=== PATIENT | female | born 1945 | race Caucasian/White ===

== ENCOUNTER 2017-02-16 13:35 | Emergency (ER) | payer OTHER, MEDICARE ==
[2017-02-16 13:44] VITALS: BP 121/67; PULSE 98; TEMP 98.1; BMI 47.0
--- NOTE | 2017-02-16 14:16 | PDOC ---
History of Present Illness <Debra CarcamoNikko - Last Filed: 02/16/17 14:48> <Gilmer Bose - Last Filed: 02/17/17 09:17> - General Chief Complaint: Injury Stated Complaint: LT HAND INJURY Time Seen by Provider: 02/16/17 14:08 Past History - Past Medical History Anemia: No Asthma: No Cancer: No Cardiac Disorders: Yes (ATRIAL FIBRILLATION) CVA: No COPD: Yes CHF: No Dementia: No Diabetes: No GI Disorders: No Disorders: No HTN: Yes Hypercholesterolemia: Yes Liver Disease: No Seizures: No Thyroid Disease: Yes (LEFT THYROID LUMP) - Surgical History Abdominal Surgery: No Appendectomy: No Cardiac Surgery: No Cholecystectomy: No Lung Surgery: No Neurologic Surgery: No Orthopedic Surgery: Yes (BILATERAL KNEE REPLACEMENT) - Immunization History Immunization Up to Date: No - Psycho/Social/Smoking Cessation Hx Anxiety: No Suicidal Ideation: No Smoking History: Former smoker Have you smoked in the past 12 months: No Number of Cigarettes Smoked Daily: 0 If you are a former smoker, when did you quit?: 11 YRS Cigars Per Day: 0 Information on smoking cessation initiated: No Hx Alcohol Use: No Drug/Substance Use Hx: No Substance Use Type: None Hx Substance Use Treatment: No <Debra CarcamoNikko - Last Filed: 02/16/17 14:48> <Gilmer Bose - Last Filed: 02/17/17 09:17> - Past Medical History Allergies/Adverse Reactions: Allergies Allergy/AdvReac Type Severity Reaction Status Date / Time Penicillins Allergy Severe Swelling Verified 02/16/17 13:44 Home Medications: Ambulatory Orders Ascorbate Calcium [Vitamin C] 1,000 mg PO DAILY 08/30/15 Cholecalciferol (Vitamin D3) [Vitamin D3] 1,000 unit PO BID 08/30/15 Cyanocobalamin [Vitamin B12 -] 1,000 mcg PO DAILY 08/30/15 Diltiazem [Cardizem -] 30 mg PO TID 08/30/15 Losartan Potassium 100 mg PO DAILY 08/30/15 Oxycodone/APAP [Percocet - Must Order Individual Components] 1 each NR QID PRN 08/30/15 Simvastatin 10 mg PO HS 08/30/15 Warfarin Na [Coumadin -] 10 mg PO ASDIR #0 08/30/15 *Physical Exam - Vital Signs Last Vital Signs Temp Pulse Resp BP Pulse Ox 98.1 F 98 H 20 121/67 97 02/16/17 13:41 02/16/17 13:41 02/16/17 13:41 02/16/17 13:41 02/16/17 13:41 <Ángel Carcamo - Last Filed: 02/16/17 14:48> - Vital Signs Last Vital Signs Temp Pulse Resp BP Pulse Ox 98.1 F 98 H 20 121/67 97 02/16/17 13:41 02/16/17 13:41 02/16/17 13:41 02/16/17 13:41 02/16/17 13:41 <Gilmer Bose - Last Filed: 02/17/17 09:17> Procedures - Laceration/Wound Repair Left Hand Wound Length: 2.6 to 5.0 cm Wound Explored: clean Wound's Depth, Shape: superficial Irrigated w/ Saline: Yes Anesthesia: 1% Lidocaine Amount of Anesthetic (ccs): 7 Wound Repaired With: Sutures Suture Size/Type: 5:0, nylon Number of Sutures: 13 Sterile Dressing Applied: Yes (bacitracin, xeroform, 4x4 and soft form) <Ángel Carcamo - Last Filed: 02/16/17 14:48> Medical Decision Making - Medical Decision Making 02/16/17 14:11 71 yo F, multiple comorbidities including afib on coumadin, recent INR was 3 as per pt, here w/ lac to dorsum of L hand after attempting to prevent spouse from falling this afternoon. Pt stable and in NAD w/ >3cm superficial lac to dorsum of L hand. No active bleeding at present -lac repair -tetanus UTD -wound check in 2 days 02/16/17 14:49 S/p lac repair. Pt discharged in stable conditions 02/16/17 14:51 <Ángel Carcamo - Last Filed: 02/16/17 14:48> - Medical Decision Making The patient was seen and evaluated in conjunction with JAMES Carcamo under my direct supervision, ancillary studies were reviewed. I agree with the plan as outlined by JAMES Carcamo . <Gilmer Bose - Last Filed: 02/17/17 09:17> *DC/Admit/Observation/Transfer <Ángel Carcamo - Last Filed: 02/16/17 14:48> <Gilmer Bose - Last Filed: 02/17/17 09:17> Diagnosis at time of Disposition: Hand laceration Qualifiers: Encounter type: initial encounter Foreign body presence: unspecified Laterality : left Qualified Code(s): S61.412A - Laceration without foreign body of left hand, initial encounter - Discharge Dispostion Disposition: HOME Condition at time of disposition: Good - Patient Instructions Printed Discharge Instructions: DI for Laceration Repair Additional Instructions: Keep wound covered and dry for 24 hrs. After that, you can let water run over wound daily to prevent excessive scabbing over suture knots. Apply bacitracin or neosporin to wound once a day until sutures are removed Return to ED in 48 hrs for redness, discharge or fever Sutures are removed in 7 days
== END 2017-02-16 14:59 | disposition home or self-care (01) ==
LOC: JER 13:35
PROC: 0HQGXZZ Repair Left Hand Skin, External Approach (ICD-10-PCS; principal; 2017-02-16)
DX: S61.412A Laceration without foreign body of left hand, initial encounter (principal); W51.XXXA Accidental striking against or bumped into by another person, initial encounter; Y93.F9 Activity, other caregiving; Y92.012 Bathroom of single-family (private) house as the place of occurrence of the external cause; Y99.8 Other external cause status; I48.91 Unspecified atrial fibrillation; Z79.01 Long term (current) use of anticoagulants; I10 Essential (primary) hypertension; J44.9 Chronic obstructive pulmonary disease, unspecified; E78.00 Pure hypercholesterolemia, unspecified
CPT/HCPCS: 12002-25; 99282-25

== ENCOUNTER 2017-02-23 12:24 | Emergency (ER) | payer OTHER, MEDICARE ==
[2017-02-23 12:48] VITALS: BP 107/55; PULSE 100; TEMP 97.6; BMI 40.7
--- NOTE | 2017-02-23 13:19 | PDOC ---
Suture Removal/Wound Check HPI - History of Present Illness Chief Complaint: Suture/Staple Removal(Here) Stated Complaint: STAPLE REMOVAL Time Seen by Provider: 02/23/17 12:47 History Source: Yes: Patient Exam Limitations: Yes: No Limitations Treated at: [facility] [place] [facility] Date of Last ED visit: 02/16/17 Past History - Past Medical History Allergies/Adverse Reactions: Allergies Penicillins Allergy (Severe, Verified 02/23/17 12:43) Swelling Home Medications: Ambulatory Orders Ascorbate Calcium [Vitamin C] 1,000 mg PO DAILY 08/30/15 Cholecalciferol (Vitamin D3) [Vitamin D3] 1,000 unit PO BID 08/30/15 Cyanocobalamin [Vitamin B12 -] 1,000 mcg PO DAILY 08/30/15 Diltiazem [Cardizem -] 30 mg PO TID 08/30/15 Losartan Potassium 100 mg PO DAILY 08/30/15 Oxycodone/APAP [Percocet - Must Order Individual Components] 1 each NR QID PRN 08/30/15 Simvastatin 10 mg PO HS 08/30/15 Warfarin Na [Coumadin -] 10 mg PO ASDIR #0 08/30/15 - Immunization History Immunizations Up to Date: No - Social History Smoking Status: Never smoked Number of Ciarettes Per Day: 0 Cigars Per Day: 0 Suture Removal/Wound Check PE - Physical Exam Laceration/Wound Check Symptoms: reports: Pain (mild) Comments: 02/23/17 22:45 left hand dorsal side with sutures intact healing well mild erythema around the edges of the wound will remove the sutures *Review of Systems - Review of Systems Able to Perform ROS?: Yes Constitutional: No: Symptoms Reported HEENTM: No: Symptoms Reported Respiratory: No: Symptoms reported Cardiac (ROS): No: Symptoms Reported ABD/GI: No: Symptoms Reported : No: Symptoms Reported Musculoskeletal: No: Symptoms Reported Integumentary: Yes: Symptoms Reported Procedures - Additional Procedures Progress: 02/23/17 22:44 left hand dorsal side with half sharpe shaped laceration healing well 10 sutures removed without diffuculty steri strips placed and bandage placed Medical Decision Making - Medical Decision Making 02/23/17 22:46 cc: suture removal left hand nv intact pain 3/10 sutures removed steri strips placed and bandage placed *DC/Admit/Observation/Transfer Diagnosis at time of Disposition: Visit for suture removal - Discharge Dispostion Disposition: HOME Condition at time of disposition: Improved - Referrals Referrals: Mike Boykin MD [Primary Care Provider] - - Patient Instructions Additional Instructions: keep dry the tape will peel off in about 3 days if it falls off before that is ok just put a bandaid over the wound apply a thin layer of bacitracin once a day follow with your primary care doctor next week as needed
== END 2017-02-23 13:19 | disposition home or self-care (01) ==
LOC: JERFT 12:24
DX: Z48.02 Encounter for removal of sutures (principal)
CPT/HCPCS: 99281-25

== ENCOUNTER 2017-06-20 13:35 | Inpatient (IN) | payer OTHER, MEDICARE ==
[2017-06-20 13:52] VITALS: BMI 46.3
--- NOTE | 2017-06-20 14:28 | PDOC ---
History of Present Illness - General Chief Complaint: Blood Pressure Problem Stated Complaint: RT LEG PAIN Time Seen by Provider: 06/20/17 14:27 - History of Present Illness Initial Comments: 06/20/17 15:59 72 year old female with PMH of Afib (on coumadin), OA, RA, Sjogren's , HTN, COPD , and venous insufficiency presenting with two and a half weeks of right lower extremity weeping, swelling, and erythema. She states that her right leg started becoming itchy and she was scratching it very frequently but then began becoming erythematous, swollen, and started weeping. She has been soaking through towels and sheets at home with non-bloody, non-malodorous, clear fluid. She does admit that she has not been eating as well as she usually does because she has been busy taking her to appointments but has been staying hydrated. She denies fevers, chills, nausea, vomiting, diarrhea, or sick symptoms. She has had an infection in the same leg before that she states was a staph infection that was not MRSA and needed what seems to be debridement. Her PCP is Dr. Workman. 06/20/17 16:30 06/20/17 16:49 Past History - Past Medical History Allergies/Adverse Reactions: Allergies Allergy/AdvReac Type Severity Reaction Status Date / Time Penicillins Allergy Severe Swelling Verified 06/20/17 13:52 Home Medications: Ambulatory Orders Ascorbate Calcium [Vitamin C] 1,000 mg PO DAILY 08/30/15 Cholecalciferol (Vitamin D3) [Vitamin D3] 1,000 unit PO BID 08/30/15 Cyanocobalamin [Vitamin B12 -] 1,000 mcg PO DAILY 08/30/15 Diltiazem [Cardizem -] 30 mg PO TID 08/30/15 Losartan Potassium 100 mg PO DAILY 08/30/15 Oxycodone/APAP [Percocet - Must Order Individual Components] 1 each NR QID PRN 08/30/15 Simvastatin 10 mg PO HS 08/30/15 Furosemide [Lasix -] 40 mg PO DAILY 06/20/17 Guaifenesin [Mucinex] 600 mg PO DAILY 06/20/17 Multivit-Min/FA/Lycopen/Lutein [Centrum Silver Tablet] 1 each PO DAILY 06/20/17 Potassium Chloride [Klor-Con 10] 10 meq PO DAILY 06/20/17 Warfarin Na [Coumadin -] 7 mg PO ASDIR 06/20/17 Anemia: No Asthma: No Cancer: No Cardiac Disorders: Yes (ATRIAL FIBRILLATION) CVA: No COPD: Yes CHF: No Dementia: No Diabetes: No GI Disorders: No Disorders: No HTN: Yes Hypercholesterolemia: Yes Liver Disease: No Seizures: No Thyroid Disease: Yes (LEFT THYROID LUMP) Other medical history: rheumatoid, osteoarthritis, osteopenia - Surgical History Abdominal Surgery: No Appendectomy: No Cardiac Surgery: No Cholecystectomy: No Lung Surgery: No Neurologic Surgery: No Orthopedic Surgery: Yes (BILATERAL KNEE REPLACEMENT) - Immunization History Immunization Up to Date: No - Psycho/Social/Smoking Cessation Hx Anxiety: No Suicidal Ideation: No Smoking History: Former smoker Have you smoked in the past 12 months: No Number of Cigarettes Smoked Daily: 0 If you are a former smoker, when did you quit?: 1985 Cigars Per Day: 0 Information on smoking cessation initiated: No Hx Alcohol Use: No Drug/Substance Use Hx: No Substance Use Type: None Hx Substance Use Treatment: No Review of Systems - Review of Systems Constitutional: Yes: Loss of Appetite. No: Chills, Diaphoresis, Fever HEENTM: No: Blurred Vision, Recent change in vision, Double Vision Respiratory: Yes: SOB with Exertion. No: Cough, Orthopnea, Shortness of Breath Cardiac (ROS): Yes: Edema, Irregular Heart Rate. No: Chest Pain ABD/GI: Yes: Poor Appetite. No: Abdominal Distended, Constipated, Diarrhea, Nausea, Vomiting, Indigestion : Yes: Frequency, Other (urge incontinence at baseline). No: Dysuria, Discharge Integumentary: Yes: Change in Color, Lesions Neurological: No: Headache, Numbness, Paresthesia, Tingling Endocrine: No: Excessive Sweating, Flushing *Physical Exam - Vital Signs Last Vital Signs Temp Pulse Resp BP Pulse Ox 97.8 F 110 H 20 80/54 94 L 06/20/17 13:37 06/20/17 13:37 06/20/17 13:37 06/20/17 13:37 06/20/17 13:37 - Physical Exam General Appearance: Yes: Nourished, Appropriately Dressed. No: Apparent Distress HEENT: positive: EOMI, JOSIE, Normal ENT Inspection, Normal Voice Neck: positive: Trachea midline, Normal Thyroid, Supple. negative: Tender, Rigid Respiratory/Chest: positive: Lungs Clear. negative: Chest Tender, Normal Breath Sounds (Delayed expiratory phase but no ) Cardiovascular: positive: Regular Rhythm, Regular Rate, Edema, JVD (JVD to the mid neck). negative: S1, S2, Murmur Gastrointestinal/Abdominal: positive: Normal Bowel Sounds, Flat, Soft. negative : Tender, Organomegaly, Pulsatile Mass Musculoskeletal: positive: Other (Leg changes per skin exam section). negative : Normal Inspection, CVA Tenderness Integumentary: positive: Erythema, Rash, Swelling, Other (BL LE exhibiting signifcant swelling with 1-2+ pitting edema. RLE with 2 + pitting edema, erythema, and significant dependent weeping in the calf) Neurologic: positive: Fully Oriented, Alert. negative: Motor Strength 5/5 ( Lower extremity limited range secondary to pain. ) ED Treatment Course - LABORATORY CBC & Chemistry Diagram: 06/20/17 14:54 06/20/17 14:54 Medical Decision Making - Medical Decision Making 72 year old female with complicated medical including venous insufficiency history presenting with weeping RLE wound concerning for cellulitis in the setting of tachycardia and hypotension. Although this is most concernign for cellulitis, this could quite possibly be advancement of her venous insuficiency on top of some overall vascular congestion/ CHF given her elevated JVP/ JVD and bilateral leg swelling. She has also admitted to decreased PO intake lately in the setting of recent life stressors. Given her history of RLE infection requiring debridement, she should be admitted for IV antibiotic treatment after blood cultures are obtained. 06/20/17 16:10 06/20/17 21:31 CBC WNL, repeat vitals pending, Lactic Acid WNL, started on Clindamycin and admitted to Dr. De La Fuente. 06/20/17 21:50 *DC/Admit/Observation/Transfer Diagnosis at time of Disposition: Cellulitis - Discharge Dispostion Condition at time of disposition: Stable Admit: Yes - Attestations Physician Attestion: 06/20/17 21:51 I, Dr. Elinor Bernardo, attest that this document has been prepared under my direction and personally reviewed by me in its entirety. I further attest, that it accurately reflects all work, treatment, procedures and medical decision -making performed by me.
[2017-06-20 15:07] LABS: BASOPHIL 0.6 % (0-2.0); EOSINOPHIL 3.5 % (0-4.5); MCH 28.4 pg (25.7-33.7); MCHC 32.2 g/dl (32.0-36.0); MEAN CELL VOLUME 88.2 fl (80-96); MEAN PLT VOLUME 7.9 fl (7.5-11.1); NEUTROPHILS 72.1 % (42.8-82.8); PLATELET COUNT 247 K/MM3 (134-434); WHITE BLOOD COUNT 7.7 K/mm3 (4.0-10.0)
[2017-06-20 15:33] LABS: ALBUMIN 3.1 g/dl (3.4-5.0); ANION GAP 6 (8-16); BILIRUBIN,TOTAL 0.4 mg/dL (0.2-1.0); CALCIUM 8.2 mg/dL (8.5-10.1); CO2 30 mmol/L (21-32); CREATININE 0.8 mg/dL (0.55-1.02); GLUCOSE,RANDOM 92 mg/dL (74-106); SGOT/AST 24 U/L (15-37); SGPT/ALT 24 U/L (12-78); TOT PROT 6.1 g/dl (6.4-8.2)
[2017-06-20 15:35] LABS: ALK PHOS 119 U/L (45-117)
[2017-06-20] MEDS ORDERED: SODIUM CHLORIDE 0.9% 1000 ML INFUS.BAG IV ONE (15:55)
--- NOTE | 2017-06-20 16:34 | PDOC ---
Attending Attestation - Resident Resident Name: Elinor Bernardo - ED Attending Attestation I have performed the following: I have examined & evaluated the patient, The case was reviewed & discussed with the resident, I agree w/resident's findings & plan, Exceptions are as noted - HPI HPI: 06/20/17 16:31 Agree with the resident's HPI as documented in the electronic medical record. - Physicial Exam PE: 06/20/17 16:32 Agree with the resident's physical examination as documented in the electronic medical record. - Medical Decision Making 06/20/17 16:32 72-year-old female with history of Sjogren's disease, rheumatoid arthritis, atrial fibrillation and hyperlipidemia who presents to the emergency Department with complaints of 2 week history of pain and erythema as well as weeping from the right lower extremity. She is hypotensive in the emergency department with a heart rate of 110 in A. fib. Differential diagnosis includes but is not limited to: Cellulitis, DVT, sepsis, dehydration, toxic/metabolic derangement. Plan: 1. Labs 2. Plain film to rule out air in the soft tissue 3. Culture 4. IV fluid hydration 5. Pain management 6. Admit 7. Observe and reevaluate
[2017-06-20] MEDS ORDERED: OXYCODONE/APAP 5/325MG COMBO TABLET PO STA (16:57)
[2017-06-20] MEDS ORDERED: OXYCODONE/APAP 5/325MG COMBO TABLET ONE (17:08)
[2017-06-20] MEDS ORDERED: CLINDAMYCIN 600MG PREMIX IVPB 50 ML IVPB SCH (18:00)
[2017-06-20] MEDS ORDERED: CLINDAMYCIN 600MG PREMIX IVPB 50 ML IVPB ONE (18:06)
[2017-06-20] MEDS ORDERED: WARFARIN NA 5 MG TABLET (UD) PO SCH (21:15)
[2017-06-20] MEDS ORDERED: WARFARIN NA 5 MG TABLET (UD) ONE (21:25)
[2017-06-20] MEDS ORDERED: WARFARIN NA 1 MG TABLET (FP) ONE (21:25)
--- NOTE | 2017-06-20 21:51 | PN ---
Teaching Attending Note Name of Resident: Danna Mireles ATTENDING PHYSICIAN STATEMENT I saw and evaluated the patient. I reviewed the resident's note and discussed the case with the resident. I agree with the resident's findings and plan as documented. SUBJECTIVE: Presented to ED c/o RLE swelling and serous drainage overnight. OBJECTIVE: Morbidly obese, irritated. CVS: RRR, S1, S2 Lungs: CTA Abd: Obese, BS+ Ext: RLE- venous stasis dermatitis with serous drainage and tender to palpation. LLE chronic venous stasis dermatitis. CBCD WBC 7.7 K/mm3 (4.0-10.0) D 06/20/17 14:54 RBC 4.96 M/mm3 (3.60-5.2) 06/20/17 14:54 Hgb 14.1 GM/dL (10.7-15.3) 06/20/17 14:54 Hct 43.8 % (32.4-45.2) 06/20/17 14:54 MCV 88.2 fl (80-96) 06/20/17 14:54 MCHC 32.2 g/dl (32.0-36.0) 06/20/17 14:54 RDW 14.0 % (11.6-15.6) 06/20/17 14:54 Plt Count 247 K/MM3 (134-434) D 06/20/17 14:54 MPV 7.9 fl (7.5-11.1) D 06/20/17 14:54 CMP Sodium 140 mmol/L (136-145) 06/20/17 14:54 Potassium 4.5 mmol/L (3.5-5.1) 06/20/17 14:54 Chloride 104 mmol/L (98-107) 06/20/17 14:54 Carbon Dioxide 30 mmol/L (21-32) 06/20/17 14:54 Anion Gap 6 (8-16) L 06/20/17 14:54 BUN 25 mg/dL (7-18) H D 06/20/17 14:54 Creatinine 0.8 mg/dL (0.55-1.02) 06/20/17 14:54 Creat Clearance w eGFR > 60 (>60) 06/20/17 14:54 Random Glucose 92 mg/dL (74-106) 06/20/17 14:54 Calcium 8.2 mg/dL (8.5-10.1) L 06/20/17 14:54 Total Bilirubin 0.4 mg/dL (0.2-1.0) D 06/20/17 14:54 AST 24 U/L (15-37) 06/20/17 14:54 ALT 24 U/L (12-78) 06/20/17 14:54 Alkaline Phosphatase 119 U/L (45-117) H D 06/20/17 14:54 Total Protein 6.1 g/dl (6.4-8.2) L 06/20/17 14:54 Albumin 3.1 g/dl (3.4-5.0) L 06/20/17 14:54 ASSESSMENT AND PLAN: Chronic venous insufficiency without ulcers but with chronic cellulitis and serous drainaged Compression dressing, change q6-8h elevate legs no indication for antibiotics Patient has appointment with wound care on Saturday Social work consult for home help and possible VNS for dressing change as patient is limited by her body habitus. Hypotension with h/o HTN hold BP medications Lasix 40mg daily if SBP>120
[2017-06-20] MEDS ORDERED: dilTIAZem HCL 30 MG TABLET (FP) PO SCH (22:00)
[2017-06-20] MEDS ORDERED: WARFARIN NA 5 MG, WARFARIN NA 2 MG PO SCH (22:00)
--- NOTE | 2017-06-20 22:07 | HP ---
CHIEF COMPLAINT: Right leg swelling and drainage PCP: Dr. Workman HISTORY OF PRESENT ILLNESS: 72yo woman with PMH of Afib (on Coumadin), OA, RA, Sjogren's syndrome, HTN, COPD , and chronic venous insufficiency without ulcerations who presents with worsening cellutitis of R LE. The patient states that her R leg has gradually become erythematous and swollen. She has noticed increasing clear, "pee-colored " drainage over the past few days, but denies any malodor or purulency. She has had difficulty with sufficiently cleaning and maintaining the wound. She has an appointment with Wound Care on Saturday, but decided to come to the ED this evening due to increase serous drainage. She reports have a She denies any LE ulceration, but does report having cellulitis of RLE in the past that was Staph positive. Patient denies fever, chills, nausea, vomitting. No SOB, chest pain, pressure. No dysuria. ER course was notable for: (1) received 1x dose Clindamycin Recent Travel: no PAST MEDICAL HISTORY: -Afib -RA - postive RF -OA, hip b/l -Fibromyalgia -Sjogren's syndrome -HTN -COPD -sleep apnea - on CPAP PAST SURGICAL HISTORY: b/l knee replacement - 2006 Social History: Smoking: quit in 1984 Alcohol: no Drugs: no Family History: non-contributory Allergies: Penicillins Allergy (Severe, Verified 06/20/17 13:52) --> swelling HOME MEDICATIONS: Home Medications Medication Instructions Recorded Ascorbate Calcium [Vitamin C] 1,000 mg PO DAILY 08/30/15 Cholecalciferol (Vitamin D3) 1,000 unit PO BID 08/30/15 [Vitamin D3] Cyanocobalamin [Vitamin B12 -] 1,000 mcg PO DAILY 08/30/15 Diltiazem [Cardizem -] 30 mg PO TID 08/30/15 Losartan Potassium 100 mg PO DAILY 08/30/15 Oxycodone/APAP [Percocet - Must 1 each NR QID PRN 08/30/15 Order Individual Components] Simvastatin 10 mg PO HS 08/30/15 Furosemide [Lasix -] 40 mg PO DAILY 06/20/17 Guaifenesin [Mucinex] 600 mg PO DAILY 06/20/17 Multivit-Min/FA/Lycopen/Lutein 1 each PO DAILY 06/20/17 [Centrum Silver Tablet] Potassium Chloride [Klor-Con 10] 10 meq PO DAILY 06/20/17 Warfarin Na [Coumadin -] 7 mg PO ASDIR 06/20/17 REVIEW OF SYSTEMS CONSTITUTIONAL: Absent: fever, chills, diaphoresis, generalized weakness, malaise, loss of appetite, weight change HEENT: Absent: rhinorrhea, nasal congestion, throat pain, throat swelling, difficulty swallowing, mouth swelling, ear pain, eye pain, visual changes CARDIOVASCULAR: +lightheadedness, peripheral edema Absent: chest pain, syncope, palpitations, irregular heart rate, lightheadedness , peripheral edema RESPIRATORY: Absent: cough, shortness of breath, dyspnea with exertion, orthopnea, wheezing, stridor, hemoptysis GASTROINTESTINAL: Absent: abdominal pain, abdominal distension, nausea, vomiting, diarrhea, constipation, melena, hematochezia GENITOURINARY: Absent: dysuria, frequency, urgency, hesitancy, hematuria, flank pain, genital pain MUSCULOSKELETAL: Absent: myalgia, arthralgia, joint swelling, back pain, neck pain SKIN: +R LE wound Absent: rash, itching, pallor HEMATOLOGIC/IMMUNOLOGIC: Absent: easy bleeding, easy bruising, lymphadenopathy, frequent infections ENDOCRINE: Absent: unexplained weight gain, unexplained weight loss, heat intolerance, cold intolerance NEUROLOGIC: Absent: headache, focal weakness or paresthesias, dizziness, unsteady gait, seizure, mental status changes, bladder or bowel incontinence PSYCHIATRIC: Absent: anxiety, depression, suicidal or homicidal ideation, hallucinations. PHYSICAL EXAMINATION Vital Signs - 24 hr 06/20/17 06/20/17 06/20/17 13:37 14:45 15:39 Temperature 97.8 F Pulse Rate 110 H Pulse Rate [ Right Radial] Respiratory 20 Rate Blood Pressure 80/54 Blood Pressure 96/74 [Left Arm] O2 Sat by Pulse 94 L 97 Oximetry (%) 06/20/17 06/20/17 22:19 23:00 Temperature 97.4 F L 97.8 F Pulse Rate 100 H Pulse Rate [ 93 H Right Radial] Respiratory 20 20 Rate Blood Pressure 106/54 Blood Pressure 99/57 [Left Arm] O2 Sat by Pulse 97 94 L Oximetry (%) GENERAL: Awake, alert, and fully oriented, in no acute distress. HEAD: Normal with no signs of trauma. EYES: PERRLA, EOMI, sclera anicteric, conjunctiva clear EARS, NOSE, THROAT: Oropharynx clear without exudates. Moist mucous membranes. NECK: supple, no cervical LAD LUNGS: CTAB, no wheezes, and no crackles HEART: distant heart sounds, RRR, normal S1 and S2 without murmur, rub or gallop. ABDOMEN: Obese, soft, NTND LOWER EXTREMITIES: bilateral venous stasis dermatitis and 2+ pitting edema, RLE with serous drainage and ttp NEUROLOGICAL: Grossly intact, but not formally tested. Normal speech PSYCHIATRIC: Cooperative. Good eye contact. Appropriate mood and affect. SKIN: Warm, dry, normal turgor Laboratory Results - last 24 hr 06/20/17 06/20/17 06/20/17 14:54 14:54 15:59 WBC 7.7 D RBC 4.96 Hgb 14.1 Hct 43.8 MCV 88.2 MCH 28.4 MCHC 32.2 RDW 14.0 Plt Count 247 D MPV 7.9 D Neutrophils % 72.1 D Lymphocytes % 13.7 D Monocytes % 10.1 Eosinophils % 3.5 Basophils % 0.6 Sodium 140 Potassium 4.5 Chloride 104 Carbon Dioxide 30 Anion Gap 6 L BUN 25 H D Creatinine 0.8 Creat Clearance w eGFR > 60 Random Glucose 92 Lactic Acid 1.2 Calcium 8.2 L Total Bilirubin 0.4 D AST 24 ALT 24 Alkaline Phosphatase 119 H D B-Natriuretic Peptide 1202.38 H Total Protein 6.1 L Albumin 3.1 L CXR 06/21/17: Preliminary assessment - cardiomegaly, possible congestive changes. Awaiting final report. EKG : ASSESSMENT/PLAN: 72yo morbidly obese woman (BMI 46) with PMH of Afib (on Coumadin), COPD, HTN, and chronic venous insufficiency with h/o cellulitis who presents with RLE serous drainage, found to be hypotensive, and admitted for observation for further monitoring and management. #Chronic venous insufficiency with serous drainage -Compression dressing, change q6-8h -Maintain leg elevation -No further abx required -Pt to go to Wound care appt on 06/24 -Consult Social work for VNS services for wound dressing change (patient limited by body habitus) -Blood Cx pending -Placed on Contact precaution until MRSA r/o #hypotension with h/o HTN -NS 250cc bolus -BP checks q4h -Fall risk precautions -Hold home BP meds (diltiazem, losartan) -Resume Lasix if SBP>120 -ECHO ordered #Morbid Obesity -Hgb A1c pending #Afib -Continue home Coumadin 7mg PO daily #F/E/N -Consider additional IVF bolus if remains hypotensive -Electrolytes wnl -Na restricted diet #Dispo -Admit for observation -Social work assessment for VNS qualification d/w Dr. Chang and medical team SOFI SMART MD PGY-1 Visit type - Emergency Visit Emergency Visit: Yes ED Registration Date: 06/20/17 Care time: The patient presented to the Emergency Department on the above date and was hospitalized for further evaluation of their emergent condition. - New Patient This patient is new to me today: Yes Date on this admission: 06/20/17 - Critical Care Critical Care patient: No
[2017-06-20] MEDS: ATORVASTATIN CA 10 MG TABLET (FP) PO SCH (22:08)
[2017-06-20] MEDS ORDERED: SODIUM CHLORIDE 250 ML IV STA (22:14)
[2017-06-21] MEDS ORDERED: ACETAMINOPHEN 325 MG TABLET (FP) PO ONE ×2 (00:56→08:15)
[2017-06-21] MEDS ORDERED: oxyCODONE HCL 5 MG TABLET PO ONE (08:15)
[2017-06-21 08:35] LABS: PROTHROMBIN TIME (PATIENT) 59.2 SEC (9.98-11.88)
[2017-06-21 08:38] LABS: ACTIVATED PTT 64.4 SECONDS (26.9-34.4)
[2017-06-21 08:49] LABS: INR 5.2 (0.82-1.09)
--- NOTE | 2017-06-21 09:22 | EKG ---
Test Reason : Blood Pressure : / mmHG Vent. Rate : 100 BPM Atrial Rate : 081 BPM P-R Int : 000 ms QRS Dur : 088 ms QT Int : 356 ms P-R-T Axes : 000 042 023 degrees QTc Int : 459 ms ATRIAL FIBRILLATION ABNORMAL ECG WHEN COMPARED WITH ECG OF 17-NOV-2015 17:06, ST NO LONGER DEPRESSED IN LATERAL LEADS NONSPECIFIC T WAVE ABNORMALITY NO LONGER EVIDENT IN LATERAL LEADS Confirmed by ABRAHAM REYES, EFRAIN ([id number] on 06/21/2017 9:22:23 AM Referred By: Confirmed By:EFRAIN ROSARIO MD
[2017-06-21] MEDS ORDERED: FUROSEMIDE 40 MG TABLET (FP) PO SCH (10:00)
[2017-06-21] MEDS ORDERED: LOSARTAN POTASSIUM 50 MG TABLET (FP) PO SCH (10:00)
--- NOTE | 2017-06-21 10:45 | CON.CARD ---
Cardiology Consult (text) - Consultation Consultation Note: - History of Present Illness Chief Complaint: came to ER for social work eval for help at home History of Present Illness: 72 yo female who came to ER for social work eval for help at home she says she has chronic le edema, erythema, weeping and says this is stable she has no new sxs and denies sob, cp, palps, dizzy, loc, pnd, orthopnea she is refusing any further inpt testing/meds and says now that her home services are set up she is leaving in [address] adams for cardio PMH: morbid obesity severe DJD/OA HTN HPL GERD - Alcohol/Substance Use Hx Alcohol Use: No - Smoking History Smoking history: Never smoked Have you smoked in the past 12 months: No Aproximately how many cigarettes per day: 0 Home Medications - Allergies Allergies/Adverse Reactions: Allergies Allergy/AdvReac Type Severity Reaction Status Date / Time Penicillins Allergy Severe Swelling Verified 06/20/17 13:52 - Home Medications Home Medications: Ambulatory Orders Home Medications Medication Instructions Recorded Ascorbate Calcium [Vitamin C] 1,000 mg PO DAILY 08/30/15 Cholecalciferol (Vitamin D3) 1,000 unit PO BID 08/30/15 [Vitamin D3] Cyanocobalamin [Vitamin B12 -] 1,000 mcg PO DAILY 08/30/15 Diltiazem [Cardizem -] 30 mg PO TID 08/30/15 Losartan Potassium 100 mg PO DAILY 08/30/15 Oxycodone/APAP [Percocet - Must 1 each NR QID PRN 08/30/15 Order Individual Components] Simvastatin 10 mg PO HS 08/30/15 Furosemide [Lasix -] 40 mg PO DAILY 06/20/17 Guaifenesin [Mucinex] 600 mg PO DAILY 06/20/17 Multivit-Min/FA/Lycopen/Lutein 1 each PO DAILY 06/20/17 [Centrum Silver Tablet] Potassium Chloride [Klor-Con 10] 10 meq PO DAILY 06/20/17 Warfarin Na [Coumadin -] 7 mg PO ASDIR 06/20/17 Vital Signs: Vital Signs Period Temp Pulse Resp BP Sys/William Pulse Ox Last 24 Hr 97.4 F-98.7 F 93-130 20-20 80-121/54-74 94-97 - Other Data Labs, Other Data: Laboratory Last Values WBC 7.7 K/mm3 (4.0-10.0) D 06/20/17 14:54 RBC 4.96 M/mm3 (3.60-5.2) 06/20/17 14:54 Hgb 14.1 GM/dL (10.7-15.3) 06/20/17 14:54 Hct 43.8 % (32.4-45.2) 06/20/17 14:54 MCV 88.2 fl (80-96) 06/20/17 14:54 MCH 28.4 pg (25.7-33.7) 06/20/17 14:54 MCHC 32.2 g/dl (32.0-36.0) 06/20/17 14:54 RDW 14.0 % (11.6-15.6) 06/20/17 14:54 Plt Count 247 K/MM3 (134-434) D 06/20/17 14:54 MPV 7.9 fl (7.5-11.1) D 06/20/17 14:54 Neutrophils % 72.1 % (42.8-82.8) D 06/20/17 14:54 Lymphocytes % 13.7 % (8-40) D 06/20/17 14:54 Monocytes % 10.1 % (3.8-10.2) 06/20/17 14:54 Eosinophils % 3.5 % (0-4.5) 06/20/17 14:54 Basophils % 0.6 % (0-2.0) 06/20/17 14:54 INR 5.20 (0.82-1.09) H* D 06/21/17 07:45 PTT (Actin FS) 64.4 SECONDS (26.9-34.4) H 06/21/17 07:45 Sodium 140 mmol/L (136-145) 06/20/17 14:54 Potassium 4.5 mmol/L (3.5-5.1) 06/20/17 14:54 Chloride 104 mmol/L (98-107) 06/20/17 14:54 Carbon Dioxide 30 mmol/L (21-32) 06/20/17 14:54 Anion Gap 6 (8-16) L 06/20/17 14:54 BUN 25 mg/dL (7-18) H D 06/20/17 14:54 Creatinine 0.8 mg/dL (0.55-1.02) 06/20/17 14:54 Creat Clearance w eGFR > 60 (>60) 06/20/17 14:54 Random Glucose 92 mg/dL (74-106) 06/20/17 14:54 Hemoglobin A1c % 6.0 % (4.8-6.0) 06/21/17 07:45 Lactic Acid 1.2 mmol/L (0.4-2.0) 06/20/17 15:59 Calcium 8.2 mg/dL (8.5-10.1) L 06/20/17 14:54 Total Bilirubin 0.4 mg/dL (0.2-1.0) D 06/20/17 14:54 AST 24 U/L (15-37) 06/20/17 14:54 ALT 24 U/L (12-78) 06/20/17 14:54 Alkaline Phosphatase 119 U/L (45-117) H D 06/20/17 14:54 B-Natriuretic Peptide 1202.38 pg/ml (5-125) H 06/20/17 14:54 Total Protein 6.1 g/dl (6.4-8.2) L 06/20/17 14:54 Albumin 3.1 g/dl (3.4-5.0) L 06/20/17 14:54 ecg 06/20/17: afib, vr 100, nl qtc, no ischemic changes cxr: ?chf Assessment/Plan HTN: -bp occasionally on low side -pt reports that she has been on her current med regimen as outpt for years w/o issues -cont home meds chronic Afib: -rate controlled on current meds (of note pt is refusing to take her home meds now, says she will take when gets home soon) -cont coumadin per INR HPL: -cont statin venous insuff/le edema: -chronic condition, stable per pt -she is currently refusing any inpt treatment or testing -cont home po lasix -?ID consult if pt allows pt says she is leaving this AM, outpt f/u with dr adams for cardio
[2017-06-21] MEDS: MULTIVITAMINS THER W-MINERALS COMBO TABLET (FP) PO SCH (10:51)
[2017-06-21] MEDS: guaiFENesin 600 MG TABLET.ER (FP) PO SCH (10:51)
[2017-06-21] MEDS: POTASSIUM CHLORIDE TABS 10 MEQ TABLET.ER (FP) PO SCH (10:53)
[2017-06-21] MEDS ORDERED: CLINDAMYCIN 600MG PREMIX IVPB 50 ML IVPB SCH (11:30)
--- NOTE | 2017-06-21 11:34 | PN ---
Progress Note (short form) - Note Progress Note: ID consult dictated imp/reccd 72 year old female admitted from home with 2 weeks of progressive erythema and serous drainage from her RLE no fevers +venous stasis history of RA and Sjogren but on no meds at this time severe pen allergy - Blows up cellulitis of RLE with venous stasis clindamycin/probiotics cultures Dr santos to see hopefully home in am patient agreeable to this plan d/w Dr Griffith Problem List - Problems (1) Cellulitis Code(s): L03.90 - CELLULITIS, UNSPECIFIED (2) Penicillin allergy Code(s): Z88.0 - ALLERGY STATUS TO PENICILLIN
[2017-06-21] MEDS: LACTOBACILLUS ACIDOPHILUS 1 EACH TAB (FP) PO SCH ×2 (12:13→21:29)
--- NOTE | 2017-06-21 13:45 | PN ---
Progress Note, Physician Chief Complaint: Mrs Torres complains of headache and constipation. Also says she has a developing rash but refuses to show me (patient prefers to be examined by a female physician) - Current Medication List Current Medications: Active Medications Atorvastatin Calcium (Lipitor -) 10 mg PO HS [facility] Last Admin: 06/20/17 22:08 Dose: 10 mg Guaifenesin (Mucinex -) 600 mg PO DAILY [facility] Last Admin: 06/21/17 10:51 Dose: 600 mg Clindamycin Phosphate (Cleocin 600 Mg Premix Ivpb -) 50 mls @ 100 mls/hr IVPB Q8H-IV BELL Lactobacillus Acidophilus (Bacid -) 1 tab PO BID [facility] Last Admin: 06/21/17 12:13 Dose: 1 tab Multivitamins/Minerals (Theragran-M) 1 each PO DAILY [facility] Last Admin: 06/21/17 10:51 Dose: 1 each Potassium Chloride (K-Dur -) 10 meq PO DAILY [facility] Last Admin: 06/21/17 10:53 Dose: Not Given - Objective Vital Signs: Vital Signs Temperature 98.7 F 06/21/17 09:00 Pulse Rate 130 H 06/21/17 09:00 Respiratory Rate 20 06/21/17 09:00 Blood Pressure 121/65 06/21/17 09:00 O2 Sat by Pulse Oximetry (%) 94 L 06/20/17 23:00 Constitutional: Yes: No Distress, Calm, Obese Cardiovascular: Yes: Pulse Irregular. No: Tachycardia, Gallop, Murmur, Rub Respiratory: Yes: Regular, CTA Bilaterally. No: Rales, Rhonchi, Wheezes Gastrointestinal: Yes: Normal Bowel Sounds, Soft. No: Distention, Tenderness Extremities: Yes: WNL Edema: No Labs: INR, PTT INR 5.20 (0.82-1.09) H* D 06/21/17 07:45 Problem List - Problems (1) Cellulitis Assessment/Plan: -patient presents with cellulitis -seen by ID, on clindamycin -worsening rash, patient requesting Dr Fraga to return to evaluate Code(s): L03.90 - CELLULITIS, UNSPECIFIED (2) HTN (hypertension) Assessment/Plan: -low normal -monitor Code(s): I10 - ESSENTIAL (PRIMARY) HYPERTENSION (3) Atrial fibrillation Assessment/Plan: -supratherapeutic INR -cardiology following and managing Code(s): I48.91 - UNSPECIFIED ATRIAL FIBRILLATION Qualifiers: Atrial fibrillation type: chronic Qualified Code(s): I48.2 - Chronic atrial fibrillation (4) Supratherapeutic INR Assessment/Plan: -hold coumadin Code(s): R79.1 - ABNORMAL COAGULATION PROFILE (5) Drug rash Assessment/Plan: -suspect drug rash -ID to come evaluate per patient request Code(s): L27.0 - GEN SKIN ERUPTION DUE TO DRUGS AND MEDS TAKEN INTERNALLY (6) Obesity hypoventilation syndrome Assessment/Plan: -continue CPAP Code(s): E66.2 - MORBID (SEVERE) OBESITY WITH ALVEOLAR HYPOVENTILATION
[2017-06-21] MEDS: ACETAMINOPHEN 325 MG TABLET (FP) PO PRN ×2 (14:12→21:29)
[2017-06-21] MEDS: POLYETHYLENE GLYCOL 3350 119 GM BTL PO SCH ×2 (14:16→21:30)
[2017-06-21] MEDS ORDERED: diphenhydrAMINE HCL 25 MG CAPSULE (FP) PO PRN (14:57)
[2017-06-21] MEDS: VANCOMYCIN 1,250 MG in DEXTROSE 5%-WATER - 250 ML IVPB SCH (17:00)
--- NOTE | 2017-06-21 17:05 | CONSULT ---
Consult - Alcohol/Substance Use Hx Alcohol Use: No - Smoking History Smoking history: Former smoker Have you smoked in the past 12 months: No Aproximately how many cigarettes per day: 0 If you are a former smoker, when did you quit?: 1984 Home Medications - Allergies Allergies/Adverse Reactions: Allergies Allergy/AdvReac Type Severity Reaction Status Date / Time Penicillins Allergy Severe Swelling Verified 06/20/17 13:52 clindamycin Allergy Mild Rash Verified 06/21/17 14:52 - Home Medications Home Medications: Ambulatory Orders Ascorbate Calcium [Vitamin C] 1,000 mg PO DAILY 08/30/15 Cholecalciferol (Vitamin D3) [Vitamin D3] 1,000 unit PO BID 08/30/15 Cyanocobalamin [Vitamin B12 -] 1,000 mcg PO DAILY 08/30/15 Diltiazem [Cardizem -] 30 mg PO TID 08/30/15 Losartan Potassium 100 mg PO DAILY 08/30/15 Oxycodone/APAP [Percocet - Must Order Individual Components] 1 each NR QID PRN 08/30/15 Simvastatin 10 mg PO HS 08/30/15 Furosemide [Lasix -] 40 mg PO DAILY 06/20/17 Guaifenesin [Mucinex] 600 mg PO DAILY 06/20/17 Multivit-Min/FA/Lycopen/Lutein [Centrum Silver Tablet] 1 each PO DAILY 06/20/17 Potassium Chloride [Klor-Con 10] 10 meq PO DAILY 06/20/17 Warfarin Na [Coumadin -] 7 mg PO ASDIR 06/20/17 Physical Exam Vital Signs: Vital Signs Temperature 98.2 F 06/21/17 15:28 Pulse Rate 128 H 06/21/17 15:28 Respiratory Rate 20 06/21/17 15:28 Blood Pressure 102/51 06/21/17 15:28 O2 Sat by Pulse Oximetry (%) 94 L 06/20/17 23:00 Assessment/Plan VAscular Surgery 72 year old female with PMH of Afib (on coumadin), OA, RA, Sjogren's , HTN, COPD , and venous insufficiency presenting with two and a half weeks of right lower extremity weeping, swelling, and erythema. She states that her right leg started becoming itchy and she was scratching it very frequently but then began becoming erythematous, swollen, and started weeping. She has been soaking through towels and sheets at home with non-bloody, non-malodorous, clear fluid. She does admit that she has not been eating as well as she usually does because she has been busy taking her to appointments but has been staying hydrated. She denies fevers, chills, nausea, vomiting, diarrhea, or sick symptoms. She has had an infection in the same leg before that she states was a staph infection that was not MRSA and needed what seems to be debridement. Her PCP is Dr. Workman. PE Head - NC/At Lung - CTA Heart - RRR abd - soft,nt,nd ext - warm, pink. Venous stasis changes to funes. Weeping from right ankle. A/P Bilateral lower ext venous stasis. Weeping from RLE 1. Compression with PITER bandages from foot to knee. 2. pt needs to come to vascular/wound care clinic on saturday . Can then do reflux studies, laser therapy to veins to cure pt. Please make appt prior to DC -- [phone] Jose santos dO
--- NOTE | 2017-06-21 17:43 | HOSP ---
Physical Examination Vital Signs: Vital Signs Temperature 98.2 F 06/21/17 15:28 Pulse Rate 128 H 06/21/17 15:28 Respiratory Rate 20 06/21/17 15:28 Blood Pressure 102/51 06/21/17 15:28 O2 Sat by Pulse Oximetry (%) 94 L 06/20/17 23:00 Hospitalist Encounter Assessment: Called by RN for difficult IV access. 22g IV catheter placed left hand. Please re-call if needed.
[2017-06-21] MEDS: DOCUSATE SODIUM 100 MG CAPSULE (FP) PO SCH (21:29)
[2017-06-21] MEDS: ATORVASTATIN CA 10 MG TABLET (FP) PO SCH (21:44)
--- NOTE | 2017-06-21 21:53 | HOSP ---
Subjective - Review of Symptoms Events since last encounter: Called by the nurse that patient has a hx Afib. on Cardizem po 30mg tid at home will continue, will give 1st dose now. will recheck vitals post cardizem( 1 hour post) Vital Signs Temperature 98.1 F 06/21/17 19:00 Pulse Rate 127 H 06/21/17 19:00 Respiratory Rate 20 06/21/17 19:00 Blood Pressure 102/70 06/21/17 19:00 O2 Sat by Pulse Oximetry (%) 92 L 06/21/17 13:00 CBCD WBC 7.7 K/mm3 (4.0-10.0) D 06/20/17 14:54 RBC 4.96 M/mm3 (3.60-5.2) 06/20/17 14:54 Hgb 14.1 GM/dL (10.7-15.3) 06/20/17 14:54 Hct 43.8 % (32.4-45.2) 06/20/17 14:54 MCV 88.2 fl (80-96) 06/20/17 14:54 MCHC 32.2 g/dl (32.0-36.0) 06/20/17 14:54 RDW 14.0 % (11.6-15.6) 06/20/17 14:54 Plt Count 247 K/MM3 (134-434) D 06/20/17 14:54 MPV 7.9 fl (7.5-11.1) D 06/20/17 14:54 CMP Sodium 140 mmol/L (136-145) 06/20/17 14:54 Potassium 4.5 mmol/L (3.5-5.1) 06/20/17 14:54 Chloride 104 mmol/L (98-107) 06/20/17 14:54 Carbon Dioxide 30 mmol/L (21-32) 06/20/17 14:54 Anion Gap 6 (8-16) L 06/20/17 14:54 BUN 25 mg/dL (7-18) H D 06/20/17 14:54 Creatinine 0.8 mg/dL (0.55-1.02) 06/20/17 14:54 Creat Clearance w eGFR > 60 (>60) 06/20/17 14:54 Random Glucose 92 mg/dL (74-106) 06/20/17 14:54 Calcium 8.2 mg/dL (8.5-10.1) L 06/20/17 14:54 Total Bilirubin 0.4 mg/dL (0.2-1.0) D 06/20/17 14:54 AST 24 U/L (15-37) 06/20/17 14:54 ALT 24 U/L (12-78) 06/20/17 14:54 Alkaline Phosphatase 119 U/L (45-117) H D 06/20/17 14:54 Total Protein 6.1 g/dl (6.4-8.2) L 06/20/17 14:54 Albumin 3.1 g/dl (3.4-5.0) L 06/20/17 14:54 Current Medications Generic Name Dose Route Start Last Admin Trade Name Freq PRN Reason Stop Dose Admin Acetaminophen 650 mg 06/21/17 13:44 06/21/17 21:29 Tylenol - PO 650 mg Q4H PRN Administration FEVER OR PAIN Atorvastatin Calcium 10 mg 06/20/17 22:00 06/21/17 21:44 Lipitor - PO 10 mg HS BELL Administration Diphenhydramine HCl 25 mg 06/21/17 14:57 06/21/17 15:12 Benadryl - PO 25 mg Q6H PRN Administration FOR ITCHING Docusate Sodium 100 mg 06/21/17 22:00 06/21/17 21:29 Colace - PO 100 mg BID BELL Administration Guaifenesin 600 mg 06/21/17 10:00 06/21/17 10:51 Mucinex - PO 600 mg DAILY BELL Administration Vancomycin HCl 1,250 mg/ 250 mls @ 166.667 mls/hr 06/21/17 15:15 06/21/17 17:00 Dextrose IVPB 166.667 mls/hr DAILY BELL Administration Protocol Lactobacillus Acidophilus 1 tab 06/21/17 11:30 06/21/17 21:29 Bacid - PO 1 tab BID BELL Administration Multivitamins/Minerals 1 each 06/21/17 10:00 06/21/17 10:51 Theragran-M PO 1 each DAILY BELL Administration Polyethylene Glycol 17 gm 06/21/17 13:45 06/21/17 21:30 Miralax (For Daily Use) - PO 17 gm BID BELL Administration Potassium Chloride 10 meq 06/21/17 10:00 06/21/17 10:53 K-Dur - PO Not Given DAILY [facility]END[facility] TO [facility] Home Medications Medication Instructions Recorded Ascorbate Calcium [Vitamin C] 1,000 mg PO DAILY 08/30/15 Cholecalciferol (Vitamin D3) 1,000 unit PO BID 08/30/15 [Vitamin D3] Cyanocobalamin [Vitamin B12 -] 1,000 mcg PO DAILY 08/30/15 Diltiazem [Cardizem -] 30 mg PO TID 08/30/15 Losartan Potassium 100 mg PO DAILY 08/30/15 Oxycodone/APAP [Percocet - Must 1 each NR QID PRN 08/30/15 Order Individual Components] Simvastatin 10 mg PO HS 08/30/15 Furosemide [Lasix -] 40 mg PO DAILY 06/20/17 Guaifenesin [Mucinex] 600 mg PO DAILY 06/20/17 Multivit-Min/FA/Lycopen/Lutein 1 each PO DAILY 06/20/17 [Centrum Silver Tablet] Potassium Chloride [Klor-Con 10] 10 meq PO DAILY 06/20/17 Warfarin Na [Coumadin -] 7 mg PO ASDIR 06/20/17 Physical Examination Vital Signs: Vital Signs Temperature 98.1 F 06/21/17 19:00 Pulse Rate 127 H 06/21/17 19:00 Respiratory Rate 20 06/21/17 19:00 Blood Pressure 102/70 06/21/17 19:00 O2 Sat by Pulse Oximetry (%) 92 L 06/21/17 13:00
[2017-06-21] MEDS: dilTIAZem HCL 30 MG TABLET (FP) PO SCH (22:48)
[2017-06-22] MEDS: dilTIAZem HCL 30 MG TABLET (FP) PO SCH ×3 (06:21→21:39)
[2017-06-22] MEDS: ACETAMINOPHEN 325 MG TABLET (FP) PO PRN ×2 (06:36→14:28)
[2017-06-22 07:53] LABS: BASOPHIL 0.2 % (0-2.0); EOSINOPHIL 2.8 % (0-4.5); MCH 28.5 pg (25.7-33.7); MCHC 32.3 g/dl (32.0-36.0); MEAN CELL VOLUME 88.3 fl (80-96); MEAN PLT VOLUME 8.3 fl (7.5-11.1); NEUTROPHILS 86.6 % (42.8-82.8); PLATELET COUNT 227 K/MM3 (134-434); RDW 14.1 % (11.6-15.6); WHITE BLOOD COUNT 15.1 K/mm3 (4.0-10.0)
[2017-06-22 08:10] LABS: ANION GAP 10 (8-16); CALCIUM 8.5 mg/dL (8.5-10.1); CO2 28 mmol/L (21-32); GLUCOSE,RANDOM 105 mg/dL (74-106); MAGNESIUM 1.9 mg/dL (1.8-2.4)
[2017-06-22 08:12] LABS: CREATININE 0.8 mg/dL (0.55-1.02)
[2017-06-22 08:31] LABS: INR 3.83 (0.82-1.09); PROTHROMBIN TIME (PATIENT) 43.3 SEC (9.98-11.88)
--- NOTE | 2017-06-22 09:34 | CONS ---
DATE OF CONSULTATION: DATE OF DICTATION: 06/21/2017 REQUESTED BY: En Griffith MD HISTORY OF PRESENT ILLNESS: This is a 72-year-old woman with a history of atrial fibrillation, osteoarthritis, rheumatoid arthritis, Sjogren. She is currently not on any medications for her Sjogren or rheumatoid arthritis. She has a history of venostasis of both her legs and prior right lower extremity cellulitis many years ago with MRSA about 10 years back who comes to the emergency room with complaints of worsening erythema and swelling of her right lower extremity for the last 2-1/2 weeks. She is having a lot of clear drainage. She is having worsening erythema. She has no fevers or chills. She denies any trauma to the leg. She has not had any scratches from any pets. She has had no insect bites. She has not had any water exposure. PAST MEDICAL HISTORY: Notable for atrial fibrillation, rheumatoid arthritis. She has been on in the past but has not tolerated. Osteoarthritis, fibromyalgia, Sjogren syndrome, hypertension, COPD, sleep apnea. She is status post bilateral knee replacement. She has a history of MRSA infection to the leg about 10 years ago to the right lower extremity. FAMILY HISTORY: Noncontributory. SOCIAL HISTORY: She stopped smoking many years ago. She lives at home with her , but he is currently at the custodial. ALLERGIES: She is allergic to PENICILLIN which resulted in swelling of her entire body. MEDICATIONS AT HOME: Include: 1. Vitamin C. 2. Vitamin D. 3. B12. 4. Cardizem. 5. Losartan. 6. Percocet. 7. Simvastatin. 8. Lasix. 9. Mucinex. 10. Centrum vitamins. 11. K-Radha. 12. Warfarin. 13. She about 2 months back did a 5-day course of azithromycin for sinusitis. REVIEW OF SYSTEMS: She currently notes edema and swelling of her leg. She reports the erythema has improved overnight. She denies any fevers, chills, nausea, vomiting, diarrhea, or dysuria. PHYSICAL EXAMINATION: General: She is a pleasant woman. Vital Signs: She weighs 300 pounds, her temperature is 98.7, pulse is 130, blood pressure is 121/65, respiratory rate is 20. HEENT: She is normocephalic. Her eyes are anicteric. Neck: Supple. Heart: Regular rate and rhythm. Abdomen: Soft, nontender. Extremities: Notable for venostasis of both legs. The right leg is erythematous with some erythema of the right lower inner thigh just above her knee. She has well-healed bilateral total knee replacement scars. She has some weeping and serous drainage of the leg which is diffusely erythematous. LABORATORIES: Notable for a white count of 7.7, hemoglobin 14.1, platelets are 247. INR is 5.2. BUN is 25 and creatinine is 0.8. ASSESSMENT: In summary, this is a 72-year-old woman admitted with cellulitis of her right lower extremity. She is also on Coumadin for atrial fibrillation, history of rheumatoid arthritis, and Sjogren. Severe PENICILLIN allergy. I would suggest we continue the clindamycin as ordered overnight. I would ask Dr. Kaplan to see her here in the hospital for local wound care instructions. Hopefully, her leg will improve overnight and she will be able to be discharged home in the morning. Further recommendations to follow based on her clinical course. I spoke with Dr. Griffith and Dr. Kaplan as well regarding her care. JERED TCUKER M.D. [id number]
[2017-06-22] MEDS ORDERED: PT OWN MED DRAWER 7, Y5N ONE ×2 (10:02→14:16)
[2017-06-22] MEDS: MULTIVITAMINS THER W-MINERALS COMBO TABLET (FP) PO SCH (10:04)
[2017-06-22] MEDS: LACTOBACILLUS ACIDOPHILUS 1 EACH TAB (FP) PO SCH ×2 (10:04→21:38)
[2017-06-22] MEDS: DOCUSATE SODIUM 100 MG CAPSULE (FP) PO SCH ×2 (10:04→21:38)
[2017-06-22] MEDS: guaiFENesin 600 MG TABLET.ER (FP) PO SCH (10:04)
[2017-06-22] MEDS: POLYETHYLENE GLYCOL 3350 119 GM BTL PO SCH ×2 (10:13→21:39)
[2017-06-22] MEDS: POTASSIUM CHLORIDE TABS 10 MEQ TABLET.ER (FP) PO SCH (10:14)
[2017-06-22] MEDS: VANCOMYCIN 1,250 MG in DEXTROSE 5%-WATER - 250 ML IVPB SCH ×2 (10:41→16:27)
--- NOTE | 2017-06-22 13:59 | PN ---
Progress Note (short form) - Note Progress Note: I continues with itching of her back no fevers Vital Signs Period Temp Pulse Resp BP Sys/William Pulse Ox Last 24 Hr 98.1 F-98.8 F 105-144 18-20 88-133/51-76 97-97 no oral or facial lesions has diffuse erythema of the chest, abd, and back bilateral venous stasis with erythema of the RLE cor-rrr lungs clear abd soft,nt CBC, BMP 06/22/17 06:10 06/22/17 06:10 Microbiology 06/20/17 15:59 Blood - Peripheral Venous Blood Culture - Preliminary NO GROWTH OBTAINED AFTER 24 HOURS, INCUBATION TO CONTINUE FOR 4 DAYS. 06/20/17 15:59 Blood - Peripheral Venous Blood Culture - Preliminary NO GROWTH OBTAINED AFTER 24 HOURS, INCUBATION TO CONTINUE FOR 4 DAYS. a/p cellulitis of RLE with venous stasis drug rash- I suspect clindamycin which was given in ED patient had diffuse erythema and itching prior to receiving vancomycin continue benadryl Problem List - Problems (1) Cellulitis Code(s): L03.90 - CELLULITIS, UNSPECIFIED (2) Penicillin allergy Code(s): Z88.0 - ALLERGY STATUS TO PENICILLIN
[2017-06-22] MEDS: diphenhydrAMINE HCL 25 MG CAPSULE (FP) PO PRN ×2 (14:30→20:50)
[2017-06-22] MEDS: oxyCODONE HCL 5 MG TABLET PO PRN ×2 (15:13→20:50)
[2017-06-22] MEDS ORDERED: dilTIAZem HCL 30 MG TABLET (FP) PO ONE (15:15)
--- NOTE | 2017-06-22 16:42 | PN ---
Progress Note (short form) - Note Progress Note: Pain is still present No fever but had chills Has an erythematous rash all over the abd and body O/E Vital Signs Period Temp Pulse Resp BP Sys/William Pulse Ox Last 24 Hr 98.1 F-98.8 F 105-144 18-20 88-133/52-76 97-97 Heart irregular Lungs clear Abd soft 'Ext b/l venous stasis dermatitis and erythema of mainly hte left leg+ Abd has a macular eruption compatible with a drug rash+ Current Medications Acetaminophen (Tylenol -) 650 mg PO Q4H PRN PRN Reason: FEVER OR PAIN Last Admin: 06/22/17 14:28 Dose: 650 mg Atorvastatin Calcium (Lipitor -) 10 mg PO HS [facility] Last Admin: 06/21/17 21:44 Dose: 10 mg Diltiazem HCl (Cardizem -) 30 mg PO TID [facility] Last Admin: 06/22/17 14:19 Dose: 30 mg Diphenhydramine HCl (Benadryl -) 25 mg PO Q6H PRN PRN Reason: FOR ITCHING Last Admin: 06/22/17 14:30 Dose: 25 mg Docusate Sodium (Colace -) 100 mg PO BID [facility] Last Admin: 06/22/17 10:04 Dose: 100 mg Guaifenesin (Mucinex -) 600 mg PO DAILY [facility] Last Admin: 06/22/17 10:04 Dose: 600 mg Vancomycin HCl 1,250 mg/ (Dextrose) 250 mls @ 166.667 mls/hr IVPB DAILY@1700 BELL PRN Reason: Protocol Last Admin: 06/22/17 16:27 Dose: 166.667 mls/hr Lactobacillus Acidophilus (Bacid -) 1 tab PO BID [facility] Last Admin: 06/22/17 10:04 Dose: 1 tab Multivitamins/Minerals (Theragran-M) 1 each PO DAILY [facility] Last Admin: 06/22/17 10:04 Dose: 1 each Oxycodone HCl (Roxicodone -) 5 mg PO Q4H PRN Last Admin: 06/22/17 15:13 Dose: 5 mg Polyethylene Glycol (Miralax (For Daily Use) -) 17 gm PO BID [facility] Last Admin: 06/22/17 10:13 Dose: 17 gm Potassium Chloride (K-Dur -) 10 meq PO DAILY [facility] Last Admin: 06/22/17 10:14 Dose: Not Given Vital Signs Period Temp Pulse Resp BP Sys/William Pulse Ox Last 24 Hr 98.1 F-98.8 F 105-144 18-20 88-133/52-76 97-97 Laboratory Results - last 24 hr 06/22/17 06/22/17 06/22/17 06:10 06:10 06:10 WBC 15.1 H D RBC 5.42 H Hgb 15.5 H Hct 47.9 H MCV 88.3 MCH 28.5 MCHC 32.3 RDW 14.1 Plt Count 227 MPV 8.3 Neutrophils % 86.6 H D Lymphocytes % 4.9 L D Monocytes % 5.5 Eosinophils % 2.8 Basophils % 0.2 INR 3.83 H Sodium 135 L Potassium 5.1 Chloride 97 L Carbon Dioxide 28 Anion Gap 10 BUN 21 H Creatinine 0.8 Random Glucose 105 Calcium 8.5 Phosphorus 3.0 D Magnesium 1.9 (1) Cellulitis Assessment/Plan: Cont present ABX Code(s): L03.90 - CELLULITIS, UNSPECIFIED (2) HTN (hypertension) Assessment/Plan: cont present care Code(s): I10 - ESSENTIAL (PRIMARY) HYPERTENSION (3) Atrial fibrillation Assessment/Plan: INR improving Code(s): I48.91 - UNSPECIFIED ATRIAL FIBRILLATION Qualifiers: Atrial fibrillation type: chronic Qualified Code(s): I48.2 - Chronic atrial fibrillation ((5) Drug rash Assessment/Plan: -suspect drug rash patient claims she had the rash even before the ABX was started and will f/u on present ABX Code(s): L27.0 - GEN SKIN ERUPTION DUE TO DRUGS AND MEDS TAKEN INTERNALLY (6) Obesity hypoventilation syndrome Assessment/Plan: -continue CPAP Code(s): E66.2 - MORBID (SEVERE) OBESITY WITH ALVEOLAR HYPOVENTILATION
[2017-06-22] MEDS: ATORVASTATIN CA 10 MG TABLET (FP) PO SCH (21:38)
[2017-06-23] MEDS: ACETAMINOPHEN 325 MG TABLET (FP) PO PRN (06:45)
[2017-06-23] MEDS: dilTIAZem HCL 30 MG TABLET (FP) PO SCH ×3 (06:45→21:26)
[2017-06-23] MEDS: diphenhydrAMINE HCL 25 MG CAPSULE (FP) PO PRN (07:21)
[2017-06-23 09:27] LABS: BASOPHIL 0.5 % (0-2.0); EOSINOPHIL 3.8 % (0-4.5); MCH 28.7 pg (25.7-33.7); MCHC 32.8 g/dl (32.0-36.0); MEAN CELL VOLUME 87.7 fl (80-96); MEAN PLT VOLUME 8.2 fl (7.5-11.1); NEUTROPHILS 84.9 % (42.8-82.8); PLATELET COUNT 237 K/MM3 (134-434); RDW 14.2 % (11.6-15.6); WHITE BLOOD COUNT 15.2 K/mm3 (4.0-10.0)
[2017-06-23 09:59] LABS: ANION GAP 4 (8-16); CALCIUM 8.6 mg/dL (8.5-10.1); CO2 31 mmol/L (21-32); CREATININE 0.9 mg/dL (0.55-1.02); GLUCOSE,RANDOM 141 mg/dL (74-106)
[2017-06-23 10:29] LABS: INR 2.7 (0.82-1.09); PROTHROMBIN TIME (PATIENT) 30.3 SEC (9.98-11.88)
[2017-06-23] MEDS: POLYETHYLENE GLYCOL 3350 119 GM BTL PO SCH ×2 (10:53→21:27)
[2017-06-23] MEDS: DOCUSATE SODIUM 100 MG CAPSULE (FP) PO SCH ×2 (10:54→21:27)
[2017-06-23] MEDS: guaiFENesin 600 MG TABLET.ER (FP) PO SCH (10:58)
[2017-06-23] MEDS: MULTIVITAMINS THER W-MINERALS COMBO TABLET (FP) PO SCH (10:58)
[2017-06-23] MEDS: oxyCODONE HCL 5 MG TABLET PO PRN ×2 (11:27→21:25)
--- NOTE | 2017-06-23 13:02 | PN ---
Progress Note (short form) - Note Progress Note: I continues with itching of her back rash extends across back and abdomen and legs, upper arms no fevers looks well, nontoxic Vital Signs Period Temp Pulse Resp BP Sys/William Pulse Ox Last 24 Hr 97.6 F-98.7 F 86-134 18-20 93-132/52-79 98-98 no oral lesions cor-rrr lungs clear abd soft bilateral venous stasis CBC, BMP 06/23/17 08:45 06/23/17 08:45 Microbiology 06/20/17 15:59 Blood - Peripheral Venous Blood Culture - Preliminary NO GROWTH OBTAINED AFTER 48 HOURS, INCUBATION TO CONTINUE FOR 3 DAYS. 06/20/17 15:59 Blood - Peripheral Venous Blood Culture - Preliminary NO GROWTH OBTAINED AFTER 48 HOURS, INCUBATION TO CONTINUE FOR 3 DAYS. a/p cellulitis of RLE with venous stasis-continue vancomycin drug rash- I suspect clindamycin which was given in ED patient had diffuse erythema and itching prior to receiving vancomycin continue benadryl consider derm consult add po prednisone- d/w Dr Haney Problem List - Problems (1) Cellulitis Code(s): L03.90 - CELLULITIS, UNSPECIFIED (2) Penicillin allergy Code(s): Z88.0 - ALLERGY STATUS TO PENICILLIN
[2017-06-23] MEDS: predniSONE 20 MG TABLET (UD) PO SCH (14:57)
[2017-06-23] MEDS: VANCOMYCIN 1,250 MG in DEXTROSE 5%-WATER - 250 ML IVPB SCH (16:22)
--- NOTE | 2017-06-23 18:03 | PN ---
Progress Note (short form) - Note Progress Note: The redness in the trunk persists. No fever O/E Vital Signs Period Temp Pulse Resp BP Sys/William Pulse Ox Last 24 Hr 97.6 F-98.7 F 86-134 18-20 93-139/66-79 98-98 Heart regular Lungs clear Abd a macular eruption probably due to an drug rash+ Ext Venous stasis dermatitis and weeping legs that are red Current Medications Acetaminophen (Tylenol -) 650 mg PO Q4H PRN PRN Reason: FEVER OR PAIN Last Admin: 06/23/17 06:45 Dose: 650 mg Atorvastatin Calcium (Lipitor -) 10 mg PO HS [facility] Last Admin: 06/22/17 21:38 Dose: 10 mg Diltiazem HCl (Cardizem -) 30 mg PO TID [facility] Last Admin: 06/23/17 14:57 Dose: 30 mg Diphenhydramine HCl (Benadryl -) 25 mg PO Q6H PRN PRN Reason: FOR ITCHING Last Admin: 06/23/17 07:21 Dose: 25 mg Docusate Sodium (Colace -) 100 mg PO BID [facility] Last Admin: 06/23/17 10:54 Dose: Not Given Guaifenesin (Mucinex -) 600 mg PO DAILY [facility] Last Admin: 06/23/17 10:58 Dose: 600 mg Vancomycin HCl 1,250 mg/ (Dextrose) 250 mls @ 166.667 mls/hr IVPB DAILY@1700 [facility] PRN Reason: Protocol Last Admin: 06/23/17 16:22 Dose: 166.667 mls/hr Multivitamins/Minerals (Theragran-M) 1 each PO DAILY [facility] Last Admin: 06/23/17 10:58 Dose: 1 each Oxycodone HCl (Roxicodone -) 5 mg PO Q4H PRN Last Admin: 06/23/17 11:27 Dose: 5 mg Polyethylene Glycol (Miralax (For Daily Use) -) 17 gm PO BID [facility] Last Admin: 06/23/17 10:53 Dose: Not Given Prednisone (Deltasone -) 40 mg PO DAILY [facility] Last Admin: 06/23/17 14:57 Dose: 40 mg Laboratory Last Values WBC 15.2 K/mm3 (4.0-10.0) H 06/23/17 08:45 RBC 5.32 M/mm3 (3.60-5.2) H 06/23/17 08:45 Hgb 15.3 GM/dL (10.7-15.3) 06/23/17 08:45 Hct 46.6 % (32.4-45.2) H 06/23/17 08:45 MCV 87.7 fl (80-96) 06/23/17 08:45 MCH 28.7 pg (25.7-33.7) 06/23/17 08:45 MCHC 32.8 g/dl (32.0-36.0) 06/23/17 08:45 RDW 14.2 % (11.6-15.6) 06/23/17 08:45 Plt Count 237 K/MM3 (134-434) 06/23/17 08:45 MPV 8.2 fl (7.5-11.1) 06/23/17 08:45 Neutrophils % 84.9 % (42.8-82.8) H 06/23/17 08:45 Lymphocytes % 6.0 % (8-40) L D 06/23/17 08:45 Monocytes % 4.8 % (3.8-10.2) 06/23/17 08:45 Eosinophils % 3.8 % (0-4.5) 06/23/17 08:45 Basophils % 0.5 % (0-2.0) 06/23/17 08:45 INR 2.70 (0.82-1.09) H 06/23/17 08:45 PTT (Actin FS) 64.4 SECONDS (26.9-34.4) H 06/21/17 07:45 Sodium 134 mmol/L (136-145) L 06/23/17 08:45 Potassium 5.5 mmol/L (3.5-5.1) H 06/23/17 08:45 Chloride 99 mmol/L (98-107) 06/23/17 08:45 Carbon Dioxide 31 mmol/L (21-32) 06/23/17 08:45 Anion Gap 4 (8-16) L 06/23/17 08:45 BUN 17 mg/dL (7-18) 06/23/17 08:45 Creatinine 0.9 mg/dL (0.55-1.02) 06/23/17 08:45 Creat Clearance w eGFR > 60 (>60) 06/20/17 14:54 Random Glucose 141 mg/dL (74-106) H D 06/23/17 08:45 Hemoglobin A1c % 6.0 % (4.8-6.0) 06/21/17 07:45 Lactic Acid 1.2 mmol/L (0.4-2.0) 06/20/17 15:59 Calcium 8.6 mg/dL (8.5-10.1) 06/23/17 08:45 Phosphorus 3.0 mg/dL (2.5-4.9) D 06/22/17 06:10 Magnesium 1.9 mg/dL (1.8-2.4) 06/22/17 06:10 Total Bilirubin 0.4 mg/dL (0.2-1.0) D 06/20/17 14:54 AST 24 U/L (15-37) 06/20/17 14:54 ALT 24 U/L (12-78) 06/20/17 14:54 Alkaline Phosphatase 119 U/L (45-117) H D 06/20/17 14:54 B-Natriuretic Peptide 1202.38 pg/ml (5-125) H 06/20/17 14:54 Total Protein 6.1 g/dl (6.4-8.2) L 06/20/17 14:54 Albumin 3.1 g/dl (3.4-5.0) L 06/20/17 14:54 1) Cellulitis Assessment/Plan: Cont present ABX Code(s): L03.90 - CELLULITIS, UNSPECIFIED (2) HTN (hypertension) Assessment/Plan: cont present care Code(s): I10 - ESSENTIAL (PRIMARY) HYPERTENSION (3) Atrial fibrillation Assessment/Plan: INR improving Code(s): I48.91 - UNSPECIFIED ATRIAL FIBRILLATION Qualifiers: Atrial fibrillation type: chronic Qualified Code(s): I48.2 - Chronic atrial fibrillation ((5) Drug rash Assessment/Plan: -suspect drug rash patient claims she had the rash even before the ABX was started and will f/u on present ABX Will p lace on Prednisone Code(s): L27.0 - GEN SKIN ERUPTION DUE TO DRUGS AND MEDS TAKEN INTERNALLY (6) Obesity hypoventilation syndrome Assessment/Plan: -continue CPAP Code(s): E66.2 - MORBID (SEVERE) OBESITY WITH ALVEOLAR HYPOVENTILATION
[2017-06-23] MEDS: WARFARIN NA 5 MG TABLET (UD) PO SCH (20:52)
[2017-06-23] MEDS: ATORVASTATIN CA 10 MG TABLET (FP) PO SCH (21:26)
[2017-06-24] MEDS: oxyCODONE HCL 5 MG TABLET PO PRN ×3 (06:34→21:47)
[2017-06-24] MEDS: dilTIAZem HCL 30 MG TABLET (FP) PO SCH ×3 (06:35→21:46)
[2017-06-24 07:12] LABS: BASOPHIL 0.2 % (0-2.0); EOSINOPHIL 1.1 % (0-4.5); MCH 28.9 pg (25.7-33.7); MCHC 33.1 g/dl (32.0-36.0); MEAN CELL VOLUME 87.3 fl (80-96); MEAN PLT VOLUME 7.7 fl (7.5-11.1); NEUTROPHILS 85.2 % (42.8-82.8); PLATELET COUNT 241 K/MM3 (134-434); RDW 13.7 % (11.6-15.6); WHITE BLOOD COUNT 10.4 K/mm3 (4.0-10.0)
[2017-06-24 07:20] LABS: INR 2.03 (0.82-1.09); PROTHROMBIN TIME (PATIENT) 22.6 SEC (9.98-11.88)
[2017-06-24 07:39] LABS: ALBUMIN 2.8 g/dl (3.4-5.0); ALK PHOS 165 U/L (45-117); ANION GAP 6 (8-16); BILIRUBIN,TOTAL 0.9 mg/dL (0.2-1.0); CALCIUM 8.7 mg/dL (8.5-10.1); CO2 31 mmol/L (21-32); CREATININE 0.7 mg/dL (0.55-1.02); GLUCOSE,RANDOM 113 mg/dL (74-106); SGOT/AST 28 U/L (15-37); SGPT/ALT 51 U/L (12-78); TOT PROT 5.8 g/dl (6.4-8.2)
[2017-06-24] MEDS: diphenhydrAMINE HCL 25 MG CAPSULE (FP) PO PRN (09:37)
--- NOTE | 2017-06-24 10:53 | PN ---
Progress Note, Physician - Current Medication List Current Medications: Active Medications Acetaminophen (Tylenol -) 650 mg PO Q4H PRN PRN Reason: FEVER OR PAIN Last Admin: 06/23/17 06:45 Dose: 650 mg Atorvastatin Calcium (Lipitor -) 10 mg PO HS [facility] Last Admin: 06/23/17 21:26 Dose: 10 mg Diltiazem HCl (Cardizem -) 30 mg PO TID [facility] Last Admin: 06/24/17 06:35 Dose: 30 mg Diphenhydramine HCl (Benadryl -) 25 mg PO Q6H PRN PRN Reason: FOR ITCHING Last Admin: 06/24/17 09:37 Dose: 25 mg Docusate Sodium (Colace -) 100 mg PO BID [facility] Last Admin: 06/23/17 21:27 Dose: Not Given Guaifenesin (Mucinex -) 600 mg PO DAILY [facility] Last Admin: 06/23/17 10:58 Dose: 600 mg Vancomycin HCl 1,250 mg/ (Dextrose) 250 mls @ 166.667 mls/hr IVPB DAILY@1700 [facility] PRN Reason: Protocol Last Admin: 06/23/17 16:22 Dose: 166.667 mls/hr Multivitamins/Minerals (Theragran-M) 1 each PO DAILY [facility] Last Admin: 06/23/17 10:58 Dose: 1 each Oxycodone HCl (Roxicodone -) 5 mg PO Q4H PRN Last Admin: 06/24/17 06:34 Dose: 5 mg Polyethylene Glycol (Miralax (For Daily Use) -) 17 gm PO BID [facility] Last Admin: 06/23/17 21:27 Dose: Not Given Prednisone (Deltasone -) 40 mg PO DAILY [facility] Last Admin: 06/23/17 14:57 Dose: 40 mg Warfarin Sodium (Coumadin -) 5 mg PO DAILY@1800 [facility] Last Admin: 06/23/17 20:52 Dose: 5 mg - Objective Vital Signs: Vital Signs Temperature 98.0 F 06/24/17 09:17 Pulse Rate 126 H 06/24/17 09:17 Respiratory Rate 20 06/24/17 09:17 Blood Pressure 128/59 06/24/17 09:17 O2 Sat by Pulse Oximetry (%) 94 L 06/23/17 21:00 Labs: CBC, BMP 06/24/17 06:00 06/24/17 06:00 INR, PTT INR 2.03 (0.82-1.09) H 06/24/17 06:00 Assessment/Plan ecg 06/20/17: afib, vr 100, nl qtc, no ischemic changes cxr: ?chf cellulitis of RLE with venous stasis: -continue vancomycin per ID drug rash with diffuse pruritus/erythema -began prior to vanco, suspected clindamycin drug rash per ID consultants -benadryl, etc per pmd HTN: -bp occasionally on low side -pt reports that she has been on her current med regimen as outpt for years w/o issues -cont home meds chronic Afib: -rate controlled on current meds (of note pt is refusing to take her home meds now, says she will take when gets home soon) -cont coumadin per INR HPL: -cont statin venous insuff/le edema: -chronic condition, stable per pt -she is currently refusing any inpt treatment or testing -cont home po lasix -?ID consult if pt allows
[2017-06-24] MEDS: ACETAMINOPHEN 325 MG TABLET (FP) PO PRN (10:55)
[2017-06-24] MEDS ORDERED: PT OWN MED DRAWER 7, Y5N ONE (11:07)
[2017-06-24] MEDS: predniSONE 20 MG TABLET (UD) PO SCH ×2 (11:09→21:46)
[2017-06-24] MEDS: MULTIVITAMINS THER W-MINERALS COMBO TABLET (FP) PO SCH (11:09)
[2017-06-24] MEDS: guaiFENesin 600 MG TABLET.ER (FP) PO SCH (11:09)
[2017-06-24] MEDS: DOCUSATE SODIUM 100 MG CAPSULE (FP) PO SCH ×2 (11:09→21:46)
[2017-06-24] MEDS: POLYETHYLENE GLYCOL 3350 119 GM BTL PO SCH ×2 (11:10→21:47)
[2017-06-24] MEDS ORDERED: LOSARTAN POTASSIUM 50 MG TABLET (FP) PO SCH (12:00)
--- NOTE | 2017-06-24 12:18 | PN ---
Progress Note, Physician Chief Complaint: Mrs Torres says she is still having a rash. Denies cp, sob, n/v. Very tearful on exam today, saying she wants to go home. - Current Medication List Current Medications: Active Medications Acetaminophen (Tylenol -) 650 mg PO Q4H PRN PRN Reason: FEVER OR PAIN Last Admin: 06/24/17 10:55 Dose: 650 mg Atorvastatin Calcium (Lipitor -) 10 mg PO HS [facility] Last Admin: 06/23/17 21:26 Dose: 10 mg Diltiazem HCl (Cardizem -) 30 mg PO TID [facility] Last Admin: 06/24/17 06:35 Dose: 30 mg Diphenhydramine HCl (Benadryl -) 25 mg PO Q6H PRN PRN Reason: FOR ITCHING Last Admin: 06/24/17 09:37 Dose: 25 mg Docusate Sodium (Colace -) 100 mg PO BID [facility] Last Admin: 06/24/17 11:09 Dose: 100 mg Guaifenesin (Mucinex -) 600 mg PO DAILY [facility] Last Admin: 06/24/17 11:09 Dose: 600 mg Vancomycin HCl 1,250 mg/ (Dextrose) 250 mls @ 166.667 mls/hr IVPB DAILY@1700 [facility] PRN Reason: Protocol Last Admin: 06/23/17 16:22 Dose: 166.667 mls/hr Losartan Potassium (Cozaar -) 100 mg PO DAILY [facility] Metoprolol Succinate (Toprol Xl -) 50 mg PO BID [facility] Multivitamins/Minerals (Theragran-M) 1 each PO DAILY [facility] Last Admin: 06/24/17 11:09 Dose: 1 each Oxycodone HCl (Roxicodone -) 5 mg PO Q4H PRN Last Admin: 06/24/17 10:54 Dose: 5 mg Polyethylene Glycol (Miralax (For Daily Use) -) 17 gm PO BID [facility] Last Admin: 06/24/17 11:10 Dose: Not Given Prednisone (Deltasone -) 40 mg PO DAILY [facility] Last Admin: 06/24/17 11:09 Dose: 40 mg Warfarin Sodium (Coumadin -) 5 mg PO DAILY@1800 [facility] Last Admin: 06/23/17 20:52 Dose: 5 mg - Objective Vital Signs: Vital Signs Temperature 98.0 F 06/24/17 09:17 Pulse Rate 126 H 06/24/17 09:17 Respiratory Rate 20 06/24/17 09:17 Blood Pressure 128/59 06/24/17 09:17 O2 Sat by Pulse Oximetry (%) 94 L 06/23/17 21:00 Constitutional: Yes: No Distress, Calm, Obese Cardiovascular: Yes: Tachycardia, Pulse Irregular. No: Gallop, Murmur, Rub Respiratory: Yes: Regular, CTA Bilaterally. No: Rales, Rhonchi, Wheezes Gastrointestinal: Yes: Normal Bowel Sounds, Soft. No: Distention, Tenderness Extremities: Yes: WNL Edema: No Integumentary: Yes: Erythema Labs: CBC, BMP 06/24/17 06:00 06/24/17 06:00 INR, PTT INR 2.03 (0.82-1.09) H 06/24/17 06:00 Problem List - Problems (1) Cellulitis Code(s): L03.90 - CELLULITIS, UNSPECIFIED (2) HTN (hypertension) Code(s): I10 - ESSENTIAL (PRIMARY) HYPERTENSION (3) Atrial fibrillation Code(s): I48.91 - UNSPECIFIED ATRIAL FIBRILLATION Qualifiers: Atrial fibrillation type: chronic Qualified Code(s): I48.2 - Chronic atrial fibrillation (4) Supratherapeutic INR Code(s): R79.1 - ABNORMAL COAGULATION PROFILE (5) Drug rash Code(s): L27.0 - GEN SKIN ERUPTION DUE TO DRUGS AND MEDS TAKEN INTERNALLY (6) Obesity hypoventilation syndrome Code(s): E66.2 - MORBID (SEVERE) OBESITY WITH ALVEOLAR HYPOVENTILATION Assessment/Plan (1) Cellulitis Assessment/Plan: -case d/w ID -continue vancomycin currently Code(s): L03.90 - CELLULITIS, UNSPECIFIED (2) HTN (hypertension) Assessment/Plan: -monitor -controlled -will add back losartan with hold parameters per patient request Code(s): I10 - ESSENTIAL (PRIMARY) HYPERTENSION (3) Atrial fibrillation Assessment/Plan: -with tachycardia -cardiology seeing and managing -continue diltiazem and coumadin Code(s): I48.91 - UNSPECIFIED ATRIAL FIBRILLATION Qualifiers: Atrial fibrillation type: chronic Qualified Code(s): I48.2 - Chronic atrial fibrillation (4) Supratherapeutic INR Assessment/Plan: -resolved -INR now therapeutic -continue coumadin Code(s): R79.1 - ABNORMAL COAGULATION PROFILE (5) Drug rash Assessment/Plan: -not improved -case d/w ID -patient does not tolerate benadryl, causes somnolence -will make prednisone bid Code(s): L27.0 - GEN SKIN ERUPTION DUE TO DRUGS AND MEDS TAKEN INTERNALLY (6) Obesity hypoventilation syndrome Assessment/Plan: -continue CPAP Code(s): E66.2 - MORBID (SEVERE) OBESITY WITH ALVEOLAR HYPOVENTILATION
--- NOTE | 2017-06-24 12:34 | PN ---
Progress Note (short form) - Note Progress Note: wants to go home recent conjunctival hemorrhage right eye last week- saw optho- now resolving rash unchanged still itchy no fevers good appetite Vital Signs Period Temp Pulse Resp BP Sys/William Pulse Ox Last 24 Hr 97.9 F-99.0 F 120-138 18-20 104-139/52-73 94-98 cor-rrr lungs clear abd soft,nt ext legs bandaged skin diffuse erythematous itch rash on back, abdomen, legs,arms- appears unchanged and perhaps less red then yesterday CBC, BMP 06/24/17 06:00 06/24/17 06:00 Microbiology 06/20/17 15:59 Blood - Peripheral Venous Blood Culture - Preliminary NO GROWTH OBTAINED AFTER 72 HOURS, INCUBATION TO CONTINUE FOR 2 DAYS. 06/20/17 15:59 Blood - Peripheral Venous Blood Culture - Preliminary NO GROWTH OBTAINED AFTER 72 HOURS, INCUBATION TO CONTINUE FOR 2 DAYS. a/p drug rash- suspect clindamycin- continue prednisone and benadryl prn venous stasis with cellulitis of right leg- on vancomycin, WBC improve, blood cultures negative afib- f/u with cardiology Problem List - Problems (1) Cellulitis Code(s): L03.90 - CELLULITIS, UNSPECIFIED (2) Penicillin allergy Code(s): Z88.0 - ALLERGY STATUS TO PENICILLIN
[2017-06-24] MEDS: METOPROLOL SUCCINATE 50 MG TAB.SR.24H (FP) PO SCH ×2 (13:16→21:47)
--- NOTE | 2017-06-24 15:21 | PN ---
Progress Note (short form) - Note Progress Note: CC: afib S: HR's elevated today. Patient asx. outpatient metoprolol started this afternoon. no cp, sob, palps, dizzines. + diffuse pain, chronic. Patient states she recently had cough which has now returned. sees dr adams for cardio Current Medications Acetaminophen (Tylenol -) 650 mg PO Q4H PRN PRN Reason: FEVER OR PAIN Last Admin: 06/24/17 10:55 Dose: 650 mg Atorvastatin Calcium (Lipitor -) 10 mg PO HS [facility] Last Admin: 06/23/17 21:26 Dose: 10 mg Diltiazem HCl (Cardizem -) 30 mg PO TID [facility] Last Admin: 06/24/17 06:35 Dose: 30 mg Diphenhydramine HCl (Benadryl -) 25 mg PO Q6H PRN PRN Reason: FOR ITCHING Last Admin: 06/24/17 09:37 Dose: 25 mg Docusate Sodium (Colace -) 100 mg PO BID [facility] Last Admin: 06/24/17 11:09 Dose: 100 mg Guaifenesin (Mucinex -) 600 mg PO DAILY [facility] Last Admin: 06/24/17 11:09 Dose: 600 mg Vancomycin HCl 1,250 mg/ (Dextrose) 250 mls @ 166.667 mls/hr IVPB DAILY@1700 [facility] PRN Reason: Protocol Last Admin: 06/23/17 16:22 Dose: 166.667 mls/hr Losartan Potassium (Cozaar -) 100 mg PO DAILY [facility] Last Admin: 06/24/17 13:16 Dose: 100 mg Metoprolol Succinate (Toprol Xl -) 50 mg PO BID [facility] Last Admin: 06/24/17 13:16 Dose: 50 mg Multivitamins/Minerals (Theragran-M) 1 each PO DAILY [facility] Last Admin: 06/24/17 11:09 Dose: 1 each Oxycodone HCl (Roxicodone -) 5 mg PO Q4H PRN Last Admin: 06/24/17 10:54 Dose: 5 mg Polyethylene Glycol (Miralax (For Daily Use) -) 17 gm PO BID [facility] Last Admin: 06/24/17 11:10 Dose: Not Given Prednisone (Deltasone -) 40 mg PO BID [facility] Warfarin Sodium (Coumadin -) 5 mg PO DAILY@1800 [facility] Last Admin: 06/23/17 20:52 Dose: 5 mg Vital Signs - 24 hr 06/23/17 06/23/17 06/23/17 16:00 18:00 20:53 Temperature 97.9 F 99.0 F 98.1 F Pulse Rate 126 H 120 H 127 H Respiratory 18 18 20 Rate Blood Pressure 139/73 104/55 111/69 O2 Sat by Pulse Oximetry (%) 06/23/17 06/24/17 06/24/17 21:00 02:52 06:00 Temperature Pulse Rate 123 H Respiratory Rate Blood Pressure 111/71 O2 Sat by Pulse 94 L Oximetry (%) 06/24/17 06/24/17 06/24/17 07:21 09:17 14:17 Temperature 98.0 F 98.0 F 98.4 F Pulse Rate 138 H 126 H 134 H Respiratory 20 20 19 Rate Blood Pressure 109/52 128/59 134/80 O2 Sat by Pulse Oximetry (%) 06/24/17 15:13 Temperature Pulse Rate 118 H Respiratory 19 Rate Blood Pressure 117/61 O2 Sat by Pulse Oximetry (%) Intake & Output 06/22/17 06/23/17 06/24/17 06/25/17 07:59 07:59 07:59 07:59 Intake Total 2030 1410 1640 Balance 2030 1410 1640 nad, calm jvd flat, neck supple bibasilar dullness, vs atelectasis irregular rate and rhythm. nl s1, s2 no mrg + bs soft nt nd, obese ext wrapped in dressings. trace dependent edema no jaundice, diaphoresis aaox3 no carotid bruits + dp/pt Laboratory Tests 06/24/17 06/24/17 06:00 06:00 INR 2.03 H Total Bilirubin 0.9 D AST 28 ALT 51 D Alkaline Phosphatase 165 H D Albumin 2.8 L ecg 06/20/17: afib, vr 100, nl qtc, no ischemic changes cxr: ?chf Dobut stress echo 09/08: no STs; no isch; incr EF Echo 06/08: TDS, afib; nl LV/EF; nl RV size and prob nl fxn; L/AROLDO; valves WNL ( no RVSP) Holter 02/07: afib, HRs not controlled; "flutter" sx = AF 118. Assessment/Plan 72 yo with h/o afib on coumadin, morbid obesity, HTN, HL, gerd, severe djd/oa, venous insufficiency who p/w cellulitis, hospital course complicated by rapid heart rates. chronic Afib: - recently with rapid heart rates (asx), but had been off of her home metoprolol. Resumed today 06/24. HR slowly improving. can consider increasing dilt to qid if patient remains fast tomorrow. - patient now with new cough and initial cxr with possible congestive changes. Will repeat CXR to assess for pulmonary edema. -cont coumadin per INR HTN: -bp occasionally on low side. recent cellulitis may be contributing as well as pain medications. - outpatient metoprolol and losartan resumed today. Will decrease losartan dose for tomorrow 06/25 to make bp room for metoprolol. HPL: -cont statin venous insuff/le edema: -chronic condition, stable per pt -cont home po lasix -?ID consult if pt allows cellulitis - complicated by drug rash, now on prednisone. - mgm't per ID, pmd. obesity hypoventilation - con't cpap
[2017-06-24] MEDS: VANCOMYCIN 1,250 MG in DEXTROSE 5%-WATER - 250 ML IVPB SCH (16:46)
[2017-06-24] MEDS: WARFARIN NA 5 MG TABLET (UD) PO SCH (17:39)
[2017-06-24] MEDS: ATORVASTATIN CA 10 MG TABLET (FP) PO SCH (21:47)
[2017-06-25] MEDS: diphenhydrAMINE HCL 25 MG CAPSULE (FP) PO PRN ×2 (01:01→10:23)
[2017-06-25] MEDS: dilTIAZem HCL 30 MG TABLET (FP) PO SCH (06:36)
[2017-06-25 07:10] LABS: BASOPHIL 0.4 % (0-2.0); EOSINOPHIL 0.1 % (0-4.5); MCHC 32.8 g/dl (32.0-36.0); MEAN CELL VOLUME 88.4 fl (80-96); MEAN PLT VOLUME 7.9 fl (7.5-11.1); NEUTROPHILS 87.2 % (42.8-82.8); PLATELET COUNT 285 K/MM3 (134-434); WHITE BLOOD COUNT 10.6 K/mm3 (4.0-10.0)
[2017-06-25 07:22] LABS: INR 1.88 (0.82-1.09)
[2017-06-25 07:38] LABS: ANION GAP 5 (8-16); CO2 32 mmol/L (21-32); GLUCOSE,RANDOM 115 mg/dL (74-106); MAGNESIUM 2.2 mg/dL (1.8-2.4)
[2017-06-25 07:39] LABS: CREATININE 0.7 mg/dL (0.55-1.02); PHOSPHOROUS 4.1 mg/dL (2.5-4.9)
--- NOTE | 2017-06-25 09:36 | PN ---
Progress Note (short form) - Note Progress Note: wants to go home recent conjunctival hemorrhage right eye last week- saw optho- now resolving rash fading still itchy Vital Signs Period Temp Pulse Resp BP Sys/William Pulse Ox Last 24 Hr 97.9 F-98.4 F 83-134 18-19 100-134/51-80 93-95 cor-rrr lungs clear abd soft,nt ext venous stasis- much improved, minimal erythema, shallow ulcer RLE almost healed! rash- much less erythema, improving CBC, BMP 06/25/17 06:25 06/25/17 06:25 Microbiology 06/20/17 15:59 Blood - Peripheral Venous Blood Culture - Preliminary NO GROWTH OBTAINED AFTER 96 HOURS, INCUBATION TO CONTINUE FOR 1 DAYS. 06/20/17 15:59 Blood - Peripheral Venous Blood Culture - Preliminary NO GROWTH OBTAINED AFTER 96 HOURS, INCUBATION TO CONTINUE FOR 1 DAYS. a/p drug rash- suspect clindamycin- continue prednisone and benadryl prn- prednisone taper venous stasis with cellulitis of right leg- d/c vancomycin, cellulitis resolved , can d/c home off antibiotics afib- f/u with cardiology please call back if needed Problem List - Problems (1) Cellulitis Code(s): L03.90 - CELLULITIS, UNSPECIFIED (2) Penicillin allergy Code(s): Z88.0 - ALLERGY STATUS TO PENICILLIN
[2017-06-25] MEDS ORDERED: LOSARTAN POTASSIUM 50 MG TABLET (FP) PO SCH (10:00)
[2017-06-25] MEDS: MULTIVITAMINS THER W-MINERALS COMBO TABLET (FP) PO SCH (10:23)
[2017-06-25] MEDS: guaiFENesin 600 MG TABLET.ER (FP) PO SCH (10:23)
[2017-06-25] MEDS: METOPROLOL SUCCINATE 50 MG TAB.SR.24H (FP) PO SCH (10:23)
[2017-06-25] MEDS: predniSONE 20 MG TABLET (UD) PO SCH (10:24)
[2017-06-25] MEDS: DOCUSATE SODIUM 100 MG CAPSULE (FP) PO SCH (10:25)
[2017-06-25] MEDS: POLYETHYLENE GLYCOL 3350 119 GM BTL PO SCH (10:25)
[2017-06-25 10:53] VITALS: BP 101/57; PULSE 107; TEMP 98.2
--- NOTE | 2017-06-25 11:44 | PN ---
Progress Note (short form) - Note Progress Note: CC: afib S: Outpatient metoprolol started yesterday, losartan dose decreased to make bp room. no cp, sob, palps, dizziness. + diffuse pain, chronic. Patient states she recently had cough which has now returned. CXR similar to priors. sees dr adams for cardio Current Medications Acetaminophen (Tylenol -) 650 mg PO Q4H PRN PRN Reason: FEVER OR PAIN Last Admin: 06/24/17 10:55 Dose: 650 mg Atorvastatin Calcium (Lipitor -) 10 mg PO HS [facility] Last Admin: 06/24/17 21:47 Dose: 10 mg Diltiazem HCl (Cardizem -) 30 mg PO TID [facility] Last Admin: 06/25/17 06:36 Dose: 30 mg Diphenhydramine HCl (Benadryl -) 25 mg PO Q6H PRN PRN Reason: FOR ITCHING Last Admin: 06/25/17 01:01 Dose: 25 mg Docusate Sodium (Colace -) 100 mg PO BID [facility] Last Admin: 06/25/17 10:25 Dose: Not Given Guaifenesin (Mucinex -) 600 mg PO DAILY [facility] Last Admin: 06/25/17 10:23 Dose: 600 mg Vancomycin HCl 1,250 mg/ (Dextrose) 250 mls @ 166.667 mls/hr IVPB DAILY@1700 [facility] PRN Reason: Protocol Last Admin: 06/24/17 16:46 Dose: 166.667 mls/hr Losartan Potassium (Cozaar -) 50 mg PO DAILY [facility] Last Admin: 06/25/17 10:25 Dose: 50 mg Metoprolol Succinate (Toprol Xl -) 50 mg PO BID [facility] Last Admin: 06/25/17 10:23 Dose: 50 mg Multivitamins/Minerals (Theragran-M) 1 each PO DAILY [facility] Last Admin: 06/25/17 10:23 Dose: 1 each Oxycodone HCl (Roxicodone -) 5 mg PO Q4H PRN Last Admin: 06/24/17 21:47 Dose: 5 mg Polyethylene Glycol (Miralax (For Daily Use) -) 17 gm PO BID [facility] Last Admin: 06/25/17 10:25 Dose: Not Given Prednisone (Deltasone -) 40 mg PO BID [facility] Last Admin: 06/25/17 10:24 Dose: 40 mg Warfarin Sodium (Coumadin -) 5 mg PO DAILY@1800 [facility] Last Admin: 06/24/17 17:39 Dose: 5 mg Vital Signs - 24 hr 06/24/17 06/24/17 06/24/17 14:17 15:13 18:59 Temperature 98.4 F 98.2 F Pulse Rate 134 H 118 H 106 H Respiratory 19 19 18 Rate Blood Pressure 134/80 117/61 100/52 O2 Sat by Pulse Oximetry (%) 06/24/17 06/24/17 06/24/17 20:50 21:00 22:00 Temperature 97.9 F Pulse Rate 110 H 110 H Respiratory 18 Rate Blood Pressure 134/51 O2 Sat by Pulse 94 L 93 L Oximetry (%) 06/24/17 06/25/17 06/25/17 23:47 02:01 04:00 Temperature 98.0 F Pulse Rate 106 H 83 109 H Respiratory 18 Rate Blood Pressure 120/60 O2 Sat by Pulse 95 95 Oximetry (%) 06/25/17 06/25/17 06/25/17 06:00 09:00 10:00 Temperature 98.0 F 98.2 F Pulse Rate 93 H 107 H Respiratory 18 18 Rate Blood Pressure 105/58 101/57 O2 Sat by Pulse 95 Oximetry (%) Intake & Output 06/23/17 06/24/17 06/25/17 06/26/17 07:59 07:59 07:59 07:59 Intake Total 1410 1640 1190 Balance 1410 1640 1190 nad, calm jvd flat, neck supple bibasilar dullness, vs atelectasis irregular rate and rhythm. nl s1, s2 no mrg + bs soft nt nd, obese ext wrapped in dressings. trace dependent edema no jaundice, diaphoresis aaox3 no carotid bruits + dp/pt CBC, BMP 06/25/17 06:25 06/25/17 06:25 Laboratory Tests 06/25/17 06/25/17 06:25 06:25 INR 1.88 H Magnesium 2.2 ecg 06/20/17: afib, vr 100, nl qtc, no ischemic changes cxr: ?chf repeat CXR 06/24: possible congestion. by my review, similar to priors Dobut stress echo 09/08: no STs; no isch; incr EF Echo 06/08: TDS, afib; nl LV/EF; nl RV size and prob nl fxn; L/AROLDO; valves WNL ( no RVSP) Holter 02/07: afib, HRs not controlled; "flutter" sx = AF 118. Assessment/Plan 72 yo with h/o afib on coumadin, morbid obesity, HTN, HL, gerd, severe djd/oa, venous insufficiency who p/w cellulitis, hospital course complicated by rapid heart rates. chronic Afib: - recently with rapid heart rates (asx), but had been off of her home metoprolol. Resumed 06/24. HR improving. Con't same mgm't. - initial cxr with possible congestive changes. Repeat CXR by my review, appears similar. -cont coumadin per INR HTN: -bp occasionally on low side. recent cellulitis may be contributing as well as pain medications. - outpatient metoprolol and losartan resumed 06/24. decreased losartan dose today 06/25 to make bp room for additional metoprolol started 06/24. HPL: -cont statin venous insuff/le edema: -chronic condition, stable per pt -cont home po lasix -?ID consult if pt allows cellulitis - complicated by drug rash, now on prednisone. - mgm't per ID, pmd. obesity hypoventilation - con't cpap stable for d/c from CV perspective. Would recommend patient monitor bp/hr at home. F/u with outpatient pathology collector to see if losartan dose can be returned to prior outpatient dosing and to monitor for continued improvement in HR.
--- NOTE | 2017-06-25 12:06 | DS ---
Physical Examination Vital Signs: Vital Signs Temperature 98.2 F 06/25/17 09:00 Pulse Rate 107 H 06/25/17 09:00 Respiratory Rate 18 06/25/17 09:00 Blood Pressure 101/57 06/25/17 09:00 O2 Sat by Pulse Oximetry (%) 95 06/25/17 10:00 Labs: CBC, BMP 06/25/17 06:25 06/25/17 06:25 Discharge Summary Reason For Visit: CELLULITIS Current Active Problems Atrial fibrillation (Acute) Cellulitis (Acute) Drug rash (Acute) Obesity hypoventilation syndrome (Acute) Penicillin allergy (Acute) Supratherapeutic INR (Acute) Condition: Stable - Instructions Diet, Activity, Other Instructions: resume previous diet and activity Referrals: Mike Boykin MD [Staff Physician] - Aleksey Stevens MD [Staff Physician] - Disposition: HOME - Home Medications Comprehensive Discharge Medication List: Ambulatory Orders Ascorbate Calcium [Vitamin C] 1,000 mg PO DAILY 08/30/15 Cholecalciferol (Vitamin D3) [Vitamin D3] 1,000 unit PO BID 08/30/15 Cyanocobalamin [Vitamin B12 -] 1,000 mcg PO DAILY 08/30/15 Diltiazem [Cardizem -] 30 mg PO TID 08/30/15 Oxycodone/APAP [Percocet - Must Order Individual Components] 1 each NR QID PRN 08/30/15 Simvastatin 10 mg PO HS 08/30/15 Furosemide [Lasix -] 40 mg PO DAILY 06/20/17 Guaifenesin [Mucinex] 600 mg PO DAILY 06/20/17 Multivit-Min/FA/Lycopen/Lutein [Centrum Silver Tablet] 1 each PO DAILY 06/20/17 Potassium Chloride [Klor-Con 10] 10 meq PO DAILY 06/20/17 Warfarin Na [Coumadin -] 7 mg PO ASDIR 06/20/17 Diphenhydramine HCl [Benadryl Capsule -] 25 mg PO Q6H PRN #30 cap 06/25/17 Losartan Potassium [Cozaar -] 50 mg PO DAILY #30 tablet 06/25/17 Metoprolol Succinate [Toprol XL -] 50 mg PO BID #60 tab.sr 06/25/17 Prednisone [Deltasone -] 5 mg PO ASDIR #78 tab 06/25/17
== END 2017-06-25 13:27 | disposition home or self-care (01) | DRG 603 ==
LOC: JER 13:35 → UNDOADMOB 21:05 → JERBED 21:05 → J5S 23:10 → OBSVTOIN 06-23 16:00
PROVIDERS: ADMIT Internal Medicine; ATTEND Internal Medicine
DX: L03.115 Cellulitis of right lower limb (principal); Z68.42 Body mass index [BMI] 45.0-49.9, adult; E66.01 Morbid (severe) obesity due to excess calories; R79.1 Abnormal coagulation profile; Z88.0 Allergy status to penicillin; L27.0 Generalized skin eruption due to drugs and medicaments taken internally; E78.5 Hyperlipidemia, unspecified; I87.2 Venous insufficiency (chronic) (peripheral); I48.2 Chronic atrial fibrillation; K21.9 Gastro-esophageal reflux disease without esophagitis; J44.9 Chronic obstructive pulmonary disease, unspecified; G47.30 Sleep apnea, unspecified; I95.9 Hypotension, unspecified; I10 Essential (primary) hypertension
CPT/HCPCS: 36415; 71010-TC; 73590-TC-RT; 73630-TC-RT; 80048; 80053; 83036; 83605; 83735; 83880; 84100; 85025; 85610; 85730; 87040; 93005; 93010; 99285-25; G0378

== ENCOUNTER 2017-07-30 13:35 | Inpatient (IN) | payer OTHER, MEDICARE ==
[2017-07-30 13:41] VITALS: BMI 50.1
--- NOTE | 2017-07-30 18:15 | PDOC ---
History of Present Illness - General Chief Complaint: Wound Infection Stated Complaint: FOOT INFECTION (WOUND CARE SENT) Time Seen by Provider: 07/30/17 17:43 History Source: Patient - History of Present Illness Timing/Duration: reports: yesterday Location: reports: extremities Past History - Past Medical History Allergies/Adverse Reactions: Allergies Allergy/AdvReac Type Severity Reaction Status Date / Time Penicillins Allergy Severe Swelling Verified 07/30/17 13:41 clindamycin Allergy Mild Rash Verified 07/30/17 13:41 adhesive tape AdvReac Verified 07/30/17 13:41 Home Medications: Ambulatory Orders Ascorbate Calcium [Vitamin C] 1,000 mg PO DAILY 08/30/15 Cholecalciferol (Vitamin D3) [Vitamin D3] 1,000 unit PO BID 08/30/15 Cyanocobalamin [Vitamin B12 -] 1,000 mcg PO DAILY 08/30/15 Diltiazem [Cardizem -] 30 mg PO TID 08/30/15 Oxycodone/APAP [Percocet - Must Order Individual Components] 1 each NR QID PRN 08/30/15 Simvastatin 10 mg PO HS 08/30/15 Furosemide [Lasix -] 40 mg PO DAILY 06/20/17 Guaifenesin [Mucinex] 600 mg PO DAILY 06/20/17 Multivit-Min/FA/Lycopen/Lutein [Centrum Silver Tablet] 1 each PO DAILY 06/20/17 Potassium Chloride [Klor-Con 10] 10 meq PO DAILY 06/20/17 Warfarin Na [Coumadin -] 6 mg PO ASDIR 06/20/17 Losartan Potassium [Cozaar -] 50 mg PO DAILY #30 tablet 06/25/17 Metoprolol Succinate [Toprol XL -] 50 mg PO BID #60 tab.sr 06/25/17 Docusate Sodium [Colace -] 1 cap PO DAILY PRN 07/12/17 Fish Oil/Borage/Flax/Om3,6,9#1 [[place] 3-6-9 1,200 mg Softgel] 1 cap PO DAILY Anemia: No Asthma: No Cancer: No Cardiac Disorders: Yes (ATRIAL FIBRILLATION) CVA: No COPD: Yes CHF: No Dementia: No Diabetes: No GI Disorders: No Disorders: No HTN: Yes Hypercholesterolemia: Yes Liver Disease: No Seizures: No Thyroid Disease: Yes (LEFT THYROID LUMP) Other medical history: mrsa wound leg,venous insufficiency - Surgical History Abdominal Surgery: No Appendectomy: No Cardiac Surgery: No Cholecystectomy: No Lung Surgery: No Neurologic Surgery: No Orthopedic Surgery: Yes (BILATERAL KNEE REPLACEMENT) - Immunization History Immunization Up to Date: No - Psycho/Social/Smoking Cessation Hx Anxiety: No Suicidal Ideation: No Smoking History: Never smoked Have you smoked in the past 12 months: No Number of Cigarettes Smoked Daily: 0 If you are a former smoker, when did you quit?: 1985 Cigars Per Day: 0 Information on smoking cessation initiated: No Hx Alcohol Use: No Drug/Substance Use Hx: No Substance Use Type: None Hx Substance Use Treatment: No Review of Systems - Review of Systems Constitutional: No: Chills, Fever Respiratory: No: Shortness of Breath Cardiac (ROS): No: Chest Pain, Palpitations ABD/GI: No: Nausea, Vomiting *Physical Exam - Vital Signs Last Vital Signs Temp Pulse Resp BP Pulse Ox 98.1 F 118 H 19 110/83 98 07/30/17 13:39 07/30/17 13:39 07/30/17 13:39 07/30/17 13:39 07/30/17 13:39 - Physical Exam General Appearance: Yes: Appropriately Dressed. No: Apparent Distress HEENT: positive: Normal Voice Neck: positive: Supple Respiratory/Chest: positive: Lungs Clear, Normal Breath Sounds. negative: Respiratory Distress Cardiovascular: positive: Regular Rate, S1, S2 Integumentary: positive: Dry, Warm, Other (RLE diffuselyt edematous venous stasis changes to RLE w/ venous stasis changes and diffuse weeping and tenderness, large ulcer located to posterior calf, no pus, unable to palpate pedal pulses b/l 2/2 swelling) Neurologic: positive: Fully Oriented, Alert, Normal Mood/Affect ED Treatment Course - RADIOLOGY Radiology Studies Ordered: Category Date Time Status CHEST X-RAY PORTABLE* [RAD] Stat Radiology 07/30/17 18:03 Ordered LEG TIB/FIB-RIGHT [RAD] Stat Radiology 07/30/17 18:03 Ordered Medical Decision Making - Medical Decision Making 07/30/17 18:10 72 yo F, h/o afib on coumadin, OA, RA, sjogrens, HTN, COPD, venous stasis w/ b/ l LE ulcers, R>>>L, cellulitis, here w/ worsening pain to RLE since yesterday. Currently has visiting nurse to care for wound and states nurse told here, that there was a foul odor today. Pt denies f/c. No recent trauma See exam ? Recurrrent RLE cellulitis H/o venous stasis dermatitis to RLE w/ worsening pain and ? foul odor Tachy at triage but afebrile w/ venous stasis changes to RLE without overt evidence of acute infection -labs -XR -wound c/s (Pt f/u with Dr Jose Kaplan) -anticipate admission (PMD Dr Workman) 07/30/17 18:18 07/30/17 18:27 07/30/17 18:28 07/30/17 18:33 Case d/w Dr Cedillo (covering for Dr Workman), wants pt admitted to Dr Griffith 07/30/17 18:34 07/30/17 18:35 07/30/17 18:43 Case d/w Dr Kaplan who will continue to follow pt inhouse, agrees w/ vanco at this time *DC/Admit/Observation/Transfer Diagnosis at time of Disposition: Cellulitis Qualifiers: Site of cellulitis: extremity Site of cellulitis of extremity: lower extremity Laterality: right Qualified Code(s): L03.115 - Cellulitis of right lower limb Venous stasis dermatitis Qualifiers: Laterality: right Qualified Code(s): I87.2 - Venous insufficiency (chronic) ( peripheral) - Discharge Dispostion Condition at time of disposition: Fair Admit: Yes - Referrals Referrals: Mike Boykin MD [Primary Care Provider] -
[2017-07-30] MEDS ORDERED: VANCOMYCIN 1 GRAM (PRE-DOCKED) 1,000 MG/250 ML BAG IVPB ONE ×2 (18:32→20:00)
[2017-07-30 18:55] LABS: BASOPHIL 0.6 % (0-2.0); EOSINOPHIL 1.3 % (0-4.5); MCH 28.4 pg (25.7-33.7); MCHC 32.5 g/dl (32.0-36.0); MEAN CELL VOLUME 87.4 fl (80-96); MEAN PLT VOLUME 7.3 fl (7.5-11.1); NEUTROPHILS 70.7 % (42.8-82.8); PLATELET COUNT 316 K/MM3 (134-434); WHITE BLOOD COUNT 7.2 K/mm3 (4.0-10.0)
[2017-07-30] MEDS ORDERED: DOCUSATE SODIUM 100 MG CAPSULE (FP) PO PRN (19:25)
[2017-07-30] MEDS ORDERED: WARFARIN NA 7.5 MG TABLET (FP) PO ONE (19:28)
[2017-07-30 19:30] LABS: ALK PHOS 130 U/L (45-117); ANION GAP 6 (8-16); BILIRUBIN,TOTAL 0.7 mg/dL (0.2-1.0); CALCIUM 8.5 mg/dL (8.5-10.1); CO2 34 mmol/L (21-32); CREATININE 0.6 mg/dL (0.55-1.02); GLUCOSE,RANDOM 80 mg/dL (74-106); SGOT/AST 11 U/L (15-37); SGPT/ALT 19 U/L (12-78); TOT PROT 6.5 g/dl (6.4-8.2)
--- NOTE | 2017-07-30 19:35 | HP ---
Admitting History and Physical - Admission Chief Complaint: rigth leg increased pain, odor History of Present Illness: 72 yo female, h/o chronic venous insufficiency with LE edema, following with wound care clinic for right leg ulcer, presents to hospital with increased pain , increased fluid coming from right leg wound and a foul odor when visited by nurse this morning at home. Patient was hospitalized a few weeks ago for cellulitis, not currently on antibiotics any longer. No fevers, no nausea or vomiting. History Source: Patient, Family Member - Past Medical History Cardiovascular: Yes: AFIB, HTN, Other (h/o DVT) Pulmonary: Yes: COPD, Sleep Apnea Hepatobiliary: Yes: Other (fatty liver disease) Heme/Onc: Yes: Anemia Musculoskeletal: Yes: Chronic low back pain (/spinal stenosis) Rheumatology: Yes: Rheumatoid Arthritis Endocrine: Yes: Osteopenia, Other (obesity, thyroid nodule) - Past Surgical History Past Surgical History: Yes: Joint Replacement (right knee) - Smoking History Smoking history: Former smoker Have you smoked in the past 12 months: No Aproximately how many cigarettes per day: 0 If you are a former smoker, when did you quit?: 1984 - Alcohol/Substance Use Hx Alcohol Use: No - Social History Usual Living Arrangement: Yes: With Spouse Home Medications - Allergies Allergies/Adverse Reactions: Allergies Allergy/AdvReac Type Severity Reaction Status Date / Time Penicillins Allergy Severe Swelling Verified 07/30/17 13:41 clindamycin Allergy Mild Rash Verified 07/30/17 13:41 adhesive tape AdvReac Verified 07/30/17 13:41 - Home Medications Home Medications: Ambulatory Orders Ascorbate Calcium [Vitamin C] 1,000 mg PO DAILY 08/30/15 Cholecalciferol (Vitamin D3) [Vitamin D3] 1,000 unit PO BID 08/30/15 Cyanocobalamin [Vitamin B12 -] 1,000 mcg PO DAILY 08/30/15 Diltiazem [Cardizem -] 30 mg PO TID 08/30/15 Oxycodone/APAP [Percocet - Must Order Individual Components] 1 each NR QID PRN 08/30/15 Simvastatin 10 mg PO HS 08/30/15 Furosemide [Lasix -] 40 mg PO DAILY 06/20/17 Guaifenesin [Mucinex] 600 mg PO DAILY 06/20/17 Multivit-Min/FA/Lycopen/Lutein [Centrum Silver Tablet] 1 each PO DAILY 06/20/17 Potassium Chloride [Klor-Con 10] 10 meq PO DAILY 06/20/17 Warfarin Na [Coumadin -] 6 mg PO ASDIR 06/20/17 Losartan Potassium [Cozaar -] 50 mg PO DAILY #30 tablet 06/25/17 Metoprolol Succinate [Toprol XL -] 50 mg PO BID #60 tab.sr 06/25/17 Docusate Sodium [Colace -] 1 cap PO DAILY PRN 07/12/17 Fish Oil/Borage/Flax/Om3,6,9#1 [[place] 3-6-9 1,200 mg Softgel] 1 cap PO DAILY Family Disease History - Family Disease History Family Disease History: Other: Father (alcohol abuse), Mother (rheumatoid arthritis) Review of Systems - Review of Systems Constitutional: denies: Chills, Fever, Loss of Appetite Eyes: reports: No Symptoms HENT: denies: Difficult Swallowing, Epistaxis Neck: denies: Pain on Movement, Stiffness, Tenderness Cardiovascular: denies: Chest Pain, Palpitations Respiratory: denies: Cough, SOB Gastrointestinal: denies: Abdominal Pain, Diarrhea, Nausea, Vomiting Genitourinary: denies: Burning, Discharge, Dysuria Neurological: denies: Change in LOC Physical Examination Vital Signs: Vital Signs Temperature 98.1 F 07/30/17 13:39 Pulse Rate 118 H 07/30/17 13:39 Respiratory Rate 19 07/30/17 13:39 Blood Pressure 110/83 07/30/17 13:39 O2 Sat by Pulse Oximetry (%) 98 07/30/17 13:39 Constitutional: Yes: Well Nourished, No Distress, Calm Eyes: Yes: Conjunctiva Clear, EOM Intact, PERRL HENT: Yes: Atraumatic, Normocephalic Neck: Yes: Supple, Trachea Midline Cardiovascular: Yes: Regular Rate and Rhythm, S1, S2. No: Murmur Respiratory: Yes: Regular, CTA Bilaterally. No: Rales, Rhonchi, Wheezes Gastrointestinal: Yes: Normal Bowel Sounds, Soft, Abdomen, Obese. No: Distention, Tenderness Musculoskeletal: Yes: Other (OA changes b/l knees) Extremities: Yes: Erythema (right leg), Other (chronic venous stasis changes) Edema: LLE: 3+, RLE: 3+ Neurological: Yes: Alert, Oriented Labs: CBC, BMP 07/30/17 18:41 Problem List - Problems (1) Cellulitis Assessment/Plan: -start IV vanco -Wound care consult -ID consult for abx Code(s): L03.90 - CELLULITIS, UNSPECIFIED Qualifiers: Site of cellulitis: extremity Site of cellulitis of extremity: lower extremity Laterality: right Qualified Code(s): L03.115 - Cellulitis of right lower limb (2) Venous stasis dermatitis Assessment/Plan: -start IV lasix, local wound care Code(s): I87.2 - VENOUS INSUFFICIENCY (CHRONIC) (PERIPHERAL) Qualifiers: Laterality: right Qualified Code(s): I87.2 - Venous insufficiency ( chronic) (peripheral) (3) Atrial fibrillation Assessment/Plan: -rate controlled -on coumadin for AC (give 7.5 tonight,as INR low) Code(s): I48.91 - UNSPECIFIED ATRIAL FIBRILLATION Qualifiers: Atrial fibrillation type: chronic Qualified Code(s): I48.2 - Chronic atrial fibrillation (4) HTN (hypertension) Assessment/Plan: -cont anti-hypertensives Code(s): I10 - ESSENTIAL (PRIMARY) HYPERTENSION
[2017-07-30] MEDS ORDERED: WARFARIN NA 5 MG TABLET (UD) ONE (19:53)
[2017-07-30] MEDS ORDERED: WARFARIN NA 1 MG TABLET (FP) ONE (19:53)
[2017-07-30] MEDS ORDERED: VANCOMYCIN 1 GRAM (PRE-DOCKED) 250 ML IVPB ONE (19:53)
[2017-07-30] MEDS: FUROSEMIDE 40 MG/4 ML INJECTABLE VIAL IVPUSH SCH (19:59)
[2017-07-30] MEDS ORDERED: METOPROLOL SUCCINATE 50 MG TAB.SR.24H (FP) ONE (21:05)
[2017-07-30] MEDS ORDERED: oxyCODONE HCL 5 MG TABLET ONE (21:05)
[2017-07-30] MEDS ORDERED: dilTIAZem HCL 30 MG TABLET (FP) ONE (21:06)
[2017-07-30] MEDS: METOPROLOL SUCCINATE 50 MG TAB.SR.24H (FP) PO SCH (21:18)
[2017-07-30] MEDS: oxyCODONE HCL 5 MG TABLET PO PRN (21:18)
[2017-07-30] MEDS: dilTIAZem HCL 30 MG TABLET (FP) PO SCH (21:18)
[2017-07-30] MEDS ORDERED: diphenhydrAMINE HCL 25 MG CAPSULE (FP) PO ONE (21:24)
[2017-07-30] MEDS ORDERED: diphenhydrAMINE HCL 50 MG CAPSULE PO ONE (21:34)
[2017-07-30] MEDS ORDERED: MAG HYDROX/AL HYDROX/SIMETH 30 ML UNIT-DOSE CUP ONE (21:43)
[2017-07-30] MEDS ORDERED: MAG HYDROX/AL HYDROX/SIMETH 30 ML UNIT-DOSE CUP PO ONE (21:44)
[2017-07-30] MEDS ORDERED: VANCOMYCIN 1,000 MG in DEXTROSE 5%-WATER - 250 ML IVPB SCH (22:00)
[2017-07-30] MEDS ORDERED: SIMETHICONE 80 MG TAB.CHEW (FP) PO PRN (23:43)
[2017-07-30] MEDS ORDERED: morphine CARPU-JECT 2 MG/1 ML DISP.SYRIN IVPUSH PRN (23:44)
[2017-07-31] MEDS: ATORVASTATIN CA 10 MG TABLET (FP) PO SCH ×2 (00:51→22:07)
[2017-07-31] MEDS: CHOLECALCIFEROL (VITAMIN D3) 1,000 UNIT TABLET (FP) PO SCH ×3 (00:51→22:07)
[2017-07-31] MEDS: dilTIAZem HCL 30 MG TABLET (FP) PO SCH ×3 (06:23→22:07)
[2017-07-31 07:57] LABS: BASOPHIL 0.4 % (0-2.0); EOSINOPHIL 1.5 % (0-4.5); MCH 27.9 pg (25.7-33.7); MEAN CELL VOLUME 87.4 fl (80-96); MEAN PLT VOLUME 7.5 fl (7.5-11.1); NEUTROPHILS 75.8 % (42.8-82.8); PLATELET COUNT 316 K/MM3 (134-434); RDW 14.9 % (11.6-15.6); WHITE BLOOD COUNT 8.2 K/mm3 (4.0-10.0)
[2017-07-31 08:13] LABS: INR 2.65 (0.82-1.09); PROTHROMBIN TIME (PATIENT) 29.7 SEC (9.98-11.88)
[2017-07-31 09:23] LABS: ALBUMIN 2.9 g/dl (3.4-5.0); ALK PHOS 123 U/L (45-117); ANION GAP 8 (8-16); BILIRUBIN,TOTAL 0.7 mg/dL (0.2-1.0); CALCIUM 8.6 mg/dL (8.5-10.1); CO2 32 mmol/L (21-32); CREATININE 0.6 mg/dL (0.55-1.02); GLUCOSE,RANDOM 94 mg/dL (74-106); SGOT/AST 15 U/L (15-37); SGPT/ALT 18 U/L (12-78)
--- NOTE | 2017-07-31 09:39 | CONSULT ---
- Consultation REQUESTING PROVIDER: Jose Kaplan (Vascular Surgery / Wound Care CONSULT REQUEST: We have been asked to evaluate her RLE wound/cellulitis PCP: En Griffith MD HPI: Called to evaluate 72yo female well known to [facility]. PMHx as noted below. Admitted to [facility] with c/o increased right leg pain and new onset of odor. She is followed by visiting nurse who sent her to hospital for further evaluation. Denies n/v/f/c, CP, SOB. PMHx: Chronic venous insufficiency with LE edema, AFIB, HTN, DVT, COPD, Sleep Apnea, fatty liver disease, Anemia, Chronic low back pain (spinal stenosis), Rheumatoid Arthritis, Osteopenia, Morbid obesity, thyroid nodule PSHx: Right total knee replacement Smoking history: Former smoker Have you smoked in the past 12 months: No Aproximately how many cigarettes per day: 0 If you are a former smoker, when did you quit?: 1984 Home Meds Ascorbate Calcium [Vitamin C] 1,000 mg PO DAILY 08/30/15 Cholecalciferol (Vitamin D3) [Vitamin D3] 1,000 unit PO BID 08/30/15 Cyanocobalamin [Vitamin B12 -] 1,000 mcg PO DAILY 08/30/15 Diltiazem [Cardizem -] 30 mg PO TID 08/30/15 Oxycodone/APAP [Percocet - Must Order Individual Components] 1 each NR QID PRN 08/30/15 Simvastatin 10 mg PO HS 08/30/15 Furosemide [Lasix -] 40 mg PO DAILY 06/20/17 Guaifenesin [Mucinex] 600 mg PO DAILY 06/20/17 Multivit-Min/FA/Lycopen/Lutein [Centrum Silver Tablet] 1 each PO DAILY 06/20/17 Potassium Chloride [Klor-Con 10] 10 meq PO DAILY 06/20/17 Warfarin Na [Coumadin -] 6 mg PO ASDIR 06/20/17 Losartan Potassium [Cozaar -] 50 mg PO DAILY #30 tablet 06/25/17 Metoprolol Succinate [Toprol XL -] 50 mg PO BID #60 tab.sr 06/25/17 Docusate Sodium [Colace -] 1 cap PO DAILY PRN 07/12/17 Fish Oil/Borage/Flax/Om3,6,9#1 [[place] 3-6-9 1,200 mg Softgel] 1 cap PO DAILY Allergies PCN --> swelling Clindamycin --> mild rash Adhesive Tape --> localized rash ROS: CONSTITUTIONAL: Absent: fever, chills, diaphoresis, generalized weakness, malaise, loss of appetite, weight change COR: Absent: chest pain, syncope, palpitations, irregular heart rate, lightheadedness, peripheral edema RESPIRATORY: Absent: cough, shortness of breath, dyspnea with exertion, wheezing , stridor, hemoptysis GASTROINTESTINAL:Absent: abdominal pain, abdominal distension, nausea, vomiting , diarrhea, constipation, melena, hematochezia GENITOURINARY: Absent: dysuria, frequency, urgency, hesitancy, hematuria, flank pain, genital pain MUSCULOSKELETAL: Absent: myalgia, arthralgia, joint swelling, back pain, neck pain SKIN: See HPI. HEMATOLOGIC/IMMUNOLOGIC: Absent: easy bleeding, easy bruising, lymphadenopathy NEUROLOGIC: Absent: headache, focal weakness, paresthesias, dizziness, unsteady gait, mental status changes, bladder or bowel incontinence PSYCHIATRIC: Absent: anxiety, depression, suicidal or homicidal ideation, hallucinations. PE: General: Well Nourished, No Distress, Calm Head: NC. AT. Eyes: PERRL, sclera anicteric, conjunctiva clear. NECK: Normal ROM, supple without lymphadenopathy, JVD, or masses. COR: afib (rate controlled) PULM: CTA Bilaterally anteriorly. MUSCULOSKEL: OA changes b/l knees LE: Chronic venous stasis changes bilat. RLE erythema. ~ 3 x 3 cm stasis ulcer to posterior aspect of calf. +3 weeping edema Last Vital Signs Temp Pulse Resp BP Pulse Ox 98 F 120 H 20 107/62 95 07/31/17 06:00 07/31/17 06:00 07/31/17 06:00 07/31/17 06:00 07/31/17 01:47 CBC, BMP 07/31/17 06:00 INR, PTT INR 2.65 (0.82-1.09) H D 07/31/17 06:00 Problem List - Problems (1) Cellulitis Assessment/Plan: Dressing changed during consultation Keep RLE extremity elevated while in bed or seated in chair. Daily dressing changes with xeroform --> 4x4 --> abd pads --> kerlix --> light evette compression --> elevation ID following for abx Above discussed with Dr. Kaplan and agrees Code(s): L03.90 - CELLULITIS, UNSPECIFIED Qualifiers: Site of cellulitis: extremity Site of cellulitis of extremity: lower extremity Laterality: right Qualified Code(s): L03.115 - Cellulitis of right lower limb (2) Venous stasis dermatitis Code(s): I87.2 - VENOUS INSUFFICIENCY (CHRONIC) (PERIPHERAL) Qualifiers: Laterality: right Qualified Code(s): I87.2 - Venous insufficiency ( chronic) (peripheral) Visit type - Case Type Case Type: ED Admission - Emergency Emergency Visit: Yes ED Registration Date: 07/30/17 Care time: The patient presented to the Emergency Department on the above date and was hospitalized for further evaluation of their emergent condition. - New patient This patient is new to me today: Yes Date on this admission: 07/31/17
[2017-07-31] MEDS ORDERED: [UNRECOGNIZED DRUG - OTHER] PO SCH (10:00)
[2017-07-31] MEDS ORDERED: FISH OIL PO SCH (10:00)
[2017-07-31] MEDS ORDERED: FLAX PO SCH (10:00)
[2017-07-31] MEDS ORDERED: BORAGE PO SCH (10:00)
--- NOTE | 2017-07-31 10:17 | PN ---
Progress Note (short form) - Note Progress Note: ID consult dictated imp/reccd 72 year old female with venous stasis, obesity, RA (no meds) recently in hospital in 06/21 to 06/25 for cellulitis and venous stasis complicated by drug rash (clindamycin?) needed prednisone has continued to hve wound care at home with VNS leg became more red and foulsmelling over the weekend constantly drains serous fluid no fevers or chills given vancomycin in ED- developed erythema and rash at infusion site and it was stopped cellulitiis venous stasis multiple antibiotic allergies obesu=ity switch to zyvox wound care per surgery Problem List - Problems (1) Cellulitis Code(s): L03.90 - CELLULITIS, UNSPECIFIED Qualifiers: Site of cellulitis: extremity Site of cellulitis of extremity: lower extremity Laterality: right Qualified Code(s): L03.115 - Cellulitis of right lower limb (2) Venous stasis dermatitis Code(s): I87.2 - VENOUS INSUFFICIENCY (CHRONIC) (PERIPHERAL) Qualifiers: Laterality: right Qualified Code(s): I87.2 - Venous insufficiency ( chronic) (peripheral) (3) Allergy to multiple antibiotics Code(s): Z88.1 - ALLERGY STATUS TO OTHER ANTIBIOTIC AGENTS STATUS (4) Obesity Code(s): E66.9 - OBESITY, UNSPECIFIED
[2017-07-31] MEDS ORDERED: LINEZOLID 600 MG PREMIX BAG 300 ML IVPB SCH (11:00)
[2017-07-31] MEDS: POTASSIUM CHLORIDE TABS 10 MEQ TABLET.ER (FP) PO SCH (11:44)
[2017-07-31] MEDS: guaiFENesin 600 MG TABLET.ER (FP) PO SCH (11:44)
[2017-07-31] MEDS: ASCORBIC ACID 500 MG TABLET (FP) PO SCH (11:44)
[2017-07-31] MEDS: MULTIVITAMINS THER W-MINERALS COMBO TABLET (FP) PO SCH (11:44)
[2017-07-31] MEDS: CYANOCOBALAMIN 1,000 MCG TABLET (FP) PO SCH (11:44)
[2017-07-31] MEDS: LOSARTAN POTASSIUM 50 MG TABLET (FP) PO SCH (11:47)
[2017-07-31] MEDS: METOPROLOL SUCCINATE 50 MG TAB.SR.24H (FP) PO SCH ×2 (11:47→22:07)
--- NOTE | 2017-07-31 12:28 | PN ---
Progress Note, Physician Chief Complaint: Ms Torres says she is not feeling well, she says her legs are swollen and weeping. She also says she is short of breath when she lies flat. She is currently refusing lasix and she says it makes her urinate too much. No cp or n/ v. - Current Medication List Current Medications: Active Medications Ascorbic Acid (Vitamin C -) 1,000 mg PO DAILY [facility] Last Admin: 07/31/17 11:44 Dose: 1,000 mg Atorvastatin Calcium (Lipitor -) 10 mg PO HS [facility] Last Admin: 07/31/17 00:51 Dose: 10 mg Cholecalciferol (Vitamin D3 -) 1,000 unit PO BID [facility] Last Admin: 07/31/17 11:45 Dose: 1,000 unit Cyanocobalamin (Vitamin B12 -) 1,000 mcg PO DAILY [facility] Last Admin: 07/31/17 11:44 Dose: 1,000 mcg Diltiazem HCl (Cardizem -) 30 mg PO TID [facility] Last Admin: 07/31/17 06:23 Dose: 30 mg Docusate Sodium (Colace -) 100 mg PO DAILY PRN PRN Reason: CONSTIPATION Furosemide (Lasix Injection -) 40 mg IVPUSH DAILY [facility] Last Admin: 07/30/17 19:59 Dose: Not Given Guaifenesin (Mucinex -) 600 mg PO DAILY [facility] Last Admin: 07/31/17 11:44 Dose: 600 mg Linezolid (Zyvox 600 Mg Premix Bag (Restricted To Id) -) 300 mls @ 300 mls/hr IVPB BID [facility] PRN Reason: Protocol Losartan Potassium (Cozaar -) 50 mg PO DAILY [facility] Last Admin: 07/31/17 11:47 Dose: 50 mg Metoprolol Succinate (Toprol Xl -) 50 mg PO BID [facility] Last Admin: 07/31/17 11:47 Dose: 50 mg Morphine Sulfate (Morphine Injection -) 1 mg IVPUSH Q4H PRN PRN Reason: PAIN LEVEL 6-10 Last Admin: 07/31/17 00:52 Dose: 1 mg Multivitamins/Minerals (Theragran-M) 1 each PO DAILY [facility] Last Admin: 07/31/17 11:44 Dose: 1 each Non-Formulary Medication (Fish Oil/Borage/Flax/Om3,6,9#1 [[place] 3-6-9 1,200 Mg Softgel]) 1 cap PO DAILY [facility] Oxycodone HCl (Roxicodone -) 10 mg PO Q4H PRN PRN Reason: PAIN Last Admin: 07/30/17 21:18 Dose: 10 mg Potassium Chloride (K-Dur -) 10 meq PO DAILY [facility] Last Admin: 07/31/17 11:44 Dose: 10 meq Simethicone (Mylicon -) 80 mg PO Q4H PRN PRN Reason: GAS Last Admin: 07/31/17 00:51 Dose: 80 mg Warfarin Sodium 5 mg/ Warfarin (Sodium 1 mg) 6 mg PO DAILY@1800 [facility] - Objective Vital Signs: Vital Signs Temperature 36.6 C 07/31/17 06:00 Pulse Rate 120 H 07/31/17 06:00 Respiratory Rate 20 07/31/17 06:00 Blood Pressure 107/62 07/31/17 06:00 O2 Sat by Pulse Oximetry (%) 95 07/31/17 01:47 Constitutional: Yes: No Distress, Calm, Obese Cardiovascular: Yes: Tachycardia, Pulse Irregular. No: Gallop, Murmur, Rub Respiratory: Yes: Regular, Rhonchi (slight, diffuse). No: CTA Bilaterally, Rales, Tachypnea, Wheezes Gastrointestinal: Yes: Normal Bowel Sounds, Soft. No: Distention, Tenderness Extremities: Yes: Erythema Edema: LLE: 3+, RLE: 3+ Labs: CBC, BMP 07/31/17 06:00 07/31/17 06:00 INR, PTT INR 2.65 (0.82-1.09) H D 07/31/17 06:00 Problem List - Problems (1) Cellulitis Assessment/Plan: -patient returns with cellulitis -also with swelling and weeping -admitted to the hospital -ID following and appreciate assistance -multiple antibiotic allergies -wound care following -on zyvox Code(s): L03.90 - CELLULITIS, UNSPECIFIED Qualifiers: Site of cellulitis: extremity Site of cellulitis of extremity: lower extremity Laterality: right Qualified Code(s): L03.115 - Cellulitis of right lower limb (2) CHF (congestive heart failure) Assessment/Plan: -patient with signs of CHF (leg edema, orthopnea, congestion on chest x-ray) -unsure if had ECHO as an outpatient -consult cardiology -order ECHO -patient refusing lasix currently Code(s): I50.9 - HEART FAILURE, UNSPECIFIED Qualifiers: Congestive heart failure type: unspecified congestive heart failure type Congestive heart failure chronicity: unspecified congestive heart failure chronicity Qualified Code(s): I50.9 - Heart failure, unspecified (3) Atrial fibrillation with RVR Assessment/Plan: -suspect elevated secondary to cellulitis and fluid overload -continue metoprolol and diltiazem -continue coumadin -cardiology consult Code(s): I48.91 - UNSPECIFIED ATRIAL FIBRILLATION (4) HTN (hypertension) Assessment/Plan: -currently controlled -continue current management Code(s): I10 - ESSENTIAL (PRIMARY) HYPERTENSION
--- NOTE | 2017-07-31 12:39 | CONS ---
DATE OF CONSULTATION: DATE OF DICTATION: 07/31/2017 REQUESTING PHYSICIAN: Pa Cedillo MD HISTORY OF PRESENT ILLNESS: This is a 72-year-old woman who lives at home. She was recently in the hospital in May from the to June 25 for cellulitis, venous stasis, and drug rash requiring steroids. She was originally given clindamycin in the emergency room and subsequently developed a diffuse and progressive rash. In the hospital, she received several doses of vancomycin, ultimately required prednisone. She has been having VNS services for wound care at home for her venous stasis. Over the long weekend, she noticed increased drainage and erythema of the right lower extremity as well as accompanying foul odor, and she was advised to come to the hospital. There is no associated fevers or chills. PAST MEDICAL HISTORY: Notable for atrial fibrillation, rheumatoid arthritis. She is currently off medications. She has been on multiple medications in the past. She has a history of fibromyalgia, Sjogrens syndrome, hypertension, COPD, sleep apnea, atrial fibrillation. SURGICAL HISTORY: Notable for bilateral knee replacement. She has a history of MRSA infection in the leg about 10 years ago. FAMILY HISTORY: Noncontributory. SOCIAL HISTORY: A former smoker, she stopped many years ago. 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 They have no children. ALLERGIES: She is allergic to PENICILLIN which gave her swelling of her body. She is allergic we think to CLINDAMYCIN which gave her a diffuse rash. MEDICATIONS: Her medications at home include potassium, Lasix, fish oil, Cardizem, B12, vitamin D3, vitamin C, multivitamins, Toprol XL, Cozaar, Mucinex, Coumadin, and simvastatin. REVIEW OF SYSTEMS: She has no fevers or chills, nausea or vomiting, diarrhea, or dysuria. Of note, in the emergency room, she received vancomycin. During the infusion, she developed erythema and rash on her arm, and she was given Benadryl at that time. PHYSICAL EXAMINATION General: She is awake and alert. She is an obese woman. She weighs 320 pounds. Vital signs: Her temperature is 98, her pulse is 120, blood pressure is 107/62, respiratory rate 20. She is saturating 95% on room air. She has had no fevers since admission. HEENT: She is normocephalic. Her eyes are anicteric. Neck: Supple. Lungs: Clear to auscultation. Heart: Regular rate and rhythm. Abdomen: Soft, nontender. Skin: She has no evidence of any cellulitis or any rash on her body. Her right leg is weeping. It is diffusely red. There are venous stasis changes with some superficial skin openings. Her leg is warm. DIAGNOSTIC DATA: Her labs are notable for a white count of 8.2, hemoglobin 13.7, platelets of 316. INR 2.6. BUN 14, creatinine 0.6, alkaline phosphatase 123. SUMMARY: This is a 72-year-old woman with morbid obesity and rheumatoid arthritis admitted with venous stasis, cellulitis of her legs, multiple antibiotic allergies including PENICILLIN and CLINDAMYCIN and possible localized reaction to VANCOMYCIN. Would suggest at this time that we switch her to Zyvox with wound care per surgery. Further recommendations to follow. JERED TUCKER M.D. [id number]
--- NOTE | 2017-07-31 15:02 | EKG ---
Test Reason : Blood Pressure : / mmHG Vent. Rate : 116 BPM Atrial Rate : 090 BPM P-R Int : 000 ms QRS Dur : 082 ms QT Int : 338 ms P-R-T Axes : 000 053 019 degrees QTc Int : 469 ms POOR DATA QUALITY, INTERPRETATION MAY BE ADVERSELY AFFECTED ATRIAL FIBRILLATION WITH RAPID VENTRICULAR RESPONSE SEPTAL INFARCT , AGE UNDETERMINED ABNORMAL ECG WHEN COMPARED WITH ECG OF 20-JUN-2017 15:20, SEPTAL INFARCT IS NOW PRESENT Confirmed by KEO HOWARD MD ([id number]) on 07/31/2017 3:02:26 PM Referred By: Confirmed By:KEO HOWARD MD
--- NOTE | 2017-07-31 15:16 | CON.CARD ---
Cardiology Consult (text) - Consultation Consultation Note: CC: afib, chf? 72 yo with h/o afib on coumadin, htn, hl, morbid obesity, copd, obesity hypoventilation syndrome, severe djd/oa/spinal stenosis, sjogren's, RA, gerd who p/w worsening of her chronic LE cellulitis. Recent admit end of may for LE cellulitis chronic le edema, erythema, weeping followed by wound clinic here. now with worsening of le edema, erythema and discomfort. no f/c/s. over the past month since last admit she states she has had progressive abdominal distension, orthopnea and turner. declines to weigh herself. Also declines to take lasix b/c of urinary incontinence. denies cp, palps, dizziness. sees dr adams for cardio PMH/pshx: per hpi, additionally: Cardiovascular: Yes: AFIB, HTN, Other (h/o DVT) Pulmonary: Yes: COPD, Sleep Apnea Hepatobiliary: Yes: Other (fatty liver disease) Heme/Onc: Yes: Anemia Musculoskeletal: Yes: Chronic low back pain (/spinal stenosis) Rheumatology: Yes: Rheumatoid Arthritis Endocrine: Yes: Osteopenia, Other (obesity, thyroid nodule) Past Surgical History: Yes: Joint Replacement (right knee) Social hx Hx Alcohol Use: No Smoking history: former smoked fam hx: no premature cad ros: per hpi, no n/v/d, h/a, cough , congestion, visual disturbances, bleeding. Ambulatory Orders Ascorbate Calcium [Vitamin C] 1,000 mg PO DAILY 08/30/15 Cholecalciferol (Vitamin D3) [Vitamin D3] 1,000 unit PO BID 08/30/15 Cyanocobalamin [Vitamin B12 -] 1,000 mcg PO DAILY 08/30/15 Diltiazem [Cardizem -] 30 mg PO TID 08/30/15 Oxycodone/APAP [Percocet - Must Order Individual Components] 1 each NR QID PRN 08/30/15 Simvastatin 10 mg PO HS 08/30/15 Furosemide [Lasix -] 40 mg PO DAILY 06/20/17 Guaifenesin [Mucinex] 600 mg PO DAILY 06/20/17 Multivit-Min/FA/Lycopen/Lutein [Centrum Silver Tablet] 1 each PO DAILY 06/20/17 Potassium Chloride [Klor-Con 10] 10 meq PO DAILY 06/20/17 Warfarin Na [Coumadin -] 6 mg PO ASDIR 06/20/17 Losartan Potassium [Cozaar -] 50 mg PO DAILY #30 tablet 06/25/17 Metoprolol Succinate [Toprol XL -] 50 mg PO BID #60 tab.sr 06/25/17 Docusate Sodium [Colace -] 1 cap PO DAILY PRN 07/12/17 Fish Oil/Borage/Flax/Om3,6,9#1 [[place] 3-6-9 1,200 mg Softgel] 1 cap PO DAILY Current Medications Ascorbic Acid (Vitamin C -) 1,000 mg PO DAILY [facility] Last Admin: 07/31/17 11:44 Dose: 1,000 mg Atorvastatin Calcium (Lipitor -) 10 mg PO HS [facility] Last Admin: 07/31/17 00:51 Dose: 10 mg Cholecalciferol (Vitamin D3 -) 1,000 unit PO BID [facility] Last Admin: 07/31/17 11:45 Dose: 1,000 unit Cyanocobalamin (Vitamin B12 -) 1,000 mcg PO DAILY [facility] Last Admin: 07/31/17 11:44 Dose: 1,000 mcg Diltiazem HCl (Cardizem -) 30 mg PO TID [facility] Last Admin: 07/31/17 13:53 Dose: 30 mg Docusate Sodium (Colace -) 100 mg PO DAILY PRN PRN Reason: CONSTIPATION Furosemide (Lasix Injection -) 40 mg IVPUSH DAILY [facility] Last Admin: 07/30/17 19:59 Dose: Not Given Guaifenesin (Mucinex -) 600 mg PO DAILY [facility] Last Admin: 07/31/17 11:44 Dose: 600 mg Linezolid (Zyvox 600 Mg Premix Bag (Restricted To Id) -) 300 mls @ 300 mls/hr IVPB BID [facility] PRN Reason: Protocol Losartan Potassium (Cozaar -) 50 mg PO DAILY [facility] Last Admin: 07/31/17 11:47 Dose: 50 mg Metoprolol Succinate (Toprol Xl -) 50 mg PO BID [facility] Last Admin: 07/31/17 11:47 Dose: 50 mg Morphine Sulfate (Morphine Injection -) 1 mg IVPUSH Q4H PRN PRN Reason: PAIN LEVEL 6-10 Last Admin: 07/31/17 00:52 Dose: 1 mg Multivitamins/Minerals (Theragran-M) 1 each PO DAILY [facility] Last Admin: 07/31/17 11:44 Dose: 1 each Non-Formulary Medication (Fish Oil/Borage/Flax/Om3,6,9#1 [[place] 3-6-9 1,200 Mg Softgel]) 1 cap PO DAILY [facility] Oxycodone HCl (Roxicodone -) 10 mg PO Q4H PRN PRN Reason: PAIN Last Admin: 07/30/17 21:18 Dose: 10 mg Potassium Chloride (K-Dur -) 10 meq PO DAILY [facility] Last Admin: 07/31/17 11:44 Dose: 10 meq Simethicone (Mylicon -) 80 mg PO Q4H PRN PRN Reason: GAS Last Admin: 07/31/17 00:51 Dose: 80 mg Warfarin Sodium 5 mg/ Warfarin (Sodium 1 mg) 6 mg PO DAILY@1800 [facility] Vital Signs - 24 hr 07/30/17 07/30/17 07/31/17 21:45 21:46 01:43 Temperature 98.7 F 98 F Pulse Rate 107 H Pulse Rate [ 106 H Right] Respiratory 20 20 Rate Blood Pressure 113/52 Blood Pressure 110/87 [Left Arm] O2 Sat by Pulse 94 L 94 L Oximetry (%) 07/31/17 07/31/17 07/31/17 01:47 06:00 14:02 Temperature 98 F 98.0 F Pulse Rate 120 H 109 H Pulse Rate [ Right] Respiratory 20 20 Rate Blood Pressure 107/62 95/42 Blood Pressure [Left Arm] O2 Sat by Pulse 95 Oximetry (%) Intake & Output 07/29/17 07/30/17 07/31/17 08/01/17 07:59 07:59 07:59 07:59 Intake Total 250 Balance 250 Weight 320 lb nad, calm jvd flat, neck supple ctab, nl effort irregular rate and rhythm. nl s1, s2 no mrg + bs soft nt nd, obese ext wrapped in dressings. 1+ dependent edema to abdomen, with + edema of pannus no jaundice, diaphoresis aaox3 no carotid bruits + dp/pt CBC, BMP 07/31/17 06:00 07/31/17 06:00 Laboratory Tests 07/31/17 07/31/17 06:00 06:00 INR 2.65 H D Total Bilirubin 0.7 AST 15 D ALT 18 Alkaline Phosphatase 123 H Albumin 2.9 L ecg afib 116 bpm. possible anterior q's. non-specific t wave ab. overall, similar to priors. cxr: increased interstitial lung markings, chronic vs. mild perivascular congestion. by my review, similar to priors. Assessment/Plan HTN: -bp has been running on low end. Would decrease losartan to 25 mg/day to make room for uptitration of rate control meds if needed. chronic Afib: -cont coumadin per INR - if hr remains elevated tomorrow, would uptitrate diltiazem. HPL: -cont statin venous insuff/le edema: -chronic condition, stable per pt - ? of possibility of diastolic chf. was ordered lasix 40 mg IV daily here on admit, but patient refusing. Per dr. adams's last office note, low suspicion for diastolic chf. counseled pt on the importance of using weights to guide assessment of volume status, but patient declines. unable to assess i/o as patient is incontinent. albumin 2.9 so unclear if edema is 2/2 third spacing or volume overload. currently pt considering trial of iv lasix tonight. If so , can assess symptomatic response. However, ultimately will be challenging to assess/manage volume status - low suspicion for dvt since INR has been therapeutic. - repeat echo pending. cellulitis - mgm't per ID, vascular pmd. obesity hypoventilation - cpap
[2017-07-31] MEDS: LINEZOLID 600 MG PREMIX BAG 300 ML IVPB SCH (16:21)
[2017-07-31] MEDS: FUROSEMIDE 40 MG/4 ML INJECTABLE VIAL IVPUSH SCH (16:22)
[2017-07-31] MEDS ORDERED: WARFARIN NA 5 MG TABLET (UD) ONE (18:00)
[2017-07-31] MEDS ORDERED: WARFARIN NA 5 MG TABLET (UD) PO SCH (18:00)
[2017-07-31] MEDS ORDERED: WARFARIN NA 1 MG TABLET (FP) ONE (18:01)
[2017-07-31] MEDS: WARFARIN NA 5 MG, WARFARIN NA 1 MG PO SCH (18:08)
[2017-08-01] MEDS: dilTIAZem HCL 30 MG TABLET (FP) PO SCH ×2 (06:33→15:43)
[2017-08-01] MEDS: LINEZOLID 600 MG PREMIX BAG 300 ML IVPB SCH ×2 (06:35→18:19)
[2017-08-01 07:28] LABS: BASOPHIL 0.3 % (0-2.0); EOSINOPHIL 1.7 % (0-4.5); MCH 27.8 pg (25.7-33.7); MEAN PLT VOLUME 7.2 fl (7.5-11.1); NEUTROPHILS 70.3 % (42.8-82.8); PLATELET COUNT 282 K/MM3 (134-434); RDW 14.7 % (11.6-15.6); WHITE BLOOD COUNT 6.5 K/mm3 (4.0-10.0)
[2017-08-01 07:50] LABS: ANION GAP 7 (8-16); CALCIUM 8.9 mg/dL (8.5-10.1); CO2 33 mmol/L (21-32); CREATININE 0.6 mg/dL (0.55-1.02); GLUCOSE,RANDOM 106 mg/dL (74-106); MAGNESIUM 2.2 mg/dL (1.8-2.4); PHOSPHOROUS 3.5 mg/dL (2.5-4.9)
[2017-08-01 11:21] LABS: INR 2.3 (0.82-1.09); PROTHROMBIN TIME (PATIENT) 25.7 SEC (9.98-11.88)
[2017-08-01] MEDS: ASCORBIC ACID 500 MG TABLET (FP) PO SCH (11:46)
[2017-08-01] MEDS: MULTIVITAMINS THER W-MINERALS COMBO TABLET (FP) PO SCH (11:47)
[2017-08-01] MEDS: METOPROLOL SUCCINATE 50 MG TAB.SR.24H (FP) PO SCH ×2 (11:47→21:28)
[2017-08-01] MEDS: CYANOCOBALAMIN 1,000 MCG TABLET (FP) PO SCH (11:47)
[2017-08-01] MEDS: guaiFENesin 600 MG TABLET.ER (FP) PO SCH (11:47)
[2017-08-01] MEDS: POTASSIUM CHLORIDE TABS 10 MEQ TABLET.ER (FP) PO SCH (11:48)
[2017-08-01] MEDS: FUROSEMIDE 40 MG/4 ML INJECTABLE VIAL IVPUSH SCH (11:48)
[2017-08-01] MEDS: CHOLECALCIFEROL (VITAMIN D3) 1,000 UNIT TABLET (FP) PO SCH ×2 (11:48→21:28)
[2017-08-01] MEDS: LOSARTAN POTASSIUM 50 MG TABLET (FP) PO SCH ×2 (11:48→11:58)
--- NOTE | 2017-08-01 14:30 | PN ---
Progress Note, Physician History of Present Illness: Seated in bed No c/o leg pain Afebrile WBC WNL Tolerated zyvox without adverse reaction - Current Medication List Current Medications: Active Medications Ascorbic Acid (Vitamin C -) 1,000 mg PO DAILY [facility] Last Admin: 08/01/17 11:46 Dose: 1,000 mg Atorvastatin Calcium (Lipitor -) 10 mg PO HS [facility] Last Admin: 07/31/17 22:07 Dose: 10 mg Cholecalciferol (Vitamin D3 -) 1,000 unit PO BID [facility] Last Admin: 08/01/17 11:48 Dose: 1,000 unit Cyanocobalamin (Vitamin B12 -) 1,000 mcg PO DAILY [facility] Last Admin: 08/01/17 11:47 Dose: 1,000 mcg Diltiazem HCl (Cardizem -) 30 mg PO TID [facility] Last Admin: 08/01/17 06:33 Dose: 30 mg Docusate Sodium (Colace -) 100 mg PO DAILY PRN PRN Reason: CONSTIPATION Furosemide (Lasix Injection -) 40 mg IVPUSH DAILY [facility] Last Admin: 08/01/17 11:48 Dose: 40 mg Guaifenesin (Mucinex -) 600 mg PO DAILY [facility] Last Admin: 08/01/17 11:47 Dose: 600 mg Linezolid (Zyvox 600 Mg Premix Bag (Restricted To Id) -) 300 mls @ 300 mls/hr IVPB Q12H [facility] PRN Reason: Protocol Last Admin: 08/01/17 06:35 Dose: 300 mls/hr Losartan Potassium (Cozaar -) 25 mg PO DAILY [facility] Metoprolol Succinate (Toprol Xl -) 50 mg PO BID [facility] Last Admin: 08/01/17 11:47 Dose: 50 mg Morphine Sulfate (Morphine Injection -) 1 mg IVPUSH Q4H PRN PRN Reason: PAIN LEVEL 6-10 Last Admin: 07/31/17 00:52 Dose: 1 mg Multivitamins/Minerals (Theragran-M) 1 each PO DAILY [facility] Last Admin: 08/01/17 11:47 Dose: 1 each Non-Formulary Medication (Fish Oil/Borage/Flax/Om3,6,9#1 [[place] 3-6-9 1,200 Mg Softgel]) 1 cap PO DAILY [facility] Oxycodone HCl (Roxicodone -) 10 mg PO Q4H PRN PRN Reason: PAIN Last Admin: 07/30/17 21:18 Dose: 10 mg Potassium Chloride (K-Dur -) 10 meq PO DAILY [facility] Last Admin: 08/01/17 11:48 Dose: 10 meq Simethicone (Mylicon -) 80 mg PO Q4H PRN PRN Reason: GAS Last Admin: 07/31/17 00:51 Dose: 80 mg Warfarin Sodium 5 mg/ Warfarin (Sodium 1 mg) 6 mg PO DAILY@1800 [facility] Last Admin: 07/31/17 18:08 Dose: 6 mg - Objective Vital Signs: Vital Signs Temperature 98 F 08/01/17 11:58 Pulse Rate 102 H 08/01/17 11:58 Respiratory Rate 20 08/01/17 06:00 Blood Pressure 107/76 08/01/17 11:58 O2 Sat by Pulse Oximetry (%) 95 08/01/17 10:23 Constitutional: Yes: No Distress, Obese Cardiovascular: Yes: Regular Rate and Rhythm, S1, S2 Respiratory: Yes: CTA Bilaterally Gastrointestinal: Yes: Normal Bowel Sounds, Soft. No: Tenderness Extremities: Yes: Other (+ bilateral LE stasis dermatitis + LE erythema R>L) Labs: CBC, BMP 08/01/17 06:00 08/01/17 06:00 INR, PTT INR 2.30 (0.82-1.09) H 08/01/17 06:00 Assessment/Plan Cellulitis Chronic venous stasis dermatitis Antibiotic allergies Morbid obesity Continue zyvox, local wound care
[2017-08-01] MEDS ORDERED: dilTIAZem HCL 30 MG TABLET (FP) PO ONE (15:10)
--- NOTE | 2017-08-01 15:10 | PN ---
Progress Note, Physician Chief Complaint: Ms Torres complains that her left leg is become more red and swollen. No cp or sob. - Current Medication List Current Medications: Active Medications Ascorbic Acid (Vitamin C -) 1,000 mg PO DAILY [facility] Last Admin: 08/01/17 11:46 Dose: 1,000 mg Atorvastatin Calcium (Lipitor -) 10 mg PO HS [facility] Last Admin: 07/31/17 22:07 Dose: 10 mg Cholecalciferol (Vitamin D3 -) 1,000 unit PO BID [facility] Last Admin: 08/01/17 11:48 Dose: 1,000 unit Cyanocobalamin (Vitamin B12 -) 1,000 mcg PO DAILY [facility] Last Admin: 08/01/17 11:47 Dose: 1,000 mcg Diltiazem HCl (Cardizem -) 30 mg PO TID [facility] Last Admin: 08/01/17 06:33 Dose: 30 mg Docusate Sodium (Colace -) 100 mg PO DAILY PRN PRN Reason: CONSTIPATION Furosemide (Lasix Injection -) 40 mg IVPUSH DAILY [facility] Last Admin: 08/01/17 11:48 Dose: 40 mg Guaifenesin (Mucinex -) 600 mg PO DAILY [facility] Last Admin: 08/01/17 11:47 Dose: 600 mg Linezolid (Zyvox 600 Mg Premix Bag (Restricted To Id) -) 300 mls @ 300 mls/hr IVPB Q12H [facility] PRN Reason: Protocol Last Admin: 08/01/17 06:35 Dose: 300 mls/hr Losartan Potassium (Cozaar -) 25 mg PO DAILY [facility] Metoprolol Succinate (Toprol Xl -) 50 mg PO BID [facility] Last Admin: 08/01/17 11:47 Dose: 50 mg Morphine Sulfate (Morphine Injection -) 1 mg IVPUSH Q4H PRN PRN Reason: PAIN LEVEL 6-10 Last Admin: 07/31/17 00:52 Dose: 1 mg Multivitamins/Minerals (Theragran-M) 1 each PO DAILY [facility] Last Admin: 08/01/17 11:47 Dose: 1 each Oxycodone HCl (Roxicodone -) 10 mg PO Q4H PRN PRN Reason: PAIN Last Admin: 07/30/17 21:18 Dose: 10 mg Potassium Chloride (K-Dur -) 10 meq PO DAILY [facility] Last Admin: 08/01/17 11:48 Dose: 10 meq Simethicone (Mylicon -) 80 mg PO Q4H PRN PRN Reason: GAS Last Admin: 07/31/17 00:51 Dose: 80 mg Warfarin Sodium 5 mg/ Warfarin (Sodium 1 mg) 6 mg PO DAILY@1800 [facility] Last Admin: 07/31/17 18:08 Dose: 6 mg - Objective Vital Signs: Vital Signs Temperature 36.7 C 08/01/17 14:26 Pulse Rate 112 H 08/01/17 14:26 Respiratory Rate 20 08/01/17 14:26 Blood Pressure 118/57 08/01/17 14:26 O2 Sat by Pulse Oximetry (%) 95 08/01/17 10:23 Constitutional: Yes: No Distress, Calm, Obese Cardiovascular: Yes: Pulse Irregular. No: Tachycardia, Gallop, Murmur, Rub Respiratory: Yes: Regular, CTA Bilaterally. No: Rales, Rhonchi, Wheezes Gastrointestinal: Yes: Normal Bowel Sounds, Soft. No: Distention, Tenderness Extremities: Yes: Erythema Edema: Yes Edema: LLE: 2+, RLE: 2+ Labs: CBC, BMP 08/01/17 06:00 08/01/17 06:00 INR, PTT INR 2.30 (0.82-1.09) H 08/01/17 06:00 Problem List - Problems (1) Cellulitis Code(s): L03.90 - CELLULITIS, UNSPECIFIED Qualifiers: Site of cellulitis: extremity Site of cellulitis of extremity: lower extremity Laterality: right Qualified Code(s): L03.115 - Cellulitis of right lower limb (2) Atrial fibrillation with RVR Code(s): I48.91 - UNSPECIFIED ATRIAL FIBRILLATION (3) HTN (hypertension) Code(s): I10 - ESSENTIAL (PRIMARY) HYPERTENSION (4) Lymphedema of both lower extremities Code(s): I89.0 - LYMPHEDEMA, NOT ELSEWHERE CLASSIFIED Assessment/Plan (1) Cellulitis Assessment/Plan: -appreciate ID assistance -continue zyvox -continue wound care Code(s): L03.90 - CELLULITIS, UNSPECIFIED Qualifiers: Site of cellulitis: extremity Site of cellulitis of extremity: lower extremity Laterality: right Qualified Code(s): L03.115 - Cellulitis of right lower limb (2) Lymphedema Assessment/Plan: -no CHF on ECHO -patient with lymphedema -continue lasix Code(s): I50.9 - HEART FAILURE, UNSPECIFIED Qualifiers: Congestive heart failure type: unspecified congestive heart failure type Congestive heart failure chronicity: unspecified congestive heart failure chronicity Qualified Code(s): I50.9 - Heart failure, unspecified (3) Atrial fibrillation with RVR Assessment/Plan: -appreciate cardiology assistance -cardizem increased -continue metoprolol and coumadin Code(s): I48.91 - UNSPECIFIED ATRIAL FIBRILLATION (4) HTN (hypertension) Assessment/Plan: -losartan decreased Code(s): I10 - ESSENTIAL (PRIMARY) HYPERTENSION
--- NOTE | 2017-08-01 15:10 | PN ---
Progress Note (short form) - Note Progress Note: CC: afib, chf? S: has been agreeing to take IV lasix, took dose last night and this morning. Unsure yet if she has noticed a difference in her turner or orthopnea. no cp, palps, dizziness. + pain discomfort at LE persists. New weeping of LLE. Current Medications Ascorbic Acid (Vitamin C -) 1,000 mg PO DAILY [facility] Last Admin: 08/01/17 11:46 Dose: 1,000 mg Atorvastatin Calcium (Lipitor -) 10 mg PO HS [facility] Last Admin: 07/31/17 22:07 Dose: 10 mg Cholecalciferol (Vitamin D3 -) 1,000 unit PO BID [facility] Last Admin: 08/01/17 11:48 Dose: 1,000 unit Cyanocobalamin (Vitamin B12 -) 1,000 mcg PO DAILY [facility] Last Admin: 08/01/17 11:47 Dose: 1,000 mcg Diltiazem HCl (Cardizem -) 30 mg PO TID [facility] Last Admin: 08/01/17 06:33 Dose: 30 mg Docusate Sodium (Colace -) 100 mg PO DAILY PRN PRN Reason: CONSTIPATION Furosemide (Lasix Injection -) 40 mg IVPUSH DAILY [facility] Last Admin: 08/01/17 11:48 Dose: 40 mg Guaifenesin (Mucinex -) 600 mg PO DAILY [facility] Last Admin: 08/01/17 11:47 Dose: 600 mg Linezolid (Zyvox 600 Mg Premix Bag (Restricted To Id) -) 300 mls @ 300 mls/hr IVPB Q12H [facility] PRN Reason: Protocol Last Admin: 08/01/17 06:35 Dose: 300 mls/hr Losartan Potassium (Cozaar -) 25 mg PO DAILY [facility] Metoprolol Succinate (Toprol Xl -) 50 mg PO BID [facility] Last Admin: 08/01/17 11:47 Dose: 50 mg Morphine Sulfate (Morphine Injection -) 1 mg IVPUSH Q4H PRN PRN Reason: PAIN LEVEL 6-10 Last Admin: 07/31/17 00:52 Dose: 1 mg Multivitamins/Minerals (Theragran-M) 1 each PO DAILY [facility] Last Admin: 08/01/17 11:47 Dose: 1 each Oxycodone HCl (Roxicodone -) 10 mg PO Q4H PRN PRN Reason: PAIN Last Admin: 07/30/17 21:18 Dose: 10 mg Potassium Chloride (K-Dur -) 10 meq PO DAILY [facility] Last Admin: 08/01/17 11:48 Dose: 10 meq Simethicone (Mylicon -) 80 mg PO Q4H PRN PRN Reason: GAS Last Admin: 07/31/17 00:51 Dose: 80 mg Warfarin Sodium 5 mg/ Warfarin (Sodium 1 mg) 6 mg PO DAILY@1800 [facility] Last Admin: 07/31/17 18:08 Dose: 6 mg Vital Signs - 24 hr 07/31/17 07/31/17 08/01/17 20:28 21:00 06:00 Temperature 98.2 F Pulse Rate 106 H 114 H Respiratory 18 18 20 Rate Blood Pressure 108/57 106/76 O2 Sat by Pulse 93 L Oximetry (%) 08/01/17 08/01/17 08/01/17 10:23 11:58 14:26 Temperature 98 F 98.0 F Pulse Rate 102 H 112 H Respiratory 20 Rate Blood Pressure 107/76 118/57 O2 Sat by Pulse 95 Oximetry (%) Intake & Output 07/30/17 07/31/17 08/01/17 08/02/17 07:59 07:59 07:59 07:59 Intake Total 250 550 300 Balance 250 550 300 Weight 320 lb nad, calm jvd flat, neck supple ctab, nl effort irregular rate and rhythm. nl s1, s2 no mrg + bs soft nt nd, obese ext wrapped in dressings. 1+ dependent edema to abdomen, with + edema of pannus no jaundice, diaphoresis aaox3 no carotid bruits + dp/pt CBC, BMP 08/01/17 06:00 08/01/17 06:00 ecg afib 116 bpm. possible anterior q's. non-specific t wave ab. overall, similar to priors. cxr: increased interstitial lung markings, chronic vs. mild perivascular congestion. by my review, similar to priors. echo 07/2017: tds. nl lv/rv size/fn. tds for rwma. no comment on diastolic function but e/a ratio 4:1. 1+ david. 1+ mr, rvsp nl Assessment/Plan 72 yo with h/o afib on coumadin, htn, hl, morbid obesity, copd, obesity hypoventilation syndrome, severe djd/oa/spinal stenosis, sjogren's, RA, gerd who p/w worsening of her chronic LE cellulitis. HTN: - con't losartan 25 mg/day. uptitration of rate control meds. chronic Afib: -cont coumadin per INR -more bp room today 08/01 on lower losartan dose --> HR's remain slightly elevated, will uptitrate diltiazem to 60 mg tid. HPL: -cont statin venous insuff/le edema: -chronic condition, stable per pt - ? of possibility of diastolic chf. was ordered lasix 40 mg IV daily here on admit, but patient initially refused. Per dr. adams's last office note, low suspicion for diastolic chf. counseled pt on the importance of using weights to guide assessment of volume status, but patient declines. unable to assess i/ o as patient is incontinent. albumin 2.9 so unclear if edema is 2/2 third spacing or volume overload. - 08/01 s/p 2 doses of IV lasix, pt unsure whether sx's have improved. would like to try another dose of iv lasix tomorrow and then will reassess again whether orthopnea/turner are better. - low suspicion for dvt since INR has been therapeutic. - repeat echo tds, but with nl systolic function. no specific comments regarding diastolic function but e/a 4:1, which could suggest diastolic dysfunction (? accuracy of measurements). cellulitis - mgm't per ID, vascular pmd. obesity hypoventilation - cpap
[2017-08-01] MEDS: oxyCODONE HCL 5 MG TABLET PO PRN ×2 (17:02→21:28)
[2017-08-01] MEDS ORDERED: WARFARIN NA 1 MG TABLET (FP) ONE (18:06)
[2017-08-01] MEDS ORDERED: WARFARIN NA 5 MG TABLET (UD) ONE (18:06)
[2017-08-01] MEDS ORDERED: PT OWN MED DRAWER 7, Y5N ONE (18:07)
[2017-08-01] MEDS: WARFARIN NA 5 MG, WARFARIN NA 1 MG PO SCH (18:19)
[2017-08-01] MEDS: ATORVASTATIN CA 10 MG TABLET (FP) PO SCH (21:28)
[2017-08-01] MEDS: dilTIAZem HCL 60 MG TABLET (FP) PO SCH (21:28)
[2017-08-01 23:21] LABS: URINE APPEARANCE SLCLOUDY; URINE BILIRUBIN NEGATIVE (NEGATIVE); URINE BLOOD NEGATIVE (NEGATIVE); URINE COLOR YELLOW; URINE GLUCOSE (UA) NEGATIVE (NEGATIVE); URINE KETONE NEGATIVE (NEGATIVE); URINE LEUK ESTERASE NEGATIVE (NEGATIVE); URINE NITRITE NEGATIVE (NEGATIVE); URINE PROTEIN NEGATIVE (NEGATIVE); URINE UROBILINOGEN NEGATIVE mg/dL (0.2-1.0)
[2017-08-02] MEDS: LINEZOLID 600 MG PREMIX BAG 300 ML IVPB SCH ×2 (06:17→18:43)
[2017-08-02] MEDS: dilTIAZem HCL 60 MG TABLET (FP) PO SCH ×3 (06:18→22:22)
[2017-08-02 08:20] LABS: INR 2.8 (0.82-1.09); PROTHROMBIN TIME (PATIENT) 31.4 SEC (9.98-11.88)
[2017-08-02 08:42] LABS: BASOPHIL 0.5 % (0-2.0); EOSINOPHIL 2.8 % (0-4.5); MCH 27.9 pg (25.7-33.7); MCHC 29.1 g/dl (32.0-36.0); MEAN CELL VOLUME 95.8 fl (80-96); NEUTROPHILS 68.7 % (42.8-82.8); PLATELET COUNT 254 K/MM3 (134-434); RDW 15.8 % (11.6-15.6); WHITE BLOOD COUNT 5.1 K/mm3 (4.0-10.0)
[2017-08-02] MEDS: LOSARTAN POTASSIUM 25 MG TABLET PO SCH (09:04)
[2017-08-02] MEDS: METOPROLOL SUCCINATE 50 MG TAB.SR.24H (FP) PO SCH ×2 (09:04→22:21)
[2017-08-02] MEDS: ASCORBIC ACID 500 MG TABLET (FP) PO SCH (09:11)
[2017-08-02] MEDS: MULTIVITAMINS THER W-MINERALS COMBO TABLET (FP) PO SCH (09:11)
[2017-08-02] MEDS: oxyCODONE HCL 5 MG TABLET PO PRN ×3 (09:11→22:24)
[2017-08-02] MEDS: guaiFENesin 600 MG TABLET.ER (FP) PO SCH (09:11)
[2017-08-02] MEDS: CYANOCOBALAMIN 1,000 MCG TABLET (FP) PO SCH (09:11)
[2017-08-02] MEDS: POTASSIUM CHLORIDE TABS 10 MEQ TABLET.ER (FP) PO SCH (09:11)
[2017-08-02] MEDS: CHOLECALCIFEROL (VITAMIN D3) 1,000 UNIT TABLET (FP) PO SCH ×2 (09:11→22:22)
[2017-08-02] MEDS: FUROSEMIDE 40 MG/4 ML INJECTABLE VIAL IVPUSH SCH (09:13)
[2017-08-02 10:33] LABS: BASOPHIL 0.7 % (0-2.0); EOSINOPHIL 1.9 % (0-4.5); MCH 28.1 pg (25.7-33.7); MCHC 32.4 g/dl (32.0-36.0); NEUTROPHILS 73.2 % (42.8-82.8); PLATELET COUNT 310 K/MM3 (134-434); RDW 14.8 % (11.6-15.6); WHITE BLOOD COUNT 7.8 K/mm3 (4.0-10.0)
[2017-08-02 10:56] LABS: HYPOCHROMIA FEW
[2017-08-02 11:19] LABS: ANION GAP 8 (8-16); CALCIUM 8.5 mg/dL (8.5-10.1); CO2 30 mmol/L (21-32); CREATININE 0.7 mg/dL (0.55-1.02); GLUCOSE,RANDOM 105 mg/dL (74-106); PHOSPHOROUS 3.5 mg/dL (2.5-4.9)
--- NOTE | 2017-08-02 11:25 | PN ---
Progress Note (short form) - Note Progress Note: s: no cp sob palps dizzy; le edema a little better today Current Medications Generic Name Dose Route Start Last Admin Trade Name Rupert PRN Reason Stop Dose Admin Ascorbic Acid 1,000 mg 07/31/17 10:00 08/02/17 09:11 Vitamin C - PO 1,000 mg DAILY [facility] Administration Atorvastatin Calcium 10 mg 07/30/17 22:00 08/01/17 21:28 Lipitor - PO 10 mg HS [facility] Administration Cholecalciferol 1,000 unit 07/30/17 22:00 08/02/17 09:11 Vitamin D3 - PO 1,000 unit BID [facility] Administration Cyanocobalamin 1,000 mcg 07/31/17 10:00 08/02/17 09:11 Vitamin B12 - PO 1,000 mcg DAILY [facility] Administration Diltiazem HCl 60 mg 08/01/17 22:00 08/02/17 06:18 Cardizem - PO 60 mg TID [facility] Administration Docusate Sodium 100 mg 07/30/17 19:25 Colace - PO DAILY PRN CONSTIPATION Furosemide 40 mg 07/30/17 19:30 08/02/17 09:13 Lasix Injection - IVPUSH Not Given DAILY [facility] Guaifenesin 600 mg 07/31/17 10:00 08/02/17 09:11 Mucinex - PO 600 mg DAILY [facility] Administration Linezolid 300 mls @ 300 mls/hr 07/31/17 17:00 08/02/17 06:17 Zyvox 600 Mg Premix Bag (Restricted To Id) - IVPB 300 mls/hr Q12H [facility] Administration Protocol Losartan Potassium 25 mg 08/02/17 10:00 08/02/17 09:04 Cozaar - PO Not Given DAILY [facility] Metoprolol Succinate 50 mg 07/30/17 22:00 08/02/17 09:04 Toprol Xl - PO Not Given BID [facility] Morphine Sulfate 1 mg 07/30/17 23:44 07/31/17 00:52 Morphine Injection - IVPUSH 1 mg Q4H PRN Administration PAIN LEVEL 6-10 Multivitamins/Minerals 1 each 07/31/17 10:00 08/02/17 09:11 Theragran-M PO 1 each DAILY [facility] Administration Oxycodone HCl 10 mg 07/30/17 20:08 08/02/17 09:11 Roxicodone - PO 10 mg Q4H PRN Administration PAIN Potassium Chloride 10 meq 07/31/17 10:00 08/02/17 09:11 K-Dur - PO 10 meq DAILY [facility] Administration Simethicone 80 mg 07/30/17 23:43 07/31/17 00:51 Mylicon - PO 80 mg Q4H PRN Administration GAS Warfarin Sodium 5 mg/ Warfarin 6 mg 07/31/17 18:00 08/01/17 18:19 Sodium 1 mg PO 6 mg DAILY@1800 [facility] Administration Vital Signs Period Temp Pulse Resp BP Sys/William Pulse Ox Last 24 Hr 98 F-98.8 F 102-117 18-20 101-124/55-76 92-95 nad, calm jvd flat, neck supple ctab, nl effort irregular rate and rhythm. nl s1, s2 no mrg + bs soft nt nd, obese ext wrapped in dressings. 1+ dependent edema to abdomen, with + edema of pannus no jaundice, diaphoresis aaox3 Laboratory Last Values WBC 7.8 K/mm3 (4.0-10.0) D 08/02/17 09:45 RBC 4.99 M/mm3 (3.60-5.2) 08/02/17 09:45 Hgb 14.1 GM/dL (10.7-15.3) D 08/02/17 09:45 Hct 43.4 % (32.4-45.2) 08/02/17 09:45 MCV 87.0 fl (80-96) 08/02/17 09:45 MCH 28.1 pg (25.7-33.7) 08/02/17 09:45 MCHC 32.4 g/dl (32.0-36.0) 08/02/17 09:45 RDW 14.8 % (11.6-15.6) 08/02/17 09:45 Plt Count 310 K/MM3 (134-434) D 08/02/17 09:45 MPV 7.0 fl (7.5-11.1) L D 08/02/17 09:45 Neutrophils % 73.2 % (42.8-82.8) 08/02/17 09:45 Lymphocytes % 14.8 % (8-40) 08/02/17 09:45 Monocytes % 9.4 % (3.8-10.2) 08/02/17 09:45 Eosinophils % 1.9 % (0-4.5) 08/02/17 09:45 Basophils % 0.7 % (0-2.0) 08/02/17 09:45 Hypochromia Few 08/02/17 07:24 INR 2.80 (0.82-1.09) H 08/02/17 07:24 Sodium 142 mmol/L (136-145) 08/01/17 06:00 Potassium 4.4 mmol/L (3.5-5.1) 08/01/17 06:00 Chloride 102 mmol/L (98-107) 08/01/17 06:00 Carbon Dioxide 33 mmol/L (21-32) H 08/01/17 06:00 Anion Gap 7 (8-16) L 08/01/17 06:00 BUN 16 mg/dL (7-18) 08/01/17 06:00 Creatinine 0.6 mg/dL (0.55-1.02) 08/01/17 06:00 Creat Clearance w eGFR > 60 (>60) 07/31/17 06:00 POC Glucometer 146 UNITS (()) 08/02/17 09:35 Random Glucose 106 mg/dL (74-106) 08/01/17 06:00 Calcium 8.9 mg/dL (8.5-10.1) 08/01/17 06:00 Phosphorus 3.5 mg/dL (2.5-4.9) 08/01/17 06:00 Magnesium 2.2 mg/dL (1.8-2.4) 08/01/17 06:00 Total Bilirubin 0.7 mg/dL (0.2-1.0) 07/31/17 06:00 AST 15 U/L (15-37) D 07/31/17 06:00 ALT 18 U/L (12-78) 07/31/17 06:00 Alkaline Phosphatase 123 U/L (45-117) H 07/31/17 06:00 Total Protein 6.0 g/dl (6.4-8.2) L 07/31/17 06:00 Albumin 2.9 g/dl (3.4-5.0) L 07/31/17 06:00 Urine Color Yellow 08/01/17 22:36 Urine Appearance Slcloudy 08/01/17 22:36 Urine pH 5.0 (5.0-8.0) 08/01/17 22:36 Ur Specific [place] 1.025 (1.005-1.025) 08/01/17 22:36 Urine Protein Negative (NEGATIVE) 08/01/17 22:36 Urine Glucose (UA) Negative (NEGATIVE) 08/01/17 22:36 Urine Ketones Negative (NEGATIVE) 08/01/17 22:36 Urine Blood Negative (NEGATIVE) 08/01/17 22:36 Urine Nitrite Negative (NEGATIVE) 08/01/17 22:36 Urine Bilirubin Negative (NEGATIVE) 08/01/17 22:36 Urine Urobilinogen Negative mg/dL (0.2-1.0) 08/01/17 22:36 Ur Leukocyte Esterase Negative (NEGATIVE) 08/01/17 22:36 ecg afib 116 bpm. possible anterior q's. non-specific t wave ab. overall, similar to priors. cxr: increased interstitial lung markings, chronic vs. mild perivascular congestion. by my review, similar to priors. echo 07/2017: tds. nl lv/rv size/fn. tds for rwma. no comment on diastolic function but e/a ratio 4:1. 1+ david. 1+ mr, rvsp nl Assessment/Plan 72 yo with h/o afib on coumadin, htn, hl, morbid obesity, copd, obesity hypoventilation syndrome, severe djd/oa/spinal stenosis, sjogren's, RA, gerd who p/w worsening of her chronic LE cellulitis. HTN: - controlled on current meds chronic Afib: -cont coumadin per INR -cont dilt HPL: -cont statin venous insuff/le edema: -chronic condition, stable per pt - ? of possibility of diastolic chf. was ordered lasix 40 mg IV daily here on admit, but patient initially refused. Per dr. adams's last office note, low suspicion for diastolic chf. counseled pt on the importance of using weights to guide assessment of volume status, but patient declines. unable to assess i/ o as patient is incontinent. albumin 2.9 so unclear if edema is 2/2 third spacing or volume overload. - with iv lasix here pt reports some improvement in le edema, cont same - low suspicion for dvt since INR has been therapeutic. - repeat echo tds, but with nl systolic function. cellulitis - mgm't per ID, vascular, pmd. obesity hypoventilation - cpap
--- NOTE | 2017-08-02 12:38 | PN ---
Progress Note, Physician Chief Complaint: Ms Torres says her left leg is slightly better today but still weeping. No cp , sob, n/v - Current Medication List Current Medications: Active Medications Ascorbic Acid (Vitamin C -) 1,000 mg PO DAILY [facility] Last Admin: 08/02/17 09:11 Dose: 1,000 mg Atorvastatin Calcium (Lipitor -) 10 mg PO HS [facility] Last Admin: 08/01/17 21:28 Dose: 10 mg Cholecalciferol (Vitamin D3 -) 1,000 unit PO BID [facility] Last Admin: 08/02/17 09:11 Dose: 1,000 unit Cyanocobalamin (Vitamin B12 -) 1,000 mcg PO DAILY [facility] Last Admin: 08/02/17 09:11 Dose: 1,000 mcg Diltiazem HCl (Cardizem -) 60 mg PO TID [facility] Last Admin: 08/02/17 06:18 Dose: 60 mg Docusate Sodium (Colace -) 100 mg PO DAILY PRN PRN Reason: CONSTIPATION Furosemide (Lasix Injection -) 40 mg IVPUSH DAILY [facility] Last Admin: 08/02/17 09:13 Dose: Not Given Guaifenesin (Mucinex -) 600 mg PO DAILY [facility] Last Admin: 08/02/17 09:11 Dose: 600 mg Linezolid (Zyvox 600 Mg Premix Bag (Restricted To Id) -) 300 mls @ 300 mls/hr IVPB Q12H [facility] PRN Reason: Protocol Last Admin: 08/02/17 06:17 Dose: 300 mls/hr Losartan Potassium (Cozaar -) 25 mg PO DAILY [facility] Last Admin: 08/02/17 09:04 Dose: Not Given Metoprolol Succinate (Toprol Xl -) 50 mg PO BID [facility] Last Admin: 08/02/17 09:04 Dose: Not Given Morphine Sulfate (Morphine Injection -) 1 mg IVPUSH Q4H PRN PRN Reason: PAIN LEVEL 6-10 Last Admin: 07/31/17 00:52 Dose: 1 mg Multivitamins/Minerals (Theragran-M) 1 each PO DAILY [facility] Last Admin: 08/02/17 09:11 Dose: 1 each Oxycodone HCl (Roxicodone -) 10 mg PO Q4H PRN PRN Reason: PAIN Last Admin: 08/02/17 09:11 Dose: 10 mg Potassium Chloride (K-Dur -) 10 meq PO DAILY [facility] Last Admin: 08/02/17 09:11 Dose: 10 meq Simethicone (Mylicon -) 80 mg PO Q4H PRN PRN Reason: GAS Last Admin: 07/31/17 00:51 Dose: 80 mg Warfarin Sodium 5 mg/ Warfarin (Sodium 1 mg) 6 mg PO DAILY@1800 [facility] Last Admin: 08/01/17 18:19 Dose: 6 mg - Objective Vital Signs: Vital Signs Temperature 36.7 C 08/02/17 04:00 Pulse Rate 113 H 08/02/17 04:00 Respiratory Rate 20 08/02/17 04:00 Blood Pressure 118/73 08/02/17 04:00 O2 Sat by Pulse Oximetry (%) 92 L 08/02/17 10:29 Constitutional: Yes: No Distress, Calm, Obese Cardiovascular: Yes: Regular Rate and Rhythm. No: Gallop, Murmur, Rub Respiratory: Yes: Regular, CTA Bilaterally. No: Rales, Rhonchi, Wheezes Gastrointestinal: Yes: Normal Bowel Sounds, Soft. No: Distention, Tenderness Extremities: Yes: Erythema, Other (R foot wrapped) Edema: Yes Edema: LLE: 2+, RLE: 2+ Labs: CBC, BMP 08/02/17 09:45 08/02/17 10:15 INR, PTT INR 2.80 (0.82-1.09) H 08/02/17 07:24 Problem List - Problems (1) Cellulitis Code(s): L03.90 - CELLULITIS, UNSPECIFIED Qualifiers: Site of cellulitis: extremity Site of cellulitis of extremity: lower extremity Laterality: right Qualified Code(s): L03.115 - Cellulitis of right lower limb (2) Atrial fibrillation with RVR Code(s): I48.91 - UNSPECIFIED ATRIAL FIBRILLATION (3) HTN (hypertension) Code(s): I10 - ESSENTIAL (PRIMARY) HYPERTENSION (4) Lymphedema of both lower extremities Code(s): I89.0 - LYMPHEDEMA, NOT ELSEWHERE CLASSIFIED Assessment/Plan (1) Cellulitis Assessment/Plan: -appreciate ID assistance -continue zyvox -continue wound care Code(s): L03.90 - CELLULITIS, UNSPECIFIED Qualifiers: Site of cellulitis: extremity Site of cellulitis of extremity: lower extremity Laterality: right Qualified Code(s): L03.115 - Cellulitis of right lower limb (2) Lymphedema Assessment/Plan: -no CHF on ECHO -patient with lymphedema -continue lasix Code(s): I50.9 - HEART FAILURE, UNSPECIFIED Qualifiers: Congestive heart failure type: unspecified congestive heart failure type Congestive heart failure chronicity: unspecified congestive heart failure chronicity Qualified Code(s): I50.9 - Heart failure, unspecified (3) Atrial fibrillation with RVR Assessment/Plan: -appreciate cardiology assistance -cardizem increased -continue metoprolol and coumadin Code(s): I48.91 - UNSPECIFIED ATRIAL FIBRILLATION (4) HTN (hypertension) Assessment/Plan: -losartan decreased -well controlled Code(s): I10 - ESSENTIAL (PRIMARY) HYPERTENSION
--- NOTE | 2017-08-02 13:48 | PN ---
Progress Note, Physician History of Present Illness: C/O serous weepage from R LE No fever/ chills Tolerating linezolid without adverse reaction - Current Medication List Current Medications: Active Medications Ascorbic Acid (Vitamin C -) 1,000 mg PO DAILY [facility] Last Admin: 08/02/17 09:11 Dose: 1,000 mg Atorvastatin Calcium (Lipitor -) 10 mg PO HS [facility] Last Admin: 08/01/17 21:28 Dose: 10 mg Cholecalciferol (Vitamin D3 -) 1,000 unit PO BID [facility] Last Admin: 08/02/17 09:11 Dose: 1,000 unit Cyanocobalamin (Vitamin B12 -) 1,000 mcg PO DAILY [facility] Last Admin: 08/02/17 09:11 Dose: 1,000 mcg Diltiazem HCl (Cardizem -) 60 mg PO TID [facility] Last Admin: 08/02/17 06:18 Dose: 60 mg Docusate Sodium (Colace -) 100 mg PO DAILY PRN PRN Reason: CONSTIPATION Furosemide (Lasix Injection -) 40 mg IVPUSH DAILY [facility] Last Admin: 08/02/17 09:13 Dose: Not Given Guaifenesin (Mucinex -) 600 mg PO DAILY [facility] Last Admin: 08/02/17 09:11 Dose: 600 mg Linezolid (Zyvox 600 Mg Premix Bag (Restricted To Id) -) 300 mls @ 300 mls/hr IVPB Q12H [facility] PRN Reason: Protocol Last Admin: 08/02/17 06:17 Dose: 300 mls/hr Losartan Potassium (Cozaar -) 25 mg PO DAILY [facility] Last Admin: 08/02/17 09:04 Dose: Not Given Metoprolol Succinate (Toprol Xl -) 50 mg PO BID [facility] Last Admin: 08/02/17 09:04 Dose: Not Given Morphine Sulfate (Morphine Injection -) 1 mg IVPUSH Q4H PRN PRN Reason: PAIN LEVEL 6-10 Last Admin: 07/31/17 00:52 Dose: 1 mg Multivitamins/Minerals (Theragran-M) 1 each PO DAILY [facility] Last Admin: 08/02/17 09:11 Dose: 1 each Oxycodone HCl (Roxicodone -) 10 mg PO Q4H PRN PRN Reason: PAIN Last Admin: 08/02/17 09:11 Dose: 10 mg Potassium Chloride (K-Dur -) 10 meq PO DAILY [facility] Last Admin: 08/02/17 09:11 Dose: 10 meq Simethicone (Mylicon -) 80 mg PO Q4H PRN PRN Reason: GAS Last Admin: 07/31/17 00:51 Dose: 80 mg Warfarin Sodium 5 mg/ Warfarin (Sodium 1 mg) 6 mg PO DAILY@1800 [facility] Last Admin: 08/01/17 18:19 Dose: 6 mg - Objective Vital Signs: Vital Signs Temperature 98.1 F 08/02/17 04:00 Pulse Rate 113 H 08/02/17 04:00 Respiratory Rate 20 08/02/17 04:00 Blood Pressure 118/73 08/02/17 04:00 O2 Sat by Pulse Oximetry (%) 92 L 08/02/17 10:29 Constitutional: Yes: No Distress, Obese Eyes: Yes: Conjunctiva Clear Cardiovascular: Yes: Regular Rate and Rhythm, S1, S2 Respiratory: Yes: CTA Bilaterally Gastrointestinal: Yes: Normal Bowel Sounds, Soft. No: Tenderness Extremities: Yes: Other (+ Chronic venous stasis dermatitis LE bilaterally + erythema R LE with superficial calf ulcer + serous weepage R LE) Labs: CBC, BMP 08/02/17 09:45 08/02/17 10:15 INR, PTT INR 2.80 (0.82-1.09) H 08/02/17 07:24 Assessment/Plan Cellulitis R LE improved Chronic venous stasis dermatitis Antibiotic allergies Morbid obesity Continue zyvox, local wound care
[2017-08-02] MEDS ORDERED: WARFARIN NA 5 MG TABLET (UD) ONE (18:35)
[2017-08-02] MEDS ORDERED: PT OWN MED DRAWER 7, Y5N ONE (18:36)
[2017-08-02] MEDS ORDERED: WARFARIN NA 1 MG TABLET (FP) ONE (18:36)
[2017-08-02] MEDS: WARFARIN NA 5 MG, WARFARIN NA 1 MG PO SCH (18:44)
[2017-08-02] MEDS: ATORVASTATIN CA 10 MG TABLET (FP) PO SCH (22:21)
[2017-08-03] MEDS: LINEZOLID 600 MG PREMIX BAG 300 ML IVPB SCH ×2 (05:35→17:49)
[2017-08-03] MEDS: dilTIAZem HCL 60 MG TABLET (FP) PO SCH ×3 (05:55→22:15)
[2017-08-03 07:55] LABS: INR 2.39 (0.82-1.09); PROTHROMBIN TIME (PATIENT) 26.8 SEC (9.98-11.88)
[2017-08-03 08:04] LABS: ANION GAP 9 (8-16); BASOPHIL 0.4 % (0-2.0); CALCIUM 7.7 mg/dL (8.5-10.1); CO2 31 mmol/L (21-32); EOSINOPHIL 2.1 % (0-4.5); GLUCOSE,RANDOM 97 mg/dL (74-106); MCH 28.1 pg (25.7-33.7); MCHC 32.6 g/dl (32.0-36.0); MEAN CELL VOLUME 86.3 fl (80-96); MEAN PLT VOLUME 7.4 fl (7.5-11.1); NEUTROPHILS 75.9 % (42.8-82.8); PLATELET COUNT 267 K/MM3 (134-434); RDW 14.7 % (11.6-15.6); WHITE BLOOD COUNT 7.9 K/mm3 (4.0-10.0)
[2017-08-03 08:05] LABS: CREATININE 0.6 mg/dL (0.55-1.02); PHOSPHOROUS 3.7 mg/dL (2.5-4.9)
--- NOTE | 2017-08-03 09:56 | PN ---
Progress Note (short form) - Note Progress Note: Patient seen and examined chart reviewed at length. Currently OOB to BR with rollator walker. Labs, medications radiologic procedures and progress notes reviewed. Alert, responsive, and appropriate. Denies new chest discomfort or increased dyspnea. Selected Entries 08/02/17 08/03/17 21:00 06:00 Temperature 98.7 F Pulse Rate 99 H Respiratory 20 Rate Blood Pressure 130/58 O2 Sat by Pulse 92 L Oximetry (%) Oxygen Delivery Room Air Method Laboratory Tests 07/31/17 08/03/17 08/03/17 06:00 06:00 06:00 WBC 7.9 Hgb 12.9 Hct 39.5 Plt Count 267 INR 2.39 H Sodium Potassium Chloride Carbon Dioxide BUN Creatinine Random Glucose Calcium Phosphorus Magnesium Albumin 2.9 L 08/03/17 06:00 WBC Hgb Hct Plt Count INR Sodium 141 Potassium 4.4 Chloride 101 Carbon Dioxide 31 BUN 15 Creatinine 0.6 Random Glucose 97 Calcium 7.7 L Phosphorus 3.7 Magnesium 2.0 Albumin Chest Clear Cor Irregular Abd Obese Ext Lymphedema Venous stasis changes Bandaged right foot Neuro No new focal deficit Assessment and Plan Cellulitis Right foot, complicated by venous stasis and lymphedema Continue current Rx Morbid Obesity COPD/LEON with hypoventilation Former smoker C-PAP as directed AFib with h/o RVR On Rx HPL Stable Hypoalbuminemia Likely related to acute/chronic inflammatory condition moreso than nutritional factors Corrected Ca++ is 8.58 HTN Stable H/O RA H/O Low back pain syndrome H/O osteopenia Continue current Rx as outlined
[2017-08-03] MEDS: MULTIVITAMINS THER W-MINERALS COMBO TABLET (FP) PO SCH (10:31)
[2017-08-03] MEDS: LOSARTAN POTASSIUM 25 MG TABLET PO SCH (10:31)
[2017-08-03] MEDS: POTASSIUM CHLORIDE TABS 10 MEQ TABLET.ER (FP) PO SCH (10:31)
[2017-08-03] MEDS: guaiFENesin 600 MG TABLET.ER (FP) PO SCH (10:31)
[2017-08-03] MEDS: METOPROLOL SUCCINATE 50 MG TAB.SR.24H (FP) PO SCH ×2 (10:31→22:16)
[2017-08-03] MEDS: CYANOCOBALAMIN 1,000 MCG TABLET (FP) PO SCH (10:31)
[2017-08-03] MEDS: CHOLECALCIFEROL (VITAMIN D3) 1,000 UNIT TABLET (FP) PO SCH ×2 (10:32→22:13)
[2017-08-03] MEDS: ASCORBIC ACID 500 MG TABLET (FP) PO SCH (10:32)
[2017-08-03] MEDS: oxyCODONE HCL 5 MG TABLET PO PRN ×3 (10:34→22:13)
--- NOTE | 2017-08-03 13:01 | PN ---
Progress Note, Physician History of Present Illness: No c/o leg pain No fever/ chills Tolerating linezolid - Current Medication List Current Medications: Active Medications Ascorbic Acid (Vitamin C -) 1,000 mg PO DAILY [facility] Last Admin: 08/03/17 10:32 Dose: 1,000 mg Atorvastatin Calcium (Lipitor -) 10 mg PO HS [facility] Last Admin: 08/02/17 22:21 Dose: 10 mg Cholecalciferol (Vitamin D3 -) 1,000 unit PO BID [facility] Last Admin: 08/03/17 10:32 Dose: 1,000 unit Cyanocobalamin (Vitamin B12 -) 1,000 mcg PO DAILY [facility] Last Admin: 08/03/17 10:31 Dose: 1,000 mcg Diltiazem HCl (Cardizem -) 60 mg PO TID [facility] Last Admin: 08/03/17 05:55 Dose: 60 mg Docusate Sodium (Colace -) 100 mg PO DAILY PRN PRN Reason: CONSTIPATION Furosemide (Lasix Injection -) 40 mg IVPUSH DAILY [facility] Last Admin: 08/02/17 09:13 Dose: Not Given Guaifenesin (Mucinex -) 600 mg PO DAILY [facility] Last Admin: 08/03/17 10:31 Dose: 600 mg Linezolid (Zyvox 600 Mg Premix Bag (Restricted To Id) -) 300 mls @ 300 mls/hr IVPB Q12H [facility] PRN Reason: Protocol Last Admin: 08/03/17 05:35 Dose: 300 mls/hr Losartan Potassium (Cozaar -) 25 mg PO DAILY [facility] Last Admin: 08/03/17 10:31 Dose: 25 mg Metoprolol Succinate (Toprol Xl -) 50 mg PO BID [facility] Last Admin: 08/03/17 10:31 Dose: 50 mg Morphine Sulfate (Morphine Injection -) 1 mg IVPUSH Q4H PRN PRN Reason: PAIN LEVEL 6-10 Last Admin: 07/31/17 00:52 Dose: 1 mg Multivitamins/Minerals (Theragran-M) 1 each PO DAILY [facility] Last Admin: 08/03/17 10:31 Dose: 1 each Oxycodone HCl (Roxicodone -) 10 mg PO Q4H PRN PRN Reason: PAIN Last Admin: 08/03/17 10:34 Dose: 10 mg Potassium Chloride (K-Dur -) 10 meq PO DAILY [facility] Last Admin: 08/03/17 10:31 Dose: 10 meq Simethicone (Mylicon -) 80 mg PO Q4H PRN PRN Reason: GAS Last Admin: 07/31/17 00:51 Dose: 80 mg Warfarin Sodium 5 mg/ Warfarin (Sodium 1 mg) 6 mg PO DAILY@1800 [facility] Last Admin: 08/02/17 18:44 Dose: 6 mg - Objective Vital Signs: Vital Signs Temperature 98.7 F 08/03/17 06:00 Pulse Rate 99 H 08/03/17 06:00 Respiratory Rate 20 08/03/17 06:00 Blood Pressure 130/58 08/03/17 06:00 O2 Sat by Pulse Oximetry (%) 92 L 08/02/17 21:00 Constitutional: Yes: No Distress, Obese Eyes: Yes: Conjunctiva Clear Cardiovascular: Yes: Regular Rate and Rhythm, S1, S2 Respiratory: Yes: CTA Bilaterally Gastrointestinal: Yes: Normal Bowel Sounds, Soft, Abdomen, Obese. No: Tenderness Edema: Yes Edema: LLE: 3+, RLE: 3+ Integumentary: Yes: Other (decreased erythema R LE. no drainage noted.) Labs: CBC, BMP 08/03/17 06:00 08/03/17 06:00 INR, PTT INR 2.39 (0.82-1.09) H 08/03/17 06:00 Assessment/Plan Cellulitis R LE improved Chronic venous stasis dermatitis Antibiotic allergies Morbid obesity Continue zyvox, local wound care
[2017-08-03] MEDS: FUROSEMIDE 40 MG/4 ML INJECTABLE VIAL IVPUSH SCH (14:46)
[2017-08-03] MEDS ORDERED: WARFARIN NA 1 MG TABLET (FP) ONE (17:52)
[2017-08-03] MEDS ORDERED: WARFARIN NA 5 MG TABLET (UD) ONE (17:52)
[2017-08-03] MEDS: WARFARIN NA 5 MG, WARFARIN NA 1 MG PO SCH (17:54)
[2017-08-03] MEDS: ATORVASTATIN CA 10 MG TABLET (FP) PO SCH (22:13)
[2017-08-04] MEDS: dilTIAZem HCL 60 MG TABLET (FP) PO SCH ×3 (05:24→21:40)
[2017-08-04] MEDS: LINEZOLID 600 MG PREMIX BAG 300 ML IVPB SCH ×2 (05:49→17:50)
--- NOTE | 2017-08-04 09:40 | PN ---
Progress Note (short form) - Note Progress Note: Patient seen and examined Chart reviewed. Currently sitting up on the side of the bed, feeling chilled. Low grade temperature noted along with throat soreness. Patient remains on Zyvox. Labs, medications radiologic procedures and progress notes reviewed. Alert, responsive, and appropriate. Denies new chest discomfort or increased dyspnea. Will ask for ID re-assessment. Consider empiric Rx for thrush Selected Entries 08/03/17 08/04/17 21:00 06:03 Temperature 98.1 F Pulse Rate 107 H Respiratory 20 Rate Blood Pressure 91/49 O2 Sat by Pulse 92 L Oximetry (%) Oxygen Delivery Room Air Method Laboratory Tests 08/03/17 08/03/17 08/03/17 06:00 06:00 06:00 WBC 7.9 Hgb 12.9 Hct 39.5 Plt Count 267 INR 2.39 H Sodium 141 Potassium 4.4 Chloride 101 Carbon Dioxide 31 BUN 15 Creatinine 0.6 Random Glucose 97 Calcium 7.7 L Phosphorus 3.7 Magnesium 2.0 Rachid-pharynx No evidence of erythema or exudate No obvious evidence of fungal reaction Chest Clear Cor Irregular Abd Obese Ext Lymphedema Venous stasis changes Bandaged right foot Neuro No new focal deficit Assessment and Plan Cellulitis Right foot, complicated by venous stasis and lymphedema Continue current Rx Morbid Obesity COPD/LEON with hypoventilation Former smoker C-PAP as directed AFib with h/o RVR On Rx HPL Stable Hypoalbuminemia Likely related to acute/chronic inflammatory condition moreso than nutritional factors Corrected Ca++ was 8.58 HTN Stable Sore throat/ Low grade fever Await ID assessment Consider empiric anti-fungal (?anti-viral) therapy H/O RA H/O Low back pain syndrome H/O osteopenia Continue current Rx as outlined
[2017-08-04 10:29] LABS: BASOPHIL 0.5 % (0-2.0); EOSINOPHIL 1.1 % (0-4.5); MCH 27.8 pg (25.7-33.7); MCHC 31.8 g/dl (32.0-36.0); MEAN CELL VOLUME 87.4 fl (80-96); MEAN PLT VOLUME 7.2 fl (7.5-11.1); PLATELET COUNT 323 K/MM3 (134-434); RDW 14.7 % (11.6-15.6); WHITE BLOOD COUNT 16.8 K/mm3 (4.0-10.0)
[2017-08-04] MEDS: oxyCODONE HCL 5 MG TABLET PO PRN (11:04)
[2017-08-04] MEDS: METOPROLOL SUCCINATE 50 MG TAB.SR.24H (FP) PO SCH ×2 (11:04→21:40)
[2017-08-04] MEDS: MULTIVITAMINS THER W-MINERALS COMBO TABLET (FP) PO SCH (11:04)
[2017-08-04] MEDS: LOSARTAN POTASSIUM 25 MG TABLET PO SCH (11:04)
[2017-08-04] MEDS: CYANOCOBALAMIN 1,000 MCG TABLET (FP) PO SCH (11:04)
[2017-08-04] MEDS: guaiFENesin 600 MG TABLET.ER (FP) PO SCH (11:04)
[2017-08-04] MEDS: ASCORBIC ACID 500 MG TABLET (FP) PO SCH (11:04)
[2017-08-04] MEDS: CHOLECALCIFEROL (VITAMIN D3) 1,000 UNIT TABLET (FP) PO SCH ×2 (11:04→21:40)
[2017-08-04] MEDS: NYSTATIN 500,000 UNITS/5 ML SUSPENSION PO SCH ×3 (11:06→23:27)
[2017-08-04] MEDS: FUROSEMIDE 40 MG/4 ML INJECTABLE VIAL IVPUSH SCH (11:06)
[2017-08-04] MEDS: POTASSIUM CHLORIDE TABS 10 MEQ TABLET.ER (FP) PO SCH (11:06)
--- NOTE | 2017-08-04 14:37 | PN ---
Progress Note, Physician History of Present Illness: Reported sore throat this am Prescribed nystatin but reports symptoms resolved before she received it No c/o leg pain No fever/ chills Tolerating linezolid - Current Medication List Current Medications: Active Medications Ascorbic Acid (Vitamin C -) 1,000 mg PO DAILY [facility] Last Admin: 08/04/17 11:04 Dose: 1,000 mg Atorvastatin Calcium (Lipitor -) 10 mg PO HS [facility] Last Admin: 08/03/17 22:13 Dose: 10 mg Cholecalciferol (Vitamin D3 -) 1,000 unit PO BID [facility] Last Admin: 08/04/17 11:04 Dose: 1,000 unit Cyanocobalamin (Vitamin B12 -) 1,000 mcg PO DAILY [facility] Last Admin: 08/04/17 11:04 Dose: 1,000 mcg Diltiazem HCl (Cardizem -) 60 mg PO TID [facility] Last Admin: 08/04/17 14:07 Dose: 60 mg Docusate Sodium (Colace -) 100 mg PO DAILY PRN PRN Reason: CONSTIPATION Furosemide (Lasix Injection -) 40 mg IVPUSH DAILY [facility] Last Admin: 08/04/17 11:06 Dose: Not Given Guaifenesin (Mucinex -) 600 mg PO DAILY [facility] Last Admin: 08/04/17 11:04 Dose: 600 mg Linezolid (Zyvox 600 Mg Premix Bag (Restricted To Id) -) 300 mls @ 300 mls/hr IVPB Q12H [facility] PRN Reason: Protocol Last Admin: 08/04/17 05:49 Dose: 300 mls/hr Losartan Potassium (Cozaar -) 25 mg PO DAILY [facility] Last Admin: 08/04/17 11:04 Dose: 25 mg Metoprolol Succinate (Toprol Xl -) 50 mg PO BID [facility] Last Admin: 08/04/17 11:04 Dose: 50 mg Morphine Sulfate (Morphine Injection -) 1 mg IVPUSH Q4H PRN PRN Reason: PAIN LEVEL 6-10 Last Admin: 07/31/17 00:52 Dose: 1 mg Multivitamins/Minerals (Theragran-M) 1 each PO DAILY [facility] Last Admin: 08/04/17 11:04 Dose: 1 each Nystatin (Nystatin Oral Suspension -) 500,000 units PO Q6HPO [facility] Last Admin: 08/04/17 11:06 Dose: 500,000 units Oxycodone HCl (Roxicodone -) 10 mg PO Q4H PRN PRN Reason: PAIN Last Admin: 08/04/17 11:04 Dose: 10 mg Potassium Chloride (K-Dur -) 10 meq PO DAILY [facility] Last Admin: 08/04/17 11:06 Dose: 10 meq Simethicone (Mylicon -) 80 mg PO Q4H PRN PRN Reason: GAS Last Admin: 07/31/17 00:51 Dose: 80 mg Warfarin Sodium 5 mg/ Warfarin (Sodium 1 mg) 6 mg PO DAILY@1800 [facility] Last Admin: 08/03/17 17:54 Dose: 6 mg - Objective Vital Signs: Vital Signs Temperature 98.8 F 08/04/17 14:21 Pulse Rate 122 H 08/04/17 14:21 Respiratory Rate 20 08/04/17 14:21 Blood Pressure 105/50 08/04/17 14:21 O2 Sat by Pulse Oximetry (%) 92 L 08/03/17 21:00 Constitutional: Yes: No Distress, Obese HENT: Yes: Thrush, Other (tongue with white coating) Cardiovascular: Yes: Regular Rate and Rhythm, S1, S2 Respiratory: Yes: CTA Bilaterally Gastrointestinal: Yes: Normal Bowel Sounds, Soft. No: Tenderness Extremities: Yes: Other (R LE wrapped) Labs: CBC, BMP 08/04/17 10:20 08/03/17 06:00 INR, PTT INR 2.39 (0.82-1.09) H 08/03/17 06:00 Assessment/Plan Cellulitis R LE improved Chronic venous stasis dermatitis ? oral candidiasis Antibiotic allergies Morbid obesity Continue zyvox, local wound care Nystatin swish and swallow
[2017-08-04] MEDS ORDERED: WARFARIN NA 5 MG TABLET (UD) ONE (16:16)
[2017-08-04] MEDS ORDERED: WARFARIN NA 1 MG TABLET (FP) ONE (16:16)
[2017-08-04] MEDS: WARFARIN NA 5 MG, WARFARIN NA 1 MG PO SCH (17:50)
[2017-08-04] MEDS: ACETAMINOPHEN 325 MG TABLET (FP) PO PRN ×2 (17:51→23:25)
[2017-08-04] MEDS: ATORVASTATIN CA 10 MG TABLET (FP) PO SCH (21:40)
[2017-08-05] MEDS: NYSTATIN 500,000 UNITS/5 ML SUSPENSION PO SCH ×3 (07:06→17:40)
[2017-08-05] MEDS: dilTIAZem HCL 60 MG TABLET (FP) PO SCH ×3 (07:07→21:15)
[2017-08-05] MEDS: LINEZOLID 600 MG PREMIX BAG 300 ML IVPB SCH ×2 (07:08→17:40)
[2017-08-05 07:47] LABS: BASOPHIL 0.5 % (0-2.0); EOSINOPHIL 0.8 % (0-4.5); MCH 28.4 pg (25.7-33.7); MEAN CELL VOLUME 86.2 fl (80-96); MEAN PLT VOLUME 7.3 fl (7.5-11.1); NEUTROPHILS 79.4 % (42.8-82.8); PLATELET COUNT 244 K/MM3 (134-434); RDW 14.8 % (11.6-15.6); WHITE BLOOD COUNT 7.7 K/mm3 (4.0-10.0)
[2017-08-05] MEDS: oxyCODONE HCL 5 MG TABLET PO PRN ×3 (08:41→21:15)
[2017-08-05] MEDS: LOSARTAN POTASSIUM 25 MG TABLET PO SCH (09:49)
[2017-08-05] MEDS: FUROSEMIDE 40 MG/4 ML INJECTABLE VIAL IVPUSH SCH (10:00)
[2017-08-05] MEDS: POTASSIUM CHLORIDE TABS 10 MEQ TABLET.ER (FP) PO SCH (10:00)
[2017-08-05] MEDS: MULTIVITAMINS THER W-MINERALS COMBO TABLET (FP) PO SCH (10:01)
[2017-08-05] MEDS: guaiFENesin 600 MG TABLET.ER (FP) PO SCH (10:01)
[2017-08-05] MEDS: CYANOCOBALAMIN 1,000 MCG TABLET (FP) PO SCH (10:02)
[2017-08-05] MEDS: METOPROLOL SUCCINATE 50 MG TAB.SR.24H (FP) PO SCH ×2 (10:02→21:15)
[2017-08-05] MEDS: ASCORBIC ACID 500 MG TABLET (FP) PO SCH (10:03)
[2017-08-05] MEDS: CHOLECALCIFEROL (VITAMIN D3) 1,000 UNIT TABLET (FP) PO SCH ×2 (10:03→21:15)
[2017-08-05] MEDS: ACETAMINOPHEN 325 MG TABLET (FP) PO PRN (10:17)
--- NOTE | 2017-08-05 12:05 | PN ---
Progress Note (short form) - Note Progress Note: low grade temp yesterday sore throat now resolved Vital Signs Period Temp Pulse Resp BP Sys/William Pulse Ox Last 24 Hr 98.5 F-100.1 F 85-122 20-20 101-117/50-69 95 +thrush cor-rrr lungs clear abd soft,nt ext venous stasis/erythema improved, leg is tray drier CBC, BMP 08/05/17 06:30 08/03/17 06:00 a/p cellulitis/venous stasis improving day #5 zyvox thrush improved-on nystatin low grade temp resolved send cultures if she has fever again multiple antibiotics allergies anticipate discharge home in am on po zyvox for another 5 days Problem List - Problems (1) Cellulitis Code(s): L03.90 - CELLULITIS, UNSPECIFIED Qualifiers: Site of cellulitis: extremity Site of cellulitis of extremity: lower extremity Laterality: right Qualified Code(s): L03.115 - Cellulitis of right lower limb (2) Venous stasis dermatitis Code(s): I87.2 - VENOUS INSUFFICIENCY (CHRONIC) (PERIPHERAL) Qualifiers: Laterality: right Qualified Code(s): I87.2 - Venous insufficiency ( chronic) (peripheral) (3) Allergy to multiple antibiotics Code(s): Z88.1 - ALLERGY STATUS TO OTHER ANTIBIOTIC AGENTS STATUS (4) Obesity Code(s): E66.9 - OBESITY, UNSPECIFIED
--- NOTE | 2017-08-05 15:00 | PN ---
Progress Note, Physician Chief Complaint: Ms Torres is without new complaints. Still with RLE cellulitis but feels is better. No cp, sob, n/v. - Current Medication List Current Medications: Active Medications Acetaminophen (Tylenol -) 650 mg PO Q6H PRN PRN Reason: FEVER OR PAIN Last Admin: 08/05/17 10:17 Dose: 650 mg Ascorbic Acid (Vitamin C -) 1,000 mg PO DAILY [facility] Last Admin: 08/05/17 10:03 Dose: 1,000 mg Atorvastatin Calcium (Lipitor -) 10 mg PO HS [facility] Last Admin: 08/04/17 21:40 Dose: 10 mg Cholecalciferol (Vitamin D3 -) 1,000 unit PO BID [facility] Last Admin: 08/05/17 10:03 Dose: 1,000 unit Cyanocobalamin (Vitamin B12 -) 1,000 mcg PO DAILY [facility] Last Admin: 08/05/17 10:02 Dose: 1,000 mcg Diltiazem HCl (Cardizem -) 60 mg PO TID [facility] Last Admin: 08/05/17 14:48 Dose: Not Given Docusate Sodium (Colace -) 100 mg PO DAILY PRN PRN Reason: CONSTIPATION Furosemide (Lasix Injection -) 40 mg IVPUSH DAILY [facility] Last Admin: 08/05/17 10:00 Dose: 40 mg Guaifenesin (Mucinex -) 600 mg PO DAILY [facility] Last Admin: 08/05/17 10:01 Dose: 600 mg Linezolid (Zyvox 600 Mg Premix Bag (Restricted To Id) -) 300 mls @ 300 mls/hr IVPB Q12H BELL PRN Reason: Protocol Last Admin: 08/05/17 07:08 Dose: 300 mls/hr Losartan Potassium (Cozaar -) 25 mg PO DAILY [facility] Last Admin: 08/05/17 09:49 Dose: Not Given Metoprolol Succinate (Toprol Xl -) 50 mg PO BID [facility] Last Admin: 08/05/17 10:02 Dose: 50 mg Multivitamins/Minerals (Theragran-M) 1 each PO DAILY [facility] Last Admin: 08/05/17 10:01 Dose: 1 each Nystatin (Nystatin Oral Suspension -) 500,000 units PO Q6HPO [facility] Last Admin: 08/05/17 12:11 Dose: 500,000 units Oxycodone HCl (Roxicodone -) 10 mg PO Q4H PRN PRN Reason: PAIN Potassium Chloride (K-Dur -) 10 meq PO DAILY [facility] Last Admin: 08/05/17 10:00 Dose: 10 meq Simethicone (Mylicon -) 80 mg PO Q4H PRN PRN Reason: GAS Last Admin: 07/31/17 00:51 Dose: 80 mg Warfarin Sodium 5 mg/ Warfarin (Sodium 1 mg) 6 mg PO DAILY@1800 [facility] Last Admin: 08/04/17 17:50 Dose: 6 mg - Objective Vital Signs: Vital Signs Temperature 36.9 C 08/05/17 13:55 Pulse Rate 71 08/05/17 13:55 Respiratory Rate 20 08/05/17 13:55 Blood Pressure 95/55 08/05/17 13:55 O2 Sat by Pulse Oximetry (%) 95 08/05/17 09:00 Constitutional: Yes: No Distress, Calm, Obese Cardiovascular: Yes: Regular Rate and Rhythm. No: Gallop, Murmur, Rub Respiratory: Yes: Regular, CTA Bilaterally. No: Rales, Rhonchi, Wheezes Gastrointestinal: Yes: Normal Bowel Sounds, Soft. No: Distention, Tenderness Extremities: Yes: Erythema Edema: Yes Edema: LLE: 2+, RLE: 2+ Labs: CBC, BMP 08/05/17 06:30 08/03/17 06:00 INR, PTT INR 2.39 (0.82-1.09) H 08/03/17 06:00 Problem List - Problems (1) Cellulitis Code(s): L03.90 - CELLULITIS, UNSPECIFIED Qualifiers: Site of cellulitis: extremity Site of cellulitis of extremity: lower extremity Laterality: right Qualified Code(s): L03.115 - Cellulitis of right lower limb (2) Atrial fibrillation with RVR Code(s): I48.91 - UNSPECIFIED ATRIAL FIBRILLATION (3) HTN (hypertension) Code(s): I10 - ESSENTIAL (PRIMARY) HYPERTENSION (4) Lymphedema of both lower extremities Code(s): I89.0 - LYMPHEDEMA, NOT ELSEWHERE CLASSIFIED Assessment/Plan (1) Cellulitis Assessment/Plan: -appreciate ID assistance -continue zyvox -continue wound care -plan for discharge tomorrow with oral zyvox, preauthorization obtained Code(s): L03.90 - CELLULITIS, UNSPECIFIED Qualifiers: Site of cellulitis: extremity Site of cellulitis of extremity: lower extremity Laterality: right Qualified Code(s): L03.115 - Cellulitis of right lower limb (2) Lymphedema Assessment/Plan: -no CHF on ECHO -patient with lymphedema -continue lasix Code(s): I50.9 - HEART FAILURE, UNSPECIFIED Qualifiers: Congestive heart failure type: unspecified congestive heart failure type Congestive heart failure chronicity: unspecified congestive heart failure chronicity Qualified Code(s): I50.9 - Heart failure, unspecified (3) Atrial fibrillation with RVR Assessment/Plan: -appreciate cardiology assistance -continue cardizem, metoprolol, and coumadin Code(s): I48.91 - UNSPECIFIED ATRIAL FIBRILLATION (4) HTN (hypertension) Assessment/Plan: -losartan decreased -well controlled Code(s): I10 - ESSENTIAL (PRIMARY) HYPERTENSION
[2017-08-05] MEDS ORDERED: PT OWN MED DRAWER 7, Y5N ONE (17:30)
[2017-08-05] MEDS ORDERED: WARFARIN NA 5 MG TABLET (UD) ONE (17:36)
[2017-08-05] MEDS ORDERED: WARFARIN NA 1 MG TABLET (FP) ONE (17:36)
[2017-08-05] MEDS: WARFARIN NA 5 MG, WARFARIN NA 1 MG PO SCH (17:39)
[2017-08-05 19:49] LABS: INR 2.34 (0.82-1.09); PROTHROMBIN TIME (PATIENT) 26.2 SEC (9.98-11.88)
--- NOTE | 2017-08-05 21:02 | PN ---
Progress Note (short form) - Note Progress Note: CC: dyspnea s: no cp palps dizzy; le edema and sob/orthopnea improving. declined iv lasix over the weekend, but took today. no fevers today. Current Medications: Active Medications Acetaminophen (Tylenol -) 650 mg PO Q6H PRN PRN Reason: FEVER OR PAIN Last Admin: 08/05/17 10:17 Dose: 650 mg Ascorbic Acid (Vitamin C -) 1,000 mg PO DAILY [facility] Last Admin: 08/05/17 10:03 Dose: 1,000 mg Atorvastatin Calcium (Lipitor -) 10 mg PO HS [facility] Last Admin: 08/04/17 21:40 Dose: 10 mg Cholecalciferol (Vitamin D3 -) 1,000 unit PO BID [facility] Last Admin: 08/05/17 10:03 Dose: 1,000 unit Cyanocobalamin (Vitamin B12 -) 1,000 mcg PO DAILY [facility] Last Admin: 08/05/17 10:02 Dose: 1,000 mcg Diltiazem HCl (Cardizem -) 60 mg PO TID [facility] Last Admin: 08/05/17 14:48 Dose: Not Given Docusate Sodium (Colace -) 100 mg PO DAILY PRN PRN Reason: CONSTIPATION Furosemide (Lasix Injection -) 40 mg IVPUSH DAILY [facility] Last Admin: 08/05/17 10:00 Dose: 40 mg Guaifenesin (Mucinex -) 600 mg PO DAILY [facility] Last Admin: 08/05/17 10:01 Dose: 600 mg Linezolid (Zyvox 600 Mg Premix Bag (Restricted To Id) -) 300 mls @ 300 mls/hr IVPB Q12H BELL PRN Reason: Protocol Last Admin: 08/05/17 07:08 Dose: 300 mls/hr Losartan Potassium (Cozaar -) 25 mg PO DAILY [facility] Last Admin: 08/05/17 09:49 Dose: Not Given Metoprolol Succinate (Toprol Xl -) 50 mg PO BID [facility] Last Admin: 08/05/17 10:02 Dose: 50 mg Multivitamins/Minerals (Theragran-M) 1 each PO DAILY [facility] Last Admin: 08/05/17 10:01 Dose: 1 each Nystatin (Nystatin Oral Suspension -) 500,000 units PO Q6HPO [facility] Last Admin: 08/05/17 12:11 Dose: 500,000 units Oxycodone HCl (Roxicodone -) 10 mg PO Q4H PRN PRN Reason: PAIN Potassium Chloride (K-Dur -) 10 meq PO DAILY [facility] Last Admin: 08/05/17 10:00 Dose: 10 meq Simethicone (Mylicon -) 80 mg PO Q4H PRN PRN Reason: GAS Last Admin: 07/31/17 00:51 Dose: 80 mg Warfarin Sodium 5 mg/ Warfarin (Sodium 1 mg) 6 mg PO DAILY@1800 [facility] Last Admin: 08/04/17 17:50 Dose: 6 mg Vital Signs - 24 hr 08/04/17 08/05/17 08/05/17 22:00 09:00 10:00 Temperature 99.8 F H 98.5 F Pulse Rate 110 H 85 Respiratory 20 20 Rate Blood Pressure 117/69 106/62 O2 Sat by Pulse 95 Oximetry (%) 08/05/17 08/05/17 13:55 18:00 Temperature 98.5 F 98.0 F Pulse Rate 71 91 H Respiratory 20 18 Rate Blood Pressure 95/55 110/60 O2 Sat by Pulse Oximetry (%) Intake & Output 08/03/17 08/04/17 08/05/17 08/06/17 07:59 07:59 07:59 07:59 Intake Total 1010 023 350 7786 Balance 1010 969 287 5425 nad, calm jvd flat, neck supple ctab, nl effort irregular rate and rhythm. nl s1, s2 no mrg + bs soft nt nd, obese ext wrapped in dressings. 1+ dependent edema to abdomen, with trace edema of pannus (improved) no jaundice, diaphoresis aaox3 no labs ecg afib 116 bpm. possible anterior q's. non-specific t wave ab. overall, similar to priors. cxr: increased interstitial lung markings, chronic vs. mild perivascular congestion. by my review, similar to priors. echo 07/2017: tds. nl lv/rv size/fn. tds for rwma. no comment on diastolic function but e/a ratio 4:1. 1+ david. 1+ mr, rvsp nl Assessment/Plan 72 yo with h/o afib on coumadin, htn, hl, morbid obesity, copd, obesity hypoventilation syndrome, severe djd/oa/spinal stenosis, sjogren's, RA, gerd who p/w worsening of her chronic LE cellulitis. HTN: - controlled/running low on current meds chronic Afib: -cont coumadin per INR -rate control improving on dilt (uptitrated here) and metoprolol HPL: -cont statin venous insuff/le edema: -chronic condition, stable per pt - ? of possibility of diastolic chf. was ordered lasix 40 mg IV daily here on admit, but patient initially refused. Per dr. adams's last office note, low suspicion for diastolic chf. counseled pt on the importance of using weights to guide assessment of volume status, but patient declines. unable to assess i/ o as patient is incontinent. albumin 2.9 so unclear if edema is 2/2 third spacing or volume overload. - with iv lasix here pt reports some improvement in le edema, cont same - low suspicion for dvt since INR has been therapeutic. - repeat echo tds, but with nl systolic function. acute on chronic diastolic hf - 08/05 now s/p intermittent iv lasix with improvement in turner and orthopnea. No formal diagnosis of diastolic heart failure, but may have had component of acute on chronic diastolic heart failure here given improvement in sx's with diuresis. ? Rapid rates as trigger?. Repeat bmp. Plan to transition to po lasix in preparation for d/c. follow up with Dr. adams. cellulitis - mgm't per ID, vascular, pmd. obesity hypoventilation - cpap
[2017-08-05] MEDS: ATORVASTATIN CA 10 MG TABLET (FP) PO SCH (21:15)
[2017-08-06] MEDS: NYSTATIN 500,000 UNITS/5 ML SUSPENSION PO SCH ×3 (00:22→13:30)
[2017-08-06] MEDS: dilTIAZem HCL 60 MG TABLET (FP) PO SCH ×2 (06:28→13:40)
[2017-08-06] MEDS: LINEZOLID 600 MG PREMIX BAG 300 ML IVPB SCH (06:29)
[2017-08-06 07:11] LABS: BASOPHIL 0.4 % (0-2.0); EOSINOPHIL 2.3 % (0-4.5); MCH 27.8 pg (25.7-33.7); MCHC 32.5 g/dl (32.0-36.0); MEAN CELL VOLUME 85.7 fl (80-96); MEAN PLT VOLUME 7.3 fl (7.5-11.1); NEUTROPHILS 70.5 % (42.8-82.8); PLATELET COUNT 224 K/MM3 (134-434); RDW 14.5 % (11.6-15.6); WHITE BLOOD COUNT 5.9 K/mm3 (4.0-10.0)
[2017-08-06 07:34] LABS: ANION GAP 4 (8-16); CALCIUM 8.2 mg/dL (8.5-10.1); CO2 34 mmol/L (21-32); CREATININE 0.6 mg/dL (0.55-1.02); GLUCOSE,RANDOM 102 mg/dL (74-106); MAGNESIUM 1.9 mg/dL (1.8-2.4)
[2017-08-06] MEDS: ASCORBIC ACID 500 MG TABLET (FP) PO SCH (09:43)
[2017-08-06] MEDS: LOSARTAN POTASSIUM 25 MG TABLET PO SCH (09:43)
[2017-08-06] MEDS: oxyCODONE HCL 5 MG TABLET PO PRN (09:43)
[2017-08-06] MEDS: CHOLECALCIFEROL (VITAMIN D3) 1,000 UNIT TABLET (FP) PO SCH (09:44)
[2017-08-06] MEDS: POTASSIUM CHLORIDE TABS 10 MEQ TABLET.ER (FP) PO SCH (09:44)
[2017-08-06] MEDS: CYANOCOBALAMIN 1,000 MCG TABLET (FP) PO SCH (09:44)
[2017-08-06] MEDS: METOPROLOL SUCCINATE 50 MG TAB.SR.24H (FP) PO SCH (09:44)
[2017-08-06] MEDS: MULTIVITAMINS THER W-MINERALS COMBO TABLET (FP) PO SCH (09:44)
[2017-08-06] MEDS: guaiFENesin 600 MG TABLET.ER (FP) PO SCH (09:44)
[2017-08-06] MEDS: FUROSEMIDE 40 MG TABLET (FP) PO SCH ×2 (09:45→09:46)
[2017-08-06 10:18] LABS: INR 2.25 (0.82-1.09); PROTHROMBIN TIME (PATIENT) 25.2 SEC (9.98-11.88)
--- NOTE | 2017-08-06 10:30 | PN ---
Progress Note (short form) - Note Progress Note: c/o big toe pain leg unwrapped and examined Vital Signs Period Temp Pulse Resp BP Sys/William Pulse Ox Last 24 Hr 97.9 F-98.6 F 71-109 18-20 95-132/55-77 95-96 cor-rrr lungs clear abd soft,nt ext venous stasis much less erythema of the leg, scaling skin still some serous drainage big toe is tender to touch CBC, BMP 08/06/17 06:00 08/06/17 06:00 a/p cellulitis/venous stasis improving day #7 zyvox thrush improved-on nystatin low grade temp resolved toe pain- ?gout, send uric acid multiple antibiotics allergies anticipate discharge home on po zyvox for another 5 days d/w Dr Griffith Problem List - Problems (1) Cellulitis Code(s): L03.90 - CELLULITIS, UNSPECIFIED Qualifiers: Site of cellulitis: extremity Site of cellulitis of extremity: lower extremity Laterality: right Qualified Code(s): L03.115 - Cellulitis of right lower limb (2) Venous stasis dermatitis Code(s): I87.2 - VENOUS INSUFFICIENCY (CHRONIC) (PERIPHERAL) Qualifiers: Laterality: right Qualified Code(s): I87.2 - Venous insufficiency ( chronic) (peripheral) (3) Allergy to multiple antibiotics Code(s): Z88.1 - ALLERGY STATUS TO OTHER ANTIBIOTIC AGENTS STATUS (4) Obesity Code(s): E66.9 - OBESITY, UNSPECIFIED
--- NOTE | 2017-08-06 10:53 | DS ---
Physical Examination Vital Signs: Vital Signs Temperature 37.0 C 08/06/17 08:44 Pulse Rate 106 H 08/06/17 08:44 Respiratory Rate 20 08/06/17 08:44 Blood Pressure 129/77 08/06/17 08:44 O2 Sat by Pulse Oximetry (%) 96 08/06/17 08:44 Labs: CBC, BMP 08/06/17 06:00 08/06/17 06:00 Discharge Summary Reason For Visit: CELLULITIS Current Active Problems Allergy to multiple antibiotics (Acute) Atrial fibrillation (Acute) Cellulitis (Acute) Drug rash (Acute) Lymphedema of both lower extremities (Acute) Obesity (Acute) Obesity hypoventilation syndrome (Acute) Penicillin allergy (Acute) Supratherapeutic INR (Acute) Venous stasis dermatitis (Acute) Condition: Stable - Instructions Diet, Activity, Other Instructions: resume previous diet and activity Referrals: Mike Boykin MD [Primary Care Provider] - Shirley Fraga MD [Staff Physician] - Disposition: HOME - Home Medications Comprehensive Discharge Medication List: Ambulatory Orders Ascorbate Calcium [Vitamin C] 1,000 mg PO DAILY 08/30/15 Cholecalciferol (Vitamin D3) [Vitamin D3] 1,000 unit PO BID 08/30/15 Cyanocobalamin [Vitamin B12 -] 1,000 mcg PO DAILY 08/30/15 Oxycodone/APAP [Percocet - Must Order Individual Components] 1 each NR QID PRN 08/30/15 Simvastatin 10 mg PO HS 08/30/15 Guaifenesin [Mucinex] 600 mg PO DAILY 06/20/17 Multivit-Min/FA/Lycopen/Lutein [Centrum Silver Tablet] 1 each PO DAILY 06/20/17 Warfarin Na [Coumadin -] 6 mg PO ASDIR 06/20/17 Metoprolol Succinate [Toprol XL -] 50 mg PO BID #60 tab.sr 06/25/17 Docusate Sodium [Colace -] 1 cap PO DAILY PRN 07/12/17 Fish Oil/Borage/Flax/Om3,6,9#1 [[place] 3-6-9 1,200 mg Softgel] 1 cap PO DAILY Diltiazem [Cardizem -] 60 mg PO TID #90 tablet 08/06/17 Furosemide [Lasix -] 40 mg PO DAILY #30 tab 08/06/17 Linezolid [Zyvox] 600 mg PO BID #10 tablet 08/06/17 Losartan Potassium [Cozaar -] 25 mg PO DAILY #30 tablet 08/06/17 Potassium Chloride [Klor-Con 10] 10 meq PO DAILY #30 tab.sr 08/06/17
[2017-08-06 13:47] VITALS: BP 123/67; PULSE 111; TEMP 97.5
== END 2017-08-06 14:43 | disposition home or self-care (01) | DRG 602 ==
LOC: JER 13:35 → JERBED 18:32 → J7W 23:00
PROVIDERS: ADMIT Internal Medicine; ATTEND Internal Medicine
DX: L03.115 Cellulitis of right lower limb (principal); I50.33 Acute on chronic diastolic (congestive) heart failure; Z68.43 Body mass index [BMI] 50.0-59.9, adult; I87.2 Venous insufficiency (chronic) (peripheral); I48.2 Chronic atrial fibrillation; R79.1 Abnormal coagulation profile; Z88.0 Allergy status to penicillin; B37.9 Candidiasis, unspecified; E66.01 Morbid (severe) obesity due to excess calories; I11.0 Hypertensive heart disease with heart failure; I89.0 Lymphedema, not elsewhere classified; E88.09 Other disorders of plasma-protein metabolism, not elsewhere classified; Z87.891 Personal history of nicotine dependence
CPT/HCPCS: 36415; 71010-TC; 73070-TC-LT; 73590-TC-RT; 80048; 80053; 81003; 83735; 84100; 84550; 85025; 85610; 87081; 93005; 93010; 93306-TC; 94660; 97116-GP; 97161-GP; 99284-25

== ENCOUNTER 2017-08-29 16:46 | Inpatient (IN) | payer OTHER, MEDICARE ==
--- NOTE | 2017-08-29 17:42 | PDOC ---
History of Present Illness - General Chief Complaint: Wound Infection Stated Complaint: PCP SENT/leg wounds Time Seen by Provider: 08/29/17 17:41 - History of Present Illness Initial Comments: 08/29/17 17:42 Jillian Torres is a 72 yo female with a significant past medical history of afib on coumadin, OA, RA, sjogrens, HTN, COPD, venous stasis w/ b/l LE ulcers, R>>>L , cellulitis who presents to the emergency department on advice from vascular doctor Lisa for admission for IV antibiotics. The patient denies chest pain, shortness of breath, headache and dizziness. Denies fever, chills, nausea, vomit, diarrhea and constipation. Denies dysuria, frequency, urgency and hematuria. PMD -Abiliopa 08/29/17 20:53 Past History - Past Medical History Allergies/Adverse Reactions: Allergies Allergy/AdvReac Type Severity Reaction Status Date / Time Penicillins Allergy Severe Swelling Verified 08/29/17 17:05 clindamycin Allergy Mild Rash Verified 08/29/17 17:05 vancomycin AdvReac Mild Itching Verified 08/29/17 17:05 adhesive tape AdvReac Verified 08/29/17 17:05 Home Medications: Ambulatory Orders Ascorbate Calcium [Vitamin C] 1,000 mg PO DAILY 08/30/15 Cholecalciferol (Vitamin D3) [Vitamin D3] 1,000 unit PO BID 08/30/15 Cyanocobalamin [Vitamin B12 -] 1,000 mcg PO DAILY 08/30/15 Oxycodone/APAP [Percocet - Must Order Individual Components] 1 each NR QID PRN 08/30/15 Simvastatin 10 mg PO HS 08/30/15 Guaifenesin [Mucinex] 600 mg PO DAILY 06/20/17 Multivit-Min/FA/Lycopen/Lutein [Centrum Silver Tablet] 1 each PO DAILY 06/20/17 Warfarin Na [Coumadin -] 6 mg PO DAILY 06/20/17 Metoprolol Succinate [Toprol XL -] 50 mg PO BID #60 tab.sr 06/25/17 Docusate Sodium [Colace -] 1 cap PO DAILY PRN 07/12/17 Fish Oil/Borage/Flax/Om3,6,9#1 [[place] 3-6-9 1,200 mg Softgel] 1 cap PO DAILY Linezolid [Zyvox] 600 mg PO BID #10 tablet 08/06/17 Losartan Potassium [Cozaar -] 25 mg PO DAILY #30 tablet 08/06/17 Diltiazem [Cardizem -] 30 mg PO TID 08/29/17 Furosemide [Lasix] 40 mg PO ASDIR PRN 08/29/17 Potassium Chloride [Klor-Con 10] 10 meq PO DAILY PRN 08/29/17 Anemia: No Asthma: No Cancer: No Cardiac Disorders: Yes (ATRIAL FIBRILLATION) CVA: No COPD: Yes CHF: No Dementia: No Diabetes: No GI Disorders: No Disorders: No HTN: Yes Hypercholesterolemia: Yes Liver Disease: No Seizures: No Thyroid Disease: Yes (LEFT THYROID LUMP) - Surgical History Abdominal Surgery: No Appendectomy: No Cardiac Surgery: No Cholecystectomy: No Lung Surgery: No Neurologic Surgery: No Orthopedic Surgery: Yes (BILATERAL KNEE REPLACEMENT) - Immunization History Immunization Up to Date: No - Suicide/Smoking/Psychosocial Hx Smoking History: Never smoked Have you smoked in the past 12 months: No Number of Cigarettes Smoked Daily: 0 If you are a former smoker, when did you quit?: 1985 Cigars Per Day: 0 Information on smoking cessation initiated: Yes Hx Alcohol Use: No Drug/Substance Use Hx: No Substance Use Type: None Hx Substance Use Treatment: No Review of Systems - Review of Systems Comments:: 08/29/17 17:42 GENERAL/CONSTITUTIONAL: No fever or chills. No weakness. HEAD, EYES, EARS, NOSE AND THROAT: No change in vision. No ear pain or discharge. No sore throat. CARDIOVASCULAR: No chest pain or shortness of breath RESPIRATORY: No cough, wheezing, or hemoptysis. GASTROINTESTINAL: No nausea, vomiting, diarrhea or constipation. GENITOURINARY: No dysuria, frequency, or change in urination. MUSCULOSKELETAL: +Bilateral lower extremity swelling. Weeping sores reported on both legs. Back pain consistent with OA as well. SKIN: No rash NEUROLOGIC: No headache, vertigo, loss of consciousness, or change in strength/ sensation. ENDOCRINE: No increased thirst. No abnormal weight change HEMATOLOGIC/LYMPHATIC: No anemia, easy bleeding, or history of blood clots. ALLERGIC/IMMUNOLOGIC: No hives or skin allergy. *Physical Exam - Vital Signs Last Vital Signs Temp Pulse Resp BP Pulse Ox 98.5 F 99 H 19 101/62 95 08/29/17 17:03 08/29/17 17:03 08/29/17 17:03 08/29/17 17:03 08/29/17 17:03 - Physical Exam Comments: 08/29/17 17:42 GENERAL: Awake, alert, and fully oriented, in no acute distress. Patient morbidly obese. HEAD: No signs of trauma, normocephalic, atraumatic EYES: PERRLA, EOMI, sclera anicteric, conjunctiva clear ENT: Auricles normal inspection, hearing grossly normal, nares patent, oropharynx clear without exudates. Moist mucosa NECK: Normal ROM, supple, no lymphadenopathy, JVD, or masses LUNGS: No distress, speaks full sentences, clear to auscultation bilaterally HEART: Regular rate and rhythm, normal S1 and S2, no murmurs, rubs or gallops, peripheral pulses normal and equal bilaterally. ABDOMEN: Soft, nontender, normoactive bowel sounds. No guarding, no rebound. No masses EXTREMITIES: +Extreme bilateral lower extremity swelling with weeping sores noted. R more than left, significant erythematous weeping sores below knee extending to bottom of foot. Warm and oozing clear fluid. No clubbing or cyanosis. NEUROLOGICAL: Cranial nerves II through XII grossly intact. Normal speech, normal gait, no focal sensorimotor deficits ED Treatment Course - LABORATORY CBC & Chemistry Diagram: 08/29/17 18:00 08/29/17 18:00 Medical Decision Making - Medical Decision Making 08/29/17 20:43 Patient presents following visit with Lisa for care of her grossly cellulitic legs. Swab of R leg taken as well as blood cultures. Previously on Zyvox both IV and PO due to allergies to penicillins, clindamycin , and vancomycin. Consulting [facility] for guidance on further ABX. Will admit for IV ABX treatment. 08/29/17 22:06 Jesus consulted for ID. Jesus will put in orders for Zyvox on patient. *DC/Admit/Observation/Transfer Diagnosis at time of Disposition: Cellulitis Qualifiers: Site of cellulitis: extremity Site of cellulitis of extremity: lower extremity Laterality: unspecified laterality Qualified Code(s): L03.119 - Cellulitis of unspecified part of limb - Discharge Dispostion Admit: Yes
[2017-08-29 18:35] LABS: BASOPHIL 0.5 % (0-2.0); EOSINOPHIL 1.3 % (0-4.5); MCH 27.7 pg (25.7-33.7); MCHC 32.2 g/dl (32.0-36.0); MEAN CELL VOLUME 86.2 fl (80-96); MEAN PLT VOLUME 7.7 fl (7.5-11.1); NEUTROPHILS 76.5 % (42.8-82.8); PLATELET COUNT 339 K/MM3 (134-434); RDW 16.1 % (11.6-15.6); WHITE BLOOD COUNT 8.6 K/mm3 (4.0-10.0)
[2017-08-29 18:35] LABS: VENOUS PH 7.4 (7.32-7.42)
[2017-08-29 18:39] LABS: VENOUS BLOOD GAS HCO3 27.1 meq/L (19-25)
[2017-08-29 18:51] LABS: INR 2.81 (0.82-1.09); PROTHROMBIN TIME (PATIENT) 31.6 SEC (9.98-11.88)
[2017-08-29 18:53] LABS: ACTIVATED PTT 42.4 SECONDS (26.9-34.4)
[2017-08-29 19:14] LABS: ALBUMIN 2.7 g/dl (3.4-5.0); ANION GAP 9 (8-16); BILIRUBIN,TOTAL 0.6 mg/dL (0.2-1.0); CALCIUM 8.5 mg/dL (8.5-10.1); CO2 26 mmol/L (21-32); CREATININE 0.7 mg/dL (0.55-1.02); GLUCOSE,RANDOM 147 mg/dL (74-106); SGPT/ALT 18 U/L (12-78); TOT PROT 6.3 g/dl (6.4-8.2)
[2017-08-29 19:17] LABS: ALK PHOS 156 U/L (45-117); CPK 69 IU/L (26-192); TROPONIN I < 0.02 ng/ml (0.00-0.05)
[2017-08-29 19:25] LABS: SGOT/AST 22 U/L (15-37)
[2017-08-29] MEDS ORDERED: oxyCODONE HCL 5 MG TABLET PO ONE (19:42)
[2017-08-29] MEDS ORDERED: SODIUM CHLORIDE 1,000 ML IV STA (20:02)
[2017-08-29] MEDS ORDERED: oxyCODONE HCL 5 MG TABLET ONE (20:10)
[2017-08-29] MEDS ORDERED: WARFARIN NA 5 MG TABLET (UD) PO SCH (22:01)
[2017-08-29] MEDS ORDERED: DOCUSATE SODIUM 100 MG CAPSULE (FP) PO PRN (22:15)
--- NOTE | 2017-08-29 22:29 | HP ---
CHIEF COMPLAINT:Send by for cellultitis for IV Abx PCP:Kaycee HISTORY OF PRESENT ILLNESS: 72F with extesnsive PMH and PSH listed below presents to the ED send in from Vascular surgeron Dr. Gonzalez's office for bilateral lower extremity cellulitis that has worsened. Patient was recently discharged form the hospital in july after being treated for cellultitis with IV zyvox as she has multiple Abx allergies and she was discharged on PO Zyvoxx for 5 more days. She states he legs never improved and she did complete the Abx. She states she went to go see her vascular surgeron today and he told her she needed to come to the ED for IV Abx. Patient seen by Dr. Fraga from infectious disease in the past. Patient denies nausea vomiting fevers chills chest pain urinary symptoms or diarrhea. She has occasional constipation and she also endorses her lower extremities weep large amounts of fluid. She states her exercise tolerance fluctuates depending on many factors such as how fast she is walking and whether she is stressed out. She believes it may be worsening at times. She states she is able to walk from the parking lot to the hospital main entrance which is about 1-2 blocks. She complains of being cold. Of note the patient was very frustrated during the interview complainging she has been in the Ed a long time and she wants to eat and drink iced water. ER course was notable for: (1)IVF (2)Labs (3)Abx Recent Travel: PAST MEDICAL HISTORY: A. fib on coumadin, RA, OA, osteopenia, spinal stenosis L4 -L5, lumbar Radiculopathy, fibromyalgia, sjogrens syndrome, HTN, COPD, venous insufficiency, recurrent cellulitis of lower extremities bilaterally, non healing lower extremity ulcers/wounds, secondary polycythemia, carpal tunnel both wrists, LEON sleeps with CPAP, Morbid obesity. PAST SURGICAL HISTORY:total knee replacement bilaterally, lipoma removal right neck, possible left thyroid surgery, partial left corneal transplant, complete left corneal transplant Social History: Smoking:Denies Alcohol:Denies Drugs: Denies Family History: Allergies Penicillins Allergy (Severe, Verified 08/29/17 17:05) Swelling clindamycin Allergy (Mild, Verified 08/29/17 17:05) Rash vancomycin Adverse Reaction (Mild, Verified 10/05/17 17:05) Itching adhesive tape Adverse Reaction (Verified 08/29/17 17:05) HOME MEDICATIONS: Home Medications Medication Instructions Recorded Ascorbate Calcium [Vitamin C] 1,000 mg PO DAILY 08/30/15 Cholecalciferol (Vitamin D3) 1,000 unit PO BID 08/30/15 [Vitamin D3] Cyanocobalamin [Vitamin B12 -] 1,000 mcg PO DAILY 08/30/15 Oxycodone/APAP [Percocet - Must 1 each NR QID PRN 08/30/15 Order Individual Components] Simvastatin 10 mg PO HS 08/30/15 Guaifenesin [Mucinex] 600 mg PO DAILY 06/20/17 Multivit-Min/FA/Lycopen/Lutein 1 each PO DAILY 06/20/17 [Centrum Silver Tablet] Warfarin Na [Coumadin -] 6 mg PO DAILY 06/20/17 Metoprolol Succinate [Toprol XL -] 50 mg PO BID #60 tab.sr 06/25/17 Docusate Sodium [Colace -] 1 cap PO DAILY PRN 07/12/17 Fish Oil/Borage/Flax/Om3,6,9#1 1 cap PO DAILY 07/12/17 [[place] 3-6-9 1,200 mg Softgel] Linezolid [Zyvox] 600 mg PO BID #10 tablet 08/06/17 Losartan Potassium [Cozaar -] 25 mg PO DAILY #30 tablet 08/06/17 Diltiazem [Cardizem -] 30 mg PO TID 08/29/17 Furosemide [Lasix] 40 mg PO ASDIR PRN 08/29/17 Potassium Chloride [Klor-Con 10] 10 meq PO DAILY PRN 08/29/17 REVIEW OF SYSTEMS CONSTITUTIONAL: Absent: fever, chills, diaphoresis, generalized weakness, malaise, loss of appetite, weight change HEENT: Absent: rhinorrhea, nasal congestion, throat pain, throat swelling, difficulty swallowing, mouth swelling, ear pain, eye pain, visual changes CARDIOVASCULAR: Absent: chest pain, syncope, palpitations, irregular heart rate, lightheadedness present: peripheral edema-worsening lower extremity edema RESPIRATORY: Absent: cough, shortness of breath, orthopnea, wheezing, stridor, hemoptysis Present: dyspnea with exertion GASTROINTESTINAL: Absent: abdominal pain, abdominal distension, nausea, vomiting, diarrhea, constipation, melena, hematochezia GENITOURINARY: Absent: dysuria, frequency, urgency, hesitancy, hematuria, flank pain, genital pain MUSCULOSKELETAL: Absent: neck pain Present: myalgia, arthralgia, joint swelling, back pain-all chronic complaints SKIN: Absent: rash, itching, pallor Present: Worsening lower extremity ulceration and erythema HEMATOLOGIC/IMMUNOLOGIC: Absent: easy bleeding, easy bruising, lymphadenopathy, frequent infections ENDOCRINE: Absent: unexplained weight gain, unexplained weight loss, heat intolerance, cold intolerance NEUROLOGIC: Absent: headache, focal weakness or paresthesias, dizziness, unsteady gait, seizure, mental status changes, bladder or bowel incontinence PSYCHIATRIC: Absent: anxiety, depression, suicidal or homicidal ideation, hallucinations. PHYSICAL EXAMINATION GENERAL: Awake, alert, and fully oriented. Agitated HEAD: Normal with no signs of trauma. EYES: EOMI EARS, NOSE, THROAT:Moist mucous membranes. NECK: supple without JVD LUNGS: Breath sounds equal, clear to auscultation bilaterally. HEART: Regular rate and rhythm, normal S1 and S2 without murmur ABDOMEN: Soft, Obese, nontender, not distended MUSCULOSKELETAL: No CVA tenderness. LOWER EXTREMITIES: Large amount of weeping clear fluid from RLE. Malodorous RLE , Erythema from foot all the way up to knee which is tender and hot to touch. LLE has flaking skin with evidence of chronic venous stasis. warm to touch medially and just distal to knee. Medial malleolus ulcer. NEUROLOGICAL: Cranial nerves II-XII grossly intact. Normal speech. PSYCHIATRIC: agitated/frustrated ASSESSMENT/PLAN: 72F with multiple medical problems including chronic venous stasis presents to the ED with worsening cellultitis of bilateral lower extremities. Cellultitis of bilateral lower extremities/venous insufficiency: Admit to inpatient med/surg ID consult Vascular consult Dr. Lee consulted by ED started on zyvox 600mg Q12h dressing changes per vascular Sx f/u wound cx f/u BCx Patient takes lasix 40mg po PRN for edema patient currently being hydrated do will hold but may need to restart tomorrow. Takes it PRn with 10meq of KCl PRn Lactic acidosis: lactic acid 2.1 repeat after IVF A. Fib: Rate control Restart metoprolol restart cardizem restart coumadin currently therapeutic HTN: Restart cardizem metoprolol and losartan BP Well controlled at this time Hyperglycemia: Given risk factors will check HbA1c LEON: Patient brought in CPAP machine from home. Can restart CPAP QHS HLD: Restart statin will restart lipitor as Zocor is not formulary Fibromyalgia/Radiculopathy/spinal stenosis/OA/RA: Pain control with percocet as she is on this as outpatient COPD: O2 and bronchodilators if needed currently asymptomatic and not wheezing Morbid obesity: counselled on weight loss-patient not interested Sjogrens: Outpatient follow up Osteopenia: Outpatient follow up FEN: No IVF no electrolyte issues Sodium controlled diet PPx: Coumadin no GI PPx indicated PT consult to avoid deconditioning Case disucces with attending Dr. Sosa Visit type - Emergency Visit Emergency Visit: Yes ED Registration Date: 08/29/17 Care time: The patient presented to the Emergency Department on the above date and was hospitalized for further evaluation of their emergent condition. - New Patient This patient is new to me today: Yes Date on this admission: 08/29/17 - Critical Care Critical Care patient: No
[2017-08-29] MEDS ORDERED: WARFARIN NA 1 MG TABLET (FP) ONE (22:55)
[2017-08-29] MEDS ORDERED: dilTIAZem HCL 30 MG TABLET (FP) ONE (22:55)
[2017-08-29] MEDS ORDERED: WARFARIN NA 5 MG TABLET (UD) ONE (22:55)
[2017-08-29] MEDS: WARFARIN NA 5 MG, WARFARIN NA 1 MG PO SCH (23:06)
[2017-08-29] MEDS: dilTIAZem HCL 60 MG TABLET (FP) PO SCH (23:07)
--- NOTE | 2017-08-29 23:14 | PN ---
Teaching Attending Note Name of Resident: Manuel Woodard ATTENDING PHYSICIAN STATEMENT I saw and evaluated the patient. I reviewed the resident's note and discussed the case with the resident. I agree with the resident's findings and plan as documented. SUBJECTIVE: 72 year old female with history of recurrent LE cellulitis secondary to chronic venous stasis , presents today due to worsening edema and weeping of b/l lower extremity. She was seen by vascular surgery today and due to progression of her symptomas and need for IV antibiotics she was sent to ED . Denies fevers. Currently receiving wound care at home daily Completed course of PO Zyvox mid July PMH AFib HTN Obesity Obesity Hypoventilation DJD OA Spinal Stenosis RA Sjogrens LE cellulitis Venous insufficiency OBJECTIVE: Vital Signs Temperature 98.5 F 08/29/17 17:03 Pulse Rate 103 H 08/29/17 19:53 Respiratory Rate 19 08/29/17 17:03 Blood Pressure 103/57 08/29/17 19:53 O2 Sat by Pulse Oximetry (%) 98 08/29/17 19:53 GEN : obese, in NAD EXT - b/l LE edema and erythema, chronic venous stasis skin changes , RLE epithelial desquamation below the level of mid funes weeping skin ulcers b/l , none of them are draining. CBC, BMP 08/29/17 18:00 08/29/17 18:00 INR, PTT INR 2.81 (0.82-1.09) H 08/29/17 18:00 LActate 2.1 ASSESSMENT AND PLAN: 1. LE cellulitis, bilateral - with failure of recent oral antibiotic therapy and history of MDRO, history of chronic venous stasis and possible diastolic dysfuntion - cultues are sent - IV Zyvox per ID - local wound care - Lasix IV while inpatien but will likely need daily upon discharge - vascular eval 2. AFIB - rate controlled . Appropriately anticoagulated. Will continue coumadin.
--- NOTE | 2017-08-29 23:38 | PDOC ---
Attending Attestation - Resident Resident Name: Faraz Malone - ED Attending Attestation I have performed the following: I have examined & evaluated the patient, The case was reviewed & discussed with the resident, I agree w/resident's findings & plan, Exceptions are as noted - HPI HPI: 08/29/17 23:34 72 yo F with h/o chronic venous stasis and leg wounds here with weeping leg wounds, malodorous discharge. no f/c no cp or sob. has had worsenign weeping recently. was seen by dr pascal, sent due to concerns for superimposed infection. on exam awake alert lungs clear heart rrr no mrg. abd soft nt obese. ext wwp. right leg with diffuse erythema well demarcated, oozing. plan : admit for iv antiobtiocs. infectious disease. labs. 08/29/17 23:37 08/29/17 23:38 - Physicial Exam PE: 08/29/17 23:37 on exam awake alert lungs clear heart rrr no mrg. abd soft nt obese. ext wwp. right leg with diffuse erythema well demarcated, oozing. - Medical Decision Making 08/29/17 23:37 08/29/17 23:38 plan : admit for iv antiobtiocs. infectious disease. labs.
[2017-08-30] MEDS: LINEZOLID 600 MG PREMIX BAG 300 ML IVPB SCH ×2 (00:05→09:54)
[2017-08-30 02:42] VITALS: BMI 47.3
[2017-08-30] MEDS: dilTIAZem HCL 60 MG TABLET (FP) PO SCH ×3 (06:40→22:13)
[2017-08-30] MEDS: METOPROLOL SUCCINATE 50 MG TAB.SR.24H (FP) PO SCH ×3 (07:16→22:13)
[2017-08-30] MEDS: ATORVASTATIN CA 10 MG TABLET (FP) PO SCH ×2 (07:16→22:12)
[2017-08-30 08:01] LABS: BASOPHIL 0.5 % (0-2.0); EOSINOPHIL 0.7 % (0-4.5); INR 2.71 (0.82-1.09); MCH 27.6 pg (25.7-33.7); MCHC 32.3 g/dl (32.0-36.0); MEAN CELL VOLUME 85.5 fl (80-96); MEAN PLT VOLUME 7.7 fl (7.5-11.1); NEUTROPHILS 70.2 % (42.8-82.8); PLATELET COUNT 306 K/MM3 (134-434); PROTHROMBIN TIME (PATIENT) 30.4 SEC (9.98-11.88); RDW 15.8 % (11.6-15.6); WHITE BLOOD COUNT 7.8 K/mm3 (4.0-10.0)
[2017-08-30 08:03] LABS: ACTIVATED PTT 39.1 SECONDS (26.9-34.4)
[2017-08-30 08:23] LABS: ALBUMIN 2.6 g/dl (3.4-5.0); ALK PHOS 166 U/L (45-117); ANION GAP 7 (8-16); BILIRUBIN,TOTAL 0.8 mg/dL (0.2-1.0); CALCIUM 8.2 mg/dL (8.5-10.1); CO2 30 mmol/L (21-32); CREATININE 0.6 mg/dL (0.55-1.02); GLUCOSE,RANDOM 95 mg/dL (74-106); MAGNESIUM 1.9 mg/dL (1.8-2.4); PHOSPHOROUS 3.1 mg/dL (2.5-4.9); SGOT/AST 24 U/L (15-37); SGPT/ALT 21 U/L (12-78); TOT PROT 5.9 g/dl (6.4-8.2)
[2017-08-30] MEDS: oxyCODONE HCL 5 MG TABLET PO PRN ×3 (08:57→18:49)
[2017-08-30] MEDS: ACETAMINOPHEN 325 MG TABLET (FP) PO PRN ×3 (08:57→18:49)
--- NOTE | 2017-08-30 09:53 | CON.ID ---
Consult Consult Specialty:: Infectious Disease Reason for Consultation:: Cellulitis - History of Present Illness History of Present Illness: 72yo F with multiple comorbidities including venous stasis LE ulcers, prior history of MRSA cellulitis, and morbid obesity who initially presented to the ER from Dr. Gonzalez's office due to concern for b/l LE cellulitis. Pt states she was recently hospitalized in July 2017 due to cellulitis receiving IV Linezolid and being discharged on PO Linezolid for 5 days. Pt states she completed the course as directed, however her LE cellulitis didn't seem to get better. She has been seeing Dr. Gonzalez for a total of 2 visits now after multiple attempts to see other wound care specialists. Currently pt has felt warm and is experiencing pain in her b/l lower extremities. She was given Linezolid IV in the ER x1 dose, however she endorses multiple episodes of bilious vomiting after her first dose and refused the second. Reports L leg Pt denies chills, diarrhea/constipation, nausea, cough, SOB, abdominal pain, dysuria. Pt endorses being urinary incontinent and is accustomed to using adult diapers. SoHx: No smoking No alcohol Lives at home with who is disabled; retired, but able to perform ADLs with walker and cane usage Allergies: Pencillin - Anaphylaxis Clindamycin - Rash Vancomycin - Pruritic arm erythema PMD - Schirrpa Wound Care - Dr. Gonzalez - History Source History Provided By: Patient Limitations to Obtaining History: No Limitations - Past Medical History Cardio/Vascular: Yes: AFIB, HTN, Other (h/o DVT) Pulmonary: Yes: COPD, Sleep Apnea Hepatobiliary: Yes: Other (fatty liver disease) Musculoskeletal: Yes: Chronic low back pain (/spinal stenosis) Rheumatology: Yes: Rheumatoid Arthritis Endocrine: Yes: Osteopenia, Other (obesity, thyroid nodule) - Past Surgical History Past Surgical History: Yes: Joint Replacement (right knee over 10 years ago) Additional Surgical History: Lipoma removal. Corneal Transplants (L eye) - Alcohol/Substance Use Hx Alcohol Use: No History of Substance Use: reports: None - Smoking History Smoking history: Never smoked Have you smoked in the past 12 months: No Aproximately how many cigarettes per day: 0 If you are a former smoker, when did you quit?: 1984 - Social History Usual Living Arrangement: With Spouse ( disabled) ADL: Independent History of Recent Travel: No Home Medications - Allergies Allergies/Adverse Reactions: Allergies Allergy/AdvReac Type Severity Reaction Status Date / Time Penicillins Allergy Severe Swelling Verified 08/29/17 17:05 clindamycin Allergy Mild Rash Verified 08/29/17 17:05 vancomycin AdvReac Mild Itching Verified 08/29/17 17:05 adhesive tape AdvReac Verified 08/29/17 17:05 - Home Medications Home Medications: Ambulatory Orders Ascorbate Calcium [Vitamin C] 1,000 mg PO DAILY 08/30/15 Cholecalciferol (Vitamin D3) [Vitamin D3] 1,000 unit PO BID 08/30/15 Cyanocobalamin [Vitamin B12 -] 1,000 mcg PO DAILY 08/30/15 Oxycodone/APAP [Percocet - Must Order Individual Components] 1 each NR QID PRN 08/30/15 Simvastatin 10 mg PO HS 08/30/15 Guaifenesin [Mucinex] 600 mg PO DAILY 06/20/17 Multivit-Min/FA/Lycopen/Lutein [Centrum Silver Tablet] 1 each PO DAILY 06/20/17 Warfarin Na [Coumadin -] 6 mg PO DAILY 06/20/17 Metoprolol Succinate [Toprol XL -] 50 mg PO BID #60 tab.sr 06/25/17 Docusate Sodium [Colace -] 1 cap PO DAILY PRN 07/12/17 Fish Oil/Borage/Flax/Om3,6,9#1 [[place] 3-6-9 1,200 mg Softgel] 1 cap PO DAILY Linezolid [Zyvox] 600 mg PO BID #10 tablet 08/06/17 Losartan Potassium [Cozaar -] 25 mg PO DAILY #30 tablet 08/06/17 Diltiazem [Cardizem -] 30 mg PO TID 08/29/17 Furosemide [Lasix] 40 mg PO ASDIR PRN 08/29/17 Potassium Chloride [Klor-Con 10] 10 meq PO DAILY PRN 08/29/17 Family Disease History - Family Disease History Family Disease History: Other: Father (alcohol abuse), Mother (rheumatoid arthritis) Physical Exam Vital Signs: Vital Signs Temperature 98.2 F 08/30/17 07:05 Pulse Rate 147 H 08/30/17 07:05 Respiratory Rate 20 08/30/17 07:05 Blood Pressure 117/62 08/30/17 07:05 O2 Sat by Pulse Oximetry (%) 98 08/29/17 23:08 Constitutional: Yes: No Distress, Calm, Obese Eyes: Yes: EOM Intact, PERRL Cardiovascular: Yes: Tachycardia (regular rhythm). No: Murmur Respiratory: Yes: Regular, CTA Bilaterally. No: Accessory Muscle Use, Rales, Rhonchi, SOB, Wheezes Gastrointestinal: Yes: Normal Bowel Sounds, Soft, Abdomen, Obese. No: Tenderness Extremities: Yes: Other (B/L lower extremity erythema with macerated looking skin. R LE shows erythema extending to 2cm above knee vs. L LE erythema extending to 1cm below knee. B/L legs are painful and warm to touch. R foot erythema again with warmth and pain upon palpation. Distal pulses intact, but weakly palpable. No overt lacerations or ulcers seen. + weeping clear fluid in b /l LE.) Edema: Yes Integumentary: Yes: Other (See Extremity section). No: Rash Neurological: Yes: Alert, Oriented Psychiatric: Yes: Alert, Oriented Labs: CBC, BMP 08/30/17 07:00 08/30/17 07:00 Imaging - Results Chest X-ray: Report Reviewed, Image Reviewed Assessment/Plan Assessment: B/L LE cellulitis vs. dermatitis vs possible allergy to alginate (?) Chronic venous stasis Morbid Obesity Plan: Will recommend to primary team about Dermatology consult --Will order ESR and CRP Start Tigacycline 100mg IV once followed by 50mg IVPB BID --Pt has history of MRSA with reactions and failures to other classes of antibiotics that would cover --Linezolid not tolerated with this admission Wound care using alginate on wound --? possibility of allergic reaction to alginate; will discuss with wound care Case discussed with Dr. Flakito Schaeffer, DO - Internal Medicine PGY-1
[2017-08-30] MEDS: CYANOCOBALAMIN 1,000 MCG TABLET (FP) PO SCH (09:55)
[2017-08-30] MEDS: ASCORBIC ACID 500 MG TABLET (FP) PO SCH (09:55)
[2017-08-30] MEDS: LOSARTAN POTASSIUM 25 MG TABLET PO SCH (09:55)
[2017-08-30] MEDS: CHOLECALCIFEROL (VITAMIN D3) 1,000 UNIT TABLET (FP) PO SCH ×3 (09:55→22:13)
[2017-08-30] MEDS ORDERED: WARFARIN NA 5 MG TABLET (UD) PO SCH (10:00)
--- NOTE | 2017-08-30 10:50 | PN ---
Teaching Attending Note Name of Resident: Rocky Schaeffer ATTENDING PHYSICIAN STATEMENT I saw and evaluated the patient. I reviewed the resident's note and discussed the case with the resident. I agree with the resident's findings and plan as documented. SUBJECTIVE: leg continue to weepespecially the right leg and have become more red she got zyvox in the ed had bilious vomiting one hour later that she attributes to the zyvox has been using alginate on her legs as well OBJECTIVE: Vital Signs Period Temp Pulse Resp BP Sys/William Pulse Ox Last 24 Hr 98.2 F-99.4 F 98-147 18-20 101-141/53-71 95-98 right leg with more erythema then the left dry scales notes, serous drainage noted CBC, BMP 08/30/17 07:00 08/30/17 07:00 cultures pending ASSESSMENT AND PLAN: venous stasis recurrent cellulitis history of RA allergies to multiple antibiotics penicillin, clindamycin, vancomycin now vomiting to zyvox will try tygacil d/w Dr Griffith would consider dermatology consult esr/crp
[2017-08-30] MEDS ORDERED: TIGECYCLINE 100 MG in DEXTROSE 5%-WATER - 100 ML IVPB ONE (11:45)
--- NOTE | 2017-08-30 12:41 | PN ---
Progress Note, Physician Chief Complaint: Patient says she is having burning secondary to salve placed on legs. No cp, sob , n/v. - Current Medication List Current Medications: Active Medications Acetaminophen (Tylenol -) 325 mg PO Q4H PRN PRN Reason: PAIN Last Admin: 08/30/17 08:57 Dose: 325 mg Ascorbic Acid (Vitamin C -) 1,000 mg PO DAILY [facility] Last Admin: 08/30/17 09:55 Dose: 1,000 mg Atorvastatin Calcium (Lipitor -) 5 mg PO HS [facility] Last Admin: 08/30/17 07:16 Dose: Not Given Cholecalciferol (Vitamin D3 -) 1,000 unit PO BID [facility] Last Admin: 08/30/17 09:55 Dose: 1,000 unit Cyanocobalamin (Vitamin B12 -) 1,000 mcg PO DAILY [facility] Last Admin: 08/30/17 09:55 Dose: 1,000 mcg Diltiazem HCl (Cardizem -) 30 mg PO TID [facility] Last Admin: 08/30/17 06:40 Dose: 30 mg Docusate Sodium (Colace -) 100 mg PO BID PRN PRN Reason: CONSTIPATION Tigecycline 100 mg/ Dextrose 100 mls @ 100 mls/hr IVPB ONCE ONE PRN Reason: Protocol Stop: 08/30/17 12:44 Tigecycline 50 mg/ Dextrose 100 mls @ 100 mls/hr IVPB BID [facility] PRN Reason: Protocol Losartan Potassium (Cozaar -) 25 mg PO DAILY [facility] Last Admin: 08/30/17 09:55 Dose: 25 mg Metoprolol Succinate (Toprol Xl -) 50 mg PO BID [facility] Last Admin: 08/30/17 09:55 Dose: 50 mg Oxycodone HCl (Roxicodone -) 7.5 mg PO Q4H PRN PRN Reason: Pain Last Admin: 08/30/17 08:57 Dose: 7.5 mg Warfarin Sodium 5 mg/ Warfarin (Sodium 1 mg) 6 mg PO DAILY@1800 [facility] Last Admin: 08/29/17 23:06 Dose: 6 mg Zinc Sulfate (Orazinc -) 220 mg PO HS [facility] Last Admin: 08/30/17 00:00 Dose: 220 mg - Objective Vital Signs: Vital Signs Temperature 37.4 C 08/30/17 10:00 Pulse Rate 127 H 08/30/17 10:00 Respiratory Rate 18 10/06/17 10:00 Blood Pressure 102/53 08/30/17 10:00 O2 Sat by Pulse Oximetry (%) 98 08/29/17 23:08 Constitutional: Yes: No Distress, Calm, Obese Cardiovascular: Yes: Pulse Irregular. No: Tachycardia, Gallop, Murmur, Rub Respiratory: Yes: Regular, CTA Bilaterally. No: Rales, Rhonchi, Wheezes Gastrointestinal: Yes: Normal Bowel Sounds, Soft. No: Distention, Tenderness Extremities: Yes: Erythema Edema: Yes Edema: LLE: 3+, RLE: 3+ Labs: CBC, BMP 08/30/17 07:00 08/30/17 07:00 INR, PTT INR 2.71 (0.82-1.09) H 08/30/17 07:00 Problem List - Problems (1) Cellulitis Assessment/Plan: -patient presents with erythema of bilateral lower extremities -possibly sepsis, ? if underlying dermatologic or vasculitis -Dr Salvador consulted for wound care -Dr Hernandez consulted for dermatology evaluation -case d/w Dr Fraga, will trial tigecycline Code(s): L03.90 - CELLULITIS, UNSPECIFIED Qualifiers: Site of cellulitis: extremity Site of cellulitis of extremity: lower extremity Laterality: unspecified laterality Qualified Code(s): L03.119 - Cellulitis of unspecified part of limb; L03.119 - Cellulitis of unspecified part of limb (2) Atrial fibrillation Assessment/Plan: -rate controlled -INR therapeutic, continue coumadin Code(s): I48.91 - UNSPECIFIED ATRIAL FIBRILLATION Qualifiers: Atrial fibrillation type: chronic Qualified Code(s): I48.2 - Chronic atrial fibrillation; I48.2 - Chronic atrial fibrillation; I48.2 - Chronic atrial fibrillation; I48.2 - Chronic atrial fibrillation (3) Lymphedema of both lower extremities Assessment/Plan: -chronic Code(s): I89.0 - LYMPHEDEMA, NOT ELSEWHERE CLASSIFIED (4) Obesity Assessment/Plan: -outpatient weight loss program per Dr Boykin Code(s): E66.9 - OBESITY, UNSPECIFIED (5) HTN (hypertension) Assessment/Plan: -well controlled -continue current regimen Code(s): I10 - ESSENTIAL (PRIMARY) HYPERTENSION (6) HLD (hyperlipidemia) Assessment/Plan: -continue statin Code(s): E78.5 - HYPERLIPIDEMIA, UNSPECIFIED
--- NOTE | 2017-08-30 16:07 | PN ---
Progress Note (short form) - Note Progress Note: Pt was seen by Dr. Gonzalez yesterday and sent in for admission. Her lower extremities remain to weep serous fluid right greater than left. She had recevied IV abx and now was on oral zyvox. Vital Signs Period Temp Pulse Resp BP Sys/William Pulse Ox Last 24 Hr 98.2 F-99.4 F 98-147 18-20 101-141/53-71 95-98 Right leg: with serous weeping extensively along the lower leg up to lateral knee. Toes tender to touch. No large opened ulcerated areas. Mild erythema. Left leg: serous weeping at medial ankle, otherwise dry/crusted skin to lower ext. No erythema. Tender over medial ankle area. CBC, BMP 08/30/17 07:00 08/30/17 07:00 Microbiology wound culture and blood cultures pending A/P: 72 yo female with cellulitis with chronic lymphedema to lower extremities D/w Dr. Gonzalez and wound care orders written with strict leg elevation ID for cellulitis
[2017-08-30] MEDS ORDERED: WARFARIN NA 5 MG TABLET (UD) ONE (17:05)
[2017-08-30] MEDS ORDERED: WARFARIN NA 1 MG TABLET (FP) ONE (17:06)
[2017-08-30] MEDS: WARFARIN NA 5 MG, WARFARIN NA 1 MG PO SCH (17:08)
[2017-08-30] MEDS ORDERED: WARFARIN NA 5 MG, WARFARIN NA 1 MG PO SCH (18:00)
--- NOTE | 2017-08-30 18:15 | CONSULT ---
Consult Consult Specialty:: Dermatology - History Source History Provided By: Patient Limitations to Obtaining History: No Limitations - Past Medical History Cardio/Vascular: Yes: AFIB, HTN, Other (h/o DVT) Pulmonary: Yes: COPD, Sleep Apnea Hepatobiliary: Yes: Other (fatty liver disease) Musculoskeletal: Yes: Chronic low back pain (/spinal stenosis) Rheumatology: Yes: Rheumatoid Arthritis Endocrine: Yes: Osteopenia, Other (obesity, thyroid nodule) - Past Surgical History Past Surgical History: Yes: Joint Replacement (right knee over 10 years ago) Additional Surgical History: Lipoma removal. Corneal Transplants (L eye) - Alcohol/Substance Use Hx Alcohol Use: No History of Substance Use: reports: None - Smoking History Smoking history: Never smoked Have you smoked in the past 12 months: No Aproximately how many cigarettes per day: 0 If you are a former smoker, when did you quit?: 1984 - Social History Usual Living Arrangement: With Spouse ( disabled) ADL: Independent History of Recent Travel: No Home Medications - Allergies Allergies/Adverse Reactions: Allergies Allergy/AdvReac Type Severity Reaction Status Date / Time Penicillins Allergy Severe Swelling Verified 08/29/17 17:05 clindamycin Allergy Mild Rash Verified 08/29/17 17:05 vancomycin AdvReac Mild Itching Verified 08/29/17 17:05 adhesive tape AdvReac Verified 08/29/17 17:05 - Home Medications Home Medications: Ambulatory Orders Ascorbate Calcium [Vitamin C] 1,000 mg PO DAILY 08/30/15 Cholecalciferol (Vitamin D3) [Vitamin D3] 1,000 unit PO BID 08/30/15 Cyanocobalamin [Vitamin B12 -] 1,000 mcg PO DAILY 08/30/15 Oxycodone/APAP [Percocet - Must Order Individual Components] 1 each NR QID PRN 08/30/15 Simvastatin 10 mg PO HS 08/30/15 Guaifenesin [Mucinex] 600 mg PO DAILY 06/20/17 Multivit-Min/FA/Lycopen/Lutein [Centrum Silver Tablet] 1 each PO DAILY 06/20/17 Warfarin Na [Coumadin -] 6 mg PO DAILY 06/20/17 Metoprolol Succinate [Toprol XL -] 50 mg PO BID #60 tab.sr 06/25/17 Docusate Sodium [Colace -] 1 cap PO DAILY PRN 07/12/17 Fish Oil/Borage/Flax/Om3,6,9#1 [[place] 3-6-9 1,200 mg Softgel] 1 cap PO DAILY Linezolid [Zyvox] 600 mg PO BID #10 tablet 08/06/17 Losartan Potassium [Cozaar -] 25 mg PO DAILY #30 tablet 08/06/17 Diltiazem [Cardizem -] 30 mg PO TID 08/29/17 Furosemide [Lasix] 40 mg PO ASDIR PRN 08/29/17 Potassium Chloride [Klor-Con 10] 10 meq PO DAILY PRN 08/29/17 Family Disease History - Family Disease History Family Disease History: Other: Father (alcohol abuse), Mother (rheumatoid arthritis) Physical Exam Vital Signs: Vital Signs Temperature 98.9 F 08/30/17 15:46 Pulse Rate 100 H 08/30/17 15:46 Respiratory Rate 18 08/30/17 15:46 Blood Pressure 115/58 08/30/17 15:46 O2 Sat by Pulse Oximetry (%) 98 08/30/17 09:00 Labs: CBC, BMP 08/30/17 07:00 08/30/17 07:00 Assessment/Plan Dx Lipodermatosclerosis? lymphedema /chronic stasis dermatitis /recurrent edema admitted for cellulitis. Patient being followed by Vascular and infectious disease. Consider adding steroid ointment mixed with bactroban to areas that are erythematous . Biopsy not indicated. No evidence of Vasculitis. Discussed etiology and treatment with patient .Discuss foot care and skin care with patient to decrease recurrent infections. Will follow as needed.
[2017-08-30] MEDS ORDERED: PT OWN MED DRAWER 7, Y5N ONE (22:06)
[2017-08-30] MEDS: TIGECYCLINE 50 MG in DEXTROSE 5%-WATER - 100 ML IVPB SCH (22:13)
[2017-08-30] MEDS: ZINC SULFATE 220 MG CAPSULE (FP) PO SCH ×2 (22:13)
[2017-08-31] MEDS: dilTIAZem HCL 60 MG TABLET (FP) PO SCH ×3 (06:17→22:17)
[2017-08-31 08:21] LABS: BASOPHIL 0.5 % (0-2.0); EOSINOPHIL 2.2 % (0-4.5); MCH 27.3 pg (25.7-33.7); MCHC 31.6 g/dl (32.0-36.0); MEAN CELL VOLUME 86.5 fl (80-96); MEAN PLT VOLUME 7.9 fl (7.5-11.1); NEUTROPHILS 68.2 % (42.8-82.8); PLATELET COUNT 289 K/MM3 (134-434); RDW 16.5 % (11.6-15.6); WHITE BLOOD COUNT 6.5 K/mm3 (4.0-10.0)
[2017-08-31 08:43] LABS: INR 2.87 (0.82-1.09); PROTHROMBIN TIME (PATIENT) 32.2 SEC (9.98-11.88)
[2017-08-31 08:51] LABS: ANION GAP 8 (8-16); C-REACTIVE PROTEIN 2.4 MG/DL (0.00-0.3); CALCIUM 8.2 mg/dL (8.5-10.1); CO2 28 mmol/L (21-32); CREATININE 0.5 mg/dL (0.55-1.02); GLUCOSE,RANDOM 73 mg/dL (74-106); MAGNESIUM 2.1 mg/dL (1.8-2.4); PHOSPHOROUS 3.4 mg/dL (2.5-4.9)
[2017-08-31] MEDS ORDERED: PT OWN MED DRAWER 7, Y5N ONE ×2 (10:23→22:22)
[2017-08-31] MEDS: CYANOCOBALAMIN 1,000 MCG TABLET (FP) PO SCH (10:29)
[2017-08-31] MEDS: LOSARTAN POTASSIUM 25 MG TABLET PO SCH (10:29)
[2017-08-31] MEDS: METOPROLOL SUCCINATE 50 MG TAB.SR.24H (FP) PO SCH ×2 (10:29→22:15)
[2017-08-31] MEDS: TIGECYCLINE 50 MG in DEXTROSE 5%-WATER - 100 ML IVPB SCH ×2 (10:29→22:22)
[2017-08-31] MEDS: CHOLECALCIFEROL (VITAMIN D3) 1,000 UNIT TABLET (FP) PO SCH ×2 (10:29→22:19)
[2017-08-31] MEDS: ASCORBIC ACID 500 MG TABLET (FP) PO SCH (10:29)
[2017-08-31] MEDS: oxyCODONE HCL 5 MG TABLET PO PRN ×2 (12:26→17:10)
--- NOTE | 2017-08-31 12:26 | PN ---
Progress Note (short form) - Note Progress Note: Complains of pain in right toes. No fever Right calf wounds improved - less edema and erythema. Will need to continue daily dressings and elevation. Would consider SNF for chronic care.
--- NOTE | 2017-08-31 12:35 | PN ---
Progress Note, Physician Chief Complaint: patient complaining of rash under right breast. History of Present Illness: patient admitted with worsening rash R>L lower extremity in spite of recent admission with IV Antibiotics. She has seen wound care MD and has local care and wrapping of her legs but it almost appears that the skin is almost peeled fom her right lower extremity from the ankle down. She is having a preliminary + C/S of leg rash and is on Antibiotic but has multiple allergies. Rash under right breast has an odor and appears to be tinea corporis; will start Rx. - Current Medication List Current Medications: Active Medications Acetaminophen (Tylenol -) 325 mg PO Q4H PRN PRN Reason: PAIN Last Admin: 08/30/17 18:49 Dose: 325 mg Ascorbic Acid (Vitamin C -) 1,000 mg PO DAILY [facility] Last Admin: 08/31/17 10:29 Dose: 1,000 mg Atorvastatin Calcium (Lipitor -) 5 mg PO HS [facility] Last Admin: 08/30/17 22:12 Dose: 5 mg Cholecalciferol (Vitamin D3 -) 1,000 unit PO BID [facility] Last Admin: 08/31/17 10:29 Dose: 1,000 unit Cyanocobalamin (Vitamin B12 -) 1,000 mcg PO DAILY [facility] Last Admin: 08/31/17 10:29 Dose: 1,000 mcg Diltiazem HCl (Cardizem -) 30 mg PO TID [facility] Last Admin: 08/31/17 06:17 Dose: 30 mg Docusate Sodium (Colace -) 100 mg PO BID PRN PRN Reason: CONSTIPATION Tigecycline 50 mg/ Dextrose 100 mls @ 100 mls/hr IVPB BID [facility] PRN Reason: Protocol Last Admin: 08/31/17 10:29 Dose: 100 mls/hr Losartan Potassium (Cozaar -) 25 mg PO DAILY [facility] Last Admin: 08/31/17 10:29 Dose: 25 mg Metoprolol Succinate (Toprol Xl -) 50 mg PO BID [facility] Last Admin: 08/31/17 10:29 Dose: 50 mg Nystatin (Mycostatin Cream -) 1 applic TP BID [facility] Oxycodone HCl (Roxicodone -) 7.5 mg PO Q4H PRN PRN Reason: Pain Last Admin: 08/31/17 12:26 Dose: 7.5 mg Warfarin Sodium 5 mg/ Warfarin (Sodium 1 mg) 6 mg PO DAILY@1800 [facility] Last Admin: 08/30/17 17:08 Dose: 6 mg Zinc Sulfate (Orazinc -) 220 mg PO HS [facility] Last Admin: 08/30/17 22:13 Dose: 220 mg - Objective Vital Signs: Vital Signs Temperature 98.2 F 08/31/17 10:20 Pulse Rate 100 H 08/31/17 10:20 Respiratory Rate 20 08/31/17 10:20 Blood Pressure 130/80 08/31/17 10:20 O2 Sat by Pulse Oximetry (%) 98 08/30/17 21:00 Constitutional: Yes: Calm Cardiovascular: Yes: Pulse Irregular Respiratory: Yes: Regular Edema: LLE: 2+, RLE: 2+ Wound/Incision: Yes: Reddened, Excoriated (but currently wrapped with Gomez bandages over gauze; Patient showed me Pics on her phone.) Labs: CBC, BMP 08/31/17 06:00 08/31/17 08:30 INR, PTT INR 2.87 (0.82-1.09) H 08/31/17 06:00 - ....Imaging Chest X-ray: Report Reviewed (May need repeat CXR.) Problem List - Problems (1) Atrial fibrillation Assessment/Plan: On Coumadin dauly INR's renewed Code(s): I48.91 - UNSPECIFIED ATRIAL FIBRILLATION Qualifiers: Atrial fibrillation type: chronic Qualified Code(s): I48.2 - Chronic atrial fibrillation; I48.2 - Chronic atrial fibrillation; I48.2 - Chronic atrial fibrillation; I48.2 - Chronic atrial fibrillation (2) Cellulitis Assessment/Plan: On IV antibiotics Pending C/S Code(s): L03.90 - CELLULITIS, UNSPECIFIED Qualifiers: Site of cellulitis: extremity Site of cellulitis of extremity: lower extremity Laterality: unspecified laterality Qualified Code(s): L03.119 - Cellulitis of unspecified part of limb; L03.119 - Cellulitis of unspecified part of limb (3) Lymphedema of both lower extremities Assessment/Plan: Gomez bandages wraps in place Code(s): I89.0 - LYMPHEDEMA, NOT ELSEWHERE CLASSIFIED (4) Venous stasis dermatitis Assessment/Plan: Probably contributing to recurrent skin wheezes Code(s): I87.2 - VENOUS INSUFFICIENCY (CHRONIC) (PERIPHERAL) Qualifiers: Laterality: right Qualified Code(s): I87.2 - Venous insufficiency ( chronic) (peripheral); I87.2 - Venous insufficiency (chronic) (peripheral)
[2017-08-31] MEDS: NYSTATIN 100,000 UNIT/GM TOPICAL CREAM 15 GM TUBE TP SCH ×2 (14:16→22:16)
[2017-08-31] MEDS: ACETAMINOPHEN 325 MG TABLET (FP) PO PRN (14:17)
--- NOTE | 2017-08-31 15:28 | PN ---
Progress Note (short form) - Note Progress Note: reports everyone says leg is less red new dressing intact tolerating tygacil Vital Signs Period Temp Pulse Resp BP Sys/William Pulse Ox Last 24 Hr 97.4 F-98.9 F 100-118 18-20 107-130/53-80 98 cor-rrr lungs clear CBC, BMP 08/31/17 06:00 08/31/17 08:30 a/p cellulitis venous stasis continue tygacil derm consult noted - will d/w vascular whether she will benefit from steroid/ bactroban multiple antibiotic allergies
[2017-08-31] MEDS ORDERED: WARFARIN NA 5 MG TABLET (UD) ONE (17:06)
[2017-08-31] MEDS ORDERED: WARFARIN NA 1 MG TABLET (FP) ONE (17:07)
[2017-08-31] MEDS: WARFARIN NA 5 MG, WARFARIN NA 1 MG PO SCH (17:09)
--- NOTE | 2017-08-31 19:29 | EKG ---
Test Reason : Blood Pressure : / mmHG Vent. Rate : 141 BPM Atrial Rate : 468 BPM P-R Int : 000 ms QRS Dur : 076 ms QT Int : 296 ms P-R-T Axes : 000 067 061 degrees QTc Int : 453 ms ATRIAL FIBRILLATION WITH RAPID VENTRICULAR RESPONSE BASELINE ARTIFACT NONSPECIFIC ST AND T WAVE ABNORMALITY ABNORMAL ECG WHEN COMPARED WITH ECG OF 30-JUL-2017 20:08, CRITERIA FOR SEPTAL INFARCT ARE NO LONGER PRESENT REPEAT EKG IF CLINICALLY INDICATED Confirmed by IZZY GUNTER MD ([id number]) on 08/31/2017 7:29:35 PM Referred By: Confirmed By:IZZY GUNTER MD
[2017-08-31] MEDS: ATORVASTATIN CA 10 MG TABLET (FP) PO SCH (22:16)
[2017-08-31] MEDS: ZINC SULFATE 220 MG CAPSULE (FP) PO SCH (22:16)
[2017-08-31] MEDS: dilTIAZem HCL 30 MG TABLET (FP) PO SCH (22:24)
[2017-09-01] MEDS: dilTIAZem HCL 30 MG TABLET (FP) PO SCH ×3 (06:39→21:51)
[2017-09-01 08:57] LABS: INR 2.87 (0.82-1.09); PROTHROMBIN TIME (PATIENT) 32.2 SEC (9.98-11.88)
[2017-09-01] MEDS ORDERED: PT OWN MED DRAWER 7, Y5N ONE ×2 (09:16→20:53)
[2017-09-01] MEDS: LOSARTAN POTASSIUM 25 MG TABLET PO SCH (09:29)
[2017-09-01] MEDS: TIGECYCLINE 50 MG in DEXTROSE 5%-WATER - 100 ML IVPB SCH ×2 (09:30→21:50)
[2017-09-01] MEDS: METOPROLOL SUCCINATE 50 MG TAB.SR.24H (FP) PO SCH ×2 (09:30→21:52)
[2017-09-01] MEDS: NYSTATIN 100,000 UNIT/GM TOPICAL CREAM 15 GM TUBE TP SCH ×2 (09:30→21:51)
[2017-09-01] MEDS: ASCORBIC ACID 500 MG TABLET (FP) PO SCH (09:31)
[2017-09-01] MEDS: oxyCODONE HCL 5 MG TABLET PO PRN ×3 (09:31→22:09)
[2017-09-01] MEDS: CHOLECALCIFEROL (VITAMIN D3) 1,000 UNIT TABLET (FP) PO SCH ×2 (09:31→21:51)
[2017-09-01] MEDS: CYANOCOBALAMIN 1,000 MCG TABLET (FP) PO SCH (09:31)
[2017-09-01] MEDS: MINERAL OIL/PETROLAT/WATER TOPICAL CREAM 454 GM JAR TP SCH (11:11)
--- NOTE | 2017-09-01 11:17 | PN ---
Progress Note, Physician Chief Complaint: Patient having diarrhea. Frustrated with IV access issues. History of Present Illness: Patient on IV antibiotics for persistent rash/cellulitis of lower extremities. Repeat wound C/S + but sensitivities pending. Diarrhea today may be due to IV antibiotics.; C. Diff studies ordered. Dry lips and Hx: Sjogrens Eucerin cream to be applied today to lower extremities. To D/C BGM with values in the 70's and no history DM. - Current Medication List Current Medications: Active Medications Acetaminophen (Tylenol -) 325 mg PO Q4H PRN PRN Reason: PAIN Last Admin: 08/31/17 14:17 Dose: 325 mg Ascorbic Acid (Vitamin C -) 1,000 mg PO DAILY [facility] Last Admin: 09/01/17 09:31 Dose: 1,000 mg Atorvastatin Calcium (Lipitor -) 5 mg PO HS [facility] Last Admin: 08/31/17 22:16 Dose: 5 mg Cholecalciferol (Vitamin D3 -) 1,000 unit PO BID [facility] Last Admin: 09/01/17 09:31 Dose: 1,000 unit Cyanocobalamin (Vitamin B12 -) 1,000 mcg PO DAILY [facility] Last Admin: 09/01/17 09:31 Dose: 1,000 mcg Diltiazem HCl (Cardizem -) 30 mg PO TID [facility] Last Admin: 09/01/17 06:39 Dose: 30 mg Docusate Sodium (Colace -) 100 mg PO BID PRN PRN Reason: CONSTIPATION Tigecycline 50 mg/ Dextrose 100 mls @ 100 mls/hr IVPB BID [facility] PRN Reason: Protocol Last Admin: 09/01/17 09:30 Dose: 100 mls/hr Losartan Potassium (Cozaar -) 25 mg PO DAILY [facility] Last Admin: 09/01/17 09:29 Dose: 25 mg Metoprolol Succinate (Toprol Xl -) 50 mg PO BID [facility] Last Admin: 09/01/17 09:30 Dose: 50 mg Multi-Ingredient Lotion (Eucerin (Large Jar) -) 1 applic TP DAILY [facility] Nystatin (Mycostatin Cream -) 1 applic TP BID [facility] Last Admin: 09/01/17 09:30 Dose: 1 appful Oxycodone HCl (Roxicodone -) 7.5 mg PO Q4H PRN PRN Reason: Pain Last Admin: 09/01/17 09:31 Dose: 7.5 mg Warfarin Sodium 5 mg/ Warfarin (Sodium 1 mg) 6 mg PO DAILY@1800 [facility] Last Admin: 08/31/17 17:09 Dose: 6 mg Zinc Sulfate (Orazinc -) 220 mg PO HS [facility] Last Admin: 08/31/17 22:16 Dose: 220 mg - Objective Vital Signs: Vital Signs Temperature 98.2 F 09/01/17 08:41 Pulse Rate 118 H 09/01/17 08:41 Respiratory Rate 20 09/01/17 08:41 Blood Pressure 107/71 09/01/17 08:41 O2 Sat by Pulse Oximetry (%) 98 08/30/17 21:00 Constitutional: Yes: Anxious HENT: Yes: Other (No thrush; no edema of lips noted on my exam but ry.) Cardiovascular: Yes: Pulse Irregular Respiratory: Yes: Diminished. No: Rales Gastrointestinal: Yes: Abdomen, Obese Genitourinary: No: Rosales Present Extremities: Yes: Other (Legs wrapped with gauze and evette bandages.) Integumentary: Yes: Other (Tinea corporis under right breat less erythematous and no odor today.) Neurological: Yes: Alert, Oriented Labs: CBC, BMP 08/31/17 06:00 08/31/17 08:30 INR, PTT INR 2.87 (0.82-1.09) H 09/01/17 06:45 Problem List - Problems (1) Cellulitis Assessment/Plan: On IV antibiotics and new C/s noted. Code(s): L03.90 - CELLULITIS, UNSPECIFIED Qualifiers: Site of cellulitis: extremity Site of cellulitis of extremity: lower extremity Laterality: unspecified laterality Qualified Code(s): L03.119 - Cellulitis of unspecified part of limb; L03.119 - Cellulitis of unspecified part of limb (2) Diarrhea Assessment/Plan: ? due to antibiotics; C. Diff study ordered. Code(s): R19.7 - DIARRHEA, UNSPECIFIED (3) Atrial fibrillation Assessment/Plan: On Coumadin; INR therapeutic. Code(s): I48.91 - UNSPECIFIED ATRIAL FIBRILLATION Qualifiers: Atrial fibrillation type: chronic Qualified Code(s): I48.2 - Chronic atrial fibrillation; I48.2 - Chronic atrial fibrillation; I48.2 - Chronic atrial fibrillation; I48.2 - Chronic atrial fibrillation (4) Lymphedema of both lower extremities Assessment/Plan: Legs elevated and wrapped. Code(s): I89.0 - LYMPHEDEMA, NOT ELSEWHERE CLASSIFIED (5) Venous stasis dermatitis Assessment/Plan: Eucerin cream to be applied today. Code(s): I87.2 - VENOUS INSUFFICIENCY (CHRONIC) (PERIPHERAL) Qualifiers: Laterality: right Qualified Code(s): I87.2 - Venous insufficiency ( chronic) (peripheral); I87.2 - Venous insufficiency (chronic) (peripheral)
[2017-09-01] MEDS ORDERED: WARFARIN NA 5 MG TABLET (UD) ONE (17:40)
[2017-09-01] MEDS ORDERED: WARFARIN NA 1 MG TABLET (FP) ONE (17:40)
[2017-09-01] MEDS: WARFARIN NA 5 MG, WARFARIN NA 1 MG PO SCH (17:41)
[2017-09-01] MEDS: ZINC SULFATE 220 MG CAPSULE (FP) PO SCH (21:51)
[2017-09-01] MEDS: ATORVASTATIN CA 10 MG TABLET (FP) PO SCH (21:51)
[2017-09-02] MEDS: dilTIAZem HCL 30 MG TABLET (FP) PO SCH ×3 (06:25→21:31)
[2017-09-02] MEDS: ACETAMINOPHEN 325 MG TABLET (FP) PO PRN ×3 (06:28→21:43)
[2017-09-02 07:58] LABS: INR 2.95 (0.82-1.09); PROTHROMBIN TIME (PATIENT) 33.2 SEC (9.98-11.88)
[2017-09-02] MEDS ORDERED: PT OWN MED DRAWER 7, Y5N ONE ×4 (09:15→23:14)
[2017-09-02] MEDS: CYANOCOBALAMIN 1,000 MCG TABLET (FP) PO SCH (10:06)
[2017-09-02] MEDS: LOSARTAN POTASSIUM 25 MG TABLET PO SCH (10:06)
[2017-09-02] MEDS: TIGECYCLINE 50 MG in DEXTROSE 5%-WATER - 100 ML IVPB SCH ×2 (10:06→21:28)
[2017-09-02] MEDS: ASCORBIC ACID 500 MG TABLET (FP) PO SCH (10:06)
[2017-09-02] MEDS: CHOLECALCIFEROL (VITAMIN D3) 1,000 UNIT TABLET (FP) PO SCH ×2 (10:06→21:30)
[2017-09-02] MEDS: METOPROLOL SUCCINATE 50 MG TAB.SR.24H (FP) PO SCH ×2 (10:06→21:29)
[2017-09-02] MEDS: MINERAL OIL/PETROLAT/WATER TOPICAL CREAM 454 GM JAR TP SCH (10:07)
[2017-09-02] MEDS: NYSTATIN 100,000 UNIT/GM TOPICAL CREAM 15 GM TUBE TP SCH ×2 (10:07→21:31)
--- NOTE | 2017-09-02 14:19 | PN ---
Physical Exam: SUBJECTIVE: Patient seen and examined at bedside. C/o excessive watery diarrhea. OBJECTIVE: Vital Signs Period Temp Pulse Resp BP Sys/William Pulse Ox Last 24 Hr 98.1 F-98.8 F 110-123 20-20 99-113/51-69 94 GENERAL: The patient is awake, alert, and fully oriented, in no acute distress. LUNGS: Breath sounds equal, clear to auscultation bilaterally, no wheezes, no crackles, no accessory muscle use. HEART: Regular rate and rhythm, S1, S2 without murmur, rub or gallop. ABDOMEN: Soft, nontender, nondistended, normoactive bowel sounds, no guarding, no rebound, no hepatosplenomegaly, no masses. EXTREMITIES: 1+ pulses, warm, well-perfused, +3 edema. Left leg excoriated and swollen. Right leg swollen. BLE weeping. NEUROLOGICAL: Cranial nerves II through XII grossly intact. Normal speech, gait steady with walker. SKIN: Warm, dry, normal turgor, no rashes or lesions noted Laboratory Results - last 24 hr 09/02/17 06:45 PT with INR 33.20 H INR 2.95 H Active Medications Generic Name Dose Route Start Last Admin Trade Name Freq PRN Reason Stop Dose Admin Acetaminophen 325 mg 08/29/17 22:15 09/02/17 06:28 Tylenol - PO 325 mg Q4H PRN Administration PAIN Ascorbic Acid 1,000 mg 08/30/17 10:00 09/02/17 10:06 Vitamin C - PO 1,000 mg DAILY [facility] Administration Atorvastatin Calcium 5 mg 08/29/17 23:01 09/01/17 21:51 Lipitor - PO 5 mg HS [facility] Administration Cholecalciferol 1,000 unit 08/29/17 22:00 09/02/17 10:06 Vitamin D3 - PO 1,000 unit BID [facility] Administration Cyanocobalamin 1,000 mcg 08/30/17 10:00 09/02/17 10:06 Vitamin B12 - PO 1,000 mcg DAILY [facility] Administration Diltiazem HCl 30 mg 08/31/17 22:15 09/02/17 06:25 Cardizem - PO 30 mg TID [facility] Administration Docusate Sodium 100 mg 08/29/17 22:15 Colace - PO BID PRN CONSTIPATION Tigecycline 50 mg/ Dextrose 100 mls @ 100 mls/hr 08/30/17 22:00 09/02/17 10:06 IVPB 100 mls/hr BID [facility] Administration Protocol Losartan Potassium 25 mg 08/30/17 10:00 09/02/17 10:06 Cozaar - PO 25 mg DAILY [facility] Administration Metoprolol Succinate 50 mg 08/29/17 22:00 09/02/17 10:06 Toprol Xl - PO 50 mg BID [facility] Administration Multi-Ingredient Lotion 1 applic 09/01/17 10:00 09/02/17 10:07 Eucerin (Large Jar) - TP 1 applic DAILY [facility] Administration Nystatin 1 applic 08/31/17 12:30 09/02/17 10:07 Mycostatin Cream - TP 1 applic BID [facility] Administration Oxycodone HCl 7.5 mg 08/29/17 22:14 09/01/17 22:09 Roxicodone - PO 7.5 mg Q4H PRN Administration Pain Warfarin Sodium 5 mg/ Warfarin 6 mg 08/29/17 22:15 09/01/17 17:41 Sodium 1 mg PO 6 mg DAILY@1800 [facility] Administration Zinc Sulfate 220 mg 08/29/17 22:15 09/01/17 21:51 Orazinc - PO 220 mg HS [facility] Administration ASSESSMENT/PLAN: A: 72yo woman with cellulitis vs dermatitis of lower extremities c/b multiple abx allergies P: #venous stasis dermatitis - Eucerin cream #cellulitis - tigecycline - wound care consult appreciated - wound cx- sensitivities pending - appreciate ID consult #[email or web address] - Therapeutic on warfarin - diltiazem - metoprolol #morbid obesity #HLD - Lipitor #HTN - diltiazem - metoprolol #Diarrhea - c-diff cx negative - Immodium 4mg now then 2mg q6h - trend electrolytes #F/E/N - NS 1 liter bolus followed by 100cc/hr - replete prn - low Na diet #PPX - therapeutic on Coumadin Dispo- Requires continued IV abx and wound care Visit type - Emergency Visit Emergency Visit: Yes ED Registration Date: 08/29/17 Care time: The patient presented to the Emergency Department on the above date and was hospitalized for further evaluation of their emergent condition. - New Patient This patient is new to me today: Yes Date on this admission: 09/02/17 - Critical Care Critical Care patient: No
[2017-09-02] MEDS ORDERED: LOPERAMIDE HCL 2 MG CAPSULE PO ONE (14:22)
[2017-09-02] MEDS: oxyCODONE HCL 5 MG TABLET PO PRN ×2 (14:32→21:44)
[2017-09-02] MEDS ORDERED: SODIUM CHLORIDE 0.9% 1000 ML INFUS.BAG IV ONE (15:09)
--- NOTE | 2017-09-02 17:22 | PN ---
Progress Note (short form) - Note Progress Note: Afebrile Right leg edema improved, wounds with serous drainage. Erythema extending up to knee area. C+S with VRE, Pseudomonas Continue wound care, elevation, PITER IV Tigacyl
[2017-09-02] MEDS ORDERED: WARFARIN NA 5 MG TABLET (UD) ONE (17:44)
[2017-09-02] MEDS ORDERED: WARFARIN NA 1 MG TABLET (FP) ONE (17:45)
[2017-09-02] MEDS: WARFARIN NA 5 MG, WARFARIN NA 1 MG PO SCH (17:46)
[2017-09-02] MEDS: SODIUM CHLORIDE 1,000 ML IV SCH (17:46)
[2017-09-02] MEDS: ATORVASTATIN CA 10 MG TABLET (FP) PO SCH (21:29)
[2017-09-02] MEDS: ZINC SULFATE 220 MG CAPSULE (FP) PO SCH (21:30)
[2017-09-03] MEDS: dilTIAZem HCL 30 MG TABLET (FP) PO SCH ×3 (06:18→22:56)
[2017-09-03] MEDS ORDERED: PT OWN MED DRAWER 7, Y5N ONE ×2 (08:53→20:49)
[2017-09-03] MEDS: TIGECYCLINE 50 MG in DEXTROSE 5%-WATER - 100 ML IVPB SCH ×2 (09:52→22:56)
[2017-09-03] MEDS: LOSARTAN POTASSIUM 25 MG TABLET PO SCH (11:05)
[2017-09-03] MEDS: METOPROLOL SUCCINATE 50 MG TAB.SR.24H (FP) PO SCH ×2 (11:06→22:54)
[2017-09-03] MEDS: CYANOCOBALAMIN 1,000 MCG TABLET (FP) PO SCH (11:06)
[2017-09-03] MEDS: ASCORBIC ACID 500 MG TABLET (FP) PO SCH (11:06)
[2017-09-03] MEDS: CHOLECALCIFEROL (VITAMIN D3) 1,000 UNIT TABLET (FP) PO SCH ×2 (11:06→22:55)
[2017-09-03] MEDS: MINERAL OIL/PETROLAT/WATER TOPICAL CREAM 454 GM JAR TP SCH (11:06)
[2017-09-03] MEDS: NYSTATIN 100,000 UNIT/GM TOPICAL CREAM 15 GM TUBE TP SCH ×2 (11:07→22:56)
[2017-09-03] MEDS: oxyCODONE HCL 5 MG TABLET PO PRN ×2 (12:03→18:54)
[2017-09-03] MEDS: ACETAMINOPHEN 325 MG TABLET (FP) PO PRN (12:04)
--- NOTE | 2017-09-03 15:37 | PN ---
Progress Note, Physician History of Present Illness: Awake, alert C/O LE discomfort No fever/ chills Tolerating antibiotic - Current Medication List Current Medications: Active Medications Acetaminophen (Tylenol -) 325 mg PO Q4H PRN PRN Reason: PAIN Last Admin: 09/03/17 12:04 Dose: 325 mg Ascorbic Acid (Vitamin C -) 1,000 mg PO DAILY [facility] Last Admin: 09/03/17 11:06 Dose: 1,000 mg Atorvastatin Calcium (Lipitor -) 5 mg PO HS [facility] Last Admin: 09/02/17 21:29 Dose: 5 mg Cholecalciferol (Vitamin D3 -) 1,000 unit PO BID [facility] Last Admin: 09/03/17 11:06 Dose: 1,000 unit Cyanocobalamin (Vitamin B12 -) 1,000 mcg PO DAILY [facility] Last Admin: 09/03/17 11:06 Dose: 1,000 mcg Diltiazem HCl (Cardizem -) 30 mg PO TID [facility] Last Admin: 09/03/17 15:07 Dose: 30 mg Docusate Sodium (Colace -) 100 mg PO BID PRN PRN Reason: CONSTIPATION Tigecycline 50 mg/ Dextrose 100 mls @ 100 mls/hr IVPB BID [facility] PRN Reason: Protocol Last Admin: 09/03/17 09:52 Dose: 100 mls/hr Sodium Chloride (Normal Saline -) 1,000 mls @ 100 mls/hr IV ASDIR [facility] Last Admin: 09/02/17 17:46 Dose: 100 mls/hr Loperamide HCl (Imodium -) 2 mg PO Q8H PRN PRN Reason: DIARRHEA Losartan Potassium (Cozaar -) 25 mg PO DAILY [facility] Last Admin: 09/03/17 11:05 Dose: 25 mg Metoprolol Succinate (Toprol Xl -) 50 mg PO BID [facility] Last Admin: 09/03/17 11:06 Dose: 50 mg Multi-Ingredient Lotion (Eucerin (Large Jar) -) 1 applic TP DAILY [facility] Last Admin: 09/03/17 11:06 Dose: 1 applic Nystatin (Mycostatin Cream -) 1 applic TP BID [facility] Last Admin: 09/03/17 11:07 Dose: 1 applic Oxycodone HCl (Roxicodone -) 7.5 mg PO Q4H PRN PRN Reason: Pain Last Admin: 09/03/17 12:03 Dose: 7.5 mg Warfarin Sodium 5 mg/ Warfarin (Sodium 1 mg) 6 mg PO DAILY@1800 [facility] Last Admin: 09/02/17 17:46 Dose: 6 mg Zinc Sulfate (Orazinc -) 220 mg PO HS [facility] Last Admin: 09/02/17 21:30 Dose: 220 mg - Objective Vital Signs: Vital Signs Temperature 97.9 F 09/03/17 14:24 Pulse Rate 90 09/03/17 14:24 Respiratory Rate 16 09/03/17 14:24 Blood Pressure 118/78 09/03/17 14:24 O2 Sat by Pulse Oximetry (%) 95 09/02/17 21:00 Constitutional: Yes: No Distress Eyes: Yes: Conjunctiva Clear Cardiovascular: Yes: Regular Rate and Rhythm, S1, S2 Respiratory: Yes: CTA Bilaterally, Diminished Gastrointestinal: Yes: Normal Bowel Sounds, Soft, Abdomen, Obese. No: Tenderness Extremities: Yes: Other (+ LE edema Erythema LE bilaterally R > L + serous drainage R LE) Edema: Yes Labs: CBC, BMP 08/31/17 06:00 08/31/17 08:30 INR, PTT INR 2.95 (0.82-1.09) H 09/02/17 06:45 Assessment/Plan Recurrent bilateral LE cellulitis Multiple antibiotic allergies Continue Tygacil Local wound care
--- NOTE | 2017-09-03 16:05 | PN ---
Progress Note, Physician Chief Complaint: Mrs Torres says her legs are not improved. Still with pain. No cp, sob, n/v. - Current Medication List Current Medications: Active Medications Acetaminophen (Tylenol -) 325 mg PO Q4H PRN PRN Reason: PAIN Last Admin: 09/03/17 12:04 Dose: 325 mg Ascorbic Acid (Vitamin C -) 1,000 mg PO DAILY [facility] Last Admin: 09/03/17 11:06 Dose: 1,000 mg Atorvastatin Calcium (Lipitor -) 5 mg PO HS [facility] Last Admin: 09/02/17 21:29 Dose: 5 mg Cholecalciferol (Vitamin D3 -) 1,000 unit PO BID [facility] Last Admin: 09/03/17 11:06 Dose: 1,000 unit Cyanocobalamin (Vitamin B12 -) 1,000 mcg PO DAILY [facility] Last Admin: 09/03/17 11:06 Dose: 1,000 mcg Diltiazem HCl (Cardizem -) 30 mg PO TID [facility] Last Admin: 09/03/17 15:07 Dose: 30 mg Docusate Sodium (Colace -) 100 mg PO BID PRN PRN Reason: CONSTIPATION Tigecycline 50 mg/ Dextrose 100 mls @ 100 mls/hr IVPB BID [facility] PRN Reason: Protocol Last Admin: 09/03/17 09:52 Dose: 100 mls/hr Sodium Chloride (Normal Saline -) 1,000 mls @ 100 mls/hr IV ASDIR [facility] Last Admin: 09/02/17 17:46 Dose: 100 mls/hr Loperamide HCl (Imodium -) 2 mg PO Q8H PRN PRN Reason: DIARRHEA Losartan Potassium (Cozaar -) 25 mg PO DAILY [facility] Last Admin: 09/03/17 11:05 Dose: 25 mg Metoprolol Succinate (Toprol Xl -) 50 mg PO BID [facility] Last Admin: 09/03/17 11:06 Dose: 50 mg Multi-Ingredient Lotion (Eucerin (Large Jar) -) 1 applic TP DAILY [facility] Last Admin: 09/03/17 11:06 Dose: 1 applic Nystatin (Mycostatin Cream -) 1 applic TP BID [facility] Last Admin: 09/03/17 11:07 Dose: 1 applic Oxycodone HCl (Roxicodone -) 7.5 mg PO Q4H PRN PRN Reason: Pain Last Admin: 09/03/17 12:03 Dose: 7.5 mg Warfarin Sodium 5 mg/ Warfarin (Sodium 1 mg) 6 mg PO DAILY@1800 [facility] Last Admin: 09/02/17 17:46 Dose: 6 mg Zinc Sulfate (Orazinc -) 220 mg PO HS [facility] Last Admin: 09/02/17 21:30 Dose: 220 mg - Objective Vital Signs: Vital Signs Temperature 36.6 C 09/03/17 14:24 Pulse Rate 90 09/03/17 14:24 Respiratory Rate 16 09/03/17 14:24 Blood Pressure 118/78 09/03/17 14:24 O2 Sat by Pulse Oximetry (%) 95 09/02/17 21:00 Constitutional: Yes: No Distress, Calm, Obese Cardiovascular: Yes: Regular Rate and Rhythm. No: Gallop, Murmur, Rub Respiratory: Yes: Regular, CTA Bilaterally. No: Rales, Rhonchi, Wheezes Gastrointestinal: Yes: Normal Bowel Sounds, Soft. No: Distention, Tenderness Extremities: Yes: Erythema Edema: Yes Edema: LLE: 3+, RLE: 3+ Labs: CBC, BMP 08/31/17 06:00 08/31/17 08:30 INR, PTT INR 2.95 (0.82-1.09) H 09/02/17 06:45 Problem List - Problems (1) Cellulitis Code(s): L03.90 - CELLULITIS, UNSPECIFIED Qualifiers: Site of cellulitis: extremity Site of cellulitis of extremity: lower extremity Laterality: unspecified laterality Qualified Code(s): L03.119 - Cellulitis of unspecified part of limb; L03.119 - Cellulitis of unspecified part of limb (2) Atrial fibrillation Code(s): I48.91 - UNSPECIFIED ATRIAL FIBRILLATION Qualifiers: Atrial fibrillation type: chronic Qualified Code(s): I48.2 - Chronic atrial fibrillation; I48.2 - Chronic atrial fibrillation; I48.2 - Chronic atrial fibrillation; I48.2 - Chronic atrial fibrillation (3) Lymphedema of both lower extremities Code(s): I89.0 - LYMPHEDEMA, NOT ELSEWHERE CLASSIFIED (4) Obesity Code(s): E66.9 - OBESITY, UNSPECIFIED (5) HTN (hypertension) Code(s): I10 - ESSENTIAL (PRIMARY) HYPERTENSION (6) HLD (hyperlipidemia) Code(s): E78.5 - HYPERLIPIDEMIA, UNSPECIFIED Assessment/Plan (1) Cellulitis Assessment/Plan: -appreciate ID, vascular surgery, and dermatology assistance -wound cultures reviewed -continue tigecycline -continue wound care per Dr Gonzalez -discussing duration of antibiotics with ID Code(s): L03.90 - CELLULITIS, UNSPECIFIED Qualifiers: Site of cellulitis: extremity Site of cellulitis of extremity: lower extremity Laterality: unspecified laterality Qualified Code(s): L03.119 - Cellulitis of unspecified part of limb; L03.119 - Cellulitis of unspecified part of limb (2) Atrial fibrillation Assessment/Plan: -rate controlled -INR therapeutic, continue coumadin Code(s): I48.91 - UNSPECIFIED ATRIAL FIBRILLATION Qualifiers: Atrial fibrillation type: chronic Qualified Code(s): I48.2 - Chronic atrial fibrillation; I48.2 - Chronic atrial fibrillation; I48.2 - Chronic atrial fibrillation; I48.2 - Chronic atrial fibrillation (3) Lymphedema of both lower extremities Assessment/Plan: -chronic Code(s): I89.0 - LYMPHEDEMA, NOT ELSEWHERE CLASSIFIED (4) Obesity Assessment/Plan: -outpatient weight loss program per Dr Boykin Code(s): E66.9 - OBESITY, UNSPECIFIED (5) HTN (hypertension) Assessment/Plan: -well controlled -continue current regimen Code(s): I10 - ESSENTIAL (PRIMARY) HYPERTENSION (6) HLD (hyperlipidemia) Assessment/Plan: -continue statin Code(s): E78.5 - HYPERLIPIDEMIA, UNSPECIFIED
[2017-09-03 17:24] LABS: INR 3.17 (0.82-1.09); PROTHROMBIN TIME (PATIENT) 34.9 SEC (9.98-11.88)
[2017-09-03] MEDS: SODIUM CHLORIDE 1,000 ML IV SCH (18:38)
[2017-09-03] MEDS: WARFARIN NA 5 MG, WARFARIN NA 1 MG PO SCH (19:01)
[2017-09-03] MEDS: ATORVASTATIN CA 10 MG TABLET (FP) PO SCH (22:54)
[2017-09-03] MEDS: ZINC SULFATE 220 MG CAPSULE (FP) PO SCH (22:54)
[2017-09-04] MEDS: dilTIAZem HCL 30 MG TABLET (FP) PO SCH ×3 (07:02→21:35)
[2017-09-04 07:21] LABS: BASOPHIL 0.4 % (0-2.0); MCHC 31.4 g/dl (32.0-36.0); MEAN CELL VOLUME 85.8 fl (80-96); MEAN PLT VOLUME 7.4 fl (7.5-11.1); NEUTROPHILS 65.9 % (42.8-82.8); PLATELET COUNT 292 K/MM3 (134-434); WHITE BLOOD COUNT 6.3 K/mm3 (4.0-10.0)
[2017-09-04 07:30] LABS: INR 2.84 (0.82-1.09); PROTHROMBIN TIME (PATIENT) 31.2 SEC (9.98-11.88)
[2017-09-04 08:21] LABS: ANION GAP 9 (8-16); CALCIUM 7.7 mg/dL (8.5-10.1); CO2 27 mmol/L (21-32); CREATININE 0.4 mg/dL (0.55-1.02); GLUCOSE,RANDOM 72 mg/dL (74-106); MAGNESIUM 1.8 mg/dL (1.8-2.4); PHOSPHOROUS 3.4 mg/dL (2.5-4.9)
[2017-09-04] MEDS: oxyCODONE HCL 5 MG TABLET PO PRN ×2 (08:30→18:55)
[2017-09-04] MEDS: ACETAMINOPHEN 325 MG TABLET (FP) PO PRN ×2 (08:31→18:56)
[2017-09-04] MEDS ORDERED: PT OWN MED DRAWER 7, Y5N ONE ×2 (10:32→20:37)
[2017-09-04] MEDS: TIGECYCLINE 50 MG in DEXTROSE 5%-WATER - 100 ML IVPB SCH ×2 (10:59→21:23)
[2017-09-04] MEDS: CYANOCOBALAMIN 1,000 MCG TABLET (FP) PO SCH (11:00)
[2017-09-04] MEDS: METOPROLOL SUCCINATE 50 MG TAB.SR.24H (FP) PO SCH ×2 (11:00→21:35)
[2017-09-04] MEDS: LOSARTAN POTASSIUM 25 MG TABLET PO SCH (11:00)
[2017-09-04] MEDS: ASCORBIC ACID 500 MG TABLET (FP) PO SCH (11:00)
[2017-09-04] MEDS: NYSTATIN 100,000 UNIT/GM TOPICAL CREAM 15 GM TUBE TP SCH (11:00)
[2017-09-04] MEDS: CHOLECALCIFEROL (VITAMIN D3) 1,000 UNIT TABLET (FP) PO SCH ×2 (11:00→21:23)
[2017-09-04] MEDS: MINERAL OIL/PETROLAT/WATER TOPICAL CREAM 454 GM JAR TP SCH (11:01)
--- NOTE | 2017-09-04 12:14 | PN ---
Progress Note, Physician Chief Complaint: Mrs Torres complains of leg pain. No cp, sob, n/v. - Current Medication List Current Medications: Active Medications Acetaminophen (Tylenol -) 325 mg PO Q4H PRN PRN Reason: PAIN Last Admin: 09/04/17 08:31 Dose: 325 mg Ascorbic Acid (Vitamin C -) 1,000 mg PO DAILY [facility] Last Admin: 09/04/17 11:00 Dose: 1,000 mg Atorvastatin Calcium (Lipitor -) 5 mg PO HS [facility] Last Admin: 09/03/17 22:54 Dose: 5 mg Cholecalciferol (Vitamin D3 -) 1,000 unit PO BID [facility] Last Admin: 09/04/17 11:00 Dose: 1,000 unit Cyanocobalamin (Vitamin B12 -) 1,000 mcg PO DAILY [facility] Last Admin: 09/04/17 11:00 Dose: 1,000 mcg Diltiazem HCl (Cardizem -) 30 mg PO TID [facility] Last Admin: 09/04/17 07:02 Dose: 30 mg Docusate Sodium (Colace -) 100 mg PO BID PRN PRN Reason: CONSTIPATION Tigecycline 50 mg/ Dextrose 100 mls @ 100 mls/hr IVPB BID [facility] PRN Reason: Protocol Last Admin: 09/04/17 10:59 Dose: 100 mls/hr Loperamide HCl (Imodium -) 2 mg PO Q8H PRN PRN Reason: DIARRHEA Losartan Potassium (Cozaar -) 25 mg PO DAILY [facility] Last Admin: 09/04/17 11:00 Dose: 25 mg Metoprolol Succinate (Toprol Xl -) 50 mg PO BID [facility] Last Admin: 09/04/17 11:00 Dose: 50 mg Multi-Ingredient Lotion (Eucerin (Large Jar) -) 1 applic TP DAILY [facility] Last Admin: 09/04/17 11:01 Dose: 1 applic Mupirocin (Bactroban 2% Ointment -) 1 applic TP BID [facility] Oxycodone HCl (Roxicodone -) 7.5 mg PO Q4H PRN PRN Reason: Pain Last Admin: 09/04/17 08:30 Dose: 7.5 mg Warfarin Sodium 5 mg/ Warfarin (Sodium 1 mg) 6 mg PO DAILY@1800 [facility] Last Admin: 09/03/17 19:01 Dose: Not Given Zinc Sulfate (Orazinc -) 220 mg PO HS [facility] Last Admin: 09/03/17 22:54 Dose: 220 mg - Objective Vital Signs: Vital Signs Temperature 37.1 C 09/04/17 10:00 Pulse Rate 92 H 09/04/17 10:00 Respiratory Rate 20 09/04/17 10:00 Blood Pressure 110/49 09/04/17 10:00 O2 Sat by Pulse Oximetry (%) 96 09/04/17 09:00 Constitutional: Yes: No Distress, Calm, Obese Cardiovascular: Yes: Pulse Irregular. No: Tachycardia, Gallop, Murmur, Rub Respiratory: Yes: Regular, CTA Bilaterally. No: Rales, Rhonchi, Wheezes Gastrointestinal: Yes: Normal Bowel Sounds, Soft. No: Distention, Tenderness Extremities: Yes: Erythema Edema: Yes Edema: LLE: 2+, RLE: 2+ Labs: CBC, BMP 09/04/17 05:35 09/04/17 05:35 INR, PTT INR 2.84 (0.82-1.09) H 09/04/17 05:35 Problem List - Problems (1) Cellulitis Code(s): L03.90 - CELLULITIS, UNSPECIFIED Qualifiers: Site of cellulitis: extremity Site of cellulitis of extremity: lower extremity Laterality: unspecified laterality Qualified Code(s): L03.119 - Cellulitis of unspecified part of limb; L03.119 - Cellulitis of unspecified part of limb (2) Atrial fibrillation Code(s): I48.91 - UNSPECIFIED ATRIAL FIBRILLATION Qualifiers: Atrial fibrillation type: chronic Qualified Code(s): I48.2 - Chronic atrial fibrillation; I48.2 - Chronic atrial fibrillation; I48.2 - Chronic atrial fibrillation; I48.2 - Chronic atrial fibrillation (3) Lymphedema of both lower extremities Code(s): I89.0 - LYMPHEDEMA, NOT ELSEWHERE CLASSIFIED (4) Obesity Code(s): E66.9 - OBESITY, UNSPECIFIED (5) HTN (hypertension) Code(s): I10 - ESSENTIAL (PRIMARY) HYPERTENSION (6) HLD (hyperlipidemia) Code(s): E78.5 - HYPERLIPIDEMIA, UNSPECIFIED Assessment/Plan (1) Cellulitis Assessment/Plan: -appreciate ID, vascular surgery, and dermatology assistance -wound cultures reviewed -continue tigecycline -continue wound care per Dr Gonzalez -discharge planning when tigecycline finishes Code(s): L03.90 - CELLULITIS, UNSPECIFIED Qualifiers: Site of cellulitis: extremity Site of cellulitis of extremity: lower extremity Laterality: unspecified laterality Qualified Code(s): L03.119 - Cellulitis of unspecified part of limb; L03.119 - Cellulitis of unspecified part of limb (2) Atrial fibrillation Assessment/Plan: -rate controlled -INR therapeutic, continue coumadin Code(s): I48.91 - UNSPECIFIED ATRIAL FIBRILLATION Qualifiers: Atrial fibrillation type: chronic Qualified Code(s): I48.2 - Chronic atrial fibrillation; I48.2 - Chronic atrial fibrillation; I48.2 - Chronic atrial fibrillation; I48.2 - Chronic atrial fibrillation (3) Lymphedema of both lower extremities Assessment/Plan: -chronic Code(s): I89.0 - LYMPHEDEMA, NOT ELSEWHERE CLASSIFIED (4) Obesity Assessment/Plan: -outpatient weight loss program per Dr Boykin -consider SNF for short term rehab Code(s): E66.9 - OBESITY, UNSPECIFIED (5) HTN (hypertension) Assessment/Plan: -well controlled -continue current regimen Code(s): I10 - ESSENTIAL (PRIMARY) HYPERTENSION (6) HLD (hyperlipidemia) Assessment/Plan: -continue statin Code(s): E78.5 - HYPERLIPIDEMIA, UNSPECIFIED Dispo -had long discussion with patient about disposition -would benefit from short term rehab as has significant difficulty walking -ultimately will need aggressive weight loss with combination of diet and exercise program -discussing with CM/SW about possibilities
[2017-09-04] MEDS: MUPIROCIN 2% TOPICAL OINTMENT 22 GM TUBE TP SCH ×2 (12:49→21:35)
[2017-09-04] MEDS ORDERED: WARFARIN NA 5 MG TABLET (UD) ONE (17:30)
[2017-09-04] MEDS ORDERED: WARFARIN NA 1 MG TABLET (FP) ONE (17:30)
[2017-09-04] MEDS: WARFARIN NA 5 MG, WARFARIN NA 1 MG PO SCH (17:54)
[2017-09-04] MEDS: ATORVASTATIN CA 10 MG TABLET (FP) PO SCH (21:22)
[2017-09-04] MEDS: ZINC SULFATE 220 MG CAPSULE (FP) PO SCH (21:23)
[2017-09-04] MEDS: LOPERAMIDE HCL 2 MG CAPSULE PO PRN (21:35)
[2017-09-05] MEDS: dilTIAZem HCL 30 MG TABLET (FP) PO SCH ×3 (06:17→21:22)
[2017-09-05 08:42] LABS: BASOPHIL 0.7 % (0-2.0); EOSINOPHIL 2.2 % (0-4.5); MCH 27.2 pg (25.7-33.7); MCHC 31.8 g/dl (32.0-36.0); MEAN CELL VOLUME 85.5 fl (80-96); MEAN PLT VOLUME 7.2 fl (7.5-11.1); NEUTROPHILS 71.6 % (42.8-82.8); PLATELET COUNT 303 K/MM3 (134-434); RDW 15.8 % (11.6-15.6); WHITE BLOOD COUNT 6.2 K/mm3 (4.0-10.0)
[2017-09-05] MEDS ORDERED: PT OWN MED DRAWER 7, Y5N ONE ×3 (09:08→20:38)
[2017-09-05 09:13] LABS: INR 2.51 (0.82-1.09); PROTHROMBIN TIME (PATIENT) 28.4 SEC (9.98-11.88)
[2017-09-05 10:06] LABS: ANION GAP 7 (8-16); CO2 31 mmol/L (21-32); CREATININE 0.5 mg/dL (0.55-1.02); GLUCOSE,RANDOM 80 mg/dL (74-106); MAGNESIUM 1.9 mg/dL (1.8-2.4); PHOSPHOROUS 3.7 mg/dL (2.5-4.9)
[2017-09-05] MEDS: CHOLECALCIFEROL (VITAMIN D3) 1,000 UNIT TABLET (FP) PO SCH ×2 (11:00→21:22)
[2017-09-05] MEDS: ASCORBIC ACID 500 MG TABLET (FP) PO SCH (11:00)
[2017-09-05] MEDS: TIGECYCLINE 50 MG in DEXTROSE 5%-WATER - 100 ML IVPB SCH ×2 (11:00→21:22)
[2017-09-05] MEDS: LOSARTAN POTASSIUM 25 MG TABLET PO SCH (11:01)
[2017-09-05] MEDS: METOPROLOL SUCCINATE 50 MG TAB.SR.24H (FP) PO SCH ×2 (11:01→21:22)
[2017-09-05] MEDS: CYANOCOBALAMIN 1,000 MCG TABLET (FP) PO SCH (11:01)
[2017-09-05] MEDS: oxyCODONE HCL 5 MG TABLET PO PRN ×3 (11:11→21:31)
[2017-09-05] MEDS: ACETAMINOPHEN 325 MG TABLET (FP) PO PRN ×3 (11:13→21:33)
[2017-09-05] MEDS: LOPERAMIDE HCL 2 MG CAPSULE PO PRN (12:29)
[2017-09-05] MEDS: MINERAL OIL/PETROLAT/WATER TOPICAL CREAM 454 GM JAR TP SCH (12:29)
--- NOTE | 2017-09-05 13:04 | PN ---
Progress Note, Physician Chief Complaint: Mrs Torres complains of vaginal irritation and dryness. 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 No cp, sob, n/v - Current Medication List Current Medications: Active Medications Acetaminophen (Tylenol -) 325 mg PO Q4H PRN PRN Reason: PAIN Last Admin: 09/05/17 11:13 Dose: 325 mg Ascorbic Acid (Vitamin C -) 1,000 mg PO DAILY [facility] Last Admin: 09/05/17 11:00 Dose: 1,000 mg Atorvastatin Calcium (Lipitor -) 5 mg PO HS [facility] Last Admin: 09/04/17 21:22 Dose: 5 mg Cholecalciferol (Vitamin D3 -) 1,000 unit PO BID [facility] Last Admin: 09/05/17 11:00 Dose: 1,000 unit Cyanocobalamin (Vitamin B12 -) 1,000 mcg PO DAILY [facility] Last Admin: 09/05/17 11:01 Dose: 1,000 mcg Diltiazem HCl (Cardizem -) 30 mg PO TID [facility] Last Admin: 09/05/17 06:17 Dose: 30 mg Docusate Sodium (Colace -) 100 mg PO BID PRN PRN Reason: CONSTIPATION Tigecycline 50 mg/ Dextrose 100 mls @ 100 mls/hr IVPB BID [facility] PRN Reason: Protocol Last Admin: 09/05/17 11:00 Dose: 100 mls/hr Loperamide HCl (Imodium -) 2 mg PO Q8H PRN PRN Reason: DIARRHEA Last Admin: 09/05/17 12:29 Dose: 2 mg Losartan Potassium (Cozaar -) 25 mg PO DAILY [facility] Last Admin: 09/05/17 11:01 Dose: 25 mg Metoprolol Succinate (Toprol Xl -) 50 mg PO BID [facility] Last Admin: 09/05/17 11:01 Dose: 50 mg Multi-Ingredient Lotion (Eucerin (Large Jar) -) 1 applic TP DAILY [facility] Last Admin: 09/05/17 12:29 Dose: 1 applic Mupirocin (Bactroban 2% Ointment -) 1 applic TP BID [facility] Last Admin: 09/04/17 21:35 Dose: 1 applic Oxycodone HCl (Roxicodone -) 7.5 mg PO Q4H PRN PRN Reason: Pain Last Admin: 09/05/17 11:11 Dose: 7.5 mg Warfarin Sodium 5 mg/ Warfarin (Sodium 1 mg) 6 mg PO DAILY@1800 [facility] Last Admin: 09/04/17 17:54 Dose: 6 mg Zinc Sulfate (Orazinc -) 220 mg PO HS [facility] Last Admin: 09/04/17 21:23 Dose: 220 mg - Objective Vital Signs: Vital Signs Temperature 36.6 C 09/05/17 06:01 Pulse Rate 106 H 09/05/17 06:01 Respiratory Rate 20 09/05/17 06:01 Blood Pressure 114/65 09/05/17 06:01 O2 Sat by Pulse Oximetry (%) 95 09/04/17 21:00 Constitutional: Yes: No Distress, Calm, Obese Cardiovascular: Yes: Regular Rate and Rhythm. No: Gallop, Murmur, Rub Respiratory: Yes: Regular, CTA Bilaterally. No: Rales, Rhonchi, Wheezes Gastrointestinal: Yes: Normal Bowel Sounds, Soft. No: Distention, Tenderness Extremities: Yes: Erythema Edema: Yes Edema: LLE: 2+, RLE: 2+ Labs: CBC, BMP 09/05/17 07:50 09/05/17 07:50 INR, PTT INR 2.51 (0.82-1.09) H 09/05/17 07:50 Problem List - Problems (1) Cellulitis Code(s): L03.90 - CELLULITIS, UNSPECIFIED Qualifiers: Site of cellulitis: extremity Site of cellulitis of extremity: lower extremity Laterality: unspecified laterality Qualified Code(s): L03.119 - Cellulitis of unspecified part of limb; L03.119 - Cellulitis of unspecified part of limb (2) Atrial fibrillation Code(s): I48.91 - UNSPECIFIED ATRIAL FIBRILLATION Qualifiers: Atrial fibrillation type: chronic Qualified Code(s): I48.2 - Chronic atrial fibrillation; I48.2 - Chronic atrial fibrillation; I48.2 - Chronic atrial fibrillation; I48.2 - Chronic atrial fibrillation (3) Lymphedema of both lower extremities Code(s): I89.0 - LYMPHEDEMA, NOT ELSEWHERE CLASSIFIED (4) Obesity Code(s): E66.9 - OBESITY, UNSPECIFIED (5) HTN (hypertension) Code(s): I10 - ESSENTIAL (PRIMARY) HYPERTENSION (6) HLD (hyperlipidemia) Code(s): E78.5 - HYPERLIPIDEMIA, UNSPECIFIED (7) Vaginal irritation Code(s): N89.8 - OTHER SPECIFIED NONINFLAMMATORY DISORDERS OF VAGINA Assessment/Plan (1) Cellulitis Assessment/Plan: -appreciate ID, vascular surgery, and dermatology assistance -wound cultures reviewed -continue tigecycline -continue wound care per Dr Gonzalez -discharge planning when tigecycline finishes Code(s): L03.90 - CELLULITIS, UNSPECIFIED Qualifiers: Site of cellulitis: extremity Site of cellulitis of extremity: lower extremity Laterality: unspecified laterality Qualified Code(s): L03.119 - Cellulitis of unspecified part of limb; L03.119 - Cellulitis of unspecified part of limb (2) Atrial fibrillation Assessment/Plan: -rate controlled -INR therapeutic, continue coumadin Code(s): I48.91 - UNSPECIFIED ATRIAL FIBRILLATION Qualifiers: Atrial fibrillation type: chronic Qualified Code(s): I48.2 - Chronic atrial fibrillation; I48.2 - Chronic atrial fibrillation; I48.2 - Chronic atrial fibrillation; I48.2 - Chronic atrial fibrillation (3) Lymphedema of both lower extremities Assessment/Plan: -chronic Code(s): I89.0 - LYMPHEDEMA, NOT ELSEWHERE CLASSIFIED (4) Obesity Assessment/Plan: -outpatient weight loss program per Dr Boykin -consider SNF for short term rehab Code(s): E66.9 - OBESITY, UNSPECIFIED (5) HTN (hypertension) Assessment/Plan: -well controlled -continue current regimen Code(s): I10 - ESSENTIAL (PRIMARY) HYPERTENSION (6) HLD (hyperlipidemia) Assessment/Plan: -continue statin Code(s): E78.5 - HYPERLIPIDEMIA, UNSPECIFIED (7) Vaginal irritation -patient requesting gynecology consult -will place Dispo CM/SW to see for options about dispo planning
[2017-09-05] MEDS ORDERED: WARFARIN NA 5 MG TABLET (UD) ONE (17:02)
[2017-09-05] MEDS ORDERED: WARFARIN NA 1 MG TABLET (FP) ONE (17:02)
[2017-09-05] MEDS: WARFARIN NA 5 MG, WARFARIN NA 1 MG PO SCH (17:09)
[2017-09-05] MEDS: MUPIROCIN 2% TOPICAL OINTMENT 22 GM TUBE TP SCH ×2 (17:59→21:22)
[2017-09-05] MEDS: ATORVASTATIN CA 10 MG TABLET (FP) PO SCH (21:21)
[2017-09-05] MEDS: ZINC SULFATE 220 MG CAPSULE (FP) PO SCH (21:22)
[2017-09-06] MEDS: dilTIAZem HCL 30 MG TABLET (FP) PO SCH ×3 (06:22→21:50)
[2017-09-06] MEDS: oxyCODONE HCL 5 MG TABLET PO PRN ×3 (07:54→21:47)
[2017-09-06] MEDS: ACETAMINOPHEN 325 MG TABLET (FP) PO PRN ×3 (07:55→21:48)
[2017-09-06 08:39] LABS: INR 2.45 (0.82-1.09); PROTHROMBIN TIME (PATIENT) 27.7 SEC (9.98-11.88)
--- NOTE | 2017-09-06 08:56 | PN ---
Progress Note (short form) - Note Progress Note: Both legs with generalized dermatitis from foot to knees. Wounds closing, less drainage Start Ute's solution soaks prior to redressing legs.
[2017-09-06] MEDS ORDERED: PT OWN MED DRAWER 7, Y5N ONE ×2 (09:49→20:36)
[2017-09-06] MEDS: ASCORBIC ACID 500 MG TABLET (FP) PO SCH (10:29)
[2017-09-06] MEDS: TIGECYCLINE 50 MG in DEXTROSE 5%-WATER - 100 ML IVPB SCH ×2 (10:29→21:50)
[2017-09-06] MEDS: CHOLECALCIFEROL (VITAMIN D3) 1,000 UNIT TABLET (FP) PO SCH ×2 (10:29→21:50)
[2017-09-06] MEDS: METOPROLOL SUCCINATE 50 MG TAB.SR.24H (FP) PO SCH ×2 (10:30→21:49)
[2017-09-06] MEDS: LOSARTAN POTASSIUM 25 MG TABLET PO SCH (10:30)
[2017-09-06] MEDS: CYANOCOBALAMIN 1,000 MCG TABLET (FP) PO SCH (10:30)
[2017-09-06] MEDS: ALUMINUM ACETATE TP SCH (10:30)
[2017-09-06] MEDS: MUPIROCIN 2% TOPICAL OINTMENT 22 GM TUBE TP SCH ×2 (10:48→21:51)
[2017-09-06] MEDS: MINERAL OIL/PETROLAT/WATER TOPICAL CREAM 454 GM JAR TP SCH (10:49)
--- NOTE | 2017-09-06 12:04 | PN ---
Progress Note, Physician Chief Complaint: Mrs Torres is without new complaints. 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 Still with pain in her legs. No cp, sob, n/v. - Current Medication List Current Medications: Active Medications Acetaminophen (Tylenol -) 325 mg PO Q4H PRN PRN Reason: PAIN Last Admin: 09/06/17 07:55 Dose: 325 mg Aluminum Acetate (Burow's Solution -) 1 applic TP [facility]TDICT [facility] Last Admin: 09/06/17 10:30 Dose: 1 applic Ascorbic Acid (Vitamin C -) 1,000 mg PO DAILY [facility] Last Admin: 09/06/17 10:29 Dose: 1,000 mg Atorvastatin Calcium (Lipitor -) 5 mg PO HS [facility] Last Admin: 09/05/17 21:21 Dose: 5 mg Cholecalciferol (Vitamin D3 -) 1,000 unit PO BID [facility] Last Admin: 09/06/17 10:29 Dose: 1,000 unit Cyanocobalamin (Vitamin B12 -) 1,000 mcg PO DAILY [facility] Last Admin: 09/06/17 10:30 Dose: 1,000 mcg Diltiazem HCl (Cardizem -) 30 mg PO TID [facility] Last Admin: 09/06/17 06:22 Dose: 30 mg Docusate Sodium (Colace -) 100 mg PO BID PRN PRN Reason: CONSTIPATION Tigecycline 50 mg/ Dextrose 100 mls @ 100 mls/hr IVPB BID [facility] PRN Reason: Protocol Last Admin: 09/06/17 10:29 Dose: 100 mls/hr Loperamide HCl (Imodium -) 2 mg PO Q8H PRN PRN Reason: DIARRHEA Last Admin: 09/05/17 12:29 Dose: 2 mg Losartan Potassium (Cozaar -) 25 mg PO DAILY [facility] Last Admin: 09/06/17 10:30 Dose: 25 mg Metoprolol Succinate (Toprol Xl -) 50 mg PO BID [facility] Last Admin: 09/06/17 10:30 Dose: 50 mg Multi-Ingredient Lotion (Eucerin (Large Jar) -) 1 applic TP DAILY [facility] Last Admin: 09/06/17 10:49 Dose: 1 applic Mupirocin (Bactroban 2% Ointment -) 1 applic TP BID [facility] Last Admin: 09/06/17 10:48 Dose: 1 applic Oxycodone HCl (Roxicodone -) 7.5 mg PO Q4H PRN PRN Reason: Pain Last Admin: 09/06/17 07:54 Dose: 7.5 mg Warfarin Sodium 5 mg/ Warfarin (Sodium 1 mg) 6 mg PO DAILY@1800 [facility] Last Admin: 09/05/17 17:09 Dose: 6 mg Zinc Sulfate (Orazinc -) 220 mg PO HS [facility] Last Admin: 09/05/17 21:22 Dose: 220 mg - Objective Vital Signs: Vital Signs Temperature 36.7 C 09/06/17 06:00 Pulse Rate 118 H 09/06/17 06:00 Respiratory Rate 19 09/06/17 06:00 Blood Pressure 114/59 09/06/17 06:00 O2 Sat by Pulse Oximetry (%) 96 09/05/17 21:00 Constitutional: Yes: No Distress, Calm, Obese Cardiovascular: Yes: Regular Rate and Rhythm. No: Gallop, Murmur, Rub Respiratory: Yes: Regular, CTA Bilaterally. No: Rales, Rhonchi, Wheezes Gastrointestinal: Yes: Normal Bowel Sounds, Soft. No: Distention, Tenderness Extremities: Yes: Erythema Edema: Yes Edema: LLE: 3+, RLE: 3+ Labs: CBC, BMP 09/05/17 07:50 09/05/17 07:50 INR, PTT INR 2.45 (0.82-1.09) H 09/06/17 06:30 Problem List - Problems (1) Cellulitis Code(s): L03.90 - CELLULITIS, UNSPECIFIED Qualifiers: Site of cellulitis: extremity Site of cellulitis of extremity: lower extremity Laterality: unspecified laterality Qualified Code(s): L03.119 - Cellulitis of unspecified part of limb; L03.119 - Cellulitis of unspecified part of limb (2) Atrial fibrillation Code(s): I48.91 - UNSPECIFIED ATRIAL FIBRILLATION Qualifiers: Atrial fibrillation type: chronic Qualified Code(s): I48.2 - Chronic atrial fibrillation; I48.2 - Chronic atrial fibrillation; I48.2 - Chronic atrial fibrillation; I48.2 - Chronic atrial fibrillation (3) Lymphedema of both lower extremities Code(s): I89.0 - LYMPHEDEMA, NOT ELSEWHERE CLASSIFIED (4) Obesity Code(s): E66.9 - OBESITY, UNSPECIFIED (5) HTN (hypertension) Code(s): I10 - ESSENTIAL (PRIMARY) HYPERTENSION (6) HLD (hyperlipidemia) Code(s): E78.5 - HYPERLIPIDEMIA, UNSPECIFIED (7) Vaginal irritation Code(s): N89.8 - OTHER SPECIFIED NONINFLAMMATORY DISORDERS OF VAGINA Assessment/Plan (1) Cellulitis Assessment/Plan: -appreciate ID, vascular surgery, and dermatology assistance -wound cultures reviewed -continue tigecycline -continue wound care per Dr Gonzalez -discharge planning when tigecycline finishes Code(s): L03.90 - CELLULITIS, UNSPECIFIED Qualifiers: Site of cellulitis: extremity Site of cellulitis of extremity: lower extremity Laterality: unspecified laterality Qualified Code(s): L03.119 - Cellulitis of unspecified part of limb; L03.119 - Cellulitis of unspecified part of limb (2) Atrial fibrillation Assessment/Plan: -rate controlled -INR therapeutic, continue coumadin Code(s): I48.91 - UNSPECIFIED ATRIAL FIBRILLATION Qualifiers: Atrial fibrillation type: chronic Qualified Code(s): I48.2 - Chronic atrial fibrillation; I48.2 - Chronic atrial fibrillation; I48.2 - Chronic atrial fibrillation; I48.2 - Chronic atrial fibrillation (3) Lymphedema of both lower extremities Assessment/Plan: -chronic Code(s): I89.0 - LYMPHEDEMA, NOT ELSEWHERE CLASSIFIED (4) Obesity Assessment/Plan: -outpatient weight loss program per Dr Boykin -consider SNF for short term rehab Code(s): E66.9 - OBESITY, UNSPECIFIED (5) HTN (hypertension) Assessment/Plan: -well controlled -continue current regimen Code(s): I10 - ESSENTIAL (PRIMARY) HYPERTENSION (6) HLD (hyperlipidemia) Assessment/Plan: -continue statin Code(s): E78.5 - HYPERLIPIDEMIA, UNSPECIFIED (7) Vaginal irritation -gynecology consulted -will obtain vaginal ultrasound as well for spotting
[2017-09-06] MEDS: guaiFENesin 600 MG TABLET.ER (FP) PO SCH ×2 (14:17→21:50)
[2017-09-06] MEDS ORDERED: WARFARIN NA 5 MG TABLET (UD) ONE (18:57)
[2017-09-06] MEDS ORDERED: WARFARIN NA 1 MG TABLET (FP) ONE (18:57)
[2017-09-06] MEDS: WARFARIN NA 5 MG, WARFARIN NA 1 MG PO SCH (18:59)
[2017-09-06] MEDS: ATORVASTATIN CA 10 MG TABLET (FP) PO SCH (21:49)
[2017-09-06] MEDS: ZINC SULFATE 220 MG CAPSULE (FP) PO SCH (21:49)
[2017-09-06] MEDS ORDERED: diphenhydrAMINE HCL 25 MG CAPSULE (FP) PO ONE (22:58)
--- NOTE | 2017-09-06 23:04 | HOSP ---
Subjective - Review of Symptoms Events since last encounter: Hospitalist Encounter Notified by RN that the patient reports increased erythema and non-raised macular rash to above R- knee since 2199. Arrived to bedside, patient is AAOx3, +erythema, non-raised rash noted. Ordered Benadryl po x1 Will continue to monitor. Other Systems: Integumentary: Rash and Erythema to above the R- knee Physical Examination Vital Signs: Vital Signs Temperature 98.2 F 09/06/17 21:00 Pulse Rate 109 H 09/06/17 21:00 Respiratory Rate 20 09/06/17 21:00 Blood Pressure 117/70 09/06/17 21:00 O2 Sat by Pulse Oximetry (%) 96 09/06/17 21:00 Constitutional: Yes: Well Nourished, Obese Eyes: Yes: WNL, Conjunctiva Clear, PERRL HENT: Yes: WNL, Atraumatic, Normocephalic Neck: Yes: WNL, Supple, Trachea Midline Cardiovascular: Yes: WNL, Regular Rate and Rhythm, S1, S2 Respiratory: Yes: WNL, Regular, CTA Bilaterally Integumentary: Yes: Erythema (anterior/lateral aspect above right knee), Rash ( anterior/lateral aspect above right knee) Labs: CBC, BMP 09/05/17 07:50 09/05/17 07:50
[2017-09-07] MEDS: dilTIAZem HCL 30 MG TABLET (FP) PO SCH ×3 (06:26→22:18)
[2017-09-07 07:54] LABS: BASOPHIL 0.7 % (0-2.0); EOSINOPHIL 3.3 % (0-4.5); MCH 26.8 pg (25.7-33.7); MCHC 31.4 g/dl (32.0-36.0); MEAN CELL VOLUME 85.6 fl (80-96); MEAN PLT VOLUME 7.7 fl (7.5-11.1); NEUTROPHILS 62.9 % (42.8-82.8); PLATELET COUNT 271 K/MM3 (134-434); RDW 16.3 % (11.6-15.6); WHITE BLOOD COUNT 5.8 K/mm3 (4.0-10.0)
[2017-09-07 08:15] LABS: INR 2.94 (0.82-1.09); PROTHROMBIN TIME (PATIENT) 33.2 SEC (9.98-11.88)
[2017-09-07 08:35] LABS: ANION GAP 7 (8-16); CALCIUM 7.9 mg/dL (8.5-10.1); CO2 29 mmol/L (21-32); GLUCOSE,RANDOM 63 mg/dL (74-106); MAGNESIUM 1.8 mg/dL (1.8-2.4)
[2017-09-07 08:38] LABS: CREATININE 0.4 mg/dL (0.55-1.02); PHOSPHOROUS 3.4 mg/dL (2.5-4.9)
[2017-09-07] MEDS ORDERED: PT OWN MED DRAWER 7, Y5N ONE (09:53)
[2017-09-07] MEDS: guaiFENesin 600 MG TABLET.ER (FP) PO SCH ×2 (09:58→22:18)
[2017-09-07] MEDS: METOPROLOL SUCCINATE 50 MG TAB.SR.24H (FP) PO SCH ×2 (09:58→22:18)
[2017-09-07] MEDS: LOSARTAN POTASSIUM 25 MG TABLET PO SCH (09:58)
[2017-09-07] MEDS: CYANOCOBALAMIN 1,000 MCG TABLET (FP) PO SCH (09:59)
[2017-09-07] MEDS: TIGECYCLINE 50 MG in DEXTROSE 5%-WATER - 100 ML IVPB SCH ×2 (09:59→22:19)
[2017-09-07] MEDS: CHOLECALCIFEROL (VITAMIN D3) 1,000 UNIT TABLET (FP) PO SCH ×2 (09:59→22:18)
[2017-09-07] MEDS: ASCORBIC ACID 500 MG TABLET (FP) PO SCH (09:59)
[2017-09-07] MEDS: oxyCODONE HCL 5 MG TABLET PO PRN ×2 (15:43→22:15)
--- NOTE | 2017-09-07 15:52 | CON.OBG ---
Consult Consult Specialty:: MYCOLOGIST Referred by:: Dr. Griffith Reason for Consultation:: Vaginal irritation X 3 days - History of Present Illness History of Present Illness: 72 y/o post menopausal female admitted with B/L LE cellulitis complains of a 2- 3 day history of labial/vaginal irritation. Pt states she was scratching and did irritate her skin with her arm bracelets and had a small amount of bleeding 2 days ago, but it was from the superficial skin. She denies any vaginal bleeding since admission or since menopause. She declines a pelvic ultrasound. Pt has been on IV antibiotics since admission. No other [employer] complaints today. - Past Medical History Cardio/Vascular: Yes: AFIB, HTN, Other (h/o DVT) Pulmonary: Yes: COPD, Sleep Apnea Hepatobiliary: Yes: Other (fatty liver disease) Musculoskeletal: Yes: Chronic low back pain (/spinal stenosis) Rheumatology: Yes: Rheumatoid Arthritis Endocrine: Yes: Osteopenia, Other (obesity, thyroid nodule) - Past Surgical History Past Surgical History: Yes: Joint Replacement (right knee over 10 years ago) Additional Surgical History: Lipoma removal. Corneal Transplants (L eye) - Alcohol/Substance Use Hx Alcohol Use: No History of Substance Use: reports: None - Smoking History Smoking history: Never smoked Have you smoked in the past 12 months: No Aproximately how many cigarettes per day: 0 If you are a former smoker, when did you quit?: 1984 - Social History Usual Living Arrangement: With Spouse ( disabled) ADL: Independent History of Recent Travel: No Home Medications - Allergies Allergies/Adverse Reactions: Allergies Allergy/AdvReac Type Severity Reaction Status Date / Time Penicillins Allergy Severe Swelling Verified 08/29/17 17:05 clindamycin Allergy Mild Rash Verified 08/29/17 17:05 vancomycin AdvReac Mild Itching Verified 08/29/17 17:05 adhesive tape AdvReac Verified 08/29/17 17:05 - Home Medications Home Medications: Ambulatory Orders Ascorbate Calcium [Vitamin C] 1,000 mg PO DAILY 08/30/15 Cholecalciferol (Vitamin D3) [Vitamin D3] 1,000 unit PO BID 08/30/15 Cyanocobalamin [Vitamin B12 -] 1,000 mcg PO DAILY 08/30/15 Oxycodone/APAP [Percocet - Must Order Individual Components] 1 each NR QID PRN 08/30/15 Simvastatin 10 mg PO HS 10/06/15 Guaifenesin [Mucinex] 600 mg PO DAILY 06/20/17 Multivit-Min/FA/Lycopen/Lutein [Centrum Silver Tablet] 1 each PO DAILY 06/20/17 Warfarin Na [Coumadin -] 6 mg PO DAILY 06/20/17 Metoprolol Succinate [Toprol XL -] 50 mg PO BID #60 tab.sr 06/25/17 Docusate Sodium [Colace -] 1 cap PO DAILY PRN 07/12/17 Fish Oil/Borage/Flax/Om3,6,9#1 [[place] 3-6-9 1,200 mg Softgel] 1 cap PO DAILY Linezolid [Zyvox] 600 mg PO BID #10 tablet 08/06/17 Losartan Potassium [Cozaar -] 25 mg PO DAILY #30 tablet 08/06/17 Diltiazem [Cardizem -] 30 mg PO TID 08/29/17 Furosemide [Lasix] 40 mg PO ASDIR PRN 08/29/17 Potassium Chloride [Klor-Con 10] 10 meq PO DAILY PRN 08/29/17 Family Disease History - Family Disease History Family Disease History: Other: Father (alcohol abuse), Mother (rheumatoid arthritis) Review of Systems - Review of Systems HENT: reports: No Symptoms Neck: reports: No Symptoms Cardiovascular: reports: No Symptoms Genitourinary: reports: Incontinence Breasts: reports: No Symptoms Reported Musculoskeletal: reports: Extremity Pain Integumentary: reports: Other (b/l LE cellulitis, currently wrapped) Physical Exam-[employer] Vital Signs: Vital Signs Temperature 98.1 F 09/07/17 15:21 Pulse Rate 98 H 09/07/17 08:50 Respiratory Rate 18 09/07/17 08:50 Blood Pressure 92/59 09/07/17 08:50 O2 Sat by Pulse Oximetry (%) 96 09/07/17 09:00 Constitutional: Yes: Well Nourished, Calm Eyes: Yes: Conjunctiva Clear HENT: Yes: Atraumatic, Normocephalic Neck: Yes: Trachea Midline Cardiovascular: Yes: Regular Rate and Rhythm Respiratory: Yes: Regular Gastrointestinal: No: Distention, Tenderness, Vomiting ...Rectal Exam: Yes: Deferred Renal/: Yes: Other (vaginal/vulvar irritation and itching). No: Vaginal Bleeding Vaginal Exam: Yes: Discharge, Other (erythema on bilateral labia minora and majora, small amt of white thick discharge noted). No: Bleeding Uterus: Yes: Other (pt declined internal pelvic exam) Extremities: Yes: Other (cellulitis, currently wrapped) Neurological: Yes: Alert, Oriented Psychiatric: Yes: Alert, Oriented Labs: CBC, BMP 09/07/17 07:00 09/07/17 07:00 Problem List - Problems (1) Cellulitis Code(s): L03.90 - CELLULITIS, UNSPECIFIED Qualifiers: Site of cellulitis: extremity Site of cellulitis of extremity: lower extremity Laterality: unspecified laterality Qualified Code(s): L03.119 - Cellulitis of unspecified part of limb; L03.119 - Cellulitis of unspecified part of limb (2) Vulvovaginitis Code(s): N76.0 - ACUTE VAGINITIS Assessment/Plan recommend topical anti yeast/anti fungal and anti-inflammatory cream - ordered lotrisone BID at this time to apply to labia 1-2 times per day ok to f/u as outpatient
[2017-09-07] MEDS: MINERAL OIL/PETROLAT/WATER TOPICAL CREAM 454 GM JAR TP SCH (16:00)
[2017-09-07] MEDS: MUPIROCIN 2% TOPICAL OINTMENT 22 GM TUBE TP SCH ×2 (16:00→22:16)
--- NOTE | 2017-09-07 17:18 | PN ---
Physical Exam: SUBJECTIVE: Patient seen and examined at bedside. Complains of bilateral leg pain. OBJECTIVE: Vital Signs Period Temp Pulse Resp BP Sys/William Pulse Ox Last 24 Hr 97.5 F-98.2 F 97-109 18-20 92-117/59-72 96-96 GENERAL: The patient is awake, alert, and fully oriented, in no acute distress. LUNGS: Breath sounds equal, clear to auscultation bilaterally, no wheezes, no crackles, no accessory muscle use. HEART: Regular rate and rhythm, S1, S2 ABDOMEN: Soft, obese, nontender, nondistended, normoactive bowel sounds, no guarding, no rebound EXTREMITIES: 4+ bilateral edema, erythema NEUROLOGICAL: Cranial nerves II through XII grossly intact. Normal speech, gait not observed. Laboratory Results - last 24 hr 09/07/17 09/07/17 09/07/17 07:00 07:00 07:00 WBC 5.8 RBC 5.23 H Hgb 14.0 Hct 44.8 MCV 85.6 MCH 26.8 MCHC 31.4 L RDW 16.3 H Plt Count 271 MPV 7.7 Neutrophils % 62.9 Lymphocytes % 22.9 D Monocytes % 10.2 Eosinophils % 3.3 Basophils % 0.7 PT with INR 33.20 H INR 2.94 H Sodium 140 Potassium 4.5 Chloride 104 Carbon Dioxide 29 Anion Gap 7 L BUN 16 Creatinine 0.4 L Random Glucose 63 L D Calcium 7.9 L Phosphorus 3.4 Magnesium 1.8 Active Medications Generic Name Dose Route Start Last Admin Trade Name Freq PRN Reason Stop Dose Admin Acetaminophen 325 mg 08/29/17 22:15 09/06/17 21:48 Tylenol - PO 325 mg Q4H PRN Administration PAIN Aluminum Acetate 1 applic 09/06/17 10:00 09/06/17 10:30 Burow's Solution - TP 1 applic UTDICT BELL Administration Ascorbic Acid 1,000 mg 08/30/17 10:00 09/07/17 09:59 Vitamin C - PO 1,000 mg DAILY BELL Administration Atorvastatin Calcium 5 mg 08/29/17 23:01 09/06/17 21:49 Lipitor - PO 5 mg HS BELL Administration Cholecalciferol 1,000 unit 08/29/17 22:00 09/07/17 09:59 Vitamin D3 - PO 1,000 unit BID BELL Administration Clotrimazole 1 applic 09/07/17 22:00 Lotrisone Cream (Small Tube) TP BID BELL Cyanocobalamin 1,000 mcg 08/30/17 10:00 09/07/17 09:59 Vitamin B12 - PO 1,000 mcg DAILY BELL Administration Diltiazem HCl 30 mg 08/31/17 22:15 09/07/17 14:02 Cardizem - PO 30 mg TID BELL Administration Docusate Sodium 100 mg 08/29/17 22:15 Colace - PO BID PRN CONSTIPATION Guaifenesin 600 mg 09/06/17 12:15 09/07/17 09:58 Mucinex - PO 600 mg BID BELL Administration Tigecycline 50 mg/ Dextrose 100 mls @ 100 mls/hr 08/30/17 22:00 09/07/17 09:59 IVPB 100 mls/hr BID BELL Administration Protocol Loperamide HCl 2 mg 09/02/17 14:22 09/05/17 12:29 Imodium - PO 2 mg Q8H PRN Administration DIARRHEA Losartan Potassium 25 mg 08/30/17 10:00 09/07/17 09:58 Cozaar - PO Not Given DAILY BELL Metoprolol Succinate 50 mg 08/29/17 22:00 09/07/17 09:58 Toprol Xl - PO Not Given BID BELL Multi-Ingredient Lotion 1 applic 09/01/17 10:00 09/06/17 10:49 Eucerin (Large Jar) - TP 1 applic DAILY BELL Administration Mupirocin 1 applic 09/04/17 11:45 09/06/17 21:51 Bactroban 2% Ointment - TP 1 applic BID BELL Administration Oxycodone HCl 7.5 mg 08/29/17 22:14 09/07/17 15:43 Roxicodone - PO 7.5 mg Q4H PRN Administration Pain Simethicone 80 mg 09/06/17 12:05 Mylicon - PO QID PRN GAS Zinc Sulfate 220 mg 08/29/17 22:15 09/06/17 21:49 Orazinc - PO 220 mg HS BELL Administration ASSESSMENT/PLAN: Assessment/Plan (1) Cellulitis Assessment/Plan: -appreciate ID, vascular surgery, and dermatology assistance -wound cultures reviewed -continue tigecycline -continue wound care per Dr Gonzalez -discharge planning when tigecycline finishes Code(s): L03.90 - CELLULITIS, UNSPECIFIED Qualifiers: Site of cellulitis: extremity Site of cellulitis of extremity: lower extremity Laterality: unspecified laterality Qualified Code(s): L03.119 - Cellulitis of unspecified part of limb; L03.119 - Cellulitis of unspecified part of limb (2) Atrial fibrillation Assessment/Plan: -rate controlled, continue Toprol XL, diltiazem -INR therapeutic @ 2.94, continue coumadin Code(s): I48.91 - UNSPECIFIED ATRIAL FIBRILLATION Qualifiers: Atrial fibrillation type: chronic Qualified Code(s): I48.2 - Chronic atrial fibrillation; I48.2 - Chronic atrial fibrillation; I48.2 - Chronic atrial fibrillation; I48.2 - Chronic atrial fibrillation (3) Lymphedema of both lower extremities Assessment/Plan: -chronic Code(s): I89.0 - LYMPHEDEMA, NOT ELSEWHERE CLASSIFIED (4) Obesity Assessment/Plan: -outpatient weight loss program per Dr Boykin -consider SNF for short term rehab Code(s): E66.9 - OBESITY, UNSPECIFIED (5) HTN (hypertension) Assessment/Plan: -well controlled -continue current regimen Code(s): I10 - ESSENTIAL (PRIMARY) HYPERTENSION (6) HLD (hyperlipidemia) Assessment/Plan: -continue statin Code(s): E78.5 - HYPERLIPIDEMIA, UNSPECIFIED (7) Vulvovaginitis -gynecology consulted, lotrisone BID to labia BID -will obtain vaginal ultrasound as well for spotting Visit type - Emergency Visit Emergency Visit: Yes ED Registration Date: 08/29/17 Care time: The patient presented to the Emergency Department on the above date and was hospitalized for further evaluation of their emergent condition. - New Patient This patient is new to me today: Yes Date on this admission: 09/07/17 - Critical Care Critical Care patient: No
[2017-09-07] MEDS ORDERED: WARFARIN NA 5 MG TABLET (UD) PO ONE ×3 (19:34→22:00)
[2017-09-07] MEDS ORDERED: WARFARIN NA 3 MG TABLET PO ONE (20:00)
[2017-09-07] MEDS: ACETAMINOPHEN 325 MG TABLET (FP) PO PRN (22:16)
[2017-09-07] MEDS: ATORVASTATIN CA 10 MG TABLET (FP) PO SCH (22:17)
[2017-09-07] MEDS: CLOTRIMAZOLE/BETAMET DIPROP 15 GM TUBE TP SCH (22:18)
[2017-09-07] MEDS: ZINC SULFATE 220 MG CAPSULE (FP) PO SCH (22:18)
[2017-09-08] MEDS: dilTIAZem HCL 30 MG TABLET (FP) PO SCH ×3 (05:56→22:10)
[2017-09-08 08:03] LABS: BASOPHIL 0.9 % (0-2.0); EOSINOPHIL 3.3 % (0-4.5); MCH 27.2 pg (25.7-33.7); MCHC 31.9 g/dl (32.0-36.0); MEAN CELL VOLUME 85.4 fl (80-96); NEUTROPHILS 62.4 % (42.8-82.8); PLATELET COUNT 265 K/MM3 (134-434); RDW 16.2 % (11.6-15.6); WHITE BLOOD COUNT 5.7 K/mm3 (4.0-10.0)
[2017-09-08 08:18] LABS: INR 2.92 (0.82-1.09)
[2017-09-08 08:29] LABS: ANION GAP 7 (8-16); CALCIUM 7.8 mg/dL (8.5-10.1); CO2 31 mmol/L (21-32); CREATININE 0.5 mg/dL (0.55-1.02); GLUCOSE,RANDOM 64 mg/dL (74-106); MAGNESIUM 1.9 mg/dL (1.8-2.4); SGOT/AST 14 U/L (15-37); SGPT/ALT 18 U/L (12-78)
[2017-09-08 08:31] LABS: ALK PHOS 152 U/L (45-117); BILIRUBIN,TOTAL 0.6 mg/dL (0.2-1.0); TOT PROT 4.9 g/dl (6.4-8.2)
[2017-09-08] MEDS: CLOTRIMAZOLE/BETAMET DIPROP 15 GM TUBE TP SCH ×2 (10:00→22:20)
[2017-09-08] MEDS ORDERED: PT OWN MED DRAWER 7, Y5N ONE (10:52)
[2017-09-08] MEDS: oxyCODONE HCL 5 MG TABLET PO PRN ×3 (10:55→22:28)
[2017-09-08] MEDS: guaiFENesin 600 MG TABLET.ER (FP) PO SCH ×2 (10:55→22:11)
[2017-09-08] MEDS: LOSARTAN POTASSIUM 25 MG TABLET PO SCH (10:55)
[2017-09-08] MEDS: ASCORBIC ACID 500 MG TABLET (FP) PO SCH (10:56)
[2017-09-08] MEDS: METOPROLOL SUCCINATE 50 MG TAB.SR.24H (FP) PO SCH ×2 (10:56→22:10)
[2017-09-08] MEDS: CYANOCOBALAMIN 1,000 MCG TABLET (FP) PO SCH (10:56)
[2017-09-08] MEDS: CHOLECALCIFEROL (VITAMIN D3) 1,000 UNIT TABLET (FP) PO SCH ×2 (10:57→22:10)
[2017-09-08] MEDS: ACETAMINOPHEN 325 MG TABLET (FP) PO PRN ×3 (10:57→22:29)
[2017-09-08] MEDS: TIGECYCLINE 50 MG in DEXTROSE 5%-WATER - 100 ML IVPB SCH ×2 (10:57→22:11)
--- NOTE | 2017-09-08 12:22 | PN ---
Physical Exam: SUBJECTIVE: Patient seen and examined at the bedside. She denies any pain or discomfort. OBJECTIVE: +weeping edema of RLE INR 2.92 Vital Signs Period Temp Pulse Resp BP Sys/William Pulse Ox Last 24 Hr 97.8 F-98.1 F 96-110 20-20 108-124/44-58 96 GENERAL: The patient is awake, alert, and fully oriented, in no acute distress. HEAD: Normal with no signs of trauma. EYES: PERRL, extraocular movements intact, sclera anicteric, conjunctiva clear. No ptosis. ENT: Ears normal, nares patent, oropharynx clear without exudates, moist mucous membranes. NECK: Trachea midline, full range of motion, supple. LUNGS: Breath sounds equal, clear to auscultation bilaterally HEART: irregular heart rate ABDOMEN: Soft, nontender, nondistended, normoactive bowel sounds, no guarding, no rebound, no hepatosplenomegaly, no masses. EXTREMITIES: 2+ pulses, warm, well-perfused, no edema. NEUROLOGICAL: Normal speech, gait not observed. PSYCH: Normal mood, normal affect. SKIN: 4+ bilateral lower ext edema, erythema, +weeping of RLE, both wounds dressed, dressing is c/d/i Laboratory Results - last 24 hr 09/08/17 09/08/17 09/08/17 07:00 07:00 07:00 WBC 5.7 RBC 5.53 H Hgb 15.1 Hct 47.2 H MCV 85.4 MCH 27.2 MCHC 31.9 L RDW 16.2 H Plt Count 265 MPV 8.0 Neutrophils % 62.4 Lymphocytes % 22.9 Monocytes % 10.5 H Eosinophils % 3.3 Basophils % 0.9 PT with INR 33.00 H INR 2.92 H Sodium 140 Potassium 4.9 Chloride 102 Carbon Dioxide 31 Anion Gap 7 L BUN 17 Creatinine 0.5 L D Creat Clearance w eGFR > 60 Random Glucose 64 L Calcium 7.8 L Magnesium 1.9 Total Bilirubin 0.6 D AST 14 L D ALT 18 Alkaline Phosphatase 152 H Total Protein 4.9 L Albumin 2.0 L D Active Medications Generic Name Dose Route Start Last Admin Trade Name Freq PRN Reason Stop Dose Admin Acetaminophen 325 mg 08/29/17 22:15 09/08/17 10:57 Tylenol - PO 325 mg Q4H PRN Administration PAIN Aluminum Acetate 1 applic 09/06/17 10:00 09/06/17 10:30 Burow's Solution - TP 1 applic UTDICT BELL Administration Ascorbic Acid 1,000 mg 08/30/17 10:00 09/08/17 10:56 Vitamin C - PO 1,000 mg DAILY BELL Administration Atorvastatin Calcium 5 mg 08/29/17 23:01 09/07/17 22:17 Lipitor - PO 5 mg HS BELL Administration Cholecalciferol 1,000 unit 08/29/17 22:00 09/08/17 10:57 Vitamin D3 - PO 1,000 unit BID BELL Administration Clotrimazole 1 applic 09/07/17 22:00 09/07/17 22:18 Lotrisone Cream (Small Tube) TP 1 applic BID BELL Administration Cyanocobalamin 1,000 mcg 08/30/17 10:00 09/08/17 10:56 Vitamin B12 - PO 1,000 mcg DAILY BELL Administration Diltiazem HCl 30 mg 08/31/17 22:15 09/08/17 05:56 Cardizem - PO 30 mg TID BELL Administration Docusate Sodium 100 mg 08/29/17 22:15 Colace - PO BID PRN CONSTIPATION Guaifenesin 600 mg 09/06/17 12:15 09/08/17 10:55 Mucinex - PO 600 mg BID BELL Administration Tigecycline 50 mg/ Dextrose 100 mls @ 100 mls/hr 08/30/17 22:00 09/08/17 10:57 IVPB 100 mls/hr BID BELL Administration Protocol Loperamide HCl 2 mg 09/02/17 14:22 09/05/17 12:29 Imodium - PO 2 mg Q8H PRN Administration DIARRHEA Losartan Potassium 25 mg 08/30/17 10:00 09/08/17 10:55 Cozaar - PO Not Given DAILY BELL Metoprolol Succinate 50 mg 08/29/17 22:00 09/08/17 10:56 Toprol Xl - PO Not Given BID BELL Multi-Ingredient Lotion 1 applic 09/01/17 10:00 09/07/17 16:00 Eucerin (Large Jar) - TP 1 applic DAILY BELL Administration Mupirocin 1 applic 09/04/17 11:45 09/07/17 22:16 Bactroban 2% Ointment - TP 1 applic BID BELL Administration Oxycodone HCl 7.5 mg 08/29/17 22:14 09/08/17 10:55 Roxicodone - PO 7.5 mg Q4H PRN Administration Pain Simethicone 80 mg 09/06/17 12:05 Mylicon - PO QID PRN GAS Warfarin Sodium 5 mg 09/08/17 18:00 Coumadin - PO DAILY@1800 BELL Zinc Sulfate 220 mg 08/29/17 22:15 09/07/17 22:18 Orazinc - PO 220 mg HS BELL Administration ASSESSMENT/PLAN: Patient is a 72 year old female admitted for cellulitis vs dermatitis of bilateral lower extremities. She has a significant history of multiple allerties to antibiotics. ID: Cellulitis of Bilateral lower Ext. A/P: On Tigecycline BID Wound culture noted ID following Monitor labs, vitals Venous stasis dermatitis A/P: Eucerin cream Cardiology: Atrial fibrillation/Hypertension A/P: On Warfarin 5mg daily Monitor INR Metoprlol 50mg BID for rate control and BP F.E.N. Fluids: Tolerating PO Electrolytes: monitor BMP Nutrition: low sodium Prophylaxis: DVT: On Coumadin/inr. 2.94 Disposition. full code. Visit type - Emergency Visit Emergency Visit: Yes ED Registration Date: 08/29/17 Care time: The patient presented to the Emergency Department on the above date and was hospitalized for further evaluation of their emergent condition. - New Patient This patient is new to me today: Yes Date on this admission: 09/08/17 - Critical Care Critical Care patient: No - Discharge Referral Referred to [facility] Med P.C.: No
[2017-09-08] MEDS: diphenhydrAMINE HCL 25 MG CAPSULE (FP) PO PRN ×2 (13:42→22:42)
[2017-09-08] MEDS: SIMETHICONE 80 MG TAB.CHEW (FP) PO PRN (13:42)
[2017-09-08] MEDS: MUPIROCIN 2% TOPICAL OINTMENT 22 GM TUBE TP SCH ×2 (14:30→22:20)
[2017-09-08] MEDS: MINERAL OIL/PETROLAT/WATER TOPICAL CREAM 454 GM JAR TP SCH (14:30)
[2017-09-08] MEDS ORDERED: WARFARIN NA 5 MG TABLET (UD) PO SCH (18:00)
[2017-09-08] MEDS ORDERED: WARFARIN NA 3 MG TABLET PO SCH (18:00)
[2017-09-08] MEDS: ATORVASTATIN CA 10 MG TABLET (FP) PO SCH (22:09)
[2017-09-08] MEDS: ZINC SULFATE 220 MG CAPSULE (FP) PO SCH (22:10)
[2017-09-09] MEDS: dilTIAZem HCL 30 MG TABLET (FP) PO SCH ×3 (05:39→21:28)
[2017-09-09 08:24] LABS: BASOPHIL 1.8 % (0-2.0); EOSINOPHIL 3.4 % (0-4.5); MCH 26.8 pg (25.7-33.7); MCHC 31.7 g/dl (32.0-36.0); MEAN CELL VOLUME 84.8 fl (80-96); MEAN PLT VOLUME 7.7 fl (7.5-11.1); NEUTROPHILS 60.2 % (42.8-82.8); PLATELET COUNT 303 K/MM3 (134-434); RDW 16.3 % (11.6-15.6); WHITE BLOOD COUNT 7.1 K/mm3 (4.0-10.0)
[2017-09-09 08:45] LABS: INR 3.13 (0.82-1.09); PROTHROMBIN TIME (PATIENT) 35.4 SEC (9.98-11.88)
[2017-09-09 08:59] LABS: ALBUMIN 2.3 g/dl (3.4-5.0); ANION GAP 8 (8-16); CALCIUM 7.9 mg/dL (8.5-10.1); CO2 30 mmol/L (21-32)
[2017-09-09 09:13] LABS: ALK PHOS 172 U/L (45-117); BILIRUBIN,TOTAL 0.6 mg/dL (0.2-1.0); CREATININE 0.5 mg/dL (0.55-1.02); GLUCOSE,RANDOM 62 mg/dL (74-106); SGOT/AST 23 U/L (15-37); SGPT/ALT 26 U/L (12-78); TOT PROT 5.5 g/dl (6.4-8.2)
[2017-09-09] MEDS ORDERED: PT OWN MED DRAWER 7, Y5N ONE ×2 (09:18→15:54)
[2017-09-09] MEDS: MUPIROCIN 2% TOPICAL OINTMENT 22 GM TUBE TP SCH ×2 (10:04→21:28)
[2017-09-09] MEDS: LOSARTAN POTASSIUM 25 MG TABLET PO SCH (10:05)
[2017-09-09] MEDS: CLOTRIMAZOLE/BETAMET DIPROP 15 GM TUBE TP SCH ×2 (10:06→21:28)
[2017-09-09] MEDS: guaiFENesin 600 MG TABLET.ER (FP) PO SCH ×2 (10:06→21:25)
[2017-09-09] MEDS: MINERAL OIL/PETROLAT/WATER TOPICAL CREAM 454 GM JAR TP SCH (10:06)
[2017-09-09] MEDS: METOPROLOL SUCCINATE 50 MG TAB.SR.24H (FP) PO SCH ×2 (10:06→21:28)
[2017-09-09] MEDS: TIGECYCLINE 50 MG in DEXTROSE 5%-WATER - 100 ML IVPB SCH (10:07)
[2017-09-09] MEDS: CYANOCOBALAMIN 1,000 MCG TABLET (FP) PO SCH (10:07)
[2017-09-09] MEDS: ASCORBIC ACID 500 MG TABLET (FP) PO SCH (10:07)
[2017-09-09] MEDS: CHOLECALCIFEROL (VITAMIN D3) 1,000 UNIT TABLET (FP) PO SCH ×2 (10:08→21:25)
[2017-09-09] MEDS: diphenhydrAMINE HCL 25 MG CAPSULE (FP) PO PRN ×2 (10:11→21:30)
--- NOTE | 2017-09-09 10:59 | PN ---
Progress Note, Physician History of Present Illness: Slow responsive to antibiotics Legs remain erythematous Has pain with movement No c/o fever/ chills WBC WNL - Current Medication List Current Medications: Active Medications Acetaminophen (Tylenol -) 325 mg PO Q4H PRN PRN Reason: PAIN Last Admin: 09/08/17 22:29 Dose: 325 mg Aluminum Acetate (Burow's Solution -) 1 applic TP UTDICT [facility] Last Admin: 09/06/17 10:30 Dose: 1 applic Ascorbic Acid (Vitamin C -) 1,000 mg PO DAILY [facility] Last Admin: 09/09/17 10:07 Dose: 1,000 mg Atorvastatin Calcium (Lipitor -) 5 mg PO HS [facility] Last Admin: 09/08/17 22:09 Dose: 5 mg Cholecalciferol (Vitamin D3 -) 1,000 unit PO BID [facility] Last Admin: 09/09/17 10:08 Dose: 1,000 unit Clotrimazole (Lotrisone Cream (Small Tube)) 1 applic TP BID [facility] Last Admin: 09/09/17 10:06 Dose: 1 applic Cyanocobalamin (Vitamin B12 -) 1,000 mcg PO DAILY [facility] Last Admin: 09/09/17 10:07 Dose: 1,000 mcg Diltiazem HCl (Cardizem -) 30 mg PO TID [facility] Last Admin: 09/09/17 05:39 Dose: 30 mg Diphenhydramine HCl (Benadryl -) 25 mg PO Q6H PRN PRN Reason: FOR ITCHING Last Admin: 09/09/17 10:11 Dose: 25 mg Docusate Sodium (Colace -) 100 mg PO BID PRN PRN Reason: CONSTIPATION Guaifenesin (Mucinex -) 600 mg PO BID [facility] Last Admin: 09/09/17 10:06 Dose: 600 mg Tigecycline 50 mg/ Dextrose 100 mls @ 100 mls/hr IVPB BID [facility] PRN Reason: Protocol Last Admin: 09/09/17 10:07 Dose: 100 mls/hr Loperamide HCl (Imodium -) 2 mg PO Q8H PRN PRN Reason: DIARRHEA Last Admin: 09/05/17 12:29 Dose: 2 mg Losartan Potassium (Cozaar -) 25 mg PO DAILY [facility] Last Admin: 09/09/17 10:05 Dose: 25 mg Metoprolol Succinate (Toprol Xl -) 50 mg PO BID [facility] Last Admin: 09/09/17 10:06 Dose: 50 mg Multi-Ingredient Lotion (Eucerin (Large Jar) -) 1 applic TP DAILY [facility] Last Admin: 09/09/17 10:06 Dose: 1 applic Mupirocin (Bactroban 2% Ointment -) 1 applic TP BID [facility] Last Admin: 09/09/17 10:04 Dose: 1 applic Oxycodone HCl (Roxicodone -) 7.5 mg PO Q4H PRN PRN Reason: Pain Last Admin: 09/08/17 22:28 Dose: 7.5 mg Simethicone (Mylicon -) 80 mg PO QID PRN PRN Reason: GAS Last Admin: 09/08/17 13:42 Dose: 80 mg Warfarin Sodium (Coumadin -) 5 mg PO DAILY@1800 [facility] Last Admin: 09/08/17 17:56 Dose: 5 mg Zinc Sulfate (Orazinc -) 220 mg PO HS [facility] Last Admin: 09/08/17 22:10 Dose: 220 mg - Objective Vital Signs: Vital Signs Temperature 98 F 09/09/17 10:00 Pulse Rate 97 H 09/09/17 10:00 Respiratory Rate 18 09/09/17 10:00 Blood Pressure 111/79 09/09/17 10:00 O2 Sat by Pulse Oximetry (%) 96 09/08/17 21:00 Constitutional: Yes: No Distress, Obese Eyes: Yes: Conjunctiva Clear Cardiovascular: Yes: Regular Rate and Rhythm, S1, S2 Respiratory: Yes: CTA Bilaterally Gastrointestinal: Yes: Normal Bowel Sounds, Soft, Abdomen, Obese. No: Tenderness Extremities: Yes: Other (+ erythema LE bilaterally R>L No weepage noted) Edema: Yes Edema: LLE: 2+, RLE: 2+ Labs: CBC, BMP 09/09/17 06:00 09/09/17 06:00 INR, PTT INR 3.13 (0.82-1.09) H 09/09/17 06:00 Assessment/Plan Recurrent bilateral LE cellulitis Multiple antibiotic allergies In light of slow clinical response will substitute levaquin 750mg daily Local wound care
--- NOTE | 2017-09-09 11:36 | PN ---
Progress Note, Physician Chief Complaint: Mrs Torres is without new complaints. Says her legs are still quite painful. No cp, sob, n/v. - Current Medication List Current Medications: Active Medications Acetaminophen (Tylenol -) 325 mg PO Q4H PRN PRN Reason: PAIN Last Admin: 09/08/17 22:29 Dose: 325 mg Aluminum Acetate (Burow's Solution -) 1 applic TP UTDICT [facility] [place] Last Admin: 09/06/17 10:30 Dose: 1 applic Ascorbic Acid (Vitamin C -) 1,000 mg PO DAILY [facility] Last Admin: 09/09/17 10:07 Dose: 1,000 mg Atorvastatin Calcium (Lipitor -) 5 mg PO HS [facility] Last Admin: 09/08/17 22:09 Dose: 5 mg Cholecalciferol (Vitamin D3 -) 1,000 unit PO BID [facility] Last Admin: 09/09/17 10:08 Dose: 1,000 unit Clotrimazole (Lotrisone Cream (Small Tube)) 1 applic TP BID [facility] Last Admin: 09/09/17 10:06 Dose: 1 applic Cyanocobalamin (Vitamin B12 -) 1,000 mcg PO DAILY [facility] [place] Last Admin: 09/09/17 10:07 Dose: 1,000 mcg Diltiazem HCl (Cardizem -) 30 mg PO TID [facility] Last Admin: 09/09/17 05:39 Dose: 30 mg Diphenhydramine HCl (Benadryl -) 25 mg PO Q6H PRN PRN Reason: FOR ITCHING Last Admin: 09/09/17 10:11 Dose: 25 mg Docusate Sodium (Colace -) 100 mg PO BID PRN PRN Reason: CONSTIPATION Guaifenesin (Mucinex -) 600 mg PO BID [facility] [place] Last Admin: 09/09/17 10:06 Dose: 600 mg Tigecycline 50 mg/ Dextrose 100 mls @ 100 mls/hr IVPB BID [facility] PRN Reason: Protocol Last Admin: 09/09/17 10:07 Dose: 100 mls/hr Loperamide HCl (Imodium -) 2 mg PO Q8H PRN PRN Reason: DIARRHEA Last Admin: 09/05/17 12:29 Dose: 2 mg Losartan Potassium (Cozaar -) 25 mg PO DAILY [facility] [place] Last Admin: 09/09/17 10:05 Dose: 25 mg Metoprolol Succinate (Toprol Xl -) 50 mg PO BID [facility] Last Admin: 09/09/17 10:06 Dose: 50 mg Multi-Ingredient Lotion (Eucerin (Large Jar) -) 1 applic TP DAILY [facility] [place] Last Admin: 09/09/17 10:06 Dose: 1 applic Mupirocin (Bactroban 2% Ointment -) 1 applic TP BID [facility] [place] Last Admin: 09/09/17 10:04 Dose: 1 applic Oxycodone HCl (Roxicodone -) 7.5 mg PO Q4H PRN PRN Reason: Pain Last Admin: 09/08/17 22:28 Dose: 7.5 mg Simethicone (Mylicon -) 80 mg PO QID PRN PRN Reason: GAS Last Admin: 09/08/17 13:42 Dose: 80 mg Warfarin Sodium (Coumadin -) 4 mg PO DAILY@1800 [facility] Zinc Sulfate (Orazinc -) 220 mg PO HS [facility] [place] Last Admin: 09/08/17 22:10 Dose: 220 mg - Objective Vital Signs: Vital Signs Temperature 36.6 C 09/09/17 10:00 Pulse Rate 97 H 09/09/17 10:00 Respiratory Rate 18 09/09/17 10:00 Blood Pressure 111/79 09/09/17 10:00 O2 Sat by Pulse Oximetry (%) 96 09/08/17 21:00 Constitutional: Yes: No Distress, Calm, Obese Cardiovascular: Yes: Pulse Irregular. No: Gallop, Murmur, Rub Respiratory: Yes: Regular, CTA Bilaterally. No: Rhonchi, Wheezes Gastrointestinal: Yes: Normal Bowel Sounds, Soft. No: Distention, Tenderness Extremities: Yes: Erythema Edema: Yes Edema: LLE: 3+, RLE: 3+ Labs: CBC, BMP 09/09/17 06:00 09/09/17 06:00 INR, PTT INR 3.13 (0.82-1.09) H 09/09/17 06:00 Problem List - Problems (1) Cellulitis Code(s): L03.90 - CELLULITIS, UNSPECIFIED Qualifiers: Site of cellulitis: extremity Site of cellulitis of extremity: lower extremity Laterality: unspecified laterality Qualified Code(s): L03.119 - Cellulitis of unspecified part of limb; L03.119 - Cellulitis of unspecified part of limb (2) Atrial fibrillation Code(s): I48.91 - UNSPECIFIED ATRIAL FIBRILLATION Qualifiers: Atrial fibrillation type: chronic Qualified Code(s): I48.2 - Chronic atrial fibrillation; I48.2 - Chronic atrial fibrillation; I48.2 - Chronic atrial fibrillation; I48.2 - Chronic atrial fibrillation (3) Lymphedema of both lower extremities Code(s): I89.0 - LYMPHEDEMA, NOT ELSEWHERE CLASSIFIED (4) Obesity Code(s): E66.9 - OBESITY, UNSPECIFIED (5) HTN (hypertension) Code(s): I10 - ESSENTIAL (PRIMARY) HYPERTENSION (6) HLD (hyperlipidemia) Code(s): E78.5 - HYPERLIPIDEMIA, UNSPECIFIED (7) Vaginal irritation Code(s): N89.8 - OTHER SPECIFIED NONINFLAMMATORY DISORDERS OF VAGINA Assessment/Plan (1) Cellulitis Assessment/Plan: -appreciate ID, vascular surgery, and dermatology assistance -wound cultures reviewed -continue tigecycline per ID, note reviewed -continue wound care per Dr Gonzalez Code(s): L03.90 - CELLULITIS, UNSPECIFIED Qualifiers: Site of cellulitis: extremity Site of cellulitis of extremity: lower extremity Laterality: unspecified laterality Qualified Code(s): L03.119 - Cellulitis of unspecified part of limb; L03.119 - Cellulitis of unspecified part of limb (2) Atrial fibrillation Assessment/Plan: -rate controlled -INR supratherapeutic -decrease coumadin to 4mg and recheck in am Code(s): I48.91 - UNSPECIFIED ATRIAL FIBRILLATION Qualifiers: Atrial fibrillation type: chronic Qualified Code(s): I48.2 - Chronic atrial fibrillation; I48.2 - Chronic atrial fibrillation; I48.2 - Chronic atrial fibrillation; I48.2 - Chronic atrial fibrillation (3) Lymphedema of both lower extremities Assessment/Plan: -chronic Code(s): I89.0 - LYMPHEDEMA, NOT ELSEWHERE CLASSIFIED (4) Obesity Assessment/Plan: -outpatient weight loss program per Dr Boykin -consider SNF for short term rehab Code(s): E66.9 - OBESITY, UNSPECIFIED (5) HTN (hypertension) Assessment/Plan: -well controlled -continue current regimen Code(s): I10 - ESSENTIAL (PRIMARY) HYPERTENSION (6) HLD (hyperlipidemia) Assessment/Plan: -continue statin Code(s): E78.5 - HYPERLIPIDEMIA, UNSPECIFIED (7) Vaginal irritation -gynecology consulted and appreciate assistance -continue clotrimazole
[2017-09-09] MEDS: oxyCODONE HCL 5 MG TABLET PO PRN ×2 (12:21→16:25)
[2017-09-09] MEDS: LEVOFLOXACIN 750 MG IVPB 150 ML IVPB SCH (16:00)
[2017-09-09] MEDS: WARFARIN NA 2 MG TABLET (UD) PO SCH (17:56)
[2017-09-09] MEDS: ACETAMINOPHEN 325 MG TABLET (FP) PO PRN (17:59)
[2017-09-09] MEDS: ATORVASTATIN CA 10 MG TABLET (FP) PO SCH (21:25)
[2017-09-09] MEDS: ZINC SULFATE 220 MG CAPSULE (FP) PO SCH (21:25)
[2017-09-09] MEDS: LOPERAMIDE HCL 2 MG CAPSULE PO PRN (21:30)
[2017-09-10] MEDS: dilTIAZem HCL 30 MG TABLET (FP) PO SCH ×3 (05:55→21:41)
[2017-09-10 08:38] LABS: BASOPHIL 0.7 % (0-2.0); MCH 27.1 pg (25.7-33.7); MCHC 31.9 g/dl (32.0-36.0); MEAN CELL VOLUME 84.7 fl (80-96); MEAN PLT VOLUME 7.6 fl (7.5-11.1); NEUTROPHILS 63.2 % (42.8-82.8); PLATELET COUNT 275 K/MM3 (134-434); RDW 16.2 % (11.6-15.6); WHITE BLOOD COUNT 5.6 K/mm3 (4.0-10.0)
[2017-09-10 08:43] LABS: INR 3.42 (0.82-1.09); PROTHROMBIN TIME (PATIENT) 38.7 SEC (9.98-11.88)
[2017-09-10 08:56] LABS: ANION GAP 5 (8-16); CALCIUM 7.8 mg/dL (8.5-10.1); CO2 33 mmol/L (21-32); CREATININE 0.5 mg/dL (0.55-1.02); GLUCOSE,RANDOM 75 mg/dL (74-106); MAGNESIUM 1.6 mg/dL (1.8-2.4); PHOSPHOROUS 3.6 mg/dL (2.5-4.9)
[2017-09-10] MEDS ORDERED: PT OWN MED DRAWER 7, Y5N ONE ×2 (09:56→10:09)
[2017-09-10] MEDS: CHOLECALCIFEROL (VITAMIN D3) 1,000 UNIT TABLET (FP) PO SCH ×2 (10:43→21:41)
[2017-09-10] MEDS: METOPROLOL SUCCINATE 50 MG TAB.SR.24H (FP) PO SCH ×2 (10:43→21:41)
[2017-09-10] MEDS: guaiFENesin 600 MG TABLET.ER (FP) PO SCH ×2 (10:43→21:41)
[2017-09-10] MEDS: CYANOCOBALAMIN 1,000 MCG TABLET (FP) PO SCH (10:43)
[2017-09-10] MEDS: LOSARTAN POTASSIUM 25 MG TABLET PO SCH (10:43)
[2017-09-10] MEDS: ASCORBIC ACID 500 MG TABLET (FP) PO SCH (10:44)
[2017-09-10] MEDS: ALUMINUM ACETATE TP SCH (10:44)
[2017-09-10] MEDS: MUPIROCIN 2% TOPICAL OINTMENT 22 GM TUBE TP SCH ×2 (10:46→21:42)
[2017-09-10] MEDS: MINERAL OIL/PETROLAT/WATER TOPICAL CREAM 454 GM JAR TP SCH (10:47)
[2017-09-10] MEDS: CLOTRIMAZOLE/BETAMET DIPROP 15 GM TUBE TP SCH ×2 (10:48→21:43)
[2017-09-10] MEDS: SIMETHICONE 80 MG TAB.CHEW (FP) PO PRN (10:49)
[2017-09-10] MEDS: oxyCODONE HCL 5 MG TABLET PO PRN ×3 (10:49→21:41)
--- NOTE | 2017-09-10 10:57 | PN ---
Progress Note, Physician Chief Complaint: Mrs Torres is without new complaints. No cp, sob, n/v. - Current Medication List Current Medications: Active Medications Acetaminophen (Tylenol -) 325 mg PO Q4H PRN PRN Reason: PAIN Last Admin: 09/09/17 17:59 Dose: 325 mg Aluminum Acetate (Burow's Solution -) 1 applic TP UTDICT [facility] Last Admin: 09/10/17 10:44 Dose: 1 applic Ascorbic Acid (Vitamin C -) 1,000 mg PO DAILY [facility] Last Admin: 09/10/17 10:44 Dose: 1,000 mg Atorvastatin Calcium (Lipitor -) 5 mg PO HS [facility] Last Admin: 09/09/17 21:25 Dose: 5 mg Cholecalciferol (Vitamin D3 -) 1,000 unit PO BID [facility] Last Admin: 09/10/17 10:43 Dose: 1,000 unit Clotrimazole (Lotrisone Cream (Small Tube)) 1 applic TP BID [facility] Last Admin: 09/10/17 10:48 Dose: 1 applic Cyanocobalamin (Vitamin B12 -) 1,000 mcg PO DAILY [facility] Last Admin: 09/10/17 10:43 Dose: 1,000 mcg Diltiazem HCl (Cardizem -) 30 mg PO TID [facility] Last Admin: 09/10/17 05:55 Dose: 30 mg Diphenhydramine HCl (Benadryl -) 25 mg PO Q6H PRN PRN Reason: FOR ITCHING Last Admin: 09/09/17 21:30 Dose: 25 mg Docusate Sodium (Colace -) 100 mg PO BID PRN PRN Reason: CONSTIPATION Guaifenesin (Mucinex -) 600 mg PO BID [facility] Last Admin: 09/10/17 10:43 Dose: 600 mg Levofloxacin (Levaquin 750 Mg Premixed Ivpb -) 150 mls @ 100 mls/hr IVPB DAILY [facility] Last Admin: 09/09/17 16:00 Dose: 100 mls/hr Loperamide HCl (Imodium -) 2 mg PO Q8H PRN PRN Reason: DIARRHEA Last Admin: 09/09/17 21:30 Dose: 2 mg Losartan Potassium (Cozaar -) 25 mg PO DAILY [facility] Last Admin: 09/10/17 10:43 Dose: 25 mg Magnesium Oxide (Mag-Ox -) 800 mg PO ONCE ONE Stop: 09/10/17 10:32 Metoprolol Succinate (Toprol Xl -) 50 mg PO BID [facility] Last Admin: 09/10/17 10:43 Dose: 50 mg Multi-Ingredient Lotion (Eucerin (Large Jar) -) 1 applic TP DAILY [facility] Last Admin: 09/10/17 10:47 Dose: 1 applic Mupirocin (Bactroban 2% Ointment -) 1 applic TP BID [facility] Last Admin: 09/10/17 10:46 Dose: 1 applic Oxycodone HCl (Roxicodone -) 7.5 mg PO Q4H PRN PRN Reason: Pain Last Admin: 09/10/17 10:49 Dose: 7.5 mg Simethicone (Mylicon -) 80 mg PO QID PRN PRN Reason: GAS Last Admin: 09/10/17 10:49 Dose: 80 mg Sodium Polystyrene Sulfonate (Kayexalate -) 15 gm PO ONCE ONE Stop: 09/10/17 10:35 Warfarin Sodium (Coumadin -) 4 mg PO DAILY@1800 [facility] Last Admin: 09/09/17 17:56 Dose: 4 mg Zinc Sulfate (Orazinc -) 220 mg PO HS [facility] Last Admin: 09/09/17 21:25 Dose: 220 mg - Objective Vital Signs: Vital Signs Temperature 36.4 C 09/10/17 05:27 Pulse Rate 110 H 09/10/17 05:27 Respiratory Rate 18 09/10/17 05:27 Blood Pressure 123/68 09/10/17 05:27 O2 Sat by Pulse Oximetry (%) 96 09/09/17 21:00 Constitutional: Yes: No Distress, Calm, Obese Cardiovascular: Yes: Pulse Irregular. No: Tachycardia, Gallop, Murmur, Rub Respiratory: Yes: Regular, CTA Bilaterally. No: Rales, Rhonchi, Wheezes Gastrointestinal: Yes: Normal Bowel Sounds, Soft. No: Distention, Tenderness Extremities: Yes: WNL Edema: No Labs: CBC, BMP 09/10/17 06:50 09/10/17 06:50 INR, PTT INR 3.42 (0.82-1.09) H 09/10/17 06:50 Problem List - Problems (1) Cellulitis Code(s): L03.90 - CELLULITIS, UNSPECIFIED Qualifiers: Site of cellulitis: extremity Site of cellulitis of extremity: lower extremity Laterality: unspecified laterality Qualified Code(s): L03.119 - Cellulitis of unspecified part of limb; L03.119 - Cellulitis of unspecified part of limb (2) Atrial fibrillation Code(s): I48.91 - UNSPECIFIED ATRIAL FIBRILLATION Qualifiers: Atrial fibrillation type: chronic Qualified Code(s): I48.2 - Chronic atrial fibrillation; I48.2 - Chronic atrial fibrillation; I48.2 - Chronic atrial fibrillation; I48.2 - Chronic atrial fibrillation (3) Lymphedema of both lower extremities Code(s): I89.0 - LYMPHEDEMA, NOT ELSEWHERE CLASSIFIED (4) Obesity Code(s): E66.9 - OBESITY, UNSPECIFIED (5) HTN (hypertension) Code(s): I10 - ESSENTIAL (PRIMARY) HYPERTENSION (6) HLD (hyperlipidemia) Code(s): E78.5 - HYPERLIPIDEMIA, UNSPECIFIED (7) Vaginal irritation Code(s): N89.8 - OTHER SPECIFIED NONINFLAMMATORY DISORDERS OF VAGINA Assessment/Plan (1) Cellulitis Assessment/Plan: -appreciate ID, vascular surgery, and dermatology assistance -wound cultures reviewed -ID changed tigecycline to levaquin -continue wound care per Dr Gonzalez Code(s): L03.90 - CELLULITIS, UNSPECIFIED Qualifiers: Site of cellulitis: extremity Site of cellulitis of extremity: lower extremity Laterality: unspecified laterality Qualified Code(s): L03.119 - Cellulitis of unspecified part of limb; L03.119 - Cellulitis of unspecified part of limb (2) Atrial fibrillation Assessment/Plan: -rate controlled -INR supratherapeutic -hold coumadin today -may need to hold for a few days since now on levaquin Code(s): I48.91 - UNSPECIFIED ATRIAL FIBRILLATION Qualifiers: Atrial fibrillation type: chronic Qualified Code(s): I48.2 - Chronic atrial fibrillation; I48.2 - Chronic atrial fibrillation; I48.2 - Chronic atrial fibrillation; I48.2 - Chronic atrial fibrillation (3) Lymphedema of both lower extremities Assessment/Plan: -chronic Code(s): I89.0 - LYMPHEDEMA, NOT ELSEWHERE CLASSIFIED (4) Obesity Assessment/Plan: -outpatient weight loss program per Dr Boykin -consider SNF for short term rehab Code(s): E66.9 - OBESITY, UNSPECIFIED (5) HTN (hypertension) Assessment/Plan: -well controlled -continue current regimen Code(s): I10 - ESSENTIAL (PRIMARY) HYPERTENSION (6) HLD (hyperlipidemia) Assessment/Plan: -continue statin Code(s): E78.5 - HYPERLIPIDEMIA, UNSPECIFIED (7) Vaginal irritation -gynecology consulted and appreciate assistance -continue clotrimazole (8) FEN -patient with hyperkalemia today and hypomagnesemia -replace magnesium -give small dose kayexalate -recheck in am
[2017-09-10] MEDS: LEVOFLOXACIN 750 MG IVPB 150 ML IVPB SCH (11:30)
[2017-09-10] MEDS ORDERED: MAGNESIUM OXIDE 400 MG TABLET (FP) PO ONE (11:35)
[2017-09-10] MEDS ORDERED: SODIUM POLYSTYRENE SULFONATE 15 GM/60 ML BOTTLE PO ONE (12:00)
[2017-09-10] MEDS: diphenhydrAMINE HCL 25 MG CAPSULE (FP) PO PRN ×2 (12:11→21:35)
[2017-09-10] MEDS: ACETAMINOPHEN 325 MG TABLET (FP) PO PRN (21:35)
[2017-09-10] MEDS: ATORVASTATIN CA 10 MG TABLET (FP) PO SCH (21:36)
[2017-09-10] MEDS: ZINC SULFATE 220 MG CAPSULE (FP) PO SCH (21:41)
[2017-09-11] MEDS: oxyCODONE HCL 5 MG TABLET PO PRN ×4 (05:38→21:34)
[2017-09-11] MEDS: diphenhydrAMINE HCL 25 MG CAPSULE (FP) PO PRN ×3 (05:38→21:33)
[2017-09-11] MEDS: dilTIAZem HCL 30 MG TABLET (FP) PO SCH ×3 (05:38→21:33)
[2017-09-11] MEDS: ACETAMINOPHEN 325 MG TABLET (FP) PO PRN ×2 (05:39→21:33)
[2017-09-11 07:57] LABS: BASOPHIL 0.5 % (0-2.0); MCH 27.3 pg (25.7-33.7); MCHC 32.2 g/dl (32.0-36.0); MEAN CELL VOLUME 84.7 fl (80-96); MEAN PLT VOLUME 7.9 fl (7.5-11.1); NEUTROPHILS 60.3 % (42.8-82.8); PLATELET COUNT 308 K/MM3 (134-434); RDW 16.5 % (11.6-15.6); WHITE BLOOD COUNT 7.8 K/mm3 (4.0-10.0)
[2017-09-11 08:02] LABS: INR 2.87 (0.82-1.09); PROTHROMBIN TIME (PATIENT) 32.4 SEC (9.98-11.88)
[2017-09-11 08:22] LABS: ANION GAP 8 (8-16); CO2 31 mmol/L (21-32); CREATININE 0.5 mg/dL (0.55-1.02); GLUCOSE,RANDOM 84 mg/dL (74-106); MAGNESIUM 1.8 mg/dL (1.8-2.4); PHOSPHOROUS 3.8 mg/dL (2.5-4.9)
[2017-09-11] MEDS ORDERED: PT OWN MED DRAWER 7, Y5N ONE ×2 (09:46→17:30)
[2017-09-11] MEDS: CHOLECALCIFEROL (VITAMIN D3) 1,000 UNIT TABLET (FP) PO SCH ×2 (10:41→21:34)
[2017-09-11] MEDS: LOSARTAN POTASSIUM 25 MG TABLET PO SCH (10:41)
[2017-09-11] MEDS: guaiFENesin 600 MG TABLET.ER (FP) PO SCH ×2 (10:41→21:33)
[2017-09-11] MEDS: CYANOCOBALAMIN 1,000 MCG TABLET (FP) PO SCH (10:41)
[2017-09-11] MEDS: METOPROLOL SUCCINATE 50 MG TAB.SR.24H (FP) PO SCH ×2 (10:41→21:33)
[2017-09-11] MEDS: ASCORBIC ACID 500 MG TABLET (FP) PO SCH (10:42)
[2017-09-11] MEDS: LEVOFLOXACIN 750 MG IVPB 150 ML IVPB SCH (10:44)
[2017-09-11] MEDS: CLOTRIMAZOLE/BETAMET DIPROP 15 GM TUBE TP SCH ×2 (10:50→21:34)
[2017-09-11] MEDS: MINERAL OIL/PETROLAT/WATER TOPICAL CREAM 454 GM JAR TP SCH (10:50)
[2017-09-11] MEDS: MUPIROCIN 2% TOPICAL OINTMENT 22 GM TUBE TP SCH ×2 (10:51→21:35)
--- NOTE | 2017-09-11 12:21 | PN ---
Progress Note, Physician Chief Complaint: Mrs Torres is without new complaints. No cp, sob, n/v. - Current Medication List Current Medications: Active Medications Acetaminophen (Tylenol -) 325 mg PO Q4H PRN PRN Reason: PAIN Last Admin: 09/11/17 05:39 Dose: 325 mg Ascorbic Acid (Vitamin C -) 1,000 mg PO DAILY [facility] Last Admin: 09/11/17 10:42 Dose: 1,000 mg Atorvastatin Calcium (Lipitor -) 5 mg PO HS [facility] Last Admin: 09/10/17 21:36 Dose: 5 mg Cholecalciferol (Vitamin D3 -) 1,000 unit PO BID [facility] Last Admin: 09/11/17 10:41 Dose: 1,000 unit Clotrimazole (Lotrisone Cream (Small Tube)) 1 applic TP BID [facility] Last Admin: 09/11/17 10:50 Dose: 1 applic Cyanocobalamin (Vitamin B12 -) 1,000 mcg PO DAILY [facility] Last Admin: 09/11/17 10:41 Dose: 1,000 mcg Diltiazem HCl (Cardizem -) 30 mg PO TID [facility] Last Admin: 09/11/17 05:38 Dose: 30 mg Diphenhydramine HCl (Benadryl -) 25 mg PO Q6H PRN PRN Reason: FOR ITCHING Last Admin: 09/11/17 10:41 Dose: 25 mg Docusate Sodium (Colace -) 100 mg PO BID PRN PRN Reason: CONSTIPATION Fluocinonide (Lidex 0.05% Cream -) 1 applic TP DAILY [facility] Guaifenesin (Mucinex -) 600 mg PO BID [facility] Last Admin: 09/11/17 10:41 Dose: 600 mg Levofloxacin (Levaquin 750 Mg Premixed Ivpb -) 150 mls @ 100 mls/hr IVPB DAILY [facility] Last Admin: 09/11/17 10:44 Dose: 100 mls/hr Loperamide HCl (Imodium -) 2 mg PO Q8H PRN PRN Reason: DIARRHEA Last Admin: 09/09/17 21:30 Dose: 2 mg Losartan Potassium (Cozaar -) 25 mg PO DAILY [facility] Last Admin: 09/11/17 10:41 Dose: 25 mg Metoprolol Succinate (Toprol Xl -) 50 mg PO BID [facility] Last Admin: 09/11/17 10:41 Dose: 50 mg Multi-Ingredient Lotion (Eucerin (Large Jar) -) 1 applic TP DAILY [facility] Last Admin: 09/11/17 10:50 Dose: 1 applic Mupirocin (Bactroban 2% Ointment -) 1 applic TP BID [facility] Last Admin: 09/11/17 10:51 Dose: 1 applic Oxycodone HCl (Roxicodone -) 7.5 mg PO Q4H PRN PRN Reason: Pain Last Admin: 09/11/17 10:43 Dose: 7.5 mg Prednisone (Deltasone -) 30 mg PO DAILY [facility] Simethicone (Mylicon -) 80 mg PO QID PRN PRN Reason: GAS Last Admin: 09/10/17 10:49 Dose: 80 mg Warfarin Sodium (Coumadin -) 4 mg PO DAILY@1800 [facility] Last Admin: 09/09/17 17:56 Dose: 4 mg Zinc Sulfate (Orazinc -) 220 mg PO HS [facility] Last Admin: 09/10/17 21:41 Dose: 220 mg - Objective Vital Signs: Vital Signs Temperature 36.8 C 09/11/17 05:40 Pulse Rate 111 H 09/11/17 05:40 Respiratory Rate 22 09/11/17 05:40 Blood Pressure 101/55 09/11/17 05:40 O2 Sat by Pulse Oximetry (%) 95 09/10/17 21:00 Constitutional: Yes: No Distress, Calm, Obese Cardiovascular: Yes: Pulse Irregular. No: Tachycardia, Gallop, Murmur, Rub Respiratory: Yes: Regular, CTA Bilaterally. No: Rales, Rhonchi, Wheezes Gastrointestinal: Yes: Normal Bowel Sounds, Soft. No: Distention, Tenderness Extremities: Yes: Erythema Edema: Yes Edema: LLE: 2+, RLE: 2+ Labs: CBC, BMP 09/11/17 06:00 09/11/17 06:00 INR, PTT INR 2.87 (0.82-1.09) H 09/11/17 06:00 Problem List - Problems (1) Cellulitis Code(s): L03.90 - CELLULITIS, UNSPECIFIED Qualifiers: Site of cellulitis: extremity Site of cellulitis of extremity: lower extremity Laterality: unspecified laterality Qualified Code(s): L03.119 - Cellulitis of unspecified part of limb; L03.119 - Cellulitis of unspecified part of limb (2) Atrial fibrillation Code(s): I48.91 - UNSPECIFIED ATRIAL FIBRILLATION Qualifiers: Atrial fibrillation type: chronic Qualified Code(s): I48.2 - Chronic atrial fibrillation; I48.2 - Chronic atrial fibrillation; I48.2 - Chronic atrial fibrillation; I48.2 - Chronic atrial fibrillation (3) Lymphedema of both lower extremities Code(s): I89.0 - LYMPHEDEMA, NOT ELSEWHERE CLASSIFIED (4) Obesity Code(s): E66.9 - OBESITY, UNSPECIFIED (5) HTN (hypertension) Code(s): I10 - ESSENTIAL (PRIMARY) HYPERTENSION (6) HLD (hyperlipidemia) Code(s): E78.5 - HYPERLIPIDEMIA, UNSPECIFIED (7) Vaginal irritation Code(s): N89.8 - OTHER SPECIFIED NONINFLAMMATORY DISORDERS OF VAGINA Assessment/Plan (1) Cellulitis Assessment/Plan: -appreciate ID, vascular surgery, and dermatology assistance -wound cultures reviewed -continue levaquin currently -trial of steroids -continue wound care per Dr Gonzalez Code(s): L03.90 - CELLULITIS, UNSPECIFIED Qualifiers: Site of cellulitis: extremity Site of cellulitis of extremity: lower extremity Laterality: unspecified laterality Qualified Code(s): L03.119 - Cellulitis of unspecified part of limb; L03.119 - Cellulitis of unspecified part of limb (2) Atrial fibrillation Assessment/Plan: -rate controlled -INR therapeutic -restart coumadin -monitor Code(s): I48.91 - UNSPECIFIED ATRIAL FIBRILLATION Qualifiers: Atrial fibrillation type: chronic Qualified Code(s): I48.2 - Chronic atrial fibrillation; I48.2 - Chronic atrial fibrillation; I48.2 - Chronic atrial fibrillation; I48.2 - Chronic atrial fibrillation (3) Lymphedema of both lower extremities Assessment/Plan: -chronic Code(s): I89.0 - LYMPHEDEMA, NOT ELSEWHERE CLASSIFIED (4) Obesity Assessment/Plan: -outpatient weight loss program per Dr Boykin -consider SNF for short term rehab Code(s): E66.9 - OBESITY, UNSPECIFIED (5) HTN (hypertension) Assessment/Plan: -well controlled -continue current regimen Code(s): I10 - ESSENTIAL (PRIMARY) HYPERTENSION (6) HLD (hyperlipidemia) Assessment/Plan: -continue statin Code(s): E78.5 - HYPERLIPIDEMIA, UNSPECIFIED (7) Vaginal irritation -gynecology consulted and appreciate assistance (8) FEN -hyperkalemia resolved
--- NOTE | 2017-09-11 12:22 | PN ---
Progress Note (short form) - Note Progress Note: Left leg improved although dermatitis now onto foot. Right leg less redness but continues to drain. Appearance now mainly dermatitis. Will ask ID to stop ABx PO Prednisone taper Topical steroid and moisturizers. Continue elevation and elastic wraps.
[2017-09-11] MEDS ORDERED: FLUOCINONIDE 0.05% CREAM (15 GM TUBE) TP SCH (12:30)
[2017-09-11] MEDS ORDERED: predniSONE 10 MG TABLET (UD) PO SCH (12:30)
--- NOTE | 2017-09-11 12:31 | PN ---
Progress Note, Physician History of Present Illness: No c/o leg pain at present No fever/ chills Afebrile WBC WNL - Current Medication List Current Medications: Active Medications Acetaminophen (Tylenol -) 325 mg PO Q4H PRN PRN Reason: PAIN Last Admin: 09/11/17 05:39 Dose: 325 mg Ascorbic Acid (Vitamin C -) 1,000 mg PO DAILY [facility] Last Admin: 09/11/17 10:42 Dose: 1,000 mg Atorvastatin Calcium (Lipitor -) 5 mg PO HS [facility] Last Admin: 09/10/17 21:36 Dose: 5 mg Cholecalciferol (Vitamin D3 -) 1,000 unit PO BID [facility] Last Admin: 09/11/17 10:41 Dose: 1,000 unit Clotrimazole (Lotrisone Cream (Small Tube)) 1 applic TP BID [facility] Last Admin: 09/11/17 10:50 Dose: 1 applic Cyanocobalamin (Vitamin B12 -) 1,000 mcg PO DAILY [facility] Last Admin: 09/11/17 10:41 Dose: 1,000 mcg Diltiazem HCl (Cardizem -) 30 mg PO TID [facility] Last Admin: 09/11/17 05:38 Dose: 30 mg Diphenhydramine HCl (Benadryl -) 25 mg PO Q6H PRN PRN Reason: FOR ITCHING Last Admin: 09/11/17 10:41 Dose: 25 mg Docusate Sodium (Colace -) 100 mg PO BID PRN PRN Reason: CONSTIPATION Fluocinonide (Lidex 0.05% Cream -) 1 applic TP DAILY [facility] Guaifenesin (Mucinex -) 600 mg PO BID [facility] Last Admin: 09/11/17 10:41 Dose: 600 mg Levofloxacin (Levaquin 750 Mg Premixed Ivpb -) 150 mls @ 100 mls/hr IVPB DAILY [facility] Last Admin: 09/11/17 10:44 Dose: 100 mls/hr Loperamide HCl (Imodium -) 2 mg PO Q8H PRN PRN Reason: DIARRHEA Last Admin: 09/09/17 21:30 Dose: 2 mg Losartan Potassium (Cozaar -) 25 mg PO DAILY [facility] Last Admin: 09/11/17 10:41 Dose: 25 mg Metoprolol Succinate (Toprol Xl -) 50 mg PO BID [facility] Last Admin: 09/11/17 10:41 Dose: 50 mg Multi-Ingredient Lotion (Eucerin (Large Jar) -) 1 applic TP DAILY [facility] Last Admin: 09/11/17 10:50 Dose: 1 applic Mupirocin (Bactroban 2% Ointment -) 1 applic TP BID [facility] Last Admin: 09/11/17 10:51 Dose: 1 applic Oxycodone HCl (Roxicodone -) 7.5 mg PO Q4H PRN PRN Reason: Pain Last Admin: 09/11/17 10:43 Dose: 7.5 mg Prednisone (Deltasone -) 30 mg PO DAILY [facility] Simethicone (Mylicon -) 80 mg PO QID PRN PRN Reason: GAS Last Admin: 09/10/17 10:49 Dose: 80 mg Warfarin Sodium (Coumadin -) 4 mg PO DAILY@1800 [facility] Last Admin: 09/09/17 17:56 Dose: 4 mg Zinc Sulfate (Orazinc -) 220 mg PO HS [facility] Last Admin: 09/10/17 21:41 Dose: 220 mg - Objective Vital Signs: Vital Signs Temperature 98.2 F 09/11/17 05:40 Pulse Rate 111 H 09/11/17 05:40 Respiratory Rate 22 09/11/17 05:40 Blood Pressure 101/55 09/11/17 05:40 O2 Sat by Pulse Oximetry (%) 95 09/10/17 21:00 Constitutional: Yes: Obese Eyes: Yes: Conjunctiva Clear Cardiovascular: Yes: Regular Rate and Rhythm, S1, S2 Respiratory: Yes: CTA Bilaterally Gastrointestinal: Yes: Normal Bowel Sounds, Soft, Abdomen, Obese, Tenderness Extremities: Yes: Other (LE remain erythematous No drainage noted) Labs: CBC, BMP 09/11/17 06:00 09/11/17 06:00 INR, PTT INR 2.87 (0.82-1.09) H 09/11/17 06:00 Assessment/Plan Recurrent bilateral LE cellulitis Multiple antibiotic allergies Now on levaquin No significant improvement ? Dermatology follow up. ? Trial of systemic steroids
[2017-09-11] MEDS: predniSONE 20 MG TABLET (UD) PO SCH (14:32)
[2017-09-11] MEDS: WARFARIN NA 2 MG TABLET (UD) PO SCH (18:52)
[2017-09-11] MEDS: ZINC SULFATE 220 MG CAPSULE (FP) PO SCH (21:33)
[2017-09-11] MEDS: ATORVASTATIN CA 10 MG TABLET (FP) PO SCH (21:33)
[2017-09-12] MEDS: dilTIAZem HCL 30 MG TABLET (FP) PO SCH ×3 (06:04→21:44)
[2017-09-12 08:47] LABS: BASOPHIL 0.4 % (0-2.0); EOSINOPHIL 0.1 % (0-4.5); MCH 26.8 pg (25.7-33.7); MCHC 31.4 g/dl (32.0-36.0); MEAN CELL VOLUME 85.5 fl (80-96); MEAN PLT VOLUME 7.7 fl (7.5-11.1); PLATELET COUNT 288 K/MM3 (134-434); RDW 16.3 % (11.6-15.6); WHITE BLOOD COUNT 7.5 K/mm3 (4.0-10.0)
[2017-09-12 08:56] LABS: INR 2.16 (0.82-1.09); PROTHROMBIN TIME (PATIENT) 24.4 SEC (9.98-11.88)
[2017-09-12 09:34] LABS: ANION GAP 8 (8-16); CALCIUM 8.3 mg/dL (8.5-10.1); CO2 31 mmol/L (21-32); CREATININE 0.5 mg/dL (0.55-1.02); GLUCOSE,RANDOM 91 mg/dL (74-106); PHOSPHOROUS 3.5 mg/dL (2.5-4.9)
[2017-09-12] MEDS: LOSARTAN POTASSIUM 25 MG TABLET PO SCH (10:41)
[2017-09-12] MEDS: diphenhydrAMINE HCL 25 MG CAPSULE (FP) PO PRN (10:42)
[2017-09-12] MEDS: guaiFENesin 600 MG TABLET.ER (FP) PO SCH ×2 (10:42→21:42)
[2017-09-12] MEDS: ASCORBIC ACID 500 MG TABLET (FP) PO SCH (10:42)
[2017-09-12] MEDS: CYANOCOBALAMIN 1,000 MCG TABLET (FP) PO SCH (10:42)
[2017-09-12] MEDS: METOPROLOL SUCCINATE 50 MG TAB.SR.24H (FP) PO SCH ×2 (10:42→21:44)
[2017-09-12] MEDS: CHOLECALCIFEROL (VITAMIN D3) 1,000 UNIT TABLET (FP) PO SCH ×2 (10:42→21:42)
[2017-09-12] MEDS: predniSONE 20 MG TABLET (UD) PO SCH (10:43)
[2017-09-12] MEDS: oxyCODONE HCL 5 MG TABLET PO PRN ×2 (10:45→15:56)
[2017-09-12] MEDS: MUPIROCIN 2% TOPICAL OINTMENT 22 GM TUBE TP SCH ×2 (10:50→21:45)
[2017-09-12] MEDS: MINERAL OIL/PETROLAT/WATER TOPICAL CREAM 454 GM JAR TP SCH (10:51)
[2017-09-12] MEDS: LEVOFLOXACIN 750 MG IVPB 150 ML IVPB SCH (10:53)
--- NOTE | 2017-09-12 12:37 | PN ---
Progress Note, Physician Chief Complaint: Mrs Torres is without new complaints. No cp, sob, n/v. Patient is concerned about being sent home too early, saying she does not want this problem to happen again - Current Medication List Current Medications: Active Medications Acetaminophen (Tylenol -) 325 mg PO Q4H PRN PRN Reason: PAIN Last Admin: 09/11/17 21:33 Dose: 325 mg Ascorbic Acid (Vitamin C -) 1,000 mg PO DAILY [facility] Last Admin: 09/12/17 10:42 Dose: 1,000 mg Atorvastatin Calcium (Lipitor -) 5 mg PO HS [facility] Last Admin: 09/11/17 21:33 Dose: 5 mg Cholecalciferol (Vitamin D3 -) 1,000 unit PO BID [facility] Last Admin: 09/12/17 10:42 Dose: 1,000 unit Clotrimazole (Lotrisone Cream (Small Tube)) 1 applic TP BID [facility] Last Admin: 09/11/17 21:34 Dose: Not Given Cyanocobalamin (Vitamin B12 -) 1,000 mcg PO DAILY [facility] Last Admin: 09/12/17 10:42 Dose: 1,000 mcg Diltiazem HCl (Cardizem -) 30 mg PO TID [facility] Last Admin: 09/12/17 06:04 Dose: 30 mg Diphenhydramine HCl (Benadryl -) 25 mg PO Q6H PRN PRN Reason: FOR ITCHING Last Admin: 09/12/17 10:42 Dose: 25 mg Docusate Sodium (Colace -) 100 mg PO BID PRN PRN Reason: CONSTIPATION Fluocinonide (Lidex 0.05% Cream -) 1 applic TP DAILY [facility] Guaifenesin (Mucinex -) 600 mg PO BID [facility] Last Admin: 09/12/17 10:42 Dose: 600 mg Levofloxacin (Levaquin 750 Mg Premixed Ivpb -) 150 mls @ 100 mls/hr IVPB DAILY [facility] Last Admin: 09/12/17 10:53 Dose: 100 mls/hr Loperamide HCl (Imodium -) 2 mg PO Q8H PRN PRN Reason: DIARRHEA Last Admin: 09/09/17 21:30 Dose: 2 mg Losartan Potassium (Cozaar -) 25 mg PO DAILY [facility] Last Admin: 09/12/17 10:41 Dose: 25 mg Metoprolol Succinate (Toprol Xl -) 50 mg PO BID [facility] Last Admin: 09/12/17 10:42 Dose: 50 mg Multi-Ingredient Lotion (Eucerin (Large Jar) -) 1 applic TP DAILY [facility] Last Admin: 09/12/17 10:51 Dose: 1 applic Mupirocin (Bactroban 2% Ointment -) 1 applic TP BID [facility] Last Admin: 09/12/17 10:50 Dose: 1 applic Oxycodone HCl (Roxicodone -) 7.5 mg PO Q4H PRN PRN Reason: Pain Last Admin: 09/12/17 10:45 Dose: 7.5 mg Prednisone (Deltasone -) 30 mg PO DAILY [facility] Stop: 09/13/17 10:01 Last Admin: 09/12/17 10:43 Dose: 30 mg Prednisone (Deltasone -) 20 mg PO DAILY [facility] Stop: 09/16/17 10:01 Prednisone (Deltasone -) 10 mg PO DAILY [facility] Stop: 09/19/17 10:01 Simethicone (Mylicon -) 80 mg PO QID PRN PRN Reason: GAS Last Admin: 09/10/17 10:49 Dose: 80 mg Warfarin Sodium (Coumadin -) 5 mg PO DAILY@1800 [facility] Zinc Sulfate (Orazinc -) 220 mg PO HS [facility] Last Admin: 09/11/17 21:33 Dose: 220 mg - Objective Vital Signs: Vital Signs Temperature 36.7 C 09/12/17 06:03 Pulse Rate 106 H 09/12/17 06:03 Respiratory Rate 18 09/12/17 06:03 Blood Pressure 120/64 09/12/17 06:03 O2 Sat by Pulse Oximetry (%) 90 L 09/11/17 21:00 Constitutional: Yes: No Distress, Calm, Obese Cardiovascular: Yes: Regular Rate and Rhythm. No: Gallop, Murmur, Rub Respiratory: Yes: Regular, CTA Bilaterally. No: Rales, Rhonchi, Wheezes Gastrointestinal: Yes: Normal Bowel Sounds, Soft. No: Distention, Tenderness Extremities: Yes: Erythema Edema: Yes Edema: LLE: 2+, RLE: 2+ Labs: CBC, BMP 09/12/17 06:00 09/12/17 06:00 INR, PTT INR 2.16 (0.82-1.09) H 09/12/17 06:00 Problem List - Problems (1) Cellulitis Code(s): L03.90 - CELLULITIS, UNSPECIFIED Qualifiers: Site of cellulitis: extremity Site of cellulitis of extremity: lower extremity Laterality: unspecified laterality Qualified Code(s): L03.119 - Cellulitis of unspecified part of limb; L03.119 - Cellulitis of unspecified part of limb (2) Atrial fibrillation Code(s): I48.91 - UNSPECIFIED ATRIAL FIBRILLATION Qualifiers: Atrial fibrillation type: chronic Qualified Code(s): I48.2 - Chronic atrial fibrillation; I48.2 - Chronic atrial fibrillation; I48.2 - Chronic atrial fibrillation; I48.2 - Chronic atrial fibrillation (3) Lymphedema of both lower extremities Code(s): I89.0 - LYMPHEDEMA, NOT ELSEWHERE CLASSIFIED (4) Obesity Code(s): E66.9 - OBESITY, UNSPECIFIED (5) HTN (hypertension) Code(s): I10 - ESSENTIAL (PRIMARY) HYPERTENSION (6) HLD (hyperlipidemia) Code(s): E78.5 - HYPERLIPIDEMIA, UNSPECIFIED (7) Vaginal irritation Code(s): N89.8 - OTHER SPECIFIED NONINFLAMMATORY DISORDERS OF VAGINA Assessment/Plan (1) Cellulitis Assessment/Plan: -appreciate ID, vascular surgery, and dermatology assistance -wound cultures reviewed -michael back d/w ID -continue prednisone Code(s): L03.90 - CELLULITIS, UNSPECIFIED Qualifiers: Site of cellulitis: extremity Site of cellulitis of extremity: lower extremity Laterality: unspecified laterality Qualified Code(s): L03.119 - Cellulitis of unspecified part of limb; L03.119 - Cellulitis of unspecified part of limb (2) Atrial fibrillation Assessment/Plan: -rate controlled -INR therapeutic -increase coumadin back to 5mg as low therapeutic -monitor Code(s): I48.91 - UNSPECIFIED ATRIAL FIBRILLATION Qualifiers: Atrial fibrillation type: chronic Qualified Code(s): I48.2 - Chronic atrial fibrillation; I48.2 - Chronic atrial fibrillation; I48.2 - Chronic atrial fibrillation; I48.2 - Chronic atrial fibrillation (3) Lymphedema of both lower extremities Assessment/Plan: -chronic Code(s): I89.0 - LYMPHEDEMA, NOT ELSEWHERE CLASSIFIED (4) Obesity Assessment/Plan: -outpatient weight loss program per Dr Boykin -consider SNF for short term rehab Code(s): E66.9 - OBESITY, UNSPECIFIED (5) HTN (hypertension) Assessment/Plan: -well controlled -continue current regimen Code(s): I10 - ESSENTIAL (PRIMARY) HYPERTENSION (6) HLD (hyperlipidemia) Assessment/Plan: -continue statin Code(s): E78.5 - HYPERLIPIDEMIA, UNSPECIFIED (7) Vaginal irritation -gynecology consulted and appreciate assistance (8) FEN -hyperkalemia resolved Dispo -patient very concerned about discharge, suspect some secondary gain staying in the hospital -stated that if stable or improves on steroids and stopping antibiotics, she will be ready for discharge in [address] Gonzalez recommendations -patient kept trying to re-direct and say "I won't be going home until at least next week right" -reiterated that she would benefit from short time at SNF, currently refusing -explained that this is a chronic problem that will need continued treatment as an outpatient and she may need readmission -even after lengthy discussion, patient very reluctant over discharge planning
[2017-09-12] MEDS: FLUOCINONIDE 0.05% CREAM (60 GM TUBE) TP SCH (15:25)
[2017-09-12] MEDS: CLOTRIMAZOLE/BETAMET DIPROP 15 GM TUBE TP SCH ×2 (15:26→21:45)
--- NOTE | 2017-09-12 15:54 | PN ---
Progress Note (short form) - Note Progress Note: no new complaints still alot of burning when legs are unwrapped Vital Signs Period Temp Pulse Resp BP Sys/William Pulse Ox Last 24 Hr 98.0 F-98.7 F 103-128 18-20 108-120/44-66 90-96 cor-rrr lungs clear abd soft, nt ext +stasis dermatitis of both legs right greater then left dry, scaly CBC, BMP 09/12/17 06:00 09/12/17 06:00 a/p stasis dermatitis would agree with d/c antibiotics and observe d/w Dr Griffith she may benefit from SNF-d/w patient- she is reluctant
[2017-09-12] MEDS ORDERED: WARFARIN NA 5 MG TABLET (UD) PO SCH (18:00)
[2017-09-12] MEDS: ATORVASTATIN CA 10 MG TABLET (FP) PO SCH (21:41)
[2017-09-12] MEDS: ZINC SULFATE 220 MG CAPSULE (FP) PO SCH (21:42)
[2017-09-13] MEDS: dilTIAZem HCL 30 MG TABLET (FP) PO SCH ×3 (06:13→21:31)
[2017-09-13] MEDS: LEVOFLOXACIN 750 MG IVPB 150 ML IVPB SCH (09:48)
[2017-09-13] MEDS: guaiFENesin 600 MG TABLET.ER (FP) PO SCH ×2 (09:57→21:27)
[2017-09-13] MEDS: predniSONE 20 MG TABLET (UD) PO SCH (09:57)
[2017-09-13] MEDS: LOSARTAN POTASSIUM 25 MG TABLET PO SCH (09:57)
[2017-09-13] MEDS: CHOLECALCIFEROL (VITAMIN D3) 1,000 UNIT TABLET (FP) PO SCH ×2 (09:57→21:27)
[2017-09-13] MEDS: METOPROLOL SUCCINATE 50 MG TAB.SR.24H (FP) PO SCH ×2 (09:58→21:31)
[2017-09-13] MEDS: CYANOCOBALAMIN 1,000 MCG TABLET (FP) PO SCH (09:58)
[2017-09-13] MEDS: ASCORBIC ACID 500 MG TABLET (FP) PO SCH (09:58)
[2017-09-13] MEDS: MINERAL OIL/PETROLAT/WATER TOPICAL CREAM 454 GM JAR TP SCH (10:01)
[2017-09-13] MEDS: FLUOCINONIDE 0.05% CREAM (60 GM TUBE) TP SCH (10:02)
[2017-09-13] MEDS: CLOTRIMAZOLE/BETAMET DIPROP 15 GM TUBE TP SCH ×2 (10:03→21:33)
[2017-09-13] MEDS: MUPIROCIN 2% TOPICAL OINTMENT 22 GM TUBE TP SCH ×2 (10:04→21:32)
[2017-09-13 10:23] LABS: BASOPHIL 0.5 % (0-2.0); EOSINOPHIL 0.7 % (0-4.5); MCH 26.6 pg (25.7-33.7); MCHC 31.2 g/dl (32.0-36.0); MEAN CELL VOLUME 85.3 fl (80-96); MEAN PLT VOLUME 7.3 fl (7.5-11.1); NEUTROPHILS 69.7 % (42.8-82.8); PLATELET COUNT 280 K/MM3 (134-434); RDW 16.5 % (11.6-15.6); WHITE BLOOD COUNT 6.8 K/mm3 (4.0-10.0)
[2017-09-13] MEDS ORDERED: PT OWN MED DRAWER 7, Y5N ONE (10:42)
[2017-09-13 10:50] LABS: ANION GAP 3 (8-16); CO2 37 mmol/L (21-32); CREATININE 0.6 mg/dL (0.55-1.02); GLUCOSE,RANDOM 95 mg/dL (74-106); MAGNESIUM 1.9 mg/dL (1.8-2.4); PHOSPHOROUS 2.9 mg/dL (2.5-4.9)
[2017-09-13 11:31] LABS: INR 1.68 (0.82-1.09)
--- NOTE | 2017-09-13 11:42 | PN ---
Progress Note, Physician Chief Complaint: Mrs Torres is without new complaints. No cp, sob, n/v. - Current Medication List Current Medications: Active Medications Acetaminophen (Tylenol -) 325 mg PO Q4H PRN PRN Reason: PAIN Last Admin: 09/11/17 21:33 Dose: 325 mg Ascorbic Acid (Vitamin C -) 1,000 mg PO DAILY [facility] Last Admin: 09/13/17 09:58 Dose: 1,000 mg Atorvastatin Calcium (Lipitor -) 5 mg PO HS [facility] Last Admin: 09/12/17 21:41 Dose: 5 mg Cholecalciferol (Vitamin D3 -) 1,000 unit PO BID [facility] Last Admin: 09/13/17 09:57 Dose: 1,000 unit Clotrimazole (Lotrisone Cream (Small Tube)) 1 applic TP BID [facility] Last Admin: 09/13/17 10:03 Dose: 1 applic Cyanocobalamin (Vitamin B12 -) 1,000 mcg PO DAILY [facility] Last Admin: 09/13/17 09:58 Dose: 1,000 mcg Diltiazem HCl (Cardizem -) 30 mg PO TID [facility] Last Admin: 09/13/17 06:13 Dose: 30 mg Diphenhydramine HCl (Benadryl -) 25 mg PO Q6H PRN PRN Reason: FOR ITCHING Last Admin: 09/12/17 10:42 Dose: 25 mg Docusate Sodium (Colace -) 100 mg PO BID PRN PRN Reason: CONSTIPATION Fluocinonide (Lidex 0.05% Cream -) 1 applic TP DAILY [facility] Last Admin: 09/13/17 10:02 Dose: 1 applic Guaifenesin (Mucinex -) 600 mg PO BID [facility] Last Admin: 09/13/17 09:57 Dose: 600 mg Levofloxacin (Levaquin 750 Mg Premixed Ivpb -) 150 mls @ 100 mls/hr IVPB DAILY [facility] Last Admin: 09/13/17 09:48 Dose: Not Given Loperamide HCl (Imodium -) 2 mg PO Q8H PRN PRN Reason: DIARRHEA Last Admin: 09/09/17 21:30 Dose: 2 mg Losartan Potassium (Cozaar -) 25 mg PO DAILY [facility] Last Admin: 09/13/17 09:57 Dose: 25 mg Metoprolol Succinate (Toprol Xl -) 50 mg PO BID [facility] Last Admin: 10/20/17 09:58 Dose: 50 mg Multi-Ingredient Lotion (Eucerin (Large Jar) -) 1 applic TP DAILY [facility] Last Admin: 09/13/17 10:01 Dose: 1 applic Mupirocin (Bactroban 2% Ointment -) 1 applic TP BID [facility] Last Admin: 09/13/17 10:04 Dose: 1 applic Oxycodone HCl (Roxicodone -) 7.5 mg PO Q4H PRN PRN Reason: Pain Last Admin: 09/12/17 15:56 Dose: 7.5 mg Prednisone (Deltasone -) 20 mg PO DAILY [facility] Stop: 09/16/17 10:01 Prednisone (Deltasone -) 10 mg PO DAILY [facility] Stop: 09/19/17 10:01 Simethicone (Mylicon -) 80 mg PO QID PRN PRN Reason: GAS Last Admin: 09/10/17 10:49 Dose: 80 mg Warfarin Sodium (Coumadin -) 5 mg PO DAILY@1800 [facility] Last Admin: 09/12/17 17:12 Dose: 5 mg Zinc Sulfate (Orazinc -) 220 mg PO HS [facility] Last Admin: 09/12/17 21:42 Dose: 220 mg - Objective Vital Signs: Vital Signs Temperature 36.6 C 09/13/17 10:00 Pulse Rate 92 H 09/13/17 10:00 Respiratory Rate 18 09/13/17 10:00 Blood Pressure 109/82 09/13/17 10:00 O2 Sat by Pulse Oximetry (%) 96 09/13/17 09:00 Constitutional: Yes: No Distress, Calm, Obese Cardiovascular: Yes: Regular Rate and Rhythm. No: Gallop, Murmur, Rub Respiratory: Yes: Regular, CTA Bilaterally. No: Rales, Rhonchi, Wheezes Gastrointestinal: Yes: Normal Bowel Sounds, Soft. No: Distention, Tenderness Extremities: Yes: Erythema Edema: Yes Edema: LLE: 3+, RLE: 3+ Labs: CBC, BMP 09/13/17 10:05 09/13/17 10:05 INR, PTT INR 1.68 (0.82-1.09) H 09/13/17 10:05 Problem List - Problems (1) Cellulitis Code(s): L03.90 - CELLULITIS, UNSPECIFIED Qualifiers: Site of cellulitis: extremity Site of cellulitis of extremity: lower extremity Laterality: unspecified laterality Qualified Code(s): L03.119 - Cellulitis of unspecified part of limb; L03.119 - Cellulitis of unspecified part of limb (2) Atrial fibrillation Code(s): I48.91 - UNSPECIFIED ATRIAL FIBRILLATION Qualifiers: Atrial fibrillation type: chronic Qualified Code(s): I48.2 - Chronic atrial fibrillation; I48.2 - Chronic atrial fibrillation; I48.2 - Chronic atrial fibrillation; I48.2 - Chronic atrial fibrillation (3) Lymphedema of both lower extremities Code(s): I89.0 - LYMPHEDEMA, NOT ELSEWHERE CLASSIFIED (4) Obesity Code(s): E66.9 - OBESITY, UNSPECIFIED (5) HTN (hypertension) Code(s): I10 - ESSENTIAL (PRIMARY) HYPERTENSION (6) HLD (hyperlipidemia) Code(s): E78.5 - HYPERLIPIDEMIA, UNSPECIFIED (7) Vaginal irritation Code(s): N89.8 - OTHER SPECIFIED NONINFLAMMATORY DISORDERS OF VAGINA Assessment/Plan (1) Cellulitis Assessment/Plan: -appreciate ID, vascular surgery, and dermatology assistance -wound cultures reviewed -off all antibiotics -continue prednisone Code(s): L03.90 - CELLULITIS, UNSPECIFIED Qualifiers: Site of cellulitis: extremity Site of cellulitis of extremity: lower extremity Laterality: unspecified laterality Qualified Code(s): L03.119 - Cellulitis of unspecified part of limb; L03.119 - Cellulitis of unspecified part of limb (2) Atrial fibrillation Assessment/Plan: -rate controlled -INR subtherapeutic -increase coumadin to 6mg, recheck in am Code(s): I48.91 - UNSPECIFIED ATRIAL FIBRILLATION Qualifiers: Atrial fibrillation type: chronic Qualified Code(s): I48.2 - Chronic atrial fibrillation; I48.2 - Chronic atrial fibrillation; I48.2 - Chronic atrial fibrillation; I48.2 - Chronic atrial fibrillation (3) Lymphedema of both lower extremities Assessment/Plan: -chronic Code(s): I89.0 - LYMPHEDEMA, NOT ELSEWHERE CLASSIFIED (4) Obesity Assessment/Plan: -outpatient weight loss program per Dr Boykin Code(s): E66.9 - OBESITY, UNSPECIFIED (5) HTN (hypertension) Assessment/Plan: -well controlled -continue current regimen Code(s): I10 - ESSENTIAL (PRIMARY) HYPERTENSION (6) HLD (hyperlipidemia) Assessment/Plan: -continue statin Code(s): E78.5 - HYPERLIPIDEMIA, UNSPECIFIED (7) Vaginal irritation -gynecology consulted and appreciate assistance (8) FEN -hyperkalemia resolved Dispo -discharge tomorrow
--- NOTE | 2017-09-13 16:40 | DS ---
Physical Examination Vital Signs: Vital Signs Temperature 36.7 C 09/13/17 14:16 Pulse Rate 66 09/13/17 14:16 Respiratory Rate 16 09/13/17 14:16 Blood Pressure 96/65 09/13/17 14:16 O2 Sat by Pulse Oximetry (%) 96 09/13/17 09:00 Constitutional: Yes: No Distress, Calm, Obese Cardiovascular: Yes: Pulse Irregular. No: Tachycardia, Gallop, Murmur, Rub Respiratory: Yes: Regular, CTA Bilaterally. No: Rales, Rhonchi, Wheezes Gastrointestinal: Yes: Normal Bowel Sounds, Soft. No: Distention, Tenderness Extremities: Yes: Erythema Edema: Yes Edema: LLE: 2+, RLE: 2+ Labs: CBC, BMP 09/13/17 10:05 09/13/17 10:05 Discharge Summary Reason For Visit: CELLULITIS Current Active Problems Atrial fibrillation (Acute) Cellulitis (Acute) Diarrhea (Acute) Drug rash (Acute) HLD (hyperlipidemia) (Acute) Obesity hypoventilation syndrome (Acute) Penicillin allergy (Acute) Supratherapeutic INR (Acute) Vaginal irritation (Acute) Vulvovaginitis (Acute) Hospital Course: (1) Cellulitis Code(s): L03.90 - CELLULITIS, UNSPECIFIED Qualifiers: Site of cellulitis: extremity Site of cellulitis of extremity: lower extremity Laterality: unspecified laterality Qualified Code(s): L03.119 - Cellulitis of unspecified part of limb; L03.119 - Cellulitis of unspecified part of limb (2) Atrial fibrillation Code(s): I48.91 - UNSPECIFIED ATRIAL FIBRILLATION Qualifiers: Atrial fibrillation type: chronic Qualified Code(s): I48.2 - Chronic atrial fibrillation; I48.2 - Chronic atrial fibrillation; I48.2 - Chronic atrial fibrillation; I48.2 - Chronic atrial fibrillation (3) Lymphedema of both lower extremities Code(s): I89.0 - LYMPHEDEMA, NOT ELSEWHERE CLASSIFIED (4) Obesity Code(s): E66.9 - OBESITY, UNSPECIFIED (5) HTN (hypertension) Code(s): I10 - ESSENTIAL (PRIMARY) HYPERTENSION (6) HLD (hyperlipidemia) Code(s): E78.5 - HYPERLIPIDEMIA, UNSPECIFIED (7) Vaginal irritation Code(s): N89.8 - OTHER SPECIFIED NONINFLAMMATORY DISORDERS OF VAGINA Mrs Torres is a 72 year old female who comes in with cellulitis secondary to lymphedema. She finished a full course of antibiotics while here, she was followed by ID for this. Dr Gonzalez was consulted and continued her wound care. She was seen by dermatology and recommended steroids. After finishing her antibiotics, she still had erythema. Erythema more secondary to dermatitis. She was placed on steroids and improved. She is currently safe for discharge home with home health for wound care, aid is needed as patient cannot spend long periods of time on her feet. Condition: Good - Instructions Diet, Activity, Other Instructions: resume previous diet and activity. Wound care per Dr Gonzalez Referrals: Shirley Fraga MD [Staff Physician] - Mike Boykin MD [Staff Physician] - Tejas Gonzalez MD [Staff Physician] - Disposition: [facility]/HOME HEALTH CARE - Home Medications Comprehensive Discharge Medication List: Ambulatory Orders Ascorbate Calcium [Vitamin C] 1,000 mg PO DAILY 08/30/15 Cholecalciferol (Vitamin D3) [Vitamin D3] 1,000 unit PO BID 08/30/15 Cyanocobalamin [Vitamin B12 -] 1,000 mcg PO DAILY 08/30/15 Oxycodone/APAP [Percocet - Must Order Individual Components] 1 each NR QID PRN 08/30/15 Simvastatin 10 mg PO HS 08/30/15 Guaifenesin [Mucinex] 600 mg PO DAILY 06/20/17 Multivit-Min/FA/Lycopen/Lutein [Centrum Silver Tablet] 1 each PO DAILY 06/20/17 Warfarin Na [Coumadin -] 6 mg PO DAILY 06/20/17 Metoprolol Succinate [Toprol XL -] 50 mg PO BID #60 tab.sr 06/25/17 Docusate Sodium [Colace -] 1 cap PO DAILY PRN 07/12/17 Fish Oil/Borage/Flax/Om3,6,9#1 [Madeline 3-6-9 1,200 mg Softgel] 1 cap PO DAILY Losartan Potassium [Cozaar -] 25 mg PO DAILY #30 tablet 08/06/17 Diltiazem [Cardizem -] 30 mg PO TID 08/29/17 Furosemide [Lasix] 40 mg PO ASDIR PRN 08/29/17 Potassium Chloride [Klor-Con 10] 10 meq PO DAILY PRN 08/29/17 Prednisone [Deltasone -] 10 mg PO ASDIR #18 tab 09/13/17
[2017-09-13] MEDS ORDERED: WARFARIN NA 3 MG TABLET PO SCH (18:00)
[2017-09-13] MEDS: ZINC SULFATE 220 MG CAPSULE (FP) PO SCH (21:27)
[2017-09-13] MEDS: ATORVASTATIN CA 10 MG TABLET (FP) PO SCH (21:27)
[2017-09-13] MEDS: diphenhydrAMINE HCL 25 MG CAPSULE (FP) PO PRN (21:37)
[2017-09-13] MEDS: oxyCODONE HCL 5 MG TABLET PO PRN (21:37)
[2017-09-14] MEDS: dilTIAZem HCL 30 MG TABLET (FP) PO SCH (05:50)
[2017-09-14 08:44] LABS: INR 1.44 (0.82-1.09); PROTHROMBIN TIME (PATIENT) 16.3 SEC (9.98-11.88)
[2017-09-14] MEDS: guaiFENesin 600 MG TABLET.ER (FP) PO SCH (09:02)
[2017-09-14] MEDS: CHOLECALCIFEROL (VITAMIN D3) 1,000 UNIT TABLET (FP) PO SCH (09:02)
[2017-09-14] MEDS: ASCORBIC ACID 500 MG TABLET (FP) PO SCH (09:02)
[2017-09-14] MEDS: LOSARTAN POTASSIUM 25 MG TABLET PO SCH (09:02)
[2017-09-14] MEDS: MUPIROCIN 2% TOPICAL OINTMENT 22 GM TUBE TP SCH (09:02)
[2017-09-14] MEDS: CYANOCOBALAMIN 1,000 MCG TABLET (FP) PO SCH (09:02)
[2017-09-14] MEDS: METOPROLOL SUCCINATE 50 MG TAB.SR.24H (FP) PO SCH (09:02)
[2017-09-14] MEDS: CLOTRIMAZOLE/BETAMET DIPROP 15 GM TUBE TP SCH (09:03)
[2017-09-14] MEDS: FLUOCINONIDE 0.05% CREAM (60 GM TUBE) TP SCH (09:03)
[2017-09-14] MEDS: MINERAL OIL/PETROLAT/WATER TOPICAL CREAM 454 GM JAR TP SCH (09:03)
[2017-09-14] MEDS ORDERED: predniSONE 20 MG TABLET (UD) PO SCH (10:00)
[2017-09-14 10:43] VITALS: BP 130/64; PULSE 96; TEMP 97.6
[2017-09-17] MEDS ORDERED: predniSONE 10 MG TABLET (UD) PO SCH (10:00)
== END 2017-09-14 09:56 | disposition home health service (06) | DRG 603 ==
LOC: JER 16:46 → JERBED 22:05 → J8W 08-30 01:30
PROVIDERS: ADMIT Internal Medicine; ATTEND Internal Medicine
DX: L03.115 Cellulitis of right lower limb (principal); Z68.42 Body mass index [BMI] 45.0-49.9, adult; E87.2 Acidosis; L03.116 Cellulitis of left lower limb; E66.01 Morbid (severe) obesity due to excess calories; E78.5 Hyperlipidemia, unspecified; Z88.0 Allergy status to penicillin; N76.0 Acute vaginitis; R79.1 Abnormal coagulation profile; I48.2 Chronic atrial fibrillation; I89.0 Lymphedema, not elsewhere classified; I10 Essential (primary) hypertension; N89.8 Other specified noninflammatory disorders of vagina; L53.9 Erythematous condition, unspecified; L30.9 Dermatitis, unspecified; E87.5 Hyperkalemia; R19.7 Diarrhea, unspecified; I87.2 Venous insufficiency (chronic) (peripheral); G47.33 Obstructive sleep apnea (adult) (pediatric); J44.9 Chronic obstructive pulmonary disease, unspecified; M79.7 Fibromyalgia; M85.80 Other specified disorders of bone density and structure, unspecified site
CPT/HCPCS: 36415; 71010-TC; 80048; 80053; 82803; 83036; 83605; 83735; 84100; 84484; 85025; 85610; 85651; 85730; 86140; 87040; 87070; 87086; 87186; 87205; 87324; 87449; 93005; 93010; 99284-25; J3243

== ENCOUNTER 2017-11-10 16:18 | Inpatient (IN) | payer OTHER, MEDICARE ==
[2017-11-10 16:25] VITALS: BMI 46.3
--- NOTE | 2017-11-10 17:30 | PDOC ---
History of Present Illness - General Chief Complaint: Wound Infection Stated Complaint: LEG PAIN Time Seen by Provider: 11/10/17 17:29 - History of Present Illness Initial Comments: 72 year old female with PMH of Afib (on coumadin and diltiazem ), OA, RA, Sjogren's , HTN, COPD, and venous insufficiency presenting with two right lower extremity pain, weeping, swelling, and erythema. It was getting better on steroids while she was in the hospital and then began to return after she started tapering her steroids. She has been soaking through dressings at home with occasionally bloody, non-malodorous, clear fluid. She denies fevers, chills , nausea, vomiting, diarrhea, or sick symptoms. She has had an infection in the same leg before that she states MRSA positive in the past . Her PCP is Dr. Workman. 11/10/17 18:44 Past History - Past Medical History Allergies/Adverse Reactions: Allergies Allergy/AdvReac Type Severity Reaction Status Date / Time Penicillins Allergy Severe Swelling Verified 11/10/17 16:21 clindamycin Allergy Mild Rash Verified 11/10/17 16:21 vancomycin AdvReac Mild Itching Verified 11/10/17 16:21 adhesive tape AdvReac "RIPS MY Verified 11/10/17 16:21 SKIN" Home Medications: Ambulatory Orders Ascorbate Calcium [Vitamin C] 1,000 mg PO DAILY 08/30/15 Cholecalciferol (Vitamin D3) [Vitamin D3] 1,000 unit PO BID 08/30/15 Cyanocobalamin [Vitamin B12 -] 1,000 mcg PO DAILY 08/30/15 Oxycodone/APAP [Percocet - Must Order Individual Components] 1 each NR QID PRN 08/30/15 Simvastatin 10 mg PO HS 08/30/15 Guaifenesin [Mucinex] 600 mg PO DAILY 06/20/17 Multivit-Min/FA/Lycopen/Lutein [Centrum Silver Tablet] 1 each PO DAILY 06/20/17 Warfarin Na [Coumadin -] 6 mg PO DAILY 06/20/17 Metoprolol Succinate [Toprol XL -] 50 mg PO BID #60 tab.sr 06/25/17 Docusate Sodium [Colace -] 1 cap PO DAILY PRN 07/12/17 Fish Oil/Borage/Flax/Om3,6,9#1 [[place] 3-6-9 1,200 mg Softgel] 1 cap PO DAILY Losartan Potassium [Cozaar -] 25 mg PO DAILY #30 tablet 08/06/17 Diltiazem [Cardizem -] 30 mg PO TID 08/29/17 Furosemide [Lasix] 40 mg PO ASDIR PRN 08/29/17 Potassium Chloride [Klor-Con 10] 10 meq PO DAILY PRN 08/29/17 Prednisone [Deltasone -] 10 mg PO ASDIR #18 tab 09/13/17 Anemia: No Cardiac Disorders: Yes (ATRIAL FIBRILLATION) COPD: Yes HTN: Yes Hypercholesterolemia: Yes Thyroid Disease: Yes (LEFT THYROID LUMP) - Surgical History Orthopedic Surgery: Yes (BILATERAL KNEE REPLACEMENT) - Immunization History Immunization Up to Date: No - Suicide/Smoking/Psychosocial Hx Smoking History: Never smoked Have you smoked in the past 12 months: No Number of Cigarettes Smoked Daily: 0 If you are a former smoker, when did you quit?: 1985 Cigars Per Day: 0 'Breaking Loose' booklet given: 08/30/17 Hx Alcohol Use: No Drug/Substance Use Hx: No Substance Use Type: None Hx Substance Use Treatment: No *Physical Exam - Vital Signs Last Vital Signs Temp Pulse Resp BP Pulse Ox 98.1 F 93 H 20 119/66 96 11/10/17 16:20 11/10/17 16:20 11/10/17 16:20 11/10/17 16:20 11/10/17 16:20 *DC/Admit/Observation/Transfer - Referrals Referrals: Mike Boykin MD [Primary Care Provider] - - Patient Instructions - Post Discharge Activity
--- NOTE | 2017-11-10 17:58 | PDOC ---
Attending Attestation - Resident Resident Name: Elinor Bernardo - ED Attending Attestation I have performed the following: I have examined & evaluated the patient, The case was reviewed & discussed with the resident, I agree w/resident's findings & plan, Exceptions are as noted - HPI HPI: 72 yo F history afib, OA, RA, Sjogren's, HTN, COPD, venous insufficiency, chronic cellulitis RLE presents with worsening RLE pain, weeping, swelling, and redness. She states she has been treated multiple times for the same, most recently treated with steroids with improvement. No recent fever. Drainage is clear. - Physicial Exam PE: GENERAL: Awake, alert, and fully oriented, in no acute distress. Morbidly obese. HEAD: No signs of trauma EYES: PERRLA, EOMI, sclera anicteric, conjunctiva clear ENT: Auricles normal inspection, hearing grossly normal, nares patent, oropharynx clear without exudates. Moist mucosa NECK: Normal ROM, supple, no lymphadenopathy, JVD, or masses LUNGS: Breath sounds equal, clear to auscultation bilaterally. No wheezes, and no crackles HEART: Regular rate and rhythm, normal S1 and S2, no murmurs, rubs or gallops ABDOMEN: Soft, nontender, normoactive bowel sounds. No guarding, no rebound. No masses EXTREMITIES: RLE with significant erythema, weeping of clear fluid, macerated appearance. +Mild yeast odor. 3+ edema. LLE edematous, nontender. Normal range of motion. No clubbing or cyanosis. No cords. NEUROLOGICAL: Cranial nerves II through XII grossly intact. Normal speech. Motor and sensation intact. SKIN: Warm, Dry, normal turgor, no rashes or lesions noted. - Medical Decision Making Pt with recurrent cellulitis. 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 Improved with steroids on prior admission. Unclear etiology at this point, may possibly be fungal. Will plan for admission. S/o to Dr. Rodriguez at 7pm shift change, IV currently being placed and labs sent.
[2017-11-10 19:15] LABS: BASO % 0.6 % (0-2.0); EOS % 1.6 % (0-4.5); MCH 26.3 pg (25.7-33.7); MCHC 31.8 g/dl (32.0-36.0); MEAN CELL VOLUME 82.8 fl (80-96); MEAN PLT VOLUME 7.2 fl (7.5-11.1); NEUT % 74.9 % (42.8-82.8); PLATELET COUNT 340 K/MM3 (134-434); WHITE BLOOD COUNT 7.7 K/mm3 (4.0-10.0)
[2017-11-10 19:16] LABS: URINE APPEARANCE CLOUDY; URINE BILIRUBIN NEGATIVE (NEGATIVE); URINE BLOOD NEGATIVE (NEGATIVE); URINE COLOR AMBER; URINE GLUCOSE (UA) NEGATIVE (NEGATIVE); URINE KETONE NEGATIVE (NEGATIVE); URINE LEUK ESTERASE TRACE (NEGATIVE); URINE NITRITE NEGATIVE (NEGATIVE)
--- NOTE | 2017-11-10 19:19 | PDOC ---
*Physical Exam - Vital Signs Last Vital Signs Temp Pulse Resp BP Pulse Ox 98.1 F 93 H 20 119/66 96 11/10/17 16:20 11/10/17 16:20 11/10/17 16:20 11/10/17 16:20 11/10/17 16:20 11/10/17 19:[address] Bernardo at the beginning of my shift. 72 YOF with h/o prior RLE infection, MRSA+, chronic lymphedema BLE, A-fib (on coumadin and diltiazem) , venous insufficiency, RA, OA, sjogren syndrome, and HTN who presents with apparent RLE cellulitis. Mild tachycardia on triage VS but otherwise no e/o sepsis. Patient will be admitted pending labs, PCP Dr. Bhakta. ED Treatment Course - LABORATORY CBC & Chemistry Diagram: 11/11/17 05:44 11/11/17 05:44 Medical Decision Making - Medical Decision Making 72 YOF with h/o RLE cellulitis p/w pain, erythema, warmth, increased swelling, and weeping of the RLE. The RLE is dressed with petroleum dressing, kerlix, PITER wrap in the ED. Pending lab results to call for admission and inpatient management. 11/10/17 21:[address] Bradley on for Dr. Griffith who admits for Dr. Bhakta. Dr. Bradley agreeable to admission. Also recommends adding on BNP and PT/INR which are ordered. 11/11/17 01:10 Patient has been refusing telemetry admission, states she does not want cardiac monitoring. Has been refusing director of cardiac cath lab here in the ED as well. Spoke with Dr. Bradley who agrees with plan to downgrade to med/surg inpatient. Patient is given her evening dose of medications warfarin. 11/11/17 06:59 Patient is moved to isolation room in room 8. Patient's care is signed out to oncoming resident at the end of my shift. *DC/Admit/Observation/Transfer Diagnosis at time of Disposition: Atrial fibrillation with RVR Cellulitis Qualifiers: Site of cellulitis: extremity Site of cellulitis of extremity: lower extremity Laterality: right Qualified Code(s): L03.115 - Cellulitis of right lower limb - Discharge Dispostion Condition at time of disposition: Guarded Admit: Yes - Referrals - Patient Instructions - Post Discharge Activity
[2017-11-10 19:21] LABS: URINE PROTEIN 1+ (NEGATIVE)
[2017-11-10] MEDS ORDERED: oxyCODONE HCL 5 MG TABLET PO ONE (19:24)
[2017-11-10 19:31] LABS: CALCIUM OXALATE CRYSTALS FEW /hpf (NONE SEEN); URINE BACTERIA FEW /hpf (NONE SEEN); URINE MUCUS MANY; URINE RBC 33 /hpf (0-3); URINE WBC 24 /hpf (3-5)
[2017-11-10 19:37] LABS: ALBUMIN 2.9 g/dl (3.4-5.0); ALK PHOS 142 U/L (45-117); ANION GAP 6 (8-16); BILIRUBIN,TOTAL 0.4 mg/dL (0.2-1.0); CALCIUM 8.5 mg/dL (8.5-10.1); CO2 31 mmol/L (21-32); CREATININE 0.7 mg/dL (0.55-1.02); GLUCOSE,RANDOM 95 mg/dL (74-106); SGOT/AST 10 U/L (15-37); SGPT/ALT 15 U/L (12-78); TOT PROT 6.4 g/dl (6.4-8.2)
[2017-11-10] MEDS ORDERED: DOCUSATE SODIUM 100 MG CAPSULE (FP) PO PRN (23:14)
[2017-11-10] MEDS ORDERED: FUROSEMIDE 40 MG TABLET (FP) PO PRN (23:14)
[2017-11-10] MEDS ORDERED: POTASSIUM CHLORIDE TABS 10 MEQ TABLET.ER (FP) PO PRN (23:14)
[2017-11-10] MEDS ORDERED: oxyCODONE/APAP 1 EACH - MUST ORDER COMBO PRODUCT NR PRN (23:14)
[2017-11-10] MEDS ORDERED: FUROSEMIDE 40 MG/4 ML INJECTABLE VIAL IVPUSH ONE (23:23)
[2017-11-10] MEDS ORDERED: FUROSEMIDE 40 MG/4 ML INJECTABLE VIAL ONE (23:43)
[2017-11-11] MEDS ORDERED: METOPROLOL SUCCINATE 50 MG TAB.SR.24H (FP) PO ONE (01:08)
[2017-11-11] MEDS ORDERED: dilTIAZem HCL 30 MG TABLET (FP) PO ONE (01:08)
[2017-11-11] MEDS ORDERED: WARFARIN NA 5 MG TABLET (UD) PO ONE (01:08)
[2017-11-11] MEDS ORDERED: WARFARIN NA 5 MG TABLET (UD) ONE ×2 (01:34→19:05)
[2017-11-11] MEDS ORDERED: WARFARIN NA 1 MG TABLET (FP) ONE ×2 (01:34→19:05)
[2017-11-11] MEDS ORDERED: dilTIAZem HCL 30 MG TABLET (FP) ONE ×2 (01:34→14:22)
[2017-11-11] MEDS ORDERED: METOPROLOL SUCCINATE 50 MG TAB.SR.24H (FP) ONE (01:34)
[2017-11-11] MEDS: dilTIAZem HCL 30 MG TABLET (FP) PO SCH ×3 (06:12→21:21)
[2017-11-11 06:24] LABS: BASO % 0.5 % (0-2.0); EOS % 2.1 % (0-4.5); MCH 26.9 pg (25.7-33.7); MCHC 32.8 g/dl (32.0-36.0); MEAN PLT VOLUME 7.3 fl (7.5-11.1); NEUT % 67.7 % (42.8-82.8); PLATELET COUNT 369 K/MM3 (134-434); RDW 16.7 % (11.6-15.6); WHITE BLOOD COUNT 7.1 K/mm3 (4.0-10.0)
[2017-11-11 06:47] LABS: INR 2.26 (0.82-1.09); PROTHROMBIN TIME (PATIENT) 25.5 SEC (9.98-11.88)
[2017-11-11] MEDS ORDERED: oxyCODONE HCL 5 MG TABLET ONE ×2 (06:50→13:50)
[2017-11-11] MEDS ORDERED: ACETAMINOPHEN 325 MG TABLET (FP) ONE ×2 (06:52→13:50)
[2017-11-11] MEDS: oxyCODONE HCL 5 MG TABLET PO PRN ×3 (07:01→21:20)
[2017-11-11] MEDS: ACETAMINOPHEN 325 MG TABLET (FP) PO PRN ×3 (07:02→21:20)
[2017-11-11 07:03] LABS: ANION GAP 9 (8-16); CALCIUM 8.7 mg/dL (8.5-10.1); CO2 27 mmol/L (21-32); CREATININE 0.6 mg/dL (0.55-1.02); GLUCOSE,RANDOM 93 mg/dL (74-106)
[2017-11-11] MEDS ORDERED: BORAGE PO SCH (10:00)
[2017-11-11] MEDS ORDERED: FISH OIL PO SCH (10:00)
[2017-11-11] MEDS ORDERED: [UNRECOGNIZED DRUG - OTHER] PO SCH (10:00)
[2017-11-11] MEDS ORDERED: FLAX PO SCH (10:00)
[2017-11-11] MEDS: CYANOCOBALAMIN 1,000 MCG TABLET (FP) PO SCH (10:10)
[2017-11-11] MEDS: METOPROLOL SUCCINATE 50 MG TAB.SR.24H (FP) PO SCH ×2 (10:10→23:53)
[2017-11-11] MEDS: LOSARTAN POTASSIUM 25 MG TABLET PO SCH (10:10)
[2017-11-11] MEDS: ASCORBIC ACID 500 MG TABLET (FP) PO SCH (10:11)
[2017-11-11] MEDS: guaiFENesin 600 MG TABLET.ER (FP) PO SCH (10:11)
[2017-11-11] MEDS: CHOLECALCIFEROL (VITAMIN D3) 1,000 UNIT TABLET (FP) PO SCH ×2 (10:11→23:54)
--- NOTE | 2017-11-11 10:28 | HP ---
Admitting History and Physical - Primary Care Physician PCP: Mike Boykin - Admission Chief Complaint: My legs are bad History of Present Illness: Mrs Torres is a 72 year old female who comes in with worsening erythema with weeping and swelling of her right leg. She has a history of chronic dermatitis with two previous admissions for this. Past admission she was placed on systemic steroids and the dermatitis improved. She was discharged home on a taper and was doing well. However she says when the taper finished her leg worsened. She noted that it was becoming red and swollen again. It began to weep yellowish fluid. She was being followed in the outpatient by wound care and was trying to avoid coming in secondary to the holiday season, however her home RN evaluated the leg and stated she needs to come to the hospital for further evaluation. Aside from the leg she has no other somatic complaints. She denies fevers, chills, lightheadedness, dizziness, passing out, chest pain, shortness of breath, nausea, vomiting, diarrhea, constipation, difficulty or pain on urination. Patient was recommended for telemetry but refused. History Source: Patient Limitations to Obtaining History: No Limitations - Past Medical History Cardiovascular: Yes: AFIB, HTN, Other (h/o DVT) Pulmonary: Yes: COPD, Sleep Apnea Hepatobiliary: Yes: Other (fatty liver disease) Heme/Onc: Yes: Anemia Musculoskeletal: Yes: Chronic low back pain (/spinal stenosis) Rheumatology: Yes: Rheumatoid Arthritis Endocrine: Yes: Osteopenia, Other (obesity, thyroid nodule) - Past Surgical History Past Surgical History: Yes: Joint Replacement (right knee over 10 years ago) - Smoking History Smoking history: Never smoked Have you smoked in the past 12 months: No Aproximately how many cigarettes per day: 0 If you are a former smoker, when did you quit?: 1984 - Alcohol/Substance Use Hx Alcohol Use: No History of Substance Use: reports: None - Social History Usual Living Arrangement: Yes: With Spouse ADL: Independent History of Recent Travel: No Home Medications - Allergies Allergies/Adverse Reactions: Allergies Allergy/AdvReac Type Severity Reaction Status Date / Time Penicillins Allergy Severe Swelling Verified 11/10/17 16:21 clindamycin Allergy Mild Rash Verified 11/10/17 16:21 vancomycin AdvReac Mild Itching Verified 11/10/17 16:21 adhesive tape AdvReac "RIPS MY Verified 11/10/17 16:21 SKIN" - Home Medications Home Medications: Ambulatory Orders Ascorbate Calcium [Vitamin C] 1,000 mg PO DAILY 08/30/15 Cholecalciferol (Vitamin D3) [Vitamin D3] 1,000 unit PO BID 08/30/15 Cyanocobalamin [Vitamin B12 -] 1,000 mcg PO DAILY 08/30/15 Oxycodone/APAP [Percocet - Must Order Individual Components] 1 each NR QID PRN 08/30/15 Simvastatin 10 mg PO HS 08/30/15 Guaifenesin [Mucinex] 600 mg PO DAILY 06/20/17 Warfarin Na [Coumadin -] 6 mg PO DAILY 06/20/17 Metoprolol Succinate [Toprol XL -] 50 mg PO BID #60 tab.sr 06/25/17 Docusate Sodium [Colace -] 1 cap PO DAILY PRN 07/12/17 Fish Oil/Borage/Flax/Om3,6,9#1 [[place] 3-6-9 1,200 mg Softgel] 1 cap PO DAILY Losartan Potassium [Cozaar -] 25 mg PO DAILY #30 tablet 08/06/17 Diltiazem [Cardizem -] 30 mg PO TID 08/29/17 Furosemide [Lasix] 40 mg PO ASDIR PRN 08/29/17 Potassium Chloride [Klor-Con 10] 10 meq PO DAILY PRN 08/29/17 Family Disease History - Family Disease History Family Disease History: Other: Father (alcohol abuse), Mother (rheumatoid arthritis) Review of Systems Findings/Remarks: Full review of systems obtained, as per HPI and otherwise negative Physical Examination Vital Signs: Vital Signs Temperature 36.5 C 11/11/17 06:47 Pulse Rate 110 H 11/11/17 06:47 Respiratory Rate 18 11/11/17 06:47 Blood Pressure 98/62 11/11/17 06:47 O2 Sat by Pulse Oximetry (%) 94 L 11/11/17 06:47 Constitutional: Yes: No Distress, Calm, Obese Eyes: Yes: Conjunctiva Clear, EOM Intact, PERRL HENT: Yes: Atraumatic, Normocephalic Cardiovascular: Yes: Regular Rate and Rhythm. No: Gallop, Murmur, Rub Respiratory: Yes: Regular, CTA Bilaterally. No: Rales, Rhonchi, Wheezes Gastrointestinal: Yes: Normal Bowel Sounds, Soft. No: Distention, Tenderness Extremities: Yes: Erythema (R, minimal L erythema), Other (malodorous) Edema: LLE: 3+, RLE: 3+ Labs: CBC, BMP 11/11/17 05:44 11/11/17 05:44 Problem List - Problems (1) Cellulitis Assessment/Plan: -patient with erythema, possible cellulitis vs steroid responsive dermatitis -malodorous, ? yeast -consult ID to evaluate, no signs of sepsis so will defer empiric antibiotics to ID -consult wound care -monitor for improvement Code(s): L03.90 - CELLULITIS, UNSPECIFIED Qualifiers: Site of cellulitis: extremity Site of cellulitis of extremity: lower extremity Laterality: right Qualified Code(s): L03.115 - Cellulitis of right lower limb (2) Dermatitis Assessment/Plan: -steroid responsive in past -await ID evaluation but consider restarting prednisone if safe from an infectious process Code(s): L30.9 - DERMATITIS, UNSPECIFIED (3) Atrial fibrillation Code(s): I48.91 - UNSPECIFIED ATRIAL FIBRILLATION Qualifiers: Atrial fibrillation type: chronic Qualified Code(s): I48.2 - Chronic atrial fibrillation (4) HLD (hyperlipidemia) Assessment/Plan: -continue toprol xl -continue diltiazem -continue coumadin -daily INR Code(s): E78.5 - HYPERLIPIDEMIA, UNSPECIFIED (5) HTN (hypertension) Assessment/Plan: -well controlled Code(s): I10 - ESSENTIAL (PRIMARY) HYPERTENSION (6) Lymphedema of both lower extremities Assessment/Plan: -continue lasix Code(s): I89.0 - LYMPHEDEMA, NOT ELSEWHERE CLASSIFIED (7) Obesity Assessment/Plan: -outpatient weight loss program Code(s): E66.9 - OBESITY, UNSPECIFIED
[2017-11-11 14:02] LABS: URINE LEUK ESTERASE Negative (NEGATIVE)
--- NOTE | 2017-11-11 14:19 | PN ---
Progress Note (short form) - Note Progress Note: ID Consult dictated Probable recurrence of her steroid-responsive dermatitis ? Secondary bacterial cellulitis/ sepsis Hx multiple antibiotic allergies Hx MRSA/VRE/ Pseudomonas Await c/s Empiric levaquin/ linezolid Resume topical/ systemic steroids Local wound care
[2017-11-11] MEDS: LEVOFLOXACIN 500 MG IVPB 500 MG/100 ML BAG IVPB SCH ×2 (14:38→14:50)
[2017-11-11] MEDS ORDERED: LEVOFLOXACIN 500 MG IVPB 500 MG/100 ML BAG IVPB ONE (14:39)
[2017-11-11] MEDS: LINEZOLID 600 MG PREMIX BAG 600 MG/300 ML BAG IVPB SCH ×2 (15:52→23:54)
[2017-11-11] MEDS: WARFARIN NA 3 MG TABLET PO SCH (19:25)
--- NOTE | 2017-11-11 19:26 | CONS ---
INFECTIOUS DISEASE CONSULTATION DATE OF CONSULTATION: DATE OF DICTATION: 11/11/2017 REASON FOR CONSULTATION: The patient is a 72-year-old female who is evaluated for recurrent inflammation of the right lower extremity. HISTORY OF PRESENT ILLNESS: The patient has had multiple hospital admissions for what was suspected to be bilateral lower extremity cellulitis. In the past, she had received courses of empiric antibiotic therapy without significant improvement. She was ultimately seen by Dermatology and Surgery. She was felt to have a steroid-responsive dermatologic condition. On her last admission, she was started on steroids and significantly improved. She has, in fact, been out of the hospital for the past 2 months. She reports recently finishing her course of steroids. After completion of the therapy, she developed recurrent right lower extremity swelling, erythema, and weepage. Cultures in the past have grown mixed organisms including MRSA and pseudomonas. She denies any fever. However, she has had chills. She has noted yellow serous drainage from the right lower extremity. PAST MEDICAL HISTORY: Positive for atrial fibrillation: history of chronic venous stasis dermatitis, ulcerations, and recurrent lower extremity inflammation; history of osteoarthritis; rheumatoid arthritis; Sjogren syndrome; hypertension; COPD. PAST SURGICAL HISTORY: Status post bilateral total knee replacements. ALLERGIES: PENICILLIN (anaphylaxis), CLINDAMYCIN (rash), and VANCOMYCIN (rash). MEDICATIONS: Include Tylenol, Cozaar, Coumadin, metoprolol, Cardizem, Colace, Lipitor, Lasix, oxycodone, vitamin C. SOCIAL HISTORY: She resides at home. She is a former smoker. No history of alcohol abuse. SYSTEMS REVIEW: Neurologic: No loss of consciousness, seizure activity, or focal weakness. Cardiac: Negative chest pain or palpitations. Respiratory: Negative cough or sputum production. Gastrointestinal: Negative vomiting or diarrhea. Genitourinary: Negative urinary tract infection. LABORATORY DATA: White count 7.1, hematocrit 42.5, platelet count 369. Creatinine 0.6. Cultures pending. PHYSICAL EXAMINATION: General: She is awake and alert. She is not acutely toxic appearing. Vital Signs: Temperature 97.6; blood pressure 111/66; pulse 108, regular; respirations 16 per minute. HEENT: Sclerae are anicteric. Heart: Sounds S1, S2. Lungs: Clear. Abdomen: Obese, soft, nontender. Lower Extremities: Bilateral lower extremity total knee replacement scars. Examination of the right lower extremity: there is intense erythema with skin maceration and serous weepage involving the entire leg from below the knee to the foot. No lymphangitic streaking noted. IMPRESSION: 1. Probable recurrence of her steroid-responsive dermatitis. 2. Possible secondary cellulitis/sepsis. 3. History of MULTIPLE ANTIBIOTIC ALLERGIES. 4. History of methicillin-resistant Staphylococcus aureus, vancomycin-resistant enterococci, and pseudomonas. Suspect recurrence of her steroid-responsive dermatitis now that she has been off steroids. Cannot rule out a secondary bacterial cellulitis and bacteremia because of complaints of chills. Await culture results. Pending blood cultures, would empirically treat with Levaquin and Zyvox in this patient with MULTIPLE ANTIBIOTIC ALLERGIES. Advise dermatology followup for resumption of topical and systemic steroids and local wound care. Thank you for the kind referral. EFRAIN MOREJON M.D. [id number]
[2017-11-11] MEDS: ATORVASTATIN CA 10 MG TABLET (FP) PO SCH (21:21)
--- NOTE | 2017-11-12 01:30 | EKG ---
Test Reason : Blood Pressure : / mmHG Vent. Rate : 124 BPM Atrial Rate : 141 BPM P-R Int : 000 ms QRS Dur : 074 ms QT Int : 318 ms P-R-T Axes : 000 065 043 degrees QTc Int : 456 ms ATRIAL FIBRILLATION WITH RAPID VENTRICULAR RESPONSE NONSPECIFIC ST AND T WAVE ABNORMALITY ABNORMAL ECG WHEN COMPARED WITH ECG OF 29-AUG-2017 18:33, NO SIGNIFICANT CHANGE WAS FOUND Confirmed by JOE NOBLE MD ([id number]) on 11/12/2017 1:30:25 AM Referred By: Confirmed By:JOE NOBLE MD
[2017-11-12] MEDS: dilTIAZem HCL 30 MG TABLET (FP) PO SCH ×3 (06:58→21:34)
[2017-11-12] MEDS ORDERED: PT OWN MED DRAWER 7, Y5N ONE ×2 (07:03→09:27)
[2017-11-12 08:22] LABS: BASO % 0.6 % (0-2.0); EOS % 2.9 % (0-4.5); MCH 26.3 pg (25.7-33.7); MCHC 32.2 g/dl (32.0-36.0); MEAN CELL VOLUME 81.8 fl (80-96); MEAN PLT VOLUME 7.1 fl (7.5-11.1); NEUT % 66.9 % (42.8-82.8); PLATELET COUNT 353 K/MM3 (134-434); WHITE BLOOD COUNT 6.7 K/mm3 (4.0-10.0)
[2017-11-12 08:42] LABS: INR 2.47 (0.82-1.09); PROTHROMBIN TIME (PATIENT) 27.9 SEC (9.98-11.88)
[2017-11-12 09:01] LABS: ANION GAP 9 (8-16); CALCIUM 8.6 mg/dL (8.5-10.1); CO2 27 mmol/L (21-32); CREATININE 0.6 mg/dL (0.55-1.02); GLUCOSE,RANDOM 93 mg/dL (74-106); MAGNESIUM 1.9 mg/dL (1.8-2.4); PHOSPHOROUS 3.8 mg/dL (2.5-4.9)
[2017-11-12] MEDS: oxyCODONE HCL 5 MG TABLET PO PRN ×3 (10:39→21:33)
[2017-11-12] MEDS: ACETAMINOPHEN 325 MG TABLET (FP) PO PRN ×3 (10:40→21:34)
[2017-11-12] MEDS: LEVOFLOXACIN 500 MG IVPB 500 MG/100 ML BAG IVPB SCH (10:41)
[2017-11-12] MEDS: LINEZOLID 600 MG PREMIX BAG 600 MG/300 ML BAG IVPB SCH ×2 (10:41→21:34)
[2017-11-12] MEDS: CHOLECALCIFEROL (VITAMIN D3) 1,000 UNIT TABLET (FP) PO SCH ×2 (10:46→21:34)
[2017-11-12] MEDS: ASCORBIC ACID 500 MG TABLET (FP) PO SCH (10:46)
[2017-11-12] MEDS: CYANOCOBALAMIN 1,000 MCG TABLET (FP) PO SCH (10:47)
[2017-11-12] MEDS: METOPROLOL SUCCINATE 50 MG TAB.SR.24H (FP) PO SCH ×2 (10:47→21:34)
[2017-11-12] MEDS: LOSARTAN POTASSIUM 25 MG TABLET PO SCH (10:47)
[2017-11-12] MEDS: guaiFENesin 600 MG TABLET.ER (FP) PO SCH (10:48)
--- NOTE | 2017-11-12 11:00 | PN ---
Progress Note, Physician Chief Complaint: Mrs Torres says her leg is feeling and looking better today but having some itching. No cp, sob, n/v. - Current Medication List Current Medications: Active Medications Acetaminophen (Tylenol -) 325 mg PO Q6H PRN PRN Reason: PAIN Last Admin: 11/12/17 10:40 Dose: 325 mg Ascorbic Acid (Vitamin C -) 1,000 mg PO DAILY [facility] Last Admin: 11/12/17 10:46 Dose: 1,000 mg Atorvastatin Calcium (Lipitor -) 10 mg PO HS [facility] Last Admin: 11/11/17 21:21 Dose: 10 mg Cholecalciferol (Vitamin D3 -) 1,000 unit PO BID [facility] Last Admin: 11/12/17 10:46 Dose: 1,000 unit Cyanocobalamin (Vitamin B12 -) 1,000 mcg PO DAILY [facility] Last Admin: 11/12/17 10:47 Dose: 1,000 mcg Diltiazem HCl (Cardizem -) 30 mg PO TID [facility] Last Admin: 11/12/17 06:58 Dose: 30 mg Furosemide (Lasix -) 40 mg PO DAILY PRN PRN Reason: edema Guaifenesin (Mucinex -) 600 mg PO DAILY [facility] Last Admin: 11/12/17 10:48 Dose: 600 mg Levofloxacin (Levaquin 500 Mg Premixed Ivpb -) 500 mg in 100 mls @ 100 mls/hr IVPB DAILY [facility] Last Admin: 11/12/17 10:41 Dose: 100 mls/hr Linezolid (Zyvox 600 Mg Premix Bag (Restricted To Id) -) 600 mg in 300 mls @ 300 mls/hr IVPB BID [facility] PRN Reason: Protocol Last Admin: 11/12/17 10:41 Dose: 300 mls/hr Losartan Potassium (Cozaar -) 25 mg PO DAILY [facility] Last Admin: 11/12/17 10:47 Dose: 25 mg Metoprolol Succinate (Toprol Xl -) 50 mg PO BID [facility] Last Admin: 11/12/17 10:47 Dose: 50 mg Non-Formulary Medication (Fish Oil/Borage/Flax/Om3,6,9#1 [[place] 3-6-9 1,200 Mg Softgel]) 1 cap PO DAILY [facility] Oxycodone HCl (Roxicodone -) 5 mg PO Q6H PRN PRN Reason: PAIN Last Admin: 11/12/17 10:39 Dose: 5 mg Potassium Chloride (K-Dur -) 10 meq PO DAILY PRN PRN Reason: when taking lasix only Warfarin Sodium (Coumadin -) 6 mg PO DAILY@1800 [facility] Last Admin: 11/11/17 19:25 Dose: 6 mg - Objective Vital Signs: Vital Signs Temperature 36.7 C 11/12/17 06:00 Pulse Rate 115 H 11/12/17 06:00 Respiratory Rate 20 11/12/17 06:00 Blood Pressure 108/62 11/12/17 06:00 O2 Sat by Pulse Oximetry (%) 97 11/11/17 23:03 Constitutional: Yes: No Distress, Calm, Obese Cardiovascular: Yes: Tachycardia, Pulse Irregular. No: Gallop, Murmur, Rub Respiratory: Yes: Regular, CTA Bilaterally. No: Rales, Rhonchi, Wheezes Gastrointestinal: Yes: Normal Bowel Sounds, Soft. No: Distention, Tenderness Extremities: Yes: Erythema Edema: Yes Edema: LLE: 2+, RLE: 2+ Labs: CBC, BMP 11/12/17 08:00 11/12/17 08:00 INR, PTT INR 2.47 (0.82-1.09) H 11/12/17 08:00 Problem List - Problems (1) Cellulitis Code(s): L03.90 - CELLULITIS, UNSPECIFIED Qualifiers: Site of cellulitis: extremity Site of cellulitis of extremity: lower extremity Laterality: right Qualified Code(s): L03.115 - Cellulitis of right lower limb (2) Dermatitis Code(s): L30.9 - DERMATITIS, UNSPECIFIED (3) Atrial fibrillation Code(s): I48.91 - UNSPECIFIED ATRIAL FIBRILLATION Qualifiers: Atrial fibrillation type: chronic Qualified Code(s): I48.2 - Chronic atrial fibrillation (4) HLD (hyperlipidemia) Code(s): E78.5 - HYPERLIPIDEMIA, UNSPECIFIED (5) HTN (hypertension) Code(s): I10 - ESSENTIAL (PRIMARY) HYPERTENSION (6) Lymphedema of both lower extremities Code(s): I89.0 - LYMPHEDEMA, NOT ELSEWHERE CLASSIFIED (7) Obesity Code(s): E66.9 - OBESITY, UNSPECIFIED Assessment/Plan (1) Cellulitis Assessment/Plan: -appreciate ID assistance -continue linezolid and zyvox -possible steroids Code(s): L03.90 - CELLULITIS, UNSPECIFIED Qualifiers: Site of cellulitis: extremity Site of cellulitis of extremity: lower extremity Laterality: right Qualified Code(s): L03.115 - Cellulitis of right lower limb (2) Dermatitis Assessment/Plan: -steroid responsive in past -await ID evaluation but consider restarting prednisone if safe from an infectious process Code(s): L30.9 - DERMATITIS, UNSPECIFIED (3) Atrial fibrillation Code(s): I48.91 - UNSPECIFIED ATRIAL FIBRILLATION -slightly elevated -continue current management Qualifiers: Atrial fibrillation type: chronic Qualified Code(s): I48.2 - Chronic atrial fibrillation (4) HLD (hyperlipidemia) Assessment/Plan: -continue statin Code(s): E78.5 - HYPERLIPIDEMIA, UNSPECIFIED (5) HTN (hypertension) Assessment/Plan: -well controlled Code(s): I10 - ESSENTIAL (PRIMARY) HYPERTENSION (6) Lymphedema of both lower extremities Assessment/Plan: -continue lasix Code(s): I89.0 - LYMPHEDEMA, NOT ELSEWHERE CLASSIFIED (7) Obesity Assessment/Plan: -outpatient weight loss program Code(s): E66.9 - OBESITY, UNSPECIFIED
[2017-11-12] MEDS: diphenhydrAMINE HCL 25 MG CAPSULE (FP) PO PRN ×2 (13:27→21:36)
[2017-11-12] MEDS: DOCUSATE SODIUM 100 MG CAPSULE (FP) PO SCH ×2 (13:32→21:31)
[2017-11-12] MEDS: POLYETHYLENE GLYCOL 3350 119 GM BTL PO SCH ×2 (13:33→21:58)
--- NOTE | 2017-11-12 17:46 | CONSULT ---
Consult - History of Present Illness History of Present Illness: 72 year old woman well known to me with chronic stasis dermatitis of both legs. SHe has had severe redness, pain and swelling of the right leg with serous drainage from multiple sites in the calf. She was hospitalized and received several weeks of antibiotics with minimal improvement. A course of Prednisone significantly improved the legs but now that the steroids have tapered there has been recurrent symptoms of dermatitis. Currently admitted with swollen draining leg. No fever, no leukocytosis. - Past Medical History Cardio/Vascular: Yes: AFIB, HTN, Other (h/o DVT) Pulmonary: Yes: COPD, Sleep Apnea Hepatobiliary: Yes: Other (fatty liver disease) ...: No Musculoskeletal: Yes: Chronic low back pain (/spinal stenosis) Rheumatology: Yes: Rheumatoid Arthritis Endocrine: Yes: Osteopenia, Other (obesity, thyroid nodule) - Past Surgical History Past Surgical History: Yes: Joint Replacement (right knee over 10 years ago) - Alcohol/Substance Use Hx Alcohol Use: No History of Substance Use: reports: None - Smoking History Smoking history: Never smoked Have you smoked in the past 12 months: No Aproximately how many cigarettes per day: 0 If you are a former smoker, when did you quit?: 1984 - Social History Usual Living Arrangement: With Spouse ( disabled) ADL: Independent History of Recent Travel: No Home Medications - Allergies Allergies/Adverse Reactions: Allergies Allergy/AdvReac Type Severity Reaction Status Date / Time Penicillins Allergy Severe Swelling Verified 11/10/17 16:21 clindamycin Allergy Mild Rash Verified 11/10/17 16:21 vancomycin AdvReac Mild Itching Verified 11/10/17 16:21 adhesive tape AdvReac "RIPS MY Verified 11/10/17 16:21 SKIN" - Home Medications Home Medications: Ambulatory Orders Ascorbate Calcium [Vitamin C] 1,000 mg PO DAILY 08/30/15 Cholecalciferol (Vitamin D3) [Vitamin D3] 1,000 unit PO BID 08/30/15 Cyanocobalamin [Vitamin B12 -] 1,000 mcg PO DAILY 08/30/15 Oxycodone/APAP [Percocet - Must Order Individual Components] 1 each NR QID PRN 08/30/15 Simvastatin 10 mg PO HS 08/30/15 Guaifenesin [Mucinex] 600 mg PO DAILY 06/20/17 Warfarin Na [Coumadin -] 6 mg PO DAILY 06/20/17 Metoprolol Succinate [Toprol XL -] 50 mg PO BID #60 tab.sr 06/25/17 Docusate Sodium [Colace -] 1 cap PO DAILY PRN 07/12/17 Fish Oil/Borage/Flax/Om3,6,9 1 [[place] 3-6-9 1,200 mg Softgel] 1 cap PO DAILY Losartan Potassium [Cozaar -] 25 mg PO DAILY #30 tablet 08/06/17 Diltiazem [Cardizem -] 30 mg PO TID 08/29/17 Furosemide [Lasix] 40 mg PO ASDIR PRN 08/29/17 Potassium Chloride [Klor-Con 10] 10 meq PO DAILY PRN 08/29/17 Family Disease History - Family Disease History Family Disease History: Other: Father (alcohol abuse), Mother (rheumatoid arthritis) Physical Exam Vital Signs: Vital Signs Temperature 98.0 F 11/12/17 06:00 Pulse Rate 115 H 11/12/17 06:00 Respiratory Rate 18 11/12/17 09:00 Blood Pressure 108/62 11/12/17 06:00 O2 Sat by Pulse Oximetry (%) 93 L 11/12/17 09:00 Labs: CBC, BMP 11/12/17 08:00 11/12/17 08:00 Problem List - Problems (1) Dermatitis Assessment/Plan: Severe dermatitis worse on right. No evidence for infection. I had recommended Dermatology evaluation as outpatient but this has not occurred. Another course of steroids may be needed if no evidence for infection identified. Code(s): L30.9 - DERMATITIS, UNSPECIFIED
[2017-11-12] MEDS: WARFARIN NA 3 MG TABLET PO SCH (18:44)
[2017-11-12] MEDS: ATORVASTATIN CA 10 MG TABLET (FP) PO SCH (21:34)
[2017-11-13] MEDS: dilTIAZem HCL 30 MG TABLET (FP) PO SCH ×3 (06:14→21:17)
[2017-11-13] MEDS: ACETAMINOPHEN 325 MG TABLET (FP) PO PRN ×3 (06:17→17:29)
[2017-11-13] MEDS: oxyCODONE HCL 5 MG TABLET PO PRN ×3 (06:18→17:28)
[2017-11-13 08:06] LABS: BASO % 0.5 % (0-2.0); EOS % 2.9 % (0-4.5); MCHC 31.4 g/dl (32.0-36.0); MEAN CELL VOLUME 82.9 fl (80-96); MEAN PLT VOLUME 7.4 fl (7.5-11.1); NEUT % 63.2 % (42.8-82.8); PLATELET COUNT 259 K/MM3 (134-434); RDW 16.5 % (11.6-15.6); WHITE BLOOD COUNT 5.5 K/mm3 (4.0-10.0)
[2017-11-13 08:23] LABS: INR 2.74 (0.82-1.09)
[2017-11-13] MEDS: DOCUSATE SODIUM 100 MG CAPSULE (FP) PO SCH ×2 (09:10→21:16)
[2017-11-13] MEDS: ASCORBIC ACID 500 MG TABLET (FP) PO SCH (09:10)
[2017-11-13] MEDS: CYANOCOBALAMIN 1,000 MCG TABLET (FP) PO SCH (09:10)
[2017-11-13] MEDS: METOPROLOL SUCCINATE 50 MG TAB.SR.24H (FP) PO SCH ×2 (09:10→21:17)
[2017-11-13] MEDS: CHOLECALCIFEROL (VITAMIN D3) 1,000 UNIT TABLET (FP) PO SCH ×2 (09:10→21:17)
[2017-11-13] MEDS: guaiFENesin 600 MG TABLET.ER (FP) PO SCH (09:11)
[2017-11-13] MEDS: POLYETHYLENE GLYCOL 3350 119 GM BTL PO SCH ×3 (09:14→21:16)
[2017-11-13] MEDS: LINEZOLID 600 MG PREMIX BAG 600 MG/300 ML BAG IVPB SCH ×2 (09:14→21:17)
[2017-11-13] MEDS: LOSARTAN POTASSIUM 25 MG TABLET PO SCH (09:14)
[2017-11-13] MEDS: LEVOFLOXACIN 500 MG IVPB 500 MG/100 ML BAG IVPB SCH (09:14)
[2017-11-13 09:23] LABS: ANION GAP 9 (8-16); CO2 28 mmol/L (21-32); CREATININE 0.5 mg/dL (0.55-1.02); GLUCOSE,RANDOM 78 mg/dL (74-106); MAGNESIUM 1.8 mg/dL (1.8-2.4); PHOSPHOROUS 3.6 mg/dL (2.5-4.9)
--- NOTE | 2017-11-13 10:48 | PN ---
Progress Note, Physician Chief Complaint: Mrs Torres complains of pains in her R leg and foot. She says it is worsening. No cp, sob, n/v. - Current Medication List Current Medications: Active Medications Acetaminophen (Tylenol -) 325 mg PO Q4H PRN PRN Reason: PAIN Last Admin: 11/13/17 10:41 Dose: 325 mg Ascorbic Acid (Vitamin C -) 1,000 mg PO DAILY [facility] Last Admin: 11/13/17 09:10 Dose: 1,000 mg Atorvastatin Calcium (Lipitor -) 10 mg PO HS [facility] Last Admin: 11/12/17 21:34 Dose: 10 mg Cholecalciferol (Vitamin D3 -) 1,000 unit PO BID [facility] Last Admin: 11/13/17 09:10 Dose: 1,000 unit Cyanocobalamin (Vitamin B12 -) 1,000 mcg PO DAILY [facility] Last Admin: 11/13/17 09:10 Dose: 1,000 mcg Diltiazem HCl (Cardizem -) 30 mg PO TID [facility] Last Admin: 11/13/17 06:14 Dose: 30 mg Diphenhydramine HCl (Benadryl -) 25 mg PO Q6H PRN PRN Reason: FOR ITCHING Last Admin: 11/12/17 21:36 Dose: 25 mg Docusate Sodium (Colace -) 100 mg PO BID [facility] Last Admin: 11/13/17 09:10 Dose: 100 mg Furosemide (Lasix -) 40 mg PO DAILY PRN PRN Reason: edema Guaifenesin (Mucinex -) 600 mg PO DAILY [facility] Last Admin: 11/13/17 09:11 Dose: 600 mg Levofloxacin (Levaquin 500 Mg Premixed Ivpb -) 500 mg in 100 mls @ 100 mls/hr IVPB DAILY [facility] Last Admin: 11/13/17 09:14 Dose: 100 mls/hr Linezolid (Zyvox 600 Mg Premix Bag (Restricted To Id) -) 600 mg in 300 mls @ 300 mls/hr IVPB BID [facility] PRN Reason: Protocol Last Admin: 11/13/17 09:14 Dose: 300 mls/hr Losartan Potassium (Cozaar -) 25 mg PO DAILY [facility] Last Admin: 11/13/17 09:14 Dose: Not Given Metoprolol Succinate (Toprol Xl -) 50 mg PO BID [facility] Last Admin: 12/20/17 09:10 Dose: 50 mg Non-Formulary Medication (Fish Oil/Borage/Flax/Om3,6,9#1 [[place] 3-6-9 1,200 Mg Softgel]) 1 cap PO DAILY [facility] Oxycodone HCl (Roxicodone -) 5 mg PO Q4H PRN PRN Reason: PAIN Last Admin: 11/13/17 10:42 Dose: 5 mg Polyethylene Glycol (Miralax (For Daily Use) -) 17 gm PO BID [facility] Last Admin: 11/13/17 09:14 Dose: Not Given Potassium Chloride (K-Dur -) 10 meq PO DAILY PRN PRN Reason: when taking lasix only Prednisone (Deltasone -) 40 mg PO DAILY [facility] Warfarin Sodium (Coumadin -) 6 mg PO DAILY@1800 [facility] Last Admin: 11/12/17 18:44 Dose: 6 mg - Objective Vital Signs: Vital Signs Temperature 36.3 C L 11/13/17 05:56 Pulse Rate 114 H 11/13/17 05:56 Respiratory Rate 18 11/13/17 09:00 Blood Pressure 112/54 11/13/17 05:56 O2 Sat by Pulse Oximetry (%) 96 11/13/17 09:00 Constitutional: Yes: No Distress, Calm, Obese Cardiovascular: Yes: Regular Rate and Rhythm. No: Gallop, Murmur, Rub Respiratory: Yes: Regular, CTA Bilaterally. No: Rales, Rhonchi, Wheezes Gastrointestinal: Yes: Normal Bowel Sounds, Soft. No: Distention, Tenderness Extremities: Yes: Erythema Edema: Yes Edema: LLE: 2+, RLE: 2+ Labs: CBC, BMP 11/13/17 05:35 11/13/17 05:35 INR, PTT INR 2.74 (0.82-1.09) H 11/13/17 05:35 Problem List - Problems (1) Cellulitis Code(s): L03.90 - CELLULITIS, UNSPECIFIED Qualifiers: Site of cellulitis: extremity Site of cellulitis of extremity: lower extremity Laterality: right Qualified Code(s): L03.115 - Cellulitis of right lower limb (2) Dermatitis Code(s): L30.9 - DERMATITIS, UNSPECIFIED (3) Atrial fibrillation Code(s): I48.91 - UNSPECIFIED ATRIAL FIBRILLATION Qualifiers: Atrial fibrillation type: chronic Qualified Code(s): I48.2 - Chronic atrial fibrillation (4) HLD (hyperlipidemia) Code(s): E78.5 - HYPERLIPIDEMIA, UNSPECIFIED (5) HTN (hypertension) Code(s): I10 - ESSENTIAL (PRIMARY) HYPERTENSION (6) Lymphedema of both lower extremities Code(s): I89.0 - LYMPHEDEMA, NOT ELSEWHERE CLASSIFIED (7) Obesity Code(s): E66.9 - OBESITY, UNSPECIFIED Assessment/Plan (1) Cellulitis Assessment/Plan: -does not look improved with antibiotics -? if need to continue empiric linezolid and levaquin -ID to see and decide if can stop or should continue Code(s): L03.90 - CELLULITIS, UNSPECIFIED Qualifiers: Site of cellulitis: extremity Site of cellulitis of extremity: lower extremity Laterality: right Qualified Code(s): L03.115 - Cellulitis of right lower limb (2) Dermatitis Assessment/Plan: -steroid responsive in past -restart prednisone 40mg daily -monitor for improvement Code(s): L30.9 - DERMATITIS, UNSPECIFIED (3) Atrial fibrillation Code(s): I48.91 - UNSPECIFIED ATRIAL FIBRILLATION -slightly elevated -continue current management Qualifiers: Atrial fibrillation type: chronic Qualified Code(s): I48.2 - Chronic atrial fibrillation (4) HLD (hyperlipidemia) Assessment/Plan: -continue statin Code(s): E78.5 - HYPERLIPIDEMIA, UNSPECIFIED (5) HTN (hypertension) Assessment/Plan: -well controlled Code(s): I10 - ESSENTIAL (PRIMARY) HYPERTENSION (6) Lymphedema of both lower extremities Assessment/Plan: -continue lasix Code(s): I89.0 - LYMPHEDEMA, NOT ELSEWHERE CLASSIFIED (7) Obesity Assessment/Plan: -outpatient weight loss program Code(s): E66.9 - OBESITY, UNSPECIFIED
[2017-11-13] MEDS: predniSONE 20 MG TABLET (UD) PO SCH (13:14)
[2017-11-13] MEDS: WARFARIN NA 3 MG TABLET PO SCH (17:24)
--- NOTE | 2017-11-13 17:53 | PN ---
Progress Note (short form) - Note Progress Note: Feels better. Right leg swelling improved. Skin lesions flat drier, less drainage. Topical steroid added. Dermatology input would be appreciated. Problem List - Problems (1) Dermatitis Code(s): L30.9 - DERMATITIS, UNSPECIFIED
[2017-11-13] MEDS: ATORVASTATIN CA 10 MG TABLET (FP) PO SCH (21:17)
[2017-11-14] MEDS: oxyCODONE HCL 5 MG TABLET PO PRN ×4 (02:21→21:48)
[2017-11-14] MEDS: ACETAMINOPHEN 325 MG TABLET (FP) PO PRN ×4 (02:23→21:48)
[2017-11-14] MEDS: dilTIAZem HCL 30 MG TABLET (FP) PO SCH ×3 (06:54→21:49)
[2017-11-14 08:01] LABS: BASO % 0.4 % (0-2.0); EOS % 0.2 % (0-4.5); MCH 26.1 pg (25.7-33.7); MCHC 31.4 g/dl (32.0-36.0); MEAN PLT VOLUME 7.5 fl (7.5-11.1); NEUT % 78.7 % (42.8-82.8); PLATELET COUNT 333 K/MM3 (134-434); RDW 16.7 % (11.6-15.6); WHITE BLOOD COUNT 6.4 K/mm3 (4.0-10.0)
[2017-11-14 08:15] LABS: INR 2.32 (0.82-1.09); PROTHROMBIN TIME (PATIENT) 26.2 SEC (9.98-11.88)
[2017-11-14 08:30] LABS: ANION GAP 6 (8-16); CALCIUM 8.5 mg/dL (8.5-10.1); CO2 30 mmol/L (21-32); CREATININE 0.6 mg/dL (0.55-1.02); GLUCOSE,RANDOM 99 mg/dL (74-106); MAGNESIUM 2.1 mg/dL (1.8-2.4); PHOSPHOROUS 3.1 mg/dL (2.5-4.9)
[2017-11-14] MEDS ORDERED: PT OWN MED DRAWER 7, Y5N ONE (11:01)
[2017-11-14] MEDS: LEVOFLOXACIN 500 MG IVPB 500 MG/100 ML BAG IVPB SCH (11:05)
[2017-11-14] MEDS: ASCORBIC ACID 500 MG TABLET (FP) PO SCH (11:06)
[2017-11-14] MEDS: METOPROLOL SUCCINATE 50 MG TAB.SR.24H (FP) PO SCH ×2 (11:06→21:49)
[2017-11-14] MEDS: predniSONE 20 MG TABLET (UD) PO SCH (11:06)
[2017-11-14] MEDS: DOCUSATE SODIUM 100 MG CAPSULE (FP) PO SCH ×2 (11:06→21:49)
[2017-11-14] MEDS: CHOLECALCIFEROL (VITAMIN D3) 1,000 UNIT TABLET (FP) PO SCH ×2 (11:07→21:49)
[2017-11-14] MEDS: POLYETHYLENE GLYCOL 3350 119 GM BTL PO SCH ×2 (11:07→21:49)
[2017-11-14] MEDS: LOSARTAN POTASSIUM 25 MG TABLET PO SCH (11:07)
[2017-11-14] MEDS: guaiFENesin 600 MG TABLET.ER (FP) PO SCH (11:07)
[2017-11-14] MEDS: CYANOCOBALAMIN 1,000 MCG TABLET (FP) PO SCH (11:07)
[2017-11-14] MEDS: FLUOCINONIDE 0.05% CREAM (15 GM TUBE) TP SCH (11:08)
--- NOTE | 2017-11-14 12:10 | PN ---
Progress Note, Physician Chief Complaint: Mrs Torres says her leg feels better after prednisone given. No cp, sob, n/v. Asking when she can go home. - Current Medication List Current Medications: Active Medications Acetaminophen (Tylenol -) 325 mg PO Q4H PRN PRN Reason: PAIN Last Admin: 11/14/17 06:56 Dose: 325 mg Ascorbic Acid (Vitamin C -) 1,000 mg PO DAILY [facility] Last Admin: 11/14/17 11:06 Dose: 1,000 mg Atorvastatin Calcium (Lipitor -) 10 mg PO HS [facility] Last Admin: 11/13/17 21:17 Dose: 10 mg Cholecalciferol (Vitamin D3 -) 1,000 unit PO BID [facility] Last Admin: 11/14/17 11:07 Dose: 1,000 unit Cyanocobalamin (Vitamin B12 -) 1,000 mcg PO DAILY [facility] Last Admin: 11/14/17 11:07 Dose: 1,000 mcg Diltiazem HCl (Cardizem -) 30 mg PO TID [facility] Last Admin: 11/14/17 06:54 Dose: 30 mg Diphenhydramine HCl (Benadryl -) 25 mg PO Q6H PRN PRN Reason: FOR ITCHING Last Admin: 11/12/17 21:36 Dose: 25 mg Docusate Sodium (Colace -) 100 mg PO BID [facility] Last Admin: 11/14/17 11:06 Dose: 100 mg Fluocinonide (Lidex 0.05% Cream -) 1 applic TP DAILY [facility] Last Admin: 11/14/17 11:08 Dose: 1 applic Furosemide (Lasix -) 40 mg PO DAILY PRN PRN Reason: edema Guaifenesin (Mucinex -) 600 mg PO DAILY [facility] Last Admin: 11/14/17 11:07 Dose: 600 mg Levofloxacin (Levaquin 500 Mg Premixed Ivpb -) 500 mg in 100 mls @ 100 mls/hr IVPB DAILY [facility] Last Admin: 11/14/17 11:05 Dose: 100 mls/hr Linezolid (Zyvox 600 Mg Premix Bag (Restricted To Id) -) 600 mg in 300 mls @ 300 mls/hr IVPB BID [facility] PRN Reason: Protocol Last Admin: 11/13/17 21:17 Dose: 300 mls/hr Losartan Potassium (Cozaar -) 25 mg PO DAILY [facility] Last Admin: 11/14/17 11:07 Dose: 25 mg Metoprolol Succinate (Toprol Xl -) 50 mg PO BID [facility] Last Admin: 11/14/17 11:06 Dose: 50 mg Oxycodone HCl (Roxicodone -) 5 mg PO Q4H PRN PRN Reason: PAIN Last Admin: 11/14/17 06:56 Dose: 5 mg Polyethylene Glycol (Miralax (For Daily Use) -) 17 gm PO BID [facility] Last Admin: 11/14/17 11:07 Dose: Not Given Potassium Chloride (K-Dur -) 10 meq PO DAILY PRN PRN Reason: when taking lasix only Prednisone (Deltasone -) 40 mg PO DAILY [facility] Last Admin: 11/14/17 11:06 Dose: 40 mg Warfarin Sodium (Coumadin -) 6 mg PO DAILY@1800 [facility] Last Admin: 11/13/17 17:24 Dose: 6 mg - Objective Vital Signs: Vital Signs Temperature 36.4 C 11/14/17 10:51 Pulse Rate 98 H 11/14/17 10:51 Respiratory Rate 20 11/14/17 10:51 Blood Pressure 143/83 11/14/17 10:51 O2 Sat by Pulse Oximetry (%) 96 11/14/17 00:25 Constitutional: Yes: No Distress, Calm, Obese Cardiovascular: Yes: Regular Rate and Rhythm. No: Gallop, Murmur, Rub Respiratory: Yes: Regular, CTA Bilaterally. No: Rales, Rhonchi, Wheezes Gastrointestinal: Yes: Normal Bowel Sounds, Soft. No: Distention, Tenderness Extremities: Yes: Erythema (improved) Edema: Yes Edema: LLE: 3+, RLE: 3+ Labs: CBC, BMP 11/14/17 06:00 11/14/17 06:00 INR, PTT INR 2.32 (0.82-1.09) H 11/14/17 06:00 Problem List - Problems (1) Cellulitis Code(s): L03.90 - CELLULITIS, UNSPECIFIED Qualifiers: Site of cellulitis: extremity Site of cellulitis of extremity: lower extremity Laterality: right Qualified Code(s): L03.115 - Cellulitis of right lower limb (2) Dermatitis Code(s): L30.9 - DERMATITIS, UNSPECIFIED (3) Atrial fibrillation Code(s): I48.91 - UNSPECIFIED ATRIAL FIBRILLATION Qualifiers: Atrial fibrillation type: chronic Qualified Code(s): I48.2 - Chronic atrial fibrillation (4) HLD (hyperlipidemia) Code(s): E78.5 - HYPERLIPIDEMIA, UNSPECIFIED (5) HTN (hypertension) Code(s): I10 - ESSENTIAL (PRIMARY) HYPERTENSION (6) Lymphedema of both lower extremities Code(s): I89.0 - LYMPHEDEMA, NOT ELSEWHERE CLASSIFIED (7) Obesity Code(s): E66.9 - OBESITY, UNSPECIFIED Assessment/Plan (1) Cellulitis Assessment/Plan: -on cefepime and levaquin empirically -call placed to ID to re-evaluate need for antibiotics Code(s): L03.90 - CELLULITIS, UNSPECIFIED Qualifiers: Site of cellulitis: extremity Site of cellulitis of extremity: lower extremity Laterality: right Qualified Code(s): L03.115 - Cellulitis of right lower limb (2) Dermatitis Assessment/Plan: -improved with prednisone 40mg -continue Code(s): L30.9 - DERMATITIS, UNSPECIFIED (3) Atrial fibrillation Code(s): I48.91 - UNSPECIFIED ATRIAL FIBRILLATION -slightly elevated -continue current management Qualifiers: Atrial fibrillation type: chronic Qualified Code(s): I48.2 - Chronic atrial fibrillation (4) HLD (hyperlipidemia) Assessment/Plan: -continue statin Code(s): E78.5 - HYPERLIPIDEMIA, UNSPECIFIED (5) HTN (hypertension) Assessment/Plan: -well controlled Code(s): I10 - ESSENTIAL (PRIMARY) HYPERTENSION (6) Lymphedema of both lower extremities Assessment/Plan: -continue lasix Code(s): I89.0 - LYMPHEDEMA, NOT ELSEWHERE CLASSIFIED (7) Obesity Assessment/Plan: -outpatient weight loss program Code(s): E66.9 - OBESITY, UNSPECIFIED Dispo -possible discharge tomorrow
[2017-11-14] MEDS: LINEZOLID 600 MG PREMIX BAG 600 MG/300 ML BAG IVPB SCH (14:29)
--- NOTE | 2017-11-14 15:16 | PN ---
Progress Note, Physician History of Present Illness: Less R leg pain Significant improvement in erythema No c/o fever/ chills - Current Medication List Current Medications: Active Medications Acetaminophen (Tylenol -) 325 mg PO Q4H PRN PRN Reason: PAIN Last Admin: 11/14/17 14:05 Dose: 325 mg Ascorbic Acid (Vitamin C -) 1,000 mg PO DAILY [facility] Last Admin: 11/14/17 11:06 Dose: 1,000 mg Atorvastatin Calcium (Lipitor -) 10 mg PO HS [facility] Last Admin: 11/13/17 21:17 Dose: 10 mg Cholecalciferol (Vitamin D3 -) 1,000 unit PO BID [facility] Last Admin: 11/14/17 11:07 Dose: 1,000 unit Cyanocobalamin (Vitamin B12 -) 1,000 mcg PO DAILY [facility] Last Admin: 11/14/17 11:07 Dose: 1,000 mcg Diltiazem HCl (Cardizem -) 30 mg PO TID [facility] Last Admin: 11/14/17 14:03 Dose: 30 mg Diphenhydramine HCl (Benadryl -) 25 mg PO Q6H PRN PRN Reason: FOR ITCHING Last Admin: 11/12/17 21:36 Dose: 25 mg Docusate Sodium (Colace -) 100 mg PO BID [facility] Last Admin: 11/14/17 11:06 Dose: 100 mg Fluocinonide (Lidex 0.05% Cream -) 1 applic TP DAILY [facility] Last Admin: 11/14/17 11:08 Dose: 1 applic Furosemide (Lasix -) 40 mg PO DAILY PRN PRN Reason: edema Guaifenesin (Mucinex -) 600 mg PO DAILY [facility] Last Admin: 11/14/17 11:07 Dose: 600 mg Levofloxacin (Levaquin 500 Mg Premixed Ivpb -) 500 mg in 100 mls @ 100 mls/hr IVPB DAILY [facility] Last Admin: 11/14/17 11:05 Dose: 100 mls/hr Linezolid (Zyvox 600 Mg Premix Bag (Restricted To Id) -) 600 mg in 300 mls @ 300 mls/hr IVPB BID [facility] PRN Reason: Protocol Last Admin: 11/14/17 14:29 Dose: Not Given Losartan Potassium (Cozaar -) 25 mg PO DAILY [facility] Last Admin: 12/21/17 11:07 Dose: 25 mg Metoprolol Succinate (Toprol Xl -) 50 mg PO BID [facility] Last Admin: 11/14/17 11:06 Dose: 50 mg Oxycodone HCl (Roxicodone -) 5 mg PO Q4H PRN PRN Reason: PAIN Last Admin: 11/14/17 14:05 Dose: 5 mg Polyethylene Glycol (Miralax (For Daily Use) -) 17 gm PO BID [facility] Last Admin: 11/14/17 11:07 Dose: Not Given Potassium Chloride (K-Dur -) 10 meq PO DAILY PRN PRN Reason: when taking lasix only Prednisone (Deltasone -) 40 mg PO DAILY [facility] Last Admin: 11/14/17 11:06 Dose: 40 mg Warfarin Sodium (Coumadin -) 6 mg PO DAILY@1800 [facility] Last Admin: 11/13/17 17:24 Dose: 6 mg - Objective Vital Signs: Vital Signs Temperature 97.9 F 11/14/17 14:51 Pulse Rate 106 H 11/14/17 14:51 Respiratory Rate 20 11/14/17 14:51 Blood Pressure 130/71 11/14/17 14:51 O2 Sat by Pulse Oximetry (%) 96 11/14/17 00:25 Constitutional: Yes: No Distress Cardiovascular: Yes: Regular Rate and Rhythm, S1, S2 Respiratory: Yes: CTA Bilaterally Gastrointestinal: Yes: Normal Bowel Sounds, Soft, Abdomen, Obese Extremities: Yes: Other (marked decreased R LE swellimg/ erythema No drainage) Edema: Yes Edema: LLE: 2+, RLE: 2+ Labs: CBC, BMP 11/14/17 06:00 11/14/17 06:00 INR, PTT INR 2.32 (0.82-1.09) H 11/14/17 06:00 Assessment/Plan Recurrent steroid- responsive dermatitis improved Multiple antibiotic allergies D/C antibiotics, observe off Continue steroids Outpatient dermatology follow up
[2017-11-14] MEDS: WARFARIN NA 3 MG TABLET PO SCH (17:10)
[2017-11-14] MEDS: ATORVASTATIN CA 10 MG TABLET (FP) PO SCH (21:49)
[2017-11-15] MEDS: dilTIAZem HCL 30 MG TABLET (FP) PO SCH ×2 (06:23→14:00)
[2017-11-15 08:05] LABS: INR 2.27 (0.82-1.09); PROTHROMBIN TIME (PATIENT) 25.7 SEC (9.98-11.88)
[2017-11-15] MEDS ORDERED: PT OWN MED DRAWER 7, Y5N ONE (09:10)
[2017-11-15] MEDS: ACETAMINOPHEN 325 MG TABLET (FP) PO PRN (09:21)
[2017-11-15] MEDS: oxyCODONE HCL 5 MG TABLET PO PRN (09:22)
[2017-11-15] MEDS: DOCUSATE SODIUM 100 MG CAPSULE (FP) PO SCH (09:24)
[2017-11-15] MEDS: LOSARTAN POTASSIUM 25 MG TABLET PO SCH (09:24)
[2017-11-15] MEDS: METOPROLOL SUCCINATE 50 MG TAB.SR.24H (FP) PO SCH (09:25)
[2017-11-15] MEDS: predniSONE 20 MG TABLET (UD) PO SCH (09:25)
[2017-11-15] MEDS: guaiFENesin 600 MG TABLET.ER (FP) PO SCH (09:25)
[2017-11-15] MEDS: ASCORBIC ACID 500 MG TABLET (FP) PO SCH (09:26)
[2017-11-15] MEDS: CHOLECALCIFEROL (VITAMIN D3) 1,000 UNIT TABLET (FP) PO SCH (09:26)
[2017-11-15] MEDS: CYANOCOBALAMIN 1,000 MCG TABLET (FP) PO SCH (09:26)
[2017-11-15] MEDS: POLYETHYLENE GLYCOL 3350 119 GM BTL PO SCH (10:00)
[2017-11-15 10:07] VITALS: BP 106/59; PULSE 90; TEMP 97.6
--- NOTE | 2017-11-15 11:16 | DS ---
Physical Examination Vital Signs: Vital Signs Temperature 36.4 C 11/15/17 09:00 Pulse Rate 90 11/15/17 09:00 Respiratory Rate 18 11/15/17 09:00 Blood Pressure 106/59 11/15/17 09:00 O2 Sat by Pulse Oximetry (%) 96 11/15/17 09:00 Constitutional: Yes: No Distress, Calm, Obese Cardiovascular: Yes: Regular Rate and Rhythm. No: Gallop, Murmur, Rub Respiratory: Yes: Regular, CTA Bilaterally. No: Rales, Rhonchi, Wheezes Gastrointestinal: Yes: Normal Bowel Sounds, Soft. No: Distention, Tenderness Extremities: Yes: WNL Edema: No Labs: CBC, BMP 11/14/17 06:00 11/14/17 06:00 Discharge Summary Reason For Visit: CELLULITIS Current Active Problems Atrial fibrillation with RVR (Acute) Cellulitis (Acute) Dermatitis (Acute) Hospital Course: (1) Cellulitis Code(s): L03.90 - CELLULITIS, UNSPECIFIED Qualifiers: Site of cellulitis: extremity Site of cellulitis of extremity: lower extremity Laterality: right Qualified Code(s): L03.115 - Cellulitis of right lower limb (2) Dermatitis Code(s): L30.9 - DERMATITIS, UNSPECIFIED (3) Atrial fibrillation Code(s): I48.91 - UNSPECIFIED ATRIAL FIBRILLATION Qualifiers: Atrial fibrillation type: chronic Qualified Code(s): I48.2 - Chronic atrial fibrillation (4) HLD (hyperlipidemia) Code(s): E78.5 - HYPERLIPIDEMIA, UNSPECIFIED (5) HTN (hypertension) Code(s): I10 - ESSENTIAL (PRIMARY) HYPERTENSION (6) Lymphedema of both lower extremities Code(s): I89.0 - LYMPHEDEMA, NOT ELSEWHERE CLASSIFIED (7) Obesity Code(s): E66.9 - OBESITY, UNSPECIFIED Mrs Torres is a pleasant 72 year old female who comes in with worsening dermatitis but there was concern for cellulitis. She was admitted to the hospital and empirically started on empiric linezolid and levaquin. She had no signs of sepsis and did not improve on antibiotics, so antibiotics were stopped and she was started on prednisone. Her dermatitis improved significantly on prednisone 40mg daily. She is currently stable for discharge home. She is instructed to follow up with both her PCP and her wet suit gluer to evaluate if she can be tapered off the steroids and possibly starting another immunomodulator with less side effects. She understood and agreed to try. 31 minutes spent in preparation of this discharge Condition: Stable - Instructions Diet, Activity, Other Instructions: resume previous diet and activity Referrals: Mike Boykin MD [Primary Care Provider] - Tejas Gonzalez MD [Staff Physician] - Disposition: VNS/HOME HEALTH CARE - Home Medications Comprehensive Discharge Medication List: Ambulatory Orders Ascorbate Calcium [Vitamin C] 1,000 mg PO DAILY 08/30/15 Cholecalciferol (Vitamin D3) [Vitamin D3] 1,000 unit PO BID 08/30/15 Cyanocobalamin [Vitamin B12 -] 1,000 mcg PO DAILY 08/30/15 Oxycodone/APAP [Percocet - Must Order Individual Components] 1 each NR QID PRN 08/30/15 Simvastatin 10 mg PO HS 08/30/15 Guaifenesin [Mucinex] 600 mg PO DAILY 06/20/17 Warfarin Na [Coumadin -] 6 mg PO DAILY 06/20/17 Metoprolol Succinate [Toprol XL -] 50 mg PO BID #60 tab.sr 06/25/17 Docusate Sodium [Colace -] 1 cap PO DAILY PRN 07/12/17 Fish Oil/Borage/Flax/Om3,6,9 1 [[place] 3-6-9 1,200 mg Softgel] 1 cap PO DAILY Losartan Potassium [Cozaar -] 25 mg PO DAILY #30 tablet 08/06/17 Diltiazem [Cardizem -] 30 mg PO TID 08/29/17 Furosemide [Lasix] 40 mg PO ASDIR PRN 08/29/17 Potassium Chloride [Klor-Con 10] 10 meq PO DAILY PRN 08/29/17 Prednisone [Deltasone -] 40 mg PO DAILY #60 tablet 11/15/17
[2017-11-15] MEDS: FLUOCINONIDE 0.05% CREAM (15 GM TUBE) TP SCH (12:00)
== END 2017-11-15 14:06 | disposition home health service (06) | DRG 603 ==
LOC: SUPCPDRO 16:18 → JER 16:18 → JERBED 21:04 → J4S 11-12 01:42 → J7W 11-14 00:42
PROVIDERS: ADMIT Internal Medicine; ATTEND Internal Medicine
DX: L03.115 Cellulitis of right lower limb (principal); Z68.42 Body mass index [BMI] 45.0-49.9, adult; Z79.01 Long term (current) use of anticoagulants; J44.9 Chronic obstructive pulmonary disease, unspecified; M35.00 Sjogren syndrome, unspecified; M06.9 Rheumatoid arthritis, unspecified; I10 Essential (primary) hypertension; I87.2 Venous insufficiency (chronic) (peripheral); E66.01 Morbid (severe) obesity due to excess calories; Z88.0 Allergy status to penicillin; I48.2 Chronic atrial fibrillation; E78.5 Hyperlipidemia, unspecified; I89.0 Lymphedema, not elsewhere classified; L30.9 Dermatitis, unspecified
CPT/HCPCS: 36415; 73610-TC-RT; 73630-TC-RT; 80048; 80053; 81003; 81015; 83735; 83880; 84100; 85025; 85610; 87040; 87086; 87186; 93005; 93010; 99285-25

== ENCOUNTER 2019-04-22 16:21 | Inpatient (IN) | payer OTHER, MEDICARE ==
--- NOTE | 2019-04-22 17:08 | PDOC ---
History of Present Illness - General Chief Complaint: Wound Stated Complaint: SENT BY PCP Time Seen by Provider: 04/22/19 17:07 - History of Present Illness Initial Comments: 74yo F with PMH of Afib on eliquis, HTN, HLD, COPD on 4L home oxygen, osteoarthritis, rheumatoid arthritis, Sjogren's, fibromyalgia, DVT, venous insufficiency, venous stasis dermatitis sent by her vascular surgeon for evaluation of RLE cellulitis. She saw her doctor today as part of regular follow -up. The pain in her right leg has been getting worse. Patient is non- ambulatory and uses a wheelchair. Patient states she has chronic body pain and has no other acute complaints. She is not currently taking any steroids or antibiotics. No fevers, chills, chest pain, or shortness of breath. PCP: Dr. Boykin Vascular Surgeon: Dr. Gonzalez Past History - Past Medical History Allergies/Adverse Reactions: Allergies Allergy/AdvReac Type Severity Reaction Status Date / Time Penicillins Allergy Severe Swelling Verified 04/22/19 17:32 clindamycin Allergy Mild Rash Verified 04/22/19 17:32 doxycycline Allergy Swelling Verified 04/22/19 17:32 levofloxacin [From Levaquin] Allergy Rash Verified 04/22/19 20:58 vancomycin AdvReac Mild Itching Verified 04/22/19 17:32 adhesive tape AdvReac "RIPS MY Verified 04/22/19 17:32 SKIN" Home Medications: Ambulatory Orders Ascorbate Calcium [Vitamin C] 1,000 mg PO DAILY 08/30/15 Cholecalciferol (Vitamin D3) [Vitamin D3] 1,000 unit PO BID 08/30/15 Cyanocobalamin [Vitamin B12 -] 1,000 mcg PO DAILY 08/30/15 Oxycodone/APAP [Percocet - Must Order Individual Components] 1 each NR QID PRN 08/30/15 Simvastatin 10 mg PO HS 08/30/15 Guaifenesin [Mucinex] 600 mg PO DAILY 06/20/17 Metoprolol Succinate [Toprol XL -] 50 mg PO BID #60 tab.sr 06/25/17 Docusate Sodium [Colace -] 1 cap PO DAILY PRN 07/12/17 Fish Oil/Borage/Flax/Om3,6,9 1 [[place] 3-6-9 1,200 mg Softgel] 1 cap PO DAILY Losartan Potassium [Cozaar -] 25 mg PO DAILY #30 tablet 08/06/17 Diltiazem [Cardizem -] 30 mg PO TID 08/29/17 Furosemide [Lasix] 40 mg PO ASDIR PRN 08/29/17 Potassium Chloride [Klor-Con 10] 10 meq PO DAILY PRN 08/29/17 predniSONE [Deltasone -] 40 mg PO DAILY #60 tablet 11/15/17 Apixaban [Eliquis] 5 mg PO DAILY 04/22/19 Anemia: No Cardiac Disorders: Yes (ATRIAL FIBRILLATION) COPD: Yes HTN: Yes Hypercholesterolemia: Yes Thyroid Disease: Yes (LEFT THYROID LUMP) - Surgical History Orthopedic Surgery: Yes (BILATERAL KNEE REPLACEMENT) - Immunization History Immunization Up to Date: No - Suicide/Smoking/Psychosocial Hx Smoking History: Never smoked Have you smoked in the past 12 months: No Number of Cigarettes Smoked Daily: 0 If you are a former smoker, when did you quit?: 1985 Cigars Per Day: 0 Information on smoking cessation initiated: No 'Breaking Loose' booklet given: 08/30/17 Hx Alcohol Use: No Drug/Substance Use Hx: No Substance Use Type: None Hx Substance Use Treatment: No Review of Systems - Review of Systems Comments:: Constitutional: no fever, no chills HEENT: no throat pain, no dysphagia Cardiovascular: no chest pain, no palpitations Respiratory: no cough, no shortness of breath Gastrointestinal: no abdominal pain, no nausea Genitourinary: no dysuria, no frequency Musculoskeletal: no myalgia, no arthralgia Skin: +RLE wound, no itching Neurologic: no headache, no weakness *Physical Exam - Vital Signs Last Vital Signs Temp Pulse Resp BP Pulse Ox 98.3 F 68 16 115/62 97 04/22/19 16:36 04/22/19 16:36 04/22/19 16:36 04/22/19 16:36 04/22/19 16:36 - Physical Exam Comments: General: Awake, alert, and fully oriented, anxious Head: No signs of trauma Eyes: EOMI, sclera anicteric ENT: Moist mucus membranes Neck: Normal ROM, supple Lungs: Lungs clear, Normal breath sounds, on supplemental oxygen Cardio: Irregular rhythm, S1 and S2 present Abdomen: Soft, nontender. No guarding, no rebound, no masses Extremities: Significant erythema and inflammation present on RLE extending just below the knee, present anteriorly and posteriorly, draining serous fluid; LLE without significant abnormality SKIN: Warm, Dry, normal turgor Neurologic: Cranial nerves II through XII grossly intact. Normal speech ED Treatment Course - LABORATORY CBC & Chemistry Diagram: 04/22/19 19:43 04/22/19 19:43 Medical Decision Making - Medical Decision Making Patient not present in room 8 04/22/19 17:14 Patient was found in her wheelchair in the hallway because she was reluctant to go to room 8 secondary to claustrophobia. After explaining that hospital policy dictates a patient with her infectious history is placed in isolation, patient was begrudgingly amenable. 74yo F with PMH of Afib on eliquis, HTN, HLD, COPD on 4L home oxygen, osteoarthritis, rheumatoid arthritis, Sjogren's, fibromyalgia, DVT, venous insufficiency, venous stasis dermatitis sent by her vascular surgeon for evaluation of RLE cellulitis. DDX including but not limited to cellulitis, abscess, dermatitis, hypersensitivity reaction VS stable; no signs of sepsis Following previous microbiology, will cover empirically with levaquin and linezolid Ordered 4mg Decadron per Dr. Gonzalez's recommendation Consult for Dr. Gonzalez placed Labs Plan for admission 04/22/19 18:07 EKG: rate 85, QTc 433, afib 04/22/19 18:42 CXR looks similar to previous, no acute pathology, my impression 04/22/19 18:45 Met with extreme difficulty when placing line and drawing labs. 24 gauge IV placed in the left wrist. Labs sent. Patient has several complaints regarding the discomfort of being in her stretcher. Efforts made to help re-position her in bed. Patient given tray for dinner. 04/22/19 20:02 CMP Sodium 141 mmol/L (136-145) 04/22/19 19:43 Potassium 4.6 mmol/L (3.5-5.1) 04/22/19 19:43 Chloride 98 mmol/L (98-107) 04/22/19 19:43 Carbon Dioxide 35 mmol/L (21-32) H 04/22/19 19:43 Anion Gap 8 MMOL/L (8-16) 04/22/19 19:43 BUN 16 mg/dL (7-18) 04/22/19 19:43 Creatinine 0.5 mg/dL (0.55-1.3) L 04/22/19 19:43 Est GFR (CKD-EPI)AfAm 112.07 04/22/19 19:43 Est GFR (CKD-EPI)NonAf 96.69 04/22/19 19:43 Random Glucose 89 mg/dL (74-106) 04/22/19 19:43 Calcium 8.9 mg/dL (8.5-10.1) 04/22/19 19:43 Magnesium 1.9 mg/dL (1.8-2.4) 04/22/19 19:43 Total Bilirubin 0.4 mg/dL (0.2-1) 04/22/19 19:43 AST 13 U/L (15-37) L 04/22/19 19:43 ALT 14 U/L (13-61) 04/22/19 19:43 Alkaline Phosphatase 113 U/L (45-117) 04/22/19 19:43 Total Protein 6.9 g/dl (6.4-8.2) 04/22/19 19:43 Albumin 3.3 g/dl (3.4-5.0) L 04/22/19 19:43 CMP unremarkable Awaiting CBC CXR: "A single AP view the chest is submitted. Since 08/29/2017 the patient is rotated to the right. Again noted is the prominent mediastinum with clear lungs and sharp angles. The bones and soft tissues are intact. Correlation recommended. " 04/22/19 20:15 CBC WBC 6.3 K/mm3 (4.0-10.0) 04/22/19 19:43 RBC 5.15 M/mm3 (3.60-5.2) 04/22/19 19:43 Hgb 13.5 GM/dL (10.7-15.3) 04/22/19 19:43 Hct 43.5 % (32.4-45.2) 04/22/19 19:43 MCV 84.5 fl (80-96) 04/22/19 19:43 MCH 26.3 pg (25.7-33.7) 04/22/19 19:43 MCHC 31.1 g/dl (32.0-36.0) L 04/22/19 19:43 RDW 14.2 % (11.6-15.6) D 04/22/19 19:43 Plt Count 198 K/MM3 (134-434) D 04/22/19 19:43 MPV 7.8 fl (7.5-11.1) 04/22/19 19:43 Absolute Neuts (auto) 4.2 K/mm3 (1.5-8.0) 04/22/19 19:43 Neutrophils % 66.9 % (42.8-82.8) 04/22/19 19:43 Lymphocytes % 19.2 % (8-40) D 04/22/19 19:43 Monocytes % 9.2 % (3.8-10.2) 04/22/19 19:43 Eosinophils % 4.5 % (0-4.5) D 04/22/19 19:43 Basophils % 0.2 % (0-2.0) 04/22/19 19:43 Nucleated RBC % 0 % (0-0) 04/22/19 19:43 No anemia or leukocytosis Medicine team paged 04/22/19 20:28 Patient states her arm feels itchy shortly after receiving Levaquin. Benadryl 50mg given po. 04/22/19 20:42 Levaquin stopped. Aztreonam ordered. 04/22/19 20:[address] Selena Noriega who accepted patient for admission under Dr. Rabago. Per his request, order for wound culture added. 04/22/19 21:00 *DC/Admit/Observation/Transfer Diagnosis at time of Disposition: Cellulitis Qualifiers: Site of cellulitis: extremity Site of cellulitis of extremity: lower extremity Laterality: right Qualified Code(s): L03.115 - Cellulitis of right lower limb Venous stasis dermatitis Qualifiers: Laterality: right Qualified Code(s): I87.2 - Venous insufficiency (chronic) ( peripheral) - Discharge Dispostion Condition at time of disposition: Guarded Decision to Admit order: Yes - Referrals - Patient Instructions - Post Discharge Activity
[2019-04-22] MEDS ORDERED: DEXAMETHASONE SOD PHOSPHATE 4 MG/1 ML VIAL IVPUSH ONE (17:48)
[2019-04-22] MEDS ORDERED: DEXAMETHASONE SOD PHOSPHATE 4 MG/1 ML VIAL ONE (17:59)
--- NOTE | 2019-04-22 18:03 | PDOC ---
Documentation entered by Homa Ely SCRIBE, acting as scribe for Margarita Berman DO. Margarita Berman DO: This documentation has been prepared by the [employer] stringer Adrianna, SCRIBE, under my direction and personally reviewed by me in its entirety. I confirm that the documentation accurately reflects all work, treatment, procedures, and medical decision making performed by me. Attending Attestation - Resident Resident Name: ElianaArgenis - [facility] HPI: The patient is a 74 year old female, with a significant PMH of Afib (on Eliquis) , OA, RA. Sjogrens, HTN, COPD (chronic, on 4L home O2), venous insufficiency, prior DVT (years ago behind the right knee), who presents to the emergency department today as per request of Dr. Gonzalez for admission for contact dermatitis of the RLE. Patient notes she has been following up with wound care since last hospital admission 5 months ago, but her symptoms have progressively worsened this past week. Patient endorses pain and weeping from the RLE. She saw Dr. Gonzalez this morning for this issue, who referred her to come to the ED to receive Decadron, steroids, and IV antibiotics. She denies being on antibiotics recently The patient denies chest pain, shortness of breath, headache and dizziness. Denies fever, chills, nausea, vomit, diarrhea and constipation. Denies dysuria, frequency, urgency and hematuria. Allergies: Penicillin, clindamycin, doxycycline, vancomycin, and adhesive tape Past surgical history: Bilateral total knee replacement Social history: No reported PCP: Dr. Mike Boykin Wound care: Dr. Gonzalez 04/22/19 17:55 - Physicial Exam PE: GENERAL: +Morbidly obese. Awake, alert, and fully oriented, in no acute distress HEAD: No signs of trauma EYES: PERRLA, EOMI, sclera anicteric, conjunctiva clear ENT: Auricles normal inspection, hearing grossly normal, nares patent, oropharynx clear without exudates. Moist mucosa NECK: Normal ROM, supple, no lymphadenopathy, JVD, or masses LUNGS: Breath sounds equal, clear to auscultation bilaterally. No wheezes, and no crackles HEART: Regular rate and rhythm, normal S1 and S2, no murmurs, rubs or gallops ABDOMEN: +Morbidly obese. Soft, nontender, normoactive bowel sounds. No guarding, no rebound. No masses EXTREMITIES: +RLE has erythematous seeping wounds and skin sloughing circumferential around the knee, down the leg to the anterior foot and MTP. + Serous drainage from wounds. Nothing acutely wrong with the LLE. Normal range of motion, no edema. No clubbing or cyanosis. No cords, erythema, or tenderness NEUROLOGICAL: +Needs assistance with ambulation. Cranial nerves II through XII grossly intact. Normal speech. SKIN: +RLE has erythematous seeping wounds and skin sloughing circumferential around the knee, down the leg to the anterior foot and MTP. +Serous drainage from wounds. Nothing acutely wrong with the LLE 04/22/19 17:55 - Medical Decision Making 04/22/19 17:56 I, Dr. Margarita Berman, DO, attest that this document has been prepared under my direction and personally reviewed by me in its entirety. I further attest, that it accurately reflects all work, treatment, procedures and medical decision -making performed by me. 04/22/19 17:56 a/p: 74yo female with R leg wound -pt sent from Dr. Gonzalez for admission for iv abx and steroids -hx of contact dermatitis, hx of pseudo x 2 and vre - pt with worsening redness, serous drainage, sloughing of skin to RLE -redness up to knee, circumferential to LE and down across the foot -will send labs, cultures, will start abx -pt on eliquis for afib/hx of dvt -hx of contact dermatitis -will start decadron per Dr. gonzalez -Dr. Liu is PMD -pt will need admission 04/22/19 19:50 cxr clear labs pending 04/22/19 19:52 EXAM#: TYPE/EXAM: RESULT: [id number] RAD/CHEST X-RAY PORTABLE* Chest: Shortness of breath A single AP view the chest is submitted. Since 08/29/2017 the patient is rotated to the right. Again noted is the prominent mediastinum with clear lungs and sharp angles. The bones and soft tissues are intact. Correlation recommended. Reported By: Rocky Tovar MD 04/22/19 18:49 04/22/19 20:48 pt with itching from levaquin, levaquin stopped, benadryl ordered will change abx to azactam for pseudomonas coverage 04/22/19 21:27 resident discussed the case with bowen who accepts pt to service Heart Score/ECG Review - ECG Intrepretation Comment:: 04/22/19 18:10 afib at 85, nl axis, no acute st/t wave findings
[2019-04-22 19:56] LABS: BASO % 0.2 % (0-2.0); EOS % 4.5 % (0-4.5); HEMATOCRIT 43.5 % (32.4-45.2); HEMOGLOBIN 13.5 GM/dL (10.7-15.3); LYMPH % 19.2 % (8-40); MCH 26.3 pg (25.7-33.7); MCHC 31.1 g/dl (32.0-36.0); MEAN CELL VOLUME 84.5 fl (80-96); MEAN PLT VOLUME 7.8 fl (7.5-11.1); MONO % 9.2 % (3.8-10.2); NEUT % 66.9 % (42.8-82.8); PLATELET COUNT 198 K/MM3 (134-434); RBC 5.15 M/mm3 (3.60-5.2); RDW 14.2 % (11.6-15.6); WHITE BLOOD COUNT 6.3 K/mm3 (4.0-10.0)
[2019-04-22 20:09] LABS: INR 1.19 (0.83-1.09); PROTHROMBIN TIME (PATIENT) 14.1 SEC (9.7-13.0)
[2019-04-22 20:11] LABS: ALBUMIN 3.3 g/dl (3.4-5.0); BILIRUBIN,TOTAL 0.4 mg/dL (0.2-1); CALCIUM 8.9 mg/dL (8.5-10.1); CREATININE 0.5 mg/dL (0.55-1.3); MAGNESIUM 1.9 mg/dL (1.8-2.4); POTASSIUM 4.6 mmol/L (3.5-5.1); TOT PROT 6.9 g/dl (6.4-8.2)
[2019-04-22 20:12] LABS: ACTIVATED PTT 47.1 SECONDS (25.2-36.5)
[2019-04-22] MEDS ORDERED: diphenhydrAMINE HCL 25 MG CAPSULE (FP) PO ONE ×2 (20:42→20:46)
[2019-04-22] MEDS ORDERED: AZTREONAM 1 GM in DEXTROSE 5%-WATER - 50 ML IVPB ONE (20:46)
[2019-04-22] MEDS: LINEZOLID 600 MG PREMIX BAG 600 MG in PREMIX 300 IVPB SCH (20:50)
--- NOTE | 2019-04-22 21:19 | PN ---
Teaching Attending Note Name of Resident: Mildred Noriega ATTENDING PHYSICIAN STATEMENT I saw and evaluated the patient. I reviewed the resident's note and discussed the case with the resident. I agree with the resident's findings and plan as documented. SUBJECTIVE: This is a 74 year old woman with a history of atrial fib, HTN, hyperlipidemia, chronic hypoxic respiratory failure, COPD, chronic venous insufficiency, lymphedema, Sjogren's, osteoarthritis, RA, DVT, spinal stenosis, chronic pain, right knee replacement who comes to the ED because of increasing redness of and weeping from her right lower leg. She has noticed worsening over the past week. She saw Dr. Gonzalez today in wound clinic and he advised her to go to the ED for IV antibiotics. OBJECTIVE: Vital Signs Period Temp Pulse Resp BP Sys/William Pulse Ox Last 24 Hr 98.3 F 68 16 115/62 97 HEART: Irregular LUNGS: Clear ABDOMEN: Obese, soft, non-tender, non-distended, normal BS EXTREMITIES: Chronic venous stasis changes of LLE. RLE erythematous with serous yellow fluid draining and sloughing of skin Laboratory Tests 04/22/19 04/22/19 04/22/19 19:43 19:43 19:43 WBC 6.3 RBC 5.15 Hgb 13.5 Hct 43.5 MCV 84.5 MCH 26.3 MCHC 31.1 L RDW 14.2 D Plt Count 198 D MPV 7.8 Absolute Neuts (auto) 4.2 Neutrophils % 66.9 Lymphocytes % 19.2 D Monocytes % 9.2 Eosinophils % 4.5 D Basophils % 0.2 Nucleated RBC % 0 PT with INR 14.10 H INR 1.19 H PTT (Actin FS) 47.1 H Sodium 141 Potassium 4.6 Chloride 98 Carbon Dioxide 35 H Anion Gap 8 BUN 16 Creatinine 0.5 L Est GFR (CKD-EPI)AfAm 112.07 Est GFR (CKD-EPI)NonAf 96.69 Random Glucose 89 Calcium 8.9 Magnesium 1.9 Total Bilirubin 0.4 AST 13 L ALT 14 Alkaline Phosphatase 113 Total Protein 6.9 Albumin 3.3 L Home Medications Medication Instructions Recorded Ascorbate Calcium [Vitamin C] 1,000 mg PO DAILY 08/30/15 Cholecalciferol (Vitamin D3) 1,000 unit PO BID 08/30/15 [Vitamin D3] Cyanocobalamin [Vitamin B12 -] 1,000 mcg PO DAILY 08/30/15 Oxycodone/APAP [Percocet - Must 1 each NR QID PRN 08/30/15 Order Individual Components] Simvastatin 10 mg PO HS 08/30/15 Guaifenesin [Mucinex] 600 mg PO DAILY 06/20/17 Metoprolol Succinate [Toprol XL -] 50 mg PO BID #60 tab.sr 06/25/17 Docusate Sodium [Colace -] 1 cap PO DAILY PRN 07/12/17 Fish Oil/Borage/Flax/Om3,6,9 1 1 cap PO DAILY 07/12/17 [[place] 3-6-9 1,200 mg Softgel] Losartan Potassium [Cozaar -] 25 mg PO DAILY #30 tablet 08/06/17 Diltiazem [Cardizem -] 30 mg PO TID 08/29/17 Furosemide [Lasix] 40 mg PO ASDIR PRN 08/29/17 Potassium Chloride [Klor-Con 10] 10 meq PO DAILY PRN 08/29/17 predniSONE [Deltasone -] 40 mg PO DAILY #60 tablet 11/15/17 Apixaban [Eliquis] 5 mg PO DAILY 04/22/19 ASSESSMENT AND PLAN: This is a 74 year old woman with a history of atrial fib, HTN, hyperlipidemia, chronic hypoxic respiratory failure, COPD, chronic venous insufficiency, lymphedema, Sjogren's, osteoarthritis, RA, DVT, spinal stenosis, chronic pain, right knee replacement who presented to the ED from wound clinic at the advice of Dr. Gonzalez because of redness, pain, and swelling of her right leg. 1. Chronic stasis dermatitis and lymphedema of both legs with cellulitis of RLE - Levaquin given in ED and patient developed rash on her arms - Levaquin discontinued - Aztreonam, Zyvox given in ED - Start Prednisone as patient had good response to steroids during two admissions in 2017 2. Atrial fibrillation, permanent - Rate controlled - Continue Cardizem, Toprol XL, Eliquis 3. HTN - Continue Cozaar, Cardizem, Toprol XL 4. Hyperlipidemia - Continue Zocor 5. Chronic hypoxic respiratory failure - Oxygen to maintain saturation >90% 6. COPD - Stable 7. Obesity with BMI 39.2 8. Sjogren's disease 9. Rheumatoid arthritis 10. Osteoarthritis 11. Spinal stenosis 12. Chronic pain 13. History of DVT
[2019-04-22] MEDS ORDERED: FUROSEMIDE 40 MG TABLET (FP) PO PRN (21:42)
--- NOTE | 2019-04-22 21:57 | HP ---
CHIEF COMPLAINT: cellulitis PCP: Dr. Liu HISTORY OF PRESENT ILLNESS: Patient is a 74 yo F with a PMHx of A-fib (on eliquis), OA, RA, Sjorgens, HTN, COPD (4L O2), venous insufficiency, dvt, VRE, Pseudomonas, was sent from wound care today by Dr. Gonzalez for worsening venous stasis dermatitis and concern for Cellulitis of the RLE. Patient said she has home health aids that come to her house for wound care but has noticed it become much worse over the last weeks. She endorses weeping from the RLE. She's had this in the past and was admitted in 2017 which improved significantly with Prednisone and Abx. She has severe allergies to many of the antibiotics and was given Levaquin and Linezolid last time she was admitted. In the ED today patient was given Levaquin and Linezolid. She then developed a rash in her b/l LE with itching. The Levaquin was then switched to Aztreonam. Patient denies fevers, chills, chills, recent abx use, recent travel, nausea, vomiting, diarrhea, dizziness, chest pain, palpitations, urinary changes. Recent Travel: denies PAST MEDICAL HISTORY: per HPI PAST SURGICAL HISTORY: b/l total knee replacement Allergies Penicillins Allergy (Severe, Verified 04/22/19 17:32) Swelling clindamycin Allergy (Mild, Verified 04/22/19 17:32) Rash doxycycline Allergy (Verified 04/22/19 17:32) Swelling levofloxacin [From Levaquin] Allergy (Verified 04/22/19 20:58) Rash vancomycin Adverse Reaction (Mild, Verified 04/22/19 17:32) Itching adhesive tape Adverse Reaction (Verified 04/22/19 17:32) "RIPS MY SKIN" HOME MEDICATIONS: Home Medications Medication Instructions Recorded Ascorbate Calcium [Vitamin C] 1,000 mg PO DAILY 08/30/15 Cholecalciferol (Vitamin D3) 1,000 unit PO BID 08/30/15 [Vitamin D3] Cyanocobalamin [Vitamin B12 -] 1,000 mcg PO DAILY 08/30/15 Oxycodone/APAP [Percocet - Must 1 each NR QID PRN 08/30/15 Order Individual Components] Simvastatin 10 mg PO HS 08/30/15 Guaifenesin [Mucinex] 600 mg PO DAILY 06/20/17 Metoprolol Succinate [Toprol XL -] 50 mg PO BID #60 tab.sr 06/25/17 Docusate Sodium [Colace -] 1 cap PO DAILY PRN 07/12/17 Fish Oil/Borage/Flax/Om3,6,9 1 1 cap PO DAILY 07/12/17 [[place] 3-6-9 1,200 mg Softgel] Losartan Potassium [Cozaar -] 25 mg PO DAILY #30 tablet 08/06/17 Diltiazem [Cardizem -] 30 mg PO TID 08/29/17 Furosemide [Lasix] 40 mg PO ASDIR PRN 08/29/17 Potassium Chloride [Klor-Con 10] 10 meq PO DAILY PRN 08/29/17 Apixaban [Eliquis] 5 mg PO DAILY 04/22/19 REVIEW OF SYSTEMS CONSTITUTIONAL: Absent: fever, chills, diaphoresis, generalized weakness, malaise, loss of appetite, weight change HEENT: Absent: rhinorrhea, nasal congestion, throat pain, throat swelling, difficulty swallowing, mouth swelling, ear pain, eye pain, visual changes CARDIOVASCULAR: Absent: chest pain, syncope, palpitations, irregular heart rate, lightheadedness , peripheral edema RESPIRATORY: Absent: cough, shortness of breath, dyspnea with exertion, orthopnea, wheezing, stridor, hemoptysis GASTROINTESTINAL: Absent: abdominal pain, abdominal distension, nausea, vomiting, diarrhea, constipation, melena, hematochezia GENITOURINARY: Absent: dysuria, frequency, urgency, hesitancy, hematuria, flank pain, genital pain MUSCULOSKELETAL: Absent: myalgia, arthralgia, joint swelling, back pain, neck pain SKIN: rash, itching Absent: pallor HEMATOLOGIC/IMMUNOLOGIC: Absent: easy bleeding, easy bruising, lymphadenopathy, frequent infections ENDOCRINE: Absent: unexplained weight gain, unexplained weight loss, heat intolerance, cold intolerance NEUROLOGIC: Absent: headache, focal weakness or paresthesias, dizziness, unsteady gait, seizure, mental status changes, bladder or bowel incontinence PSYCHIATRIC: Absent: anxiety, depression, suicidal or homicidal ideation, hallucinations. PHYSICAL EXAMINATION Vital Signs - 24 hr 04/22/19 16:36 Temperature 98.3 F Pulse Rate 68 Respiratory 16 Rate Blood Pressure 115/62 O2 Sat by Pulse 97 Oximetry (%) GENERAL: Awake, alert, and fully oriented, in no acute distress. HEAD: Normal with no signs of trauma. EYES: Pupils equal, round and reactive to light, extraocular movements intact, sclera anicteric, conjunctiva clear EARS, NOSE, THROAT: oropharynx clear without exudates. Moist mucous membranes. NECK: supple without lymphadenopathy, JVD, or masses. LUNGS: Breath sounds equal, clear to auscultation bilaterally. No wheezes, and no crackles. HEART: irregular rhythm, s1, s2 ABDOMEN: Soft, nontender, not distended, normoactive bowel sounds, no guarding, no rebound, no masses. MUSCULOSKELETAL: Normal range of motion at all joints. UPPER EXTREMITIES: 2+ pulses, No peripheral edema. allergic rash on b/l UE LOWER EXTREMITIES: 2+ pulses, RLE erythema, seeping wounds with skin sloughing starts at the knees and goes down to the foot w/ serous drainage. NEUROLOGICAL: Cranial nerves II-XII intact. Normal speech. Normal gait. PSYCHIATRIC: Cooperative. Good eye contact. Appropriate mood and affect. Laboratory Results - last 24 hr 04/22/19 04/22/19 04/22/19 19:43 19:43 19:43 WBC 6.3 RBC 5.15 Hgb 13.5 Hct 43.5 MCV 84.5 MCH 26.3 MCHC 31.1 L RDW 14.2 D Plt Count 198 D MPV 7.8 Absolute Neuts (auto) 4.2 Neutrophils % 66.9 Lymphocytes % 19.2 D Monocytes % 9.2 Eosinophils % 4.5 D Basophils % 0.2 Nucleated RBC % 0 PT with INR 14.10 H INR 1.19 H PTT (Actin FS) 47.1 H Sodium 141 Potassium 4.6 Chloride 98 Carbon Dioxide 35 H Anion Gap 8 BUN 16 Creatinine 0.5 L Est GFR (CKD-EPI)AfAm 112.07 Est GFR (CKD-EPI)NonAf 96.69 Random Glucose 89 Calcium 8.9 Magnesium 1.9 Total Bilirubin 0.4 AST 13 L ALT 14 Alkaline Phosphatase 113 Total Protein 6.9 Albumin 3.3 L ASSESSMENT/PLAN: 74 yo F with a PMHx of A-fib (on eliquis), OA, RA, Sjorgens, HTN, COPD (4L O2), venous insufficiency, dvt, VRE, Pseudomonas, was sent from wound care today by Dr. Gonzalez for RLE cellulitis. #Chronic stasis dermatitis and lymphedema of both legs with cellulitis of RLE -wound cultures -allergic to many antibiotics -Levaquin given in ED and patient developed rash on her arms - Levaquin discontinued -Start IV Linezolid, Aztreonam -ID consulted: Dr. Fraga -Dr. Gonzalez consulted -Prednisone 40mg Daily. Patient had good response on last dc to steroids. -isolation. hx of VRE #A-fib -cont home rate control -Metoprolol succinate 50mg BID -cont eliquis for AC #CHF -Patient says she is supposed to be on Lasix daily, but has not taken it in a long time. -Please med rec. #HTN -cont home meds -Losartan 25mg #COPD -on home O2 -stable -supplemental O2 #FEN -no Iv fluids -monitor electrolytes -sodium diet #DVT -on eliquis Visit type - Emergency Visit Emergency Visit: Yes ED Registration Date: 04/22/19 Care time: The patient presented to the Emergency Department on the above date and was hospitalized for further evaluation of their emergent condition. - New Patient This patient is new to me today: Yes Date on this admission: 04/28/19 - Critical Care Critical Care patient: No
[2019-04-23] MEDS ORDERED: dilTIAZem HCL 30 MG TABLET (FP) ONE
[2019-04-23] MEDS ORDERED: predniSONE 20 MG TABLET (UD) ONE
[2019-04-23] MEDS ORDERED: ATORVASTATIN CA 10 MG TABLET (FP) ONE (00:01)
[2019-04-23] MEDS: predniSONE 20 MG TABLET (UD) PO SCH ×2 (00:04→11:06)
[2019-04-23] MEDS: ATORVASTATIN CA 10 MG TABLET (FP) PO SCH ×2 (00:05→21:31)
[2019-04-23] MEDS: dilTIAZem HCL 30 MG TABLET (FP) PO SCH ×4 (00:05→21:31)
[2019-04-23] MEDS: ACETAMINOPHEN 325 MG TABLET (FP) PO PRN ×3 (02:21→19:29)
[2019-04-23] MEDS: LINEZOLID 600 MG PREMIX BAG 600 MG in PREMIX 300 IVPB SCH (06:18)
[2019-04-23 07:59] LABS: BASO % 0.1 % (0-2.0); BILIRUBIN,TOTAL 0.4 mg/dL (0.2-1); CALCIUM 8.6 mg/dL (8.5-10.1); CREATININE 0.4 mg/dL (0.55-1.3); EOS % 0.1 % (0-4.5); HEMATOCRIT 39.4 % (32.4-45.2); HEMOGLOBIN 12.6 GM/dL (10.7-15.3); LYMPH % 13.1 % (8-40); MCH 26.4 pg (25.7-33.7); MEAN CELL VOLUME 82.3 fl (80-96); MONO % 1.8 % (3.8-10.2); NEUT % 84.9 % (42.8-82.8); PHOSPHOROUS 3.6 mg/dL (2.5-4.9); PLATELET COUNT 192 K/MM3 (134-434); POTASSIUM 4.5 mmol/L (3.5-5.1); RBC 4.79 M/mm3 (3.60-5.2); TOT PROT 6.1 g/dl (6.4-8.2); WHITE BLOOD COUNT 4.3 K/mm3 (4.0-10.0)
[2019-04-23] MEDS ORDERED: FUROSEMIDE 40 MG TABLET (FP) PO PRN (10:00)
[2019-04-23] MEDS ORDERED: APIXABAN 5 MG TABLET PO SCH (10:00)
[2019-04-23] MEDS ORDERED: AZTREONAM 1 GM in DEXTROSE 5%-WATER - 50 ML IVPB ONE (10:00)
[2019-04-23] MEDS ORDERED: PT OWN MED DRAWER 7, Y5N ONE ×4 (10:43→16:43)
[2019-04-23] MEDS ORDERED: AZTREONAM 1 GM VIAL (RESTRICTED TO ID) ONE ×2 (10:47→16:43)
[2019-04-23] MEDS ORDERED: DEXTROSE 5%-WATER - 50 ML IVPB ONE ×2 (10:47→16:43)
[2019-04-23] MEDS: CYANOCOBALAMIN 1,000 MCG TABLET (FP) PO SCH (11:06)
[2019-04-23] MEDS: LOSARTAN POTASSIUM 25 MG TABLET PO SCH (11:06)
[2019-04-23] MEDS: APIXABAN 5 MG TABLET PO SCH ×2 (11:07→21:31)
[2019-04-23] MEDS: CALCIUM ACETATE/AL SULFATE TOP 1.9 GM/PACKET PACKET TP SCH (11:07)
[2019-04-23] MEDS: SILVER SULFADIAZINE 1% TOP CREAM 50 GM JAR TP SCH (11:30)
--- NOTE | 2019-04-23 12:41 | PN ---
Progress Note (short form) - Note Progress Note: ID CONSULT DICTATED RECURRENT CELLULITIS R LE HX STEROID-RESPONSIVE LE DERMATITIS MULTIPLE ANTIBIOTIC ALLERGIES AWAIT C/S EMPIRIC AZTREONAM/ LINEZOLID DERM EVAL
--- NOTE | 2019-04-23 14:01 | CONS ---
DATE OF CONSULTATION: DATE OF DICTATION: 04/23/2019 INFECTIOUS DISEASE CONSULTATION HISTORY OF PRESENT ILLNESS: The patient is a 74-year-old female with a history of steroid-responsive dermatitis of the lower extremities bilaterally as well as recurrent lower extremity cellulitis, now evaluated for right lower extremity cellulitis. She was seen as an outpatient by her vascular surgeon and was noted to have erythema and weeping from her right lower extremity. She complained of increasing pain of the right leg. She presented to the emergency room where she was admitted with recurrent cellulitis. She denies any recent antibiotic therapy. The weeping was described as serous in nature, not malodorous. She had no associated fever or chills. Patient has a history of MULTIPLE ANTIBIOTIC ALLERGIES. PAST MEDICAL HISTORY: Positive for chronic venostasis dermatitis of the lower extremities bilaterally, recurrent bilateral lower extremity cellulitis, atrial fibrillation, hypertension, hyperlipidemia, COPD, osteoarthritis, rheumatoid arthritis, fibromyalgia, DVT. ALLERGIES: PENICILLIN, CLINDAMYCIN, DOXYCYCLINE, LEVAQUIN, VANCOMYCIN. Patient reports swelling with PENICILLIN and DOXYCYCLINE, rash with CLINDAMYCIN and LEVAQUIN and pruritus with VANCOMYCIN. SOCIAL HISTORY: Resides at home. She has a home health aide. She is wheelchair bound. She is a former smoker. SYSTEMS REVIEW:Neurologic: No loss of consciousness, seizure activity, focal weakness. Cardiac: Negative chest pain or palpitations. Respiratory: Negative cough or sputum production. Gastrointestinal: Negative vomiting or diarrhea. Genitourinary: Negative fever or urinary tract infection. LABORATORY DATA: White count 4.3, hematocrit 39.4, platelet count 192. Creatinine 0.4, total bilirubin 0.4, alkaline phosphatase 108, AST 8. Cultures are pending. Previous cultures have grown ESBL (urine) and Pseudomonas/VRE (wound). PHYSICAL EXAMINATION:General: She is awake and alert. She is in no acute distress. She is not acutely toxic appearing. Vital Signs: Temperature 97.8, blood pressure 124/79, pulse 105, regular, respirations 20 per minute. HEENT: Sclerae anicteric. Cardiac: Heart sounds S1, S2. Lungs: Clear. Abdomen: Soft, obese, nontender. Extremities: Bilateral lower extremity chronic venostasis dermatitis. The left lower extremity has chronic venostasis dermatitis without evidence of cellulitis. Right lower extremity confluent erythema and warmth extending from below the knee to the foot with areas of maceration and superficial ulceration. Serous drainage is noted. No lymphangitis. IMPRESSION: 1. Recurrent cellulitis, right lower extremity. 2. History of steroid-responsive dermatitis. 3. MULTIPLE ANTIBIOTIC ALLERGIES. 4. History of multidrug-resistant organisms. RECOMMENDATIONS: Await cultures. Empiric antibiotic coverage in this patient with MULTIPLE ANTIBIOTIC ALLERGIES with Azactam and linezolid. Vascular evaluation. I would obtain dermatology evaluation as this patient has had a history of poor response to antibiotic therapy but significant improvement in her skin on steroids. Local wound care. Thank you for the kind referral. EFRAIN MOREJON M.D. [facility]/[id number]
--- NOTE | 2019-04-23 15:00 | PN ---
Progress Note (short form) - Note Progress Note: Patient well known to Dr Gonzalez, followed in office for chronic stasis dermatitis. Seen in wound care yesterday by Dr Gonzalez, now admitted with RLE cellulitis. Wound care currently being done with silvadene, DSD, kerlix and evette wrap should be placed from 7Am-7PM. Change dressing daily Dressing instructions placed by Dr Gonzalez. Continue current regimen. Antibiotics per Infectious Disease Bedrest, pt may be out of bed for bathroom and meals. Elevate RLE above level of heart at all times while pt is at rest. Please contact Vascular with any questions or concerns. Above d/w attending Dr Barragan
--- NOTE | 2019-04-23 16:48 | EKG ---
Test Reason : Blood Pressure : / mmHG Vent. Rate : 085 BPM Atrial Rate : 156 BPM P-R Int : 000 ms QRS Dur : 086 ms QT Int : 364 ms P-R-T Axes : 000 081 055 degrees QTc Int : 433 ms ATRIAL FIBRILLATION ABNORMAL ECG WHEN COMPARED WITH ECG OF 10-NOV-2017 19:26, NO SIGNIFICANT CHANGE WAS FOUND Confirmed by TRENT ESPOSITO MD ([id number]) on 04/23/2019 4:48:28 PM Referred By: Confirmed By:TRENT ESPOSITO MD
--- NOTE | 2019-04-23 17:26 | PN ---
Teaching Attending Note Name of Resident: Israel Kaplan ATTENDING PHYSICIAN STATEMENT I saw and evaluated the patient. I reviewed the resident's note and discussed the case with the resident. I agree with the resident's findings and plan as documented. SUBJECTIVE: Ms Torres says her leg is infected but not painful. Denies cp, sob , n/v. OBJECTIVE: Last Vital Signs Temp Pulse Resp BP Pulse Ox 36.9 C 103 H 20 130/69 97 04/23/19 14:48 04/23/19 14:48 04/23/19 14:48 04/23/19 14:48 04/23/19 09:00 Gen: nad, morbidly obese Pulm: ctab w/o w/r/r CV: irreg irreg but rate controlled w/o m/r/g Abd: +bs, s/nt/nd Ext: BLE edema with erythema, RLE with yellowish eschar CBC, BMP 04/23/19 06:35 04/23/19 06:35 ASSESSMENT AND PLAN: Problem List - Problems (1) Cellulitis Assessment/Plan: -chronic but worsening -multiple drug allergies -failed outpatient therapy -ID following -on aztreonam and linezolid -Dr Gonzalez following for wound care -monitor for improvement Code(s): L03.90 - CELLULITIS, UNSPECIFIED Qualifiers: Site of cellulitis: extremity Site of cellulitis of extremity: lower extremity Laterality: right Qualified Code(s): L03.115 - Cellulitis of right lower limb (2) Venous stasis dermatitis Assessment/Plan: -wound care per Dr Gonzalez Code(s): I87.2 - VENOUS INSUFFICIENCY (CHRONIC) (PERIPHERAL) Qualifiers: Laterality: right Qualified Code(s): I87.2 - Venous insufficiency (chronic ) (peripheral) (3) Atrial fibrillation Assessment/Plan: -rate controlled -on eliquis Code(s): I48.91 - UNSPECIFIED ATRIAL FIBRILLATION Qualifiers: Atrial fibrillation type: chronic Qualified Code(s): I48.2 - Chronic atrial fibrillation (4) HLD (hyperlipidemia) Assessment/Plan: -continue statin Code(s): E78.5 - HYPERLIPIDEMIA, UNSPECIFIED (5) HTN (hypertension) Assessment/Plan: -well controlled Code(s): I10 - ESSENTIAL (PRIMARY) HYPERTENSION (6) Lymphedema of both lower extremities Assessment/Plan: -chronic Code(s): I89.0 - LYMPHEDEMA, NOT ELSEWHERE CLASSIFIED (7) Obesity Assessment/Plan: -chronic Code(s): E66.9 - OBESITY, UNSPECIFIED Qualifiers: Obesity type: with alveolar hypoventilation Obesity classification: adult class 3 (BMI >= 40) Serious obesity comorbidity presence: with serious comorbidity Body mass index: BMI 40.0-44.9 Qualified Code(s): E66.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
--- NOTE | 2019-04-23 17:54 | PN ---
Physical Exam: SUBJECTIVE: Patient seen and examined at bedside. Reports soreness on her RLE but has peripheral neuropathy so has decreased sensation. No fevers or chills. OBJECTIVE: Vital Signs Temperature 98.4 F 04/23/19 14:48 Pulse Rate 103 H 04/23/19 14:48 Respiratory Rate 20 04/23/19 14:48 Blood Pressure 130/69 04/23/19 14:48 O2 Sat by Pulse Oximetry (%) 97 04/23/19 09:00 GENERAL: The patient is awake, alert, and fully oriented, in no acute distress. EYES: extraocular movements intact, sclera anicteric, conjunctiva clear. LUNGS: Breath sounds equal, clear to auscultation bilaterally HEART: Regular rate and rhythm, S1, S2 ABDOMEN: Soft, nontender, nondistended, normoactive bowel sounds EXTREMITIES: RLE with warmth, redness, open lesions, some with yellow drainage from foot to knee. RLE tender to touch from foot to knee. NEUROLOGICAL: Cranial nerves II through XII grossly intact. Normal speech, gait not observed. PSYCH: Normal mood, normal affect. SKIN: Warm, dry, as noted in extremities. Laboratory Results - last 24 hr 04/22/19 04/22/19 04/22/19 19:43 19:43 19:43 WBC 6.3 RBC 5.15 Hgb 13.5 Hct 43.5 MCV 84.5 MCH 26.3 MCHC 31.1 L RDW 14.2 D Plt Count 198 D MPV 7.8 Absolute Neuts (auto) 4.2 Neutrophils % 66.9 Lymphocytes % 19.2 D Monocytes % 9.2 Eosinophils % 4.5 D Basophils % 0.2 Nucleated RBC % 0 PT with INR 14.10 H INR 1.19 H PTT (Actin FS) 47.1 H Sodium 141 Potassium 4.6 Chloride 98 Carbon Dioxide 35 H Anion Gap 8 BUN 16 Creatinine 0.5 L Est GFR (CKD-EPI)AfAm 112.07 Est GFR (CKD-EPI)NonAf 96.69 Random Glucose 89 Calcium 8.9 Phosphorus Magnesium 1.9 Total Bilirubin 0.4 AST 13 L ALT 14 Alkaline Phosphatase 113 Total Protein 6.9 Albumin 3.3 L 04/23/19 04/23/19 06:35 06:35 WBC 4.3 RBC 4.79 Hgb 12.6 Hct 39.4 MCV 82.3 MCH 26.4 MCHC 32.0 RDW 14.0 Plt Count 192 MPV 8.0 Absolute Neuts (auto) 3.6 Neutrophils % 84.9 H D Lymphocytes % 13.1 D Monocytes % 1.8 L D Eosinophils % 0.1 D Basophils % 0.1 Nucleated RBC % 0 PT with INR INR PTT (Actin FS) Sodium 140 Potassium 4.5 Chloride 102 Carbon Dioxide 35 H Anion Gap 3 L BUN 13 Creatinine 0.4 L Est GFR (CKD-EPI)AfAm 120.60 Est GFR (CKD-EPI)NonAf 104.06 Random Glucose 173 H Calcium 8.6 Phosphorus 3.6 Magnesium 2.0 Total Bilirubin 0.4 AST 8 L ALT 11 L Alkaline Phosphatase 103 Total Protein 6.1 L Albumin 3.0 L Active Medications Generic Name Dose Route Start Last Admin Trade Name Freq PRN Reason Stop Dose Admin Acetaminophen 650 mg 04/23/19 02:12 04/23/19 06:29 Tylenol - PO 650 mg Q4H PRN Administration PAIN LEVEL 6-10 Aluminum Sulfate/Calcium Acetate 1.9 gm 04/23/19 10:00 04/23/19 11:07 [place] - TP 1.9 gm DAILY BELL Administration Apixaban 5 mg 04/23/19 10:00 04/23/19 11:07 Eliquis - PO 5 mg BID BELL Administration Atorvastatin Calcium 10 mg 04/22/19 22:00 04/23/19 00:05 Lipitor - PO 10 mg HS BELL Administration Cyanocobalamin 1,000 mcg 04/23/19 10:00 04/23/19 11:06 Vitamin B12 - PO 1,000 mcg DAILY BE[facility] Administration Diltiazem HCl 30 mg 04/22/19 22:00 04/23/19 14:18 Cardizem - PO 30 mg TID BELL Administration Diphenhydramine HCl 25 mg 04/22/19 21:31 Benadryl - PO HS PRN ALLERGIES Aztreonam 1 gm/ Dextrose 50 mls @ 100 mls/hr 04/23/19 18:00 IVPB Q8H-IV BELL Protocol Linezolid 600 mg in 300 mls @ 300 mls/hr 04/23/19 18:00 Zyvox 600 Mg Premix Bag (Restricted To Id) - IVPB Q12H BELL Protocol Losartan Potassium 25 mg 04/23/19 10:00 04/23/19 11:06 Cozaar - PO 25 mg DAILY [facility] Administration Metoprolol Succinate 50 mg 04/22/19 22:00 04/23/19 11:06 Toprol Xl - PO 50 mg BID BELL Administration Prednisone 40 mg 04/22/19 21:45 04/23/19 11:06 Deltasone - PO 40 mg DAILY [facility] Administration Silver Sulfadiazine 1 applic 04/23/19 11:30 04/23/19 11:30 Silvadene - TP 1 applic DAILY BE[facility] Administration ASSESSMENT/PLAN: 74 y/o F w/PMH of afib (on eliquis), OA, RA, Sjogrens, HTN, COPD (on 4L O2 at home), venous insufficiency, DVT presents to the ER after being sent in by Dr. Gonzalez for RLE wound evaluation. Admitted for cellulitis of RLE. -RLE cellulitis -c/w aztreonam, linezolid -ID following -Prednisone 40 mg po qd as that has helped her with similar symptoms in the past -Wound care per Dr. Gonzalez recs -Afib -c/w cardizem, toprol xl -c/w eliquis -HTN -c/w losartan, cardizem, toprol xl -HLD -c/w lipitor -COPD -not in acute exacerbation -uses O2 at home (4 liters) -O2 supplementation to keep oxygen saturation >90% -RA, OA -pain control with tylenol -Hx of DVT -on eliquis currently -DVT ppx -on eliquis -FEN -no fluids -monitor electrolytes -sodium controlled diet -Dispo: Monitor on m/s Visit type - Emergency Visit Emergency Visit: Yes ED Registration Date: 04/22/19 Care time: The patient presented to the Emergency Department on the above date and was hospitalized for further evaluation of their emergent condition. - New Patient This patient is new to me today: No - Critical Care Critical Care patient: No
[2019-04-23] MEDS: LINEZOLID 600 MG PREMIX BAG 600 MG/300 ML BAG IVPB SCH (18:06)
[2019-04-23] MEDS: AZTREONAM 1 GM in DEXTROSE 5%-WATER - 50 ML IVPB SCH (18:06)
[2019-04-23] MEDS: diphenhydrAMINE HCL 25 MG CAPSULE (FP) PO PRN (21:31)
[2019-04-24] MEDS ORDERED: AZTREONAM 1 GM VIAL (RESTRICTED TO ID) ONE ×3 (00:31→16:37)
[2019-04-24] MEDS ORDERED: DEXTROSE 5%-WATER - 50 ML IVPB ONE ×3 (00:31→16:37)
[2019-04-24] MEDS: AZTREONAM 1 GM in DEXTROSE 5%-WATER - 50 ML IVPB SCH ×3 (02:31→16:59)
[2019-04-24] MEDS ORDERED: PT OWN MED DRAWER 7, Y5N ONE ×2 (05:13→17:13)
[2019-04-24] MEDS: ACETAMINOPHEN 325 MG TABLET (FP) PO PRN (05:18)
[2019-04-24] MEDS: LINEZOLID 600 MG PREMIX BAG 600 MG/300 ML BAG IVPB SCH ×2 (05:19→17:38)
[2019-04-24] MEDS: dilTIAZem HCL 30 MG TABLET (FP) PO SCH ×3 (05:19→21:56)
[2019-04-24 07:47] LABS: BASO % 0.2 % (0-2.0); EOS % 0.2 % (0-4.5); HEMOGLOBIN 12.8 GM/dL (10.7-15.3); MCH 26.6 pg (25.7-33.7); MCHC 32.1 g/dl (32.0-36.0); MEAN CELL VOLUME 82.9 fl (80-96); MEAN PLT VOLUME 7.9 fl (7.5-11.1); MONO % 7.6 % (3.8-10.2); PLATELET COUNT 215 K/MM3 (134-434); RBC 4.83 M/mm3 (3.60-5.2); RDW 14.2 % (11.6-15.6); WHITE BLOOD COUNT 6.6 K/mm3 (4.0-10.0)
[2019-04-24 08:59] LABS: ALBUMIN 2.9 g/dl (3.4-5.0); CREATININE 0.4 mg/dL (0.55-1.3); MAGNESIUM 2.2 mg/dL (1.8-2.4); PHOSPHOROUS 3.4 mg/dL (2.5-4.9); POTASSIUM 4.3 mmol/L (3.5-5.1)
[2019-04-24] MEDS: LOSARTAN POTASSIUM 25 MG TABLET PO SCH (09:28)
[2019-04-24] MEDS: CYANOCOBALAMIN 1,000 MCG TABLET (FP) PO SCH (09:28)
[2019-04-24] MEDS: predniSONE 20 MG TABLET (UD) PO SCH (09:28)
[2019-04-24] MEDS: APIXABAN 5 MG TABLET PO SCH ×2 (09:28→21:56)
[2019-04-24] MEDS: LACTOBACILLUS ACIDOPHILUS 1 TABLET PO SCH (10:31)
[2019-04-24 13:22] VITALS: BMI 43.5
[2019-04-24] MEDS: CALCIUM ACETATE/AL SULFATE TOP 1.9 GM/PACKET PACKET TP SCH (14:19)
[2019-04-24] MEDS: SILVER SULFADIAZINE 1% TOP CREAM 50 GM JAR TP SCH (15:12)
--- NOTE | 2019-04-24 15:45 | PN ---
Progress Note, Physician History of Present Illness: NO C/O LEG PAIN NO C/O F/C TOLERATING ANTIBIOTICS - Current Medication List Current Medications: Active Medications Acetaminophen (Tylenol -) 650 mg PO Q4H PRN PRN Reason: PAIN LEVEL 6-10 Last Admin: 04/24/19 05:18 Dose: 650 mg Aluminum Sulfate/Calcium Acetate ([place] -) 1.9 gm TP DAILY [facility] Last Admin: 04/24/19 14:19 Dose: 1.9 gm Apixaban (Eliquis -) 5 mg PO BID BELL Last Admin: 04/24/19 09:28 Dose: 5 mg Atorvastatin Calcium (Lipitor -) 10 mg PO HS BELL Last Admin: 04/23/19 21:31 Dose: 10 mg Cyanocobalamin (Vitamin B12 -) 1,000 mcg PO DAILY [facility] Last Admin: 04/24/19 09:28 Dose: 1,000 mcg Diltiazem HCl (Cardizem -) 30 mg PO TID [facility] Last Admin: 04/24/19 15:13 Dose: 30 mg Diphenhydramine HCl (Benadryl -) 25 mg PO HS PRN PRN Reason: ALLERGIES Last Admin: 04/23/19 21:31 Dose: 25 mg Aztreonam 1 gm/ Dextrose 50 mls @ 100 mls/hr IVPB Q8H-IV BELL; Protocol Last Admin: 04/24/19 09:27 Dose: 100 mls/hr Linezolid (Zyvox 600 Mg Premix Bag (Restricted To Id) -) 600 mg in 300 mls @ 300 mls/hr IVPB Q12H BELL; Protocol Last Admin: 04/24/19 05:19 Dose: 300 mls/hr Lactobacillus Acidophilus (Bacid -) 1 tab PO DAILY [facility] Last Admin: 04/24/19 10:31 Dose: 1 tab Losartan Potassium (Cozaar -) 25 mg PO DAILY [facility] Last Admin: 04/24/19 09:28 Dose: 25 mg Metoprolol Succinate (Toprol Xl -) 50 mg PO BID [facility] Last Admin: 04/24/19 09:28 Dose: 50 mg Prednisone (Deltasone -) 40 mg PO DAILY [facility] Last Admin: 04/24/19 09:28 Dose: 40 mg Silver Sulfadiazine (Silvadene -) 1 applic TP DAILY [facility] Last Admin: 04/24/19 15:12 Dose: 1 applic - Objective Vital Signs: Vital Signs Temperature 98.2 F 04/24/19 09:54 Pulse Rate 72 04/24/19 09:54 Respiratory Rate 20 04/24/19 09:54 Blood Pressure 130/67 04/24/19 09:54 O2 Sat by Pulse Oximetry (%) 97 04/23/19 21:00 Constitutional: Yes: No Distress, Obese Cardiovascular: Yes: Regular Rate and Rhythm, S1, S2 Respiratory: Yes: CTA Bilaterally Gastrointestinal: Yes: Normal Bowel Sounds, Soft. No: Tenderness Extremities: Yes: Other (DECREASED ERYTHEMA R LE; NO DRAINAGE) Labs: CBC, BMP 04/24/19 06:38 04/24/19 06:38 INR, PTT INR 1.19 (0.83-1.09) H 04/22/19 19:43 Assessment/Plan RECURRENT LE CELLULITIS IMPROVED ON ANTIBIOTICS/ STEROIDS MULTIPLE ANTIBIOTIC ALLERGIES CONTINUE LINEZOLID/ AZTREONAM
--- NOTE | 2019-04-24 16:15 | PN ---
Teaching Attending Note Name of Resident: Israel Kaplan ATTENDING PHYSICIAN STATEMENT I saw and evaluated the patient. I reviewed the resident's note and discussed the case with the resident. I agree with the resident's findings and plan as documented. SUBJECTIVE: Ms Torres is without complaint. Denies cp, sob, n/v. Feels her leg is improving slightly OBJECTIVE: Last Vital Signs Temp Pulse Resp BP Pulse Ox 36.7 C 91 H 22 H 130/61 97 04/24/19 14:54 04/24/19 14:54 04/24/19 14:54 04/24/19 14:54 04/23/19 21:00 Gen: nad Pulm: ctab w/o w/r/r CV: irreg irreg w/o m/r/g Abd: +bs, s/nt/nd Ext: RLE wrapped and elevated CBC, BMP 04/24/19 06:38 ASSESSMENT AND PLAN: (1) Cellulitis Assessment/Plan: -appreciate wound care and ID assistance -wound care instructions per Dr Gonzalez -continue aztreonam and linezolid -improving Code(s): L03.90 - CELLULITIS, UNSPECIFIED Qualifiers: Site of cellulitis: extremity Site of cellulitis of extremity: lower extremity Laterality: right Qualified Code(s): L03.115 - Cellulitis of right lower limb (2) Venous stasis dermatitis Assessment/Plan: -wound care per Dr Gonzalez -continue prednisone Code(s): I87.2 - VENOUS INSUFFICIENCY (CHRONIC) (PERIPHERAL) Qualifiers: Laterality: right Qualified Code(s): I87.2 - Venous insufficiency (chronic ) (peripheral) (3) Atrial fibrillation Assessment/Plan: -rate controlled -on eliquis Code(s): I48.91 - UNSPECIFIED ATRIAL FIBRILLATION Qualifiers: Atrial fibrillation type: chronic Qualified Code(s): I48.2 - Chronic atrial fibrillation (4) HLD (hyperlipidemia) Assessment/Plan: -continue statin Code(s): E78.5 - HYPERLIPIDEMIA, UNSPECIFIED (5) HTN (hypertension) Assessment/Plan: -well controlled Code(s): I10 - ESSENTIAL (PRIMARY) HYPERTENSION (6) Lymphedema of both lower extremities Assessment/Plan: -chronic Code(s): I89.0 - LYMPHEDEMA, NOT ELSEWHERE CLASSIFIED (7) Obesity Assessment/Plan: -chronic Code(s): E66.9 - OBESITY, UNSPECIFIED Qualifiers: Obesity type: with alveolar hypoventilation Obesity classification: adult class 3 (BMI >= 40) Serious obesity comorbidity presence: with serious comorbidity Body mass index: BMI 40.0-44.9 Qualified Code(s): E66.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 Problem List - Problems (1) Cellulitis Code(s): L03.90 - CELLULITIS, UNSPECIFIED Qualifiers: Site of cellulitis: extremity Site of cellulitis of extremity: lower extremity Laterality: right Qualified Code(s): L03.115 - Cellulitis of right lower limb (2) Venous stasis dermatitis Code(s): I87.2 - VENOUS INSUFFICIENCY (CHRONIC) (PERIPHERAL) Qualifiers: Laterality: right Qualified Code(s): I87.2 - Venous insufficiency (chronic ) (peripheral) (3) Atrial fibrillation Code(s): I48.91 - UNSPECIFIED ATRIAL FIBRILLATION Qualifiers: Atrial fibrillation type: chronic Qualified Code(s): I48.2 - Chronic atrial fibrillation (4) HLD (hyperlipidemia) Code(s): E78.5 - HYPERLIPIDEMIA, UNSPECIFIED (5) HTN (hypertension) Code(s): I10 - ESSENTIAL (PRIMARY) HYPERTENSION (6) Lymphedema of both lower extremities Code(s): I89.0 - LYMPHEDEMA, NOT ELSEWHERE CLASSIFIED (7) Obesity Code(s): E66.9 - OBESITY, UNSPECIFIED Qualifiers: Obesity type: with alveolar hypoventilation Obesity classification: adult class 3 (BMI >= 40) Serious obesity comorbidity presence: with serious comorbidity Body mass index: BMI 40.0-44.9 Qualified Code(s): E66.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
--- NOTE | 2019-04-24 16:28 | PN ---
Physical Exam: SUBJECTIVE: Patient seen and examined at bedside. Has stomach upset today. No other complaints. OBJECTIVE: Vital Signs Temperature 98.0 F 04/24/19 14:54 Pulse Rate 91 H 04/24/19 14:54 Respiratory Rate 22 H 04/24/19 14:54 Blood Pressure 130/61 04/24/19 14:54 O2 Sat by Pulse Oximetry (%) 97 04/23/19 21:00 GENERAL: The patient is awake, alert, and fully oriented, in no acute distress. EYES: extraocular movements intact, sclera anicteric, conjunctiva clear. LUNGS: Breath sounds equal, clear to auscultation bilaterally HEART: Regular rate and rhythm, S1, S2 ABDOMEN: Soft, nontender, nondistended, normoactive bowel sounds EXTREMITIES: RLE wrapped. NEUROLOGICAL: Cranial nerves II through XII grossly intact. Normal speech, gait not observed. PSYCH: Normal mood, normal affect. SKIN: Warm, dry, as noted in extremities. Laboratory Results - last 24 hr 04/24/19 04/24/19 04/24/19 06:01 06:38 06:38 WBC 6.6 RBC 4.83 Hgb 12.8 Hct 40.0 MCV 82.9 MCH 26.6 MCHC 32.1 RDW 14.2 Plt Count 215 MPV 7.9 Absolute Neuts (auto) 5.0 Neutrophils % 75.0 Lymphocytes % 17.0 D Monocytes % 7.6 D Eosinophils % 0.2 D Basophils % 0.2 Nucleated RBC % 0 Sodium 143 Cancelled Potassium 4.3 Cancelled Chloride 106 Cancelled Carbon Dioxide 33 H Cancelled Anion Gap 4 L Cancelled BUN 14 Cancelled Creatinine 0.4 L Cancelled Est GFR (CKD-EPI)AfAm 120.60 Cancelled Est GFR (CKD-EPI)NonAf 104.06 Cancelled Random Glucose 107 H Cancelled Calcium 9.0 Cancelled Phosphorus 3.4 Cancelled Magnesium 2.2 Cancelled Albumin 2.9 L Cancelled Active Medications Generic Name Dose Route Start Last Admin Trade Name Freq PRN Reason Stop Dose Admin Acetaminophen 650 mg 04/23/19 02:12 04/24/19 05:18 Tylenol - PO 650 mg Q4H PRN Administration PAIN LEVEL 6-10 Aluminum Sulfate/Calcium Acetate 1.9 gm 04/23/19 10:00 04/24/19 14:19 [place] - TP 1.9 gm DAILY BELL Administration Apixaban 5 mg 04/23/19 10:00 04/24/19 09:28 Eliquis - PO 5 mg BID BELL Administration Atorvastatin Calcium 10 mg 04/22/19 22:00 04/23/19 21:31 Lipitor - PO 10 mg HS BELL Administration Cyanocobalamin 1,000 mcg 04/23/19 10:00 04/24/19 09:28 Vitamin B12 - PO 1,000 mcg DAILY [facility] Administration Diltiazem HCl 30 mg 04/22/19 22:00 04/24/19 15:13 Cardizem - PO 30 mg TID BELL Administration Diphenhydramine HCl 25 mg 04/22/19 21:31 04/23/19 21:31 Benadryl - PO 25 mg HS PRN Administration ALLERGIES Aztreonam 1 gm/ Dextrose 50 mls @ 100 mls/hr 04/23/19 18:00 04/24/19 09:27 IVPB 100 mls/hr Q8H-IV BELL Administration Protocol Linezolid 600 mg in 300 mls @ 300 mls/hr 04/23/19 18:00 04/24/19 05:19 Zyvox 600 Mg Premix Bag (Restricted To Id) - IVPB 300 mls/hr Q12H BELL Administration Protocol Lactobacillus Acidophilus 1 tab 04/24/19 10:00 04/24/19 10:31 Bacid - PO 1 tab DAILY BELL Administration Losartan Potassium 25 mg 04/23/19 10:00 04/24/19 09:28 Cozaar - PO 25 mg DAILY [facility] Administration Metoprolol Succinate 50 mg 04/22/19 22:00 04/24/19 09:28 Toprol Xl - PO 50 mg BID BELL Administration Prednisone 40 mg 04/22/19 21:45 04/24/19 09:28 Deltasone - PO 40 mg DAILY [facility] Administration Silver Sulfadiazine 1 applic 04/23/19 11:30 04/24/19 15:12 Silvadene - TP 1 applic DAILY [facility] Administration ASSESSMENT/PLAN: 74 y/o F w/PMH of afib (on eliquis), OA, RA, Sjogrens, HTN, COPD (on 4L O2 at home), venous insufficiency, DVT presents to the ER after being sent in by Dr. Gonzalez for RLE wound evaluation. Admitted for cellulitis of RLE. -RLE cellulitis -c/w aztreonam, linezolid -ID following -Prednisone 40 mg po qd as that has helped her with similar symptoms in the past -Wound care per Dr. Gonzalez recs -Afib -c/w cardizem, toprol xl -c/w eliquis -Upset stomach -Bacid added -HTN -c/w losartan, cardizem, toprol xl -HLD -c/w lipitor -COPD -not in acute exacerbation -uses O2 at home (4 liters) -O2 supplementation to keep oxygen saturation >90% -RA, OA -pain control with tylenol -Hx of DVT -on eliquis currently -DVT ppx -on eliquis -FEN -no fluids -monitor electrolytes -sodium controlled diet -Dispo: Monitor on m/s Visit type - Emergency Visit Emergency Visit: Yes ED Registration Date: 04/22/19 Care time: The patient presented to the Emergency Department on the above date and was hospitalized for further evaluation of their emergent condition. - New Patient This patient is new to me today: No - Critical Care Critical Care patient: No
[2019-04-24] MEDS: ATORVASTATIN CA 10 MG TABLET (FP) PO SCH (21:56)
[2019-04-25] MEDS ORDERED: AZTREONAM 1 GM VIAL (RESTRICTED TO ID) ONE ×3 (01:32→16:39)
[2019-04-25] MEDS ORDERED: DEXTROSE 5%-WATER - 50 ML IVPB ONE ×3 (01:32→16:39)
[2019-04-25] MEDS: AZTREONAM 1 GM in DEXTROSE 5%-WATER - 50 ML IVPB SCH ×3 (02:04→17:03)
[2019-04-25] MEDS: dilTIAZem HCL 30 MG TABLET (FP) PO SCH ×3 (05:50→21:56)
[2019-04-25] MEDS: LINEZOLID 600 MG PREMIX BAG 600 MG/300 ML BAG IVPB SCH ×2 (05:50→17:53)
[2019-04-25] MEDS: ACETAMINOPHEN 325 MG TABLET (FP) PO PRN (05:58)
[2019-04-25 08:04] LABS: HEMATOCRIT 41.9 % (32.4-45.2); HEMOGLOBIN 13.4 GM/dL (10.7-15.3); MCH 26.5 pg (25.7-33.7); MEAN CELL VOLUME 82.7 fl (80-96); MEAN PLT VOLUME 7.6 fl (7.5-11.1); PLATELET COUNT 214 K/MM3 (134-434); RBC 5.06 M/mm3 (3.60-5.2); RDW 14.4 % (11.6-15.6)
[2019-04-25 08:52] LABS: ALBUMIN 2.9 g/dl (3.4-5.0); CALCIUM 8.8 mg/dL (8.5-10.1); CREATININE 0.4 mg/dL (0.55-1.3); POTASSIUM 4.1 mmol/L (3.5-5.1)
[2019-04-25] MEDS: predniSONE 20 MG TABLET (UD) PO SCH (09:59)
[2019-04-25] MEDS: APIXABAN 5 MG TABLET PO SCH ×2 (09:59→21:56)
[2019-04-25] MEDS: LOSARTAN POTASSIUM 25 MG TABLET PO SCH (09:59)
[2019-04-25] MEDS: CYANOCOBALAMIN 1,000 MCG TABLET (FP) PO SCH (09:59)
[2019-04-25] MEDS: LACTOBACILLUS ACIDOPHILUS 1 TABLET PO SCH (09:59)
--- NOTE | 2019-04-25 13:33 | PN ---
Progress Note, Physician Chief Complaint: Ms Torres complains of loose stool today. Denies cp, sob, n/v. Hoping to go home either Mon/Tu. - Current Medication List Current Medications: Active Medications Acetaminophen (Tylenol -) 650 mg PO Q4H PRN PRN Reason: PAIN LEVEL 6-10 Last Admin: 04/25/19 05:58 Dose: 650 mg Aluminum Sulfate/Calcium Acetate ([place] -) 1.9 gm TP DAILY [facility] Last Admin: 04/24/19 14:19 Dose: 1.9 gm Apixaban (Eliquis -) 5 mg PO BID [facility] Last Admin: 04/25/19 09:59 Dose: 5 mg Atorvastatin Calcium (Lipitor -) 10 mg PO HS [facility] Last Admin: 04/24/19 21:56 Dose: 10 mg Cyanocobalamin (Vitamin B12 -) 1,000 mcg PO DAILY [facility] Last Admin: 04/25/19 09:59 Dose: 1,000 mcg Diltiazem HCl (Cardizem -) 30 mg PO TID [facility] Last Admin: 04/25/19 05:50 Dose: 30 mg Diphenhydramine HCl (Benadryl -) 25 mg PO HS PRN PRN Reason: ALLERGIES Last Admin: 04/23/19 21:31 Dose: 25 mg Guaifenesin (Mucinex -) 600 mg PO BID [facility] Aztreonam 1 gm/ Dextrose 50 mls @ 100 mls/hr IVPB Q8H-IV [facility]; Protocol Last Admin: 04/25/19 09:58 Dose: 100 mls/hr Linezolid (Zyvox 600 Mg Premix Bag (Restricted To Id) -) 600 mg in 300 mls @ 300 mls/hr IVPB Q12H [facility]; Protocol Last Admin: 04/25/19 05:50 Dose: 300 mls/hr Lactobacillus Acidophilus (Bacid -) 1 tab PO DAILY [facility] Last Admin: 04/25/19 09:59 Dose: 1 tab Losartan Potassium (Cozaar -) 25 mg PO DAILY [facility] Last Admin: 04/25/19 09:59 Dose: 25 mg Metoprolol Succinate (Toprol Xl -) 50 mg PO BID [facility] Last Admin: 04/25/19 09:59 Dose: 50 mg Prednisone (Deltasone -) 40 mg PO DAILY [facility] Last Admin: 04/25/19 09:59 Dose: 40 mg Silver Sulfadiazine (Silvadene -) 1 applic TP DAILY [facility] Last Admin: 04/24/19 15:12 Dose: 1 applic - Objective Vital Signs: Vital Signs Temperature 36.8 C 04/25/19 10:00 Pulse Rate 78 04/25/19 10:00 Respiratory Rate 18 04/25/19 10:00 Blood Pressure 128/72 04/25/19 10:00 O2 Sat by Pulse Oximetry (%) 95 04/24/19 21:00 Constitutional: Yes: No Distress, Calm, Obese Cardiovascular: Yes: Regular Rate and Rhythm. No: Gallop, Murmur, Rub Respiratory: Yes: Regular, CTA Bilaterally. No: Rales, Rhonchi, Wheezes Gastrointestinal: Yes: Normal Bowel Sounds, Soft. No: Distention, Tenderness Extremities: Yes: Other (wrapped) Edema: Yes Edema: LLE: 2+, RLE: 2+ Labs: CBC, BMP 04/25/19 06:00 04/25/19 06:00 INR, PTT INR 1.19 (0.83-1.09) H 04/22/19 19:43 Problem List - Problems (1) Cellulitis Code(s): L03.90 - CELLULITIS, UNSPECIFIED Qualifiers: Site of cellulitis: extremity Site of cellulitis of extremity: lower extremity Laterality: right Qualified Code(s): L03.115 - Cellulitis of right lower limb (2) Venous stasis dermatitis Code(s): I87.2 - VENOUS INSUFFICIENCY (CHRONIC) (PERIPHERAL) Qualifiers: Laterality: right Qualified Code(s): I87.2 - Venous insufficiency (chronic ) (peripheral) (3) Atrial fibrillation Code(s): I48.91 - UNSPECIFIED ATRIAL FIBRILLATION Qualifiers: Atrial fibrillation type: chronic Qualified Code(s): I48.2 - Chronic atrial fibrillation (4) HLD (hyperlipidemia) Code(s): E78.5 - HYPERLIPIDEMIA, UNSPECIFIED (5) HTN (hypertension) Code(s): I10 - ESSENTIAL (PRIMARY) HYPERTENSION (6) Lymphedema of both lower extremities Code(s): I89.0 - LYMPHEDEMA, NOT ELSEWHERE CLASSIFIED (7) Obesity Code(s): E66.9 - OBESITY, UNSPECIFIED Qualifiers: Obesity type: with alveolar hypoventilation Obesity classification: adult class 3 (BMI >= 40) Serious obesity comorbidity presence: with serious comorbidity Body mass index: BMI 40.0-44.9 Qualified Code(s): E66.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 Assessment/Plan (1) Cellulitis Assessment/Plan: -appreciate wound care and ID assistance -wound care instructions per Dr Gonzalez -continue aztreonam and linezolid -improving Code(s): L03.90 - CELLULITIS, UNSPECIFIED Qualifiers: Site of cellulitis: extremity Site of cellulitis of extremity: lower extremity Laterality: right Qualified Code(s): L03.115 - Cellulitis of right lower limb (2) Venous stasis dermatitis Assessment/Plan: -wound care per Dr Gonzalez -continue prednisone Code(s): I87.2 - VENOUS INSUFFICIENCY (CHRONIC) (PERIPHERAL) Qualifiers: Laterality: right Qualified Code(s): I87.2 - Venous insufficiency (chronic ) (peripheral) (3) Atrial fibrillation Assessment/Plan: -rate controlled -on eliquis Code(s): I48.91 - UNSPECIFIED ATRIAL FIBRILLATION Qualifiers: Atrial fibrillation type: chronic Qualified Code(s): I48.2 - Chronic atrial fibrillation (4) HLD (hyperlipidemia) Assessment/Plan: -continue statin Code(s): E78.5 - HYPERLIPIDEMIA, UNSPECIFIED (5) HTN (hypertension) Assessment/Plan: -well controlled Code(s): I10 - ESSENTIAL (PRIMARY) HYPERTENSION (6) Lymphedema of both lower extremities Assessment/Plan: -chronic Code(s): I89.0 - LYMPHEDEMA, NOT ELSEWHERE CLASSIFIED (7) Obesity Assessment/Plan: -chronic Code(s): E66.9 - OBESITY, UNSPECIFIED Qualifiers: Obesity type: with alveolar hypoventilation Obesity classification: adult class 3 (BMI >= 40) Serious obesity comorbidity presence: with serious comorbidity Body mass index: BMI 40.0-44.9 Qualified Code(s): E66.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 Dispo -await ID recommendations when can stop IV antibiotics
[2019-04-25] MEDS: CALCIUM ACETATE/AL SULFATE TOP 1.9 GM/PACKET PACKET TP SCH (13:53)
[2019-04-25] MEDS: guaiFENesin 600 MG TABLET.ER (FP) PO SCH ×2 (13:54→21:56)
[2019-04-25] MEDS: SILVER SULFADIAZINE 1% TOP CREAM 50 GM JAR TP SCH (14:50)
[2019-04-25] MEDS ORDERED: PT OWN MED DRAWER 7, Y5N ONE (17:28)
[2019-04-25] MEDS: ATORVASTATIN CA 10 MG TABLET (FP) PO SCH (21:56)
[2019-04-26] MEDS: diphenhydrAMINE HCL 25 MG CAPSULE (FP) PO PRN (00:22)
[2019-04-26] MEDS ORDERED: AZTREONAM 1 GM VIAL (RESTRICTED TO ID) ONE ×3 (01:51→18:19)
[2019-04-26] MEDS ORDERED: DEXTROSE 5%-WATER - 50 ML IVPB ONE ×3 (01:52→18:20)
[2019-04-26] MEDS: AZTREONAM 1 GM in DEXTROSE 5%-WATER - 50 ML IVPB SCH ×3 (02:14→18:56)
[2019-04-26] MEDS ORDERED: PT OWN MED DRAWER 7, Y5N ONE ×2 (05:39→19:00)
[2019-04-26] MEDS: LINEZOLID 600 MG PREMIX BAG 600 MG/300 ML BAG IVPB SCH ×2 (05:46→19:03)
[2019-04-26] MEDS: dilTIAZem HCL 30 MG TABLET (FP) PO SCH ×2 (05:49→14:56)
[2019-04-26 07:22] LABS: BASO % 0.1 % (0-2.0); EOS % 1.3 % (0-4.5); HEMATOCRIT 43.6 % (32.4-45.2); HEMOGLOBIN 13.9 GM/dL (10.7-15.3); LYMPH % 33.9 % (8-40); MCH 26.3 pg (25.7-33.7); MCHC 31.9 g/dl (32.0-36.0); MEAN CELL VOLUME 82.5 fl (80-96); MEAN PLT VOLUME 7.5 fl (7.5-11.1); MONO % 8.8 % (3.8-10.2); NEUT % 55.9 % (42.8-82.8); PLATELET COUNT 204 K/MM3 (134-434); RBC 5.28 M/mm3 (3.60-5.2); RDW 14.2 % (11.6-15.6); WHITE BLOOD COUNT 5.6 K/mm3 (4.0-10.0)
[2019-04-26 07:45] LABS: CALCIUM 8.9 mg/dL (8.5-10.1); CREATININE 0.5 mg/dL (0.55-1.3); MAGNESIUM 2.2 mg/dL (1.8-2.4); POTASSIUM 4.1 mmol/L (3.5-5.1)
[2019-04-26] MEDS: APIXABAN 5 MG TABLET PO SCH (11:04)
[2019-04-26] MEDS: LACTOBACILLUS ACIDOPHILUS 1 TABLET PO SCH (11:04)
[2019-04-26] MEDS: LOSARTAN POTASSIUM 25 MG TABLET PO SCH (11:04)
[2019-04-26] MEDS: guaiFENesin 600 MG TABLET.ER (FP) PO SCH (11:04)
[2019-04-26] MEDS: CYANOCOBALAMIN 1,000 MCG TABLET (FP) PO SCH (11:04)
[2019-04-26] MEDS: predniSONE 20 MG TABLET (UD) PO SCH (11:05)
--- NOTE | 2019-04-26 12:25 | PN ---
Progress Note, Physician Chief Complaint: Ms Torres is without complaint today. Denies cp, sob, n/v. - Current Medication List Current Medications: Active Medications Acetaminophen (Tylenol -) 650 mg PO Q4H PRN PRN Reason: PAIN LEVEL 6-10 Last Admin: 04/25/19 05:58 Dose: 650 mg Aluminum Sulfate/Calcium Acetate ([place] -) 1.9 gm TP DAILY [facility] Last Admin: 04/25/19 13:53 Dose: 1.9 gm Apixaban (Eliquis -) 5 mg PO BID [facility] Last Admin: 04/26/19 11:04 Dose: 5 mg Atorvastatin Calcium (Lipitor -) 10 mg PO HS [facility] Last Admin: 04/25/19 21:56 Dose: 10 mg Cyanocobalamin (Vitamin B12 -) 1,000 mcg PO DAILY [facility] Last Admin: 04/26/19 11:04 Dose: 1,000 mcg Diltiazem HCl (Cardizem -) 30 mg PO TID [facility] Last Admin: 04/26/19 05:49 Dose: 30 mg Diphenhydramine HCl (Benadryl -) 25 mg PO HS PRN PRN Reason: ALLERGIES Last Admin: 04/26/19 00:22 Dose: 25 mg Guaifenesin (Mucinex -) 600 mg PO BID [facility] Last Admin: 04/26/19 11:04 Dose: 600 mg Aztreonam 1 gm/ Dextrose 50 mls @ 100 mls/hr IVPB Q8H-IV [facility]; Protocol Last Admin: 04/26/19 11:05 Dose: 100 mls/hr Linezolid (Zyvox 600 Mg Premix Bag (Restricted To Id) -) 600 mg in 300 mls @ 300 mls/hr IVPB Q12H [facility]; Protocol Last Admin: 04/26/19 05:46 Dose: 300 mls/hr Lactobacillus Acidophilus (Bacid -) 1 tab PO DAILY [facility] Last Admin: 04/26/19 11:04 Dose: 1 tab Losartan Potassium (Cozaar -) 25 mg PO DAILY [facility] Last Admin: 04/26/19 11:04 Dose: 25 mg Metoprolol Succinate (Toprol Xl -) 50 mg PO BID [facility] Last Admin: 04/26/19 11:04 Dose: 50 mg Prednisone (Deltasone -) 40 mg PO DAILY [facility] Last Admin: 04/26/19 11:05 Dose: 40 mg Silver Sulfadiazine (Silvadene -) 1 applic TP DAILY [facility] Last Admin: 04/25/19 14:50 Dose: 1 applic - Objective Vital Signs: Vital Signs Temperature 36.5 C 04/26/19 06:00 Pulse Rate 79 04/26/19 06:00 Respiratory Rate 18 04/26/19 06:00 Blood Pressure 129/65 04/26/19 06:00 O2 Sat by Pulse Oximetry (%) 95 04/25/19 09:00 Constitutional: Yes: No Distress, Calm, Obese Cardiovascular: Yes: Regular Rate and Rhythm. No: Gallop, Murmur, Rub Respiratory: Yes: Regular, CTA Bilaterally. No: Rales, Rhonchi, Wheezes Gastrointestinal: Yes: Normal Bowel Sounds, Soft. No: Distention, Tenderness Extremities: Yes: Other (wrapped) Edema: Yes Edema: LLE: 2+, RLE: 2+ Labs: CBC, BMP 04/26/19 06:50 04/26/19 06:50 INR, PTT INR 1.19 (0.83-1.09) H 04/22/19 19:43 Problem List - Problems (1) Cellulitis Code(s): L03.90 - CELLULITIS, UNSPECIFIED Qualifiers: Site of cellulitis: extremity Site of cellulitis of extremity: lower extremity Laterality: right Qualified Code(s): L03.115 - Cellulitis of right lower limb (2) Venous stasis dermatitis Code(s): I87.2 - VENOUS INSUFFICIENCY (CHRONIC) (PERIPHERAL) Qualifiers: Laterality: right Qualified Code(s): I87.2 - Venous insufficiency (chronic ) (peripheral) (3) Atrial fibrillation Code(s): I48.91 - UNSPECIFIED ATRIAL FIBRILLATION Qualifiers: Atrial fibrillation type: chronic Qualified Code(s): I48.2 - Chronic atrial fibrillation (4) HLD (hyperlipidemia) Code(s): E78.5 - HYPERLIPIDEMIA, UNSPECIFIED (5) HTN (hypertension) Code(s): I10 - ESSENTIAL (PRIMARY) HYPERTENSION (6) Lymphedema of both lower extremities Code(s): I89.0 - LYMPHEDEMA, NOT ELSEWHERE CLASSIFIED (7) Obesity Code(s): E66.9 - OBESITY, UNSPECIFIED Qualifiers: Obesity type: with alveolar hypoventilation Obesity classification: adult class 3 (BMI >= 40) Serious obesity comorbidity presence: with serious comorbidity Body mass index: BMI 40.0-44.9 Qualified Code(s): E66.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 Assessment/Plan (1) Cellulitis Assessment/Plan: -appreciate wound care and ID assistance -wound care instructions per Dr Gonzalez -continue aztreonam and linezolid -wound cultures showing pseudomonas and MRSA -ID to evaluate how long needs to be on IV antibiotics Code(s): L03.90 - CELLULITIS, UNSPECIFIED Qualifiers: Site of cellulitis: extremity Site of cellulitis of extremity: lower extremity Laterality: right Qualified Code(s): L03.115 - Cellulitis of right lower limb (2) Venous stasis dermatitis Assessment/Plan: -wound care per Dr Gonzalez -continue prednisone Code(s): I87.2 - VENOUS INSUFFICIENCY (CHRONIC) (PERIPHERAL) Qualifiers: Laterality: right Qualified Code(s): I87.2 - Venous insufficiency (chronic ) (peripheral) (3) Atrial fibrillation Assessment/Plan: -rate controlled -on eliquis Code(s): I48.91 - UNSPECIFIED ATRIAL FIBRILLATION Qualifiers: Atrial fibrillation type: chronic Qualified Code(s): I48.2 - Chronic atrial fibrillation (4) HLD (hyperlipidemia) Assessment/Plan: -continue statin Code(s): E78.5 - HYPERLIPIDEMIA, UNSPECIFIED (5) HTN (hypertension) Assessment/Plan: -well controlled Code(s): I10 - ESSENTIAL (PRIMARY) HYPERTENSION (6) Lymphedema of both lower extremities Assessment/Plan: -chronic Code(s): I89.0 - LYMPHEDEMA, NOT ELSEWHERE CLASSIFIED (7) Obesity Assessment/Plan: -chronic Code(s): E66.9 - OBESITY, UNSPECIFIED Qualifiers: Obesity type: with alveolar hypoventilation Obesity classification: adult class 3 (BMI >= 40) Serious obesity comorbidity presence: with serious comorbidity Body mass index: BMI 40.0-44.9 Qualified Code(s): E66.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 Dispo -ID to comment on treatment, wound culture growing pseudomonas and MRSA
[2019-04-26] MEDS: CALCIUM ACETATE/AL SULFATE TOP 1.9 GM/PACKET PACKET TP SCH (18:56)
[2019-04-26] MEDS: SILVER SULFADIAZINE 1% TOP CREAM 50 GM JAR TP SCH (18:57)
[2019-04-26] MEDS: ACETAMINOPHEN 325 MG TABLET (FP) PO PRN (19:33)
[2019-04-26] MEDS: ATORVASTATIN CA 10 MG TABLET (FP) PO SCH (23:59)
[2019-04-27] MEDS: guaiFENesin 600 MG TABLET.ER (FP) PO SCH ×3 (00:06→21:37)
[2019-04-27] MEDS ORDERED: DEXTROSE 5%-WATER - 50 ML IVPB ONE ×3 (02:28→17:31)
[2019-04-27] MEDS ORDERED: AZTREONAM 1 GM VIAL (RESTRICTED TO ID) ONE ×3 (02:28→17:31)
[2019-04-27] MEDS: AZTREONAM 1 GM in DEXTROSE 5%-WATER - 50 ML IVPB SCH ×3 (02:31→17:34)
[2019-04-27] MEDS: LINEZOLID 600 MG PREMIX BAG 600 MG/300 ML BAG IVPB SCH ×2 (06:07→18:45)
[2019-04-27] MEDS: dilTIAZem HCL 30 MG TABLET (FP) PO SCH ×4 (06:07→21:37)
[2019-04-27] MEDS: ACETAMINOPHEN 325 MG TABLET (FP) PO PRN ×3 (06:09→21:35)
[2019-04-27 07:27] LABS: BASO % 0.2 % (0-2.0); EOS % 2.3 % (0-4.5); HEMATOCRIT 47.4 % (32.4-45.2); LYMPH % 32.8 % (8-40); MCH 26.5 pg (25.7-33.7); MCHC 31.6 g/dl (32.0-36.0); MEAN PLT VOLUME 7.9 fl (7.5-11.1); MONO % 8.6 % (3.8-10.2); NEUT % 56.1 % (42.8-82.8); PLATELET COUNT 216 K/MM3 (134-434); RBC 5.65 M/mm3 (3.60-5.2); RDW 14.5 % (11.6-15.6); WHITE BLOOD COUNT 7.4 K/mm3 (4.0-10.0)
[2019-04-27 07:42] LABS: CALCIUM 8.7 mg/dL (8.5-10.1); CREATININE 0.5 mg/dL (0.55-1.3); MAGNESIUM 2.1 mg/dL (1.8-2.4); PHOSPHOROUS 3.7 mg/dL (2.5-4.9); POTASSIUM 4.2 mmol/L (3.5-5.1)
[2019-04-27] MEDS ORDERED: PT OWN MED DRAWER 7, Y5N ONE ×3 (09:52→20:21)
[2019-04-27] MEDS: LACTOBACILLUS ACIDOPHILUS 1 TABLET PO SCH (10:17)
[2019-04-27] MEDS: predniSONE 20 MG TABLET (UD) PO SCH (10:17)
[2019-04-27] MEDS: APIXABAN 5 MG TABLET PO SCH ×3 (10:17→21:37)
[2019-04-27] MEDS: CYANOCOBALAMIN 1,000 MCG TABLET (FP) PO SCH (10:17)
--- NOTE | 2019-04-27 11:18 | PN ---
Physical Exam: SUBJECTIVE: Patient seen and examined resting in bed nad, afebrile hemodynamically stable. no acute events. feels well denies sob, f/c, le pain. OBJECTIVE: Vital Signs Period Temp Pulse Resp BP Sys/William Pulse Ox Last 24 Hr 97.9 F-98.1 F 76-116 18-18 109-143/55-77 96 GENERAL: The patient is awake, alert, and fully oriented, in no acute distress. HEAD: Normal with no signs of trauma. EYES: PERRL, extraocular movements intact, sclera anicteric, conjunctiva clear. No ptosis. ENT: moist mucous membranes. NECK: supple. LUNGS: Breath sounds equal, clear to auscultation bilaterally HEART: irregularly irregular s1s2 ABDOMEN: Soft, nontender, nondistended, normoactive bowel sounds EXTREMITIES: RLE chronic stasis changes trace edema, no blanching erythema or purulent discharge NEUROLOGICAL: Cranial nerves II through XII grossly intact. Normal speech, gait not observed. PSYCH: Normal mood, normal affect. SKIN: Warm, dry Laboratory Results - last 24 hr 04/27/19 04/27/19 06:43 06:43 WBC 7.4 RBC 5.65 H Hgb 15.0 Hct 47.4 H MCV 84.0 MCH 26.5 MCHC 31.6 L RDW 14.5 Plt Count 216 MPV 7.9 Absolute Neuts (auto) 4.2 Neutrophils % 56.1 Lymphocytes % 32.8 Monocytes % 8.6 Eosinophils % 2.3 Basophils % 0.2 Nucleated RBC % 0 Sodium 141 Potassium 4.2 Chloride 104 Carbon Dioxide 32 Anion Gap 5 L BUN 15 Creatinine 0.5 L Est GFR (CKD-EPI)AfAm 112.07 Est GFR (CKD-EPI)NonAf 96.69 Random Glucose 81 Calcium 8.7 Phosphorus 3.7 Magnesium 2.1 Active Medications Generic Name Dose Route Start Last Admin Trade Name Freq PRN Reason Stop Dose Admin Acetaminophen 650 mg 04/23/19 02:12 04/27/19 10:34 Tylenol - PO 650 mg Q4H PRN Administration PAIN LEVEL 6-10 Aluminum Sulfate/Calcium Acetate 1.9 gm 04/23/19 10:00 04/26/19 18:56 [place] - TP 1.9 gm DAILY [facility] Administration Apixaban 5 mg 04/23/19 10:00 04/27/19 10:17 Eliquis - PO 5 mg BID [facility] Administration Atorvastatin Calcium 10 mg 04/22/19 22:00 04/26/19 23:59 Lipitor - PO 10 mg HS [facility] Administration Cyanocobalamin 1,000 mcg 04/23/19 10:00 04/27/19 10:17 Vitamin B12 - PO 1,000 mcg DAILY [facility] Administration Diltiazem HCl 30 mg 04/22/19 22:00 04/27/19 06:07 Cardizem - PO 30 mg TID [facility] Administration Diphenhydramine HCl 25 mg 04/22/19 21:31 04/26/19 00:22 Benadryl - PO 25 mg HS PRN Administration ALLERGIES Guaifenesin 600 mg 04/25/19 12:00 04/27/19 10:17 Mucinex - PO 600 mg BID [facility] Administration Aztreonam 1 gm/ Dextrose 50 mls @ 100 mls/hr 04/23/19 18:00 04/27/19 09:11 IVPB 100 mls/hr Q8H-IV [facility] Administration Protocol Linezolid 600 mg in 300 mls @ 300 mls/hr 04/23/19 18:00 04/27/19 06:07 Zyvox 600 Mg Premix Bag (Restricted To Id) - IVPB 300 mls/hr Q12H [facility] Administration Protocol Lactobacillus Acidophilus 1 tab 04/24/19 10:00 04/27/19 10:17 Bacid - PO 1 tab DAILY [facility] Administration Losartan Potassium 25 mg 04/23/19 10:00 04/26/19 11:04 Cozaar - PO 25 mg DAILY [facility] Administration Metoprolol Succinate 50 mg 04/22/19 22:00 04/27/19 00:00 Toprol Xl - PO 50 mg BID [facility] Administration Prednisone 40 mg 04/22/19 21:45 04/27/19 10:17 Deltasone - PO 40 mg DAILY [facility] Administration Silver Sulfadiazine 1 applic 04/23/19 11:30 04/26/19 18:57 Silvadene - TP 1 applic DAILY [facility] Administration ASSESSMENT/PLAN: Patient is a 74 yo F with a PMH of AF on eliquis, OA, RA, Sjorgens, HTN, COPD ( 4L O2), venous insufficiency, dvt, VRE, Pseudomonas, admitted from wound care for worsening venous stasis dermatitis and concern for Cellulitis of the RLE. Chronic stasis dermatitis and lymphedema of both legs with cellulitis of RLE AF HTN COPD on 4L O2 OA Sjogens -wound cultures growing pseudomonas and MRSA, covered by aztreonam and linezolid day 5 -daily wound care -rate controlled -continue eliquis, cardizem 30 tid -toprol xl 50 bid, losartan 25 d -lipitor 10. -continue prednisone 40 d -ID and wound care consults appreciated -plan to dc home tomorrow. patient had 24 hr aid and vns several days a week needs to be reordered Problem List - Problems (1) Cellulitis Code(s): L03.90 - CELLULITIS, UNSPECIFIED Qualifiers: Site of cellulitis: extremity Site of cellulitis of extremity: lower extremity Laterality: right Qualified Code(s): L03.115 - Cellulitis of right lower limb (2) Venous stasis dermatitis Code(s): I87.2 - VENOUS INSUFFICIENCY (CHRONIC) (PERIPHERAL) Qualifiers: Laterality: right Qualified Code(s): I87.2 - Venous insufficiency (chronic ) (peripheral) (3) Allergy to multiple antibiotics Code(s): Z88.1 - ALLERGY STATUS TO OTHER ANTIBIOTIC AGENTS STATUS (4) Atrial fibrillation Code(s): I48.91 - UNSPECIFIED ATRIAL FIBRILLATION Qualifiers: Atrial fibrillation type: chronic Qualified Code(s): I48.2 - Chronic atrial fibrillation (5) Dermatitis Code(s): L30.9 - DERMATITIS, UNSPECIFIED Visit type - Emergency Visit Emergency Visit: Yes ED Registration Date: 04/22/19 Care time: The patient presented to the Emergency Department on the above date and was hospitalized for further evaluation of their emergent condition. - New Patient This patient is new to me today: Yes Date on this admission: 04/27/19 - Critical Care Critical Care patient: No - Discharge Referral Referred to [facility] Med P.C.: No
[2019-04-27] MEDS: LOSARTAN POTASSIUM 25 MG TABLET PO SCH (11:38)
[2019-04-27] MEDS: CALCIUM ACETATE/AL SULFATE TOP 1.9 GM/PACKET PACKET TP SCH (16:07)
--- NOTE | 2019-04-27 16:08 | PN ---
Progress Note, Physician History of Present Illness: NO C/O LEG PAIN NO C/O F/C TOLERATING ANTIBIOTICS - Current Medication List Current Medications: Active Medications Acetaminophen (Tylenol -) 650 mg PO Q4H PRN PRN Reason: PAIN LEVEL 6-10 Last Admin: 04/27/19 10:34 Dose: 650 mg Aluminum Sulfate/Calcium Acetate ([place] -) 1.9 gm TP DAILY [facility] Last Admin: 04/26/19 18:56 Dose: 1.9 gm Apixaban (Eliquis -) 5 mg PO BID [facility] Last Admin: 04/27/19 10:17 Dose: 5 mg Atorvastatin Calcium (Lipitor -) 10 mg PO HS [facility] Last Admin: 04/26/19 23:59 Dose: 10 mg Cyanocobalamin (Vitamin B12 -) 1,000 mcg PO DAILY [facility] Last Admin: 04/27/19 10:17 Dose: 1,000 mcg Diltiazem HCl (Cardizem -) 30 mg PO TID [facility] Last Admin: 04/27/19 15:22 Dose: 30 mg Diphenhydramine HCl (Benadryl -) 25 mg PO HS PRN PRN Reason: ALLERGIES Last Admin: 04/26/19 00:22 Dose: 25 mg Guaifenesin (Mucinex -) 600 mg PO BID [facility] Last Admin: 04/27/19 10:17 Dose: 600 mg Aztreonam 1 gm/ Dextrose 50 mls @ 100 mls/hr IVPB Q8H-IV [facility]; Protocol Last Admin: 04/27/19 09:11 Dose: 100 mls/hr Linezolid (Zyvox 600 Mg Premix Bag (Restricted To Id) -) 600 mg in 300 mls @ 300 mls/hr IVPB Q12H [facility]; Protocol Last Admin: 04/27/19 06:07 Dose: 300 mls/hr Lactobacillus Acidophilus (Bacid -) 1 tab PO DAILY [facility] Last Admin: 04/27/19 10:17 Dose: 1 tab Losartan Potassium (Cozaar -) 25 mg PO DAILY [facility] Last Admin: 04/27/19 11:38 Dose: Not Given Metoprolol Succinate (Toprol Xl -) 50 mg PO BID [facility] Last Admin: 04/27/19 11:38 Dose: Not Given Prednisone (Deltasone -) 40 mg PO DAILY [facility] Last Admin: 04/27/19 10:17 Dose: 40 mg Silver Sulfadiazine (Silvadene -) 1 applic TP DAILY [facility] Last Admin: 04/26/19 18:57 Dose: 1 applic - Objective Vital Signs: Vital Signs Temperature 98.2 F 04/27/19 16:00 Pulse Rate 95 H 04/27/19 16:00 Respiratory Rate 18 04/27/19 16:00 Blood Pressure 125/71 04/27/19 16:00 O2 Sat by Pulse Oximetry (%) 96 04/27/19 09:00 Constitutional: Yes: No Distress Cardiovascular: Yes: Regular Rate and Rhythm, S1, S2 Respiratory: Yes: CTA Bilaterally Gastrointestinal: Yes: Normal Bowel Sounds, Soft. No: Tenderness Extremities: Yes: Other (EDEMA/ ERYTHEMA LE MUCH IMPROVED) Labs: CBC, BMP 04/27/19 06:43 04/27/19 06:43 INR, PTT INR 1.19 (0.83-1.09) H 04/22/19 19:43 Assessment/Plan RECURRENT LE CELLULITIS IMPROVED ON ANTIBIOTICS/ STEROIDS MULTIPLE ANTIBIOTIC ALLERGIES CONTINUE LINEZOLID/ AZTREONAM ADDITIONAL 24HR IF STABLE D/C HOME TOMORROW OFF ANTIBIOTICS
--- NOTE | 2019-04-27 17:02 | PN ---
Teaching Attending Note Name of Resident: Ada Gutierrez ATTENDING PHYSICIAN STATEMENT I saw and evaluated the patient. I reviewed the resident's note and discussed the case with the resident. I agree with the resident's findings and plan as documented. SUBJECTIVE: Ms Torres is without complaint. Denies cp, sob, n/v. OBJECTIVE: Last Vital Signs Temp Pulse Resp BP Pulse Ox 36.8 C 95 H 18 125/71 96 04/27/19 16:00 04/27/19 16:00 04/27/19 16:00 04/27/19 16:00 04/27/19 09:00 Gen: nad, obese Pulm: ctab w/o w/r/r CV: irreg irreg w/o m/r/g Abd: +bs, s/nt/nd Ext: edema, chronic venous stasis changes CBC, BMP 04/27/19 06:43 04/27/19 06:43 ASSESSMENT AND PLAN: (1) Cellulitis Assessment/Plan: -appreciate wound care and ID assistance -case d/w Dr Lee -finish course of IV antibiotics here -can discharge with no further antibiotics tomorrow after debridement Code(s): L03.90 - CELLULITIS, UNSPECIFIED Qualifiers: Site of cellulitis: extremity Site of cellulitis of extremity: lower extremity Laterality: right Qualified Code(s): L03.115 - Cellulitis of right lower limb (2) Venous stasis dermatitis Assessment/Plan: -wound care per Dr Gonzalez -plan for debridement tomorrow -continue prednisone Code(s): I87.2 - VENOUS INSUFFICIENCY (CHRONIC) (PERIPHERAL) Qualifiers: Laterality: right Qualified Code(s): I87.2 - Venous insufficiency (chronic ) (peripheral) (3) Atrial fibrillation Assessment/Plan: -rate controlled -on eliquis Code(s): I48.91 - UNSPECIFIED ATRIAL FIBRILLATION Qualifiers: Atrial fibrillation type: chronic Qualified Code(s): I48.2 - Chronic atrial fibrillation (4) HLD (hyperlipidemia) Assessment/Plan: -continue statin Code(s): E78.5 - HYPERLIPIDEMIA, UNSPECIFIED (5) HTN (hypertension) Assessment/Plan: -well controlled Code(s): I10 - ESSENTIAL (PRIMARY) HYPERTENSION (6) Lymphedema of both lower extremities Assessment/Plan: -chronic Code(s): I89.0 - LYMPHEDEMA, NOT ELSEWHERE CLASSIFIED (7) Obesity Assessment/Plan: -chronic Code(s): E66.9 - OBESITY, UNSPECIFIED Qualifiers: Obesity type: with alveolar hypoventilation Obesity classification: adult class 3 (BMI >= 40) Serious obesity comorbidity presence: with serious comorbidity Body mass index: BMI 40.0-44.9 Qualified Code(s): E66.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 Dispo -plan for discharge tomorrow after debridement Problem List - Problems (1) Cellulitis Code(s): L03.90 - CELLULITIS, UNSPECIFIED Qualifiers: Site of cellulitis: extremity Site of cellulitis of extremity: lower extremity Laterality: right Qualified Code(s): L03.115 - Cellulitis of right lower limb (2) Venous stasis dermatitis Code(s): I87.2 - VENOUS INSUFFICIENCY (CHRONIC) (PERIPHERAL) Qualifiers: Laterality: right Qualified Code(s): I87.2 - Venous insufficiency (chronic ) (peripheral) (3) Atrial fibrillation Code(s): I48.91 - UNSPECIFIED ATRIAL FIBRILLATION Qualifiers: Atrial fibrillation type: chronic Qualified Code(s): I48.2 - Chronic atrial fibrillation (4) HLD (hyperlipidemia) Code(s): E78.5 - HYPERLIPIDEMIA, UNSPECIFIED (5) HTN (hypertension) Code(s): I10 - ESSENTIAL (PRIMARY) HYPERTENSION (6) Lymphedema of both lower extremities Code(s): I89.0 - LYMPHEDEMA, NOT ELSEWHERE CLASSIFIED (7) Obesity Code(s): E66.9 - OBESITY, UNSPECIFIED Qualifiers: Obesity type: with alveolar hypoventilation Obesity classification: adult class 3 (BMI >= 40) Serious obesity comorbidity presence: with serious comorbidity Body mass index: BMI 40.0-44.9 Qualified Code(s): E66.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
[2019-04-27] MEDS: SILVER SULFADIAZINE 1% TOP CREAM 50 GM JAR TP SCH (17:19)
[2019-04-27] MEDS: ATORVASTATIN CA 10 MG TABLET (FP) PO SCH (21:37)
[2019-04-28] MEDS ORDERED: AZTREONAM 1 GM VIAL (RESTRICTED TO ID) ONE ×2 (02:34→09:37)
[2019-04-28] MEDS ORDERED: DEXTROSE 5%-WATER - 50 ML IVPB ONE ×2 (02:35→09:37)
[2019-04-28] MEDS: AZTREONAM 1 GM in DEXTROSE 5%-WATER - 50 ML IVPB SCH ×2 (02:57→09:41)
[2019-04-28] MEDS: dilTIAZem HCL 30 MG TABLET (FP) PO SCH ×2 (06:22→13:44)
[2019-04-28] MEDS: ACETAMINOPHEN 325 MG TABLET (FP) PO PRN (06:23)
[2019-04-28] MEDS: LINEZOLID 600 MG PREMIX BAG 600 MG/300 ML BAG IVPB SCH (06:24)
--- NOTE | 2019-04-28 07:55 | PN ---
Physical Exam: SUBJECTIVE: Patient seen and examined resting in bed nad, afebrile hemodynamically stable. no acute events. feels well denies sob, f/c, le pain. OBJECTIVE: Vital Signs Period Temp Pulse Resp BP Sys/William Pulse Ox Last 24 Hr 97.2 F-98.2 F 76-95 18-18 109-134/52-73 96-96 GGENERAL: The patient is awake, alert, and fully oriented, in no acute distress. HEAD: Normal with no signs of trauma. EYES: PERRL, extraocular movements intact, sclera anicteric, conjunctiva clear. No ptosis. ENT: moist mucous membranes. NECK: supple. LUNGS: Breath sounds equal, clear to auscultation bilaterally HEART: irregularly irregular s1s2 ABDOMEN: Soft, nontender, nondistended, normoactive bowel sounds EXTREMITIES: RLE chronic stasis changes trace edema, no blanching erythema or purulent discharge NEUROLOGICAL: Cranial nerves II through XII grossly intact. Normal speech, gait not observed. PSYCH: Normal mood, normal affect. SKIN: Warm, dry Laboratory Results - last 24 hr 04/27/19 06:43 WBC 7.4 RBC 5.65 H Hgb 15.0 Hct 47.4 H MCV 84.0 MCH 26.5 MCHC 31.6 L RDW 14.5 Plt Count 216 MPV 7.9 Absolute Neuts (auto) 4.2 Neutrophils % 56.1 Lymphocytes % 32.8 Monocytes % 8.6 Eosinophils % 2.3 Basophils % 0.2 Nucleated RBC % 0 Active Medications Generic Name Dose Route Start Last Admin Trade Name Freq PRN Reason Stop Dose Admin Acetaminophen 650 mg 04/23/19 02:12 04/28/19 06:23 Tylenol - PO 650 mg Q4H PRN Administration PAIN LEVEL 6-10 Aluminum Sulfate/Calcium Acetate 1.9 gm 04/23/19 10:00 04/27/19 16:07 [place] - TP 1.9 gm DAILY [facility] Administration Apixaban 5 mg 04/23/19 10:00 04/27/19 21:37 Eliquis - PO 5 mg BID [facility] Administration Atorvastatin Calcium 10 mg 04/22/19 22:00 04/27/19 21:37 Lipitor - PO 10 mg HS [facility] Administration Cyanocobalamin 1,000 mcg 04/23/19 10:00 04/27/19 10:17 Vitamin B12 - PO 1,000 mcg DAILY [facility] Administration Diltiazem HCl 30 mg 04/22/19 22:00 04/28/19 06:22 Cardizem - PO 30 mg TID [facility] Administration Diphenhydramine HCl 25 mg 04/22/19 21:31 04/26/19 00:22 Benadryl - PO 25 mg HS PRN Administration ALLERGIES Guaifenesin 600 mg 04/25/19 12:00 04/27/19 21:37 Mucinex - PO 600 mg BID [facility] Administration Aztreonam 1 gm/ Dextrose 50 mls @ 100 mls/hr 04/23/19 18:00 04/28/19 02:57 IVPB 100 mls/hr Q8H-IV [facility] Administration Protocol Linezolid 600 mg in 300 mls @ 300 mls/hr 04/23/19 18:00 04/28/19 06:24 Zyvox 600 Mg Premix Bag (Restricted To Id) - IVPB 300 mls/hr Q12H [facility] Administration Protocol Lactobacillus Acidophilus 1 tab 04/24/19 10:00 04/27/19 10:17 Bacid - PO 1 tab DAILY [facility] Administration Losartan Potassium 25 mg 04/23/19 10:00 04/27/19 11:38 Cozaar - PO Not Given DAILY [facility] Metoprolol Succinate 50 mg 04/22/19 22:00 04/27/19 21:37 Toprol Xl - PO 50 mg BID [facility] Administration Prednisone 40 mg 04/22/19 21:45 04/27/19 10:17 Deltasone - PO 40 mg DAILY [facility] Administration Silver Sulfadiazine 1 applic 04/23/19 11:30 04/27/19 17:19 Silvadene - TP 1 applic DAILY [facility] Administration ASSESSMENT/PLAN: Patient is a 74 yo F with a PMH of AF on eliquis, OA, RA, Sjorgens, HTN, COPD ( 4L O2), venous insufficiency, dvt, VRE, Pseudomonas, admitted from wound care for worsening venous stasis dermatitis and concern for Cellulitis of the RLE. Chronic stasis dermatitis and lymphedema of both legs with cellulitis of RLE AF HTN COPD on 4L O2 OA Sjogens -wound cultures growing pseudomonas and MRSA, covered by aztreonam and linezolid day 5 -daily wound care -rate controlled -continue eliquis, cardizem 30 tid -toprol xl 50 bid, losartan 25 d -lipitor 10. -continue prednisone 40 d -ID and wound care consults appreciated -plan to dc home tomorrow. patient had 24 hr aid and vns several days a week needs to be reordered Problem List - Problems (1) Cellulitis Code(s): L03.90 - CELLULITIS, UNSPECIFIED Qualifiers: Site of cellulitis: extremity Site of cellulitis of extremity: lower extremity Laterality: right Qualified Code(s): L03.115 - Cellulitis of right lower limb (2) Venous stasis dermatitis Code(s): I87.2 - VENOUS INSUFFICIENCY (CHRONIC) (PERIPHERAL) Qualifiers: Laterality: right Qualified Code(s): I87.2 - Venous insufficiency (chronic ) (peripheral) (3) Allergy to multiple antibiotics Code(s): Z88.1 - ALLERGY STATUS TO OTHER ANTIBIOTIC AGENTS STATUS (4) Atrial fibrillation Code(s): I48.91 - UNSPECIFIED ATRIAL FIBRILLATION Qualifiers: Atrial fibrillation type: chronic Qualified Code(s): I48.2 - Chronic atrial fibrillation (5) Dermatitis Code(s): L30.9 - DERMATITIS, UNSPECIFIED
[2019-04-28 08:17] LABS: HEMATOCRIT 45.8 % (32.4-45.2); HEMOGLOBIN 14.5 GM/dL (10.7-15.3); LYMPH % 30.3 % (8-40); MCH 26.3 pg (25.7-33.7); MCHC 31.6 g/dl (32.0-36.0); MEAN CELL VOLUME 83.4 fl (80-96); MEAN PLT VOLUME 7.7 fl (7.5-11.1); NEUT % 59.3 % (42.8-82.8); PLATELET COUNT 205 K/MM3 (134-434); RBC 5.49 M/mm3 (3.60-5.2); RDW 14.5 % (11.6-15.6); WHITE BLOOD COUNT 6.2 K/mm3 (4.0-10.0)
[2019-04-28 08:18] LABS: BASO % 0.2 % (0-2.0); EOS % 2.5 % (0-4.5); MONO % 7.7 % (3.8-10.2)
--- NOTE | 2019-04-28 08:52 | PN ---
Progress Note (short form) - Note Progress Note: Afebrile Right leg wounds healed, slight erythema at upper calf only. Dry eschar over lower leg. Imp: resolving cellulitis and improved dermatitis on PO Prednisone. Rec: Taper steroids D/C soaks and Silvadene. Daily moisturizer and compression with PITER or stocking. OK For discharge. ID to decide on home antibiotic regimen.
[2019-04-28] MEDS: LOSARTAN POTASSIUM 25 MG TABLET PO SCH (09:50)
--- NOTE | 2019-04-28 09:50 | DS ---
Physical Exam: SUBJECTIVE: Patient seen and examined resting in bed nad, afebrile hemodynamically stable. no acute events. feels well denies sob, f/c, le pain. OBJECTIVE: Vital Signs Period Temp Pulse Resp BP Sys/William Pulse Ox Last 24 Hr 97.2 F-98.2 F 76-95 18-18 109-134/52-73 96 PHYSICAL EXAM GENERAL: The patient is awake, alert, and fully oriented, in no acute distress. HEAD: Normal with no signs of trauma. EYES: PERRL, extraocular movements intact, sclera anicteric, conjunctiva clear. No ptosis. ENT: moist mucous membranes. NECK: supple. LUNGS: Breath sounds equal, clear to auscultation bilaterally HEART: irregularly irregular s1s2 ABDOMEN: Soft, nontender, nondistended, normoactive bowel sounds EXTREMITIES: RLE chronic stasis changes trace edema, no blanching erythema or purulent discharge NEUROLOGICAL: Cranial nerves II through XII grossly intact. Normal speech, gait not observed. PSYCH: Normal mood, normal affect. SKIN: Warm, dry LABS Laboratory Results - last 24 hr 04/28/19 07:10 WBC 6.2 RBC 5.49 H Hgb 14.5 Hct 45.8 H MCV 83.4 MCH 26.3 MCHC 31.6 L RDW 14.5 Plt Count 205 MPV 7.7 Absolute Neuts (auto) 3.7 Neutrophils % 59.3 Lymphocytes % 30.3 Monocytes % 7.7 Eosinophils % 2.5 Basophils % 0.2 Nucleated RBC % 0 HOSPITAL COURSE: Date of Admission:04/22/19 Patient is a 74 yo F with a PMH of AF on eliquis, OA, RA, Sjorgens, HTN, COPD ( 4L O2), venous insufficiency, dvt, VRE, Pseudomonas, admitted from wound care for worsening venous stasis dermatitis and concern for Cellulitis of the RLE. Patient completed a 5 day course of IV aztreonam and linezolid, was treated with prednisone and sent home on a prednisone taper. SHe also underwent debridement of her wound on the day of dc. She was instructed to f/u with Dr Gonzalez. Date of Discharge: 04/28/19 Minutes to complete discharge: 35 Discharge Summary Reason For Visit: CELLULITIS/VENOUS STASIS DERMATITIS Current Active Problems Cellulitis (Acute) Venous stasis dermatitis (Acute) Condition: Stable - Instructions Diet, Activity, Other Instructions: You were admitted for worsening venous stasis dermatitis and cellulitis of the right leg. you have completed a course of IV antibiotics. You do not need any oral antibiotics *Please continue taking Prednisone at home as instructed below: Starting tomorrow 30 mg (three 10 mg pills) daily for 2 days Then 20 mg (two 10 mg pills) daily for 3 days Then 10 mg daily for 3 days *Apply Silvadene ointment to wound with each dressing change *Continue all home medications as usual. Follow up with Dr Alas within 1week Follow up wit family doctor in 1 week Return to ED if severe symptoms recur Referrals: Tejas Gonzalez MD [Staff Physician] - Disposition: HOME - Home Medications Comprehensive Discharge Medication List: Ambulatory Orders Ascorbate Calcium [Vitamin C] 1,000 mg PO DAILY 08/30/15 Cholecalciferol (Vitamin D3) [Vitamin D3] 1,000 unit PO BID 08/30/15 Cyanocobalamin [Vitamin B12 -] 1,000 mcg PO DAILY 08/30/15 Oxycodone/APAP [Percocet - Must Order Individual Components] 1 each NR QID PRN 08/30/15 Simvastatin 10 mg PO HS 08/30/15 Guaifenesin [Mucinex] 600 mg PO DAILY 06/20/17 Metoprolol Succinate [Toprol XL -] 50 mg PO BID #60 tab.sr 06/25/17 Docusate Sodium [Colace -] 1 cap PO DAILY PRN 07/12/17 Fish Oil/Borage/Flax/Om3,6,9 1 [[place] 3-6-9 1,200 mg Softgel] 1 cap PO DAILY Losartan Potassium [Cozaar -] 25 mg PO DAILY #30 tablet 08/06/17 Diltiazem [Cardizem -] 30 mg PO TID 08/29/17 Furosemide [Lasix] 40 mg PO ASDIR PRN 08/29/17 Potassium Chloride [Klor-Con 10] 10 meq PO DAILY PRN 08/29/17 Apixaban [Eliquis] 5 mg PO BID 04/22/19 Prednisone 10 mg PO DAILY #15 tablet 04/28/19 Silver Sulfadiazine 1% Top Cr [Silvadene -] 1 applic TP DAILY #1 jar 04/28/19 Problem List - Problems (1) Cellulitis Code(s): L03.90 - CELLULITIS, UNSPECIFIED Qualifiers: Site of cellulitis: extremity Site of cellulitis of extremity: lower extremity Laterality: right Qualified Code(s): L03.115 - Cellulitis of right lower limb (2) Venous stasis dermatitis Code(s): I87.2 - VENOUS INSUFFICIENCY (CHRONIC) (PERIPHERAL) Qualifiers: Laterality: right Qualified Code(s): I87.2 - Venous insufficiency (chronic ) (peripheral) (3) Allergy to multiple antibiotics Code(s): Z88.1 - ALLERGY STATUS TO OTHER ANTIBIOTIC AGENTS STATUS (4) Atrial fibrillation Code(s): I48.91 - UNSPECIFIED ATRIAL FIBRILLATION Qualifiers: Atrial fibrillation type: chronic Qualified Code(s): I48.2 - Chronic atrial fibrillation (5) Dermatitis Code(s): L30.9 - DERMATITIS, UNSPECIFIED This patient is new to me today: Yes Date on this admission: 04/28/19 Emergency Visit: No Critical Care patient: No - Discharge Referral Referred to [facility] Med P.C.: No
[2019-04-28] MEDS: guaiFENesin 600 MG TABLET.ER (FP) PO SCH (09:51)
[2019-04-28] MEDS: LACTOBACILLUS ACIDOPHILUS 1 TABLET PO SCH (09:51)
[2019-04-28] MEDS: CYANOCOBALAMIN 1,000 MCG TABLET (FP) PO SCH (09:51)
[2019-04-28] MEDS: APIXABAN 5 MG TABLET PO SCH (09:52)
[2019-04-28] MEDS: CALCIUM ACETATE/AL SULFATE TOP 1.9 GM/PACKET PACKET TP SCH (09:59)
[2019-04-28] MEDS ORDERED: predniSONE 20 MG TABLET (UD) PO SCH (10:00)
[2019-04-28 10:02] VITALS: BP 110/61; TEMP 98
[2019-04-28 13:47] VITALS: PULSE 82
== END 2019-04-28 14:37 | disposition home health service (06) | DRG 603 ==
LOC: JER 16:21 → JERBED 20:33 → J5S 04-23 01:04
PROVIDERS: ADMIT Internal Medicine; ATTEND Internal Medicine
DX: L03.115 Cellulitis of right lower limb (principal); Z68.41 Body mass index [BMI] 40.0-44.9, adult; J96.11 Chronic respiratory failure with hypoxia; I87.2 Venous insufficiency (chronic) (peripheral); I48.2 Chronic atrial fibrillation; E66.9 Obesity, unspecified; I89.0 Lymphedema, not elsewhere classified; M35.00 Sjogren syndrome, unspecified; E78.5 Hyperlipidemia, unspecified; J44.9 Chronic obstructive pulmonary disease, unspecified; M19.90 Unspecified osteoarthritis, unspecified site; I11.0 Hypertensive heart disease with heart failure; I50.9 Heart failure, unspecified; M48.00 Spinal stenosis, site unspecified
CPT/HCPCS: 36415; 71045-TC-FY; 80048; 80053; 82040; 83735; 84100; 85025; 85027; 85610; 85730; 87040; 87070; 87186; 87205; 93005; 93010; 99283-25; G0463-25

== ENCOUNTER 2019-05-14 13:16 | Inpatient (IN) | payer OTHER, MEDICARE | END 2019-05-19 14:01 | disposition home health service (06) | LOC: JER 13:16 → JERBED 16:55 → J8W 20:23 ==

== ENCOUNTER 2019-06-08 13:34 | Inpatient (IN) | payer OTHER, MEDICARE ==
[2019-06-08 14:02] VITALS: BMI 40.4
--- NOTE | 2019-06-08 14:48 | PDOC ---
History of Present Illness - General Chief Complaint: Pain, Acute Stated Complaint: LEFT LEG PAIN Time Seen by Provider: 06/08/19 14:11 History Source: Patient Exam Limitations: No Limitations - History of Present Illness Initial Comments: 06/08/19 14:40 74YOF with h/o A-fib, HTN, DVT, morbid obesity, COPD, LEON, RA, MRSA, chronic recurrent distal RLE cellulitis who p/w abrupt extension of her RLE warmth, pain , and redness proximally up to her right hip/buttock/thigh. She was admitted here at [facility] for RLE cellulitis in mid-April, discharged 05/14/19. She notes being on a prednisone taper since that time, started high dose in the hospital, last dose was 10 mg this morning. She notes that her past cellulitis has always required prednisone. She additionally has had fever, chills, malaise, lightheadedness. Past History - Past Medical History Allergies/Adverse Reactions: Allergies Allergy/AdvReac Type Severity Reaction Status Date / Time Penicillins Allergy Severe Swelling Verified 06/08/19 14:02 clindamycin Allergy Mild Rash Verified 06/08/19 14:02 doxycycline Allergy Swelling Verified 06/08/19 14:02 levofloxacin [From Levaquin] Allergy Rash Verified 06/08/19 14:02 vancomycin AdvReac Mild Itching Verified 06/08/19 14:02 adhesive tape AdvReac "RIPS MY Verified 06/08/19 14:02 SKIN" Home Medications: Ambulatory Orders Ascorbate Calcium [Vitamin C] 1,000 mg PO DAILY 08/30/15 Cholecalciferol (Vitamin D3) [Vitamin D3] 1,000 unit PO BID 08/30/15 Cyanocobalamin [Vitamin B12 -] 1,000 mcg PO DAILY 08/30/15 Oxycodone/APAP [Percocet - Must Order Individual Components] 1 each NR QID PRN 08/30/15 Simvastatin 10 mg PO HS 08/30/15 Guaifenesin [Mucinex] 600 mg PO DAILY 06/20/17 Metoprolol Succinate [Toprol XL -] 50 mg PO BID #60 tab.sr 06/25/17 Fish Oil/Borage/Flax/Om3,6,9 1 [[place] 3-6-9 1,200 mg Softgel] 1 cap PO DAILY Diltiazem [Cardizem -] 360 mg PO DAILY 08/29/17 Furosemide [Lasix] 40 mg PO DAILY PRN 08/29/17 Apixaban [Eliquis] 5 mg PO BID 04/22/19 Enalapril Maleate [Vasotec -] 2.5 mg PO DAILY 05/14/19 Gabapentin [Neurontin] 400 mg PO TID 05/14/19 Hydroxychloroquine Sulfate 200 mg PO DAILY 05/14/19 Ranitidine HCl [Zantac] 150 mg PO BID 05/14/19 Linezolid [Zyvox] 600 mg PO BID #14 tablet 05/19/19 predniSONE [Deltasone -] 10 mg PO DAILY #75 tablet 05/19/19 Anemia: No Asthma: No Cancer: No Cardiac Disorders: Yes (ATRIAL FIBRILLATION) CVA: No COPD: Yes CHF: Yes Dementia: No Diabetes: No GI Disorders: No Disorders: No HTN: Yes Hypercholesterolemia: Yes Liver Disease: No Seizures: No Thyroid Disease: Yes (LEFT THYROID LUMP) - Surgical History Abdominal Surgery: No Appendectomy: No Cardiac Surgery: No Cholecystectomy: No Lung Surgery: No Neurologic Surgery: No Orthopedic Surgery: Yes (BILATERAL KNEE REPLACEMENT) - Immunization History Immunization Up to Date: No - Suicide/Smoking/Psychosocial Hx Smoking History: Unknown if ever smoked Have you smoked in the past 12 months: No Number of Cigarettes Smoked Daily: 0 If you are a former smoker, when did you quit?: 1985 Cigars Per Day: 0 Information on smoking cessation initiated: No 'Breaking Loose' booklet given: 08/30/17 Hx Alcohol Use: No Drug/Substance Use Hx: No Substance Use Type: None Hx Substance Use Treatment: No Review of Systems - Review of Systems Able to Perform ROS?: Yes Comments:: 06/08/19 14:48 GEN: fever, chills, malaise, generalized weakness, no weight change HEENT: no ear pain, sore throat, vision change, or eye pain CV: no chest pain, palpitations, lightheadedness, syncope, or edema RESP: no cough, wheezing, or SOB GI: no abdominal pain, nausea, vomiting, diarrhea, constipation, or white/black/ bloody stool : no dysuria, hematuria, incontinence, retention, bleeding, or discharge MSK: no neck/back pain, muscle weakness/pain, or joint swelling/pain NEURO: no headache, seizure, vertigo, numbness, tingling, or focal weakness PSYCH: no substance use, no behavior change SKIN: rash, cellulitis, no jaundice ROS otherwise negative except as noted in HPI *Physical Exam - Vital Signs Last Vital Signs Temp Pulse Resp BP Pulse Ox 101.0 F H 92 H 18 90/52 L 100 06/08/19 14:00 06/08/19 14:00 06/08/19 14:06/08/19 14:00 06/08/19 14:00 - Physical Exam Comments: 06/08/19 14:49 GENERAL: a bit uncomfortable appearing, A/Ox4, mild distress which worsens on repositioning, morbidly obese, answers questions appropriately HEENT: PERRLA, EOMI, moist mucous membranes NECK/BACK: no midline ttp, no spinal stepoff or deformity, no hematoma, full ROM , neck supple CARDIOVASCULAR: irregularly irregular, normal S1S2, no MGR, strong peripheral pulses, capillary refill <2 seconds, extremities wwp, no edema LUNGS/RESPIRATORY: no respiratory distress, CTAB GI/ABDOMEN: symmetric [id number], normoactive BS, soft, no ttp, no midline pulsatile masses : no CVA tenderness EXTREMITIES: no muscle atrophy, no acute deformity SKIN: RLE with thigh erythema/warmth/tenderness to light touch laterally> medially extending from the proximal calf up to the right hip, skin is otherwise pale but warm and dry, no jaundice, no bruising NEUROLOGICAL: GCS 15, CN II-XII grossly intact, 5/5 strength proximally and distally, no facial droop ED Treatment Course - LABORATORY CBC & Chemistry Diagram: 06/12/19 06:35 06/12/19 06:35 - RADIOLOGY Radiology Studies Ordered: Category Date Time Status CHEST X-RAY PORTABLE* [RAD] Stat Radiology 06/08/19 14:34 Ordered Medical Decision Making - Medical Decision Making 06/08/19 14:53 74YOF p/w RLE redness/warmth/pain extending up to hip in the setting of chronic recurrent RLE cellulitis distally. Initial Vital Signs Temp Pulse Resp BP Pulse Ox 101.0 F H 92 H 18 90/52 L 100 06/08/19 14:00 06/08/19 14:00 06/08/19 14:00 06/08/19 14:00 06/08/19 14:00 Exam: As noted in Physical Exam section. DDX IBNLT: cellulitis, osteomyelitis, necrotizing soft tissue infection, sepsis , DVT, superficial venous thrombosis, CHF exacerbation, PVD, pulmonary HTN, etc W/U ordered: Septic w/u as noted below TX ordered: Ofirmev, abx EKG: Reviewed; results as noted in ECG Review section. Laboratory Tests 06/08/19 06/08/19 06/08/19 15:32 15:32 15:32 WBC 22.9 H RBC 5.29 H Hgb 14.2 Hct 44.4 MCV 84.0 MCH 26.9 MCHC 32.0 RDW 17.6 H Plt Count 154 MPV 9.0 D Absolute Neuts (auto) 21.2 H Neutrophils % 92.8 H D Lymphocytes % 2.4 L D Monocytes % 4.4 Eosinophils % 0.1 D Basophils % 0.3 Nucleated RBC % 0 PT with INR INR PTT (Actin FS) VBG pH POC VBG pCO2 POC VBG pO2 VBG HCO3 VBG O2 Sat (Franny) VBG Base Excess Sodium 135 L Potassium 5.1 Chloride 98 Carbon Dioxide 34 H Anion Gap 4 L BUN 27.0 H Creatinine 0.6 Est GFR (CKD-EPI)AfAm 105.54 Est GFR (CKD-EPI)NonAf 91.06 Random Glucose 89 Lactic Acid Calcium 8.9 Total Bilirubin 1.0 AST 19 ALT 16 Alkaline Phosphatase 57 Creatine Kinase 40 CK-MB (CK-2) Troponin I < 0.02 Total Protein 6.0 L Albumin 3.4 Blood Type Antibody Screen 06/08/19 06/08/19 06/08/19 15:32 15:32 15:32 WBC RBC Hgb Hct MCV MCH MCHC RDW Plt Count MPV Absolute Neuts (auto) Neutrophils % Lymphocytes % Monocytes % Eosinophils % Basophils % Nucleated RBC % PT with INR 15.70 H INR 1.33 H PTT (Actin FS) 32.0 VBG pH 7.31 POC VBG pCO2 75.5 H* POC VBG pO2 22.1 L VBG HCO3 36.8 H VBG O2 Sat (Franny) 35.3 L VBG Base Excess 7.8 H Sodium Potassium Chloride Carbon Dioxide Anion Gap BUN Creatinine Est GFR (CKD-EPI)AfAm Est GFR (CKD-EPI)NonAf Random Glucose Lactic Acid 2.0 Calcium Total Bilirubin AST ALT Alkaline Phosphatase Creatine Kinase CK-MB (CK-2) Troponin I Total Protein Albumin Blood Type Antibody Screen 06/08/19 06/08/19 15:32 15:32 WBC RBC Hgb Hct MCV MCH MCHC RDW Plt Count MPV Absolute Neuts (auto) Neutrophils % Lymphocytes % Monocytes % Eosinophils % Basophils % Nucleated RBC % PT with INR INR PTT (Actin FS) VBG pH POC VBG pCO2 POC VBG pO2 VBG HCO3 VBG O2 Sat (Franny) VBG Base Excess Sodium Potassium Chloride Carbon Dioxide Anion Gap BUN Creatinine Est GFR (CKD-EPI)AfAm Est GFR (CKD-EPI)NonAf Random Glucose Lactic Acid Calcium Total Bilirubin AST ALT Alkaline Phosphatase Creatine Kinase CK-MB (CK-2) Cancelled Troponin I Total Protein Albumin Blood Type Cancelled Antibody Screen Cancelled RAD/CHEST X-RAY PORTABLE* Chest X-Ray: Indication: Evaluate sepsis Prior: May 14, 2019 Procedure: Single view of the chest is performed. Findings: Degenerative changes of the shoulders are noted. No other osseous abnormalities are identified. Cardiac silhouette is moderately enlarged as noted on prior exam. Mediastinum is within normal limits with no evidence of widening. Aortic knob and descending aorta are well defined. There is no focal infiltrate or pleural effusion. No pneumothorax or pulmonary contusion is identified. IMPRESSION: No focal infiltrate identified in patient with cardiomegaly. US/DUPLEX VASCUL US-1 LEG Right lower extremity venous ultrasound. Clinical information given: swelling, pain, evaluate for DVT The exam was performed utilizing compression, grayscale, color flow and doppler sonography. There is no sonographic evidence of deep vein thrombosis. If there is clinical concern for possible isolated calf DVT or if there is a clinical diagnosis of uncomplicated superficial thrombophlebitis, then correlation with close follow up sonography is suggested. No obvious popliteal cyst is identified. Impression : No DVT is identified involving the right leg. Please see above. RAD/FEMUR-RIGHT Right femur: Cellulitis. 5 views of the right femur reveal a knee replacement, right hip degenerative changes with left hip degenerative findings, rotated pelvis, patent SI joints and excessive soft tissues with prominent bowel loops. There are some soft tissue calcifications but no sign of soft tissue air. If one is concerned about osteomyelitis, three-phase bone scan or MR maybe of help. RAD/LEG TIB/FIB-RIGHT Right tibia and fibula: Possible soft tissue gas. Cellulitis 4 views of the right leg reveal an knee replacement which is intact with no sign of loosening. There is soft tissue prominence with soft tissue vascular calcifications. There are degenerative changes in the ankle area. There is calcaneal spurring. Blastic or lytic changes are not seen. There is no sign of soft tissue gas. If one is concerned about osteomyelitis, three-phase bone scan or MR may be of help. Vital Signs Temperature 101.0 F H 06/08/19 14:00 Pulse Rate 87 06/08/19 17:23 Respiratory Rate 16 06/08/19 17:23 Blood Pressure 105/59 L 06/08/19 17:23 O2 Sat by Pulse Oximetry (%) 98 06/08/19 17:23 06/08/19 18:17 The Pt is unsafe for discharge at this time. They require further hospital observation, workup, and treatment. Microblog sent to [facility] for admission. Blank Decision to Admit order is placed per ED protocol. 06/08/19 19:26 I spoke with Kelly Fischer; patient admitted, Decision to Admit order corrected. *DC/Admit/Observation/Transfer Diagnosis at time of Disposition: Sepsis, UTI (urinary tract infection) Cellulitis Qualifiers: Site of cellulitis of extremity: lower extremity - Discharge Dispostion Condition at time of disposition: Guarded Decision to Admit order: Yes - Referrals - Patient Instructions - Post Discharge Activity
[2019-06-08] MEDS ORDERED: SODIUM CHLORIDE 0.9% 500 ML INFUS.BAG IV ONE (14:54)
[2019-06-08] MEDS ORDERED: predniSONE 20 MG TABLET (UD) PO ONE (14:58)
[2019-06-08] MEDS ORDERED: AZTREONAM 1 GM in DEXTROSE 5%-WATER - 50 ML IVPB ONE (15:00)
[2019-06-08] MEDS ORDERED: LINEZOLID 600 MG PREMIX BAG 600 MG in PREMIX 300 IV ONE (15:01)
[2019-06-08] MEDS ORDERED: ACETAMINOPHEN 500 MG TABLET (FP) PO ONE ×2 (15:14→23:56)
[2019-06-08] MEDS ORDERED: ACETAMINOPHEN 325 MG TABLET (FP) ONE (15:18)
[2019-06-08] MEDS ORDERED: predniSONE 20 MG TABLET (UD) ONE (15:18)
[2019-06-08 15:51] LABS: VENOUS PH 7.31 (7.31-7.41)
[2019-06-08 15:52] LABS: EOS % 0.1 % (0-4.5)
[2019-06-08 15:53] LABS: VENOUS PO2 22.1 mmHg (30-40)
[2019-06-08 15:54] LABS: VENOUS PC02 75.5 mmHg (41-51)
--- NOTE | 2019-06-08 16:03 | PDOC ---
Documentation entered by Dilip Bond SCRIBE, acting as scribe for Argenis Noriega MD. Argenis Noriega MD: This documentation has been prepared by the Varun stringer Joel, SCRIBE, under my direction and personally reviewed by me in its entirety. I confirm that the documentation accurately reflects all work, treatment, procedures, and medical decision making performed by me. Attending Attestation - Resident Resident Name: McleanKalpana - ED Attending Attestation I have performed the following: I have examined & evaluated the patient, The case was reviewed & discussed with the resident, I agree w/resident's findings & plan, Exceptions are as noted - HPI HPI: 06/08/19 15:19 The patient is a 74 year old female with a significant PMH of recurrent RLE cellulitis (currently on Prednisone taper), MRSA, Sjogrens syndrome, Afib, COPD , CHF, HTN, and hyperlipidemia who presents to the emergency department with RLE pain since this morning. The patient describes her pain as localized in the right thigh with radiation circumferentially around the thigh and towards the right hip, with associated warmth and redness. She also notes fevers and chills since this morning. The patient denies chest pain, shortness of breath, headache and dizziness. Denies nausea, vomit, diarrhea and constipation. Denies dysuria, frequency, urgency and hematuria. Allergies: Penicillins, Clindamycin, Doxycycline, Levofloxacin, Vancomycin Past surgical history: None reported. Social history: No reported cigarette, alcohol, or drug use. PCP: Dr. Mike Boykin - Physicial Exam PE: GENERAL: Awake, alert, and fully oriented, in no acute distress. Obese HEAD: No signs of trauma EYES: PERRLA, EOMI, sclera anicteric, conjunctiva clear ENT: Auricles normal inspection, hearing grossly normal, nares patent, oropharynx clear without exudates. Moist mucosa NECK: Normal ROM, supple, no lymphadenopathy, JVD, or masses LUNGS: Breath sounds equal, clear to auscultation bilaterally. No wheezes, and no crackles HEART: Irregularly irregular, normal S1 and S2, no murmurs, rubs or gallops ABDOMEN: Soft, nontender, normoactive bowel sounds. No guarding, no rebound. No masses EXTREMITIES: Normal range of motion. BLE edematous with chronic venous stasis changes. RLE with significant erythema to the R posterior and lateral thigh, as well as the lower leg. +Tenderness to R popliteal fossa. No clubbing or cyanosis. NEUROLOGICAL: Cranial nerves II through XII grossly intact. Normal speech. Motor and sensation intact SKIN: Warm, dry, normal turgor, no rashes or lesions noted. - Medical Decision Making Pt with significant cellulitis to RLE, history of poor circulation and prior cellulitis. She has many drug allergies, so antibiotic therapy was guided by prior visits. Will admit, as the cellulitis is extensive.
[2019-06-08 16:13] LABS: INR 1.33 (0.83-1.09); PROTHROMBIN TIME (PATIENT) 15.7 SEC (9.7-13.0)
[2019-06-08 16:14] LABS: BASO % 0.3 % (0-2.0); HEMATOCRIT 44.4 % (32.4-45.2); HEMOGLOBIN 14.2 GM/dL (10.7-15.3); LYMPH % 2.4 % (8-40); MCH 26.9 pg (25.7-33.7); MONO % 4.4 % (3.8-10.2); NEUT % 92.8 % (42.8-82.8); PLATELET COUNT 154 K/MM3 (134-434); RBC 5.29 M/mm3 (3.60-5.2); RDW 17.6 % (11.6-15.6); WHITE BLOOD COUNT 22.9 K/mm3 (4.0-10.0)
[2019-06-08 16:28] LABS: ALBUMIN 3.4 g/dl (3.4-5.0); CALCIUM 8.9 mg/dL (8.5-10.1); CREATININE 0.6 mg/dL (0.55-1.3); POTASSIUM 5.1 mmol/L (3.5-5.1)
[2019-06-08 18:46] LABS: EPI CELLS 1.7 /HPF (0-5/HPF); HYALINE CASTS 137 /lpf (0-8); URINE APPEARANCE CLEAR; URINE BACTERIA 522.2 /hpf (NEGATIVE); URINE BILIRUBIN 1+ (NEGATIVE); URINE COLOR DK YELLOW; URINE GLUCOSE (UA) NEGATIVE (NEGATIVE); URINE KETONE TRACE (NEGATIVE); URINE LEUK ESTERASE 1+ (NEGATIVE); URINE NITRITE POSITIVE (NEGATIVE); URINE PROTEIN TRACE (NEGATIVE); URINE RBC 3 /hpf (0-4); URINE WBC 44 /hpf (0-5)
--- NOTE | 2019-06-08 19:31 | HP ---
CHIEF COMPLAINT: Cellulitis PCP: Evangelina HISTORY OF PRESENT ILLNESS: 74 F with PMH significant for recurrent RLE Cellulitis- MRSA, Pseudomona, Klebsiella infections, A-fib, HTN, HLD, DVT, COPD, LEON, RA, who presents today with a new cellulitis on her right upper thigh. She woke up today feeling febrile, and chills with shivering. Her shivering subsided on its own. She also endorses a new headache. She feels pain in her right upper leg and hip but it does not hinder her normal ambulation level. She feels her normal cellulitis is under control at the moment. She does not endorse cough, chest pain, shortness of breath, abdominal pain, nausea, vomiting, diarrhea or any dysuria or hematuria. ER course was notable for: (1) Patient was found to be 101 when she arrived in the ED. EKG was done which showed Afib, but no significant changes from prior EKG. Was given 2L NS, 1 gram of Aztreonam, 600 mg of Linezolid, 5/325 of Oxycodone and Tylenol, and 60 mg of Prednisone. (2)Chest x-ray showed no infiltrate. (3)Xray of the right femur, tibia and fibula showed no free gas, and some degenerative changes in the right and left hip, and soft tissue vascular calcifications. Recent Travel: None PAST MEDICAL HISTORY: A-fib, HTN, DVT, COPD, morbid obesity, LEON, RA, RLE cellulitis which has cultured MRSA infection, Pseudomona infection, Klebsiella infection. PAST SURGICAL HISTORY: Right knee replacement Social History: Smoking: Quit in 1984 Alcohol: Denies Drugs: Denies Family History: Allergies Penicillins Allergy (Severe, Verified 06/08/19 14:02) Swelling clindamycin Allergy (Mild, Verified 06/08/19 14:02) Rash doxycycline Allergy (Verified 06/08/19 14:02) Swelling levofloxacin [From Levaquin] Allergy (Verified 06/08/19 14:02) Rash vancomycin Adverse Reaction (Mild, Verified 06/08/19 14:02) Itching adhesive tape Adverse Reaction (Verified 06/08/19 14:02) "RIPS MY SKIN" HOME MEDICATIONS: Home Medications Medication Instructions Recorded Ascorbate Calcium [Vitamin C] 1,000 mg PO DAILY 08/30/15 Cholecalciferol (Vitamin D3) 1,000 unit PO BID 08/30/15 [Vitamin D3] Cyanocobalamin [Vitamin B12 -] 1,000 mcg PO DAILY 08/30/15 Oxycodone/APAP [Percocet - Must 1 each NR QID PRN 08/30/15 Order Individual Components] Simvastatin 10 mg PO HS 08/30/15 Guaifenesin [Mucinex] 600 mg PO DAILY 06/20/17 Metoprolol Succinate [Toprol XL -] 50 mg PO BID #60 tab.sr 06/25/17 Fish Oil/Borage/Flax/Om3,6,9 1 1 cap PO DAILY 07/12/17 [[place] 3-6-9 1,200 mg Softgel] Diltiazem [Cardizem -] 240 mg PO TID 08/29/17 Furosemide [Lasix] 40 mg PO DAILY PRN 08/29/17 Apixaban [Eliquis] 5 mg PO BID 04/22/19 Enalapril Maleate [Vasotec -] 2.5 mg PO DAILY 05/14/19 Gabapentin [Neurontin] 400 mg PO TID 05/14/19 Hydroxychloroquine Sulfate 200 mg PO DAILY 05/14/19 Ranitidine HCl [Zantac] 150 mg PO BID 05/14/19 Linezolid [Zyvox] 600 mg PO BID #14 tablet 05/19/19 predniSONE [Deltasone -] 10 mg PO DAILY #75 tablet 05/19/19 REVIEW OF SYSTEMS In addition to above CONSTITUTIONAL: fever, chills, diaphoresis, headache Absent:generalized weakness, malaise, loss of appetite, weight change HEENT: Absent: rhinorrhea, nasal congestion, throat pain, throat swelling, difficulty swallowing, mouth swelling, ear pain, eye pain, visual changes CARDIOVASCULAR: Absent: chest pain, syncope, palpitations, irregular heart rate, lightheadedness , peripheral edema RESPIRATORY: Absent: cough, shortness of breath, dyspnea with exertion, orthopnea, wheezing, stridor, hemoptysis GASTROINTESTINAL: Absent: abdominal pain, abdominal distension, nausea, vomiting, diarrhea, constipation, melena, hematochezia GENITOURINARY: Absent: dysuria, frequency, urgency, hesitancy, hematuria, flank pain, genital pain MUSCULOSKELETAL: Absent: myalgia, arthralgia, joint swelling, back pain, neck pain SKIN: new cellulitis on thigh PHYSICAL EXAMINATION Vital Signs - 24 hr 06/08/19 06/08/19 06/08/19 14:00 17:23 18:38 Temperature 101.0 F H Pulse Rate 92 H 98 H Pulse Rate [ 87 Left Apical] Respiratory 18 16 Rate Blood Pressure 90/52 L Blood Pressure 105/59 L [Left Arm] O2 Sat by Pulse 100 98 97 Oximetry (%) GENERAL: Awake, alert, and fully oriented, in no acute distress. Obese body habitus. HEAD: Normal with no signs of trauma. EYES: Extraocular movements intact, sclera anicteric, conjunctiva clear. EARS, NOSE, THROAT: Ears normal, nares patent, oropharynx clear without exudates. Moist mucous membranes. Hearing aids in place. Nasal cannula at 2LPM NECK: Normal range of motion, supple without lymphadenopathy, JVD, or masses. LUNGS: Breath sounds equal, clear to auscultation bilaterally. No wheezes, and no crackles. No accessory muscle use. HEART: Irregularly irregular without murmur, rub or gallop. ABDOMEN: Soft, nontender, not distended, normoactive bowel sounds, no guarding, no rebound, no masses. UPPER EXTREMITIES: 2+ pulses, warm, well-perfused. No cyanosis. No clubbing. No peripheral edema. LOWER EXTREMITIES: 2+ pulses, warm, well-perfused. No calf tenderness. No peripheral edema. Right lower leg is wrapped in bandaging covering recurrent cellulitis. Right thigh is erythematous from hip to approximately 12 cm down and wrapping in a band like pattern around thigh. Left lower leg shows signs of venous stasis. PSYCHIATRIC: Cooperative. Good eye contact. Appropriate mood and affect. Laboratory Results - last 24 hr 06/08/19 06/08/19 06/08/19 15:32 15:32 15:32 WBC 22.9 H RBC 5.29 H Hgb 14.2 Hct 44.4 MCV 84.0 MCH 26.9 MCHC 32.0 RDW 17.6 H Plt Count 154 MPV 9.0 D Absolute Neuts (auto) 21.2 H Neutrophils % 92.8 H D Lymphocytes % 2.4 L D Monocytes % 4.4 Eosinophils % 0.1 D Basophils % 0.3 Nucleated RBC % 0 PT with INR INR PTT (Actin FS) VBG pH POC VBG pCO2 POC VBG pO2 VBG HCO3 VBG O2 Sat (Franny) VBG Base Excess Sodium 135 L Potassium 5.1 Chloride 98 Carbon Dioxide 34 H Anion Gap 4 L BUN 27.0 H Creatinine 0.6 Est GFR (CKD-EPI)AfAm 105.54 Est GFR (CKD-EPI)NonAf 91.06 Random Glucose 89 Lactic Acid Calcium 8.9 Total Bilirubin 1.0 AST 19 ALT 16 Alkaline Phosphatase 57 Creatine Kinase 40 CK-MB (CK-2) Troponin I < 0.02 Total Protein 6.0 L Albumin 3.4 Urine Color Urine Appearance Urine pH Ur Specific [place] Urine Protein Urine Glucose (UA) Urine Ketones Urine Blood Urine Nitrite Urine Bilirubin Urine Urobilinogen Ur Leukocyte Esterase Urine WBC (Auto) Urine RBC (Auto) Urine Casts (Auto) U Pathogenic Cast Auto U Epithel Cells (Auto) Urine Bacteria (Auto) Blood Type Antibody Screen 06/08/19 06/08/19 06/08/19 15:32 15:32 15:32 WBC RBC Hgb Hct MCV MCH MCHC RDW Plt Count MPV Absolute Neuts (auto) Neutrophils % Lymphocytes % Monocytes % Eosinophils % Basophils % Nucleated RBC % PT with INR 15.70 H INR 1.33 H PTT (Actin FS) 32.0 VBG pH 7.31 POC VBG pCO2 75.5 H* POC VBG pO2 22.1 L VBG HCO3 36.8 H VBG O2 Sat (Franny) 35.3 L VBG Base Excess 7.8 H Sodium Potassium Chloride Carbon Dioxide Anion Gap BUN Creatinine Est GFR (CKD-EPI)AfAm Est GFR (CKD-EPI)NonAf Random Glucose Lactic Acid 2.0 Calcium Total Bilirubin AST ALT Alkaline Phosphatase Creatine Kinase CK-MB (CK-2) Troponin I Total Protein Albumin Urine Color Urine Appearance Urine pH Ur Specific [place] Urine Protein Urine Glucose (UA) Urine Ketones Urine Blood Urine Nitrite Urine Bilirubin Urine Urobilinogen Ur Leukocyte Esterase Urine WBC (Auto) Urine RBC (Auto) Urine Casts (Auto) U Pathogenic Cast Auto U Epithel Cells (Auto) Urine Bacteria (Auto) Blood Type Antibody Screen 06/08/19 06/08/19 06/08/19 15:32 15:32 17:14 WBC RBC Hgb Hct MCV MCH MCHC RDW Plt Count MPV Absolute Neuts (auto) Neutrophils % Lymphocytes % Monocytes % Eosinophils % Basophils % Nucleated RBC % PT with INR INR PTT (Actin FS) VBG pH POC VBG pCO2 POC VBG pO2 VBG HCO3 VBG O2 Sat (Franny) VBG Base Excess Sodium Potassium Chloride Carbon Dioxide Anion Gap BUN Creatinine Est GFR (CKD-EPI)AfAm Est GFR (CKD-EPI)NonAf Random Glucose Lactic Acid Calcium Total Bilirubin AST ALT Alkaline Phosphatase Creatine Kinase CK-MB (CK-2) Cancelled Troponin I Total Protein Albumin Urine Color Dk yellow Urine Appearance Clear Urine pH 5.0 Ur Specific [place] 1.034 Urine Protein Trace Urine Glucose (UA) Negative Urine Ketones Trace H Urine Blood Negative Urine Nitrite Positive H Urine Bilirubin 1+ H Urine Urobilinogen 1.0 Ur Leukocyte Esterase 1+ H Urine WBC (Auto) 44 Urine RBC (Auto) 3 Urine Casts (Auto) 137 U Pathogenic Cast Auto None U Epithel Cells (Auto) 1.7 Urine Bacteria (Auto) 522.2 Blood Type Cancelled Antibody Screen Cancelled ASSESSMENT/PLAN: 74 F with PMH significant for RLE Cellulitis- MRSA, Pseudomona, Klebsiella infections, A-fib, HTN, HLD, DVT, COPD who presents today with sepsis secondary to UTI vs new right upper leg cellulitis. U/A shows 522.2 bacteria with 44 WBC, and new right upper leg cellulitis is accompanied with WBC of 22.9 and neutrophilia. 1) Sepsis Aztreonam and Linezolid given. Meropenem 500 grams in AM. Prednisone 60 mg given. Continue 10 mg prednisone PO in AM. Consult ID Follow up Blood Culture Follow up Urine Culture LR @ 83 ml/hr Right foot X-Ray CBC BMP 2)Right leg cellulitis vs steroid responsive dermatitis Consulting Dr. Gonzalez for management. 3)A-fib Apixiban 5 mg PO BID Currently holding rate control meds, will start back on Metoprolol 25 mg PO BID if needed Hold Diltiazem 240 mg PO TID 4)COPD Continue on NC 3LPM 5) HTN Patient is currently hypotensive, holding metoprolol 25 mg PO BID. Enalapril 2.5 mg PO QDaily Hold Lasix 40 mg PO Daily PRN 6) HLD Simvastatin 10 mg PO HS 7)Chronic low back pain (Spinal Stenosis) Gabapentin 400 mg PO TID DVT Prophylaxis: Apixaban 5 mg PO BID F: LR@ 83 ml/hr E: Trend BMP N: Sodium diet Dispo: Admitted to medicine floors. Problem List - Problem (1) Cellulitis Code(s): L03.90 - CELLULITIS, UNSPECIFIED Qualifiers: Site of cellulitis of extremity: lower extremity (2) Sepsis Code(s): A41.9 - SEPSIS, UNSPECIFIED ORGANISM (3) UTI (urinary tract infection) Code(s): N39.0 - URINARY TRACT INFECTION, SITE NOT SPECIFIED (4) Allergy to multiple antibiotics Code(s): Z88.1 - ALLERGY STATUS TO OTHER ANTIBIOTIC AGENTS STATUS (5) Atrial fibrillation Code(s): I48.91 - UNSPECIFIED ATRIAL FIBRILLATION Qualifiers: Atrial fibrillation type: chronic Qualified Code(s): I48.2 - Chronic atrial fibrillation (6) HLD (hyperlipidemia) Code(s): E78.5 - HYPERLIPIDEMIA, UNSPECIFIED (7) HTN (hypertension) Code(s): I10 - ESSENTIAL (PRIMARY) HYPERTENSION Visit type - Emergency Visit Emergency Visit: Yes Care time: The patient presented to the Emergency Department on the above date and was hospitalized for further evaluation of their emergent condition. - New Patient This patient is new to me today: Yes Date on this admission: 06/08/19 - Critical Care Critical Care patient: No ATTENDING PHYSICIAN STATEMENT I saw and evaluated the patient. I reviewed the resident's note and discussed the case with the resident. I agree with the resident's findings and plan as documented. SUBJECTIVE: OBJECTIVE: ASSESSMENT AND PLAN:
[2019-06-08] MEDS ORDERED: ACETAMINOPHEN 325 MG TABLET (FP) PO PRN (19:58)
[2019-06-08] MEDS ORDERED: ATORVASTATIN CA 10 MG TABLET (FP) ONE (23:39)
[2019-06-08] MEDS ORDERED: APIXABAN 5 MG TABLET PO ONE (23:39)
--- NOTE | 2019-06-08 23:55 | PN ---
Teaching Attending Note Name of Resident: Kennedi Tracey ATTENDING PHYSICIAN STATEMENT I saw and evaluated the patient. I reviewed the resident's note and discussed the case with the resident. I agree with the resident's findings and plan as documented. PCP: Isaias CV: Dr. Stevens Vasc: Dr. Gonzalez Seen and examined; 74 y/o female presenting for leg pain with history of recent cellulitis/chronic LE wound (Dr. Lee ID) presents with worsening erythema with streaking up the leg to the thigh as well as urinary frequency; she is found to be septic 2/2 cellulitis +/- UTI. Prior to cellulitis had steroid responsive dermatitis of R-leg and has been seen by Dr. Gonzalez. Hemodynamics stabilized and appropriate for floor. Rest of hx per resident note. HX atrial fib on eliquis, HTN, hyperlipidemia, chronic hypoxic respiratory failure, COPD, chronic venous insufficiency, lymphedema, Sjogren's, osteoarthritis, RA, DVT, spinal stenosis, chronic pain, right knee replacement VS, labs, imaging reviewed NAD, AAO, resting in bed NC AT EOMI PERRLA RRR a1/2 no mgr Leg is wrapped (pending nursing/kerlex to help with rewrapping) with streaking extending up to mid-thigh CN2-12 wnl, no fnd Normal mood, appropriate affect XR leg pending to verify no free air EKG reviewed Prior micro reviewed; 05/14 cultures with MRSA Klebsiella and Pseud; prior ESBL+ in urine Negative DVT b/l Echo 07/2017 with normal LVEF and mild MR ASSESSMENT AND PLAN: Patient presents with sepsis 2/2 UTI +/- cellulitis; she is hemodynamically stable and mentating well and appropriate for the floor. # Sepsis 2/2 UTI +/- Cellulitis # Leukocytosis with bandemia # Chronic Respiratory failure 2/2 COPD and obesity hypoventillation (per 's 2017 consult), not in exacerbation, with chronic hypercarbia on BMP # Chronic venous insufficiency with chronic dermatitis with underlying lymphedema # Hx RA, Sjogren's Syndrome # Hx Atrial Fib on Eliquis # Hx HTN # Hx HLD # Hx DVT # Hx Spinal stenosis We will admit the patient to medicine and place on med surg. IVF overnight with LR and empiric coverage with abx (multiple allergies to multiple drug classes with some documented reactions not true allergies--will discuss with patient and pharmacy)-given ESBL+ in urine in past with current frequency need to cover for UTI alongside cellulitis. Past abx noted; need to cover for pseud, MRSA, anaerobes, and ESBL+ ecoli so Zyvox, merrem would be appropriate. Consult Dr. Gonzalez's team for wound care in AM; defer inpt vs. outpt VERO, arterial US to his service. Consulting Dr. Lee for abx recs. Continue home eliquis. Holding home dilt/metoprolol overnight but can resume in AM if clinically improved. Holding PITER; resume when appropriate. Need to confirm home doses of medications; from last admission there is no DC summary and it appears some medications were entered in error under DC medications. Teaching note from day of DC present and suspected to be accurate (lists she is on Dilt CR 360 and metoprolol succinate 50 BID) but appears that she was precribed 240mg PO TID by Dr. Gutierrez. Full Code DVT px: eliquis
[2019-06-09] MEDS ORDERED: LINEZOLID 600 MG PREMIX BAG 600 MG/300 ML BAG IV SCH (03:00)
[2019-06-09] MEDS ORDERED: AZTREONAM 1 GM VIAL (RESTRICTED TO ID) IVPB SCH (03:00)
[2019-06-09] MEDS ORDERED: AZTREONAM 1 GM VIAL (RESTRICTED TO ID) ONE (03:14)
[2019-06-09] MEDS ORDERED: MEROPENEM 500 MG in DEXTROSE 5%-WATER 100 ML IVPB SCH (05:45)
[2019-06-09 08:45] LABS: BLOOD UREA NITROGEN 16.7 mg/dL (7-18); CALCIUM 8.3 mg/dL (8.5-10.1); CREATININE 0.4 mg/dL (0.55-1.3); POTASSIUM 4.3 mmol/L (3.5-5.1)
[2019-06-09] MEDS ORDERED: predniSONE 10 MG TABLET (UD) ONE (09:55)
[2019-06-09] MEDS ORDERED: predniSONE 10 MG TABLET (UD) PO SCH (10:00)
[2019-06-09] MEDS ORDERED: ENOXAPARIN NA (PORCINE) 40 MG/0.4 ML DISP.SYRIN SQ SCH (10:00)
--- NOTE | 2019-06-09 10:02 | PN ---
Physical Exam: SUBJECTIVE: Patient seen and examined. C/o of pain with movement. No chest pain , no SOB. OBJECTIVE: Vital Signs Period Temp Pulse Resp BP Sys/William Pulse Ox Last 24 Hr 98 F-101.0 F 74-98 16-20 90-110/41-72 97-100 Vital Signs Temp 99.0 F 06/09/19 20:30 Pulse 68 06/09/19 20:30 Resp 16 06/09/19 20:30 BP 118/56 L 06/09/19 20:30 Pulse Ox 95 06/09/19 20:30 Intake & Output 06/08/19 06/09/19 06/09/19 23:59 11:59 23:59 Weight 117.027 kg Other: Voiding Method Incontinent Height 1.7 m Body Mass Index (BMI) 40.4 GENERAL: The patient is morbidly obese, awake, alert, and fully oriented, in mild painful distress. LUNGS: Breath sounds equal, clear to auscultation bilaterally HEART: S1, S2 ABDOMEN: Soft, nontender, obese, normoactive bowel sounds EXTREMITIES:RLE, wrapped in bandaged from knee to above ankle. R hip with erythema and scaling, warm on lateral aspect NEUROLOGICAL: Cranial nerves II through XII grossly intact.No facial droop. Normal speech, gait not observed. CBC, BMP 06/09/19 10:58 06/09/19 07:43 Laboratory Results - last 24 hr 06/08/19 06/08/19 06/08/19 15:32 15:32 15:32 WBC 22.9 H Corrected WBC (auto) RBC 5.29 H Hgb 14.2 Hct 44.4 MCV 84.0 MCH 26.9 MCHC 32.0 RDW 17.6 H Plt Count 154 MPV 9.0 D Absolute Neuts (auto) 21.2 H Neutrophils % 92.8 H D Neutrophils % (Manual) 89.0 H Band Neutrophils % 3.0 Lymphocytes % 2.4 L D Lymphocytes % (Manual) 7.0 L Monocytes % 4.4 Monocytes % (Manual) 1 L Eosinophils % 0.1 D Eosinophils % (Manual) 0.0 Basophils % 0.3 Basophils % (Manual) 0.0 Nucleated RBC % 0 Manual Slide Review Platelet Comment PT with INR INR PTT (Actin FS) VBG pH POC VBG pCO2 POC VBG pO2 VBG HCO3 VBG O2 Sat (Franny) VBG Base Excess Sodium 135 L Potassium 5.1 Chloride 98 Carbon Dioxide 34 H Anion Gap 4 L BUN 27.0 H Creatinine 0.6 Est GFR (CKD-EPI)AfAm 105.54 Est GFR (CKD-EPI)NonAf 91.06 Random Glucose 89 Lactic Acid Calcium 8.9 Magnesium Total Bilirubin 1.0 AST 19 ALT 16 Alkaline Phosphatase 57 Creatine Kinase 40 CK-MB (CK-2) Troponin I < 0.02 Total Protein 6.0 L Albumin 3.4 Urine Color Urine Appearance Urine pH Ur Specific [place] Urine Protein Urine Glucose (UA) Urine Ketones Urine Blood Urine Nitrite Urine Bilirubin Urine Urobilinogen Ur Leukocyte Esterase Urine WBC (Auto) Urine RBC (Auto) Urine Casts (Auto) U Pathogenic Cast Auto U Epithel Cells (Auto) Urine Bacteria (Auto) Blood Type Antibody Screen 06/08/19 06/08/19 06/08/19 15:32 15:32 15:32 WBC Corrected WBC (auto) RBC Hgb Hct MCV MCH MCHC RDW Plt Count MPV Absolute Neuts (auto) Neutrophils % Neutrophils % (Manual) Band Neutrophils % Lymphocytes % Lymphocytes % (Manual) Monocytes % Monocytes % (Manual) Eosinophils % Eosinophils % (Manual) Basophils % Basophils % (Manual) Nucleated RBC % Manual Slide Review Platelet Comment PT with INR 15.70 H INR 1.33 H PTT (Actin FS) 32.0 VBG pH 7.31 POC VBG pCO2 75.5 H* POC VBG pO2 22.1 L VBG HCO3 36.8 H VBG O2 Sat (Franny) 35.3 L VBG Base Excess 7.8 H Sodium Potassium Chloride Carbon Dioxide Anion Gap BUN Creatinine Est GFR (CKD-EPI)AfAm Est GFR (CKD-EPI)NonAf Random Glucose Lactic Acid 2.0 Calcium Magnesium Total Bilirubin AST ALT Alkaline Phosphatase Creatine Kinase CK-MB (CK-2) Troponin I Total Protein Albumin Urine Color Urine Appearance Urine pH Ur Specific [place] Urine Protein Urine Glucose (UA) Urine Ketones Urine Blood Urine Nitrite Urine Bilirubin Urine Urobilinogen Ur Leukocyte Esterase Urine WBC (Auto) Urine RBC (Auto) Urine Casts (Auto) U Pathogenic Cast Auto U Epithel Cells (Auto) Urine Bacteria (Auto) Blood Type Antibody Screen 06/08/19 06/08/19 06/08/19 15:32 15:32 17:14 WBC Corrected WBC (auto) RBC Hgb Hct MCV MCH MCHC RDW Plt Count MPV Absolute Neuts (auto) Neutrophils % Neutrophils % (Manual) Band Neutrophils % Lymphocytes % Lymphocytes % (Manual) Monocytes % Monocytes % (Manual) Eosinophils % Eosinophils % (Manual) Basophils % Basophils % (Manual) Nucleated RBC % Manual Slide Review Platelet Comment PT with INR INR PTT (Actin FS) VBG pH POC VBG pCO2 POC VBG pO2 VBG HCO3 VBG O2 Sat (Franny) VBG Base Excess Sodium Potassium Chloride Carbon Dioxide Anion Gap BUN Creatinine Est GFR (CKD-EPI)AfAm Est GFR (CKD-EPI)NonAf Random Glucose Lactic Acid Calcium Magnesium Total Bilirubin AST ALT Alkaline Phosphatase Creatine Kinase CK-MB (CK-2) Cancelled Troponin I Total Protein Albumin Urine Color Dk yellow Urine Appearance Clear Urine pH 5.0 Ur Specific [place] 1.034 Urine Protein Trace Urine Glucose (UA) Negative Urine Ketones Trace H Urine Blood Negative Urine Nitrite Positive H Urine Bilirubin 1+ H Urine Urobilinogen 1.0 Ur Leukocyte Esterase 1+ H Urine WBC (Auto) 44 Urine RBC (Auto) 3 Urine Casts (Auto) 137 U Pathogenic Cast Auto None U Epithel Cells (Auto) 1.7 Urine Bacteria (Auto) 522.2 Blood Type Cancelled Antibody Screen Cancelled 06/09/19 06/09/19 07:43 07:43 WBC Cancelled Corrected WBC (auto) Cancelled RBC Cancelled Hgb Cancelled Hct Cancelled MCV Cancelled MCH Cancelled MCHC Cancelled RDW Cancelled Plt Count Cancelled MPV Cancelled Absolute Neuts (auto) Neutrophils % Neutrophils % (Manual) Band Neutrophils % Lymphocytes % Lymphocytes % (Manual) Monocytes % Monocytes % (Manual) Eosinophils % Eosinophils % (Manual) Basophils % Basophils % (Manual) Nucleated RBC % Manual Slide Review Cancelled Platelet Comment Cancelled PT with INR INR PTT (Actin FS) VBG pH POC VBG pCO2 POC VBG pO2 VBG HCO3 VBG O2 Sat (Franny) VBG Base Excess Sodium 142 Potassium 4.3 Chloride 104 Carbon Dioxide 32 Anion Gap 5 L BUN 16.7 Creatinine 0.4 L Est GFR (CKD-EPI)AfAm 120.60 Est GFR (CKD-EPI)NonAf 104.06 Random Glucose 86 Lactic Acid Calcium 8.3 L Magnesium 2.0 Total Bilirubin AST ALT Alkaline Phosphatase Creatine Kinase CK-MB (CK-2) Troponin I Total Protein Albumin Urine Color Urine Appearance Urine pH Ur Specific [place] Urine Protein Urine Glucose (UA) Urine Ketones Urine Blood Urine Nitrite Urine Bilirubin Urine Urobilinogen Ur Leukocyte Esterase Urine WBC (Auto) Urine RBC (Auto) Urine Casts (Auto) U Pathogenic Cast Auto U Epithel Cells (Auto) Urine Bacteria (Auto) Blood Type Antibody Screen Active Medications Generic Name Dose Route Start Last Admin Trade Name Freq PRN Reason Stop Dose Admin Acetaminophen 650 mg 06/08/19 19:58 Tylenol - PO Q4H PRN PAIN Apixaban 5 mg 06/08/19 22:00 06/09/19 00:00 Eliquis - PO 5 mg BID BELL Administration Atorvastatin Calcium 10 mg 06/08/19 22:00 06/09/19 00:00 Lipitor - PO 10 mg HS [facility] Administration Aztreonam 1 gm 06/10/19 03:00 Azactam (Restricted To Id) - IVPB Q12H BELL Protocol Lactated Ringer's 1,000 mls @ 83 mls/hr 06/08/19 20:00 06/09/19 00:00 Lactated Ringers Solution IV 83 mls/hr ASDIR BELL Administration Linezolid 600 mg in 300 mls @ 300 mls/hr 06/10/19 03:00 Zyvox 600 Mg Premix Bag (Restricted To Id) - IV Q12H BELL Protocol Linezolid 600 mg in 300 mls @ 300 mls/hr 06/09/19 03:00 06/09/19 04:18 Zyvox 600 Mg Premix Bag (Restricted To Id) - IV 06/09/19 15:59 300 mls/hr Q12H BELL Administration Protocol Meropenem 500 mg/ Dextrose 100 mls @ 200 mls/hr 06/09/19 05:45 IVPB Q12H BELL Prednisone 10 mg 06/09/19 10:00 Deltasone - PO DAILY [facility] Ambulatory Orders Ascorbate Calcium [Vitamin C] 1,000 mg PO DAILY 08/30/15 Cholecalciferol (Vitamin D3) [Vitamin D3] 1,000 unit PO BID 08/30/15 Cyanocobalamin [Vitamin B12 -] 1,000 mcg PO DAILY 08/30/15 Oxycodone/APAP [Percocet - Must Order Individual Components] 1 each NR QID PRN 08/30/15 Simvastatin 10 mg PO HS 08/30/15 Guaifenesin [Mucinex] 600 mg PO DAILY 06/20/17 Metoprolol Succinate [Toprol XL -] 50 mg PO BID #60 tab.sr 06/25/17 Fish Oil/Borage/Flax/Om3,6,9 1 [[place] 3-6-9 1,200 mg Softgel] 1 cap PO DAILY Diltiazem [Cardizem -] 360 mg PO DAILY 08/29/17 Furosemide [Lasix] 40 mg PO DAILY PRN 08/29/17 Apixaban [Eliquis] 5 mg PO BID 04/22/19 Enalapril Maleate [Vasotec -] 2.5 mg PO DAILY 05/14/19 Gabapentin [Neurontin] 400 mg PO TID 05/14/19 Hydroxychloroquine Sulfate 200 mg PO DAILY 05/14/19 Ranitidine HCl [Zantac] 150 mg PO BID 05/14/19 Linezolid [Zyvox] 600 mg PO BID #14 tablet 05/19/19 predniSONE [Deltasone -] 10 mg PO DAILY #75 tablet 05/19/19 Current Medications Acetaminophen (Tylenol -) 650 mg PO Q4H PRN PRN Reason: PAIN LEVEL 6-10 Apixaban (Eliquis -) 5 mg PO BID [facility] Last Admin: 06/09/19 10:09 Dose: 5 mg Atorvastatin Calcium (Lipitor -) 10 mg PO HS [facility] Last Admin: 06/09/19 00:00 Dose: 10 mg Gabapentin (Neurontin -) 400 mg PO TID [facility] Last Admin: 06/09/19 13:25 Dose: 400 mg Lactated Ringer's (Lactated Ringers Solution) 1,000 mls @ 83 mls/hr IV ASDIR BELL Last Admin: 06/09/19 10:09 Dose: 83 mls/hr Aztreonam 2 gm/ Dextrose 100 mls @ 100 mls/hr IVPB Q8H-IV BELL; Protocol Last Admin: 06/09/19 18:33 Dose: 100 mls/hr Linezolid (Zyvox 600 Mg Premix Bag (Restricted To Id) -) 600 mg in 300 mls @ 300 mls/hr IVPB Q12H [facility]; Protocol Last Admin: 06/09/19 15:39 Dose: 300 mls/hr Ranitidine HCl (Zantac -) 150 mg PO BID BELL Last Admin: 06/09/19 13:25 Dose: 150 mg ASSESSMENT/PLAN: 74 F with PMH significant for recurrent RLE Cellulitis- MRSA, Pseudomona, Klebsiella infections, A-fib, HTN, HLD, DVT, COPD, LEON, RA, who presents today with a new cellulitis on her right upper thigh. Sepsis secondary to RLE cellulitis_leucocytosis improving, fever subsided, cont hydration at 83/hr right upper thigh- New location from prior RLE dermatitis/cellulits, pt with multiple allergies, and resistant bugs, ID on case, cont aztreonam,linezoloid, pain mx with tylenol RLE Cellulitis- MRSA, Pseudomona, Klebsiella infections-Pt documented with steroid responsive dermatitis on steroid taper, seen by derm, placed on AB A-fib-cont eliquis, rate controlled off meds, restart metoprolol HTN-hypotensive (pt apears to run low at baseline), holding enalapril, dilt on hold HLD-simvastatin on hold DVT- No DVT on imaging COPD-came in with resp acidosis, uses home oxygen, sating well on RA LEON-Unsure if pt is on CPAP at home, will consider bipap at night RA/Sjogren's -On hydoxychloroquine at home , unsure last use, will hold in sepsis and cellulitis DVT PPx- on eliquis Visit type - Emergency Visit Emergency Visit: Yes ED Registration Date: 06/08/19 Care time: The patient presented to the Emergency Department on the above date and was hospitalized for further evaluation of their emergent condition. - New Patient This patient is new to me today: Yes Date on this admission: 06/08/19 - Critical Care Critical Care patient: No - Discharge Referral Referred to [facility] No ATTENDING PHYSICIAN STATEMENT I saw and evaluated the patient. I reviewed the resident's note and discussed the case with the resident. I agree with the resident's findings and plan as documented. SUBJECTIVE: OBJECTIVE: ASSESSMENT AND PLAN:
[2019-06-09] MEDS: APIXABAN 5 MG TABLET PO SCH ×3 (10:09→22:30)
[2019-06-09] MEDS: LACTATED RINGERS SOLUTION 1,000 ML IV SCH ×2 (10:09)
[2019-06-09 11:20] LABS: HEMATOCRIT 37.7 % (32.4-45.2); HEMOGLOBIN 12.1 GM/dL (10.7-15.3); MCH 26.8 pg (25.7-33.7); MEAN CELL VOLUME 83.7 fl (80-96); MEAN PLT VOLUME 8.1 fl (7.5-11.1); RDW 17.7 % (11.6-15.6); WHITE BLOOD COUNT 11.5 K/mm3 (4.0-10.0)
[2019-06-09 11:38] LABS: PLATELET COUNT 111 K/MM3 (134-434)
--- NOTE | 2019-06-09 12:21 | PN ---
Progress Note (short form) - Note Progress Note: ID CONSULT DICTATED RECURRENT CELLULITIS LE- NOW INVOLVING THIGH- NEW FEVER/ LEUKOCYTOSIS R/O SEPSIS SECONDARY TO SKIN SOURCE HX MULTIPLE ANTIBIOTIC ALLERGIES HX MDRO AWAIT C/S EMPIRIC AZTREONAM/ LINEZOLID NO OBJECTION TO STEROIDS DERMATOLOGY OPINION CONTACT PRECAUTIONS
--- NOTE | 2019-06-09 12:58 | CONS ---
INFECTIOUS DISEASE CONSULTATION DATE OF CONSULTATION: DATE OF DICTATION: 06/09/2019 HISTORY: The patient is a 74-year-old female with a history of chronic venostasis dermatitis of the lower extremities and recurrent lower extremity cellulitis now re-admitted with cellulitis of the right thigh. The patient has had multiple hospital admissions for recurrent lower extremity cellulitis most recently from May 14 to May 19. At that time, she had erythema, warmth, and swelling of the distal right lower extremity below the knee with weepage. She completed a course of IV antibiotic therapy and was discharged home on oral linezolid. She now returns with a 1-day history of erythema, warmth, and swelling of the right thigh. This is new as her cellulitis in the past has primarily been limited to below the knee. She reports developing abrupt onset of erythema, warmth, and swelling of the right lateral thigh associated with fever and chills. She presented to the emergency room where she was noted to have fever to 101. She was empirically treated with linezolid and Azactam. A Doppler exam was performed and was negative for DVT. She denies any traumatic injury. No insect or animal bites or scratches. She has a history of multiple antibiotic allergies. Cultures in the past have been positive for mixed organisms including MRSA and pseudomonas. PAST MEDICAL HISTORY: Positive for chronic venostasis dermatitis of the lower extremities, recurrent bilateral lower extremity cellulitis, atrial fibrillation, hypertension, COPD, obstructive sleep apnea, morbid obesity, rheumatoid arthritis Sjgren's syndrome. PAST SURGICAL HISTORY: Status post right total knee replacement. ALLERGIES: PENICILLIN (swelling), CLINDAMYCIN (rash), DOXYCYCLINE (swelling), LEVAQUIN (rash), and VANCOMYCIN (pruritus). MEDICATIONS: At the present time include Tylenol, Eliquis, Lipitor, Neurontin, linezolid, Azactam, prednisone. SOCIAL HISTORY: She lives at home. She is essentially wheelchair bound. She is a former smoker. SYSTEMS REVIEW: Neurologic: No loss of consciousness, seizure activity, focal weakness. Cardiac: Negative chest pain or palpitations. Respiratory: Negative cough or sputum production. Gastrointestinal: Negative vomiting or diarrhea. Genitourinary: Negative for urinary tract infection. LABORATORY DATA: White count 22.9 with left shift, hematocrit 44.4, platelets 154, creatinine 0.4. Liver enzymes normal. Urinalysis 44 white cells. Cultures are pending. PHYSICAL EXAMINATION: General: She is awake and alert. She is supine on a stretcher in the emergency room. She is in no acute distress. Not acutely toxic appearing. Vital Signs: Maximum temperature 101, blood pressure 110/41, pulse 84 regular, respirations 20 per minute. HEENT: Sclerae anicteric. Heart: Sounds S1, S2. Lungs: Clear. Abdomen: Obese, soft, nontender. Extremities: Examination of the lower extremities, there is confluent erythema involving the right hip and thigh extending from the right lateral hip to the distal thigh. It extends medially and laterally to above the knee. There is warmth and tenderness. No drainage is noted. Bilateral lower extremity chronic venostasis dermatitis. The right lower extremity does not appear to be erythematous. There is no drainage noted. IMPRESSION: 1. Cellulitis of the right thigh. 2. Leukocytosis, rule out sepsis secondary to skin source. 3. History of multiple antibiotic allergies. 4. Morbid obesity. PLAN: Involvement of the right thigh is new as her previous recurrent episodes of cellulitis have involved the lower extremities below the knee. In addition, the patient is now febrile with a markedly elevated white blood cell count. Await cultures. Antibiotic options are limited in light of multiple antibiotic allergies. We will continue aztreonam and linezolid. No objection to steroids as the patient has had good response to steroids in the past. Would obtain Dermatology opinion. Contact precautions. EFRAIN MOREJON M.D. [id number]
--- NOTE | 2019-06-09 13:07 | CONSULT ---
<Marilu Davis - Last Filed: 06/09/19 15:33> - Consultation REQUESTING PROVIDER: CONSULT REQUEST: We have been asked to surgically evaluate this patient for le dermatitis. PCP:Moriah Bran MD HISTORY OF PRESENT ILLNESS: 74 y/o F w/ PMHx w/ recurrent RLE Cellulitis, A-fib, HTN, HLD, DVT, COPD, LEON, RA, now presents to ED with new cellulitis on her right upper thigh. Pt reports she began having pain and erythema in her right thigh a few days ago, reports subjective fevers this morning as well as chills/shivering. States she is able to ambulate despite the pain. Pt well known to Vascular (has seen Dr Gonzalez multiple times in the past) last seen the end of April when she was admitted from 05/14-05/19 for cellulitis. Pt was treated with aztreonam and zyvox and started on prednisone with improvement. Pt was discharged on an oral steroid taper and zyvox. Dermatology f/u was strongly recommended, pt has not seen Dermatology yet, states she has an appointment tomorrow with Dr Hernandez. Lance cp/sob, n/v/d, h/o prior dvt. PMHx: as above PSHx: R TKR Home Medications Medication Instructions Recorded Ascorbate Calcium [Vitamin C] 1,000 mg PO DAILY 08/30/15 Cholecalciferol (Vitamin D3) 1,000 unit PO BID 08/30/15 [Vitamin D3] Cyanocobalamin [Vitamin B12 -] 1,000 mcg PO DAILY 08/30/15 Oxycodone/APAP [Percocet - Must 1 each NR QID PRN 08/30/15 Order Individual Components] Simvastatin 10 mg PO HS 08/30/15 Guaifenesin [Mucinex] 600 mg PO DAILY 06/20/17 Metoprolol Succinate [Toprol XL -] 50 mg PO BID #60 tab.sr 06/25/17 Fish Oil/Borage/Flax/Om3,6,9 1 1 cap PO DAILY 07/12/17 [[place] 3-6-9 1,200 mg Softgel] Diltiazem [Cardizem -] 360 mg PO DAILY 08/29/17 Furosemide [Lasix] 40 mg PO DAILY PRN 08/29/17 Apixaban [Eliquis] 5 mg PO BID 04/22/19 Enalapril Maleate [Vasotec -] 2.5 mg PO DAILY 05/14/19 Gabapentin [Neurontin] 400 mg PO TID 05/14/19 Hydroxychloroquine Sulfate 200 mg PO DAILY 05/14/19 Ranitidine HCl [Zantac] 150 mg PO BID 05/14/19 Linezolid [Zyvox] 600 mg PO BID #14 tablet 05/19/19 predniSONE [Deltasone -] 10 mg PO DAILY #75 tablet 05/19/19 Allergies Allergy/AdvReac Type Severity Reaction Status Date / Time Penicillins Allergy Severe Swelling Verified 06/08/19 14:02 clindamycin Allergy Mild Rash Verified 06/08/19 14:02 doxycycline Allergy Swelling Verified 06/08/19 14:02 levofloxacin [From Levaquin] Allergy Rash Verified 06/08/19 14:02 vancomycin AdvReac Mild Itching Verified 06/08/19 14:02 adhesive tape AdvReac "RIPS MY Verified 06/08/19 14:02 SKIN" REVIEW OF SYSTEMS: CONSTITUTIONAL: + subjective fever, chills CARDIOVASCULAR: Absent: chest pain RESPIRATORY: Absent: cough GASTROINTESTINAL: Absent: abdominal pain PHYSICAL EXAM: GENERAL: Awake, alert, and fully oriented, in no acute distress. HEAD: Normal with no signs of trauma. LUNGS: Unlabored on RA. No accessory muscle use. LOWER EXTREMITIES: RLE with dressing in place, dressing removed no erythema or increased warmth noted. RLE with scaling skin noted, no drainage, no open wounds. RLE redressed with kerlix and evette wrap. R thigh with erythema noted laterally (approx [id number]), + induration (per pt this is chronic). No edema noted. Vasc: palpable dp b/l, no PT appreciated due to edema. Vital Signs Temperature 98.4 F 06/09/19 09:00 Pulse Rate 84 06/09/19 09:00 Respiratory Rate 20 06/09/19 09:00 Blood Pressure 110/41 L 06/09/19 09:00 O2 Sat by Pulse Oximetry (%) 99 06/09/19 09:00 Lab Results WBC 11.5 K/mm3 (4.0-10.0) H 06/09/19 10:58 RBC 4.50 M/mm3 (3.60-5.2) 06/09/19 10:58 Hgb 12.1 GM/dL (10.7-15.3) 06/09/19 10:58 Hct 37.7 % (32.4-45.2) D 06/09/19 10:58 MCV 83.7 fl (80-96) 06/09/19 10:58 MCHC 32.0 g/dl (32.0-36.0) 06/09/19 10:58 RDW 17.7 % (11.6-15.6) H 06/09/19 10:58 Plt Count 111 K/MM3 (134-434) L D 06/09/19 10:58 Sodium 142 mmol/L (136-145) 06/09/19 07:43 Potassium 4.3 mmol/L (3.5-5.1) 06/09/19 07:43 Chloride 104 mmol/L (98-107) 06/09/19 07:43 Carbon Dioxide 32 mmol/L (21-32) 06/09/19 07:43 Anion Gap 5 MMOL/L (8-16) L 06/09/19 07:43 BUN 16.7 mg/dL (7-18) 06/09/19 07:43 Creatinine 0.4 mg/dL (0.55-1.3) L 06/09/19 07:43 Random Glucose 86 mg/dL (74-106) 06/09/19 07:43 Calcium 8.3 mg/dL (8.5-10.1) L 06/09/19 07:43 Blood Type Cancelled 06/08/19 15:32 Antibody Screen Cancelled 06/08/19 15:32 INR 1.33 (0.83-1.09) H 06/08/19 15:32 A/P: 74 y/o F w/ PMHx w/ recurrent RLE Cellulitis, A-fib, HTN, HLD, DVT, COPD, LEON, RA, now presents to ED with new cellulitis on her right upper thigh. No DVT RLE (06/08) Bp with fever 101.5 in ER, hypotensive to systolic 90s, no tachycardia R thigh with cellulitis, R calf with chronic dermatitis/skin changes -Wash leg with NS, apply emollient to skin, cover with kerlix/evette wrap -Elevate le while at rest -Abx per primary team -Strongly recommend f/u with Dermatology upon discharge d/w attending Dr Gonzalez <Tejas Gonzalez - Last Filed: 06/11/19 08:29> - Consultation REQUESTING PROVIDER: CONSULT REQUEST: We have been asked to surgically evaluate this patient for ( specify). PCP:Moriah Bran MD HISTORY OF PRESENT ILLNESS: PMHx: PSHx: Home Medications Medication Instructions Recorded Ascorbate Calcium [Vitamin C] 1,000 mg PO DAILY 08/30/15 Cholecalciferol (Vitamin D3) 1,000 unit PO BID 08/30/15 [Vitamin D3] Cyanocobalamin [Vitamin B12 -] 1,000 mcg PO DAILY 08/30/15 Oxycodone/APAP [Percocet - Must 1 each NR QID PRN 08/30/15 Order Individual Components] Simvastatin 10 mg PO HS 08/30/15 Guaifenesin [Mucinex] 600 mg PO DAILY 06/20/17 Metoprolol Succinate [Toprol XL -] 50 mg PO BID #60 tab.sr 06/25/17 Fish Oil/Borage/Flax/Om3,6,9 1 1 cap PO DAILY 07/12/17 [[place] 3-6-9 1,200 mg Softgel] Diltiazem [Cardizem -] 360 mg PO DAILY 08/29/17 Furosemide [Lasix] 40 mg PO DAILY PRN 08/29/17 Apixaban [Eliquis] 5 mg PO BID 04/22/19 Enalapril Maleate [Vasotec -] 2.5 mg PO DAILY 05/14/19 Gabapentin [Neurontin] 400 mg PO TID 05/14/19 Hydroxychloroquine Sulfate 200 mg PO DAILY 05/14/19 Ranitidine HCl [Zantac] 150 mg PO BID 05/14/19 Linezolid [Zyvox] 600 mg PO BID #14 tablet 05/19/19 predniSONE [Deltasone -] 10 mg PO DAILY #75 tablet 05/19/19 Allergies Allergy/AdvReac Type Severity Reaction Status Date / Time Penicillins Allergy Severe Swelling Verified 06/08/19 14:02 clindamycin Allergy Mild Rash Verified 06/08/19 14:02 doxycycline Allergy Swelling Verified 06/08/19 14:02 levofloxacin [From Levaquin] Allergy Rash Verified 06/08/19 14:02 vancomycin AdvReac Mild Itching Verified 06/08/19 14:02 adhesive tape AdvReac "RIPS MY Verified 06/08/19 14:02 SKIN" REVIEW OF SYSTEMS: CONSTITUTIONAL: Absent: fever, chills, diaphoresis, generalized weakness, malaise, loss of appetite, weight change CARDIOVASCULAR: Absent: chest pain, syncope, palpitations, irregular heart rate, lightheadedness , peripheral edema RESPIRATORY: Absent: cough, shortness of breath, dyspnea with exertion, wheezing, stridor, hemoptysis GASTROINTESTINAL: Absent: abdominal pain, abdominal distension, nausea, vomiting, diarrhea, constipation, melena, hematochezia GENITOURINARY: Absent: dysuria, frequency, urgency, hesitancy, hematuria, flank pain, genital pain MUSCULOSKELETAL: Absent: myalgia, arthralgia, joint swelling, back pain, neck pain SKIN: Absent: rash, itching, pallor HEMATOLOGIC/IMMUNOLOGIC: Absent: easy bleeding, easy bruising, lymphadenopathy NEUROLOGIC: Absent: headache, focal weakness, paresthesias, dizziness, unsteady gait, seizure, mental status changes, bladder or bowel incontinence PSYCHIATRIC: Absent: anxiety, depression, suicidal or homicidal ideation, hallucinations. PHYSICAL EXAM: GENERAL: Awake, alert, and fully oriented, in no acute distress. HEAD: Normal with no signs of trauma. EYES: PERRL, sclera anicteric, conjunctiva clear. NECK: Normal ROM, supple without lymphadenopathy, JVD, or masses. LUNGS: Clear to auscultation bilat anteriorly. No wheezes, and no crackles. No accessory muscle use. HEART: Regular rate and rhythm. No murmurs ABDOMEN: Soft, nontender, not distended, normoactive bowel sounds, no guarding, no rebound, no masses. No organomegaly. MUSCULOSKELETAL: Normal ROM at all joints. No bony deformities or tenderness. No CVA tenderness. UPPER EXTREMITIES: 2+ pulses, warm, well-perfused. No cyanosis. Cap refill <2 seconds. No peripheral edema. LOWER EXTREMITIES: 2+ pulses, warm, well-perfused. No calf tenderness. No peripheral edema. NEUROLOGICAL: Normal speech, gait not observed. PSYCH: Cooperative. Good eye contact. Appropriate mood and affect. SKIN: Warm, dry, normal turgor, no rashes or lesions noted. Vital Signs Temperature 97.5 F L 06/11/19 06:00 Pulse Rate 90 06/11/19 06:00 Respiratory Rate 20 06/11/19 06:00 Blood Pressure 137/78 06/11/19 06:00 O2 Sat by Pulse Oximetry (%) 96 06/10/19 20:11 Lab Results WBC 5.3 K/mm3 (4.0-10.0) 06/11/19 06:20 RBC 4.66 M/mm3 (3.60-5.2) 06/11/19 06:20 Hgb 12.7 GM/dL (10.7-15.3) 06/11/19 06:20 Hct 39.7 % (32.4-45.2) D 06/11/19 06:20 MCV 85.0 fl (80-96) 06/11/19 06:20 MCHC 32.1 g/dl (32.0-36.0) 06/11/19 06:20 RDW 18.2 % (11.6-15.6) H 06/11/19 06:20 Plt Count 125 K/MM3 (134-434) L D 06/11/19 06:20 Sodium 143 mmol/L (136-145) 06/10/19 06:35 Potassium 4.2 mmol/L (3.5-5.1) 06/10/19 06:35 Chloride 105 mmol/L (98-107) 06/10/19 06:35 Carbon Dioxide 37 mmol/L (21-32) H 06/10/19 06:35 Anion Gap 1 MMOL/L (8-16) L 06/10/19 06:35 BUN 11.6 mg/dL (7-18) 06/10/19 06:35 Creatinine 0.4 mg/dL (0.55-1.3) L 06/10/19 06:35 Random Glucose 84 mg/dL (74-106) 06/10/19 06:35 Calcium 7.8 mg/dL (8.5-10.1) L 06/10/19 06:35 Blood Type Cancelled 06/08/19 15:32 Antibody Screen Cancelled 06/08/19 15:32 INR 1.33 (0.83-1.09) H 06/08/19 15:32 History reviewed and patient examined. The right calf has healed from recent episode of dermatitis but she has developed cellulitis in the thigh and hip area. Currently on broad spectrum antibiotics. No open wounds present. Continue IV antibiotics.
[2019-06-09] MEDS: GABAPENTIN 400 MG CAPSULE (FP) PO SCH ×2 (13:25→22:30)
[2019-06-09] MEDS: RANITIDINE HCL 150 MG TABLET (FP) PO SCH ×2 (13:25→22:30)
--- NOTE | 2019-06-09 14:43 | EKG ---
Test Reason : Blood Pressure : / mmHG Vent. Rate : 098 BPM Atrial Rate : 083 BPM P-R Int : 000 ms QRS Dur : 086 ms QT Int : 336 ms P-R-T Axes : 000 046 024 degrees QTc Int : 428 ms ATRIAL FIBRILLATION ABNORMAL ECG WHEN COMPARED WITH ECG OF 14-MAY-2019 17:15, NO SIGNIFICANT CHANGE WAS FOUND Confirmed by Jose Roberto Tellez MD ([id number]) on 06/09/2019 2:43:17 PM Referred By: Confirmed By:Jose Roberto Tellez MD
[2019-06-09] MEDS: LINEZOLID 600 MG PREMIX BAG 600 MG/300 ML BAG IVPB SCH (15:39)
--- NOTE | 2019-06-09 15:41 | PN ---
Teaching Attending Note Name of Resident: Heidi Adam ATTENDING PHYSICIAN STATEMENT I saw and evaluated the patient. I reviewed the resident's note and discussed the case with the resident. I agree with the resident's findings and plan as documented with exceptions below. SUBJECTIVE: Patient seen and examined. right thigh pain, right leg symptoms better, no fevers or chills. OBJECTIVE: Vital Signs Period Temp Pulse Resp BP Sys/William Pulse Ox Last 24 Hr 98 F-98.6 F 74-98 16-20 101-110/41-72 97-99 Intake & Output 06/06/19 06/07/19 06/08/19 06/09/19 23:59 23:59 23:59 23:59 Weight 258 lb General: sitting in bed in no acute distress Chest: Decreased air entry all over Abdomen:soft, obese, NT Extremities: right lateral thigh erythema with streaks, tenderness warmth along right lateral/posterior thigh, RLE with chronic dermatitis/skin changes Home Medications Medication Instructions Recorded Ascorbate Calcium [Vitamin C] 1,000 mg PO DAILY 08/30/15 Cholecalciferol (Vitamin D3) 1,000 unit PO BID 08/30/15 [Vitamin D3] Cyanocobalamin [Vitamin B12 -] 1,000 mcg PO DAILY 08/30/15 Oxycodone/APAP [Percocet - Must 1 each NR QID PRN 08/30/15 Order Individual Components] Simvastatin 10 mg PO HS 08/30/15 Guaifenesin [Mucinex] 600 mg PO DAILY 06/20/17 Metoprolol Succinate [Toprol XL -] 50 mg PO BID #60 tab.sr 06/25/17 Fish Oil/Borage/Flax/Om3,6,9 1 1 cap PO DAILY 07/12/17 [[place] 3-6-9 1,200 mg Softgel] Diltiazem [Cardizem -] 360 mg PO DAILY 08/29/17 Furosemide [Lasix] 40 mg PO DAILY PRN 08/29/17 Apixaban [Eliquis] 5 mg PO BID 04/22/19 Enalapril Maleate [Vasotec -] 2.5 mg PO DAILY 05/14/19 Gabapentin [Neurontin] 400 mg PO TID 05/14/19 Hydroxychloroquine Sulfate 200 mg PO DAILY 05/14/19 Ranitidine HCl [Zantac] 150 mg PO BID 05/14/19 Linezolid [Zyvox] 600 mg PO BID #14 tablet 05/19/19 predniSONE [Deltasone -] 10 mg PO DAILY #75 tablet 05/19/19 Active Medications Acetaminophen (Tylenol -) 650 mg PO Q4H PRN PRN Reason: PAIN LEVEL 6-10 Apixaban (Eliquis -) 5 mg PO BID REPLACED BY [facility] Last Admin: 06/09/19 10:09 Dose: 5 mg Atorvastatin Calcium (Lipitor -) 10 mg PO HS [facility] Last Admin: 06/09/19 00:00 Dose: 10 mg Gabapentin (Neurontin -) 400 mg PO TID [facility] Last Admin: 06/09/19 13:25 Dose: 400 mg Lactated Ringer's (Lactated Ringers Solution) 1,000 mls @ 83 mls/hr IV ASDIR [facility] Last Admin: 06/09/19 10:09 Dose: 83 mls/hr Aztreonam 2 gm/ Dextrose 100 mls @ 100 mls/hr IVPB Q8H-IV [facility]; Protocol Linezolid (Zyvox 600 Mg Premix Bag (Restricted To Id) -) 600 mg in 300 mls @ 300 mls/hr IVPB Q12H [facility]; Protocol Last Admin: 06/09/19 15:39 Dose: 300 mls/hr Ranitidine HCl (Zantac -) 150 mg PO BID REPLACED BY [facility] Last Admin: 06/09/19 13:25 Dose: 150 mg Laboratory Results - last 24 hr 06/08/19 06/08/19 06/08/19 15:32 15:32 15:32 WBC 22.9 H Corrected WBC (auto) RBC 5.29 H Hgb 14.2 Hct 44.4 MCV 84.0 MCH 26.9 MCHC 32.0 RDW 17.6 H Plt Count 154 MPV 9.0 D Absolute Neuts (auto) 21.2 H Neutrophils % 92.8 H D Neutrophils % (Manual) 89.0 H Band Neutrophils % 3.0 Lymphocytes % 2.4 L D Lymphocytes % (Manual) 7.0 L Monocytes % 4.4 Monocytes % (Manual) 1 L Eosinophils % 0.1 D Eosinophils % (Manual) 0.0 Basophils % 0.3 Basophils % (Manual) 0.0 Nucleated RBC % 0 Manual Slide Review Platelet Comment PTT (Actin FS) Sodium 135 L Potassium 5.1 Chloride 98 Carbon Dioxide 34 H Anion Gap 4 L BUN 27.0 H Creatinine 0.6 Est GFR (CKD-EPI)AfAm 105.54 Est GFR (CKD-EPI)NonAf 91.06 Random Glucose 89 Lactic Acid Calcium 8.9 Magnesium Total Bilirubin 1.0 AST 19 ALT 16 Alkaline Phosphatase 57 Creatine Kinase 40 CK-MB (CK-2) Troponin I < 0.02 Total Protein 6.0 L Albumin 3.4 Urine Color Urine Appearance Urine pH Ur Specific [place] Urine Protein Urine Glucose (UA) Urine Ketones Urine Blood Urine Nitrite Urine Bilirubin Urine Urobilinogen Ur Leukocyte Esterase Urine WBC (Auto) Urine RBC (Auto) Urine Casts (Auto) U Pathogenic Cast Auto U Epithel Cells (Auto) Urine Bacteria (Auto) 06/08/19 06/08/19 06/08/19 15:32 15:32 15:32 WBC Corrected WBC (auto) RBC Hgb Hct MCV MCH MCHC RDW Plt Count MPV Absolute Neuts (auto) Neutrophils % Neutrophils % (Manual) Band Neutrophils % Lymphocytes % Lymphocytes % (Manual) Monocytes % Monocytes % (Manual) Eosinophils % Eosinophils % (Manual) Basophils % Basophils % (Manual) Nucleated RBC % Manual Slide Review Platelet Comment PTT (Actin FS) 32.0 Sodium Potassium Chloride Carbon Dioxide Anion Gap BUN Creatinine Est GFR (CKD-EPI)AfAm Est GFR (CKD-EPI)NonAf Random Glucose Lactic Acid 2.0 Calcium Magnesium Total Bilirubin AST ALT Alkaline Phosphatase Creatine Kinase CK-MB (CK-2) Cancelled Troponin I Total Protein Albumin Urine Color Urine Appearance Urine pH Ur Specific [place] Urine Protein Urine Glucose (UA) Urine Ketones Urine Blood Urine Nitrite Urine Bilirubin Urine Urobilinogen Ur Leukocyte Esterase Urine WBC (Auto) Urine RBC (Auto) Urine Casts (Auto) U Pathogenic Cast Auto U Epithel Cells (Auto) Urine Bacteria (Auto) 06/08/19 06/09/19 06/09/19 17:14 07:43 07:43 WBC Cancelled Corrected WBC (auto) Cancelled RBC Cancelled Hgb Cancelled Hct Cancelled MCV Cancelled MCH Cancelled MCHC Cancelled RDW Cancelled Plt Count Cancelled MPV Cancelled Absolute Neuts (auto) Neutrophils % Neutrophils % (Manual) Band Neutrophils % Lymphocytes % Lymphocytes % (Manual) Monocytes % Monocytes % (Manual) Eosinophils % Eosinophils % (Manual) Basophils % Basophils % (Manual) Nucleated RBC % Manual Slide Review Cancelled Platelet Comment Cancelled PTT (Actin FS) Sodium 142 Potassium 4.3 Chloride 104 Carbon Dioxide 32 Anion Gap 5 L BUN 16.7 Creatinine 0.4 L Est GFR (CKD-EPI)AfAm 120.60 Est GFR (CKD-EPI)NonAf 104.06 Random Glucose 86 Lactic Acid Calcium 8.3 L Magnesium 2.0 Total Bilirubin AST ALT Alkaline Phosphatase Creatine Kinase CK-MB (CK-2) Troponin I Total Protein Albumin Urine Color Dk yellow Urine Appearance Clear Urine pH 5.0 Ur Specific [place] 1.034 Urine Protein Trace Urine Glucose (UA) Negative Urine Ketones Trace H Urine Blood Negative Urine Nitrite Positive H Urine Bilirubin 1+ H Urine Urobilinogen 1.0 Ur Leukocyte Esterase 1+ H Urine WBC (Auto) 44 Urine RBC (Auto) 3 Urine Casts (Auto) 137 U Pathogenic Cast Auto None U Epithel Cells (Auto) 1.7 Urine Bacteria (Auto) 522.2 06/09/19 10:58 WBC 11.5 H Corrected WBC (auto) RBC 4.50 Hgb 12.1 Hct 37.7 D MCV 83.7 MCH 26.8 MCHC 32.0 RDW 17.7 H Plt Count 111 L D MPV 8.1 Absolute Neuts (auto) Neutrophils % Neutrophils % (Manual) Band Neutrophils % Lymphocytes % Lymphocytes % (Manual) Monocytes % Monocytes % (Manual) Eosinophils % Eosinophils % (Manual) Basophils % Basophils % (Manual) Nucleated RBC % Manual Slide Review Platelet Comment PTT (Actin FS) Sodium Potassium Chloride Carbon Dioxide Anion Gap BUN Creatinine Est GFR (CKD-EPI)AfAm Est GFR (CKD-EPI)NonAf Random Glucose Lactic Acid Calcium Magnesium Total Bilirubin AST ALT Alkaline Phosphatase Creatine Kinase CK-MB (CK-2) Troponin I Total Protein Albumin Urine Color Urine Appearance Urine pH Ur Specific [place] Urine Protein Urine Glucose (UA) Urine Ketones Urine Blood Urine Nitrite Urine Bilirubin Urine Urobilinogen Ur Leukocyte Esterase Urine WBC (Auto) Urine RBC (Auto) Urine Casts (Auto) U Pathogenic Cast Auto U Epithel Cells (Auto) Urine Bacteria (Auto) ASSESSMENT AND PLAN: 74 yof with PMHx of Afib on eliquis, OA, RA, Sjogren's, COPDo n 4L home oxygen, venous stasis dermatitis, VRE, pseudomonas, recurrent RLE cellulitis, admitted with sepsis -Sepsis due to RLE cellulitis -Chronic right leg severe dermatitis -?lower uncomplicated UTi -RA/Sjogrens's -OA -COPD on 4L home oxygen -Afib on eliquis Plan: ID input noted. Aztreonam/linezolid. Follow up cultures. Vascular surgery input noted, wound care. Last day of prednisone today. Dermatology consult. Hold anti-hypertensives/lasix. Gentle hydration DVTPPX eliquus Dispo pending clinical improvement. Plan discussed with patient in detail, all questions answered.
--- NOTE | 2019-06-09 16:10 | PN ---
Teaching Attending Note Name of Resident: Heidi Adam ATTENDING PHYSICIAN STATEMENT I saw and evaluated the patient. I reviewed the resident's note and discussed the case with the resident. I agree with the resident's findings and plan as documented with exceptions below. SUBJECTIVE: Patient seen and examined, right leg pain, reports lower leg symptoms improved since last admission, now with progressive right thigh symptoms associated with pain. No dyspnea or new concerns otherwise. OBJECTIVE: Vital Signs Period Temp Pulse Resp BP Sys/William Pulse Ox Last 24 Hr 98 F-98.6 F 74-98 16-20 101-110/41-72 97-99 Intake & Output 06/06/19 06/07/19 06/08/19 06/09/19 23:59 23:59 23:59 23:59 Weight 258 lb General: sitting in bed in no acute distress Chest: decreased effort, no rales or wheezing ASSESSMENT AND PLAN:
[2019-06-09] MEDS: AZTREONAM 2 GM in DEXTROSE 5%-WATER 100 ML IVPB SCH (18:33)
[2019-06-09] MEDS ORDERED: ATORVASTATIN CA 10 MG TABLET (FP) ONE (22:18)
[2019-06-09] MEDS ORDERED: RANITIDINE HCL 150 MG TABLET (FP) ONE (22:18)
[2019-06-09] MEDS ORDERED: APIXABAN 5 MG TABLET PO ONE (22:18)
[2019-06-09] MEDS ORDERED: GABAPENTIN 100 MG CAPSULE (FP) ONE (22:19)
[2019-06-09] MEDS: ATORVASTATIN CA 10 MG TABLET (FP) PO SCH ×2 (22:30)
[2019-06-10] MEDS: LACTATED RINGERS SOLUTION 1,000 ML IV SCH ×2 (02:56→08:17)
[2019-06-10] MEDS: AZTREONAM 2 GM in DEXTROSE 5%-WATER 100 ML IVPB SCH ×4 (02:58→18:28)
[2019-06-10] MEDS ORDERED: AZTREONAM 1 GM VIAL (RESTRICTED TO ID) IVPB SCH (03:00)
[2019-06-10] MEDS ORDERED: LINEZOLID 600 MG PREMIX BAG 600 MG/300 ML BAG IV SCH (03:00)
[2019-06-10] MEDS: LINEZOLID 600 MG PREMIX BAG 600 MG/300 ML BAG IVPB SCH ×2 (03:44→17:16)
[2019-06-10] MEDS ORDERED: PT OWN MED DRAWER 7, Y5N ONE ×3 (03:49→18:10)
[2019-06-10] MEDS: GABAPENTIN 400 MG CAPSULE (FP) PO SCH ×3 (06:00→21:33)
[2019-06-10 07:22] LABS: EOS % 1.8 % (0-4.5); HEMATOCRIT 34.1 % (32.4-45.2); HEMOGLOBIN 11.1 GM/dL (10.7-15.3); LYMPH % 13.4 % (8-40); MCH 27.4 pg (25.7-33.7); MCHC 32.7 g/dl (32.0-36.0); MEAN CELL VOLUME 83.9 fl (80-96); NEUT % 78.8 % (42.8-82.8); PLATELET COUNT 101 K/MM3 (134-434); RBC 4.06 M/mm3 (3.60-5.2); RDW 17.9 % (11.6-15.6); WHITE BLOOD COUNT 6.9 K/mm3 (4.0-10.0)
[2019-06-10 07:46] LABS: ALBUMIN 2.2 g/dl (3.4-5.0); BILIRUBIN,TOTAL 0.5 mg/dL (0.2-1); BLOOD UREA NITROGEN 11.6 mg/dL (7-18); CALCIUM 7.8 mg/dL (8.5-10.1); CREATININE 0.4 mg/dL (0.55-1.3); MAGNESIUM 1.8 mg/dL (1.8-2.4); PHOSPHOROUS 2.9 mg/dL (2.5-4.9); POTASSIUM 4.2 mmol/L (3.5-5.1); TOT PROT 4.6 g/dl (6.4-8.2)
--- NOTE | 2019-06-10 07:53 | PN ---
Physical Exam: SUBJECTIVE: Patient seen and examined.No chest pain, on NC- no worsening SOB. No fevers or chills overnight. OBJECTIVE: Vital Signs Period Temp Pulse Resp BP Sys/William Pulse Ox Last 24 Hr 98.4 F-99.0 F 68-98 16-20 101-135/41-75 95-99 Vital Signs Temp 97.9 F 06/10/19 10:00 Pulse 104 H 06/10/19 10:00 Resp 18 06/10/19 10:00 BP 106/58 L 06/10/19 10:00 Pulse Ox 95 06/10/19 10:00 Intake & Output 06/09/19 06/10/19 06/10/19 23:59 11:59 23:59 Intake Total 1000 Balance 1000 Weight 117.027 kg Intake: IV 800 Lactated Ringers Solution 800 1,000 ml @ 83 mls/hr IV ASDIR BELL Rx#:[id number] Oral 200 Other: Voiding Method Toilet # Unmeasured Voids Void 2 Height 1.7 m Body Mass Index (BMI) 40.4 Weight Measurement Method Estimated by Patient GENERAL: The patient is Morbidly obese, awake, alert, and fully oriented, in no acute distress. LUNGS: Breath sounds equal, clear to auscultation bilaterally HEART: irreg, S1, S2 , systolic murmur 2/6 RSB ABDOMEN: Soft, nontender, Obese, normoactive bowel sounds EXTREMITIES: R hip cellulitis with improving redness, still warm and tender to palpation with some scaling. R funes with dry scaly excoriations. Chronic venous stasis. NEUROLOGICAL: Cranial nerves II through XII grossly intact. Normal speech, gait not observed. PSYCH: Normal mood, normal affect. SKIN: Warm, dry, normal turgor, no rashes or lesions noted Laboratory Results - last 24 hr 06/09/19 06/09/19 06/09/19 07:43 07:43 10:58 WBC Cancelled 11.5 H Corrected WBC (auto) Cancelled RBC Cancelled 4.50 Hgb Cancelled 12.1 Hct Cancelled 37.7 D MCV Cancelled 83.7 MCH Cancelled 26.8 MCHC Cancelled 32.0 RDW Cancelled 17.7 H Plt Count Cancelled 111 L D MPV Cancelled 8.1 Absolute Neuts (auto) Neutrophils % Lymphocytes % Monocytes % Eosinophils % Basophils % Nucleated RBC % Manual Slide Review Cancelled Platelet Comment Cancelled Sodium 142 Potassium 4.3 Chloride 104 Carbon Dioxide 32 Anion Gap 5 L BUN 16.7 Creatinine 0.4 L Est GFR (CKD-EPI)AfAm 120.60 Est GFR (CKD-EPI)NonAf 104.06 Random Glucose 86 Calcium 8.3 L Phosphorus Magnesium 2.0 Total Bilirubin AST ALT Alkaline Phosphatase Total Protein Albumin 06/10/19 06/10/19 06:35 06:35 WBC 6.9 Corrected WBC (auto) RBC 4.06 Hgb 11.1 Hct 34.1 MCV 83.9 MCH 27.4 MCHC 32.7 RDW 17.9 H Plt Count 101 L MPV 8.0 Absolute Neuts (auto) 5.4 Neutrophils % 78.8 Lymphocytes % 13.4 D Monocytes % 6.0 Eosinophils % 1.8 D Basophils % 0.0 Nucleated RBC % 0 Manual Slide Review Platelet Comment Sodium 143 Potassium 4.2 Chloride 105 Carbon Dioxide 37 H Anion Gap 1 L BUN 11.6 Creatinine 0.4 L Est GFR (CKD-EPI)AfAm 120.60 Est GFR (CKD-EPI)NonAf 104.06 Random Glucose 84 Calcium 7.8 L Phosphorus 2.9 Magnesium 1.8 Total Bilirubin 0.5 AST 6 L ALT 15 Alkaline Phosphatase 48 Total Protein 4.6 L Albumin 2.2 L Active Medications Generic Name Dose Route Start Last Admin Trade Name Freq PRN Reason Stop Dose Admin Acetaminophen 650 mg 06/09/19 11:00 Tylenol - PO Q4H PRN PAIN LEVEL 6-10 Apixaban 5 mg 06/08/19 22:00 06/09/19 22:30 Eliquis - PO 5 mg BID [facility] Administration Atorvastatin Calcium 10 mg 06/08/19 22:00 06/09/19 22:30 Lipitor - PO 10 mg HS BE[facility] Administration Gabapentin 400 mg 06/09/19 14:00 06/10/19 06:00 Neurontin - PO 400 mg TID [facility] Administration Lactated Ringer's 1,000 mls @ 83 mls/hr 06/08/19 20:00 06/10/19 02:56 Lactated Ringers Solution IV 83 mls/hr [facility] Administration Aztreonam 2 gm/ Dextrose 100 mls @ 100 mls/hr 06/09/19 18:00 06/10/19 02:58 IVPB 100 mls/hr Q8H-IV [facility] Administration Protocol Linezolid 600 mg in 300 mls @ 300 mls/hr 06/09/19 16:00 06/10/19 03:44 Zyvox 600 Mg Premix Bag (Restricted To Id) - IVPB 300 mls/hr Q12H [facility] Administration Protocol Metoprolol Succinate 50 mg 06/10/19 10:00 Toprol Xl - PO BID BELL Ranitidine HCl 150 mg 06/09/19 11:45 06/09/19 22:30 Zantac - PO 150 mg BID BE[facility] Administration Ambulatory Orders Ascorbate Calcium [Vitamin C] 1,000 mg PO DAILY 08/30/15 Cholecalciferol (Vitamin D3) [Vitamin D3] 1,000 unit PO BID 08/30/15 Cyanocobalamin [Vitamin B12 -] 1,000 mcg PO DAILY 08/30/15 Oxycodone/APAP [Percocet - Must Order Individual Components] 1 each NR QID PRN 08/30/15 Simvastatin 10 mg PO HS 08/30/15 Guaifenesin [Mucinex] 600 mg PO DAILY 06/20/17 Metoprolol Succinate [Toprol XL -] 50 mg PO BID #60 tab.sr 06/25/17 Fish Oil/Borage/Flax/Om3,6,9 1 [[place] 3-6-9 1,200 mg Softgel] 1 cap PO DAILY Diltiazem [Cardizem -] 360 mg PO DAILY 08/29/17 Furosemide [Lasix] 40 mg PO DAILY PRN 08/29/17 Apixaban [Eliquis] 5 mg PO BID 04/22/19 Enalapril Maleate [Vasotec -] 2.5 mg PO DAILY 05/14/19 Gabapentin [Neurontin] 400 mg PO TID 05/14/19 Hydroxychloroquine Sulfate 200 mg PO DAILY 05/14/19 Ranitidine HCl [Zantac] 150 mg PO BID 05/14/19 Linezolid [Zyvox] 600 mg PO BID #14 tablet 05/19/19 predniSONE [Deltasone -] 10 mg PO DAILY #75 tablet 05/19/19 Current Medications Acetaminophen (Tylenol -) 650 mg PO Q4H PRN PRN Reason: PAIN LEVEL 6-10 Last Admin: 06/10/19 08:37 Dose: 650 mg Apixaban (Eliquis -) 5 mg PO BID [facility] Last Admin: 06/10/19 09:35 Dose: 5 mg Atorvastatin Calcium (Lipitor -) 10 mg PO HS [facility] Last Admin: 06/09/19 22:30 Dose: 10 mg Gabapentin (Neurontin -) 400 mg PO TID [facility] Last Admin: 06/10/19 06:00 Dose: 400 mg Aztreonam 2 gm/ Dextrose 100 mls @ 100 mls/hr IVPB Q8H-IV [facility]; Protocol Last Admin: 06/10/19 09:35 Dose: Not Given Linezolid (Zyvox 600 Mg Premix Bag (Restricted To Id) -) 600 mg in 300 mls @ 300 mls/hr IVPB Q12H [facility]; Protocol Last Admin: 06/10/19 03:44 Dose: 300 mls/hr Metoprolol Succinate (Toprol Xl -) 50 mg PO BID [facility] Last Admin: 06/10/19 09:35 Dose: 50 mg Oxycodone HCl (Roxicodone -) 5 mg PO Q6H PRN PRN Reason: PAIN LEVEL 7 - 10 Ranitidine HCl (Zantac -) 150 mg PO BID [facility] Last Admin: 06/10/19 09:35 Dose: 150 mg ASSESSMENT/PLAN: 74 F with PMH significant for recurrent RLE Cellulitis- MRSA, Pseudomona, Klebsiella infections, A-fib, HTN, HLD, DVT, COPD, LEON, RA, who presents today with a new cellulitis on her right upper thigh. Sepsis secondary to RLE cellulitis_leucocytosis improving, fever subsided, cont hydration at 83/hr right upper thigh dermatitis - New location from prior RLE dermatitis/cellulits , pt with multiple allergies, and resistant bugs, ID on case, cont aztreonam, linezoloid, pain mx with tylenol. D/w Dr Hernandez, requesting for pt to follow up as an outpatient after dc for current cellulitis. Per derm, she wants to send pt to a different pathology lab than [facility]. RLE Cellulitis/dermatitis over funes- MRSA, Pseudomona, Klebsiella infections-Pt documented with steroid responsive dermatitis on steroid taper, seen by derm, placed on AB Lower back pain- cont tylenol, oxycodone added A-fib-cont eliquis, rate controlled off meds, restart metoprolol HTN-hypotensive (pt apears to run low at baseline), holding enalapril, dilt on hold HLD-simvastatin on hold DVT- No DVT on imaging COPD-came in with resp acidosis, uses home oxygen, sating well on RA LEON-Unsure if pt is on CPAP at home, will consider bipap at night RA/Sjogren's -On hydoxychloroquine at home , unsure last use, will hold in sepsis and cellulitis DVT PPx- on eliquis Can dc cardiac monitoring Visit type Visit type - Emergency Visit Emergency Visit: Yes ED Registration Date: 06/08/19 Care time: The patient presented to the Emergency Department on the above date and was hospitalized for further evaluation of their emergent condition. - New Patient This patient is new to me today: No - Critical Care Critical Care patient: No - Discharge Referral Referred to [facility] Med P.C.: No ATTENDING PHYSICIAN STATEMENT I saw and evaluated the patient. I reviewed the resident's note and discussed the case with the resident. I agree with the resident's findings and plan as documented. SUBJECTIVE: OBJECTIVE: ASSESSMENT AND PLAN:
[2019-06-10] MEDS: ACETAMINOPHEN 325 MG TABLET (FP) PO PRN (08:37)
[2019-06-10] MEDS: APIXABAN 5 MG TABLET PO SCH ×2 (09:35→21:34)
[2019-06-10] MEDS: RANITIDINE HCL 150 MG TABLET (FP) PO SCH ×2 (09:35→21:33)
--- NOTE | 2019-06-10 10:14 | PN ---
Teaching Attending Note Name of Resident: Heidi Adam ATTENDING PHYSICIAN STATEMENT I saw and evaluated the patient. I reviewed the resident's note and discussed the case with the resident. I agree with the resident's findings and plan as documented with exceptions below. SUBJECTIVE: Patient seen and examined. right thigh pain, symptoms with improvement, no new complaints otherwise. OBJECTIVE: Vital Signs Period Temp Pulse Resp BP Sys/William Pulse Ox Last 24 Hr 98.2 F-99.0 F 68-98 16-20 101-135/48-78 95-97 Intake & Output 06/07/19 06/08/19 06/09/19 06/10/19 23:59 23:59 23:59 23:59 Intake Total 1000 Balance 1000 Weight 258 lb 258 lb General: sitting in bed, no acute distress Chest: decreased air entry, no rales or wheezing Abdomen:soft, obese Extremities: right thigh improving erythema/swelling and tenderness, pos warmth , RLE with chronic dermatitis/skin changes/excoriation Home Medications Medication Instructions Recorded Ascorbate Calcium [Vitamin C] 1,000 mg PO DAILY 08/30/15 Cholecalciferol (Vitamin D3) 1,000 unit PO BID 08/30/15 [Vitamin D3] Cyanocobalamin [Vitamin B12 -] 1,000 mcg PO DAILY 08/30/15 Oxycodone/APAP [Percocet - Must 1 each NR QID PRN 08/30/15 Order Individual Components] Simvastatin 10 mg PO HS 08/30/15 Guaifenesin [Mucinex] 600 mg PO DAILY 06/20/17 Metoprolol Succinate [Toprol XL -] 50 mg PO BID #60 tab.sr 06/25/17 Fish Oil/Borage/Flax/Om3,6,9 1 1 cap PO DAILY 07/12/17 [[place] 3-6-9 1,200 mg Softgel] Diltiazem [Cardizem -] 360 mg PO DAILY 08/29/17 Furosemide [Lasix] 40 mg PO DAILY PRN 08/29/17 Apixaban [Eliquis] 5 mg PO BID 04/22/19 Enalapril Maleate [Vasotec -] 2.5 mg PO DAILY 05/14/19 Gabapentin [Neurontin] 400 mg PO TID 05/14/19 Hydroxychloroquine Sulfate 200 mg PO DAILY 06/20/19 Ranitidine HCl [Zantac] 150 mg PO BID 05/14/19 Linezolid [Zyvox] 600 mg PO BID #14 tablet 05/19/19 predniSONE [Deltasone -] 10 mg PO DAILY #75 tablet 05/19/19 Active Medications Acetaminophen (Tylenol -) 650 mg PO Q4H PRN PRN Reason: PAIN LEVEL 6-10 Last Admin: 06/10/19 08:37 Dose: 650 mg Apixaban (Eliquis -) 5 mg PO BID [facility] Last Admin: 06/10/19 09:35 Dose: 5 mg Atorvastatin Calcium (Lipitor -) 10 mg PO HS [facility] Last Admin: 06/09/19 22:30 Dose: 10 mg Gabapentin (Neurontin -) 400 mg PO TID [facility] Last Admin: 06/10/19 06:00 Dose: 400 mg Lactated Ringer's (Lactated Ringers Solution) 1,000 mls @ 83 mls/hr IV ASDIR BELL Last Admin: 06/10/19 08:17 Dose: Not Given Aztreonam 2 gm/ Dextrose 100 mls @ 100 mls/hr IVPB Q8H-IV [facility]; Protocol Last Admin: 06/10/19 09:35 Dose: Not Given Linezolid (Zyvox 600 Mg Premix Bag (Restricted To Id) -) 600 mg in 300 mls @ 300 mls/hr IVPB Q12H [facility]; Protocol Last Admin: 06/10/19 03:44 Dose: 300 mls/hr Metoprolol Succinate (Toprol Xl -) 50 mg PO BID [facility] Last Admin: 06/10/19 09:35 Dose: 50 mg Ranitidine HCl (Zantac -) 150 mg PO BID [facility] Last Admin: 06/10/19 09:35 Dose: 150 mg Laboratory Results - last 24 hr 06/09/19 06/10/19 06/10/19 10:58 06:35 06:35 WBC 11.5 H 6.9 RBC 4.50 4.06 Hgb 12.1 11.1 Hct 37.7 D 34.1 MCV 83.7 83.9 MCH 26.8 27.4 MCHC 32.0 32.7 RDW 17.7 H 17.9 H Plt Count 111 L D 101 L MPV 8.1 8.0 Absolute Neuts (auto) 5.4 Neutrophils % 78.8 Lymphocytes % 13.4 D Monocytes % 6.0 Eosinophils % 1.8 D Basophils % 0.0 Nucleated RBC % 0 Sodium 143 Potassium 4.2 Chloride 105 Carbon Dioxide 37 H Anion Gap 1 L BUN 11.6 Creatinine 0.4 L Est GFR (CKD-EPI)AfAm 120.60 Est GFR (CKD-EPI)NonAf 104.06 Random Glucose 84 Calcium 7.8 L Phosphorus 2.9 Magnesium 1.8 Total Bilirubin 0.5 AST 6 L ALT 15 Alkaline Phosphatase 48 Total Protein 4.6 L Albumin 2.2 L Microbiology 06/08/19 17:14 Urine - Urine Clean Catch Urine Culture - Preliminary Lactose Fermenting Neg Bacilli 06/08/19 15:32 Blood - Peripheral Venous Blood Culture - Preliminary NO GROWTH OBTAINED AFTER 24 HOURS, INCUBATION TO CONTINUE FOR 4 DAYS. 06/08/19 15:32 Blood - Peripheral Venous Blood Culture - Preliminary NO GROWTH OBTAINED AFTER 24 HOURS, INCUBATION TO CONTINUE FOR 4 DAYS. ASSESSMENT AND PLAN: 74 yof with PMHx of Afib on eliquis, OA, RA, Sjogren's, COPDo n 4L home oxygen, venous stasis dermatitis, VRE, pseudomonas, recurrent RLE cellulitis, admitted with sepsis -Sepsis due to RLE cellulitis -Chronic right leg severe dermatitis -Asymptomatic bacteruria -RA/Sjogrens's -OA -COPD on 4L home oxygen -Afib on eliquis Plan: Clinically improved, WBC normalized, afebrile ID input noted. Aztreonam/linezolid. Follow up cultures. Vascular surgery input noted, wound care. Last day of prednisone 06/09, monitor off steroids. Dermatology consult. Hold anti-hypertensives/lasix. Dc IVF DVTPPX eliquus Dispo pending clinical improvement. Plan discussed with patient in detail, all questions answered.
--- NOTE | 2019-06-10 12:10 | PN ---
Progress Note, Physician History of Present Illness: AWAKE, ALERT SEATED IN BED C/O LATERAL R FOOT PAIN NO C/O THIGH PAIN NO FEVER/ CHILLS NO URINARY TRACT SYMPTOMS TEMPS IMPROVED AFEBRILE WBC NOW WNL THROMBOCYTOPENIA NOTED - Current Medication List Current Medications: Active Medications Acetaminophen (Tylenol -) 650 mg PO Q4H PRN PRN Reason: PAIN LEVEL 6-10 Last Admin: 06/10/19 08:37 Dose: 650 mg Apixaban (Eliquis -) 5 mg PO BID [facility] Last Admin: 06/10/19 09:35 Dose: 5 mg Atorvastatin Calcium (Lipitor -) 10 mg PO HS [facility] Last Admin: 06/09/19 22:30 Dose: 10 mg Gabapentin (Neurontin -) 400 mg PO TID [facility] Last Admin: 06/10/19 06:00 Dose: 400 mg Aztreonam 2 gm/ Dextrose 100 mls @ 100 mls/hr IVPB Q8H-IV [facility]; Protocol Last Admin: 06/10/19 09:35 Dose: Not Given Linezolid (Zyvox 600 Mg Premix Bag (Restricted To Id) -) 600 mg in 300 mls @ 300 mls/hr IVPB Q12H [facility]; Protocol Last Admin: 06/10/19 03:44 Dose: 300 mls/hr Metoprolol Succinate (Toprol Xl -) 50 mg PO BID [facility] Last Admin: 06/10/19 09:35 Dose: 50 mg Ranitidine HCl (Zantac -) 150 mg PO BID [facility] Last Admin: 06/10/19 09:35 Dose: 150 mg - Objective Vital Signs: Vital Signs Temperature 97.9 F 06/10/19 10:00 Pulse Rate 104 H 06/10/19 10:00 Respiratory Rate 18 06/10/19 10:00 Blood Pressure 106/58 L 06/10/19 10:00 O2 Sat by Pulse Oximetry (%) 95 06/10/19 10:00 Constitutional: Yes: No Distress Eyes: Yes: Conjunctiva Clear Cardiovascular: Yes: Regular Rate and Rhythm, S1, S2 Respiratory: Yes: CTA Bilaterally Gastrointestinal: Yes: Normal Bowel Sounds, Soft, Abdomen, Obese. No: Tenderness Extremities: Yes: Other (R THIGH STILL RED, WARM EXTENDS TO R BUTTOCK, MEDIAL THIGH) Labs: CBC, BMP 06/10/19 06:35 06/10/19 06:35 INR, PTT INR 1.33 (0.83-1.09) H 06/08/19 15:32 Assessment/Plan RECURRENT LE CELLULITIS, NOW R THIGH (NEW) FEVER/ LEUKOCYTOSIS- IMPROVED THROMBOCYTOPENIA- MONITOR ON LINEZOLID ASYMPTOMATIC BACTERURIA MULTIPLE ANTIBIOTIC ALLERGIES HX MDRO CONTINUE AZTREONAM/ LINEZOLID
[2019-06-10] MEDS: ATORVASTATIN CA 10 MG TABLET (FP) PO SCH (21:33)
[2019-06-10] MEDS: oxyCODONE HCL 5 MG TABLET PO PRN (21:34)
[2019-06-11] MEDS ORDERED: PT OWN MED DRAWER 7, Y5N ONE ×4 (01:43→18:41)
[2019-06-11] MEDS: AZTREONAM 2 GM in DEXTROSE 5%-WATER 100 ML IVPB SCH ×3 (02:40→18:47)
[2019-06-11] MEDS: LINEZOLID 600 MG PREMIX BAG 600 MG/300 ML BAG IVPB SCH ×2 (03:04→18:47)
[2019-06-11] MEDS: GABAPENTIN 400 MG CAPSULE (FP) PO SCH ×3 (06:03→21:19)
[2019-06-11 06:57] LABS: BASO % 0.1 % (0-2.0); EOS % 5.6 % (0-4.5); HEMATOCRIT 39.7 % (32.4-45.2); HEMOGLOBIN 12.7 GM/dL (10.7-15.3); LYMPH % 23.6 % (8-40); MCH 27.3 pg (25.7-33.7); MCHC 32.1 g/dl (32.0-36.0); MEAN PLT VOLUME 8.5 fl (7.5-11.1); MONO % 7.6 % (3.8-10.2); NEUT % 63.1 % (42.8-82.8); RBC 4.66 M/mm3 (3.60-5.2); RDW 18.2 % (11.6-15.6); WHITE BLOOD COUNT 5.3 K/mm3 (4.0-10.0)
[2019-06-11 07:19] LABS: MAGNESIUM 1.9 mg/dL (1.8-2.4); PHOSPHOROUS 3.6 mg/dL (2.5-4.9)
[2019-06-11 08:10] LABS: PLATELET COUNT 125 K/MM3 (134-434)
[2019-06-11] MEDS: RANITIDINE HCL 150 MG TABLET (FP) PO SCH ×2 (11:23→21:19)
[2019-06-11] MEDS: APIXABAN 5 MG TABLET PO SCH ×2 (11:23→21:19)
--- NOTE | 2019-06-11 12:59 | PN ---
Physical Exam: SUBJECTIVE: Patient seen and examined. Pt back on home oxycodone for chronic back pain. D/w her about outpt follow up with Dr Hernandez. No fevers, no chills , no worsening SOB. Thigh pain controlled on meds. Pt reported coughin up greenish colored sputum yesterday, but feels much better. OBJECTIVE: Vital Signs Period Temp Pulse Resp BP Sys/William Pulse Ox Last 24 Hr 97.5 F-98.3 F 84-94 18-20 127-140/60-86 96-96 Vital Signs Temp 98 F 06/11/19 14:35 Pulse 105 H 06/11/19 14:35 Resp 20 06/11/19 14:35 BP 124/75 06/11/19 14:35 Pulse Ox 96 06/11/19 09:00 Intake & Output 06/10/19 06/11/19 06/11/19 23:59 11:59 23:59 Intake Total 1864 400 550 Balance 1864 400 550 Weight 117.027 kg Intake: IV 564 Lactated Ringers Solution 564 1,000 ml @ 83 mls/hr IV ASDIR BELL Rx#:[id number] IVPB 400 400 Oral 900 550 Other: Voiding Method Incontinent Incontinent # Unmeasured Voids Void 2 2 2 Bowel Movement Yes No # Bowel Movements 1 Height 1.7 m Body Mass Index (BMI) 40.4 GENERAL: The patient is obese, awake, alert, and fully oriented, in no acute distress, on NC. LUNGS: Breath sounds equal, clear to auscultation bilaterally HEART: irreg, S1, S2 ABDOMEN: Soft, nontender, obese, normoactive bowel sounds EXTREMITIES:B/l chronic venous stasis changes b/l LEs around shins. R funes with desqamated skin, dry, clean, no exudates. R hip and buttock erythematous, tender , slightly warm but improved from before. NEUROLOGICAL: Cranial nerves II through XII grossly intact. Normal speech, gait not observed. CBC, BMP 06/11/19 06:20 06/10/19 06:35 Laboratory Results - last 24 hr 06/11/19 06/11/19 06:20 06:20 WBC 5.3 RBC 4.66 Hgb 12.7 Hct 39.7 D MCV 85.0 MCH 27.3 MCHC 32.1 RDW 18.2 H Plt Count 125 L D MPV 8.5 Absolute Neuts (auto) 3.3 Neutrophils % 63.1 Lymphocytes % 23.6 D Monocytes % 7.6 Eosinophils % 5.6 H D Basophils % 0.1 D Nucleated RBC % 0 Phosphorus 3.6 Magnesium 1.9 Active Medications Generic Name Dose Route Start Last Admin Trade Name Freq PRN Reason Stop Dose Admin Acetaminophen 650 mg 06/09/19 11:00 06/10/19 08:37 Tylenol - PO 650 mg Q4H PRN Administration PAIN LEVEL 6-10 Apixaban 5 mg 06/08/19 22:00 06/11/19 11:23 Eliquis - PO 5 mg BID [facility] Administration Atorvastatin Calcium 10 mg 06/08/19 22:00 06/10/19 21:33 Lipitor - PO 10 mg HS [facility] Administration Gabapentin 400 mg 06/09/19 14:00 06/11/19 06:03 Neurontin - PO 400 mg TID [facility] Administration Aztreonam 2 gm/ Dextrose 100 mls @ 100 mls/hr 06/09/19 18:00 06/11/19 11:22 IVPB 100 mls/hr Q8H-IV [facility] Administration Protocol Linezolid 600 mg in 300 mls @ 300 mls/hr 06/09/19 16:00 06/11/19 03:04 Zyvox 600 Mg Premix Bag (Restricted To Id) - IVPB 300 mls/hr Q12H [facility] Administration Protocol Metoprolol Succinate 50 mg 06/10/19 10:00 06/11/19 11:23 Toprol Xl - PO 50 mg BID [facility] Administration Oxycodone HCl 5 mg 06/10/19 14:26 06/10/19 21:34 Roxicodone - PO 5 mg Q6H PRN Administration PAIN LEVEL 7 - 10 Ranitidine HCl 150 mg 06/09/19 11:45 06/11/19 11:23 Zantac - PO 150 mg BID [facility] Administration Ambulatory Orders Ascorbate Calcium [Vitamin C] 1,000 mg PO DAILY 08/30/15 Cholecalciferol (Vitamin D3) [Vitamin D3] 1,000 unit PO BID 08/30/15 Cyanocobalamin [Vitamin B12 -] 1,000 mcg PO DAILY 08/30/15 Oxycodone/APAP [Percocet - Must Order Individual Components] 1 each NR QID PRN 08/30/15 Simvastatin 10 mg PO HS 08/30/15 Guaifenesin [Mucinex] 600 mg PO DAILY 06/20/17 Metoprolol Succinate [Toprol XL -] 50 mg PO BID #60 tab.sr 06/25/17 Fish Oil/Borage/Flax/Om3,6,9 1 [[place] 3-6-9 1,200 mg Softgel] 1 cap PO DAILY Diltiazem [Cardizem -] 360 mg PO DAILY 08/29/17 Furosemide [Lasix] 40 mg PO DAILY PRN 08/29/17 Apixaban [Eliquis] 5 mg PO BID 04/22/19 Enalapril Maleate [Vasotec -] 2.5 mg PO DAILY 05/14/19 Gabapentin [Neurontin] 400 mg PO TID 05/14/19 Hydroxychloroquine Sulfate 200 mg PO DAILY 05/14/19 Ranitidine HCl [Zantac] 150 mg PO BID 05/14/19 Linezolid [Zyvox] 600 mg PO BID #14 tablet 05/19/19 predniSONE [Deltasone -] 10 mg PO DAILY #75 tablet 05/19/19 Current Medications Acetaminophen (Tylenol -) 650 mg PO Q4H PRN PRN Reason: PAIN LEVEL 6-10 Last Admin: 06/10/19 08:37 Dose: 650 mg Apixaban (Eliquis -) 5 mg PO BID [facility] Last Admin: 06/11/19 11:23 Dose: 5 mg Atorvastatin Calcium (Lipitor -) 10 mg PO HS [facility] Last Admin: 06/10/19 21:33 Dose: 10 mg Gabapentin (Neurontin -) 400 mg PO TID [facility] Last Admin: 06/11/19 13:22 Dose: 400 mg Aztreonam 2 gm/ Dextrose 100 mls @ 100 mls/hr IVPB Q8H-IV [facility]; Protocol Last Admin: 06/11/19 11:22 Dose: 100 mls/hr Linezolid (Zyvox 600 Mg Premix Bag (Restricted To Id) -) 600 mg in 300 mls @ 300 mls/hr IVPB Q12H [facility]; Protocol Last Admin: 06/11/19 03:04 Dose: 300 mls/hr Metoprolol Succinate (Toprol Xl -) 50 mg PO BID [facility] Last Admin: 06/11/19 11:23 Dose: 50 mg Oxycodone HCl (Roxicodone -) 5 mg PO Q6H PRN PRN Reason: PAIN LEVEL 7 - 10 Last Admin: 06/10/19 21:34 Dose: 5 mg Ranitidine HCl (Zantac -) 150 mg PO BID [facility] Last Admin: 06/11/19 11:23 Dose: 150 mg Microbiology 06/08/19 15:32 Blood - Peripheral Venous Blood Culture - Preliminary NO GROWTH OBTAINED AFTER 72 HOURS, INCUBATION TO CONTINUE FOR 2 DAYS. 06/08/19 15:32 Blood - Peripheral Venous Blood Culture - Preliminary NO GROWTH OBTAINED AFTER 72 HOURS, INCUBATION TO CONTINUE FOR 2 DAYS. 06/08/19 17:14 Urine - Urine Clean Catch Urine Culture - Final Klebsiella Pneumoniae ASSESSMENT/PLAN: 74 F with PMH significant for recurrent RLE Cellulitis- MRSA, Pseudomona, Klebsiella infections, A-fib, HTN, HLD, DVT, COPD, LEON, RA, who presented with a new cellulitis on her right upper thigh. #Sepsis secondary to RLE cellulitis leucocytosis resolved, fever subsided, Fluids dcd #right upper thigh dermatitis New location from prior RLE dermatitis/cellulits, pt with multiple allergies, and resistant bugs, ID on case, cont aztreonam,linezoloid, pain mx with tylenol/oxycodone. D/w Dr Hernandez, requesting for pt to follow up as an outpatient after dc for current cellulitis. Per derm, she wants to send pt to a different pathology lab than [facility]. #RLE Cellulitis/dermatitis over funes- MRSA, Pseudomona, Klebsiella infections- Pt documented with steroid responsive dermatitis on steroid taper, seen by derm, placed on AB #Lower back pain cont tylenol, cont oxycodone #A-fib- cont eliquis, Cont metoprolol Tachycardic- restart dilt #HTN holding enalapril, restart dilt #HLD Home simvastatin cont lipitor DVT No DVT on imaging Cont eliquis COPD Greenish sputum, cont AB came in with resp acidosis, uses home oxygen 4L, cont LEON- Unsure if pt is on CPAP at home, will consider bipap at night RA/Sjogren's - On hydoxychloroquine at home , will hold in sepsis and cellulitis Asymptomatic bacteriuria per ID No need to treat DVT PPx- on eliquis Medsurg Visit type - Emergency Visit Emergency Visit: Yes ED Registration Date: 06/08/19 Care time: The patient presented to the Emergency Department on the above date and was hospitalized for further evaluation of their emergent condition. - New Patient This patient is new to me today: No - Critical Care Critical Care patient: No - Discharge Referral Referred to [facility] Med P.C.: No ATTENDING PHYSICIAN STATEMENT I saw and evaluated the patient. I reviewed the resident's note and discussed the case with the resident. I agree with the resident's findings and plan as documented. SUBJECTIVE: OBJECTIVE: ASSESSMENT AND PLAN:
--- NOTE | 2019-06-11 13:49 | PN ---
Teaching Attending Note Name of Resident: Heidi Adam ATTENDING PHYSICIAN STATEMENT I saw and evaluated the patient. I reviewed the resident's note and discussed the case with the resident. I agree with the resident's findings and plan as documented with exceptions below. SUBJECTIVE: Patient seen and examined. right leg pain, redness but better, no new complaints. OBJECTIVE: Vital Signs Period Temp Pulse Resp BP Sys/William Pulse Ox Last 24 Hr 97.5 F-98.3 F 84-94 18-20 127-140/60-86 96-96 Intake & Output 06/08/19 06/09/19 06/10/19 06/11/19 23:59 23:59 23:59 23:59 Intake Total 2864 400 Balance 2864 400 Weight 258 lb 258 lb General: sitting in bed in no acute distress chest: distant breath sounds, no rales or wheezing Abdomen:soft, obese, NT Extremities: right thigh redness/swelling/warmth/tenderness improved, RLE dermatitis findings unchanged Active Medications Acetaminophen (Tylenol -) 650 mg PO Q4H PRN PRN Reason: PAIN LEVEL 6-10 Last Admin: 06/10/19 08:37 Dose: 650 mg Apixaban (Eliquis -) 5 mg PO BID [facility] Last Admin: 06/11/19 11:23 Dose: 5 mg Atorvastatin Calcium (Lipitor -) 10 mg PO HS [facility] Last Admin: 06/10/19 21:33 Dose: 10 mg Gabapentin (Neurontin -) 400 mg PO TID [facility] Last Admin: 06/11/19 13:22 Dose: 400 mg Aztreonam 2 gm/ Dextrose 100 mls @ 100 mls/hr IVPB Q8H-IV [facility]; Protocol Last Admin: 06/11/19 11:22 Dose: 100 mls/hr Linezolid (Zyvox 600 Mg Premix Bag (Restricted To Id) -) 600 mg in 300 mls @ 300 mls/hr IVPB Q12H [facility]; Protocol Last Admin: 06/11/19 03:04 Dose: 300 mls/hr Metoprolol Succinate (Toprol Xl -) 50 mg PO BID [facility] Last Admin: 06/11/19 11:23 Dose: 50 mg Oxycodone HCl (Roxicodone -) 5 mg PO Q6H PRN PRN Reason: PAIN LEVEL 7 - 10 Last Admin: 06/10/19 21:34 Dose: 5 mg Ranitidine HCl (Zantac -) 150 mg PO BID [facility] Last Admin: 06/11/19 11:23 Dose: 150 mg Laboratory Results - last 24 hr 06/11/19 06/11/19 06:20 06:20 WBC 5.3 RBC 4.66 Hgb 12.7 Hct 39.7 D MCV 85.0 MCH 27.3 MCHC 32.1 RDW 18.2 H Plt Count 125 L D MPV 8.5 Absolute Neuts (auto) 3.3 Neutrophils % 63.1 Lymphocytes % 23.6 D Monocytes % 7.6 Eosinophils % 5.6 H D Basophils % 0.1 D Nucleated RBC % 0 Phosphorus 3.6 Magnesium 1.9 Microbiology 06/08/19 17:14 Urine - Urine Clean Catch Urine Culture - Final Klebsiella Pneumoniae 06/08/19 15:32 Blood - Peripheral Venous Blood Culture - Preliminary NO GROWTH OBTAINED AFTER 48 HOURS, INCUBATION TO CONTINUE FOR 3 DAYS. 06/08/19 15:32 Blood - Peripheral Venous Blood Culture - Preliminary NO GROWTH OBTAINED AFTER 48 HOURS, INCUBATION TO CONTINUE FOR 3 DAYS. ASSESSMENT AND PLAN: 74 yof with PMHx of Afib on eliquis, OA, RA, Sjogren's, COPDo n 4L home oxygen, venous stasis dermatitis, VRE, pseudomonas, recurrent RLE cellulitis, admitted with sepsis -Sepsis due to RLE cellulitis -Chronic right leg severe dermatitis -Asymptomatic bacteruria -RA/Sjogrens's -OA -COPD on 4L home oxygen -Afib on eliquis Plan: Clinically improved, WBC normalized, afebrile ID input noted. Aztreonam/linezolid. Cultures neg so far. Vascular surgery input noted, wound care. Last day of prednisone 06/09, monitor off steroids. Dermatology consult. Hold anti-hypertensives/lasix. Off IVF. DVTPPX eliquis Dispo pending clinical improvement. Plan discussed with patient and nursing in detail, all questions answered.
[2019-06-11] MEDS ORDERED: dilTIAZem HCL 60 MG TABLET (FP) PO SCH (18:00)
[2019-06-11] MEDS: ATORVASTATIN CA 10 MG TABLET (FP) PO SCH (21:19)
[2019-06-11] MEDS: ACETAMINOPHEN 325 MG TABLET (FP) PO PRN (21:19)
[2019-06-12] MEDS ORDERED: PT OWN MED DRAWER 7, Y5N ONE ×3 (02:50→17:17)
[2019-06-12] MEDS: AZTREONAM 2 GM in DEXTROSE 5%-WATER 100 ML IVPB SCH ×3 (02:52→18:15)
[2019-06-12] MEDS: LINEZOLID 600 MG PREMIX BAG 600 MG/300 ML BAG IVPB SCH ×2 (04:00→15:05)
[2019-06-12] MEDS: GABAPENTIN 400 MG CAPSULE (FP) PO SCH ×3 (05:05→21:52)
--- NOTE | 2019-06-12 07:36 | PN ---
Physical Exam: SUBJECTIVE: Patient seen and examined. No chest pain, no SOB. Feels like pain is improving over thigh/buttock. Has chronic back pain managed on meds. OBJECTIVE: Vital Signs Period Temp Pulse Resp BP Sys/William Pulse Ox Last 24 Hr 97.7 F-98 F 76-105 18-20 99-126/55-75 96-98 Vital Signs Temp 98.4 F 06/12/19 14:53 Pulse 60 06/12/19 14:53 Resp 18 06/12/19 14:53 BP 122/84 06/12/19 14:53 Pulse Ox 98 06/12/19 09:00 Intake & Output 06/11/19 06/12/19 06/12/19 23:59 11:59 23:59 Intake Total 950 Balance 950 Weight 117.027 kg Intake: Oral 950 Other: Voiding Method Incontinent Incontinent # Unmeasured Voids Void 2 2 Bowel Movement No Height 1.7 m Body Mass Index (BMI) 40.4 GENERAL: The patient is obese, awake, alert, and fully oriented, in no acute distress, on 3L NC. ENT: moist mucous membranes. LUNGS: Breath sounds equal, clear to auscultation bilaterally, no wheezes, no crackles HEART: irreg, S1, S2 ABDOMEN: Soft, nontender, obese, normoactive bowel sounds EXTREMITIES: R foot recently wrapped. L foot with features of chronic venous stasis NEUROLOGICAL: Cranial nerves II through XII grossly intact. Normal speech, no lateralizing signs, gait not observed. CBC, BMP 06/12/19 06:35 06/12/19 06:35 Laboratory Results - last 24 hr 06/11/19 06:20 WBC 5.3 RBC 4.66 Hgb 12.7 Hct 39.7 D MCV 85.0 MCH 27.3 MCHC 32.1 RDW 18.2 H Plt Count 125 L D MPV 8.5 Absolute Neuts (auto) 3.3 Neutrophils % 63.1 Lymphocytes % 23.6 D Monocytes % 7.6 Eosinophils % 5.6 H D Basophils % 0.1 D Nucleated RBC % 0 Active Medications Generic Name Dose Route Start Last Admin Trade Name Freq PRN Reason Stop Dose Admin Acetaminophen 650 mg 06/09/19 11:00 06/11/19 21:19 Tylenol - PO 650 mg Q4H PRN Administration PAIN LEVEL 6-10 Apixaban 5 mg 06/08/19 22:00 06/11/19 21:19 Eliquis - PO 5 mg BID [facility] Administration Atorvastatin Calcium 10 mg 06/08/19 22:00 06/11/19 21:19 Lipitor - PO 10 mg HS COUNTS INCLUDE 234 BEDS AT THE [facility] Administration Diltiazem HCl 360 mg 06/11/19 18:00 06/11/19 18:52 Cardizem Cd - PO 360 mg DAILY [facility] Administration Gabapentin 400 mg 06/09/19 14:00 06/12/19 05:05 Neurontin - PO 400 mg TID BELL Administration Aztreonam 2 gm/ Dextrose 100 mls @ 100 mls/hr 06/09/19 18:00 06/12/19 02:52 IVPB 100 mls/hr Q8H-IV [facility] Administration Protocol Linezolid 600 mg in 300 mls @ 300 mls/hr 06/09/19 16:00 06/12/19 04:00 Zyvox 600 Mg Premix Bag (Restricted To Id) - IVPB 300 mls/hr Q12H [facility] Administration Protocol Metoprolol Succinate 50 mg 06/10/19 10:00 06/11/19 21:19 Toprol Xl - PO 50 mg BID [facility] Administration Oxycodone HCl 5 mg 06/10/19 14:26 06/10/19 21:34 Roxicodone - PO 5 mg Q6H PRN Administration PAIN LEVEL 7 - 10 Ranitidine HCl 150 mg 06/09/19 11:45 06/11/19 21:19 Zantac - PO 150 mg BID BE[facility] Administration Current Medications Acetaminophen (Tylenol -) 650 mg PO Q4H PRN PRN Reason: PAIN LEVEL 6-10 Last Admin: 06/12/19 10:01 Dose: 650 mg Apixaban (Eliquis -) 5 mg PO BID [facility]S [facility]CLUDE 234 BEDS AT [facility] Last Admin: 06/12/19 10:02 Dose: 5 mg Atorvastatin Calcium (Lipitor -) 10 mg PO HS COUNTS INCLUDE 234 BEDS AT THE [facility] Last Admin: 06/11/19 21:19 Dose: 10 mg Diltiazem HCl (Cardizem Cd -) 360 mg PO DAILY COUNTS INCLUDE 234 BEDS AT THE [facility] Last Admin: 06/12/19 10:00 Dose: 360 mg Gabapentin (Neurontin -) 400 mg PO TID COUNTS INCLUDE 234 BEDS AT THE [facility] Last Admin: 06/12/19 13:58 Dose: 400 mg Aztreonam 2 gm/ Dextrose 100 mls @ 100 mls/hr IVPB Q8H-IV [facility]; Protocol Last Admin: 06/12/19 18:15 Dose: 100 mls/hr Linezolid (Zyvox 600 Mg Premix Bag (Restricted To Id) -) 600 mg in 300 mls @ 300 mls/hr IVPB Q12H COUNTS INCLUDE 234 BEDS AT THE [facility]; Protocol Last Admin: 06/12/19 15:05 Dose: 300 mls/hr Metoprolol Succinate (Toprol Xl -) 50 mg PO BID COUNTS INCLUDE 234 BEDS AT THE [facility] Last Admin: 06/12/19 10:01 Dose: 50 mg Oxycodone HCl (Roxicodone -) 5 mg PO Q6H PRN PRN Reason: PAIN LEVEL 7 - 10 Last Admin: 06/12/19 10:37 Dose: 5 mg Ranitidine HCl (Zantac -) 150 mg PO BID COUNTS INCLUDE 234 BEDS AT THE [facility] Last Admin: 06/12/19 10:02 Dose: 150 mg Ambulatory Orders Ascorbate Calcium [Vitamin C] 1,000 mg PO DAILY 08/30/15 Cholecalciferol (Vitamin D3) [Vitamin D3] 1,000 unit PO BID 08/30/15 Cyanocobalamin [Vitamin B12 -] 1,000 mcg PO DAILY 08/30/15 Oxycodone/APAP [Percocet - Must Order Individual Components] 1 each NR QID PRN 08/30/15 Simvastatin 10 mg PO HS 08/30/15 Guaifenesin [Mucinex] 600 mg PO DAILY 06/20/17 Metoprolol Succinate [Toprol XL -] 50 mg PO BID #60 tab.sr 06/25/17 Fish Oil/Borage/Flax/Om3,6,9 1 [[place] 3-6-9 1,200 mg Softgel] 1 cap PO DAILY Diltiazem [Cardizem -] 360 mg PO DAILY 08/29/17 Furosemide [Lasix] 40 mg PO DAILY PRN 08/29/17 Apixaban [Eliquis] 5 mg PO BID 04/22/19 Enalapril Maleate [Vasotec -] 2.5 mg PO DAILY 05/14/19 Gabapentin [Neurontin] 400 mg PO TID 05/14/19 Hydroxychloroquine Sulfate 200 mg PO DAILY 05/14/19 Ranitidine HCl [Zantac] 150 mg PO BID 05/14/19 Linezolid [Zyvox] 600 mg PO BID #14 tablet 05/19/19 predniSONE [Deltasone -] 10 mg PO DAILY #75 tablet 05/19/19 Microbiology 06/08/19 15:32 Blood - Peripheral Venous Blood Culture - Preliminary NO GROWTH OBTAINED AFTER 96 HOURS, INCUBATION TO CONTINUE FOR 1 DAYS. 06/08/19 15:32 Blood - Peripheral Venous Blood Culture - Preliminary NO GROWTH OBTAINED AFTER 96 HOURS, INCUBATION TO CONTINUE FOR 1 DAYS. 06/08/19 17:14 Urine - Urine Clean Catch Urine Culture - Final Klebsiella Pneumoniae ASSESSMENT/PLAN: 74 F with PMH significant for recurrent RLE Cellulitis- MRSA, Pseudomona, Klebsiella infections, A-fib, HTN, HLD, DVT, COPD, LEON, RA, who presented with a new cellulitis on her right upper thigh. #Sepsis secondary to RLE cellulitis leucocytosis resolved, fever resolved #right upper thigh dermatitis New location from prior RLE dermatitis/cellulits, pt with multiple allergies, and resistant bugs, ID on case, cont aztreonam,linezoloid, pain mx with tylenol/oxycodone. D/w Dr Hernandez, requesting for pt to follow up as an outpatient after dc for current cellulitis. Per derm, she wants to send pt to a different pathology lab than [facility]. #RLE Cellulitis/dermatitis over funes- MRSA, Pseudomona, Klebsiella infections- Pt documented with steroid responsive dermatitis on steroid taper, seen by derm, placed on AB #Lower back pain cont tylenol, cont oxycodone #A-fib- cont eliquis, Cont metoprolol Tachycardic- restart dilt #HTN holding enalapril, restart dilt #HLD Home simvastatin cont lipitor DVT No DVT on imaging Cont eliquis COPD Greenish sputum, resolved, cont AB came in with resp acidosis, resolved uses home oxygen 4L, cont LEON- Unsure if pt is on CPAP at home, will consider bipap at night RA/Sjogren's - On hydoxychloroquine at home , will hold in sepsis and cellulitis Asymptomatic bacteriuria per ID No need to treat DVT PPx- on eliquis Medsurg Visit type - Emergency Visit Emergency Visit: Yes ED Registration Date: 06/08/19 Care time: The patient presented to the Emergency Department on the above date and was hospitalized for further evaluation of their emergent condition. - New Patient This patient is new to me today: No - Critical Care Critical Care patient: No - Discharge Referral Referred to [facility] Med P.C.: No ATTENDING PHYSICIAN STATEMENT I saw and evaluated the patient. I reviewed the resident's note and discussed the case with the resident. I agree with the resident's findings and plan as documented. SUBJECTIVE: OBJECTIVE: ASSESSMENT AND PLAN:
[2019-06-12 08:01] LABS: ALBUMIN 2.5 g/dl (3.4-5.0); BILIRUBIN,TOTAL 0.4 mg/dL (0.2-1); BLOOD UREA NITROGEN 17.7 mg/dL (7-18); CALCIUM 8.2 mg/dL (8.5-10.1); CREATININE 0.4 mg/dL (0.55-1.3); PHOSPHOROUS 3.6 mg/dL (2.5-4.9); POTASSIUM 4.5 mmol/L (3.5-5.1); TOT PROT 5.1 g/dl (6.4-8.2)
[2019-06-12 08:22] LABS: BASO % 0.4 % (0-2.0); EOS % 8.1 % (0-4.5); HEMATOCRIT 38.5 % (32.4-45.2); HEMOGLOBIN 12.3 GM/dL (10.7-15.3); LYMPH % 27.8 % (8-40); MCH 27.3 pg (25.7-33.7); MCHC 32.1 g/dl (32.0-36.0); MEAN CELL VOLUME 85.2 fl (80-96); MEAN PLT VOLUME 8.4 fl (7.5-11.1); MONO % 8.5 % (3.8-10.2); NEUT % 55.2 % (42.8-82.8); RBC 4.52 M/mm3 (3.60-5.2); RDW 17.7 % (11.6-15.6); WHITE BLOOD COUNT 4.4 K/mm3 (4.0-10.0)
[2019-06-12 08:30] LABS: PLATELET COUNT 139 K/MM3 (134-434)
[2019-06-12] MEDS: ACETAMINOPHEN 325 MG TABLET (FP) PO PRN ×2 (10:01→19:46)
[2019-06-12] MEDS: RANITIDINE HCL 150 MG TABLET (FP) PO SCH ×2 (10:02→21:52)
[2019-06-12] MEDS: APIXABAN 5 MG TABLET PO SCH ×2 (10:02→21:52)
[2019-06-12] MEDS: oxyCODONE HCL 5 MG TABLET PO PRN (10:37)
--- NOTE | 2019-06-12 13:57 | PN ---
Teaching Attending Note Name of Resident: Heidi Adam ATTENDING PHYSICIAN STATEMENT I saw and evaluated the patient. I reviewed the resident's note and discussed the case with the resident. I agree with the resident's findings and plan as documented with exceptions below. SUBJECTIVE: Patient seen and examined. Right thigh pain/redness/tenderness improved. No new fevers, chills or concerns. OBJECTIVE: Vital Signs Period Temp Pulse Resp BP Sys/William Pulse Ox Last 24 Hr 97.7 F-98 F 65-105 18-20 99-126/55-75 98-98 Intake & Output 06/09/19 06/10/19 06/11/19 06/12/19 23:59 23:59 23:59 23:59 Intake Total 2864 1350 Balance 2864 1350 Weight 258 lb 258 lb General: sitting in bed in no acute distress Chest: decreased air entry all over Abdomen:soft, obese, NT Extremities: right thigh erythema/warm/tenderness resolving, RLE dermatitis findings unchanged Home Medications Medication Instructions Recorded Ascorbate Calcium [Vitamin C] 1,000 mg PO DAILY 08/30/15 Cholecalciferol (Vitamin D3) 1,000 unit PO BID 08/30/15 [Vitamin D3] Cyanocobalamin [Vitamin B12 -] 1,000 mcg PO DAILY 08/30/15 Oxycodone/APAP [Percocet - Must 1 each NR QID PRN 08/30/15 Order Individual Components] Simvastatin 10 mg PO HS 08/30/15 Guaifenesin [Mucinex] 600 mg PO DAILY 06/20/17 Metoprolol Succinate [Toprol XL -] 50 mg PO BID #60 tab.sr 06/25/17 Fish Oil/Borage/Flax/Om3,6,9 1 1 cap PO DAILY 07/12/17 [[place] 3-6-9 1,200 mg Softgel] Diltiazem [Cardizem -] 360 mg PO DAILY 08/29/17 Furosemide [Lasix] 40 mg PO DAILY PRN 08/29/17 Apixaban [Eliquis] 5 mg PO BID 04/22/19 Enalapril Maleate [Vasotec -] 2.5 mg PO DAILY 05/14/19 Gabapentin [Neurontin] 400 mg PO TID 05/14/19 Hydroxychloroquine Sulfate 200 mg PO DAILY 05/14/19 Ranitidine HCl [Zantac] 150 mg PO BID 05/14/19 Linezolid [Zyvox] 600 mg PO BID #14 tablet 05/19/19 predniSONE [Deltasone -] 10 mg PO DAILY #75 tablet 05/19/19 Active Medications Acetaminophen (Tylenol -) 650 mg PO Q4H PRN PRN Reason: PAIN LEVEL 6-10 Last Admin: 06/12/19 10:01 Dose: 650 mg Apixaban (Eliquis -) 5 mg PO BID [facility] Last Admin: 06/12/19 10:02 Dose: 5 mg Atorvastatin Calcium (Lipitor -) 10 mg PO HS [facility] Last Admin: 06/11/19 21:19 Dose: 10 mg Diltiazem HCl (Cardizem Cd -) 360 mg PO DAILY [facility] Last Admin: 06/12/19 10:00 Dose: 360 mg Gabapentin (Neurontin -) 400 mg PO TID [facility] Last Admin: 06/12/19 05:05 Dose: 400 mg Aztreonam 2 gm/ Dextrose 100 mls @ 100 mls/hr IVPB Q8H-IV [facility]; Protocol Last Admin: 06/12/19 10:00 Dose: 100 mls/hr Linezolid (Zyvox 600 Mg Premix Bag (Restricted To Id) -) 600 mg in 300 mls @ 300 mls/hr IVPB Q12H [facility]; Protocol Last Admin: 06/12/19 04:00 Dose: 300 mls/hr Metoprolol Succinate (Toprol Xl -) 50 mg PO BID [facility] Last Admin: 06/12/19 10:01 Dose: 50 mg Oxycodone HCl (Roxicodone -) 5 mg PO Q6H PRN PRN Reason: PAIN LEVEL 7 - 10 Last Admin: 06/12/19 10:37 Dose: 5 mg Ranitidine HCl (Zantac -) 150 mg PO BID [facility] Last Admin: 06/12/19 10:02 Dose: 150 mg Laboratory Results - last 24 hr 06/12/19 06/12/19 06:35 06:35 WBC 4.4 RBC 4.52 Hgb 12.3 Hct 38.5 MCV 85.2 MCH 27.3 MCHC 32.1 RDW 17.7 H Plt Count 139 MPV 8.4 Absolute Neuts (auto) 2.5 Neutrophils % 55.2 Lymphocytes % 27.8 Monocytes % 8.5 Eosinophils % 8.1 H Basophils % 0.4 D Nucleated RBC % 0 Sodium 141 Potassium 4.5 Chloride 103 Carbon Dioxide 37 H Anion Gap 2 L BUN 17.7 Creatinine 0.4 L Est GFR (CKD-EPI)AfAm 120.60 Est GFR (CKD-EPI)NonAf 104.06 Random Glucose 82 Calcium 8.2 L Phosphorus 3.6 Magnesium 2.0 Total Bilirubin 0.4 AST 8 L ALT 15 Alkaline Phosphatase 56 Total Protein 5.1 L Albumin 2.5 L Microbiology 06/08/19 15:32 Blood - Peripheral Venous Blood Culture - Preliminary NO GROWTH OBTAINED AFTER 72 HOURS, INCUBATION TO CONTINUE FOR 2 DAYS. 06/08/19 15:32 Blood - Peripheral Venous Blood Culture - Preliminary NO GROWTH OBTAINED AFTER 72 HOURS, INCUBATION TO CONTINUE FOR 2 DAYS. 06/08/19 17:14 Urine - Urine Clean Catch Urine Culture - Final Klebsiella Pneumoniae ASSESSMENT AND PLAN: 74 yof with PMHx of Afib on eliquis, OA, RA, Sjogren's, COPDo n 4L home oxygen, venous stasis dermatitis, VRE, pseudomonas, recurrent RLE cellulitis, admitted with sepsis -Sepsis due to RLE cellulitis -Chronic right leg severe dermatitis -Asymptomatic bacteruria -RA/Sjogrens's -OA -COPD on 4L home oxygen -Afib on eliquis Plan: Clinically improved, WBC normalized, afebrile ID input noted. Aztreonam/linezolid, will continues over 48 hours and likely transition to linezolid if no concerns. Cultures neg so far. Vascular surgery input noted, wound care. Last day of prednisone 06/09, monitor off steroids. Dermatology follow up outpatient. Continue metoprolol/cardizem. ACEi on hold. Lasix prn. Off IVF. DVTPPX eliquis Dispo in 48 hours if continues to improve. Plan discussed with patient and nursing in detail, all questions answered.
[2019-06-12] MEDS: ATORVASTATIN CA 10 MG TABLET (FP) PO SCH (21:52)
[2019-06-13] MEDS ORDERED: PT OWN MED DRAWER 7, Y5N ONE ×2 (01:05→09:38)
[2019-06-13] MEDS: AZTREONAM 2 GM in DEXTROSE 5%-WATER 100 ML IVPB SCH ×3 (01:06→18:45)
[2019-06-13] MEDS: LINEZOLID 600 MG PREMIX BAG 600 MG/300 ML BAG IVPB SCH ×2 (04:17→16:38)
[2019-06-13] MEDS: GABAPENTIN 400 MG CAPSULE (FP) PO SCH ×3 (05:29→22:00)
[2019-06-13 06:36] LABS: BASO % 0.5 % (0-2.0); EOS % 8.3 % (0-4.5); HEMATOCRIT 38.3 % (32.4-45.2); HEMOGLOBIN 12.3 GM/dL (10.7-15.3); LYMPH % 29.3 % (8-40); MCH 27.2 pg (25.7-33.7); MCHC 32.1 g/dl (32.0-36.0); MEAN CELL VOLUME 84.7 fl (80-96); MONO % 9.3 % (3.8-10.2); NEUT % 52.6 % (42.8-82.8); PLATELET COUNT 141 K/MM3 (134-434); RBC 4.52 M/mm3 (3.60-5.2); RDW 17.1 % (11.6-15.6); WHITE BLOOD COUNT 4.2 K/mm3 (4.0-10.0)
[2019-06-13 06:58] LABS: ALBUMIN 2.5 g/dl (3.4-5.0); BILIRUBIN,TOTAL 0.5 mg/dL (0.2-1); BLOOD UREA NITROGEN 16.9 mg/dL (7-18); CALCIUM 8.1 mg/dL (8.5-10.1); CREATININE 0.5 mg/dL (0.55-1.3); PHOSPHOROUS 3.4 mg/dL (2.5-4.9); POTASSIUM 4.6 mmol/L (3.5-5.1); TOT PROT 5.2 g/dl (6.4-8.2)
--- NOTE | 2019-06-13 09:12 | PN ---
Physical Exam: SUBJECTIVE: Patient seen and examined, right outer thigh improved, seems new redness above right knee OBJECTIVE: Vital Signs Period Temp Pulse Resp BP Sys/William Pulse Ox Last 24 Hr 98.0 F-98.4 F 60-65 18-18 118-136/56-84 98 GENERAL: sitting in bed no acute distress, morbidly obese, BMI 40.4 Neck: soft, supple Chest: decreased air entry all over Abdomen:Soft, obese ,NT Extremities: right posterolateral thigh erythema resolving, new areas noted above knee, Right leg with chronic dermatitis findings overall unchanged psych: co-operative Laboratory Results - last 24 hr 06/13/19 06/13/19 05:35 05:35 WBC 4.2 RBC 4.52 Hgb 12.3 Hct 38.3 MCV 84.7 MCH 27.2 MCHC 32.1 RDW 17.1 H Plt Count 141 MPV 8.0 Absolute Neuts (auto) 2.2 Neutrophils % 52.6 Lymphocytes % 29.3 Monocytes % 9.3 Eosinophils % 8.3 H Basophils % 0.5 Nucleated RBC % 0 Sodium 140 Potassium 4.6 Chloride 101 Carbon Dioxide 37 H Anion Gap 3 L BUN 16.9 Creatinine 0.5 L Est GFR (CKD-EPI)AfAm 112.07 Est GFR (CKD-EPI)NonAf 96.69 Random Glucose 107 H Calcium 8.1 L Phosphorus 3.4 Magnesium 2.0 Total Bilirubin 0.5 AST 8 L ALT 14 Alkaline Phosphatase 67 Total Protein 5.2 L Albumin 2.5 L Active Medications Generic Name Dose Route Start Last Admin Trade Name Freq PRN Reason Stop Dose Admin Acetaminophen 650 mg 06/09/19 11:00 06/12/19 19:46 Tylenol - PO 650 mg Q4H PRN Administration PAIN LEVEL 6-10 Apixaban 5 mg 06/08/19 22:00 06/12/19 21:52 Eliquis - PO 5 mg BID BELL Administration Atorvastatin Calcium 10 mg 06/08/19 22:00 06/12/19 21:52 Lipitor - PO 10 mg HS BELL Administration Diltiazem HCl 360 mg 06/11/19 18:00 06/12/19 10:00 Cardizem Cd - PO 360 mg DAILY BE[facility] Administration Gabapentin 400 mg 06/09/19 14:00 06/13/19 05:29 Neurontin - PO 400 mg TID BELL Administration Aztreonam 2 gm/ Dextrose 100 mls @ 100 mls/hr 06/09/19 18:00 06/13/19 01:06 IVPB 100 mls/hr Q8H-IV BELL Administration Protocol Linezolid 600 mg in 300 mls @ 300 mls/hr 06/09/19 16:00 06/13/19 04:17 Zyvox 600 Mg Premix Bag (Restricted To Id) - IVPB 300 mls/hr Q12H BELL Administration Protocol Metoprolol Succinate 50 mg 06/10/19 10:00 06/12/19 21:52 Toprol Xl - PO 50 mg BID BELL Administration Oxycodone HCl 5 mg 06/10/19 14:26 06/12/19 10:37 Roxicodone - PO 5 mg Q6H PRN Administration PAIN LEVEL 7 - 10 Ranitidine HCl 150 mg 06/09/19 11:45 06/12/19 21:52 Zantac - PO 150 mg BID BELL Administration Microbiology 06/08/19 15:32 Blood - Peripheral Venous Blood Culture - Preliminary NO GROWTH OBTAINED AFTER 96 HOURS, INCUBATION TO CONTINUE FOR 1 DAYS. 06/08/19 15:32 Blood - Peripheral Venous Blood Culture - Preliminary NO GROWTH OBTAINED AFTER 96 HOURS, INCUBATION TO CONTINUE FOR 1 DAYS. 06/08/19 17:14 Urine - Urine Clean Catch Urine Culture - Final Klebsiella Pneumoniae ASSESSMENT/PLAN: 74 yof with PMHx of Afib on eliquis, OA, RA, Sjogren's, COPDo n 4L home oxygen, venous stasis dermatitis, VRE, pseudomonas, recurrent RLE cellulitis, admitted with sepsis -Sepsis due to RLE cellulitis -Chronic right leg severe dermatitis -Asymptomatic bacteruria -RA/Sjogrens's -OA -COPD on 4L home oxygen -Afib on eliquis Plan: Afebrile, normal WBC, new erythematous areas over right knee, right thigh findings improved. Aztreonam/linezolid. trial with prednisone 40 mg daily. Needs close dermatology follow up, stressed with patient. ID/vascular surgery input noted, wound care. Continue metoprolol/cardizem. ACEi on hold. Lasix prn. Off IVF. DVTPPX eliquis Dispo on saturday if improved. PT eval, OOB. Interval labs Patient decines SNF Plan discussed with patient and nursing in detail, all questions answered. Visit type - Emergency Visit Emergency Visit: Yes ED Registration Date: 06/08/19 Care time: The patient presented to the Emergency Department on the above date and was hospitalized for further evaluation of their emergent condition. - New Patient This patient is new to me today: No - Critical Care Critical Care patient: No - Discharge Referral Referred to [facility] Med P.C.: No
[2019-06-13] MEDS: APIXABAN 5 MG TABLET PO SCH ×2 (10:01→22:00)
[2019-06-13] MEDS: RANITIDINE HCL 150 MG TABLET (FP) PO SCH ×2 (10:02→21:59)
[2019-06-13] MEDS: predniSONE 20 MG TABLET (UD) PO SCH (10:02)
[2019-06-13] MEDS: ATORVASTATIN CA 10 MG TABLET (FP) PO SCH (21:59)
[2019-06-14] MEDS ORDERED: PT OWN MED DRAWER 7, Y5N ONE ×3 (00:58→16:34)
[2019-06-14] MEDS: AZTREONAM 2 GM in DEXTROSE 5%-WATER 100 ML IVPB SCH ×3 (01:12→17:21)
[2019-06-14] MEDS: LINEZOLID 600 MG PREMIX BAG 600 MG/300 ML BAG IVPB SCH ×2 (04:08→15:56)
[2019-06-14] MEDS: ACETAMINOPHEN 325 MG TABLET (FP) PO PRN (05:50)
[2019-06-14] MEDS: GABAPENTIN 400 MG CAPSULE (FP) PO SCH ×3 (05:52→21:06)
--- NOTE | 2019-06-14 09:27 | PN ---
Physical Exam: SUBJECTIVE: Patient seen and examined, right thigh symptoms imrpoved. No new concerns. OBJECTIVE: Vital Signs Period Temp Pulse Resp BP Sys/William Pulse Ox Last 24 Hr 97.7 F-98.8 F 65-73 18-20 121-147/56-69 97 Intake & Output 06/11/19 06/12/19 06/13/19 06/14/19 23:59 23:59 23:59 23:59 Intake Total 1350 520 680 520 Balance 1350 520 680 520 Weight 258 lb GENERAL: sitting in bed in no acute distress Chest: decreased air entry all over Abdomen:soft, obese, NT Extremities: right poseterolateral thigh erythema resolving, improved erythema above right know, RLE dermatitis changes unchanged CVS:S1S2 regular Psych: appropriate, co-operative Home Medications Medication Instructions Recorded Ascorbate Calcium [Vitamin C] 1,000 mg PO DAILY 08/30/15 Cholecalciferol (Vitamin D3) 1,000 unit PO BID 08/30/15 [Vitamin D3] Cyanocobalamin [Vitamin B12 -] 1,000 mcg PO DAILY 08/30/15 Oxycodone/APAP [Percocet - Must 1 each NR QID PRN 08/30/15 Order Individual Components] Simvastatin 10 mg PO HS 08/30/15 Guaifenesin [Mucinex] 600 mg PO DAILY 06/20/17 Metoprolol Succinate [Toprol XL -] 50 mg PO BID #60 tab.sr 06/25/17 Fish Oil/Borage/Flax/Om3,6,9 1 1 cap PO DAILY 07/12/17 [[place] 3-6-9 1,200 mg Softgel] Diltiazem [Cardizem -] 360 mg PO DAILY 08/29/17 Furosemide [Lasix] 40 mg PO DAILY PRN 08/29/17 Apixaban [Eliquis] 5 mg PO BID 04/22/19 Enalapril Maleate [Vasotec -] 2.5 mg PO DAILY 05/14/19 Gabapentin [Neurontin] 400 mg PO TID 05/14/19 Hydroxychloroquine Sulfate 200 mg PO DAILY 05/14/19 Ranitidine HCl [Zantac] 150 mg PO BID 05/14/19 Linezolid [Zyvox] 600 mg PO BID #14 tablet 05/19/19 predniSONE [Deltasone -] 10 mg PO DAILY #75 tablet 05/19/19 Active Medications Generic Name Dose Route Start Last Admin Trade Name Freq PRN Reason Stop Dose Admin Acetaminophen 650 mg 06/09/19 11:00 06/14/19 05:50 Tylenol - PO 650 mg Q4H PRN Administration PAIN LEVEL 6-10 Apixaban 5 mg 06/08/19 22:00 06/13/19 22:00 Eliquis - PO 5 mg BID BELL Administration Atorvastatin Calcium 10 mg 06/08/19 22:00 06/13/19 21:59 Lipitor - PO 10 mg HS BELL Administration Diltiazem HCl 360 mg 06/11/19 18:00 06/13/19 10:00 Cardizem Cd - PO 360 mg DAILY BELL Administration Gabapentin 400 mg 06/09/19 14:00 06/14/19 05:52 Neurontin - PO 400 mg TID BELL Administration Aztreonam 2 gm/ Dextrose 100 mls @ 100 mls/hr 06/09/19 18:00 06/14/19 01:12 IVPB 100 mls/hr Q8H-IV BELL Administration Protocol Linezolid 600 mg in 300 mls @ 300 mls/hr 06/09/19 16:00 06/14/19 04:08 Zyvox 600 Mg Premix Bag (Restricted To Id) - IVPB 300 mls/hr Q12H BELL Administration Protocol Metoprolol Succinate 50 mg 06/10/19 10:00 06/13/19 21:59 Toprol Xl - PO 50 mg BID BELL Administration Oxycodone HCl 5 mg 06/10/19 14:26 06/12/19 10:37 Roxicodone - PO 5 mg Q6H PRN Administration PAIN LEVEL 7 - 10 Prednisone 40 mg 06/13/19 10:00 06/13/19 10:02 Deltasone - PO 40 mg DAILY BELL Administration Ranitidine HCl 150 mg 06/09/19 11:45 06/13/19 21:59 Zantac - PO 150 mg BID BELL Administration ASSESSMENT/PLAN: 74 yof with PMHx of Afib on eliquis, OA, RA, Sjogren's, COPDo n 4L home oxygen, venous stasis dermatitis, VRE, pseudomonas, recurrent RLE cellulitis, admitted with sepsis -Sepsis due to RLE cellulitis -Chronic right leg severe dermatitis -Asymptomatic bacteruria -RA/Sjogrens's -OA -COPD on 4L home oxygen -Afib on eliquis Plan: Afebrile, normal WBC, Aztreonam/linezolid. Prednisone 40 mg daily started 06/13, rapid taper. Needs close dermatology follow up, stressed with patient. ID/vascular surgery input noted, wound care. Continue metoprolol/cardizem. Resume enalapril. Lasix prn. Off IVF. DVTPPX eliquis Dispo on saturday if improved. PT eval, OOB. Interval labs Patient decines SNF Plan discussed with patient and nursing in detail, all questions answered. Visit type - Emergency Visit Emergency Visit: Yes ED Registration Date: 06/08/19 Care time: The patient presented to the Emergency Department on the above date and was hospitalized for further evaluation of their emergent condition. - New Patient This patient is new to me today: No - Critical Care Critical Care patient: No - Discharge Referral Referred to [facility] No
[2019-06-14] MEDS: predniSONE 20 MG TABLET (UD) PO SCH (10:42)
[2019-06-14] MEDS: RANITIDINE HCL 150 MG TABLET (FP) PO SCH ×2 (10:42→21:06)
[2019-06-14] MEDS: APIXABAN 5 MG TABLET PO SCH ×2 (10:42→21:06)
[2019-06-14] MEDS: ENALAPRIL MALEATE 2.5 MG TABLET (FP) PO SCH (10:45)
[2019-06-14] MEDS: oxyCODONE HCL 5 MG TABLET PO PRN (16:56)
[2019-06-14] MEDS: ATORVASTATIN CA 10 MG TABLET (FP) PO SCH (21:06)
[2019-06-14] MEDS ORDERED: CLOTRIMAZOLE 1% VAGINAL CREAM WITH APPLICATOR 45 GM TUBE VG SCH (22:00)
[2019-06-15] MEDS ORDERED: PT OWN MED DRAWER 7, Y5N ONE ×2 (01:26→08:51)
[2019-06-15] MEDS: AZTREONAM 2 GM in DEXTROSE 5%-WATER 100 ML IVPB SCH ×2 (01:28→09:06)
[2019-06-15] MEDS: LINEZOLID 600 MG PREMIX BAG 600 MG/300 ML BAG IVPB SCH ×2 (03:24→15:09)
[2019-06-15] MEDS: GABAPENTIN 400 MG CAPSULE (FP) PO SCH ×3 (05:47→21:55)
[2019-06-15 06:43] LABS: BLOOD UREA NITROGEN 17.4 mg/dL (7-18); CALCIUM 8.3 mg/dL (8.5-10.1); CREATININE 0.4 mg/dL (0.55-1.3); POTASSIUM 4.7 mmol/L (3.5-5.1)
[2019-06-15 06:57] LABS: BASO % 0.3 % (0-2.0); EOS % 1.3 % (0-4.5); HEMATOCRIT 37.2 % (32.4-45.2); LYMPH % 22.3 % (8-40); MCH 27.5 pg (25.7-33.7); MCHC 32.2 g/dl (32.0-36.0); MEAN CELL VOLUME 85.5 fl (80-96); MEAN PLT VOLUME 7.9 fl (7.5-11.1); MONO % 6.3 % (3.8-10.2); NEUT % 69.8 % (42.8-82.8); PLATELET COUNT 155 K/MM3 (134-434); RBC 4.35 M/mm3 (3.60-5.2); RDW 17.3 % (11.6-15.6); WHITE BLOOD COUNT 5.1 K/mm3 (4.0-10.0)
[2019-06-15] MEDS ORDERED: diphenhydrAMINE HCL 25 MG CAPSULE (FP) PO PRN (07:59)
[2019-06-15] MEDS: predniSONE 20 MG TABLET (UD) PO SCH (09:05)
[2019-06-15] MEDS: RANITIDINE HCL 150 MG TABLET (FP) PO SCH ×2 (09:05→21:55)
[2019-06-15] MEDS: ENALAPRIL MALEATE 2.5 MG TABLET (FP) PO SCH (09:05)
[2019-06-15] MEDS: APIXABAN 5 MG TABLET PO SCH ×2 (09:08→21:55)
--- NOTE | 2019-06-15 15:04 | PN ---
Physical Exam: SUBJECTIVE: Patient seen and examined, right thigh symptoms improved, no complaints. OBJECTIVE: Vital Signs Period Temp Pulse Resp BP Sys/William Pulse Ox Last 24 Hr 97.3 F-98.2 F 62-76 18-20 111-130/44-75 97-97 GENERAL: sitting in bed in no acute distress Chest: decreased air entry all over Abdomen:soft, obese, NT Extremities: right poseterolateral thigh erythema resolving, improved erythema above right know, RLE dermatitis changes unchanged CVS:S1S2 regular Psych: appropriate, co-operative Laboratory Results - last 24 hr 06/15/19 06/15/19 05:15 05:15 WBC 5.1 RBC 4.35 Hgb 12.0 Hct 37.2 MCV 85.5 MCH 27.5 MCHC 32.2 RDW 17.3 H Plt Count 155 MPV 7.9 Absolute Neuts (auto) 3.5 Neutrophils % 69.8 D Lymphocytes % 22.3 D Monocytes % 6.3 Eosinophils % 1.3 D Basophils % 0.3 Nucleated RBC % 0 Sodium 140 Potassium 4.7 Chloride 100 Carbon Dioxide 38 H Anion Gap 2 L BUN 17.4 Creatinine 0.4 L Est GFR (CKD-EPI)AfAm 120.60 Est GFR (CKD-EPI)NonAf 104.06 Random Glucose 98 Calcium 8.3 L Active Medications Generic Name Dose Route Start Last Admin Trade Name Freq PRN Reason Stop Dose Admin Acetaminophen 650 mg 06/09/19 11:00 06/14/19 05:50 Tylenol - PO 650 mg Q4H PRN Administration PAIN LEVEL 6-10 Apixaban 5 mg 06/08/19 22:00 06/15/19 09:08 Eliquis - PO 5 mg BID BELL Administration Atorvastatin Calcium 10 mg 06/08/19 22:00 06/14/19 21:06 Lipitor - PO 10 mg HS BELL Administration Diltiazem HCl 360 mg 06/11/19 18:00 06/15/19 09:05 Cardizem Cd - PO 360 mg DAILY BELL Administration Diphenhydramine HCl 25 mg 06/15/19 07:59 06/15/19 09:05 Benadryl - PO 25 mg Q6H PRN Administration FOR ITCHING Enalapril Maleate 2.5 mg 06/14/19 10:00 06/15/19 09:05 Vasotec - PO 2.5 mg DAILY BELL Administration Gabapentin 400 mg 06/09/19 14:00 06/15/19 05:47 Neurontin - PO 400 mg TID BELL Administration Aztreonam 2 gm/ Dextrose 100 mls @ 100 mls/hr 06/09/19 18:00 06/15/19 09:06 IVPB 100 mls/hr Q8H-IV BELL Administration Protocol Linezolid 600 mg in 300 mls @ 300 mls/hr 06/09/19 16:00 06/15/19 03:24 Zyvox 600 Mg Premix Bag (Restricted To Id) - IVPB 300 mls/hr Q12H BELL Administration Protocol Metoprolol Succinate 50 mg 06/10/19 10:00 06/15/19 09:05 Toprol Xl - PO 50 mg BID BELL Administration Nystatin 1 applic 06/15/19 14:00 Nystop Powder - TP TID BELL Oxycodone HCl 5 mg 06/10/19 14:26 06/14/19 16:56 Roxicodone - PO 5 mg Q6H PRN Administration PAIN LEVEL 7 - 10 Prednisone 40 mg 06/13/19 10:00 06/15/19 09:05 Deltasone - PO 40 mg DAILY BELL Administration Ranitidine HCl 150 mg 06/09/19 11:45 06/15/19 09:05 Zantac - PO 150 mg BID BELL Administration ASSESSMENT/PLAN: 74 yof with PMHx of Afib on eliquis, OA, RA, Sjogren's, COPDo n 4L home oxygen, venous stasis dermatitis, VRE, pseudomonas, recurrent RLE cellulitis, admitted with sepsis -Sepsis due to RLE cellulitis -Chronic right leg severe dermatitis -Asymptomatic bacteruria -RA/Sjogrens's -OA -COPD on 4L home oxygen -Afib on eliquis -vaginal itching Plan: Afebrile, normal WBC, Aztreonam/linezolid. Prednisone 40 mg daily started 06/13, improved. Rapid taper. Needs close dermatology follow up, stressed with patient. Clotrimazole ointment. ID/vascular surgery input noted, wound care. Continue metoprolol/cardizem. Resume enalapril. Lasix prn. Off IVF. DVTPPX eliquis Dispo tomorrow on ?linezolid and Prednisone taper if improved. PT eval, OOB. Interval labs Patient decines SNF Plan discussed with patient and nursing in detail, all questions answered. Visit type - Emergency Visit Emergency Visit: Yes ED Registration Date: 06/08/19 Care time: The patient presented to the Emergency Department on the above date and was hospitalized for further evaluation of their emergent condition. - New Patient This patient is new to me today: No - Critical Care Critical Care patient: No - Discharge Referral Referred to [facility] No
[2019-06-15] MEDS: NYSTATIN POWDER 100,000 UNITS/GM - 15 GM TOPICAL POWDER TP SCH ×2 (15:09→22:52)
--- NOTE | 2019-06-15 16:20 | PN ---
Progress Note, Physician History of Present Illness: AWAKE, ALERT SEATED IN BED NO C/O THIGH PAIN NO FEVER/ CHILLS NO URINARY TRACT SYMPTOMS AFEBRILE - Current Medication List Current Medications: Active Medications Acetaminophen (Tylenol -) 650 mg PO Q4H PRN PRN Reason: PAIN LEVEL 6-10 Last Admin: 06/14/19 05:50 Dose: 650 mg Apixaban (Eliquis -) 5 mg PO BID [facility] Last Admin: 06/15/19 09:08 Dose: 5 mg Atorvastatin Calcium (Lipitor -) 10 mg PO HS [facility] Last Admin: 06/14/19 21:06 Dose: 10 mg Diltiazem HCl (Cardizem Cd -) 360 mg PO DAILY [facility] Last Admin: 06/15/19 09:05 Dose: 360 mg Diphenhydramine HCl (Benadryl -) 25 mg PO Q6H PRN PRN Reason: FOR ITCHING Last Admin: 06/15/19 09:05 Dose: 25 mg Enalapril Maleate (Vasotec -) 2.5 mg PO DAILY [facility] Last Admin: 06/15/19 09:05 Dose: 2.5 mg Gabapentin (Neurontin -) 400 mg PO TID [facility] Last Admin: 06/15/19 15:09 Dose: 400 mg Aztreonam 2 gm/ Dextrose 100 mls @ 100 mls/hr IVPB Q8H-IV BELL; Protocol Last Admin: 06/15/19 09:06 Dose: 100 mls/hr Linezolid (Zyvox 600 Mg Premix Bag (Restricted To Id) -) 600 mg in 300 mls @ 300 mls/hr IVPB Q12H BELL; Protocol Last Admin: 06/15/19 15:09 Dose: 300 mls/hr Metoprolol Succinate (Toprol Xl -) 50 mg PO BID [facility] Last Admin: 06/15/19 09:05 Dose: 50 mg Nystatin (Nystop Powder -) 1 applic TP TID [facility] Last Admin: 06/15/19 15:09 Dose: 1 applic Oxycodone HCl (Roxicodone -) 5 mg PO Q6H PRN PRN Reason: PAIN LEVEL 7 - 10 Last Admin: 06/14/19 16:56 Dose: 5 mg Prednisone (Deltasone -) 40 mg PO DAILY [facility] Last Admin: 06/15/19 09:05 Dose: 40 mg Ranitidine HCl (Zantac -) 150 mg PO BID BELL Last Admin: 06/15/19 09:05 Dose: 150 mg - Objective Vital Signs: Vital Signs Temperature 97.9 F 06/15/19 15:16 Pulse Rate 73 06/15/19 15:16 Respiratory Rate 20 06/15/19 15:16 Blood Pressure 122/80 06/15/19 15:16 O2 Sat by Pulse Oximetry (%) 97 06/15/19 09:00 Constitutional: Yes: No Distress Eyes: Yes: Conjunctiva Clear Cardiovascular: Yes: Regular Rate and Rhythm, S1, S2 Respiratory: Yes: CTA Bilaterally Gastrointestinal: Yes: Normal Bowel Sounds, Soft. No: Tenderness Integumentary: Yes: Venous Stasis Changes, Other (ERYTHEMA R THIGH/HIP NEARLY ALL RESOLVED) Labs: CBC, BMP 06/15/19 05:15 06/15/19 05:15 INR, PTT INR 1.33 (0.83-1.09) H 06/08/19 15:32 Assessment/Plan RECURRENT LE CELLULITIS, NOW R THIGH (NEW) ALMOST RESOLVED FEVER/ LEUKOCYTOSIS- IMPROVED THROMBOCYTOPENIA- RESOLVED ASYMPTOMATIC BACTERURIA MULTIPLE ANTIBIOTIC ALLERGIES HX MDRO SWITCH TO PO LINEZOLID 600MG BID X 3D IN AM
[2019-06-15] MEDS: ATORVASTATIN CA 10 MG TABLET (FP) PO SCH (21:55)
[2019-06-15] MEDS: ACETAMINOPHEN 325 MG TABLET (FP) PO PRN (21:55)
[2019-06-15] MEDS ORDERED: CLOTRIMAZOLE 1% VAGINAL CREAM WITH APPLICATOR 45 GM TUBE VG SCH (23:00)
[2019-06-16] MEDS: LINEZOLID 600 MG PREMIX BAG 600 MG/300 ML BAG IVPB SCH (04:09)
[2019-06-16] MEDS: GABAPENTIN 400 MG CAPSULE (FP) PO SCH (05:53)
[2019-06-16] MEDS: NYSTATIN POWDER 100,000 UNITS/GM - 15 GM TOPICAL POWDER TP SCH (05:53)
[2019-06-16 06:09] LABS: BASO % 0.3 % (0-2.0); EOS % 1.1 % (0-4.5); HEMATOCRIT 37.1 % (32.4-45.2); HEMOGLOBIN 11.8 GM/dL (10.7-15.3); LYMPH % 26.5 % (8-40); MCH 27.3 pg (25.7-33.7); MEAN CELL VOLUME 85.3 fl (80-96); MEAN PLT VOLUME 7.3 fl (7.5-11.1); MONO % 7.8 % (3.8-10.2); NEUT % 64.3 % (42.8-82.8); PLATELET COUNT 161 K/MM3 (134-434); RBC 4.35 M/mm3 (3.60-5.2); RDW 17.7 % (11.6-15.6); WHITE BLOOD COUNT 4.7 K/mm3 (4.0-10.0)
[2019-06-16] MEDS: APIXABAN 5 MG TABLET PO SCH (09:28)
[2019-06-16] MEDS: ENALAPRIL MALEATE 2.5 MG TABLET (FP) PO SCH (09:28)
[2019-06-16] MEDS: predniSONE 20 MG TABLET (UD) PO SCH (09:28)
[2019-06-16] MEDS: RANITIDINE HCL 150 MG TABLET (FP) PO SCH (09:28)
[2019-06-16 10:35] VITALS: BP 111/49; PULSE 69; TEMP 97.5
--- NOTE | 2019-06-16 12:20 | DS ---
Physical Exam: SUBJECTIVE: Patient seen and examined, right leg symptoms improved. No fevers, chills or concerns. OBJECTIVE: Vital Signs Period Temp Pulse Resp BP Sys/William Pulse Ox Last 24 Hr 97.3 F-97.9 F 53-76 18-20 111-134/49-80 96-98 PHYSICAL EXAM GENERAL: sitting in bed in no acute distress Chest: decreased air entry all over Abdomen:soft, obese, NT Extremities: right poseterolateral thigh erythema almost resolved,minimal erythema above right knee, improved, RLE dermatitis changes unchanged CVS:S1S2 regular Psych: appropriate, co-operative LABS Laboratory Results - last 24 hr 06/16/19 05:15 WBC 4.7 RBC 4.35 Hgb 11.8 Hct 37.1 MCV 85.3 MCH 27.3 MCHC 32.0 RDW 17.7 H Plt Count 161 MPV 7.3 L Absolute Neuts (auto) 3.0 Neutrophils % 64.3 Lymphocytes % 26.5 Monocytes % 7.8 Eosinophils % 1.1 Basophils % 0.3 Nucleated RBC % 0 Microbiology 06/08/19 15:32 Blood - Peripheral Venous Blood Culture - Final NO GROWTH AFTER 5 DAYS INCUBATION 06/08/19 15:32 Blood - Peripheral Venous Blood Culture - Final NO GROWTH AFTER 5 DAYS INCUBATION 06/08/19 17:14 Urine - Urine Clean Catch Urine Culture - Final Klebsiella Pneumoniae HOSPITAL COURSE: Date of Admission:06/08/19 Date of Discharge: 06/16/19 Minutes to complete discharge: 40 Discharge Summary Reason For Visit: URINARY TRACT INFECTION,CELLULITIS,SEPSIS Hospital Course: 74 yof with PMHx of Afib on eliquis, OA, RA, Sjogren's, COPDo n 4L home oxygen, venous stasis dermatitis, VRE, pseudomonas, recurrent RLE cellulitis, admitted with sepsis and right thigh cellulitis. She was seen by infectious disease and started on aztreonam and linezolid. Given slow improvement with new erythematous areas above right knee, she was placed on prednisone with marked improved. Her leucocytosis resolved and she was afebrile. Given recurrent admissions and improvement with antibiotics/steroids, she is strongly encouraged for dermatology follow up outpatient. She will be discharged in stable condition on 7 days of linezolid and prednisone taper. Condition: Stable - Instructions Diet, Activity, Other Instructions: You were admitted with leg infection and treated with antibiotics and steroids. You were seen by infectious disease. MEDICATIONS: Linezolid antibiotic for 7 days Nystatin powder to affected groin areas as needed Prednisone taper as follows: 40 mg daily for 3 days, then 30 mg daily for 3 days, then 20 mg daily for 3 days, then 10 mg daily for 3 days, then off INSTRUCTIONS: It is very important that you follow up with your pump attendant. FOLLOW UP: With Dr. Boykin in [address] Hernandez in 1-2 weeks If you notice fevers, chills, worsening redness or any new concerns, please call 911 or come to ED Referrals: Jillian Hernandez MD [Staff Physician] - Mike Boykin MD [Primary Care Provider] - Disposition: VNS/HOME HEALTH CARE - Home Medications Comprehensive Discharge Medication List: Ambulatory Orders Ascorbate Calcium [Vitamin C] 1,000 mg PO DAILY 08/30/15 Cholecalciferol (Vitamin D3) [Vitamin D3] 1,000 unit PO BID 08/30/15 Cyanocobalamin [Vitamin B12 -] 1,000 mcg PO DAILY 08/30/15 Oxycodone/APAP [Percocet - Must Order Individual Components] 1 each NR QID PRN 08/30/15 Simvastatin 10 mg PO HS 08/30/15 Guaifenesin [Mucinex] 600 mg PO DAILY 06/20/17 Metoprolol Succinate [Toprol XL -] 50 mg PO BID #60 tab.sr 06/25/17 Fish Oil/Borage/Flax/Om3,6,9 1 [[place] 3-6-9 1,200 mg Softgel] 1 cap PO DAILY Diltiazem [Cardizem -] 360 mg PO DAILY 08/29/17 Furosemide [Lasix] 40 mg PO DAILY PRN 08/29/17 Apixaban [Eliquis] 5 mg PO BID 04/22/19 Enalapril Maleate [Vasotec -] 2.5 mg PO DAILY 05/14/19 Gabapentin [Neurontin] 400 mg PO TID 05/14/19 Hydroxychloroquine Sulfate 200 mg PO DAILY 05/14/19 Ranitidine HCl [Zantac] 150 mg PO BID 05/14/19 Linezolid [Zyvox] 600 mg PO BID #14 tablet 06/16/19 Nystatin Powder [Nystop Powder -] 1 applic TP TID PRN #1 applic 06/16/19 predniSONE [Deltasone -] See Taper PO DAILY #30 tablet 06/16/19 This patient is new to me today: No Emergency Visit: Yes ED Registration Date: 06/08/19 Care time: The patient presented to the Emergency Department on the above date and was hospitalized for further evaluation of their emergent condition. Critical Care patient: No - Discharge Referral Referred to [facility] No
== END 2019-06-16 11:38 | disposition home health service (06) | DRG 872 ==
LOC: JER 13:34 → JERBED 19:21 → J4S 06-09 23:17
PROVIDERS: ADMIT Internal Medicine; ATTEND Hospitalist
DX: A41.50 Gram-negative sepsis, unspecified (principal); J96.11 Chronic respiratory failure with hypoxia; L03.115 Cellulitis of right lower limb; Z68.41 Body mass index [BMI] 40.0-44.9, adult; Q87.1 Congenital malformation syndromes predominantly associated with short stature; N39.0 Urinary tract infection, site not specified; D69.6 Thrombocytopenia, unspecified; E66.01 Morbid (severe) obesity due to excess calories; J44.9 Chronic obstructive pulmonary disease, unspecified; I10 Essential (primary) hypertension; M06.9 Rheumatoid arthritis, unspecified; G47.33 Obstructive sleep apnea (adult) (pediatric); E78.5 Hyperlipidemia, unspecified; L30.9 Dermatitis, unspecified; I95.9 Hypotension, unspecified; B95.62 Methicillin resistant Staphylococcus aureus infection as the cause of diseases classified elsewhere; I48.2 Chronic atrial fibrillation; D72.829 Elevated white blood cell count, unspecified
CPT/HCPCS: 36415; 71045-TC-FY; 73552-TC-RT-FY; 73590-TC-RT-FY; 73630-TC-RT-FY; 80048; 80053; 81003; 82550; 82803; 83605; 83735; 84100; 84484; 85025; 85027; 85610; 85730; 87040; 87077; 87086; 87186; 93005; 93010; 93971-TC; 97116-GP; 97162-GP; 99285-25

== ENCOUNTER 2019-06-22 14:17 | Inpatient (IN) | payer OTHER, MEDICARE ==
[2019-06-22 14:31] VITALS: BMI 40.7
[2019-06-22 15:53] LABS: BASO % 0.2 % (0-2.0); EOS % 0.3 % (0-4.5); HEMATOCRIT 39.4 % (32.4-45.2); HEMOGLOBIN 12.7 GM/dL (10.7-15.3); LYMPH % 3.9 % (8-40); MCH 27.7 pg (25.7-33.7); MCHC 32.3 g/dl (32.0-36.0); MEAN CELL VOLUME 85.8 fl (80-96); MONO % 4.4 % (3.8-10.2); NEUT % 91.2 % (42.8-82.8); PLATELET COUNT 160 K/MM3 (134-434); RBC 4.59 M/mm3 (3.60-5.2); RDW 18.6 % (11.6-15.6); WHITE BLOOD COUNT 8.9 K/mm3 (4.0-10.0)
[2019-06-22 16:03] LABS: INR 1.26 (0.83-1.09); PROTHROMBIN TIME (PATIENT) 14.9 SEC (9.7-13.0)
[2019-06-22 16:11] LABS: ACTIVATED PTT 35.6 SECONDS (25.2-36.5)
[2019-06-22 16:12] LABS: URINE APPEARANCE CLEAR; URINE BILIRUBIN NEGATIVE (NEGATIVE); URINE COLOR YELLOW; URINE GLUCOSE (UA) NEGATIVE (NEGATIVE); URINE KETONE NEGATIVE (NEGATIVE); URINE LEUK ESTERASE NEGATIVE (NEGATIVE); URINE NITRITE NEGATIVE (NEGATIVE); URINE PROTEIN NEGATIVE (NEGATIVE)
[2019-06-22 16:24] LABS: ALBUMIN 2.6 g/dl (3.4-5.0); BILIRUBIN,TOTAL 0.5 mg/dL (0.2-1); BLOOD UREA NITROGEN 20.9 mg/dL (7-18); CALCIUM 8.4 mg/dL (8.5-10.1); CREATININE 0.4 mg/dL (0.55-1.3); POTASSIUM 5.4 mmol/L (3.5-5.1); TOT PROT 5.8 g/dl (6.4-8.2)
[2019-06-22 16:30] LABS: VENOUS PC02 57.2 mmHg (41-51); VENOUS PH 7.41 (7.31-7.41); VENOUS PO2 81.7 mmHg (30-40)
[2019-06-22] MEDS ORDERED: DAPTOMYCIN 500 MG in SODIUM CHLORIDE 50 ML IVPB ONE (16:49)
[2019-06-22] MEDS ORDERED: AZTREONAM 2 GM in DEXTROSE 5%-WATER 100 ML IVPB ONE (16:50)
[2019-06-22 16:53] LABS: PLATELET ESTIMATE ADEQUATE
--- NOTE | 2019-06-22 17:02 | PDOC ---
History of Present Illness - General Chief Complaint: Redness To Affected Area Stated Complaint: EDEMA Time Seen by Provider: 06/22/19 15:27 History Source: Patient, Old Records Exam Limitations: No Limitations - History of Present Illness Initial Comments: HPI: 74 y/o female presenting to [facility] ER complaining of warmth and redness to lower right abdomen and thigh worsening for the past two days. Endorses subjective fever this morning, which improved with PO Tylenol. Pt was recently discharged on 16 June 2019 for right thigh cellulitis. Treated with Linezolid, Aztreonam, and Prednisone. Discharged on Linezolid and Prednisone. States her symptoms were improving after the admission before sharply worsening. Pt has a h/o of poorly hearing right leg wound and venous stasis dermatitis; followed by Dr. Gonzalez. Medical Hx: - Afib on Eliquis - OA - RA - Sjogren's Syndrome - COPD on 4L home oxygen - Venous stasis dermatitis - VRE, pseudomonas - Recurrent RLE cellulitis Review of Systems: In addition to that documented in the HPI above, the additional ROS was obtained : Constitutional: Endorses fevers. Denies chills Head: Denies vision changes ENMT: Denies sore throat CV: Denies chest pain Resp: Denies SOB GI: Denies vomiting or diarrhea : Denies painful urination MSK: Denies recent trauma Skin: Per HPI Neuro: Denies new numbness or tingling or weakness Endocrine: Denies polyuria Heme: Denies bleeding or bruising Physical Examination: Constitutional: Nontoxic elderly adult female in no acute distress or obvious discomfort. Morbidly obese body habitus. Found semi-fowlers on hospital bed. Alert and oriented x4. Answered all questions appropriately and completely. Speech was non-labored, non-pressured. Cardiovascular / Chest: Regular rate and regular rhythm. No murmur, rubs, clicks , or gallops. Peripheral pulses: radial pulses full. Respiratory: Breathing unlabored. Equal chest rise and fall. Clear to auscultation bilaterally. No stridor, no wheezing, no rhonchi. Gastrointestinal: abdomen exam limited by large pannus. Warmth, erythema, and induration noted to lower right quadrant/edge of pannus. No fluctuance, weeping or purulent discharge. soft, non-tender, non-distended. Neuro: Alert and oriented. Moving all four extremities spontaneously. Skin: Abdominal integumentary as described above. Warmth and redness to right with dry scaly skin above. No weeping, purulence, induration, or fluctuance. Psych: Affect: appropriate. Mood: normal. MDM: *Reviewed vital signs, nursing notes, and prior visit documentation (if available). 74 y/o female returning for worsening abdominal cellulitis. Borderline febrile but pt took Tylenol prior to arrival. Vitals unremarkable for hypotension or tachycardia. Physical exam as described above. Suspect possible cellulitis that failed outpatient PO therapy. CBC unremarkable for leukocytosis. Lactic acid not elevated. Low suspicion for sepsis. Telephone discussion with Dr. Fraga. Verbally appraised of the pts HPI, ED course, and current plan of management. Suggested Daptoymcin dosed with adjusted body weight and Aztreonam for empiric coverage. In person discussion with Dr. Griffith. Verbally appraised of the pts HPI, ED course, and current plan of management. Will admit pt to med/surg. No additional orders requested. Mike Otoole M.D., PGY2 Emergency Medicine Resident Past History - Past Medical History Allergies/Adverse Reactions: Allergies Allergy/AdvReac Type Severity Reaction Status Date / Time Penicillins Allergy Severe Swelling Verified 06/22/19 14:26 clindamycin Allergy Mild Rash Verified 06/22/19 14:26 doxycycline Allergy Swelling Verified 06/22/19 14:26 levofloxacin [From Levaquin] Allergy Rash Verified 06/22/19 14:26 vancomycin AdvReac Mild Itching Verified 06/22/19 14:26 adhesive tape AdvReac "RIPS MY Verified 06/22/19 14:26 SKIN" Home Medications: Ambulatory Orders Ascorbate Calcium [Vitamin C] 1,000 mg PO DAILY 08/30/15 Cholecalciferol (Vitamin D3) [Vitamin D3] 1,000 unit PO BID 08/30/15 Cyanocobalamin [Vitamin B12 -] 1,000 mcg PO DAILY 08/30/15 Oxycodone/APAP [Percocet - Must Order Individual Components] 1 each NR QID PRN 08/30/15 Simvastatin 10 mg PO HS 08/30/15 Guaifenesin [Mucinex] 600 mg PO DAILY 06/20/17 Metoprolol Succinate [Toprol XL -] 50 mg PO BID #60 tab.sr 06/25/17 Fish Oil/Borage/Flax/Om3,6,9 1 [[place] 3-6-9 1,200 mg Softgel] 1 cap PO DAILY Diltiazem [Cardizem -] 360 mg PO DAILY 08/29/17 Furosemide [Lasix] 40 mg PO DAILY PRN 08/29/17 Apixaban [Eliquis] 5 mg PO BID 04/22/19 Enalapril Maleate [Vasotec -] 2.5 mg PO DAILY 05/14/19 Gabapentin [Neurontin] 400 mg PO TID 05/14/19 Hydroxychloroquine Sulfate 200 mg PO DAILY 05/14/19 Ranitidine HCl [Zantac] 150 mg PO BID 05/14/19 Linezolid [Zyvox] 600 mg PO BID #14 tablet 06/16/19 Nystatin Powder [Nystop Powder -] 1 applic TP TID PRN #1 applic 06/16/19 predniSONE [Deltasone -] See Taper PO DAILY #30 tablet 06/16/19 Anemia: No Asthma: No Cancer: No Cardiac Disorders: Yes (ATRIAL FIBRILLATION) CVA: No COPD: Yes CHF: Yes Dementia: No Diabetes: No GI Disorders: No Disorders: No HTN: Yes Hypercholesterolemia: Yes Liver Disease: No Seizures: No Thyroid Disease: Yes (LEFT THYROID LUMP) - Surgical History Abdominal Surgery: No Appendectomy: No Cardiac Surgery: No Cholecystectomy: No Lung Surgery: No Neurologic Surgery: No Orthopedic Surgery: Yes (BILATERAL KNEE REPLACEMENT) - Immunization History Immunization Up to Date: No - Suicide/Smoking/Psychosocial Hx Smoking History: Unknown if ever smoked Have you smoked in the past 12 months: No Number of Cigarettes Smoked Daily: 0 If you are a former smoker, when did you quit?: 1985 Cigars Per Day: 0 'Breaking Loose' booklet given: 08/30/17 Hx Alcohol Use: No Drug/Substance Use Hx: No Substance Use Type: None Hx Substance Use Treatment: No *Physical Exam - Vital Signs Last Vital Signs Temp Pulse Resp BP Pulse Ox 100.2 F H 90 20 139/62 92 L 06/22/19 14:26 06/22/19 14:26 06/22/19 14:26 06/22/19 14:26 06/22/19 16:07 ED Treatment Course - LABORATORY CBC & Chemistry Diagram: 06/22/19 15:25 06/22/19 15:25 - ADDITIONAL ORDERS Additional order review: Laboratory Results 06/22/19 06/22/19 06/22/19 16:13 15:54 15:25 PT with INR INR PTT (Actin FS) VBG pH 7.41 POC VBG pCO2 57.2 H POC VBG pO2 81.7 H VBG HCO3 35.8 H VBG O2 Sat (Franny) 96.4 H VBG Base Excess 9.6 H Sodium Potassium Chloride Carbon Dioxide Anion Gap BUN Creatinine Est GFR (CKD-EPI)AfAm Est GFR (CKD-EPI)NonAf Random Glucose Lactic Acid 1.0 Calcium Total Bilirubin AST ALT Alkaline Phosphatase Troponin I Total Protein Albumin Urine Color Yellow Urine Appearance Clear Urine pH 7.0 D Ur Specific [place] 1.020 Urine Protein Negative Urine Glucose (UA) Negative Urine Ketones Negative Urine Blood Negative Urine Nitrite Negative Urine Bilirubin Negative Urine Urobilinogen 2.0 H Ur Leukocyte Esterase Negative 06/22/19 06/22/19 06/22/19 15:25 15:25 15:25 PT with INR 14.90 H INR 1.26 H PTT (Actin FS) 35.6 VBG pH POC VBG pCO2 POC VBG pO2 VBG HCO3 VBG O2 Sat (Franny) VBG Base Excess Sodium 140 Potassium 5.4 H Chloride 98 Carbon Dioxide 38 H Anion Gap 3 L BUN 20.9 H Creatinine 0.4 L Est GFR (CKD-EPI)AfAm 120.60 Est GFR (CKD-EPI)NonAf 104.06 Random Glucose 129 H Lactic Acid Calcium 8.4 L Total Bilirubin 0.5 AST 22 ALT 29 Alkaline Phosphatase 93 Troponin I < 0.02 Total Protein 5.8 L Albumin 2.6 L Urine Color Urine Appearance Urine pH Ur Specific [place] Urine Protein Urine Glucose (UA) Urine Ketones Urine Blood Urine Nitrite Urine Bilirubin Urine Urobilinogen Ur Leukocyte Esterase 06/22/19 15:25 RBC 4.59 MCV 85.8 MCHC 32.3 RDW 18.6 H MPV 8.0 Neutrophils % 91.2 H D Lymphocytes % 3.9 L D Monocytes % 4.4 Eosinophils % 0.3 Basophils % 0.2 *DC/Admit/Observation/Transfer Diagnosis at time of Disposition: Cellulitis Qualifiers: Site of cellulitis: trunk Site of cellulitis of trunk: abdominal wall Qualified Code(s): L03.311 - Cellulitis of abdominal wall - Discharge Dispostion Condition at time of disposition: Stable Decision to Admit order: Yes - Referrals - Patient Instructions - Post Discharge Activity
[2019-06-22] MEDS ORDERED: NYSTATIN POWDER 100,000 UNITS/GM - 15 GM TOPICAL POWDER TP PRN (17:33)
--- NOTE | 2019-06-22 17:59 | HP ---
Admitting History and Physical - Primary Care Physician PCP: Mike Boykin - Admission Chief Complaint: My skin is getting worse History of Present Illness: Mrs Torres is a pleasant 74 year old female who comes in with fevers and worsening erythema today. She was recently discharged on 06/16 after being treated for cellulitis extending from her R foot up to her abdomen. She was treated and discharged home on a 7 day course of linezolid and a 12 day prednisone taper. However it appears she may have misunderstood the taper and finished the course in 6 days instead of 12 days. This morning she noted that she was feeling feverish with chills and took tylenol. She noted that the redness had returned and is worsened and she also had a hardness in her right abdomen. She came in for further evaluation. Aside from the redness and the fevers she is without complaint. She denies lightheadedness, dizziness, chest pain, shortness of breath, coughing, nausea, vomiting, diarrhea, constipation, difficulty or pain on urination, or worsening swelling than normal. She feels that her legs, which are her normal complaint, are well controlled today. History Source: Patient Limitations to Obtaining History: No Limitations - Past Medical History Cardiovascular: Yes: AFIB, HTN, Other (h/o DVT) Pulmonary: Yes: COPD, Sleep Apnea Hepatobiliary: Yes: Other (fatty liver disease) Heme/Onc: Yes: Anemia Musculoskeletal: Yes: Chronic low back pain (/spinal stenosis) Rheumatology: Yes: Rheumatoid Arthritis Endocrine: Yes: Osteopenia, Other (obesity, thyroid nodule) - Past Surgical History Past Surgical History: Yes: Joint Replacement (right knee over 10 years ago) - Smoking History Smoking history: Unknown if ever smoked Have you smoked in the past 12 months: No Aproximately how many cigarettes per day: 0 If you are a former smoker, when did you quit?: 1984 - Alcohol/Substance Use Hx Alcohol Use: No History of Substance Use: reports: None - Social History Usual Living Arrangement: Yes: With Spouse ADL: Support Services History of Recent Travel: No Home Medications - Allergies Allergies/Adverse Reactions: Allergies Allergy/AdvReac Type Severity Reaction Status Date / Time Penicillins Allergy Severe Swelling Verified 06/22/19 14:26 clindamycin Allergy Mild Rash Verified 06/22/19 14:26 doxycycline Allergy Swelling Verified 06/22/19 14:26 levofloxacin [From Levaquin] Allergy Rash Verified 06/22/19 14:26 vancomycin AdvReac Mild Itching Verified 06/22/19 14:26 adhesive tape AdvReac "RIPS MY Verified 06/22/19 14:26 SKIN" - Home Medications Home Medications: Ambulatory Orders Ascorbate Calcium [Vitamin C] 1,000 mg PO DAILY 08/30/15 Cholecalciferol (Vitamin D3) [Vitamin D3] 1,000 unit PO BID 08/30/15 Cyanocobalamin [Vitamin B12 -] 1,000 mcg PO DAILY 08/30/15 Oxycodone/APAP [Percocet - Must Order Individual Components] 1 each NR QID PRN 08/30/15 Simvastatin 10 mg PO HS 08/30/15 Guaifenesin [Mucinex] 600 mg PO DAILY 06/20/17 Metoprolol Succinate [Toprol XL -] 50 mg PO BID #60 tab.sr 06/25/17 Fish Oil/Borage/Flax/Om3,6,9 1 [[place] 3-6-9 1,200 mg Softgel] 1 cap PO DAILY Diltiazem [Cardizem -] 360 mg PO DAILY 08/29/17 Furosemide [Lasix] 40 mg PO DAILY PRN 08/29/17 Apixaban [Eliquis] 5 mg PO BID 04/22/19 Enalapril Maleate [Vasotec -] 2.5 mg PO DAILY 05/14/19 Gabapentin [Neurontin] 400 mg PO TID 05/14/19 Hydroxychloroquine Sulfate 200 mg PO DAILY 05/14/19 Ranitidine HCl [Zantac] 150 mg PO BID 05/14/19 Linezolid [Zyvox] 600 mg PO BID #14 tablet 06/16/19 Nystatin Powder [Nystop Powder -] 1 applic TP TID PRN #1 applic 06/16/19 predniSONE [Deltasone -] See Taper PO DAILY #30 tablet 06/16/19 Family Disease History - Family Disease History Family Disease History: Other: Father (alcohol abuse), Mother (rheumatoid arthritis) Review of Systems Findings/Remarks: Full review of systems obtained, as per HPI and otherwise negative Physical Examination Vital Signs: Vital Signs Temperature 37.9 C H 06/22/19 14:26 Pulse Rate 90 06/22/19 14:26 Respiratory Rate 20 06/22/19 14:26 Blood Pressure 139/62 06/22/19 14:26 O2 Sat by Pulse Oximetry (%) 92 L 06/22/19 16:07 Constitutional: Yes: No Distress, Calm, Obese (morbid) Eyes: Yes: Conjunctiva Clear, EOM Intact, PERRL HENT: Yes: Atraumatic, Normocephalic Cardiovascular: Yes: Regular Rate and Rhythm. No: Gallop, Murmur, Rub Respiratory: Yes: Regular, CTA Bilaterally. No: Rales, Rhonchi, Wheezes Gastrointestinal: Yes: Normal Bowel Sounds, Soft, Other (erythema and induration on R side of abdomen). No: Distention, Tenderness Extremities: Yes: Other (chronic suspected vasculitic changes) Edema: LLE: 1+, RLE: 1+ Integumentary: Yes: Erythema (dorsal side of R leg extending up to the abdomen) Labs: CBC, BMP 06/22/19 15:25 06/22/19 15:25 Problem List - Problems (1) Cellulitis Assessment/Plan: -patient with significant cellulitis extending up to the R abdominal wall -also with induration on that side -patient states it is worsened this time than last admission -case d/w Dr Fraga -responds well to prednisone 60mg daily, will restart that -continue daptomycin and aztreonam -monitor for improvement -consult rheumatology -will benefit from outpatient dermatology Code(s): L03.90 - CELLULITIS, UNSPECIFIED Qualifiers: Site of cellulitis: trunk Site of cellulitis of trunk: abdominal wall Qualified Code(s): L03.311 - Cellulitis of abdominal wall (2) Atrial fibrillation Assessment/Plan: -continue diltiazem and metoprolol -continue eliquis -controlled, currently in sinus rhythm Code(s): I48.91 - UNSPECIFIED ATRIAL FIBRILLATION Qualifiers: Atrial fibrillation type: chronic Qualified Code(s): I48.2 - Chronic atrial fibrillation (3) Chronic venous stasis Assessment/Plan: -BLE look stable today Code(s): I87.8 - OTHER SPECIFIED DISORDERS OF VEINS (4) HLD (hyperlipidemia) Assessment/Plan: -continue fish oil Code(s): E78.5 - HYPERLIPIDEMIA, UNSPECIFIED (5) HTN (hypertension) Assessment/Plan: -continue diltiazem and toprol -hold enalapril for hyperkalemia Code(s): I10 - ESSENTIAL (PRIMARY) HYPERTENSION (6) Obesity Assessment/Plan: -noted Code(s): E66.9 - OBESITY, UNSPECIFIED Qualifiers: Obesity type: with alveolar hypoventilation Obesity classification: adult class 3 (BMI >= 40) Serious obesity comorbidity presence: with serious comorbidity Body mass index: BMI 40.0-44.9 Qualified Code(s): E66.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
[2019-06-22] MEDS: predniSONE 20 MG TABLET (UD) PO SCH (18:10)
--- NOTE | 2019-06-22 18:37 | CON.ID ---
Consult Consult Specialty:: infectious disease Referred by:: dr pompa Reason for Consultation:: cellulitis - History of Present Illness Chief Complaint: worsening erythema of the right pannus, chills History of Present Illness: 74 yo obese female with chronic venous stasis , recurrent cellulitis of the RLE , just discharged on 06/16 after one week of zyvox and azactam and prednisone she went home on po prednisone taper and oral zyvox she has now completed the zyvox yesterday and has almost finished the steroids she had a fever this am-temp in ed 100.2 notes her right side has became more inflamed over the course of the weekend no cough, no sob, no gi or gu symptoms no chest pain - History Source History Provided By: Patient, Medical Record Limitations to Obtaining History: Clinical Condition - Past Medical History Cardio/Vascular: Yes: AFIB, HTN, Other (h/o DVT, venous stasis ) Pulmonary: Yes: COPD, Sleep Apnea Hepatobiliary: Yes: Other (fatty liver disease) Infectious Disease: Yes: Other (recurrent cellulitis) Musculoskeletal: Yes: Chronic low back pain (/spinal stenosis) Rheumatology: Yes: Rheumatoid Arthritis Endocrine: Yes: Osteopenia, Other (obesity, thyroid nodule) - Past Surgical History Past Surgical History: Yes: Joint Replacement (right knee over 10 years ago) - Alcohol/Substance Use Hx Alcohol Use: No History of Substance Use: reports: None - Smoking History Smoking history: Former smoker Have you smoked in the past 12 months: No Aproximately how many cigarettes per day: 0 If you are a former smoker, when did you quit?: 1984 - Social History Usual Living Arrangement: With Spouse ( disabled) ADL: Support Services History of Recent Travel: No Home Medications - Allergies Allergies/Adverse Reactions: Allergies Allergy/AdvReac Type Severity Reaction Status Date / Time Penicillins Allergy Severe Swelling Verified 06/22/19 14:26 clindamycin Allergy Mild Rash Verified 06/22/19 14:26 doxycycline Allergy Swelling Verified 06/22/19 14:26 levofloxacin [From Levaquin] Allergy Rash Verified 06/22/19 14:26 vancomycin AdvReac Mild Itching Verified 06/22/19 14:26 adhesive tape AdvReac "RIPS MY Verified 06/22/19 14:26 SKIN" - Home Medications Home Medications: Ambulatory Orders Ascorbate Calcium [Vitamin C] 1,000 mg PO DAILY 08/30/15 Cholecalciferol (Vitamin D3) [Vitamin D3] 1,000 unit PO BID 08/30/15 Cyanocobalamin [Vitamin B12 -] 1,000 mcg PO DAILY 08/30/15 Oxycodone/APAP [Percocet - Must Order Individual Components] 1 each NR QID PRN 08/30/15 Simvastatin 10 mg PO HS 08/30/15 Guaifenesin [Mucinex] 600 mg PO DAILY 06/20/17 Metoprolol Succinate [Toprol XL -] 50 mg PO BID #60 tab.sr 06/25/17 Diltiazem [Cardizem -] 360 mg PO DAILY 08/29/17 Furosemide [Lasix] 40 mg PO DAILY PRN 08/29/17 Apixaban [Eliquis] 5 mg PO BID 04/22/19 Enalapril Maleate [Vasotec -] 2.5 mg PO DAILY 05/14/19 Gabapentin [Neurontin] 400 mg PO TID 05/14/19 Hydroxychloroquine Sulfate 200 mg PO DAILY 05/14/19 Ranitidine HCl [Zantac] 150 mg PO BID 05/14/19 Linezolid [Zyvox] 600 mg PO BID #14 tablet 06/16/19 Nystatin Powder [Nystop Powder -] 1 applic TP TID PRN #1 applic 06/16/19 Prednisone [Deltasone] 20 mg PO DAILY 06/22/19 Family Disease History - Family Disease History Family Disease History: Other: Father (alcohol abuse), Mother (rheumatoid arthritis) Review of Systems - Review of Systems Constitutional: reports: Chills, Fever Eyes: reports: No Symptoms HENT: reports: No Symptoms Neck: reports: No Symptoms Cardiovascular: reports: No Symptoms Respiratory: reports: No Symptoms Gastrointestinal: reports: No Symptoms Genitourinary: reports: No Symptoms Integumentary: reports: Erythema, Rash Physical Exam Vital Signs: Vital Signs Temperature 100.2 F H 06/22/19 14:26 Pulse Rate 84 06/22/19 15:55 Respiratory Rate 22 H 06/22/19 15:55 Blood Pressure 127/82 06/22/19 15:55 O2 Sat by Pulse Oximetry (%) 92 L 06/22/19 16:07 Constitutional: Yes: Calm, Obese HENT: Yes: Atraumatic, Normocephalic. No: Pharyngeal Erythema, Thrush Neck: Yes: Supple Cardiovascular: Yes: Regular Rate and Rhythm Respiratory: Yes: Regular, CTA Bilaterally, Diminished (at bases) Gastrointestinal: Yes: Normal Bowel Sounds, Soft ...Rectal Exam: Yes: Deferred Extremities: Yes: Other (venous stasis) Edema: Yes Integumentary: Yes: Other (erythema of the right side of pannus - hot and red to touch, also with dermatitis of the diaper distribution) Labs: CBC, BMP 06/22/19 15:25 06/22/19 15:25 blood cultures sent Imaging - Results Chest X-ray: Report Reviewed, Image Reviewed Problem List - Problems (1) Fever Code(s): R50.9 - FEVER, UNSPECIFIED (2) Cellulitis Code(s): L03.90 - CELLULITIS, UNSPECIFIED Qualifiers: Site of cellulitis: trunk Site of cellulitis of trunk: abdominal wall Qualified Code(s): L03.311 - Cellulitis of abdominal wall (3) Allergy to multiple antibiotics Code(s): Z88.1 - ALLERGY STATUS TO OTHER ANTIBIOTIC AGENTS STATUS Assessment/Plan daptomycin and azactam f/u cultures esr/crp derm? no objection to resuming steroids as this has helped in the past d/w dr pompa
[2019-06-22] MEDS ORDERED: PT OWN MED DRAWER 7, Y5N ONE (19:42)
[2019-06-22] MEDS: APIXABAN 5 MG TABLET PO SCH (21:36)
[2019-06-22] MEDS: CHOLECALCIFEROL (VIT D3) 1,000 UNIT (25 MCG) TABLET PO SCH (21:36)
[2019-06-22] MEDS: GABAPENTIN 400 MG CAPSULE (FP) PO SCH (21:37)
[2019-06-22] MEDS: ATORVASTATIN CA 10 MG TABLET (FP) PO SCH (21:37)
[2019-06-22] MEDS: DOCUSATE SODIUM 100 MG CAPSULE (FP) PO SCH ×2 (21:37→21:40)
[2019-06-22] MEDS: RANITIDINE HCL 150 MG TABLET (FP) PO SCH (21:37)
[2019-06-23] MEDS: GABAPENTIN 400 MG CAPSULE (FP) PO SCH ×3 (06:12→21:34)
--- NOTE | 2019-06-23 07:41 | PN ---
Physical Exam: SUBJECTIVE: Patient seen and examined at bed side , asking for regular diet, AC rape for lower ext and lotion she denies any fever or chills, denies any chest pain OBJECTIVE: Vital Signs Period Temp Pulse Resp BP Sys/William Pulse Ox Last 24 Hr 97.7 F-100.2 F 82-101 16-22 110-146/52-82 90-96 GENERAL: The patient is awake, alert, and fully oriented, in no acute distress. HEAD: Normal with no signs of trauma. EYES: sclera anicteric, conjunctiva clear. LUNGS: Breath sounds equal, clear to auscultation bilaterally, HEART: Regular rate and rhythm, S1, S2 without murmur, rub or gallop. ABDOMEN: Obese Soft, nontender, nondistended, normoactive bowel sounds, sever left side erythema LLQ inginal abdominal fold EXTREMITIES: 2+ pulses, extensive b/l erythema with sclaes right worse than left , no edema , +2 Pulse left leg .+1 right leg. NEUROLOGICAL: no focal deficit , move all ext PSYCH: Normal mood, normal affect. SKIN: Warm, dry, Laboratory Results - last 24 hr 06/22/19 06/22/19 06/22/19 15:25 15:25 15:25 WBC 8.9 RBC 4.59 Hgb 12.7 Hct 39.4 MCV 85.8 MCH 27.7 MCHC 32.3 RDW 18.6 H Plt Count 160 MPV 8.0 Absolute Neuts (auto) 8.1 H Neutrophils % 91.2 H D Neutrophils % (Manual) 82.0 Band Neutrophils % 5.0 Lymphocytes % 3.9 L D Lymphocytes % (Manual) 6.0 L Monocytes % 4.4 Monocytes % (Manual) 2 L D Eosinophils % 0.3 Eosinophils % (Manual) 0.0 Basophils % 0.2 Basophils % (Manual) 0.0 Nucleated RBC % 0 Platelet Estimate Adequate PT with INR 14.90 H INR 1.26 H PTT (Actin FS) 35.6 VBG pH POC VBG pCO2 POC VBG pO2 VBG HCO3 VBG O2 Sat (Franny) VBG Base Excess Sodium Potassium Chloride Carbon Dioxide Anion Gap BUN Creatinine Est GFR (CKD-EPI)AfAm Est GFR (CKD-EPI)NonAf Random Glucose Lactic Acid Calcium Total Bilirubin AST ALT Alkaline Phosphatase Troponin I < 0.02 Total Protein Albumin Urine Color Urine Appearance Urine pH Ur Specific [place] Urine Protein Urine Glucose (UA) Urine Ketones Urine Blood Urine Nitrite Urine Bilirubin Urine Urobilinogen Ur Leukocyte Esterase 06/22/19 06/22/19 06/22/19 15:25 15:25 15:54 WBC RBC Hgb Hct MCV MCH MCHC RDW Plt Count MPV Absolute Neuts (auto) Neutrophils % Neutrophils % (Manual) Band Neutrophils % Lymphocytes % Lymphocytes % (Manual) Monocytes % Monocytes % (Manual) Eosinophils % Eosinophils % (Manual) Basophils % Basophils % (Manual) Nucleated RBC % Platelet Estimate PT with INR INR PTT (Actin FS) VBG pH POC VBG pCO2 POC VBG pO2 VBG HCO3 VBG O2 Sat (Franny) VBG Base Excess Sodium 140 Potassium 5.4 H Chloride 98 Carbon Dioxide 38 H Anion Gap 3 L BUN 20.9 H Creatinine 0.4 L Est GFR (CKD-EPI)AfAm 120.60 Est GFR (CKD-EPI)NonAf 104.06 Random Glucose 129 H Lactic Acid 1.0 Calcium 8.4 L Total Bilirubin 0.5 AST 22 ALT 29 Alkaline Phosphatase 93 Troponin I Total Protein 5.8 L Albumin 2.6 L Urine Color Yellow Urine Appearance Clear Urine pH 7.0 D Ur Specific [place] 1.020 Urine Protein Negative Urine Glucose (UA) Negative Urine Ketones Negative Urine Blood Negative Urine Nitrite Negative Urine Bilirubin Negative Urine Urobilinogen 2.0 H Ur Leukocyte Esterase Negative 06/22/19 16:13 WBC RBC Hgb Hct MCV MCH MCHC RDW Plt Count MPV Absolute Neuts (auto) Neutrophils % Neutrophils % (Manual) Band Neutrophils % Lymphocytes % Lymphocytes % (Manual) Monocytes % Monocytes % (Manual) Eosinophils % Eosinophils % (Manual) Basophils % Basophils % (Manual) Nucleated RBC % Platelet Estimate PT with INR INR PTT (Actin FS) VBG pH 7.41 POC VBG pCO2 57.2 H POC VBG pO2 81.7 H VBG HCO3 35.8 H VBG O2 Sat (Franny) 96.4 H VBG Base Excess 9.6 H Sodium Potassium Chloride Carbon Dioxide Anion Gap BUN Creatinine Est GFR (CKD-EPI)AfAm Est GFR (CKD-EPI)NonAf Random Glucose Lactic Acid Calcium Total Bilirubin AST ALT Alkaline Phosphatase Troponin I Total Protein Albumin Urine Color Urine Appearance Urine pH Ur Specific [place] Urine Protein Urine Glucose (UA) Urine Ketones Urine Blood Urine Nitrite Urine Bilirubin Urine Urobilinogen Ur Leukocyte Esterase Active Medications Generic Name Dose Route Start Last Admin Trade Name Freq PRN Reason Stop Dose Admin Acetaminophen 650 mg 06/22/19 17:38 Tylenol - PO Q4H PRN FEVER Apixaban 5 mg 06/22/19 22:00 06/22/19 21:36 Eliquis - PO 5 mg BID [facility] Administration Ascorbic Acid 1,000 mg 06/23/19 10:00 Vitamin C - PO DAILY [facility] Atorvastatin Calcium 10 mg 06/22/19 22:00 06/22/19 21:37 Lipitor - PO 10 mg HS [facility] Administration Cholecalciferol 1,000 unit 06/22/19 22:00 06/22/19 21:36 Vitamin D3 - PO 1,000 unit BID [facility] Administration Cyanocobalamin 1,000 mcg 06/23/19 10:00 Vitamin B12 - PO DAILY [facility] Diltiazem HCl 360 mg 06/23/19 10:00 Cardizem Cd - PO DAILY [facility] Docusate Sodium 100 mg 06/22/19 22:00 06/22/19 21:40 Colace - PO Not Given BID [facility] Furosemide 40 mg 06/23/19 10:00 Lasix - PO DAILY [facility] Gabapentin 400 mg 06/22/19 22:00 06/23/19 06:12 Neurontin - PO 400 mg TID [facility] Administration Hydroxychloroquine Sulfate 200 mg 06/23/19 10:00 Plaquenil - PO DAILY [facility] Aztreonam 2 gm/ Dextrose 100 mls @ 100 mls/hr 06/23/19 08:00 IVPB Q8H-IV [facility] Protocol Daptomycin 500 mg/ Sodium 50 mls @ 50 mls/hr 06/23/19 20:00 Chloride IVPB DAILY@1999 [facility] Protocol Lactobacillus Acidophilus 1 tab 06/23/19 10:00 Bacid - PO DAILY [facility] Metoprolol Succinate 50 mg 06/22/19 22:00 06/22/19 21:36 Toprol Xl - PO 50 mg BID [facility] Administration Non-Formulary Medication 1 cap 06/23/19 10:00 Fish Oil/Borage/Flax/Om3,6,9 1 [[place] 3-6-9 1,200 Mg Softgel] PO DAILY [facility] Nystatin 1 applic 06/22/19 17:33 Nystop Powder - TP TID PRN FOR ITCHING Oxycodone HCl 5 mg 06/22/19 17:38 Roxicodone - PO Q4H PRN PAIN LEVEL 6-10 Prednisone 60 mg 06/22/19 17:45 06/22/19 18:10 Deltasone - PO 60 mg DAILY [facility] Administration Ranitidine HCl 150 mg 06/22/19 22:00 06/22/19 21:37 Zantac - PO 150 mg BID [facility] Administration CBC, BMP 06/23/19 06:30 06/23/19 06:30 ASSESSMENT/PLAN: 74 year old female who comes in with fevers and worsening erythema today. She was recently discharged on 06/16 after being treated for cellulitis extending from her R foot up to her abdomen. # Cellulitis VS Vasculitis : ID on Board cont with IV abx Daptomycina nd Azactam and prednisone 60 po daily and zantac , consult Reheumatology and dermatology as out pt # HTN on Deltiazim and lasix 40 daily , can resume enalapril in AM if K normalized # HLD on Lipitor 10 HS # AFIB on Eliquis 5 BID , Mteoprolol 50 BID # Sleep Apnea # copd # RA on Hydroxychloroquin #Osteopenia on Vit D , Vit C and b12 # constipation colace # Back pain on Marielena 400 TID # CHronic venous stasis stable on base line Visit type - Emergency Visit Emergency Visit: Yes ED Registration Date: 06/22/19 Care time: The patient presented to the Emergency Department on the above date and was hospitalized for further evaluation of their emergent condition. - New Patient This patient is new to me today: Yes Date on this admission: 06/23/19 - Critical Care Critical Care patient: No ATTENDING PHYSICIAN STATEMENT I saw and evaluated the patient. I reviewed the resident's note and discussed the case with the resident. I agree with the resident's findings and plan as documented. SUBJECTIVE: OBJECTIVE: ASSESSMENT AND PLAN:
[2019-06-23 08:04] LABS: EOS % 0.2 % (0-4.5); HEMOGLOBIN 12.1 GM/dL (10.7-15.3); LYMPH % 9.8 % (8-40); MCH 27.7 pg (25.7-33.7); MCHC 32.7 g/dl (32.0-36.0); MEAN CELL VOLUME 84.7 fl (80-96); MEAN PLT VOLUME 7.8 fl (7.5-11.1); MONO % 7.6 % (3.8-10.2); NEUT % 82.4 % (42.8-82.8); PLATELET COUNT 170 K/MM3 (134-434); RBC 4.36 M/mm3 (3.60-5.2); RDW 18.4 % (11.6-15.6); WHITE BLOOD COUNT 6.5 K/mm3 (4.0-10.0)
[2019-06-23 08:42] LABS: ALBUMIN 2.5 g/dl (3.4-5.0); BILIRUBIN,TOTAL 0.3 mg/dL (0.2-1); BLOOD UREA NITROGEN 17.1 mg/dL (7-18); CALCIUM 8.9 mg/dL (8.5-10.1); CREATININE 0.4 mg/dL (0.55-1.3); PHOSPHOROUS 3.7 mg/dL (2.5-4.9); POTASSIUM 4.8 mmol/L (3.5-5.1); TOT PROT 5.7 g/dl (6.4-8.2)
--- NOTE | 2019-06-23 09:30 | EKG ---
Test Reason : Blood Pressure : / mmHG Vent. Rate : 082 BPM Atrial Rate : 535 BPM P-R Int : 000 ms QRS Dur : 094 ms QT Int : 360 ms P-R-T Axes : 000 038 027 degrees QTc Int : 420 ms POOR DATA QUALITY, INTERPRETATION MAY BE ADVERSELY AFFECTED ATRIAL FIBRILLATION ABNORMAL ECG WHEN COMPARED WITH ECG OF 08-JUN-2019 15:21, NO SIGNIFICANT CHANGE WAS FOUND Confirmed by Jose Roberto Tellez MD ([id number]) on 06/23/2019 9:29:41 AM Referred By: Confirmed By:Jose Roberto Tellez MD
[2019-06-23] MEDS: AZTREONAM 2 GM in DEXTROSE 5%-WATER 100 ML IVPB SCH ×2 (09:32→17:21)
[2019-06-23] MEDS: HYDROXYCHLOROQUINE SO4 200 MG TABLET (FP) PO SCH (09:33)
[2019-06-23] MEDS: ASCORBIC ACID 500 MG TABLET (FP) PO SCH (09:34)
[2019-06-23] MEDS: DOCUSATE SODIUM 100 MG CAPSULE (FP) PO SCH ×2 (09:34→21:31)
[2019-06-23] MEDS: CYANOCOBALAMIN 1,000 MCG TABLET (FP) PO SCH (09:34)
[2019-06-23] MEDS: LACTOBACILLUS ACIDOPHILUS 1 TABLET PO SCH (09:34)
[2019-06-23] MEDS: predniSONE 20 MG TABLET (UD) PO SCH (09:35)
[2019-06-23] MEDS: APIXABAN 5 MG TABLET PO SCH ×2 (09:35→21:34)
[2019-06-23] MEDS: FUROSEMIDE 40 MG TABLET (FP) PO SCH (09:35)
[2019-06-23] MEDS: CHOLECALCIFEROL (VIT D3) 1,000 UNIT (25 MCG) TABLET PO SCH ×2 (09:35→21:33)
[2019-06-23] MEDS: RANITIDINE HCL 150 MG TABLET (FP) PO SCH ×2 (09:48→21:34)
[2019-06-23] MEDS ORDERED: PATIENT'S OWN MEDICATION (NON-FORMULARY) (Fish Oil/Borage/Flax/Om3,6,9 1 [Omega 3-6-9 1,20 PO SCH (10:00)
[2019-06-23] MEDS: oxyCODONE HCL 5 MG TABLET PO PRN ×3 (13:00→21:34)
[2019-06-23] MEDS: CLOTRIMAZOLE 1% CREAM 15 GM TUBE TP SCH ×2 (13:03→21:34)
[2019-06-23] MEDS: ACETAMINOPHEN 325 MG TABLET (FP) PO PRN (15:30)
--- NOTE | 2019-06-23 16:16 | PN ---
Progress Note (short form) - Note Progress Note: clinically much improved alert back pain (chronic) Vital Signs Period Temp Pulse Resp BP Sys/William Pulse Ox Last 24 Hr 97.7 F-99.4 F 80-101 16-20 108-146/49-73 96-97 cor-rrr lungs decreased bs at bases abd decreased erythema right pannus "rash " at diaper site resolving CBC, BMP 06/23/19 06:30 06/23/19 06:30 Microbiology 06/22/19 15:25 Blood - Peripheral Venous Blood Culture - Preliminary NO GROWTH OBTAINED AFTER 24 HOURS, INCUBATION TO CONTINUE FOR 4 DAYS. 06/22/19 15:20 Blood - Peripheral Venous Blood Culture - Preliminary NO GROWTH OBTAINED AFTER 24 HOURS, INCUBATION TO CONTINUE FOR 4 DAYS. Current Medications Acetaminophen (Tylenol -) 650 mg PO Q4H PRN PRN Reason: FEVER Last Admin: 06/23/19 15:30 Dose: 650 mg Apixaban (Eliquis -) 5 mg PO BID [facility] Last Admin: 06/23/19 09:35 Dose: 5 mg Ascorbic Acid (Vitamin C -) 1,000 mg PO DAILY [facility] Last Admin: 06/23/19 09:34 Dose: 1,000 mg Atorvastatin Calcium (Lipitor -) 10 mg PO HS [facility] Last Admin: 06/22/19 21:37 Dose: 10 mg Cholecalciferol (Vitamin D3 -) 1,000 unit PO BID [facility] Last Admin: 06/23/19 09:35 Dose: 1,000 unit Clotrimazole (Lotrimin 1% Cream -) 1 applic TP BID [facility] Last Admin: 06/23/19 13:03 Dose: 1 applic Cyanocobalamin (Vitamin B12 -) 1,000 mcg PO DAILY [facility] Last Admin: 06/23/19 09:34 Dose: 1,000 mcg Diltiazem HCl (Cardizem Cd -) 360 mg PO DAILY [facility] Last Admin: 06/23/19 09:34 Dose: 360 mg Docusate Sodium (Colace -) 100 mg PO BID [facility] Last Admin: 06/23/19 09:34 Dose: 100 mg Furosemide (Lasix -) 40 mg PO DAILY [facility] Last Admin: 06/23/19 09:35 Dose: 40 mg Gabapentin (Neurontin -) 400 mg PO TID [facility] Last Admin: 06/23/19 13:03 Dose: 400 mg Hydroxychloroquine Sulfate (Plaquenil -) 200 mg PO DAILY [facility] Last Admin: 06/23/19 09:33 Dose: 200 mg Aztreonam 2 gm/ Dextrose 100 mls @ 100 mls/hr IVPB Q8H-IV [facility]; Protocol Last Admin: 06/23/19 09:32 Dose: 100 mls/hr Daptomycin 500 mg/ Sodium (Chloride) 50 mls @ 50 mls/hr IVPB DAILY@2000 [facility]; Protocol Lactobacillus Acidophilus (Bacid -) 1 tab PO DAILY [facility] Last Admin: 06/23/19 09:34 Dose: 1 tab Metoprolol Succinate (Toprol Xl -) 50 mg PO BID [facility] Last Admin: 06/23/19 09:34 Dose: 50 mg Non-Formulary Medication (Fish Oil/Borage/Flax/Om3,6,9 1 [[place] 3-6-9 1,200 Mg Softgel]) 1 cap PO DAILY [facility] Nystatin (Nystop Powder -) 1 applic TP TID PRN PRN Reason: FOR ITCHING Oxycodone HCl (Roxicodone -) 5 mg PO Q4H PRN PRN Reason: PAIN LEVEL 6-10 Last Admin: 06/23/19 13:00 Dose: 5 mg Prednisone (Deltasone -) 60 mg PO DAILY [facility] Last Admin: 06/23/19 09:35 Dose: 60 mg Ranitidine HCl (Zantac -) 150 mg PO BID [facility] Last Admin: 06/23/19 09:48 Dose: 150 mg a/p recurrent cellulitis ?vasculitis multiple antibiotic allergies continue dapto/azactam continue steroids clinically improving Problem List - Problems (1) Fever Code(s): R50.9 - FEVER, UNSPECIFIED (2) Cellulitis Code(s): L03.90 - CELLULITIS, UNSPECIFIED Qualifiers: Site of cellulitis: trunk Site of cellulitis of trunk: abdominal wall Qualified Code(s): L03.311 - Cellulitis of abdominal wall (3) Allergy to multiple antibiotics Code(s): Z88.1 - ALLERGY STATUS TO OTHER ANTIBIOTIC AGENTS STATUS
--- NOTE | 2019-06-23 17:36 | PN ---
Teaching Attending Note Name of Resident: Sky Romero ATTENDING PHYSICIAN STATEMENT I saw and evaluated the patient. I reviewed the resident's note and discussed the case with the resident. I agree with the resident's findings and plan as documented. SUBJECTIVE: Mrs Torres says she is feeling better. Denies cp, sob, n/v. OBJECTIVE: Last Vital Signs Temp Pulse Resp BP Pulse Ox 37.4 C 80 20 108/49 L 97 06/23/19 15:33 06/23/19 15:33 06/23/19 09:00 06/23/19 15:33 06/23/19 09:00 Gen: nad, morbidly obese Pulm: ctab w/o w/r/r CV: rrr w/o m/r/g Abd: +bs, s/nt/nd, erythema much improved today Ext: chronic venous stasis changes with flaking skin, looks at baseline CBC, BMP 06/23/19 06:30 06/23/19 06:30 ASSESSMENT AND PLAN: (1) Cellulitis Assessment/Plan: -cellulitis vs vasculitis -continue prednisone 60mg daily -continue aztreonam and daptomycin -ID following Code(s): L03.90 - CELLULITIS, UNSPECIFIED Qualifiers: Site of cellulitis: trunk Site of cellulitis of trunk: abdominal wall Qualified Code(s): L03.311 - Cellulitis of abdominal wall (2) Atrial fibrillation Assessment/Plan: -continue diltiazem and metoprolol -continue eliquis -controlled, currently in sinus rhythm Code(s): I48.91 - UNSPECIFIED ATRIAL FIBRILLATION Qualifiers: Atrial fibrillation type: chronic Qualified Code(s): I48.2 - Chronic atrial fibrillation (3) Chronic venous stasis Assessment/Plan: -BLE is stable Code(s): I87.8 - OTHER SPECIFIED DISORDERS OF VEINS (4) HLD (hyperlipidemia) Assessment/Plan: -continue fish oil Code(s): E78.5 - HYPERLIPIDEMIA, UNSPECIFIED (5) HTN (hypertension) Assessment/Plan: -continue diltiazem and toprol -holding enalapril for hyperkalemia -may be able to restart tomorrow if needed Code(s): I10 - ESSENTIAL (PRIMARY) HYPERTENSION (6) Obesity Assessment/Plan: -noted Code(s): E66.9 - OBESITY, UNSPECIFIED Qualifiers: Obesity type: with alveolar hypoventilation Obesity classification: adult class 3 (BMI >= 40) Serious obesity comorbidity presence: with serious comorbidity Body mass index: BMI 40.0-44.9 Qualified Code(s): E66.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 Problem List - Problems (1) Cellulitis Code(s): L03.90 - CELLULITIS, UNSPECIFIED Qualifiers: Site of cellulitis: trunk Site of cellulitis of trunk: abdominal wall Qualified Code(s): L03.311 - Cellulitis of abdominal wall (2) Atrial fibrillation Code(s): I48.91 - UNSPECIFIED ATRIAL FIBRILLATION Qualifiers: Atrial fibrillation type: chronic Qualified Code(s): I48.2 - Chronic atrial fibrillation (3) Chronic venous stasis Code(s): I87.8 - OTHER SPECIFIED DISORDERS OF VEINS (4) HLD (hyperlipidemia) Code(s): E78.5 - HYPERLIPIDEMIA, UNSPECIFIED (5) HTN (hypertension) Code(s): I10 - ESSENTIAL (PRIMARY) HYPERTENSION (6) Obesity Code(s): E66.9 - OBESITY, UNSPECIFIED Qualifiers: Obesity type: with alveolar hypoventilation Obesity classification: adult class 3 (BMI >= 40) Serious obesity comorbidity presence: with serious comorbidity Body mass index: BMI 40.0-44.9 Qualified Code(s): E66.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
[2019-06-23] MEDS: ATORVASTATIN CA 10 MG TABLET (FP) PO SCH (21:34)
[2019-06-23] MEDS: DAPTOMYCIN 500 MG in SODIUM CHLORIDE 50 ML IVPB SCH (22:42)
[2019-06-24] MEDS ORDERED: MELATONIN 5 MG TABLETS PO ONE (00:32)
[2019-06-24] MEDS: AZTREONAM 2 GM in DEXTROSE 5%-WATER 100 ML IVPB SCH ×3 (01:08→17:27)
[2019-06-24] MEDS: GABAPENTIN 400 MG CAPSULE (FP) PO SCH ×3 (06:12→21:43)
[2019-06-24] MEDS: oxyCODONE HCL 5 MG TABLET PO PRN ×2 (06:12→21:47)
[2019-06-24 07:29] LABS: BASO % 0.2 % (0-2.0); EOS % 1.4 % (0-4.5); HEMATOCRIT 39.9 % (32.4-45.2); HEMOGLOBIN 12.9 GM/dL (10.7-15.3); LYMPH % 20.2 % (8-40); MCH 27.7 pg (25.7-33.7); MCHC 32.3 g/dl (32.0-36.0); MEAN CELL VOLUME 85.8 fl (80-96); MEAN PLT VOLUME 7.7 fl (7.5-11.1); MONO % 11.1 % (3.8-10.2); NEUT % 67.1 % (42.8-82.8); PLATELET COUNT 219 K/MM3 (134-434); RBC 4.66 M/mm3 (3.60-5.2); RDW 19.4 % (11.6-15.6); WHITE BLOOD COUNT 6.5 K/mm3 (4.0-10.0)
[2019-06-24 08:28] LABS: ALBUMIN 2.6 g/dl (3.4-5.0); BILIRUBIN,TOTAL 0.4 mg/dL (0.2-1); BLOOD UREA NITROGEN 17.2 mg/dL (7-18); CREATININE 0.4 mg/dL (0.55-1.3); MAGNESIUM 2.1 mg/dL (1.8-2.4); PHOSPHOROUS 3.9 mg/dL (2.5-4.9)
--- NOTE | 2019-06-24 09:10 | PN ---
Physical Exam: SUBJECTIVE: Patient seen and examined clinically improved no new compalins , she denies fever , chilsl, N/V/D/C. refuse to work with PT Rheumatology and Dermatology consulted for possible vasculitis work up OBJECTIVE: Vital Signs Period Temp Pulse Resp BP Sys/William Pulse Ox Last 24 Hr 98.9 F-99.4 F 80-85 20-20 108-127/49-71 97 GENERAL: The patient is awake, alert, and fully oriented, in no acute distress. HEAD: Normal with no signs of trauma. EYES: sclera anicteric, conjunctiva clear. LUNGS: Breath sounds equal, clear to auscultation bilaterally, HEART: Regular rate and rhythm, S1, S2 without murmur, rub or gallop. ABDOMEN: Obese Soft, nontender, nondistended, normoactive bowel sounds, sever left side erythema LLQ inginal abdominal fold EXTREMITIES: 2+ pulses, extensive b/l erythema with sclaes right worse than left , no edema , +2 Pulse left leg .+1 right leg. NEUROLOGICAL: no focal deficit , move all ext PSYCH: Normal mood, normal affect. SKIN: Warm, dry, Laboratory Results - last 24 hr 06/23/19 06/23/19 06/24/19 06:00 06:30 06:03 WBC 6.5 6.5 RBC 4.36 4.66 Hgb 12.1 12.9 Hct 37.0 39.9 MCV 84.7 85.8 MCH 27.7 27.7 MCHC 32.7 32.3 RDW 18.4 H 19.4 H Plt Count 170 219 D MPV 7.8 7.7 Absolute Neuts (auto) 5.3 4.3 Neutrophils % 82.4 67.1 Lymphocytes % 9.8 D 20.2 D Monocytes % 7.6 11.1 H Eosinophils % 0.2 1.4 D Basophils % 0.0 0.2 D Nucleated RBC % 0 0 ESR 28 Sodium Potassium Chloride Carbon Dioxide Anion Gap BUN Creatinine Est GFR (CKD-EPI)AfAm Est GFR (CKD-EPI)NonAf Random Glucose Calcium Phosphorus Magnesium Total Bilirubin AST ALT Alkaline Phosphatase Total Protein Albumin 06/24/19 06:03 WBC RBC Hgb Hct MCV MCH MCHC RDW Plt Count MPV Absolute Neuts (auto) Neutrophils % Lymphocytes % Monocytes % Eosinophils % Basophils % Nucleated RBC % ESR Sodium 142 Potassium 4.0 Chloride 96 L Carbon Dioxide 41 H Anion Gap 4 L BUN 17.2 Creatinine 0.4 L Est GFR (CKD-EPI)AfAm 120.60 Est GFR (CKD-EPI)NonAf 104.06 Random Glucose 63 L Calcium 9.0 Phosphorus 3.9 Magnesium 2.1 Total Bilirubin 0.4 AST 6 L ALT 22 Alkaline Phosphatase 89 Total Protein 6.0 L Albumin 2.6 L Active Medications Generic Name Dose Route Start Last Admin Trade Name Freamanda PRN Reason Stop Dose Admin Acetaminophen 650 mg 06/22/19 17:38 06/23/19 15:30 Tylenol - PO 650 mg Q4H PRN Administration FEVER Apixaban 5 mg 06/22/19 22:00 06/23/19 21:34 Eliquis - PO 5 mg BID BELL Administration Ascorbic Acid 1,000 mg 06/23/19 10:00 06/23/19 09:34 Vitamin C - PO 1,000 mg DAILY BELL Administration Atorvastatin Calcium 10 mg 06/22/19 22:00 06/23/19 21:34 Lipitor - PO 10 mg HS BELL Administration Cholecalciferol 1,000 unit 06/22/19 22:00 06/23/19 21:33 Vitamin D3 - PO 1,000 unit BID BELL Administration Clotrimazole 1 applic 06/23/19 10:00 06/23/19 21:34 Lotrimin 1% Cream - TP 1 applic BID BELL Administration Cyanocobalamin 1,000 mcg 06/23/19 10:00 06/23/19 09:34 Vitamin B12 - PO 1,000 mcg DAILY BELL Administration Diltiazem HCl 360 mg 06/23/19 10:00 06/23/19 09:34 Cardizem Cd - PO 360 mg DAILY BELL Administration Docusate Sodium 100 mg 06/22/19 22:00 06/23/19 21:31 Colace - PO 100 mg BID EBLL Administration Furosemide 40 mg 06/23/19 10:00 06/23/19 09:35 Lasix - PO 40 mg DAILY BELL Administration Gabapentin 400 mg 06/22/19 22:00 06/24/19 06:12 Neurontin - PO 400 mg TID BELL Administration Hydroxychloroquine Sulfate 200 mg 06/23/19 10:00 06/23/19 09:33 Plaquenil - PO 200 mg DAILY BELL Administration Aztreonam 2 gm/ Dextrose 100 mls @ 100 mls/hr 06/23/19 08:00 06/24/19 01:08 IVPB 100 mls/hr Q8H-IV BELL Administration Protocol Daptomycin 500 mg/ Sodium 50 mls @ 50 mls/hr 06/23/19 20:00 06/23/19 22:42 Chloride IVPB 50 mls/hr DAILY@2000 BELL Administration Protocol Lactobacillus Acidophilus 1 tab 06/23/19 10:00 06/23/19 09:34 Bacid - PO 1 tab DAILY BELL Administration Metoprolol Succinate 50 mg 06/22/19 22:00 06/23/19 21:34 Toprol Xl - PO 50 mg BID BELL Administration Non-Formulary Medication 1 cap 06/23/19 10:00 Fish Oil/Borage/Flax/Om3,6,9 1 [[place] 3-6-9 1,200 Mg Softgel] PO DAILY BELL Nystatin 1 applic 06/22/19 17:33 Nystop Powder - TP TID PRN FOR ITCHING Oxycodone HCl 5 mg 06/22/19 17:38 06/24/19 06:12 Roxicodone - PO 5 mg Q4H PRN Administration PAIN LEVEL 6-10 Prednisone 60 mg 06/22/19 17:45 06/23/19 09:35 Deltasone - PO 60 mg DAILY BELL Administration Ranitidine HCl 150 mg 06/22/19 22:00 06/23/19 21:34 Zantac - PO 150 mg BID BELL Administration CBC, BMP 06/24/19 06:03 06/24/19 06:03 ASSESSMENT/PLAN: 74 year old female who comes in with fevers and worsening erythema today. She was recently discharged on 06/16 after being treated for cellulitis extending from her R foot up to her abdomen. # Cellulitis VS Vasculitis : ID on Board cont with IV abx Daptomycina nd Azactam and prednisone 60 po daily and zantac , consult Reheumatology and dermatology for possible vasculitis as she is improving with steroids # HTN on Deltiazim and lasix 40 daily , can resume enalapril in AM if K normalized # HLD on Lipitor 10 HS # AFIB on Eliquis 5 BID , Mteoprolol 50 BID # Sleep Apnea , folow up out pt # copd , stable # RA on Hydroxychloroquin #Osteopenia on Vit D , Vit C and b12 # constipation:cont colace # Back pain on Marielena 400 TID # CHronic venous stasis stable on base line Visit type - Emergency Visit Emergency Visit: Yes ED Registration Date: 06/22/19 Care time: The patient presented to the Emergency Department on the above date and was hospitalized for further evaluation of their emergent condition. - New Patient This patient is new to me today: No - Critical Care Critical Care patient: No ATTENDING PHYSICIAN STATEMENT I saw and evaluated the patient. I reviewed the resident's note and discussed the case with the resident. I agree with the resident's findings and plan as documented. SUBJECTIVE: OBJECTIVE: ASSESSMENT AND PLAN:
[2019-06-24] MEDS ORDERED: PT OWN MED DRAWER 7, Y5N ONE (09:26)
[2019-06-24] MEDS: predniSONE 20 MG TABLET (UD) PO SCH (09:52)
[2019-06-24] MEDS: ASCORBIC ACID 500 MG TABLET (FP) PO SCH (09:52)
[2019-06-24] MEDS: FUROSEMIDE 40 MG TABLET (FP) PO SCH (09:53)
[2019-06-24] MEDS: APIXABAN 5 MG TABLET PO SCH ×2 (09:53→21:43)
[2019-06-24] MEDS: RANITIDINE HCL 150 MG TABLET (FP) PO SCH ×2 (09:53→21:44)
[2019-06-24] MEDS: LACTOBACILLUS ACIDOPHILUS 1 TABLET PO SCH (09:53)
[2019-06-24] MEDS: CYANOCOBALAMIN 1,000 MCG TABLET (FP) PO SCH (09:53)
[2019-06-24] MEDS: CHOLECALCIFEROL (VIT D3) 1,000 UNIT (25 MCG) TABLET PO SCH ×2 (09:53→21:43)
[2019-06-24] MEDS: DOCUSATE SODIUM 100 MG CAPSULE (FP) PO SCH ×2 (09:54→21:43)
[2019-06-24] MEDS: CLOTRIMAZOLE 1% CREAM 15 GM TUBE TP SCH ×2 (09:54→21:44)
[2019-06-24] MEDS: HYDROXYCHLOROQUINE SO4 200 MG TABLET (FP) PO SCH (09:54)
[2019-06-24] MEDS: ACETAMINOPHEN 325 MG TABLET (FP) PO PRN ×2 (16:13→21:56)
--- NOTE | 2019-06-24 16:16 | PN ---
Progress Note (short form) - Note Progress Note: clinically much improved alert Vital Signs Period Temp Pulse Resp BP Sys/William Pulse Ox Last 24 Hr 97.8 F-99.0 F 70-85 20-20 102-127/47-71 97-98 cor-rrr lungs decreased bs at bases abd soft,nt less erythema right pannus, less warmth CBC, BMP 06/24/19 06:03 06/24/19 06:03 Microbiology 06/22/19 15:25 Blood - Peripheral Venous Blood Culture - Preliminary NO GROWTH OBTAINED AFTER 48 HOURS, INCUBATION TO CONTINUE FOR 3 DAYS. 06/22/19 15:20 Blood - Peripheral Venous Blood Culture - Preliminary NO GROWTH OBTAINED AFTER 48 HOURS, INCUBATION TO CONTINUE FOR 3 DAYS. 06/22/19 15:33 Urine - Urine - Catheterized Urine Culture - Preliminary Lactose Fermenting Neg Bacilli Current Medications Acetaminophen (Tylenol -) 650 mg PO Q4H PRN PRN Reason: FEVER Last Admin: 06/24/19 16:13 Dose: 650 mg Apixaban (Eliquis -) 5 mg PO BID [facility] Last Admin: 06/24/19 09:53 Dose: 5 mg Ascorbic Acid (Vitamin C -) 1,000 mg PO DAILY [facility] Last Admin: 06/24/19 09:52 Dose: 1,000 mg Atorvastatin Calcium (Lipitor -) 10 mg PO HS [facility] Last Admin: 06/23/19 21:34 Dose: 10 mg Cholecalciferol (Vitamin D3 -) 1,000 unit PO BID [facility] Last Admin: 06/24/19 09:53 Dose: 1,000 unit Clotrimazole (Lotrimin 1% Cream -) 1 applic TP BID [facility] Last Admin: 06/24/19 09:54 Dose: 1 applic Cyanocobalamin (Vitamin B12 -) 1,000 mcg PO DAILY [facility] Last Admin: 06/24/19 09:53 Dose: 1,000 mcg Diltiazem HCl (Cardizem Cd -) 360 mg PO DAILY [facility] Last Admin: 06/24/19 09:53 Dose: 360 mg Docusate Sodium (Colace -) 100 mg PO BID [facility] Last Admin: 06/24/19 09:54 Dose: 100 mg Furosemide (Lasix -) 40 mg PO DAILY [facility] Last Admin: 06/24/19 09:53 Dose: 40 mg Gabapentin (Neurontin -) 400 mg PO TID [facility] Last Admin: 06/24/19 16:13 Dose: 400 mg Hydroxychloroquine Sulfate (Plaquenil -) 200 mg PO DAILY [facility] Last Admin: 06/24/19 09:54 Dose: 200 mg Aztreonam 2 gm/ Dextrose 100 mls @ 100 mls/hr IVPB Q8H-IV [facility]; Protocol Last Admin: 06/24/19 09:54 Dose: 100 mls/hr Daptomycin 500 mg/ Sodium (Chloride) 50 mls @ 50 mls/hr IVPB DAILY@1999 [facility]; Protocol Last Admin: 06/23/19 22:42 Dose: 50 mls/hr Lactobacillus Acidophilus (Bacid -) 1 tab PO DAILY [facility] Last Admin: 06/24/19 09:53 Dose: 1 tab Metoprolol Succinate (Toprol Xl -) 50 mg PO BID [facility] Last Admin: 06/24/19 09:53 Dose: 50 mg Nystatin (Nystop Powder -) 1 applic TP TID PRN PRN Reason: FOR ITCHING Oxycodone HCl (Roxicodone -) 5 mg PO Q4H PRN PRN Reason: PAIN LEVEL 6-10 Last Admin: 06/24/19 06:12 Dose: 5 mg Prednisone (Deltasone -) 60 mg PO DAILY [facility] Last Admin: 06/24/19 09:52 Dose: 60 mg Ranitidine HCl (Zantac -) 150 mg PO BID [facility] Last Admin: 06/24/19 09:53 Dose: 150 mg Senna/Docusate Sodium (Pericolace -) 1 tablet PO HS [facility] a/p recurrent cellulitis ?vasculitis asymptomatic bacteriuria- ua negative, she is asymptomatic multiple antibiotic allergies continue dapto/azactam continue steroids clinically improving Problem List - Problems (1) Fever Code(s): R50.9 - FEVER, UNSPECIFIED (2) Cellulitis Code(s): L03.90 - CELLULITIS, UNSPECIFIED Qualifiers: Site of cellulitis: trunk Site of cellulitis of trunk: abdominal wall Qualified Code(s): L03.311 - Cellulitis of abdominal wall (3) Allergy to multiple antibiotics Code(s): Z88.1 - ALLERGY STATUS TO OTHER ANTIBIOTIC AGENTS STATUS
--- NOTE | 2019-06-24 18:13 | CONSULT ---
Consult Consult Specialty:: Rheumatology - History of Present Illness History of Present Illness: 74 yo female with past medical history of HTN, COPD, Obesity, S/P bilateral knee replacement, osteoarthritis of the left hip with significant damage, Sjogren's syndrome, A. Fib, chronic venous insufficiency, lymphedema, chronic stasis dermatitis and history of recurrent cellulitis, admitted with persistent cellulitis in the right leg and fever. HPI. The patient has had in he past several admissions for celulitis (06/23/17 , 09/10, 11/10, 05/14/19, 06/08/19) On occasions the cellulits and fever did not respons to antibiotices and she was started on Predniosne 60 mg/d with good response (?). She was recently discharged (06/16/19) after one week of zyvox and azactam and prednisone, she went discharged on PO prednisone taper and oral zyvox. On the day opf admission she had progression of cellulitis and relapse of fever (100.2). On admission she was started on Prednisone 60 mg/d, aztreonam and Daptomycin. 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 She has SOB related to COPD and denies arthralgia in hands, or oral ulcers. - History Source History Provided By: Patient, Medical Record - Past Medical History Cardio/Vascular: Yes: AFIB, HTN, Other (h/o DVT, venous stasis ) Pulmonary: Yes: COPD, Sleep Apnea Hepatobiliary: Yes: Other (fatty liver disease) Infectious Disease: Yes: Other (recurrent cellulitis) Musculoskeletal: Yes: Chronic low back pain (/spinal stenosis) Rheumatology: Yes: Rheumatoid Arthritis Endocrine: Yes: Osteopenia, Other (obesity, thyroid nodule) - Past Surgical History Past Surgical History: Yes: Joint Replacement (right knee over 10 years ago) - Alcohol/Substance Use Hx Alcohol Use: No History of Substance Use: reports: None - Smoking History Smoking history: Former smoker Have you smoked in the past 12 months: No Aproximately how many cigarettes per day: 0 If you are a former smoker, when did you quit?: 1984 - Social History Usual Living Arrangement: With Spouse ( disabled) ADL: Support Services History of Recent Travel: No Home Medications - Allergies Allergies/Adverse Reactions: Allergies Allergy/AdvReac Type Severity Reaction Status Date / Time Penicillins Allergy Severe Swelling Verified 06/22/19 14:26 clindamycin Allergy Mild Rash Verified 06/22/19 14:26 doxycycline Allergy Swelling Verified 06/22/19 14:26 levofloxacin [From Levaquin] Allergy Rash Verified 06/22/19 14:26 vancomycin AdvReac Mild Itching Verified 06/22/19 14:26 adhesive tape AdvReac "RIPS MY Verified 06/22/19 14:26 SKIN" - Home Medications Home Medications: Ambulatory Orders Ascorbate Calcium [Vitamin C] 1,000 mg PO DAILY 08/30/15 Cholecalciferol (Vitamin D3) [Vitamin D3] 1,000 unit PO BID 08/30/15 Cyanocobalamin [Vitamin B12 -] 1,000 mcg PO DAILY 08/30/15 Oxycodone/APAP [Percocet - Must Order Individual Components] 1 each NR QID PRN 08/30/15 Simvastatin 10 mg PO HS 08/30/15 Guaifenesin [Mucinex] 600 mg PO DAILY 06/20/17 Metoprolol Succinate [Toprol XL -] 50 mg PO BID #60 tab.sr 06/25/17 Diltiazem [Cardizem -] 360 mg PO DAILY 08/29/17 Furosemide [Lasix] 40 mg PO DAILY PRN 08/29/17 Apixaban [Eliquis] 5 mg PO BID 04/22/19 Enalapril Maleate [Vasotec -] 2.5 mg PO DAILY 05/14/19 Gabapentin [Neurontin] 400 mg PO TID 05/14/19 Hydroxychloroquine Sulfate 200 mg PO DAILY 05/14/19 Ranitidine HCl [Zantac] 150 mg PO BID 05/14/19 Linezolid [Zyvox] 600 mg PO BID #14 tablet 06/16/19 Nystatin Powder [Nystop Powder -] 1 applic TP TID PRN #1 applic 06/16/19 Prednisone [Deltasone] 20 mg PO DAILY 06/22/19 Family Disease History - Family Disease History Family Disease History: Other: Father (alcohol abuse), Mother (rheumatoid arthritis) Review of Systems - Review of Systems Constitutional: reports: Fever, Malaise Eyes: reports: No Symptoms HENT: reports: No Symptoms Neck: reports: No Symptoms ( ssssssssssssssssssssssssssssssssssssssssssssssssssssssss) Cardiovascular: reports: No Symptoms Respiratory: reports: SOB Gastrointestinal: reports: No Symptoms Integumentary: reports: Other (See HPI) Physical Exam Vital Signs: Vital Signs Temperature 98.4 F 06/24/19 17:45 Pulse Rate 88 06/24/19 17:45 Respiratory Rate 20 06/24/19 17:45 Blood Pressure 118/63 06/24/19 17:45 O2 Sat by Pulse Oximetry (%) 98 06/24/19 09:00 Constitutional: Yes: Mild Distress Eyes: Yes: WNL HENT: Yes: WNL Cardiovascular: Yes: WNL Respiratory: Yes: Other (Few crackles in bases.) Musculoskeletal: Yes: Other (No active joints. The patient does not have rheumatoid arthritis or other inflammatory arthritis.) Integumentary: Yes: Other (Erythema in abdomen in RLQ and in the right leg.) Labs: CBC, BMP 06/24/19 06:03 06/24/19 06:03 Laboratory Tests 06/22/19 06/23/19 06/23/19 15:54 06:00 06:30 ESR 28 Calcium Phosphorus Magnesium Total Bilirubin AST ALT Alkaline Phosphatase Creatine Kinase 10 L Total Protein Albumin Urine Color Yellow Urine Appearance Clear Urine pH 7.0 D Ur Specific [place] 1.020 Urine Protein Negative Urine Glucose (UA) Negative Urine Ketones Negative Urine Blood Negative Urine Nitrite Negative Urine Bilirubin Negative Urine Urobilinogen 2.0 H Ur Leukocyte Esterase Negative Rheumatoid Factor 06/23/19 06/24/19 06:30 06:03 ESR Calcium 9.0 Phosphorus 3.9 Magnesium 2.1 Total Bilirubin 0.4 AST 6 L ALT 22 Alkaline Phosphatase 89 Creatine Kinase Total Protein 6.0 L Albumin 2.6 L Urine Color Urine Appearance Urine pH Ur Specific [place] Urine Protein Urine Glucose (UA) Urine Ketones Urine Blood Urine Nitrite Urine Bilirubin Urine Urobilinogen Ur Leukocyte Esterase Rheumatoid Factor 14.0 Imaging - Results Chest X-ray: Report Reviewed (Portable./ Enlarged hilium, no infiltrates.) Problem List - Problems (1) Cellulitis Assessment/Plan: Recurrent cellulitis in patient with stasis dermatitis. In the present admission and in the past she reuiored steroids for control of fever. Rule out CTD. Skin erythema is not suggestive of vasculitis. Plan: Start tapering steroids. Labs. CXR Code(s): L03.90 - CELLULITIS, UNSPECIFIED Qualifiers: Site of cellulitis: trunk Site of cellulitis of trunk: unspecified site Qualified Code(s): L03.319 - Cellulitis of trunk, unspecified (2) Fever Assessment/Plan: Fever controlled with steroids. R/O CTD. Code(s): R50.9 - FEVER, UNSPECIFIED
--- NOTE | 2019-06-24 18:21 | PN ---
Teaching Attending Note Name of Resident: Sky Romero ATTENDING PHYSICIAN STATEMENT I saw and evaluated the patient. I reviewed the resident's note and discussed the case with the resident. I agree with the resident's findings and plan as documented with exceptions below. SUBJECTIVE: patient seen and examined, right thigh leg symptoms improved, no further fevers. OBJECTIVE: Vital Signs Period Temp Pulse Resp BP Sys/William Pulse Ox Last 24 Hr 97.8 F-98.9 F 70-88 20-20 102-127/47-71 97-98 Intake & Output 06/21/19 06/22/19 06/23/19 06/24/19 23:59 23:59 23:59 23:59 Intake Total 200 1210 650 Balance 200 1210 650 Weight 260 lb General: sitting in chair in no acute distress Chest: decreased effort Abdomen:soft, obese Extremities: minimal erythema, right lower abdomen/right thigh, RLE chronic dermatitis with dressing Home Medications Medication Instructions Recorded Ascorbate Calcium [Vitamin C] 1,000 mg PO DAILY 08/30/15 Cholecalciferol (Vitamin D3) 1,000 unit PO BID 08/30/15 [Vitamin D3] Cyanocobalamin [Vitamin B12 -] 1,000 mcg PO DAILY 08/30/15 Oxycodone/APAP [Percocet - Must 1 each NR QID PRN 08/30/15 Order Individual Components] Simvastatin 10 mg PO HS 08/30/15 Guaifenesin [Mucinex] 600 mg PO DAILY 06/20/17 Metoprolol Succinate [Toprol XL -] 50 mg PO BID #60 tab.sr 06/25/17 Diltiazem [Cardizem -] 360 mg PO DAILY 08/29/17 Furosemide [Lasix] 40 mg PO DAILY PRN 08/29/17 Apixaban [Eliquis] 5 mg PO BID 04/22/19 Enalapril Maleate [Vasotec -] 2.5 mg PO DAILY 05/14/19 Gabapentin [Neurontin] 400 mg PO TID 05/14/19 Hydroxychloroquine Sulfate 200 mg PO DAILY 05/14/19 Ranitidine HCl [Zantac] 150 mg PO BID 05/14/19 Linezolid [Zyvox] 600 mg PO BID #14 tablet 06/16/19 Nystatin Powder [Nystop Powder -] 1 applic TP TID PRN #1 applic 06/16/19 Prednisone [Deltasone] 20 mg PO DAILY 06/22/19 Active Medications Acetaminophen (Tylenol -) 650 mg PO Q4H PRN PRN Reason: FEVER Last Admin: 06/24/19 16:13 Dose: 650 mg Apixaban (Eliquis -) 5 mg PO BID [facility] Last Admin: 06/24/19 09:53 Dose: 5 mg Ascorbic Acid (Vitamin C -) 1,000 mg PO DAILY [facility] Last Admin: 06/24/19 09:52 Dose: 1,000 mg Atorvastatin Calcium (Lipitor -) 10 mg PO HS [facility] Last Admin: 06/23/19 21:34 Dose: 10 mg Cholecalciferol (Vitamin D3 -) 1,000 unit PO BID [facility] Last Admin: 06/24/19 09:53 Dose: 1,000 unit Clotrimazole (Lotrimin 1% Cream -) 1 applic TP BID [facility] Last Admin: 06/24/19 09:54 Dose: 1 applic Cyanocobalamin (Vitamin B12 -) 1,000 mcg PO DAILY [facility] Last Admin: 06/24/19 09:53 Dose: 1,000 mcg Diltiazem HCl (Cardizem Cd -) 360 mg PO DAILY [facility] Last Admin: 06/24/19 09:53 Dose: 360 mg Docusate Sodium (Colace -) 100 mg PO BID [facility] Last Admin: 06/24/19 09:54 Dose: 100 mg Furosemide (Lasix -) 40 mg PO DAILY [facility] Last Admin: 06/24/19 09:53 Dose: 40 mg Gabapentin (Neurontin -) 400 mg PO TID [facility] Last Admin: 06/24/19 16:13 Dose: 400 mg Hydroxychloroquine Sulfate (Plaquenil -) 200 mg PO DAILY [facility] Last Admin: 06/24/19 09:54 Dose: 200 mg Aztreonam 2 gm/ Dextrose 100 mls @ 100 mls/hr IVPB Q8H-IV [facility]; Protocol Last Admin: 06/24/19 17:27 Dose: 100 mls/hr Daptomycin 500 mg/ Sodium (Chloride) 50 mls @ 50 mls/hr IVPB DAILY@2000 [facility]; Protocol Last Admin: 06/23/19 22:42 Dose: 50 mls/hr Lactobacillus Acidophilus (Bacid -) 1 tab PO DAILY [facility] Last Admin: 06/24/19 09:53 Dose: 1 tab Metoprolol Succinate (Toprol Xl -) 50 mg PO BID [facility] Last Admin: 06/24/19 09:53 Dose: 50 mg Nystatin (Nystop Powder -) 1 applic TP TID PRN PRN Reason: FOR ITCHING Oxycodone HCl (Roxicodone -) 5 mg PO Q4H PRN PRN Reason: PAIN LEVEL 6-10 Last Admin: 06/24/19 06:12 Dose: 5 mg Prednisone (Deltasone -) 60 mg PO DAILY [facility] Last Admin: 06/24/19 09:52 Dose: 60 mg Ranitidine HCl (Zantac -) 150 mg PO BID [facility] Last Admin: 06/24/19 09:53 Dose: 150 mg Senna/Docusate Sodium (Pericolace -) 1 tablet PO [facility] Laboratory Results - last 24 hr 06/24/19 06/24/19 06:03 06:03 WBC 6.5 RBC 4.66 Hgb 12.9 Hct 39.9 MCV 85.8 MCH 27.7 MCHC 32.3 RDW 19.4 H Plt Count 219 D MPV 7.7 Absolute Neuts (auto) 4.3 Neutrophils % 67.1 Lymphocytes % 20.2 D Monocytes % 11.1 H Eosinophils % 1.4 D Basophils % 0.2 D Nucleated RBC % 0 Sodium 142 Potassium 4.0 Chloride 96 L Carbon Dioxide 41 H Anion Gap 4 L BUN 17.2 Creatinine 0.4 L Est GFR (CKD-EPI)AfAm 120.60 Est GFR (CKD-EPI)NonAf 104.06 Random Glucose 63 L Calcium 9.0 Phosphorus 3.9 Magnesium 2.1 Total Bilirubin 0.4 AST 6 L ALT 22 Alkaline Phosphatase 89 Total Protein 6.0 L Albumin 2.6 L Microbiology 06/22/19 15:25 Blood - Peripheral Venous Blood Culture - Preliminary NO GROWTH OBTAINED AFTER 48 HOURS, INCUBATION TO CONTINUE FOR 3 DAYS. 06/22/19 15:20 Blood - Peripheral Venous Blood Culture - Preliminary NO GROWTH OBTAINED AFTER 48 HOURS, INCUBATION TO CONTINUE FOR 3 DAYS. 06/22/19 15:33 Urine - Urine - Catheterized Urine Culture - Preliminary Lactose Fermenting Neg Bacilli ASSESSMENT AND PLAN: 74 yof with PMHx of Afib on eliquis, OA, RA, Sjogren's, COPDo n 4L home oxygen, venous stasis dermatitis, VRE, pseudomonas, recurrent RLE cellulitis, admitted with sepsis -Sepsis due to RLE cellulitis -Chronic right leg severe dermatitis -Asymptomatic bacteruria -RA/Sjogrens's -OA -COPD on 4L home oxygen -Afib on eliquis Plan: Aztreonam/daptomycin/prednisone. Current Right thigh/right lower abdomen findings markedly improved from recent admissions. patient with recurrent admissions, unclear if related to prednisone taper or poor care/hygeine at home. Rheumatology input if can be a candidate for steroid sparing agents, given high suspicion for dermatitis/vasculitis rather than infectious process. Has declined SNF on multiple occasions. Non ambulatory at baseline. Continue diltiazem/metoprolol/eliquis. DVTPPX eliquis Dispo pending clinical improvement.
[2019-06-24] MEDS: DAPTOMYCIN 500 MG in SODIUM CHLORIDE 50 ML IVPB SCH (21:42)
[2019-06-24] MEDS: ATORVASTATIN CA 10 MG TABLET (FP) PO SCH (21:43)
[2019-06-24] MEDS: SENNOSIDES/DOCUSATE COMBO (SENNA PLUS) TABLET (UD) PO SCH (21:44)
[2019-06-25] MEDS: AZTREONAM 2 GM in DEXTROSE 5%-WATER 100 ML IVPB SCH ×3 (01:29→17:28)
[2019-06-25] MEDS: GABAPENTIN 400 MG CAPSULE (FP) PO SCH ×3 (05:51→23:14)
[2019-06-25] MEDS: ACETAMINOPHEN 325 MG TABLET (FP) PO PRN ×3 (05:51→23:13)
[2019-06-25 07:29] LABS: BASO % 0.1 % (0-2.0); EOS % 0.9 % (0-4.5); HEMATOCRIT 38.2 % (32.4-45.2); HEMOGLOBIN 12.4 GM/dL (10.7-15.3); LYMPH % 18.9 % (8-40); MCH 27.5 pg (25.7-33.7); MCHC 32.5 g/dl (32.0-36.0); MEAN CELL VOLUME 84.8 fl (80-96); MEAN PLT VOLUME 7.4 fl (7.5-11.1); MONO % 11.1 % (3.8-10.2); PLATELET COUNT 241 K/MM3 (134-434); RDW 18.4 % (11.6-15.6); WHITE BLOOD COUNT 6.8 K/mm3 (4.0-10.0)
[2019-06-25 07:52] LABS: ALBUMIN 2.5 g/dl (3.4-5.0); BILIRUBIN,TOTAL 0.3 mg/dL (0.2-1); CALCIUM 8.7 mg/dL (8.5-10.1); CREATININE 0.4 mg/dL (0.55-1.3); MAGNESIUM 1.9 mg/dL (1.8-2.4); PHOSPHOROUS 3.3 mg/dL (2.5-4.9); POTASSIUM 4.2 mmol/L (3.5-5.1); TOT PROT 5.6 g/dl (6.4-8.2)
[2019-06-25] MEDS ORDERED: PT OWN MED DRAWER 7, Y5N ONE ×2 (10:26→17:24)
[2019-06-25] MEDS: RANITIDINE HCL 150 MG TABLET (FP) PO SCH ×2 (10:28→23:14)
[2019-06-25] MEDS: ASCORBIC ACID 500 MG TABLET (FP) PO SCH (10:28)
[2019-06-25] MEDS: APIXABAN 5 MG TABLET PO SCH ×2 (10:28→23:09)
[2019-06-25] MEDS: FUROSEMIDE 40 MG TABLET (FP) PO SCH (10:29)
[2019-06-25] MEDS: CYANOCOBALAMIN 1,000 MCG TABLET (FP) PO SCH (10:29)
[2019-06-25] MEDS: predniSONE 20 MG TABLET (UD) PO SCH (10:29)
[2019-06-25] MEDS: CLOTRIMAZOLE 1% CREAM 15 GM TUBE TP SCH ×2 (10:30→23:14)
[2019-06-25] MEDS: HYDROXYCHLOROQUINE SO4 200 MG TABLET (FP) PO SCH (10:30)
[2019-06-25] MEDS: DOCUSATE SODIUM 100 MG CAPSULE (FP) PO SCH ×2 (10:30→23:15)
[2019-06-25] MEDS: CHOLECALCIFEROL (VIT D3) 1,000 UNIT (25 MCG) TABLET PO SCH ×2 (10:31→23:14)
[2019-06-25] MEDS: LACTOBACILLUS ACIDOPHILUS 1 TABLET PO SCH (10:32)
[2019-06-25 10:50] LABS: ERYTHROCYTE SEDIMENTATION RATE 15 mm/hr (0-30)
--- NOTE | 2019-06-25 13:48 | PN ---
Physical Exam: SUBJECTIVE: Patient seen and examined, right leg symptoms improved, no further fevers or concerns. OBJECTIVE: Vital Signs Period Temp Pulse Resp BP Sys/William Pulse Ox Last 24 Hr 97.8 F-98.4 F 70-88 20-20 102-127/47-77 98 Intake & Output 06/22/19 06/23/19 06/24/19 06/25/19 23:59 23:59 23:59 23:59 Intake Total 200 1210 950 700 Balance 200 1210 950 700 Weight 260 lb 260 lb GENERAL: sitting in bed in no acute distress Neck: soft supple HEENT: normocephalic, atraumatic Chest: limited by habitus, no rales or wheezing Abdomen: Soft, NT, almost resolved Right lower abdomen erythema Extremities: right thigh erythema almost resolved. bilateral LE chronic dermatitis findings unchanged Psych: appropriate, co-operative Laboratory Results - last 24 hr 06/23/19 06/25/19 06/25/19 06:30 06:08 06:08 WBC 6.8 RBC 4.50 Hgb 12.4 Hct 38.2 MCV 84.8 MCH 27.5 MCHC 32.5 RDW 18.4 H Plt Count 241 MPV 7.4 L Absolute Neuts (auto) 4.7 Neutrophils % 69.0 Lymphocytes % 18.9 Monocytes % 11.1 H Eosinophils % 0.9 Basophils % 0.1 Nucleated RBC % 0 ESR 15 Sodium 142 Potassium 4.2 Chloride 98 Carbon Dioxide 42 H Anion Gap 2 L BUN 20.0 H Creatinine 0.4 L Est GFR (CKD-EPI)AfAm 120.60 Est GFR (CKD-EPI)NonAf 104.06 Random Glucose 81 Calcium 8.7 Phosphorus 3.3 Magnesium 1.9 Total Bilirubin 0.3 AST 8 L ALT 18 Alkaline Phosphatase 79 Total Protein 5.6 L Albumin 2.5 L Cycl Citrul Peptide IgG 2 Active Medications Home Medications Medication Instructions Recorded Ascorbate Calcium [Vitamin C] 1,000 mg PO DAILY 08/30/15 Cholecalciferol (Vitamin D3) 1,000 unit PO BID 08/30/15 [Vitamin D3] Cyanocobalamin [Vitamin B12 -] 1,000 mcg PO DAILY 08/30/15 Oxycodone/APAP [Percocet - Must 1 each NR QID PRN 08/30/15 Order Individual Components] Simvastatin 10 mg PO HS 08/30/15 Guaifenesin [Mucinex] 600 mg PO DAILY 06/20/17 Metoprolol Succinate [Toprol XL -] 50 mg PO BID #60 tab.sr 06/25/17 Diltiazem [Cardizem -] 360 mg PO DAILY 08/29/17 Furosemide [Lasix] 40 mg PO DAILY PRN 08/29/17 Apixaban [Eliquis] 5 mg PO BID 04/22/19 Enalapril Maleate [Vasotec -] 2.5 mg PO DAILY 05/14/19 Gabapentin [Neurontin] 400 mg PO TID 05/14/19 Hydroxychloroquine Sulfate 200 mg PO DAILY 05/14/19 Ranitidine HCl [Zantac] 150 mg PO BID 05/14/19 Linezolid [Zyvox] 600 mg PO BID #14 tablet 06/16/19 Nystatin Powder [Nystop Powder -] 1 applic TP TID PRN #1 applic 06/16/19 Prednisone [Deltasone] 20 mg PO DAILY 06/22/19 Generic Name Dose Route Start Last Admin Trade Name Alfaq PRN Reason Stop Dose Admin Acetaminophen 650 mg 06/22/19 17:38 06/25/19 10:32 Tylenol - PO 650 mg Q4H PRN Administration FEVER Apixaban 5 mg 06/22/19 22:00 06/25/19 10:28 Eliquis - PO 5 mg BID [facility] Administration Ascorbic Acid 1,000 mg 06/23/19 10:00 06/25/19 10:28 Vitamin C - PO 1,000 mg DAILY [facility] Administration Atorvastatin Calcium 10 mg 06/22/19 22:00 06/24/19 21:43 Lipitor - PO 10 mg HS [facility] Administration Cholecalciferol 1,000 unit 06/22/19 22:00 06/25/19 10:31 Vitamin D3 - PO 1,000 unit BID [facility] Administration Clotrimazole 1 applic 06/23/19 10:00 06/25/19 10:30 Lotrimin 1% Cream - TP 1 applic BID [facility] Administration Cyanocobalamin 1,000 mcg 06/23/19 10:00 06/25/19 10:29 Vitamin B12 - PO 1,000 mcg DAILY [facility] Administration Diltiazem HCl 360 mg 06/23/19 10:00 06/25/19 12:36 Cardizem Cd - PO 360 mg DAILY [facility] Administration Docusate Sodium 100 mg 06/22/19 22:00 06/25/19 10:30 Colace - PO 100 mg BID [facility] Administration Furosemide 40 mg 06/23/19 10:00 06/25/19 10:29 Lasix - PO Not Given DAILY [facility] Gabapentin 400 mg 06/22/19 22:00 06/25/19 05:51 Neurontin - PO 400 mg TID [facility] Administration Hydroxychloroquine Sulfate 200 mg 06/23/19 10:00 06/25/19 10:30 Plaquenil - PO 200 mg DAILY [facility] Administration Aztreonam 2 gm/ Dextrose 100 mls @ 100 mls/hr 06/23/19 08:00 06/25/19 11:25 IVPB 100 mls/hr Q8H-IV [facility] Administration Protocol Daptomycin 500 mg/ Sodium 50 mls @ 50 mls/hr 06/23/19 20:00 06/24/19 21:42 Chloride IVPB 50 mls/hr DAILY@2000 [facility] Administration Protocol Lactobacillus Acidophilus 1 tab 06/23/19 10:00 06/25/19 10:32 Bacid - PO 1 tab DAILY [facility] Administration Metoprolol Succinate 50 mg 06/22/19 22:00 06/25/19 10:30 Toprol Xl - PO 50 mg BID [facility] Administration Nystatin 1 applic 06/22/19 17:33 Nystop Powder - TP TID PRN FOR ITCHING Oxycodone HCl 5 mg 06/22/19 17:38 06/24/19 06:12 Roxicodone - PO 5 mg Q4H PRN Administration PAIN LEVEL 6-10 Prednisone 40 mg 06/25/19 10:00 06/25/19 10:29 Deltasone - PO 40 mg DAILY [facility] Administration Ranitidine HCl 150 mg 06/22/19 22:00 06/25/19 10:28 Zantac - PO 150 mg BID [facility] Administration Senna/Docusate Sodium 1 tablet 06/24/19 22:00 06/24/19 21:44 Pericolace - PO 1 tablet HS [facility] Administration Microbiology 06/22/19 15:33 Urine - Urine - Catheterized Urine Culture - Preliminary Klebsiella Pneumoniae - Esbl 06/22/19 15:25 Blood - Peripheral Venous Blood Culture - Preliminary NO GROWTH OBTAINED AFTER 48 HOURS, INCUBATION TO CONTINUE FOR 3 DAYS. 06/22/19 15:20 Blood - Peripheral Venous Blood Culture - Preliminary NO GROWTH OBTAINED AFTER 48 HOURS, INCUBATION TO CONTINUE FOR 3 DAYS. ASSESSMENT/PLAN: 74 yof with PMHx of Afib on eliquis, OA, RA, Sjogren's, COPDo n 4L home oxygen, venous stasis dermatitis, VRE, pseudomonas, recurrent RLE cellulitis, admitted with sepsis -Sepsis due to recurrent RLE cellulitis -Chronic right leg severe dermatitis -Asymptomatic ESBL Bacteruria -RA/Sjogrens's -OA -COPD on 4L home oxygen -Afib on eliquis Plan: Aztreonam/daptomycin/prednisone. Markedly improved exam from recent admission. Rheumatology input noted, prednisone taper. Discuss with ID about abx taper. Afebrile, normal WBC. Non ambulatory at baseline, agreable to home VNS/PT but declines SNF. Continue diltiazem/metoprolol/eliquis. DVTPPX eliquis Dispo home with services in 24-48 hours pending ID input and disposition arrangements. Discussed with patient, all questions answered. Visit type - Emergency Visit Emergency Visit: Yes ED Registration Date: 06/22/19 Care time: The patient presented to the Emergency Department on the above date and was hospitalized for further evaluation of their emergent condition. - New Patient This patient is new to me today: No - Critical Care Critical Care patient: No - Discharge Referral Referred to [facility] Med P.C.: No
--- NOTE | 2019-06-25 15:39 | PN ---
Progress Note (short form) - Note Progress Note: clinically much improved alert Vital Signs Period Temp Pulse Resp BP Sys/William Pulse Ox Last 24 Hr 98.1 F-98.4 F 75-88 20-20 115-127/60-77 98 cor-rrr lungs clear abd soft,nless erythema of the right pannus ext venous stasis CBC, BMP 06/25/19 06:08 06/25/19 06:08 Microbiology 06/22/19 15:33 Urine - Urine - Catheterized Urine Culture - Preliminary Klebsiella Pneumoniae - Esbl 06/22/19 15:25 Blood - Peripheral Venous Blood Culture - Preliminary NO GROWTH OBTAINED AFTER 48 HOURS, INCUBATION TO CONTINUE FOR 3 DAYS. 06/22/19 15:20 Blood - Peripheral Venous Blood Culture - Preliminary NO GROWTH OBTAINED AFTER 48 HOURS, INCUBATION TO CONTINUE FOR 3 DAYS. a/p recurrent cellulitis- am not sure this is infectious ?vasculitis asymptomatic bacteriuria- ua negative, she is asymptomatic multiple antibiotic allergies d/c azactam continue daptomycin clinically improving Problem List - Problems (1) Fever Code(s): R50.9 - FEVER, UNSPECIFIED (2) Cellulitis Code(s): L03.90 - CELLULITIS, UNSPECIFIED Qualifiers: Site of cellulitis: trunk Site of cellulitis of trunk: unspecified site Qualified Code(s): L03.319 - Cellulitis of trunk, unspecified (3) Allergy to multiple antibiotics Code(s): Z88.1 - ALLERGY STATUS TO OTHER ANTIBIOTIC AGENTS STATUS
[2019-06-25] MEDS: DAPTOMYCIN 500 MG in SODIUM CHLORIDE 50 ML IVPB SCH (23:09)
[2019-06-25] MEDS: ATORVASTATIN CA 10 MG TABLET (FP) PO SCH (23:13)
[2019-06-25] MEDS: SENNOSIDES/DOCUSATE COMBO (SENNA PLUS) TABLET (UD) PO SCH (23:15)
[2019-06-26] MEDS: ACETAMINOPHEN 325 MG TABLET (FP) PO PRN ×3 (07:06→17:06)
[2019-06-26] MEDS: GABAPENTIN 400 MG CAPSULE (FP) PO SCH ×3 (07:06→22:25)
[2019-06-26 07:10] LABS: BASO % 0.2 % (0-2.0); MEAN CELL VOLUME 85.7 fl (80-96); WHITE BLOOD COUNT 7.9 K/mm3 (4.0-10.0)
[2019-06-26 07:27] LABS: EOS % 1.2 % (0-4.5); HEMATOCRIT 40.2 % (32.4-45.2); HEMOGLOBIN 12.9 GM/dL (10.7-15.3); LYMPH % 20.7 % (8-40); MCH 27.6 pg (25.7-33.7); MCHC 32.2 g/dl (32.0-36.0); MEAN PLT VOLUME 7.4 fl (7.5-11.1); MONO % 8.3 % (3.8-10.2); NEUT % 69.6 % (42.8-82.8); RBC 4.69 M/mm3 (3.60-5.2); RDW 19.1 % (11.6-15.6)
[2019-06-26 08:36] LABS: PLATELET COUNT 238 K/MM3 (134-434)
[2019-06-26] MEDS: HYDROXYCHLOROQUINE SO4 200 MG TABLET (FP) PO SCH (09:50)
[2019-06-26] MEDS: FUROSEMIDE 40 MG TABLET (FP) PO SCH (09:50)
[2019-06-26] MEDS: predniSONE 20 MG TABLET (UD) PO SCH (09:50)
[2019-06-26] MEDS: CHOLECALCIFEROL (VIT D3) 1,000 UNIT (25 MCG) TABLET PO SCH ×2 (09:50→22:25)
[2019-06-26] MEDS: RANITIDINE HCL 150 MG TABLET (FP) PO SCH ×2 (09:50→22:26)
[2019-06-26] MEDS: ASCORBIC ACID 500 MG TABLET (FP) PO SCH (09:51)
[2019-06-26] MEDS: CYANOCOBALAMIN 1,000 MCG TABLET (FP) PO SCH (09:51)
[2019-06-26] MEDS: APIXABAN 5 MG TABLET PO SCH ×2 (09:51→22:25)
[2019-06-26] MEDS: LACTOBACILLUS ACIDOPHILUS 1 TABLET PO SCH (09:51)
[2019-06-26] MEDS: DOCUSATE SODIUM 100 MG CAPSULE (FP) PO SCH ×2 (09:51→22:24)
--- NOTE | 2019-06-26 09:56 | PN ---
Progress Note (short form) - Note Progress Note: clinically much improved alert chart reviewed- after 2017 her first inpatient admission was this year 03/2019 when she had erythema of the upper thigh for the first time Vital Signs Period Temp Pulse Resp BP Sys/William Pulse Ox Last 24 Hr 98.1 F-99.1 F 73-95 20-20 115-127/46-62 98 no thrush cor rrr lungs clear abd +erythema of the pannus on the right- still pink ext legs are wrapped CBC, BMP 06/26/19 06:15 Microbiology 06/22/19 15:25 Blood - Peripheral Venous Blood Culture - Preliminary NO GROWTH OBTAINED AFTER 72 HOURS, INCUBATION TO CONTINUE FOR 2 DAYS. 06/22/19 15:20 Blood - Peripheral Venous Blood Culture - Preliminary NO GROWTH OBTAINED AFTER 72 HOURS, INCUBATION TO CONTINUE FOR 2 DAYS. 06/22/19 15:33 Urine - Urine - Catheterized Urine Culture - Preliminary Klebsiella Pneumoniae - Esbl Current Medications Acetaminophen (Tylenol -) 650 mg PO Q4H PRN PRN Reason: FEVER Last Admin: 06/26/19 07:06 Dose: 650 mg Apixaban (Eliquis -) 5 mg PO BID [facility] Last Admin: 06/26/19 09:51 Dose: 5 mg Ascorbic Acid (Vitamin C -) 1,000 mg PO DAILY [facility] Last Admin: 06/26/19 09:51 Dose: 1,000 mg Atorvastatin Calcium (Lipitor -) 10 mg PO HS [facility] Last Admin: 06/25/19 23:13 Dose: 10 mg Cholecalciferol (Vitamin D3 -) 1,000 unit PO BID [facility] Last Admin: 06/26/19 09:50 Dose: 1,000 unit Clotrimazole (Lotrimin 1% Cream -) 1 applic TP BID [facility] Last Admin: 06/25/19 23:14 Dose: 1 applic Cyanocobalamin (Vitamin B12 -) 1,000 mcg PO DAILY [facility] Last Admin: 06/26/19 09:51 Dose: 1,000 mcg Diltiazem HCl (Cardizem Cd -) 360 mg PO DAILY [facility] Last Admin: 06/26/19 09:51 Dose: 360 mg Docusate Sodium (Colace -) 100 mg PO BID [facility] Last Admin: 06/26/19 09:51 Dose: 100 mg Furosemide (Lasix -) 40 mg PO DAILY [facility] Last Admin: 06/26/19 09:50 Dose: 40 mg Gabapentin (Neurontin -) 400 mg PO TID [facility] Last Admin: 06/26/19 07:06 Dose: 400 mg Hydroxychloroquine Sulfate (Plaquenil -) 200 mg PO DAILY [facility] Last Admin: 06/26/19 09:50 Dose: 200 mg Daptomycin 500 mg/ Sodium (Chloride) 50 mls @ 50 mls/hr IVPB DAILY@2000 [facility]; Protocol Last Admin: 06/25/19 23:09 Dose: 50 mls/hr Lactobacillus Acidophilus (Bacid -) 1 tab PO DAILY [facility] Last Admin: 06/26/19 09:51 Dose: 1 tab Metoprolol Succinate (Toprol Xl -) 50 mg PO BID [facility] Last Admin: 06/26/19 09:50 Dose: 50 mg Nystatin (Nystop Powder -) 1 applic TP TID PRN PRN Reason: FOR ITCHING Oxycodone HCl (Roxicodone -) 5 mg PO Q4H PRN PRN Reason: PAIN LEVEL 6-10 Last Admin: 06/24/19 06:12 Dose: 5 mg Prednisone (Deltasone -) 40 mg PO DAILY [facility] Last Admin: 06/26/19 09:50 Dose: 40 mg Ranitidine HCl (Zantac -) 150 mg PO BID [facility] Last Admin: 06/26/19 09:50 Dose: 150 mg Senna/Docusate Sodium (Pericolace -) 1 tablet PO HS [facility] Last Admin: 06/25/19 23:15 Dose: Not Given a/p recurrent cellulitis- day #5 daptomycin ?vasculitis-seologies pending asymptomatic bacteriuria- ua negative, she is asymptomatic multiple antibiotic allergies would continue daptomycin through the weekend as we have no good po options with plans for discharge on Saturday off antibiotics she should see public relations professional 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
[2019-06-26 10:11] LABS: ALBUMIN 2.6 g/dl (3.4-5.0); BILIRUBIN,TOTAL 0.2 mg/dL (0.2-1); BLOOD UREA NITROGEN 18.2 mg/dL (7-18); CALCIUM 8.5 mg/dL (8.5-10.1); CREATININE 0.4 mg/dL (0.55-1.3); TOT PROT 5.5 g/dl (6.4-8.2)
[2019-06-26] MEDS: CLOTRIMAZOLE 1% CREAM 15 GM TUBE TP SCH ×2 (11:11→22:37)
[2019-06-26] MEDS: oxyCODONE HCL 5 MG TABLET PO PRN ×2 (13:12→17:06)
--- NOTE | 2019-06-26 15:58 | PN ---
Physical Exam: SUBJECTIVE: Patient seen and examined, right thigh/abdomen symptoms improved. OBJECTIVE: Vital Signs Period Temp Pulse Resp BP Sys/William Pulse Ox Last 24 Hr 98.1 F-99.1 F 73-85 20-20 118-127/46-73 98-98 Intake & Output 06/23/19 06/24/19 06/25/19 06/26/19 23:59 23:59 23:59 23:59 Intake Total 6849 799 1220 400 Output Total 1400 1000 Balance 1210 950 -250 -600 Weight 260 lb GENERAL: sitting in bed in no acute distress Neck: soft supple HEENT: normocephalic, atraumatic Chest: limited by habitus, no rales or wheezing Abdomen: Soft, NT, almost resolved Right lower abdomen erythema Extremities: right thigh erythema almost resolved. bilateral LE chronic dermatitis findings unchanged Psych: appropriate, co-operative Laboratory Results - last 24 hr 06/26/19 06/26/19 06:15 06:15 WBC 7.9 RBC 4.69 Hgb 12.9 Hct 40.2 MCV 85.7 MCH 27.6 MCHC 32.2 RDW 19.1 H Plt Count 238 MPV 7.4 L Absolute Neuts (auto) 5.5 Neutrophils % 69.6 Lymphocytes % 20.7 Monocytes % 8.3 Eosinophils % 1.2 Basophils % 0.2 Nucleated RBC % 0 Sodium 143 Potassium 5.0 Chloride 102 Carbon Dioxide 35 H Anion Gap 6 L BUN 18.2 H Creatinine 0.4 L Est GFR (CKD-EPI)AfAm 120.60 Est GFR (CKD-EPI)NonAf 104.06 Random Glucose 65 L Calcium 8.5 Total Bilirubin 0.2 AST 13 L ALT 18 Alkaline Phosphatase 73 Total Protein 5.5 L Albumin 2.6 L Active Medications Generic Name Dose Route Start Last Admin Trade Name Freq PRN Reason Stop Dose Admin Acetaminophen 650 mg 06/22/19 17:38 06/26/19 13:10 Tylenol - PO 650 mg Q4H PRN Administration FEVER Apixaban 5 mg 06/22/19 22:00 06/26/19 09:51 Eliquis - PO 5 mg BID [facility] Administration Ascorbic Acid 1,000 mg 06/23/19 10:00 06/26/19 09:51 Vitamin C - PO 1,000 mg DAILY [facility] Administration Atorvastatin Calcium 10 mg 06/22/19 22:00 06/25/19 23:13 Lipitor - PO 10 mg HS [facility] Administration Cholecalciferol 1,000 unit 06/22/19 22:00 06/26/19 09:50 Vitamin D3 - PO 1,000 unit BID [facility] Administration Clotrimazole 1 applic 06/23/19 10:00 06/26/19 11:11 Lotrimin 1% Cream - TP 1 applic BID [facility] Administration Cyanocobalamin 1,000 mcg 06/23/19 10:00 06/26/19 09:51 Vitamin B12 - PO 1,000 mcg DAILY [facility] Administration Diltiazem HCl 360 mg 06/23/19 10:00 06/26/19 09:51 Cardizem Cd - PO 360 mg DAILY [facility] Administration Docusate Sodium 100 mg 06/22/19 22:00 06/26/19 09:51 Colace - PO 100 mg BID [facility] Administration Furosemide 40 mg 06/23/19 10:00 06/26/19 09:50 Lasix - PO 40 mg DAILY [facility] Administration Gabapentin 400 mg 06/22/19 22:00 06/26/19 13:14 Neurontin - PO 400 mg TID [facility] Administration Hydroxychloroquine Sulfate 200 mg 06/23/19 10:00 06/26/19 09:50 Plaquenil - PO 200 mg DAILY [facility] Administration Daptomycin 500 mg/ Sodium 50 mls @ 50 mls/hr 06/23/19 20:00 06/25/19 23:09 Chloride IVPB 50 mls/hr DAILY@2000 [facility] Administration Protocol Lactobacillus Acidophilus 1 tab 06/23/19 10:00 06/26/19 09:51 Bacid - PO 1 tab DAILY [facility] Administration Metoprolol Succinate 50 mg 06/22/19 22:00 06/26/19 09:50 Toprol Xl - PO 50 mg BID [facility] Administration Nystatin 1 applic 06/22/19 17:33 Nystop Powder - TP TID PRN FOR ITCHING Oxycodone HCl 5 mg 06/22/19 17:38 06/26/19 13:12 Roxicodone - PO 5 mg Q4H PRN Administration PAIN LEVEL 6-10 Prednisone 40 mg 06/25/19 10:00 06/26/19 09:50 Deltasone - PO 40 mg DAILY [facility] Administration Ranitidine HCl 150 mg 06/22/19 22:00 06/26/19 09:50 Zantac - PO 150 mg BID [facility] Administration Senna/Docusate Sodium 1 tablet 06/24/19 22:00 06/25/19 23:15 Pericolace - PO Not Given HS [facility] ASSESSMENT/PLAN: 74 yof with PMHx of Afib on eliquis, OA, RA, Sjogren's, COPDo n 4L home oxygen, venous stasis dermatitis, VRE, pseudomonas, recurrent RLE cellulitis, admitted with sepsis -Sepsis due to recurrent RLE cellulitis -Chronic right leg severe dermatitis -Asymptomatic ESBL Bacteruria -RA/Sjogrens's -OA -COPD on 4L home oxygen -Afib on eliquis Plan: ID/rheumatology input Slow prednisone taper Off aztreonam. Daptocmycin for addition 2 days. Non ambulatory at baseline, agreable to home VNS/PT but declines SNF. Continue diltiazem/metoprolol/eliquis. DVTPPX eliquis Dispo home with services of antibiotic saturday if improved and no concerns. Discussed with patient, and nursing, all questions answered. Visit type - Emergency Visit Emergency Visit: Yes ED Registration Date: 06/22/19 Care time: The patient presented to the Emergency Department on the above date and was hospitalized for further evaluation of their emergent condition. - New Patient This patient is new to me today: No - Critical Care Critical Care patient: No - Discharge Referral Referred to [facility] Med P.C.: No
--- NOTE | 2019-06-26 16:34 | PN ---
Physical Exam: SUBJECTIVE: Patient seen and examined at bed side , no acute events over night , symptoms improving. OBJECTIVE: Vital Signs Period Temp Pulse Resp BP Sys/William Pulse Ox Last 24 Hr 98.1 F-99.1 F 73-85 20-20 118-127/46-73 98-98 GENERAL: The patient is awake, alert, and fully oriented, in no acute distress. HEAD: Normal with no signs of trauma. EYES: sclera anicteric, conjunctiva clear. LUNGS: Breath sounds equal, clear to auscultation bilaterally, HEART: Regular rate and rhythm, S1, S2 without murmur, rub or gallop. ABDOMEN: Obese Soft, nontender, nondistended, normoactive bowel sounds, sever left side erythema LLQ inginal abdominal fold EXTREMITIES: 2+ pulses, extensive b/l erythema with sclaes right worse than left , no edema , +2 Pulse left leg .+1 right leg. NEUROLOGICAL: no focal deficit , move all ext PSYCH: Normal mood, normal affect. SKIN: Warm, dry, Laboratory Results - last 24 hr 06/26/19 06/26/19 06:15 06:15 WBC 7.9 RBC 4.69 Hgb 12.9 Hct 40.2 MCV 85.7 MCH 27.6 MCHC 32.2 RDW 19.1 H Plt Count 238 MPV 7.4 L Absolute Neuts (auto) 5.5 Neutrophils % 69.6 Lymphocytes % 20.7 Monocytes % 8.3 Eosinophils % 1.2 Basophils % 0.2 Nucleated RBC % 0 Sodium 143 Potassium 5.0 Chloride 102 Carbon Dioxide 35 H Anion Gap 6 L BUN 18.2 H Creatinine 0.4 L Est GFR (CKD-EPI)AfAm 120.60 Est GFR (CKD-EPI)NonAf 104.06 Random Glucose 65 L Calcium 8.5 Total Bilirubin 0.2 AST 13 L ALT 18 Alkaline Phosphatase 73 Total Protein 5.5 L Albumin 2.6 L Active Medications Generic Name Dose Route Start Last Admin Trade Name Freq PRN Reason Stop Dose Admin Acetaminophen 650 mg 06/22/19 17:38 06/26/19 13:10 Tylenol - PO 650 mg Q4H PRN Administration FEVER Apixaban 5 mg 06/22/19 22:00 06/26/19 09:51 Eliquis - PO 5 mg BID BELL Administration Ascorbic Acid 1,000 mg 06/23/19 10:00 06/26/19 09:51 Vitamin C - PO 1,000 mg DAILY BELL Administration Atorvastatin Calcium 10 mg 06/22/19 22:00 06/25/19 23:13 Lipitor - PO 10 mg HS BELL Administration Cholecalciferol 1,000 unit 06/22/19 22:00 06/26/19 09:50 Vitamin D3 - PO 1,000 unit BID BELL Administration Clotrimazole 1 applic 06/23/19 10:00 06/26/19 11:11 Lotrimin 1% Cream - TP 1 applic BID BELL Administration Cyanocobalamin 1,000 mcg 06/23/19 10:00 06/26/19 09:51 Vitamin B12 - PO 1,000 mcg DAILY BELL Administration Diltiazem HCl 360 mg 06/23/19 10:00 06/26/19 09:51 Cardizem Cd - PO 360 mg DAILY BELL Administration Docusate Sodium 100 mg 06/22/19 22:00 06/26/19 09:51 Colace - PO 100 mg BID BELL Administration Furosemide 40 mg 06/23/19 10:00 06/26/19 09:50 Lasix - PO 40 mg DAILY BELL Administration Gabapentin 400 mg 06/22/19 22:00 06/26/19 13:14 Neurontin - PO 400 mg TID BELL Administration Hydroxychloroquine Sulfate 200 mg 06/23/19 10:00 06/26/19 09:50 Plaquenil - PO 200 mg DAILY BELL Administration Daptomycin 500 mg/ Sodium 50 mls @ 50 mls/hr 06/23/19 20:00 06/25/19 23:09 Chloride IVPB 50 mls/hr DAILY@2000 BELL Administration Protocol Lactobacillus Acidophilus 1 tab 06/23/19 10:00 06/26/19 09:51 Bacid - PO 1 tab DAILY BELL Administration Metoprolol Succinate 50 mg 06/22/19 22:00 06/26/19 09:50 Toprol Xl - PO 50 mg BID BELL Administration Nystatin 1 applic 06/22/19 17:33 Nystop Powder - TP TID PRN FOR ITCHING Oxycodone HCl 5 mg 06/22/19 17:38 06/26/19 13:12 Roxicodone - PO 5 mg Q4H PRN Administration PAIN LEVEL 6-10 Prednisone 40 mg 06/25/19 10:00 06/26/19 09:50 Deltasone - PO 40 mg DAILY BELL Administration Ranitidine HCl 150 mg 06/22/19 22:00 06/26/19 09:50 Zantac - PO 150 mg BID BELL Administration Senna/Docusate Sodium 1 tablet 06/24/19 22:00 06/25/19 23:15 Pericolace - PO Not Given HS BELL CBC, BMP 06/26/19 06:15 06/26/19 06:15 ASSESSMENT/PLAN: 74 year old female who comes in with fevers and worsening erythema today. She was recently discharged on 06/16 after being treated for cellulitis extending from her R foot up to her abdomen. # Cellulitis R.O CTD : ID on Board cont with IV abx , (Off aztreonam. Daptocmycin for addition 2 days.) and prednisonetaper and zantac , consult Reheumatology and dermatology. # HTN on Deltiazim and lasix 40 daily , can resume enalapril in AM if K normalized # HLD on Lipitor 10 HS # AFIB on Eliquis 5 BID , Mteoprolol 50 BID # Sleep Apnea , folow up out pt # copd , stable # RA on Hydroxychloroquin #Osteopenia on Vit D , Vit C and b12 # constipation:cont colace # Back pain on Marielena 400 TID # CHronic venous stasis stable on base line # Dispo to SNF but pt refusing wants to go home with VNS , she needs to follow up with Rheumatology and dermatology out pt. Visit type - Emergency Visit Emergency Visit: Yes ED Registration Date: 06/22/19 Care time: The patient presented to the Emergency Department on the above date and was hospitalized for further evaluation of their emergent condition. - New Patient This patient is new to me today: No - Critical Care Critical Care patient: No - Discharge Referral Referred to [facility] Med P.C[facility] No ATTENDING PHYSICIAN STATEMENT I saw and evaluated the patient. I reviewed the resident's note and discussed the case with the resident. I agree with the resident's findings and plan as documented. SUBJECTIVE: OBJECTIVE: ASSESSMENT AND PLAN:
[2019-06-26] MEDS: DAPTOMYCIN 500 MG in SODIUM CHLORIDE 50 ML IVPB SCH (21:36)
[2019-06-26] MEDS: ATORVASTATIN CA 10 MG TABLET (FP) PO SCH (22:25)
[2019-06-26] MEDS: SENNOSIDES/DOCUSATE COMBO (SENNA PLUS) TABLET (UD) PO SCH (22:26)
[2019-06-27] MEDS: GABAPENTIN 400 MG CAPSULE (FP) PO SCH ×3 (06:05→22:17)
[2019-06-27 07:28] LABS: BASO % 0.2 % (0-2.0); HEMATOCRIT 37.8 % (32.4-45.2); HEMOGLOBIN 12.4 GM/dL (10.7-15.3); LYMPH % 15.6 % (8-40); MCH 28.1 pg (25.7-33.7); MCHC 32.8 g/dl (32.0-36.0); MEAN CELL VOLUME 85.6 fl (80-96); MEAN PLT VOLUME 7.5 fl (7.5-11.1); MONO % 7.6 % (3.8-10.2); NEUT % 75.6 % (42.8-82.8); PLATELET COUNT 256 K/MM3 (134-434); RBC 4.41 M/mm3 (3.60-5.2); RDW 18.2 % (11.6-15.6); WHITE BLOOD COUNT 9.2 K/mm3 (4.0-10.0)
[2019-06-27 07:48] LABS: ALBUMIN 2.6 g/dl (3.4-5.0); BILIRUBIN,TOTAL 0.3 mg/dL (0.2-1); BLOOD UREA NITROGEN 19.8 mg/dL (7-18); CALCIUM 8.6 mg/dL (8.5-10.1); CREATININE 0.4 mg/dL (0.55-1.3); POTASSIUM 4.7 mmol/L (3.5-5.1); TOT PROT 5.4 g/dl (6.4-8.2)
[2019-06-27] MEDS: ACETAMINOPHEN 325 MG TABLET (FP) PO PRN (09:49)
[2019-06-27] MEDS: CHOLECALCIFEROL (VIT D3) 1,000 UNIT (25 MCG) TABLET PO SCH ×2 (09:51→22:17)
[2019-06-27] MEDS: DOCUSATE SODIUM 100 MG CAPSULE (FP) PO SCH ×2 (09:51→22:16)
[2019-06-27] MEDS: predniSONE 20 MG TABLET (UD) PO SCH (09:51)
[2019-06-27] MEDS: RANITIDINE HCL 150 MG TABLET (FP) PO SCH ×2 (09:52→22:17)
[2019-06-27] MEDS: HYDROXYCHLOROQUINE SO4 200 MG TABLET (FP) PO SCH (09:52)
[2019-06-27] MEDS: FUROSEMIDE 40 MG TABLET (FP) PO SCH (09:52)
[2019-06-27] MEDS: APIXABAN 5 MG TABLET PO SCH ×2 (09:52→22:17)
[2019-06-27] MEDS: LACTOBACILLUS ACIDOPHILUS 1 TABLET PO SCH (09:52)
[2019-06-27] MEDS: ASCORBIC ACID 500 MG TABLET (FP) PO SCH (09:52)
[2019-06-27] MEDS: CYANOCOBALAMIN 1,000 MCG TABLET (FP) PO SCH (09:53)
[2019-06-27] MEDS: CLOTRIMAZOLE 1% CREAM 15 GM TUBE TP SCH ×2 (10:09→22:18)
--- NOTE | 2019-06-27 15:43 | PN ---
Physical Exam: SUBJECTIVE: Patient seen and examined, no new complaints. OBJECTIVE: Vital Signs Period Temp Pulse Resp BP Sys/William Pulse Ox Last 24 Hr 98.4 F-98.9 F 62-74 18-20 102-136/49-62 99-100 Intake & Output 06/24/19 06/25/19 06/26/19 06/27/19 23:59 23:59 23:59 23:59 Intake Total 950 1150 450 400 Output Total 1400 1000 1100 Balance 950 -250 -550 -700 Weight 260 lb GENERAL: sitting in bed in no acute distress Neck: soft supple HEENT: normocephalic, atraumatic Chest: limited by habitus, no rales or wheezing Abdomen: Soft, NT, almost resolved Right lower abdomen erythema Extremities: right thigh erythema almost resolved. bilateral LE chronic dermatitis findings unchanged Psych: appropriate, co-operative Laboratory Results - last 24 hr 06/25/19 06/27/19 06/27/19 06:08 05:25 05:25 WBC 9.2 RBC 4.41 Hgb 12.4 Hct 37.8 MCV 85.6 MCH 28.1 MCHC 32.8 RDW 18.2 H Plt Count 256 MPV 7.5 Absolute Neuts (auto) 7.0 Neutrophils % 75.6 Lymphocytes % 15.6 D Monocytes % 7.6 Eosinophils % 1.0 Basophils % 0.2 Nucleated RBC % 0 Sodium 144 Potassium 4.7 Chloride 97 L Carbon Dioxide 44 H Anion Gap 2 L BUN 19.8 H Creatinine 0.4 L Est GFR (CKD-EPI)AfAm 120.60 Est GFR (CKD-EPI)NonAf 104.06 Random Glucose 76 Calcium 8.6 Total Bilirubin 0.3 AST 8 L ALT 16 Alkaline Phosphatase 68 Total Protein 5.4 L Albumin 2.6 L Double Strand DNA Ab <1 Active Medications Generic Name Dose Route Start Last Admin Trade Name Freq PRN Reason Stop Dose Admin Acetaminophen 650 mg 06/22/19 17:38 06/27/19 09:49 Tylenol - PO 650 mg Q4H PRN Administration FEVER Apixaban 5 mg 06/22/19 22:00 06/27/19 09:52 Eliquis - PO 5 mg BID BELL Administration Ascorbic Acid 1,000 mg 06/23/19 10:00 06/27/19 09:52 Vitamin C - PO 1,000 mg DAILY BELL Administration Atorvastatin Calcium 10 mg 06/22/19 22:00 06/26/19 22:25 Lipitor - PO 10 mg HS BELL Administration Cholecalciferol 1,000 unit 06/22/19 22:00 06/27/19 09:51 Vitamin D3 - PO 1,000 unit BID BELL Administration Clotrimazole 1 applic 06/23/19 10:00 06/27/19 10:09 Lotrimin 1% Cream - TP 1 applic BID BELL Administration Cyanocobalamin 1,000 mcg 06/23/19 10:00 06/27/19 09:53 Vitamin B12 - PO 1,000 mcg DAILY BELL Administration Diltiazem HCl 360 mg 06/23/19 10:00 06/27/19 09:51 Cardizem Cd - PO 360 mg DAILY BELL Administration Docusate Sodium 100 mg 06/22/19 22:00 06/27/19 09:51 Colace - PO 100 mg BID BELL Administration Furosemide 40 mg 06/23/19 10:00 06/27/19 09:52 Lasix - PO 40 mg DAILY BELL Administration Gabapentin 400 mg 06/22/19 22:00 06/27/19 14:15 Neurontin - PO 400 mg TID BELL Administration Hydroxychloroquine Sulfate 200 mg 06/23/19 10:00 06/27/19 09:52 Plaquenil - PO 200 mg DAILY BELL Administration Daptomycin 500 mg/ Sodium 50 mls @ 50 mls/hr 06/23/19 20:00 06/26/19 21:36 Chloride IVPB 50 mls/hr DAILY@2000 BELL Administration Protocol Lactobacillus Acidophilus 1 tab 06/23/19 10:00 06/27/19 09:52 Bacid - PO 1 tab DAILY BELL Administration Metoprolol Succinate 50 mg 06/22/19 22:00 06/27/19 09:51 Toprol Xl - PO 50 mg BID BELL Administration Nystatin 1 applic 06/22/19 17:33 Nystop Powder - TP TID PRN FOR ITCHING Oxycodone HCl 5 mg 06/22/19 17:38 06/26/19 17:06 Roxicodone - PO 5 mg Q4H PRN Administration PAIN LEVEL 6-10 Prednisone 40 mg 06/25/19 10:00 06/27/19 09:51 Deltasone - PO 40 mg DAILY BELL Administration Ranitidine HCl 150 mg 06/22/19 22:00 08/03/19 09:52 Zantac - PO 150 mg BID BELL Administration Senna/Docusate Sodium 1 tablet 06/24/19 22:00 06/26/19 22:26 Pericolace - PO Not Given HS [facility] ASSESSMENT/PLAN: 74 yof with PMHx of Afib on eliquis, OA, RA, Sjogren's, COPDo n 4L home oxygen, venous stasis dermatitis, VRE, pseudomonas, recurrent RLE cellulitis, admitted with sepsis -Sepsis due to recurrent RLE cellulitis -Chronic right leg severe dermatitis -Asymptomatic ESBL Bacteruria -RA/Sjogrens's -OA -COPD on 4L home oxygen -Afib on eliquis Plan: ID/rheumatology input Slow prednisone taper Off aztreonam. Daptocmycin for addition 24 hours Non ambulatory at baseline, agreable to home VNS/PT but declines SNF. Continue diltiazem/metoprolol/eliquis. Interval labs DVTPPX eliquis Dispo home with services of antibiotic Saturday if improved and no concerns. Discussed with patient, and nursing, all questions answered. Visit type - Emergency Visit Emergency Visit: Yes ED Registration Date: 06/22/19 Care time: The patient presented to the Emergency Department on the above date and was hospitalized for further evaluation of their emergent condition. - New Patient This patient is new to me today: No - Critical Care Critical Care patient: No - Discharge Referral Referred to [facility] Med P.C.: No
[2019-06-27] MEDS: DAPTOMYCIN 500 MG in SODIUM CHLORIDE 50 ML IVPB SCH (20:16)
[2019-06-27] MEDS: ATORVASTATIN CA 10 MG TABLET (FP) PO SCH (22:17)
[2019-06-27] MEDS: SENNOSIDES/DOCUSATE COMBO (SENNA PLUS) TABLET (UD) PO SCH (22:18)
[2019-06-28] MEDS: GABAPENTIN 400 MG CAPSULE (FP) PO SCH ×3 (05:35→22:02)
[2019-06-28] MEDS: DAPTOMYCIN 500 MG in SODIUM CHLORIDE 50 ML IVPB SCH (09:00)
[2019-06-28] MEDS: CYANOCOBALAMIN 1,000 MCG TABLET (FP) PO SCH (09:51)
[2019-06-28] MEDS: predniSONE 20 MG TABLET (UD) PO SCH (09:52)
[2019-06-28] MEDS: ASCORBIC ACID 500 MG TABLET (FP) PO SCH (09:52)
[2019-06-28] MEDS: APIXABAN 5 MG TABLET PO SCH ×2 (09:52→22:02)
[2019-06-28] MEDS: CHOLECALCIFEROL (VIT D3) 1,000 UNIT (25 MCG) TABLET PO SCH ×2 (09:53→22:02)
[2019-06-28] MEDS: DOCUSATE SODIUM 100 MG CAPSULE (FP) PO SCH ×2 (09:53→22:02)
[2019-06-28] MEDS: RANITIDINE HCL 150 MG TABLET (FP) PO SCH ×2 (09:53→22:02)
[2019-06-28] MEDS: LACTOBACILLUS ACIDOPHILUS 1 TABLET PO SCH (09:53)
[2019-06-28] MEDS: HYDROXYCHLOROQUINE SO4 200 MG TABLET (FP) PO SCH (09:54)
[2019-06-28] MEDS: CLOTRIMAZOLE 1% CREAM 15 GM TUBE TP SCH ×2 (09:54→22:03)
[2019-06-28] MEDS: FUROSEMIDE 40 MG TABLET (FP) PO SCH (09:54)
[2019-06-28] MEDS: ACETAMINOPHEN 325 MG TABLET (FP) PO PRN (09:57)
--- NOTE | 2019-06-28 13:38 | PN ---
Physical Exam: SUBJECTIVE: Patient seen and examined, no complaints, unchanged. OBJECTIVE: Vital Signs Period Temp Pulse Resp BP Sys/William Pulse Ox Last 24 Hr 98.2 F-98.9 F 69-74 18-20 105-117/51-68 100 Intake & Output 06/25/19 06/26/19 06/27/19 06/28/19 23:59 23:59 23:59 23:59 Intake Total 1150 450 650 200 Output Total 1400 1000 1700 700 Balance -250 -550 -1050 -500 Weight 260 lb GENERAL: sitting in bed in no acute distress Neck: soft supple HEENT: normocephalic, atraumatic Chest: limited by habitus, no rales or wheezing Abdomen: Soft, NT, almost resolved Right lower abdomen erythema Extremities: right thigh erythema almost resolved. bilateral LE chronic dermatitis findings unchanged Psych: appropriate, co-operative Laboratory Results - last 24 hr 06/25/19 06:08 IZABELLA Screen Positive H IZABELLA Homogeneous Pattern 1:320 H IZABELLA Nucleolar Pattern TNP IZABELLA Spindle Nora Pattern TNP IZABELLA Midbody Pattern TNP IZABELLA Centriole Pattern TNP IZABELLA Nuclear Dot Pattern TNP IZABELLA PCNA Pattern TNP IZABELLA Nuclear Membr Pat TNP IZABELLA Speckled Pattern TNP IZABELLA Centromere Pattern TNP Double Strand DNA Ab <1 Active Medications Generic Name Dose Route Start Last Admin Trade Name Freq PRN Reason Stop Dose Admin Acetaminophen 650 mg 06/22/19 17:38 06/28/19 09:57 Tylenol - PO 650 mg Q4H PRN Administration FEVER Apixaban 5 mg 06/22/19 22:00 06/28/19 09:52 Eliquis - PO 5 mg BID BELL Administration Ascorbic Acid 1,000 mg 06/23/19 10:00 06/28/19 09:52 Vitamin C - PO 1,000 mg DAILY BELL Administration Atorvastatin Calcium 10 mg 06/22/19 22:00 06/27/19 22:17 Lipitor - PO 10 mg HS BELL Administration Cholecalciferol 1,000 unit 06/22/19 22:00 06/28/19 09:53 Vitamin D3 - PO 1,000 unit BID BELL Administration Clotrimazole 1 applic 06/23/19 10:00 06/28/19 09:54 Lotrimin 1% Cream - TP 1 applic BID BELL Administration Cyanocobalamin 1,000 mcg 06/23/19 10:00 06/28/19 09:51 Vitamin B12 - PO 1,000 mcg DAILY BELL Administration Diltiazem HCl 360 mg 06/23/19 10:00 06/28/19 09:49 Cardizem Cd - PO 360 mg DAILY BELL Administration Docusate Sodium 100 mg 06/22/19 22:00 06/28/19 09:53 Colace - PO 100 mg BID BELL Administration Furosemide 40 mg 06/23/19 10:00 06/28/19 09:54 Lasix - PO 40 mg DAILY BELL Administration Gabapentin 400 mg 06/22/19 22:00 06/28/19 05:35 Neurontin - PO 400 mg TID BELL Administration Hydroxychloroquine Sulfate 200 mg 06/23/19 10:00 06/28/19 09:54 Plaquenil - PO 200 mg DAILY BELL Administration Daptomycin 500 mg/ Sodium 50 mls @ 50 mls/hr 06/23/19 20:00 06/27/19 20:16 Chloride IVPB 50 mls/hr DAILY@2000 BELL Administration Protocol Lactobacillus Acidophilus 1 tab 06/23/19 10:00 06/28/19 09:53 Bacid - PO 1 tab DAILY BELL Administration Metoprolol Succinate 50 mg 06/22/19 22:00 06/28/19 09:51 Toprol Xl - PO 50 mg BID BELL Administration Nystatin 1 applic 06/22/19 17:33 Nystop Powder - TP TID PRN FOR ITCHING Oxycodone HCl 5 mg 06/22/19 17:38 06/26/19 17:06 Roxicodone - PO 5 mg Q4H PRN Administration PAIN LEVEL 6-10 Prednisone 40 mg 06/25/19 10:00 06/28/19 09:52 Deltasone - PO 40 mg DAILY BELL Administration Ranitidine HCl 150 mg 06/22/19 22:00 06/28/19 09:53 Zantac - PO 150 mg BID [facility] Administration Senna/Docusate Sodium 1 tablet 06/24/19 22:00 06/27/19 22:18 Pericolace - PO Not Given HS [facility] ASSESSMENT/PLAN: 74 yof with PMHx of Afib on eliquis, OA, RA, Sjogren's, COPDo n 4L home oxygen, venous stasis dermatitis, VRE, pseudomonas, recurrent RLE cellulitis, admitted with sepsis -Sepsis due to recurrent RLE cellulitis -Chronic right leg severe dermatitis -Asymptomatic ESBL Bacteruria -RA/Sjogrens's -OA -COPD on 4L home oxygen -Afib on eliquis Plan: ID/rheumatology input Slow prednisone taper Off aztreonam. Daptocmycin for additional 24 hours Non ambulatory at baseline, agreable to home VNS/PT but declines SNF. Continue diltiazem/metoprolol/eliquis. Interval labs DVTPPX eliquis Dispo home with services on Saturday if improved and no concerns. Discussed with patient, and nursing, all questions answered. Visit type - Emergency Visit Emergency Visit: Yes ED Registration Date: 06/22/19 Care time: The patient presented to the Emergency Department on the above date and was hospitalized for further evaluation of their emergent condition. - New Patient This patient is new to me today: No - Critical Care Critical Care patient: No - Discharge Referral Referred to [facility] Med P.C.: No
[2019-06-28] MEDS ORDERED: SIMETHICONE 80 MG TAB.CHEW (FP) PO PRN (16:24)
[2019-06-28] MEDS: ATORVASTATIN CA 10 MG TABLET (FP) PO SCH (22:02)
[2019-06-28] MEDS: SENNOSIDES/DOCUSATE COMBO (SENNA PLUS) TABLET (UD) PO SCH (22:22)
[2019-06-29] MEDS: GABAPENTIN 400 MG CAPSULE (FP) PO SCH (06:19)
[2019-06-29] MEDS: ACETAMINOPHEN 325 MG TABLET (FP) PO PRN (06:21)
[2019-06-29 06:35] VITALS: TEMP 98.2
--- NOTE | 2019-06-29 08:02 | DS ---
Physical Exam: SUBJECTIVE: Patient seen and examined, no complaints, eager to go home. OBJECTIVE: Vital Signs Period Temp Pulse Resp BP Sys/William Pulse Ox Last 24 Hr 97.9 F-98.2 F 69-78 20-20 114-117/58-65 100-100 Intake & Output 06/26/19 06/27/19 06/28/19 06/29/19 23:59 23:59 23:59 23:59 Intake Total 450 650 650 250 Output Total 1000 1700 1700 1000 Balance -550 -1050 -1050 -750 PHYSICAL EXAM GENERAL: sitting in bed in no acute distress Neck: soft supple HEENT: normocephalic, atraumatic Chest: limited by habitus, no rales or wheezing Abdomen: Soft, NT, almost resolved Right lower abdomen erythema Extremities: right thigh erythema almost resolved. bilateral LE chronic dermatitis findings unchanged Psych: appropriate, co-operative LABS Laboratory Last Values WBC 9.2 K/mm3 (4.0-10.0) 06/27/19 05:25 RBC 4.41 M/mm3 (3.60-5.2) 06/27/19 05:25 Hgb 12.4 GM/dL (10.7-15.3) 06/27/19 05:25 Hct 37.8 % (32.4-45.2) 06/27/19 05:25 MCV 85.6 fl (80-96) 06/27/19 05:25 MCH 28.1 pg (25.7-33.7) 06/27/19 05:25 MCHC 32.8 g/dl (32.0-36.0) 06/27/19 05:25 RDW 18.2 % (11.6-15.6) H 06/27/19 05:25 Plt Count 256 K/MM3 (134-434) 06/27/19 05:25 MPV 7.5 fl (7.5-11.1) 06/27/19 05:25 Absolute Neuts (auto) 7.0 K/mm3 (1.5-8.0) 06/27/19 05:25 Neutrophils % 75.6 % (42.8-82.8) 06/27/19 05:25 Neutrophils % (Manual) 82.0 % (42.8-82.8) 06/22/19 15:25 Band Neutrophils % 5.0 % 06/22/19 15:25 Lymphocytes % 15.6 % (8-40) D 06/27/19 05:25 Lymphocytes % (Manual) 6.0 % (8-40) L 06/22/19 15:25 Monocytes % 7.6 % (3.8-10.2) 06/27/19 05:25 Monocytes % (Manual) 2 % (3.8-10.2) L D 06/22/19 15:25 Eosinophils % 1.0 % (0-4.5) 06/27/19 05:25 Eosinophils % (Manual) 0.0 % (0-4.5) 06/22/19 15:25 Basophils % 0.2 % (0-2.0) 06/27/19 05:25 Basophils % (Manual) 0.0 % (0-2.0) 06/22/19 15:25 Nucleated RBC % 0 % (0-0) 06/27/19 05:25 Platelet Estimate Adequate 06/22/19 15:25 ESR 15 mm/hr (0-30) 06/25/19 06:08 PT with INR 14.90 SEC (9.7-13.0) H 06/22/19 15:25 INR 1.26 (0.83-1.09) H 06/22/19 15:25 PTT (Actin FS) 35.6 SECONDS (25.2-36.5) 06/22/19 15:25 VBG pH 7.41 (7.31-7.41) 06/22/19 16:13 POC VBG pCO2 57.2 mmHg (41-51) H 06/22/19 16:13 POC VBG pO2 81.7 mmHg (30-40) H 06/22/19 16:13 VBG HCO3 35.8 mmol/L (23-29) H 06/22/19 16:13 VBG O2 Sat (Franny) 96.4 % (70-80) H 06/22/19 16:13 VBG Base Excess 9.6 meq/l (-2-2) H 06/22/19 16:13 Sodium 144 mmol/L (136-145) 06/27/19 05:25 Potassium 4.7 mmol/L (3.5-5.1) 06/27/19 05:25 Chloride 97 mmol/L (98-107) L 06/27/19 05:25 Carbon Dioxide 44 mmol/L (21-32) H 06/27/19 05:25 Anion Gap 2 MMOL/L (8-16) L 06/27/19 05:25 BUN 19.8 mg/dL (7-18) H 06/27/19 05:25 Creatinine 0.4 mg/dL (0.55-1.3) L 06/27/19 05:25 Est GFR (CKD-EPI)AfAm 120.60 06/27/19 05:25 Est GFR (CKD-EPI)NonAf 104.06 06/27/19 05:25 Random Glucose 76 mg/dL (74-106) 06/27/19 05:25 Lactic Acid 1.0 mmol/L (0.4-2.0) 06/22/19 15:25 Calcium 8.6 mg/dL (8.5-10.1) 06/27/19 05:25 Phosphorus 3.3 mg/dL (2.5-4.9) 06/25/19 06:08 Magnesium 1.9 mg/dL (1.8-2.4) 06/25/19 06:08 Total Bilirubin 0.3 mg/dL (0.2-1) 06/27/19 05:25 AST 8 U/L (15-37) L 06/27/19 05:25 ALT 16 U/L (13-61) 06/27/19 05:25 Alkaline Phosphatase 68 U/L (45-117) 06/27/19 05:25 Creatine Kinase 10 U/L (26-192) L 06/23/19 06:30 Troponin I < 0.02 ng/ml (0.00-0.05) 06/22/19 15:25 C-Reactive Protein 6.0 MG/DL (0.00-0.3) H 06/23/19 06:30 Total Protein 5.4 g/dl (6.4-8.2) L 06/27/19 05:25 Albumin 2.6 g/dl (3.4-5.0) L 06/27/19 05:25 Urine Color Yellow 06/22/19 15:54 Urine Appearance Clear 06/22/19 15:54 Urine pH 7.0 (5.0-8.0) D 06/22/19 15:54 Ur Specific [place] 1.020 (1.010-1.035) 06/22/19 15:54 Urine Protein Negative (NEGATIVE) 06/22/19 15:54 Urine Glucose (UA) Negative (NEGATIVE) 06/22/19 15:54 Urine Ketones Negative (NEGATIVE) 06/22/19 15:54 Urine Blood Negative (NEGATIVE) 06/22/19 15:54 Urine Nitrite Negative (NEGATIVE) 06/22/19 15:54 Urine Bilirubin Negative (NEGATIVE) 06/22/19 15:54 Urine Urobilinogen 2.0 mg/dL (0.2-1.0) H 06/22/19 15:54 Ur Leukocyte Esterase Negative (NEGATIVE) 06/22/19 15:54 Rheumatoid Factor 14.0 IU/mL (0-15) 06/23/19 06:30 Cycl Citrul Peptide IgG 2 units (0-19) 06/23/19 06:30 IZABELLA Screen Positive (.) H 06/25/19 06:08 IZABELLA Homogeneous Pattern 1:320 (.) H 06/25/19 06:08 IZABELLA Nucleolar Pattern TNP 06/25/19 06:08 IZABELLA Spindle Nora Pattern TNP 06/25/19 06:08 IZABELLA Midbody Pattern TNP 06/25/19 06:08 IZABELLA Centriole Pattern TNP 06/25/19 06:08 IZABELLA Nuclear Dot Pattern TNP 06/25/19 06:08 IZABELLA PCNA Pattern TNP 06/25/19 06:08 IZABELLA Nuclear Membr Pat TNP 06/25/19 06:08 IZABELLA Speckled Pattern TNP 06/25/19 06:08 IZABELLA Centromere Pattern TNP 06/25/19 06:08 Double Strand DNA Ab <1 IU/mL (0-9) 06/25/19 06:08 Microbiology 06/22/19 15:25 Blood - Peripheral Venous Blood Culture - Final NO GROWTH AFTER 5 DAYS INCUBATION 06/22/19 15:20 Blood - Peripheral Venous Blood Culture - Final NO GROWTH AFTER 5 DAYS INCUBATION 06/22/19 15:33 Urine - Urine - Catheterized Urine Culture - Final Klebsiella Pneumoniae - Esbl HOSPITAL COURSE: Date of Admission:06/22/19 Date of Discharge: 06/29/19 Minutes to complete discharge: 40 Discharge Summary Reason For Visit: CELLULITIS Current Active Problems Cellulitis (Acute) Fever (Acute) Hospital Course: 74 yof with PMHx of Afib on eliquis, OA, RA, Sjogren's, COPDo n 4L home oxygen, venous stasis dermatitis, VRE, pseudomonas, recurrent RLE cellulitis, admitted with recurrent RLE and right lower abdominal cellulitis. She was seen by infectious disease and started on aztreonam and daptomycin. She was also resumed on prednisone and her symptoms markedly improved. She was seen by rheumatology and her presentation was not felt to be from vasculitis and advised steroid taper. Her IZABELLA is 1:320 and ANCA/complement levels are sent, results of which are currently pending and she will follow up with [facility] to discuss results and further plan. She was noted with asymptomatic ESBL bacteruria with no indication for treatment. She declined SNF and will b e discharged home with aide and services in stable condition. Condition: Stable - Instructions Diet, Activity, Other Instructions: You were admitted with leg infection and treated with antibiotics and steroids. You were seen by infectious disease. MEDICATIONS: Slow prednisone taper as follows: 40 mg daily for 3 days, then taper by 5 mg every 3 days till off. That would mean 40 mg for 3 days, then 35 mg for 3 days, then 30 mg for 3 days, then 25 mg for 3 days, then 20 mg for 3 days, then 15 mg for 3 days, then 10 mg for 3 days, then 5 mg for 3 days, then off. INSTRUCTIONS: It is very important that you follow up with your mission assessment specialist and your ic designer [facility]. PENDING BLOOD TESTS: Rheumatological studies including ANCA, and complement levels are pending, please have your doctor or [facility] follow up on the same FOLLOW UP: With Dr. Boykin in [address] Hernandez in 1-2 weeks With [facility] in 2 weeks (your blood test IZABELLA was 1:320, please follow up with your ic [facility] or Dr. Macdonald who saw you in the hospital to discuss your pending blood tests and further plan) If you notice fevers, chills, worsening redness or any new concerns, please call 911 or come to ED Referrals: Jillian Hernandez MD [Staff Physician] - Mike Boykin MD [Primary Care Provider] - Disposition: VNS/HOME HEALTH CARE - Home Medications Comprehensive Discharge Medication List: Ambulatory Orders Ascorbate Calcium [Vitamin C] 1,000 mg PO DAILY 08/30/15 Cholecalciferol (Vitamin D3) [Vitamin D3] 1,000 unit PO BID 08/30/15 Cyanocobalamin [Vitamin B12 -] 1,000 mcg PO DAILY 08/30/15 Oxycodone/APAP [Percocet - Must Order Individual Components] 1 each NR QID PRN 08/30/15 Simvastatin 10 mg PO HS 08/30/15 Guaifenesin [Mucinex] 600 mg PO DAILY 06/20/17 Metoprolol Succinate [Toprol XL -] 50 mg PO BID #60 tab.sr 06/25/17 Diltiazem [Cardizem -] 360 mg PO DAILY 08/29/17 Furosemide [Lasix] 40 mg PO DAILY PRN 08/29/17 Apixaban [Eliquis] 5 mg PO BID 04/22/19 Enalapril Maleate [Vasotec -] 2.5 mg PO DAILY 05/14/19 Gabapentin [Neurontin] 400 mg PO TID 05/14/19 Hydroxychloroquine Sulfate 200 mg PO DAILY 05/14/19 Ranitidine HCl [Zantac] 150 mg PO BID 05/14/19 Nystatin Powder [Nystop Powder -] 1 applic TP TID PRN #1 applic 06/16/19 Prednisone See Taper PO ASDIR #110 tablet 06/29/19 This patient is new to me today: No Emergency Visit: Yes ED Registration Date: 06/22/19 Care time: The patient presented to the Emergency Department on the above date and was hospitalized for further evaluation of their emergent condition. Critical Care patient: No - Discharge Referral Referred to [facility] Med P.C.: No
[2019-06-29] MEDS ORDERED: PT OWN MED DRAWER 7, Y5N ONE (08:25)
[2019-06-29] MEDS: FUROSEMIDE 40 MG TABLET (FP) PO SCH ×2 (08:38→09:00)
[2019-06-29] MEDS: ASCORBIC ACID 500 MG TABLET (FP) PO SCH ×2 (08:39→09:00)
[2019-06-29] MEDS: CHOLECALCIFEROL (VIT D3) 1,000 UNIT (25 MCG) TABLET PO SCH ×2 (08:39→09:00)
[2019-06-29] MEDS: CYANOCOBALAMIN 1,000 MCG TABLET (FP) PO SCH ×2 (08:39→09:00)
[2019-06-29] MEDS: LACTOBACILLUS ACIDOPHILUS 1 TABLET PO SCH ×2 (08:39→09:00)
[2019-06-29] MEDS: RANITIDINE HCL 150 MG TABLET (FP) PO SCH ×2 (08:39→09:00)
[2019-06-29] MEDS: APIXABAN 5 MG TABLET PO SCH ×2 (08:39→09:00)
[2019-06-29] MEDS: predniSONE 20 MG TABLET (UD) PO SCH ×2 (08:40→09:00)
[2019-06-29] MEDS: HYDROXYCHLOROQUINE SO4 200 MG TABLET (FP) PO SCH ×2 (08:40→09:00)
[2019-06-29] MEDS: CLOTRIMAZOLE 1% CREAM 15 GM TUBE TP SCH ×2 (08:40→09:00)
[2019-06-29] MEDS: DOCUSATE SODIUM 100 MG CAPSULE (FP) PO SCH ×2 (08:40→09:00)
[2019-06-29 09:19] VITALS: BP 124/58; PULSE 74
[2019-06-29 18:07] LABS: ATYPICAL pANCA <1:20 titer (Neg:<1:20); C-ANCA <1:20 titer (Neg:<1:20)
== END 2019-06-29 10:46 | disposition home health service (06) | DRG 603 ==
LOC: JER 14:17 → JERBED 17:02 → J7W 18:30
PROVIDERS: ADMIT Internal Medicine; ATTEND Hospitalist
DX: L03.311 Cellulitis of abdominal wall (principal); Z68.41 Body mass index [BMI] 40.0-44.9, adult; L03.115 Cellulitis of right lower limb; Z79.01 Long term (current) use of anticoagulants; J44.9 Chronic obstructive pulmonary disease, unspecified; Z99.81 Dependence on supplemental oxygen; I87.2 Venous insufficiency (chronic) (peripheral); M35.00 Sjogren syndrome, unspecified; M06.9 Rheumatoid arthritis, unspecified; I48.2 Chronic atrial fibrillation; E78.5 Hyperlipidemia, unspecified; G47.30 Sleep apnea, unspecified; M85.80 Other specified disorders of bone density and structure, unspecified site; K59.00 Constipation, unspecified; M54.9 Dorsalgia, unspecified; E66.01 Morbid (severe) obesity due to excess calories; R82.71 Bacteriuria; Z87.891 Personal history of nicotine dependence
CPT/HCPCS: 36415; 71045-TC-FY; 71046-TC-FY; 80053; 81003; 82550; 82803; 83520; 83605; 83735; 84100; 84484; 85025; 85610; 85651; 85730; 86038; 86140; 86162; 86200; 86225; 86256; 86431; 87040; 87086; 87186; 93005; 93010; 99284-25; J0878

== ENCOUNTER 2019-07-10 18:37 | Inpatient (IN) | payer OTHER, MEDICARE ==
[2019-07-10] MEDS ORDERED: SODIUM CHLORIDE 1,000 ML IV STA ×2 (19:31→22:38)
[2019-07-10] MEDS ORDERED: ACETAMINOPHEN 1000 MG/100 ML VIAL (NON FORMULARY) IVPB ONE (19:32)
[2019-07-10 21:16] LABS: ALBUMIN 3.1 g/dl (3.4-5.0); BILIRUBIN,TOTAL 0.8 mg/dL (0.2-1); BLOOD UREA NITROGEN 23.8 mg/dL (7-18); CALCIUM 8.8 mg/dL (8.5-10.1); CREATININE 0.6 mg/dL (0.55-1.3); POTASSIUM 5.4 mmol/L (3.5-5.1); TOT PROT 6.4 g/dl (6.4-8.2)
[2019-07-10] MEDS ORDERED: ACETAMINOPHEN 325 MG TABLET (FP) ONE (21:36)
[2019-07-10] MEDS ORDERED: ACETAMINOPHEN INJECTION 100 ML IVPB ONE (21:45)
[2019-07-10 22:11] LABS: VENOUS PC02 67.8 mmHg (41-51); VENOUS PH 7.36 (7.31-7.41)
[2019-07-10 22:12] LABS: VENOUS PO2 < 49 mmHg (30-40)
[2019-07-10 22:13] LABS: HEMOGLOBIN 12.5 GM/dL (10.7-15.3); LYMPH % 2.8 % (8-40); MCHC 32.1 g/dl (32.0-36.0); MEAN PLT VOLUME 8.5 fl (7.5-11.1); MONO % 3.2 % (3.8-10.2); PLATELET COUNT 191 K/MM3 (134-434); RBC 4.48 M/mm3 (3.60-5.2); RDW 18.9 % (11.6-15.6); WHITE BLOOD COUNT 26.3 K/mm3 (4.0-10.0)
[2019-07-10] MEDS ORDERED: DAPTOMYCIN IVPB ONE (22:14)
[2019-07-10] MEDS ORDERED: AZTREONAM 2 GM in DEXTROSE 5%-WATER 100 ML IVPB ONE (22:14)
[2019-07-10] MEDS ORDERED: SODIUM CHLORIDE IVPB ONE (22:14)
[2019-07-10] MEDS ORDERED: DAPTOMYCIN 500 MG in SODIUM CHLORIDE 50 ML IVPB ONE (22:27)
--- NOTE | 2019-07-10 22:28 | PDOC ---
History of Present Illness <Lacie Bernal - Last Filed: 07/10/19 23:09> - General History Source: Patient Exam Limitations: No Limitations - History of Present Illness Initial Comments: 07/10/19 22:27 74 yo female pmh Afib on eliquis, OA, RA, Sjogren's, COPDo n 4L home oxygen, venous stasis dermatitis, VRE, pseudomonas, recurrent RLE cellulitis presents to the ED for right lower abdominal cellulitis, fevers and MCGEE. Pt recently admitted and DC on 06/29 for recurrent RLE and right lower abdominal cellulitis and was seen by infectious disease and started on aztreonam and daptomycin along with prednisone. Pt admits to 1 day of fevers, redness and warmth to the RLQ abdomen without abscess or drainage. <Mauro Degroot - Last Filed: 07/16/19 08:14> - General Chief Complaint: SIRS, Suspected/Possible Stated Complaint: FEVER Time Seen by Provider: 07/10/19 19:13 Past History <Lacie Bernal - Last Filed: 07/10/19 23:09> - Past Medical History Anemia: No Asthma: No Cancer: No Cardiac Disorders: Yes (ATRIAL FIBRILLATION) CVA: No COPD: Yes (HOME O2 3L) CHF: Yes Dementia: No Diabetes: No GI Disorders: No Disorders: No HTN: Yes Hypercholesterolemia: Yes Liver Disease: No Seizures: No Thyroid Disease: Yes (LEFT THYROID LUMP) - Surgical History Abdominal Surgery: No Appendectomy: No Cardiac Surgery: No Cholecystectomy: No Lung Surgery: No Neurologic Surgery: No Orthopedic Surgery: Yes (BILATERAL KNEE REPLACEMENT) - Immunization History Immunization Up to Date: No - Suicide/Smoking/Psychosocial Hx Smoking History: Never smoked Have you smoked in the past 12 months: No Number of Cigarettes Smoked Daily: 0 If you are a former smoker, when did you quit?: 1985 Cigars Per Day: 0 Information on smoking cessation initiated: No 'Breaking Loose' booklet given: 08/30/17 Hx Alcohol Use: No Drug/Substance Use Hx: No Substance Use Type: None Hx Substance Use Treatment: No <Mauro Degroot - Last Filed: 07/16/19 08:14> - Past Medical History Allergies/Adverse Reactions: Allergies Allergy/AdvReac Type Severity Reaction Status Date / Time Penicillins Allergy Severe Swelling Verified 07/10/19 18:59 clindamycin Allergy Mild Rash Verified 07/10/19 18:59 doxycycline Allergy Swelling Verified 07/10/19 18:59 levofloxacin [From Levaquin] Allergy Rash Verified 07/10/19 18:59 vancomycin AdvReac Mild Itching Verified 07/10/19 18:59 adhesive tape AdvReac "RIPS MY Verified 07/10/19 18:59 SKIN" Home Medications: Ambulatory Orders Ascorbate Calcium [Vitamin C] 1,000 mg PO DAILY 08/30/15 Cholecalciferol (Vitamin D3) [Vitamin D3] 1,000 unit PO BID 08/30/15 Cyanocobalamin [Vitamin B12 -] 1,000 mcg PO DAILY 08/30/15 Oxycodone/APAP [Percocet - Must Order Individual Components] 1 each NR QID PRN 08/30/15 Simvastatin 10 mg PO HS 08/30/15 Guaifenesin [Mucinex] 600 mg PO DAILY 06/20/17 Metoprolol Succinate [Toprol XL -] 50 mg PO BID #60 tab.sr 06/25/17 Diltiazem [Cardizem -] 360 mg PO DAILY 08/29/17 Furosemide [Lasix] 40 mg PO DAILY PRN 08/29/17 Apixaban [Eliquis] 5 mg PO BID 04/22/19 Enalapril Maleate [Vasotec -] 2.5 mg PO DAILY 05/14/19 Gabapentin [Neurontin] 400 mg PO TID 05/14/19 Hydroxychloroquine Sulfate 200 mg PO DAILY 05/14/19 Ranitidine HCl [Zantac] 150 mg PO BID 05/14/19 Nystatin Powder [Nystop Powder -] 1 applic TP TID PRN #1 applic 06/16/19 Prednisone See Taper PO ASDIR #110 tablet 06/29/19 Review of Systems - Review of Systems Constitutional: Yes: See HPI HEENTM: Yes: See HPI Respiratory: Yes: See HPI Cardiac (ROS): Yes: See HPI ABD/GI: Yes: See HPI : Yes: See HPI Musculoskeletal: Yes: See HPI Integumentary: Yes: See HPI Neurological: Yes: See HPI <Mauro Degroot - Last Filed: 07/16/19 08:14> *Physical Exam - Vital Signs Last Vital Signs Temp Pulse Resp BP Pulse Ox 103.8 F H 103 H 20 107/59 L 94 L 07/10/19 18:49 07/10/19 18:49 07/10/19 18:49 07/10/19 18:49 07/10/19 18:49 <GabeLacie - Last Filed: 07/10/19 23:09> - Vital Signs Last Vital Signs Temp Pulse Resp BP Pulse Ox 103.8 F H 103 H 20 107/59 L 94 L 07/10/19 18:49 07/10/19 18:49 07/10/19 18:49 07/10/19 18:49 07/10/19 18:49 - Physical Exam General Appearance: Yes: Nourished, Appropriately Dressed. No: Apparent Distress HEENT: positive: EOMI Neck: positive: Supple. negative: Carotid bruit Respiratory/Chest: positive: Lungs Clear, Normal Breath Sounds. negative: Respiratory Distress, Accessory Muscle Use, Crackles, Rales, Rhonchi, Stridor Cardiovascular: positive: Edema (bilateral pitting), Tachycardia, Irregularly Irregular. negative: JVD, Murmur Vascular Pulses: Dorsalis-Pedis (R): 3+, Doralis-Pedis (L): 3+ Gastrointestinal/Abdominal: positive: Soft, Tenderness (to the RLQ in the erythematous area. No drainage or abscess ). negative: Pulsatile Mass, Distended, Guarding, Rebound, Mass Extremity: positive: Normal Capillary Refill Integumentary: positive: Dry, Warm, Erythema Neurologic: positive: Fully Oriented, Alert, Normal Mood/Affect, Normal Response , Motor Strength 5/5 <Mauro Degroot - Last Filed: 07/16/19 08:14> ED Treatment Course - LABORATORY CBC & Chemistry Diagram: 07/10/19 21:50 07/10/19 20:30 - ADDITIONAL ORDERS Additional order review: Laboratory Results 07/10/19 07/10/19 07/10/19 21:50 21:50 20:30 VBG pH 7.36 POC VBG pCO2 67.8 H POC VBG pO2 < 49 H VBG HCO3 36.9 H VBG O2 Sat (Franny) 60.3 L VBG Base Excess 9.3 H Sodium Potassium Chloride Carbon Dioxide Anion Gap BUN Creatinine Est GFR (CKD-EPI)AfAm Est GFR (CKD-EPI)NonAf Random Glucose Lactic Acid 2.5 H* Calcium Total Bilirubin AST ALT Alkaline Phosphatase Troponin I < 0.02 Total Protein Albumin 07/10/19 20:30 VBG pH POC VBG pCO2 POC VBG pO2 VBG HCO3 VBG O2 Sat (Franny) VBG Base Excess Sodium 139 Potassium 5.4 H Chloride 96 L Carbon Dioxide 36 H Anion Gap 6 L BUN 23.8 H Creatinine 0.6 Est GFR (CKD-EPI)AfAm 105.54 Est GFR (CKD-EPI)NonAf 91.06 Random Glucose 52 L Lactic Acid Calcium 8.8 Total Bilirubin 0.8 AST 88 H ALT 79 H Alkaline Phosphatase 92 Troponin I Total Protein 6.4 Albumin 3.1 L 07/10/19 07/10/19 21:50 20:30 RBC 4.48 Cancelled MCV 87.0 Cancelled MCHC 32.1 Cancelled RDW 18.9 H Cancelled MPV 8.5 D Cancelled Neutrophils % 93.0 H D Cancelled Lymphocytes % 2.8 L D Cancelled Monocytes % 3.2 L Cancelled Eosinophils % 0.0 D Cancelled Basophils % 1.0 D Cancelled <Lacie Bernal - Last Filed: 07/10/19 23:09> - LABORATORY CBC & Chemistry Diagram: 07/15/19 08:11 07/15/19 08:11 - ADDITIONAL ORDERS Additional order review: Laboratory Results 07/10/19 07/10/19 07/10/19 21:50 20:30 20:30 VBG pH 7.36 POC VBG pCO2 67.8 H POC VBG pO2 < 49 H VBG HCO3 36.9 H VBG O2 Sat (Franny) 60.3 L VBG Base Excess 9.3 H Sodium 139 Potassium 5.4 H Chloride 96 L Carbon Dioxide 36 H Anion Gap 6 L BUN 23.8 H Creatinine 0.6 Est GFR (CKD-EPI)AfAm 105.54 Est GFR (CKD-EPI)NonAf 91.06 Random Glucose 52 L Lactic Acid 2.5 H* Calcium 8.8 Total Bilirubin 0.8 AST 88 H ALT 79 H Alkaline Phosphatase 92 Total Protein 6.4 Albumin 3.1 L 07/10/19 07/10/19 21:50 20:30 RBC 4.48 Cancelled MCV 87.0 Cancelled MCHC 32.1 Cancelled RDW 18.9 H Cancelled MPV 8.5 D Cancelled Neutrophils % 93.0 H D Cancelled Lymphocytes % 2.8 L D Cancelled Monocytes % 3.2 L Cancelled Eosinophils % 0.0 D Cancelled Basophils % 1.0 D Cancelled - RADIOLOGY Radiology Studies Ordered: Category Date Time Status CHEST X-RAY PORTABLE* [RAD] Stat Radiology 07/10/19 19:30 Taken DUPLEX VASCUL US-2LEGS [US] Stat Ultrasound 07/10/19 22:16 Ordered <Mauro Degroot - Last Filed: 07/16/19 08:14> Medical Decision Making - Medical Decision Making 74 yo female pmh Afib on eliquis, OA, RA, Sjogren's, COPDo n 4L home oxygen, venous stasis dermatitis, VRE, pseudomonas, recurrent RLE cellulitis presents to the ED for right lower abdominal cellulitis, fevers and MCGEE. Pt recently admitted and DC on 06/29 for recurrent RLE and right lower abdominal cellulitis and was seen by infectious disease and started on aztreonam and daptomycin along with prednisone. Pt admits to 1 day of fevers, redness and warmth to the RLQ abdomen without abscess or drainage. Vitals show elevated temp, HR and low O2 Pt septic with a likely source of the RLQ abdomen cellulitis Septic labs ordered including fluids and tylenol discussed case with Dr. Maloney, pt likely septic from cellulitic infection. Pt allergic to multiple antibiotics, will treat with past antibiotics used on recent admission, dapto and azactam. Will assess pt in the am R/O DVT and r/o deep infection/abscess with CT Pt refuses CT due to claustrophobia. Pt wheeled to the CT scanner, shown that the scanner is open and not inclosed and told the scan will be less than 5 min. Pt continues to deny scan. Pt has full capacity and states she will not have CT done. Explained all risks and benefits including potential missed diagnosis and treatment potentially leading to or disability. Demonstrates understanding Labs show WBC 26, K 5.4, elevated lactate 2.5, pH WNL Will repeat CMP and lactate after fluids pt admitted <Mauro Degroot - Last Filed: 07/16/19 08:14> *DC/Admit/Observation/Transfer - Discharge Dispostion Decision to Admit order: Yes <Lacie Bernal - Last Filed: 07/10/19 23:09> <Mauro Degroot - Last Filed: 07/16/19 08:14> Diagnosis at time of Disposition: Severe sepsis, Cellulitis
--- NOTE | 2019-07-10 22:35 | PDOC ---
Documentation entered by Shaheen Kirk SCRIBE, acting as scribe for Lacie Bernal MD. Lacie Bernal MD: This documentation has been prepared by the Reagan stringer Xhesika, SCRIBE, under my direction and personally reviewed by me in its entirety. I confirm that the documentation accurately reflects all work, treatment, procedures, and medical decision making performed by me. Attending Attestation - Resident Resident Name: Mauro Degroot - ED Attending Attestation I have performed the following: I have examined & evaluated the patient, The case was reviewed & discussed with the resident, I agree w/resident's findings & plan, Exceptions are as noted - HPI HPI: 07/10/19 19:30 The patient is a 74 year old female, with a significant PMH of recurrent RLE cellulitis (currently on Prednisone taper), MRSA, Sjogrens syndrome, Afib, COPD , CHF, HTN, and hyperlipidemia, who presents to the emergency department with fever, chills and headache. Patient states she has been seen here in the ED for previous RLE cellulitis. Patient notes she woke up this morning and noticed a new lower right abdomen cellulites rash that felt warm to touch and red. The patient denies chest pain, shortness of breath, and dizziness. Denies nausea , vomiting, diarrhea and constipation. Denies dysuria, frequency, urgency and hematuria. Allergies: Penicillins, Clindamycin, Doxycycline, Levofloxacin, Vancomycin Past surgical history: None reported. Social history: No reported cigarette, alcohol, or drug use. PCP: Dr. Mike Boykin - Physicial Exam PE: 07/10/19 22:31 awake alert lungs clear distant breath sounds heart reg tachycardia. abd obese , large area of erythema umbilicus down to groin. no palp abscess however difficult exam due to obesity, panus. lower ext with bilat edema, skin scaling and weeping right lower ext. left lower ext dusky/ blue with congestion. good pulses bilat. nuero alert oriented x 3. - Medical Decision Making 07/10/19 22:33 74 yo F with h/o afib, copd ( on home oxygen) obesity, chronic venous stasis with skin changes, recurrent cellulitis, multiple resistant including h/o klebsiella, VRE, and multiple drug allergies, RA and Sjogrens. here today with worseniin abd cellulitis fever 103. large area of cellulitis lower abd, panus, no palp abscess. plan doppler bilat lower ext r/o dvt. abd ct a/p r/o fluid collection. pt difficult iv access, only site right EJ will obtain ct wihtout iv contrast due to iv location. tylenol given PO prior to obtaining IV. 2L NS bolus. lactate 2.5 WBC 26. D/w Dr Vázquez recommend aztreonam and daptomycin. cultres sent and pending. Heart Score/ECG Review #1 Compared to previous ECG there are: Other (afib rate [address] elevation o depression)
[2019-07-10 22:49] LABS: INR 1.28 (0.83-1.09); PROTHROMBIN TIME (PATIENT) 15.2 SEC (9.7-13.0)
[2019-07-10 22:52] LABS: ACTIVATED PTT 31.6 SECONDS (25.2-36.5)
[2019-07-10 23:57] LABS: EPI CELLS 1.1 /HPF (0-5/HPF); HYALINE CASTS 0 /lpf (0-8); PH,URINE 5.5 (5.0-8.0); URINE APPEARANCE CLEAR; URINE BACTERIA 51.6 /hpf (NEGATIVE); URINE BILIRUBIN 1+ (NEGATIVE); URINE COLOR DK YELLOW; URINE GLUCOSE (UA) NEGATIVE (NEGATIVE); URINE KETONE TRACE (NEGATIVE); URINE LEUK ESTERASE 1+ (NEGATIVE); URINE NITRITE NEGATIVE (NEGATIVE); URINE PROTEIN NEGATIVE (NEGATIVE); URINE WBC 6 /hpf (0-5)
--- NOTE | 2019-07-11 00:37 | PN ---
Teaching Attending Note Name of Resident: Mildred Noriega ATTENDING PHYSICIAN STATEMENT I saw and evaluated the patient. I reviewed the resident's note and discussed the case with the resident. I agree with the resident's findings and plan as documented. SUBJECTIVE: Patient is a 74 year old woman with a PMH of recurrent RLE Cellulitis ( currently on Prednisone taper), Penicillin/multiple antibiotics allergy, MRSA, Sjogrens syndrome, Afib (on Eliquis), COPD, CHF, HTN and hyperlipidemia, who presents to the ER with fever, chills and headache. Patient states she has been seen here in the ER for previous RLE cellulitis. Patient notes she woke up this morning and noticed a new lower right abdomen cellulites rash that felt warm to touch and red. The patient denies chest pain, shortness of breath, and dizziness. Denies nausea, vomiting, diarrhea and constipation. Denies dysuria, frequency, urgency and hematuria. While in the ER, patient refused CT scan due to claustrophobia. She has full capacity and the ER staff explained all risks and benefits to her. OBJECTIVE: Alert Vital Signs Period Temp Pulse Resp BP Sys/William Pulse Ox Last 24 Hr 103.8 F 103 20 107/59 94 HEENT: No Jaundice, eye redness or discharge, PERRLA, EOMI. Normocephalic, atraumatic. External ears are normal and hearing is grossly intact. No nasal discharge. Neck: Supple, nontender. No palpable adenopathy or thyromegaly. No JVD Chest: Good effort. Clear to auscultation and percussion. Heart: Irregularly irregular. No S3, rub or murmur Abdomen: Not distended, soft, large area of cellulitis in lower abdominal wall, panus, no crepitus; tender and no HSM. No rebound or guarding. Normal bowel sounds. Ext: Peripheral pulses intact. Leg edema. Chronic stasis dermatitis changes. Skin: Warm and dry. No petechiae, rash or ecchymosis. Sacral decubitus ulcer. Neuro: Alert. Oriented x3. CN 2-12 grossly intact. Sensation grossly intact in all four extremities and DTR are symmetric. Psych: Appropriate mood and affect. Good insight. Home Medications Medication Instructions Recorded Ascorbate Calcium [Vitamin C] 1,000 mg PO DAILY 08/30/15 Cholecalciferol (Vitamin D3) 1,000 unit PO BID 08/30/15 [Vitamin D3] Cyanocobalamin [Vitamin B12 -] 1,000 mcg PO DAILY 08/30/15 Oxycodone/APAP [Percocet - Must 1 each NR QID PRN 08/30/15 Order Individual Components] Simvastatin 10 mg PO HS 08/30/15 Guaifenesin [Mucinex] 600 mg PO DAILY 06/20/17 Metoprolol Succinate [Toprol XL -] 50 mg PO BID #60 tab.sr 06/25/17 Diltiazem [Cardizem -] 360 mg PO DAILY 08/29/17 Furosemide [Lasix] 40 mg PO DAILY PRN 08/29/17 Apixaban [Eliquis] 5 mg PO BID 04/22/19 Enalapril Maleate [Vasotec -] 2.5 mg PO DAILY 05/14/19 Gabapentin [Neurontin] 400 mg PO TID 05/14/19 Hydroxychloroquine Sulfate 200 mg PO DAILY 05/14/19 Ranitidine HCl [Zantac] 150 mg PO BID 05/14/19 Nystatin Powder [Nystop Powder -] 1 applic TP TID PRN #1 applic 06/16/19 Prednisone See Taper PO ASDIR #110 tablet 06/29/19 Abnormal Lab Results 07/10/19 07/10/19 07/10/19 20:27 20:30 20:30 WBC RDW Absolute Neuts (auto) Neutrophils % Lymphocytes % Monocytes % PT with INR 15.20 H INR 1.28 H POC VBG pCO2 POC VBG pO2 VBG HCO3 VBG O2 Sat (Franny) VBG Base Excess Potassium 5.4 H Chloride 96 L Carbon Dioxide 36 H Anion Gap 6 L BUN 23.8 H Random Glucose 52 L Lactic Acid 2.5 H* AST 88 H ALT 79 H Albumin 3.1 L Urine Ketones Urine Bilirubin Urine Urobilinogen Ur Leukocyte Esterase 07/10/19 07/10/19 07/10/19 21:50 21:50 22:40 WBC 26.3 H RDW 18.9 H Absolute Neuts (auto) 24.4 H Neutrophils % 93.0 H D Lymphocytes % 2.8 L D Monocytes % 3.2 L PT with INR INR POC VBG pCO2 67.8 H POC VBG pO2 < 49 H VBG HCO3 36.9 H VBG O2 Sat (Franny) 60.3 L VBG Base Excess 9.3 H Potassium Chloride Carbon Dioxide Anion Gap BUN Random Glucose Lactic Acid AST ALT Albumin Urine Ketones Trace H Urine Bilirubin 1+ H Urine Urobilinogen 2.0 H Ur Leukocyte Esterase 1+ H ASSESSMENT AND PLAN: 1. Sepsis due to abdominal wall cellulitis - ER staff consulted ID and patient is being treated with Daptomycin and Aztreonam. Will get abdominal sonogram to rule out abdominal wall abscess, since she refused CT scan. Mild hyperkalemia is unexplained. Will hold Vasotec, hydrate and repeat BMP. Trend lactic acid. Continue comprehensive care of all her comorbid conditions including Eliquis for Afib and daily wound care for her sacral decubitus ulcer. 2. Morbid Obesity Counseled on the risks associated with obesity. Will provide patient all the necessary assistance, counseling and positive reinforcement to facilitate weight loss. Consult changer fixer. 3. Hypertension - Restart suitable outpatient antihypertensive drugs when clinically appropriate. Revise regimen to ensure [id number] excellent BP control and vocational counselor patient on the injurious effects of uncontrolled hypertension. Nonpharmacologic measures to control hypertension like weight loss , salt restriction and exercise discussed. Importance of adherence to treatment regimen and attainment of normotension emphasized. 4. DVT prophylaxis - On Eliquis for Afib 5. Advance directives - Full code
[2019-07-11 01:22] LABS: URINE RBC 4.4 /hpf (0-4)
[2019-07-11 01:46] LABS: ANISOCYTOSIS 0; MACROCYTOSIS 0; PLATELET ESTIMATE NORMAL
[2019-07-11] MEDS ORDERED: METOCLOPRAMIDE HCL INJECTION 10 MG/2 ML VIAL IVPUSH ONE (02:01)
--- NOTE | 2019-07-11 02:02 | HP ---
CHIEF COMPLAINT: cellulitis PCP: Mike Boykin HISTORY OF PRESENT ILLNESS: 74 yof with PMHx of Afib on eliquis, OA, RA, Sjogren's, COPDo n 4L home oxygen, venous stasis dermatitis, VRE, pseudomonas, recurrent RLE cellulitis, recently discharged on 06/29, presenting with headache and was found to septic in the ED with a fever of 103.8 and a WBC of 22. Patient currently has no complaints. She says she was at home and felt warm so she decided to come to the ER. She says she has a rash on abdomen which she feels has gotten worse since she was last discharged. On her last admission on 06/22-06/29 she was given Aztreonam and daptomycin for her cellulitis because of her allergies. She was also given steroids which markedly improved and discharged on a steroid taper. She was also seen by Rheumatology last admission who did not believe it was vasculitis. Patient denies SOB, chest pain, nausea, vomiting, chills, dizziness, lightheadedness, urinary symptoms. ER course was notable for: (1) 2 L fluids (2) IV abx: Daptomycin, Aztreonam PAST MEDICAL HISTORY: per HPI Surgical hx: Right knee replacement Social History: Smoking: quit in 1984 Family History: Allergies Penicillins Allergy (Severe, Verified 07/10/19 18:59) Swelling clindamycin Allergy (Mild, Verified 07/10/19 18:59) Rash doxycycline Allergy (Verified 07/10/19 18:59) Swelling levofloxacin [From Levaquin] Allergy (Verified 07/10/19 18:59) Rash vancomycin Adverse Reaction (Mild, Verified 07/10/19 18:59) Itching adhesive tape Adverse Reaction (Verified 07/10/19 18:59) "RIPS MY SKIN" HOME MEDICATIONS: Home Medications Medication Instructions Recorded Ascorbate Calcium [Vitamin C] 1,000 mg PO DAILY 08/30/15 Cholecalciferol (Vitamin D3) 1,000 unit PO BID 08/30/15 [Vitamin D3] Cyanocobalamin [Vitamin B12 -] 1,000 mcg PO DAILY 08/30/15 Oxycodone/APAP [Percocet - Must 1 each NR QID PRN 08/30/15 Order Individual Components] Simvastatin 10 mg PO HS 08/30/15 Guaifenesin [Mucinex] 600 mg PO DAILY 06/20/17 Metoprolol Succinate [Toprol XL -] 50 mg PO BID #60 tab.sr 06/25/17 Diltiazem [Cardizem -] 360 mg PO DAILY 08/29/17 Furosemide [Lasix] 40 mg PO DAILY PRN 08/29/17 Apixaban [Eliquis] 5 mg PO BID 04/22/19 Enalapril Maleate [Vasotec -] 2.5 mg PO DAILY 05/14/19 Gabapentin [Neurontin] 400 mg PO TID 05/14/19 Hydroxychloroquine Sulfate 200 mg PO DAILY 05/14/19 Ranitidine HCl [Zantac] 150 mg PO BID 05/14/19 Nystatin Powder [Nystop Powder -] 1 applic TP TID PRN #1 applic 06/16/19 Prednisone See Taper PO ASDIR #110 tablet 06/29/19 REVIEW OF SYSTEMS CONSTITUTIONAL: fevers Absent: chills, diaphoresis, generalized weakness, malaise, loss of appetite, weight change HEENT: Absent: rhinorrhea, nasal congestion, throat pain, throat swelling, difficulty swallowing, mouth swelling, ear pain, eye pain, visual changes CARDIOVASCULAR: Absent: chest pain, syncope, palpitations, irregular heart rate, lightheadedness , peripheral edema RESPIRATORY: Absent: cough, shortness of breath, dyspnea with exertion, orthopnea, wheezing, stridor, hemoptysis GASTROINTESTINAL: Absent: abdominal pain, abdominal distension, nausea, vomiting, diarrhea, constipation, melena, hematochezia GENITOURINARY: Absent: dysuria, frequency, urgency, hesitancy, hematuria, flank pain, genital pain MUSCULOSKELETAL: Absent: myalgia, arthralgia, joint swelling, back pain, neck pain SKIN: Absent: rash, itching, pallor NEUROLOGIC: headache Absent: focal weakness or paresthesias, dizziness, unsteady gait, seizure, mental status changes, bladder or bowel incontinence PHYSICAL EXAMINATION Vital Signs - 24 hr 07/10/19 18:49 Temperature 103.8 F H Pulse Rate 103 H Respiratory 20 Rate Blood Pressure 107/59 L O2 Sat by Pulse 94 L Oximetry (%) GENERAL: a/o x 3, resting comfortably EYES: extraocular movements intact, sclera anicteric, conjunctiva clear EARS, NOSE, THROAT: oropharynx clear without exudates. NECK: supple without lymphadenopathy, JVD, or masses. LUNGS: decreased bs HEART: irregular rhythm ABDOMEN: morbidly obese. NT, lower abdominal erythema and warmth. LOWER EXTREMITIES: chronic venous stasis. LLE warmer then RLE. No erythema NEUROLOGICAL: Cranial nerves II-XII intact Laboratory Results - last 24 hr 07/10/19 07/10/19 07/10/19 20:27 20:30 20:30 WBC Cancelled Corrected WBC (auto) Cancelled RBC Cancelled Hgb Cancelled Hct Cancelled MCV Cancelled MCH Cancelled MCHC Cancelled RDW Cancelled Plt Count Cancelled MPV Cancelled Absolute Neuts (auto) Cancelled Neutrophils % Cancelled Lymphocytes % Cancelled Monocytes % Cancelled Eosinophils % Cancelled Basophils % Cancelled Nucleated RBC % Cancelled Platelet Estimate Cancelled Platelet Comment Cancelled PT with INR 15.20 H INR 1.28 H PTT (Actin FS) 31.6 VBG pH POC VBG pCO2 POC VBG pO2 VBG HCO3 VBG O2 Sat (Franny) VBG Base Excess Sodium 139 Potassium 5.4 H Chloride 96 L Carbon Dioxide 36 H Anion Gap 6 L BUN 23.8 H Creatinine 0.6 Est GFR (CKD-EPI)AfAm 105.54 Est GFR (CKD-EPI)NonAf 91.06 Random Glucose 52 L Lactic Acid Calcium 8.8 Total Bilirubin 0.8 AST 88 H ALT 79 H Alkaline Phosphatase 92 Troponin I Total Protein 6.4 Albumin 3.1 L Urine Color Urine Appearance Urine pH Ur Specific [place] Urine Protein Urine Glucose (UA) Urine Ketones Urine Blood Urine Nitrite Urine Bilirubin Urine Urobilinogen Ur Leukocyte Esterase Urine WBC (Auto) Urine RBC (Auto) Urine Casts (Auto) U Epithel Cells (Auto) Urine Bacteria (Auto) 07/10/19 07/10/19 07/10/19 20:30 21:50 21:50 WBC Corrected WBC (auto) RBC Hgb Hct MCV MCH MCHC RDW Plt Count MPV Absolute Neuts (auto) Neutrophils % Lymphocytes % Monocytes % Eosinophils % Basophils % Nucleated RBC % Platelet Estimate Platelet Comment PT with INR INR PTT (Actin FS) VBG pH 7.36 POC VBG pCO2 67.8 H POC VBG pO2 < 49 H VBG HCO3 36.9 H VBG O2 Sat (Franny) 60.3 L VBG Base Excess 9.3 H Sodium Potassium Chloride Carbon Dioxide Anion Gap BUN Creatinine Est GFR (CKD-EPI)AfAm Est GFR (CKD-EPI)NonAf Random Glucose Lactic Acid 2.5 H* Calcium Total Bilirubin AST ALT Alkaline Phosphatase Troponin I < 0.02 Total Protein Albumin Urine Color Urine Appearance Urine pH Ur Specific [place] Urine Protein Urine Glucose (UA) Urine Ketones Urine Blood Urine Nitrite Urine Bilirubin Urine Urobilinogen Ur Leukocyte Esterase Urine WBC (Auto) Urine RBC (Auto) Urine Casts (Auto) U Epithel Cells (Auto) Urine Bacteria (Auto) ASSESSMENT/PLAN: 74 yof with PMHx of Afib on eliquis, OA, RA, Sjogren's, COPDo n 4L home oxygen, venous stasis dermatitis, VRE, pseudomonas, recurrent RLE cellulitis, recently discharged on 06/29, presenting with abdominal cellulitis. #Sepsis due to recurrent RLE cellulitis #Chronic right leg severe dermatitis #Transaminitis #RA/Sjogrens's #OA #COPD on 4L home oxygen #Afib on eliquis #Sacral decub? When asked about ulcer, says she has one on her back. She did not want me looking at it because she said the dressing was last changed yesterday.She said she is getting wound care. Did not see if it was infected or not. -Iv abx: 1x dapto, 1x, Aztreoneam -ID consulted. FU reccs -monitor for fever -Abdominal U/s to r/o abscess and also for elevated LFTs (did not have last admission). AST 88, ALT 79 -Patient refused Abd CT in the ER. Can try again tomorrow? -Lactic acid -Consider steroids in the AM. #FEN -no iv fluids -monitor -sodium diet #DVT -eliquis Visit type - Emergency Visit Emergency Visit: Yes ED Registration Date: 07/10/19 Care time: The patient presented to the Emergency Department on the above date and was hospitalized for further evaluation of their emergent condition. - New Patient This patient is new to me today: Yes Date on this admission: 07/13/19 - Critical Care Critical Care patient: No ATTENDING PHYSICIAN STATEMENT I saw and evaluated the patient. I reviewed the resident's note and discussed the case with the resident. I agree with the resident's findings and plan as documented. SUBJECTIVE: OBJECTIVE: ASSESSMENT AND PLAN:
[2019-07-11] MEDS ORDERED: METOCLOPRAMIDE HCL INJECTION 10 MG/2 ML VIAL ONE (02:12)
[2019-07-11] MEDS ORDERED: FUROSEMIDE 40 MG TABLET (FP) PO PRN (02:42)
[2019-07-11] MEDS ORDERED: NYSTATIN POWDER 100,000 UNITS/GM - 15 GM TOPICAL POWDER TP PRN (02:42)
[2019-07-11] MEDS ORDERED: ACETAMINOPHEN 1000 MG/100 ML VIAL (NON FORMULARY) IVPB ONE (05:31)
[2019-07-11] MEDS ORDERED: ACETAMINOPHEN INJECTION 100 ML IVPB ONE ×2 (05:36→15:12)
[2019-07-11] MEDS ORDERED: GABAPENTIN 100 MG CAPSULE (FP) PO SCH (06:00)
[2019-07-11] MEDS ORDERED: GABAPENTIN 100 MG CAPSULE (FP) ONE ×2 (06:40→15:13)
[2019-07-11] MEDS: NYSTATIN POWDER 100,000 UNITS/GM - 15 GM TOPICAL POWDER TP SCH ×3 (06:47→22:22)
[2019-07-11] MEDS: APIXABAN 5 MG TABLET PO SCH ×2 (09:47→22:21)
[2019-07-11] MEDS: RANITIDINE HCL 150 MG TABLET (FP) PO SCH ×2 (09:48→22:22)
[2019-07-11] MEDS: ASCORBIC ACID 500 MG TABLET (FP) PO SCH (09:48)
[2019-07-11] MEDS: CYANOCOBALAMIN 1,000 MCG TABLET (FP) PO SCH (09:48)
[2019-07-11] MEDS: CHOLECALCIFEROL (VIT D3) 1,000 UNIT (25 MCG) TABLET PO SCH ×2 (09:48→22:22)
[2019-07-11] MEDS ORDERED: ASCORBATE CALCIUM 1000 MG PO SCH (10:00)
[2019-07-11] MEDS ORDERED: ENALAPRIL MALEATE 2.5 MG TABLET (FP) PO SCH (10:00)
[2019-07-11] MEDS ORDERED: HYDROXYCHLOROQUINE SO4 200 MG TABLET (FP) PO SCH (10:00)
[2019-07-11] MEDS ORDERED: ENOXAPARIN NA (PORCINE) 40 MG/0.4 ML DISP.SYRIN SQ SCH (10:00)
[2019-07-11] MEDS ORDERED: dilTIAZem HCL 60 MG TABLET (FP) PO SCH (10:00)
[2019-07-11] MEDS: AZTREONAM 2 GM in DEXTROSE 5%-WATER 100 ML IVPB SCH ×2 (10:19→19:23)
--- NOTE | 2019-07-11 10:52 | PN ---
Physical Exam: SUBJECTIVE: Patient seen and examined, reports some lower abdominal redness, but not as severe as prior. No new leg concerns. Denies any abdominal pain, urinary symptoms, chest pain, dyspnea, new cough, chills or concerns. Reports a decub ulcer OBJECTIVE: Vital Signs Period Temp Pulse Resp BP Sys/William Pulse Ox Last 24 Hr 97.9 F-103.8 F 103-114 18-20 90-117/44-66 94-100 Intake & Output 07/08/19 07/09/19 07/10/19 07/11/19 23:59 23:59 23:59 23:59 Weight 260 lb GENERAL: morbidly obese in bed, no acute distress Neck: soft, supple HEENT: PERRL, EOMI CVS:S1S2 regular Chest: no rales or wheezing appreciated, limited by habitus Abdomen:Soft, morbidly obese abomen, minimal erythema in lateral groin region in skin folds (much better from recent admission), minimal erythema right thigh (improved from recent admission), Bilateral LE dermatitis findings unchanged Back: unable to co-operate for exam currently Psych: awake,appropriate Laboratory Results - last 24 hr 07/10/19 07/10/19 07/10/19 20:27 20:30 20:30 WBC Cancelled Corrected WBC (auto) Cancelled RBC Cancelled Hgb Cancelled Hct Cancelled MCV Cancelled MCH Cancelled MCHC Cancelled RDW Cancelled Plt Count Cancelled MPV Cancelled Absolute Neuts (auto) Cancelled Neutrophils % Cancelled Neutrophils % (Manual) Band Neutrophils % Lymphocytes % Cancelled Lymphocytes % (Manual) Monocytes % Cancelled Monocytes % (Manual) Eosinophils % Cancelled Eosinophils % (Manual) Basophils % Cancelled Basophils % (Manual) Myelocytes % (Man) Promyelocytes % (Man) Blast Cells % (Manual) Nucleated RBC % Cancelled Metamyelocytes Hypochromia Platelet Estimate Cancelled Platelet Comment Cancelled Polychromasia Poikilocytosis Anisocytosis Microcytosis Macrocytosis PT with INR 15.20 H INR 1.28 H PTT (Actin FS) 31.6 VBG pH POC VBG pCO2 POC VBG pO2 VBG HCO3 VBG O2 Sat (Franny) VBG Base Excess Sodium 139 Potassium 5.4 H Chloride 96 L Carbon Dioxide 36 H Anion Gap 6 L BUN 23.8 H Creatinine 0.6 Est GFR (CKD-EPI)AfAm 105.54 Est GFR (CKD-EPI)NonAf 91.06 Random Glucose 52 L Lactic Acid Calcium 8.8 Total Bilirubin 0.8 AST 88 H ALT 79 H Alkaline Phosphatase 92 Troponin I Total Protein 6.4 Albumin 3.1 L Urine Color Urine Appearance Urine pH Ur Specific [place] Urine Protein Urine Glucose (UA) Urine Ketones Urine Blood Urine Nitrite Urine Bilirubin Urine Urobilinogen Ur Leukocyte Esterase Urine WBC (Auto) Urine RBC (Auto) Urine Casts (Auto) U Epithel Cells (Auto) Urine Bacteria (Auto) 07/10/19 07/10/19 07/10/19 20:30 21:50 21:50 WBC Corrected WBC (auto) RBC Hgb Hct MCV MCH MCHC RDW Plt Count MPV Absolute Neuts (auto) Neutrophils % Neutrophils % (Manual) Band Neutrophils % Lymphocytes % Lymphocytes % (Manual) Monocytes % Monocytes % (Manual) Eosinophils % Eosinophils % (Manual) Basophils % Basophils % (Manual) Myelocytes % (Man) Promyelocytes % (Man) Blast Cells % (Manual) Nucleated RBC % Metamyelocytes Hypochromia Platelet Estimate Platelet Comment Polychromasia Poikilocytosis Anisocytosis Microcytosis Macrocytosis PT with INR INR PTT (Actin FS) VBG pH 7.36 POC VBG pCO2 67.8 H POC VBG pO2 < 49 H VBG HCO3 36.9 H VBG O2 Sat (Franny) 60.3 L VBG Base Excess 9.3 H Sodium Potassium Chloride Carbon Dioxide Anion Gap BUN Creatinine Est GFR (CKD-EPI)AfAm Est GFR (CKD-EPI)NonAf Random Glucose Lactic Acid 2.5 H* Calcium Total Bilirubin AST ALT Alkaline Phosphatase Troponin I < 0.02 Total Protein Albumin Urine Color Urine Appearance Urine pH Ur Specific [place] Urine Protein Urine Glucose (UA) Urine Ketones Urine Blood Urine Nitrite Urine Bilirubin Urine Urobilinogen Ur Leukocyte Esterase Urine WBC (Auto) Urine RBC (Auto) Urine Casts (Auto) U Epithel Cells (Auto) Urine Bacteria (Auto) 07/10/19 07/10/19 07/11/19 21:50 22:40 02:12 WBC 26.3 H Corrected WBC (auto) RBC 4.48 Hgb 12.5 Hct 39.0 MCV 87.0 MCH 28.0 MCHC 32.1 RDW 18.9 H Plt Count 191 D MPV 8.5 D Absolute Neuts (auto) 24.4 H Neutrophils % 93.0 H D Neutrophils % (Manual) 94.2 H Band Neutrophils % 0.0 Lymphocytes % 2.8 L D Lymphocytes % (Manual) 0.0 L Monocytes % 3.2 L Monocytes % (Manual) 5 D Eosinophils % 0.0 D Eosinophils % (Manual) 0.0 Basophils % 1.0 D Basophils % (Manual) 1.0 D Myelocytes % (Man) 0 Promyelocytes % (Man) 0 Blast Cells % (Manual) 0 Nucleated RBC % 0 Metamyelocytes 0 Hypochromia 0 Platelet Estimate Normal Platelet Comment Polychromasia 0 Poikilocytosis 0 Anisocytosis 0 Microcytosis 0 Macrocytosis 0 PT with INR INR PTT (Actin FS) VBG pH POC VBG pCO2 POC VBG pO2 VBG HCO3 VBG O2 Sat (Franny) VBG Base Excess Sodium Potassium Chloride Carbon Dioxide Anion Gap BUN Creatinine Est GFR (CKD-EPI)AfAm Est GFR (CKD-EPI)NonAf Random Glucose Lactic Acid 1.4 Calcium Total Bilirubin AST ALT Alkaline Phosphatase Troponin I Total Protein Albumin Urine Color Dk yellow Urine Appearance Clear Urine pH 5.5 D Ur Specific [place] 1.024 Urine Protein Negative Urine Glucose (UA) Negative Urine Ketones Trace H Urine Blood Negative Urine Nitrite Negative Urine Bilirubin 1+ H Urine Urobilinogen 2.0 H Ur Leukocyte Esterase 1+ H Urine WBC (Auto) 6 Urine RBC (Auto) 4.4 Urine Casts (Auto) 0 U Epithel Cells (Auto) 1.1 Urine Bacteria (Auto) 51.6 Active Medications Home Medications Medication Instructions Recorded Ascorbate Calcium [Vitamin C] 1,000 mg PO DAILY 08/30/15 Cholecalciferol (Vitamin D3) 1,000 unit PO BID 08/30/15 [Vitamin D3] Cyanocobalamin [Vitamin B12 -] 1,000 mcg PO DAILY 08/30/15 Oxycodone/APAP [Percocet - Must 1 each NR QID PRN 08/30/15 Order Individual Components] Simvastatin 10 mg PO HS 08/30/15 Guaifenesin [Mucinex] 600 mg PO DAILY 06/20/17 Metoprolol Succinate [Toprol XL -] 50 mg PO BID #60 tab.sr 06/25/17 Diltiazem [Cardizem -] 360 mg PO DAILY 08/29/17 Furosemide [Lasix] 40 mg PO DAILY PRN 08/29/17 Apixaban [Eliquis] 5 mg PO BID 04/22/19 Enalapril Maleate [Vasotec -] 2.5 mg PO DAILY 05/14/19 Gabapentin [Neurontin] 400 mg PO TID 05/14/19 Hydroxychloroquine Sulfate 200 mg PO DAILY 05/14/19 Ranitidine HCl [Zantac] 150 mg PO BID 05/14/19 Nystatin Powder [Nystop Powder -] 1 applic TP TID PRN #1 applic 06/16/19 Prednisone See Taper PO ASDIR #110 tablet 06/29/19 Generic Name Dose Route Start Last Admin Trade Name Rupert PRN Reason Stop Dose Admin Apixaban 5 mg 07/11/19 10:00 07/11/19 09:47 Eliquis - PO 5 mg BID BELL Administration Ascorbic Acid 1,000 mg 07/11/19 10:00 07/11/19 09:48 Vitamin C - PO 1,000 mg DAILY BELL Administration Atorvastatin Calcium 10 mg 07/11/19 22:00 Lipitor - PO HS BELL Cholecalciferol 1,000 unit 07/11/19 10:00 07/11/19 09:48 Vitamin D3 - PO 1,000 unit BID BELL Administration Cyanocobalamin 1,000 mcg 07/11/19 10:00 07/11/19 09:48 Vitamin B12 - PO 1,000 mcg DAILY BELL Administration Diltiazem HCl 360 mg 07/11/19 10:00 07/11/19 09:47 Cardizem Cd - PO 360 mg DAILY BELL Administration Gabapentin 400 mg 07/11/19 07:44 Neurontin - PO TID BELL Hydroxychloroquine Sulfate 200 mg 07/11/19 10:00 07/11/19 09:47 Plaquenil - PO 200 mg DAILY BELL Administration Aztreonam 2 gm/ Dextrose 100 mls @ 100 mls/hr 07/11/19 10:00 IVPB 07/12/19 09:59 Q8H-IV BELL Protocol Aztreonam 2 gm/ Dextrose 100 mls @ 100 mls/hr 07/11/19 10:00 07/11/19 10:19 IVPB 07/12/19 09:59 100 mls/hr Q8H-IV BELL Administration Protocol Sodium Chloride 1,000 mls @ 100 mls/hr 07/11/19 10:45 Normal Saline - IV ASDIR BELL Metoprolol Succinate 50 mg 07/11/19 10:45 Toprol Xl - PO BID BELL Nystatin 1 applic 07/11/19 03:00 07/11/19 06:47 Nystop Powder - TP 1 applic TID BELL Administration Ranitidine HCl 150 mg 07/11/19 10:00 07/11/19 09:48 Zantac - PO 150 mg BID BELL Administration ASSESSMENT/PLAN: 74 yof with PMHx of Afib on eliquis, OA, RA, Sjogren's, COPDo n 4L home oxygen, venous stasis dermatitis, VRE, pseudomonas, recurrent RLE cellulitis, admitted with sepsis -Sepsis , -?Recurrent RLE/Right Abdominal cellulitis vs decubitus ulcer -Chronic right leg severe dermatitis -Hyperkalemia -RA/Sjogrens's -OA -COPD on 4L home oxygen -Afib on eliquis Plan: s/p Aztreonam/Daptomycin in ED, Follow up ID input. Blood cultures. Patient refusing CT A/P, explained importance of ruling alternative etiology and source of sepsis. Agreable will follow up. Wound care consult for sacral decubitus ulcer. No focal s/s to suggest pulmonary/urinary process. Current abdominal exam non tender. Start IVF. Hold enalapril. Metoprolol/cardizem as hemodynamics tolerate. Continue prednisone taper from recent discharge. Hold hydroxychloroquine for now DVTPPX on eliquis Dispo pending clinical improvement. Discussed with patient and nursing. Visit type - Emergency Visit Emergency Visit: Yes ED Registration Date: 07/10/19 Care time: The patient presented to the Emergency Department on the above date and was hospitalized for further evaluation of their emergent condition. - New Patient This patient is new to me today: Yes Date on this admission: 07/11/19 - Critical Care Critical Care patient: No - Discharge Referral Referred to [facility] Med P.C.: No
[2019-07-11 11:35] LABS: BASO % 0.1 % (0-2.0); EOS % 0.3 % (0-4.5); HEMATOCRIT 35.1 % (32.4-45.2); HEMOGLOBIN 11.3 GM/dL (10.7-15.3); LYMPH % 4.5 % (8-40); MCHC 32.3 g/dl (32.0-36.0); MEAN CELL VOLUME 86.6 fl (80-96); MEAN PLT VOLUME 7.8 fl (7.5-11.1); MONO % 2.3 % (3.8-10.2); NEUT % 92.8 % (42.8-82.8); PLATELET COUNT 129 K/MM3 (134-434); RBC 4.05 M/mm3 (3.60-5.2); RDW 18.6 % (11.6-15.6); WHITE BLOOD COUNT 15.2 K/mm3 (4.0-10.0)
[2019-07-11 12:01] LABS: ALBUMIN 2.3 g/dl (3.4-5.0); BILIRUBIN,TOTAL 1.1 mg/dL (0.2-1); CALCIUM 8.2 mg/dL (8.5-10.1); CREATININE 0.4 mg/dL (0.55-1.3); POTASSIUM 4.1 mmol/L (3.5-5.1); TOT PROT 4.9 g/dl (6.4-8.2)
[2019-07-11] MEDS ORDERED: predniSONE 20 MG TABLET (UD) ONE (12:57)
[2019-07-11] MEDS: SODIUM CHLORIDE 1,000 ML IV SCH (13:07)
[2019-07-11] MEDS: predniSONE 20 MG TABLET (UD) PO SCH (13:08)
[2019-07-11] MEDS: GABAPENTIN 400 MG CAPSULE (FP) PO SCH ×2 (15:13→22:22)
[2019-07-11] MEDS ORDERED: ACETAMINOPHEN 325 MG TABLET (FP) ONE (15:26)
[2019-07-11] MEDS: ACETAMINOPHEN 325 MG TABLET (FP) PO PRN (15:27)
[2019-07-11 15:55] LABS: ANISOCYTOSIS 0; MACROCYTOSIS 0; PLATELET ESTIMATE DECREASED
--- NOTE | 2019-07-11 18:29 | CON.ID ---
Consult Consult Specialty:: Infectious Disease - coverage Dr. Fraga Reason for Consultation:: Fever, Cellulitis - History of Present Illness Chief Complaint: Fever, Cellulitis - History Source History Provided By: Patient, Medical Record - Past Medical History Cardio/Vascular: Yes: AFIB, HTN, Other (h/o DVT, venous stasis ) Pulmonary: Yes: COPD, Sleep Apnea Hepatobiliary: Yes: Other (fatty liver disease) ...: No Infectious Disease: Yes: Other (recurrent cellulitis) Musculoskeletal: Yes: Chronic low back pain (/spinal stenosis) Rheumatology: Yes: Rheumatoid Arthritis Endocrine: Yes: Osteopenia, Other (obesity, thyroid nodule) - Past Surgical History Past Surgical History: Yes: Joint Replacement (right knee over 10 years ago) - Alcohol/Substance Use Hx Alcohol Use: No History of Substance Use: reports: None - Smoking History Smoking history: Former smoker Have you smoked in the past 12 months: No Aproximately how many cigarettes per day: 0 If you are a former smoker, when did you quit?: 1984 - Social History Usual Living Arrangement: With Spouse ( disabled) ADL: Support Services History of Recent Travel: No Home Medications - Allergies Allergies/Adverse Reactions: Allergies Allergy/AdvReac Type Severity Reaction Status Date / Time Penicillins Allergy Severe Swelling Verified 07/10/19 18:59 clindamycin Allergy Mild Rash Verified 07/10/19 18:59 doxycycline Allergy Swelling Verified 07/10/19 18:59 levofloxacin [From Levaquin] Allergy Rash Verified 07/10/19 18:59 vancomycin AdvReac Mild Itching Verified 07/10/19 18:59 adhesive tape AdvReac "RIPS MY Verified 07/10/19 18:59 SKIN" - Home Medications Home Medications: Ambulatory Orders Ascorbate Calcium [Vitamin C] 1,000 mg PO DAILY 08/30/15 Cholecalciferol (Vitamin D3) [Vitamin D3] 1,000 unit PO BID 08/30/15 Cyanocobalamin [Vitamin B12 -] 1,000 mcg PO DAILY 08/30/15 Oxycodone/APAP [Percocet - Must Order Individual Components] 1 each NR QID PRN 08/30/15 Simvastatin 10 mg PO HS 08/30/15 Guaifenesin [Mucinex] 600 mg PO DAILY 06/20/17 Metoprolol Succinate [Toprol XL -] 50 mg PO BID #60 tab.sr 06/25/17 Diltiazem [Cardizem -] 360 mg PO DAILY 08/29/17 Furosemide [Lasix] 40 mg PO DAILY PRN 08/29/17 Apixaban [Eliquis] 5 mg PO BID 04/22/19 Enalapril Maleate [Vasotec -] 2.5 mg PO DAILY 05/14/19 Gabapentin [Neurontin] 400 mg PO TID 05/14/19 Hydroxychloroquine Sulfate 200 mg PO DAILY 05/14/19 Ranitidine HCl [Zantac] 150 mg PO BID 05/14/19 Nystatin Powder [Nystop Powder -] 1 applic TP TID PRN #1 applic 06/16/19 Prednisone See Taper PO ASDIR #110 tablet 06/29/19 Family Disease History - Family Disease History Family Disease History: Other: Father (alcohol abuse), Mother (rheumatoid arthritis) Review of Systems - Review of Systems Constitutional: reports: Fever Cardiovascular: denies: Chest Pain Respiratory: denies: Cough Gastrointestinal: denies: Abdominal Pain, Diarrhea, Nausea, Vomiting Musculoskeletal: reports: Extremity Pain Integumentary: reports: Erythema Neurological: reports: Headache. denies: Confusion Physical Exam Vital Signs: Vital Signs Temperature 98.6 F 07/11/19 18:12 Pulse Rate 106 H 07/11/19 18:12 Respiratory Rate 18 07/11/19 18:12 Blood Pressure 144/70 07/11/19 18:12 O2 Sat by Pulse Oximetry (%) 96 07/11/19 15:34 Constitutional: Yes: Obese HENT: Yes: Normocephalic Neck: Yes: Supple Cardiovascular: Yes: Pulse Irregular Respiratory: Yes: CTA Bilaterally Gastrointestinal: Yes: Normal Bowel Sounds, Soft Extremities: Yes: Erythema, Other (Swelling (L) > (R) leg, tender (L) diffuse erythema. Skin with leathery feel, scaling.) Labs: CBC, BMP 07/11/19 11:10 07/11/19 11:10 Problem List - Problems (1) Leukocytosis Code(s): D72.829 - ELEVATED WHITE BLOOD CELL COUNT, UNSPECIFIED (2) Cellulitis Code(s): L03.90 - CELLULITIS, UNSPECIFIED Qualifiers: (3) Atrial fibrillation Code(s): I48.91 - UNSPECIFIED ATRIAL FIBRILLATION Qualifiers: Atrial fibrillation type: chronic Qualified Code(s): I48.2 - Chronic atrial fibrillation (4) Chronic venous stasis Code(s): I87.8 - OTHER SPECIFIED DISORDERS OF VEINS (5) Dermatitis Code(s): L30.9 - DERMATITIS, UNSPECIFIED (6) Fever Code(s): R50.9 - FEVER, UNSPECIFIED Assessment/Plan Pt is a 74 yr old female with HX chronic recurrent LE cellulitis admitted with fever, increased (L) LE pain and erythema. W/Up significant for leukocytosis. She was started on Dapto and Azactam (Hx multiple drug allergies). Fever, Leukocytosis Cellulitis (L) [place]on c/s Continue Dapto/Aztreonam for now. Dr. Fraga to resume ID care in AM.
[2019-07-11] MEDS ORDERED: ATORVASTATIN CA 10 MG TABLET (FP) PO SCH (22:00)
[2019-07-11] MEDS ORDERED: PATIENT'S OWN MEDICATION (NON-FORMULARY) (Simvastatin [Simvastatin] 10 MG) PO SCH (22:00)
[2019-07-12] MEDS: AZTREONAM 2 GM in DEXTROSE 5%-WATER 100 ML IVPB SCH ×4 (02:35→18:03)
[2019-07-12] MEDS: GABAPENTIN 400 MG CAPSULE (FP) PO SCH ×3 (06:52→22:10)
[2019-07-12] MEDS: NYSTATIN POWDER 100,000 UNITS/GM - 15 GM TOPICAL POWDER TP SCH ×3 (06:53→22:09)
--- NOTE | 2019-07-12 07:54 | PN ---
Progress Note (short form) - Note Progress Note: surgery pt seen and examined. full consult dictated. clinically no appendicitis. if official ct shows abnormal appendix, pt should consider elective appendectomy at a tertiary care center. Pt currently remains fully anticoagulated and on regular diet. will follow official ct. no indication for acute inpatient surgery. cellulitis per medical team.
[2019-07-12] MEDS: ACETAMINOPHEN 325 MG TABLET (FP) PO PRN ×2 (08:03→13:50)
[2019-07-12] MEDS ORDERED: DAPTOMYCIN 500 MG in SODIUM CHLORIDE 50 ML IVPB SCH (10:00)
--- NOTE | 2019-07-12 11:03 | PN ---
Progress Note (short form) - Note Progress Note: came with fever and chills-chart reviewed, patient examined, d/w hospitalist no abdominal pain now notes some erythema of her Right thigh today started on dapto/azactam Vital Signs Period Temp Pulse Resp BP Sys/William Pulse Ox Last 24 Hr 97.8 F-98.6 F 83-106 18-20 106-144/44-72 96-96 cor-rrr llungs clear abd soft,nt +pannus, no RLQ pain on palpation pannus less red, erythema around lower abdomen corresponds to the depends she wears at home right thigh is red and hot venous stasis both lower legs labs pending Microbiology 07/10/19 22:40 Urine - Urine Clean Catch Urine Culture - Final Contaminated: Please Repeat 07/10/19 20:35 Blood - Peripheral Venous Blood Culture - Preliminary NO GROWTH OBTAINED AFTER 24 HOURS, INCUBATION TO CONTINUE FOR 4 DAYS. 07/10/19 20:30 Blood - Peripheral Venous Blood Culture - Preliminary NO GROWTH OBTAINED AFTER 24 HOURS, INCUBATION TO CONTINUE FOR 4 DAYS. a/p fever/leukocytosis/?cellulitis- abnl ct scan, clinically doubt appendicits but difficult exam for repeat ct scan today to consider skin biopsy d/w hosptalist to continue dapto/azactam multiple allergies noted hold lipitor
[2019-07-12] MEDS ORDERED: DAPTOMYCIN 700 MG in SODIUM CHLORIDE 50 ML IVPB SCH (11:15)
[2019-07-12 11:20] LABS: BASO % 0.3 % (0-2.0); EOS % 1.2 % (0-4.5); HEMATOCRIT 34.7 % (32.4-45.2); LYMPH % 5.6 % (8-40); MCHC 31.8 g/dl (32.0-36.0); MEAN PLT VOLUME 8.4 fl (7.5-11.1); MONO % 3.9 % (3.8-10.2); PLATELET COUNT 126 K/MM3 (134-434); RBC 3.95 M/mm3 (3.60-5.2); RDW 19.2 % (11.6-15.6); WHITE BLOOD COUNT 12.6 K/mm3 (4.0-10.0)
--- NOTE | 2019-07-12 11:26 | CONS ---
DATE OF CONSULTATION: 07/12/2019 REASON FOR CONSULTATION: Rule out appendicitis, acute appendicitis. This is an inpatient consultation. BRIEF HISTORY: This is a 74-year-old female who was admitted to [facility] with cellulitis of her thigh and upper pannus. She is noted to be morbidly obese, on blood thinner for atrial fibrillation and previous DVT. While here, she had a CT scan of her abdomen and pelvis, which was ordered 6:25 Saturday morning. At some point, it was done and a report was called in to the nurse suggesting the possibility of appendicitis. The patient had been on a regular diet. This diet was not changed. The patient continues to be on Eliquis blood thinner and request was made for surgical evaluation for appendicitis. The patient denies abdominal pain, denies nausea, denies vomiting, denies lack of appetite. She is eating well. PAST MEDICAL HISTORY: Significant for atrial fibrillation, hypertension, DVT, venous stasis disease, COPD, fatty liver, back pain, sleep apnea, and morbid obesity. PAST SURGICAL HISTORY: Right knee replacement. SOCIAL HISTORY: Significant for quitting tobacco. Negative for alcohol. HOME MEDICATIONS: Reviewed. They include Toprol, Cardizem, Lasix, Eliquis, enalapril, Neurontin, quinine, Zantac, and prednisone. In the hospital, she has also had aztreonam. She is noted to have multiple drug allergies, including PENICILLIN, CLINDAMYCIN, DOXYCYCLINE, LEVAQUIN, VANCOMYCIN as well as ADHESIVE TAPE. FAMILY HISTORY: Noncontributory. REVIEW OF SYSTEMS: General: Denies fatigue or malaise. Cardiac: Denies chest pain or palpitations. Respiratory: Denies shortness of breath or wheeze. Gastrointestinal: No nausea, no vomiting, no diarrhea, no constipation, no blood in her stool, no recent weight loss. Genitourinary: Denies dysuria. Musculoskeletal: Admits to arthritic pain. Psychiatric: Denies anxiety, depression, hearing voices. Skin: Admits to cellulitis of her pannus. PHYSICAL EXAMINATION: General: This is a morbidly obese, I suspect she may be heaver than her listed weight. HEENT: Her head is normocephalic. Her sclerae anicteric. Neck: Supple. Chest: Clear. Abdomen: Soft. She has a large pannus. There are cellulitic changes below the umbilicus and there is induration in the right side of the pannus. She has no abdominal tenderness, no rebound, no guarding, no surgical scars. Extremities: Edema. REVIEW OF LABORATORY: Her white blood cell count is 15,000, which is down from 26,000. Her blood gas does not show elevated bicarbonate. Her coagulation profile shows an INR elevation of 1.28, but she is on Eliquis. Her chemistries show a mild elevation of her transaminases. Her initial lactic acid of 2.5 has resolved to normal. IMAGING: Her CT scan has not been officially read. On my limited review, she has significant inflammatory changes within the pannus of her right abdomen causing streak artifact over the area of what, to me, appears to be an unremarkable appendix. There is no overt fluid collection within the abdominal cavity itself. ASSESSMENT: This is a 74-year-old female who was admitted for cellulitis with multiple medical problems, still being treated with full-dose anticoagulation, and still on a regular diet despite the consultation to rule out appendicitis. Clinically, this is not appendicitis. I need to follow the official radiology reading from [facility] to the daytime shift to see if it is actually suggesting that. If the appendix does appear to be abnormal, then this would most likely not be from appendicitis, but either a normal variant or, perhaps, an occult neoplasm. If that is the official reading, the patient should consider an elective appendectomy once she has been medically optimized and cured from her cellulitis. If her body mass index is actually higher than 42, which I suspect it is, the patient appears that she might not be a candidate for surgery at a community hospital and it might be best that she have her elective appendectomy at a tertiary care center. This would help because of the bariatric capability as well as the multiple comorbidities. At this point, there are no indications for acute surgical intervention. DO LILI DHALIWAL/[id number]
--- NOTE | 2019-07-12 11:38 | EKG ---
Test Reason : Blood Pressure : / mmHG Vent. Rate : 117 BPM Atrial Rate : 133 BPM P-R Int : 000 ms QRS Dur : 080 ms QT Int : 292 ms P-R-T Axes : 000 050 032 degrees QTc Int : 407 ms ATRIAL FIBRILLATION WITH RAPID VENTRICULAR RESPONSE LOW VOLTAGE QRS ABNORMAL ECG WHEN COMPARED WITH ECG OF 22-JUN-2019 15:29, NO SIGNIFICANT CHANGE WAS FOUND Confirmed by COTY ROCA MD ([id number]) on 07/12/2019 11:38:39 AM Referred By: Confirmed By:COTY ROCA MD
[2019-07-12 11:47] LABS: ALBUMIN 2.2 g/dl (3.4-5.0); BILIRUBIN,TOTAL 0.5 mg/dL (0.2-1); BLOOD UREA NITROGEN 17.1 mg/dL (7-18); CALCIUM 8.6 mg/dL (8.5-10.1); CREATININE 0.4 mg/dL (0.55-1.3); MAGNESIUM 1.9 mg/dL (1.8-2.4); PHOSPHOROUS 2.6 mg/dL (2.5-4.9); POTASSIUM 4.4 mmol/L (3.5-5.1)
[2019-07-12] MEDS: CYANOCOBALAMIN 1,000 MCG TABLET (FP) PO SCH (12:11)
[2019-07-12] MEDS: ASCORBIC ACID 500 MG TABLET (FP) PO SCH (12:11)
[2019-07-12] MEDS: RANITIDINE HCL 150 MG TABLET (FP) PO SCH ×2 (12:11→22:10)
[2019-07-12] MEDS: APIXABAN 5 MG TABLET PO SCH ×2 (12:11→22:10)
[2019-07-12] MEDS: predniSONE 20 MG TABLET (UD) PO SCH (12:12)
[2019-07-12] MEDS: CHOLECALCIFEROL (VIT D3) 1,000 UNIT (25 MCG) TABLET PO SCH ×2 (12:12→22:10)
[2019-07-12] MEDS ORDERED: PT OWN MED DRAWER 7, Y5N ONE ×3 (13:42→18:00)
[2019-07-12] MEDS: SODIUM CHLORIDE 1,000 ML IV SCH ×2 (13:49→15:15)
--- NOTE | 2019-07-12 13:59 | PN ---
Physical Exam: SUBJECTIVE: Patient seen and examined, no nausea, vomiting, abdominal pain, fevers or chills. Tolerating diet well. OBJECTIVE: Vital Signs Period Temp Pulse Resp BP Sys/William Pulse Ox Last 24 Hr 97.8 F-98.6 F 83-106 18-20 106-144/44-72 96-96 Intake & Output 07/09/19 07/10/19 07/11/19 07/12/19 23:59 23:59 23:59 23:59 Intake Total 450 800 Balance 450 800 Weight 260 lb 270 lb 8 oz GENERAL: morbidly obese in bed, no acute distress Neck: soft, supple HEENT: PERRL, EOMI CVS:S1S2 regular Chest: no rales or wheezing appreciated, limited by habitus Abdomen:Soft, morbidly obese abomen, minimal erythema in right lateral groin region in skin folds (much better from recent admission), no RLQ tenderness noted, minimal erythema right thigh (improved from recent admission), worsened left thigh erythema vs petechial rash and overlying left leg chronic dermatitis symptoms Back: unable to co-operate for exam currently Psych: awake,appropriate Laboratory Results - last 24 hr 07/11/19 07/12/19 07/12/19 11:10 10:30 10:30 WBC 12.6 H RBC 3.95 Hgb 11.0 Hct 34.7 MCV 88.0 MCH 28.0 MCHC 31.8 L RDW 19.2 H Plt Count 126 L MPV 8.4 Absolute Neuts (auto) 11.2 H Neutrophils % 89.0 H Neutrophils % (Manual) 96.0 H Band Neutrophils % 0.0 Lymphocytes % 5.6 L D Lymphocytes % (Manual) 3.0 L D Monocytes % 3.9 Monocytes % (Manual) 1 L Eosinophils % 1.2 D Eosinophils % (Manual) 0.0 Basophils % 0.3 Basophils % (Manual) 0.0 Myelocytes % (Man) 0 Promyelocytes % (Man) 0 Blast Cells % (Manual) 0 Nucleated RBC % 0 Metamyelocytes 0 Hypochromia 0 Platelet Estimate Decreased Polychromasia 0 Poikilocytosis 0 Basophilic Stippling 1+ Anisocytosis 0 Microcytosis 0 Macrocytosis 0 Sodium 141 Potassium 4.4 Chloride 103 Carbon Dioxide 33 H Anion Gap 5 L BUN 17.1 Creatinine 0.4 L Est GFR (CKD-EPI)AfAm 120.60 Est GFR (CKD-EPI)NonAf 104.06 Random Glucose 80 Calcium 8.6 Phosphorus 2.6 Magnesium 1.9 Total Bilirubin 0.5 AST 22 ALT 52 Alkaline Phosphatase 86 Total Protein 5.0 L Albumin 2.2 L Active Medications Generic Name Dose Route Start Last Admin Trade Name Freq PRN Reason Stop Dose Admin Acetaminophen 650 mg 07/11/19 10:59 07/12/19 13:50 Tylenol - PO 650 mg Q6H PRN Administration HEADACHE Apixaban 5 mg 07/11/19 10:00 07/12/19 12:11 Eliquis - PO 5 mg BID [facility] Administration Ascorbic Acid 1,000 mg 07/11/19 10:00 07/12/19 12:11 Vitamin C - PO 1,000 mg DAILY [facility] Administration Cholecalciferol 1,000 unit 07/11/19 10:00 07/12/19 12:12 Vitamin D3 - PO 1,000 unit BID [facility] Administration Cyanocobalamin 1,000 mcg 07/11/19 10:00 07/12/19 12:11 Vitamin B12 - PO 1,000 mcg DAILY [facility] Administration Diltiazem HCl 360 mg 07/11/19 10:00 07/12/19 12:11 Cardizem Cd - PO 360 mg DAILY [facility] Administration Gabapentin 400 mg 07/11/19 07:44 07/12/19 13:50 Neurontin - PO 400 mg TID [facility] Administration Sodium Chloride 1,000 mls @ 100 mls/hr 07/11/19 10:45 07/12/19 13:49 Normal Saline - IV 100 mls/hr ASDIR [facility] Administration Aztreonam 2 gm/ Dextrose 100 mls @ 100 mls/hr 07/12/19 11:15 07/12/19 13:50 IVPB 100 mls/hr Q8H-IV [facility] Administration Protocol Daptomycin 700 mg/ Sodium 50 mls @ 50 mls/hr 07/12/19 13:00 Chloride IVPB DAILY [facility] Protocol Metoprolol Succinate 50 mg 07/11/19 10:45 07/12/19 12:11 Toprol Xl - PO 50 mg BID [facility] Administration Nystatin 1 applic 07/11/19 03:00 07/12/19 06:53 Nystop Powder - TP 1 applic TID [facility] Administration Prednisone 20 mg 07/11/19 11:00 07/12/19 12:12 Deltasone - PO 07/13/19 10:01 20 mg DAILY [facility] Administration Prednisone 15 mg 07/14/19 10:00 Deltasone - PO 07/16/19 10:01 DAILY [facility] Prednisone 10 mg 07/17/19 10:00 Deltasone - PO 07/19/19 10:01 DAILY [facility] Prednisone 5 mg 07/20/19 10:00 Deltasone - PO 07/22/19 10:01 DAILY [facility] Ranitidine HCl 150 mg 07/11/19 10:00 07/12/19 12:11 Zantac - PO 150 mg BID [facility] Administration Home Medications Medication Instructions Recorded Ascorbate Calcium [Vitamin C] 1,000 mg PO DAILY 08/30/15 Cholecalciferol (Vitamin D3) 1,000 unit PO BID 08/30/15 [Vitamin D3] Cyanocobalamin [Vitamin B12 -] 1,000 mcg PO DAILY 08/30/15 Oxycodone/APAP [Percocet - Must 1 each NR QID PRN 08/30/15 Order Individual Components] Simvastatin 10 mg PO HS 08/30/15 Guaifenesin [Mucinex] 600 mg PO DAILY 06/20/17 Metoprolol Succinate [Toprol XL -] 50 mg PO BID #60 tab.sr 06/25/17 Diltiazem [Cardizem -] 360 mg PO DAILY 08/29/17 Furosemide [Lasix] 40 mg PO DAILY PRN 08/29/17 Apixaban [Eliquis] 5 mg PO BID 04/22/19 Enalapril Maleate [Vasotec -] 2.5 mg PO DAILY 05/14/19 Gabapentin [Neurontin] 400 mg PO TID 05/14/19 Hydroxychloroquine Sulfate 200 mg PO DAILY 05/14/19 Ranitidine HCl [Zantac] 150 mg PO BID 05/14/19 Nystatin Powder [Nystop Powder -] 1 applic TP TID PRN #1 applic 06/16/19 Prednisone See Taper PO ASDIR #110 tablet 06/29/19 ASSESSMENT/PLAN: 74 yof with PMHx of Afib on eliquis, OA, RA, Sjogren's, COPDo n 4L home oxygen, venous stasis dermatitis, VRE, pseudomonas, recurrent RLE cellulitis, admitted with sepsis -Sepsis , Cellulitis, doubt appendicitis -?Decubitus ulcer -Chronic right leg severe dermatitis -Hyperkalemia -RA/Sjogrens's -OA -COPD on 4L home oxygen -Afib on eliquis Plan: ID input noted Worsened symptoms left thigh, Aztreonam/vancomycin. Follow up cultures. Address skin biopsy based on clinical course. Overnight events, CT A/P prelim results and surgery input noted Based on current exam and clinical improvement, doubt appendicitis. CT with PO/ IV contrast, follow up. Wound care consult for sacral decubitus ulcer. No focal s/s to suggest pulmonary/urinary process. Current abdominal exam non tender. Continue IVF. Hold enalapril. Metoprolol/cardizem as hemodynamics tolerate. Continue prednisone taper from recent discharge. Hold hydroxychloroquine for now DVTPPX on eliquis Dispo pending clinical improvement. Discussed with patient and nursing. Care co-ordinated with ID. Visit type - Emergency Visit Emergency Visit: Yes ED Registration Date: 07/10/19 Care time: The patient presented to the Emergency Department on the above date and was hospitalized for further evaluation of their emergent condition. - New Patient This patient is new to me today: No - Critical Care Critical Care patient: No - Discharge Referral Referred to [facility] No
[2019-07-12] MEDS: oxyCODONE HCL 5 MG TABLET PO PRN (16:07)
[2019-07-12] MEDS: DAPTOMYCIN 700 MG in SODIUM CHLORIDE 50 ML IVPB SCH (16:11)
[2019-07-13] MEDS: oxyCODONE HCL 5 MG TABLET PO PRN (00:29)
[2019-07-13] MEDS ORDERED: PT OWN MED DRAWER 7, Y5N ONE ×4 (01:16→17:48)
[2019-07-13] MEDS: AZTREONAM 2 GM in DEXTROSE 5%-WATER 100 ML IVPB SCH ×3 (01:47→17:56)
[2019-07-13] MEDS: GABAPENTIN 400 MG CAPSULE (FP) PO SCH ×3 (06:34→23:21)
[2019-07-13] MEDS: ACETAMINOPHEN 325 MG TABLET (FP) PO PRN ×2 (06:38→14:06)
[2019-07-13] MEDS: NYSTATIN POWDER 100,000 UNITS/GM - 15 GM TOPICAL POWDER TP SCH ×3 (06:39→23:26)
[2019-07-13] MEDS ORDERED: INSULIN (NOVOLOG) ASPART 100 UNITS/ML 10ML VIAL ONE (06:51)
[2019-07-13] MEDS ORDERED: INSULIN (LEVEMIR) 100 UNITS/ML UNITS SQ ONE (06:51)
[2019-07-13 07:12] LABS: ALBUMIN 2.2 g/dl (3.4-5.0); BILIRUBIN,TOTAL 0.4 mg/dL (0.2-1); BLOOD UREA NITROGEN 16.1 mg/dL (7-18); CALCIUM 8.2 mg/dL (8.5-10.1); CREATININE 0.3 mg/dL (0.55-1.3); MAGNESIUM 1.8 mg/dL (1.8-2.4); POTASSIUM 4.6 mmol/L (3.5-5.1); TOT PROT 5.2 g/dl (6.4-8.2)
[2019-07-13] MEDS: CHOLECALCIFEROL (VIT D3) 1,000 UNIT (25 MCG) TABLET PO SCH ×2 (10:47→23:20)
[2019-07-13] MEDS: predniSONE 20 MG TABLET (UD) PO SCH (10:47)
[2019-07-13] MEDS: ASCORBIC ACID 500 MG TABLET (FP) PO SCH (10:47)
[2019-07-13] MEDS: RANITIDINE HCL 150 MG TABLET (FP) PO SCH ×2 (10:48→23:21)
[2019-07-13] MEDS: APIXABAN 5 MG TABLET PO SCH ×2 (10:48→23:21)
[2019-07-13] MEDS: CYANOCOBALAMIN 1,000 MCG TABLET (FP) PO SCH (10:48)
[2019-07-13] MEDS: SODIUM CHLORIDE 1,000 ML IV SCH ×2 (10:49→17:56)
[2019-07-13 11:03] LABS: BASO % 0.3 % (0-2.0); EOS % 2.9 % (0-4.5); HEMATOCRIT 36.3 % (32.4-45.2); HEMOGLOBIN 11.6 GM/dL (10.7-15.3); LYMPH % 9.6 % (8-40); MCH 28.3 pg (25.7-33.7); MEAN CELL VOLUME 88.6 fl (80-96); MEAN PLT VOLUME 8.3 fl (7.5-11.1); MONO % 5.9 % (3.8-10.2); NEUT % 81.3 % (42.8-82.8); PLATELET COUNT 121 K/MM3 (134-434); RDW 18.9 % (11.6-15.6); WHITE BLOOD COUNT 8.5 K/mm3 (4.0-10.0)
--- NOTE | 2019-07-13 11:18 | PN ---
Progress Note, Physician History of Present Illness: NO C/O L LE PAIN TEMPS DOWN AFEBRILE WBC IMPROVED PLT LOWER BC (-) TOLERATING ANTIBIOTICS - Current Medication List Current Medications: Active Medications Acetaminophen (Tylenol -) 650 mg PO Q6H PRN PRN Reason: HEADACHE Last Admin: 07/13/19 06:38 Dose: 650 mg Apixaban (Eliquis -) 5 mg PO BID [facility] Last Admin: 07/13/19 10:48 Dose: 5 mg Ascorbic Acid (Vitamin C -) 1,000 mg PO DAILY [facility] Last Admin: 07/13/19 10:47 Dose: 1,000 mg Cholecalciferol (Vitamin D3 -) 1,000 unit PO BID [facility] Last Admin: 07/13/19 10:47 Dose: 1,000 unit Cyanocobalamin (Vitamin B12 -) 1,000 mcg PO DAILY [facility] Last Admin: 07/13/19 10:48 Dose: 1,000 mcg Diltiazem HCl (Cardizem Cd -) 360 mg PO DAILY [facility] Last Admin: 07/13/19 10:47 Dose: 360 mg Gabapentin (Neurontin -) 400 mg PO TID [facility] Last Admin: 07/13/19 06:34 Dose: 400 mg Sodium Chloride (Normal Saline -) 1,000 mls @ 100 mls/hr IV ASDIR [facility] Last Admin: 07/13/19 10:49 Dose: Not Given Aztreonam 2 gm/ Dextrose 100 mls @ 100 mls/hr IVPB Q8H-IV [facility]; Protocol Last Admin: 07/13/19 10:47 Dose: 100 mls/hr Daptomycin 700 mg/ Sodium (Chloride) 50 mls @ 50 mls/hr IVPB DAILY [facility]; Protocol Last Admin: 07/12/19 16:11 Dose: 50 mls/hr Metoprolol Succinate (Toprol Xl -) 50 mg PO BID [facility] Last Admin: 07/13/19 10:48 Dose: 50 mg Nystatin (Nystop Powder -) 1 applic TP TID [facility] Last Admin: 07/13/19 06:39 Dose: 1 applic Oxycodone HCl (Roxicodone -) 5 mg PO Q6H PRN PRN Reason: PAIN LEVEL 7 - 10 Last Admin: 07/13/19 00:29 Dose: 5 mg Prednisone (Deltasone -) 15 mg PO DAILY [facility] Stop: 07/16/19 10:01 Prednisone (Deltasone -) 10 mg PO DAILY [facility] Stop: 07/19/19 10:01 Prednisone (Deltasone -) 5 mg PO DAILY [facility] Stop: 07/22/19 10:01 Ranitidine HCl (Zantac -) 150 mg PO BID [facility] Last Admin: 07/13/19 10:48 Dose: 150 mg - Objective Vital Signs: Vital Signs Temperature 97.4 F L 07/13/19 10:00 Pulse Rate 87 07/13/19 10:00 Respiratory Rate 18 07/13/19 10:00 Blood Pressure 109/66 07/13/19 10:00 O2 Sat by Pulse Oximetry (%) 96 07/12/19 21:00 Constitutional: Yes: No Distress, Obese Cardiovascular: Yes: Regular Rate and Rhythm, S1, S2 Respiratory: Yes: CTA Bilaterally Gastrointestinal: Yes: Normal Bowel Sounds, Soft. No: Tenderness Extremities: Yes: Other (L THIGH ERYTHEMA, ERYTHEMA, LOWER ABDOMEN, CHRONIC VENOUS STASIS DERMATITIS) Labs: CBC, BMP 07/13/19 10:43 07/13/19 06:04 INR, PTT INR 1.28 (0.83-1.09) H 07/10/19 20:27 Assessment/Plan RECURRENT LE CELLULITIS MULTIPLE ANTIBIOTIC ALLERGIES CONTINUE DAPTOMYCIN/ AZTREONAM
[2019-07-13] MEDS: DAPTOMYCIN 700 MG in SODIUM CHLORIDE 50 ML IVPB SCH (12:00)
--- NOTE | 2019-07-13 14:27 | PN ---
Teaching Attending Note Name of Resident: Sky Romero ATTENDING PHYSICIAN STATEMENT I saw and evaluated the patient. I reviewed the resident's note and discussed the case with the resident. I agree with the resident's findings and plan as documented with exceptions below. SUBJECTIVE: Patient seen and examined, overall unchanged. No fevers, chills or concerns. OBJECTIVE: Vital Signs Period Temp Pulse Resp BP Sys/William Pulse Ox Last 24 Hr 97.4 F-98.3 F 74-87 18-20 109-132/64-79 96 Intake & Output 07/10/19 07/11/19 07/12/19 07/13/19 23:59 23:59 23:59 23:59 Intake Total 450 2250 1450 Balance 450 2250 1450 Weight 260 lb 270 lb 8 oz 279 lb General: morbidly obese in bed, no acute distress Neck: soft, supple HEENT: PERRL, EOMI CVS:S1S2 regular Chest: no rales or wheezing appreciated, limited by habitus Abdomen:Soft, morbidly obese abomen, minimal erythema in right lateral groin region in skin folds (much better from recent admission), no RLQ tenderness noted, minimal erythema right thigh (improved from recent admission), Left thigh erythema vs petechial rash and overlying left leg chronic dermatitis symptoms Back: unable to co-operate for exam currently Psych: awake,appropriate Home Medications Medication Instructions Recorded Ascorbate Calcium [Vitamin C] 1,000 mg PO DAILY 08/30/15 Cholecalciferol (Vitamin D3) 1,000 unit PO BID 08/30/15 [Vitamin D3] Cyanocobalamin [Vitamin B12 -] 1,000 mcg PO DAILY 08/30/15 Oxycodone/APAP [Percocet - Must 1 each NR QID PRN 08/30/15 Order Individual Components] Simvastatin 10 mg PO HS 08/30/15 Guaifenesin [Mucinex] 600 mg PO DAILY 06/20/17 Metoprolol Succinate [Toprol XL -] 50 mg PO BID #60 tab.sr 06/25/17 Diltiazem [Cardizem -] 360 mg PO DAILY 08/29/17 Furosemide [Lasix] 40 mg PO DAILY PRN 08/29/17 Apixaban [Eliquis] 5 mg PO BID 04/22/19 Enalapril Maleate [Vasotec -] 2.5 mg PO DAILY 05/14/19 Gabapentin [Neurontin] 400 mg PO TID 05/14/19 Hydroxychloroquine Sulfate 200 mg PO DAILY 05/14/19 Ranitidine HCl [Zantac] 150 mg PO BID 05/14/19 Nystatin Powder [Nystop Powder -] 1 applic TP TID PRN #1 applic 06/16/19 Prednisone See Taper PO ASDIR #110 tablet 06/29/19 Active Medications Acetaminophen (Tylenol -) 650 mg PO Q6H PRN PRN Reason: HEADACHE Last Admin: 07/13/19 14:06 Dose: 650 mg Apixaban (Eliquis -) 5 mg PO BID [facility] Last Admin: 07/13/19 10:48 Dose: 5 mg Ascorbic Acid (Vitamin C -) 1,000 mg PO DAILY [facility] Last Admin: 07/13/19 10:47 Dose: 1,000 mg Cholecalciferol (Vitamin D3 -) 1,000 unit PO BID [facility] Last Admin: 07/13/19 10:47 Dose: 1,000 unit Cyanocobalamin (Vitamin B12 -) 1,000 mcg PO DAILY [facility] Last Admin: 07/13/19 10:48 Dose: 1,000 mcg Diltiazem HCl (Cardizem Cd -) 360 mg PO DAILY [facility] Last Admin: 07/13/19 10:47 Dose: 360 mg Gabapentin (Neurontin -) 400 mg PO TID [facility] Last Admin: 07/13/19 14:06 Dose: 400 mg Sodium Chloride (Normal Saline -) 1,000 mls @ 100 mls/hr IV ASDIR [facility] Last Admin: 07/13/19 10:49 Dose: Not Given Aztreonam 2 gm/ Dextrose 100 mls @ 100 mls/hr IVPB Q8H-IV [facility]; Protocol Last Admin: 07/13/19 10:47 Dose: 100 mls/hr Daptomycin 700 mg/ Sodium (Chloride) 50 mls @ 50 mls/hr IVPB DAILY [facility]; Protocol Last Admin: 07/13/19 12:00 Dose: 50 mls/hr Metoprolol Succinate (Toprol Xl -) 50 mg PO BID [facility] Last Admin: 07/13/19 10:48 Dose: 50 mg Nystatin (Nystop Powder -) 1 applic TP TID [facility] Last Admin: 07/13/19 14:06 Dose: 1 applic Oxycodone HCl (Roxicodone -) 5 mg PO Q6H PRN PRN Reason: PAIN LEVEL 7 - 10 Last Admin: 07/13/19 00:29 Dose: 5 mg Prednisone (Deltasone -) 15 mg PO DAILY [facility] Stop: 07/16/19 10:01 Prednisone (Deltasone -) 10 mg PO DAILY [facility] Stop: 07/19/19 10:01 Prednisone (Deltasone -) 5 mg PO DAILY [facility] Stop: 07/22/19 10:01 Ranitidine HCl (Zantac -) 150 mg PO BID [facility] Last Admin: 07/13/19 10:48 Dose: 150 mg Laboratory Results - last 24 hr 07/13/19 07/13/19 07/13/19 06:04 06:04 10:43 WBC Cancelled 8.5 Corrected WBC (auto) Cancelled RBC Cancelled 4.10 Hgb Cancelled 11.6 Hct Cancelled 36.3 MCV Cancelled 88.6 MCH Cancelled 28.3 MCHC Cancelled 32.0 RDW Cancelled 18.9 H Plt Count Cancelled 121 L MPV Cancelled 8.3 Absolute Neuts (auto) Cancelled 6.9 Neutrophils % Cancelled 81.3 Lymphocytes % Cancelled 9.6 D Monocytes % Cancelled 5.9 Eosinophils % Cancelled 2.9 D Basophils % Cancelled 0.3 Nucleated RBC % Cancelled 0 Platelet Estimate Cancelled Platelet Comment Cancelled Sodium 141 Potassium 4.6 Chloride 105 Carbon Dioxide 31 Anion Gap 5 L BUN 16.1 Creatinine 0.3 L Est GFR (CKD-EPI)AfAm 132.57 Est GFR (CKD-EPI)NonAf 114.39 Random Glucose 85 Calcium 8.2 L Phosphorus 3.0 Magnesium 1.8 Total Bilirubin 0.4 AST 17 ALT 46 Alkaline Phosphatase 84 Creatine Kinase 24 L Total Protein 5.2 L Albumin 2.2 L Microbiology 07/10/19 20:35 Blood - Peripheral Venous Blood Culture - Preliminary NO GROWTH OBTAINED AFTER 48 HOURS, INCUBATION TO CONTINUE FOR 3 DAYS. 07/10/19 20:30 Blood - Peripheral Venous Blood Culture - Preliminary NO GROWTH OBTAINED AFTER 48 HOURS, INCUBATION TO CONTINUE FOR 3 DAYS. 07/10/19 22:40 Urine - Urine Clean Catch Urine Culture - Final Contaminated: Please Repeat ASSESSMENT AND PLAN: 74 yof with PMHx of Afib on eliquis, OA, RA, Sjogren's, COPDo n 4L home oxygen, venous stasis dermatitis, VRE, pseudomonas, recurrent RLE cellulitis, admitted with sepsis -Sepsis , Cellulitis/pannus -?Decubitus ulcer -Chronic right leg severe dermatitis -Hyperkalemia -RA/Sjogrens's -OA -COPD on 4L home oxygen -Afib on eliquis Plan: WBC improved, Fevers resolved. ID input noted. Aztreonam/vancmycin. Follow up cultures. Continue recent prednisone taper. Dermatology consulted, case discussed with Dr. Lancaster, to see patient tomorrow , will follow up recs. Wound care consult for sacral decubitus ulcer. CT A/P results noted. Renal mass increased in size, urology input. Anticipate outpatient follow up. No focal s/s to suggest pulmonary/urinary process. Current abdominal exam non tender. Continue IVF. Hold enalapril. Metoprolol/cardizem as hemodynamics tolerate. Hold hydroxychloroquine for now DVTPPX on eliquis Dispo pending clinical improvement. Discussed with patient and nursing. Care co-ordinated with dermatology. .
--- NOTE | 2019-07-13 16:14 | CON.GU ---
Consult - History of Present Illness History of Present Illness: 74 yo female with multiple medical problems admitted with fever. Noted to have a 2.4cm partially exophytic rt renal mass on CT. No flank pain. No voiding c/o. No prior history as per pt - Past Medical History Cardio/Vascular: Yes: AFIB, HTN, Other (h/o DVT, venous stasis ) Pulmonary: Yes: COPD, Sleep Apnea Hepatobiliary: Yes: Other (fatty liver disease) ...: No Infectious Disease: Yes: Other (recurrent cellulitis) Musculoskeletal: Yes: Chronic low back pain (/spinal stenosis) Rheumatology: Yes: Rheumatoid Arthritis Endocrine: Yes: Osteopenia, Other (obesity, thyroid nodule) - Past Surgical History Past Surgical History: Yes: Joint Replacement (right knee over 10 years ago) - Alcohol/Substance Use Hx Alcohol Use: No History of Substance Use: reports: None - Smoking History Smoking history: Former smoker Have you smoked in the past 12 months: No Aproximately how many cigarettes per day: 0 If you are a former smoker, when did you quit?: 1984 - Social History Usual Living Arrangement: With Spouse ( disabled) ADL: Support Services History of Recent Travel: No Home Medications - Allergies Allergies/Adverse Reactions: Allergies Allergy/AdvReac Type Severity Reaction Status Date / Time Penicillins Allergy Severe Swelling Verified 07/10/19 18:59 clindamycin Allergy Mild Rash Verified 07/10/19 18:59 doxycycline Allergy Swelling Verified 07/10/19 18:59 levofloxacin [From Levaquin] Allergy Rash Verified 07/10/19 18:59 vancomycin AdvReac Mild Itching Verified 07/10/19 18:59 adhesive tape AdvReac "RIPS MY Verified 07/10/19 18:59 SKIN" - Home Medications Home Medications: Ambulatory Orders Ascorbate Calcium [Vitamin C] 1,000 mg PO DAILY 08/30/15 Cholecalciferol (Vitamin D3) [Vitamin D3] 1,000 unit PO BID 08/30/15 Cyanocobalamin [Vitamin B12 -] 1,000 mcg PO DAILY 08/30/15 Oxycodone/APAP [Percocet - Must Order Individual Components] 1 each NR QID PRN 08/30/15 Simvastatin 10 mg PO HS 08/30/15 Guaifenesin [Mucinex] 600 mg PO DAILY 06/20/17 Metoprolol Succinate [Toprol XL -] 50 mg PO BID #60 tab.sr 06/25/17 Diltiazem [Cardizem -] 360 mg PO DAILY 08/29/17 Furosemide [Lasix] 40 mg PO DAILY PRN 08/29/17 Apixaban [Eliquis] 5 mg PO BID 04/22/19 Enalapril Maleate [Vasotec -] 2.5 mg PO DAILY 05/14/19 Gabapentin [Neurontin] 400 mg PO TID 05/14/19 Hydroxychloroquine Sulfate 200 mg PO DAILY 05/14/19 Ranitidine HCl [Zantac] 150 mg PO BID 05/14/19 Nystatin Powder [Nystop Powder -] 1 applic TP TID PRN #1 applic 06/16/19 Prednisone See Taper PO ASDIR #110 tablet 06/29/19 Family Disease History - Family Disease History Family Disease History: Other: Father (alcohol abuse), Mother (rheumatoid arthritis) Physical Exam- Vital Signs: Vital Signs Temperature 97.4 F L 07/13/19 14:38 Pulse Rate 88 07/13/19 14:38 Respiratory Rate 18 07/13/19 14:38 Blood Pressure 110/66 07/13/19 14:38 O2 Sat by Pulse Oximetry (%) 96 07/13/19 09:00 Renal/: Yes: WNL Labs: CBC, BMP 07/13/19 10:43 07/13/19 06:04 Imaging - Results Cat Scan: Report Reviewed Problem List - Problems (1) Right renal mass Assessment/Plan: renal sono ordered Code(s): N28.89 - OTHER SPECIFIED DISORDERS OF KIDNEY AND URETER
--- NOTE | 2019-07-13 19:27 | PN ---
Physical Exam: SUBJECTIVE: Patient seen and examined no new complain feeling better she said she missed her appointment for unknown reasons with dermatology this is why she came to the hospital. OBJECTIVE: Vital Signs Period Temp Pulse Resp BP Sys/William Pulse Ox Last 24 Hr 97.4 F-98.5 F 80-88 18-20 109-121/62-79 96-96 GENERAL: The patient is awake, alert, and fully oriented, in no acute distress. HEAD: Normal with no signs of trauma. EYES: sclera anicteric, conjunctiva clear. LUNGS: Breath sounds equal, clear to auscultation bilaterally, HEART: Regular rate and rhythm, S1, S2 without murmur, rub or gallop. ABDOMEN: Obese Soft, nontender, nondistended, normoactive bowel sounds, sever left side erythema LLQ inguinal abdominal fold, left knee and thigh erythema EXTREMITIES: 2+ pulses, extensive b/l erythema with sclaes right worse than left , no edema , +2 Pulse left leg .+1 right leg. NEUROLOGICAL: no focal deficit , move all ext PSYCH: Normal mood, normal affect. SKIN: Warm, dry, Laboratory Results - last 24 hr 07/13/19 07/13/19 07/13/19 06:04 06:04 10:43 WBC Cancelled 8.5 Corrected WBC (auto) Cancelled RBC Cancelled 4.10 Hgb Cancelled 11.6 Hct Cancelled 36.3 MCV Cancelled 88.6 MCH Cancelled 28.3 MCHC Cancelled 32.0 RDW Cancelled 18.9 H Plt Count Cancelled 121 L MPV Cancelled 8.3 Absolute Neuts (auto) Cancelled 6.9 Neutrophils % Cancelled 81.3 Lymphocytes % Cancelled 9.6 D Monocytes % Cancelled 5.9 Eosinophils % Cancelled 2.9 D Basophils % Cancelled 0.3 Nucleated RBC % Cancelled 0 Platelet Estimate Cancelled Platelet Comment Cancelled Sodium 141 Potassium 4.6 Chloride 105 Carbon Dioxide 31 Anion Gap 5 L BUN 16.1 Creatinine 0.3 L Est GFR (CKD-EPI)AfAm 132.57 Est GFR (CKD-EPI)NonAf 114.39 Random Glucose 85 Calcium 8.2 L Phosphorus 3.0 Magnesium 1.8 Total Bilirubin 0.4 AST 17 ALT 46 Alkaline Phosphatase 84 Creatine Kinase 24 L Total Protein 5.2 L Albumin 2.2 L Active Medications Generic Name Dose Route Start Last Admin Trade Name Freq PRN Reason Stop Dose Admin Acetaminophen 650 mg 07/11/19 10:59 07/13/19 14:06 Tylenol - PO 650 mg Q6H PRN Administration HEADACHE Apixaban 5 mg 07/11/19 10:00 07/13/19 10:48 Eliquis - PO 5 mg BID BELL Administration Ascorbic Acid 1,000 mg 07/11/19 10:00 07/13/19 10:47 Vitamin C - PO 1,000 mg DAILY BELL Administration Cholecalciferol 1,000 unit 07/11/19 10:00 07/13/19 10:47 Vitamin D3 - PO 1,000 unit BID BELL Administration Cyanocobalamin 1,000 mcg 07/11/19 10:00 07/13/19 10:48 Vitamin B12 - PO 1,000 mcg DAILY BE[facility] Administration Diltiazem HCl 360 mg 07/11/19 10:00 07/13/19 10:47 Cardizem Cd - PO 360 mg DAILY BELL Administration Gabapentin 400 mg 07/11/19 07:44 07/13/19 14:06 Neurontin - PO 400 mg TID BELL Administration Sodium Chloride 1,000 mls @ 100 mls/hr 07/11/19 10:45 07/13/19 17:56 Normal Saline - IV 100 mls/hr ASDIR BELL Administration Aztreonam 2 gm/ Dextrose 100 mls @ 100 mls/hr 07/12/19 11:15 07/13/19 17:56 IVPB 100 mls/hr Q8H-IV BELL Administration Protocol Daptomycin 700 mg/ Sodium 50 mls @ 50 mls/hr 07/12/19 13:00 07/13/19 12:00 Chloride IVPB 50 mls/hr DAILY BELL Administration Protocol Metoprolol Succinate 50 mg 07/11/19 10:45 07/13/19 10:48 Toprol Xl - PO 50 mg BID BELL Administration Nystatin 1 applic 07/11/19 03:00 07/13/19 14:06 Nystop Powder - TP 1 applic TID BELL Administration Oxycodone HCl 5 mg 07/12/19 15:36 07/13/19 00:29 Roxicodone - PO 5 mg Q6H PRN Administration PAIN LEVEL 7 - 10 Prednisone 15 mg 07/14/19 10:00 Deltasone - PO 07/16/19 10:01 DAILY BELL Prednisone 10 mg 07/17/19 10:00 Deltasone - PO 07/19/19 10:01 DAILY BELL Prednisone 5 mg 07/20/19 10:00 Deltasone - PO 07/22/19 10:01 DAILY BELL Ranitidine HCl 150 mg 07/11/19 10:00 07/13/19 10:48 Zantac - PO 150 mg BID BELL Administration CBC, BMP 07/13/19 10:43 07/13/19 06:04 ASSESSMENT/PLAN: 74 year old female who comes in with fevers and worsening erythema today. She was recently discharged on 06/16 after being treated for cellulitis extending from her R foot up to her abdomen and now to left thigh and knee . # Cellulitis R.O CTD : ID on Board cont with IV abx , ( aztreonam. Daptocmycin ) and prednisonetaper taper and zantac , consult dermatology. # Thrombocytopenia monitor daily , no active bleeding thus far # Sacral decupitus ulcer : wound care , change position # right renal mass follow renal US # bibasilar atelectasis : incentive spirometry # moderate degenrative disc L3-L4 :follow up out pt # HTN on Deltiazim , metoprolol xl 50 BID , hold enalapril # AFIB on Eliquis 5 BID , Mteoprolol 50 BID # Sleep Apnea , follow up out pt # copd , stable # RA on Hydroxychloroquin hold for now #Osteopenia on Vit D , Vit C and b12 # constipation:cont colace # Back pain on Marielena 400 TID # Chronic venous stasis stable on base line # Dispo to SNF with dermatology out pt. Visit type - Emergency Visit Emergency Visit: Yes ED Registration Date: 07/10/19 Care time: The patient presented to the Emergency Department on the above date and was hospitalized for further evaluation of their emergent condition. - New Patient This patient is new to me today: Yes Date on this admission: 07/13/19 - Critical Care Critical Care patient: No ATTENDING PHYSICIAN STATEMENT I saw and evaluated the patient. I reviewed the resident's note and discussed the case with the resident. I agree with the resident's findings and plan as documented. SUBJECTIVE: OBJECTIVE: ASSESSMENT AND PLAN:
[2019-07-13] MEDS ORDERED: MELATONIN 5 MG TABLETS PO ONE (22:53)
[2019-07-14] MEDS ORDERED: PT OWN MED DRAWER 7, Y5N ONE ×4 (01:30→18:12)
[2019-07-14] MEDS: AZTREONAM 2 GM in DEXTROSE 5%-WATER 100 ML IVPB SCH ×3 (01:44→18:24)
[2019-07-14] MEDS: ACETAMINOPHEN 325 MG TABLET (FP) PO PRN (04:53)
[2019-07-14] MEDS: GABAPENTIN 400 MG CAPSULE (FP) PO SCH ×3 (06:37→22:18)
[2019-07-14] MEDS: SODIUM CHLORIDE 1,000 ML IV SCH ×2 (06:38→11:07)
[2019-07-14] MEDS: NYSTATIN POWDER 100,000 UNITS/GM - 15 GM TOPICAL POWDER TP SCH ×3 (06:38→22:19)
[2019-07-14 07:46] LABS: BASO % 0.1 % (0-2.0); EOS % 1.7 % (0-4.5); HEMATOCRIT 34.3 % (32.4-45.2); HEMOGLOBIN 11.2 GM/dL (10.7-15.3); LYMPH % 7.6 % (8-40); MCH 28.7 pg (25.7-33.7); MCHC 32.6 g/dl (32.0-36.0); MEAN PLT VOLUME 8.6 fl (7.5-11.1); MONO % 7.7 % (3.8-10.2); NEUT % 82.9 % (42.8-82.8); PLATELET COUNT 144 K/MM3 (134-434); RDW 18.7 % (11.6-15.6); WHITE BLOOD COUNT 7.9 K/mm3 (4.0-10.0)
[2019-07-14 08:05] LABS: ALBUMIN 2.2 g/dl (3.4-5.0); BILIRUBIN,TOTAL 0.4 mg/dL (0.2-1); CALCIUM 8.2 mg/dL (8.5-10.1); CREATININE 0.3 mg/dL (0.55-1.3); TOT PROT 5.2 g/dl (6.4-8.2)
[2019-07-14] MEDS ORDERED: predniSONE 10 MG TABLET (UD) PO SCH (10:00)
[2019-07-14] MEDS: APIXABAN 5 MG TABLET PO SCH ×2 (10:14→22:18)
[2019-07-14] MEDS: CHOLECALCIFEROL (VIT D3) 1,000 UNIT (25 MCG) TABLET PO SCH ×2 (10:14→22:18)
[2019-07-14] MEDS: CYANOCOBALAMIN 1,000 MCG TABLET (FP) PO SCH (10:14)
[2019-07-14] MEDS: ASCORBIC ACID 500 MG TABLET (FP) PO SCH (10:14)
[2019-07-14] MEDS: RANITIDINE HCL 150 MG TABLET (FP) PO SCH ×2 (10:14→22:18)
[2019-07-14] MEDS: DAPTOMYCIN 700 MG in SODIUM CHLORIDE 50 ML IVPB SCH (10:45)
[2019-07-14] MEDS ORDERED: ALBUTEROL SO4 2.5/IPRATROPIUM 0.5 INH SOL 3 ML VIAL.NEB. NEB PRN (12:30)
[2019-07-14] MEDS ORDERED: FUROSEMIDE 40 MG/4 ML INJECTABLE VIAL IVPUSH ONE (12:30)
--- NOTE | 2019-07-14 12:37 | PN ---
Physical Exam: SUBJECTIVE: Patient seen and examined, anxious about her renal mass and requesting info. No new complaints, leg pain, abdominal pain, nausea, vomiting. tolerating diet well. OBJECTIVE: Vital Signs Period Temp Pulse Resp BP Sys/William Pulse Ox Last 24 Hr 97.4 F-99.2 F 80-96 18-22 106-121/51-89 95 Intake & Output 07/11/19 07/12/19 07/13/19 07/14/19 23:59 23:59 23:59 23:59 Intake Total 450 2250 3980 1040 Balance 450 2250 3980 1040 Weight 270 lb 8 oz 279 lb 283 lb 14.4 oz General: morbidly obese in bed, no acute distress Neck: soft, supple HEENT: PERRL, EOMI CVS:S1S2 regular Chest: scattered wheezing with few rales Abdomen:Soft, morbidly obese abdomen, minimal erythema in right lateral groin region in skin folds (much better from recent admission), no RLQ tenderness noted, minimal erythema right thigh (improved from recent admission), Left thigh erythema vs petechial rash with some clearing and overlying left leg chronic dermatitis symptoms Back: unable to co-operate for exam currently Psych: awake,appropriate Laboratory Results - last 24 hr 07/14/19 07/14/19 06:23 06:23 WBC 7.9 RBC 3.90 Hgb 11.2 Hct 34.3 MCV 88.0 MCH 28.7 MCHC 32.6 RDW 18.7 H Plt Count 144 MPV 8.6 Absolute Neuts (auto) 6.5 Neutrophils % 82.9 H Lymphocytes % 7.6 L D Monocytes % 7.7 Eosinophils % 1.7 Basophils % 0.1 Nucleated RBC % 0 Sodium 142 Potassium 4.0 Chloride 104 Carbon Dioxide 34 H Anion Gap 4 L BUN 18.0 Creatinine 0.3 L Est GFR (CKD-EPI)AfAm 132.57 Est GFR (CKD-EPI)NonAf 114.39 Random Glucose 87 Calcium 8.2 L Total Bilirubin 0.4 AST 10 L ALT 37 Alkaline Phosphatase 85 Total Protein 5.2 L Albumin 2.2 L Active Medications Generic Name Dose Route Start Last Admin Trade Name Freq PRN Reason Stop Dose Admin Acetaminophen 650 mg 07/11/19 10:59 07/14/19 04:53 Tylenol - PO 650 mg Q6H PRN Administration HEADACHE Albuterol/Ipratropium 1 amp 07/14/19 12:30 Duoneb - NEB Q4H PRN SHORTNESS OF BREATH Apixaban 5 mg 07/11/19 10:00 07/14/19 10:14 Eliquis - PO 5 mg BID BELL Administration Ascorbic Acid 1,000 mg 07/11/19 10:00 07/14/19 10:14 Vitamin C - PO 1,000 mg DAILY BELL Administration Cholecalciferol 1,000 unit 07/11/19 10:00 07/14/19 10:14 Vitamin D3 - PO 1,000 unit BID BELL Administration Cyanocobalamin 1,000 mcg 07/11/19 10:00 07/14/19 10:14 Vitamin B12 - PO 1,000 mcg DAILY BELL Administration Diltiazem HCl 360 mg 07/11/19 10:00 07/14/19 10:14 Cardizem Cd - PO 360 mg DAILY BELL Administration Furosemide 40 mg 07/15/19 10:00 Lasix - PO DAILY BELL Furosemide 20 mg 07/14/19 12:30 Lasix Injection - IVPUSH 07/14/19 12:31 ONCE ONE Gabapentin 400 mg 07/11/19 07:44 07/14/19 06:37 Neurontin - PO 400 mg TID BELL Administration Aztreonam 2 gm/ Dextrose 100 mls @ 100 mls/hr 07/12/19 11:15 07/14/19 10:15 IVPB 100 mls/hr Q8H-IV BELL Administration Protocol Daptomycin 700 mg/ Sodium 50 mls @ 50 mls/hr 07/12/19 13:00 07/14/19 10:45 Chloride IVPB 50 mls/hr DAILY BE[facility] Administration Protocol Metoprolol Succinate 50 mg 07/11/19 10:45 07/14/19 10:14 Toprol Xl - PO 50 mg BID BELL Administration Nystatin 1 applic 07/11/19 03:00 07/14/19 06:38 Nystop Powder - TP 1 applic TID BELL Administration Oxycodone HCl 5 mg 07/12/19 15:36 07/13/19 00:29 Roxicodone - PO 5 mg Q6H PRN Administration PAIN LEVEL 7 - 10 Prednisone 10 mg 07/17/19 10:00 Deltasone - PO 07/19/19 10:01 DAILY BELL Prednisone 5 mg 07/20/19 10:00 Deltasone - PO 07/22/19 10:01 DAILY BELL Prednisone 15 mg 07/14/19 11:16 Deltasone - PO 07/16/19 10:01 DAILY BELL Ranitidine HCl 150 mg 07/11/19 10:00 07/14/19 10:14 Zantac - PO 150 mg BID BELL Administration Microbiology 07/10/19 20:35 Blood - Peripheral Venous Blood Culture - Preliminary NO GROWTH OBTAINED AFTER 72 HOURS, INCUBATION TO CONTINUE FOR 2 DAYS. 07/10/19 20:30 Blood - Peripheral Venous Blood Culture - Preliminary NO GROWTH OBTAINED AFTER 72 HOURS, INCUBATION TO CONTINUE FOR 2 DAYS. 07/10/19 22:40 Urine - Urine Clean Catch Urine Culture - Final Contaminated: Please Repeat Renal US results noted. ASSESSMENT/PLAN: 74 yof with PMHx of Afib on eliquis, OA, RA, Sjogren's, COPDo n 4L home oxygen, venous stasis dermatitis, VRE, pseudomonas, recurrent RLE cellulitis, admitted with sepsis -Sepsis , Cellulitis/pannus -?Decubitus ulcer -Chronic right leg severe dermatitis -Acute diastolic heart failure exac, from aggressive volume resuscitation -Hyperkalemia -Left renal pole mass -RA/Sjogrens's -OA -COPD on 4L home oxygen -Afib on eliquis Plan: Leucocytosis/fevers resolved. ID input noted. Aztreonam/vancmycin. Follow up cultures. Continue recent prednisone taper. Dermatology consulted, case discussed with Dr. Lancaster, to see patient today, will follow up recs. ?skin biopsy. Wound care consult for sacral decubitus ulcer. CT A/P results noted. Renal mass increased in size, renal US results noted. follow up urology recs. No concerns for Appendicitis on repeat CT A/P. Surgery input noted. dc IVF, lasix 20 mg IV x 1, resume lasix 40 mg daily for now and monitor volume status. Nebs. Hold enalapril. Metoprolol/cardizem as hemodynamics tolerate. Hold hydroxychloroquine for now DVTPPX on eliquis Dispo pending clinical improvement. Discussed with patient and nursing. Visit type - Emergency Visit Emergency Visit: Yes ED Registration Date: 07/10/19 Care time: The patient presented to the Emergency Department on the above date and was hospitalized for further evaluation of their emergent condition. - New Patient This patient is new to me today: No - Critical Care Critical Care patient: No - Discharge Referral Referred to [facility] Med P.C.: No
--- NOTE | 2019-07-14 13:06 | PN ---
Progress Note, Physician History of Present Illness: LETHARGIC TODAY NO C/O L LE PAIN TEMPS DOWN AFEBRILE WBC IMPROVED WNL PLT IMPROVED BC (-) TOLERATING ANTIBIOTICS - Current Medication List Current Medications: Active Medications Acetaminophen (Tylenol -) 650 mg PO Q6H PRN PRN Reason: HEADACHE Last Admin: 07/14/19 04:53 Dose: 650 mg Albuterol/Ipratropium (Duoneb -) 1 amp NEB Q4H PRN PRN Reason: SHORTNESS OF BREATH Apixaban (Eliquis -) 5 mg PO BID [facility] Last Admin: 07/14/19 10:14 Dose: 5 mg Ascorbic Acid (Vitamin C -) 1,000 mg PO DAILY [facility] Last Admin: 07/14/19 10:14 Dose: 1,000 mg Cholecalciferol (Vitamin D3 -) 1,000 unit PO BID [facility] Last Admin: 07/14/19 10:14 Dose: 1,000 unit Cyanocobalamin (Vitamin B12 -) 1,000 mcg PO DAILY [facility] Last Admin: 07/14/19 10:14 Dose: 1,000 mcg Diltiazem HCl (Cardizem Cd -) 360 mg PO DAILY [facility] Last Admin: 07/14/19 10:14 Dose: 360 mg Furosemide (Lasix -) 40 mg PO DAILY [facility] Gabapentin (Neurontin -) 400 mg PO TID [facility] Last Admin: 07/14/19 06:37 Dose: 400 mg Aztreonam 2 gm/ Dextrose 100 mls @ 100 mls/hr IVPB Q8H-IV BELL; Protocol Last Admin: 07/14/19 10:15 Dose: 100 mls/hr Daptomycin 700 mg/ Sodium (Chloride) 50 mls @ 50 mls/hr IVPB DAILY [facility]; Protocol Last Admin: 07/14/19 10:45 Dose: 50 mls/hr Metoprolol Succinate (Toprol Xl -) 50 mg PO BID [facility] Last Admin: 07/14/19 10:14 Dose: 50 mg Nystatin (Nystop Powder -) 1 applic TP TID [facility] Last Admin: 07/14/19 06:38 Dose: 1 applic Oxycodone HCl (Roxicodone -) 5 mg PO Q6H PRN PRN Reason: PAIN LEVEL 7 - 10 Last Admin: 07/13/19 00:29 Dose: 5 mg Prednisone (Deltasone -) 10 mg PO DAILY [facility] Stop: 07/19/19 10:01 Prednisone (Deltasone -) 5 mg PO DAILY [facility] Stop: 07/22/19 10:01 Prednisone (Deltasone -) 15 mg PO DAILY [facility] Stop: 07/16/19 10:01 Ranitidine HCl (Zantac -) 150 mg PO BID [facility] Last Admin: 07/14/19 10:14 Dose: 150 mg - Objective Vital Signs: Vital Signs Temperature 99.2 F 07/14/19 08:05 Pulse Rate 82 07/14/19 08:05 Respiratory Rate 20 07/14/19 08:05 Blood Pressure 110/68 07/14/19 08:05 O2 Sat by Pulse Oximetry (%) 95 07/13/19 21:00 Constitutional: Yes: No Distress, Obese Cardiovascular: Yes: Regular Rate and Rhythm, S1, S2 Respiratory: Yes: CTA Bilaterally Gastrointestinal: Yes: Normal Bowel Sounds, Soft, Abdomen, Obese. No: Tenderness Extremities: Yes: Other (DECREASED ERYTHEMA L LE) Labs: CBC, BMP 07/14/19 06:23 07/14/19 06:23 INR, PTT INR 1.28 (0.83-1.09) H 07/10/19 20:27 Assessment/Plan RECURRENT LE CELLULITIS IMPROVED MULTIPLE ANTIBIOTIC ALLERGIES CONTINUE DAPTOMYCIN/ AZTREONAM
[2019-07-14] MEDS: TRIAMCINOLONE ACET 0.1% CREAM 15 GM TUBE TP SCH (22:19)
[2019-07-14] MEDS: oxyCODONE HCL 5 MG TABLET PO PRN (22:21)
[2019-07-15] MEDS ORDERED: PT OWN MED DRAWER 7, Y5N ONE ×3 (01:55→18:58)
[2019-07-15] MEDS: AZTREONAM 2 GM in DEXTROSE 5%-WATER 100 ML IVPB SCH ×3 (01:59→19:23)
[2019-07-15] MEDS: GABAPENTIN 400 MG CAPSULE (FP) PO SCH ×3 (06:36→22:03)
[2019-07-15] MEDS: NYSTATIN POWDER 100,000 UNITS/GM - 15 GM TOPICAL POWDER TP SCH ×3 (06:38→22:03)
[2019-07-15] MEDS: oxyCODONE HCL 5 MG TABLET PO PRN (06:56)
--- NOTE | 2019-07-15 07:51 | PN ---
Physical Exam: SUBJECTIVE: Patient seen and examined no new complain feeling better breathing better , still with some crackles at the bases , one lasix 20 IV and reevaluate daily OBJECTIVE: Vital Signs Period Temp Pulse Resp BP Sys/William Pulse Ox Last 24 Hr 98.2 F-99.2 F 82-92 20-20 110-133/64-68 95-99 GENERAL: The patient is awake, alert, and fully oriented, in no acute distress. HEAD: Normal with no signs of trauma. EYES: sclera anicteric, conjunctiva clear. LUNGS:bibasilar crackles HEART: Regular rate and rhythm, S1, S2 without murmur, rub or gallop. ABDOMEN: Obese Soft, nontender, nondistended, normoactive bowel sounds, sever left side erythema LLQ inguinal abdominal fold, left knee and thigh erythema EXTREMITIES: 2+ pulses, extensive b/l erythema with sclaes right worse than left , no edema , +2 Pulse left leg .+1 right leg. NEUROLOGICAL: no focal deficit , move all ext PSYCH: Normal mood, normal affect. SKIN: Warm, dry, Laboratory Results - last 24 hr 07/14/19 07/14/19 06:23 06:23 WBC 7.9 RBC 3.90 Hgb 11.2 Hct 34.3 MCV 88.0 MCH 28.7 MCHC 32.6 RDW 18.7 H Plt Count 144 MPV 8.6 Absolute Neuts (auto) 6.5 Neutrophils % 82.9 H Lymphocytes % 7.6 L D Monocytes % 7.7 Eosinophils % 1.7 Basophils % 0.1 Nucleated RBC % 0 Sodium 142 Potassium 4.0 Chloride 104 Carbon Dioxide 34 H Anion Gap 4 L BUN 18.0 Creatinine 0.3 L Est GFR (CKD-EPI)AfAm 132.57 Est GFR (CKD-EPI)NonAf 114.39 Random Glucose 87 Calcium 8.2 L Total Bilirubin 0.4 AST 10 L ALT 37 Alkaline Phosphatase 85 Total Protein 5.2 L Albumin 2.2 L Active Medications Generic Name Dose Route Start Last Admin Trade Name Freq PRN Reason Stop Dose Admin Acetaminophen 650 mg 07/11/19 10:59 07/14/19 04:53 Tylenol - PO 650 mg Q6H PRN Administration HEADACHE Albuterol/Ipratropium 1 amp 07/14/19 12:30 Duoneb - NEB Q4H PRN SHORTNESS OF BREATH Apixaban 5 mg 07/11/19 10:00 07/14/19 22:18 Eliquis - PO 5 mg BID BELL Administration Ascorbic Acid 1,000 mg 07/11/19 10:00 07/14/19 10:14 Vitamin C - PO 1,000 mg DAILY BELL Administration Cholecalciferol 1,000 unit 07/11/19 10:00 07/14/19 22:18 Vitamin D3 - PO 1,000 unit BID BELL Administration Cyanocobalamin 1,000 mcg 07/11/19 10:00 07/14/19 10:14 Vitamin B12 - PO 1,000 mcg DAILY BE[facility] Administration Diltiazem HCl 360 mg 07/11/19 10:00 07/14/19 10:14 Cardizem Cd - PO 360 mg DAILY BE[facility] Administration Furosemide 40 mg 07/15/19 10:00 Lasix - PO DAILY BELL Gabapentin 400 mg 07/11/19 07:44 07/15/19 06:36 Neurontin - PO 400 mg TID BELL Administration Aztreonam 2 gm/ Dextrose 100 mls @ 100 mls/hr 07/12/19 11:15 07/15/19 01:59 IVPB 100 mls/hr Q8H-IV BE[facility] Administration Protocol Daptomycin 700 mg/ Sodium 50 mls @ 50 mls/hr 07/12/19 13:00 07/14/19 10:45 Chloride IVPB 50 mls/hr DAILY [facility] Administration Protocol Metoprolol Succinate 50 mg 07/11/19 10:45 07/14/19 22:18 Toprol Xl - PO 50 mg BID BELL Administration Nystatin 1 applic 07/11/19 03:00 07/15/19 06:38 Nystop Powder - TP 1 applic TID BELL Administration Oxycodone HCl 5 mg 07/12/19 15:36 07/15/19 06:56 Roxicodone - PO 5 mg Q6H PRN Administration PAIN LEVEL 7 - 10 Prednisone 10 mg 07/17/19 10:00 Deltasone - PO 07/19/19 10:01 DAILY BELL Prednisone 5 mg 07/20/19 10:00 Deltasone - PO 07/22/19 10:01 DAILY BELL Prednisone 15 mg 07/14/19 11:16 Deltasone - PO 07/16/19 10:01 DAILY BELL Ranitidine HCl 150 mg 07/11/19 10:00 07/14/19 22:18 Zantac - PO 150 mg BID BELL Administration Triamcinolone Acetonide 1 applic 07/14/19 22:00 07/14/19 22:19 Aristocort 0.1% Cream - TP 1 applic BID BELL Administration CBC, BMP 07/15/19 08:11 07/15/19 08:11 ASSESSMENT/PLAN: 74 year old female who comes in with fevers and worsening erythema today. She was recently discharged on 06/16 after being treated for cellulites extending from her R foot up to her abdomen and now to left thigh and knee . # Cellulitis R.O CTD : ID on Board cont with IV abx , ( aztreonam. Daptocmycin ) and prednisonetaper taper and zantac , consult dermatology did not recommen dbiopsy . # Thrombocytopenia monitor daily , no active bleeding thus far # Sacral decupitus ulcer : wound care , change position # right renal mass follow renal US # bibasilar atelectasis : incentive spirometry # moderate degenrative disc L3-L4 :follow up out pt # HTN on Deltiazim ,hold metoprolol xl 50 BID , hold enalapril # AFIB on Eliquis 5 BID , Mteoprolol 50 BID # Sleep Apnea , follow up out pt # copd , stable # RA on Hydroxychloroquin hold for now #Osteopenia on Vit D , Vit C and b12 # constipation:cont colace # Back pain on Marielena 400 TID # Chronic venous stasis stable on base line # Dispo to SNF with dermatology out pt. Visit type - Emergency Visit Emergency Visit: Yes ED Registration Date: 07/10/19 Care time: The patient presented to the Emergency Department on the above date and was hospitalized for further evaluation of their emergent condition. - New Patient This patient is new to me today: No - Critical Care Critical Care patient: No - Discharge Referral Referred to [facility] Med P.C.: No ATTENDING PHYSICIAN STATEMENT I saw and evaluated the patient. I reviewed the resident's note and discussed the case with the resident. I agree with the resident's findings and plan as documented. SUBJECTIVE: OBJECTIVE: ASSESSMENT AND PLAN:
[2019-07-15] MEDS ORDERED: FUROSEMIDE 40 MG/4 ML INJECTABLE VIAL IVPUSH ONE ×2 (08:58→12:53)
[2019-07-15 09:11] LABS: BASO % 0.2 % (0-2.0); EOS % 1.6 % (0-4.5); HEMOGLOBIN 13.4 GM/dL (10.7-15.3); MCH 28.2 pg (25.7-33.7); MCHC 31.2 g/dl (32.0-36.0); MEAN CELL VOLUME 90.2 fl (80-96); MEAN PLT VOLUME 8.1 fl (7.5-11.1); MONO % 10.4 % (3.8-10.2); NEUT % 76.8 % (42.8-82.8); PLATELET COUNT 110 K/MM3 (134-434); RBC 4.77 M/mm3 (3.60-5.2); RDW 18.5 % (11.6-15.6); WHITE BLOOD COUNT 6.2 K/mm3 (4.0-10.0)
[2019-07-15 09:28] LABS: BLOOD UREA NITROGEN 17.1 mg/dL (7-18); CALCIUM 8.7 mg/dL (8.5-10.1); CREATININE 0.4 mg/dL (0.55-1.3); MAGNESIUM 2.1 mg/dL (1.8-2.4); PHOSPHOROUS 2.8 mg/dL (2.5-4.9); POTASSIUM 4.2 mmol/L (3.5-5.1)
[2019-07-15] MEDS ORDERED: FUROSEMIDE 40 MG TABLET (FP) PO SCH (10:00)
[2019-07-15] MEDS: ASCORBIC ACID 500 MG TABLET (FP) PO SCH (11:26)
[2019-07-15] MEDS: APIXABAN 5 MG TABLET PO SCH ×2 (11:26→22:03)
[2019-07-15] MEDS: RANITIDINE HCL 150 MG TABLET (FP) PO SCH ×2 (11:26→22:04)
[2019-07-15] MEDS: CHOLECALCIFEROL (VIT D3) 1,000 UNIT (25 MCG) TABLET PO SCH ×2 (11:26→22:04)
[2019-07-15] MEDS: CYANOCOBALAMIN 1,000 MCG TABLET (FP) PO SCH (11:26)
[2019-07-15] MEDS: predniSONE 5 MG TABLET (UD) PO SCH (11:29)
[2019-07-15] MEDS: TRIAMCINOLONE ACET 0.1% CREAM 15 GM TUBE TP SCH ×2 (11:31→22:03)
--- NOTE | 2019-07-15 11:41 | PN ---
Progress Note, Physician History of Present Illness: LETHARGIC NO C/O L LE PAIN TEMPS DOWN AFEBRILE WBC IMPROVED WNL BC (-) TOLERATING ANTIBIOTICS - Current Medication List Current Medications: Active Medications Acetaminophen (Tylenol -) 650 mg PO Q6H PRN PRN Reason: HEADACHE Last Admin: 07/14/19 04:53 Dose: 650 mg Albuterol/Ipratropium (Duoneb -) 1 amp NEB Q4H PRN PRN Reason: SHORTNESS OF BREATH Apixaban (Eliquis -) 5 mg PO BID [facility] Last Admin: 07/15/19 11:26 Dose: 5 mg Ascorbic Acid (Vitamin C -) 1,000 mg PO DAILY [facility] Last Admin: 07/15/19 11:26 Dose: 1,000 mg Cholecalciferol (Vitamin D3 -) 1,000 unit PO BID [facility] Last Admin: 07/15/19 11:26 Dose: 1,000 unit Cyanocobalamin (Vitamin B12 -) 1,000 mcg PO DAILY [facility] Last Admin: 07/15/19 11:26 Dose: 1,000 mcg Diltiazem HCl (Cardizem Cd -) 360 mg PO DAILY [facility] Last Admin: 07/15/19 11:25 Dose: 360 mg Gabapentin (Neurontin -) 400 mg PO TID [facility] Last Admin: 07/15/19 06:36 Dose: 400 mg Aztreonam 2 gm/ Dextrose 100 mls @ 100 mls/hr IVPB Q8H-IV [facility]; Protocol Last Admin: 07/15/19 11:25 Dose: 100 mls/hr Daptomycin 700 mg/ Sodium (Chloride) 50 mls @ 50 mls/hr IVPB DAILY [facility]; Protocol Last Admin: 07/14/19 10:45 Dose: 50 mls/hr Metoprolol Succinate (Toprol Xl -) 50 mg PO BID [facility] Last Admin: 07/15/19 11:25 Dose: 50 mg Nystatin (Nystop Powder -) 1 applic TP TID [facility] Last Admin: 07/15/19 06:38 Dose: 1 applic Oxycodone HCl (Roxicodone -) 5 mg PO Q6H PRN PRN Reason: PAIN LEVEL 7 - 10 Last Admin: 07/15/19 06:56 Dose: 5 mg Prednisone (Deltasone -) 10 mg PO DAILY [facility] Stop: 07/19/19 10:01 Prednisone (Deltasone -) 5 mg PO DAILY [facility] Stop: 07/22/19 10:01 Prednisone (Deltasone -) 15 mg PO DAILY [facility] Stop: 07/16/19 10:01 Last Admin: 07/15/19 11:29 Dose: 15 mg Ranitidine HCl (Zantac -) 150 mg PO BID [facility] Last Admin: 07/15/19 11:26 Dose: 150 mg Triamcinolone Acetonide (Aristocort 0.1% Cream -) 1 applic TP BID [facility] Last Admin: 07/15/19 11:31 Dose: 1 applic - Objective Vital Signs: Vital Signs Temperature 98.2 F 07/15/19 04:00 Pulse Rate 92 H 07/15/19 04:00 Respiratory Rate 20 07/15/19 04:00 Blood Pressure 133/68 07/15/19 04:00 O2 Sat by Pulse Oximetry (%) 99 07/14/19 21:00 Constitutional: Yes: No Distress, Obese Cardiovascular: Yes: Regular Rate and Rhythm, S1, S2 Respiratory: Yes: CTA Bilaterally Gastrointestinal: Yes: Normal Bowel Sounds, Soft, Abdomen, Obese. No: Tenderness Extremities: Yes: Other (erythema L thigh resolved; L LE erythematous, warm) Labs: CBC, BMP 07/15/19 08:11 07/15/19 08:11 INR, PTT INR 1.28 (0.83-1.09) H 07/10/19 20:27 Assessment/Plan RECURRENT LE CELLULITIS IMPROVED MULTIPLE ANTIBIOTIC ALLERGIES CONTINUE DAPTOMYCIN/ AZTREONAM
--- NOTE | 2019-07-15 13:00 | PN ---
Teaching Attending Note Name of Resident: Sky Romero ATTENDING PHYSICIAN STATEMENT I saw and evaluated the patient. I reviewed the resident's note and discussed the case with the resident. I agree with the resident's findings and plan as documented with exceptions below. SUBJECTIVE: Patient seen and examined. some dyspnea. left thigh pain but symptoms improved. No abdominal pain, fevers, chills or concerns otherwise. reports feeling weak OBJECTIVE: Vital Signs Period Temp Pulse Resp BP Sys/William Pulse Ox Last 24 Hr 98.2 F-98.3 F 88-92 20-20 121-133/64-68 99 Intake & Output 07/12/19 07/13/19 07/14/19 07/15/19 23:59 23:59 23:59 23:59 Intake Total 2250 3980 1600 Balance 2250 3980 1600 Weight 279 lb 283 lb 14.4 oz 281 lb 14.4 oz General: morbidly obese in bed, no acute distress Neck: soft, supple HEENT: PERRL, EOMI CVS:S1S2 regular Chest: scattered rales with wheezing, improved exam Abdomen:Soft, morbidly obese abdomen, minimal erythema in right lateral groin region in skin folds (much better from recent admission), no RLQ tenderness noted, minimal erythema right thigh (improved from recent admission), Left thigh erythema vs petechial rash with some clearing and overlying left leg chronic dermatitis symptoms Back: stage I decub ulcer Psych: awake,appropriate Home Medications Medication Instructions Recorded Ascorbate Calcium [Vitamin C] 1,000 mg PO DAILY 08/30/15 Cholecalciferol (Vitamin D3) 1,000 unit PO BID 08/30/15 [Vitamin D3] Cyanocobalamin [Vitamin B12 -] 1,000 mcg PO DAILY 08/30/15 Oxycodone/APAP [Percocet - Must 1 each NR QID PRN 08/30/15 Order Individual Components] Simvastatin 10 mg PO HS 08/30/15 Guaifenesin [Mucinex] 600 mg PO DAILY 06/20/17 Metoprolol Succinate [Toprol XL -] 50 mg PO BID #60 tab.sr 06/25/17 Diltiazem [Cardizem -] 360 mg PO DAILY 08/29/17 Furosemide [Lasix] 40 mg PO DAILY PRN 08/29/17 Apixaban [Eliquis] 5 mg PO BID 04/22/19 Enalapril Maleate [Vasotec -] 2.5 mg PO DAILY 05/14/19 Gabapentin [Neurontin] 400 mg PO TID 05/14/19 Hydroxychloroquine Sulfate 200 mg PO DAILY 05/14/19 Ranitidine HCl [Zantac] 150 mg PO BID 05/14/19 Nystatin Powder [Nystop Powder -] 1 applic TP TID PRN #1 applic 06/16/19 Prednisone See Taper PO ASDIR #110 tablet 06/29/19 Active Medications Acetaminophen (Tylenol -) 650 mg PO Q6H PRN PRN Reason: HEADACHE Last Admin: 07/14/19 04:53 Dose: 650 mg Albuterol/Ipratropium (Duoneb -) 1 amp NEB Q4H PRN PRN Reason: SHORTNESS OF BREATH Apixaban (Eliquis -) 5 mg PO BID [facility] Last Admin: 07/15/19 11:26 Dose: 5 mg Ascorbic Acid (Vitamin C -) 1,000 mg PO DAILY [facility] Last Admin: 07/15/19 11:26 Dose: 1,000 mg Cholecalciferol (Vitamin D3 -) 1,000 unit PO BID [facility] Last Admin: 07/15/19 11:26 Dose: 1,000 unit Cyanocobalamin (Vitamin B12 -) 1,000 mcg PO DAILY [facility] Last Admin: 07/15/19 11:26 Dose: 1,000 mcg Diltiazem HCl (Cardizem Cd -) 360 mg PO DAILY [facility] Last Admin: 07/15/19 11:25 Dose: 360 mg Furosemide (Lasix Injection -) 20 mg IVPUSH ONCE ONE Stop: 07/15/19 12:54 Furosemide (Lasix Injection -) 40 mg IVPUSH DAILY [facility] Gabapentin (Neurontin -) 400 mg PO TID [facility] Last Admin: 07/15/19 06:36 Dose: 400 mg Aztreonam 2 gm/ Dextrose 100 mls @ 100 mls/hr IVPB Q8H-IV [facility]; Protocol Last Admin: 07/15/19 11:25 Dose: 100 mls/hr Daptomycin 700 mg/ Sodium (Chloride) 50 mls @ 50 mls/hr IVPB DAILY [facility]; Protocol Last Admin: 07/14/19 10:45 Dose: 50 mls/hr Metoprolol Succinate (Toprol Xl -) 50 mg PO BID [facility] Last Admin: 07/15/19 11:25 Dose: 50 mg Nystatin (Nystop Powder -) 1 applic TP TID [facility] Last Admin: 07/15/19 06:38 Dose: 1 applic Oxycodone HCl (Roxicodone -) 5 mg PO Q6H PRN PRN Reason: PAIN LEVEL 7 - 10 Last Admin: 07/15/19 06:56 Dose: 5 mg Prednisone (Deltasone -) 10 mg PO DAILY [facility] Stop: 07/19/19 10:01 Prednisone (Deltasone -) 5 mg PO DAILY [facility] Stop: 07/22/19 10:01 Prednisone (Deltasone -) 15 mg PO DAILY [facility] Stop: 07/16/19 10:01 Last Admin: 07/15/19 11:29 Dose: 15 mg Ranitidine HCl (Zantac -) 150 mg PO BID [facility] Last Admin: 07/15/19 11:26 Dose: 150 mg Triamcinolone Acetonide (Aristocort 0.1% Cream -) 1 applic TP BID [facility] Last Admin: 07/15/19 11:31 Dose: 1 applic Laboratory Results - last 24 hr 07/15/19 07/15/19 08:11 08:11 WBC 6.2 RBC 4.77 Hgb 13.4 Hct 43.0 D MCV 90.2 MCH 28.2 MCHC 31.2 L RDW 18.5 H Plt Count 110 L D MPV 8.1 Absolute Neuts (auto) 4.7 Neutrophils % 76.8 Lymphocytes % 11.0 D Monocytes % 10.4 H Eosinophils % 1.6 Basophils % 0.2 Nucleated RBC % 0 Sodium 143 Potassium 4.2 Chloride 102 Carbon Dioxide 32 Anion Gap 8 BUN 17.1 Creatinine 0.4 L Est GFR (CKD-EPI)AfAm 120.60 Est GFR (CKD-EPI)NonAf 104.06 Random Glucose 81 Calcium 8.7 Phosphorus 2.8 Magnesium 2.1 Microbiology 07/10/19 20:35 Blood - Peripheral Venous Blood Culture - Preliminary NO GROWTH OBTAINED AFTER 96 HOURS, INCUBATION TO CONTINUE FOR 1 DAYS. 07/10/19 20:30 Blood - Peripheral Venous Blood Culture - Preliminary NO GROWTH OBTAINED AFTER 96 HOURS, INCUBATION TO CONTINUE FOR 1 DAYS. 07/10/19 22:40 Urine - Urine Clean Catch Urine Culture - Final Contaminated: Please Repeat CXr image and results reviewed ASSESSMENT AND PLAN: 74 yof with PMHx of Afib on eliquis, OA, RA, Sjogren's, COPDo n 4L home oxygen, venous stasis dermatitis, VRE, pseudomonas, recurrent RLE cellulitis when treated with broad spectrum antibiotics and steroids, admitted with sepsis -Sepsis ,? 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 Lancaster, patient seen by her yesterday. Suspects LE findings from [place]ra [place]ma-forme dermatosis from long standing poor hygeine/crusting. 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 No skin biopsy done given concerns for infection/wound healing. Recommends diuresis, leg elevation, triamcinolone ointment with PITER wrap and terminologist placement/Assisted living given poor care and hygeine at home. Does not feel presentation on admission related to skin findings, ?Aspiration. CXR today reviewed, worsening congestion with ?RUL consolidation (new from admission) Patient anasarcic. Will place on lasix 40 mg IV BID, strict I/Os, check 2D echo and cardiology consult Dr. Stevens. Hold enalapril. Metoprolol/cardizem as hemodynamics tolerate. Speech/swallow evaluation. aspiration precautions. Aztreonam/Dapto per ID. Cultures neg so far. leucocytosis/fevers resolved. On prednisone taper from recent admit. Wound care for stage I sacral decubitus ulcer. CT A/P results noted. Renal mass increased in size, renal US results noted. follow up urology recs. No concerns for Appendicitis on repeat CT A/P. Surgery input noted. Hold hydroxychloroquine for now DVTPPX on eliquis Dispo recurrent admissions, poor care at home, refusal for long-term placement. Overall prognosis guarded. Palliative care input to address overall goals of care. Discussed with patient and nursing.
[2019-07-15] MEDS ORDERED: TRIAMCINOLONE ACET 0.1% OINT 15 GM TUBE TP SCH (13:15)
--- NOTE | 2019-07-15 14:32 | CONSULT ---
Admitting History and Physical - Primary Care Physician PCP: Moriah Bran - Admission History of Present Illness: Per EMR- 74 yof with PMHx of Afib on eliquis, OA, RA, Sjogren's, COPDo n 4L home oxygen, venous stasis dermatitis, VRE, pseudomonas, recurrent RLE cellulitis when treated with broad spectrum antibiotics and steroids, admitted with sepsis -Sepsis ,? 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 CXR worsening congestion with ?RUL consolidation This is my first consult with this pt. History Source: Medical Record Limitations to Obtaining History: Clinical Condition (perseverative) - Past Medical History Cardiovascular: Yes: AFIB, HTN, Other (h/o DVT, venous stasis ) Pulmonary: Yes: COPD, Sleep Apnea Hepatobiliary: Yes: Other (fatty liver disease) ...: No Heme/Onc: Yes: Anemia Infectious Disease: Yes: Other (recurrent cellulitis) Musculoskeletal: Yes: Chronic low back pain (/spinal stenosis) Rheumatology: Yes: Rheumatoid Arthritis Endocrine: Yes: Osteopenia, Other (obesity, thyroid nodule) - Past Surgical History Past Surgical History: Yes: Joint Replacement (right knee over 10 years ago) - Smoking History Smoking history: Former smoker Have you smoked in the past 12 months: No Aproximately how many cigarettes per day: 0 If you are a former smoker, when did you quit?: 1984 - Alcohol/Substance Use Hx Alcohol Use: No History of Substance Use: reports: None - Social History ADL: Support Services History of Recent Travel: No History - Admission Reason For Visit: SEPSIS - Diagnostics X-ray: Report Reviewed - General Mental Status: Awake and Alert, Vague, Flat Affect Attention: Mild Impairment, Moderate Impairment Ability to Follow Directions: Fair Head/Neck Control: Fair - Hearing Hearing: Impaired Hearing Aide: Yes With Patient: No Speech Evaluation - Communication Primary Language: SOUTH [place]UDANESE Communication: Yes: Simple Responses (Perseverative "I can see more. I can see more." Perserverating on responses. Able to name but not cosistently. Vague. Stated "Am I having a stroke.") Oral Expression Ability: Yes: Mild Impairment - Speech Production Intelligibility: Yes: WNL - Speech Characteristics Voice Loudness: Normal Voice Pitch: Yes: Normal Voice Phonatory-based Quality: Yes: Normal Speech Pattern: Impaired Nasal Resonance: Normal Articulation: Yes: Precise - Language/Auditory Comprehension Follows: Yes: 1 Stage Simple Commands - Language/Verbal Expression Aphasia: Yes: Anomia Able to Respond to Simple Queries: Yes: Moderately Impaired (Verbally perseverative "I can see more. I can see more." Perserverating on responses. Able to name but not consistently. Vague. Stated "Am I having a stroke." Nurse called in to observe.) - Swallow Evaluation/Bedside Assessment Current Nutritional Intake: Regular, Thin Liquids Oral Secretions: Yes: WFL Facial Symmetry on Retraction: Symmetrical Facial Movement: Controlled Against Resistance Opening: Normal Against Resistance Closing: Normal Pucker Lips: Normal Smile: Normal Lingual Movement: Normal, Symmetric Lingual Speed of Movement: Normal Lingual Movement Strgth Against Opposition: Normal Lingual Movement Characteristics: Normal Velopharyngeal Movement: Normal Laryngeal Elevation: WFL Laryngeal Movement: Able to Palpate Rate of Intake: WFL Bolus Size: WFL Labial Seal: WFL Chewing: WFL Oral Prep Time: WFL A-P Transit: WFL Pocketing: None Timing of Swallow: WFL Coughing/Throat Clear: No Change in Voice: No Recommendations - Speech Evaluation, Impression/Plan Impression: Consulted to assess swallowing function, which seemed grossly intact. No cough or change in vocal quality. Belching. Verbally perseverative "I can see more. I can see more." Perserverating on responses. Able to name but not consistently. Vague. Stated "Am I having a stroke." Seemed confused. Nursing /PMD made aware. PMD felt needed to be diuresed more. To monitor. No assymetry. - Dysphagia Impressions/Plan Swallowing Skills: WFL Dysphagia Impressions: No Impairment *Silent aspiration: cannot be R/O at bedside Dysphagia Treatment Plan: Elevate HOB during feed Recommendations: Other (Pt could not fit into Fluoro unit to r/o silent aspiration but no overt symptoms of aspiration.)
[2019-07-15] MEDS: DAPTOMYCIN 700 MG in SODIUM CHLORIDE 50 ML IVPB SCH (14:36)
--- NOTE | 2019-07-15 15:26 | ECHO ---
Name: DOMO NAVARRO Exam:Adult Echocardiogram Study Date: 07/15/2019 01:39 PM Age: 74 yrs Reason For Study: CHF Height: 67 in Weight: 281 lb BSA: 2.3 m2 MMode/2D Measurements & Calculations IVSd: 0.95 cm Ao root diam: 2.8 cm LVIDd: 5.7 cm LA dimension: 4.4 cm LVIDs: 4.0 cm LVPWd: 0.94 cm EDV(Teich): 161.2 ml LVOT diam: 2.0 cm ESV(Teich): 70.4 ml Doppler Measurements & Calculations MV E max morro: 111.8 cm/sec Ao V2 max: 278.3 cm/sec MV A max morro: 28.1 cm/sec Ao max P.0 mmHg MV E/A: 4.0 Ao V2 mean: 177.8 cm/sec MV dec time: 0.16 sec Ao mean P.4 mmHg Ao V2 VTI: 49.5 cm JOHNSON(I,D): 1.0 cm2 JOHNSON(V,D): 1.2 cm2 LV V1 max P.8 mmHg MR max morro: 432.5 cm/sec LV V1 mean P.1 mmHg MR max P.8 mmHg LV V1 max: 109.2 cm/sec LV V1 mean: 67.5 cm/sec LV V1 VTI: 17.1 cm SV(LVOT): 51.3 ml TR max morro: 249.8 cm/sec TR max P.0 mmHg Med Peak E' Morro: 9.7 cm/sec Med E/e': 11.6 Lat Peak E' Morro: 12.4 cm/sec Lat E/e': 9.0 Procedure A two-dimensional transthoracic echocardiogram with color flow and Doppler was performed. The study w as technically difficult with many images being suboptimal in quality. Left Ventricle The left ventricular size, thickness and function are normal. The left ventricle is not well visualiz ed. The left ventricular ejection fraction is normal. Regional wall motion abnormalities cannot be excluded d ue to limited visualization. Right Ventricle The right ventricle is not well visualized. Atria The left atrium is mildly dilated. The right atrium is mildly dilated. Mitral Valve The mitral valve is not well visualized. There is no mitral valve stenosis. There is trace to mild mi tral regurgitation. Tricuspid Valve The tricuspid valve is not well visualized. There is no tricuspid stenosis. There is trace tricuspid regurgitation. Right ventricular systolic pressure is normal. Aortic Valve The aortic valve is not well visualized. No hemodynamically significant valvular aortic stenosis. No aortic regurgitation is present. Pulmonic Valve The pulmonic valve is not well visualized. Great Vessels The aortic root is normal size. Pericardium/Pleura There is no pericardial effusion. Interpretation Summary The study was technically difficult with many images being suboptimal in quality. The left atrium is mildly dilated. The right atrium is mildly dilated. The left ventricle is not well visualized. Regional wall motion abnormalities cannot be excluded due to limited visualization. There is trace tricuspid regurgitation. Right ventricular systolic pressure is normal. There is trace to mild mitral regurgitation. The left ventricular size, thickness and function are normal The left ventricular ejection fraction is normal. MD Renard Mcclellan 07/15/2019 03:25 PM
[2019-07-15] MEDS: FUROSEMIDE 40 MG/4 ML INJECTABLE VIAL IVPUSH SCH (15:27)
[2019-07-15] MEDS ORDERED: oxyCODONE HCL 5 MG TABLET PO PRN (15:36)
--- NOTE | 2019-07-15 15:48 | CON.CARD ---
Cardiology Consult (text) - Consultation Consultation Note: Chief Complaint: headache History of Present Illness: 74 yo female who came to ER for headache. Found to have sepsis and le cellulitis. No cp sob palps dizzy loc pnd orthopnea. Chronic le edema. PMH: morbid obesity severe DJD/OA HTN HPL GERD - Alcohol/Substance Use Hx Alcohol Use: No - Smoking History Smoking history: Never smoked Have you smoked in the past 12 months: No Aproximately how many cigarettes per day: 0 Home Medications - Allergies Allergies/Adverse Reactions: Allergies Allergy/AdvReac Type Severity Reaction Status Date / Time Penicillins Allergy Severe Swelling Verified 07/10/19 18:59 clindamycin Allergy Mild Rash Verified 07/10/19 18:59 doxycycline Allergy Swelling Verified 07/10/19 18:59 levofloxacin [From Levaquin] Allergy Rash Verified 07/10/19 18:59 vancomycin AdvReac Mild Itching Verified 07/10/19 18:59 adhesive tape AdvReac "RIPS MY Verified 07/10/19 18:59 SKIN" - Home Medications Home Medications Medication Instructions Recorded Ascorbate Calcium [Vitamin C] 1,000 mg PO DAILY 08/30/15 Cholecalciferol (Vitamin D3) 1,000 unit PO BID 08/30/15 [Vitamin D3] Cyanocobalamin [Vitamin B12 -] 1,000 mcg PO DAILY 08/30/15 Oxycodone/APAP [Percocet - Must 1 each NR QID PRN 08/30/15 Order Individual Components] Simvastatin 10 mg PO HS 08/30/15 Guaifenesin [Mucinex] 600 mg PO DAILY 06/20/17 Metoprolol Succinate [Toprol XL -] 50 mg PO BID #60 tab.sr 06/25/17 Diltiazem [Cardizem -] 360 mg PO DAILY 08/29/17 Furosemide [Lasix] 40 mg PO DAILY PRN 08/29/17 Apixaban [Eliquis] 5 mg PO BID 04/22/19 Enalapril Maleate [Vasotec -] 2.5 mg PO DAILY 05/14/19 Gabapentin [Neurontin] 400 mg PO TID 05/14/19 Hydroxychloroquine Sulfate 200 mg PO DAILY 05/14/19 Ranitidine HCl [Zantac] 150 mg PO BID 05/14/19 Nystatin Powder [Nystop Powder -] 1 applic TP TID PRN #1 applic 06/16/19 Prednisone See Taper PO ASDIR #110 tablet 06/29/19 Vital Signs Period Temp Pulse Resp BP Sys/William Pulse Ox Last 24 Hr 98.2 F-98.3 F 88-92 20-20 121-133/64-68 99 no jvd nad cta bl nl eff aao3 irreg s1s2 no mrg abd nt nd pos bs no jaundice diaphoresis pos dp pt no carotid bruits b/l le edema with chronic stasis changes and cellulitis Laboratory Last Values WBC 6.2 K/mm3 (4.0-10.0) 07/15/19 08:11 Corrected WBC (auto) Cancelled 07/10/19 20:30 RBC 4.77 M/mm3 (3.60-5.2) 07/15/19 08:11 Hgb 13.4 GM/dL (10.7-15.3) 07/15/19 08:11 Hct 43.0 % (32.4-45.2) D 07/15/19 08:11 MCV 90.2 fl (80-96) 07/15/19 08:11 MCH 28.2 pg (25.7-33.7) 07/15/19 08:11 MCHC 31.2 g/dl (32.0-36.0) L 07/15/19 08:11 RDW 18.5 % (11.6-15.6) H 07/15/19 08:11 Plt Count 110 K/MM3 (134-434) L D 07/15/19 08:11 MPV 8.1 fl (7.5-11.1) 07/15/19 08:11 Absolute Neuts (auto) 4.7 K/mm3 (1.5-8.0) 07/15/19 08:11 Neutrophils % 76.8 % (42.8-82.8) 07/15/19 08:11 Neutrophils % (Manual) 96.0 % (42.8-82.8) H 07/11/19 11:10 Band Neutrophils % 0.0 % 07/11/19 11:10 Lymphocytes % 11.0 % (8-40) D 07/15/19 08:11 Lymphocytes % (Manual) 3.0 % (8-40) L D 07/11/19 11:10 Monocytes % 10.4 % (3.8-10.2) H 07/15/19 08:11 Monocytes % (Manual) 1 % (3.8-10.2) L 07/11/19 11:10 Eosinophils % 1.6 % (0-4.5) 07/15/19 08:11 Eosinophils % (Manual) 0.0 % (0-4.5) 07/11/19 11:10 Basophils % 0.2 % (0-2.0) 07/15/19 08:11 Basophils % (Manual) 0.0 % (0-2.0) 07/11/19 11:10 Myelocytes % (Man) 0 % (0-2) 07/11/19 11:10 Promyelocytes % (Man) 0 % (0-2) 07/11/19 11:10 Blast Cells % (Manual) 0 % (0-0) 07/11/19 11:10 Nucleated RBC % 0 % (0-0) 07/15/19 08:11 Metamyelocytes 0 % (0-2) 07/11/19 11:10 Hypochromia 0 07/11/19 11:10 Platelet Estimate Decreased 07/11/19 11:10 Platelet Comment Cancelled 07/10/19 20:30 Polychromasia 0 07/11/19 11:10 Poikilocytosis 0 07/11/19 11:10 Basophilic Stippling 1+ 07/11/19 11:10 Anisocytosis 0 07/11/19 11:10 Microcytosis 0 07/11/19 11:10 Macrocytosis 0 07/11/19 11:10 PT with INR 15.20 SEC (9.7-13.0) H 07/10/19 20:27 INR 1.28 (0.83-1.09) H 07/10/19 20:27 PTT (Actin FS) 31.6 SECONDS (25.2-36.5) 07/10/19 20:27 VBG pH 7.36 (7.31-7.41) 07/10/19 21:50 POC VBG pCO2 67.8 mmHg (41-51) H 07/10/19 21:50 POC VBG pO2 < 49 mmHg (30-40) H 07/10/19 21:50 VBG HCO3 36.9 mmol/L (23-29) H 07/10/19 21:50 VBG O2 Sat (Franny) 60.3 % (70-80) L 07/10/19 21:50 VBG Base Excess 9.3 meq/l (-2-2) H 07/10/19 21:50 Sodium 143 mmol/L (136-145) 07/15/19 08:11 Potassium 4.2 mmol/L (3.5-5.1) 07/15/19 08:11 Chloride 102 mmol/L (98-107) 07/15/19 08:11 Carbon Dioxide 32 mmol/L (21-32) 07/15/19 08:11 Anion Gap 8 MMOL/L (8-16) 07/15/19 08:11 BUN 17.1 mg/dL (7-18) 07/15/19 08:11 Creatinine 0.4 mg/dL (0.55-1.3) L 07/15/19 08:11 Est GFR (CKD-EPI)AfAm 120.60 07/15/19 08:11 Est GFR (CKD-EPI)NonAf 104.06 07/15/19 08:11 Random Glucose 81 mg/dL (74-106) 07/15/19 08:11 Lactic Acid 1.4 mmol/L (0.4-2.0) 07/11/19 02:12 Calcium 8.7 mg/dL (8.5-10.1) 07/15/19 08:11 Phosphorus 2.8 mg/dL (2.5-4.9) 07/15/19 08:11 Magnesium 2.1 mg/dL (1.8-2.4) 07/15/19 08:11 Total Bilirubin 0.4 mg/dL (0.2-1) 07/14/19 06:23 AST 10 U/L (15-37) L 07/14/19 06:23 ALT 37 U/L (13-61) 07/14/19 06:23 Alkaline Phosphatase 85 U/L (45-117) 07/14/19 06:23 Creatine Kinase 24 U/L (26-192) L 07/13/19 06:04 Troponin I < 0.02 ng/ml (0.00-0.05) 07/10/19 21:50 Total Protein 5.2 g/dl (6.4-8.2) L 07/14/19 06:23 Albumin 2.2 g/dl (3.4-5.0) L 07/14/19 06:23 Urine Color Dk yellow 07/10/19 22:40 Urine Appearance Clear 07/10/19 22:40 Urine pH 5.5 (5.0-8.0) D 07/10/19 22:40 Ur Specific [place] 1.024 (1.010-1.035) 07/10/19 22:40 Urine Protein Negative (NEGATIVE) 07/10/19 22:40 Urine Glucose (UA) Negative (NEGATIVE) 07/10/19 22:40 Urine Ketones Trace (NEGATIVE) H 07/10/19 22:40 Urine Blood Negative (NEGATIVE) 07/10/19 22:40 Urine Nitrite Negative (NEGATIVE) 07/10/19 22:40 Urine Bilirubin 1+ (NEGATIVE) H 07/10/19 22:40 Urine Urobilinogen 2.0 mg/dL (0.2-1.0) H 07/10/19 22:40 Ur Leukocyte Esterase 1+ (NEGATIVE) H 07/10/19 22:40 Urine WBC (Auto) 6 /hpf (0-5) 07/10/19 22:40 Urine RBC (Auto) 4.4 /hpf (0-4) 07/10/19 22:40 Urine Casts (Auto) 0 /lpf (0-8) 07/10/19 22:40 U Epithel Cells (Auto) 1.1 /HPF (0-5/HPF) 07/10/19 22:40 Urine Bacteria (Auto) 51.6 /hpf (NEGATIVE) 07/10/19 22:40 ecg: afib 117, nl qtc, no ischemic changes cxr: rul consolidation, no sig chf echo 07/2017: tds. nl lv/rv size/fn. tds for rwma. no comment on diastolic function but e/a ratio 4:1. 1+ david. 1+ mr, rvsp nl Assessment/Plan 74 yo with h/o afib on coumadin, htn, hl, morbid obesity, copd, obesity hypoventilation syndrome, severe djd/oa/spinal stenosis, sjogren's, RA, gerd who p/w worsening of her chronic LE cellulitis. HTN: - continue current meds chronic Afib: -cont eliquis -rate control with toprol and dilt HPL: -cont home statin acute on chronic diastolic chf, venous insuff/le edema: -cont iv lasix. daily chem7. cellulitis - mgm't per ID, pmd
[2019-07-15] MEDS: ACETAMINOPHEN 325 MG TABLET (FP) PO PRN (22:04)
[2019-07-16] MEDS: AZTREONAM 2 GM in DEXTROSE 5%-WATER 100 ML IVPB SCH ×3 (02:11→17:38)
[2019-07-16] MEDS: FUROSEMIDE 40 MG/4 ML INJECTABLE VIAL IVPUSH SCH ×2 (05:44→15:50)
[2019-07-16] MEDS: GABAPENTIN 400 MG CAPSULE (FP) PO SCH ×3 (05:44→21:54)
[2019-07-16] MEDS: NYSTATIN POWDER 100,000 UNITS/GM - 15 GM TOPICAL POWDER TP SCH ×3 (05:47→21:55)
[2019-07-16 08:35] LABS: BASO % 0.3 % (0-2.0); EOS % 2.8 % (0-4.5); HEMATOCRIT 37.3 % (32.4-45.2); LYMPH % 15.4 % (8-40); MCH 28.3 pg (25.7-33.7); MCHC 32.1 g/dl (32.0-36.0); MEAN CELL VOLUME 88.3 fl (80-96); MEAN PLT VOLUME 8.1 fl (7.5-11.1); MONO % 9.7 % (3.8-10.2); NEUT % 71.8 % (42.8-82.8); PLATELET COUNT 188 K/MM3 (134-434); RBC 4.22 M/mm3 (3.60-5.2); RDW 18.6 % (11.6-15.6); WHITE BLOOD COUNT 5.8 K/mm3 (4.0-10.0)
[2019-07-16 08:56] LABS: ALBUMIN 2.2 g/dl (3.4-5.0); BILIRUBIN,TOTAL 0.7 mg/dL (0.2-1); CALCIUM 8.6 mg/dL (8.5-10.1); CREATININE 0.4 mg/dL (0.55-1.3); PHOSPHOROUS 2.8 mg/dL (2.5-4.9); POTASSIUM 3.8 mmol/L (3.5-5.1); TOT PROT 5.7 g/dl (6.4-8.2)
[2019-07-16] MEDS ORDERED: FUROSEMIDE 40 MG/4 ML INJECTABLE VIAL IVPUSH SCH (10:00)
--- NOTE | 2019-07-16 10:05 | PN ---
Physical Exam: SUBJECTIVE: Patient seen and examined. She feels fatigued. OBJECTIVE: Vital Signs Period Temp Pulse Resp BP Sys/William Pulse Ox Last 24 Hr 97.2 F-99.8 F 75-94 20-20 113-146/54-74 99 GENERAL: The patient is awake, alert, and fully oriented, in no acute distress. LUNGS: Breath sounds equal, clear to auscultation bilaterally, no wheezes, no crackles, no accessory muscle use. HEART: Irregularly irregular. ABDOMEN: Obese, soft, nontender, nondistended, normoactive bowel sounds, no guarding, no rebound, no hepatosplenomegaly, no masses. EXTREMITIES: 2+ pulses, warm, well-perfused. Erythema of left thigh, bilateral groin/abdominal skin folds and both lower legs. Left lower leg warm. Scaling of both lower legs R>L. Trace edema. Laboratory Results - last 24 hr 07/15/19 07/16/19 07/16/19 08:11 06:20 06:20 WBC 6.2 5.8 RBC 4.77 4.22 Hgb 13.4 12.0 Hct 43.0 D 37.3 MCV 90.2 88.3 MCH 28.2 28.3 MCHC 31.2 L 32.1 RDW 18.5 H 18.6 H Plt Count 110 L D 188 D MPV 8.1 8.1 Absolute Neuts (auto) 4.7 4.2 Neutrophils % 76.8 71.8 Lymphocytes % 11.0 D 15.4 D Monocytes % 10.4 H 9.7 Eosinophils % 1.6 2.8 Basophils % 0.2 0.3 Nucleated RBC % 0 0 Sodium 144 Potassium 3.8 Chloride 96 L Carbon Dioxide 44 H Anion Gap 4 L Creatinine 0.4 L Est GFR (CKD-EPI)AfAm 120.60 Est GFR (CKD-EPI)NonAf 104.06 Calcium 8.6 Phosphorus 2.8 Magnesium 2.0 Total Bilirubin 0.7 AST 9 L ALT 28 Alkaline Phosphatase 101 Total Protein 5.7 L Albumin 2.2 L Active Medications Generic Name Dose Route Start Last Admin Trade Name Freq PRN Reason Stop Dose Admin Acetaminophen 650 mg 07/11/19 10:59 07/15/19 22:04 Tylenol - PO 650 mg Q6H PRN Administration HEADACHE Albuterol/Ipratropium 1 amp 07/14/19 12:30 Duoneb - NEB Q4H PRN SHORTNESS OF BREATH Apixaban 5 mg 07/11/19 10:00 07/15/19 22:03 Eliquis - PO 5 mg BID BELL Administration Ascorbic Acid 1,000 mg 07/11/19 10:00 07/15/19 11:26 Vitamin C - PO 1,000 mg DAILY BELL Administration Cholecalciferol 1,000 unit 07/11/19 10:00 07/15/19 22:04 Vitamin D3 - PO 1,000 unit BID BELL Administration Cyanocobalamin 1,000 mcg 07/11/19 10:00 07/15/19 11:26 Vitamin B12 - PO 1,000 mcg DAILY BELL Administration Diltiazem HCl 360 mg 07/11/19 10:00 07/15/19 11:25 Cardizem Cd - PO 360 mg DAILY BELL Administration Furosemide 40 mg 07/15/19 14:00 07/16/19 05:44 Lasix Injection - IVPUSH 40 mg BID@0600,1400 BELL Administration Gabapentin 400 mg 07/11/19 07:44 07/16/19 05:44 Neurontin - PO 400 mg TID BELL Administration Aztreonam 2 gm/ Dextrose 100 mls @ 100 mls/hr 07/12/19 11:15 07/16/19 02:11 IVPB 100 mls/hr Q8H-IV BELL Administration Protocol Daptomycin 700 mg/ Sodium 50 mls @ 50 mls/hr 07/12/19 13:00 07/15/19 14:36 Chloride IVPB 50 mls/hr DAILY BELL Administration Protocol Metoprolol Succinate 50 mg 07/11/19 10:45 07/15/19 22:04 Toprol Xl - PO 50 mg BID BELL Administration Nystatin 1 applic 07/11/19 03:00 07/16/19 05:47 Nystop Powder - TP 1 applic TID BELL Administration Oxycodone HCl 5 mg 07/15/19 15:36 Roxicodone - PO Q6H PRN PAIN LEVEL 7 - 10 Prednisone 10 mg 07/17/19 10:00 Deltasone - PO 07/19/19 10:01 DAILY BELL Prednisone 5 mg 07/20/19 10:00 Deltasone - PO 07/22/19 10:01 DAILY BELL Ranitidine HCl 150 mg 07/11/19 10:00 07/15/19 22:04 Zantac - PO 150 mg BID BELL Administration Triamcinolone Acetonide 1 applic 07/14/19 22:00 07/15/19 22:03 Aristocort 0.1% Cream - TP 1 applic BID BELL Administration ASSESSMENT/PLAN: This is a 74 year old woman with a history of atrial fib, OA, RA, Sjogren syndrome, chronic hypoxic respiratory failure, COPD, venous stasis dermatitis, recurrent RLE cellulitis who presented to the ED with a headache. 1. Sepsis secondary to BLE cellulitis - Continue Aztreonam, Daptomycin 2. Acute on chronic diastolic heart failure - Patient reports some improvement in edema - Continue Lasix IV 3. Terra firma-forme dermatosis of legs - Continue topical triamcinolone cream, PITER wraps, leg elevation 4. Cutaneous candidiasis of abdominal skin folds and groin - Continue topical Nystatin powder 5. Stage I pressure ulcer of sacrum - Continue wound care 6. Hyperkalemia - Improved 7. Left renal pole mass 8. Rheumatoid arthritis/Sjogren syndrome - Plaquenil on hold 9. Osteoarthritis 10. Chronic hypoxic respiratory failure secondary to COPD - Continue prednisone taper 11. Atrial fib - Continue Toprol XL, Cardizem, Eliquis
[2019-07-16 10:11] LABS: BLOOD UREA NITROGEN 20.3 mg/dL (7-18)
[2019-07-16] MEDS: DAPTOMYCIN 700 MG in SODIUM CHLORIDE 50 ML IVPB SCH (11:38)
[2019-07-16] MEDS: predniSONE 5 MG TABLET (UD) PO SCH (11:42)
[2019-07-16] MEDS: ASCORBIC ACID 500 MG TABLET (FP) PO SCH (11:43)
[2019-07-16] MEDS: APIXABAN 5 MG TABLET PO SCH ×2 (11:43→21:53)
[2019-07-16] MEDS: RANITIDINE HCL 150 MG TABLET (FP) PO SCH ×2 (11:43→21:54)
[2019-07-16] MEDS: CHOLECALCIFEROL (VIT D3) 1,000 UNIT (25 MCG) TABLET PO SCH ×2 (11:44→21:54)
[2019-07-16] MEDS: CYANOCOBALAMIN 1,000 MCG TABLET (FP) PO SCH (11:44)
[2019-07-16] MEDS: TRIAMCINOLONE ACET 0.1% CREAM 15 GM TUBE TP SCH ×2 (11:50→21:53)
--- NOTE | 2019-07-16 12:47 | PN ---
Progress Note, [employer] - Note Progress Note: Selected Entries 07/15/19 07/15/19 07/15/19 04:00 10:00 14:00 Lunch 75% Supper Temperature 98.2 F 98.3 F 07/15/19 07/15/19 07/15/19 18:41 19:19 22:00 Lunch Supper 100% Temperature 99.8 F H 97.4 F L 07/16/19 05:54 Lunch Supper Temperature 97.2 F L Laboratory Tests 07/16/19 06:20 WBC 5.8 Pt much improved as compared to yesterday. Good eye contact, readily responsive. Speech is fluent and appropriate with good turn taking, naming, repetition. No perseveration. Much different than yesterday. Pt given Lasix. Swallowing overtly intact.
--- NOTE | 2019-07-16 15:42 | PN ---
Progress Note (short form) - Note Progress Note: s: no chest pain, palps, dizziness, dyspnea Vital Signs Period Temp Pulse Resp BP Sys/William Pulse Ox Last 24 Hr 97.2 F-99.8 F 75-94 18-20 113-144/54-80 99 no jvd nad cta bl nl eff aao3 irreg s1s2 no mrg abd nt nd pos bs no jaundice diaphoresis pos dp pt no carotid bruits b/l le edema with chronic stasis changes and cellulitis ecg: afib 117, nl qtc, no ischemic changes cxr: rul consolidation, no sig chf echo 07/2017: tds. nl lv/rv size/fn. tds for rwma. no comment on diastolic function but e/a ratio 4:1. 1+ david. 1+ mr, rvsp nl Assessment/Plan 74 yo with h/o afib on coumadin, htn, hl, morbid obesity, copd, obesity hypoventilation syndrome, severe djd/oa/spinal stenosis, sjogren's, RA, gerd who p/w worsening of her chronic LE cellulitis. HTN: - continue current meds chronic Afib: -cont eliquis -rate control with toprol and dilt HPL: -cont home statin acute on chronic diastolic chf, venous insuff/le edema: -edema improving, Cr stable. cont iv lasix. daily chem7. cellulitis - mgm't per ID, pmd
[2019-07-16] MEDS ORDERED: PT OWN MED DRAWER 7, Y5N ONE (17:23)
[2019-07-17] MEDS ORDERED: PT OWN MED DRAWER 7, Y5N ONE ×4 (00:58→17:58)
[2019-07-17] MEDS: AZTREONAM 2 GM in DEXTROSE 5%-WATER 100 ML IVPB SCH ×3 (01:19→18:30)
[2019-07-17] MEDS: NYSTATIN POWDER 100,000 UNITS/GM - 15 GM TOPICAL POWDER TP SCH ×3 (06:33→22:52)
[2019-07-17] MEDS: FUROSEMIDE 40 MG/4 ML INJECTABLE VIAL IVPUSH SCH ×2 (06:33→14:43)
[2019-07-17] MEDS: GABAPENTIN 400 MG CAPSULE (FP) PO SCH ×3 (06:33→22:06)
[2019-07-17 10:15] LABS: ANION GAP 8 MMOL/L (8-16); BLOOD UREA NITROGEN 16.2 mg/dL (7-18); CALCIUM 8.4 mg/dL (8.5-10.1); CHLORIDE 90 mmol/L (98-107); CO2 > 45 mmol/L (21-32); CREATININE 0.3 mg/dL (0.55-1.3); GLUCOSE,RANDOM 75 mg/dL (74-106); MAGNESIUM 1.8 mg/dL (1.8-2.4); POTASSIUM 3.6 mmol/L (3.5-5.1); SODIUM 144 mmol/L (136-145)
--- NOTE | 2019-07-17 12:52 | PN ---
Progress Note, Physician History of Present Illness: AWAKE, ALERT C/O L LE PAIN TEMPS DOWN AFEBRILE WBC IMPROVED WNL BC (-) TOLERATING ANTIBIOTICS - Current Medication List Current Medications: Active Medications Acetaminophen (Tylenol -) 650 mg PO Q6H PRN PRN Reason: HEADACHE Last Admin: 07/15/19 22:04 Dose: 650 mg Albuterol/Ipratropium (Duoneb -) 1 amp NEB Q4H PRN PRN Reason: SHORTNESS OF BREATH Apixaban (Eliquis -) 5 mg PO BID [facility] Last Admin: 07/16/19 21:53 Dose: 5 mg Ascorbic Acid (Vitamin C -) 1,000 mg PO DAILY [facility] Last Admin: 07/16/19 11:43 Dose: 1,000 mg Cholecalciferol (Vitamin D3 -) 1,000 unit PO BID [facility] Last Admin: 07/16/19 21:54 Dose: 1,000 unit Cyanocobalamin (Vitamin B12 -) 1,000 mcg PO DAILY [facility] Last Admin: 07/16/19 11:44 Dose: 1,000 mcg Diltiazem HCl (Cardizem Cd -) 360 mg PO DAILY [facility] Last Admin: 07/16/19 11:43 Dose: 360 mg Furosemide (Lasix Injection -) 40 mg IVPUSH BID@0600,1400 [facility] Last Admin: 07/17/19 06:33 Dose: 40 mg Gabapentin (Neurontin -) 400 mg PO TID [facility] Last Admin: 07/17/19 06:33 Dose: 400 mg Aztreonam 2 gm/ Dextrose 100 mls @ 100 mls/hr IVPB Q8H-IV [facility]; Protocol Last Admin: 07/17/19 01:19 Dose: 100 mls/hr Daptomycin 700 mg/ Sodium (Chloride) 50 mls @ 50 mls/hr IVPB DAILY [facility]; Protocol Last Admin: 07/16/19 11:38 Dose: 50 mls/hr Metoprolol Succinate (Toprol Xl -) 50 mg PO BID [facility] Last Admin: 07/16/19 21:53 Dose: 50 mg Nystatin (Nystop Powder -) 1 applic TP TID [facility] Last Admin: 07/17/19 06:33 Dose: 1 applic Oxycodone HCl (Roxicodone -) 5 mg PO Q6H PRN PRN Reason: PAIN LEVEL 7 - 10 Prednisone (Deltasone -) 10 mg PO DAILY [facility] Stop: 07/19/19 10:01 Prednisone (Deltasone -) 5 mg PO DAILY [facility] Stop: 07/22/19 10:01 Ranitidine HCl (Zantac -) 150 mg PO BID [facility] Last Admin: 07/16/19 21:54 Dose: 150 mg Triamcinolone Acetonide (Aristocort 0.1% Cream -) 1 applic TP BID [facility] Last Admin: 07/16/19 21:53 Dose: 1 applic - Objective Vital Signs: Vital Signs Temperature 97.9 F 07/17/19 07:00 Pulse Rate 82 07/17/19 07:00 Respiratory Rate 18 07/17/19 07:00 Blood Pressure 124/68 07/17/19 07:00 O2 Sat by Pulse Oximetry (%) 100 07/16/19 21:00 Constitutional: Yes: No Distress, Obese Cardiovascular: Yes: Regular Rate and Rhythm, S1, S2 Respiratory: Yes: CTA Bilaterally Gastrointestinal: Yes: Normal Bowel Sounds, Soft, Abdomen, Obese. No: Tenderness Extremities: Yes: Other (+ PERSISTANT ERYTHEMA/ WARMTH L LE) Labs: CBC, BMP 07/16/19 06:20 07/17/19 08:22 INR, PTT INR 1.28 (0.83-1.09) H 07/10/19 20:27 Assessment/Plan RECURRENT LE CELLULITIS MULTIPLE ANTIBIOTIC ALLERGIES CONTINUE DAPTOMYCIN/ AZTREONAM
[2019-07-17 13:02] VITALS: BMI 43.2
[2019-07-17] MEDS: DAPTOMYCIN 700 MG in SODIUM CHLORIDE 50 ML IVPB SCH (13:10)
[2019-07-17] MEDS: APIXABAN 5 MG TABLET PO SCH ×2 (13:12→22:06)
[2019-07-17] MEDS: ASCORBIC ACID 500 MG TABLET (FP) PO SCH (13:12)
[2019-07-17] MEDS: CYANOCOBALAMIN 1,000 MCG TABLET (FP) PO SCH (13:12)
[2019-07-17] MEDS: CHOLECALCIFEROL (VIT D3) 1,000 UNIT (25 MCG) TABLET PO SCH ×2 (13:12→22:06)
[2019-07-17] MEDS: TRIAMCINOLONE ACET 0.1% CREAM 15 GM TUBE TP SCH ×2 (13:14→22:52)
[2019-07-17] MEDS: ACETAMINOPHEN 325 MG TABLET (FP) PO PRN (13:15)
[2019-07-17] MEDS: RANITIDINE HCL 150 MG TABLET (FP) PO SCH ×2 (14:43→22:06)
[2019-07-17] MEDS: predniSONE 10 MG TABLET (UD) PO SCH (14:45)
--- NOTE | 2019-07-17 15:48 | PN ---
Progress Note (short form) - Note Progress Note: s: no chest pain, palps, dizziness, dyspnea Current Medications Acetaminophen (Tylenol -) 650 mg PO Q6H PRN PRN Reason: HEADACHE Last Admin: 07/17/19 13:15 Dose: 650 mg Albuterol/Ipratropium (Duoneb -) 1 amp NEB Q4H PRN PRN Reason: SHORTNESS OF BREATH Apixaban (Eliquis -) 5 mg PO BID [facility] Last Admin: 07/17/19 13:12 Dose: 5 mg Ascorbic Acid (Vitamin C -) 1,000 mg PO DAILY [facility] Last Admin: 07/17/19 13:12 Dose: 1,000 mg Cholecalciferol (Vitamin D3 -) 1,000 unit PO BID [facility] Last Admin: 07/17/19 13:12 Dose: 1,000 unit Cyanocobalamin (Vitamin B12 -) 1,000 mcg PO DAILY [facility] Last Admin: 07/17/19 13:12 Dose: 1,000 mcg Diltiazem HCl (Cardizem Cd -) 360 mg PO DAILY [facility] Last Admin: 07/17/19 13:12 Dose: 360 mg Furosemide (Lasix Injection -) 40 mg IVPUSH BID@0600,1400 [facility] Last Admin: 07/17/19 14:43 Dose: 40 mg Gabapentin (Neurontin -) 400 mg PO TID [facility] Last Admin: 07/17/19 14:43 Dose: 400 mg Aztreonam 2 gm/ Dextrose 100 mls @ 100 mls/hr IVPB Q8H-IV [facility]; Protocol Last Admin: 07/17/19 13:10 Dose: 100 mls/hr Daptomycin 700 mg/ Sodium (Chloride) 50 mls @ 50 mls/hr IVPB DAILY [facility]; Protocol Last Admin: 07/17/19 13:10 Dose: 50 mls/hr Metoprolol Succinate (Toprol Xl -) 50 mg PO BID [facility] Last Admin: 07/17/19 13:12 Dose: 50 mg Nystatin (Nystop Powder -) 1 applic TP TID [facility] Last Admin: 07/17/19 14:45 Dose: 1 applic Oxycodone HCl (Roxicodone -) 5 mg PO Q6H PRN PRN Reason: PAIN LEVEL 7 - 10 Prednisone (Deltasone -) 10 mg PO DAILY [facility] Stop: 07/19/19 10:01 Last Admin: 07/17/19 14:45 Dose: 10 mg Prednisone (Deltasone -) 5 mg PO DAILY [facility] Stop: 07/22/19 10:01 Ranitidine HCl (Zantac -) 150 mg PO BID [facility] Last Admin: 07/17/19 14:43 Dose: 150 mg Triamcinolone Acetonide (Aristocort 0.1% Cream -) 1 applic TP BID [facility] Last Admin: 07/17/19 13:14 Dose: 1 applic Vital Signs Period Temp Pulse Resp BP Sys/William Pulse Ox Last 24 Hr 97.9 F-98.2 F 80-89 18-20 110-132/57-72 100 no jvd nad cta bl nl eff aao3 irreg s1s2 no mrg abd nt nd pos bs no jaundice diaphoresis pos dp pt no carotid bruits b/l le edema with chronic stasis changes and cellulitis ecg: afib 117, nl qtc, no ischemic changes cxr: rul consolidation, no sig chf echo 07/2017: tds. nl lv/rv size/fn. tds for rwma. no comment on diastolic function but e/a ratio 4:1. 1+ david. 1+ mr, rvsp nl Assessment/Plan 74 yo with h/o afib on coumadin, htn, hl, morbid obesity, copd, obesity hypoventilation syndrome, severe djd/oa/spinal stenosis, sjogren's, RA, gerd who p/w worsening of her chronic LE cellulitis. HTN: - continue current meds chronic Afib: -cont eliquis -rate control with toprol and dilt HPL: -cont home statin acute on chronic diastolic chf, venous insuff/le edema: -edema improving, Cr stable. cont iv lasix for now. daily chem7. cellulitis - mgm't per ID, pmd
--- NOTE | 2019-07-17 16:06 | PN ---
Physical Exam: SUBJECTIVE: Patient seen and examined. No complaints. OBJECTIVE: Vital Signs Period Temp Pulse Resp BP Sys/William Pulse Ox Last 24 Hr 97.9 F-98.2 F 80-89 18-20 110-132/57-72 100 GENERAL: The patient is awake, alert, and fully oriented, in no acute distress. LUNGS: Breath sounds equal, clear to auscultation bilaterally, no wheezes, no crackles, no accessory muscle use. HEART: Irregularly irregular. ABDOMEN: Obese, soft, nontender, nondistended, normoactive bowel sounds, no guarding, no rebound, no hepatosplenomegaly, no masses. EXTREMITIES: 2+ pulses, warm, well-perfused. Lower legs wrapped. Decreased erythema left thigh. Erythema in lower abdominal skin folds and bilateral groin Laboratory Results - last 24 hr 07/17/19 08:22 Sodium 144 Potassium 3.6 Chloride 90 L Carbon Dioxide > 45 H Anion Gap 8 BUN 16.2 Creatinine 0.3 L Est GFR (CKD-EPI)AfAm 132.57 Est GFR (CKD-EPI)NonAf 114.39 Random Glucose 75 Calcium 8.4 L Magnesium 1.8 Active Medications Generic Name Dose Route Start Last Admin Trade Name Freq PRN Reason Stop Dose Admin Acetaminophen 650 mg 07/11/19 10:59 07/17/19 13:15 Tylenol - PO 650 mg Q6H PRN Administration HEADACHE Albuterol/Ipratropium 1 amp 07/14/19 12:30 Duoneb - NEB Q4H PRN SHORTNESS OF BREATH Apixaban 5 mg 07/11/19 10:00 07/17/19 13:12 Eliquis - PO 5 mg BID BELL Administration Ascorbic Acid 1,000 mg 07/11/19 10:00 07/17/19 13:12 Vitamin C - PO 1,000 mg DAILY BE[facility] Administration Cholecalciferol 1,000 unit 07/11/19 10:00 07/17/19 13:12 Vitamin D3 - PO 1,000 unit BID BELL Administration Cyanocobalamin 1,000 mcg 07/11/19 10:00 07/17/19 13:12 Vitamin B12 - PO 1,000 mcg DAILY [facility] Administration Diltiazem HCl 360 mg 07/11/19 10:00 07/17/19 13:12 Cardizem Cd - PO 360 mg DAILY [facility] Administration Furosemide 40 mg 07/15/19 14:00 07/17/19 14:43 Lasix Injection - IVPUSH 40 mg BID@0600,1400 BE[facility] Administration Gabapentin 400 mg 07/11/19 07:44 07/17/19 14:43 Neurontin - PO 400 mg TID BE[facility] Administration Aztreonam 2 gm/ Dextrose 100 mls @ 100 mls/hr 07/12/19 11:15 07/17/19 13:10 IVPB 100 mls/hr Q8H-IV [facility] Administration Protocol Daptomycin 700 mg/ Sodium 50 mls @ 50 mls/hr 07/12/19 13:00 07/17/19 13:10 Chloride IVPB 50 mls/hr DAILY [facility] Administration Protocol Metoprolol Succinate 50 mg 07/11/19 10:45 07/17/19 13:12 Toprol Xl - PO 50 mg BID BELL Administration Nystatin 1 applic 07/11/19 03:00 07/17/19 14:45 Nystop Powder - TP 1 applic TID BELL Administration Oxycodone HCl 5 mg 07/15/19 15:36 Roxicodone - PO Q6H PRN PAIN LEVEL 7 - 10 Prednisone 10 mg 07/17/19 10:00 07/17/19 14:45 Deltasone - PO 07/19/19 10:01 10 mg DAILY [facility] Administration Prednisone 5 mg 07/20/19 10:00 Deltasone - PO 07/22/19 10:01 DAILY BELL Ranitidine HCl 150 mg 07/11/19 10:00 07/17/19 14:43 Zantac - PO 150 mg BID BELL Administration Triamcinolone Acetonide 1 applic 07/14/19 22:00 07/17/19 13:14 Aristocort 0.1% Cream - TP 1 applic BID BE[facility] Administration ASSESSMENT/PLAN: This is a 74 year old woman with a history of atrial fib, OA, RA, Sjogren syndrome, chronic hypoxic respiratory failure, COPD, venous stasis dermatitis, recurrent RLE cellulitis who presented to the ED with a headache. 1. Sepsis secondary to BLE cellulitis - Improving - Continue Aztreonam, Daptomycin 2. Acute on chronic diastolic heart failure - Improving - Continue Lasix IV 3. Terra firma-forme dermatosis of legs - Continue topical triamcinolone cream, PITER wraps, leg elevation 4. Cutaneous candidiasis of abdominal skin folds and groin - Continue topical Nystatin powder 5. Stage I pressure ulcer of sacrum - Continue wound care 6. Hyperkalemia - Improved 7. Left renal pole mass 8. Rheumatoid arthritis/Sjogren syndrome - Plaquenil on hold 9. Osteoarthritis 10. Chronic hypoxic respiratory failure secondary to COPD - Continue prednisone taper 11. Atrial fib - Continue Toprol XL, Cardizem, Eliquis 12. Morbid obesity
[2019-07-18] MEDS ORDERED: PT OWN MED DRAWER 7, Y5N ONE ×4 (01:15→18:01)
[2019-07-18] MEDS: AZTREONAM 2 GM in DEXTROSE 5%-WATER 100 ML IVPB SCH ×3 (01:19→18:44)
[2019-07-18] MEDS: NYSTATIN POWDER 100,000 UNITS/GM - 15 GM TOPICAL POWDER TP SCH ×3 (06:54→22:50)
[2019-07-18] MEDS: GABAPENTIN 400 MG CAPSULE (FP) PO SCH ×3 (06:54→22:49)
[2019-07-18] MEDS: FUROSEMIDE 40 MG/4 ML INJECTABLE VIAL IVPUSH SCH ×2 (06:54→15:00)
[2019-07-18 07:29] LABS: HEMATOCRIT 37.8 % (32.4-45.2); HEMOGLOBIN 12.4 GM/dL (10.7-15.3); MCH 28.7 pg (25.7-33.7); MCHC 32.7 g/dl (32.0-36.0); MEAN CELL VOLUME 87.9 fl (80-96); MEAN PLT VOLUME 7.3 fl (7.5-11.1); PLATELET COUNT 261 K/MM3 (134-434); RBC 4.31 M/mm3 (3.60-5.2); RDW 17.6 % (11.6-15.6); WHITE BLOOD COUNT 5.2 K/mm3 (4.0-10.0)
[2019-07-18 07:33] LABS: ANION GAP 5 MMOL/L (8-16); BLOOD UREA NITROGEN 15.5 mg/dL (7-18); CHLORIDE 93 mmol/L (98-107); CO2 > 45 mmol/L (21-32); CREATININE 0.3 mg/dL (0.55-1.3); GLUCOSE,RANDOM 81 mg/dL (74-106); MAGNESIUM 1.8 mg/dL (1.8-2.4); SODIUM 143 mmol/L (136-145)
[2019-07-18] MEDS: AMINO ACIDS/PROTEIN HYDROLYS 30 ML LIQUID.PKT PO SCH (10:45)
[2019-07-18] MEDS: DAPTOMYCIN 700 MG in SODIUM CHLORIDE 50 ML IVPB SCH (10:45)
[2019-07-18] MEDS: CHOLECALCIFEROL (VIT D3) 1,000 UNIT (25 MCG) TABLET PO SCH ×2 (10:46→22:49)
[2019-07-18] MEDS: ACETAMINOPHEN 325 MG TABLET (FP) PO PRN (10:46)
[2019-07-18] MEDS: ASCORBIC ACID 500 MG TABLET (FP) PO SCH (10:47)
[2019-07-18] MEDS: CYANOCOBALAMIN 1,000 MCG TABLET (FP) PO SCH (10:47)
[2019-07-18] MEDS: APIXABAN 5 MG TABLET PO SCH ×2 (10:47→22:49)
[2019-07-18] MEDS: MULTIVITAMINS (DAILY MVI) TABLET (FP) PO SCH (10:47)
[2019-07-18] MEDS: RANITIDINE HCL 150 MG TABLET (FP) PO SCH ×2 (10:48→22:49)
[2019-07-18] MEDS ORDERED: predniSONE 5 MG TABLET (UD) PO SCH (10:51)
[2019-07-18] MEDS: predniSONE 10 MG TABLET (UD) PO SCH (10:55)
[2019-07-18] MEDS: TRIAMCINOLONE ACET 0.1% CREAM 15 GM TUBE TP SCH ×2 (10:55→22:49)
--- NOTE | 2019-07-18 17:24 | PN ---
Physical Exam: SUBJECTIVE: Patient seen and examined. She has no complaints. She wants to go home. OBJECTIVE: Vital Signs Period Temp Pulse Resp BP Sys/William Pulse Ox Last 24 Hr 97.8 F-98.4 F 60-90 18-20 105-136/54-65 99 GENERAL: The patient is awake, alert, and fully oriented, in no acute distress. LUNGS: Breath sounds equal, clear to auscultation bilaterally, no wheezes, no crackles, no accessory muscle use. HEART: Irregularly irregular. ABDOMEN: Obese, soft, nontender, nondistended, normoactive bowel sounds, no guarding, no rebound, no hepatosplenomegaly, no masses. EXTREMITIES: 2+ pulses, warm, well-perfused. Lower legs wrapped. Decreased erythema left thigh. Erythema in lower abdominal skin folds and bilateral groin Laboratory Results - last 24 hr 07/18/19 07/18/19 06:00 06:00 WBC 5.2 RBC 4.31 Hgb 12.4 Hct 37.8 MCV 87.9 MCH 28.7 MCHC 32.7 RDW 17.6 H Plt Count 261 D MPV 7.3 L Sodium 143 Potassium 4.0 Chloride 93 L Carbon Dioxide > 45 H Anion Gap 5 L BUN 15.5 Creatinine 0.3 L Est GFR (CKD-EPI)AfAm 132.57 Est GFR (CKD-EPI)NonAf 114.39 Random Glucose 81 Calcium 9.0 Magnesium 1.8 Active Medications Generic Name Dose Route Start Last Admin Trade Name Freq PRN Reason Stop Dose Admin Acetaminophen 650 mg 07/11/19 10:59 07/18/19 10:46 Tylenol - PO 650 mg Q6H PRN Administration HEADACHE Albuterol/Ipratropium 1 amp 07/14/19 12:30 Duoneb - NEB Q4H PRN SHORTNESS OF BREATH Amino Acids 30 ml 07/18/19 08:00 07/18/19 10:45 Prosource No Carb Liquid Pkt PO 30 ml DAILY@0800 BE[facility] Administration Apixaban 5 mg 07/11/19 10:00 07/18/19 10:47 Eliquis - PO 5 mg BID BELL Administration Ascorbic Acid 1,000 mg 07/11/19 10:00 07/18/19 10:47 Vitamin C - PO 1,000 mg DAILY [facility] Administration Cholecalciferol 1,000 unit 07/11/19 10:00 07/18/19 10:46 Vitamin D3 - PO 1,000 unit BID BELL Administration Cyanocobalamin 1,000 mcg 07/11/19 10:00 07/18/19 10:47 Vitamin B12 - PO 1,000 mcg DAILY [facility] Administration Diltiazem HCl 360 mg 07/11/19 10:00 07/18/19 10:47 Cardizem Cd - PO 360 mg DAILY [facility] Administration Furosemide 40 mg 07/15/19 14:00 07/18/19 15:00 Lasix Injection - IVPUSH 40 mg BID@0600,1400 [facility] Administration Gabapentin 400 mg 07/11/19 07:44 07/18/19 15:00 Neurontin - PO 400 mg TID BE[facility] Administration Aztreonam 2 gm/ Dextrose 100 mls @ 100 mls/hr 07/12/19 11:15 07/18/19 10:45 IVPB 100 mls/hr Q8H-IV [facility] Administration Protocol Daptomycin 700 mg/ Sodium 50 mls @ 50 mls/hr 07/12/19 13:00 07/18/19 10:45 Chloride IVPB 50 mls/hr DAILY [facility] Administration Protocol Metoprolol Succinate 50 mg 07/11/19 10:45 07/18/19 10:47 Toprol Xl - PO 50 mg BID BE[facility] Administration Multivitamins/Minerals/Vitamin C 1 tab 07/18/19 10:00 07/18/19 10:47 Tab-A-Vit - PO 1 tab DAILY [facility] Administration Nystatin 1 applic 07/11/19 03:00 07/18/19 15:00 Nystop Powder - TP 1 applic TID [facility] Administration Prednisone 5 mg 07/20/19 10:00 Deltasone - PO 07/22/19 10:01 DAILY BELL Prednisone 10 mg 07/18/19 10:51 Deltasone - PO 07/19/19 10:01 DAILY [facility] Ranitidine HCl 150 mg 07/11/19 10:00 07/18/19 10:48 Zantac - PO 150 mg BID [facility] Administration Triamcinolone Acetonide 1 applic 07/14/19 22:00 07/18/19 10:55 Aristocort 0.1% Cream - TP 1 applic BID [facility] Administration ASSESSMENT/PLAN: This is a 74 year old woman with a history of atrial fib, OA, RA, Sjogren syndrome, chronic hypoxic respiratory failure, COPD, venous stasis dermatitis, recurrent RLE cellulitis who presented to the ED with a headache. 1. Sepsis secondary to BLE cellulitis - Improving - Continue Aztreonam, Daptomycin 2. Acute on chronic diastolic heart failure - Improving - Continue Lasix IV 3. Terra firma-forme dermatosis of legs - Continue topical triamcinolone cream, PITER wraps, leg elevation 4. Cutaneous candidiasis of abdominal skin folds and groin - Continue topical Nystatin powder 5. Stage I pressure ulcer of sacrum - Continue wound care 6. Hyperkalemia - Improved 7. Left renal pole mass - Urology follow-up 8. Rheumatoid arthritis/Sjogren syndrome - Plaquenil on hold 9. Osteoarthritis 10. Chronic hypoxic respiratory failure secondary to COPD - Continue prednisone taper 11. Atrial fibrillation, permanent - Continue Toprol XL, Cardizem, Eliquis 12. Morbid obesity with BMI 43.2 13. Disposition - Plan for discharge home with home care services once IV antibiotics and IV Lasix complete
[2019-07-19] MEDS ORDERED: PT OWN MED DRAWER 7, Y5N ONE ×3 (01:07→17:12)
[2019-07-19] MEDS: AZTREONAM 2 GM in DEXTROSE 5%-WATER 100 ML IVPB SCH ×3 (01:42→17:50)
[2019-07-19] MEDS: NYSTATIN POWDER 100,000 UNITS/GM - 15 GM TOPICAL POWDER TP SCH ×3 (06:11→22:03)
[2019-07-19] MEDS: FUROSEMIDE 40 MG/4 ML INJECTABLE VIAL IVPUSH SCH ×2 (06:12→13:53)
[2019-07-19] MEDS: GABAPENTIN 400 MG CAPSULE (FP) PO SCH ×3 (06:12→22:01)
[2019-07-19 07:39] LABS: HEMATOCRIT 41.7 % (32.4-45.2); HEMOGLOBIN 13.5 GM/dL (10.7-15.3); MCH 28.5 pg (25.7-33.7); MCHC 32.5 g/dl (32.0-36.0); MEAN CELL VOLUME 87.8 fl (80-96); MEAN PLT VOLUME 7.4 fl (7.5-11.1); PLATELET COUNT 285 K/MM3 (134-434); RBC 4.75 M/mm3 (3.60-5.2); RDW 17.4 % (11.6-15.6); WHITE BLOOD COUNT 5.4 K/mm3 (4.0-10.0)
[2019-07-19 08:14] LABS: ANION GAP 6 MMOL/L (8-16); BLOOD UREA NITROGEN 21.9 mg/dL (7-18); CALCIUM 9.2 mg/dL (8.5-10.1); CHLORIDE 90 mmol/L (98-107); CO2 > 45 mmol/L (21-32); CREATININE 0.5 mg/dL (0.55-1.3); GLUCOSE,RANDOM 90 mg/dL (74-106); POTASSIUM 4.4 mmol/L (3.5-5.1); SODIUM 142 mmol/L (136-145)
[2019-07-19] MEDS: CYANOCOBALAMIN 1,000 MCG TABLET (FP) PO SCH (10:39)
[2019-07-19] MEDS: ASCORBIC ACID 500 MG TABLET (FP) PO SCH (10:40)
[2019-07-19] MEDS: RANITIDINE HCL 150 MG TABLET (FP) PO SCH ×2 (10:40→22:03)
[2019-07-19] MEDS: AMINO ACIDS/PROTEIN HYDROLYS 30 ML LIQUID.PKT PO SCH (10:40)
[2019-07-19] MEDS: DAPTOMYCIN 700 MG in SODIUM CHLORIDE 50 ML IVPB SCH (10:41)
[2019-07-19] MEDS: MULTIVITAMINS (DAILY MVI) TABLET (FP) PO SCH (10:41)
[2019-07-19] MEDS: CHOLECALCIFEROL (VIT D3) 1,000 UNIT (25 MCG) TABLET PO SCH ×2 (10:41→22:03)
[2019-07-19] MEDS: APIXABAN 5 MG TABLET PO SCH ×2 (10:41→22:02)
[2019-07-19] MEDS: TRIAMCINOLONE ACET 0.1% CREAM 15 GM TUBE TP SCH ×2 (13:52→22:03)
--- NOTE | 2019-07-19 17:02 | PN ---
Physical Exam: SUBJECTIVE: Patient seen and examined. She has no complaints. OBJECTIVE: Vital Signs Period Temp Pulse Resp BP Sys/William Pulse Ox Last 24 Hr 98 F-99.0 F 78-92 18-18 113-126/66-97 98 GENERAL: The patient is awake, alert, and fully oriented, in no acute distress. LUNGS: Breath sounds equal, clear to auscultation bilaterally, no wheezes, no crackles, no accessory muscle use. HEART: Irregularly irregular. ABDOMEN: Obese, soft, nontender, nondistended, normoactive bowel sounds, no guarding, no rebound, no hepatosplenomegaly, no masses. EXTREMITIES: 2+ pulses, warm, well-perfused. Lower legs wrapped. Decreased erythema left thigh. Erythema in lower abdominal skin folds and bilateral groin Laboratory Results - last 24 hr 07/19/19 07/19/19 06:35 06:35 WBC 5.4 RBC 4.75 Hgb 13.5 Hct 41.7 MCV 87.8 MCH 28.5 MCHC 32.5 RDW 17.4 H Plt Count 285 MPV 7.4 L Sodium 142 Potassium 4.4 Chloride 90 L Carbon Dioxide > 45 H Anion Gap 6 L BUN 21.9 H Creatinine 0.5 L Est GFR (CKD-EPI)AfAm 112.07 Est GFR (CKD-EPI)NonAf 96.69 Random Glucose 90 Calcium 9.2 Active Medications Generic Name Dose Route Start Last Admin Trade Name Freq PRN Reason Stop Dose Admin Acetaminophen 650 mg 07/11/19 10:59 07/18/19 10:46 Tylenol - PO 650 mg Q6H PRN Administration HEADACHE Amino Acids 30 ml 07/18/19 08:00 07/19/19 10:40 Prosource No Carb Liquid Pkt PO 30 ml DAILY@0800 [facility] Administration Apixaban 5 mg 07/11/19 10:00 07/19/19 10:41 Eliquis - PO 5 mg BID [facility] Administration Ascorbic Acid 1,000 mg 07/11/19 10:00 07/19/19 10:40 Vitamin C - PO 1,000 mg DAILY [facility] Administration Cholecalciferol 1,000 unit 07/11/19 10:00 07/19/19 10:41 Vitamin D3 - PO 1,000 unit BID [facility] Administration Cyanocobalamin 1,000 mcg 07/11/19 10:00 07/19/19 10:39 Vitamin B12 - PO 1,000 mcg DAILY [facility] Administration Diltiazem HCl 360 mg 07/11/19 10:00 07/19/19 10:40 Cardizem Cd - PO 360 mg DAILY [facility] Administration Furosemide 40 mg 07/15/19 14:00 07/19/19 13:53 Lasix Injection - IVPUSH 40 mg BID@0600,1400 [facility] Administration Gabapentin 400 mg 07/11/19 07:44 07/19/19 13:53 Neurontin - PO 400 mg TID [facility] Administration Aztreonam 2 gm/ Dextrose 100 mls @ 100 mls/hr 07/12/19 11:15 07/19/19 10:41 IVPB 100 mls/hr Q8H-IV [facility] Administration Protocol Metoprolol Succinate 50 mg 07/11/19 10:45 07/19/19 10:41 Toprol Xl - PO 50 mg BID [facility] Administration Multivitamins/Minerals/Vitamin C 1 tab 07/18/19 10:00 07/19/19 10:41 Tab-A-Vit - PO 1 tab DAILY [facility] Administration Nystatin 1 applic 07/11/19 03:00 07/19/19 14:10 Nystop Powder - TP 1 applic TID [facility] Administration Prednisone 5 mg 07/20/19 10:00 Deltasone - PO 07/22/19 10:01 DAILY [facility] Ranitidine HCl 150 mg 07/11/19 10:00 07/19/19 10:40 Zantac - PO 150 mg BID [facility] Administration Triamcinolone Acetonide 1 applic 07/14/19 22:00 07/19/19 13:52 Aristocort 0.1% Cream - TP 1 applic BID [facility] Administration ASSESSMENT/PLAN: This is a 74 year old woman with a history of atrial fib, OA, RA, Sjogren syndrome, chronic hypoxic respiratory failure, COPD, venous stasis dermatitis, recurrent RLE cellulitis who presented to the ED with a headache. 1. Sepsis secondary to BLE cellulitis - Improving - Continue Aztreonam, Daptomycin - ID follow-up 2. Acute on chronic diastolic heart failure - Improving - Continue Lasix IV 3. [place]ra firma-forme dermatosis of legs - Continue topical triamcinolone cream, PITER wraps, leg elevation 4. Cutaneous candidiasis of abdominal skin folds and groin - Continue topical Nystatin powder 5. Stage I pressure ulcer of sacrum - Continue wound care 6. Hyperkalemia - Improved 7. Left renal pole mass - Urology follow-up 8. Rheumatoid arthritis/Sjogren syndrome - Plaquenil on hold 9. Osteoarthritis 10. Chronic hypoxic respiratory failure secondary to COPD - Continue prednisone taper 11. Atrial fibrillation, permanent - Continue Toprol XL, Cardizem, Eliquis 12. Morbid obesity with BMI 43.2 13. Disposition - Plan for discharge home with home care services once IV antibiotics and IV Lasix complete
[2019-07-20] MEDS: AZTREONAM 2 GM in DEXTROSE 5%-WATER 100 ML IVPB SCH ×3 (01:32→17:22)
[2019-07-20] MEDS: FUROSEMIDE 40 MG/4 ML INJECTABLE VIAL IVPUSH SCH (06:34)
[2019-07-20] MEDS: GABAPENTIN 400 MG CAPSULE (FP) PO SCH ×3 (06:34→21:01)
[2019-07-20] MEDS: NYSTATIN POWDER 100,000 UNITS/GM - 15 GM TOPICAL POWDER TP SCH ×3 (06:34→21:02)
[2019-07-20 08:36] LABS: HEMATOCRIT 42.8 % (32.4-45.2); HEMOGLOBIN 13.8 GM/dL (10.7-15.3); MCH 28.4 pg (25.7-33.7); MCHC 32.2 g/dl (32.0-36.0); MEAN CELL VOLUME 88.4 fl (80-96); MEAN PLT VOLUME 7.5 fl (7.5-11.1); PLATELET COUNT 280 K/MM3 (134-434); RBC 4.84 M/mm3 (3.60-5.2); RDW 17.8 % (11.6-15.6); WHITE BLOOD COUNT 7.4 K/mm3 (4.0-10.0)
[2019-07-20 09:06] LABS: ANION GAP 5 MMOL/L (8-16); BLOOD UREA NITROGEN 23.1 mg/dL (7-18); CALCIUM 8.9 mg/dL (8.5-10.1); CHLORIDE 92 mmol/L (98-107); CO2 > 45 mmol/L (21-32); CREATININE 0.4 mg/dL (0.55-1.3); GLUCOSE,RANDOM 61 mg/dL (74-106); POTASSIUM 4.6 mmol/L (3.5-5.1); SODIUM 142 mmol/L (136-145)
--- NOTE | 2019-07-20 10:40 | PN ---
Progress Note, Physician Chief Complaint: denies cp or sob Weight down from 07/16 History of Present Illness: BP trending on low side - Current Medication List Current Medications: Active Medications Acetaminophen (Tylenol -) 650 mg PO Q6H PRN PRN Reason: HEADACHE Last Admin: 07/18/19 10:46 Dose: 650 mg Amino Acids (Prosource No Carb Liquid Pkt) 30 ml PO DAILY@0800 [facility] Last Admin: 07/19/19 10:40 Dose: 30 ml Apixaban (Eliquis -) 5 mg PO BID [facility] Last Admin: 07/19/19 22:02 Dose: 5 mg Ascorbic Acid (Vitamin C -) 1,000 mg PO DAILY [facility] Last Admin: 07/19/19 10:40 Dose: 1,000 mg Cholecalciferol (Vitamin D3 -) 1,000 unit PO BID [facility] Last Admin: 07/19/19 22:03 Dose: 1,000 unit Cyanocobalamin (Vitamin B12 -) 1,000 mcg PO DAILY [facility] Last Admin: 07/19/19 10:39 Dose: 1,000 mcg Diltiazem HCl (Cardizem Cd -) 360 mg PO DAILY [facility] Last Admin: 07/19/19 10:40 Dose: 360 mg Furosemide (Lasix Injection -) 40 mg IVPUSH BID@0600,1400 [facility] Last Admin: 07/20/19 06:34 Dose: 40 mg Gabapentin (Neurontin -) 400 mg PO TID [facility] Last Admin: 07/20/19 06:34 Dose: 400 mg Aztreonam 2 gm/ Dextrose 100 mls @ 100 mls/hr IVPB Q8H-IV [facility]; Protocol Last Admin: 07/20/19 01:32 Dose: 100 mls/hr Metoprolol Succinate (Toprol Xl -) 50 mg PO BID [facility] Last Admin: 07/19/19 22:02 Dose: 50 mg Multivitamins/Minerals/Vitamin C (Tab-A-Vit -) 1 tab PO DAILY [facility] Last Admin: 07/19/19 10:41 Dose: 1 tab Nystatin (Nystop Powder -) 1 applic TP TID [facility] Last Admin: 07/20/19 06:34 Dose: 1 applic Prednisone (Deltasone -) 5 mg PO DAILY [facility] Stop: 07/22/19 10:01 Ranitidine HCl (Zantac -) 150 mg PO BID [facility] Last Admin: 07/19/19 22:03 Dose: 150 mg Triamcinolone Acetonide (Aristocort 0.1% Cream -) 1 applic TP BID [facility] Last Admin: 07/19/19 22:03 Dose: 1 applic - Objective Vital Signs: Vital Signs Temperature 98.3 F 07/20/19 05:00 Pulse Rate 76 07/20/19 05:00 Respiratory Rate 20 07/20/19 05:00 Blood Pressure 113/54 L 07/20/19 05:00 O2 Sat by Pulse Oximetry (%) 98 07/19/19 21:00 Constitutional: Yes: No Distress Cardiovascular: Yes: Pulse Irregular Respiratory: Yes: CTA Bilaterally Gastrointestinal: Yes: Soft, Abdomen, Obese Edema: Yes Edema: LLE: 1+ (venous stasis), RLE: 1+ (venous stasis) Labs: CBC, BMP 07/20/19 06:30 07/20/19 06:30 INR, PTT INR 1.28 (0.83-1.09) H 07/10/19 20:27 Laboratory Tests 07/20/19 07/20/19 06:30 06:30 WBC 7.4 Hgb 13.8 Plt Count 280 Sodium 142 Potassium 4.6 Creatinine 0.4 L Calcium 8.9 Assessment/Plan Assessment/Plan 74 yo with h/o afib on coumadin, htn, hl, morbid obesity, copd, obesity hypoventilation syndrome, severe djd/oa/spinal stenosis, sjogren's, RA, gerd who p/w worsening of her chronic LE cellulitis. HTN: - continue current meds chronic Afib: -cont eliquis -rate control with toprol and dilt HPL: -cont home statin Acute on chronic diastolic chf, venous insuff/le edema: -repeat CXR -Decrease lasix to daily dosing as BP running on low/ low-normal side last 24 hours cellulitis - mgm't per ID, pmd
[2019-07-20] MEDS: RANITIDINE HCL 150 MG TABLET (FP) PO SCH ×2 (10:48→21:01)
[2019-07-20] MEDS: MULTIVITAMINS (DAILY MVI) TABLET (FP) PO SCH (10:48)
[2019-07-20] MEDS: ASCORBIC ACID 500 MG TABLET (FP) PO SCH (10:48)
[2019-07-20] MEDS: AMINO ACIDS/PROTEIN HYDROLYS 30 ML LIQUID.PKT PO SCH (10:48)
[2019-07-20] MEDS: CHOLECALCIFEROL (VIT D3) 1,000 UNIT (25 MCG) TABLET PO SCH ×2 (10:49→21:01)
[2019-07-20] MEDS: predniSONE 5 MG TABLET (UD) PO SCH (10:49)
[2019-07-20] MEDS: CYANOCOBALAMIN 1,000 MCG TABLET (FP) PO SCH (10:49)
[2019-07-20] MEDS: APIXABAN 5 MG TABLET PO SCH ×2 (10:49→21:01)
[2019-07-20] MEDS: TRIAMCINOLONE ACET 0.1% CREAM 15 GM TUBE TP SCH ×2 (10:51→21:02)
--- NOTE | 2019-07-20 12:43 | PN ---
Progress Note, Physician History of Present Illness: AWAKE, ALERT NO C/O L LE PAIN TEMPS DOWN AFEBRILE WBC IMPROVED WNL BC (-) TOLERATING ANTIBIOTICS - Current Medication List Current Medications: Active Medications Acetaminophen (Tylenol -) 650 mg PO Q6H PRN PRN Reason: HEADACHE Last Admin: 07/18/19 10:46 Dose: 650 mg Amino Acids (Prosource No Carb Liquid Pkt) 30 ml PO DAILY@0800 [facility] Last Admin: 07/20/19 10:48 Dose: 30 ml Apixaban (Eliquis -) 5 mg PO BID [facility] Last Admin: 07/20/19 10:49 Dose: 5 mg Ascorbic Acid (Vitamin C -) 1,000 mg PO DAILY [facility] Last Admin: 07/20/19 10:48 Dose: 1,000 mg Cholecalciferol (Vitamin D3 -) 1,000 unit PO BID [facility] Last Admin: 07/20/19 10:49 Dose: 1,000 unit Cyanocobalamin (Vitamin B12 -) 1,000 mcg PO DAILY [facility] Last Admin: 07/20/19 10:49 Dose: 1,000 mcg Diltiazem HCl (Cardizem Cd -) 360 mg PO DAILY [facility] Last Admin: 07/20/19 10:48 Dose: 360 mg Furosemide (Lasix Injection -) 40 mg IVPUSH DAILY [facility] Gabapentin (Neurontin -) 400 mg PO TID [facility] Last Admin: 07/20/19 06:34 Dose: 400 mg Aztreonam 2 gm/ Dextrose 100 mls @ 100 mls/hr IVPB Q8H-IV [facility]; Protocol Last Admin: 07/20/19 10:50 Dose: 100 mls/hr Metoprolol Succinate (Toprol Xl -) 50 mg PO BID [facility] Last Admin: 07/20/19 10:49 Dose: 50 mg Multivitamins/Minerals/Vitamin C (Tab-A-Vit -) 1 tab PO DAILY [facility] Last Admin: 07/20/19 10:48 Dose: 1 tab Nystatin (Nystop Powder -) 1 applic TP TID [facility] Last Admin: 07/20/19 06:34 Dose: 1 applic Prednisone (Deltasone -) 5 mg PO DAILY [facility] Stop: 07/22/19 10:01 Last Admin: 07/20/19 10:49 Dose: 5 mg Ranitidine HCl (Zantac -) 150 mg PO BID [facility] Last Admin: 07/20/19 10:48 Dose: 150 mg Triamcinolone Acetonide (Aristocort 0.1% Cream -) 1 applic TP BID [facility] Last Admin: 07/20/19 10:51 Dose: 1 applic - Objective Vital Signs: Vital Signs Temperature 98.3 F 07/20/19 05:00 Pulse Rate 76 07/20/19 05:00 Respiratory Rate 20 07/20/19 05:00 Blood Pressure 113/54 L 07/20/19 05:00 O2 Sat by Pulse Oximetry (%) 98 07/19/19 21:00 Constitutional: Yes: No Distress Eyes: Yes: Conjunctiva Clear Cardiovascular: Yes: Regular Rate and Rhythm, S1, S2 Respiratory: Yes: CTA Bilaterally Gastrointestinal: Yes: Normal Bowel Sounds, Soft, Abdomen, Obese. No: Tenderness Extremities: Yes: Other (L THIGH ERYTHEMA RESOLVED; MINIMAL RESIDUAL L LE ERYTHEMA/ WARMTH, SUPERIMPOSED ON CHR VENOUS STASIS DERMATITIS) Labs: CBC, BMP 07/20/19 06:30 07/20/19 06:30 INR, PTT INR 1.28 (0.83-1.09) H 07/10/19 20:27 Assessment/Plan RECURRENT LE CELLULITIS IMPROVED MULTIPLE ANTIBIOTIC ALLERGIES CONTINUE DAPTOMYCIN/ AZTREONAM ADDITIONAL 24HR, THEN OBSERVE OFF
[2019-07-20] MEDS: DAPTOMYCIN 700 MG in SODIUM CHLORIDE 50 ML IVPB SCH (15:32)
[2019-07-20] MEDS: ACETAMINOPHEN 325 MG TABLET (FP) PO PRN (15:33)
[2019-07-20] MEDS ORDERED: PT OWN MED DRAWER 7, Y5N ONE ×2 (17:17→18:50)
--- NOTE | 2019-07-20 17:21 | PN ---
Progress Note (short form) - Note Progress Note: renal sono confirms rt renal mass 3.2cm mass present on imaging one year ago and stable in light of multiple comorbidities-observe with repeat imaging in 3 mos Problem List - Problems (1) Right renal mass Code(s): N28.89 - OTHER SPECIFIED DISORDERS OF KIDNEY AND URETER
--- NOTE | 2019-07-20 17:56 | PN ---
Physical Exam: SUBJECTIVE: Patient seen and examined. She is lying in bed comfortably. She has no complaints. OBJECTIVE: Vital Signs Period Temp Pulse Resp BP Sys/William Pulse Ox Last 24 Hr 98.0 F-98.3 F 76-80 20-20 97-124/54-59 98 GENERAL: The patient is awake, alert, and fully oriented, in no acute distress. LUNGS: Breath sounds equal, clear to auscultation bilaterally, no wheezes, no crackles, no accessory muscle use. HEART: Irregularly irregular. ABDOMEN: Obese, soft, nontender, nondistended, normoactive bowel sounds, no guarding, no rebound, no hepatosplenomegaly, no masses. EXTREMITIES: 2+ pulses, warm, well-perfused. Chronic changes of lower legs with scaling on right. Left lower leg is warm but non-tender. No erythema of upper legs. Erythema in lower abdominal skin folds and groin. No edema. Laboratory Results - last 24 hr 07/20/19 07/20/19 06:30 06:30 WBC 7.4 RBC 4.84 Hgb 13.8 Hct 42.8 MCV 88.4 MCH 28.4 MCHC 32.2 RDW 17.8 H Plt Count 280 MPV 7.5 Sodium 142 Potassium 4.6 Chloride 92 L Carbon Dioxide > 45 H Anion Gap 5 L BUN 23.1 H Creatinine 0.4 L Est GFR (CKD-EPI)AfAm 120.60 Est GFR (CKD-EPI)NonAf 104.06 Random Glucose 61 L Calcium 8.9 Active Medications Generic Name Dose Route Start Last Admin Trade Name Freq PRN Reason Stop Dose Admin Acetaminophen 650 mg 07/11/19 10:59 07/20/19 15:33 Tylenol - PO 650 mg Q6H PRN Administration HEADACHE Amino Acids 30 ml 07/18/19 08:00 07/20/19 10:48 Prosource No Carb Liquid Pkt PO 30 ml DAILY@0800 [facility] Administration Apixaban 5 mg 07/11/19 10:00 07/20/19 10:49 Eliquis - PO 5 mg BID [facility] Administration Ascorbic Acid 1,000 mg 07/11/19 10:00 07/20/19 10:48 Vitamin C - PO 1,000 mg DAILY [facility] Administration Cholecalciferol 1,000 unit 07/11/19 10:00 07/20/19 10:49 Vitamin D3 - PO 1,000 unit BID [facility] Administration Cyanocobalamin 1,000 mcg 07/11/19 10:00 07/20/19 10:49 Vitamin B12 - PO 1,000 mcg DAILY [facility] Administration Diltiazem HCl 360 mg 07/11/19 10:00 07/20/19 10:48 Cardizem Cd - PO 360 mg DAILY [facility] Administration Furosemide 40 mg 07/21/19 10:00 Lasix Injection - IVPUSH DAILY [facility] Gabapentin 400 mg 07/11/19 07:44 07/20/19 15:33 Neurontin - PO 400 mg TID [facility] Administration Aztreonam 2 gm/ Dextrose 100 mls @ 100 mls/hr 07/12/19 11:15 07/20/19 17:22 IVPB 100 mls/hr Q8H-IV [facility] Administration Protocol Daptomycin 700 mg/ Sodium 50 mls @ 50 mls/hr 07/20/19 14:00 07/20/19 15:32 Chloride IVPB 50 mls/hr DAILY [facility] Administration Protocol Metoprolol Succinate 50 mg 07/11/19 10:45 07/20/19 10:49 Toprol Xl - PO 50 mg BID [facility] Administration Multivitamins/Minerals/Vitamin C 1 tab 07/18/19 10:00 07/20/19 10:48 Tab-A-Vit - PO 1 tab DAILY [facility] Administration Nystatin 1 applic 07/11/19 03:00 07/20/19 15:35 Nystop Powder - TP 1 applic TID [facility] Administration Prednisone 5 mg 07/20/19 10:00 07/20/19 10:49 Deltasone - PO 07/22/19 10:01 5 mg DAILY [facility] Administration Ranitidine HCl 150 mg 07/11/19 10:00 07/20/19 10:48 Zantac - PO 150 mg BID [facility] Administration Triamcinolone Acetonide 1 applic 07/14/19 22:00 07/20/19 10:51 Aristocort 0.1% Cream - TP 1 applic BID [facility] Administration ASSESSMENT/PLAN: This is a 74 year old woman with a history of atrial fib, OA, RA, Sjogren syndrome, chronic hypoxic respiratory failure, COPD, venous stasis dermatitis, recurrent RLE cellulitis who presented to the ED with a headache. 1. Sepsis secondary to BLE cellulitis - Legs appear much improved - Continue Aztreonam, Daptomycin - As per ID, will continue abx x 24 hours more 2. Acute on chronic diastolic heart failure - CXR improved - Lasix being decreased 3. [place]ra firma-forme dermatosis of legs - Continue topical triamcinolone cream, PITER wraps, leg elevation 4. Cutaneous candidiasis of abdominal skin folds and groin - Continue topical Nystatin powder 5. Stage I pressure ulcer of sacrum - Continue wound care 6. Hyperkalemia - Improved 7. Left renal pole mass - Unchanged as per urology and will need repeat imaging in 3 months 8. Rheumatoid arthritis/Sjogren syndrome - Plaquenil on hold 9. Osteoarthritis 10. Chronic hypoxic respiratory failure secondary to COPD - Continue prednisone taper 11. Atrial fibrillation, permanent - Continue Toprol XL, Cardizem, Eliquis 12. Morbid obesity with BMI 43.2 13. Disposition - Plan for discharge home with home care services once IV antibiotics and IV Lasix complete
[2019-07-21] MEDS: AZTREONAM 2 GM in DEXTROSE 5%-WATER 100 ML IVPB SCH ×2 (02:00→09:44)
[2019-07-21] MEDS: NYSTATIN POWDER 100,000 UNITS/GM - 15 GM TOPICAL POWDER TP SCH ×3 (06:12→21:29)
[2019-07-21] MEDS ORDERED: PT OWN MED DRAWER 7, Y5N ONE ×2 (06:22→09:40)
[2019-07-21] MEDS: GABAPENTIN 400 MG CAPSULE (FP) PO SCH ×3 (06:23→21:28)
[2019-07-21] MEDS: AMINO ACIDS/PROTEIN HYDROLYS 30 ML LIQUID.PKT PO SCH (08:30)
[2019-07-21] MEDS: CHOLECALCIFEROL (VIT D3) 1,000 UNIT (25 MCG) TABLET PO SCH ×2 (09:45→21:28)
[2019-07-21] MEDS: predniSONE 5 MG TABLET (UD) PO SCH (09:45)
[2019-07-21] MEDS: ASCORBIC ACID 500 MG TABLET (FP) PO SCH (09:45)
[2019-07-21] MEDS: APIXABAN 5 MG TABLET PO SCH ×2 (09:45→21:29)
[2019-07-21] MEDS: MULTIVITAMINS (DAILY MVI) TABLET (FP) PO SCH (09:45)
[2019-07-21] MEDS: RANITIDINE HCL 150 MG TABLET (FP) PO SCH ×2 (09:45→21:28)
[2019-07-21] MEDS: CYANOCOBALAMIN 1,000 MCG TABLET (FP) PO SCH (09:45)
[2019-07-21] MEDS: TRIAMCINOLONE ACET 0.1% CREAM 15 GM TUBE TP SCH ×2 (09:46→21:30)
[2019-07-21 09:55] LABS: ANION GAP 7 MMOL/L (8-16); BLOOD UREA NITROGEN 20.6 mg/dL (7-18); CALCIUM 9.2 mg/dL (8.5-10.1); CHLORIDE 90 mmol/L (98-107); CO2 > 45 mmol/L (21-32); CREATININE 0.5 mg/dL (0.55-1.3); GLUCOSE,RANDOM 161 mg/dL (74-106); POTASSIUM 4.7 mmol/L (3.5-5.1); SODIUM 142 mmol/L (136-145)
[2019-07-21] MEDS ORDERED: FUROSEMIDE 40 MG/4 ML INJECTABLE VIAL IVPUSH SCH (10:00)
[2019-07-21] MEDS: DAPTOMYCIN 700 MG in SODIUM CHLORIDE 50 ML IVPB SCH (11:30)
--- NOTE | 2019-07-21 13:10 | PN ---
Progress Note (short form) - Note Progress Note: no cp, palps, dizziness, dyspnea. edema improving Current Medications Acetaminophen (Tylenol -) 650 mg PO Q6H PRN PRN Reason: HEADACHE Last Admin: 07/20/19 15:33 Dose: 650 mg Amino Acids (Prosource No Carb Liquid Pkt) 30 ml PO DAILY@0800 [facility] Last Admin: 07/21/19 08:30 Dose: 30 ml Apixaban (Eliquis -) 5 mg PO BID [facility] Last Admin: 07/21/19 09:45 Dose: 5 mg Ascorbic Acid (Vitamin C -) 1,000 mg PO DAILY [facility] Last Admin: 07/21/19 09:45 Dose: 1,000 mg Cholecalciferol (Vitamin D3 -) 1,000 unit PO BID [facility] Last Admin: 07/21/19 09:45 Dose: 1,000 unit Cyanocobalamin (Vitamin B12 -) 1,000 mcg PO DAILY [facility] Last Admin: 07/21/19 09:45 Dose: 1,000 mcg Diltiazem HCl (Cardizem Cd -) 360 mg PO DAILY [facility] Last Admin: 07/21/19 09:45 Dose: 360 mg Furosemide (Lasix Injection -) 40 mg IVPUSH DAILY [facility] Last Admin: 07/21/19 09:45 Dose: 40 mg Gabapentin (Neurontin -) 400 mg PO TID [facility] Last Admin: 07/21/19 06:23 Dose: 400 mg Aztreonam 2 gm/ Dextrose 100 mls @ 100 mls/hr IVPB Q8H-IV [facility]; Protocol Last Admin: 07/21/19 09:44 Dose: 100 mls/hr Daptomycin 700 mg/ Sodium (Chloride) 50 mls @ 50 mls/hr IVPB DAILY [facility]; Protocol Last Admin: 07/21/19 11:30 Dose: 50 mls/hr Metoprolol Succinate (Toprol Xl -) 50 mg PO BID [facility] Last Admin: 07/21/19 09:45 Dose: 50 mg Multivitamins/Minerals/Vitamin C (Tab-A-Vit -) 1 tab PO DAILY [facility] Last Admin: 07/21/19 09:45 Dose: 1 tab Nystatin (Nystop Powder -) 1 applic TP TID [facility] Last Admin: 07/21/19 06:12 Dose: 1 applic Prednisone (Deltasone -) 5 mg PO DAILY [facility] Stop: 07/22/19 10:01 Last Admin: 07/21/19 09:45 Dose: 5 mg Ranitidine HCl (Zantac -) 150 mg PO BID [facility] Last Admin: 07/21/19 09:45 Dose: 150 mg Triamcinolone Acetonide (Aristocort 0.1% Cream -) 1 applic TP BID [facility] Last Admin: 07/21/19 09:46 Dose: 1 applic Vital Signs Period Temp Pulse Resp BP Sys/William Pulse Ox Last 24 Hr 97.5 F-98.1 F 74-80 20-20 128-138/64-67 Constitutional: Yes: No Distress Cardiovascular: Yes: Pulse Irregular Respiratory: Yes: CTA Bilaterally Gastrointestinal: Yes: Soft, Abdomen, Obese Edema: Yes Edema: LLE: 1+ (venous stasis), RLE: 1+ (venous stasis) no jaundice, diaphoresis not agitated Assessment/Plan 74 yo with h/o afib on coumadin, htn, hl, morbid obesity, copd, obesity hypoventilation syndrome, severe djd/oa/spinal stenosis, sjogren's, RA, gerd who p/w worsening of her chronic LE cellulitis. HTN: - continue current meds chronic Afib: -cont eliquis -rate control with toprol and dilt HPL: -cont home statin Acute on chronic diastolic chf, venous insuff/le edema: - congestion improved on repeat CXR, edema improving - now on lasix IV daily for low BPs, continue cellulitis - mgm't per ID, pmd
--- NOTE | 2019-07-21 16:49 | PN ---
Physical Exam: SUBJECTIVE: Patient seen and examined, doing well, leg symptoms almost resolved , no dyspnea, more interactive and conversant than last week. OBJECTIVE: Vital Signs Period Temp Pulse Resp BP Sys/William Pulse Ox Last 24 Hr 97.5 F-98.1 F 67-80 20-20 109-138/57-67 Intake & Output 07/18/19 07/19/19 07/20/19 07/21/19 23:59 23:59 23:59 23:59 Intake Total 1140 850 400 100 Output Total 4680 3000 1300 1700 Balance -3540 -2150 -900 -1600 Weight 277 lb 276 lb 8 oz GENERAL: Laboratory Results - last 24 hr 07/21/19 07/21/19 07/21/19 06:30 08:21 09:08 Sodium Cancelled 142 Potassium Cancelled 4.7 Chloride Cancelled 90 L Carbon Dioxide Cancelled > 45 H Anion Gap Cancelled 7 L BUN Cancelled 20.6 H Creatinine Cancelled 0.5 L Est GFR (CKD-EPI)AfAm Cancelled 112.07 Est GFR (CKD-EPI)NonAf Cancelled 96.69 POC Glucometer 78 Random Glucose Cancelled 161 H Calcium Cancelled 9.2 Active Medications Generic Name Dose Route Start Last Admin Trade Name Freq PRN Reason Stop Dose Admin Acetaminophen 650 mg 07/11/19 10:59 07/20/19 15:33 Tylenol - PO 650 mg Q6H PRN Administration HEADACHE Amino Acids 30 ml 07/18/19 08:00 07/21/19 08:30 Prosource No Carb Liquid Pkt PO 30 ml DAILY@0800 [facility] Administration Apixaban 5 mg 07/11/19 10:00 07/21/19 09:45 Eliquis - PO 5 mg BID [facility] Administration Ascorbic Acid 1,000 mg 07/11/19 10:00 07/21/19 09:45 Vitamin C - PO 1,000 mg DAILY [facility] Administration Cholecalciferol 1,000 unit 07/11/19 10:00 07/21/19 09:45 Vitamin D3 - PO 1,000 unit BID [facility] Administration Cyanocobalamin 1,000 mcg 07/11/19 10:00 07/21/19 09:45 Vitamin B12 - PO 1,000 mcg DAILY [facility] Administration Diltiazem HCl 360 mg 07/11/19 10:00 07/21/19 09:45 Cardizem Cd - PO 360 mg DAILY [facility] Administration Furosemide 40 mg 07/21/19 10:00 07/21/19 09:45 Lasix Injection - IVPUSH 40 mg DAILY [facility] Administration Gabapentin 400 mg 07/11/19 07:44 07/21/19 14:24 Neurontin - PO 400 mg TID [facility] Administration Metoprolol Succinate 50 mg 07/11/19 10:45 07/21/19 09:45 Toprol Xl - PO 50 mg BID [facility] Administration Multivitamins/Minerals/Vitamin C 1 tab 07/18/19 10:00 07/21/19 09:45 Tab-A-Vit - PO 1 tab DAILY [facility] Administration Nystatin 1 applic 07/11/19 03:00 07/21/19 14:25 Nystop Powder - TP 1 applic TID [facility] Administration Prednisone 5 mg 07/20/19 10:00 07/21/19 09:45 Deltasone - PO 07/22/19 10:01 5 mg DAILY [facility] Administration Ranitidine HCl 150 mg 07/11/19 10:00 07/21/19 09:45 Zantac - PO 150 mg BID [facility] Administration Triamcinolone Acetonide 1 applic 07/14/19 22:00 07/21/19 09:46 Aristocort 0.1% Cream - TP 1 applic BID [facility] Administration ASSESSMENT/PLAN: 74 year old woman with a history of atrial fib, OA, RA, Sjogren syndrome, chronic hypoxic respiratory failure, COPD, venous stasis dermatitis, recurrent RLE cellulitis who presented to the ED with a headache. 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 ID input noted. Continue topical triamcinolone cream, PITER wraps, leg elevation patient counseled on adequate hygeine practices. Volume status improved. transition to PO lasix in 24 hours. Cardiology input noted. Urology input noted. Discussed with patient of the finding and need for renal ultrasound in 3months to monitor Plaquenil on hold On prednisone taper from recent admit. [id number] Dispo d/c home with services in 24hours if no new concerns. Patient adamantly declines placement and wants to go home. Visit type - Emergency Visit Emergency Visit: Yes ED Registration Date: 07/10/19 Care time: The patient presented to the Emergency Department on the above date and was hospitalized for further evaluation of their emergent condition. - New Patient This patient is new to me today: No - Critical Care Critical Care patient: No - Discharge Referral Referred to [facility] No
[2019-07-22] MEDS: ACETAMINOPHEN 325 MG TABLET (FP) PO PRN (01:47)
[2019-07-22] MEDS: GABAPENTIN 400 MG CAPSULE (FP) PO SCH (05:39)
[2019-07-22] MEDS: NYSTATIN POWDER 100,000 UNITS/GM - 15 GM TOPICAL POWDER TP SCH (05:40)
[2019-07-22] MEDS ORDERED: FUROSEMIDE 40 MG TABLET (FP) PO SCH (06:00)
[2019-07-22 06:44] LABS: BASO % 0.2 % (0-2.0); EOS % 5.8 % (0-4.5); HEMATOCRIT 40.2 % (32.4-45.2); HEMOGLOBIN 12.9 GM/dL (10.7-15.3); LYMPH % 22.6 % (8-40); MCH 28.4 pg (25.7-33.7); MCHC 32.1 g/dl (32.0-36.0); MEAN CELL VOLUME 88.6 fl (80-96); MEAN PLT VOLUME 7.3 fl (7.5-11.1); NEUT % 62.4 % (42.8-82.8); PLATELET COUNT 256 K/MM3 (134-434); RBC 4.54 M/mm3 (3.60-5.2); RDW 17.1 % (11.6-15.6); WHITE BLOOD COUNT 6.5 K/mm3 (4.0-10.0)
[2019-07-22 06:51] VITALS: BP 134/58; PULSE 78; TEMP 97.9
[2019-07-22 08:00] LABS: ANION GAP 4 MMOL/L (8-16); BLOOD UREA NITROGEN 20.3 mg/dL (7-18); CALCIUM 8.9 mg/dL (8.5-10.1); CHLORIDE 92 mmol/L (98-107); CO2 > 45 mmol/L (21-32); CREATININE 0.4 mg/dL (0.55-1.3); GLUCOSE,RANDOM 76 mg/dL (74-106); MAGNESIUM 2.3 mg/dL (1.8-2.4); PHOSPHOROUS 3.5 mg/dL (2.5-4.9); SODIUM 141 mmol/L (136-145)
[2019-07-22] MEDS: AMINO ACIDS/PROTEIN HYDROLYS 30 ML LIQUID.PKT PO SCH (11:01)
[2019-07-22] MEDS: TRIAMCINOLONE ACET 0.1% CREAM 15 GM TUBE TP SCH (11:02)
[2019-07-22] MEDS: predniSONE 5 MG TABLET (UD) PO SCH (11:02)
[2019-07-22] MEDS: ASCORBIC ACID 500 MG TABLET (FP) PO SCH (11:03)
[2019-07-22] MEDS: CHOLECALCIFEROL (VIT D3) 1,000 UNIT (25 MCG) TABLET PO SCH (11:03)
[2019-07-22] MEDS: APIXABAN 5 MG TABLET PO SCH (11:03)
[2019-07-22] MEDS: MULTIVITAMINS (DAILY MVI) TABLET (FP) PO SCH (11:03)
[2019-07-22] MEDS: CYANOCOBALAMIN 1,000 MCG TABLET (FP) PO SCH (11:03)
[2019-07-22] MEDS: RANITIDINE HCL 150 MG TABLET (FP) PO SCH (11:04)
--- NOTE | 2019-07-22 11:29 | DS ---
Physical Exam: SUBJECTIVE: Patient seen and examined, no new complaints, overall feels well. OBJECTIVE: Vital Signs Period Temp Pulse Resp BP Sys/William Pulse Ox Last 24 Hr 97.8 F-98.9 F 71-78 18-22 110-134/58-73 95 PHYSICAL EXAM General: sitting in bed in no acute distress, no tachypnea or use of accessory muscles of respiration, morbidly obese (BMI 43.3) neck: soft, supple, no JVD Chest; no rales or wheezing, ] Abdomen:soft, obese, NT, almost resolved inguinal erythema, non tender Extremities: resolved erythema, Bilateral LE with improved dermatitis pos pulses Psych: awake appropriate, pleasant, co-operative LABS Laboratory Results - last 24 hr 07/21/19 07/22/19 07/22/19 06:30 06:00 06:00 WBC 6.5 RBC 4.54 Hgb 12.9 Hct 40.2 MCV 88.6 MCH 28.4 MCHC 32.1 RDW 17.1 H Plt Count 256 MPV 7.3 L Absolute Neuts (auto) 4.1 Neutrophils % 62.4 Lymphocytes % 22.6 D Monocytes % 9.0 Eosinophils % 5.8 H D Basophils % 0.2 Nucleated RBC % 0 Sodium Cancelled 141 Potassium Cancelled 4.0 Chloride Cancelled 92 L Carbon Dioxide Cancelled > 45 H Anion Gap Cancelled 4 L BUN Cancelled 20.3 H Creatinine Cancelled 0.4 L Est GFR (CKD-EPI)AfAm Cancelled 120.60 Est GFR (CKD-EPI)NonAf Cancelled 104.06 Random Glucose Cancelled 76 Calcium Cancelled 8.9 Phosphorus 3.5 Magnesium 2.3 Microbiology 07/10/19 20:35 Blood - Peripheral Venous Blood Culture - Final NO GROWTH AFTER 5 DAYS INCUBATION 07/10/19 20:30 Blood - Peripheral Venous Blood Culture - Final NO GROWTH AFTER 5 DAYS INCUBATION 07/10/19 22:40 Urine - Urine Clean Catch Urine Culture - Final Contaminated: Please Repeat CT A/P without contrast: Rule out infection CT scan of the abdomen and pelvis following oral and intravenous contrast dated 07/12/2019 at 12:57 hour. Compared to prior CT scan of the abdomen pelvis dated 07/11/2019 Coronal and sagittal reformatted images were obtained. There are minimal atelectatic changes in lung bases. Borderline cardiomegaly. The gallbladder is adequately distended with a few intraluminal stones again seen and without wall thickening or pericholecystic free fluid. Evaluation of the liver and spleen remain unremarkable. Normal size, hepatic and common bile duct. Normal-appearing pancreas and both adrenal glands. Nondistended stomach limiting evaluation of its wall. Left kidney appears unremarkable with normal enhancement. Previously described exophytic low- attenuation lesion of indeterminate consistency demonstrates some enhancement consistent consistent with a mass measuring 2.5 cm. An adjacent smaller cyst is present measuring 1 cm. There is no evidence of small bowel obstruction. Normal- appearing terminal ileum and appendix. Normal amount of fecal residue in the colon without gross thickening. Partially distended urinary bladder without wall thickening. Small/atrophic uterus. There is diffuse edema and included portion of the right lateral abdominal and pelvic wall without gross abnormal enhancement Moderate degenerative disc disease at L3-L4 level Impression: See discussion above. Previously described partially exam 50 right renal lesion demonstrates some enhancement consistent with a mass for which further evaluation is needed to rule out malignancy. There is no evidence of hydroureter nephrosis, bilaterally. There is no evidence of small bowel obstruction. No free fluid or fluid collection in the abdomen and pelvis. No gross enlarged lymph nodes are identified. Partially included significant stranding/edema in the lateral wall of the mid abdomen down to the pelvis without gross evidence of abnormal enhancement or a collection. Correlate clinically to further evaluate the most lateral aspect of the right abdominal wall that was not included on this exam. CT A/p with contrast: Rule out infection CT scan of the abdomen and pelvis following oral and intravenous contrast dated 07/12/2019 at 12:57 hour. Compared to prior CT scan of the abdomen pelvis dated 07/11/2019 Coronal and sagittal reformatted images were obtained. There are minimal atelectatic changes in lung bases. Borderline cardiomegaly. The gallbladder is adequately distended with a few intraluminal stones again seen and without wall thickening or pericholecystic free fluid. Evaluation of the liver and spleen remain unremarkable. Normal size, hepatic and common bile duct. Normal-appearing pancreas and both adrenal glands. Nondistended stomach limiting evaluation of its wall. Left kidney appears unremarkable with normal enhancement. Previously described exophytic low- attenuation lesion of indeterminate consistency demonstrates some enhancement consistent consistent with a mass measuring 2.5 cm. An adjacent smaller cyst is present measuring 1 cm. There is no evidence of small bowel obstruction. Normal- appearing terminal ileum and appendix. Normal amount of fecal residue in the colon without gross thickening. Partially distended urinary bladder without wall thickening. Small/atrophic uterus. There is diffuse edema and included portion of the right lateral abdominal and pelvic wall without gross abnormal enhancement Moderate degenerative disc disease at L3-L4 level Impression: See discussion above. Previously described partially exam 50 right renal lesion demonstrates some enhancement consistent with a mass for which further evaluation is needed to rule out malignancy. There is no evidence of hydroureter nephrosis, bilaterally. There is no evidence of small bowel obstruction. No free fluid or fluid collection in the abdomen and pelvis. No gross enlarged lymph nodes are identified. Partially included significant stranding/edema in the lateral wall of the mid abdomen down to the pelvis without gross evidence of abnormal enhancement or a collection. Correlate clinically to further evaluate the most lateral aspect of the right abdominal wall that was not included on this exam. Kidney/renal US:Compared to prior CT scan of the abdomen pelvis dated 07/12/2019 The right kidney measures 11.1 cm in sagittal length with a partially exophytic midpole solid mass lesion measuring 3.2 x 2.8 cm. There is also a small simple cyst in the right mid kidney measuring 1.2 cm. The left kidney measures 11.7 cm in sagittal length and appears unremarkable. There is no evidence of hydronephrosis or gross renal stones, bilaterally. Visualized portion of the liver is slightly echogenic. IMPRESSION: Exophytic left mid renal pole solid mass lesion, anteriorly measuring 3.2 x 2.8 cm compatible with previously described solid lesion in the right kidney on prior CT scan of the abdomen pelvis dated . A small right mid renal simple cyst is also present measuring 1.2 cm. Slightly echogenic visualized portion of the liver. Please correlate with liver enzymes to rule out mild fatty infiltration. CXR: 07/15 Single portable chest x-ray compared with July 10, 2019. Patient is rotated to the right side. Cardiomegaly. No evidence of blunting of the costophrenic angles, effacement of the diaphragms. No pneumothorax, or large pleural effusion is seen. Thickened right minor fissure. Vascular congestive changes are noted in the right hemithorax with suggestion of right upper lobe consolidation. Follow-up recommended. Normal aeration of the left lung. Impression. Congestive changes are noted in the right lung. Right upper lobe consolidation is suggested. CXR 07/20: A single view the chest has been submitted. Since the prior study of 07/15/2019 the lungs appear better aerated and the increased markings have cleared. There is rotation to the right, large heart , unfolded aorta and no sign of infiltrate or failure. The angles are sharp. The bones and soft tissues are intact. Correlation recommended. HOSPITAL COURSE: Date of Admission:07/10/19 Date of Discharge: 07/22/19 A single view the chest has been submitted. Since the prior study of 07/15/2019 the lungs appear better aerated and the increased markings have cleared. There is rotation to the right, large heart , unfolded aorta and no sign of infiltrate or failure. The angles are sharp. The bones and soft tissues are intact. Correlation recommended. Minutes to complete discharge: 42 Discharge Summary Reason For Visit: SEPSIS Current Active Problems Cellulitis (Acute) Leukocytosis (Acute) Right renal mass (Acute) Severe sepsis (Acute) Hospital Course: 74 year old woman with a history of atrial fib, OA, RA, Sjogren syndrome, chronic hypoxic respiratory failure, COPD, venous stasis dermatitis, recurrent RLE cellulitis who presented to the ED with a headache. patient was noted with sepsis, suspected from pannus/LE cellulitis. She was seen by infectious disease and started on aztreonam/daptomycin. She had CT scan Abdomen/Pelvis on admission without contrast that raised concerns for appendicitis. She was seen by surgery, had no abdominal symptoms or RLQ tenderness. She received CT scan abdomen/pelvis with contrast that revealed a normal appendix. She was seen by dermatology Dr. 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 She was recommended triamcinolone ointment both lower extremities, PITER bandage, leg elevation and diuresis. her Lower extremity and abdominal wall erythema resolved with no further fevers or leucocytosis. She was monitored off antibiotics with no new concerns. She was noted with pulmonary edema, likely from aggressive volume resuscitation from her sepsis. She was placed on IV lasix and seen by cardiology. Her respiratory status markedly improved and she is transitioned to home lasix 40 mg daily. She also had 2D echo which was limited study but with normal LV EF, thickness and function. She was also noted with left kidney pole mass, seen by urology Dr. Valenzuela and recommended repeat renal ultrasound in 3 months. Concerns for poor hygeine/care at home, non compliance with follow up were raised and SNF/Assisted living placement options were discussed. However, patient declined to the same and has been arranged for discharge home with VNS/ PT and wound care. Condition: Stable - Instructions Diet, Activity, Other Instructions: You were admitted with leg infection and place on IV antibiotics with improvement. You finished your prednisone taper from recent admission. You were seen by skein yard drier and advised hygeine and keeping areas clean, keeping your legs elevated and outpatient follow up. You also had congestive heart failure and were placed on intravenous lasix and seen by cardiology You were found with kidney mass with some increase in size, were seen by urologist and advised follow up kidney ultrasound in 3 months. MEDICATIONS; Stop your BP medication enalapril for now. Continue lasix 40 mg daily till seen by your doctor You have completed your prednisone taper in the hospital. You are provided with triamcinolone cream for your legs. Continue other medications as before. INSTRUCTIONS: Leg wound care:Continue topical triamcinolone cream, PITER wraps, leg elevation. Can do daily or every other day with VNS. It is very important to practice strict hygeine practices, keep leg and belly area clean to avoid recurrent infections. Weigh yourself daily and notify doctor if weight gain > 3lbs in 2 days. You will need kidney ultrasound in 3 months to address the kidney mass and discuss further plan. FOLLOW UP: With Dr. Boykin in [address] Moore in 1-2 weeks With skein yard drier Dr. Lancaster in 1-[address] Valenzuela in 1 month Kidney ultrasound in 3 months to monitor left kidney mass If you notice new fevers, chills, redness, trouble breathing, severe pain or any new concerns, please call 911 or come to the ED. Referrals: Rocky Valenzuela MD [Staff Physician] - Roc Moore MD [Staff Physician] - Mike Boykin MD [Primary Care Provider] - Margarita Lancaster [Staff Physician] - Disposition: VNS/HOME HEALTH CARE - Home Medications Comprehensive Discharge Medication List: Ambulatory Orders Ascorbate Calcium [Vitamin C] 1,000 mg PO DAILY 08/30/15 Cholecalciferol (Vitamin D3) [Vitamin D3] 1,000 unit PO BID 08/30/15 Cyanocobalamin [Vitamin B12 -] 1,000 mcg PO DAILY 08/30/15 Oxycodone/APAP [Percocet - Must Order Individual Components] 1 each NR QID PRN 08/30/15 Simvastatin 10 mg PO HS 08/30/15 Guaifenesin [Mucinex] 600 mg PO DAILY 06/20/17 Metoprolol Succinate [Toprol XL -] 50 mg PO BID #60 tab.sr 06/25/17 Diltiazem [Cardizem -] 360 mg PO DAILY 08/29/17 Furosemide [Lasix] 40 mg PO DAILY 08/29/17 Apixaban [Eliquis] 5 mg PO BID 04/22/19 Gabapentin [Neurontin] 400 mg PO TID 05/14/19 Hydroxychloroquine Sulfate 200 mg PO DAILY 05/14/19 Ranitidine HCl [Zantac] 150 mg PO BID 05/14/19 Nystatin Powder [Nystop Powder -] 1 applic TP TID PRN #1 applic 06/16/19 Amino Acids/Protein Hydrolys [Prosource No Carb Liquid Pkt] 30 ml PO DAILY@0800 #30 packet 07/22/19 Triamcinolone 0.1% Cream [Aristocort 0.1% Cream -] 1 applic TP BID #1 applic This patient is new to me today: No Emergency Visit: Yes ED Registration Date: 07/10/19 Care time: The patient presented to the Emergency Department on the above date and was hospitalized for further evaluation of their emergent condition. Critical Care patient: No - Discharge Referral Referred to [facility] No
== END 2019-07-22 12:09 | disposition home health service (06) | DRG 871 ==
LOC: JER 18:37 → JERBED 23:10 → J8W 07-11 18:04
PROVIDERS: ADMIT Internal Medicine; ATTEND Hospitalist
DX: A41.9 Sepsis, unspecified organism (principal); I50.23 Acute on chronic systolic (congestive) heart failure; L03.311 Cellulitis of abdominal wall; L03.115 Cellulitis of right lower limb; Z68.41 Body mass index [BMI] 40.0-44.9, adult; J96.11 Chronic respiratory failure with hypoxia; J98.11 Atelectasis; L30.9 Dermatitis, unspecified; I87.8 Other specified disorders of veins; I48.2 Chronic atrial fibrillation; D72.829 Elevated white blood cell count, unspecified; J44.9 Chronic obstructive pulmonary disease, unspecified; E87.5 Hyperkalemia; E66.01 Morbid (severe) obesity due to excess calories; L89.151 Pressure ulcer of sacral region, stage 1; M06.9 Rheumatoid arthritis, unspecified; N28.89 Other specified disorders of kidney and ureter; K21.9 Gastro-esophageal reflux disease without esophagitis; I11.0 Hypertensive heart disease with heart failure; K59.00 Constipation, unspecified; R74.0 Nonspecific elevation of levels of transaminase and lactic acid dehydrogenase [LDH]
CPT/HCPCS: 36415; 71045-TC-FY; 74176-TC; 74177-TC; 76775-TC; 80048; 80053; 81003; 82550; 82803; 82962; 83605; 83735; 84100; 84484; 85025; 85027; 85610; 85730; 87040; 87086; 93005; 93010; 93306-TC; 93970-TC; 97116-GP; 97161-GP; 99285-25; J0131; J0878; J7030; Q9967

== ENCOUNTER 2019-07-26 18:19 | Inpatient (IN) | payer OTHER, MEDICARE ==
--- NOTE | 2019-07-26 19:10 | PDOC ---
History of Present Illness - General Chief Complaint: Pain Stated Complaint: SWOLLEN LEGS Time Seen by Provider: 07/26/19 19:10 History Source: Patient Exam Limitations: No Limitations - History of Present Illness Initial Comments: 74 year old female with PMH HTN, HLD, chronic venous stasis, peripheral neuropathy, CHF, atrial fibrillation on Eliquis, UTI ESBL, cellulitis MRSA ( Bactrim resistant), GERD, COPD on home O2 (2-3L), obesity presented to ED for bilateral lower extremity swelling/redness x1 week, worsening today. Pt reported she was recently admitted to [facility] for bilateral LE cellulitis, was discharged without new medications. Pt reported shortness of breath, generalized weakness. Pt denied chest pain, palpitations, lightheadedness, nausea, vomiting, fever, abdominal pain. Allergies: -PCN (swelling) -Doxycyline (swelling) -Clindamycin (rash) -Levaquin (rash) -Vancomycin (red man syndrome) Wound Care: Lisa PCP: Lucretia ARAGON General: admitted to generalized weakness. denied fever, chills. HEENT: denied sore throat, rhinorrhea, ear pain. Cardiovascular: admitted to lower extremity swelling. denied chest pain, palpitations, syncope, diaphoresis. Respiratory: admitted shortness of breath. denied cough, sputum production, hemoptysis. Gastrointestinal: denied abdominal pain, nausea, vomiting, diarrhea, constipation, blood in stool. Genitourinary: denied dysuria, increased urinary frequency, hematuria, urinary incontinence, flank pain. Back: denied back pain. Musculoskeletal: admitted to lower extremity pain. denied joint pain, joint swelling. Neurological: denied headache, dizziness, numbness, tingling, weakness. Integumentary: denied rash, laceration, abrasion. Hematologic/Lymphatic: denied bruising or bleeding. PE Constitutional: Well-nourished, Well-developed, appearing stated age. obese. HEENT: head is normocephalic, atraumatic. EOMI. PERRLA. Neck: supple. Full ROM. Cardiovascular: regular heart rhythm. no murmurs. no pericardial friction rub. Respiratory: bibasilar fine crackles. no wheezing. no stridor. speaking full sentences. Gastrointestinal: soft, nontender. erythema to lower bilateral abdominal area without tenderness, no fluctuance, no induration. normal bowel sounds. no rebound, guarding, masses. Extremities: peripheral pulses intact. bilateral lower extremity edema, nonpitting, R>L. pain to palpation of bilateral LE. erythema to bilateral lower extremities extending from the ankles to the upper legs, and to the abdomen. Neurological: CN 2-12 grossly intact. moves all four extremities. Psych: awake, alert, oriented x3. follows commands. answers questions appropriately. Past History - Past Medical History Allergies/Adverse Reactions: Allergies Allergy/AdvReac Type Severity Reaction Status Date / Time Penicillins Allergy Severe Swelling Verified 07/26/19 18:50 clindamycin Allergy Mild Rash Verified 07/26/19 18:50 doxycycline Allergy Swelling Verified 07/26/19 18:50 levofloxacin [From Levaquin] Allergy Rash Verified 07/26/19 18:50 vancomycin AdvReac Mild Itching Verified 07/26/19 18:50 adhesive tape AdvReac "RIPS MY Verified 07/26/19 18:50 SKIN" Home Medications: Ambulatory Orders Ascorbate Calcium [Vitamin C] 1,000 mg PO DAILY 08/30/15 Cholecalciferol (Vitamin D3) [Vitamin D3] 1,000 unit PO BID 08/30/15 Cyanocobalamin [Vitamin B12 -] 1,000 mcg PO DAILY 08/30/15 Oxycodone/APAP [Percocet - Must Order Individual Components] 1 each NR QID PRN 08/30/15 Simvastatin 10 mg PO HS 08/30/15 Guaifenesin [Mucinex] 600 mg PO DAILY 06/20/17 Metoprolol Succinate [Toprol XL -] 50 mg PO BID #60 tab.sr 06/25/17 Diltiazem [Cardizem -] 360 mg PO DAILY 08/29/17 Furosemide [Lasix] 40 mg PO DAILY 08/29/17 Apixaban [Eliquis] 5 mg PO BID 04/22/19 Gabapentin [Neurontin] 400 mg PO TID 05/14/19 Hydroxychloroquine Sulfate 200 mg PO DAILY 05/14/19 Ranitidine HCl [Zantac] 150 mg PO BID 05/14/19 Nystatin Powder [Nystop Powder -] 1 applic TP TID PRN #1 applic 06/16/19 Amino Acids/Protein Hydrolys [Prosource No Carb Liquid Pkt] 30 ml PO DAILY@0800 #30 packet 07/22/19 Triamcinolone 0.1% Cream [Aristocort 0.1% Cream -] 1 applic TP BID #1 applic Anemia: No Asthma: No Cancer: No Cardiac Disorders: Yes (ATRIAL FIBRILLATION) CVA: No COPD: Yes (HOME O2 3L) CHF: Yes Dementia: No Diabetes: No GI Disorders: No Disorders: No HTN: Yes Hypercholesterolemia: Yes Liver Disease: No Seizures: No Thyroid Disease: Yes (LEFT THYROID LUMP) - Surgical History Abdominal Surgery: No Appendectomy: No Cardiac Surgery: No Cholecystectomy: No Lung Surgery: No Neurologic Surgery: No Orthopedic Surgery: Yes (BILATERAL KNEE REPLACEMENT) - Immunization History Immunization Up to Date: No - Suicide/Smoking/Psychosocial Hx Smoking History: Former smoker Have you smoked in the past 12 months: No Number of Cigarettes Smoked Daily: 0 If you are a former smoker, when did you quit?: 1985 Cigars Per Day: 0 Information on smoking cessation initiated: Yes 'Breaking Loose' booklet given: 08/30/17 Hx Alcohol Use: No Drug/Substance Use Hx: No Substance Use Type: None Hx Substance Use Treatment: No *Physical Exam - Vital Signs Last Vital Signs Temp Pulse Resp BP Pulse Ox 98 F 102 H 18 111/69 96 07/26/19 18:42 07/26/19 18:42 07/26/19 18:42 07/26/19 18:42 07/26/19 18:42 ED Treatment Course - LABORATORY CBC & Chemistry Diagram: 07/29/19 06:30 07/28/19 05:49 Medical Decision Making - Medical Decision Making 74 year old female with above PMH presented to ED for increasing lower extremity erythema/swelling, now extending to her lower abdomen. Initial Vital Signs Temp Pulse Resp BP Pulse Ox 98 F 102 H 18 111/69 96 07/26/19 18:42 07/26/19 18:42 07/26/19 18:42 07/26/19 18:42 07/26/19 18:42 Afebrile. Tachycardia. No tachypnea. No hypotension. No hypoxia on 2L O2 NC. Labs ordered: CBC, CMP, UA/UC, lactate, blood cultures, VBG, coags Imaging ordered: Bilateral duplex US, CXR Medications ordered: tylenol IV, normal saline bolus 1000 cc once, [id number] IV once, Daptomycin 700 mg IV once EKG performed at 1848: rate 104, irregularly irregular, mack/septal flattened Ts, otherwise no acute ST changes. 07/26/19 20:41 CBC WBC 10.3 K/mm3 (4.0-10.0) H 07/26/19 20:13 RBC 4.56 M/mm3 (3.60-5.2) 07/26/19 20:13 Hgb 12.7 GM/dL (10.7-15.3) 07/26/19 20:13 Hct 39.9 % (32.4-45.2) 07/26/19 20:13 MCV 87.5 fl (80-96) 07/26/19 20:13 MCH 27.8 pg (25.7-33.7) 07/26/19 20:13 MCHC 31.8 g/dl (32.0-36.0) L 07/26/19 20:13 RDW 17.2 % (11.6-15.6) H 07/26/19 20:13 Plt Count 246 K/MM3 (134-434) 07/26/19 20:13 MPV 8.9 fl (7.5-11.1) D 07/26/19 20:13 Absolute Neuts (auto) 8.1 K/mm3 (1.5-8.0) H 07/26/19 20:13 Neutrophils % 78.7 % (42.8-82.8) D 07/26/19 20:13 Lymphocytes % 11.2 % (8-40) D 07/26/19 20:13 Monocytes % 7.5 % (3.8-10.2) 07/26/19 20:13 Eosinophils % 1.9 % (0-4.5) 07/26/19 20:13 Basophils % 0.7 % (0-2.0) D 07/26/19 20:13 Nucleated RBC % 0 % (0-0) 07/26/19 20:13 Mild leukocytosis. Mild left shift. No thrombocytosis. 07/26/19 21:10 VBG - 7.43, increased HCO3, CO2 retention (similar to baseline, Hx COPD) CXR by my read: congestive changes. no infiltrate. -Pending official report 07/26/19 22:23 CMP Sodium 136 mmol/L (136-145) 07/26/19 20:13 Potassium 3.7 mmol/L (3.5-5.1) 07/26/19 20:13 Chloride 91 mmol/L (98-107) L 07/26/19 20:13 Carbon Dioxide 38 mmol/L (21-32) H 07/26/19 20:13 Anion Gap 6 MMOL/L (8-16) L 07/26/19 20:13 BUN 25.3 mg/dL (7-18) H 07/26/19 20:13 Creatinine 0.6 mg/dL (0.55-1.3) 07/26/19 20:13 Est GFR (CKD-EPI)AfAm 105.54 07/26/19 20:13 Est GFR (CKD-EPI)NonAf 91.06 07/26/19 20:13 Random Glucose 138 mg/dL (74-106) H 07/26/19 20:13 Lactic Acid 1.5 mmol/L (0.4-2.0) 07/26/19 19:21 Calcium 8.7 mg/dL (8.5-10.1) 07/26/19 20:13 Total Bilirubin 0.4 mg/dL (0.2-1) 07/26/19 20:13 AST 22 U/L (15-37) 07/26/19 20:13 ALT 29 U/L (13-61) 07/26/19 20:13 Alkaline Phosphatase 106 U/L (45-117) 07/26/19 20:13 Troponin I < 0.02 ng/ml (0.00-0.05) 07/26/19 20:13 B-Natriuretic Peptide 1428.6 pg/ml (5-125) H 07/26/19 20:13 Total Protein 6.4 g/dl (6.4-8.2) 07/26/19 20:13 Albumin 2.6 g/dl (3.4-5.0) L 07/26/19 20:13 No AKASH. No transaminitis. No lactic acidosis. Troponin wnl BNP mildly elevated Pt to be admitted for increasing cellulitis. Pending admission. 07/26/19 23:10 Sign out given to Dr. Telles, pt to be admitted under Dr. Hamilton's care. Pending admission. 07/26/19 23:45 US report: negative for DVT. 07/30/19 09:04 Follow up: Official CXR report: Name: [facility] DEPARTMENT OF RADIOLOGY Phys: Keya Barnhart RESIDENT : [id number] Age: 74 Sex: F [facility] Acct: [id number] Loc: [id number] Exam Date: 07/26/19 Status: [place] [address] Unit Number: [id number] EXAM#: TYPE/EXAM: RESULT: [id number] RAD/CHEST X-RAY PORTABLE* AP portable chest : Sepsis A single AP view of the chest reveals no change since 07/20/2019. Again noted is slight rotation to the right with large heart, sclerotic unfolded aorta , left hilar clips and clear lung zamora. An acute chest process is not seen. Reported By: Rocky Tovar MD 07/27/19 0701 *DC/Admit/Observation/Transfer Diagnosis at time of Disposition: Cellulitis - Discharge Dispostion Disposition: VNS/HOME HEALTH CARE Condition at time of disposition: Stable Decision to Admit order: Yes - Referrals - Patient Instructions - Post Discharge Activity
[2019-07-26] MEDS ORDERED: ACETAMINOPHEN 1000 MG/100 ML VIAL (NON FORMULARY) IVPB ONE (19:26)
[2019-07-26] MEDS ORDERED: SODIUM CHLORIDE 500 ML IV STA (19:26)
[2019-07-26 20:27] LABS: BASO % 0.7 % (0-2.0); EOS % 1.9 % (0-4.5); HEMATOCRIT 39.9 % (32.4-45.2); HEMOGLOBIN 12.7 GM/dL (10.7-15.3); LYMPH % 11.2 % (8-40); MCH 27.8 pg (25.7-33.7); MCHC 31.8 g/dl (32.0-36.0); MEAN CELL VOLUME 87.5 fl (80-96); MEAN PLT VOLUME 8.9 fl (7.5-11.1); MONO % 7.5 % (3.8-10.2); NEUT % 78.7 % (42.8-82.8); PLATELET COUNT 246 K/MM3 (134-434); RBC 4.56 M/mm3 (3.60-5.2); RDW 17.2 % (11.6-15.6); WHITE BLOOD COUNT 10.3 K/mm3 (4.0-10.0)
[2019-07-26] MEDS ORDERED: ACETAMINOPHEN INJECTION 100 ML IVPB ONE (20:35)
[2019-07-26 20:43] LABS: VENOUS PH 7.43 (7.31-7.41)
[2019-07-26 20:45] LABS: INR 1.41 (0.83-1.09); PROTHROMBIN TIME (PATIENT) 16.7 SEC (9.7-13.0)
[2019-07-26 20:45] LABS: VENOUS PO2 < 49 mmHg (28-48)
[2019-07-26 20:48] LABS: ACTIVATED PTT 33.1 SECONDS (25.2-36.5)
--- NOTE | 2019-07-26 21:10 | PDOC ---
Attending Attestation - Resident Resident Name: Keya Barnhart - ED Attending Attestation I have performed the following: I have examined & evaluated the patient, The case was reviewed & discussed with the resident, I agree w/resident's findings & plan, Exceptions are as noted - HPI HPI: 07/26/19 21:09 74-year-old morbidly obese female presents with lower extremity edema and erythema that extends to her abdomen - Physicial Exam PE: 07/26/19 21:12 obese 74-year-old female presents with complaint of bilateral erythema and erythema of her lower abdominal skin and legs head ncat Neck supple Lungs clear to auscultation bilaterally CVS regular rate and rhythm S1, S2 abdomen protuberant, pannus , with erythema on her lower abd, no rebound,no guarding extremities,erythema extending up to her thighs no flank tenderness neuro axox3 psych appropriate 07/26/19 21:44 - Medical Decision Making 07/26/19 23:30 admission for cellulitis /edema 07/26/19 23:30
[2019-07-26] MEDS ORDERED: DAPTOMYCIN 700 MG in SODIUM CHLORIDE 50 ML IVPB ONE (21:11)
[2019-07-26] MEDS ORDERED: AZTREONAM 2 GM in DEXTROSE 5%-WATER 100 ML IVPB ONE (21:12)
[2019-07-26 22:13] LABS: ALBUMIN 2.6 g/dl (3.4-5.0); BILIRUBIN,TOTAL 0.4 mg/dL (0.2-1); BLOOD UREA NITROGEN 25.3 mg/dL (7-18); CALCIUM 8.7 mg/dL (8.5-10.1); CREATININE 0.6 mg/dL (0.55-1.3); N-TERMINAL BNP 1428.6 pg/ml (5-125); POTASSIUM 3.7 mmol/L (3.5-5.1); TOT PROT 6.4 g/dl (6.4-8.2)
--- NOTE | 2019-07-26 22:54 | PN ---
Teaching Attending Note Name of Resident: Gemini Tolentino ATTENDING PHYSICIAN STATEMENT I saw and evaluated the patient. I reviewed the resident's note and discussed the case with the resident. I agree with the resident's findings and plan as documented. SUBJECTIVE: Patient is a 74 year old woman with a PMH of recurrent RLE Cellulitis, Obesity, ESBL Klebsiella Pneumoniae, Chronic venous stasis, Penicillin/multiple antibiotics allergy, MRSA (Bactrim resistant), Sjogrens syndrome, GERD, Afib ( on Eliquis), COPD (On Home O2 2-3L), CHF, HTN and Hyperlipidemia, who presents to the ER with worsening bilateral lower extremity swelling/redness for 1 week. Patient reports she was recently admitted to [facility] for bilateral LE cellulitis, was discharged without new medications. Patient reports shortness of breath and generalized weakness. Denies chest pain, palpitations, lightheadedness, nausea, vomiting, fever or abdominal pain. OBJECTIVE: Alert Vital Signs Period Temp Pulse Resp BP Sys/William Pulse Ox Last 24 Hr 98 F 102 18 111/69 96 HEENT: No Jaundice, eye redness or discharge, PERRLA, EOMI. Normocephalic, atraumatic. External ears are normal and hearing is grossly intact. No nasal discharge. Neck: Supple, nontender. No palpable adenopathy or thyromegaly. No JVD Chest: Good effort. Clear to auscultation and percussion. Heart: Irregularly irregular. No S3, rub or murmur Abdomen: Not distended, soft, nontender and no HSM. RLQ erythema. No rebound or guarding. Normal bowel sounds. Ext: Peripheral pulses intact. Leg edema. LE venous stasis changes and cellulitis with erythema up to the thighs and RLQ of abdomen Skin: Warm and dry. No petechiae, rash or ecchymosis. Sacral decubitus ulcer. Neuro: Alert. Oriented x3. CN 2-12 grossly intact. Sensation grossly intact in all four extremities and DTR are symmetric. Psych: Appropriate mood and affect. Good insight. Home Medications Medication Instructions Recorded Ascorbate Calcium [Vitamin C] 1,000 mg PO DAILY 08/30/15 Cholecalciferol (Vitamin D3) 1,000 unit PO BID 08/30/15 [Vitamin D3] Cyanocobalamin [Vitamin B12 -] 1,000 mcg PO DAILY 08/30/15 Oxycodone/APAP [Percocet - Must 1 each NR QID PRN 08/30/15 Order Individual Components] Simvastatin 10 mg PO HS 08/30/15 Guaifenesin [Mucinex] 600 mg PO DAILY 06/20/17 Metoprolol Succinate [Toprol XL -] 50 mg PO BID #60 tab.sr 06/25/17 Diltiazem [Cardizem -] 360 mg PO DAILY 08/29/17 Furosemide [Lasix] 40 mg PO DAILY 08/29/17 Apixaban [Eliquis] 5 mg PO BID 04/22/19 Gabapentin [Neurontin] 400 mg PO TID 05/14/19 Hydroxychloroquine Sulfate 200 mg PO DAILY 05/14/19 Ranitidine HCl [Zantac] 150 mg PO BID 05/14/19 Nystatin Powder [Nystop Powder -] 1 applic TP TID PRN #1 applic 06/16/19 Amino Acids/Protein Hydrolys 30 ml PO DAILY@0800 #30 packet 07/22/19 [Prosource No Carb Liquid Pkt] Triamcinolone 0.1% Cream 1 applic TP BID #1 applic 07/22/19 [Aristocort 0.1% Cream -] Abnormal Lab Results 07/26/19 07/26/19 07/26/19 20:13 20:13 20:13 WBC 10.3 H MCHC 31.8 L RDW 17.2 H Absolute Neuts (auto) 8.1 H PT with INR 16.70 H INR 1.41 H VBG pH POC VBG pCO2 POC VBG pO2 VBG HCO3 VBG Base Excess Chloride 91 L Carbon Dioxide 38 H Anion Gap 6 L BUN 25.3 H Random Glucose 138 H B-Natriuretic Peptide 1428.6 H Albumin 2.6 L 07/26/19 20:30 WBC MCHC RDW Absolute Neuts (auto) PT with INR INR VBG pH 7.43 H POC VBG pCO2 63.0 H POC VBG pO2 < 49 H VBG HCO3 40.9 H VBG Base Excess 14.0 H Chloride Carbon Dioxide Anion Gap BUN Random Glucose B-Natriuretic Peptide Albumin ASSESSMENT AND PLAN: 1. Lower extremity cellulitis/venous stasis - No DVT on doppler scan. Will treat with IV Daptomycin and Aztreonam. Elevate legs when in bed. Consult ID. CXR shows cardiomegaly with unfolded aorta but no significant infiltrates. ECHO from 07/15/19 was reported as technically difficult but LVEF and LV function were normal. EKG shows afib with rate of [address]-T wave changes. Will continue comprehensive care of all her comorbid conditions including Eliquis for Afib and care of decubitus ulcer. Continue frequent repositioning to prevent pressure ulcers. 2. Hypoalbuminemia - Possibly due to combined effects of malnutrition and inflammation associated with comorbid chronic conditions. Will ensure adequate dietary protein intake and also consult grill associate. 3. Obesity Counseled on the risks associated with obesity. Will provide patient all the necessary assistance, counseling and positive reinforcement to facilitate weight loss. Consult grill associate. 4. Hypertension - Restart suitable outpatient antihypertensive drugs when clinically appropriate. Revise regimen to ensure [id number] excellent BP control and summer camp counselor patient on the injurious effects of uncontrolled hypertension. Nonpharmacologic measures to control hypertension like weight loss , salt restriction and exercise discussed. Importance of adherence to treatment regimen and attainment of normotension emphasized. 5. DVT prophylaxis - On Eliquis for Afib. 6. Advance directives - Full code
--- NOTE | 2019-07-27 00:06 | HP ---
CHIEF COMPLAINT: B/L lower extremity erythema for the past 3 days PCP: Mike Giordano HISTORY OF PRESENT ILLNESS: The patient is a 74 year old female with PMH significant for HTN, HLD, CHF, COPD (on 2L O2 at home), Chronic LE Edema, and MRSA cellulitis (7x cellulitis related admissions at [facility] since 2009, last admission 07/10 - 07/22). She presented to the ER from home with complaints of B/L LE erythema for the past 3 days. She was last admitted to [facility] from 07/09 to 07/22. She was treated for cellulitis with Aztreonam and Daptomycin, since she is allergic to Penicillins, Clindamycin , Doxycycline, Levofloxacin, and Vancomycin. She states that she was wrapping her leg on Saturday night 07/23, when she noticed mild erythema below her knees. Over the next day, she noticed the erythema begin to spread to her RLQ on her abdomen on the right side, and to her upper thigh on the left. She noticed it was more erythematous than it was during her last admission, and also notes that the last 3 episodes of cellulitis have involved her lower abdomen as well, whereas previous episodes were limited to her thighs. She does not endorse any trauma or contact with any acutely ill people. She also complains of increased SOB over the past 3 days. She normally ambulates a few steps with the help of a walker at home, but has not been able to tolerate this level of activity the past few days. She has no associated orthopnea, PND, and uses 1 pillow to sleep at night. She complains of an associated headache that she has had for the past few weeks , which occurs occasionally right after she wakes up. It is sudden in onset, and is relieved by taking 2 Tylenols. She odes not complain of any associated fevers, chills, dizziness, palpitations , nausea, vomiting, dysuria, sore throat, or cough. ER course was notable for: (1) Ultrasound lower extremity: mild subcutaneous edema, no DVT (2) Azythromycin/Daptomycin started (3) WBC 10.3 Recent Travel: None PAST MEDICAL HISTORY: HTN, HLD, CHF, COPD (on 2L O2 at home), Chronic LE Edema, and MRSA cellulitis PAST SURGICAL HISTORY: Knee B/L 2006 2x L eye corneal transplants 2012 Rt leg wound 20 years ago Social History: Smoking: quit in 1984, smoked 2 packs/day for 20 eyars before that Alcohol: socially Drugs: none Family History: Maternal grandmother had a stroke at the age of 70 Allergies Penicillins Allergy (Severe, Verified 07/26/19 18:50) Swelling clindamycin Allergy (Mild, Verified 07/26/19 18:50) Rash doxycycline Allergy (Verified 07/26/19 18:50) Swelling levofloxacin [From Levaquin] Allergy (Verified 07/26/19 18:50) Rash vancomycin Adverse Reaction (Mild, Verified 07/26/19 18:50) Itching adhesive tape Adverse Reaction (Verified 07/26/19 18:50) "RIPS MY SKIN" HOME MEDICATIONS: Home Medications Medication Instructions Recorded Ascorbate Calcium [Vitamin C] 1,000 mg PO DAILY 08/30/15 Cholecalciferol (Vitamin D3) 1,000 unit PO BID 08/30/15 [Vitamin D3] Cyanocobalamin [Vitamin B12 -] 1,000 mcg PO DAILY 08/30/15 Oxycodone/APAP [Percocet - Must 1 each NR QID PRN 08/30/15 Order Individual Components] Simvastatin 10 mg PO HS 08/30/15 Guaifenesin [Mucinex] 600 mg PO DAILY 06/20/17 Metoprolol Succinate [Toprol XL -] 50 mg PO BID #60 tab.sr 06/25/17 Diltiazem [Cardizem -] 360 mg PO DAILY 08/29/17 Furosemide [Lasix] 40 mg PO DAILY 08/29/17 Apixaban [Eliquis] 5 mg PO BID 04/22/19 Gabapentin [Neurontin] 400 mg PO TID 05/14/19 Hydroxychloroquine Sulfate 200 mg PO DAILY 05/14/19 Ranitidine HCl [Zantac] 150 mg PO BID 05/14/19 Nystatin Powder [Nystop Powder -] 1 applic TP TID PRN #1 applic 06/16/19 Amino Acids/Protein Hydrolys 30 ml PO DAILY@0800 #30 packet 07/22/19 [Prosource No Carb Liquid Pkt] Triamcinolone 0.1% Cream 1 applic TP BID #1 applic 07/22/19 [Aristocort 0.1% Cream -] REVIEW OF SYSTEMS CONSTITUTIONAL: Absent: fever, chills, diaphoresis, generalized weakness, malaise, loss of appetite, weight change HEENT: Absent: rhinorrhea, nasal congestion, throat pain, throat swelling, difficulty swallowing, mouth swelling, ear pain, eye pain, visual changes CARDIOVASCULAR: irregular heart rate Absent: chest pain, syncope, palpitations, lightheadedness, peripheral edema RESPIRATORY: shortness of breath Absent: cough, dyspnea with exertion, orthopnea, wheezing, stridor, hemoptysis GASTROINTESTINAL: Absent: abdominal pain, abdominal distension, nausea, vomiting, diarrhea, constipation, melena, hematochezia GENITOURINARY: Absent: dysuria, frequency, urgency, hesitancy, hematuria, flank pain, genital pain MUSCULOSKELETAL: Absent: myalgia, arthralgia, joint swelling, back pain, neck pain SKIN: Absent: rash, itching, pallor HEMATOLOGIC/IMMUNOLOGIC: Absent: easy bleeding, easy bruising, lymphadenopathy, frequent infections ENDOCRINE: Absent: unexplained weight gain, unexplained weight loss, heat intolerance, cold intolerance NEUROLOGIC: headache Absent: focal weakness or paresthesias, dizziness, unsteady gait, seizure, mental status changes, bladder or bowel incontinence PSYCHIATRIC: Absent: anxiety, depression, suicidal or homicidal ideation, hallucinations. PHYSICAL EXAMINATION Vital Signs - 24 hr 07/26/19 07/26/19 18:42 23:27 Temperature 98 F Pulse Rate 102 H Pulse Rate [ 97 H Right] Respiratory 18 18 Rate Blood Pressure 111/69 Blood Pressure 118/73 [Right Arm] O2 Sat by Pulse 96 95 Oximetry (%) GENERAL: Awake, alert, and fully oriented, in no acute distress. HEAD: Normal with no signs of trauma. EYES: Pupils equal, round and reactive to light, extraocular movements intact, sclera anicteric, conjunctiva clear. No lid lag. EARS, NOSE, THROAT: Ears normal, nares patent, oropharynx clear without exudates. Moist mucous membranes. NECK: Normal range of motion, supple without lymphadenopathy, JVD, or masses. LUNGS: Breath sounds equal, clear to auscultation bilaterally. No wheezes, and no crackles. No accessory muscle use. HEART: Irregular rhythm, normal S1 and S2 without murmur, rub or gallop. ABDOMEN: Soft, nontender, not distended, normoactive bowel sounds, no guarding, no rebound, no masses. No hepatomegaly or splenomegaly. MUSCULOSKELETAL: Normal range of motion at all joints. No bony deformities or tenderness. No CVA tenderness. UPPER EXTREMITIES: 2+ pulses, warm, well-perfused. No cyanosis. No clubbing. No peripheral edema. LOWER EXTREMITIES: B/L warm, tender, erythema, upto RLQ of abdomen on right, up to lateral aspect of thigh on the left. No discharge. NEUROLOGICAL: Cranial nerves II-XII intact. Normal speech. PSYCHIATRIC: Cooperative. Good eye contact. Appropriate mood and affect. SKIN: Sacral decubitus ulcer present Laboratory Results - last 24 hr 07/26/19 07/26/19 07/26/19 19:21 20:13 20:13 WBC RBC Hgb Hct MCV MCH MCHC RDW Plt Count MPV Absolute Neuts (auto) Neutrophils % Lymphocytes % Monocytes % Eosinophils % Basophils % Nucleated RBC % PT with INR 16.70 H INR 1.41 H PTT (Actin FS) 33.1 VBG pH POC VBG pCO2 POC VBG pO2 VBG HCO3 VBG O2 Sat (Franny) VBG Base Excess Sodium Potassium Chloride Carbon Dioxide Anion Gap BUN Creatinine Est GFR (CKD-EPI)AfAm Est GFR (CKD-EPI)NonAf Random Glucose Lactic Acid 1.5 Calcium Total Bilirubin AST ALT Alkaline Phosphatase Troponin I < 0.02 B-Natriuretic Peptide Total Protein Albumin 07/26/19 07/26/19 07/26/19 20:13 20:13 20:30 WBC 10.3 H RBC 4.56 Hgb 12.7 Hct 39.9 MCV 87.5 MCH 27.8 MCHC 31.8 L RDW 17.2 H Plt Count 246 MPV 8.9 D Absolute Neuts (auto) 8.1 H Neutrophils % 78.7 D Lymphocytes % 11.2 D Monocytes % 7.5 Eosinophils % 1.9 Basophils % 0.7 D Nucleated RBC % 0 PT with INR INR PTT (Actin FS) VBG pH 7.43 H POC VBG pCO2 63.0 H POC VBG pO2 < 49 H VBG HCO3 40.9 H VBG O2 Sat (Franny) 73.3 VBG Base Excess 14.0 H Sodium 136 Potassium 3.7 Chloride 91 L Carbon Dioxide 38 H Anion Gap 6 L BUN 25.3 H Creatinine 0.6 Est GFR (CKD-EPI)AfAm 105.54 Est GFR (CKD-EPI)NonAf 91.06 Random Glucose 138 H Lactic Acid Calcium 8.7 Total Bilirubin 0.4 AST 22 ALT 29 Alkaline Phosphatase 106 Troponin I B-Natriuretic Peptide 1428.6 H Total Protein 6.4 Albumin 2.6 L ASSESSMENT/PLAN: 74 YO F with PMH of HTN, HLD, CHF, COPD (on 2L O2 at home), Chronic LE Edema, and recurrent cellulitis (last admission 07/10 - 07/22). She presented to the ER from home with complaints of B/L LE erythema for the past 3 days. #Cellulitis - WBC 10.3, monitor - US LE: mild subcutaneous edema, no DVT - Blood and urine cx ordered - Azythromycin/Daptomycin - ID Consult placed - Keep legs elevated #Sacral decubitus ulcer - Frequent repositioning #Hx of HTN - Cont home meds Toprol and Cardizem #Hx of HLD - Cont home med Simvastatin #Hx of CHF - Cont home med Lasix 40mg PO - Echo from 07/15 showed normal LVEF #Hx of AFib - EKG showed AFib with HR 104, no ST T wave chanegs - Cont home med Eliquis 5mg #Hx of COPD - Cont O2 (on 2L at home) #FEN - Na controlled diet #DVT PE - Patient on Eliquis at home, so no Lovenox or Heparin Visit type - Emergency Visit Emergency Visit: Yes ED Registration Date: 07/26/19 Care time: The patient presented to the Emergency Department on the above date and was hospitalized for further evaluation of their emergent condition. - New Patient This patient is new to me today: Yes Date on this admission: 07/27/19 - Critical Care Critical Care patient: No ATTENDING PHYSICIAN STATEMENT I saw and evaluated the patient. I reviewed the resident's note and discussed the case with the resident. I agree with the resident's findings and plan as documented. SUBJECTIVE: OBJECTIVE: ASSESSMENT AND PLAN:
[2019-07-27 02:41] VITALS: BMI 38.4
[2019-07-27] MEDS: GABAPENTIN 400 MG CAPSULE (FP) PO SCH ×3 (06:19→22:09)
[2019-07-27 08:23] LABS: ALBUMIN 2.3 g/dl (3.4-5.0); BILIRUBIN,TOTAL 0.4 mg/dL (0.2-1); BLOOD UREA NITROGEN 15.9 mg/dL (7-18); CALCIUM 8.6 mg/dL (8.5-10.1); CREATININE 0.4 mg/dL (0.55-1.3); POTASSIUM 3.6 mmol/L (3.5-5.1); TOT PROT 5.3 g/dl (6.4-8.2)
[2019-07-27 08:33] LABS: BASO % 0.3 % (0-2.0); EOS % 3.1 % (0-4.5); HEMATOCRIT 34.3 % (32.4-45.2); HEMOGLOBIN 11.1 GM/dL (10.7-15.3); LYMPH % 17.6 % (8-40); MCH 28.2 pg (25.7-33.7); MCHC 32.3 g/dl (32.0-36.0); MEAN CELL VOLUME 87.1 fl (80-96); MEAN PLT VOLUME 8.3 fl (7.5-11.1); MONO % 11.3 % (3.8-10.2); NEUT % 67.7 % (42.8-82.8); PLATELET COUNT 224 K/MM3 (134-434); RBC 3.94 M/mm3 (3.60-5.2); RDW 17.5 % (11.6-15.6); WHITE BLOOD COUNT 6.5 K/mm3 (4.0-10.0)
--- NOTE | 2019-07-27 09:17 | EKG ---
Test Reason : Blood Pressure : / mmHG Vent. Rate : 096 BPM Atrial Rate : 234 BPM P-R Int : 000 ms QRS Dur : 092 ms QT Int : 364 ms P-R-T Axes : 000 069 049 degrees QTc Int : 459 ms ATRIAL FIBRILLATION NONSPECIFIC ST ABNORMALITY ABNORMAL ECG WHEN COMPARED WITH ECG OF 26-JUL-2019 18:48, NO SIGNIFICANT CHANGE WAS FOUND Confirmed by KEO HOWARD MD ([id number]) on 07/27/2019 9:17:11 AM Referred By: Confirmed By:KEO HOWARD MD
[2019-07-27] MEDS ORDERED: dilTIAZem HCL 60 MG TABLET (FP) PO SCH (10:00)
[2019-07-27] MEDS: RANITIDINE HCL 150 MG TABLET (FP) PO SCH ×2 (10:28→22:09)
[2019-07-27] MEDS: APIXABAN 5 MG TABLET PO SCH ×2 (10:28→22:59)
[2019-07-27] MEDS: FUROSEMIDE 40 MG TABLET (FP) PO SCH (13:19)
--- NOTE | 2019-07-27 14:59 | PN ---
Physical Exam: SUBJECTIVE: Patient seen and examined, reports worsening leg and lower abdominal erythema, prompting her to come to the ED. OBJECTIVE: Vital Signs Period Temp Pulse Resp BP Sys/William Pulse Ox Last 24 Hr 98 F-98.2 F 89-115 18-20 110-118/55-73 94-96 Intake & Output 07/24/19 07/25/19 07/26/19 07/27/19 23:59 23:59 23:59 23:59 Intake Total 100 Balance 100 Weight 255 lb 244 lb 0.4 oz general: sitting in bed in no acute distress, no tachypnea or use of accessory muscles of respiration neck: soft, supple, no JVD Chest; no rales or wheezing, ] Abdomen:soft, obese, NT, almost resolved inguinal erythema, non tender Extremities: right lower abdominal wall erythema vs ?petechial lesions, Right leg some erythema, otherwise unchanged LE dermatitis pos pulses Psych: awake appropriate, pleasant, co-operative Laboratory Results - last 24 hr 07/26/19 07/26/19 07/26/19 19:21 20:13 20:13 WBC RBC Hgb Hct MCV MCH MCHC RDW Plt Count MPV Absolute Neuts (auto) Neutrophils % Lymphocytes % Monocytes % Eosinophils % Basophils % Nucleated RBC % PT with INR 16.70 H INR 1.41 H PTT (Actin FS) 33.1 VBG pH POC VBG pCO2 POC VBG pO2 VBG HCO3 VBG O2 Sat (Franny) VBG Base Excess Sodium Potassium Chloride Carbon Dioxide Anion Gap BUN Creatinine Est GFR (CKD-EPI)AfAm Est GFR (CKD-EPI)NonAf Random Glucose Lactic Acid 1.5 Calcium Total Bilirubin AST ALT Alkaline Phosphatase Troponin I < 0.02 B-Natriuretic Peptide Total Protein Albumin 07/26/19 07/26/19 07/26/19 20:13 20:13 20:30 WBC 10.3 H RBC 4.56 Hgb 12.7 Hct 39.9 MCV 87.5 MCH 27.8 MCHC 31.8 L RDW 17.2 H Plt Count 246 MPV 8.9 D Absolute Neuts (auto) 8.1 H Neutrophils % 78.7 D Lymphocytes % 11.2 D Monocytes % 7.5 Eosinophils % 1.9 Basophils % 0.7 D Nucleated RBC % 0 PT with INR INR PTT (Actin FS) VBG pH 7.43 H POC VBG pCO2 63.0 H POC VBG pO2 < 49 H VBG HCO3 40.9 H VBG O2 Sat (Franny) 73.3 VBG Base Excess 14.0 H Sodium 136 Potassium 3.7 Chloride 91 L Carbon Dioxide 38 H Anion Gap 6 L BUN 25.3 H Creatinine 0.6 Est GFR (CKD-EPI)AfAm 105.54 Est GFR (CKD-EPI)NonAf 91.06 Random Glucose 138 H Lactic Acid Calcium 8.7 Total Bilirubin 0.4 AST 22 ALT 29 Alkaline Phosphatase 106 Troponin I B-Natriuretic Peptide 1428.6 H Total Protein 6.4 Albumin 2.6 L 07/27/19 07/27/19 07/27/19 00:25 07:35 07:35 WBC 6.5 RBC 3.94 Hgb 11.1 Hct 34.3 MCV 87.1 MCH 28.2 MCHC 32.3 RDW 17.5 H Plt Count 224 MPV 8.3 Absolute Neuts (auto) 4.4 Neutrophils % 67.7 Lymphocytes % 17.6 D Monocytes % 11.3 H Eosinophils % 3.1 Basophils % 0.3 Nucleated RBC % 0 PT with INR INR PTT (Actin FS) VBG pH POC VBG pCO2 POC VBG pO2 VBG HCO3 VBG O2 Sat (Franny) VBG Base Excess Sodium 141 Potassium 3.6 Chloride 96 L Carbon Dioxide 43 H Anion Gap 2 L BUN 15.9 Creatinine 0.4 L Est GFR (CKD-EPI)AfAm 120.60 Est GFR (CKD-EPI)NonAf 104.06 Random Glucose 90 Lactic Acid 0.8 Calcium 8.6 Total Bilirubin 0.4 AST 14 L ALT 22 Alkaline Phosphatase 83 Troponin I B-Natriuretic Peptide Total Protein 5.3 L Albumin 2.3 L Active Medications Generic Name Dose Route Start Last Admin Trade Name Freq PRN Reason Stop Dose Admin Apixaban 5 mg 07/27/19 10:00 07/27/19 10:28 Eliquis - PO 5 mg BID BELL Administration Atorvastatin Calcium 10 mg 07/27/19 22:00 Lipitor - PO HS BELL Diltiazem HCl 360 mg 07/27/19 10:00 07/27/19 10:28 Cardizem Cd - PO 360 mg DAILY BELL Administration Furosemide 40 mg 07/27/19 10:00 07/27/19 13:19 Lasix - PO 40 mg DAILY BELL Administration Gabapentin 400 mg 07/27/19 06:00 07/27/19 13:19 Neurontin - PO 400 mg TID BELL Administration Aztreonam 2 gm/ Dextrose 100 mls @ 100 mls/hr 07/27/19 18:00 IVPB Q8H-IV BELL Protocol Metoprolol Succinate 50 mg 07/27/19 10:00 07/27/19 10:28 Toprol Xl - PO 50 mg BID BELL Administration Ranitidine HCl 150 mg 07/27/19 10:00 07/27/19 10:28 Zantac - PO 150 mg BID BELL Administration ASSESSMENT/PLAN: 74 year old woman with a history of atrial fib, OA, RA, Sjogren syndrome, chronic hypoxic respiratory failure, COPD, venous stasis dermatitis, recurrent RLE cellulitis recently discharged from hospital after prolonged course of aztreonam/daptomycin comes back with concerns for leg redness -?LE cellulitis vs dermatitis -[place]- forme dermatosis/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 recently discharged after prolonged course of aztreonam/daptomycin. Was seen by dermatology Dr. Lancaster, who did not lower extremity findings were contributory to her sepsis on recent presentation. 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 She was recommended good hygeine practices, trimacinolone creasm/PITER wraps and leg elevation, assisted living vs SNF for better care and felt her erythema could be from her long standing anti=coagulation. Recurrent admissions. Discussed with patient in detail, about concerns for poor care at home and agreable to discussing with CM about other options. Continue home lasix, diltiazem, metoprolol, ranitidine. Outpatient renal US in 3 months for known left renal mass. Plaquenil on hold [id number] Dispo pending clinical improvement and disposition arrangements. Visit type - Emergency Visit Emergency Visit: Yes ED Registration Date: 07/26/19 Care time: The patient presented to the Emergency Department on the above date and was hospitalized for further evaluation of their emergent condition. - New Patient This patient is new to me today: Yes Date on this admission: 07/27/19 - Critical Care Critical Care patient: No - Discharge Referral Referred to [facility] No
--- NOTE | 2019-07-27 15:50 | PN ---
Progress Note (short form) - Note Progress Note: ID CONSULT DICTATED
--- NOTE | 2019-07-27 15:56 | PN ---
Progress Note (short form) - Note Progress Note: ID CONSULT DICTATED ???RECURRENT CELLULITIS MULTIPLE ANTIBIOTIC ALLERGIES EMPIRIC DAPTOMYCIN/ AZTREONAM DERMATOLOGY F/U
[2019-07-27] MEDS: AZTREONAM 2 GM in DEXTROSE 5%-WATER 100 ML IVPB SCH (17:00)
--- NOTE | 2019-07-27 17:22 | CONS ---
DATE OF CONSULTATION: DATE OF DICTATION: 07/27/2019 This is the latest of many recent hospital admissions for this 74-year-old female for suspect recurrent cellulitis. She was discharged from the hospital approximately 3 days ago after a 12-day stay for recurrent cellulitis. Prior to that, she has had multiple consecutive hospital admissions for the same. She now presents with worsening erythema involving the right thigh area extending to the lower abdomen and right flank area. On her recent admission, erythema involved the left thigh. She is a 74-year-old female with a history of hypertension, hyperlipidemia, CHF, COPD, chronic lower extremity lymphedema. She has MRSA cellulitis, noted erythema extending from above the right knee to the right thigh, right flank, and right lower abdomen. She presented to the emergency room for further evaluation. She denied any associated fever or chills. No traumatic injury. She also complained of some increasing shortness of breath over the past several days. In the past, she has been treated with daptomycin and aztreonam, as she has MULTIPLE ANTIBIOTIC ALLERGIES. In addition, she was treated with steroids, with complete resolution of the skin findings. Patient recently completed a steroid taper at home and noted onset of erythema after completing the steroid course. Past medical history positive for hypertension, hyperlipidemia, CHF, COPD, lower extremity lymphedema. PAST SURGICAL HISTORY: Bilateral total knee replacements, corneal implants. SOCIAL HISTORY: Former smoker. Occasional EtOH. Resides at home. Has a home health aide. Allergies to PENICILLIN, CLINDAMYCIN, DOXYCYCLINE, LEVAQUIN, VANCOMYCIN. LABORATORY DATA: White count on admission 10.3, presently 6.5, hematocrit 34.3, platelets 224, BUN 15, creatinine 0.4. Cultures pending. PHYSICAL EXAMINATION: General: She is awake, in no acute distress. Vital Signs: Temperature 98.2. Blood pressure 111/56. Pulse 89j3 , regular. Respirations 20 per minute. Eyes: Sclerae anicteric. Heart Sounds: S1, S2. Lungs: Clear. Abdomen: Obese, soft, nontender. Extremities: Positive bilateral lower extremity edema with chronic venous stasis dermatitis of the lower extremities from below the knee to feet bilaterally. She has erythema and warmth present on the right anterior thigh extending to the right flank and the lower abdomen. It is warm to touch. No crepitus or fluctuance. No drainage. IMPRESSION: 1. ? recurrent cellulitis. 2. MULTIPLE ANTIBIOTIC ALLERGIES. Patient has responded to empiric antibiotic therapy and steroids in the past. Would seek dermatology opinion. Empiric antibiotic coverage with daptomycin and Azactam. Thank you for the kind referral. EFRAIN MOREJON M.D. GILSON/[id number]
[2019-07-27] MEDS ORDERED: AZTREONAM 2 GM in DEXTROSE 5%-WATER 100 ML IVPB SCH (18:00)
[2019-07-27] MEDS: DAPTOMYCIN 500 MG in SODIUM CHLORIDE 50 ML IVPB SCH (18:18)
[2019-07-27] MEDS ORDERED: oxyCODONE/APAP 1 EACH - MUST ORDER COMBO PRODUCT NR PRN (20:13)
[2019-07-27] MEDS ORDERED: oxyCODONE HCL 5 MG TABLET PO PRN (20:45)
[2019-07-27] MEDS ORDERED: ACETAMINOPHEN 325 MG TABLET (FP) PO PRN (20:45)
[2019-07-27] MEDS ORDERED: PT OWN MED DRAWER 7, Y5N ONE (20:48)
[2019-07-27] MEDS ORDERED: PATIENT'S OWN MEDICATION (NON-FORMULARY) (Simvastatin [Simvastatin] 10 MG) PO SCH (22:00)
[2019-07-27] MEDS ORDERED: ATORVASTATIN CA 10 MG TABLET (FP) PO SCH (22:00)
[2019-07-27] MEDS: NYSTATIN 100,000 UNIT/GM TOPICAL CREAM 15 GM TUBE TP SCH (22:59)
[2019-07-28] MEDS: AZTREONAM 2 GM in DEXTROSE 5%-WATER 100 ML IVPB SCH ×3 (01:05→17:56)
[2019-07-28] MEDS: GABAPENTIN 400 MG CAPSULE (FP) PO SCH ×3 (05:53→21:16)
[2019-07-28 06:33] LABS: BASO % 0.7 % (0-2.0); EOS % 4.9 % (0-4.5); HEMATOCRIT 33.9 % (32.4-45.2); LYMPH % 24.1 % (8-40); MCH 28.6 pg (25.7-33.7); MCHC 32.6 g/dl (32.0-36.0); MEAN PLT VOLUME 8.2 fl (7.5-11.1); MONO % 14.4 % (3.8-10.2); NEUT % 55.9 % (42.8-82.8); PLATELET COUNT 238 K/MM3 (134-434); RBC 3.86 M/mm3 (3.60-5.2); RDW 17.3 % (11.6-15.6); WHITE BLOOD COUNT 4.5 K/mm3 (4.0-10.0)
[2019-07-28] MEDS ORDERED: PT OWN MED DRAWER 7, Y5N ONE ×3 (06:36→17:50)
[2019-07-28 06:56] LABS: ALBUMIN 2.2 g/dl (3.4-5.0); BILIRUBIN,TOTAL 0.3 mg/dL (0.2-1); BLOOD UREA NITROGEN 12.5 mg/dL (7-18); CALCIUM 8.4 mg/dL (8.5-10.1); CREATININE 0.3 mg/dL (0.55-1.3); POTASSIUM 3.5 mmol/L (3.5-5.1); TOT PROT 5.4 g/dl (6.4-8.2)
[2019-07-28] MEDS: APIXABAN 5 MG TABLET PO SCH ×2 (10:22→21:16)
[2019-07-28] MEDS: RANITIDINE HCL 150 MG TABLET (FP) PO SCH ×2 (10:22→21:16)
[2019-07-28] MEDS: DAPTOMYCIN 500 MG in SODIUM CHLORIDE 50 ML IVPB SCH (10:22)
[2019-07-28] MEDS: FUROSEMIDE 40 MG TABLET (FP) PO SCH (10:22)
[2019-07-28] MEDS: NYSTATIN 100,000 UNIT/GM TOPICAL CREAM 15 GM TUBE TP SCH ×2 (10:30→21:15)
--- NOTE | 2019-07-28 12:48 | EKG ---
Test Reason : Blood Pressure : / mmHG Vent. Rate : 104 BPM Atrial Rate : 104 BPM P-R Int : 000 ms QRS Dur : 096 ms QT Int : 314 ms P-R-T Axes : 000 047 014 degrees QTc Int : 412 ms POOR DATA QUALITY, INTERPRETATION MAY BE ADVERSELY AFFECTED ATRIAL FIBRILLATION WITH RAPID VENTRICULAR RESPONSE ABNORMAL ECG WHEN COMPARED WITH ECG OF 10-JUL-2019 20:24, NO SIGNIFICANT CHANGE WAS FOUND Confirmed by Jose Roberto Tellez MD ([id number]) on 07/28/2019 12:48:27 PM Referred By: Confirmed By:Jose Roberto Tellez MD
--- NOTE | 2019-07-28 14:12 | PN ---
Physical Exam: SUBJECTIVE: Patient seen and examined, leg redness improved. tearful as worried about her family situation and finances. OBJECTIVE: Vital Signs Period Temp Pulse Resp BP Sys/William Pulse Ox Last 24 Hr 98.3 F-98.8 F 74-88 18-22 106-158/53-62 95 Intake & Output 07/25/19 07/26/19 07/27/19 07/28/19 23:59 23:59 23:59 23:59 Intake Total 600 100 Balance 600 100 Weight 255 lb 244 lb 0.4 oz General: sitting in bed in no acute distress, no tachypnea or use of accessory muscles of respiration Neck: soft, supple, no JVD Chest; no rales or wheezing, ] Abdomen:soft, obese, NT, almost resolved inguinal erythema, non tender Extremities: right lower abdominal wall erythema vs ?petechial lesions, Right leg some erythema markedly improved, otherwise unchanged LE dermatitis pos pulses Psych: awake appropriate, pleasant, co-operative Laboratory Results - last 24 hr 07/28/19 07/28/19 07/28/19 05:49 05:49 05:49 WBC 4.5 RBC 3.86 Hgb 11.0 Hct 33.9 MCV 88.0 MCH 28.6 MCHC 32.6 RDW 17.3 H Plt Count 238 MPV 8.2 Absolute Neuts (auto) 2.5 Neutrophils % 55.9 Lymphocytes % 24.1 D Monocytes % 14.4 H Eosinophils % 4.9 H Basophils % 0.7 Nucleated RBC % 0 Sodium 140 Potassium 3.5 Chloride 96 L Carbon Dioxide 41 H Anion Gap 3 L BUN 12.5 Creatinine 0.3 L Est GFR (CKD-EPI)AfAm 132.57 Est GFR (CKD-EPI)NonAf 114.39 Random Glucose 79 Hemoglobin A1c % 4.6 Calcium 8.4 L Magnesium 2.0 Total Bilirubin 0.3 AST 16 ALT 18 Alkaline Phosphatase 80 Total Protein 5.4 L Albumin 2.2 L Active Medications Generic Name Dose Route Start Last Admin Trade Name Freq PRN Reason Stop Dose Admin Acetaminophen 325 mg 07/27/19 20:45 07/27/19 20:55 Tylenol - PO 325 mg Q6H PRN Administration PAIN LEVEL 6-10 Apixaban 5 mg 07/27/19 10:00 07/28/19 10:22 Eliquis - PO 5 mg BID BELL Administration Diltiazem HCl 360 mg 07/27/19 10:00 07/28/19 10:22 Cardizem Cd - PO 360 mg DAILY BELL Administration Furosemide 40 mg 07/27/19 10:00 07/28/19 10:22 Lasix - PO 40 mg DAILY BELL Administration Gabapentin 400 mg 07/27/19 06:00 07/28/19 05:53 Neurontin - PO 400 mg TID BELL Administration Daptomycin 500 mg/ Sodium 50 mls @ 50 mls/hr 07/27/19 16:00 07/28/19 10:22 Chloride IVPB 50 mls/hr DAILY BELL Administration Protocol Aztreonam 2 gm/ Dextrose 100 mls @ 100 mls/hr 07/27/19 16:00 07/28/19 10:21 IVPB 100 mls/hr Q8H-IV BELL Administration Protocol Metoprolol Succinate 50 mg 07/27/19 10:00 07/28/19 10:22 Toprol Xl - PO 50 mg BID BELL Administration Nystatin 1 applic 07/27/19 22:00 07/28/19 10:30 Mycostatin Cream - TP 1 applic BID BELL Administration Oxycodone HCl 5 mg 07/27/19 20:45 07/27/19 20:54 Roxicodone - PO 5 mg Q6H PRN Administration PAIN 6-10 Ranitidine HCl 150 mg 07/27/19 10:00 07/28/19 10:22 Zantac - PO 150 mg BID BELL Administration Triamcinolone Acetonide 1 applic 07/28/19 11:30 Aristocort 0.5% Ointment - TP BID [facility] ASSESSMENT/PLAN: 74 year old woman with a history of atrial fib, OA, RA, Sjogren syndrome, chronic hypoxic respiratory failure, COPD, venous stasis dermatitis, recurrent RLE cellulitis recently discharged from hospital after prolonged course of aztreonam/daptomycin comes back with concerns for leg redness -?LE cellulitis vs dermatitis -[place]- forme dermatosis/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 recently discharged after prolonged course of aztreonam/daptomycin. Was seen by dermatology Dr. Lancaster, who did not lower extremity findings were contributory to her sepsis on recent presentation. 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 She was recommended good hygeine practices, trimacinolone creasm/PITER wraps and leg elevation, assisted living vs SNF for better care and felt her erythema could be from her long standing anti=coagulation. Recurrent admissions. Discussed with patient in detail, about concerns for poor care at home and agreable to discussing with CM about other options. Patient was open to SNF earlier but now declines and wants to go home given her family and financial concerns. Unclear if current leg findings suggest cellulitis. resume triamcinolone oint. Discussed with Dr. park if can dc abx and monitor x 24 hours, will follow up. Continue home lasix, diltiazem, metoprolol, ranitidine. Outpatient renal US in 3 months for known left renal mass. Plaquenil on hold [id number] Dispo in 24 hours pending ID input if no concerns. Discussed with patient and nursing. Visit type - Emergency Visit Emergency Visit: Yes ED Registration Date: 07/26/19 Care time: The patient presented to the Emergency Department on the above date and was hospitalized for further evaluation of their emergent condition. - New Patient This patient is new to me today: No - Critical Care Critical Care patient: No - Discharge Referral Referred to [facility] Med P.C.: No
[2019-07-28] MEDS: TRIAMCINOLONE ACET 0.5% OINT 15 GM TUBE TP SCH ×2 (15:44→21:15)
--- NOTE | 2019-07-28 17:46 | PN ---
Progress Note, Physician History of Present Illness: NO C/O LEG PAIN NO F/C - Current Medication List Current Medications: Active Medications Acetaminophen (Tylenol -) 325 mg PO Q6H PRN PRN Reason: PAIN LEVEL 6-10 Last Admin: 07/27/19 20:55 Dose: 325 mg Apixaban (Eliquis -) 5 mg PO BID [facility] Last Admin: 07/28/19 10:22 Dose: 5 mg Diltiazem HCl (Cardizem Cd -) 360 mg PO DAILY [facility] Last Admin: 07/28/19 10:22 Dose: 360 mg Furosemide (Lasix -) 40 mg PO DAILY [facility] Last Admin: 07/28/19 10:22 Dose: 40 mg Gabapentin (Neurontin -) 400 mg PO TID [facility] Last Admin: 07/28/19 14:55 Dose: 400 mg Daptomycin 500 mg/ Sodium (Chloride) 50 mls @ 50 mls/hr IVPB DAILY [facility]; Protocol Last Admin: 07/28/19 10:22 Dose: 50 mls/hr Aztreonam 2 gm/ Dextrose 100 mls @ 100 mls/hr IVPB Q8H-IV BELL; Protocol Last Admin: 07/28/19 10:21 Dose: 100 mls/hr Metoprolol Succinate (Toprol Xl -) 50 mg PO BID [facility] Last Admin: 07/28/19 10:22 Dose: 50 mg Nystatin (Mycostatin Cream -) 1 applic TP BID [facility] Last Admin: 07/28/19 10:30 Dose: 1 applic Oxycodone HCl (Roxicodone -) 5 mg PO Q6H PRN PRN Reason: PAIN 6-10 Last Admin: 07/27/19 20:54 Dose: 5 mg Ranitidine HCl (Zantac -) 150 mg PO BID [facility] Last Admin: 07/28/19 10:22 Dose: 150 mg Triamcinolone Acetonide (Aristocort 0.5% Ointment -) 1 applic TP BID [facility] Last Admin: 07/28/19 15:44 Dose: 1 applic - Objective Vital Signs: Vital Signs Temperature 97.9 F 07/28/19 14:21 Pulse Rate 73 07/28/19 14:21 Respiratory Rate 18 07/28/19 14:21 Blood Pressure 123/63 07/28/19 14:21 O2 Sat by Pulse Oximetry (%) 95 07/27/19 22:00 Constitutional: Yes: Obese Cardiovascular: Yes: Regular Rate and Rhythm, S1, S2 Respiratory: Yes: Diminished Gastrointestinal: Yes: Normal Bowel Sounds, Soft, Abdomen, Obese. No: Tenderness Extremities: Yes: Other (ERYTHEMA R LE/ ABDO NEARLY ALL RESOLVED) Labs: CBC, BMP 07/28/19 05:49 07/28/19 05:49 INR, PTT INR 1.41 (0.83-1.09) H 07/26/19 20:13 Assessment/Plan ???RECURRENT CELLULITIS ANTIBIOTIC ALLERGIES D/C ANTIBIOTICS AM D/C HOME AM OFF ANTIBIOTICS ? OUTPATIENT DERM OPINION
[2019-07-28] MEDS ORDERED: ACETAMINOPHEN 500 MG TABLET (FP) PO ONE (19:15)
[2019-07-29] MEDS ORDERED: PT OWN MED DRAWER 7, Y5N ONE ×3 (00:59→14:18)
[2019-07-29] MEDS: AZTREONAM 2 GM in DEXTROSE 5%-WATER 100 ML IVPB SCH ×2 (01:08→09:52)
[2019-07-29] MEDS: GABAPENTIN 400 MG CAPSULE (FP) PO SCH ×2 (05:56→14:58)
[2019-07-29 08:00] LABS: BASO % 0.7 % (0-2.0); HEMATOCRIT 36.8 % (32.4-45.2); LYMPH % 29.5 % (8-40); MCH 28.7 pg (25.7-33.7); MCHC 32.5 g/dl (32.0-36.0); MEAN CELL VOLUME 88.3 fl (80-96); MONO % 14.2 % (3.8-10.2); NEUT % 49.6 % (42.8-82.8); PLATELET COUNT 264 K/MM3 (134-434); RBC 4.17 M/mm3 (3.60-5.2); RDW 17.1 % (11.6-15.6); WHITE BLOOD COUNT 4.5 K/mm3 (4.0-10.0)
[2019-07-29 09:05] LABS: EPI CELLS 0.4 /HPF (0-5/HPF); HYALINE CASTS 0 /lpf (0-8); PH,URINE 5.5 (5.0-8.0); URINE APPEARANCE CLEAR; URINE BACTERIA 15.9 /hpf (NEGATIVE); URINE BILIRUBIN NEGATIVE (NEGATIVE); URINE COLOR YELLOW; URINE GLUCOSE (UA) NEGATIVE (NEGATIVE); URINE KETONE NEGATIVE (NEGATIVE); URINE LEUK ESTERASE 2+ (NEGATIVE); URINE NITRITE POSITIVE (NEGATIVE); URINE PROTEIN NEGATIVE (NEGATIVE); URINE UROBILINOGEN 0.2 mg/dL (0.2-1.0); URINE WBC 1 /hpf (0-5)
[2019-07-29] MEDS: APIXABAN 5 MG TABLET PO SCH (09:52)
[2019-07-29] MEDS: FUROSEMIDE 40 MG TABLET (FP) PO SCH (09:52)
[2019-07-29] MEDS: RANITIDINE HCL 150 MG TABLET (FP) PO SCH (09:52)
[2019-07-29] MEDS: DAPTOMYCIN 500 MG in SODIUM CHLORIDE 50 ML IVPB SCH (09:53)
[2019-07-29] MEDS: NYSTATIN 100,000 UNIT/GM TOPICAL CREAM 15 GM TUBE TP SCH (09:57)
[2019-07-29] MEDS: TRIAMCINOLONE ACET 0.5% OINT 15 GM TUBE TP SCH (10:00)
--- NOTE | 2019-07-29 11:08 | PN ---
Teaching Attending Note Name of Resident: Andrew Soares ATTENDING PHYSICIAN STATEMENT I saw and evaluated the patient. I reviewed the resident's note and discussed the case with the resident. I agree with the resident's findings and plan as documented. Seen and examined; please refer to resident note for further historical information. She is doing well with no complaints today. She is found to have a +UA with nitrite and LE; cx pending. Hemodynamics stable and no fevers overnight. Resident discussed case with Dr. Lee. She refused SNF and tells us that she has a home health aid. 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
[2019-07-29 11:53] LABS: URINE RBC 3 /hpf (0-4)
[2019-07-29 15:04] VITALS: BP 125/70; PULSE 74; TEMP 98.2
--- NOTE | 2019-07-29 21:59 | DS ---
Physical Exam: SUBJECTIVE: Patient seen and examined at bedside. No complaints. Wants to go home OBJECTIVE: Vital Signs Period Temp Pulse Resp BP Sys/William Pulse Ox Last 24 Hr 97.4 F-98.2 F 74-81 18-18 119-125/45-78 94-94 PHYSICAL EXAM Gen: NAD, AAOx3 HEENT: NCAT, EOMI Neck: supple, no jvd Cardio: rrr, normal s1s2, no mrg Pulm: cta b/l Abd: obese, nontender Ext: b/l dressings cdi LABS Laboratory Results - last 24 hr 07/29/19 07/29/19 06:30 08:00 WBC 4.5 RBC 4.17 Hgb 12.0 Hct 36.8 MCV 88.3 MCH 28.7 MCHC 32.5 RDW 17.1 H Plt Count 264 MPV 8.0 Absolute Neuts (auto) 2.2 Neutrophils % 49.6 Lymphocytes % 29.5 D Monocytes % 14.2 H Eosinophils % 6.0 H Basophils % 0.7 Nucleated RBC % 0 Urine Color Yellow Urine Appearance Clear Urine pH 5.5 Ur Specific Clare 1.010 Urine Protein Negative Urine Glucose (UA) Negative Urine Ketones Negative Urine Blood Negative Urine Nitrite Positive H Urine Bilirubin Negative Urine Urobilinogen 0.2 Ur Leukocyte Esterase 2+ H Urine WBC (Auto) 1 Urine RBC (Auto) 3 Urine Casts (Auto) 0 U Epithel Cells (Auto) 0.4 Urine Bacteria (Auto) 15.9 HOSPITAL COURSE: Date of Admission:07/26/19 Date of Discharge: 07/29/19 Pt is a 74 year old woman with a history of atrial fib, OA, RA, Sjogren syndrome , chronic hypoxic respiratory failure, COPD, venous stasis dermatitis, recurrent RLE cellulitis recently discharged from hospital after prolonged course of aztreonam/daptomycin comes back with concerns for leg redness Pt was admitted for possible cellulitis of the lower extremities. She was treated with IV abx and completed her course inpt. She was seen by ID. Her condition improved and Abx were d/c'ed. She had been seen by dermatology and was determined to have [place] forme dermatosis. Recommendation was made to send pt to SNF, but she refused and elected to go home with home health aid. Minutes to complete discharge: 30 Discharge Summary Reason For Visit: CELLULITIS Condition: Stable - Instructions Diet, Activity, Other Instructions: You were in the hospital because of cellulitis. You need to follow up with your primary care doctor within 1 week. You should also see the infectious diseases doctor, Dr. Fraga. You completed your antibiotics in the hospital. Continue your prior medications. If your symptoms get worse, return to the hospital. Referrals: Shirley Fraga MD [Staff Physician] - Disposition: HOME - Home Medications Comprehensive Discharge Medication List: Ambulatory Orders Ascorbate Calcium [Vitamin C] 1,000 mg PO DAILY 08/30/15 Cholecalciferol (Vitamin D3) [Vitamin D3] 1,000 unit PO BID 08/30/15 Cyanocobalamin [Vitamin B12 -] 1,000 mcg PO DAILY 08/30/15 Oxycodone/APAP [Percocet - Must Order Individual Components] 1 each NR QID PRN 08/30/15 Simvastatin 10 mg PO HS 08/30/15 Guaifenesin [Mucinex] 600 mg PO DAILY 06/20/17 Metoprolol Succinate [Toprol XL -] 50 mg PO BID #60 tab.sr 06/25/17 Diltiazem [Cardizem -] 360 mg PO DAILY 08/29/17 Furosemide [Lasix] 40 mg PO DAILY 08/29/17 Apixaban [Eliquis] 5 mg PO BID 04/22/19 Gabapentin [Neurontin] 400 mg PO TID 05/14/19 Hydroxychloroquine Sulfate 200 mg PO DAILY 05/14/19 Ranitidine HCl [Zantac] 150 mg PO BID 05/14/19 Nystatin Powder [Nystop Powder -] 1 applic TP TID PRN #1 applic 06/16/19 Amino Acids/Protein Hydrolys [Prosource No Carb Liquid Pkt] 30 ml PO DAILY@0800 #30 packet 07/22/19 Triamcinolone 0.1% Cream [Aristocort 0.1% Cream -] 1 applic TP BID #1 applic This patient is new to me today: No Emergency Visit: No Critical Care patient: No - Discharge Referral Referred to [facility] Med P.C.: No ATTENDING PHYSICIAN STATEMENT I saw and evaluated the patient. I reviewed the resident's note and discussed the case with the resident. I agree with the resident's findings and plan as documented. SUBJECTIVE: OBJECTIVE: ASSESSMENT AND PLAN:
== END 2019-07-29 15:51 | disposition home or self-care (01) | DRG 603 ==
LOC: JER 18:19 → JERBED 23:11 → J7W 07-27 01:16
PROVIDERS: ADMIT Internal Medicine; ATTEND Internal Medicine
DX: L03.115 Cellulitis of right lower limb (principal); J96.11 Chronic respiratory failure with hypoxia; I50.32 Chronic diastolic (congestive) heart failure; Z68.41 Body mass index [BMI] 40.0-44.9, adult; K21.9 Gastro-esophageal reflux disease without esophagitis; L03.116 Cellulitis of left lower limb; M35.00 Sjogren syndrome, unspecified; E66.9 Obesity, unspecified; E88.09 Other disorders of plasma-protein metabolism, not elsewhere classified; I48.91 Unspecified atrial fibrillation; B37.2 Candidiasis of skin and nail; L98.8 Other specified disorders of the skin and subcutaneous tissue; I48.2 Chronic atrial fibrillation; L89.151 Pressure ulcer of sacral region, stage 1; I11.0 Hypertensive heart disease with heart failure; E66.01 Morbid (severe) obesity due to excess calories; E78.5 Hyperlipidemia, unspecified
CPT/HCPCS: 36415; 71045-TC-FY; 80053; 81003; 82803; 83036; 83605; 83735; 83880; 84484; 85025; 85610; 85730; 87040; 87077; 87086; 93005; 93010; 93970-TC; 99282-25; J0131; J0878; J7030

== ENCOUNTER 2019-09-30 12:32 | Inpatient (IN) | payer OTHER, MEDICARE ==
[2019-09-30 14:01] LABS: BASO % 0.5 % (0-2.0); EOS % 0.6 % (0-4.5); LYMPH % 5.3 % (8-40); MCHC 31.6 g/dl (32.0-36.0); MEAN PLT VOLUME 8.2 fl (7.5-11.1); MONO % 5.4 % (3.8-10.2); NEUT % 88.2 % (42.8-82.8); PLATELET COUNT 170 K/MM3 (134-434); RBC 4.63 M/mm3 (3.60-5.2); RDW 15.6 % (11.6-15.6); WHITE BLOOD COUNT 10.8 K/mm3 (4.0-10.0)
[2019-09-30 14:06] LABS: MEAN CELL VOLUME 82.2 fl (80-96)
--- NOTE | 2019-09-30 14:28 | PDOC ---
Documentation entered by Shaheen Kirk SCRIBE, acting as scribe for Huong Aguilar MD. Huong Aguilar MD: This documentation has been prepared by the Reagan stringer Xhesika, SCRIBE, under my direction and personally reviewed by me in its entirety. I confirm that the documentation accurately reflects all work, treatment, procedures, and medical decision making performed by me. History of Present Illness - General Chief Complaint: Wound Stated Complaint: LEG PAIN Time Seen by Provider: 09/30/19 13:06 History Source: Patient - History of Present Illness Initial Comments: 09/30/19 13:25 HPI Patient is a 74 year old female with a significant past medical history of HTN, HLD, chronic venous stasis, peripheral neuropathy, CHF, atrial fibrillation on Eliquis, UTI ESBL, cellulitis MRSA (Bactrim resistant), GERD, COPD on home O2 (2 -3L), and obesity who presents to ED for L leg pain, swelling, and redness for several days, worsening overnight. Pt reported she has been admitted to [facility] several times in the past for similar complaints. Patient notes she is seen by Dr. Gonzalez for wound care, last visited last week for RLE wound care.. has history of frequent cellulitis, multiple allergies to abx noted. Denies fever, chills, chest pain, SOB, palpitation, dizziness, weakness, N, V, D , abdominal pain, bladder and bowel problems, No sick contacts or travel. No new changes in medications. Allergies: PCN, Doxycyline, Clindamycin, Levaquin, Vancomycin Past Medical History: see HPI Social history: Lives with family. No tobacco, ETOH or drug use. Surgical history: b/l knee replacements Meds: as documented in EMR PCP: Dr. Boykin Review of systems Constitutional: no fevers or chills. No weakness HEENT: no headache or dizziness. No congestion. No visual/hearing disturbances. CVS: no cp or syncope. Resp: no sob. No cough. Gastrointestinal: no abdominal pain, nausea, vomiting, diarrhea. Genitourinary: no urinary sx, hematuria. MUSCULOSKELETAL: No joint pain and swelling. No neck or back pain. SKIN:+ L calf pain, +left leg pain/ swelling, and redness. +leg wounds. Hematologic: no easy bruising/bleeding. NEUROLOGIC: No headache, dizziness, LOC or altered mental status. No weakness, numbness or tingling. Psych: no anxiety or depression Allergic/Immunologic: no allergies All other systems reviewed and negative, or as documented in HPI. Physical exam General: Well appearing, awake and alert, NAD. HEENT: NCAT, PERRL, EOMI, clear conjunctiva, anicteric, moist mucus membranes, clear oropharynx, no oral lesions.. Neck: neck supple, FROM Resp: CTAB, normal and even respirations, no respiratory distress, on nasal cannula chronically CVS: irregularly irregular, no murmurs, 2+ peripheral pulses throughout, no peripheral edema Abdomen: soft, obese, no rebound or guarding. Back: nontender, normal inspection and ROM MSK: no edema, GALDAMEZ x4, ROM intact. No clubbing or cyanosis. normal bulk and tone. Extremities: no calf tenderness Neuro: alert, oriented appropriately; no focal neurologic deficits Psych: Calm and cooperative Skin: warm and well perfused, cap refill <2 sec, BLE venous stasis/dermatitis appearance, chronic ulcers to right lower calf and funes with granulation tissue. LLE erythematous, very warm to touch and tender from calf up to thighs and proximal limb, erythema spreads to lower abdomen. 09/30/19 14:22 09/30/19 16:21 Past History - Past Medical History Allergies/Adverse Reactions: Allergies Allergy/AdvReac Type Severity Reaction Status Date / Time Penicillins Allergy Severe Swelling Verified 07/26/19 18:50 clindamycin Allergy Mild Rash Verified 07/26/19 18:50 doxycycline Allergy Swelling Verified 07/26/19 18:50 levofloxacin [From Levaquin] Allergy Rash Verified 07/26/19 18:50 vancomycin AdvReac Mild Itching Verified 07/26/19 18:50 adhesive tape AdvReac "RIPS MY Verified 07/26/19 18:50 SKIN" Home Medications: Ambulatory Orders Ascorbate Calcium [Vitamin C] 1,000 mg PO DAILY 08/30/15 Cholecalciferol (Vitamin D3) [Vitamin D3] 1,000 unit PO BID 08/30/15 Cyanocobalamin [Vitamin B12 -] 1,000 mcg PO DAILY 08/30/15 Oxycodone/APAP [Percocet - Must Order Individual Components] 1 each NR QID PRN 08/30/15 Simvastatin 10 mg PO HS 08/30/15 Guaifenesin [Mucinex] 600 mg PO DAILY 06/20/17 Metoprolol Succinate [Toprol XL -] 50 mg PO BID #60 tab.sr 06/25/17 Furosemide [Lasix] 40 mg PO Q48H 08/29/17 Apixaban [Eliquis] 5 mg PO BID 04/22/19 Gabapentin [Neurontin] 400 mg PO TID 05/14/19 Hydroxychloroquine Sulfate 200 mg PO DAILY 05/14/19 Ranitidine HCl [Zantac] 150 mg PO BID 05/14/19 Nystatin Powder [Nystop Powder -] 1 applic TP TID PRN #1 applic 06/16/19 Acetaminophen [Tylenol] 2 tab PO Q6H PRN 09/23/19 Dexamethasone [Decadron] 0.5 mg PO DAILY #100 tablet 09/23/19 Anemia: No Asthma: No Cancer: No Cardiac Disorders: Yes (ATRIAL FIBRILLATION) CVA: No COPD: Yes (HOME O2 3L) CHF: Yes Dementia: No Diabetes: No GI Disorders: No Disorders: No HTN: Yes Hypercholesterolemia: Yes Liver Disease: No Seizures: No Thyroid Disease: Yes (LEFT THYROID LUMP, Hard of hearing, OA, RA, spinal stenosis) - Surgical History Abdominal Surgery: No Appendectomy: No Cardiac Surgery: No Cholecystectomy: No Lung Surgery: No Neurologic Surgery: No Orthopedic Surgery: Yes (BILATERAL KNEE REPLACEMENT) - Immunization History Immunization Up to Date: No - Psycho Social/Smoking Cessation Hx Smoking History: Former smoker Have you smoked in the past 12 months: No Number of Cigarettes Smoked Daily: 0 If you are a former smoker, when did you quit?: 1985 Cigars Per Day: 0 Information on smoking cessation initiated: No 'Breaking Loose' booklet given: 08/30/17 Hx Alcohol Use: No Drug/Substance Use Hx: No Substance Use Type: None Hx Substance Use Treatment: No *Physical Exam - Vital Signs Last Vital Signs Temp Pulse Resp BP Pulse Ox 97.4 F L 99 H 20 107/82 100 09/30/19 12:38 09/30/19 12:38 09/30/19 12:38 09/30/19 12:38 09/30/19 13:00 Heart Score/ECG Review #1 ECG reviewed & interpreted by me at: 13:25 General ECG Interpretation: Normal Rate, Normal Intervals Compared to previous ECG there are: No significant change 09/30/19 14:25 atrial fibrillation at 96 bpm, nonspecific T wave abnormalities ED Treatment Course - LABORATORY CBC & Chemistry Diagram: 09/30/19 13:49 09/30/19 13:49 - ADDITIONAL ORDERS Additional order review: 09/30/19 13:49 RBC 4.63 MCV 82.2 D MCHC 31.6 L RDW 15.6 MPV 8.2 Neutrophils % 88.2 H D Lymphocytes % 5.3 L D Monocytes % 5.4 Eosinophils % 0.6 D Basophils % 0.5 - RADIOLOGY Radiology Studies Ordered: Category Date Time Status DUPLEX VASCUL US-2LEGS [US] Stat Ultrasound 09/30/19 13:30 Ordered Medical Decision Making - Medical Decision Making 09/30/19 14:25 Vital Signs Temp Pulse Resp BP Pulse Ox 97.4 F L 99 H 20 107/82 100 09/30/19 12:38 09/30/19 12:38 09/30/19 12:38 09/30/19 12:38 09/30/19 13:00 DDX cellulitis, DVT, superficial thrombophlebitis, infection, bacteremia, nec fasciitis, electrolyte/metabolic derangements VS noted, no fever, HD appropriate duplex neg for b/l DVTs. - already on AC eliquis. labs and lytes ok, very mild leukocytosis 10.8K, CRP elevated, ESR wnl. similarly elevated crp, nonspecific. IV abx - previously on aztreonam and daptomycin given multiple allergies will start on aztreonam again cultures pending. admit to medical service for acute cellulitis, with risk factors including comorbidities, multiple allergies noted, does have h/o MRSA AND wounds, so will need daptomycin , defer to ID to dose and given due to vanco allergy admitting to Dr Rabago service, s/o to Dr Schaeffer 09/30/19 16:20 09/30/19 16:21 Discharge - Discharge Information Problems reviewed: Yes Clinical Impression/Diagnosis: Cellulitis Qualifiers: Site of cellulitis: extremity Site of cellulitis of extremity: lower extremity Laterality: left Qualified Code(s): L03.116 - Cellulitis of left lower limb Condition: Fair - Admission Yes - Follow up/Referral - Patient Discharge Instructions - Post Discharge Activity
[2019-09-30 14:36] LABS: ALBUMIN 2.8 g/dl (3.4-5.0); BILIRUBIN,TOTAL 0.5 mg/dL (0.2-1); BLOOD UREA NITROGEN 14.2 mg/dL (7-18); CALCIUM 8.5 mg/dL (8.5-10.1); CREATININE 0.4 mg/dL (0.55-1.3); POTASSIUM 5.3 mmol/L (3.5-5.1); TOT PROT 6.4 g/dl (6.4-8.2)
--- NOTE | 2019-09-30 15:09 | EKG ---
Test Reason : Blood Pressure : / mmHG Vent. Rate : 096 BPM Atrial Rate : 098 BPM P-R Int : 000 ms QRS Dur : 082 ms QT Int : 336 ms P-R-T Axes : 000 056 040 degrees QTc Int : 424 ms ATRIAL FIBRILLATION ABNORMAL ECG WHEN COMPARED WITH ECG OF 26-JUL-2019 22:11, NO SIGNIFICANT CHANGE WAS FOUND Confirmed by KEO HOWARD MD ([id number]) on 09/30/2019 3:09:12 PM Referred By: Confirmed By:KEO HOWARD MD
[2019-09-30] MEDS ORDERED: AZTREONAM 1 GM in DEXTROSE 5%-WATER - 50 ML IVPB ONE (15:56)
[2019-09-30] MEDS ORDERED: AZTREONAM 1 GM VIAL (RESTRICTED TO ID) ONE (16:04)
--- NOTE | 2019-09-30 16:27 | HP ---
CHIEF COMPLAINT: My leg is red PPCP: Mike Giordano HISTORY OF PRESENT ILLNESS: 74 yo female with PMH of HTN, HLD, CHF, COPD (on 2L O2 at home), Chronic LE Edema, and MRSA cellulitis (7x cellulitis related admissions at [facility] since 2009) , RA, Sjogren's syndrome who presents from home due to worsening lower extremity edema and erythema most notably over this past night. Pt has previously been here and has had multiple admissions for her erythema and it was deemed last time after dermatology consult that she has terra firma forme dermatosis. Pt was seeing Dr. Gonzalez for wound care and was prescribed a Decadron taper (3 mg tomorrow, 2mg x4 days, 1mg x7 days; 09/23/19). She reports the steroids were helping, until last night she noted her edema and erythem worsened with tracking to her abdomen. Pt reports having multipl allergies with differing severities to the below antibiotics. She was previously treated with Azactam and Daptomycin on her previous admission. Pt is a former smoker, never diabetic. Recent Travel: None PAST MEDICAL HISTORY: HTN, HLD, CHF, COPD (on 2L O2 at home), Chronic LE Edema, and MRSA cellulitis PAST SURGICAL HISTORY: Knee B/L 2006 2x L eye corneal transplants 2012 Rt leg wound 20 years ago Social History: Smoking: quit in 1984, smoked 2 packs/day for 20 eyars before that Alcohol: socially Drugs: none Family History: Maternal grandmother had a stroke at the age of 70 Allergies Penicillins Allergy (Severe, Verified 07/26/19 18:50) Swelling clindamycin Allergy (Mild, Verified 07/26/19 18:50) Rash doxycycline Allergy (Verified 07/26/19 18:50) Swelling levofloxacin [From Levaquin] Allergy (Verified 07/26/19 18:50) Rash vancomycin Adverse Reaction (Mild, Verified 07/26/19 18:50) Itching adhesive tape Adverse Reaction (Verified 07/26/19 18:50) "RIPS MY SKIN" HOME MEDICATIONS: Home Medications Medication Instructions Recorded Ascorbate Calcium [Vitamin C] 1,000 mg PO DAILY 08/30/15 Cholecalciferol (Vitamin D3) 1,000 unit PO BID 08/30/15 [Vitamin D3] Cyanocobalamin [Vitamin B12 -] 1,000 mcg PO DAILY 08/30/15 Oxycodone/APAP [Percocet - Must 1 each NR QID PRN 08/30/15 Order Individual Components] Simvastatin 10 mg PO HS 08/30/15 Guaifenesin [Mucinex] 600 mg PO DAILY 06/20/17 Metoprolol Succinate [Toprol XL -] 50 mg PO BID #60 tab.sr 06/25/17 Furosemide [Lasix] 40 mg PO Q48H 08/29/17 Apixaban [Eliquis] 5 mg PO BID 04/22/19 Gabapentin [Neurontin] 400 mg PO TID 05/14/19 Hydroxychloroquine Sulfate 200 mg PO DAILY 05/14/19 Ranitidine HCl [Zantac] 150 mg PO BID 05/14/19 Nystatin Powder [Nystop Powder -] 1 applic TP TID PRN #1 applic 06/16/19 Acetaminophen [Tylenol] 2 tab PO Q6H PRN 09/23/19 Dexamethasone [Decadron] 0.5 mg PO DAILY #100 tablet 09/23/19 REVIEW OF SYSTEMS CONSTITUTIONAL: Absent: fever, chills, diaphoresis, generalized weakness, malaise, loss of appetite, weight change HEENT: Absent: rhinorrhea, nasal congestion, throat pain, throat swelling, difficulty swallowing, mouth swelling, ear pain, eye pain, visual changes CARDIOVASCULAR: Absent: chest pain, syncope, palpitations, irregular heart rate, lightheadedness , peripheral edema RESPIRATORY: Absent: cough, shortness of breath, dyspnea with exertion, orthopnea, wheezing, stridor, hemoptysis GASTROINTESTINAL: Absent: abdominal pain, abdominal distension, nausea, vomiting, diarrhea, constipation, melena, hematochezia GENITOURINARY: Absent: dysuria, frequency, urgency, hesitancy, hematuria, flank pain, genital pain MUSCULOSKELETAL: Absent: myalgia, arthralgia, joint swelling, back pain, neck pain SKIN: Absent: rash, itching, pallor HEMATOLOGIC/IMMUNOLOGIC: Absent: easy bleeding, easy bruising, lymphadenopathy, frequent infections ENDOCRINE: Absent: unexplained weight gain, unexplained weight loss, heat intolerance, cold intolerance NEUROLOGIC: Absent: headache, focal weakness or paresthesias, dizziness, unsteady gait, seizure, mental status changes, bladder or bowel incontinence PSYCHIATRIC: Absent: anxiety, depression, suicidal or homicidal ideation, hallucinations. PHYSICAL EXAMINATION Vital Signs - 24 hr 09/30/19 09/30/19 12:38 13:00 Temperature 97.4 F L Pulse Rate 99 H Respiratory 20 Rate Blood Pressure 107/82 O2 Sat by Pulse 100 100 Oximetry (%) PE General: NAD, Well appearing, awake and alert HEENT: NCAT, BROOKS, EOMI, sclera anicteric, MMM, no mucosal ulcerations LUNG: CTA b/l with good inspiratory effort, no wheezes or rales. on NC 2L CARD: irregularly irregular with normal rate, no murmurs appreciated Abdomen: soft, obese, NT/ND, normoactive BS, no rebound or guarding. Extremities: no calf tenderness, cap refill <2sec. SEE SKIN EXAM Psych: Calm and cooperative Skin: Venous stasis changes appreciated around leg, chronic ulcerations on R calf and anterolateral region with granulation tissue note. LLE with increased erythema compared to R and hot. Tracking erythema up to thigh and lower abdomen. Laboratory Results - last 24 hr 09/30/19 09/30/19 09/30/19 13:34 13:49 13:49 WBC 10.8 H RBC 4.63 Hgb 12.0 Hct 38.0 MCV 82.2 D MCH 26.0 MCHC 31.6 L RDW 15.6 Plt Count 170 D MPV 8.2 Absolute Neuts (auto) 9.6 H Neutrophils % 88.2 H D Lymphocytes % 5.3 L D Monocytes % 5.4 Eosinophils % 0.6 D Basophils % 0.5 Nucleated RBC % 0 ESR 22 Sodium 139 Potassium 5.3 H Chloride 100 Carbon Dioxide 37 H Anion Gap 2 L BUN 14.2 Creatinine 0.4 L Est GFR (CKD-EPI)AfAm 120.60 Est GFR (CKD-EPI)NonAf 104.06 Random Glucose 93 Lactic Acid Calcium 8.5 Total Bilirubin 0.5 AST 37 ALT 32 Alkaline Phosphatase 91 C-Reactive Protein 8.9 H Total Protein 6.4 Albumin 2.8 L 09/30/19 14:11 WBC RBC Hgb Hct MCV MCH MCHC RDW Plt Count MPV Absolute Neuts (auto) Neutrophils % Lymphocytes % Monocytes % Eosinophils % Basophils % Nucleated RBC % ESR Sodium Potassium Chloride Carbon Dioxide Anion Gap BUN Creatinine Est GFR (CKD-EPI)AfAm Est GFR (CKD-EPI)NonAf Random Glucose Lactic Acid 1.0 Calcium Total Bilirubin AST ALT Alkaline Phosphatase C-Reactive Protein Total Protein Albumin ASSESSMENT/PLAN: Acute Cellulitis with history of MRSA Mild Leukocytosis 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 COPD on 2L chronic oxygen History of HTN History of HLD HFrEF not in exacerbation --Given Aztreonam in ED --Will need Daptomycin given allergies and allergies --Consult ID --Monitor erythema and tracking to proximal limbs --Mild leukocytosis but afebrile at this point --BCx pending; to f/u --Pain control with Tylenol and Oxycodone 5mg (as per home medication) --Unclear why patient not on maintenance COPD medications --Can start Symbicort and Spiriva for maintenance --Maintain SpO2 88-92% --Continue home medications as below: Eliquis 5mg BID Metoprolol 50mg BID CArdizem 360mg qdaily Gabapentin 400mg TID for neuropathic pain FEN: Fluids: None Electrolyte abnormalities: Mild hyperkalemia; no ECG abnormalities Nutrition: Regular diet PPX: DVT - Already on Eliquis GI - Pepcid per home medications Dispo: Admit M/S; isolation for MRSA contact Case discussed Rocky Schaeffer DO - IM PGy-3 Visit type - Emergency Visit Emergency Visit: Yes ED Registration Date: 09/30/19 Care time: The patient presented to the Emergency Department on the above date and was hospitalized for further evaluation of their emergent condition. - New Patient This patient is new to me today: Yes Date on this admission: 09/30/19 - Critical Care Critical Care patient: No ATTENDING PHYSICIAN STATEMENT I saw and evaluated the patient. I reviewed the resident's note and discussed the case with the resident. I agree with the resident's findings and plan as documented. SUBJECTIVE: OBJECTIVE: ASSESSMENT AND PLAN:
--- NOTE | 2019-09-30 16:40 | PN ---
Teaching Attending Note Name of Resident: Rocky Schaeffer ATTENDING PHYSICIAN STATEMENT I saw and evaluated the patient. I reviewed the resident's note and discussed the case with the resident. I agree with the resident's findings and plan as documented. 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 OBJECTIVE: Vital Signs Period Temp Pulse Resp BP Sys/William Pulse Ox Last 24 Hr 97.4 F 99 20 107/82 100-100 GENERAL: The patient is awake, alert, and fully oriented, in no acute distress. LUNGS: Breath sounds equal, clear to auscultation bilaterally, no wheezes, no crackles, no accessory muscle use. HEART: Irregularly irregular. ABDOMEN: Obese, soft, nontender, nondistended, normoactive bowel sounds, no guarding, no rebound, no hepatosplenomegaly, no masses. EXTREMITIES: 2+ pulses, warm, well-perfused. Chronic changes of lower legs. Left leg erythematous and warm. Laboratory Tests 09/30/19 09/30/19 09/30/19 13:34 13:49 13:49 WBC 10.8 H RBC 4.63 Hgb 12.0 Hct 38.0 MCV 82.2 D MCH 26.0 MCHC 31.6 L RDW 15.6 Plt Count 170 D MPV 8.2 Absolute Neuts (auto) 9.6 H Neutrophils % 88.2 H D Lymphocytes % 5.3 L D Monocytes % 5.4 Eosinophils % 0.6 D Basophils % 0.5 Nucleated RBC % 0 ESR 22 Sodium 139 Potassium 5.3 H Chloride 100 Carbon Dioxide 37 H Anion Gap 2 L BUN 14.2 Creatinine 0.4 L Est GFR (CKD-EPI)AfAm 120.60 Est GFR (CKD-EPI)NonAf 104.06 Random Glucose 93 Lactic Acid Calcium 8.5 Total Bilirubin 0.5 AST 37 ALT 32 Alkaline Phosphatase 91 C-Reactive Protein 8.9 H Total Protein 6.4 Albumin 2.8 L 09/30/19 14:11 WBC RBC Hgb Hct MCV MCH MCHC RDW Plt Count MPV Absolute Neuts (auto) Neutrophils % Lymphocytes % Monocytes % Eosinophils % Basophils % Nucleated RBC % ESR Sodium Potassium Chloride Carbon Dioxide Anion Gap BUN Creatinine Est GFR (CKD-EPI)AfAm Est GFR (CKD-EPI)NonAf Random Glucose Lactic Acid 1.0 Calcium Total Bilirubin AST ALT Alkaline Phosphatase C-Reactive Protein Total Protein Albumin Home Medications Medication Instructions Recorded Ascorbate Calcium [Vitamin C] 1,000 mg PO DAILY 08/30/15 Cholecalciferol (Vitamin D3) 1,000 unit PO BID 08/30/15 [Vitamin D3] Cyanocobalamin [Vitamin B12 -] 1,000 mcg PO DAILY 08/30/15 Oxycodone/APAP [Percocet - Must 1 each NR QID PRN 08/30/15 Order Individual Components] Simvastatin 10 mg PO HS 08/30/15 Guaifenesin [Mucinex] 600 mg PO DAILY 06/20/17 Metoprolol Succinate [Toprol XL -] 50 mg PO BID #60 tab.sr 06/25/17 Furosemide [Lasix] 40 mg PO Q48H 08/29/17 Apixaban [Eliquis] 5 mg PO BID 04/22/19 Gabapentin [Neurontin] 400 mg PO TID 05/14/19 Hydroxychloroquine Sulfate 200 mg PO DAILY 05/14/19 Ranitidine HCl [Zantac] 150 mg PO BID 05/14/19 Nystatin Powder [Nystop Powder -] 1 applic TP TID PRN #1 applic 06/16/19 Acetaminophen [Tylenol] 2 tab PO Q6H PRN 09/23/19 Dexamethasone [Decadron] 0.5 mg PO DAILY #100 tablet 09/23/19 ASSESSMENT AND PLAN: This is a 74 year old woman with a history of atrial fib, HTN, hyperlipidemia, chronic diastolic heart failure, chronic hypoxic respiratory failure, COPD, venous stasis dermatitis, 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 1. Recurrent leg cellulitis - Given Aztreonam in ED. Will add Daptomycin - ID consult 2. Chronic diastolic heart failure - Stable 3. Terra firma-forme dermatosis of legs 4. Left renal pole mass 5. Rheumatoid arthritis/Sjogren syndrome - Continue Plaquenil 6. Osteoarthritis 7. Chronic hypoxic respiratory failure secondary to COPD - Continue oxygen to maintain saturation >90% 8. Atrial fibrillation, permanent - Continue Toprol XL, Cardizem, Eliquis 9. Morbid obesity
[2019-09-30 17:15] LABS: INR 1.35 (0.83-1.09)
[2019-09-30 17:17] LABS: ACTIVATED PTT 32.2 SECONDS (25.2-36.5)
[2019-09-30] MEDS ORDERED: FLU VACCINE QUAD 60 MCG/0.5 ML (MDV 19-20) IM ONE (18:20)
[2019-09-30] MEDS: oxyCODONE HCL 5 MG TABLET PO PRN (18:30)
[2019-09-30] MEDS: ACETAMINOPHEN 325 MG TABLET (FP) PO PRN (18:31)
[2019-09-30] MEDS ORDERED: ATORVASTATIN CA 10 MG TABLET (FP) PO SCH (22:00)
[2019-09-30] MEDS: DAPTOMYCIN 500 MG in SODIUM CHLORIDE 50 ML IVPB SCH (22:15)
[2019-09-30] MEDS: APIXABAN 5 MG TABLET PO SCH (22:15)
[2019-09-30] MEDS: GABAPENTIN 400 MG CAPSULE (FP) PO SCH (22:16)
[2019-09-30] MEDS: METOPROLOL TARTRATE 50 MG TABLET (FP) PO SCH (22:16)
[2019-10-01] MEDS: AZTREONAM 2 GM in DEXTROSE 5%-WATER 100 ML IVPB SCH ×3 (02:17→18:48)
[2019-10-01] MEDS: GABAPENTIN 400 MG CAPSULE (FP) PO SCH ×3 (06:21→22:35)
[2019-10-01 08:27] LABS: HEMATOCRIT 41.4 % (32.4-45.2); MCH 26.1 pg (25.7-33.7); MCHC 31.3 g/dl (32.0-36.0); MEAN CELL VOLUME 83.2 fl (80-96); MEAN PLT VOLUME 8.4 fl (7.5-11.1); PLATELET COUNT 142 K/MM3 (134-434); RBC 4.98 M/mm3 (3.60-5.2); RDW 15.5 % (11.6-15.6); WHITE BLOOD COUNT 5.3 K/mm3 (4.0-10.0)
[2019-10-01 08:30] LABS: CALCIUM 8.6 mg/dL (8.5-10.1); CREATININE 0.4 mg/dL (0.55-1.3); MAGNESIUM 1.9 mg/dL (1.8-2.4); POTASSIUM 4.7 mmol/L (3.5-5.1)
--- NOTE | 2019-10-01 08:50 | CONSULT ---
Consult - text type - Consultation Consultation Note: 74 year old woman with chronic stasis dermatitis of both legs, worse on right side. I saw her in my office last week with increased redness and several small wounds of right calf. In addition to usual pressure bandage a short course of steroids was ordered. The right leg improved but she developed redness of the left leg and abdominal wall. No fever or chills. On exam the right calf has 2 small open superficial wounds < 2 cm with clean base and no erythema. Left calf no redness, chronic dermatatis. Patchy redness in upper thigh and lower abdominal wall. Imp: Improving dermatitis of both legs, small stasis wounds on right calf.New rash of abdominal wall, possibly fungal. Rec: Alginate dressings, PITER wraps. ID and Dermatology to evaluate.
--- NOTE | 2019-10-01 09:05 | PN ---
Progress Note (short form) - Note Progress Note: ID CONSULT DICTATED ? RECURRENT CELLULITIS LE/ LOWER ABDOMEN HX STEROID-RESPONSIVE DERMATITIS MULTIPLE ANTIBIOTIC ALLERGIES EMPIRIC AZTREONAM/ DAPTOMYCIN ( TOLERATED IN PAST ) DERMATOLOGY EVALUATION
[2019-10-01] MEDS ORDERED: PT OWN MED DRAWER 7, Y5N ONE ×2 (09:46→12:17)
[2019-10-01] MEDS: guaiFENesin 600 MG TABLET.ER (FP) PO SCH (10:00)
[2019-10-01] MEDS: METOPROLOL TARTRATE 50 MG TABLET (FP) PO SCH ×2 (10:00→22:35)
[2019-10-01] MEDS: APIXABAN 5 MG TABLET PO SCH ×2 (10:00→22:35)
[2019-10-01] MEDS: FUROSEMIDE 40 MG TABLET (FP) PO SCH (10:00)
[2019-10-01] MEDS: DAPTOMYCIN 500 MG in SODIUM CHLORIDE 50 ML IVPB SCH (10:22)
[2019-10-01] MEDS: HYDROXYCHLOROQUINE SO4 200 MG TABLET (FP) PO SCH (10:41)
--- NOTE | 2019-10-01 11:36 | PN ---
Teaching Attending Note Name of Resident: Rocky Schaeffer ATTENDING PHYSICIAN STATEMENT I saw and evaluated the patient. I reviewed the resident's note and discussed the case with the resident. I agree with the resident's findings and plan as documented. SUBJECTIVE: Complained of left heel and right thorax with complaint OBJECTIVE: Vital Signs Temperature 97.6 F 10/01/19 10:00 Pulse Rate 90 10/01/19 10:00 Respiratory Rate 20 10/01/19 10:00 Blood Pressure 120/74 10/01/19 10:00 O2 Sat by Pulse Oximetry (%) 8 L 10/01/19 09:00 General: Elderly woman, comfortable, not in distress HEENT; mucous membranes moist, no anemia, no jaundice, PERRLA, no nystagmus Neck: No JVD, supple, no bruit, thyroid palpably normal, normal carotid pulsations. Chest: Nontender, clear to auscultation bilaterally/bilateral wheezing/ bilateral basal rales. CVS: S1-S2 regular/irregular no murmur/gallop/rub Abdomen: Nondistended, soft, bowel sounds present. Extremities: Extensive venous stasis changes, right lower extremity oozing ulcers, left lower extremity swelling erythema and warmth, poor circulation FORM GRADER: AO X3 , no gross motor sensory deficit CBC, BMP 10/01/19 06:59 10/01/19 06:59 Active Medications Acetaminophen (Tylenol -) 650 mg PO Q4H PRN PRN Reason: FEVER Last Admin: 09/30/19 18:31 Dose: 650 mg Apixaban (Eliquis -) 5 mg PO BID [facility] Last Admin: 10/01/19 10:00 Dose: 5 mg Bupropion HCl (Wellbutrin Xl -) 150 mg PO DAILY [facility] Last Admin: 10/01/19 10:00 Dose: 150 mg Diltiazem HCl (Cardizem Cd -) 360 mg PO DAILY [facility] Furosemide (Lasix -) 40 mg PO DAILY [facility] Last Admin: 10/01/19 10:00 Dose: 40 mg Gabapentin (Neurontin -) 400 mg PO TID [facility] Last Admin: 10/01/19 06:21 Dose: 400 mg Guaifenesin (Mucinex -) 600 mg PO DAILY [facility] Last Admin: 10/01/19 10:00 Dose: 600 mg Hydroxychloroquine Sulfate (Plaquenil -) 200 mg PO DAILY [facility] Aztreonam 2 gm/ Dextrose 100 mls @ 100 mls/hr IVPB Q8H-IV [facility]; Protocol Last Admin: 10/01/19 10:22 Dose: 100 mls/hr Daptomycin 500 mg/ Sodium (Chloride) 50 mls @ 100 mls/hr IVPB DAILY [facility]; Protocol Last Admin: 10/01/19 10:22 Dose: 100 mls/hr Metoprolol Tartrate (Lopressor -) 50 mg PO BID [facility] Last Admin: 10/01/19 10:00 Dose: 50 mg Oxycodone HCl (Roxicodone -) 5 mg PO Q4H PRN PRN Reason: PAIN LEVEL 7 - 10 Last Admin: 09/30/19 18:30 Dose: 5 mg ASSESSMENT AND PLAN:74 yo female with PMH of atrial fibrillation. HTN, HLD, CHF , COPD (on 2L O2 at home), Chronic LE Edema, and MRSA cellulitis (7x cellulitis related admissions at [facility] since 2009), RA, Sjogren's syndrome who presents from home due to worsening lower extremity edema and erythema m consistent with left lower extremity cellulitis. 1. Left lower extremity cellulitis: Patient admitted with left lower external knee pain warmth swelling consistent with cellulitis considering previous history of MRSA and multiple regularity patient is on daptomycin and Azactam, will follow up ID recommendations and cultures. 2. Diastolic heart failure, at present compensated continue Lasix and diltiazem patient is on apixaban 3. Jorgen syndrome. Continue Plaquenil 4. Hypertension. Well-controlled continue home medications. 5. Chronic venous insufficiency.: Continue 6. Atrial fibrillation: Rate controlled continue anticoagulation with apixaban and diltiazem and metoprolol for rate control
--- NOTE | 2019-10-01 11:47 | CONS ---
INFECTIOUS DISEASE CONSULTATION DATE OF CONSULTATION: DATE OF DICTATION: 10/01/2019 The patient is a 74-year-old, morbidly obese female with a history of recurrent lower extremity and abdominal cellulitis, now readmitted with left lower extremity pain, swelling, and erythema. The patient has had multiple recent hospitalizations for cellulitis of the lower extremities and abdomen. She has pretty much been admitted on a monthly basis for this condition. Each time, she responds to a course of empiric antibiotic therapy and steroids. However, returns with recurrent cellulitis. She was seen last week in her vascular surgeon's office where she was noted to have some swelling and erythema of the right lower extremity. She was treated with a short course of steroids. That resolved. She now presents with several-day history of worsening left lower extremity erythema, warmth, and swelling. She was seen in the emergency room where she was empirically treated with antibiotics. Today, she reports significant improvement with almost-complete resolution of the erythema of the left lower extremity and left foot. She does, however, continue to have an area of erythema involving the lower abdomen. She denies any associated fever or chills. No reports of any traumatic injury or any local injections. She has had a history of drug-resistant pathogens in the past and has MULTIPLE ANTIBIOTIC ALLERGIES. She has been seen in the outpatient setting by Dermatology. PAST MEDICAL HISTORY: Positive for hypertension, hyperlipidemia, chronic venous stasis dermatitis, peripheral neuropathy, congestive heart failure, COPD. PAST SURGICAL HISTORY: Status post bilateral total knee replacements. ALLERGIES: PENICILLIN, DOXYCYCLINE, CLINDAMYCIN, LEVAQUIN, VANCOMYCIN. LABORATORY DATA: White count 5.3, hematocrit 41.4, platelets 142. Creatinine 0.4. Blood cultures pending. ESR 22. C-reactive protein 8.9. PHYSICAL EXAMINATION: General: She is morbidly obese. She is not acutely toxic appearing. Vital Signs: Temperature 97.6; blood pressure 120/74; pulse 90, regular; respirations 20 per minute. HEENT: Sclerae anicteric. Heart: Sounds S1, S2. Lungs: Clear. Abdomen: Obese, soft, nontender. There is erythema involving the lower abdomen in the suprapubic area, extending across both lower quadrants. Lower Extremities: Positive for chronic venous stasis dermatitis. There is a superficial ulceration present on the right calf, which does not appear to be infected. There is no appreciable erythema or warmth of the lower extremities bilaterally. IMPRESSION: 1. Recurrent cellulitis. 2. History of steroid-responsive dermatitis. 3. History of MULTIPLE ANTIBIOTIC ALLERGIES. 4. History of multi-drug resistant pathogens. 5. Morbid obesity. Await cultures. Continue empiric antibiotic coverage with daptomycin and Azactam which she has tolerated in the past. Dermatology evaluation. Thank you for the kind referral. EFRAIN MOREJON M.D. [id number]
[2019-10-01] MEDS: ACETAMINOPHEN 325 MG TABLET (FP) PO PRN (15:10)
--- NOTE | 2019-10-01 16:52 | PN ---
Progress Note (short form) - Note Progress Note: HPI: Pt reports improvement of her leg. Still has lower extremity pain. No fevers/chills noted Vital Signs Temperature 98.6 F 10/01/19 14:48 Pulse Rate 81 10/01/19 14:48 Respiratory Rate 19 10/01/19 14:48 Blood Pressure 104/57 L 10/01/19 14:48 O2 Sat by Pulse Oximetry (%) 8 L 10/01/19 09:00 PE: General: NAD, Well appearing, awake and alert HEENT: NCAT, BROOKS, EOMI, sclera anicteric, MMM, no mucosal ulcerations LUNG: CTA b/l with good inspiratory effort, no wheezes or rales. on NC 2L CARD: irregularly irregular with normal rate, no murmurs appreciated Abdomen: soft, obese, NT/ND, normoactive BS, no rebound or guarding. Extremities: no calf tenderness, cap refill <2sec. SEE SKIN EXAM Psych: Calm and cooperative Skin: Venous stasis changes appreciated around leg, RLE ulceration weeping without exudate noted. LLE erythema improved with remaining areas, hot, tracking has resolved, TTP noted. Strong pulses b/l CBC, BMP 10/01/19 06:59 10/01/19 06:59 Active Medications Acetaminophen (Tylenol -) 650 mg PO Q4H PRN PRN Reason: FEVER Last Admin: 10/01/19 15:10 Dose: 650 mg Apixaban (Eliquis -) 5 mg PO BID [facility] Last Admin: 10/01/19 10:00 Dose: 5 mg Bupropion HCl (Wellbutrin Xl -) 150 mg PO DAILY [facility] Last Admin: 10/01/19 10:00 Dose: 150 mg Diltiazem HCl (Cardizem Cd -) 360 mg PO DAILY [facility] Furosemide (Lasix -) 40 mg PO DAILY [facility] Last Admin: 10/01/19 10:00 Dose: 40 mg Gabapentin (Neurontin -) 400 mg PO TID [facility] Last Admin: 10/01/19 15:10 Dose: 400 mg Guaifenesin (Mucinex -) 600 mg PO DAILY [facility] Last Admin: 10/01/19 10:00 Dose: 600 mg Hydroxychloroquine Sulfate (Plaquenil -) 200 mg PO DAILY [facility] Last Admin: 10/01/19 10:41 Dose: 200 mg Aztreonam 2 gm/ Dextrose 100 mls @ 100 mls/hr IVPB Q8H-IV [facility]; Protocol Last Admin: 10/01/19 10:22 Dose: 100 mls/hr Daptomycin 500 mg/ Sodium (Chloride) 50 mls @ 100 mls/hr IVPB DAILY [facility]; Protocol Last Admin: 10/01/19 10:22 Dose: 100 mls/hr Metoprolol Tartrate (Lopressor -) 50 mg PO BID [facility] Last Admin: 10/01/19 10:00 Dose: 50 mg Oxycodone HCl (Roxicodone -) 5 mg PO Q4H PRN PRN Reason: PAIN LEVEL 7 - 10 Last Admin: 09/30/19 18:30 Dose: 5 mg ASSESSMENT/PLAN: Acute Cellulitis with history of MRSA Mild Leukocytosis 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 COPD on 2L chronic oxygen History of HTN History of HLD HFrEF not in exacerbation --Given Aztreonam in ED --Will need Daptomycin given allergies and allergies --Consult ID --Monitor erythema and tracking to proximal limbs --Mild leukocytosis but afebrile at this point --BCx pending; to f/u --Pain control with Tylenol and Oxycodone 5mg (as per home medication) --Unclear why patient not on maintenance COPD medications --Can start Symbicort and Spiriva for maintenance --Maintain SpO2 88-92% --Continue home medications as below: Eliquis 5mg BID Metoprolol 50mg BID CArdizem 360mg qdaily Gabapentin 400mg TID for neuropathic pain FEN: Fluids: None Electrolyte abnormalities: Mild hyperkalemia; no ECG abnormalities Nutrition: Regular diet PPX: DVT - Already on Eliquis GI - Pepcid per home medications Dispo: Admit M/S; isolation for MRSA contact Case discussed Rocky Schaeffer, DO - IM PGy-3
[2019-10-02] MEDS ORDERED: PT OWN MED DRAWER 7, Y5N ONE ×3 (00:54→17:46)
[2019-10-02] MEDS: AZTREONAM 2 GM in DEXTROSE 5%-WATER 100 ML IVPB SCH ×3 (01:17→17:52)
[2019-10-02] MEDS ORDERED: guaiFENesin 200 MG/10 ML 10 ML UNIT-DOSE CUPS PO PRN (01:41)
[2019-10-02] MEDS: ACETAMINOPHEN 325 MG TABLET (FP) PO PRN ×2 (01:53→10:55)
[2019-10-02] MEDS: GABAPENTIN 400 MG CAPSULE (FP) PO SCH ×3 (05:56→21:58)
[2019-10-02 07:14] LABS: HEMATOCRIT 38.7 % (32.4-45.2); HEMOGLOBIN 12.2 GM/dL (10.7-15.3); MCHC 31.6 g/dl (32.0-36.0); MEAN CELL VOLUME 82.4 fl (80-96); MEAN PLT VOLUME 8.4 fl (7.5-11.1); PLATELET COUNT 198 K/MM3 (134-434); RBC 4.69 M/mm3 (3.60-5.2); RDW 15.4 % (11.6-15.6); WHITE BLOOD COUNT 5.9 K/mm3 (4.0-10.0)
[2019-10-02 07:49] LABS: BLOOD UREA NITROGEN 22.2 mg/dL (7-18); CALCIUM 8.5 mg/dL (8.5-10.1); CREATININE 0.5 mg/dL (0.55-1.3); MAGNESIUM 1.8 mg/dL (1.8-2.4); POTASSIUM 4.1 mmol/L (3.5-5.1)
--- NOTE | 2019-10-02 07:50 | PN ---
Progress Note (short form) - Note Progress Note: HPI: No acute events overnight. No new complaints today. No fevers, no chills. Leg continues to improve Vital Signs Temperature 98.3 F 10/02/19 19:29 Pulse Rate 74 10/02/19 19:29 Respiratory Rate 18 10/02/19 19:29 Blood Pressure 112/64 10/02/19 19:29 O2 Sat by Pulse Oximetry (%) 99 10/02/19 09:00 PE: General: NAD, Well appearing, awake and alert HEENT: NCAT, BROOKS, EOMI, sclera anicteric, MMM, no mucosal ulcerations LUNG: CTA b/l with good inspiratory effort, no wheezes or rales. on NC 2L CARD: irregularly irregular with normal rate, no murmurs appreciated Abdomen: soft, obese, NT/ND, normoactive BS, no rebound or guarding. Extremities: no calf tenderness, cap refill <2sec. SEE SKIN EXAM Psych: Calm and cooperative Skin: Venous stasis changes appreciated around leg, RLE ulceration not observed due to new dressing; no drainage noted. LLE erythema improved, temperature has returned to normal, no TTP. Strong pulses b/l CBC, BMP 10/02/19 06:10 10/02/19 06:10 Microbiology 09/30/19 13:49 Blood - Peripheral Venous Blood Culture - Preliminary NO GROWTH OBTAINED AFTER 48 HOURS, INCUBATION TO CONTINUE FOR 3 DAYS. 09/30/19 13:47 Blood - Peripheral Venous Blood Culture - Preliminary NO GROWTH OBTAINED AFTER 48 HOURS, INCUBATION TO CONTINUE FOR 3 DAYS. Active Medications Acetaminophen (Tylenol -) 650 mg PO Q4H PRN PRN Reason: FEVER Last Admin: 10/02/19 10:55 Dose: 650 mg Apixaban (Eliquis -) 5 mg PO BID [facility] Last Admin: 10/02/19 09:44 Dose: 5 mg Bupropion HCl (Wellbutrin Xl -) 150 mg PO DAILY [facility] Last Admin: 10/02/19 09:44 Dose: 150 mg Diltiazem HCl (Cardizem Cd -) 360 mg PO DAILY [facility] Last Admin: 10/02/19 09:44 Dose: 360 mg Furosemide (Lasix -) 40 mg PO DAILY [facility] Last Admin: 10/02/19 09:47 Dose: Not Given Gabapentin (Neurontin -) 400 mg PO TID [facility] Last Admin: 10/02/19 15:08 Dose: 400 mg Guaifenesin (Mucinex -) 600 mg PO DAILY [facility] Last Admin: 10/02/19 09:44 Dose: 600 mg Guaifenesin (Robitussin -) 10 ml PO Q4H PRN PRN Reason: COUGH Last Admin: 10/02/19 01:54 Dose: 10 ml Hydroxychloroquine Sulfate (Plaquenil -) 200 mg PO DAILY [facility] Last Admin: 10/02/19 09:43 Dose: 200 mg Aztreonam 2 gm/ Dextrose 100 mls @ 100 mls/hr IVPB Q8H-IV [facility]; Protocol Last Admin: 10/02/19 17:52 Dose: 100 mls/hr Daptomycin 500 mg/ Sodium (Chloride) 50 mls @ 100 mls/hr IVPB DAILY [facility]; Protocol Last Admin: 10/02/19 09:39 Dose: 100 mls/hr Metoprolol Tartrate (Lopressor -) 50 mg PO BID [facility] Last Admin: 10/02/19 09:44 Dose: 50 mg Oxycodone HCl (Roxicodone -) 5 mg PO Q4H PRN PRN Reason: PAIN LEVEL 7 - 10 Last Admin: 09/30/19 18:30 Dose: 5 mg ASSESSMENT/PLAN: Acute Cellulitis with history of MRSA Mild Leukocytosis 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 COPD on 2L chronic oxygen History of HTN History of HLD HFrEF not in exacerbation --Continue Daptomycin and Azactam as per Id given plethora of antibiotic allergies and reactions --Clinical improvement of cellulitis noted --Offload areas of pressure/pressure ulcerations --BCx pending still; f/u 24hr growth today --Pain control with Tylenol and Oxycodone 5mg (as per home medication) --Continue Gabapentin 400mg TID for neuropathic pain --Continue Symbicort and Spiriva for COPD maintenance --Maintain SpO2 88-92%; titrate oxygen off as tolerated --Continue home medications as below: Eliquis 5mg BID Metoprolol 50mg BID CArdizem 360mg qdaily Plaquenil 200mg qdaily --Physical therapy ordered today FEN: Fluids: None Electrolyte abnormalities: None Nutrition: Regular diet PPX: DVT - Already on Eliquis GI - Pepcid per home medications Dispo: Continue M/S; isolation for MRSA contact Case discussed with Dr. Mirna Schaeffer, DO - IM PGy-3
--- NOTE | 2019-10-02 09:13 | PN ---
Teaching Attending Note Name of Resident: Rocky Schaeffer ATTENDING PHYSICIAN STATEMENT I saw and evaluated the patient. I reviewed the resident's note and discussed the case with the resident. I agree with the resident's findings and plan as documented. SUBJECTIVE: No new complaint OBJECTIVE: Vital Signs Temperature 97.6 F 10/02/19 06:00 Pulse Rate 60 10/02/19 06:00 Respiratory Rate 18 10/02/19 06:00 Blood Pressure 124/60 10/02/19 06:00 O2 Sat by Pulse Oximetry (%) 8 L 10/01/19 21:00 General: Elderly woman, comfortable, not in distress HEENT; mucous membranes moist, no anemia, no jaundice, PERRLA, no nystagmus Neck: No JVD, supple, no bruit, thyroid palpably normal, normal carotid pulsations. Chest: Nontender, clear to auscultation bilaterally/bilateral wheezing/ bilateral basal rales. CVS: S1-S2 irregular no murmur/gallop/rub Abdomen: Nondistended, soft, bowel sounds present. 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 , no gross motor sensory deficit CBC, BMP 10/02/19 06:10 10/02/19 06:10 Active Medications Acetaminophen (Tylenol -) 650 mg PO Q4H PRN PRN Reason: FEVER Last Admin: 10/02/19 01:53 Dose: 650 mg Apixaban (Eliquis -) 5 mg PO BID [facility] Last Admin: 10/01/19 22:35 Dose: 5 mg Bupropion HCl (Wellbutrin Xl -) 150 mg PO DAILY [facility] Last Admin: 10/01/19 10:00 Dose: 150 mg Diltiazem HCl (Cardizem Cd -) 360 mg PO DAILY [facility] Furosemide (Lasix -) 40 mg PO DAILY [facility] Last Admin: 10/01/19 10:00 Dose: 40 mg Gabapentin (Neurontin -) 400 mg PO TID [facility] Last Admin: 10/02/19 05:56 Dose: 400 mg Guaifenesin (Mucinex -) 600 mg PO DAILY [facility] Last Admin: 10/01/19 10:00 Dose: 600 mg Guaifenesin (Robitussin -) 10 ml PO Q4H PRN PRN Reason: COUGH Last Admin: 10/02/19 01:54 Dose: 10 ml Hydroxychloroquine Sulfate (Plaquenil -) 200 mg PO DAILY [facility] Last Admin: 10/01/19 10:41 Dose: 200 mg Aztreonam 2 gm/ Dextrose 100 mls @ 100 mls/hr IVPB Q8H-IV [facility]; Protocol Last Admin: 10/02/19 01:17 Dose: 100 mls/hr Daptomycin 500 mg/ Sodium (Chloride) 50 mls @ 100 mls/hr IVPB DAILY [facility]; Protocol Last Admin: 10/01/19 10:22 Dose: 100 mls/hr Metoprolol Tartrate (Lopressor -) 50 mg PO BID [facility] Last Admin: 10/01/19 22:35 Dose: 50 mg Oxycodone HCl (Roxicodone -) 5 mg PO Q4H PRN PRN Reason: PAIN LEVEL 7 - 10 Last Admin: 09/30/19 18:30 Dose: 5 mg ASSESSMENT AND PLAN:74 yo female with PMH of atrial fibrillation. 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 1. Left lower extremity cellulitis: Patient admitted with left lower external knee pain warmth swelling consistent with cellulitis considering previous history of MRSA and multiple regularity patient is on daptomycin and Azactam, will follow up ID recommendations and cultures. 2. Diastolic heart failure, at present compensated continue Lasix and diltiazem patient is on apixaban 3. Sjogren syndrome. Continue Plaquenil 4. Hypertension. Well-controlled continue home medications. 5. Chronic venous insufficiency.: Continue 6. Atrial fibrillation: Rate controlled continue anticoagulation with apixaban and diltiazem and metoprolol for rate control DVT prophylaxis: Patient is on full dose anticoagulation.
[2019-10-02] MEDS: DAPTOMYCIN 500 MG in SODIUM CHLORIDE 50 ML IVPB SCH (09:39)
[2019-10-02] MEDS: HYDROXYCHLOROQUINE SO4 200 MG TABLET (FP) PO SCH (09:43)
[2019-10-02] MEDS: APIXABAN 5 MG TABLET PO SCH ×2 (09:44→21:57)
[2019-10-02] MEDS: guaiFENesin 600 MG TABLET.ER (FP) PO SCH (09:44)
[2019-10-02] MEDS: METOPROLOL TARTRATE 50 MG TABLET (FP) PO SCH ×2 (09:44→21:58)
[2019-10-02] MEDS: FUROSEMIDE 40 MG TABLET (FP) PO SCH (09:47)
[2019-10-03] MEDS: AZTREONAM 2 GM in DEXTROSE 5%-WATER 100 ML IVPB SCH ×3 (02:54→17:04)
[2019-10-03] MEDS: GABAPENTIN 400 MG CAPSULE (FP) PO SCH ×3 (06:28→21:14)
[2019-10-03] MEDS: ACETAMINOPHEN 325 MG TABLET (FP) PO PRN ×3 (06:55→21:15)
[2019-10-03 07:42] LABS: HEMOGLOBIN 12.5 GM/dL (10.7-15.3); MCHC 31.2 g/dl (32.0-36.0); MEAN CELL VOLUME 83.4 fl (80-96); MEAN PLT VOLUME 8.4 fl (7.5-11.1); PLATELET COUNT 195 K/MM3 (134-434); RDW 15.2 % (11.6-15.6); WHITE BLOOD COUNT 7.4 K/mm3 (4.0-10.0)
--- NOTE | 2019-10-03 08:06 | PN ---
Progress Note, Physician Chief Complaint: Feels improved neck pain and left lower extremity. History of Present Illness: 74 yo female with PMH of atrial fibrillation. HTN, HLD, CHF, COPD (on 2L O2 at home), Chronic LE Edema, and MRSA cellulitis (7x cellulitis related admissions at [facility] since 2009), RA, Sjogren's syndrome who presents from home due to worsening lower extremity edema and erythema m consistent with left lower extremity cellulitis on IV daptomycin and Azactam so far all cultures are negative. - Current Medication List Current Medications: Active Medications Acetaminophen (Tylenol -) 650 mg PO Q4H PRN PRN Reason: FEVER Last Admin: 10/03/19 06:55 Dose: 650 mg Apixaban (Eliquis -) 5 mg PO BID [facility] Last Admin: 10/02/19 21:57 Dose: 5 mg Bupropion HCl (Wellbutrin Xl -) 150 mg PO DAILY [facility] Last Admin: 10/02/19 09:44 Dose: 150 mg Diltiazem HCl (Cardizem Cd -) 360 mg PO DAILY [facility] Last Admin: 10/02/19 09:44 Dose: 360 mg Furosemide (Lasix -) 40 mg PO DAILY [facility] Last Admin: 10/02/19 09:47 Dose: Not Given Gabapentin (Neurontin -) 400 mg PO TID [facility] Last Admin: 10/03/19 06:28 Dose: 400 mg Guaifenesin (Mucinex -) 600 mg PO DAILY [facility] Last Admin: 10/02/19 09:44 Dose: 600 mg Guaifenesin (Robitussin -) 10 ml PO Q4H PRN PRN Reason: COUGH Last Admin: 10/02/19 01:54 Dose: 10 ml Hydroxychloroquine Sulfate (Plaquenil -) 200 mg PO DAILY [facility] Last Admin: 10/02/19 09:43 Dose: 200 mg Aztreonam 2 gm/ Dextrose 100 mls @ 100 mls/hr IVPB Q8H-IV [facility]; Protocol Last Admin: 10/03/19 02:54 Dose: 100 mls/hr Daptomycin 500 mg/ Sodium (Chloride) 50 mls @ 100 mls/hr IVPB DAILY [facility]; Protocol Last Admin: 10/02/19 09:39 Dose: 100 mls/hr Metoprolol Tartrate (Lopressor -) 50 mg PO BID [facility] Last Admin: 10/02/19 21:58 Dose: 50 mg Oxycodone HCl (Roxicodone -) 5 mg PO Q4H PRN PRN Reason: PAIN LEVEL 7 - 10 Last Admin: 09/30/19 18:30 Dose: 5 mg - Objective Vital Signs: Vital Signs Temperature 98.5 F 10/02/19 22:00 Pulse Rate 73 10/02/19 22:00 Respiratory Rate 18 10/02/19 22:00 Blood Pressure 106/56 L 10/02/19 22:00 O2 Sat by Pulse Oximetry (%) 99 10/02/19 21:00 General: Elderly woman, comfortable, not in distress HEENT; mucous membranes moist, no anemia, no jaundice, PERRLA, no nystagmus Neck: No JVD, supple, no bruit, thyroid palpably normal, normal carotid pulsations. Chest: Nontender, clear to auscultation bilaterally/bilateral wheezing/ bilateral basal rales. CVS: S1-S2 irregular no murmur/gallop/rub Abdomen: Nondistended, soft, bowel sounds present. 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 Problems reviewed: Yes Code(s): L03.90 - CELLULITIS, UNSPECIFIED Qualifiers: Site of cellulitis: extremity Site of cellulitis of extremity: lower extremity Laterality: left Qualified Code(s): L03.116 - Cellulitis of left lower limb (2) Atrial fibrillation Assessment/Plan: Atrial fibrillation: Rate controlled continue anticoagulation with apixaban and diltiazem and metoprolol for rate control Code(s): I48.91 - UNSPECIFIED ATRIAL FIBRILLATION Qualifiers: Atrial fibrillation type: permanent Qualified Code(s): I48.21 - Permanent atrial fibrillation (3) HTN (hypertension) Assessment/Plan: Hypertension. Well-controlled continue home medications. Problems reviewed: Yes Code(s): I10 - ESSENTIAL (PRIMARY) HYPERTENSION (4) Sjogrens syndrome Assessment/Plan: Sjogren syndrome. Continue Plaquenil Problems reviewed: Yes Code(s): M35.00 - SICCA SYNDROME, UNSPECIFIED (5) Chronic venous stasis Assessment/Plan: Chronic venous insufficiency.: Continue skin care Problems reviewed: Yes Code(s): I87.8 - OTHER SPECIFIED DISORDERS OF VEINS (6) Diastolic CHF Assessment/Plan: Diastolic heart failure, at present compensated continue Lasix and diltiazem patient is on apixaban Problems reviewed: Yes Code(s): I50.30 - UNSPECIFIED DIASTOLIC (CONGESTIVE) HEART FAILURE Qualifiers: Heart failure chronicity: chronic Qualified Code(s): I50.32 - Chronic diastolic (congestive) heart failure (7) Renal mass Assessment/Plan: Abdominal ultrasound right same as baseline Problems reviewed: Yes Code(s): N28.89 - OTHER SPECIFIED DISORDERS OF KIDNEY AND URETER
[2019-10-03 08:35] LABS: BLOOD UREA NITROGEN 19.4 mg/dL (7-18); CALCIUM 8.5 mg/dL (8.5-10.1); CREATININE 0.4 mg/dL (0.55-1.3); POTASSIUM 4.3 mmol/L (3.5-5.1)
[2019-10-03] MEDS: METOPROLOL TARTRATE 50 MG TABLET (FP) PO SCH ×2 (10:11→21:13)
[2019-10-03] MEDS: APIXABAN 5 MG TABLET PO SCH ×2 (10:11→21:13)
[2019-10-03] MEDS: guaiFENesin 600 MG TABLET.ER (FP) PO SCH (10:12)
[2019-10-03] MEDS: DAPTOMYCIN 500 MG in SODIUM CHLORIDE 50 ML IVPB SCH (10:12)
[2019-10-03] MEDS: FUROSEMIDE 40 MG TABLET (FP) PO SCH (10:12)
[2019-10-03] MEDS: HYDROXYCHLOROQUINE SO4 200 MG TABLET (FP) PO SCH (10:13)
[2019-10-04] MEDS: AZTREONAM 2 GM in DEXTROSE 5%-WATER 100 ML IVPB SCH ×3 (02:54→17:21)
[2019-10-04] MEDS: oxyCODONE HCL 5 MG TABLET PO PRN ×2 (03:29→13:58)
[2019-10-04] MEDS: ACETAMINOPHEN 325 MG TABLET (FP) PO PRN ×3 (03:30→22:18)
[2019-10-04] MEDS: GABAPENTIN 400 MG CAPSULE (FP) PO SCH ×3 (06:23→22:11)
--- NOTE | 2019-10-04 08:12 | PN ---
Progress Note, Physician Chief Complaint: Today patient feels unwell but unable to tell for his content of salty sensation of the tongue remained afebrile. History of Present Illness: 74 yo female with PMH of atrial fibrillation. 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 - Current Medication List Current Medications: Active Medications Acetaminophen (Tylenol -) 650 mg PO Q4H PRN PRN Reason: FEVER Last Admin: 10/04/19 03:30 Dose: 650 mg Apixaban (Eliquis -) 5 mg PO BID [facility] Last Admin: 10/03/19 21:13 Dose: 5 mg Bupropion HCl (Wellbutrin Xl -) 150 mg PO DAILY [facility] Last Admin: 10/03/19 10:12 Dose: 150 mg Diltiazem HCl (Cardizem Cd -) 360 mg PO DAILY [facility] Last Admin: 10/03/19 10:12 Dose: 360 mg Furosemide (Lasix -) 40 mg PO DAILY [facility] Last Admin: 10/03/19 10:12 Dose: Not Given Gabapentin (Neurontin -) 400 mg PO TID [facility] Last Admin: 10/04/19 06:23 Dose: 400 mg Guaifenesin (Mucinex -) 600 mg PO DAILY [facility] Last Admin: 10/03/19 10:12 Dose: 600 mg Guaifenesin (Robitussin -) 10 ml PO Q4H PRN PRN Reason: COUGH Last Admin: 10/02/19 01:54 Dose: 10 ml Hydroxychloroquine Sulfate (Plaquenil -) 200 mg PO DAILY [facility] Last Admin: 10/03/19 10:13 Dose: 200 mg Aztreonam 2 gm/ Dextrose 100 mls @ 100 mls/hr IVPB Q8H-IV [facility]; Protocol Last Admin: 10/04/19 02:54 Dose: 100 mls/hr Daptomycin 500 mg/ Sodium (Chloride) 50 mls @ 100 mls/hr IVPB DAILY [facility]; Protocol Last Admin: 10/03/19 10:12 Dose: 100 mls/hr Metoprolol Tartrate (Lopressor -) 50 mg PO BID [facility] Last Admin: 10/03/19 21:13 Dose: 50 mg Oxycodone HCl (Roxicodone -) 5 mg PO Q4H PRN PRN Reason: PAIN LEVEL 7 - 10 Last Admin: 10/04/19 03:29 Dose: 5 mg - Objective Vital Signs: Vital Signs Temperature 98.4 F 10/04/19 06:22 Pulse Rate 78 10/04/19 06:22 Respiratory Rate 18 10/04/19 06:22 Blood Pressure 106/67 10/04/19 06:22 O2 Sat by Pulse Oximetry (%) 98 10/03/19 21:00 General: Elderly woman, comfortable, not in distress HEENT; mucous membranes moist, no anemia, no jaundice, PERRLA, no nystagmus Neck: No JVD, supple, no bruit, thyroid palpably normal, normal carotid pulsations. Chest: Nontender, bilateral basal rales. CVS: S1-S2 irregular no murmur/gallop/rub Abdomen: Nondistended, soft, bowel sounds present. 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 Problems reviewed: Yes Code(s): L03.90 - CELLULITIS, UNSPECIFIED Qualifiers: Site of cellulitis: extremity Site of cellulitis of extremity: lower extremity Laterality: left Qualified Code(s): L03.116 - Cellulitis of left lower limb (2) Atrial fibrillation Assessment/Plan: Atrial fibrillation: Rate controlled continue anticoagulation with apixaban and diltiazem and metoprolol for rate control Problems reviewed: Yes Code(s): I48.91 - UNSPECIFIED ATRIAL FIBRILLATION Qualifiers: Atrial fibrillation type: permanent Qualified Code(s): I48.21 - Permanent atrial fibrillation (3) HTN (hypertension) Assessment/Plan: Hypertension. Well-controlled continue home medications. Problems reviewed: Yes Code(s): I10 - ESSENTIAL (PRIMARY) HYPERTENSION (4) Sjogrens syndrome Assessment/Plan: Sjogren syndrome. Continue Plaquenil Problems reviewed: Yes Code(s): M35.00 - SICCA SYNDROME, UNSPECIFIED (5) Chronic venous stasis Assessment/Plan: Chronic venous insufficiency.: Continue skin care Problems reviewed: Yes Code(s): I87.8 - OTHER SPECIFIED DISORDERS OF VEINS (6) Diastolic CHF Assessment/Plan: Diastolic heart failure, at present compensated continue Lasix and diltiazem patient is on apixaban Problems reviewed: Yes Code(s): I50.30 - UNSPECIFIED DIASTOLIC (CONGESTIVE) HEART FAILURE Qualifiers: Heart failure chronicity: chronic Qualified Code(s): I50.32 - Chronic diastolic (congestive) heart failure (7) Renal mass Assessment/Plan: Abdominal ultrasound right same as baseline Problems reviewed: Yes Code(s): N28.89 - OTHER SPECIFIED DISORDERS OF KIDNEY AND URETER (8) Altered gustatory perception Assessment/Plan: Can be due to jogreen syndome or glossitis will f/u sr iron, folic acid and b12 Problems reviewed: Yes Code(s): R43.9 - UNSPECIFIED DISTURBANCES OF SMELL AND TASTE
[2019-10-04] MEDS: guaiFENesin 600 MG TABLET.ER (FP) PO SCH (09:39)
[2019-10-04] MEDS: APIXABAN 5 MG TABLET PO SCH ×2 (09:39→22:14)
[2019-10-04] MEDS: METOPROLOL TARTRATE 50 MG TABLET (FP) PO SCH ×2 (09:39→22:11)
[2019-10-04] MEDS: FUROSEMIDE 40 MG TABLET (FP) PO SCH (09:40)
[2019-10-04] MEDS: HYDROXYCHLOROQUINE SO4 200 MG TABLET (FP) PO SCH (09:40)
[2019-10-04] MEDS: DAPTOMYCIN 500 MG in SODIUM CHLORIDE 50 ML IVPB SCH (10:49)
[2019-10-04] MEDS ORDERED: PT OWN MED DRAWER 7, Y5N ONE (16:22)
[2019-10-05] MEDS: AZTREONAM 2 GM in DEXTROSE 5%-WATER 100 ML IVPB SCH ×3 (02:56→17:43)
[2019-10-05 07:11] LABS: BASO % 0.1 % (0-2.0); EOS % 3.6 % (0-4.5); HEMATOCRIT 40.2 % (32.4-45.2); HEMOGLOBIN 12.6 GM/dL (10.7-15.3); LYMPH % 10.7 % (8-40); MCH 26.1 pg (25.7-33.7); MCHC 31.3 g/dl (32.0-36.0); MEAN CELL VOLUME 83.5 fl (80-96); MEAN PLT VOLUME 8.2 fl (7.5-11.1); NEUT % 73.6 % (42.8-82.8); PLATELET COUNT 216 K/MM3 (134-434); RBC 4.81 M/mm3 (3.60-5.2); WHITE BLOOD COUNT 8.2 K/mm3 (4.0-10.0)
[2019-10-05] MEDS ORDERED: METOPROLOL TARTRATE 50 MG TABLET (FP) PO ONE (07:23)
[2019-10-05] MEDS ORDERED: ACETAMINOPHEN 1000 MG/100 ML VIAL (NON FORMULARY) IVPB ONE (07:23)
--- NOTE | 2019-10-05 07:24 | RAPID ---
<Mayank Gonzáles - Last Filed: 10/05/19 17:05> Physical Examination Vital Signs: Vital Signs Temperature 98.1 F 10/05/19 06:00 Pulse Rate 87 10/05/19 06:00 Respiratory Rate 20 10/05/19 06:00 Blood Pressure 137/90 10/05/19 06:00 O2 Sat by Pulse Oximetry (%) 97 10/04/19 09:00 HR 99, BP 128/80, 90%, venti mask 15L Findings/Remarks: Complaint of substernal CP, radiating to neck Constitutional: Yes: Anxious, Obese Neck: Yes: Supple, Trachea Midline Cardiovascular: Yes: Tachycardia, Pulse Irregular Respiratory: Yes: CTA Bilaterally, On Venti-Mask (15L). No: Accessory Muscle Use Gastrointestinal: Yes: Soft Rapid Response - Rapid Response Assessment: 4 yo female with PMH of HTN, HLD, CHF, COPD (on 2L O2 at home), Chronic LE Edema , and MRSA cellulitis (7x cellulitis related admissions at [facility] since 2009), RA , Sjogren's syndrome admitted for cellulitis. Rapid response called for complaint of chest pressure, SOB --likely dt CHF vs COPD exacerbation. Outcome: - fu CBC, BMP, troponins - EKG: showing afib, HR 100s - fu CXR <Moriah Bran - Last Filed: 10/07/19 14:46> Rapid Response - Rapid Response Recommendations/Interventions: Called for chest pain, patient seen anxious, reported by RN to have heart rate 140s, when seen HR 90s,vital signs as above. patient known to me from prior admissions, h/o oxygen dependent COPD, diastolic heart failure, Atrial fibrillation, recurrent cellulitis. Differential currently CHF vs COPD exacerbation Ordered stat EKG, tn, CXR. Primary team/Dr. Schaeffer at bedside. Endorsed current pending work up. Will defer further management to primary team Primary Physician Notified: Rocky Schaeffer Time PMD Notified: 20:00 (primary team at bedside) Critical Care Total Critical Care Time (in minutes): 36 Critical Care Statement: The care of this patient involved high complexity decision making to prevent further life threatening deterioration of the patient 's condition and/or to evaluate & treat vital organ system(s) failure or risk of failure.
--- NOTE | 2019-10-05 07:29 | PN ---
Progress Note (short form) - Note Progress Note: HPI: GSE MECHANIC noted. Briefly, pt with tachycardia irregular (however afib at her base ) and substernal nonradiating chest pain with reproduction on palpation. For further details see GSE MECHANIC note. Pt with continued pain currently, however able to speak. Vital Signs Temperature 98.1 F 10/05/19 06:00 Pulse Rate 87 10/05/19 06:00 Respiratory Rate 20 10/05/19 06:00 Blood Pressure 137/90 10/05/19 06:00 O2 Sat by Pulse Oximetry (%) 97 10/04/19 09:00 PE: General: Mild distress, awake and alert, hard of hearing HEENT: NCAT, BROOKS, sclera anicteric, MMM, no mucosal ulcerations LUNG: Diminished breath sounds at the bases, no wheezes or rales CARD: irregularly irregular with tachycardia, no murmurs appreciated. reproduction of pain with palpation of substernal area Abdomen: soft, obese, NT/ND, normoactive BS, no rebound or guarding. Extremities: no calf tenderness, cap refill <2sec. SEE SKIN EXAM Psych: Calm and cooperative Skin: Venous stasis changes appreciated around leg, RLE ulceration without any purulence, weeping or surrounding erythema; no drainage noted. LLE erythema improved, baseline temp, no TTP. Strong pulses b/l Microbiology 09/30/19 13:49 Blood - Peripheral Venous Blood Culture - Preliminary NO GROWTH OBTAINED AFTER 48 HOURS, INCUBATION TO CONTINUE FOR 3 DAYS. 09/30/19 13:47 Blood - Peripheral Venous Blood Culture - Preliminary NO GROWTH OBTAINED AFTER 48 HOURS, INCUBATION TO CONTINUE FOR 3 DAYS. Active Medications Acetaminophen (Tylenol -) 650 mg PO Q4H PRN PRN Reason: FEVER Last Admin: 10/04/19 22:18 Dose: 650 mg Apixaban (Eliquis -) 5 mg PO BID [facility] Last Admin: 10/04/19 22:14 Dose: 5 mg Bupropion HCl (Wellbutrin Xl -) 150 mg PO DAILY [facility] Last Admin: 10/04/19 09:39 Dose: 150 mg Diltiazem HCl (Cardizem Cd -) 360 mg PO DAILY [facility] Last Admin: 10/04/19 09:39 Dose: 360 mg Furosemide (Lasix -) 40 mg PO DAILY [facility] Last Admin: 10/04/19 09:40 Dose: Not Given Gabapentin (Neurontin -) 400 mg PO TID [facility] Last Admin: 10/04/19 22:11 Dose: 400 mg Guaifenesin (Mucinex -) 600 mg PO DAILY [facility] Last Admin: 10/04/19 09:39 Dose: 600 mg Guaifenesin (Robitussin -) 10 ml PO Q4H PRN PRN Reason: COUGH Last Admin: 10/02/19 01:54 Dose: 10 ml Hydroxychloroquine Sulfate (Plaquenil -) 200 mg PO DAILY [facility] Last Admin: 10/04/19 09:40 Dose: 200 mg Aztreonam 2 gm/ Dextrose 100 mls @ 100 mls/hr IVPB Q8H-IV [facility]; Protocol Last Admin: 10/05/19 02:56 Dose: 100 mls/hr Daptomycin 500 mg/ Sodium (Chloride) 50 mls @ 100 mls/hr IVPB DAILY [facility]; Protocol Last Admin: 10/04/19 10:49 Dose: 100 mls/hr Metoprolol Tartrate (Lopressor -) 50 mg PO BID [facility] Last Admin: 10/04/19 22:11 Dose: 50 mg Oxycodone HCl (Roxicodone -) 5 mg PO Q4H PRN PRN Reason: PAIN LEVEL 7 - 10 Last Admin: 10/04/19 13:58 Dose: 5 mg ASSESSMENT/PLAN: Acute Cellulitis with history of MRSA Acute hypoxic hypercapneic respiratory distress Respiratory acidosis Atypical chest pain Mild Leukocytosis 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 COPD on 2L chronic oxygen History of HTN History of HLD HFrEF not in exacerbation --Atypical chest pain less likely ACS; --F/u ECG and CXR ordered by GSE MECHANIC --High suspicion of pleuritic chest pain with +/- GERD symptoms --Medicated with Ofirmev 1gm and Morphine 2mg IVP during GSE MECHANIC; f/u effects --ABG ordered --Acute respiratory acidosis: will started BiPap 08/29/14/titrate O2 --Recheck ABG in PM --Continue Daptomycin and Azactam day 6 today --can likely discontinue today due to clinical improvement --appreciated ID recommendations --Clinical improvement of cellulitis noted --Offload areas of pressure/pressure ulcerations --BCx pending still; f/u 24hr growth today --Pain control with Tylenol PO and Oxycodone 5mg (as per home medication) --Continue Gabapentin 400mg TID for neuropathic pain --Continue Symbicort and Spiriva for COPD maintenance --Maintain SpO2 88-92%; titrate oxygen off as tolerated --Continue home medications as below: Eliquis 5mg BID Metoprolol 50mg BID Cardizem 360mg qdaily Plaquenil 200mg qdaily --Physical therapy ordered today FEN: Fluids: None Electrolyte abnormalities: None Nutrition: Regular diet PPX: DVT - Already on Eliquis GI - Pepcid per home medications Dispo: Transfer to Telemetry; isolation for MRSA contact Case discussed with Dr. Yimi Schaeffer, DO - IM PGy-3 <Rocky Schaeffer - Last Filed: 10/05/19 14:32> - Note Progress Note: Seen and examined; please see resident note for further discussion. Agree with their note including assessment and plan as outlined aside from as supplemented myself. Independently reviewed and verified all webb historical and PE findings as well as labs and imaging. Discussed at length with resident and consulting services. Aside from above no overnight events indicated VS, labs, imaging reviewed NAD AAO resting in bed NC AT EOMI PERRLA RRR s1/2 Lungs CTAB, w/ sym exp NT ND +BS CN2-12 wnl, no fnd Normal mood, appropriate behavior No new rashes or skin breakdown noted Trachea midline without lymphadenopathy cxr: new congestive changes echo 07/2017: tds. nl lv/rv size/fn. tds for rwma. no comment on diastolic function but e/a ratio 4:1. 1+ david. 1+ mr, rvsp A/P: Acute Respiratory failure with likely chronic hypoventillatory/LEON component 2/ 2 HFpEF exacerbation -No evidence of ACS, s/p BiPap and Lasix. Missed lasix dose. Not floridly overloaded on exam. EKG OK. -Continue IV lasix, FU CV consult, move to tele and monitor Mg and K and optimize. Strict Is and Os and QD weights. -Assess chronic components once acute resolve with ABG on RA to r/o pickwickian and LEON eval -Considering repeat echo; check flu. CXR noted. Acute cellulitis -Continue management per ID with abx; no WBC. FU ESR and CRP. Chronic appearance to changes noted. Hx HTN, controlled -Will continue current meds but of course defer to cardio. Chronic Afib, elevated CV2 score on eliquis -Continue BB and dilt Hx HLD -cont home statin Morbid Obesity COPD Hx GERD MCI vs. Dementia Hx Sjogrens Syndrome Atypical CP-less likely ACS Full Code <Nick Geller - Last Filed: 10/06/19 07:02>
[2019-10-05] MEDS ORDERED: PANTOPRAZOLE SODIUM 40 MG VIAL IVPUSH ONE (07:31)
[2019-10-05] MEDS ORDERED: MORPHINE SULFATE 2 MG/ML VIAL IVPUSH ONE (07:35)
[2019-10-05] MEDS: GABAPENTIN 400 MG CAPSULE (FP) PO SCH ×3 (07:42→22:47)
[2019-10-05] MEDS ORDERED: FUROSEMIDE 40 MG/4 ML INJECTABLE VIAL IVPUSH ONE (07:46)
[2019-10-05] MEDS ORDERED: FUROSEMIDE 40 MG/4 ML INJECTABLE VIAL ONE (07:52)
[2019-10-05 08:21] LABS: ANION GAP -1 MMOL/L (8-16); BLOOD UREA NITROGEN 29.5 mg/dL (7-18); CALCIUM 9.1 mg/dL (8.5-10.1); CHLORIDE 94 mmol/L (98-107); CO2 42 mmol/L (21-32); CREATININE 0.5 mg/dL (0.55-1.3); GLUCOSE,RANDOM 114 mg/dL (74-106); POTASSIUM 5.2 mmol/L (3.5-5.1); SODIUM 135 mmol/L (136-145)
[2019-10-05 09:55] LABS: ARTERIAL BLD GAS O2 SATURATION 93.1 % (95-98); ARTERIAL BLOOD GAS BASE EXCESS 9.9 meq/l (-2-2); ARTERIAL BLOOD GAS PO2 69.5 mmHg (80-100); ARTERIAL BLOOD GAS pH 7.26 (7.35-7.45)
[2019-10-05 09:56] LABS: ALLENS TEST POSITIVE
[2019-10-05 09:59] LABS: ARTERIAL BLOOD GAS PCO2 92.7 mmHg (35-45)
--- NOTE | 2019-10-05 10:00 | EKG ---
Test Reason : Blood Pressure : / mmHG Vent. Rate : 096 BPM Atrial Rate : 085 BPM P-R Int : 000 ms QRS Dur : 092 ms QT Int : 342 ms P-R-T Axes : 000 069 051 degrees QTc Int : 432 ms ATRIAL FIBRILLATION NONSPECIFIC ST AND T WAVE ABNORMALITY ABNORMAL ECG WHEN COMPARED WITH ECG OF 30-SEP-2019 13:23, NO SIGNIFICANT CHANGE WAS FOUND Confirmed by JOE NOBLE MD ([id number]) on 10/05/2019 10:00:13 AM Referred By: Confirmed By:JOE NOBLE MD
[2019-10-05] MEDS: METOPROLOL TARTRATE 50 MG TABLET (FP) PO SCH ×2 (10:34→22:46)
[2019-10-05] MEDS ORDERED: oxyCODONE HCL 5 MG TABLET PO PRN (10:48)
[2019-10-05] MEDS ORDERED: ACETAMINOPHEN 325 MG TABLET (FP) PO PRN (10:48)
[2019-10-05] MEDS: guaiFENesin 600 MG TABLET.ER (FP) PO SCH (12:29)
[2019-10-05] MEDS: DAPTOMYCIN 500 MG in SODIUM CHLORIDE 50 ML IVPB SCH (12:29)
[2019-10-05] MEDS: APIXABAN 5 MG TABLET PO SCH ×2 (12:29→22:46)
[2019-10-05] MEDS ORDERED: PT OWN MED DRAWER 7, Y5N ONE (12:31)
[2019-10-05] MEDS ORDERED: APIXABAN 5 MG TABLET PO ONE (12:31)
[2019-10-05] MEDS: HYDROXYCHLOROQUINE SO4 200 MG TABLET (FP) PO SCH ×2 (12:54→12:56)
--- NOTE | 2019-10-05 15:59 | CON.CARD ---
Cardiology Consult (text) - Consultation Consultation Note: - Consultation Consultation Note: Chief Complaint: short of breath History of Present Illness: 74 yo female who came to ER for cellulitis, transferred to tele today for episode of tachycardia, shortness of breath. Patient on bipap when evaluated, history per chart. Has been treated here for cellulitis rapid response today for tachycardia, shortness of breath. Received IV lasix, now on Bipap. Had seen Dr Stevens for cardio, not recently. Was admitted 06/2019 for acute on chronic diastolic HF exacerbation. PMH: morbid obesity severe DJD/OA HTN HPL GERD - Alcohol/Substance Use Hx Alcohol Use: No - Smoking History Smoking history: Never smoked Have you smoked in the past 12 months: No Aproximately how many cigarettes per day: 0 Home Medications - Allergies Allergies/Adverse Reactions: Allergies Allergy/AdvReac Type Severity Reaction Status Date / Time Penicillins Allergy Severe Swelling Verified 07/26/19 18:50 clindamycin Allergy Mild Rash Verified 07/26/19 18:50 doxycycline Allergy Swelling Verified 07/26/19 18:50 levofloxacin [From Levaquin] Allergy Rash Verified 07/26/19 18:50 vancomycin AdvReac Mild Itching Verified 07/26/19 18:50 adhesive tape AdvReac "RIPS MY Verified 07/26/19 18:50 SKIN" - Home Medications Home Medications Medication Instructions Recorded Ascorbate Calcium [Vitamin C] 1,000 mg PO DAILY 08/30/15 Cholecalciferol (Vitamin D3) 1,000 unit PO BID 08/30/15 [Vitamin D3] Cyanocobalamin [Vitamin B12 -] 1,000 mcg PO DAILY 08/30/15 Oxycodone/APAP [Percocet - Must 1 each NR QID PRN 08/30/15 Order Individual Components] Simvastatin 10 mg PO HS 08/30/15 Guaifenesin [Mucinex] 600 mg PO DAILY 06/20/17 Furosemide [Lasix] 40 mg PO DAILY 08/29/17 Apixaban [Eliquis] 5 mg PO BID 04/22/19 Gabapentin [Neurontin] 400 mg PO TID 05/14/19 Ranitidine HCl [Zantac] 150 mg PO HS 05/14/19 Nystatin Powder [Nystop Powder -] 1 applic TP TID PRN #1 applic 06/16/19 Acetaminophen [Tylenol] 2 tab PO Q6H PRN 09/23/19 Bupropion HCl [Bupropion Xl] 150 mg PO DAILY 09/30/19 Dexamethasone 3 mg PO QID 09/30/19 Metoprolol Tartrate 50 mg PO BID 09/30/19 Vital Signs Period Temp Pulse Resp BP Sys/William Pulse Ox Last 24 Hr 97.8 F-99.1 F 72-102 17-21 98-140/59-103 80-93 no jvd nad cta bl nl eff aao3 irreg s1s2 no mrg abd nt nd pos bs no jaundice diaphoresis pos dp pt no carotid bruits b/l le edema with chronic stasis changes and cellulitis Laboratory Last Values WBC 8.2 K/mm3 (4.0-10.0) 10/05/19 06:10 RBC 4.81 M/mm3 (3.60-5.2) 10/05/19 06:10 Hgb 12.6 GM/dL (10.7-15.3) 10/05/19 06:10 Hct 40.2 % (32.4-45.2) 10/05/19 06:10 MCV 83.5 fl (80-96) 10/05/19 06:10 MCH 26.1 pg (25.7-33.7) 10/05/19 06:10 MCHC 31.3 g/dl (32.0-36.0) L 10/05/19 06:10 RDW 15.0 % (11.6-15.6) 10/05/19 06:10 Plt Count 216 K/MM3 (134-434) 10/05/19 06:10 MPV 8.2 fl (7.5-11.1) 10/05/19 06:10 Absolute Neuts (auto) 6.0 K/mm3 (1.5-8.0) 10/05/19 06:10 Neutrophils % 73.6 % (42.8-82.8) 10/05/19 06:10 Lymphocytes % 10.7 % (8-40) D 10/05/19 06:10 Monocytes % 12.0 % (3.8-10.2) H D 10/05/19 06:10 Eosinophils % 3.6 % (0-4.5) D 10/05/19 06:10 Basophils % 0.1 % (0-2.0) 10/05/19 06:10 Nucleated RBC % 0 % (0-0) 10/05/19 06:10 ESR 22 mm/hr (0-30) 09/30/19 13:34 PT with INR 16.00 SEC (9.7-13.0) H 09/30/19 16:17 INR 1.35 (0.83-1.09) H 09/30/19 16:17 PTT (Actin FS) 32.2 SECONDS (25.2-36.5) 09/30/19 16:17 Anticoagulation Therapy No Result Required. 10/05/19 09:41 Puncture Site Left radial 10/05/19 09:41 ABG pH 7.26 (7.35-7.45) L 10/05/19 09:41 ABG pCO2 at Pt Temp 92.7 mmHg (35-45) H* 10/05/19 09:41 ABG pO2 at Pt Temp 69.5 mmHg (80-100) L 10/05/19 09:41 ABG HCO3 40.3 mmol/L (22-27) H 10/05/19 09:41 ABG O2 Sat (Measured) 93.1 % (95-98) L 10/05/19 09:41 ABG O2 Content 16.3 % vol 10/05/19 09:41 ABG Base Excess 9.9 meq/l (-2-2) H 10/05/19 09:41 Bertin Test Positive 10/05/19 09:41 O2 Delivery Device No Result Required. 10/05/19 09:41 Oxygen Flow Rate 50 10/05/19 09:41 Vent Mode No Result Required. 10/05/19 09:41 Vent Rate No Result Required. 10/05/19 09:41 Mechanical Rate No Result Required. 10/05/19 09:41 Pressure Support Vent No Result Required. 10/05/19 09:41 Sodium 135 mmol/L (136-145) L 10/05/19 06:10 Potassium 5.2 mmol/L (3.5-5.1) H 10/05/19 06:10 Chloride 94 mmol/L (98-107) L 10/05/19 06:10 Carbon Dioxide 42 mmol/L (21-32) H 10/05/19 06:10 Anion Gap -1 MMOL/L (8-16) L 10/05/19 06:10 BUN 29.5 mg/dL (7-18) H 10/05/19 06:10 Creatinine 0.5 mg/dL (0.55-1.3) L 10/05/19 06:10 Est GFR (CKD-EPI)AfAm 112.07 10/05/19 06:10 Est GFR (CKD-EPI)NonAf 96.69 10/05/19 06:10 Random Glucose 114 mg/dL (74-106) H 10/05/19 06:10 Lactic Acid 1.0 mmol/L (0.4-2.0) 09/30/19 14:11 Calcium 9.1 mg/dL (8.5-10.1) 10/05/19 06:10 Magnesium 1.8 mg/dL (1.8-2.4) 10/02/19 06:10 Iron 16 ug/dL (50-175) L 10/05/19 06:10 TIBC 303 ug/dL (250-450) 10/05/19 06:10 Iron Saturation 5 % (17.5-39) L 10/05/19 06:10 Unsaturated IBC 287 ug/dL (200-275) H 10/05/19 06:10 Ferritin 117.8 ng/ml (8-388) 10/05/19 06:10 Total Bilirubin 0.5 mg/dL (0.2-1) 09/30/19 13:49 AST 37 U/L (15-37) 09/30/19 13:49 ALT 32 U/L (13-61) 09/30/19 13:49 Alkaline Phosphatase 91 U/L (45-117) 09/30/19 13:49 Creatine Kinase 12 U/L (26-192) L 10/05/19 06:10 Troponin I < 0.02 ng/ml (0.00-0.05) 10/05/19 06:10 C-Reactive Protein 8.9 MG/DL (0.00-0.3) H 09/30/19 13:49 Total Protein 6.4 g/dl (6.4-8.2) 09/30/19 13:49 Albumin 2.8 g/dl (3.4-5.0) L 09/30/19 13:49 Vitamin B12 1020 pg/ml (193-986) H 10/05/19 06:10 Serum Folate 21 ng/mL (3.1-17.5) H 10/05/19 06:10 ecg: afib 96 bpm, nl qtc, no ischemic changes cxr: new congestive changes echo 07/2017: tds. nl lv/rv size/fn. tds for rwma. no comment on diastolic function but e/a ratio 4:1. 1+ david. 1+ mr, rvsp nl echo 06/2019 tds, LA/RA mildly dilated, LV not well visualized grossly nl LV function, trace to mild MR tele: afib, rate ok Assessment/Plan 74 yo with h/o afib on coumadin, htn, hl, morbid obesity, copd, obesity hypoventilation syndrome, severe djd/oa/spinal stenosis, sjogren's, RA, gerd who p/w worsening of her chronic LE cellulitis now with shortness of breath acute on chronic diastolic chf, venous insuff/le edema, shortness of breath - trop neg x 1, EKG no ischemic changes - less likely ACS - resp status improved on bipap - cont iv lasix. monitor Cr, lytes, daily weights cellulitis - mgm't per ID, pmd HTN: - continue current meds chronic Afib: -cont eliquis -rate control with toprol and dilt HPL: -cont home statin
[2019-10-06] MEDS: AZTREONAM 2 GM in DEXTROSE 5%-WATER 100 ML IVPB SCH ×2 (02:42→09:33)
[2019-10-06 06:25] LABS: ARTERIAL BLD GAS O2 SATURATION 92.7 % (95-98); ARTERIAL BLOOD GAS BASE EXCESS 10.9 meq/l (-2-2); ARTERIAL BLOOD GAS PO2 66.8 mmHg (80-100); ARTERIAL BLOOD GAS pH 7.29 (7.35-7.45)
[2019-10-06 06:27] LABS: ALLENS TEST POSITIVE
[2019-10-06] MEDS: GABAPENTIN 400 MG CAPSULE (FP) PO SCH ×3 (06:53→21:07)
[2019-10-06 06:54] LABS: HEMATOCRIT 38.6 % (32.4-45.2); HEMOGLOBIN 12.1 GM/dL (10.7-15.3); MCH 25.8 pg (25.7-33.7); MCHC 31.3 g/dl (32.0-36.0); MEAN CELL VOLUME 82.5 fl (80-96); MEAN PLT VOLUME 8.3 fl (7.5-11.1); PLATELET COUNT 203 K/MM3 (134-434); RBC 4.68 M/mm3 (3.60-5.2); RDW 15.2 % (11.6-15.6); WHITE BLOOD COUNT 6.9 K/mm3 (4.0-10.0)
[2019-10-06 07:22] LABS: ALBUMIN 2.4 g/dl (3.4-5.0); BILIRUBIN,TOTAL 0.4 mg/dL (0.2-1); BLOOD UREA NITROGEN 36.9 mg/dL (7-18); CALCIUM 8.4 mg/dL (8.5-10.1); CREATININE 0.4 mg/dL (0.55-1.3); MAGNESIUM 2.2 mg/dL (1.8-2.4); PHOSPHOROUS 3.2 mg/dL (2.5-4.9)
--- NOTE | 2019-10-06 09:31 | PN ---
Progress Note (short form) - Note Progress Note: HPI: PT with breathing improved on NIPPV. No chest pain, palpitations today. Vital Signs Temperature 97.5 F L 10/06/19 06:00 Pulse Rate 88 10/06/19 06:00 Respiratory Rate 18 10/06/19 06:00 Blood Pressure 110/60 10/06/19 06:00 O2 Sat by Pulse Oximetry (%) 94 L 10/05/19 21:00 PE: General: NAD, awake and alert, hard of hearing HEENT: NCAT, sclera anicteric, MMM LUNG: Diminished breath sounds at the bases (R>L), no wheezes or rales CARD: irregularly irregular, normal rate, no murmurs appreciated Abdomen: soft, obese, NT/ND, normoactive BS, no rebound or guarding. Extremities: no calf tenderness, cap refill <2sec. SEE SKIN EXAM Psych: Calm and cooperative Skin: Venous stasis changes appreciated around leg, RLE ulceration without any purulence. LLE erythema improved, baseline temp, no TTP. Strong pulses b/l Microbiology 09/30/19 13:49 Blood - Peripheral Venous Blood Culture - Preliminary NO GROWTH OBTAINED AFTER 48 HOURS, INCUBATION TO CONTINUE FOR 3 DAYS. 09/30/19 13:47 Blood - Peripheral Venous Blood Culture - Preliminary NO GROWTH OBTAINED AFTER 48 HOURS, INCUBATION TO CONTINUE FOR 3 DAYS. Active Medications Acetaminophen (Tylenol -) 650 mg PO Q4H PRN PRN Reason: FEVER Last Admin: 10/05/19 22:00 Dose: 650 mg Apixaban (Eliquis -) 5 mg PO BID [facility] Last Admin: 10/06/19 09:37 Dose: 5 mg Bupropion HCl (Wellbutrin Xl -) 150 mg PO DAILY [facility] Last Admin: 10/06/19 09:37 Dose: 150 mg Diltiazem HCl (Cardizem Cd -) 360 mg PO DAILY [facility] Last Admin: 10/06/19 09:37 Dose: 360 mg Furosemide (Lasix Injection -) 60 mg IVPUSH DAILY [facility] Gabapentin (Neurontin -) 400 mg PO TID [facility] Last Admin: 10/06/19 06:53 Dose: 400 mg Guaifenesin (Mucinex -) 600 mg PO DAILY [facility] Last Admin: 10/06/19 09:37 Dose: 600 mg Hydroxychloroquine Sulfate (Plaquenil -) 200 mg PO DAILY [facility] Last Admin: 10/06/19 09:37 Dose: 200 mg Metoprolol Tartrate (Lopressor -) 50 mg PO BID [facility] Last Admin: 10/06/19 09:37 Dose: 50 mg Oxycodone HCl (Roxicodone -) 5 mg PO Q4H PRN PRN Reason: PAIN LEVEL 7 - 10 ASSESSMENT/PLAN: Acute Cellulitis with history of MRSA Acute hypoxic hypercapneic respiratory distress Respiratory acidosis Atypical chest pain Mild Leukocytosis 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 COPD on 2L chronic oxygen History of HTN History of HLD HFrEF not in exacerbation --Repeat ABG with acute on chronic respiratory acidosis --Continue NIPPV; uptitrated settings 10/30/ --Titrate FiO2 89-93% --Continue diuresis Lasix 60mg IVP qdaily --Repeat CXR pending --Discontinue Azactam and Daptomycin --Completed treatment; discussed with ID --Outpatient follow-up with derm and continue wound care --Offload areas of pressure/pressure ulcerations --BCx negative --Pain control with Tylenol PO and Oxycodone 5mg (as per home medication) --Continue Gabapentin 400mg TID for neuropathic pain --Continue Symbicort and Spiriva for COPD maintenance --Continue home medications as below: Eliquis 5mg BID Metoprolol 50mg BID Cardizem 360mg qdaily Plaquenil 200mg qdaily --Physical therapy ordered today FEN: Fluids: None Electrolyte abnormalities: None Nutrition: Regular diet PPX: DVT - Already on Eliquis GI - Pepcid per home medications Dispo: Can d/c cardiac monitoring; isolation for MRSA contact Case discussed with Dr. Yimi Schaeffer, DO - IM PGy-3 <Rocky Schaeffer - Last Filed: 10/06/19 13:08> - Note Progress Note: Seen and examined; please see resident note for further discussion. Agree with their note including assessment and plan as outlined aside from as supplemented myself. Independently reviewed and verified all webb historical and PE findings as well as labs and imaging. Discussed at length with resident and consulting services. Aside from above no overnight events indicated; weights not accurate. Appreciate consulting service input. 10 sys ROS done and negative aside from HPI VS, labs, imaging reviewed NAD AAOx2-3 resting in bed on O2. NC AT EOMI PERRLA HR wnl, s1/2; peripheral edema 1-2+ intertwined with b/l LE sym dependent edema changes with undelrying stasis dermatitis that is stable and doesn't appear acutely infected. Unchanged. Lung exam limited by habitus but with crackles evident moreso near b/l bases, w / sym exp NT ND +BS; morbidly obese CN2-12 wnl, no fnd Normal mood, appropriate behavior No new rashes or skin breakdown noted; chronic venous stasis changes noted. Trachea midline without lymphadenopathy June echo noted with poor RV visualization; reordered limited study given the elevated BNP to r/o component of RV failure. A/P: Patient presented with chronic stasis dermatitis and has completed their abx per ID. They remain hospitalized due to their acute on chronic mixed respiratory failure. A large amount of CHF is playing into it and I am investigating if there is a part of RV failure. I increased IV lasix to IV 60 QD and we will monitor closely. Continue with qHS BiPap as directed and FU on AM ABG to r/o component of pickwckian syndrome. Off abx with no s/s infection or sepsis evident; observe per ID. Once acute respiratory issues improve and definitive plan elucidated regarding home diuresis and pulmonary care will be able to be DC'd. Due to her significant degree of deconditioning and multiple complex medical comorbidities I suspect she will need SNF and PT is working with her. We will involve CM/SW early to ensure proper placement. Problems include: Acute Respiratory failure with likely chronic hypoventillatory/LEON component 2/ 2 HFpEF exacerbation; improved -Cardiology and pulmonary following; qHS NIMV and IV lasix -No evidence of ACS, s/p BiPap and Lasix. Missed lasix dose. Not floridly overloaded on exam. EKG OK. -Continue IV lasix, FU CV consult, move to tele and monitor Mg and K and optimize. Strict Is and Os and QD weights. -Assess chronic components once acute resolve with ABG on RA to r/o pickwickian and LEON eval -Considering repeat echo; check flu. CXR noted. Acute cellulitis, resolved -Completed tx; monitor off abx per ID Chronic b/l venous stasis with potential PAD -Followup wound care instructions/vascular instrucitons with Dr. Kaplan. Consider outpatient dermatology followup. Hx HTN, controlled -Will continue current meds but of course defer to cardio. 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 COPD -Management per pulmonary; needs OP PFTs. Hx GERD MCI vs. Dementia -May need formal assessment of capacity in the near future; no acute behavioral changes. Hx Sjogrens Syndrome -Continue home hydroxychloroquine and close followup with her home OP providers. Atypical CP-less likely ACS -Monitor; CV consutl appreciated. Full Code <Nick Geller - Last Filed: 10/06/19 23:13>
[2019-10-06] MEDS: HYDROXYCHLOROQUINE SO4 200 MG TABLET (FP) PO SCH (09:37)
[2019-10-06] MEDS: APIXABAN 5 MG TABLET PO SCH ×2 (09:37→21:07)
[2019-10-06] MEDS: METOPROLOL TARTRATE 50 MG TABLET (FP) PO SCH ×2 (09:37→21:07)
[2019-10-06] MEDS ORDERED: DAPTOMYCIN 500 MG in SODIUM CHLORIDE 50 ML IVPB SCH (10:00)
[2019-10-06] MEDS ORDERED: FUROSEMIDE 40 MG/4 ML INJECTABLE VIAL IVPUSH SCH ×3 (10:00→10:31)
[2019-10-06] MEDS ORDERED: guaiFENesin 600 MG TABLET.ER (FP) PO SCH (10:00)
--- NOTE | 2019-10-06 11:33 | PN ---
Progress Note (short form) - Note Progress Note: s: breathing a little better today. no chest pain, palps, dizziness Current Medications Acetaminophen (Tylenol -) 650 mg PO Q4H PRN PRN Reason: FEVER Last Admin: 10/05/19 22:00 Dose: 650 mg Apixaban (Eliquis -) 5 mg PO BID [facility] Last Admin: 10/06/19 09:37 Dose: 5 mg Bupropion HCl (Wellbutrin Xl -) 150 mg PO DAILY [facility] Last Admin: 10/06/19 09:37 Dose: 150 mg Diltiazem HCl (Cardizem Cd -) 360 mg PO DAILY [facility] Last Admin: 10/06/19 09:37 Dose: 360 mg Furosemide (Lasix Injection -) 60 mg IVPUSH DAILY [facility] Gabapentin (Neurontin -) 400 mg PO TID [facility] Last Admin: 10/06/19 06:53 Dose: 400 mg Guaifenesin (Mucinex -) 600 mg PO DAILY [facility] Last Admin: 10/06/19 09:37 Dose: 600 mg Hydroxychloroquine Sulfate (Plaquenil -) 200 mg PO DAILY [facility] Last Admin: 10/06/19 09:37 Dose: 200 mg Aztreonam 2 gm/ Dextrose 100 mls @ 100 mls/hr IVPB Q8H-IV [facility]; Protocol Last Admin: 10/06/19 09:33 Dose: 100 mls/hr Daptomycin 500 mg/ Sodium (Chloride) 50 mls @ 100 mls/hr IVPB DAILY [facility]; Protocol Last Admin: 10/06/19 09:32 Dose: 100 mls/hr Metoprolol Tartrate (Lopressor -) 50 mg PO BID [facility] Last Admin: 10/06/19 09:37 Dose: 50 mg Oxycodone HCl (Roxicodone -) 5 mg PO Q4H PRN PRN Reason: PAIN LEVEL 7 - 10 Vital Signs Period Temp Pulse Resp BP Sys/William Pulse Ox Last 24 Hr 97.5 F-100.4 F 88-102 17-21 98-118/57-62 93-94 no jvd nad dec breath sounds at bases amilcar aao3 irreg s1s2 no mrg abd nt nd pos bs no jaundice diaphoresis pos dp pt no carotid bruits b/l le edema with chronic stasis changes and cellulitis ecg: afib 96 bpm, nl qtc, no ischemic changes cxr: new congestive changes echo 07/2017: tds. nl lv/rv size/fn. tds for rwma. no comment on diastolic function but e/a ratio 4:1. 1+ david. 1+ mr, rvsp nl echo 06/2019 tds, LA/RA mildly dilated, LV not well visualized grossly nl LV function, trace to mild MR tele: afib, rate ok Assessment/Plan 74 yo with h/o afib on coumadin, htn, hl, morbid obesity, copd, obesity hypoventilation syndrome, severe djd/oa/spinal stenosis, sjogren's, RA, gerd who p/w worsening of her chronic LE cellulitis now with shortness of breath acute on chronic diastolic chf, venous insuff/le edema, shortness of breath - trop neg x 1, EKG no ischemic changes - less likely ACS - bipap as needed - cont iv lasix. monitor Cr, lytes, daily weights cellulitis - mgm't per ID, pmd HTN: - continue current meds chronic Afib: -cont eliquis -rate control with toprol and dilt HPL: -cont home statin
--- NOTE | 2019-10-06 12:02 | PN ---
Progress Note (short form) - Note Progress Note: PULMONARY CONSULTATION DICTATED 10/06/19 IMP ACUTE ON CHRONIC HYPOXEMIC/HYPERCAPNEIC RESPIRATORY FAILURE ACUTE ON CHRONIC DIASTOLIC HF ADVANCED COPD O2 DEPENDENT CELLULITIS HTN HLD RA SJOGRENS SYNDROME LEON/OHS AFIB PLAN NIPPV NEEDED AND HS O2 LASIX INHALED BRONCHODILATORS MONITOR LYTES DAILY WTS F/U CHEST X-RAYS F/U ABGS AFIB DR BABB Problem List - Problems (1) Acute on chronic respiratory failure with hypoxia and hypercapnia Code(s): J96.21 - ACUTE AND CHRONIC RESPIRATORY FAILURE WITH HYPOXIA; J96.22 - ACUTE AND CHRONIC RESPIRATORY FAILURE WITH HYPERCAPNIA (2) Cellulitis Code(s): L03.90 - CELLULITIS, UNSPECIFIED Qualifiers: Site of cellulitis: extremity Site of cellulitis of extremity: lower extremity Laterality: left Qualified Code(s): L03.116 - Cellulitis of left lower limb (3) Diastolic CHF Code(s): I50.30 - UNSPECIFIED DIASTOLIC (CONGESTIVE) HEART FAILURE Qualifiers: Heart failure chronicity: chronic Qualified Code(s): I50.32 - Chronic diastolic (congestive) heart failure (4) Sjogrens syndrome Code(s): M35.00 - SICCA SYNDROME, UNSPECIFIED (5) Atrial fibrillation Code(s): I48.91 - UNSPECIFIED ATRIAL FIBRILLATION Qualifiers: Atrial fibrillation type: permanent Qualified Code(s): I48.21 - Permanent atrial fibrillation (6) Chronic venous stasis Code(s): I87.8 - OTHER SPECIFIED DISORDERS OF VEINS (7) Dermatitis Code(s): L30.9 - DERMATITIS, UNSPECIFIED (8) HLD (hyperlipidemia) Code(s): E78.5 - HYPERLIPIDEMIA, UNSPECIFIED (9) HTN (hypertension) Code(s): I10 - ESSENTIAL (PRIMARY) HYPERTENSION (10) Obesity hypoventilation syndrome Code(s): E66.2 - MORBID (SEVERE) OBESITY WITH ALVEOLAR HYPOVENTILATION (11) Afib Code(s): I48.91 - UNSPECIFIED ATRIAL FIBRILLATION (12) Acute on chronic diastolic (congestive) heart failure Code(s): I50.33 - ACUTE ON CHRONIC DIASTOLIC (CONGESTIVE) HEART FAILURE
[2019-10-06 12:34] LABS: N-TERMINAL BNP 3071.6 pg/ml (5-125)
--- NOTE | 2019-10-06 16:30 | PN ---
Progress Note, Physician History of Present Illness: AWAKE, ALERT TRANSFERRED TO TELE WITH DYSPNEA NO C/O ABDOMINAL OR LEG PAIN NO F/C - Current Medication List Current Medications: Active Medications Acetaminophen (Tylenol -) 650 mg PO Q4H PRN PRN Reason: FEVER Last Admin: 10/05/19 22:00 Dose: 650 mg Apixaban (Eliquis -) 5 mg PO BID [facility] Last Admin: 10/06/19 09:37 Dose: 5 mg Bupropion HCl (Wellbutrin Xl -) 150 mg PO DAILY [facility] Last Admin: 10/06/19 09:37 Dose: 150 mg Diltiazem HCl (Cardizem Cd -) 360 mg PO DAILY [facility] Last Admin: 10/06/19 09:37 Dose: 360 mg Furosemide (Lasix Injection -) 60 mg IVPUSH DAILY [facility] Gabapentin (Neurontin -) 400 mg PO TID [facility] Last Admin: 10/06/19 13:55 Dose: 400 mg Guaifenesin (Mucinex -) 600 mg PO DAILY [facility] Last Admin: 10/06/19 09:37 Dose: 600 mg Hydroxychloroquine Sulfate (Plaquenil -) 200 mg PO DAILY [facility] Last Admin: 10/06/19 09:37 Dose: 200 mg Metoprolol Tartrate (Lopressor -) 50 mg PO BID [facility] Last Admin: 10/06/19 09:37 Dose: 50 mg Oxycodone HCl (Roxicodone -) 5 mg PO Q4H PRN PRN Reason: PAIN LEVEL 7 - 10 - Objective Vital Signs: Vital Signs Temperature 99.0 F 10/06/19 14:51 Pulse Rate 88 10/06/19 14:51 Respiratory Rate 20 10/06/19 14:51 Blood Pressure 113/62 10/06/19 14:51 O2 Sat by Pulse Oximetry (%) 94 L 10/05/19 21:00 Constitutional: Yes: No Distress, Obese Cardiovascular: Yes: Regular Rate and Rhythm, S1, S2 Respiratory: Yes: Diminished Gastrointestinal: Yes: Normal Bowel Sounds, Soft. No: Tenderness Integumentary: Yes: Other (ERYTHEMA LOWER ABDOMEN RESOLVED. + B/L LE STASIS DERMATITIS) Labs: CBC, BMP 10/06/19 05:40 10/06/19 05:40 INR, PTT INR 1.35 (0.83-1.09) H 09/30/19 16:17 Assessment/Plan RECURRENT LOWER ABDOMINAL CELLULITIS- RESOLVED CHRONIC VENOUS STASIS DERMATITIS LE BILATERALLY MULTIPLE ANTIBIOTIC ALLERGIES D/C ANTIBIOTICS, OBSERVE OFF
--- NOTE | 2019-10-06 16:39 | CONS ---
DATE OF CONSULTATION: 10/06/2019 PULMONARY CONSULTATION REFERRING PHYSICIAN: Nick Geller M.D. HISTORY OF PRESENT ILLNESS: The patient is a 74-year-old female known to me from previous office visits. Past medical history of diastolic heart failure, advanced COPD on home O2, 2 L nasal cannula, obstructive sleep apnea, obesity hypoventilation syndrome, congestive heart failure, hyperlipidemia, hypertension, chronic lower extremity edema, history of MRSA cellulitis treated 7 times, treated with multiple admission since 2009, chronic IV antibiotics, rheumatoid arthritis, Sjogren syndrome, admitted to [facility] on September 30 with complaint of increasing lower extremity edema and erythema. Patient has been followed by Dr. Gonzalez at the wound care center, has been placed on Decadron on September 23. Apparently it was helping until the night prior to admission, when she started to feel increasing edema and erythema and swelling at which time she presented to the emergency room. In the ER she was felt to have acute cellulitis. She is started on broad spectrum antibiotics per infectious disease. Of note is hospitalization was significant for on October 05, she started developing acute onset of shortness of breath, hypoxemia. She was placed on Ventimask 15 L and transferred down to the medical telemetry unit for further management. She also was subsequently placed on BiPAP as well as administered Lasix with good clinical response. Denied any complaints of chest pain, nausea, vomiting, diaphoresis. Denies any hemoptysis. Patient did complain of chest pressure. She was evaluated by cardiology who felt that the patient had acute on chronic diastolic heart failure. Patient has history of smoking, quit in 1984. There is no history of occupational exposure to chemicals and fumes. She has been maintained on home oxygen therapy for the past few years. PAST MEDICAL HISTORY: Again includes COPD on home O2, obesity hypoventilation syndrome, chronic lower extremity edema, MRSA cellulitis, rheumatoid arthritis, Sjogren syndrome, hypertension, hyperlipidemia. REVIEW OF SYSTEMS: Positive shortness of breath. Positive chest pressure. No chest pain, no palpitations, no fever, no chills, no hemoptysis, no lower extremity edema. CURRENT MEDICATIONS: Include Tylenol, Azactam, daptomycin, Eliquis, Neurontin, Wellbutrin, Plaquenil, Lopressor, Cardizem CD, Mucinex, Lasix, and Roxicodone. PHYSICAL EXAMINATION: General: The patient is an obese female, awake, alert, on BiPAP in no acute distress. She is currently afebrile. Vital Signs: Heart rate is 88, blood pressure 110/60, respiratory rate 18, O2 saturation is 94% on BiPAP. HEENT: Normocephalic, atraumatic. Neck: Supple. Heart: Irregularly irregular S1, S2. Chest: Diminished breath sounds bilaterally. Abdomen: Soft, bowel sounds positive. Extremities: Bilateral lower extremity chronic changes bilaterally with cellulitis. LABORATORY: Chest x-ray: Bilateral pulmonary vascular congestion, bilateral pleural effusion, possible superimposed by basilar infiltrates. LABORATORY: Blood gas initial pH 7.26, pCO2 of 92, pO2 of 69, bicarbonate of 40 , saturation 93, that was on 50% oxygen. Repeat on BiPAP with an IPAP of 10, EPAP of 5, respiratory rate 14, and FiO2 of 50, 7.29 pH, pCO2 of 87, pO2 of 66, bicarbonate of 40, and a saturation of 92. WBC is 6.9, hemoglobin 12.1, hematocrit 38.6 with a platelet count of 203,000. Chemistries: BUN 36, creatinine 0.4, BNP is 1020. IMPRESSION: 1. Acute on chronic hypercapnic, hypoxemic respiratory failure secondary to acute on chronic diastolic heart failure. 2. Advanced chronic obstructive pulmonary disease oxygen dependent. 3. Cellulitis. 4. Hypertension. 5. Hyperlipidemia. 6. Rheumatoid arthritis. 7. Sjogren syndrome. 8. Obstructive sleep apnea. Obesity hypoventilation syndrome. PLAN: NIPPV as needed as well as hour of sleep. Supplemental O2. Continue Lasix, inhaled bronchodilators, monitor electrolytes, daily weights, follow up chest x- rays, follow up ABGs. BRIDGET BABB M.D. [id number] MTDD
[2019-10-07] MEDS: GABAPENTIN 400 MG CAPSULE (FP) PO SCH ×4 (06:20→21:45)
[2019-10-07 08:34] LABS: HEMOGLOBIN 12.4 GM/dL (10.7-15.3); MCH 26.1 pg (25.7-33.7); MCHC 31.7 g/dl (32.0-36.0); MEAN CELL VOLUME 82.3 fl (80-96); MEAN PLT VOLUME 8.2 fl (7.5-11.1); PLATELET COUNT 220 K/MM3 (134-434); RBC 4.74 M/mm3 (3.60-5.2); RDW 14.8 % (11.6-15.6); WHITE BLOOD COUNT 6.5 K/mm3 (4.0-10.0)
[2019-10-07 09:07] LABS: BLOOD UREA NITROGEN 37.8 mg/dL (7-18); CREATININE 0.3 mg/dL (0.55-1.3); POTASSIUM 4.6 mmol/L (3.5-5.1)
[2019-10-07] MEDS: HYDROXYCHLOROQUINE SO4 200 MG TABLET (FP) PO SCH (10:56)
[2019-10-07] MEDS: APIXABAN 5 MG TABLET PO SCH ×2 (10:56→21:45)
[2019-10-07] MEDS: guaiFENesin 600 MG TABLET.ER (FP) PO SCH (10:56)
[2019-10-07] MEDS: METOPROLOL TARTRATE 50 MG TABLET (FP) PO SCH ×2 (10:56→21:45)
[2019-10-07] MEDS: FUROSEMIDE 40 MG/4 ML INJECTABLE VIAL IVPUSH SCH (10:57)
--- NOTE | 2019-10-07 13:17 | ECHO ---
Name: DOMO NAVARRO Exam:Adult Echocardiogram Study Date: 10/07/2019 10:51 AM Age: 74 yrs Reason For Study: RVF Height: 68 in Weight: 274 lb BSA: 2.3 m2 MMode/2D Measurements & Calculations LAV (MOD-bp): 155.0 ml Doppler Measurements & Calculations MV E max morro: 185.0 cm/sec Ao V2 max: 228.0 cm/sec MV dec time: 0.18 sec Ao max P.8 mmHg Ao V2 mean: 160.8 cm/sec Ao mean P.5 mmHg Ao V2 VTI: 50.4 cm LV V1 max P.1 mmHg MR max morro: 394.4 cm/sec LV V1 mean P.2 mmHg MR max P.3 mmHg LV V1 max: 101.4 cm/sec LV V1 mean: 68.3 cm/sec LV V1 VTI: 18.0 cm TR max morro: 272.8 cm/sec PA V2 max: 145.2 cm/sec TR max P.8 mmHg PA max P.4 mmHg Med Peak E' Morro: 7.9 cm/sec PI Vmax: 161.5 cm/sec Med E/e': 23.3 Lat Peak E' Morro: 13.4 cm/sec Lat E/e': 13.8 Procedure The study was technically difficult with many images being suboptimal in quality. Left Ventricle The left ventricle is not well visualized. The left ventricular size, thickness and function are norm al. The left ventricular ejection fraction is normal. Regional wall motion abnormalities cannot be excluded d ue to limited visualization. Right Ventricle The right ventricle is not well visualized. Atria The left atrium is not well visualized. Right atrium not well visualized. Mitral Valve The mitral valve is not well visualized. There is moderate mitral valve thickening. There is no nicolle l valve stenosis. There is trace to mild mitral regurgitation. Tricuspid Valve The tricuspid valve is not well visualized. There is no tricuspid stenosis. There is Trace to mild tr icuspid regurgitation. Right ventricular systolic pressure is elevated at 30-40mmHg. Pulmonic Valve The pulmonic valve is not well visualized. There is no pulmonic valvular stenosis. Mild pulmonic valv ular regurgitation. Interpretation Summary The study was technically difficult with many images being suboptimal in quality. The left ventricle is not well visualized. Mild pulmonic valvular regurgitation. The left atrium is not well visualized. Right atrium not well visualized. The mitral valve is not well visualized. The left ventricular ejection fraction is normal. The left ventricular size, thickness and function are normal Regional wall motion abnormalities cannot be excluded due to limited visualization. The right ventricle is not well visualized. There is moderate mitral valve thickening. There is trace to mild mitral regurgitation. There is Trace to mild tricuspid regurgitation. Right ventricular systolic pressure is elevated at 30-40mmHg. MD Renard Mcclellan 10/07/2019 01:17 PM
--- NOTE | 2019-10-07 15:29 | PN ---
Progress Note (short form) - Note Progress Note: PULMONARY Does not feel well but unable to further characterize. Does report some shortness of breath. Vital Signs Period Temp Pulse Resp BP Sys/William Pulse Ox Last 24 Hr 97.8 F-98.4 F 84-93 20-20 107-138/45-75 97-97 Gen: mildly tachypneic at rest Heart: RRR Lung: decreased breath sounds at the bases Abd: soft, nontender Ext: + edema CBC, BMP 10/07/19 07:30 10/07/19 07:30 Active Medications Acetaminophen (Tylenol -) 650 mg PO Q4H PRN PRN Reason: FEVER Apixaban (Eliquis -) 5 mg PO BID [facility] Last Admin: 10/07/19 10:56 Dose: 5 mg Bupropion HCl (Wellbutrin Xl -) 150 mg PO DAILY [facility] Last Admin: 10/07/19 10:57 Dose: 150 mg Diltiazem HCl (Cardizem Cd -) 360 mg PO DAILY [facility] Last Admin: 10/07/19 10:57 Dose: 360 mg Furosemide (Lasix Injection -) 60 mg IVPUSH DAILY [facility] Last Admin: 10/07/19 10:57 Dose: 60 mg Gabapentin (Neurontin -) 400 mg PO TID [facility] Last Admin: 10/07/19 14:21 Dose: 400 mg Guaifenesin (Mucinex -) 600 mg PO DAILY [facility] Last Admin: 10/07/19 10:56 Dose: 600 mg Hydroxychloroquine Sulfate (Plaquenil -) 200 mg PO DAILY [facility] Last Admin: 10/07/19 10:56 Dose: 200 mg Metoprolol Tartrate (Lopressor -) 50 mg PO BID [facility] Last Admin: 10/07/19 10:56 Dose: 50 mg Oxycodone HCl (Roxicodone -) 5 mg PO Q4H PRN PRN Reason: PAIN LEVEL 7 - 10 A/P Acute on Chronic Hypoxic and Hypercapneic Respiratory Failure Acute on Chronic Diastolic Heart Failure COPD Atrial Fibrillation HTN Hyperlipidemia RA Sjogren's Syndrome LEON/OHS - continue lasix - monitor urine output, creatinine - daily weights - rate control - continue anticoagulation - BiPAP at night and PRN during day
--- NOTE | 2019-10-07 15:30 | PN ---
Progress Note (short form) - Note Progress Note: s: breathing a little better today. no chest pain, palps, dizziness Current Medications Generic Name Dose Route Start Last Admin Trade Name Rupert PRN Reason Stop Dose Admin Acetaminophen 650 mg 10/06/19 23:11 Tylenol - PO Q4H PRN FEVER Apixaban 5 mg 10/07/19 10:00 10/07/19 10:56 Eliquis - PO 5 mg BID [facility] Administration Bupropion HCl 150 mg 10/07/19 10:00 10/07/19 10:57 Wellbutrin Xl - PO 150 mg DAILY [facility] Administration Diltiazem HCl 360 mg 10/07/19 10:00 10/07/19 10:57 Cardizem Cd - PO 360 mg DAILY [facility] Administration Furosemide 60 mg 10/07/19 10:00 10/07/19 10:57 Lasix Injection - IVPUSH 60 mg DAILY [facility] Administration Gabapentin 400 mg 10/07/19 06:00 10/07/19 14:21 Neurontin - PO 400 mg TID [facility] Administration Guaifenesin 600 mg 10/07/19 10:00 10/07/19 10:56 Mucinex - PO 600 mg DAILY [facility] Administration Hydroxychloroquine Sulfate 200 mg 10/07/19 10:00 10/07/19 10:56 Plaquenil - PO 200 mg DAILY [facility] Administration Metoprolol Tartrate 50 mg 10/07/19 10:00 10/07/19 10:56 Lopressor - PO 50 mg BID [facility] Administration Oxycodone HCl 5 mg 10/06/19 23:11 Roxicodone - PO Q4H PRN PAIN LEVEL 7 - 10 Vital Signs Period Temp Pulse Resp BP Sys/William Pulse Ox Last 24 Hr 97.8 F-98.4 F 84-93 20-20 107-138/45-75 97-97 no jvd nad dec breath sounds at bases amilcar aao3 irreg s1s2 no mrg abd nt nd pos bs no jaundice diaphoresis b/l trace le edema with chronic stasis changes and cellulitis CBC, BMP 10/07/19 07:30 10/07/19 07:30 ecg: afib 96 bpm, nl qtc, no ischemic changes cxr: new congestive changes echo 07/2017: tds. nl lv/rv size/fn. tds for rwma. no comment on diastolic function but e/a ratio 4:1. 1+ david. 1+ mr, rvsp nl echo 06/2019 tds, LA/RA mildly dilated, LV not well visualized grossly nl LV function, trace to mild MR Assessment/Plan 74 yo with h/o afib on coumadin, htn, hl, morbid obesity, copd, obesity hypoventilation syndrome, severe djd/oa/spinal stenosis, sjogren's, RA, gerd who p/w worsening of her chronic LE cellulitis now with shortness of breath acute on chronic diastolic chf, venous insuff/le edema, shortness of breath - no signs acs - bipap as needed - cont iv lasix. monitor Cr, lytes, daily weights cellulitis - mgm't per ID, pmd HTN: - continue current meds chronic Afib: -cont eliquis -rate control with toprol and dilt HPL: -cont home statin
--- NOTE | 2019-10-07 19:19 | PN ---
Progress Note (short form) - Note Progress Note: HPI: No acute events overnight. Pt with NIPPV overnight, however on NC at time of exam. Vital Signs Temperature 98.0 F 10/07/19 14:00 Pulse Rate 88 10/07/19 14:00 Respiratory Rate 20 10/07/19 14:00 Blood Pressure 127/75 10/07/19 14:00 O2 Sat by Pulse Oximetry (%) 97 10/06/19 21:00 PE: General: NAD, awake and alert, hard of hearing HEENT: NCAT, sclera anicteric, MMM LUNG: Improved aeration at the bases, no wheezes or rales CARD: irregularly irregular, normal rate, no murmurs appreciated Abdomen: soft, obese, NT/ND, normoactive BS, no rebound or guarding. Extremities: no calf tenderness, cap refill <2sec, no edema Psych: Calm and cooperative Skin: Venous stasis changes appreciated around leg, strong pulses Microbiology 09/30/19 13:49 Blood - Peripheral Venous Blood Culture - Preliminary NO GROWTH OBTAINED AFTER 48 HOURS, INCUBATION TO CONTINUE FOR 3 DAYS. 09/30/19 13:47 Blood - Peripheral Venous Blood Culture - Preliminary NO GROWTH OBTAINED AFTER 48 HOURS, INCUBATION TO CONTINUE FOR 3 DAYS. Active Medications Acetaminophen (Tylenol -) 650 mg PO Q4H PRN PRN Reason: FEVER Apixaban (Eliquis -) 5 mg PO BID [facility] Last Admin: 10/07/19 10:56 Dose: 5 mg Bupropion HCl (Wellbutrin Xl -) 150 mg PO DAILY [facility] Last Admin: 10/07/19 10:57 Dose: 150 mg Diltiazem HCl (Cardizem Cd -) 360 mg PO DAILY [facility] Last Admin: 10/07/19 10:57 Dose: 360 mg Furosemide (Lasix Injection -) 60 mg IVPUSH DAILY [facility] Last Admin: 10/07/19 10:57 Dose: 60 mg Gabapentin (Neurontin -) 400 mg PO TID [facility] Last Admin: 10/07/19 14:21 Dose: 400 mg Guaifenesin (Mucinex -) 600 mg PO DAILY [facility] Last Admin: 10/07/19 10:56 Dose: 600 mg Hydroxychloroquine Sulfate (Plaquenil -) 200 mg PO DAILY [facility] Last Admin: 10/07/19 10:56 Dose: 200 mg Metoprolol Tartrate (Lopressor -) 50 mg PO BID [facility] Last Admin: 10/07/19 10:56 Dose: 50 mg Oxycodone HCl (Roxicodone -) 5 mg PO Q4H PRN PRN Reason: PAIN LEVEL 7 - 10 ASSESSMENT/PLAN: Acute Cellulitis with history of MRSA Acute hypoxic hypercapneic respiratory distress Respiratory acidosis Atypical chest pain Mild Leukocytosis 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 COPD on 2L chronic oxygen History of HTN History of HLD HFrEF not in exacerbation --NIPPV PRN and HS --Titrate O2 to SpO2 >90% --Continue IV diuresis --Completed ABX treatment for her cellulitis --Pain control with Tylenol PO and Oxycodone 5mg (as per home medication) --Continue Gabapentin 400mg TID for neuropathic pain --Continue Symbicort and Spiriva for COPD maintenance --Continue home medications as below: Eliquis 5mg BID Metoprolol 50mg BID Cardizem 360mg qdaily Plaquenil 200mg qdaily --Physical therapy FEN: Fluids: None Electrolyte abnormalities: None Nutrition: Regular diet PPX: DVT - Already on Eliquis GI - Pepcid per home medications Dispo: isolation for MRSA contact Case discussed with Dr. Yimi Schaeffer, DO - IM PGy-3 <Rocky Schaeffer - Last Filed: 10/07/19 19:30> - Note Progress Note: Seen and examined; agree with above aside from as documented by myself. All webb historical and exam findings independently confirmed and reviewed alongside imaging and diagnostics. I discussed her care at length with the resident team and indicated consultants. Seen and examined; legs stable off abx. No new complaints. Moving off IV to PO then can DC likely with home bipap device. Appreciate subspecialty managemtn. She does not desire rehab services despite qualifying but can verbalize the risks. 10 sys ROS done and negative aside from HPI VS, labs, imaging reviewed NAD, AAO, resting in bed NC AT EOMI PERRLA HR wnl, no fnd Normal mood, appropriate behavior Legs with chronic venous changes without any signs of worsening infection Neck supple with trachea midline CN2-12 wnl, no fnd Aside from chronic changes to b/l LE no new rashes, breakdown, etc. A/P: Acute Respiratory failure with likely chronic hypoventillatory/LEON component 2/ 2 HFpEF exacerbation; improved -Cardiology and pulmonary following; qHS NIMV and IV lasix -No evidence of ACS, s/p BiPap and Lasix. Missed lasix dose. Not floridly overloaded on exam. EKG OK. -Continue IV lasix, FU CV consult, move to tele and monitor Mg and K and optimize. Strict Is and Os and QD weights. -Assess chronic components once acute resolve with ABG on RA to r/o yobanickian and LEON eval -Considering repeat echo; check flu. CXR noted. Acute cellulitis, resolved -Completed tx; monitor off abx per ID Chronic b/l venous stasis with potential PAD -Followup wound care instructions/vascular instrucitons with Dr. Kaplan. Consider outpatient dermatology followup. Hx HTN, controlled -Will continue current meds but of course defer to cardio. Chronic Afib, elevated CV2 score on eliquis -Continue BB and dilt; stable Hx HLD -cont home statin Morbid Obesity -Senior Programmer prior to DC; r/o nafisaian with AM ABG. COPD -Management per pulmonary; needs OP PFTs. Hx GERD MCI vs. Dementia -May need formal assessment of capacity in the near future; no acute behavioral changes. Hx Sjogrens Syndrome -Continue home hydroxychloroquine and close followup with her home OP providers. Atypical CP-less likely ACS -Monitor; CV consutl appreciated. Full Code <Nick Geller - Last Filed: 10/12/19 23:47>
[2019-10-08] MEDS: GABAPENTIN 400 MG CAPSULE (FP) PO SCH ×3 (06:00→21:49)
[2019-10-08 06:30] LABS: ARTERIAL BLD GAS O2 SATURATION 88.8 % (95-98); ARTERIAL BLOOD GAS PO2 58.9 mmHg (80-100); ARTERIAL BLOOD GAS pH 7.34 (7.35-7.45)
[2019-10-08 06:32] LABS: ALLENS TEST POSITIVE
[2019-10-08 06:40] LABS: ARTERIAL BLOOD GAS PCO2 86.3 mmHg (35-45)
[2019-10-08 09:10] LABS: HEMATOCRIT 38.6 % (32.4-45.2); HEMOGLOBIN 12.1 GM/dL (10.7-15.3); MCH 25.8 pg (25.7-33.7); MCHC 31.5 g/dl (32.0-36.0); MEAN PLT VOLUME 7.8 fl (7.5-11.1); PLATELET COUNT 233 K/MM3 (134-434); RBC 4.71 M/mm3 (3.60-5.2); RDW 15.2 % (11.6-15.6); WHITE BLOOD COUNT 5.3 K/mm3 (4.0-10.0)
[2019-10-08 09:47] LABS: BLOOD UREA NITROGEN 29.4 mg/dL (7-18); CALCIUM 8.7 mg/dL (8.5-10.1); CREATININE 0.2 mg/dL (0.55-1.3); MAGNESIUM 1.9 mg/dL (1.8-2.4); POTASSIUM 4.2 mmol/L (3.5-5.1)
[2019-10-08] MEDS: FUROSEMIDE 40 MG/4 ML INJECTABLE VIAL IVPUSH SCH (10:27)
[2019-10-08] MEDS: METOPROLOL TARTRATE 50 MG TABLET (FP) PO SCH ×2 (10:28→21:49)
[2019-10-08] MEDS: guaiFENesin 600 MG TABLET.ER (FP) PO SCH (10:29)
[2019-10-08] MEDS: APIXABAN 5 MG TABLET PO SCH ×2 (10:29→21:49)
[2019-10-08] MEDS: HYDROXYCHLOROQUINE SO4 200 MG TABLET (FP) PO SCH (10:29)
--- NOTE | 2019-10-08 12:08 | PN ---
Progress Note (short form) - Note Progress Note: s: breathing a little better today. no chest pain, palps, dizziness Current Medications Generic Name Dose Route Start Last Admin Trade Name Rupert PRN Reason Stop Dose Admin Acetaminophen 650 mg 10/06/19 23:11 Tylenol - PO Q4H PRN FEVER Apixaban 5 mg 10/07/19 10:00 10/08/19 10:29 Eliquis - PO 5 mg BID [facility] Administration Bupropion HCl 150 mg 10/07/19 10:00 10/08/19 10:30 Wellbutrin Xl - PO 150 mg DAILY [facility] Administration Diltiazem HCl 360 mg 10/07/19 10:00 10/08/19 10:30 Cardizem Cd - PO 360 mg DAILY [facility] Administration Furosemide 60 mg 10/07/19 10:00 10/08/19 10:27 Lasix Injection - IVPUSH 60 mg DAILY [facility] Administration Gabapentin 400 mg 10/07/19 06:00 10/08/19 06:00 Neurontin - PO 400 mg TID [facility] Administration Guaifenesin 600 mg 10/07/19 10:00 10/08/19 10:29 Mucinex - PO 600 mg DAILY [facility] Administration Hydroxychloroquine Sulfate 200 mg 10/07/19 10:00 10/08/19 10:29 Plaquenil - PO 200 mg DAILY [facility] Administration Metoprolol Tartrate 50 mg 10/07/19 10:00 10/08/19 10:28 Lopressor - PO 50 mg BID [facility] Administration Oxycodone HCl 5 mg 10/06/19 23:11 Roxicodone - PO Q4H PRN PAIN LEVEL 7 - 10 Vital Signs Period Temp Pulse Resp BP Sys/William Pulse Ox Last 24 Hr 98.0 F-98.6 F 76-88 20-20 119-127/57-77 91-94 no jvd nad dec breath sounds at bases amilcar aao3 irreg s1s2 no mrg abd nt nd pos bs no jaundice diaphoresis b/l trace le edema with chronic stasis changes and cellulitis CBC, BMP 10/08/19 08:10 10/08/19 08:10 ecg: afib 96 bpm, nl qtc, no ischemic changes cxr: new congestive changes echo 07/2017: tds. nl lv/rv size/fn. tds for rwma. no comment on diastolic function but e/a ratio 4:1. 1+ david. 1+ mr, rvsp nl echo 06/2019: tds, LA/RA mildly dilated, LV not well visualized grossly nl LV function, trace to mild MR echo 09/2019: nl lvef, rvsp 30-40, mild pr Assessment/Plan 74 yo with h/o afib on coumadin, htn, hl, morbid obesity, copd, obesity hypoventilation syndrome, severe djd/oa/spinal stenosis, sjogren's, RA, gerd who p/w worsening of her chronic LE cellulitis now with shortness of breath acute on chronic diastolic chf, venous insuff/le edema, shortness of breath - no signs acs - bipap as needed - cont iv lasix. monitor Cr, lytes, daily weights cellulitis - mgm't per ID, pmd HTN: - continue current meds chronic Afib: -cont eliquis -rate control with toprol and dilt HPL: -cont home statin
--- NOTE | 2019-10-08 13:20 | PN ---
Progress Note (short form) - Note Progress Note: PULMONARY More alert today. Does not remember yesterday. ABG improving. Vital Signs Period Temp Pulse Resp BP Sys/William Pulse Ox Last 24 Hr 98.0 F-98.8 F 76-93 18-20 119-128/51-77 91-94 Gen: mildly tachypneic at rest Heart: RRR Lung: decreased breath sounds at the bases Abd: soft, nontender Ext: + edema CBC, BMP 10/08/19 08:10 10/08/19 08:10 Active Medications Acetaminophen (Tylenol -) 650 mg PO Q4H PRN PRN Reason: FEVER Apixaban (Eliquis -) 5 mg PO BID [facility] Last Admin: 10/08/19 10:29 Dose: 5 mg Bupropion HCl (Wellbutrin Xl -) 150 mg PO DAILY [facility] Last Admin: 10/08/19 10:30 Dose: 150 mg Diltiazem HCl (Cardizem Cd -) 360 mg PO DAILY [facility] Last Admin: 10/08/19 10:30 Dose: 360 mg Furosemide (Lasix Injection -) 60 mg IVPUSH DAILY [facility] Last Admin: 10/08/19 10:27 Dose: 60 mg Gabapentin (Neurontin -) 400 mg PO TID [facility] Last Admin: 10/08/19 06:00 Dose: 400 mg Guaifenesin (Mucinex -) 600 mg PO DAILY [facility] Last Admin: 10/08/19 10:29 Dose: 600 mg Hydroxychloroquine Sulfate (Plaquenil -) 200 mg PO DAILY [facility] Last Admin: 10/08/19 10:29 Dose: 200 mg Metoprolol Tartrate (Lopressor -) 50 mg PO BID [facility] Last Admin: 10/08/19 10:28 Dose: 50 mg Nystatin (Mycostatin Ointment -) 1 applic TP BID [facility] Oxycodone HCl (Roxicodone -) 5 mg PO Q4H PRN PRN Reason: PAIN LEVEL 7 - 10 A/P Acute on Chronic Hypoxic and Hypercapneic Respiratory Failure Acute on Chronic Diastolic Heart Failure COPD Atrial Fibrillation HTN Hyperlipidemia RA Sjogren's Syndrome LEON/OHS - continue lasix - monitor urine output, creatinine - daily weights - rate control - continue anticoagulation - BiPAP at night and PRN during day
[2019-10-08] MEDS: oxyCODONE HCL 5 MG TABLET PO PRN (15:39)
[2019-10-08] MEDS: NYSTATIN 100000 UNIT/GM TOPICAL OINTMENT 15 GM TUBE TP SCH ×2 (18:02→21:57)
--- NOTE | 2019-10-08 20:52 | PN ---
Progress Note (short form) - Note Progress Note: HPI: No acute events overnight. Pt with NIPPV overnight, however on NC at time of exam. PE: General: NAD, awake and alert, hard of hearing HEENT: NCAT, sclera anicteric, MMM LUNG: Improved aeration at the bases, no wheezes or rales CARD: irregularly irregular, normal rate, no murmurs appreciated Abdomen: soft, obese, NT/ND, normoactive BS, no rebound or guarding. : Dermatitis noted Extremities: no calf tenderness, cap refill <2sec, no edema Psych: Calm and cooperative Skin: Venous stasis changes appreciated around leg, strong pulses Microbiology 09/30/19 13:49 Blood - Peripheral Venous Blood Culture - Preliminary NO GROWTH OBTAINED AFTER 48 HOURS, INCUBATION TO CONTINUE FOR 3 DAYS. 09/30/19 13:47 Blood - Peripheral Venous Blood Culture - Preliminary NO GROWTH OBTAINED AFTER 48 HOURS, INCUBATION TO CONTINUE FOR 3 DAYS. Active Medications Acetaminophen (Tylenol -) 650 mg PO Q4H PRN PRN Reason: FEVER Last Admin: 10/08/19 21:51 Dose: 650 mg Apixaban (Eliquis -) 5 mg PO BID [facility] Last Admin: 10/08/19 21:49 Dose: 5 mg Bupropion HCl (Wellbutrin Xl -) 150 mg PO DAILY [facility] Last Admin: 10/08/19 10:30 Dose: 150 mg Diltiazem HCl (Cardizem Cd -) 360 mg PO DAILY [facility] Last Admin: 10/08/19 10:30 Dose: 360 mg Furosemide (Lasix Injection -) 60 mg IVPUSH DAILY [facility] Last Admin: 10/08/19 10:27 Dose: 60 mg Gabapentin (Neurontin -) 400 mg PO TID [facility] Last Admin: 10/08/19 21:49 Dose: 400 mg Guaifenesin (Mucinex -) 600 mg PO DAILY [facility] Last Admin: 10/08/19 10:29 Dose: 600 mg Hydroxychloroquine Sulfate (Plaquenil -) 200 mg PO DAILY [facility] Last Admin: 10/08/19 10:29 Dose: 200 mg Metoprolol Tartrate (Lopressor -) 50 mg PO BID [facility] Last Admin: 10/08/19 21:49 Dose: 50 mg Nystatin (Mycostatin Ointment -) 1 applic TP BID [facility] Last Admin: 10/08/19 21:57 Dose: 1 applic Oxycodone HCl (Roxicodone -) 5 mg PO Q4H PRN PRN Reason: PAIN LEVEL 7 - 10 Last Admin: 10/08/19 15:39 Dose: 5 mg ASSESSMENT/PLAN: Acute Cellulitis with history of MRSA (resolved) Acute hypoxic hypercapneic respiratory distress (improving) Respiratory acidosis (improving; chronic) Dermatitis (acute) Atypical chest pain (resolved) Mild Leukocytosis 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) COPD on 2L chronic oxygen History of HTN History of HLD HFrEF not in exacerbation --NIPPV PRN and HS --Rpt CXR --Titrate O2 to SpO2 >90% --Continue IV diuresis --Added nystatin to be applied to area --Completed ABX treatment for her cellulitis --Pain control with Tylenol PO and Oxycodone 5mg (as per home medication) --Continue Gabapentin 400mg TID for neuropathic pain --Continue Symbicort and Spiriva for COPD maintenance --Continue home medications as below: Eliquis 5mg BID Metoprolol 50mg BID Cardizem 360mg qdaily Plaquenil 200mg qdaily --Physical therapy FEN: Fluids: None Electrolyte abnormalities: None Nutrition: Regular diet PPX: DVT - Already on Eliquis GI - Pepcid per home medications Dispo: isolation for MRSA contact; will need STR placement and Trilogy device Case discussed with Dr. Yimi Schaeffer, DO - IM PGy-3 <Rocky Schaeffer - Last Filed: 10/08/19 23:24> - Note Progress Note: Seen and examined; agree with above aside from as documented by myself. All webb historical and exam findings independently confirmed and reviewed alongside imaging and diagnostics. I discussed her care at length with the resident team and indicated consultants. Seen and examined; legs stable off abx. No new complaints. Moving off IV to PO then can DC likely with home bipap device. Appreciate subspecialty managemtn. She does not desire rehab services despite qualifying but can verbalize the risks. 10 sys ROS done and negative aside from HPI VS, labs, imaging reviewed NAD, AAO, resting in bed NC AT EOMI PERRLA HR wnl, no fnd Normal mood, appropriate behavior Legs with chronic venous changes without any signs of worsening infection Neck supple with trachea midline CN2-12 wnl, no fnd Aside from chronic changes to b/l LE no new rashes, breakdown, etc. A/P: Acute Respiratory failure with likely chronic hypoventillatory/LEON component 2/ 2 HFpEF exacerbation; improved-Needs BIPAP to DC. Acute cellulitis, resolved Chronic b/l venous stasis with potential PAD -Followup wound care instructions/vascular instrucitons with Dr. Kaplan. Consider outpatient dermatology followup. Hx HTN, controlled -Will continue current meds but of course defer to cardio. 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 COPD -Management per pulmonary; needs OP PFTs. Hx GERD MCI vs. Dementia-At baseline Hx Sjogrens Syndrome -Cotinue home hydroxychloroquine and close followup with her home OP providers. Atypical CP-less likely ACS -Monitor; CV consutl appreciated. <Nick Geller - Last Filed: 10/12/19 23:46>
[2019-10-08] MEDS: ACETAMINOPHEN 325 MG TABLET (FP) PO PRN (21:51)
[2019-10-09] MEDS: GABAPENTIN 400 MG CAPSULE (FP) PO SCH ×3 (05:33→22:39)
[2019-10-09 07:53] LABS: HEMATOCRIT 39.8 % (32.4-45.2); HEMOGLOBIN 12.4 GM/dL (10.7-15.3); MCH 25.5 pg (25.7-33.7); MCHC 31.1 g/dl (32.0-36.0); MEAN CELL VOLUME 81.9 fl (80-96); MEAN PLT VOLUME 7.5 fl (7.5-11.1); PLATELET COUNT 232 K/MM3 (134-434); RBC 4.85 M/mm3 (3.60-5.2); RDW 15.2 % (11.6-15.6); WHITE BLOOD COUNT 4.8 K/mm3 (4.0-10.0)
[2019-10-09] MEDS: oxyCODONE HCL 5 MG TABLET PO PRN ×2 (07:54→16:40)
[2019-10-09 08:18] LABS: ANION GAP 4 MMOL/L (8-16); CALCIUM 9.1 mg/dL (8.5-10.1); CHLORIDE 91 mmol/L (98-107); CO2 > 45 mmol/L (21-32); CREATININE 0.3 mg/dL (0.55-1.3); GLUCOSE,RANDOM 79 mg/dL (74-106); MAGNESIUM 1.8 mg/dL (1.8-2.4); POTASSIUM 3.8 mmol/L (3.5-5.1); SODIUM 140 mmol/L (136-145)
--- NOTE | 2019-10-09 08:53 | PN ---
Progress Note (short form) - Note Progress Note: HPI: No acute events overnight. Pt with NIPPV overnight, however on NC at time of exam. No complaints today PE: General: NAD, awake and alert, hard of hearing HEENT: NCAT, sclera anicteric, MMM LUNG: Rales at bases b/l, no wheezes or rales CARD: irregularly irregular, normal rate, no murmurs appreciated Abdomen: soft, obese, NT/ND, normoactive BS, no rebound or guarding. : Dermatitis noted Extremities: no calf tenderness, cap refill <2sec, no edema Psych: Calm and cooperative Skin: Venous stasis changes appreciated around leg, strong pulses CBC, BMP 10/09/19 06:50 10/09/19 06:50 Microbiology 09/30/19 13:49 Blood - Peripheral Venous Blood Culture - Preliminary NO GROWTH OBTAINED AFTER 48 HOURS, INCUBATION TO CONTINUE FOR 3 DAYS. 09/30/19 13:47 Blood - Peripheral Venous Blood Culture - Preliminary NO GROWTH OBTAINED AFTER 48 HOURS, INCUBATION TO CONTINUE FOR 3 DAYS. Active Medications Acetaminophen (Tylenol -) 650 mg PO Q4H PRN PRN Reason: FEVER Last Admin: 10/08/19 21:51 Dose: 650 mg Apixaban (Eliquis -) 5 mg PO BID [facility] Last Admin: 10/08/19 21:49 Dose: 5 mg Bupropion HCl (Wellbutrin Xl -) 150 mg PO DAILY [facility] Last Admin: 10/08/19 10:30 Dose: 150 mg Diltiazem HCl (Cardizem Cd -) 360 mg PO DAILY [facility] Last Admin: 10/08/19 10:30 Dose: 360 mg Furosemide (Lasix Injection -) 60 mg IVPUSH DAILY [facility] Last Admin: 10/08/19 10:27 Dose: 60 mg Gabapentin (Neurontin -) 400 mg PO TID [facility] Last Admin: 10/08/19 21:49 Dose: 400 mg Guaifenesin (Mucinex -) 600 mg PO DAILY [facility] Last Admin: 10/08/19 10:29 Dose: 600 mg Hydroxychloroquine Sulfate (Plaquenil -) 200 mg PO DAILY [facility] Last Admin: 10/08/19 10:29 Dose: 200 mg Metoprolol Tartrate (Lopressor -) 50 mg PO BID [facility] Last Admin: 10/08/19 21:49 Dose: 50 mg Nystatin (Mycostatin Ointment -) 1 applic TP BID [facility] Last Admin: 10/08/19 21:57 Dose: 1 applic Oxycodone HCl (Roxicodone -) 5 mg PO Q4H PRN PRN Reason: PAIN LEVEL 7 - 10 Last Admin: 10/08/19 15:39 Dose: 5 mg ASSESSMENT/PLAN: Acute Cellulitis with history of MRSA (resolved) Acute hypoxic hypercapneic respiratory distress (improving) Respiratory acidosis (improving; chronic) Dermatitis (acute) Atypical chest pain (resolved) Mild Leukocytosis 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) COPD on 2L chronic oxygen History of HTN History of HLD HFrEF not in exacerbation --NIPPV PRN and HS --Rpt CXR noted with increasing R pleural effusion --Titrate O2 to SpO2 >90% --60mg Lasix IVP BID today --Lasix 60mg BID PO tomorrow --Added nystatin to be applied to area --Completed ABX treatment for her cellulitis --Pain control with Tylenol PO and Oxycodone 5mg (as per home medication) --Continue Gabapentin 400mg TID for neuropathic pain --Continue Symbicort and Spiriva for COPD maintenance --Continue home medications as below: Eliquis 5mg BID Metoprolol 50mg BID Cardizem 360mg qdaily Plaquenil 200mg qdaily --Physical therapy FEN: Fluids: None Electrolyte abnormalities: None Nutrition: Regular diet PPX: DVT - Already on Eliquis GI - Pepcid per home medications Dispo: isolation for MRSA contact; will need STR placement and Trilogy device Case discussed with Dr. Yimi Schaeffer, DO - IM PGy-3 <Rocky Shcaeffer - Last Filed: 10/09/19 19:25> - Note Progress Note: Seen and examined; agree with above aside from as documented by myself. All webb historical and exam findings independently confirmed and reviewed alongside imaging and diagnostics. I discussed her care at length with the resident team and indicated consultants. Seen and examined; legs stable off abx. No new complaints. Moving off IV to PO then can DC likely with home bipap device. Appreciate subspecialty management. She does not desire rehab services despite qualifying but can verbalize the risks. 10 sys ROS done and negative aside from HPI VS, labs, imaging reviewed NAD, AAO, resting in bed NC AT EOMI PERRLA HR wnl, no fnd Normal mood, appropriate behavior Legs with chronic venous changes without any signs of worsening infection Neck supple with trachea midline CN2-12 wnl, no fnd Aside from chronic changes to b/l LE no new rashes, breakdown, etc. A/P: Acute Respiratory failure with likely chronic hypoventillatory/LEON component 2/ 2 HFpEF exacerbation; improved-Needs BIPAP to DC. Acute cellulitis, resolved Chronic b/l venous stasis with potential PAD -Followup wound care instructions/vascular instrucitons with Dr. Kaplan. Consider outpatient dermatology followup. Hx HTN, controlled -Will continue current meds but of course defer to cardio. 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 COPD -Management per pulmonary; needs OP PFTs. Hx GERD MCI vs. Dementia-At baseline Hx Sjogrens Syndrome -Cotinue home hydroxychloroquine and close followup with her home OP providers. Atypical CP-less likely ACS -Monitor; CV consutl appreciated. <Nick Geller - Last Filed: 10/12/19 23:48>
--- NOTE | 2019-10-09 09:54 | PN ---
Progress Note, Physician Chief Complaint: feels lightheaded bu no CP, SOB, palps - Current Medication List Current Medications: Active Medications Acetaminophen (Tylenol -) 650 mg PO Q4H PRN PRN Reason: FEVER Last Admin: 10/08/19 21:51 Dose: 650 mg Apixaban (Eliquis -) 5 mg PO BID [facility] Last Admin: 10/08/19 21:49 Dose: 5 mg Bupropion HCl (Wellbutrin Xl -) 150 mg PO DAILY [facility] Last Admin: 10/08/19 10:30 Dose: 150 mg Diltiazem HCl (Cardizem Cd -) 360 mg PO DAILY [facility] Last Admin: 10/08/19 10:30 Dose: 360 mg Furosemide (Lasix Injection -) 60 mg IVPUSH DAILY [facility] Last Admin: 10/08/19 10:27 Dose: 60 mg Gabapentin (Neurontin -) 400 mg PO TID [facility] Last Admin: 10/09/19 05:33 Dose: 400 mg Guaifenesin (Mucinex -) 600 mg PO DAILY [facility] Last Admin: 10/08/19 10:29 Dose: 600 mg Hydroxychloroquine Sulfate (Plaquenil -) 200 mg PO DAILY [facility] Last Admin: 10/08/19 10:29 Dose: 200 mg Metoprolol Tartrate (Lopressor -) 50 mg PO BID [facility] Last Admin: 10/08/19 21:49 Dose: 50 mg Nystatin (Mycostatin Ointment -) 1 applic TP BID [facility] Last Admin: 10/08/19 21:57 Dose: 1 applic Oxycodone HCl (Roxicodone -) 5 mg PO Q4H PRN PRN Reason: PAIN LEVEL 7 - 10 Last Admin: 10/09/19 07:54 Dose: 5 mg - Objective Vital Signs: Vital Signs Temperature 97.3 F L 10/09/19 06:29 Pulse Rate 86 10/09/19 06:29 Respiratory Rate 20 10/09/19 06:29 Blood Pressure 141/63 10/09/19 06:29 O2 Sat by Pulse Oximetry (%) 98 10/09/19 07:59 Constitutional: Yes: No Distress, Calm Eyes: Yes: Conjunctiva Clear Cardiovascular: Yes: Regular Rate and Rhythm Respiratory: Yes: CTA Bilaterally Gastrointestinal: Yes: Soft, Abdomen, Obese Edema: Yes Edema: LLE: Trace, RLE: Trace Neurological: Yes: Alert, Oriented ...Motor Strength: WNL Labs: CBC, BMP 10/09/19 06:50 10/09/19 06:50 INR, PTT INR 1.35 (0.83-1.09) H 09/30/19 16:17 Assessment/Plan ecg: afib 96 bpm, nl qtc, no ischemic changes cxr: new congestive changes echo 07/2017: tds. nl lv/rv size/fn. tds for rwma. no comment on diastolic function but e/a ratio 4:1. 1+ david. 1+ mr, rvsp nl echo 06/2019: tds, LA/RA mildly dilated, LV not well visualized grossly nl LV function, trace to mild MR echo 09/2019: nl lvef, rvsp 30-40, mild pr Assessment/Plan 74 yo with h/o afib on AC, htn, hl, morbid obesity, copd, obesity hypoventilation syndrome, severe djd/oa/spinal stenosis, sjogren's, RA, gerd who p/w worsening of her chronic LE cellulitis now with shortness of breath acute on chronic diastolic chf, venous insuff/le edema, shortness of breath: - no signs acs - bipap as needed - cont iv lasix. monitor Cr, lytes, daily weights -Try to convert to PO over weekend cellulitis: - mgm't per ID, pmd HTN: - continue current meds chronic Afib:: -cont eliquis -rate control with toprol and dilt HPL: -cont home statin
[2019-10-09] MEDS: FUROSEMIDE 40 MG/4 ML INJECTABLE VIAL IVPUSH SCH (10:43)
[2019-10-09] MEDS: METOPROLOL TARTRATE 50 MG TABLET (FP) PO SCH ×2 (10:45→23:34)
[2019-10-09] MEDS: guaiFENesin 600 MG TABLET.ER (FP) PO SCH (10:45)
[2019-10-09] MEDS: ACETAMINOPHEN 325 MG TABLET (FP) PO PRN (10:46)
[2019-10-09] MEDS: APIXABAN 5 MG TABLET PO SCH ×2 (10:46→22:39)
[2019-10-09] MEDS: HYDROXYCHLOROQUINE SO4 200 MG TABLET (FP) PO SCH (10:46)
[2019-10-09] MEDS: NYSTATIN 100000 UNIT/GM TOPICAL OINTMENT 15 GM TUBE TP SCH ×2 (10:50→22:39)
[2019-10-09] MEDS ORDERED: MAGNESIUM SULF 50% (8.12 MEQ/2 ML-1 GM VIAL) IVPB ONE (11:41)
[2019-10-09 13:44] VITALS: BMI 39.6
--- NOTE | 2019-10-09 13:48 | PN ---
Progress Note, Physician History of Present Illness: PULMONARY ALERT,COMFORTABLE,-SOB - Current Medication List Current Medications: Active Medications Acetaminophen (Tylenol -) 650 mg PO Q4H PRN PRN Reason: FEVER Last Admin: 10/09/19 10:46 Dose: 650 mg Apixaban (Eliquis -) 5 mg PO BID [facility] Last Admin: 10/09/19 10:46 Dose: 5 mg Bupropion HCl (Wellbutrin Xl -) 150 mg PO DAILY [facility] Last Admin: 10/09/19 10:45 Dose: 150 mg Diltiazem HCl (Cardizem Cd -) 360 mg PO DAILY [facility] Last Admin: 10/09/19 10:45 Dose: 360 mg Emollient Ointment (Aquaphor -) 1 applic TP DAILY [facility] Furosemide (Lasix Injection -) 60 mg IVPUSH ONCE ONE Stop: 10/09/19 15:33 Furosemide (Lasix -) 60 mg PO BID@0600,1400 [facility] Gabapentin (Neurontin -) 400 mg PO TID [facility] Last Admin: 10/09/19 05:33 Dose: 400 mg Guaifenesin (Mucinex -) 600 mg PO DAILY [facility] Last Admin: 10/09/19 10:45 Dose: 600 mg Hydroxychloroquine Sulfate (Plaquenil -) 200 mg PO DAILY [facility] Last Admin: 10/09/19 10:46 Dose: 200 mg Metoprolol Tartrate (Lopressor -) 50 mg PO BID [facility] Last Admin: 10/09/19 10:45 Dose: 50 mg Nystatin (Mycostatin Ointment -) 1 applic TP BID [facility] Last Admin: 10/09/19 10:50 Dose: 1 applic Oxycodone HCl (Roxicodone -) 5 mg PO Q4H PRN PRN Reason: PAIN LEVEL 7 - 10 Last Admin: 10/09/19 07:54 Dose: 5 mg - Objective Vital Signs: Vital Signs Temperature 97.3 F L 10/09/19 06:29 Pulse Rate 66 10/09/19 10:00 Respiratory Rate 20 10/09/19 06:29 Blood Pressure 145/80 10/09/19 10:00 O2 Sat by Pulse Oximetry (%) 98 10/09/19 07:59 Constitutional: Yes: Well Nourished, Calm Eyes: Yes: WNL HENT: Yes: WNL Neck: Yes: WNL Cardiovascular: Yes: Pulse Irregular, S1, S2 Respiratory: Yes: Diminished Gastrointestinal: Yes: Normal Bowel Sounds, Soft Extremities: Yes: WNL, Other (CHRONIC STASIS CHANGES BILATERALLY) Edema: Yes Labs: CBC, BMP 10/09/19 06:50 10/09/19 06:50 INR, PTT INR 1.35 (0.83-1.09) H 09/30/19 16:17 Problem List - Problems (1) Acute on chronic respiratory failure with hypoxia and hypercapnia Code(s): J96.21 - ACUTE AND CHRONIC RESPIRATORY FAILURE WITH HYPOXIA; J96.22 - ACUTE AND CHRONIC RESPIRATORY FAILURE WITH HYPERCAPNIA (2) Cellulitis Code(s): L03.90 - CELLULITIS, UNSPECIFIED Qualifiers: Site of cellulitis: extremity Site of cellulitis of extremity: lower extremity Laterality: left Qualified Code(s): L03.116 - Cellulitis of left lower limb (3) Diastolic CHF Code(s): I50.30 - UNSPECIFIED DIASTOLIC (CONGESTIVE) HEART FAILURE Qualifiers: Heart failure chronicity: chronic Qualified Code(s): I50.32 - Chronic diastolic (congestive) heart failure (4) Sjogrens syndrome Code(s): M35.00 - SICCA SYNDROME, UNSPECIFIED (5) Atrial fibrillation Code(s): I48.91 - UNSPECIFIED ATRIAL FIBRILLATION Qualifiers: Atrial fibrillation type: permanent Qualified Code(s): I48.21 - Permanent atrial fibrillation (6) Chronic venous stasis Code(s): I87.8 - OTHER SPECIFIED DISORDERS OF VEINS (7) Dermatitis Code(s): L30.9 - DERMATITIS, UNSPECIFIED (8) HLD (hyperlipidemia) Code(s): E78.5 - HYPERLIPIDEMIA, UNSPECIFIED (9) HTN (hypertension) Code(s): I10 - ESSENTIAL (PRIMARY) HYPERTENSION (10) Obesity hypoventilation syndrome Code(s): E66.2 - MORBID (SEVERE) OBESITY WITH ALVEOLAR HYPOVENTILATION (11) Afib Code(s): I48.91 - UNSPECIFIED ATRIAL FIBRILLATION (12) Acute on chronic diastolic (congestive) heart failure Code(s): I50.33 - ACUTE ON CHRONIC DIASTOLIC (CONGESTIVE) HEART FAILURE Assessment/Plan A/P Acute on Chronic Hypoxic and Hypercapneic Respiratory Failure improving Acute on Chronic Diastolic Heart Failure improving COPD Atrial Fibrillation HTN Hyperlipidemia RA Sjogren's Syndrome LEON/OHS - continue lasix - monitor urine output, creatinine - daily weights - rate control - anticoagulation - BiPAP at night and PRN during day DR BABB
[2019-10-09] MEDS: MINERAL OIL/PET HY-PHL TOPICAL OINTMENT 454 GM JAR TP SCH (15:15)
[2019-10-09] MEDS ORDERED: FUROSEMIDE 40 MG/4 ML INJECTABLE VIAL IVPUSH ONE (15:32)
[2019-10-10] MEDS: GABAPENTIN 400 MG CAPSULE (FP) PO SCH ×3 (06:32→21:25)
[2019-10-10 08:07] LABS: HEMATOCRIT 39.7 % (32.4-45.2); HEMOGLOBIN 12.5 GM/dL (10.7-15.3); MCH 25.8 pg (25.7-33.7); MCHC 31.5 g/dl (32.0-36.0); MEAN CELL VOLUME 81.7 fl (80-96); MEAN PLT VOLUME 7.5 fl (7.5-11.1); PLATELET COUNT 244 K/MM3 (134-434); RBC 4.86 M/mm3 (3.60-5.2); RDW 15.1 % (11.6-15.6); WHITE BLOOD COUNT 6.1 K/mm3 (4.0-10.0)
[2019-10-10 08:36] LABS: ANION GAP 7 MMOL/L (8-16); BLOOD UREA NITROGEN 14.5 mg/dL (7-18); CHLORIDE 87 mmol/L (98-107); CO2 > 45 mmol/L (21-32); CREATININE 0.3 mg/dL (0.55-1.3); GLUCOSE,RANDOM 82 mg/dL (74-106); MAGNESIUM 1.8 mg/dL (1.8-2.4); POTASSIUM 4.1 mmol/L (3.5-5.1); SODIUM 139 mmol/L (136-145)
[2019-10-10] MEDS: guaiFENesin 600 MG TABLET.ER (FP) PO SCH (10:28)
[2019-10-10] MEDS: FUROSEMIDE 40 MG TABLET (FP) PO SCH ×2 (10:28→15:18)
[2019-10-10] MEDS: HYDROXYCHLOROQUINE SO4 200 MG TABLET (FP) PO SCH (10:28)
[2019-10-10] MEDS: METOPROLOL TARTRATE 50 MG TABLET (FP) PO SCH ×2 (10:29→21:25)
[2019-10-10] MEDS: MINERAL OIL/PET HY-PHL TOPICAL OINTMENT 454 GM JAR TP SCH (10:29)
[2019-10-10] MEDS: APIXABAN 5 MG TABLET PO SCH ×2 (10:29→21:25)
[2019-10-10] MEDS: NYSTATIN 100000 UNIT/GM TOPICAL OINTMENT 15 GM TUBE TP SCH ×2 (10:30→21:25)
--- NOTE | 2019-10-10 11:53 | PN ---
Progress Note (short form) - Note Progress Note: Patient is still c/o shortness of breath and has no fever or chills she is on bipap at nights no nausea or vomiting she is eating well vs Vital Signs Period Temp Pulse Resp BP Sys/William Pulse Ox Last 24 Hr 97.5 F-97.8 F 71-76 20-20 103-141/55-67 95-97 General: NAD, awake and alert, hard of hearing HEENT: NCAT, sclera anicteric, MMM LUNG: Rales at bases b/l, no wheezes or rales CARD: irregularly irregular, normal rate, no murmurs appreciated Abdomen: soft, obese, NT/ND, normoactive BS, no rebound or guarding. : Dermatitis noted Extremities: no calf tenderness, cap refill <2sec, no edema Psych: Calm and cooperative Skin: Venous stasis changes appreciated around leg, strong pulses and chronic changes CBC, BMP 10/10/19 07:15 10/10/19 07:15 assesment and plan ; Acute on Chronic Hypoxic and Hypercapneic Respiratory Failure improving Acute on Chronic Diastolic Heart Failure improving COPD Atrial Fibrillation HTN Hyperlipidemia RA Sjogren's Syndrome LEON/OHS - continue lasix - monitor urine output, creatinine - daily weights - rate control - eliquis - anticoagulation - BiPAP at night and PRN during day Visit type - Emergency Visit Emergency Visit: Yes ED Registration Date: 09/30/19 Care time: The patient presented to the Emergency Department on the above date and was hospitalized for further evaluation of their emergent condition. - New Patient This patient is new to me today: Yes Date on this admission: 10/10/19 - Critical Care Critical Care patient: No - Discharge Referral Referred to [facility] Med [facility] No
[2019-10-10] MEDS ORDERED: LEVALBUTEROL HCL 0.31 MG/3 ML VIAL.NEB IH PRN (14:28)
--- NOTE | 2019-10-10 14:28 | PN ---
Progress Note, Physician History of Present Illness: pulmonary alert,comfortable,c/o sob in the am,-cp,-cough - Current Medication List Current Medications: Active Medications Acetaminophen (Tylenol -) 650 mg PO Q4H PRN PRN Reason: FEVER Last Admin: 10/09/19 10:46 Dose: 650 mg Apixaban (Eliquis -) 5 mg PO BID [facility] Last Admin: 10/10/19 10:29 Dose: 5 mg Bupropion HCl (Wellbutrin Xl -) 150 mg PO DAILY [facility] Last Admin: 10/10/19 10:28 Dose: 150 mg Diltiazem HCl (Cardizem Cd -) 360 mg PO DAILY [facility] Last Admin: 10/10/19 10:29 Dose: 360 mg Emollient Ointment (Aquaphor -) 1 applic TP DAILY [facility] Last Admin: 10/10/19 10:29 Dose: 1 applic Furosemide (Lasix -) 60 mg PO BID@0600,1400 [facility] Last Admin: 10/10/19 10:28 Dose: 60 mg Gabapentin (Neurontin -) 400 mg PO TID [facility] Last Admin: 10/10/19 06:32 Dose: 400 mg Guaifenesin (Mucinex -) 600 mg PO DAILY [facility] Last Admin: 10/10/19 10:28 Dose: 600 mg Hydroxychloroquine Sulfate (Plaquenil -) 200 mg PO DAILY [facility] Last Admin: 10/10/19 10:28 Dose: 200 mg Metoprolol Tartrate (Lopressor -) 50 mg PO BID [facility] Last Admin: 10/10/19 10:29 Dose: 50 mg Nystatin (Mycostatin Ointment -) 1 applic TP BID [facility] Last Admin: 10/10/19 10:30 Dose: 1 applic - Objective Vital Signs: Vital Signs Temperature 98.3 F 10/10/19 10:00 Pulse Rate 101 H 10/10/19 10:00 Respiratory Rate 20 10/10/19 10:00 Blood Pressure 105/48 L 10/10/19 10:00 O2 Sat by Pulse Oximetry (%) 95 10/10/19 09:00 Constitutional: Yes: Well Nourished, Calm, Obese Eyes: Yes: WNL HENT: Yes: WNL Neck: Yes: WNL Cardiovascular: Yes: Pulse Irregular, S1, S2 Respiratory: Yes: Diminished Gastrointestinal: Yes: Normal Bowel Sounds, Soft Extremities: Yes: Other (chronic stasis changes bilaterally) Edema: Yes Labs: CBC, BMP 10/10/19 07:15 10/10/19 07:15 INR, PTT INR 1.35 (0.83-1.09) H 09/30/19 16:17 Laboratory Tests 10/08/19 06:20 ABG pH 7.34 L ABG pCO2 at Pt Temp 86.3 H* ABG pO2 at Pt Temp 58.9 L ABG HCO3 45.4 H ABG O2 Sat (Measured) 88.8 L Oxygen Flow Rate 3 lpm Problem List - Problems (1) Acute on chronic respiratory failure with hypoxia and hypercapnia Code(s): J96.21 - ACUTE AND CHRONIC RESPIRATORY FAILURE WITH HYPOXIA; J96.22 - ACUTE AND CHRONIC RESPIRATORY FAILURE WITH HYPERCAPNIA (2) Cellulitis Code(s): L03.90 - CELLULITIS, UNSPECIFIED Qualifiers: Site of cellulitis: extremity Site of cellulitis of extremity: lower extremity Laterality: left Qualified Code(s): L03.116 - Cellulitis of left lower limb (3) Diastolic CHF Code(s): I50.30 - UNSPECIFIED DIASTOLIC (CONGESTIVE) HEART FAILURE Qualifiers: Heart failure chronicity: chronic Qualified Code(s): I50.32 - Chronic diastolic (congestive) heart failure (4) Sjogrens syndrome Code(s): M35.00 - SICCA SYNDROME, UNSPECIFIED (5) Atrial fibrillation Code(s): I48.91 - UNSPECIFIED ATRIAL FIBRILLATION Qualifiers: Atrial fibrillation type: permanent Qualified Code(s): I48.21 - Permanent atrial fibrillation (6) Chronic venous stasis Code(s): I87.8 - OTHER SPECIFIED DISORDERS OF VEINS (7) Dermatitis Code(s): L30.9 - DERMATITIS, UNSPECIFIED (8) HLD (hyperlipidemia) Code(s): E78.5 - HYPERLIPIDEMIA, UNSPECIFIED (9) HTN (hypertension) Code(s): I10 - ESSENTIAL (PRIMARY) HYPERTENSION (10) Obesity hypoventilation syndrome Code(s): E66.2 - MORBID (SEVERE) OBESITY WITH ALVEOLAR HYPOVENTILATION (11) Afib Code(s): I48.91 - UNSPECIFIED ATRIAL FIBRILLATION (12) Acute on chronic diastolic (congestive) heart failure Code(s): I50.33 - ACUTE ON CHRONIC DIASTOLIC (CONGESTIVE) HEART FAILURE Assessment/Plan A/P Acute on Chronic Hypoxic and Hypercapneic Respiratory Failure improving Acute on Chronic Diastolic Heart Failure improving COPD Atrial Fibrillation HTN Hyperlipidemia RA Sjogren's Syndrome LEON/OHS - lasix - monitor urine output, creatinine - daily weights - rate control - anticoagulation - BiPAP at night and PRN during day - inhaled bronchodilators - Pt is a good candidate for home trilogy DR BABB
[2019-10-10] MEDS ORDERED: PT OWN MED DRAWER 7, Y5N ONE (17:15)
[2019-10-11] MEDS: FUROSEMIDE 40 MG TABLET (FP) PO SCH ×2 (06:02→14:47)
[2019-10-11] MEDS: GABAPENTIN 400 MG CAPSULE (FP) PO SCH ×3 (06:02→21:21)
[2019-10-11] MEDS: ACETAMINOPHEN 325 MG TABLET (FP) PO PRN ×2 (06:16→11:15)
[2019-10-11] MEDS: HYDROXYCHLOROQUINE SO4 200 MG TABLET (FP) PO SCH (11:14)
[2019-10-11] MEDS: guaiFENesin 600 MG TABLET.ER (FP) PO SCH (11:14)
[2019-10-11] MEDS: METOPROLOL TARTRATE 50 MG TABLET (FP) PO SCH ×2 (11:14→21:21)
[2019-10-11] MEDS: MINERAL OIL/PET HY-PHL TOPICAL OINTMENT 454 GM JAR TP SCH (11:15)
[2019-10-11] MEDS: APIXABAN 5 MG TABLET PO SCH ×2 (11:15→21:21)
[2019-10-11] MEDS: NYSTATIN 100000 UNIT/GM TOPICAL OINTMENT 15 GM TUBE TP SCH ×2 (11:16→21:21)
--- NOTE | 2019-10-11 12:03 | PN ---
Progress Note (short form) - Note Progress Note: No change from yesterday. Patient is still c/o shortness of breath and has no fever or chills she is on bipap at nights no nausea or vomiting she is eating well vs Vital Signs Period Temp Pulse Resp BP Sys/William Pulse Ox Last 24 Hr 97.6 F-98.5 F 74-85 18-20 102-131/36-69 95 General: NAD, awake and alert, hard of hearing HEENT: NCAT, sclera anicteric, MMM LUNG: Rales at bases b/l, no wheezes or rales CARD: irregularly irregular, normal rate, no murmurs appreciated Abdomen: soft, obese, NT/ND, normoactive BS, no rebound or guarding. : Dermatitis noted Extremities: no calf tenderness, cap refill <2sec, no edema Psych: Calm and cooperative Skin: Venous stasis changes appreciated around leg, strong pulses and chronic changes CBC, BMP 10/10/19 07:15 10/10/19 07:15 Assessment and plan, Acute on Chronic Hypoxic and Hypercapneic Respiratory Failure improving Acute on Chronic Diastolic Heart Failure improving COPD Atrial Fibrillation HTN Hyperlipidemia RA Sjogren's Syndrome LEON/OHS - continue lasix - monitor urine output, creatinine - daily weights - rate control - eliquis - anticoagulation - BiPAP at night and PRN during day Patient is good in the rehabilitation for her activity to improve before she goes home. Visit type - Emergency Visit Emergency Visit: Yes ED Registration Date: 09/30/19 Care time: The patient presented to the Emergency Department on the above date and was hospitalized for further evaluation of their emergent condition. - New Patient This patient is new to me today: No - Critical Care Critical Care patient: No - Discharge Referral Referred to [facility] No
--- NOTE | 2019-10-11 12:43 | PN ---
Progress Note, Physician History of Present Illness: pulmonary alert,comfortable,-c/o sob - Current Medication List Current Medications: Active Medications Acetaminophen (Tylenol -) 650 mg PO Q4H PRN PRN Reason: FEVER Last Admin: 10/11/19 11:15 Dose: 650 mg Apixaban (Eliquis -) 5 mg PO BID [facility] Last Admin: 10/11/19 11:15 Dose: 5 mg Bupropion HCl (Wellbutrin Xl -) 150 mg PO DAILY [facility] Last Admin: 10/11/19 11:15 Dose: 150 mg Diltiazem HCl (Cardizem Cd -) 360 mg PO DAILY [facility] Last Admin: 10/11/19 11:15 Dose: 360 mg Emollient Ointment (Aquaphor -) 1 applic TP DAILY [facility] Last Admin: 10/11/19 11:15 Dose: 1 applic Furosemide (Lasix -) 60 mg PO BID@0600,1400 [facility] Last Admin: 10/11/19 06:02 Dose: 60 mg Gabapentin (Neurontin -) 400 mg PO TID [facility] Last Admin: 10/11/19 06:02 Dose: 400 mg Guaifenesin (Mucinex -) 600 mg PO DAILY [facility] Last Admin: 10/11/19 11:14 Dose: 600 mg Hydroxychloroquine Sulfate (Plaquenil -) 200 mg PO DAILY [facility] Last Admin: 10/11/19 11:14 Dose: 200 mg Levalbuterol HCl (Xopenex) 0.31 mg IH Q8H PRN PRN Reason: ASTHMA Metoprolol Tartrate (Lopressor -) 50 mg PO BID [facility] Last Admin: 10/11/19 11:14 Dose: 50 mg Nystatin (Mycostatin Ointment -) 1 applic TP BID [facility] Last Admin: 10/11/19 11:16 Dose: 1 applic - Objective Vital Signs: Vital Signs Temperature 98.0 F 10/11/19 08:37 Pulse Rate 82 10/11/19 08:37 Respiratory Rate 18 10/11/19 08:37 Blood Pressure 109/69 10/11/19 08:37 O2 Sat by Pulse Oximetry (%) 95 10/10/19 21:00 Constitutional: Yes: Well Nourished, Calm Eyes: Yes: WNL HENT: Yes: WNL Neck: Yes: WNL Cardiovascular: Yes: Pulse Irregular, S1, S2 Respiratory: Yes: Diminished Gastrointestinal: Yes: Normal Bowel Sounds, Soft Extremities: Yes: Other (amilcar stasis changes) Edema: Yes Labs: Problem List - Problems (1) Acute on chronic respiratory failure with hypoxia and hypercapnia Code(s): J96.21 - ACUTE AND CHRONIC RESPIRATORY FAILURE WITH HYPOXIA; J96.22 - ACUTE AND CHRONIC RESPIRATORY FAILURE WITH HYPERCAPNIA (2) Cellulitis Code(s): L03.90 - CELLULITIS, UNSPECIFIED Qualifiers: Site of cellulitis: extremity Site of cellulitis of extremity: lower extremity Laterality: left Qualified Code(s): L03.116 - Cellulitis of left lower limb (3) Diastolic CHF Code(s): I50.30 - UNSPECIFIED DIASTOLIC (CONGESTIVE) HEART FAILURE Qualifiers: Heart failure chronicity: chronic Qualified Code(s): I50.32 - Chronic diastolic (congestive) heart failure (4) Sjogrens syndrome Code(s): M35.00 - SICCA SYNDROME, UNSPECIFIED (5) Atrial fibrillation Code(s): I48.91 - UNSPECIFIED ATRIAL FIBRILLATION Qualifiers: Atrial fibrillation type: permanent Qualified Code(s): I48.21 - Permanent atrial fibrillation (6) Chronic venous stasis Code(s): I87.8 - OTHER SPECIFIED DISORDERS OF VEINS (7) Dermatitis Code(s): L30.9 - DERMATITIS, UNSPECIFIED (8) HLD (hyperlipidemia) Code(s): E78.5 - HYPERLIPIDEMIA, UNSPECIFIED (9) HTN (hypertension) Code(s): I10 - ESSENTIAL (PRIMARY) HYPERTENSION (10) Obesity hypoventilation syndrome Code(s): E66.2 - MORBID (SEVERE) OBESITY WITH ALVEOLAR HYPOVENTILATION (11) Afib Code(s): I48.91 - UNSPECIFIED ATRIAL FIBRILLATION (12) Acute on chronic diastolic (congestive) heart failure Code(s): I50.33 - ACUTE ON CHRONIC DIASTOLIC (CONGESTIVE) HEART FAILURE Assessment/Plan A/P Acute on Chronic Hypoxic and Hypercapneic Respiratory Failure improving Acute on Chronic Diastolic Heart Failure improving COPD Atrial Fibrillation HTN Hyperlipidemia RA Sjogren's Syndrome LEON/OHS - lasix - monitor urine output, creatinine - daily weights - rate control - anticoagulation - BiPAP at night and PRN during day - inhaled bronchodilators - Pt is a good candidate for home trilogy DR BABB
[2019-10-11] MEDS ORDERED: POLYETHYLENE GLYCOL 3350 119 GM BTL PO ONE ×2 (22:08)
[2019-10-12] MEDS: ACETAMINOPHEN 325 MG TABLET (FP) PO PRN ×3 (06:10→22:50)
[2019-10-12] MEDS: GABAPENTIN 400 MG CAPSULE (FP) PO SCH ×3 (06:10→21:38)
[2019-10-12] MEDS: FUROSEMIDE 40 MG TABLET (FP) PO SCH ×2 (06:10→13:57)
[2019-10-12] MEDS: guaiFENesin 600 MG TABLET.ER (FP) PO SCH (10:13)
[2019-10-12] MEDS: HYDROXYCHLOROQUINE SO4 200 MG TABLET (FP) PO SCH (10:13)
[2019-10-12] MEDS: APIXABAN 5 MG TABLET PO SCH ×2 (10:14→21:38)
[2019-10-12] MEDS: NYSTATIN 100000 UNIT/GM TOPICAL OINTMENT 15 GM TUBE TP SCH ×2 (10:15→21:39)
[2019-10-12] MEDS: MINERAL OIL/PET HY-PHL TOPICAL OINTMENT 454 GM JAR TP SCH (10:15)
[2019-10-12] MEDS: METOPROLOL TARTRATE 50 MG TABLET (FP) PO SCH ×2 (10:18→21:38)
--- NOTE | 2019-10-12 10:31 | PN ---
Progress Note (short form) - Note Progress Note: PULMONARY Denies shortness of breath or chest pain. No cough or wheezing. Vital Signs Period Temp Pulse Resp BP Sys/William Pulse Ox Last 24 Hr 97.3 F-98.1 F 69-111 20-22 97-142/51-75 94-94 Gen: mildly tachypneic at rest Heart: RRR Lung: decreased breath sounds at the bases Abd: soft, nontender Ext: less edema CBC, BMP 10/10/19 07:15 10/10/19 07:15 Active Medications Acetaminophen (Tylenol -) 650 mg PO Q4H PRN PRN Reason: FEVER Last Admin: 10/12/19 09:30 Dose: 650 mg Apixaban (Eliquis -) 5 mg PO BID [facility] Last Admin: 10/12/19 10:14 Dose: 5 mg Bupropion HCl (Wellbutrin Xl -) 150 mg PO DAILY [facility] Last Admin: 10/12/19 10:13 Dose: 150 mg Diltiazem HCl (Cardizem Cd -) 360 mg PO DAILY [facility] Last Admin: 10/12/19 10:13 Dose: 360 mg Emollient Ointment (Aquaphor -) 1 applic TP DAILY [facility] Last Admin: 10/12/19 10:15 Dose: 1 applic Furosemide (Lasix -) 60 mg PO BID@0600,1400 [facility] Last Admin: 10/12/19 06:10 Dose: 60 mg Gabapentin (Neurontin -) 400 mg PO TID [facility] Last Admin: 10/12/19 06:10 Dose: 400 mg Guaifenesin (Mucinex -) 600 mg PO DAILY [facility] Last Admin: 10/12/19 10:13 Dose: 600 mg Hydroxychloroquine Sulfate (Plaquenil -) 200 mg PO DAILY [facility] Last Admin: 10/12/19 10:13 Dose: 200 mg Levalbuterol HCl (Xopenex) 0.31 mg IH Q8H PRN PRN Reason: ASTHMA Metoprolol Tartrate (Lopressor -) 50 mg PO BID [facility] Last Admin: 10/12/19 10:18 Dose: 50 mg Nystatin (Mycostatin Ointment -) 1 applic TP BID [facility] Last Admin: 10/12/19 10:15 Dose: 1 applic A/P Acute on Chronic Hypoxic and Hypercapneic Respiratory Failure Acute on Chronic Diastolic Heart Failure COPD Atrial Fibrillation HTN Hyperlipidemia RA Sjogren's Syndrome LEON/OHS - continue lasix - monitor urine output, creatinine - daily weights - rate control - continue anticoagulation - BiPAP at night and PRN during day - rehab/PT
--- NOTE | 2019-10-12 14:43 | PN ---
Progress Note (short form) - Note Progress Note: s: breathing better. no chest pain, palps, dizziness Current Medications Generic Name Dose Route Start Last Admin Trade Name Freq PRN Reason Stop Dose Admin Acetaminophen 650 mg 10/06/19 23:11 10/12/19 09:30 Tylenol - PO 650 mg Q4H PRN Administration FEVER Apixaban 5 mg 10/07/19 10:00 10/12/19 10:14 Eliquis - PO 5 mg BID [facility] Administration Bupropion HCl 150 mg 10/07/19 10:00 10/12/19 10:13 Wellbutrin Xl - PO 150 mg DAILY [facility] Administration Diltiazem HCl 360 mg 10/07/19 10:00 10/12/19 10:13 Cardizem Cd - PO 360 mg DAILY [facility] Administration Emollient Ointment 1 applic 10/09/19 13:30 10/12/19 10:15 Aquaphor - TP 1 applic DAILY [facility] Administration Furosemide 60 mg 10/10/19 09:00 10/12/19 13:57 Lasix - PO 60 mg BID@0600,1400 [facility] Administration Gabapentin 400 mg 10/07/19 06:00 10/12/19 13:56 Neurontin - PO 400 mg TID [facility] Administration Guaifenesin 600 mg 10/07/19 10:00 10/12/19 10:13 Mucinex - PO 600 mg DAILY [facility] Administration Hydroxychloroquine Sulfate 200 mg 10/07/19 10:00 10/12/19 10:13 Plaquenil - PO 200 mg DAILY [facility] Administration Levalbuterol HCl 0.31 mg 10/10/19 14:28 Xopenex IH Q8H PRN ASTHMA Metoprolol Tartrate 50 mg 10/07/19 10:00 10/12/19 10:18 Lopressor - PO 50 mg BID [facility] Administration Nystatin 1 applic 10/08/19 13:15 10/12/19 10:15 Mycostatin Ointment - TP 1 applic BID [facility] Administration Polyethylene Glycol 17 gm 10/12/19 14:45 Miralax (For Daily Use) - PO 10/12/19 14:46 ONCE ONE Vital Signs Period Temp Pulse Resp BP Sys/William Pulse Ox Last 24 Hr 97.3 F-98.1 F 60-111 15-22 97-142/51-75 94-94 no jvd nad cta bl nl eff aao3 irreg s1s2 no mrg abd nt nd pos bs no jaundice diaphoresis b/l trace le edema with chronic stasis changes and cellulitis CBC, BMP 10/10/19 07:15 10/10/19 07:15 ecg: afib 96 bpm, nl qtc, no ischemic changes cxr: new congestive changes echo 07/2017: tds. nl lv/rv size/fn. tds for rwma. no comment on diastolic function but e/a ratio 4:1. 1+ david. 1+ mr, rvsp nl echo 06/2019: tds, LA/RA mildly dilated, LV not well visualized grossly nl LV function, trace to mild MR echo 09/2019: nl lvef, rvsp 30-40, mild pr Assessment/Plan 74 yo with h/o afib on coumadin, htn, hl, morbid obesity, copd, obesity hypoventilation syndrome, severe djd/oa/spinal stenosis, sjogren's, RA, gerd who p/w worsening of her chronic LE cellulitis now with shortness of breath acute on chronic diastolic chf, venous insuff/le edema, shortness of breath - no signs acs - bipap as needed - cont po lasix for maintenance cellulitis - mgm't per ID, pmd HTN: - continue current meds chronic Afib: -cont eliquis -rate control with toprol and dilt HPL: -cont home statin
[2019-10-12] MEDS ORDERED: POLYETHYLENE GLYCOL 3350 119 GM BTL PO ONE (14:45)
--- NOTE | 2019-10-12 17:47 | PN ---
Progress Note (short form) - Note Progress Note: Hospitalist Medicine Pt states that her SOB has improved today. on 3L NC 02. Used BiPAP overnight. c/ o constipation Vitals 10/12/19 17:32 Temperature 97.9 F Pulse Rate 68 Respiratory 20 Rate Blood Pressure 118/64 Physical exam general: resting in bed. on 3L NC 02, in no acute distress. HEENT: NCAT, PERRLA neck: supple cardio: +irreg irreg. no r/m/g pulm: +decreased breath sounds. no wheezing, crackles or rhonchi. abdomen: nontender, nondistended LE: 1+ pitting edema b/l. wrapped RLE. with chronic changes Laboratory Tests 10/10/19 10/10/19 07:15 07:15 WBC 6.1 Hgb 12.5 Hct 39.7 Plt Count 244 Sodium 139 Potassium 4.1 Chloride 87 L Carbon Dioxide > 45 H BUN 14.5 Creatinine 0.3 L Microbiology 09/30/19 13:49 Blood - Peripheral Venous Blood Culture - Final NO GROWTH AFTER 5 DAYS INCUBATION 09/30/19 13:47 Blood - Peripheral Venous Blood Culture - Final NO GROWTH AFTER 5 DAYS INCUBATION Assessment/plan 74 y/o F from home with HTN, HLD, diastolic CHF , COPD (2L 02 at home), chronic LE edema, MRSA cellulitis in past, RA, Sjogren's, afib on eliquis, who presented for acute cellulitis resolved, acute hypoxic hypercapnic resp distress which is improving. #Acute hypoxic hypercapnic resp distress #COPD on 2L 02 #Acute on chronic diastolic HF #Obesity hypoventilation syndrome -c/w lasix 60mg PO BID, c/t follow I/O, wts. resp status has improved -will need trilogy device at home -for now, BiPAP PRN day, qHS -c/w levalbuterol PRN, mucinex -Pulm on board: Dr. Morales #afib -c/w eliquis for a/c -rate controlled with cardiazem 360mg qd, lopressor 50mg BID -cardio on board: Dr. Cabral #HLD -takes simvastatin at home; non-formulary -will start on lipitor 10mg PO qd while in hosp #constipation -started on miralax daily. will add senna/colace if no BM tomorrow #Sjogren's, RA -c/w hydroxychloroquine #acute cellulitis-resolved #F/E/N avoid IVF/ no vol overload continue to follow lytes low Na diet #PPX DVT: on eliquis #Dispo cont'd monitoring on med-surg; awaiting trilogy device set up prior to d/c <Kiara Tellez - Last Filed: 10/12/19 18:00> - Note Progress Note: Seen and examined; agree with above aside from as documented by myself. All webb historical and exam findings independently confirmed and reviewed alongside imaging and diagnostics. I discussed her care at length with the resident team and indicated consultants. Seen and examined; symptoms resolved. At home O2 requirements. No new complaints. Skin is clear with no rashes or new breakdown. Describes her breathing as good. I met with PT and nursing today and we explained to her she would qualify with rehab. She agreed to work with PT and see what they recommedned. 10 sys ROS done and negative aside from HPI VS, labs, imaging reviewed NAD, AAO, resting in bed NC AT EOMI PERRLA HR wnl, no fnd Normal mood, appropriate behavior Legs with chronic venous changes without any signs of worsening infection Neck supple with trachea midline CN2-12 wnl, no fnd Aside from chronic changes to b/l LE no new rashes, breakdown, etc. A/P: Acute Respiratory failure with likely chronic hypoventillatory/LEON component 2/ 2 HFpEF exacerbation; improved-Needs BIPAP to DC. Acute cellulitis, resolved Chronic b/l venous stasis with potential PAD -Followup wound care instructions/vascular instrucitons with Dr. Kaplan. Consider outpatient dermatology followup. Hx HTN, controlled -Will continue current meds but of course defer to cardio. Chronic Afib, elevated CV2 score on eliquis -Continue BB and dilt; stable Hx HLD -cont home statin Morbid Obesity -Kettle Skimmer prior to discharge. COPD -Management per pulmonary; needs OP PFTs. Hx GERD MCI vs. Dementia-At baseline Hx Sjogrens Syndrome -Cotinue home hydroxychloroquine and close followup with her home OP providers. Atypical CP-less likely ACS -Monitor; CV consutl appreciated. <Nick Geller - Last Filed: 10/12/19 23:49>
[2019-10-12] MEDS: ATORVASTATIN CA 10 MG TABLET (FP) PO SCH (21:38)
[2019-10-13] MEDS: GABAPENTIN 400 MG CAPSULE (FP) PO SCH ×3 (06:24→21:29)
[2019-10-13] MEDS: FUROSEMIDE 40 MG TABLET (FP) PO SCH ×2 (06:24→14:32)
[2019-10-13] MEDS ORDERED: DOCUSATE SODIUM 100 MG CAPSULE (FP) PO ONE (08:30)
[2019-10-13] MEDS ORDERED: SENNOSIDES 8.6MG TABLET (FP) PO ONE (08:30)
[2019-10-13] MEDS: APIXABAN 5 MG TABLET PO SCH ×2 (09:44→21:30)
[2019-10-13] MEDS: guaiFENesin 600 MG TABLET.ER (FP) PO SCH (09:45)
[2019-10-13] MEDS: METOPROLOL TARTRATE 50 MG TABLET (FP) PO SCH ×2 (09:45→21:30)
[2019-10-13 09:46] LABS: ALBUMIN 2.6 g/dl (3.4-5.0); ALK PHOS 103 U/L (45-117); ANION GAP 9 MMOL/L (8-16); BILIRUBIN,TOTAL 0.7 mg/dL (0.2-1); BLOOD UREA NITROGEN 12.7 mg/dL (7-18); CALCIUM 8.9 mg/dL (8.5-10.1); CHLORIDE 84 mmol/L (98-107); CO2 > 45 mmol/L (21-32); CREATININE 0.3 mg/dL (0.55-1.3); GLUCOSE,RANDOM 71 mg/dL (74-106); PHOSPHOROUS 3.8 mg/dL (2.5-4.9); POTASSIUM 3.7 mmol/L (3.5-5.1); SGOT/AST 13 U/L (15-37); SGPT/ALT 15 U/L (13-61); SODIUM 138 mmol/L (136-145); TOT PROT 6.2 g/dl (6.4-8.2)
[2019-10-13] MEDS: HYDROXYCHLOROQUINE SO4 200 MG TABLET (FP) PO SCH (09:46)
--- NOTE | 2019-10-13 10:04 | PN ---
Teaching Attending Note Name of Resident: Kiara Tellez ATTENDING PHYSICIAN STATEMENT I saw and evaluated the patient. I reviewed the resident's note and discussed the case with the resident. I agree with the resident's findings and plan as documented. SUBJECTIVE: No complaints. OBJECTIVE: Vital Signs Period Temp Pulse Resp BP Sys/William Pulse Ox Last 24 Hr 97.6 F-98.1 F 60-80 15-20 97-145/49-66 HEART: Irregular LUNGS: Clear ABDOMEN: Obese, soft, non-tender, non-distended, normal BS EXTREMITIES: 1+ edema, chronic venous stasis changes Laboratory Results - last 24 hr 10/13/19 07:30 Sodium 138 Potassium 3.7 Chloride 84 L Carbon Dioxide > 45 H Anion Gap 9 BUN 12.7 Creatinine 0.3 L Est GFR (CKD-EPI)AfAm 132.57 Est GFR (CKD-EPI)NonAf 114.39 Random Glucose 71 L Calcium 8.9 Phosphorus 3.8 Magnesium 2.0 Total Bilirubin 0.7 AST 13 L ALT 15 Alkaline Phosphatase 103 Total Protein 6.2 L Albumin 2.6 L Current Medications Generic Name Dose Route Start Last Admin Trade Name Freq PRN Reason Stop Dose Admin Acetaminophen 650 mg 10/06/19 23:11 10/12/19 22:50 Tylenol - PO 650 mg Q4H PRN Administration FEVER Apixaban 5 mg 10/07/19 10:00 10/12/19 21:38 Eliquis - PO 5 mg BID [facility] Administration Atorvastatin Calcium 10 mg 10/12/19 22:00 10/12/19 21:38 Lipitor - PO 10 mg HS [facility] Administration Bupropion HCl 150 mg 10/07/19 10:00 10/12/19 10:13 Wellbutrin Xl - PO 150 mg DAILY [facility] Administration Diltiazem HCl 360 mg 10/07/19 10:00 10/12/19 10:13 Cardizem Cd - PO 360 mg DAILY [facility] Administration Emollient Ointment 1 applic 10/09/19 13:30 10/12/19 10:15 Aquaphor - TP 1 applic DAILY [facility] Administration Furosemide 60 mg 10/10/19 09:00 10/13/19 06:24 Lasix - PO 60 mg BID@0600,1400 [facility] Administration Gabapentin 400 mg 10/07/19 06:00 10/13/19 06:24 Neurontin - PO 400 mg TID [facility] Administration Guaifenesin 600 mg 10/07/19 10:00 10/12/19 10:13 Mucinex - PO 600 mg DAILY [facility] Administration Hydroxychloroquine Sulfate 200 mg 10/07/19 10:00 10/12/19 10:13 Plaquenil - PO 200 mg DAILY [facility] Administration Levalbuterol HCl 0.31 mg 10/10/19 14:28 Xopenex IH Q8H PRN ASTHMA Metoprolol Tartrate 50 mg 10/07/19 10:00 10/12/19 21:38 Lopressor - PO 50 mg BID [facility] Administration Nystatin 1 applic 10/08/19 13:15 10/12/19 21:39 Mycostatin Ointment - TP 1 applic BID [facility] Administration Polyethylene Glycol 17 gm 10/13/19 10:00 Miralax (For Daily Use) - PO DAILY [facility] ASSESSMENT AND PLAN: This is a 74 year old woman with a history of atrial fib, HTN, hyperlipidemia, chronic diastolic heart failure, chronic hypoxic respiratory failure, COPD, venous stasis dermatitis, 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 1. Acute and chronic hypoxic respiratory failure secondary to COPD - Continue oxygen to maintain saturation >90% - Awaiting authorization for Trilogy device 2. Recurrent leg/abdominal wall cellulitis - Completed Aztreonam, Daptomycin 3. Acute on chronic diastolic heart failure - Improved - Continue Lasix 4. Chronic venous stasis dermatitis and [place]-forme dermatosis of legs - Continue topical Aquaphor 5. Left renal pole mass 6. Rheumatoid arthritis/Sjogren syndrome - Continue Plaquenil 7. Osteoarthritis 8. Atrial fibrillation, permanent - Continue Lopressor, Cardizem CD, Eliquis 9. HTN - Continue Lopressor, Cardizem CD, Lasix 10. Hyperlipidemia - Continue Lipitor 11. Morbid obesity
--- NOTE | 2019-10-13 10:16 | PN ---
Progress Note (short form) - Note Progress Note: PULMONARY Denies shortness of breath or chest pain. No cough or wheezing. Wants to go home. Vital Signs Period Temp Pulse Resp BP Sys/William Pulse Ox Last 24 Hr 97.6 F-98.1 F 62-80 18-20 97-145/49-66 Intake & Output 10/10/19 10/11/19 10/12/19 10/13/19 23:59 23:59 23:59 23:59 Intake Total 760 800 800 300 Output Total 400 1400 1480 400 Balance 360 -600 -680 -100 Weight 116.8 kg 117.934 kg 117.254 kg 119.34 kg Gen: NAD at rest Heart: RRR Lung: decreased breath sounds at the bases Abd: soft, nontender Ext: no edema CBC, BMP 10/10/19 07:15 10/13/19 07:30 Active Medications Acetaminophen (Tylenol -) 650 mg PO Q4H PRN PRN Reason: FEVER Last Admin: 10/12/19 22:50 Dose: 650 mg Apixaban (Eliquis -) 5 mg PO BID [facility] Last Admin: 10/13/19 09:44 Dose: 5 mg Atorvastatin Calcium (Lipitor -) 10 mg PO HS [facility] Last Admin: 10/12/19 21:38 Dose: 10 mg Bupropion HCl (Wellbutrin Xl -) 150 mg PO DAILY [facility] Last Admin: 10/13/19 09:46 Dose: 150 mg Diltiazem HCl (Cardizem Cd -) 360 mg PO DAILY [facility] Last Admin: 10/13/19 09:45 Dose: 360 mg Emollient Ointment (Aquaphor -) 1 applic TP DAILY [facility] Last Admin: 10/12/19 10:15 Dose: 1 applic Furosemide (Lasix -) 60 mg PO BID@0600,1400 [facility] Last Admin: 10/13/19 06:24 Dose: 60 mg Gabapentin (Neurontin -) 400 mg PO TID [facility] Last Admin: 10/13/19 06:24 Dose: 400 mg Guaifenesin (Mucinex -) 600 mg PO DAILY [facility] Last Admin: 10/13/19 09:45 Dose: 600 mg Hydroxychloroquine Sulfate (Plaquenil -) 200 mg PO DAILY [facility] Last Admin: 10/13/19 09:46 Dose: 200 mg Levalbuterol HCl (Xopenex) 0.31 mg IH Q8H PRN PRN Reason: ASTHMA Metoprolol Tartrate (Lopressor -) 50 mg PO BID [facility] Last Admin: 10/13/19 09:45 Dose: 50 mg Nystatin (Mycostatin Ointment -) 1 applic TP BID [facility] Last Admin: 10/12/19 21:39 Dose: 1 applic Polyethylene Glycol (Miralax (For Daily Use) -) 17 gm PO DAILY [facility] A/P Acute on Chronic Hypoxic and Hypercapneic Respiratory Failure improving Acute on Chronic Diastolic Heart Failure COPD Atrial Fibrillation HTN Hyperlipidemia RA Sjogren's Syndrome LEON/OHS - continue lasix - monitor urine output, creatinine - daily weights - rate control - continue anticoagulation - BiPAP at night and PRN during day - rehab/PT
--- NOTE | 2019-10-13 12:48 | PN ---
Progress Note (short form) - Note Progress Note: s: no chest pain, palps, dizziness, dyspnea Current Medications Acetaminophen (Tylenol -) 650 mg PO Q4H PRN PRN Reason: FEVER Last Admin: 10/12/19 22:50 Dose: 650 mg Apixaban (Eliquis -) 5 mg PO BID [facility] Last Admin: 10/13/19 09:44 Dose: 5 mg Atorvastatin Calcium (Lipitor -) 10 mg PO HS [facility] Last Admin: 10/12/19 21:38 Dose: 10 mg Bupropion HCl (Wellbutrin Xl -) 150 mg PO DAILY [facility] Last Admin: 10/13/19 09:46 Dose: 150 mg Diltiazem HCl (Cardizem Cd -) 360 mg PO DAILY [facility] Last Admin: 10/13/19 09:45 Dose: 360 mg Emollient Ointment (Aquaphor -) 1 applic TP DAILY [facility] Last Admin: 10/12/19 10:15 Dose: 1 applic Furosemide (Lasix -) 60 mg PO BID@0600,1400 [facility] Last Admin: 10/13/19 06:24 Dose: 60 mg Gabapentin (Neurontin -) 400 mg PO TID [facility] Last Admin: 10/13/19 06:24 Dose: 400 mg Guaifenesin (Mucinex -) 600 mg PO DAILY [facility] Last Admin: 10/13/19 09:45 Dose: 600 mg Hydroxychloroquine Sulfate (Plaquenil -) 200 mg PO DAILY [facility] Last Admin: 10/13/19 09:46 Dose: 200 mg Levalbuterol HCl (Xopenex) 0.31 mg IH Q8H PRN PRN Reason: ASTHMA Metoprolol Tartrate (Lopressor -) 50 mg PO BID [facility] Last Admin: 10/13/19 09:45 Dose: 50 mg Nystatin (Mycostatin Ointment -) 1 applic TP BID [facility] Last Admin: 10/12/19 21:39 Dose: 1 applic Polyethylene Glycol (Miralax (For Daily Use) -) 17 gm PO DAILY [facility] Vital Signs Period Temp Pulse Resp BP Sys/William Pulse Ox Last 24 Hr 97.6 F-98.1 F 62-80 18-20 97-145/49-66 no jvd nad cta bl nl eff aao3 irreg s1s2 no mrg abd nt nd pos bs no jaundice diaphoresis b/l trace le edema with chronic stasis changes and cellulitis ecg: afib 96 bpm, nl qtc, no ischemic changes cxr: new congestive changes echo 07/2017: tds. nl lv/rv size/fn. tds for rwma. no comment on diastolic function but e/a ratio 4:1. 1+ david. 1+ mr, rvsp nl echo 06/2019: tds, LA/RA mildly dilated, LV not well visualized grossly nl LV function, trace to mild MR echo 09/2019: nl lvef, rvsp 30-40, mild pr Assessment/Plan 74 yo with h/o afib on coumadin, htn, hl, morbid obesity, copd, obesity hypoventilation syndrome, severe djd/oa/spinal stenosis, sjogren's, RA, gerd who p/w worsening of her chronic LE cellulitis now with shortness of breath acute on chronic diastolic chf, venous insuff/le edema, shortness of breath - no signs acs - bipap as needed - cont po lasix for maintenance cellulitis - mgm't per ID, pmd HTN: - continue current meds chronic Afib: -cont eliquis -rate control with toprol and dilt HPL: -cont home statin
[2019-10-13] MEDS: POLYETHYLENE GLYCOL 3350 119 GM BTL PO SCH (14:31)
--- NOTE | 2019-10-13 16:04 | PN ---
Progress Note (short form) - Note Progress Note: Hospitalist Medicine Pt on BiPAP overnight. Resting comfortably , on 2L NC. Would like to go home. Awaiting Trilogy authorization Vitals 10/12/19 17:32 Temperature 97.9 F Pulse Rate 68 Respiratory 20 Rate Blood Pressure 118/64 Physical exam general: resting in bed. on 2L NC 02, in no acute distress. HEENT: NCAT, PERRLA neck: supple cardio: +irreg irreg. no r/m/g pulm: +decreased breath sounds. no wheezing, crackles or rhonchi. abdomen: nontender, nondistended LE: 1+ pitting edema b/l. wrapped RLE. with chronic changes Laboratory Tests 10/13/19 07:30 Sodium 138 Potassium 3.7 Chloride 84 L Carbon Dioxide > 45 H BUN 12.7 Creatinine 0.3 L Random Glucose 71 L Calcium 8.9 Magnesium 2.0 Total Bilirubin 0.7 Microbiology 09/30/19 13:49 Blood - Peripheral Venous Blood Culture - Final NO GROWTH AFTER 5 DAYS INCUBATION 09/30/19 13:47 Blood - Peripheral Venous Blood Culture - Final NO GROWTH AFTER 5 DAYS INCUBATION Assessment/plan 74 y/o F from home with HTN, HLD, diastolic CHF , COPD (2L 02 at home), chronic LE edema, MRSA cellulitis in past, RA, Sjogren's, afib on eliquis, who presented for acute cellulitis resolved, acute hypoxic hypercapnic resp distress which is improving. #Acute hypoxic hypercapnic resp distress #COPD on 2L 02 #Acute on chronic diastolic HF #Obesity hypoventilation syndrome -c/w lasix 60mg PO BID, c/t follow I/O, wts. resp status has improved -will need trilogy device at home; awaiting authorization -for now, BiPAP PRN day, qHS -c/w levalbuterol PRN, mucinex -Pulm on board: Dr. Morales #afib -c/w eliquis for a/c -rate controlled with cardiazem 360mg qd, lopressor 50mg BID -cardio on board: Dr. Cabral #HLD -takes simvastatin at home; non-formulary -will start on lipitor 10mg PO qd while in hosp #constipation -started on miralax daily #Sjogren's, RA -c/w hydroxychloroquine #acute cellulitis-resolved #F/E/N avoid IVF/ no vol overload continue to follow lytes low Na diet #PPX DVT: on eliquis #Dispo cont'd monitoring on med-surg; awaiting trilogy device set up prior to d/c: Due to chronic respiratory failure subsequent to Chronic Obstructive Pulmonary Disease, patient has tried and failed on BiPAP and requires a non-invasive ventilator in PAC mode to improve pulmonary functions and reduce hospital readmissions.
[2019-10-13] MEDS: MINERAL OIL/PET HY-PHL TOPICAL OINTMENT 454 GM JAR TP SCH (19:01)
[2019-10-13] MEDS: NYSTATIN 100000 UNIT/GM TOPICAL OINTMENT 15 GM TUBE TP SCH ×2 (19:04→21:31)
[2019-10-13] MEDS: ATORVASTATIN CA 10 MG TABLET (FP) PO SCH (21:30)
[2019-10-13] MEDS ORDERED: SENNOSIDES 8.6MG TABLET (FP) PO SCH (22:00)
[2019-10-14] MEDS: FUROSEMIDE 40 MG TABLET (FP) PO SCH ×2 (06:27→13:36)
[2019-10-14] MEDS: GABAPENTIN 400 MG CAPSULE (FP) PO SCH ×2 (06:27→13:37)
[2019-10-14 08:56] LABS: ALBUMIN 2.7 g/dl (3.4-5.0); ALK PHOS 104 U/L (45-117); ANION GAP 11 MMOL/L (8-16); BILIRUBIN,TOTAL 0.4 mg/dL (0.2-1); BLOOD UREA NITROGEN 12.6 mg/dL (7-18); CALCIUM 8.9 mg/dL (8.5-10.1); CHLORIDE 84 mmol/L (98-107); CO2 > 45 mmol/L (21-32); CREATININE 0.4 mg/dL (0.55-1.3); GLUCOSE,RANDOM 83 mg/dL (74-106); MAGNESIUM 1.9 mg/dL (1.8-2.4); PHOSPHOROUS 3.7 mg/dL (2.5-4.9); POTASSIUM 3.6 mmol/L (3.5-5.1); SGOT/AST 11 U/L (15-37); SGPT/ALT 15 U/L (13-61); SODIUM 140 mmol/L (136-145); TOT PROT 6.2 g/dl (6.4-8.2)
[2019-10-14] MEDS ORDERED: DOCUSATE SODIUM 100 MG CAPSULE (FP) PO SCH (10:00)
[2019-10-14] MEDS ORDERED: PT OWN MED DRAWER 7, Y5N ONE ×2 (10:04→10:16)
[2019-10-14] MEDS: APIXABAN 5 MG TABLET PO SCH (10:06)
[2019-10-14] MEDS: METOPROLOL TARTRATE 50 MG TABLET (FP) PO SCH (10:06)
[2019-10-14] MEDS: POLYETHYLENE GLYCOL 3350 119 GM BTL PO SCH (10:07)
[2019-10-14] MEDS: HYDROXYCHLOROQUINE SO4 200 MG TABLET (FP) PO SCH (10:08)
[2019-10-14] MEDS: guaiFENesin 600 MG TABLET.ER (FP) PO SCH (10:08)
[2019-10-14] MEDS: NYSTATIN 100000 UNIT/GM TOPICAL OINTMENT 15 GM TUBE TP SCH (10:09)
[2019-10-14] MEDS: MINERAL OIL/PET HY-PHL TOPICAL OINTMENT 454 GM JAR TP SCH (10:09)
--- NOTE | 2019-10-14 10:54 | PN ---
Teaching Attending Note Name of Resident: Kiara Tellez ATTENDING PHYSICIAN STATEMENT I saw and evaluated the patient. I reviewed the resident's note and discussed the case with the resident. I agree with the resident's findings and plan as documented. SUBJECTIVE: No complaints. OBJECTIVE: Vital Signs Period Temp Pulse Resp BP Sys/William Pulse Ox Last 24 Hr 97.6 F-98.0 F 66-82 15-20 106-132/54-64 96 HEART: Irregular LUNGS: Clear ABDOMEN: Obese, soft, non-tender, non-distended, normal BS EXTREMITIES: 1+ edema, chronic venous stasis changes Laboratory Results - last 24 hr 10/14/19 07:00 Sodium 140 Potassium 3.6 Chloride 84 L Carbon Dioxide > 45 H Anion Gap 11 BUN 12.6 Creatinine 0.4 L Est GFR (CKD-EPI)AfAm 120.60 Est GFR (CKD-EPI)NonAf 104.06 Random Glucose 83 Calcium 8.9 Phosphorus 3.7 Magnesium 1.9 Total Bilirubin 0.4 AST 11 L ALT 15 Alkaline Phosphatase 104 Total Protein 6.2 L Albumin 2.7 L Current Medications Generic Name Dose Route Start Last Admin Trade Name Freq PRN Reason Stop Dose Admin Acetaminophen 650 mg 10/06/19 23:11 10/12/19 22:50 Tylenol - PO 650 mg Q4H PRN Administration FEVER Apixaban 5 mg 10/07/19 10:00 10/14/19 10:06 Eliquis - PO 5 mg BID [facility] Administration Atorvastatin Calcium 10 mg 10/12/19 22:00 10/13/19 21:30 Lipitor - PO 10 mg HS [facility] Administration Bupropion HCl 150 mg 10/07/19 10:00 10/14/19 10:08 Wellbutrin Xl - PO 150 mg DAILY [facility] Administration Diltiazem HCl 360 mg 10/07/19 10:00 10/14/19 10:06 Cardizem Cd - PO 360 mg DAILY [facility] Administration Docusate Sodium 100 mg 10/14/19 10:00 10/14/19 10:06 Colace - PO 100 mg DAILY [facility] Administration Emollient Ointment 1 applic 10/09/19 13:30 10/14/19 10:09 Aquaphor - TP 1 applic DAILY [facility] Administration Furosemide 60 mg 10/10/19 09:00 10/14/19 06:27 Lasix - PO 60 mg BID@0600,1400 [facility] Administration Gabapentin 400 mg 10/07/19 06:00 10/14/19 06:27 Neurontin - PO 400 mg TID [facility] Administration Guaifenesin 600 mg 10/07/19 10:00 10/14/19 10:08 Mucinex - PO 600 mg DAILY [facility] Administration Hydroxychloroquine Sulfate 200 mg 10/07/19 10:00 10/14/19 10:08 Plaquenil - PO 200 mg DAILY [facility] Administration Levalbuterol HCl 0.31 mg 10/10/19 14:28 Xopenex IH Q8H PRN ASTHMA Metoprolol Tartrate 50 mg 10/07/19 10:00 10/14/19 10:06 Lopressor - PO 50 mg BID [facility] Administration Nystatin 1 applic 10/08/19 13:15 10/14/19 10:09 Mycostatin Ointment - TP 1 applic BID [facility] Administration Polyethylene Glycol 17 gm 10/13/19 10:00 10/14/19 10:07 Miralax (For Daily Use) - PO 17 gm DAILY [facility] Administration Senna 1 tab 10/13/19 22:00 10/13/19 21:30 Senna - PO 1 tab HS [facility] Administration ASSESSMENT AND PLAN: This is a 74 year old woman with a history of atrial fib, HTN, hyperlipidemia, chronic diastolic heart failure, chronic hypoxic respiratory failure, COPD, venous stasis dermatitis, 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 1. Acute and chronic hypoxic respiratory failure secondary to COPD - Continue oxygen to maintain saturation >90% - Has Trilogy at home 2. Recurrent leg/abdominal wall cellulitis - Completed Aztreonam, Daptomycin 3. Acute on chronic diastolic heart failure - Improved - Continue Lasix 4. Chronic venous stasis dermatitis and [place]-forme dermatosis of legs - Continue topical Aquaphor 5. Left renal pole mass 6. Rheumatoid arthritis/Sjogren syndrome - Continue Plaquenil 7. Osteoarthritis 8. Atrial fibrillation, permanent - Continue Lopressor, Cardizem CD, Eliquis 9. HTN - Continue Lopressor, Cardizem CD, Lasix 10. Hyperlipidemia - Continue Lipitor 11. Morbid obesity 12. Disposition - Ok for discharge home
[2019-10-14 11:30] VITALS: BP 110/70; PULSE 74; TEMP 97.9
--- NOTE | 2019-10-14 12:05 | PN ---
Progress Note (short form) - Note Progress Note: s: no chest pain, palps, dizziness, dyspnea Current Medications Acetaminophen (Tylenol -) 650 mg PO Q4H PRN PRN Reason: FEVER Last Admin: 10/12/19 22:50 Dose: 650 mg Apixaban (Eliquis -) 5 mg PO BID [facility] Last Admin: 10/14/19 10:06 Dose: 5 mg Atorvastatin Calcium (Lipitor -) 10 mg PO HS [facility] Last Admin: 10/13/19 21:30 Dose: 10 mg Bupropion HCl (Wellbutrin Xl -) 150 mg PO DAILY [facility] Last Admin: 10/14/19 10:08 Dose: 150 mg Diltiazem HCl (Cardizem Cd -) 360 mg PO DAILY [facility] Last Admin: 10/14/19 10:06 Dose: 360 mg Docusate Sodium (Colace -) 100 mg PO DAILY [facility] Last Admin: 10/14/19 10:06 Dose: 100 mg Emollient Ointment (Aquaphor -) 1 applic TP DAILY [facility] Last Admin: 10/14/19 10:09 Dose: 1 applic Furosemide (Lasix -) 60 mg PO BID@0600,1400 [facility] Last Admin: 10/14/19 06:27 Dose: 60 mg Gabapentin (Neurontin -) 400 mg PO TID [facility] Last Admin: 10/14/19 06:27 Dose: 400 mg Guaifenesin (Mucinex -) 600 mg PO DAILY [facility] Last Admin: 10/14/19 10:08 Dose: 600 mg Hydroxychloroquine Sulfate (Plaquenil -) 200 mg PO DAILY [facility] Last Admin: 10/14/19 10:08 Dose: 200 mg Levalbuterol HCl (Xopenex) 0.31 mg IH Q8H PRN PRN Reason: ASTHMA Metoprolol Tartrate (Lopressor -) 50 mg PO BID [facility] Last Admin: 10/14/19 10:06 Dose: 50 mg Nystatin (Mycostatin Ointment -) 1 applic TP BID [facility] Last Admin: 10/14/19 10:09 Dose: 1 applic Polyethylene Glycol (Miralax (For Daily Use) -) 17 gm PO DAILY [facility] Last Admin: 10/14/19 10:07 Dose: 17 gm Senna (Senna -) 1 tab PO HS [facility] Last Admin: 10/13/19 21:30 Dose: 1 tab Vital Signs Period Temp Pulse Resp BP Sys/William Pulse Ox Last 24 Hr 97.6 F-98.0 F 66-82 15-20 106-132/54-70 95-96 no jvd nad cta bl nl eff aao3 irreg s1s2 no mrg abd nt nd pos bs no jaundice diaphoresis b/l trace le edema with chronic stasis changes and cellulitis ecg: afib 96 bpm, nl qtc, no ischemic changes cxr: new congestive changes echo 07/2017: tds. nl lv/rv size/fn. tds for rwma. no comment on diastolic function but e/a ratio 4:1. 1+ david. 1+ mr, rvsp nl echo 06/2019: tds, LA/RA mildly dilated, LV not well visualized grossly nl LV function, trace to mild MR echo 09/2019: nl lvef, rvsp 30-40, mild pr Assessment/Plan 74 yo with h/o afib on coumadin, htn, hl, morbid obesity, copd, obesity hypoventilation syndrome, severe djd/oa/spinal stenosis, sjogren's, RA, gerd who p/w worsening of her chronic LE cellulitis now with shortness of breath acute on chronic diastolic chf, venous insuff/le edema, shortness of breath - no signs acs - bipap as needed - cont po lasix for maintenance cellulitis - mgm't per ID, pmd HTN: - continue current meds chronic Afib: -cont eliquis -rate control with toprol and dilt HPL: -cont home statin
--- NOTE | 2019-10-14 14:39 | PN ---
Progress Note (short form) - Note Progress Note: PULMONARY Denies shortness of breath or chest pain. No cough or wheezing. Vital Signs Period Temp Pulse Resp BP Sys/William Pulse Ox Last 24 Hr 97.6 F-98.0 F 66-82 15-20 106-132/54-70 95-96 Gen: NAD at rest Heart: RRR Lung: decreased breath sounds at the bases Abd: soft, nontender Ext: no edema CBC, BMP 10/10/19 07:15 10/14/19 07:00 Active Medications Acetaminophen (Tylenol -) 650 mg PO Q4H PRN PRN Reason: FEVER Last Admin: 10/12/19 22:50 Dose: 650 mg Apixaban (Eliquis -) 5 mg PO BID [facility] Last Admin: 10/14/19 10:06 Dose: 5 mg Atorvastatin Calcium (Lipitor -) 10 mg PO HS [facility] Last Admin: 10/13/19 21:30 Dose: 10 mg Bupropion HCl (Wellbutrin Xl -) 150 mg PO DAILY [facility] Last Admin: 10/14/19 10:08 Dose: 150 mg Diltiazem HCl (Cardizem Cd -) 360 mg PO DAILY [facility] Last Admin: 10/14/19 10:06 Dose: 360 mg Docusate Sodium (Colace -) 100 mg PO DAILY [facility] Last Admin: 10/14/19 10:06 Dose: 100 mg Emollient Ointment (Aquaphor -) 1 applic TP DAILY [facility] Last Admin: 10/14/19 10:09 Dose: 1 applic Furosemide (Lasix -) 60 mg PO BID@0600,1400 [facility] Last Admin: 10/14/19 13:36 Dose: 60 mg Gabapentin (Neurontin -) 400 mg PO TID [facility] Last Admin: 10/14/19 13:37 Dose: 400 mg Guaifenesin (Mucinex -) 600 mg PO DAILY [facility] Last Admin: 10/14/19 10:08 Dose: 600 mg Hydroxychloroquine Sulfate (Plaquenil -) 200 mg PO DAILY [facility] Last Admin: 10/14/19 10:08 Dose: 200 mg Levalbuterol HCl (Xopenex) 0.31 mg IH Q8H PRN PRN Reason: ASTHMA Metoprolol Tartrate (Lopressor -) 50 mg PO BID [facility] Last Admin: 10/14/19 10:06 Dose: 50 mg Nystatin (Mycostatin Ointment -) 1 applic TP BID [facility] Last Admin: 10/14/19 10:09 Dose: 1 applic Polyethylene Glycol (Miralax (For Daily Use) -) 17 gm PO DAILY [facility] Last Admin: 10/14/19 10:07 Dose: 17 gm Senna (Senna -) 1 tab PO HS [facility] Last Admin: 10/13/19 21:30 Dose: 1 tab A/P Acute on Chronic Hypoxic and Hypercapneic Respiratory Failure improving Acute on Chronic Diastolic Heart Failure COPD Atrial Fibrillation HTN Hyperlipidemia RA Sjogren's Syndrome LEON/OHS - continue lasix - monitor urine output, creatinine - daily weights - rate control - continue anticoagulation - BiPAP at night and PRN during day - rehab/PT - d/c planning in progress
--- NOTE | 2019-10-14 18:29 | DS ---
Physical Exam: SUBJECTIVE: Pt on BiPAP overnight. Resting comfortably , on 2L NC. Would like to go home. Trilogy device is set up, as pt already had it at home. OBJECTIVE: Vital Signs Period Temp Pulse Resp BP Sys/William Pulse Ox Last 24 Hr 97.6 F-97.9 F 74-82 20-20 106-116/54-70 95-96 Physical exam general: resting in bed. on 2L NC 02, in no acute distress. HEENT: NCAT, PERRLA neck: supple cardio: +irreg irreg. no r/m/g pulm: +decreased breath sounds. no wheezing, crackles or rhonchi. abdomen: nontender, nondistended LE: 1+ pitting edema b/l. wrapped RLE. with chronic changes LABS Laboratory Results - last 24 hr 10/14/19 07:00 Sodium 140 Potassium 3.6 Chloride 84 L Carbon Dioxide > 45 H Anion Gap 11 BUN 12.6 Creatinine 0.4 L Est GFR (CKD-EPI)AfAm 120.60 Est GFR (CKD-EPI)NonAf 104.06 Random Glucose 83 Calcium 8.9 Phosphorus 3.7 Magnesium 1.9 Total Bilirubin 0.4 AST 11 L ALT 15 Alkaline Phosphatase 104 Total Protein 6.2 L Albumin 2.7 L 09/30/19 09/30/19 09/30/19 13:49 13:49 16:17 WBC 10.8 H MCHC 31.6 L INR 1.35 H ABG pH ABG pCO2 at Pt Temp ABG pO2 at Pt Temp ABG HCO3 ABG O2 Sat (Measured) Sodium 139 Potassium 5.3 H Carbon Dioxide Anion Gap BUN 14.2 Creatinine 0.4 L Iron TIBC Iron Saturation Unsaturated IBC Ferritin Creatine Kinase C-Reactive Protein 8.9 H Albumin Vitamin B12 Serum Folate 10/01/19 10/01/19 10/02/19 06:59 06:59 06:10 WBC 5.3 5.9 MCHC INR ABG pH ABG pCO2 at Pt Temp ABG pO2 at Pt Temp ABG HCO3 ABG O2 Sat (Measured) Sodium 143 Potassium 4.7 Carbon Dioxide 38 H Anion Gap 2 L BUN Creatinine Iron TIBC Iron Saturation Unsaturated IBC Ferritin Creatine Kinase C-Reactive Protein Albumin Vitamin B12 Serum Folate 10/02/19 10/03/19 10/03/19 06:10 06:45 06:45 WBC 7.4 MCHC INR ABG pH ABG pCO2 at Pt Temp ABG pO2 at Pt Temp ABG HCO3 ABG O2 Sat (Measured) Sodium 140 138 Potassium 4.1 4.3 Carbon Dioxide 41 H 41 H Anion Gap 1 L 2 L BUN Creatinine Iron TIBC Iron Saturation Unsaturated IBC Ferritin Creatine Kinase C-Reactive Protein Albumin Vitamin B12 Serum Folate 10/05/19 10/05/19 10/05/19 06:10 06:10 09:41 WBC MCHC INR ABG pH 7.26 L ABG pCO2 at Pt Temp 92.7 H* ABG pO2 at Pt Temp 69.5 L ABG HCO3 40.3 H ABG O2 Sat (Measured) 93.1 L Sodium 135 L Potassium 5.2 H Carbon Dioxide 42 H Anion Gap BUN Creatinine Iron 16 L TIBC 303 Iron Saturation 5 L Unsaturated IBC 287 H Ferritin 117.8 Creatine Kinase 12 L C-Reactive Protein Albumin Vitamin B12 1020 H Serum Folate 21 H 10/05/19 10/06/19 10/06/19 20:45 05:40 06:00 WBC MCHC INR ABG pH 7.29 L ABG pCO2 at Pt Temp 87.0 H* ABG pO2 at Pt Temp 66.8 L ABG HCO3 40.5 H ABG O2 Sat (Measured) 92.7 L Sodium Potassium Carbon Dioxide 42 H Anion Gap BUN 36.9 H Creatinine 0.4 L Iron TIBC Iron Saturation Unsaturated IBC Ferritin Creatine Kinase C-Reactive Protein 12.9 H Albumin Vitamin B12 Serum Folate 10/08/19 10/08/19 10/09/19 06:20 08:10 06:50 WBC MCHC INR ABG pH 7.34 L ABG pCO2 at Pt Temp 86.3 H* ABG pO2 at Pt Temp 58.9 L ABG HCO3 45.4 H ABG O2 Sat (Measured) 88.8 L Sodium Potassium Carbon Dioxide 44 H > 45 H Anion Gap BUN 29.4 H 21.0 H Creatinine 0.2 L 0.3 L Iron TIBC Iron Saturation Unsaturated IBC Ferritin Creatine Kinase C-Reactive Protein Albumin Vitamin B12 Serum Folate 10/10/19 10/13/19 10/14/19 07:15 07:30 07:00 WBC MCHC INR ABG pH ABG pCO2 at Pt Temp ABG pO2 at Pt Temp ABG HCO3 ABG O2 Sat (Measured) Sodium Potassium Carbon Dioxide > 45 H > 45 H > 45 H Anion Gap BUN 14.5 12.7 12.6 Creatinine 0.3 L 0.3 L 0.4 L Iron TIBC Iron Saturation Unsaturated IBC Ferritin Creatine Kinase C-Reactive Protein Albumin 2.6 L 2.7 L Vitamin B12 Serum Folate Microbiology 09/30/19 13:49 Blood - Peripheral Venous Blood Culture - Final NO GROWTH AFTER 5 DAYS INCUBATION 09/30/19 13:47 Blood - Peripheral Venous Blood Culture - Final NO GROWTH AFTER 5 DAYS INCUBATION Imaging 09/30/19: duplex: poor study however (-) DVT 10/03/19 renal sono: solid mass of the mid R kidney measuring 3.1x2.4cm. grossly unchanged from prior study. there is a cyst of the mid R kidney measuring 2.9 x 2.5cm it is mildly complex and has increased in size from prior study. no hydro. 10/05/19 CXR: cardiomegaly, basilar infiltrates 10/06/19 CXR: large heart, congestive changes, progressive infiltrate on the L and in the RUL. fluid in the horizontal fissure. appears worse from previous. Echo: 10/07/19: suboptimal study, however appears that EF is normal. elevated RVSP 10/09/19 CXR: cardiomegaly, degenerative changes, congestive findings, and b/l effusions. HOSPITAL COURSE: Date of Admission:09/30/19 Date of Discharge: 10/14/19 74 y/o F from home with HTN, HLD, diastolic CHF , COPD (2L 02 at home), chronic LE edema, MRSA cellulitis in past, RA, Sjogren's, afib on eliquis, who presented for acute cellulitis resolved, acute hypoxic hypercapnic resp distress which is improving. While pt was in the hospital, she was managed for the following problems: #Acute hypoxic hypercapnic resp distress #COPD on 2L 02 #Acute on chronic diastolic HF #Obesity hypoventilation syndrome -c/w lasix 60mg PO BID, c/t follow I/O, wts. resp status improved. pt was on 40mg BID at home. -pt to continue with trilogy device at home. set up by company. -in hospital, pt was maintained on bipap PRN during day and qHS -was c/t on levalbuterol PRN, mucinex #afib -c/w eliquis for a/c -rate was controlled with cardiazem 360mg qd, lopressor 50mg BID #HLD -c/w statin #constipation -started on miralax daily, which pt can continue at home #Sjogren's, RA -c/w hydroxychloroquine #acute cellulitis-resolved -recurrent lower abdominal cellulitis (resolved during stay) -chronic venous stasis dermatitis of LE - was tx w/ empiric aztreonam/ dapto, which has since been d/c -will have wound care dressings/ wraps changed on RLE on d/c Minutes to complete discharge: 55 Discharge Summary Problems reviewed: Yes Reason For Visit: CELLULITIS Condition: Fair - Instructions Diet, Activity, Other Instructions: You were in the hospital because you had cellulitis in your leg. This has improved with antibiotics. You were also found to have trouble breathing and were managed with a BiPAP, oxygen and a water pill (lasix). You are being sent home, and should use your trilogy machine (breathing machine) as you were before your hospital visit. Per the lung doctor, the company will place you on the appropriate settings for your machine. Medications You may continue to take miralax daily for your constipation as needed. Your dose of lasix (water pill) has been increased from 40mg twice a day, to 60mg twice a day. Please continue this new dose. You have been started on a new inhaler called Levalbuterol. Please take 1 puff every 8 hours as needed when you feel short of breath. You may continue your other home meds Care With CHF or fluid overload, you need to make sure to eat a diet low in salt Please also check your weight daily. If you have fluctuations in your weight or notice you are gaining more weight, please contact your senior net developer architect or primary care doctor since you may need to have your medications adjusted. Your wound dressing on your right leg will need to continue to be changed daily as it was in the hospital. Follow-up Please follow up with: your primary care doctor - 1 week the senior net developer architect who saw you in the Hospital, Dr. Moore - 1 week the pulmonary doctor, Dr. Morales - 1 week If you develop shortness of breath or chest pain, please go to the hospital. Referrals: Roc Moore MD [Staff Physician] - 1 Week Mike Boykin MD [Primary Care Provider] - 1 Week Simon Morales MD, MD [Staff Physician] - 1 Week Disposition: HOME - Home Medications Comprehensive Discharge Medication List: Ambulatory Orders Ascorbate Calcium [Vitamin C] 1,000 mg PO DAILY 08/30/15 Cholecalciferol (Vitamin D3) [Vitamin D3] 1,000 unit PO BID 08/30/15 Cyanocobalamin [Vitamin B12 -] 1,000 mcg PO DAILY 08/30/15 Oxycodone/APAP [Percocet - Must Order Individual Components] 1 each NR QID PRN 08/30/15 Simvastatin 10 mg PO HS 08/30/15 Guaifenesin [Mucinex] 600 mg PO DAILY 06/20/17 Apixaban [Eliquis] 5 mg PO BID 04/22/19 Gabapentin [Neurontin] 400 mg PO TID 05/14/19 Ranitidine HCl [Zantac] 150 mg PO HS 05/14/19 Nystatin Powder [Nystop Powder -] 1 applic TP TID PRN #1 applic 06/16/19 Acetaminophen [Tylenol] 2 tab PO Q6H PRN 09/23/19 Bupropion HCl [Bupropion Xl] 150 mg PO DAILY 09/30/19 Dexamethasone 3 mg PO QID 09/30/19 Metoprolol Tartrate 50 mg PO BID 09/30/19 Diltiazem Cd [Cardizem Cd -] 360 mg PO DAILY cap.cd.24h 10/14/19 Furosemide [Lasix -] 60 mg PO BID@0600,1400 #60 tablet 10/14/19 Hydroxychloroquine So4 [Plaquenil -] 200 mg PO DAILY tablet 10/14/19 Levalbuterol HCl [Xopenex] 0.31 mg IH Q8H PRN #2 inhaler 10/14/19 Mineral Oil/Pet Hy-Phl [Aquaphor -] 1 applic TP DAILY jar 10/14/19 Polyethylene Glycol 3350 [Miralax 119 gm Btl -] 17 gm PO DAILY #1 bottle This patient is new to me today: No Emergency Visit: No Critical Care patient: No - Discharge Referral Referred to [facility] No
== END 2019-10-14 15:24 | disposition home or self-care (01) | DRG 602 ==
LOC: JER 12:32 → JERBED 16:17 → J7W 17:36 → J4W 10-05 15:02 → J8W 10-06 19:14
PROVIDERS: ADMIT Internal Medicine; ATTEND Internal Medicine
PROC: 5A09557 Assistance with Respiratory Ventilation, Greater than 96 Consecutive Hours, Continuous Positive Airway Pressure (ICD-10-PCS; principal; 2019-09-30)
DX: L03.116 Cellulitis of left lower limb (principal); J96.22 Acute and chronic respiratory failure with hypercapnia; J96.21 Acute and chronic respiratory failure with hypoxia; I50.33 Acute on chronic diastolic (congestive) heart failure; Z68.41 Body mass index [BMI] 40.0-44.9, adult; L03.311 Cellulitis of abdominal wall; E87.2 Acidosis; D72.829 Elevated white blood cell count, unspecified; L98.9 Disorder of the skin and subcutaneous tissue, unspecified; J44.9 Chronic obstructive pulmonary disease, unspecified; I11.0 Hypertensive heart disease with heart failure; I48.91 Unspecified atrial fibrillation; E78.5 Hyperlipidemia, unspecified; E66.01 Morbid (severe) obesity due to excess calories; K59.00 Constipation, unspecified; G47.33 Obstructive sleep apnea (adult) (pediatric); K21.9 Gastro-esophageal reflux disease without esophagitis; I87.2 Venous insufficiency (chronic) (peripheral); M06.9 Rheumatoid arthritis, unspecified; R07.89 Other chest pain; M35.00 Sjogren syndrome, unspecified
CPT/HCPCS: 36415; 36600; 71045-TC-FY; 76775-TC; 80048; 80053; 82550; 82607; 82728; 82746; 82803; 83540; 83550; 83605; 83735; 83880; 84100; 84484; 85025; 85027; 85610; 85651; 85730; 86140; 87040; 93005; 93010; 93306-TC; 93970-TC; 94660; 97116-GP; 97162-GP; 99283-25; G0008; J0131; J0878; Q2036

== ENCOUNTER 2019-10-25 13:38 | Observation (INO) | payer OTHER, MEDICARE ==
[2019-10-25 13:49] VITALS: BMI 40.7
--- NOTE | 2019-10-25 14:35 | PDOC ---
Attending Attestation - Resident Resident Name: DeniseCheryl - ED Attending Attestation I have performed the following: I have examined & evaluated the patient, The case was reviewed & discussed with the resident, I agree w/resident's findings & plan, Exceptions are as noted - HPI HPI: 10/25/19 14:34 74y F hx of viviana stasis ulcer, copd, chf, afib on eliquis, dm, htn, srogens, presents with complaint of bleeding wounds from her RLE for 1 day. Her husbands nurse saw the pt and recommended that she come to the ED for evaluation. Pt notes the wounds are new relative to her baseline. denies any fever/chills, n/v , trauma. Pt denies any fever/chills, n/v, cp, palpitations. Pt notes increased bleeding/discharge and some warmth and increased ch from her RLE. Exam: GENERAL: The patient is awake, alert, and fully oriented, Nontoxic - in no acute distress. obese HEAD: Normocephalic, atraumatic. EYES: extraocular movements intact, sclera anicteric, conjunctiva clear. ENT: Normal voice, Moist mucous membranes. NECK: Normal range of motion, supple LUNGS: Breath sounds equal, clear to auscultation bilaterally. No wheezes, no rhonchi, no rales. HEART:irregular, no m/r/g ABDOMEN: Soft, nontender, No guarding, no rebound. No CVA tenderness EXTREMITIES: Normal range of motion, chronic venous changes b/l, on RLE, + ulceration/skin flaking with bleeding, assymetric warmth and RLE and areas of redness are warm to touch. NEUROLOGICAL: No facial assymetry, Normal speech, moving all 4 ext spontaneusly and symmetrically PSYCH: Normal mood, normal affect. SKIN: Warm, Dry, normal turgor, suspect worsening ulcerations with possible suprainfection will obtain lbas will d/w dr. pascal re admission vs outpatient management w oral abx
--- NOTE | 2019-10-25 14:55 | PDOC ---
History of Present Illness - General Chief Complaint: Wound Stated Complaint: CELULITIS Time Seen by Provider: 10/25/19 13:50 - History of Present Illness Initial Comments: Jillian Torres is a 74yo woman with a PMH of HTN, HLD, diastolic CHF, COPD on home O2, chronic LE edema w/ venous stasis, h/o MRSA cellulitis, RA, Sjogren's, a-fib on Eliquis, recent admission from 09/30-10/14 with acute hypoxic hypercapnic respiratory distress as well as abdominal cellulitis and chronic BLE venous stasis dermatitis who presents with worsening RLE wounds. She reports that over the past few days, her wounds have become more painful and started bleeding. Ms Torres reports that she has not been seen by wound care since her recent hospital discharge; she has a research home economist that has been helping her with her dressing changes. The aide was concerned about the appearance of her wounds earlier this week, so the pt had her 's visiting nurse evaluate the wounds today. The nurse recommended that Ms Torres come to the hospital. Ms Torres denies any fevers, chills, general malaise, worsening leg swelling, thick or foul-smelling drainage, or red streaking up her leg. She endorses a much larger area of open wounds compared to 1-2 weeks ago, and she says that her wounds had not been bleeding previously. She states that she has been trying to follow wound care recommendations and has been otherwise compliant with her medications. Past History - Past Medical History Allergies/Adverse Reactions: Allergies Allergy/AdvReac Type Severity Reaction Status Date / Time Penicillins Allergy Severe Swelling Verified 07/26/19 18:50 clindamycin Allergy Mild Rash Verified 07/26/19 18:50 doxycycline Allergy Swelling Verified 07/26/19 18:50 levofloxacin [From Levaquin] Allergy Rash Verified 07/26/19 18:50 vancomycin AdvReac Mild Itching Verified 07/26/19 18:50 adhesive tape AdvReac "RIPS MY Verified 07/26/19 18:50 SKIN" Anemia: No Asthma: No Cancer: No Cardiac Disorders: Yes (AFIB) CVA: No COPD: Yes (HOME O2 3L) CHF: Yes Dementia: No Diabetes: No GI Disorders: Yes (GERD) Disorders: No HTN: Yes Hypercholesterolemia: Yes Liver Disease: No Seizures: No Thyroid Disease: Yes (LEFT THYROID LUMP) - Surgical History Abdominal Surgery: No Appendectomy: No Cardiac Surgery: No Cholecystectomy: No Lung Surgery: No Neurologic Surgery: No Orthopedic Surgery: Yes (BILATERAL KNEE REPLACEMENT) - Immunization History Immunization Up to Date: No - Psycho Social/Smoking Cessation Hx Smoking History: Never smoked Have you smoked in the past 12 months: No Number of Cigarettes Smoked Daily: 0 If you are a former smoker, when did you quit?: 1985 Cigars Per Day: 0 'Breaking Loose' booklet given: 08/30/17 Hx Alcohol Use: No Drug/Substance Use Hx: No Substance Use Type: None Hx Substance Use Treatment: No Review of Systems - Review of Systems Comments:: General: No fevers, no chills, no weight or appetite change, no malaise HEENT: No changes in vision, no changes in hearing, no congestion, no sore throat CV: No chest pain, no palpitations, no LE edema Pulm: No new SOB, no cough, no wheezing GI: No nausea or vomiting, no change in bowel habits, no melena : No frequency, no urgency, no dysuria Musc: No back pain, no joint swelling, no recent injury Skin: See HPI Endo: No excessive thirst, no heat/cold intolerance Heme: No unusual bruising or bleeding, no swollen glands Neuro: No syncope, no numbness/tingling, no focal weakness Vasc: No claudication Psych: No recent change in mood, no SI or HI *Physical Exam - Vital Signs Last Vital Signs Temp Pulse Resp BP Pulse Ox 98 F 91 H 19 119/87 100 10/25/19 13:47 10/25/19 13:47 10/25/19 13:47 10/25/19 13:47 10/25/19 13:47 - Physical Exam General: Comfortable, no acute distress HEENT: Atraumatic, PERRL, EOMI, MMM, voice normal Cards: Irregularly irregular Pulm: Breathing comfortably, clear to auscultation bilaterally Abd: Soft, nontender, nondistended Ext: Atraumatic. Minimal BLE pitting edema not involving feet. ROM intact and equal b/l at ankles and knees. Able to move rt toes Vasc: Right foot slightly cooler to touch than left, palpable Rt PT, DP not found Skin: BLE with skin changes c/w stasis dermatitis. Right calf with circumferential shallow ulcerations involving 40-50% of total skin area with lyon crusting over approximately half the wounds. Red blood staining and trace SS drainage on RLE dressing but no active bleeding. No purulence, no erythema of RLE compared to LLE. No red streaking up leg. Abdominal skin w/ slight erythematous rash under pannus, covered w/ powder. Neuro: A&Ox3, CN grossly intact, normal speech, motor/sensory grossly intact and symmetric Psych: Mood appropriate to situation ED Treatment Course - LABORATORY CBC & Chemistry Diagram: 10/25/19 15:00 10/25/19 15:00 Medical Decision Making - Medical Decision Making 10/25/19 14:36 Jillian Torres is a 74yo woman with a PMH of HTN, HLD, diastolic CHF, COPD on home O2, chronic LE edema w/ venous stasis, h/o MRSA cellulitis, RA, Sjogren's, a-fib on Eliquis, recent admission from 09/30-10/14 with acute hypoxic hypercapnic respiratory distress as well as abdominal cellulitis and chronic BLE venous stasis dermatitis who presents with worsening RLE wounds, now with enlarging area and bleeding. She denies fevers, increased redness, drainage, or other signs of overt infection. - Low suspicion for cellulitis, but appears to have marked worsening of her RLE wounds. Per chart review, had 2 small ulcerated areas while she was in the hospital. Ulcerations now cover ~40-50% of her RLE distal to the knee - CBC, CMP, cultures to evaluate for occult infection - Will call Dr Gonzalez once labs are resulted 10/25/19 17:20 - Labs reviewed. No leukocytosis, no concerning abnormalities - Spoke to Dr Gonzalez. Says that pt has flares of her chronic dermatitis, should have wound care but it is difficult for pt to get out of the house. Recommending steroids - Spoke to case management as pt had a referral for home care, per chart review , but patient states she does not have a nurse coming to her home. manager of enterprise will send a new referral - Discussed with patient. Patient states she is unable to get to wound care. Says that vising nurse came to her home once after she was discharged from the hospital last month but has never come back. Says her aide has been changing her dressings but she has had no wound care follow up since her d/c - Given apparent significant worsening of RLE ulcerations compared to her discharge 10 days ago, [facility] 10/25/19 17:56 - Sign out given to Dr Garcia. Will admit to med/surg on Dr Cody's service Discussed with Dr Juice Walker PGY2 Discharge - Discharge Information Problems reviewed: Yes Clinical Impression/Diagnosis: Venous stasis dermatitis Qualifiers: Laterality: bilateral Qualified Code(s): I87.2 - Venous insufficiency (chronic ) (peripheral) Lower extremity ulceration Qualifiers: Laterality: right Non-pressure ulcer stage: limited to breakdown of skin Qualified Code(s): L97.911 - Non-pressure chronic ulcer of unspecified part of right lower leg limited to breakdown of skin Condition: Stable - Admission Yes - Follow up/Referral Referrals: Mike Boykin MD [Primary Care Provider] - - Patient Discharge Instructions - Post Discharge Activity
[2019-10-25 15:38] LABS: BASO % 0.5 % (0-2.0); EOS % 5.3 % (0-4.5); HEMATOCRIT 43.1 % (32.4-45.2); HEMOGLOBIN 13.6 GM/dL (10.7-15.3); MCH 25.2 pg (25.7-33.7); MCHC 31.4 g/dl (32.0-36.0); NEUT % 63.2 % (42.8-82.8); PLATELET COUNT 266 K/MM3 (134-434); RBC 5.39 M/mm3 (3.60-5.2); RDW 15.6 % (11.6-15.6); WHITE BLOOD COUNT 7.7 K/mm3 (4.0-10.0)
[2019-10-25 16:05] LABS: ALBUMIN 3.2 g/dl (3.4-5.0); ALK PHOS 90 U/L (45-117); ANION GAP 2 MMOL/L (8-16); BILIRUBIN,TOTAL 0.4 mg/dL (0.2-1); BLOOD UREA NITROGEN 17.7 mg/dL (7-18); CALCIUM 8.9 mg/dL (8.5-10.1); CHLORIDE 92 mmol/L (98-107); CO2 > 45 mmol/L (21-32); CREATININE 0.6 mg/dL (0.55-1.3); GLUCOSE,RANDOM 79 mg/dL (74-106); POTASSIUM 3.9 mmol/L (3.5-5.1); SGOT/AST 15 U/L (15-37); SGPT/ALT 13 U/L (13-61); SODIUM 140 mmol/L (136-145)
[2019-10-25] MEDS ORDERED: DOCUSATE SODIUM 100 MG CAPSULE (FP) PO PRN (18:28)
[2019-10-25] MEDS ORDERED: ENOXAPARIN NA (PORCINE) 40 MG/0.4 ML DISP.SYRIN SQ SCH (18:30)
--- NOTE | 2019-10-25 18:33 | HP ---
CHIEF COMPLAINT: Right lower leg ulcers bleeding PCP: Mike Boykin HISTORY OF PRESENT ILLNESS: 74 F with PMH of chronic venous stasis ulcers, COPD (on home oxygen), CHF, Atrial Fibrillation (on Eliquis), Diabetes Mellitus, HTN , Srojen's disease who presents with bleeding wounds on the right lower extremity. She was recently discharged from [facility] on 10/14/19 for treatment of cellulitis and respiratory distress. While at home she had visiting nurses come by to perform wound care once. On the other days she had her home health aides assist her with dressing changes. Her wounds were stable until last night, with no pus or weeping. Last night her right leg began to hurt more and she noticed it was starting to bleed, and has continued to bleed through to today. She denied any recent trauma to the region. She denies any pus on the dressing or leaking out while it has been uncovered. She is chronically short of breath, but has not felt it was any worse in the last few days. She notes a productive cough with yellow sputum for the past few days, and noted feeling weak and light headed yesterday. She denies any chest pain, any palpitations, fever, congestion, abdominal pain, nausea, vomiting, diarrhea. Recent Travel: Denies PAST MEDICAL HISTORY: chronic venous stasis ulcers, COPD (on home oxygen), CHF, Atrial Fibrillation (on Eliquis), Diabetes Mellitus, HTN, Srogen's disease, spinal stenosis, arthritis, MRSA+ cellulitis PAST SURGICAL HISTORY: total knee replacement bilaterally, lipoma removal right neck, possible left thyroid surgery, partial left corneal transplant, complete left corneal transplant Social History: Smoking: Quit in 1984 Alcohol: Denies Drugs: Denies Lives at home with disabled . Has home health aides. Sister in law lives upstairs and can help them, but rarely visits Allergies Penicillins Allergy (Severe, Verified 07/26/19 18:50) Swelling clindamycin Allergy (Mild, Verified 07/26/19 18:50) Rash doxycycline Allergy (Verified 07/26/19 18:50) Swelling levofloxacin [From Levaquin] Allergy (Verified 07/26/19 18:50) Rash vancomycin Adverse Reaction (Mild, Verified 07/26/19 18:50) Itching adhesive tape Adverse Reaction (Verified 07/26/19 18:50) "RIPS MY SKIN" HOME MEDICATIONS: REVIEW OF SYSTEMS CONSTITUTIONAL: generalized weakness Absent: fever, chills, diaphoresis, malaise, loss of appetite, weight change HEENT: Absent: rhinorrhea, nasal congestion, throat pain, throat swelling, difficulty swallowing, mouth swelling, ear pain, eye pain, visual changes CARDIOVASCULAR: lightheadedness, Absent: chest pain, syncope, palpitations, irregular heart rate, peripheral edema RESPIRATORY: cough, shortness of breath, Absent: dyspnea with exertion, orthopnea, wheezing, stridor, hemoptysis GASTROINTESTINAL: Absent: abdominal pain, abdominal distension, nausea, vomiting, diarrhea, constipation, melena, hematochezia GENITOURINARY: Absent: dysuria, frequency, urgency, hesitancy, hematuria, flank pain, genital pain MUSCULOSKELETAL: arthralgia Absent: myalgia,joint swelling, back pain, neck pain SKIN: Absent: rash, itching, pallor HEMATOLOGIC/IMMUNOLOGIC: Absent: easy bleeding, easy bruising, lymphadenopathy, frequent infections ENDOCRINE: Absent: unexplained weight gain, unexplained weight loss, heat intolerance, cold intolerance NEUROLOGIC: Absent: headache, focal weakness or paresthesias, dizziness, unsteady gait, seizure, mental status changes, bladder or bowel incontinence PHYSICAL EXAMINATION Vital Signs - 24 hr 10/25/19 13:47 Temperature 98 F Pulse Rate 91 H Respiratory 19 Rate Blood Pressure 119/87 O2 Sat by Pulse 100 Oximetry (%) GENERAL: Awake, alert, and fully oriented, in no acute distress. HEAD: Normal with no signs of trauma. EYES: Pupils equal, round and reactive to light, extraocular movements intact, sclera anicteric, conjunctiva clear. EARS, NOSE, THROAT: Ears normal, nares patent, oropharynx clear without exudates. Moist mucous membranes. NECK: Normal range of motion, supple without lymphadenopathy, JVD, or masses. LUNGS: Breath sounds equal, clear to auscultation bilaterally. No wheezes, and no crackles. No accessory muscle use. HEART: Regular rate and rhythm, normal S1 and S2 without murmur, rub or gallop. ABDOMEN: Soft, nontender, not distended, normoactive bowel sounds, no guarding, no rebound, no masses. MUSCULOSKELETAL: Normal range of motion at all joints. No bony deformities or tenderness. No CVA tenderness. UPPER EXTREMITIES: 2+ pulses, warm, well-perfused. No cyanosis. No clubbing. No peripheral edema. LOWER EXTREMITIES: 2+ pulses, warm, well-perfused. No calf tenderness. No peripheral edema. Right lower extremity has cellulitis, with open ulcers and bleeding. No pus. Left lower extremity has signs of chronic venous stasis, no open wounds. NEUROLOGICAL: Cranial nerves II-XII intact. Normal speech. SKIN: Warm, dry, normal turgor, no rashes or lesions noted, normal capillary refill. Laboratory Results - last 24 hr 10/25/19 10/25/19 15:00 15:00 WBC 7.7 RBC 5.39 H Hgb 13.6 Hct 43.1 MCV 80.0 MCH 25.2 L MCHC 31.4 L RDW 15.6 Plt Count 266 MPV 8.0 Absolute Neuts (auto) 4.8 Neutrophils % 63.2 Lymphocytes % 21.0 D Monocytes % 10.0 Eosinophils % 5.3 H Basophils % 0.5 D Nucleated RBC % 0 Sodium 140 Potassium 3.9 Chloride 92 L Carbon Dioxide > 45 H Anion Gap 2 L BUN 17.7 Creatinine 0.6 Est GFR (CKD-EPI)AfAm 105.54 Est GFR (CKD-EPI)NonAf 91.06 Random Glucose 79 Calcium 8.9 Total Bilirubin 0.4 AST 15 ALT 13 Alkaline Phosphatase 90 Total Protein 7.0 Albumin 3.2 L ASSESSMENT/PLAN: 74F PMH chronic venous stasis ulcers, COPD (on home oxygen), CHF, Atrial Fibrillation (on Eliquis), Diabetes Mellitus, HTN, Srojen's disease, spinal stenosis, arthritis, MRSA+ cellulitis presents with 1 day history of open and bleeding ulcerations on her right lower extremity. 1)Exacerbation Venous stasis ulcers -Prednisone 40 mg PO to start taper -Vascular surgery consulted, Dr. Gonzalez. -Afebrile, WBC wnl, will wait for vascular recommendations for abx -Blood culture pending -Wound care -Oxycodone 5mg PO Q12PRN 2)Atrial Fibrillation -Apixaban 5 mg PO BID -Cardizem 360 PO Daily 3) CHF -Metoprolol 50 mg PO Pippa -Cardizem 360 PO daily 4)HTN -Metoprolol 50 mg PO Daily 5)CRF secondary to COPD on Home Oxygen- -Metabolic alkalosis compensatory for chronic CO2 retention -3L NC -Duonebs PRN -Chest X-Ray 6)DM -Sliding scale Novolong DVT prophylaxis: On Eliquis 5mg PO BID F: Oral hydration E: Monitor CMP N: Diabetic diet Dispo: Observation Visit type - Emergency Visit Emergency Visit: Yes Care time: The patient presented to the Emergency Department on the above date and was hospitalized for further evaluation of their emergent condition. - New Patient This patient is new to me today: Yes Date on this admission: 10/25/19 - Critical Care Critical Care patient: No ATTENDING PHYSICIAN STATEMENT I saw and evaluated the patient. I reviewed the resident's note and discussed the case with the resident. I agree with the resident's findings and plan as documented. SUBJECTIVE: OBJECTIVE: ASSESSMENT AND PLAN:
--- NOTE | 2019-10-25 18:40 | PN ---
Teaching Attending Note Name of Resident: Kennedi Tracey ATTENDING PHYSICIAN STATEMENT I saw and evaluated the patient. I reviewed the resident's note and discussed the case with the resident. I agree with the resident's findings and plan as documented. SUBJECTIVE: Complains of painful, bloody discharge from RLE ulcers. No fever/ chills. OBJECTIVE: Afebrile, Hemodynamically Stable. Last Vital Signs Temp Pulse Resp BP Pulse Ox 98 F 91 H 19 119/87 100 10/25/19 13:47 10/25/19 13:47 10/25/19 13:47 10/25/19 13:47 10/25/19 13:47 HEENT - Atraumatic, Normocephalic. Heart - S1, S2, RRR Lungs - decreased air entry globally. No crackles/wheeze. Abdomen - High BMI. Soft, non-tender. Bowel Sounds normal. Extremities - Chronic venous stasis skin changes LEs - R> L with small bleeding ulcerations on Right, with no pustular exudate or streaking erythema, Neuro - AAO x 3. Tone/Power normal. Laboratory Results - last 24 hr 10/25/19 10/25/19 15:00 15:00 WBC 7.7 RBC 5.39 H Hgb 13.6 Hct 43.1 MCV 80.0 MCH 25.2 L MCHC 31.4 L RDW 15.6 Plt Count 266 MPV 8.0 Absolute Neuts (auto) 4.8 Neutrophils % 63.2 Lymphocytes % 21.0 D Monocytes % 10.0 Eosinophils % 5.3 H Basophils % 0.5 D Nucleated RBC % 0 Sodium 140 Potassium 3.9 Chloride 92 L Carbon Dioxide > 45 H Anion Gap 2 L BUN 17.7 Creatinine 0.6 Est GFR (CKD-EPI)AfAm 105.54 Est GFR (CKD-EPI)NonAf 91.06 Random Glucose 79 Calcium 8.9 Total Bilirubin 0.4 AST 15 ALT 13 Alkaline Phosphatase 90 Total Protein 7.0 Albumin 3.2 L Current Medications Generic Name Dose Route Start Last Admin Trade Name Freq PRN Reason Stop Dose Admin Docusate Sodium 100 mg 10/25/19 18:28 Colace - PO BID PRN CONSTIPATION Enoxaparin Sodium 40 mg 10/25/19 18:30 Lovenox - SQ DAILY BELL Insulin Aspart 0 vial 10/25/19 22:00 Novolog Vial Sliding Scale - SQ ACHS BELL Protocol Oxycodone HCl 5 mg 10/25/19 18:28 Roxicodone - PO Q12H PRN PAIN LEVEL 6-10 Home Medications Medication Instructions Recorded Acetaminophen [Tylenol Extra 500 mg PO Q6H PRN 10/25/19 Strength] Apixaban [Eliquis -] 5 mg PO BID 10/25/19 Ascorbate Calcium [Vitamin C] 1,000 mg PO DAILY 10/25/19 Bupropion HCl [Bupropion Xl] 150 mg PO DAILY 10/25/19 Cholecalciferol (Vitamin D3) 1,000 unit PO DAILY 10/25/19 [Vitamin D3] Cyanocobalamin [Vitamin B12 -] 1,000 mcg PO DAILY 10/25/19 Diltiazem Cd [Cardizem Cd -] 360 mg PO DAILY 10/25/19 Furosemide [Lasix -] 60 mg PO BID 10/25/19 Gabapentin [Neurontin -] 400 mg PO Q8H 10/25/19 Guaifenesin [Mucinex] 600 mg PO DAILY 10/25/19 Hydroxychloroquine So4 [Plaquenil 200 mg PO DAILY 10/25/19 -] Levalbuterol HCl [Xopenex] 0.31 mg IH Q8H PRN 10/25/19 Metoprolol Tartrate 50 mg PO BID 10/25/19 Mineral Oil/Pet Hy-Phl [Aquaphor] 1 applic TP DAILY 10/25/19 Nystatin Powder [Nystop Topical 60 gm TP TID PRN 10/25/19 Powder -] Oxycodone HCl/Acetaminophen 1 tablet PO QID PRN 10/25/19 [Percocet 5-325 mg Tablet] Polyethylene Glycol 3350 17 gm PO DAILY 10/25/19 Ranitidine HCl 150 mg PO HS 10/25/19 Simvastatin 10 mg PO HS 10/25/19 ASSESSMENT AND PLAN: 74 year old female with history of CRF sec to COPD on Home O2, Atrial fibrillation (on Eliquis), DM 2, HTN, Chronic Venous Stasis Dermatitis with Ulcers, Sjogren's presents with 1 day Hx of painful, open and bleeding ulcerations to her RLE. No recent trauma. No fever/chills. 1. Severe exacerbation of Venous Stasis Dermatitis with bleeding ulcerations Usually follows with Dr. Gonzalez, who recommended tapering steroid course as per ED Will admit for Vascular Surgery evaluation, wound care management, ad for initiation of oral steroid therapy with Prednisone 40mg. Afebrile, Hemodynamically Stable, normal WBC - no clear evidence of superimposed infection. Multiple Abx allergies. Will await Vascular Sx eval prior to initiating any empiric Abx therapy. Blood Cx pending. Wound Care. Monitor for excessive bleeding given that she is on Eliquis. Oxycodone for pain. 2. Atrial Fibrillation - Continue Metoprolol, Diltiazem, and Eliquis 3. HTN - Continue Metoprolol and Diltiazem. 4. CRF sec to COPD on Home O2 - Continue. DuoNebs PRN. Metaboloic Alkalosis ( Bicarb > 45) compensatory for chronic CO2 retention. Patient reports recent productive cough, without fever/chills/hemoptysis/CP - no evidence of exacerbation of COPD. Stable respiratory status without dyspnea or wheeze. Will get CXR. 5. DM 2 - Maintain on sliding scale Novolog. DVT Px - on Eliquis.
[2019-10-25] MEDS ORDERED: ENOXAPARIN NA (PORCINE) 40 MG/0.4 ML DISP.SYRIN SQ ONE (19:01)
[2019-10-25] MEDS ORDERED: guaiFENesin 600 MG TABLET.ER (FP) PO PRN (19:30)
[2019-10-25] MEDS ORDERED: LEVALBUTEROL HCL 0.31 MG/3 ML VIAL.NEB IH PRN (19:31)
[2019-10-25] MEDS ORDERED: NYSTATIN POWDER 100,000 UNITS/GM - 15 GM TOPICAL POWDER TP PRN (19:31)
[2019-10-25] MEDS: APIXABAN 5 MG TABLET PO SCH (22:27)
[2019-10-25] MEDS: METOPROLOL TARTRATE 50 MG TABLET (FP) PO SCH (22:27)
[2019-10-25] MEDS: ATORVASTATIN CA 10 MG TABLET (FP) PO SCH (22:27)
[2019-10-25] MEDS: GABAPENTIN 400 MG CAPSULE (FP) PO SCH (22:28)
[2019-10-25] MEDS: FAMOTIDINE 20 MG TABLET PO SCH (22:28)
[2019-10-25] MEDS: INSULIN SLIDING SCALE (NOVOLOG) 1 VIAL SQ SCH (22:40)
[2019-10-25] MEDS ORDERED: oxyCODONE HCL 5 MG TABLET ONE (22:43)
[2019-10-25] MEDS: oxyCODONE HCL 5 MG TABLET PO PRN (22:44)
[2019-10-26] MEDS ORDERED: FUROSEMIDE 40 MG TABLET (FP) ONE ×2 (04:36→14:43)
[2019-10-26] MEDS ORDERED: GABAPENTIN 100 MG CAPSULE (FP) ONE ×2 (04:36→14:43)
[2019-10-26 06:17] LABS: BASO % 0.3 % (0-2.0); EOS % 6.4 % (0-4.5); HEMATOCRIT 36.9 % (32.4-45.2); HEMOGLOBIN 11.8 GM/dL (10.7-15.3); LYMPH % 29.9 % (8-40); MCH 25.4 pg (25.7-33.7); MCHC 31.9 g/dl (32.0-36.0); MEAN CELL VOLUME 79.6 fl (80-96); MEAN PLT VOLUME 8.3 fl (7.5-11.1); MONO % 13.3 % (3.8-10.2); NEUT % 50.1 % (42.8-82.8); PLATELET COUNT 198 K/MM3 (134-434); RBC 4.64 M/mm3 (3.60-5.2); RDW 15.8 % (11.6-15.6); WHITE BLOOD COUNT 5.3 K/mm3 (4.0-10.0)
[2019-10-26] MEDS: GABAPENTIN 400 MG CAPSULE (FP) PO SCH ×3 (06:20→22:19)
[2019-10-26] MEDS: FUROSEMIDE 40 MG TABLET (FP) PO SCH ×2 (06:20→14:48)
[2019-10-26 06:47] LABS: ALBUMIN 2.6 g/dl (3.4-5.0); ALK PHOS 72 U/L (45-117); ANION GAP 5 MMOL/L (8-16); BILIRUBIN,TOTAL 0.3 mg/dL (0.2-1); BLOOD UREA NITROGEN 16.7 mg/dL (7-18); CALCIUM 8.4 mg/dL (8.5-10.1); CHLORIDE 92 mmol/L (98-107); CO2 > 45 mmol/L (21-32); CREATININE 0.5 mg/dL (0.55-1.3); GLUCOSE,RANDOM 83 mg/dL (74-106); SGOT/AST 13 U/L (15-37); SGPT/ALT 10 U/L (13-61); SODIUM 142 mmol/L (136-145); TOT PROT 5.8 g/dl (6.4-8.2)
[2019-10-26 07:02] LABS: POTASSIUM 2.9 mmol/L (3.5-5.1)
[2019-10-26] MEDS ORDERED: POTASSIUM CHLORIDE TABS 20 MEQ TABLET.ER (FP) PO ONE ×2 (07:04→11:50)
[2019-10-26] MEDS: INSULIN SLIDING SCALE (NOVOLOG) 1 VIAL SQ SCH ×4 (07:20→22:19)
[2019-10-26] MEDS ORDERED: KCL 10 MEQ IVPB 30 MEQ/300 ML INFUS.BAG IVPB ONE (08:24)
[2019-10-26] MEDS: ACETAMINOPHEN 500 MG TABLET (FP) PO PRN (09:30)
--- NOTE | 2019-10-26 09:45 | CONSULT ---
<Marilu Davis - Last Filed: 10/26/19 09:57> - Consultation REQUESTING PROVIDER: CONSULT REQUEST: We have been asked to surgically evaluate this patient for venous stasis ulcers. PCP:Uche Cody MD HISTORY OF PRESENT ILLNESS: 74 y/o F w/ PMHx chronic venous stasis ulcers, COPD (on home oxygen), CHF, Atrial Fibrillation (on Eliquis), Diabetes Mellitus, HTN, Srojen's disease presents to the ER with bleeding wounds from right lower extremity. Pt was recently discharged from [facility] (09/30-10/14/19) for treatment of cellulitis and respiratory distress. Reports she has had VNS come by one time for wound care, the remainder of the time pts home health aide has assisted with dressing changes. Pt unsure of what dressings were used. Reports increased pain/swelling adn new wounds to her RLE over the weekend. Last night she noted bleeding from the wounds and came to the ER for further evaluation. Denies recent trauma, purulent drainage from the wounds, fevers/chills. Reports remote h/o RLE dvt many years ago, trted with AC. Ambulates at home with walker. Denies claudication/rest pain. Recent Travel: Denies PAST MEDICAL HISTORY: chronic venous stasis ulcers, COPD (on home oxygen), CHF, Atrial Fibrillation (on Eliquis), Diabetes Mellitus, HTN, Srogen's disease, spinal stenosis, arthritis, MRSA+ cellulitis PAST SURGICAL HISTORY: total knee replacement bilaterally, lipoma removal right neck, possible left thyroid surgery, partial left corneal transplant, complete left corneal transplant Home Medications Medication Instructions Recorded Acetaminophen [Tylenol Extra 500 mg PO Q6H PRN 10/25/19 Strength] Apixaban [Eliquis -] 5 mg PO BID 10/25/19 Ascorbate Calcium [Vitamin C] 1,000 mg PO DAILY 10/25/19 Bupropion HCl [Bupropion Xl] 150 mg PO DAILY 10/25/19 Cholecalciferol (Vitamin D3) 1,000 unit PO DAILY 10/25/19 [Vitamin D3] Cyanocobalamin [Vitamin B12 -] 1,000 mcg PO DAILY 10/25/19 Diltiazem Cd [Cardizem Cd -] 360 mg PO DAILY 10/25/19 Furosemide [Lasix -] 60 mg PO BID 10/25/19 Gabapentin [Neurontin -] 400 mg PO Q8H 10/25/19 Guaifenesin [Mucinex] 600 mg PO DAILY 10/25/19 Hydroxychloroquine So4 [Plaquenil 200 mg PO DAILY 10/25/19 -] Levalbuterol HCl [Xopenex] 0.31 mg IH Q8H PRN 10/25/19 Metoprolol Tartrate 50 mg PO BID 10/25/19 Mineral Oil/Pet Hy-Phl [Aquaphor] 1 applic TP DAILY 10/25/19 Nystatin Powder [Nystop Topical 60 gm TP TID PRN 10/25/19 Powder -] Oxycodone HCl/Acetaminophen 1 tablet PO QID PRN 10/25/19 [Percocet 5-325 mg Tablet] Polyethylene Glycol 3350 17 gm PO DAILY 10/25/19 Ranitidine HCl 150 mg PO HS 10/25/19 Simvastatin 10 mg PO HS 10/25/19 Allergies Allergy/AdvReac Type Severity Reaction Status Date / Time Penicillins Allergy Severe Swelling Verified 07/26/19 18:50 clindamycin Allergy Mild Rash Verified 07/26/19 18:50 doxycycline Allergy Swelling Verified 07/26/19 18:50 levofloxacin [From Levaquin] Allergy Rash Verified 07/26/19 18:50 vancomycin AdvReac Mild Itching Verified 07/26/19 18:50 adhesive tape AdvReac "RIPS MY Verified 07/26/19 18:50 SKIN" REVIEW OF SYSTEMS: CONSTITUTIONAL: Absent: fever, chills CARDIOVASCULAR: Absent: chest pain GASTROINTESTINAL: Absent: abdominal pain PHYSICAL EXAM: GENERAL: Awake, alert, and fully oriented, in no acute distress. HEAD: Normal with no signs of trauma. LOWER EXTREMITIES: LLE with hyperpigmentation circumferentially from ankle to upper calf, no open wounds. + hyperkeratosis. RLE with multiple small superficial wounds over anterior funes, + dried blood, no drainage. Lateral aspect of calf with larger superficial wounds with dried blood, no active drainage. +mild circumferential erythema from ankle to just below knee. + TTP at site of wounds. B/L LE's with 1+ pitting edema. Toes with onychomycosis Vasc: L dp 2+, pt not appreciated. R AT 1+, dp/pt not appreciated Vital Signs Temperature 98.1 F 10/26/19 09:14 Pulse Rate 97 H 10/26/19 09:14 Respiratory Rate 20 10/26/19 09:14 Blood Pressure 117/66 10/26/19 09:14 O2 Sat by Pulse Oximetry (%) 97 10/26/19 09:14 Lab Results WBC 5.3 K/mm3 (4.0-10.0) 10/26/19 05:30 RBC 4.64 M/mm3 (3.60-5.2) 10/26/19 05:30 Hgb 11.8 GM/dL (10.7-15.3) 10/26/19 05:30 Hct 36.9 % (32.4-45.2) 10/26/19 05:30 MCV 79.6 fl (80-96) L 10/26/19 05:30 MCHC 31.9 g/dl (32.0-36.0) L 10/26/19 05:30 RDW 15.8 % (11.6-15.6) H 10/26/19 05:30 Plt Count 198 K/MM3 (134-434) D 10/26/19 05:30 Sodium 142 mmol/L (136-145) 10/26/19 05:30 Potassium 2.9 mmol/L (3.5-5.1) L* 10/26/19 05:30 Chloride 92 mmol/L (98-107) L 10/26/19 05:30 Carbon Dioxide > 45 mmol/L (21-32) H 10/26/19 05:30 Anion Gap 5 MMOL/L (8-16) L 10/26/19 05:30 BUN 16.7 mg/dL (7-18) 10/26/19 05:30 Creatinine 0.5 mg/dL (0.55-1.3) L 10/26/19 05:30 Random Glucose 83 mg/dL (74-106) 10/26/19 05:30 Calcium 8.4 mg/dL (8.5-10.1) L 10/26/19 05:30 A/P: 74 y/o F w/ PMHx chronic venous stasis ulcers, COPD (on home oxygen), CHF, Atrial Fibrillation (on Eliquis), Diabetes Mellitus, HTN, Srojen's disease presents to the ER with bleeding wounds from right lower extremity. -Silvadene to RLE wounds, clean with NS and gauze prior to application. Wrap with 4x4s/kerlix and change daily. -Moisturizer to LLE -Elevate b/l le's above level of heart, evette wraps -Pt typically requires systemic steroids for her dermatitis -ABx per medical team d/w attending Dr Gonzalez <Tejas Gonzalez - Last Filed: 10/27/19 13:13> - Consultation REQUESTING PROVIDER: CONSULT REQUEST: We have been asked to surgically evaluate this patient for ( specify). PCP:Scott Rabago MD HISTORY OF PRESENT ILLNESS: PMHx: PSHx: Home Medications Medication Instructions Recorded Acetaminophen [Tylenol Extra 500 mg PO Q6H PRN 10/25/19 Strength] Apixaban [Eliquis -] 5 mg PO BID 10/25/19 Ascorbate Calcium [Vitamin C] 1,000 mg PO DAILY 10/25/19 Bupropion HCl [Bupropion Xl] 150 mg PO DAILY 10/25/19 Cholecalciferol (Vitamin D3) 1,000 unit PO DAILY 10/25/19 [Vitamin D3] Cyanocobalamin [Vitamin B12 -] 1,000 mcg PO DAILY 10/25/19 Diltiazem Cd [Cardizem Cd -] 360 mg PO DAILY 10/25/19 Furosemide [Lasix -] 60 mg PO BID 10/25/19 Gabapentin [Neurontin -] 400 mg PO Q8H 10/25/19 Guaifenesin [Mucinex] 600 mg PO DAILY 10/25/19 Hydroxychloroquine So4 [Plaquenil 200 mg PO DAILY 10/25/19 -] Levalbuterol HCl [Xopenex] 0.31 mg IH Q8H PRN 10/25/19 Metoprolol Tartrate 50 mg PO BID 10/25/19 Mineral Oil/Pet Hy-Phl [Aquaphor -] 1 applic TP DAILY 10/25/19 Nystatin Powder [Nystop Powder -] 60 gm TP TID PRN 10/25/19 Oxycodone HCl/Acetaminophen 1 tablet PO QID PRN 10/25/19 [Percocet 5-325 mg Tablet] Polyethylene Glycol 3350 17 gm PO DAILY 10/25/19 Ranitidine HCl 150 mg PO HS 10/25/19 Simvastatin 10 mg PO HS 10/25/19 Silver Sulfadiazine 1% Top Cr 1 applic TP DAILY #2 jar 10/27/19 [Silvadene -] predniSONE [Deltasone -] See Taper PO ASDIR #81 tab 10/27/19 Allergies Allergy/AdvReac Type Severity Reaction Status Date / Time Penicillins Allergy Severe Swelling Verified 07/26/19 18:50 clindamycin Allergy Mild Rash Verified 07/26/19 18:50 doxycycline Allergy Swelling Verified 07/26/19 18:50 levofloxacin [From Levaquin] Allergy Rash Verified 07/26/19 18:50 vancomycin AdvReac Mild Itching Verified 07/26/19 18:50 adhesive tape AdvReac "RIPS MY Verified 07/26/19 18:50 SKIN" REVIEW OF SYSTEMS: CONSTITUTIONAL: Absent: fever, chills, diaphoresis, generalized weakness, malaise, loss of appetite, weight change CARDIOVASCULAR: Absent: chest pain, syncope, palpitations, irregular heart rate, lightheadedness , peripheral edema RESPIRATORY: Absent: cough, shortness of breath, dyspnea with exertion, wheezing, stridor, hemoptysis GASTROINTESTINAL: Absent: abdominal pain, abdominal distension, nausea, vomiting, diarrhea, constipation, melena, hematochezia GENITOURINARY: Absent: dysuria, frequency, urgency, hesitancy, hematuria, flank pain, genital pain MUSCULOSKELETAL: Absent: myalgia, arthralgia, joint swelling, back pain, neck pain SKIN: Absent: rash, itching, pallor HEMATOLOGIC/IMMUNOLOGIC: Absent: easy bleeding, easy bruising, lymphadenopathy NEUROLOGIC: Absent: headache, focal weakness, paresthesias, dizziness, unsteady gait, seizure, mental status changes, bladder or bowel incontinence PSYCHIATRIC: Absent: anxiety, depression, suicidal or homicidal ideation, hallucinations. PHYSICAL EXAM: GENERAL: Awake, alert, and fully oriented, in no acute distress. HEAD: Normal with no signs of trauma. EYES: PERRL, sclera anicteric, conjunctiva clear. NECK: Normal ROM, supple without lymphadenopathy, JVD, or masses. LUNGS: Clear to auscultation bilat anteriorly. No wheezes, and no crackles. No accessory muscle use. HEART: Regular rate and rhythm. No murmurs ABDOMEN: Soft, nontender, not distended, normoactive bowel sounds, no guarding, no rebound, no masses. No organomegaly. MUSCULOSKELETAL: Normal ROM at all joints. No bony deformities or tenderness. No CVA tenderness. UPPER EXTREMITIES: 2+ pulses, warm, well-perfused. No cyanosis. Cap refill <2 seconds. No peripheral edema. LOWER EXTREMITIES: 2+ pulses, warm, well-perfused. No calf tenderness. No peripheral edema. NEUROLOGICAL: Normal speech, gait not observed. PSYCH: Cooperative. Good eye contact. Appropriate mood and affect. SKIN: Warm, dry, normal turgor, no rashes or lesions noted. Vital Signs Temperature 97.6 F 10/26/19 17:43 Pulse Rate 86 10/27/19 10:02 Respiratory Rate 18 10/27/19 10:02 Blood Pressure 106/43 L 10/27/19 10:02 O2 Sat by Pulse Oximetry (%) 97 10/27/19 06:01 Lab Results WBC 5.3 K/mm3 (4.0-10.0) 10/26/19 05:30 RBC 4.64 M/mm3 (3.60-5.2) 10/26/19 05:30 Hgb 11.8 GM/dL (10.7-15.3) 10/26/19 05:30 Hct 36.9 % (32.4-45.2) 10/26/19 05:30 MCV 79.6 fl (80-96) L 10/26/19 05:30 MCHC 31.9 g/dl (32.0-36.0) L 10/26/19 05:30 RDW 15.8 % (11.6-15.6) H 10/26/19 05:30 Plt Count 198 K/MM3 (134-434) D 10/26/19 05:30 Sodium 141 mmol/L (136-145) 10/27/19 05:50 Potassium 3.2 mmol/L (3.5-5.1) L 10/27/19 05:50 Chloride 93 mmol/L (98-107) L 10/27/19 05:50 Carbon Dioxide > 45 mmol/L (21-32) H 10/27/19 05:50 Anion Gap 3 MMOL/L (8-16) L 10/27/19 05:50 BUN 20.2 mg/dL (7-18) H 10/27/19 05:50 Creatinine 0.5 mg/dL (0.55-1.3) L 10/27/19 05:50 Random Glucose 86 mg/dL (74-106) 10/27/19 05:50 Calcium 8.5 mg/dL (8.5-10.1) 10/27/19 05:50 Mrs Torres has chronic dermatitis which has been treated with systemic steroids. She was recently discharged after a flare-up with concomitant cellulitis of the right leg. She received 10 days of IV antibiotics. She now presents with draining superficial skin breakdown on right calf. No fever or chills. The dermatitis in the right leg is unchanged. She will start using topical steroid at home. A dermatology evaluation was recommended but never done.
[2019-10-26] MEDS: KCL 10 MEQ IVPB 10 MEQ/100 ML INFUS.BAG IVPB SCH ×3 (10:12→11:36)
[2019-10-26] MEDS: APIXABAN 5 MG TABLET PO SCH ×2 (10:12→22:18)
[2019-10-26] MEDS: MINERAL OIL/PET HY-PHL TOPICAL OINTMENT 454 GM JAR TP SCH (10:12)
[2019-10-26] MEDS: CYANOCOBALAMIN 1,000 MCG TABLET (FP) PO SCH (10:13)
[2019-10-26] MEDS: POLYETHYLENE GLYCOL 3350 119 GM BTL PO SCH (10:13)
[2019-10-26] MEDS: ASCORBIC ACID 500 MG TABLET (FP) PO SCH (10:13)
[2019-10-26] MEDS: METOPROLOL TARTRATE 50 MG TABLET (FP) PO SCH ×2 (10:13→22:00)
[2019-10-26] MEDS: CHOLECALCIFEROL (VIT D3) 1,000 UNIT (25 MCG) TABLET PO SCH (10:13)
--- NOTE | 2019-10-26 10:38 | EKG ---
Test Reason : Blood Pressure : / mmHG Vent. Rate : 111 BPM Atrial Rate : 078 BPM P-R Int : 000 ms QRS Dur : 084 ms QT Int : 344 ms P-R-T Axes : 000 080 021 degrees QTc Int : 467 ms ATRIAL FIBRILLATION WITH RAPID VENTRICULAR RESPONSE ABNORMAL ECG WHEN COMPARED WITH ECG OF 05-OCT-2019 07:29, NO SIGNIFICANT CHANGE WAS FOUND Confirmed by JOE NOBLE MD ([id number]) on 10/26/2019 10:38:05 AM Referred By: Confirmed By:JOE NOBLE MD
[2019-10-26] MEDS: SILVER SULFADIAZINE 1% TOP CREAM 50 GM JAR TP SCH (11:15)
--- NOTE | 2019-10-26 14:05 | PN ---
Teaching Attending Note Name of Resident: Kennedi Tracey ATTENDING PHYSICIAN STATEMENT I saw and evaluated the patient. I reviewed the resident's note and discussed the case with the resident. I agree with the resident's findings and plan as documented. SUBJECTIVE: Still has bloody oozing from RLE ulcers. No fever/chills. OBJECTIVE: Afebrile, Hemodynamically Stable. Last Vital Signs Temp Pulse Resp BP Pulse Ox 98.1 F 97 H 20 117/66 97 10/26/19 09:14 10/26/19 09:14 10/26/19 09:14 10/26/19 09:14 10/26/19 09:14 HEENT - Atraumatic, Normocephalic. Heart - S1, S2, RRR Lungs - decreased air entry globally. No crackles/wheeze. Abdomen - High BMI. Soft, non-tender. Bowel Sounds normal. Extremities - Chronic venous stasis skin changes LEs - R> L with small bleeding ulcerations on Right, with no pustular exudate or streaking erythema, Neuro - AAO x 3. Tone/Power normal. Laboratory Results - last 24 hr 10/25/19 10/25/19 10/25/19 15:00 15:00 22:39 WBC 7.7 RBC 5.39 H Hgb 13.6 Hct 43.1 MCV 80.0 MCH 25.2 L MCHC 31.4 L RDW 15.6 Plt Count 266 MPV 8.0 Absolute Neuts (auto) 4.8 Neutrophils % 63.2 Lymphocytes % 21.0 D Monocytes % 10.0 Eosinophils % 5.3 H Basophils % 0.5 D Nucleated RBC % 0 Sodium 140 Potassium 3.9 Chloride 92 L Carbon Dioxide > 45 H Anion Gap 2 L BUN 17.7 Creatinine 0.6 Est GFR (CKD-EPI)AfAm 105.54 Est GFR (CKD-EPI)NonAf 91.06 POC Glucometer 90 Random Glucose 79 Calcium 8.9 Total Bilirubin 0.4 AST 15 ALT 13 Alkaline Phosphatase 90 Total Protein 7.0 Albumin 3.2 L 10/26/19 10/26/19 10/26/19 05:30 05:30 07:16 WBC 5.3 RBC 4.64 Hgb 11.8 Hct 36.9 MCV 79.6 L MCH 25.4 L MCHC 31.9 L RDW 15.8 H Plt Count 198 D MPV 8.3 Absolute Neuts (auto) 2.7 Neutrophils % 50.1 D Lymphocytes % 29.9 D Monocytes % 13.3 H Eosinophils % 6.4 H Basophils % 0.3 Nucleated RBC % 0 Sodium 142 Potassium 2.9 L* Chloride 92 L Carbon Dioxide > 45 H Anion Gap 5 L BUN 16.7 Creatinine 0.5 L Est GFR (CKD-EPI)AfAm 112.07 Est GFR (CKD-EPI)NonAf 96.69 POC Glucometer 89 Random Glucose 83 Calcium 8.4 L Total Bilirubin 0.3 AST 13 L ALT 10 L Alkaline Phosphatase 72 Total Protein 5.8 L Albumin 2.6 L 10/26/19 11:48 WBC RBC Hgb Hct MCV MCH MCHC RDW Plt Count MPV Absolute Neuts (auto) Neutrophils % Lymphocytes % Monocytes % Eosinophils % Basophils % Nucleated RBC % Sodium Potassium Chloride Carbon Dioxide Anion Gap BUN Creatinine Est GFR (CKD-EPI)AfAm Est GFR (CKD-EPI)NonAf POC Glucometer 83 Random Glucose Calcium Total Bilirubin AST ALT Alkaline Phosphatase Total Protein Albumin Current Medications Generic Name Dose Route Start Last Admin Trade Name Freq PRN Reason Stop Dose Admin Acetaminophen 500 mg 10/25/19 19:30 10/26/19 09:30 Tylenol - PO 500 mg Q6H PRN Administration PAIN LEVEL 1-5 Apixaban 5 mg 10/25/19 22:00 10/26/19 10:12 Eliquis - PO 5 mg BID BELL Administration Ascorbic Acid 1,000 mg 10/26/19 10:00 10/26/19 10:13 Vitamin C - PO 1,000 mg DAILY BELL Administration Atorvastatin Calcium 10 mg 10/25/19 22:00 10/25/19 22:27 Lipitor - PO 10 mg HS BELL Administration Bupropion HCl 150 mg 10/26/19 10:00 10/26/19 10:13 Wellbutrin Xl - PO 150 mg DAILY BELL Administration Cholecalciferol 1,000 unit 10/26/19 10:00 10/26/19 10:13 Vitamin D3 - PO 1,000 unit DAILY BELL Administration Cyanocobalamin 1,000 mcg 10/26/19 10:00 10/26/19 10:13 Vitamin B12 - PO 1,000 mcg DAILY BELL Administration Diltiazem HCl 360 mg 10/26/19 10:00 10/26/19 10:12 Cardizem Cd - PO 360 mg DAILY BELL Administration Docusate Sodium 100 mg 10/25/19 18:28 Colace - PO BID PRN CONSTIPATION Emollient Ointment 1 applic 10/26/19 10:00 10/26/19 10:12 Aquaphor - TP Not Given DAILY BELL Famotidine 20 mg 10/25/19 22:00 10/25/19 22:28 Pepcid - PO 20 mg HS BELL Administration Furosemide 60 mg 10/26/19 06:00 10/26/19 06:20 Lasix - PO 60 mg BIDLASIX BELL Administration Gabapentin 400 mg 10/25/19 22:00 10/26/19 06:20 Neurontin - PO 400 mg TID BELL Administration Guaifenesin 600 mg 10/25/19 19:30 Mucinex - PO DAILY PRN COUGH Insulin Aspart 1 vial 10/25/19 22:00 10/26/19 11:54 Novolog Vial Sliding Scale - SQ Not Given ACHS [facility] Protocol Levalbuterol HCl 0.31 mg 10/25/19 19:31 Xopenex IH Q8H PRN WHEEZING Metoprolol Tartrate 50 mg 10/25/19 22:00 10/26/19 10:13 Lopressor - PO 50 mg BID BELL Administration Nystatin 1 applic 10/25/19 19:31 Nystop Powder - TP TID PRN DRY SKIN Oxycodone HCl 5 mg 10/25/19 18:28 10/25/19 22:44 Roxicodone - PO 5 mg Q12H PRN Administration PAIN LEVEL 6-10 Polyethylene Glycol 17 gm 10/26/19 10:00 10/26/19 10:13 Miralax (For Daily Use) - PO 17 gm DAILY BELL Administration Silver Sulfadiazine 1 applic 10/26/19 10:30 10/26/19 11:15 Silvadene - TP Not Given DAILY [facility] Home Medications Medication Instructions Recorded Acetaminophen [Tylenol Extra 500 mg PO Q6H PRN 10/25/19 Strength] Apixaban [Eliquis -] 5 mg PO BID 10/25/19 Ascorbate Calcium [Vitamin C] 1,000 mg PO DAILY 10/25/19 Bupropion HCl [Bupropion Xl] 150 mg PO DAILY 10/25/19 Cholecalciferol (Vitamin D3) 1,000 unit PO DAILY 10/25/19 [Vitamin D3] Cyanocobalamin [Vitamin B12 -] 1,000 mcg PO DAILY 10/25/19 Diltiazem Cd [Cardizem Cd -] 360 mg PO DAILY 10/25/19 Furosemide [Lasix -] 60 mg PO BID 10/25/19 Gabapentin [Neurontin -] 400 mg PO Q8H 10/25/19 Guaifenesin [Mucinex] 600 mg PO DAILY 10/25/19 Hydroxychloroquine So4 [Plaquenil 200 mg PO DAILY 10/25/19 -] Levalbuterol HCl [Xopenex] 0.31 mg IH Q8H PRN 10/25/19 Metoprolol Tartrate 50 mg PO BID 10/25/19 Mineral Oil/Pet Hy-Phl [Aquaphor] 1 applic TP DAILY 10/25/19 Nystatin Powder [Nystop Topical 60 gm TP TID PRN 10/25/19 Powder -] Oxycodone HCl/Acetaminophen 1 tablet PO QID PRN 10/25/19 [Percocet 5-325 mg Tablet] Polyethylene Glycol 3350 17 gm PO DAILY 10/25/19 Ranitidine HCl 150 mg PO HS 10/25/19 Simvastatin 10 mg PO HS 10/25/19 ASSESSMENT AND PLAN: 74 year old female with history of CRF sec to COPD on Home O2, Atrial fibrillation (on Eliquis), DM 2, HTN, HLD, Chronic Venous Stasis Dermatitis with Ulcers, Sjogren's presents with 1 day Hx of painful, open and bleeding ulcerations to her RLE. No recent trauma. No fever/chills. 1. Severe exacerbation of Venous Stasis Dermatitis with bleeding ulcerations Usually follows with Dr. Gonzalez, who recommended tapering steroid course - will evaluate the patient in person tomorrow. Started on oral steroid therapy with Prednisone 40mg. Afebrile, Hemodynamically Stable, normal WBC - no clear evidence of superimposed infection. Multiple Abx allergies. Will await Vascular Sx eval prior to initiating any empiric Abx therapy. Blood Cx pending. Wound Care. Monitor for excessive bleeding given that she is on Eliquis. Oxycodone for pain. Continue Lasix BID for Chronic Venous stasis 2. Atrial Fibrillation - Continue Metoprolol, Diltiazem, and Eliquis 3. HTN - Continue Metoprolol and Diltiazem. 4. CRF sec to COPD on Home O2 - Continue. DuoNebs PRN. Metaboloic Alkalosis ( Bicarb > 45) compensatory for chronic CO2 retention. Patient reports recent productive cough, without fever/chills/hemoptysis/CP - no evidence of exacerbation of COPD. Stable respiratory status without dyspnea or wheeze. Will get CXR. 5. DM 2 - Maintain on sliding scale Novolog. 6. HLD - Continue Statin. 7. Hypokalemia - will replete and monitor. 8. Vitmain D/B12 deficiencies - on supplementation. 9. Sjogren's -on Plaquenil. DVT Px - on Eliquis.
--- NOTE | 2019-10-26 15:26 | PN ---
Physical Exam: SUBJECTIVE: Patient seen and examined in the morning. No complaints of chest pain, shortness of breath, abdominal pain. Patient complains of headache and asking for tylenol. OBJECTIVE: Vital Signs Period Temp Pulse Resp BP Sys/William Pulse Ox Last 24 Hr 98.1 F-98.9 F 84-102 16-20 116-126/66-70 97-97 GENERAL: Awake, alert, and fully oriented, in no acute distress. HEAD: Normal with no signs of trauma. EYES: Pupils equal, round and reactive to light, extraocular movements intact, sclera anicteric, conjunctiva clear. EARS, NOSE, THROAT: Ears normal, nares patent, oropharynx clear without exudates. Moist mucous membranes. NECK: Normal range of motion, supple without lymphadenopathy, JVD, or masses. LUNGS: Breath sounds equal, clear to auscultation bilaterally. No wheezes, and no crackles. No accessory muscle use. HEART: Regular rate and rhythm, normal S1 and S2 without murmur, rub or gallop. ABDOMEN: Soft, nontender, not distended, normoactive bowel sounds, no guarding, no rebound, no masses. MUSCULOSKELETAL: Normal range of motion at all joints. No bony deformities or tenderness. No CVA tenderness. UPPER EXTREMITIES: 2+ pulses, warm, well-perfused. No cyanosis. No clubbing. No peripheral edema. LOWER EXTREMITIES: 2+ pulses, warm, well-perfused. No calf tenderness. No peripheral edema. Right lower extremity has cellulitis, with open ulcers and bleeding. No pus. Left lower extremity has signs of chronic venous stasis, no open wounds. NEUROLOGICAL: Cranial nerves II-XII intact. Normal speech. SKIN: Warm, dry, normal turgor, no rashes or lesions noted, normal capillary refill. Laboratory Results - last 24 hr 10/25/19 10/25/19 10/25/19 15:00 15:00 22:39 WBC 7.7 RBC 5.39 H Hgb 13.6 Hct 43.1 MCV 80.0 MCH 25.2 L MCHC 31.4 L RDW 15.6 Plt Count 266 MPV 8.0 Absolute Neuts (auto) 4.8 Neutrophils % 63.2 Lymphocytes % 21.0 D Monocytes % 10.0 Eosinophils % 5.3 H Basophils % 0.5 D Nucleated RBC % 0 Sodium 140 Potassium 3.9 Chloride 92 L Carbon Dioxide > 45 H Anion Gap 2 L BUN 17.7 Creatinine 0.6 Est GFR (CKD-EPI)AfAm 105.54 Est GFR (CKD-EPI)NonAf 91.06 POC Glucometer 90 Random Glucose 79 Calcium 8.9 Total Bilirubin 0.4 AST 15 ALT 13 Alkaline Phosphatase 90 Total Protein 7.0 Albumin 3.2 L 10/26/19 10/26/19 10/26/19 05:30 05:30 07:16 WBC 5.3 RBC 4.64 Hgb 11.8 Hct 36.9 MCV 79.6 L MCH 25.4 L MCHC 31.9 L RDW 15.8 H Plt Count 198 D MPV 8.3 Absolute Neuts (auto) 2.7 Neutrophils % 50.1 D Lymphocytes % 29.9 D Monocytes % 13.3 H Eosinophils % 6.4 H Basophils % 0.3 Nucleated RBC % 0 Sodium 142 Potassium 2.9 L* Chloride 92 L Carbon Dioxide > 45 H Anion Gap 5 L BUN 16.7 Creatinine 0.5 L Est GFR (CKD-EPI)AfAm 112.07 Est GFR (CKD-EPI)NonAf 96.69 POC Glucometer 89 Random Glucose 83 Calcium 8.4 L Total Bilirubin 0.3 AST 13 L ALT 10 L Alkaline Phosphatase 72 Total Protein 5.8 L Albumin 2.6 L 10/26/19 11:48 WBC RBC Hgb Hct MCV MCH MCHC RDW Plt Count MPV Absolute Neuts (auto) Neutrophils % Lymphocytes % Monocytes % Eosinophils % Basophils % Nucleated RBC % Sodium Potassium Chloride Carbon Dioxide Anion Gap BUN Creatinine Est GFR (CKD-EPI)AfAm Est GFR (CKD-EPI)NonAf POC Glucometer 83 Random Glucose Calcium Total Bilirubin AST ALT Alkaline Phosphatase Total Protein Albumin Active Medications Generic Name Dose Route Start Last Admin Trade Name Freq PRN Reason Stop Dose Admin Acetaminophen 500 mg 10/25/19 19:30 10/26/19 09:30 Tylenol - PO 500 mg Q6H PRN Administration PAIN LEVEL 1-5 Apixaban 5 mg 10/25/19 22:00 10/26/19 10:12 Eliquis - PO 5 mg BID BELL Administration Ascorbic Acid 1,000 mg 10/26/19 10:00 10/26/19 10:13 Vitamin C - PO 1,000 mg DAILY BELL Administration Atorvastatin Calcium 10 mg 10/25/19 22:00 10/25/19 22:27 Lipitor - PO 10 mg HS BELL Administration Bupropion HCl 150 mg 10/26/19 10:00 10/26/19 10:13 Wellbutrin Xl - PO 150 mg DAILY BELL Administration Cholecalciferol 1,000 unit 10/26/19 10:00 10/26/19 10:13 Vitamin D3 - PO 1,000 unit DAILY [facility] Administration Cyanocobalamin 1,000 mcg 10/26/19 10:00 10/26/19 10:13 Vitamin B12 - PO 1,000 mcg DAILY [facility] Administration Diltiazem HCl 360 mg 10/26/19 10:00 10/26/19 10:12 Cardizem Cd - PO 360 mg DAILY BELL Administration Docusate Sodium 100 mg 10/25/19 18:28 Colace - PO BID PRN CONSTIPATION Emollient Ointment 1 applic 10/26/19 10:00 10/26/19 10:12 Aquaphor - TP Not Given DAILY BELL Famotidine 20 mg 10/25/19 22:00 10/25/19 22:28 Pepcid - PO 20 mg HS BELL Administration Furosemide 60 mg 10/26/19 06:00 10/26/19 14:48 Lasix - PO 60 mg BIDLASIX BELL Administration Gabapentin 400 mg 10/25/19 22:00 10/26/19 14:48 Neurontin - PO 400 mg TID BELL Administration Guaifenesin 600 mg 10/25/19 19:30 Mucinex - PO DAILY PRN COUGH Insulin Aspart 1 vial 10/25/19 22:00 10/26/19 11:54 Novolog Vial Sliding Scale - SQ Not Given ACHS [facility] Protocol Levalbuterol HCl 0.31 mg 10/25/19 19:31 Xopenex IH Q8H PRN WHEEZING Metoprolol Tartrate 50 mg 10/25/19 22:00 10/26/19 10:13 Lopressor - PO 50 mg BID BELL Administration Nystatin 1 applic 10/25/19 19:31 Nystop Powder - TP TID PRN DRY SKIN Oxycodone HCl 5 mg 10/25/19 18:28 10/25/19 22:44 Roxicodone - PO 5 mg Q12H PRN Administration PAIN LEVEL 6-10 Polyethylene Glycol 17 gm 10/26/19 10:00 10/26/19 10:13 Miralax (For Daily Use) - PO 17 gm DAILY BELL Administration Silver Sulfadiazine 1 applic 10/26/19 10:30 10/26/19 11:15 Silvadene - TP Not Given DAILY [facility] ASSESSMENT/PLAN: 74F PMH chronic venous stasis ulcers, COPD (on home oxygen), CHF, Atrial Fibrillation (on Eliquis), Diabetes Mellitus, HTN, Srojen's disease, spinal stenosis, arthritis, MRSA+ cellulitis presents with 1 day history of open and bleeding ulcerations on her right lower extremity. 1)Exacerbation Venous stasis ulcers -Prednisone 40 mg PO to start taper -Silvadene to RLE wounds, clean with NS and gauze prior to application. Wrap with 4x4s/kerlix and change daily as per surgery. -Vascular surgery consulted, appreciate recs -Afebrile, WBC wnl, will wait for vascular recommendations for abx -Blood culture pending -Wound care -Oxycodone 5mg PO Q12PRN 2)Atrial Fibrillation -Apixaban 5 mg PO BID -Cardizem 360 PO Daily 3)Hypokalemia -Repleted 4) CHF -Metoprolol 50 mg PO [place] -Cardizem 360 PO daily 5)HTN -Metoprolol 50 mg PO Daily 6)CRF secondary to COPD on Home Oxygen- -Metabolic alkalosis compensatory for chronic CO2 retention -3L NC -Duonebs PRN -Chest X-Ray 7)DM -Sliding scale Novolong DVT prophylaxis: On Eliquis 5mg PO BID F: Oral hydration E: Monitor CMP N: Diabetic diet Dispo: Observation Visit type - Emergency Visit Emergency Visit: Yes ED Registration Date: 10/25/19 Care time: The patient presented to the Emergency Department on the above date and was hospitalized for further evaluation of their emergent condition. - New Patient This patient is new to me today: No - Critical Care Critical Care patient: No ATTENDING PHYSICIAN STATEMENT I saw and evaluated the patient. I reviewed the resident's note and discussed the case with the resident. I agree with the resident's findings and plan as documented. SUBJECTIVE: OBJECTIVE: ASSESSMENT AND PLAN:
[2019-10-26] MEDS ORDERED: oxyCODONE HCL 5 MG TABLET ONE (20:50)
[2019-10-26] MEDS: oxyCODONE HCL 5 MG TABLET PO PRN (20:53)
[2019-10-26] MEDS ORDERED: APIXABAN 5 MG TABLET ONE (22:15)
[2019-10-26] MEDS ORDERED: ATORVASTATIN CA 10 MG TABLET (FP) ONE (22:15)
[2019-10-26] MEDS: ATORVASTATIN CA 10 MG TABLET (FP) PO SCH (22:18)
[2019-10-27] MEDS: FAMOTIDINE 20 MG TABLET PO SCH (00:10)
[2019-10-27] MEDS: FUROSEMIDE 40 MG TABLET (FP) PO SCH ×2 (06:01→13:44)
[2019-10-27] MEDS ORDERED: GABAPENTIN 100 MG CAPSULE (FP) ONE ×2 (06:19→13:33)
[2019-10-27] MEDS: GABAPENTIN 400 MG CAPSULE (FP) PO SCH ×2 (06:24→13:44)
[2019-10-27] MEDS: INSULIN SLIDING SCALE (NOVOLOG) 1 VIAL SQ SCH ×2 (06:46→11:00)
[2019-10-27 07:37] LABS: ANION GAP 3 MMOL/L (8-16); BLOOD UREA NITROGEN 20.2 mg/dL (7-18); CALCIUM 8.5 mg/dL (8.5-10.1); CHLORIDE 93 mmol/L (98-107); CO2 > 45 mmol/L (21-32); CREATININE 0.5 mg/dL (0.55-1.3); GLUCOSE,RANDOM 86 mg/dL (74-106); POTASSIUM 3.2 mmol/L (3.5-5.1); SODIUM 141 mmol/L (136-145)
[2019-10-27] MEDS ORDERED: POTASSIUM CHLORIDE TABS 20 MEQ TABLET.ER (FP) PO ONE ×2 (08:06→13:33)
[2019-10-27] MEDS ORDERED: SILVER SULFADIAZINE 1% TOP CREAM 50 GM JAR TP ONE (09:55)
[2019-10-27] MEDS ORDERED: HYDROXYCHLOROQUINE SO4 200 MG TABLET (FP) PO SCH (10:00)
[2019-10-27] MEDS: CHOLECALCIFEROL (VIT D3) 1,000 UNIT (25 MCG) TABLET PO SCH (10:00)
[2019-10-27] MEDS: APIXABAN 5 MG TABLET PO SCH (10:00)
[2019-10-27] MEDS: CYANOCOBALAMIN 1,000 MCG TABLET (FP) PO SCH (10:00)
[2019-10-27] MEDS: ASCORBIC ACID 500 MG TABLET (FP) PO SCH (10:00)
[2019-10-27] MEDS ORDERED: predniSONE 20 MG TABLET (UD) PO SCH (10:00)
[2019-10-27] MEDS: SILVER SULFADIAZINE 1% TOP CREAM 50 GM JAR TP SCH (10:30)
[2019-10-27] MEDS: ACETAMINOPHEN 500 MG TABLET (FP) PO PRN (10:30)
[2019-10-27 12:03] VITALS: BP 106/43; PULSE 86
[2019-10-27] MEDS: MINERAL OIL/PET HY-PHL TOPICAL OINTMENT 454 GM JAR TP SCH (12:46)
[2019-10-27] MEDS: POLYETHYLENE GLYCOL 3350 119 GM BTL PO SCH (12:47)
[2019-10-27] MEDS: METOPROLOL TARTRATE 50 MG TABLET (FP) PO SCH (12:47)
[2019-10-27 13:14] VITALS: TEMP 97.8
--- NOTE | 2019-10-27 13:58 | PN ---
Teaching Attending Note Name of Resident: Kennedi Tracey ATTENDING PHYSICIAN STATEMENT I saw and evaluated the patient. I reviewed the resident's note and discussed the case with the resident. I agree with the resident's findings and plan as documented. SUBJECTIVE: Patient has no complaints and wants to go home. OBJECTIVE: Vital Signs Period Temp Pulse Resp BP Sys/William Pulse Ox Last 24 Hr 97.6 F 71-86 16-20 93-106/43-57 96-97 HEART: Irregular LUNGS: Clear ABDOMEN: Obese, soft, non-tender, non-distended, normal BS EXTREMITIES: Chronic venous stasis changes Laboratory Results - last 24 hr 10/26/19 10/26/19 10/27/19 15:22 17:16 05:50 Sodium 141 Potassium 3.8 3.2 L Chloride 93 L Carbon Dioxide > 45 H Anion Gap 3 L BUN 20.2 H Creatinine 0.5 L Est GFR (CKD-EPI)AfAm 112.07 Est GFR (CKD-EPI)NonAf 96.69 POC Glucometer 107 Random Glucose 86 Calcium 8.5 Current Medications Generic Name Dose Route Start Last Admin Trade Name Freq PRN Reason Stop Dose Admin Acetaminophen 500 mg 10/25/19 19:30 10/27/19 10:30 Tylenol - PO 500 mg Q6H PRN Administration PAIN LEVEL 1-5 Apixaban 5 mg 10/25/19 22:00 10/27/19 10:00 Eliquis - PO 5 mg BID BELL Administration Ascorbic Acid 1,000 mg 10/26/19 10:00 10/27/19 10:00 Vitamin C - PO 1,000 mg DAILY BELL Administration Atorvastatin Calcium 10 mg 10/25/19 22:00 10/26/19 22:18 Lipitor - PO 10 mg HS BELL Administration Bupropion HCl 150 mg 10/26/19 10:00 10/27/19 10:00 Wellbutrin Xl - PO 150 mg DAILY BELL Administration Cholecalciferol 1,000 unit 10/26/19 10:00 10/27/19 10:00 Vitamin D3 - PO 1,000 unit DAILY BELL Administration Cyanocobalamin 1,000 mcg 10/26/19 10:00 10/27/19 10:00 Vitamin B12 - PO 1,000 mcg DAILY BE[facility] Administration Diltiazem HCl 360 mg 10/26/19 10:00 10/27/19 10:00 Cardizem Cd - PO 360 mg DAILY BELL Administration Docusate Sodium 100 mg 10/25/19 18:28 Colace - PO BID PRN CONSTIPATION Emollient Ointment 1 applic 10/26/19 10:00 10/27/19 12:46 Aquaphor - TP Not Given DAILY BELL Famotidine 20 mg 10/25/19 22:00 10/27/19 00:10 Pepcid - PO 20 mg HS BELL Administration Furosemide 60 mg 10/26/19 06:00 10/27/19 06:01 Lasix - PO Not Given BIDLASIX BELL Gabapentin 400 mg 10/25/19 22:00 10/27/19 06:24 Neurontin - PO 400 mg TID BELL Administration Guaifenesin 600 mg 10/25/19 19:30 Mucinex - PO DAILY PRN COUGH Hydroxychloroquine Sulfate 200 mg 10/27/19 10:00 10/27/19 10:00 Plaquenil - PO 200 mg DAILY BE[facility] Administration Insulin Aspart 1 vial 10/25/19 22:00 10/27/19 11:00 Novolog Vial Sliding Scale - SQ Not Given ACHS [facility] Protocol Levalbuterol HCl 0.31 mg 10/25/19 19:31 Xopenex IH Q8H PRN WHEEZING Metoprolol Tartrate 50 mg 10/25/19 22:00 10/27/19 12:47 Lopressor - PO Not Given BID BELL Nystatin 1 applic 10/25/19 19:31 Nystop Powder - TP TID PRN DRY SKIN Oxycodone HCl 5 mg 10/25/19 18:28 10/26/19 20:53 Roxicodone - PO 5 mg Q12H PRN Administration PAIN LEVEL 6-10 Polyethylene Glycol 17 gm 10/26/19 10:00 10/27/19 12:47 Miralax (For Daily Use) - PO Not Given DAILY BELL Prednisone 40 mg 10/27/19 10:00 10/27/19 10:00 Deltasone - PO 40 mg DAILY BE[facility] Administration Silver Sulfadiazine 1 applic 10/26/19 10:30 10/27/19 10:30 Silvadene - TP 1 tube DAILY BELL Administration ASSESSMENT AND PLAN: 74 year old female with history of CRF sec to COPD on Home O2, Atrial fibrillation (on Eliquis), DM 2, HTN, HLD, Chronic Venous Stasis Dermatitis with Ulcers, Sjogren's presents with 1 day Hx of painful, open and bleeding ulcerations to her RLE. No recent trauma. No fever/chills. 1. Chronic venous stasis of both legs with dermatitis and RLE ulcers - Continue Prednisone taper, wound care 2. Atrial fibrillation, permanent - Rate controlled - Continue Lopressor, Cardizem CD, Eliquis 3. HTN - Continue Lopressor, Cardizem CD, Lasix 4. Chronic hypoxic respiratory failure secondary to COPD - Continue oxygen to maintain saturation >90% 5. Type 2 DM - Continue Novolog sliding scale 6. Hyperlipidemia - Continue Lipitor 7. Hypokalemia - Continue to replete potassium 8. Sjogren's - Continue Plaquenil 9. Morbid obesity with BMI 40.7 10. Disposition - Ok for discharge home
--- NOTE | 2019-10-27 15:01 | DS ---
Physical Exam: SUBJECTIVE: Patient seen and examined in the morning. No acute events overnight. No complaints of chest pain, shortness of breath,abdominal pain, fevers, chills, nausea, vomiting, diarrhea. OBJECTIVE: Vital Signs Period Temp Pulse Resp BP Sys/William Pulse Ox Last 24 Hr 97.6 F-97.8 F 71-86 16-20 93-106/43-57 96-97 PHYSICAL EXAM GENERAL: Awake, alert, and fully oriented, in no acute distress. HEAD: Normal with no signs of trauma. EYES: Pupils equal, round and reactive to light, extraocular movements intact, sclera anicteric, conjunctiva clear. EARS, NOSE, THROAT: Ears normal, nares patent, oropharynx clear without exudates. Moist mucous membranes. NECK: Normal range of motion, supple without lymphadenopathy, JVD, or masses. LUNGS: Breath sounds equal, clear to auscultation bilaterally. No wheezes, and no crackles. No accessory muscle use. HEART: Regular rate and rhythm, normal S1 and S2 without murmur, rub or gallop. ABDOMEN: Soft, nontender, not distended, normoactive bowel sounds, no guarding, no rebound, no masses. MUSCULOSKELETAL: Normal range of motion at all joints. No bony deformities or tenderness. No CVA tenderness. UPPER EXTREMITIES: 2+ pulses, warm, well-perfused. No cyanosis. No clubbing. No peripheral edema. LOWER EXTREMITIES: 2+ pulses, warm, well-perfused. No calf tenderness. No peripheral edema. Right lower extremity has cellulitis, with open ulcers and bleeding. No pus. Left lower extremity has signs of chronic venous stasis, no open wounds. NEUROLOGICAL: Cranial nerves II-XII intact. Normal speech. SKIN: Warm, dry, normal turgor, no rashes or lesions noted, normal capillary refill. LABS Laboratory Results - last 24 hr 10/26/19 10/26/19 10/27/19 15:22 17:16 05:50 Sodium 141 Potassium 3.8 3.2 L Chloride 93 L Carbon Dioxide > 45 H Anion Gap 3 L BUN 20.2 H Creatinine 0.5 L Est GFR (CKD-EPI)AfAm 112.07 Est GFR (CKD-EPI)NonAf 96.69 POC Glucometer 107 Random Glucose 86 Calcium 8.5 HOSPITAL COURSE: Date of Admission:10/25/19 Date of Discharge: 10/27/19 74F H chronic venous stasis ulcers, COPD (on home oxygen), CHF, Atrial Fibrillation (on Eliquis), Diabetes Mellitus, HTN, Srojen's disease, spinal stenosis, arthritis, MRSA+ cellulitis presents with 1 day history of open and bleeding ulcerations on her right lower extremity. Patient was started on prednisone 40 mg taper as it has helped in the past. Patient was seen by vascular surgery and they recommended silvadene cream and daily dressing changes with gauze and kerlix. Patient did not require antibiotic therapy at this time. Prednisone taper will be 40 mg for 2 days, 35 mg for 3 days, 30 mg for 3 days, 25 mg for 3 days, 20 mg for 3 days, 15 mg for 3 days, 10 mg for 3 days, 5 mg for 3 days and then complete. Patient will be following up with Dr. Gonzalez as an outpatient. Imaging done this admission: Chest X-Ray: Single AP view of the chest reveals marked improvement since 10/09. There is still a large heart with unfolded aorta there is some atelectasis at the left base but there is no sign of failure or infiltrate. There is fluid in the horizontal fissure. Correlation recommended. Minutes to complete discharge: 30 Discharge Summary Problems reviewed: Yes Reason For Visit: ULCER OF LOWER EXGTREMITY/VENOUS STASIS DERMATITIS Condition: Improved - Instructions Diet, Activity, Other Instructions: You were admitted to the hospital because you were having bleeding of the ulcers on your legs. We started you on steroids that have worked for you in the past and had the vascular surgery/wound care team come see you. He recommended that you clean the right leg with normal saline and gauze, and then apply silvadene cream. You should wrap the legs with 4x4 gauze pad/Kerlix and change it daily. Apply moisturizer to the left leg. Keep your legs elevated above the level of the heart. We are starting you on a slow prednisone taper. Please take your prednisone 40 mg for 1 day, then 35 mg for 3 days, then 30 mg for 3 days, then 25 mg for 3 days, then 20 mg for 3 days, then 15 mg for 3 days, then 10 mg for 3 days, then 5 mg for 3 days, then off. Please continue all other home medications as directed. Please follow-up with Dr. Gonzalez within 1 week to continue your wound care. Please follow-up with Dr. Boykin to update him on this admission and to continue your health maintenance. Return to the emergency department if you have pain in your legs, bleeding, chest pains, shortness of breath, or worsening of your symptoms. Referrals: Mike Boykin MD [Primary Care Provider] - 1 Week Tejas Gonzalez MD [Staff Physician] - 1 Week Disposition: HOME - Home Medications Comprehensive Discharge Medication List: Ambulatory Orders Acetaminophen [Tylenol Extra Strength] 500 mg PO Q6H PRN 10/25/19 Apixaban [Eliquis -] 5 mg PO BID 10/25/19 Ascorbate Calcium [Vitamin C] 1,000 mg PO DAILY 10/25/19 Bupropion HCl [Bupropion Xl] 150 mg PO DAILY 10/25/19 Cholecalciferol (Vitamin D3) [Vitamin D3] 1,000 unit PO DAILY 10/25/19 Cyanocobalamin [Vitamin B12 -] 1,000 mcg PO DAILY 10/25/19 Diltiazem Cd [Cardizem Cd -] 360 mg PO DAILY 10/25/19 Furosemide [Lasix -] 60 mg PO BID 10/25/19 Gabapentin [Neurontin -] 400 mg PO Q8H 10/25/19 Guaifenesin [Mucinex] 600 mg PO DAILY 10/25/19 Hydroxychloroquine So4 [Plaquenil -] 200 mg PO DAILY 10/25/19 Levalbuterol HCl [Xopenex] 0.31 mg IH Q8H PRN 10/25/19 Metoprolol Tartrate 50 mg PO BID 10/25/19 Mineral Oil/Pet Hy-Phl [Aquaphor -] 1 applic TP DAILY 10/25/19 Nystatin Powder [Nystop Powder -] 60 gm TP TID PRN 10/25/19 Oxycodone HCl/Acetaminophen [Percocet 5-325 mg Tablet] 1 tablet PO QID PRN 10/25 Polyethylene Glycol 3350 17 gm PO DAILY 10/25/19 Ranitidine HCl 150 mg PO HS 10/25/19 Simvastatin 10 mg PO HS 10/25/19 Silver Sulfadiazine 1% Top Cr [Silvadene -] 1 applic TP DAILY #2 jar 10/27/19 predniSONE [Deltasone -] See Taper PO ASDIR #81 tab 10/27/19 This patient is new to me today: No Emergency Visit: Yes ED Registration Date: 10/25/19 Care time: The patient presented to the Emergency Department on the above date and was hospitalized for further evaluation of their emergent condition. Critical Care patient: No - Discharge Referral Referred to [facility] Med [facility].C.: No ATTENDING PHYSICIAN STATEMENT I saw and evaluated the patient. I reviewed the resident's note and discussed the case with the resident. I agree with the resident's findings and plan as documented. SUBJECTIVE: OBJECTIVE: ASSESSMENT AND PLAN:
== END 2019-10-27 14:47 | disposition home or self-care (01) ==
LOC: JER 13:38 → UNDOADMOB 17:57 → JERBED 17:57 → INTOOBSV 17:57 → JERBED 18:25
PROVIDERS: ATTEND Internal Medicine
DX: L97.811 Non-pressure chronic ulcer of other part of right lower leg limited to breakdown of skin (principal); I87.2 Venous insufficiency (chronic) (peripheral); I25.10 Atherosclerotic heart disease of native coronary artery without angina pectoris; I13.0 Hypertensive heart and chronic kidney disease with heart failure and stage 1 through stage 4 chronic kidney disease, or unspecified chronic kidney disease; N18.9 Chronic kidney disease, unspecified; I50.33 Acute on chronic diastolic (congestive) heart failure; I48.91 Unspecified atrial fibrillation; Z79.01 Long term (current) use of anticoagulants; I89.0 Lymphedema, not elsewhere classified; E78.00 Pure hypercholesterolemia, unspecified; E87.6 Hypokalemia; J44.9 Chronic obstructive pulmonary disease, unspecified; Z99.81 Dependence on supplemental oxygen; K21.9 Gastro-esophageal reflux disease without esophagitis; M35.00 Sjogren syndrome, unspecified; M06.9 Rheumatoid arthritis, unspecified; J96.11 Chronic respiratory failure with hypoxia; M48.00 Spinal stenosis, site unspecified; E66.01 Morbid (severe) obesity due to excess calories; Z68.41 Body mass index [BMI] 40.0-44.9, adult; Z88.0 Allergy status to penicillin; Z88.1 Allergy status to other antibiotic agents; Z91.048 Other nonmedicinal substance allergy status; Z86.14 Personal history of Methicillin resistant Staphylococcus aureus infection; Z94.7 Corneal transplant status
CPT/HCPCS: 36415; 71045-TC-FY; 80048; 80053; 82962; 84132; 85025; 87040; 93005; 93010; 99285-25; G0378

== ENCOUNTER 2019-11-13 12:58 | Inpatient (IN) | payer OTHER, MEDICARE ==
--- NOTE | 2019-11-13 13:27 | PDOC ---
History of Present Illness - General Chief Complaint: Pain Stated Complaint: BILATERAL LEG PAIN Time Seen by Provider: 11/13/19 13:27 History Source: Patient Exam Limitations: No Limitations - History of Present Illness Initial Comments: 11/13/19 13:27 PCP: Dr. Boykin PMH: 74F PMH chronic venous stasis ulcers, COPD (on home oxygen), CHF, Atrial Fibrillation (on Eliquis), Diabetes Mellitus, HTN, Srojen's disease, spinal stenosis, arthritis, MRSA+ cellulitis presents from home with concern for evolving cellulitis noticed by visiting nurse this morning. Multiple admissions for recurrent cellulitis, hx of daptomycin / aztreonam clearance while admitted. Denies fevers, chills, nausea, vomiting, chest pain, SOB, recent skin breaks. Hx of DVT in RLE, reports this feels different, no heart racing, no SOB , no unilateral swelling aside from cellulitic regions. All: Per chart Meds: per chart PMH: as above PSH: as above Past History - Travel Traveled outside of the country in the last 30 days: No Close contact w/someone who was outside of country & ill: No - Past Medical History Allergies/Adverse Reactions: Allergies Allergy/AdvReac Type Severity Reaction Status Date / Time Penicillins Allergy Severe Swelling Verified 11/13/19 13:05 clindamycin Allergy Mild Rash Verified 11/13/19 13:05 doxycycline Allergy Swelling Verified 11/13/19 13:05 levofloxacin [From Levaquin] Allergy Rash Verified 11/13/19 13:05 vancomycin AdvReac Mild Itching Verified 11/13/19 13:05 adhesive tape AdvReac "RIPS MY Verified 11/13/19 13:05 SKIN" Home Medications: Ambulatory Orders Acetaminophen [Tylenol Extra Strength] 500 mg PO Q6H PRN 10/25/19 Apixaban [Eliquis -] 5 mg PO BID 10/25/19 Ascorbate Calcium [Vitamin C] 1,000 mg PO DAILY 10/25/19 Bupropion HCl [Bupropion Xl] 150 mg PO DAILY 10/25/19 Cholecalciferol (Vitamin D3) [Vitamin D3] 1,000 unit PO DAILY 10/25/19 Cyanocobalamin [Vitamin B12 -] 1,000 mcg PO DAILY 10/25/19 Diltiazem Cd [Cardizem Cd -] 360 mg PO DAILY 10/25/19 Furosemide [Lasix -] 60 mg PO BID 10/25/19 Gabapentin [Neurontin -] 400 mg PO Q8H 10/25/19 Guaifenesin [Mucinex] 600 mg PO DAILY 10/25/19 Hydroxychloroquine So4 [Plaquenil -] 200 mg PO DAILY 10/25/19 Levalbuterol HCl [Xopenex] 0.31 mg IH Q8H PRN 10/25/19 Metoprolol Tartrate 50 mg PO BID 10/25/19 Mineral Oil/Pet Hy-Phl [Aquaphor -] 1 applic TP DAILY 10/25/19 Nystatin Powder [Nystop Powder -] 60 gm TP TID PRN 10/25/19 Oxycodone HCl/Acetaminophen [Percocet 5-325 mg Tablet] 1 tablet PO QID PRN 10/25 Polyethylene Glycol 3350 17 gm PO DAILY 10/25/19 Ranitidine HCl 150 mg PO HS 10/25/19 Simvastatin 10 mg PO HS 10/25/19 Silver Sulfadiazine 1% Top Cr [Silvadene -] 1 applic TP DAILY #2 jar 10/27/19 predniSONE [Deltasone -] See Taper PO ASDIR #81 tab 10/27/19 Anemia: No Asthma: No Cancer: No Cardiac Disorders: Yes (AFIB) CVA: No COPD: Yes (HOME O2 3L) CHF: Yes Dementia: No Diabetes: No GI Disorders: Yes (GERD) Disorders: No HTN: Yes Hypercholesterolemia: Yes Liver Disease: No Seizures: No Thyroid Disease: Yes (LEFT THYROID LUMP) - Surgical History Abdominal Surgery: No Appendectomy: No Cardiac Surgery: No Cholecystectomy: No Lung Surgery: No Neurologic Surgery: No Orthopedic Surgery: Yes (BILATERAL KNEE REPLACEMENT) - Immunization History Immunization Up to Date: No - Psycho Social/Smoking Cessation Hx Smoking History: Former smoker Have you smoked in the past 12 months: No Number of Cigarettes Smoked Daily: 0 If you are a former smoker, when did you quit?: 1985 Cigars Per Day: 0 Information on smoking cessation initiated: No 'Breaking Loose' booklet given: 08/30/17 Hx Alcohol Use: No Drug/Substance Use Hx: No Substance Use Type: None Hx Substance Use Treatment: No Review of Systems - Review of Systems Able to Perform ROS?: Yes Is the patient limited [place] proficient: Yes Constitutional: No: Chills, Diaphoresis, Fever HEENTM: No: Recent change in vision, Nose Congestion, Throat Pain Respiratory: No: Cough, Orthopnea, Shortness of Breath Cardiac (ROS): No: Chest Pain, Edema, Irregular Heart Rate, Chest Tightness ABD/GI: No: Constipated, Diarrhea, Nausea, Vomiting : No: Burning, Dysuria, Discharge, Frequency Musculoskeletal: No: Back Pain, Muscle Pain, Muscle Weakness Integumentary: Yes: See HPI, Change in Color, Erythema, Rash. No: Bruising, Dryness, Pruritus Neurological: No: Headache, Numbness, Tingling, Weakness Psychiatric: No: Stressors, Emotional Problems, Mood Swings, Change in Appetite Endocrine: No: Increased Hunger, Increased Thirst, Change in Weight Hematologic/Lymphatic: No: Anemia, Blood Clots, Easy Bleeding All Other Systems: Reviewed and Negative *Physical Exam - Vital Signs Last Vital Signs Temp Pulse Resp BP Pulse Ox 98.6 F 98 H 19 99/56 L 100 11/13/19 13:03 11/13/19 13:03 11/13/19 13:03 11/13/19 13:03 11/13/19 13:03 - Physical Exam 11/13/19 13:29 Vitals reviewed, BP soft (c/w prior pressures in chart), otherwise AFHDS Obese woman, NAD, sitting upright in hospital bed RRR, nl s1s2, no murmurs appreciated CTABL, normal WOB, no wheezes / rales / rhonchi Obese, soft, tender over region of well-demarcated warm erythema extending along the edge of pt pannis 2+ radial pulses, LE with chronic venous stasis changes, scaling skin, LLE warm , swollen on foot and part of anterior thigh, bilateral knee replacement scars CN grossly intact, MAEE, sensation preserved Normal mood and effect ED Treatment Course - LABORATORY CBC & Chemistry Diagram: 11/14/19 05:30 11/14/19 05:30 Medical Decision Making - Medical Decision Making 11/13/19 13:31 74F PMH chronic venous stasis ulcers, COPD (on home oxygen), CHF, Atrial Fibrillation (on Eliquis), Diabetes Mellitus, HTN, Srojen's disease, spinal stenosis, arthritis, MRSA+ cellulitis presents with bilateral LE pain. Gradual onset, spreading, no fevers / chills. Clinically appears as a cellulitis. Unlikely DVT, on eloquis. Prior dapto/aztreonam, will consult ID regarding coverage. - CBC, CMP, Coags, BCx - EKG for admission - Will reach out to ID regarding ABX selection 11/13/19 16:32 - Call placed to Dr. Lee, ID - Leukocytosis of 13.2, afebrile Admit Med/Surg Discharge - Discharge Information Problems reviewed: Yes Clinical Impression/Diagnosis: Cellulitis Qualifiers: Site of cellulitis: trunk Site of cellulitis of trunk: abdominal wall Qualified Code(s): L03.311 - Cellulitis of abdominal wall Condition: Stable - Admission Yes - Follow up/Referral - Patient Discharge Instructions - Post Discharge Activity
[2019-11-13 15:57] LABS: BASO % 0.1 % (0-2.0); EOS % 0.3 % (0-4.5); HEMATOCRIT 45.3 % (32.4-45.2); HEMOGLOBIN 14.3 GM/dL (10.7-15.3); LYMPH % 5.9 % (8-40); MCH 25.3 pg (25.7-33.7); MCHC 31.6 g/dl (32.0-36.0); MEAN CELL VOLUME 79.8 fl (80-96); MEAN PLT VOLUME 9.1 fl (7.5-11.1); MONO % 4.5 % (3.8-10.2); NEUT % 89.2 % (42.8-82.8); PLATELET COUNT 179 K/MM3 (134-434); RBC 5.67 M/mm3 (3.60-5.2); RDW 16.4 % (11.6-15.6); WHITE BLOOD COUNT 13.2 K/mm3 (4.0-10.0)
[2019-11-13 16:23] LABS: ALBUMIN 3.2 g/dl (3.4-5.0); BILIRUBIN,TOTAL 0.7 mg/dL (0.2-1); CALCIUM 9.5 mg/dL (8.5-10.1); CREATININE 0.5 mg/dL (0.55-1.3); INR 1.34 (0.83-1.09); POTASSIUM 3.7 mmol/L (3.5-5.1); PROTHROMBIN TIME (PATIENT) 15.8 SEC (9.7-13.0); TOT PROT 6.8 g/dl (6.4-8.2)
[2019-11-13 16:26] LABS: ACTIVATED PTT 40.4 SECONDS (25.2-36.5)
--- NOTE | 2019-11-13 17:29 | PDOC ---
Attending Attestation - Resident Resident Name: Sam Acuna - ED Attending Attestation I have performed the following: I have examined & evaluated the patient, The case was reviewed & discussed with the resident, I agree w/resident's findings & plan, Exceptions are as noted - HPI HPI: 11/13/19 17:29 Reviewed resident's HPI - Physicial Exam PE: Bilateral lower extremity cellulitis left lower extremity greater than right Panniculitis with no perineum involvement - Medical Decision Making 11/13/19 17:28 74 years old with recurrent lower extremity cellulitis and panniculitis patient with multiple drug allergies will require admission for IV antibiotics for further management
--- NOTE | 2019-11-13 17:52 | HP ---
Admitting History and Physical - Primary Care Physician PCP: Mike Boykin - Admission Chief Complaint: bilateral leg pain L>R History of Present Illness: 74F PMH chronic venous stasis ulcers, COPD (on home oxygen), CHF, Atrial Fibrillation (on Eliquis), Diabetes Mellitus, HTN, Srojen's disease, spinal stenosis, arthritis, MRSA+ cellulitis presents from home with concern for evolving cellulitis noticed by visiting nurse this morning. Discharge home 10/27. Multiple admissions for recurrent cellulitis, hx of daptomycin / aztreonam clearance while admitted. Denies fevers, chills, nausea, vomiting, chest pain, SOB, recent skin breaks. Hx of DVT in RLE, reports this feels different, no heart racing, no SOB, no unilateral swelling aside from cellulitic regions. History Source: Patient, Medical Record Limitations to Obtaining History: No Limitations - Past Medical History Cardiovascular: Yes: AFIB (on eliquis), CHF, HTN, Other (h/o DVT, venous stasis ) Pulmonary: Yes: COPD, O2 Dependent (at home), Sleep Apnea Hepatobiliary: Yes: Other (fatty liver disease) Heme/Onc: Yes: Anemia Infectious Disease: Yes: Other (recurrent cellulitis) Musculoskeletal: Yes: Chronic low back pain (/spinal stenosis) Rheumatology: Yes: Rheumatoid Arthritis Endocrine: Yes: Osteopenia, Other (obesity, thyroid nodule) - Past Surgical History Past Surgical History: Yes: Joint Replacement (right knee over 10 years ago) Additional Past Surgical History: lipoma removal neck, thyroid surgery, 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 Has home health aides. Sister in law lives upstairs and can help them, but rarely visits) ADL: Support Services History of Recent Travel: No Home Medications - Allergies Allergies/Adverse Reactions: Allergies Allergy/AdvReac Type Severity Reaction Status Date / Time Penicillins Allergy Severe Swelling Verified 11/13/19 13:05 clindamycin Allergy Mild Rash Verified 11/13/19 13:05 doxycycline Allergy Swelling Verified 11/13/19 13:05 levofloxacin [From Levaquin] Allergy Rash Verified 11/13/19 13:05 vancomycin AdvReac Mild Itching Verified 11/13/19 13:05 adhesive tape AdvReac "RIPS MY Verified 11/13/19 13:05 SKIN" - Home Medications Home Medications: Ambulatory Orders Acetaminophen [Tylenol Extra Strength] 500 mg PO Q6H PRN 10/25/19 Apixaban [Eliquis -] 5 mg PO BID 10/25/19 Ascorbate Calcium [Vitamin C] 1,000 mg PO DAILY 10/25/19 Bupropion HCl [Bupropion Xl] 150 mg PO DAILY 10/25/19 Cholecalciferol (Vitamin D3) [Vitamin D3] 1,000 unit PO DAILY 10/25/19 Cyanocobalamin [Vitamin B12 -] 1,000 mcg PO DAILY 10/25/19 Diltiazem Cd [Cardizem Cd -] 360 mg PO DAILY 10/25/19 Furosemide [Lasix -] 60 mg PO BID 10/25/19 Gabapentin [Neurontin -] 400 mg PO Q8H 10/25/19 Guaifenesin [Mucinex] 600 mg PO DAILY 10/25/19 Hydroxychloroquine So4 [Plaquenil -] 200 mg PO DAILY 10/25/19 Levalbuterol HCl [Xopenex] 0.31 mg IH Q8H PRN 10/25/19 Metoprolol Tartrate 50 mg PO BID 10/25/19 Mineral Oil/Pet Hy-Phl [Aquaphor -] 1 applic TP DAILY 10/25/19 Nystatin Powder [Nystop Powder -] 60 gm TP TID PRN 10/25/19 Oxycodone HCl/Acetaminophen [Percocet 5-325 mg Tablet] 1 tablet PO QID PRN 10/25 Polyethylene Glycol 3350 17 gm PO DAILY 10/25/19 Ranitidine HCl 150 mg PO HS 10/25/19 Simvastatin 10 mg PO HS 10/25/19 Silver Sulfadiazine 1% Top Cr [Silvadene -] 1 applic TP DAILY #2 jar 10/27/19 predniSONE [Deltasone -] See Taper PO ASDIR #81 tab 10/27/19 Review of Systems - Review of Systems Constitutional: reports: Chills, Fever Integumentary: reports: Erythema, Rash, Wound Physical Examination Vital Signs: Vital Signs Temperature 98.6 F 11/13/19 13:03 Pulse Rate 98 H 11/13/19 13:03 Respiratory Rate 19 11/13/19 13:03 Blood Pressure 99/56 L 11/13/19 13:03 O2 Sat by Pulse Oximetry (%) 100 11/13/19 13:03 Constitutional: Yes: No Distress, Obese Eyes: Yes: WNL, Conjunctiva Clear, EOM Intact HENT: Yes: WNL, Atraumatic, Normocephalic Neck: Yes: WNL, Supple, Trachea Midline Cardiovascular: Yes: WNL, Regular Rate and Rhythm Respiratory: Yes: WNL, Regular, CTA Bilaterally Gastrointestinal: Yes: WNL, Normal Bowel Sounds ...Rectal Exam: Yes: Deferred Renal/: Yes: Incontinence Breast(s): Yes: WNL Musculoskeletal: Yes: Muscle Weakness Extremities: Yes: Erythema (LLE with chronic venous stasis/cellulitic changes, scaling skin, LLE warm, swollen on foot and part of anterior thigh, bilateral knee replacement scars) Edema: Yes Edema: LLE: 2+, RLE: 2+ Peripheral Pulses WNL: No Peripheral Pulses: Left Radial: 2+, Right Radial: 2+, Left Doralis Pedis: 1+, Right Dorsalis Pedis: 1+, Left Femoral: 1+, Right Femoral: 1+ Integumentary: Yes: Rash (tender over region of well-demarcated warm erythema extending along the edge of pt pannis) Neurological: Yes: WNL, Alert, Oriented ...Motor Strength: LUE (genralized weakness), LLE, RUE, RLE Psychiatric: Yes: WNL Labs: CBC, BMP 11/13/19 15:00 11/13/19 15:00 Problem List - Problems (1) Spinal stenosis Assessment/Plan: takes tylenol/percocet at home PT request Code(s): M48.00 - SPINAL STENOSIS, SITE UNSPECIFIED (2) MRSA cellulitis Assessment/Plan: recent history of MRSA clearing with axtreonam and daptomycin Code(s): L03.90 - CELLULITIS, UNSPECIFIED; B95.62 - METHICILLIN RESIS STAPH INFCT CAUSING DISEASES CLASSD ELSWHR (3) COPD (chronic obstructive pulmonary disease) Assessment/Plan: O2 dependent at home supplemental O2 to mainatin SPO@ >88% c/w levabuterol nebs used on previous admission Code(s): J44.9 - CHRONIC OBSTRUCTIVE PULMONARY DISEASE, UNSPECIFIED (4) On home oxygen therapy Code(s): Z99.81 - DEPENDENCE ON SUPPLEMENTAL OXYGEN (5) Cellulitis Assessment/Plan: Dr Lee to see pt axtreonam/daptpmycin to be ordered. wound care to LE Code(s): L03.90 - CELLULITIS, UNSPECIFIED Qualifiers: Site of cellulitis: trunk Site of cellulitis of trunk: abdominal wall Qualified Code(s): L03.311 - Cellulitis of abdominal wall (6) Afib Assessment/Plan: rate controlled c/w home diltiazem c/w apixiban Code(s): I48.91 - UNSPECIFIED ATRIAL FIBRILLATION (7) Diastolic CHF Assessment/Plan: c/w lasix Code(s): I50.30 - UNSPECIFIED DIASTOLIC (CONGESTIVE) HEART FAILURE Qualifiers: Heart failure chronicity: chronic Qualified Code(s): I50.32 - Chronic diastolic (congestive) heart failure (8) HLD (hyperlipidemia) Assessment/Plan: c/w atorvastatin Code(s): E78.5 - HYPERLIPIDEMIA, UNSPECIFIED (9) HTN (hypertension) Assessment/Plan: c/w diltiazem c/w metoprolol Code(s): I10 - ESSENTIAL (PRIMARY) HYPERTENSION (10) Lymphedema of both lower extremities Code(s): I89.0 - LYMPHEDEMA, NOT ELSEWHERE CLASSIFIED (11) Obesity Assessment/Plan: weight loss counseling PT request placed Code(s): E66.9 - OBESITY, UNSPECIFIED Qualifiers: Obesity type: with alveolar hypoventilation Obesity classification: adult class 3 (BMI >= 40) Serious obesity comorbidity presence: with serious comorbidity Body mass index: BMI 40.0-44.9 Qualified Code(s): E66.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 (12) Sjogrens syndrome Assessment/Plan: c/w plaquenil Code(s): M35.00 - SICCA SYNDROME, UNSPECIFIED (13) Venous stasis dermatitis Assessment/Plan: c/w aquophor -home use Code(s): I87.2 - VENOUS INSUFFICIENCY (CHRONIC) (PERIPHERAL) Qualifiers: Laterality: bilateral Qualified Code(s): I87.2 - Venous insufficiency ( chronic) (peripheral) (14) Prophylactic measure Assessment/Plan: FEN tolerating po monitor electrolytes diabetic/low sodium diet DVT apixaban Dispo maintain as inpatient discharge planning full code Code(s): Z29.9 - ENCOUNTER FOR PROPHYLACTIC MEASURES, UNSPECIFIED Visit type - Emergency Visit Emergency Visit: Yes ED Registration Date: 11/13/19 Care time: The patient presented to the Emergency Department on the above date and was hospitalized for further evaluation of their emergent condition. - New Patient This patient is new to me today: Yes Date on this admission: 11/13/19 - Critical Care Critical Care patient: No
[2019-11-13] MEDS ORDERED: AZTREONAM 1 GM VIAL (RESTRICTED TO ID) ONE (18:10)
[2019-11-13] MEDS: AZTREONAM 1 GM in DEXTROSE 5%-WATER - 50 ML IVPB SCH (18:23)
[2019-11-13] MEDS ORDERED: LEVALBUTEROL HCL 0.31 MG/3 ML VIAL.NEB IH PRN ×2 (18:28→23:31)
[2019-11-13] MEDS ORDERED: GABAPENTIN 400 MG CAPSULE (FP) PO SCH (18:30)
[2019-11-13] MEDS ORDERED: GABAPENTIN 100 MG CAPSULE (FP) ONE ×2 (18:38→22:59)
[2019-11-13] MEDS ORDERED: HEPARIN NA (PORCINE) 5,000 UNITS/ML 1ML VIAL SQ SCH (22:00)
[2019-11-13] MEDS ORDERED: APIXABAN 5 MG TABLET ONE (22:58)
[2019-11-13] MEDS ORDERED: ATORVASTATIN CA 40 MG TABLET (FP) ONE (22:59)
[2019-11-13] MEDS: APIXABAN 5 MG TABLET PO SCH (23:30)
[2019-11-13] MEDS: LINEZOLID 600 MG TABLET (RESTRICTED TO ID) PO SCH (23:30)
[2019-11-13] MEDS: MINERAL OIL/PET HY-PHL TOPICAL OINTMENT 454 GM JAR TP SCH (23:30)
[2019-11-13] MEDS: FAMOTIDINE 40 MG/5 ML ORAL SUSPENSION PO SCH (23:30)
[2019-11-13] MEDS: ATORVASTATIN CA 40 MG TABLET (FP) PO SCH (23:30)
[2019-11-13] MEDS: GABAPENTIN 400 MG CAPSULE (FP) PO SCH (23:30)
[2019-11-13] MEDS: METOPROLOL TARTRATE 50 MG TABLET (FP) PO SCH (23:51)
[2019-11-14] MEDS: INSULIN SLIDING SCALE (NOVOLOG) 1 VIAL SQ SCH ×2 (00:20→07:33)
[2019-11-14] MEDS ORDERED: ACETAMINOPHEN 325 MG TABLET (FP) ONE (02:24)
[2019-11-14] MEDS ORDERED: AZTREONAM 1 GM VIAL (RESTRICTED TO ID) ONE ×3 (02:24→17:55)
[2019-11-14] MEDS: AZTREONAM 1 GM in DEXTROSE 5%-WATER - 50 ML IVPB SCH ×3 (02:35→18:26)
[2019-11-14] MEDS: ACETAMINOPHEN 500 MG TABLET (FP) PO PRN ×3 (02:36→20:21)
[2019-11-14 06:21] LABS: BASO % 0.2 % (0-2.0); HEMATOCRIT 37.5 % (32.4-45.2); LYMPH % 16.3 % (8-40); MCH 25.3 pg (25.7-33.7); MCHC 32.1 g/dl (32.0-36.0); MEAN CELL VOLUME 78.9 fl (80-96); MEAN PLT VOLUME 8.9 fl (7.5-11.1); MONO % 7.2 % (3.8-10.2); NEUT % 74.3 % (42.8-82.8); PLATELET COUNT 169 K/MM3 (134-434); RBC 4.75 M/mm3 (3.60-5.2); RDW 16.1 % (11.6-15.6); WHITE BLOOD COUNT 8.8 K/mm3 (4.0-10.0)
[2019-11-14 06:49] LABS: ALBUMIN 2.5 g/dl (3.4-5.0); BILIRUBIN,TOTAL 0.6 mg/dL (0.2-1); BLOOD UREA NITROGEN 16.2 mg/dL (7-18); CALCIUM 8.5 mg/dL (8.5-10.1); CREATININE 0.5 mg/dL (0.55-1.3); MAGNESIUM 1.8 mg/dL (1.8-2.4); POTASSIUM 3.4 mmol/L (3.5-5.1); TOT PROT 5.4 g/dl (6.4-8.2)
[2019-11-14] MEDS ORDERED: GABAPENTIN 100 MG CAPSULE (FP) ONE (06:59)
[2019-11-14] MEDS ORDERED: FUROSEMIDE 40 MG TABLET (FP) ONE (06:59)
[2019-11-14] MEDS: GABAPENTIN 400 MG CAPSULE (FP) PO SCH ×3 (07:04→22:06)
[2019-11-14] MEDS: FUROSEMIDE 20 MG TABLET (FP) PO SCH ×2 (07:04→16:40)
--- NOTE | 2019-11-14 08:51 | PN ---
Progress Note, Physician Chief Complaint: Upset that she is still in the ED. Awaiting a med surg isolation bed. States her left leg is still sore but feels better History of Present Illness: 74F PMH chronic venous stasis ulcers, COPD (on home oxygen), CHF, Atrial Fibrillation (on Eliquis), Diabetes Mellitus, HTN, Srojen's disease, spinal stenosis, arthritis, MRSA+ cellulitis presents from home with concern for evolving cellulitis noticed by visiting nurse this morning. Discharge home 10/27. Multiple admissions for recurrent cellulitis, hx of daptomycin / aztreonam clearance while admitted. Denies fevers, chills, nausea, vomiting, chest pain, SOB, recent skin breaks. Hx of DVT in RLE, reports this feels different, no heart racing, no SOB, no unilateral swelling aside from cellulitic regions. - Current Medication List Current Medications: Active Medications Acetaminophen (Tylenol -) 500 mg PO Q6H PRN PRN Reason: PAIN LEVEL 1-5 Last Admin: 11/14/19 08:40 Dose: 500 mg Apixaban (Eliquis -) 5 mg PO BID [facility] Last Admin: 11/13/19 23:30 Dose: 5 mg Ascorbic Acid (Vitamin C -) 500 mg PO DAILY [facility] Atorvastatin Calcium (Lipitor -) 40 mg PO HS [facility] Last Admin: 11/13/19 23:30 Dose: 40 mg Bupropion HCl (Wellbutrin Xl -) 150 mg PO DAILY [facility] Cholecalciferol (Vitamin D3 -) 1,000 unit PO DAILY [facility] Cyanocobalamin (Vitamin B12 -) 1,000 mcg PO DAILY [facility] Diltiazem HCl (Cardizem Cd -) 360 mg PO DAILY [facility] Emollient Ointment (Aquaphor -) 1 applic TP BID [facility] Last Admin: 11/13/19 23:30 Dose: 1 applic Famotidine (Pepcid) 20 mg PO DAILY@2200 [facility] Last Admin: 11/13/19 23:30 Dose: 20 mg Furosemide (Lasix -) 60 mg PO BIDLASIX [facility] Last Admin: 11/14/19 07:04 Dose: 60 mg Gabapentin (Neurontin -) 400 mg PO TID [facility] Last Admin: 11/14/19 07:04 Dose: 400 mg Guaifenesin (Mucinex -) 600 mg PO DAILY [facility] Hydroxychloroquine Sulfate (Plaquenil -) 200 mg PO DAILY [facility] Aztreonam 1 gm/ Dextrose 50 mls @ 100 mls/hr IVPB Q8H-IV [facility]; Protocol Last Admin: 11/14/19 02:35 Dose: 100 mls/hr Levalbuterol HCl (Xopenex) 0.31 mg IH Q8H PRN PRN Reason: WHEEZING Levalbuterol HCl (Xopenex) 0.31 mg IH Q8H PRN PRN Reason: WHEEZING Linezolid (Zyvox (Restricted To Id) -) 600 mg PO BID [facility] Last Admin: 11/13/19 23:30 Dose: 600 mg Metoprolol Tartrate (Lopressor -) 50 mg PO BID [facility] Last Admin: 11/13/19 23:51 Dose: Not Given Nystatin (Nystop Powder -) 1 applic TP TID PRN PRN Reason: DRY SKIN Polyethylene Glycol (Miralax (For Daily Use) -) 17 gm PO DAILY [facility] - Objective Vital Signs: Vital Signs Temperature 98.1 F 11/14/19 05:49 Pulse Rate 94 H 11/14/19 05:49 Respiratory Rate 18 11/14/19 05:49 Blood Pressure 109/66 11/14/19 05:49 O2 Sat by Pulse Oximetry (%) 98 11/14/19 05:49 Additional Findings/Remarks: Constitutional: Yes: No Distress, Obese Eyes: Yes: WNL, Conjunctiva Clear, EOM Intact HENT: Yes: WNL, Atraumatic, Normocephalic Neck: Yes: WNL, Supple, Trachea Midline Cardiovascular: Yes: WNL, Regular Rate and Rhythm Respiratory: Yes: WNL, Regular, CTA Bilaterally Gastrointestinal: Yes: WNL, Normal Bowel Sounds ...Rectal Exam: Yes: Deferred Renal/: Yes: Incontinence Breast(s): Yes: WNL Musculoskeletal: Yes: Muscle Weakness Extremities: Yes: Erythema (LLE with chronic venous stasis/cellulitic changes, scaling skin, LLE warm, swollen on foot and part of anterior thigh, bilateral knee replacement scars) Edema: Yes Edema: LLE: 2+, RLE: 2+ Peripheral Pulses WNL: No Peripheral Pulses: Left Radial: 2+, Right Radial: 2+, Left Doralis Pedis: 1+, Right Dorsalis Pedis: 1+, Left Femoral: 1+, Right Femoral: 1+ Integumentary: Yes: Rash (tender over region of well-demarcated warm erythema extending along the edge of pt pannis) Neurological: Yes: WNL, Alert, Oriented ...Motor Strength: LUE (genralized weakness), LLE, RUE, RLE Psychiatric: Yes: WNL Labs: CBC, BMP 11/14/19 05:30 11/14/19 05:30 INR, PTT INR 1.34 (0.83-1.09) H 11/13/19 15:00 Problem List - Problems (1) Spinal stenosis Assessment/Plan: takes tylenol/percocet at home PT request Code(s): M48.00 - SPINAL STENOSIS, SITE UNSPECIFIED (2) MRSA cellulitis Assessment/Plan: recent history of MRSA clearing with axtreonam and daptomycin Code(s): L03.90 - CELLULITIS, UNSPECIFIED; B95.62 - METHICILLIN RESIS STAPH INFCT CAUSING DISEASES CLASSD ELSWHR (3) COPD (chronic obstructive pulmonary disease) Assessment/Plan: O2 dependent at home supplemental O2 to mainatin SPO@ >88% c/w levabuterol nebs used on previous admission Code(s): J44.9 - CHRONIC OBSTRUCTIVE PULMONARY DISEASE, UNSPECIFIED (4) On home oxygen therapy Assessment/Plan: maintain SPO2 >88% Code(s): Z99.81 - DEPENDENCE ON SUPPLEMENTAL OXYGEN (5) Cellulitis Assessment/Plan: Dr Lee following c/w axtreonam linezolid added by ID wound care to LE Code(s): L03.90 - CELLULITIS, UNSPECIFIED Qualifiers: Site of cellulitis: trunk Site of cellulitis of trunk: abdominal wall Qualified Code(s): L03.311 - Cellulitis of abdominal wall (6) Afib Assessment/Plan: rate controlled c/w home diltiazem c/w apixiban Code(s): I48.91 - UNSPECIFIED ATRIAL FIBRILLATION (7) Diastolic CHF Assessment/Plan: c/w lasix Code(s): I50.30 - UNSPECIFIED DIASTOLIC (CONGESTIVE) HEART FAILURE Qualifiers: Heart failure chronicity: chronic Qualified Code(s): I50.32 - Chronic diastolic (congestive) heart failure (8) HLD (hyperlipidemia) Assessment/Plan: c/w atorvastatin Code(s): E78.5 - HYPERLIPIDEMIA, UNSPECIFIED (9) HTN (hypertension) Assessment/Plan: c/w diltiazem c/w metoprolol Code(s): I10 - ESSENTIAL (PRIMARY) HYPERTENSION (10) Lymphedema of both lower extremities Code(s): I89.0 - LYMPHEDEMA, NOT ELSEWHERE CLASSIFIED (11) Obesity Assessment/Plan: weight loss counseling PT request placed Code(s): E66.9 - OBESITY, UNSPECIFIED Qualifiers: Obesity type: with alveolar hypoventilation Obesity classification: adult class 3 (BMI >= 40) Serious obesity comorbidity presence: with serious comorbidity Body mass index: BMI 40.0-44.9 Qualified Code(s): E66.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 (12) Sjogrens syndrome Assessment/Plan: c/w plaquenil Code(s): M35.00 - SICCA SYNDROME, UNSPECIFIED (13) Venous stasis dermatitis Assessment/Plan: c/w aquophor -home use Code(s): I87.2 - VENOUS INSUFFICIENCY (CHRONIC) (PERIPHERAL) Qualifiers: Laterality: bilateral Qualified Code(s): I87.2 - Venous insufficiency ( chronic) (peripheral) (14) Prophylactic measure Assessment/Plan: FEN tolerating po monitor electrolytes low sodium diet DVT apixaban Dispo maintain as inpatient discharge planning full code Code(s): Z29.9 - ENCOUNTER FOR PROPHYLACTIC MEASURES, UNSPECIFIED (15) Chronic depression Assessment/Plan: on wellbutrin at home interaction with linezolid-will hold for now Code(s): F32.9 - MAJOR DEPRESSIVE DISORDER, SINGLE EPISODE, UNSPECIFIED Visit type - Emergency Visit Emergency Visit: Yes ED Registration Date: 11/13/19 Care time: The patient presented to the Emergency Department on the above date and was hospitalized for further evaluation of their emergent condition. - New Patient This patient is new to me today: No - Critical Care Critical Care patient: No - Discharge Referral Referred to [facility] Med P.C.: No
[2019-11-14] MEDS ORDERED: POTASSIUM CHLORIDE TABS 20 MEQ TABLET.ER (FP) PO ONE ×2 (09:15→09:42)
[2019-11-14] MEDS: CHOLECALCIFEROL (VIT D3) 1,000 UNIT (25 MCG) TABLET PO SCH (11:24)
[2019-11-14] MEDS: APIXABAN 5 MG TABLET PO SCH ×2 (11:24→22:06)
[2019-11-14] MEDS: HYDROXYCHLOROQUINE SO4 200 MG TABLET (FP) PO SCH (11:24)
[2019-11-14] MEDS: guaiFENesin 600 MG TABLET.ER (FP) PO SCH (11:24)
[2019-11-14] MEDS: METOPROLOL TARTRATE 50 MG TABLET (FP) PO SCH ×3 (11:24→22:16)
[2019-11-14] MEDS: LINEZOLID 600 MG TABLET (RESTRICTED TO ID) PO SCH ×2 (11:24→22:07)
[2019-11-14] MEDS: CYANOCOBALAMIN 1,000 MCG TABLET (FP) PO SCH (11:24)
[2019-11-14] MEDS: ASCORBIC ACID 500 MG TABLET (FP) PO SCH (11:24)
[2019-11-14] MEDS: MINERAL OIL/PET HY-PHL TOPICAL OINTMENT 454 GM JAR TP SCH ×2 (11:24→22:08)
[2019-11-14] MEDS: POLYETHYLENE GLYCOL 3350 119 GM BTL PO SCH (11:25)
--- NOTE | 2019-11-14 14:14 | EKG ---
Test Reason : Blood Pressure : / mmHG Vent. Rate : 113 BPM Atrial Rate : 163 BPM P-R Int : 000 ms QRS Dur : 088 ms QT Int : 338 ms P-R-T Axes : 000 058 007 degrees QTc Int : 463 ms ATRIAL FIBRILLATION WITH RAPID VENTRICULAR RESPONSE NONSPECIFIC ST AND T WAVE ABNORMALITY ABNORMAL ECG WHEN COMPARED WITH ECG OF 25-OCT-2019 19:39, NO SIGNIFICANT CHANGE WAS FOUND Confirmed by LINO GREWAL MD ([id number]) on 11/14/2019 2:14:27 PM Referred By: Confirmed By:LINO GREWAL MD
[2019-11-14] MEDS ORDERED: DEXTROSE 5%-WATER - 50 ML IVPB ONE (17:55)
--- NOTE | 2019-11-14 19:12 | PN ---
Progress Note (short form) - Note Progress Note: ID CONSULT DICTATED RECURRENT CELLULITIS/PANNICULITIS MULTIPLE ANTIBIOTIC ALLERGIES HX STEROID-RESPONSIVE DERMATITIS EMPIRIC ZYVOX/AZTREONAM
[2019-11-14] MEDS ORDERED: PT OWN MED DRAWER 7, Y5N ONE (21:02)
[2019-11-14] MEDS: ATORVASTATIN CA 40 MG TABLET (FP) PO SCH (22:06)
[2019-11-14] MEDS: FAMOTIDINE 40 MG/5 ML ORAL SUSPENSION PO SCH (22:07)
[2019-11-15] MEDS ORDERED: AZTREONAM 1 GM VIAL (RESTRICTED TO ID) ONE ×3 (01:45→17:14)
[2019-11-15] MEDS ORDERED: DEXTROSE 5%-WATER - 50 ML IVPB ONE ×3 (01:45→17:14)
[2019-11-15] MEDS: AZTREONAM 1 GM in DEXTROSE 5%-WATER - 50 ML IVPB SCH ×3 (02:06→17:20)
[2019-11-15] MEDS: GABAPENTIN 400 MG CAPSULE (FP) PO SCH ×3 (06:44→22:12)
[2019-11-15] MEDS: FUROSEMIDE 20 MG TABLET (FP) PO SCH ×2 (06:44→14:33)
[2019-11-15] MEDS: ACETAMINOPHEN 500 MG TABLET (FP) PO PRN ×2 (06:44→17:19)
--- NOTE | 2019-11-15 08:20 | PN ---
Progress Note, Physician Chief Complaint: Feels her left leg is improving.Tearful about being hospitalized and her family situation History of Present Illness: 74F PMH chronic venous stasis ulcers, COPD (on home oxygen), CHF, Atrial Fibrillation (on Eliquis), Diabetes Mellitus, HTN, Srojen's disease, spinal stenosis, arthritis, MRSA+ cellulitis presents from home with concern for evolving cellulitis noticed by visiting nurse this morning. Discharge home 10/27. Multiple admissions for recurrent cellulitis, hx of daptomycin / aztreonam clearance while admitted. Denies fevers, chills, nausea, vomiting, chest pain, SOB, recent skin breaks. Hx of DVT in RLE, reports this feels different, no heart racing, no SOB, no unilateral swelling aside from cellulitic regions. - Current Medication List Current Medications: Active Medications Acetaminophen (Tylenol -) 500 mg PO Q6H PRN PRN Reason: PAIN LEVEL 1-5 Last Admin: 11/15/19 06:44 Dose: 500 mg Apixaban (Eliquis -) 5 mg PO BID [facility] Last Admin: 11/14/19 22:06 Dose: 5 mg Ascorbic Acid (Vitamin C -) 500 mg PO DAILY [facility] Last Admin: 11/14/19 11:24 Dose: 500 mg Atorvastatin Calcium (Lipitor -) 40 mg PO HS [facility] Last Admin: 11/14/19 22:06 Dose: 40 mg Cholecalciferol (Vitamin D3 -) 1,000 unit PO DAILY [facility] Last Admin: 11/14/19 11:24 Dose: 1,000 unit Cyanocobalamin (Vitamin B12 -) 1,000 mcg PO DAILY [facility] Last Admin: 11/14/19 11:24 Dose: 1,000 mcg Diltiazem HCl (Cardizem Cd -) 360 mg PO DAILY [facility] Last Admin: 11/14/19 11:24 Dose: 360 mg Emollient Ointment (Aquaphor -) 1 applic TP BID [facility] Last Admin: 11/14/19 22:08 Dose: 1 applic Famotidine (Pepcid) 20 mg PO DAILY@2200 [facility] Last Admin: 11/14/19 22:07 Dose: 20 mg Furosemide (Lasix -) 60 mg PO BIDLASIX [facility] Last Admin: 11/15/19 06:44 Dose: 60 mg Gabapentin (Neurontin -) 400 mg PO TID [facility] Last Admin: 12/22/19 06:44 Dose: 400 mg Guaifenesin (Mucinex -) 600 mg PO DAILY [facility] Last Admin: 11/14/19 11:24 Dose: 600 mg Hydroxychloroquine Sulfate (Plaquenil -) 200 mg PO DAILY [facility] Last Admin: 11/14/19 11:24 Dose: Not Given Aztreonam 1 gm/ Dextrose 50 mls @ 100 mls/hr IVPB Q8H-IV [facility]; Protocol Last Admin: 11/15/19 02:06 Dose: 100 mls/hr Levalbuterol HCl (Xopenex) 0.31 mg IH Q8H PRN PRN Reason: WHEEZING Levalbuterol HCl (Xopenex) 0.31 mg IH Q8H PRN PRN Reason: WHEEZING Linezolid (Zyvox (Restricted To Id) -) 600 mg PO BID [facility] Last Admin: 11/14/19 22:07 Dose: 600 mg Metoprolol Tartrate (Lopressor -) 50 mg PO BID [facility] Last Admin: 11/14/19 22:16 Dose: Not Given Nystatin (Nystop Powder -) 1 applic TP TID PRN PRN Reason: DRY SKIN Polyethylene Glycol (Miralax (For Daily Use) -) 17 gm PO DAILY [facility] Last Admin: 11/14/19 11:25 Dose: Not Given - Objective Vital Signs: Vital Signs Temperature 97.8 F 11/15/19 06:00 Pulse Rate 80 11/15/19 06:00 Respiratory Rate 20 11/15/19 06:00 Blood Pressure 118/54 L 11/15/19 06:00 O2 Sat by Pulse Oximetry (%) 97 11/14/19 16:00 Additional Findings/Remarks: Constitutional: Yes: No Distress, Obese Eyes: Yes: WNL, Conjunctiva Clear, EOM Intact HENT: Yes: WNL, Atraumatic, Normocephalic Neck: Yes: WNL, Supple, Trachea Midline Cardiovascular: Yes: WNL, Regular Rate and Rhythm Respiratory: Yes: WNL, Regular, CTA Bilaterally Gastrointestinal: Yes: WNL, Normal Bowel Sounds ...Rectal Exam: Yes: Deferred Renal/: Yes: Incontinence Breast(s): Yes: WNL Musculoskeletal: Yes: Muscle Weakness Extremities: Yes: Erythema (LLE with chronic venous stasis/cellulitic changes, scaling skin, LLE warm, swollen on foot and part of anterior thigh, bilateral knee replacement scars) Edema: Yes Edema: LLE: 2+, RLE: 2+ Peripheral Pulses WNL: No Peripheral Pulses: Left Radial: 2+, Right Radial: 2+, Left Doralis Pedis: 1+, Right Dorsalis Pedis: 1+, Left Femoral: 1+, Right Femoral: 1+ Integumentary: Yes: Rash (tender over region of well-demarcated warm erythema extending along the edge of pt pannis) Neurological: Yes: WNL, Alert, Oriented ...Motor Strength: LUE (genralized weakness), LLE, RUE, RLE Psychiatric: Yes: WNL Labs: CBC, BMP 11/14/19 05:30 11/14/19 05:30 INR, PTT INR 1.34 (0.83-1.09) H 11/13/19 15:00 Problem List - Problems (1) Spinal stenosis Assessment/Plan: takes tylenol/percocet at home PT following Code(s): M48.00 - SPINAL STENOSIS, SITE UNSPECIFIED (2) MRSA cellulitis Assessment/Plan: recent history of MRSA clearing with axtreonam and daptomycin Dr Lee following on aztreonam and linezolid Code(s): L03.90 - CELLULITIS, UNSPECIFIED; B95.62 - METHICILLIN RESIS STAPH INFCT CAUSING DISEASES CLASSD ELSWHR (3) COPD (chronic obstructive pulmonary disease) Assessment/Plan: O2 dependent at home supplemental O2 to mainatin SPO@ >88% c/w levabuterol nebs used on previous admission Code(s): J44.9 - CHRONIC OBSTRUCTIVE PULMONARY DISEASE, UNSPECIFIED (4) On home oxygen therapy Assessment/Plan: maintain SPO2 >88% Code(s): Z99.81 - DEPENDENCE ON SUPPLEMENTAL OXYGEN (5) Cellulitis Assessment/Plan: Dr Lee following c/w axtreonam & linezolid wound care to LE Code(s): L03.90 - CELLULITIS, UNSPECIFIED Qualifiers: Site of cellulitis: trunk Site of cellulitis of trunk: abdominal wall Qualified Code(s): L03.311 - Cellulitis of abdominal wall (6) Afib Assessment/Plan: rate controlled c/w home diltiazem c/w apixiban Code(s): I48.91 - UNSPECIFIED ATRIAL FIBRILLATION (7) Diastolic CHF Assessment/Plan: c/w lasix Code(s): I50.30 - UNSPECIFIED DIASTOLIC (CONGESTIVE) HEART FAILURE Qualifiers: Heart failure chronicity: chronic Qualified Code(s): I50.32 - Chronic diastolic (congestive) heart failure (8) HLD (hyperlipidemia) Assessment/Plan: c/w atorvastatin Code(s): E78.5 - HYPERLIPIDEMIA, UNSPECIFIED (9) HTN (hypertension) Assessment/Plan: c/w diltiazem c/w metoprolol Code(s): I10 - ESSENTIAL (PRIMARY) HYPERTENSION (10) Lymphedema of both lower extremities Code(s): I89.0 - LYMPHEDEMA, NOT ELSEWHERE CLASSIFIED (11) Obesity Assessment/Plan: weight loss counseling PT request placed Code(s): E66.9 - OBESITY, UNSPECIFIED Qualifiers: Obesity type: with alveolar hypoventilation Obesity classification: adult class 3 (BMI >= 40) Serious obesity comorbidity presence: with serious comorbidity Body mass index: BMI 40.0-44.9 Qualified Code(s): E66.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 (12) Sjogrens syndrome Assessment/Plan: c/w plaquenil Code(s): M35.00 - SICCA SYNDROME, UNSPECIFIED (13) Venous stasis dermatitis Assessment/Plan: c/w aquophor -home use Code(s): I87.2 - VENOUS INSUFFICIENCY (CHRONIC) (PERIPHERAL) Qualifiers: Laterality: bilateral Qualified Code(s): I87.2 - Venous insufficiency ( chronic) (peripheral) (14) Prophylactic measure Assessment/Plan: FEN tolerating po monitor electrolytes low sodium diet DVT apixaban Dispo maintain as inpatient discharge planning full code Code(s): Z29.9 - ENCOUNTER FOR PROPHYLACTIC MEASURES, UNSPECIFIED (15) Chronic depression Assessment/Plan: on wellbutrin at home interaction with linezolid-will hold for now Code(s): F32.9 - MAJOR DEPRESSIVE DISORDER, SINGLE EPISODE, UNSPECIFIED (16) [place]-forme dermatosis Assessment/Plan: Was seen by dermatology Dr. Lancaster in the past , who did not lower extremity findings were contributory to her sepsis on recent presentation. 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 Code(s): L98.8 - OT DISRD OF THE SKIN AND SUBCUTANEOUS TISSUE Visit type - Emergency Visit Emergency Visit: Yes ED Registration Date: 11/13/19 Care time: The patient presented to the Emergency Department on the above date and was hospitalized for further evaluation of their emergent condition. - New Patient This patient is new to me today: No - Critical Care Critical Care patient: No - Discharge Referral Referred to [facility] Med P.C.: No
[2019-11-15] MEDS ORDERED: PT OWN MED DRAWER 7, Y5N ONE ×2 (09:20→21:23)
[2019-11-15] MEDS: CHOLECALCIFEROL (VIT D3) 1,000 UNIT (25 MCG) TABLET PO SCH (09:45)
[2019-11-15] MEDS: HYDROXYCHLOROQUINE SO4 200 MG TABLET (FP) PO SCH (09:45)
[2019-11-15] MEDS: METOPROLOL TARTRATE 50 MG TABLET (FP) PO SCH ×2 (09:45→22:12)
[2019-11-15] MEDS: APIXABAN 5 MG TABLET PO SCH ×2 (09:45→22:12)
[2019-11-15] MEDS: guaiFENesin 600 MG TABLET.ER (FP) PO SCH (09:45)
[2019-11-15] MEDS: ASCORBIC ACID 500 MG TABLET (FP) PO SCH (09:45)
[2019-11-15] MEDS: LINEZOLID 600 MG TABLET (RESTRICTED TO ID) PO SCH ×2 (09:46→22:12)
[2019-11-15] MEDS: MINERAL OIL/PET HY-PHL TOPICAL OINTMENT 454 GM JAR TP SCH (09:47)
[2019-11-15] MEDS: POLYETHYLENE GLYCOL 3350 119 GM BTL PO SCH (09:47)
[2019-11-15] MEDS: CYANOCOBALAMIN 1,000 MCG TABLET (FP) PO SCH (09:51)
--- NOTE | 2019-11-15 14:16 | PN ---
Progress Note, Physician History of Present Illness: REPORTS IMPROVEMENT IN L LE ERYTHEMA NO C/O PAIN AFEBRILE WBC IMPROVED WNL BC (-) - Current Medication List Current Medications: Active Medications Acetaminophen (Tylenol -) 500 mg PO Q6H PRN PRN Reason: PAIN LEVEL 1-5 Last Admin: 11/15/19 06:44 Dose: 500 mg Apixaban (Eliquis -) 5 mg PO BID [facility] Last Admin: 11/15/19 09:45 Dose: 5 mg Ascorbic Acid (Vitamin C -) 500 mg PO DAILY [facility] Last Admin: 11/15/19 09:45 Dose: 500 mg Atorvastatin Calcium (Lipitor -) 40 mg PO HS [facility] Last Admin: 11/14/19 22:06 Dose: 40 mg Cholecalciferol (Vitamin D3 -) 1,000 unit PO DAILY [facility] Last Admin: 11/15/19 09:45 Dose: 1,000 unit Cyanocobalamin (Vitamin B12 -) 1,000 mcg PO DAILY [facility] Last Admin: 11/15/19 09:51 Dose: 1,000 mcg Diltiazem HCl (Cardizem Cd -) 360 mg PO DAILY [facility] Last Admin: 11/15/19 09:50 Dose: 360 mg Emollient Ointment (Aquaphor -) 1 applic TP BID [facility] Last Admin: 11/15/19 09:47 Dose: 1 applic Famotidine (Pepcid) 20 mg PO DAILY@2200 [facility] Last Admin: 11/14/19 22:07 Dose: 20 mg Furosemide (Lasix -) 60 mg PO BIDLASIX [facility] Last Admin: 11/15/19 06:44 Dose: 60 mg Gabapentin (Neurontin -) 400 mg PO TID [facility] Last Admin: 11/15/19 06:44 Dose: 400 mg Guaifenesin (Mucinex -) 600 mg PO DAILY [facility] Last Admin: 11/15/19 09:45 Dose: 600 mg Hydroxychloroquine Sulfate (Plaquenil -) 200 mg PO DAILY [facility] Last Admin: 11/15/19 09:45 Dose: 200 mg Aztreonam 1 gm/ Dextrose 50 mls @ 100 mls/hr IVPB Q8H-IV [facility]; Protocol Last Admin: 11/15/19 09:43 Dose: 100 mls/hr Levalbuterol HCl (Xopenex) 0.31 mg IH Q8H PRN PRN Reason: WHEEZING Levalbuterol HCl (Xopenex) 0.31 mg IH Q8H PRN PRN Reason: WHEEZING Linezolid (Zyvox (Restricted To Id) -) 600 mg PO BID [facility] Last Admin: 11/15/19 09:46 Dose: 600 mg Metoprolol Tartrate (Lopressor -) 50 mg PO BID [facility] Last Admin: 11/15/19 09:45 Dose: 50 mg Nystatin (Nystop Powder -) 1 applic TP TID PRN PRN Reason: DRY SKIN Polyethylene Glycol (Miralax (For Daily Use) -) 17 gm PO DAILY [facility] Last Admin: 11/15/19 09:47 Dose: 17 gm - Objective Vital Signs: Vital Signs Temperature 97.8 F 11/15/19 06:00 Pulse Rate 80 11/15/19 06:00 Respiratory Rate 20 11/15/19 06:00 Blood Pressure 118/54 L 11/15/19 06:00 O2 Sat by Pulse Oximetry (%) 98 11/15/19 09:00 Constitutional: Yes: No Distress, Obese Eyes: Yes: Conjunctiva Clear Cardiovascular: Yes: Regular Rate and Rhythm, S1, S2 Respiratory: Yes: CTA Bilaterally Gastrointestinal: Yes: Normal Bowel Sounds, Soft, Abdomen, Obese Edema: Yes Edema: LLE: 1+, RLE: 1+ Integumentary: Yes: Other (DECREASED ERYTHEMA L LE; LOWER ABDOMEN STILL RED R>L) Labs: CBC, BMP 11/14/19 05:30 11/14/19 05:30 INR, PTT INR 1.34 (0.83-1.09) H 11/13/19 15:00 Assessment/Plan RECURRENT CELLULITIS v. STEROID RESPONSIVE DERMATITIS MULTIPLE ANTIBIOTIC ALLERGIES CONTINUE EMPIRIC ZYVOX/ AZTREONAM
[2019-11-15] MEDS: ATORVASTATIN CA 40 MG TABLET (FP) PO SCH (22:12)
[2019-11-15] MEDS: FAMOTIDINE 40 MG/5 ML ORAL SUSPENSION PO SCH (22:13)
[2019-11-16] MEDS ORDERED: PT OWN MED DRAWER 7, Y5N ONE ×3 (02:33→21:02)
[2019-11-16] MEDS: ACETAMINOPHEN 500 MG TABLET (FP) PO PRN (02:43)
[2019-11-16] MEDS: AZTREONAM 1 GM in DEXTROSE 5%-WATER - 50 ML IVPB SCH ×3 (02:46→18:01)
[2019-11-16] MEDS: MINERAL OIL/PET HY-PHL TOPICAL OINTMENT 454 GM JAR TP SCH ×3 (05:26→21:10)
[2019-11-16] MEDS: FUROSEMIDE 20 MG TABLET (FP) PO SCH ×2 (07:08→15:34)
[2019-11-16] MEDS: GABAPENTIN 400 MG CAPSULE (FP) PO SCH ×3 (07:09→21:11)
[2019-11-16] MEDS ORDERED: DEXTROSE 5%-WATER - 50 ML IVPB ONE ×2 (09:55→17:45)
[2019-11-16] MEDS ORDERED: AZTREONAM 1 GM VIAL (RESTRICTED TO ID) ONE ×2 (09:55→17:45)
[2019-11-16] MEDS: METOPROLOL TARTRATE 50 MG TABLET (FP) PO SCH ×2 (10:07→21:10)
[2019-11-16] MEDS: APIXABAN 5 MG TABLET PO SCH ×2 (10:07→21:10)
[2019-11-16] MEDS: ASCORBIC ACID 500 MG TABLET (FP) PO SCH (10:07)
[2019-11-16] MEDS: CYANOCOBALAMIN 1,000 MCG TABLET (FP) PO SCH (10:07)
[2019-11-16] MEDS: HYDROXYCHLOROQUINE SO4 200 MG TABLET (FP) PO SCH (10:07)
[2019-11-16] MEDS: CHOLECALCIFEROL (VIT D3) 1,000 UNIT (25 MCG) TABLET PO SCH (10:07)
[2019-11-16] MEDS: LINEZOLID 600 MG TABLET (RESTRICTED TO ID) PO SCH ×2 (10:08→22:29)
[2019-11-16] MEDS: guaiFENesin 600 MG TABLET.ER (FP) PO SCH (10:09)
[2019-11-16] MEDS: NYSTATIN POWDER 100,000 UNITS/GM - 15 GM TOPICAL POWDER TP PRN (10:09)
[2019-11-16] MEDS: POLYETHYLENE GLYCOL 3350 119 GM BTL PO SCH (10:10)
--- NOTE | 2019-11-16 12:25 | PN ---
Physical Exam: SUBJECTIVE: Patient seen and examined at the bedside. has lower back pain. OBJECTIVE: Patient is a 74F PMH chronic venous stasis ulcers, COPD (on home oxygen), CHF, Atrial Fibrillation (on Eliquis), Diabetes Mellitus, HTN, Srojen's disease, spinal stenosis, arthritis, MRSA+ cellulitis presents from home with concern for evolving cellulitis noticed by visiting nurse. Patient with multiple admissions for recurrent cellulitis. Vital Signs Period Temp Pulse Resp BP Sys/William Pulse Ox Last 24 Hr 97.7 F-98.4 F 53-62 15-20 104-136/55-70 GENERAL: The patient is awake, alert, and fully oriented, in no acute distress. HEAD: Normal with no signs of trauma. EYES: PERRL, extraocular movements intact, sclera anicteric, conjunctiva clear. No ptosis. ENT: Ears normal, nares patent, oropharynx clear without exudates, moist mucous membranes. NECK: Trachea midline, full range of motion, supple. LUNGS: Breath sounds equal, clear to auscultation bilaterally, HEART: Regular rate and rhythm, S1, S2 without murmur, rub or gallop. ABDOMEN: Soft, nontender, nondistended, normoactive bowel sounds EXTREMITIES:Bilateral lower extremity cellulitis left lower extremity greater than right NEUROLOGICAL: Normal speech, gait not observed. PSYCH: Normal mood, normal affect. SKIN: Warm, dry, normal turgor, no rashes or lesions noted Active Medications Generic Name Dose Route Start Last Admin Trade Name Freq PRN Reason Stop Dose Admin Acetaminophen 500 mg 11/13/19 18:28 11/16/19 02:43 Tylenol - PO 500 mg Q6H PRN Administration PAIN LEVEL 1-5 Apixaban 5 mg 11/13/19 22:00 11/16/19 10:07 Eliquis - PO 5 mg BID BELL Administration Ascorbic Acid 500 mg 11/14/19 10:00 11/16/19 10:07 Vitamin C - PO 500 mg DAILY BELL Administration Atorvastatin Calcium 40 mg 11/13/19 22:00 11/15/19 22:12 Lipitor - PO 40 mg HS BELL Administration Cholecalciferol 1,000 unit 11/14/19 10:00 11/16/19 10:07 Vitamin D3 - PO 1,000 unit DAILY BELL Administration Cyanocobalamin 1,000 mcg 11/14/19 10:00 11/16/19 10:07 Vitamin B12 - PO 1,000 mcg DAILY BELL Administration Diltiazem HCl 360 mg 11/14/19 10:00 11/16/19 10:07 Cardizem Cd - PO 360 mg DAILY BELL Administration Emollient Ointment 1 applic 11/13/19 22:00 11/16/19 10:08 Aquaphor - TP 1 applic BID BELL Administration Famotidine 20 mg 11/13/19 22:00 11/15/19 22:13 Pepcid PO 20 mg DAILY@2200 BELL Administration Furosemide 60 mg 11/14/19 06:00 11/16/19 07:08 Lasix - PO 60 mg BIDLASIX BELL Administration Gabapentin 400 mg 11/13/19 19:04 11/16/19 07:09 Neurontin - PO 400 mg TID BELL Administration Guaifenesin 600 mg 11/14/19 10:00 11/16/19 10:09 Mucinex - PO 600 mg DAILY BELL Administration Hydroxychloroquine Sulfate 200 mg 11/14/19 10:00 11/16/19 10:07 Plaquenil - PO 200 mg DAILY BELL Administration Aztreonam 1 gm/ Dextrose 50 mls @ 100 mls/hr 11/13/19 18:15 11/16/19 10:06 IVPB 100 mls/hr Q8H-IV BELL Administration Protocol Levalbuterol HCl 0.31 mg 11/13/19 18:28 Xopenex IH Q8H PRN WHEEZING Levalbuterol HCl 0.31 mg 11/13/19 23:31 Xopenex IH Q8H PRN WHEEZING Linezolid 600 mg 11/13/19 22:00 11/16/19 10:08 Zyvox (Restricted To Id) - PO 600 mg BID BELL Administration Metoprolol Tartrate 50 mg 11/13/19 22:00 11/16/19 10:07 Lopressor - PO 50 mg BID BELL Administration Nystatin 1 applic 11/13/19 18:28 11/16/19 10:09 Nystop Powder - TP 1 applic TID PRN Administration DRY SKIN Polyethylene Glycol 17 gm 11/14/19 10:00 11/16/19 10:10 Miralax (For Daily Use) - PO 17 gm DAILY BELL Administration ASSESSMENT/PLAN: Problem List - Problems (1) Cellulitis Assessment/Plan: Dr Lee following c/w axtreonam & linezolid wound care to LE Code(s): L03.90 - CELLULITIS, UNSPECIFIED Qualifiers: Site of cellulitis: trunk Site of cellulitis of trunk: abdominal wall Qualified Code(s): L03.311 - Cellulitis of abdominal wall (2) MRSA cellulitis Assessment/Plan: recent history of MRSA clearing with axtreonam and daptomycin Dr Lee following on aztreonam and linezolid Code(s): L03.90 - CELLULITIS, UNSPECIFIED; B95.62 - METHICILLIN RESIS STAPH INFCT CAUSING DISEASES CLASSD ELSWHR (3) COPD (chronic obstructive pulmonary disease) Assessment/Plan: no wheezing on exam, tolerating room air continue home inhalers Code(s): J44.9 - CHRONIC OBSTRUCTIVE PULMONARY DISEASE, UNSPECIFIED (4) Chronic depression Assessment/Plan: continue home meds supportive care on wellbutrin at home with interaction with linezolid-holding for now Code(s): F32.9 - MAJOR DEPRESSIVE DISORDER, SINGLE EPISODE, UNSPECIFIED (5) On home oxygen therapy Assessment/Plan: tolerating room air, hx of copd stable oxygen saturations Code(s): Z99.81 - DEPENDENCE ON SUPPLEMENTAL OXYGEN (6) Spinal stenosis Assessment/Plan: start on oxycodone lidoderm patches for better pain control Code(s): M48.00 - SPINAL STENOSIS, SITE UNSPECIFIED (7) 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 Lancaster in the past, and felt that [place] forme dermatosis was from poor hygein/crusting and elephantiasis from chronic LE swelling/lymphedema. Code(s): L98.8 - OTH DISRD OF THE SKIN AND SUBCUTANEOUS TISSUE (8) Atrial fibrillation Assessment/Plan: rate controlled c/w home diltiazem c/w apixiban Code(s): I48.91 - UNSPECIFIED ATRIAL FIBRILLATION Qualifiers: Atrial fibrillation type: permanent Qualified Code(s): I48.21 - Permanent atrial fibrillation (9) Diastolic CHF Assessment/Plan: on lasix bid check electrolytes in a.m. Code(s): I50.30 - UNSPECIFIED DIASTOLIC (CONGESTIVE) HEART FAILURE Qualifiers: Heart failure chronicity: chronic Qualified Code(s): I50.32 - Chronic diastolic (congestive) heart failure (10) Sjogrens syndrome Code(s): M35.00 - SICCA SYNDROME, UNSPECIFIED (11) Prophylactic measure Assessment/Plan: FEN tolerating po monitor electrolytes low sodium diet DVT apixaban Dispo maintain as inpatient discharge planning full code Code(s): Z29.9 - ENCOUNTER FOR PROPHYLACTIC MEASURES, UNSPECIFIED Visit type - Emergency Visit Emergency Visit: Yes ED Registration Date: 11/13/19 Care time: The patient presented to the Emergency Department on the above date and was hospitalized for further evaluation of their emergent condition. - New Patient This patient is new to me today: Yes Date on this admission: 11/16/19 - Critical Care Critical Care patient: No - Discharge Referral Referred to [facility] Med P.C.: No
[2019-11-16] MEDS: LIDOCAINE 5% TOPICAL PATCH TP SCH (15:33)
[2019-11-16] MEDS: LIDOCAINE PATCH REMOVAL MC SCH (21:10)
[2019-11-16] MEDS: ATORVASTATIN CA 40 MG TABLET (FP) PO SCH (21:10)
[2019-11-16] MEDS: FAMOTIDINE 40 MG/5 ML ORAL SUSPENSION PO SCH (22:29)
[2019-11-17] MEDS ORDERED: AZTREONAM 1 GM VIAL (RESTRICTED TO ID) ONE ×3 (01:55→16:48)
[2019-11-17] MEDS ORDERED: DEXTROSE 5%-WATER - 50 ML IVPB ONE ×3 (01:55→16:48)
[2019-11-17] MEDS: AZTREONAM 1 GM in DEXTROSE 5%-WATER - 50 ML IVPB SCH ×3 (01:57→17:08)
[2019-11-17] MEDS: GABAPENTIN 400 MG CAPSULE (FP) PO SCH ×3 (06:29→21:33)
[2019-11-17] MEDS: FUROSEMIDE 20 MG TABLET (FP) PO SCH ×2 (06:29→14:22)
[2019-11-17] MEDS: ACETAMINOPHEN 500 MG TABLET (FP) PO PRN ×2 (06:59→23:16)
[2019-11-17 10:00] LABS: BASO % 0.3 % (0-2.0); EOS % 6.8 % (0-4.5); HEMATOCRIT 40.5 % (32.4-45.2); HEMOGLOBIN 12.6 GM/dL (10.7-15.3); LYMPH % 18.2 % (8-40); MCH 24.7 pg (25.7-33.7); MEAN CELL VOLUME 79.7 fl (80-96); MEAN PLT VOLUME 7.9 fl (7.5-11.1); NEUT % 65.7 % (42.8-82.8); PLATELET COUNT 208 K/MM3 (134-434); RBC 5.08 M/mm3 (3.60-5.2); WHITE BLOOD COUNT 6.5 K/mm3 (4.0-10.0)
[2019-11-17] MEDS: HYDROXYCHLOROQUINE SO4 200 MG TABLET (FP) PO SCH (10:05)
[2019-11-17] MEDS: MINERAL OIL/PET HY-PHL TOPICAL OINTMENT 454 GM JAR TP SCH ×2 (10:05→21:33)
[2019-11-17] MEDS: guaiFENesin 600 MG TABLET.ER (FP) PO SCH (10:05)
[2019-11-17] MEDS: CYANOCOBALAMIN 1,000 MCG TABLET (FP) PO SCH (10:05)
[2019-11-17] MEDS: ASCORBIC ACID 500 MG TABLET (FP) PO SCH (10:05)
[2019-11-17] MEDS: APIXABAN 5 MG TABLET PO SCH ×2 (10:05→21:33)
[2019-11-17] MEDS: METOPROLOL TARTRATE 50 MG TABLET (FP) PO SCH ×2 (10:05→21:33)
[2019-11-17] MEDS: CHOLECALCIFEROL (VIT D3) 1,000 UNIT (25 MCG) TABLET PO SCH (10:05)
[2019-11-17] MEDS: LIDOCAINE 5% TOPICAL PATCH TP SCH (10:07)
[2019-11-17] MEDS: LINEZOLID 600 MG TABLET (RESTRICTED TO ID) PO SCH ×2 (10:08→21:33)
[2019-11-17] MEDS: POLYETHYLENE GLYCOL 3350 119 GM BTL PO SCH (10:08)
[2019-11-17] MEDS ORDERED: PT OWN MED DRAWER 7, Y5N ONE ×3 (10:16→21:21)
[2019-11-17 10:37] LABS: ALBUMIN 2.6 g/dl (3.4-5.0); BILIRUBIN,TOTAL 0.4 mg/dL (0.2-1); BLOOD UREA NITROGEN 17.8 mg/dL (7-18); CALCIUM 8.2 mg/dL (8.5-10.1); CREATININE 0.6 mg/dL (0.55-1.3); MAGNESIUM 1.8 mg/dL (1.8-2.4); POTASSIUM 3.7 mmol/L (3.5-5.1); TOT PROT 5.7 g/dl (6.4-8.2)
--- NOTE | 2019-11-17 13:22 | PN ---
Physical Exam: SUBJECTIVE: Patient seen and examined at the bedside. denies pain or shortness of breath. OBJECTIVE: Patient is a 74F PMH chronic venous stasis ulcers, COPD (on home oxygen), CHF, Atrial Fibrillation (on Eliquis), Diabetes Mellitus, HTN, Srojen's disease, spinal stenosis, arthritis, MRSA+ cellulitis presents from home with concern for evolving cellulitis noticed by visiting nurse. Patient with multiple admissions for recurrent cellulitis. Vital Signs Period Temp Pulse Resp BP Sys/William Pulse Ox Last 24 Hr 97.6 F-99.3 F 53-78 18-20 114-132/50-62 96 GENERAL: The patient is awake, alert, and fully oriented, in no acute distress. HEAD: Normal with no signs of trauma. EYES: PERRL, extraocular movements intact, sclera anicteric, conjunctiva clear. No ptosis. ENT: Ears normal, nares patent, oropharynx clear without exudates, moist mucous membranes. NECK: Trachea midline, full range of motion, supple. LUNGS: mild wheezing of upper lobes. stable oxygen saturations. HEART: Regular rate and rhythm, S1, S2 without murmur, rub or gallop. ABDOMEN: Soft, nontender, nondistended, normoactive bowel sounds EXTREMITIES:Bilateral lower extremity cellulitis left lower extremity greater than right NEUROLOGICAL: Normal speech, gait not observed. PSYCH: Normal mood, normal affect. SKIN: hyperpigmentation of left leg below knee to foot, scattered redness/ raised that covers the left knee. right leg with dry scaly skin and discoloration. raised red rash across lower abdomen. Laboratory Results - last 24 hr 11/17/19 11/17/19 09:35 09:35 WBC 6.5 RBC 5.08 Hgb 12.6 Hct 40.5 MCV 79.7 L MCH 24.7 L MCHC 31.0 L RDW 16.0 H Plt Count 208 D MPV 7.9 D Absolute Neuts (auto) 4.3 Neutrophils % 65.7 Lymphocytes % 18.2 Monocytes % 9.0 Eosinophils % 6.8 H D Basophils % 0.3 Nucleated RBC % 0 Sodium 138 Potassium 3.7 Chloride 92 L Carbon Dioxide 41 H Anion Gap 4 L BUN 17.8 Creatinine 0.6 Est GFR (CKD-EPI)AfAm 105.54 Est GFR (CKD-EPI)NonAf 91.06 Random Glucose 130 H Calcium 8.2 L Magnesium 1.8 Total Bilirubin 0.4 AST 12 L ALT 20 Alkaline Phosphatase 109 Total Protein 5.7 L Albumin 2.6 L Active Medications Generic Name Dose Route Start Last Admin Trade Name Freq PRN Reason Stop Dose Admin Acetaminophen 500 mg 11/13/19 18:28 11/17/19 06:59 Tylenol - PO 500 mg Q6H PRN Administration PAIN LEVEL 1-5 Apixaban 5 mg 11/13/19 22:00 11/17/19 10:05 Eliquis - PO 5 mg BID BELL Administration Ascorbic Acid 500 mg 11/14/19 10:00 11/17/19 10:05 Vitamin C - PO 500 mg DAILY BELL Administration Atorvastatin Calcium 40 mg 11/13/19 22:00 11/16/19 21:10 Lipitor - PO 40 mg HS BELL Administration Cholecalciferol 1,000 unit 11/14/19 10:00 11/17/19 10:05 Vitamin D3 - PO 1,000 unit DAILY BELL Administration Cyanocobalamin 1,000 mcg 11/14/19 10:00 11/17/19 10:05 Vitamin B12 - PO 1,000 mcg DAILY BELL Administration Diltiazem HCl 360 mg 11/14/19 10:00 11/17/19 10:04 Cardizem Cd - PO 360 mg DAILY BELL Administration Emollient Ointment 1 applic 11/13/19 22:00 11/17/19 10:05 Aquaphor - TP 1 applic BID BELL Administration Famotidine 20 mg 11/13/19 22:00 11/16/19 22:29 Pepcid PO 20 mg DAILY@2200 BELL Administration Furosemide 60 mg 11/14/19 06:00 11/17/19 06:29 Lasix - PO 60 mg BIDLASIX BELL Administration Gabapentin 400 mg 11/13/19 19:04 11/17/19 06:29 Neurontin - PO 400 mg TID BELL Administration Guaifenesin 600 mg 11/14/19 10:00 11/17/19 10:05 Mucinex - PO 600 mg DAILY BELL Administration Hydroxychloroquine Sulfate 200 mg 11/14/19 10:00 11/17/19 10:05 Plaquenil - PO 200 mg DAILY BELL Administration Aztreonam 1 gm/ Dextrose 50 mls @ 100 mls/hr 11/13/19 18:15 11/17/19 11:56 IVPB 100 mls/hr Q8H-IV BELL Administration Protocol Levalbuterol HCl 0.31 mg 11/13/19 18:28 Xopenex IH Q8H PRN WHEEZING Levalbuterol HCl 0.31 mg 11/13/19 23:31 Xopenex IH Q8H PRN WHEEZING Lidocaine 1 patch 11/16/19 12:30 11/17/19 10:07 Lidoderm Patch - TP 1 patch DAILY BELL Administration Linezolid 600 mg 11/13/19 22:00 11/17/19 10:08 Zyvox (Restricted To Id) - PO 600 mg BID BELL Administration Metoprolol Tartrate 50 mg 11/13/19 22:00 11/17/19 10:05 Lopressor - PO 50 mg BID BELL Administration Miscellaneous 1 each 11/16/19 22:00 11/16/19 21:10 Lidoderm Patch Removal MC 1 each DAILY@2200 BELL Administration Nystatin 1 applic 11/13/19 18:28 11/16/19 10:09 Nystop Powder - TP 1 applic TID PRN Administration DRY SKIN Oxycodone HCl 5 mg 11/16/19 12:25 Roxicodone - PO Q6H PRN PAIN LEVEL 7 - 10 Polyethylene Glycol 17 gm 11/14/19 10:00 11/17/19 10:08 Miralax (For Daily Use) - PO 17 gm DAILY BELL Administration ASSESSMENT/PLAN: Problem List - Problems (1) Cellulitis Assessment/Plan: Dr Lee following for recurrent bilateral lower ext cellulitis c/w axtreonam & linezolid. wound care to LE with dressings of right leg elevated legs while in bed Code(s): L03.90 - CELLULITIS, UNSPECIFIED Qualifiers: Site of cellulitis: trunk Site of cellulitis of trunk: abdominal wall Qualified Code(s): L03.311 - Cellulitis of abdominal wall (2) MRSA cellulitis Assessment/Plan: recent history of MRSA clearing with axtreonam and daptomycin Dr Lee following on aztreonam and linezolid maintain contact precautions Code(s): L03.90 - CELLULITIS, UNSPECIFIED; B95.62 - METHICILLIN RESIS STAPH INFCT CAUSING DISEASES CLASSD ELSWHR (3) COPD (chronic obstructive pulmonary disease) Assessment/Plan: mild wheezing on exam, not in respiratory distress continue home inhalers on xopenex Code(s): J44.9 - CHRONIC OBSTRUCTIVE PULMONARY DISEASE, UNSPECIFIED (4) Chronic depression Assessment/Plan: continue home meds supportive care on wellbutrin at home with interaction with linezolid-holding for now Code(s): F32.9 - MAJOR DEPRESSIVE DISORDER, SINGLE EPISODE, UNSPECIFIED (5) On home oxygen therapy Assessment/Plan: tolerating room air, and prn oxygen @ 2 liters. home oxygen dependent stable oxygen saturations Code(s): Z99.81 - DEPENDENCE ON SUPPLEMENTAL OXYGEN (6) Spinal stenosis Assessment/Plan: start on oxycodone lidoderm patches for better pain control Code(s): M48.00 - SPINAL STENOSIS, SITE UNSPECIFIED (7) 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 derm consulted Code(s): L98.8 - OTH DISRD OF THE SKIN AND SUBCUTANEOUS TISSUE (8) Atrial fibrillation Assessment/Plan: rate controlled c/w home diltiazem c/w apixiban Code(s): I48.91 - UNSPECIFIED ATRIAL FIBRILLATION Qualifiers: Atrial fibrillation type: permanent Qualified Code(s): I48.21 - Permanent atrial fibrillation (9) Diastolic CHF Assessment/Plan: on lasix bid check electrolytes in a.m. Code(s): I50.30 - UNSPECIFIED DIASTOLIC (CONGESTIVE) HEART FAILURE Qualifiers: Heart failure chronicity: chronic Qualified Code(s): I50.32 - Chronic diastolic (congestive) heart failure (10) Sjogrens syndrome Code(s): M35.00 - SICCA SYNDROME, UNSPECIFIED (11) Prophylactic measure Assessment/Plan: FEN tolerating po monitor electrolytes low sodium diet DVT apixaban Dispo maintain as inpatient discharge planning full code Code(s): Z29.9 - ENCOUNTER FOR PROPHYLACTIC MEASURES, UNSPECIFIED Visit type - Emergency Visit Emergency Visit: Yes ED Registration Date: 11/13/19 Care time: The patient presented to the Emergency Department on the above date and was hospitalized for further evaluation of their emergent condition. - New Patient This patient is new to me today: No - Critical Care Critical Care patient: No - Discharge Referral Referred to [facility] Med P.C.: No
[2019-11-17] MEDS ORDERED: BISACODYL 10 MG SUPP.RECT RC ONE (17:45)
[2019-11-17] MEDS ORDERED: SODIUM PHOSPHATE/NA BIPHOS 133 ML ENEMA PR ONE (21:16)
[2019-11-17] MEDS: LIDOCAINE PATCH REMOVAL MC SCH (21:33)
[2019-11-17] MEDS: ATORVASTATIN CA 40 MG TABLET (FP) PO SCH (21:33)
[2019-11-17] MEDS: FAMOTIDINE 40 MG/5 ML ORAL SUSPENSION PO SCH (21:34)
[2019-11-17] MEDS: oxyCODONE HCL 5 MG TABLET PO PRN (23:17)
[2019-11-18] MEDS ORDERED: AZTREONAM 1 GM VIAL (RESTRICTED TO ID) ONE ×3 (01:40→16:39)
[2019-11-18] MEDS ORDERED: DEXTROSE 5%-WATER - 50 ML IVPB ONE ×3 (01:40→16:40)
[2019-11-18] MEDS: AZTREONAM 1 GM in DEXTROSE 5%-WATER - 50 ML IVPB SCH ×3 (02:00→17:23)
[2019-11-18] MEDS: FUROSEMIDE 20 MG TABLET (FP) PO SCH ×2 (05:56→13:15)
[2019-11-18] MEDS: GABAPENTIN 400 MG CAPSULE (FP) PO SCH ×3 (05:56→21:27)
[2019-11-18] MEDS: ACETAMINOPHEN 500 MG TABLET (FP) PO PRN (05:56)
--- NOTE | 2019-11-18 09:54 | PN ---
Teaching Attending Note Name of Resident: Elmer Hdz ATTENDING PHYSICIAN STATEMENT I saw and evaluated the patient. I reviewed the resident's note and discussed the case with the resident. I agree with the resident's findings and plan as documented with exceptions below. SUBJECTIVE: patient seen and examined, lower abdominal and leg redness/swelling improved. No dyspnea or new concerns. OBJECTIVE: Vital Signs Period Temp Pulse Resp BP Sys/William Pulse Ox Last 24 Hr 98 F-98.7 F 58-79 18-20 104-133/48-59 96 Intake & Output 11/15/19 11/16/19 11/17/19 11/18/19 23:59 23:59 23:59 23:59 Intake Total 769 028 9209 350 Output Total 1200 2500 2000 400 Balance -550 -2200 -700 -50 Weight 246 lb 7 oz General: sitting in bed, no acute distress Chest: CTAB,no rales or wheezing Abdomen;Soft, morbidly obese, erythema with petechial rash lower abdomen and groin/intertriginous areas, R>L, NT Extremities: LLE with chronic skin hyperpigmentation/venous insufficiency, mild erythema above lateral left knee RLE dressing with superficial ulceration/crusting/hyperpigmentation, no active discharge or erythema noted Home Medications Medication Instructions Recorded Acetaminophen [Tylenol Extra 500 mg PO Q6H PRN 10/25/19 Strength] Apixaban [Eliquis -] 5 mg PO BID 10/25/19 Ascorbate Calcium [Vitamin C] 1,000 mg PO DAILY 10/25/19 Bupropion HCl [Bupropion Xl] 150 mg PO DAILY 10/25/19 Cholecalciferol (Vitamin D3) 1,000 unit PO DAILY 10/25/19 [Vitamin D3] Cyanocobalamin [Vitamin B12 -] 1,000 mcg PO DAILY 10/25/19 Diltiazem Cd [Cardizem Cd -] 360 mg PO DAILY 10/25/19 Furosemide [Lasix -] 60 mg PO BID 10/25/19 Gabapentin [Neurontin -] 400 mg PO Q8H 10/25/19 Guaifenesin [Mucinex] 600 mg PO DAILY 10/25/19 Hydroxychloroquine So4 [Plaquenil 200 mg PO DAILY 10/25/19 -] Levalbuterol HCl [Xopenex] 0.31 mg IH Q8H PRN 10/25/19 Metoprolol Tartrate 50 mg PO BID 10/25/19 Mineral Oil/Pet Hy-Phl [Aquaphor -] 1 applic TP DAILY 10/25/19 Nystatin Powder [Nystop Powder -] 60 gm TP TID PRN 10/25/19 Oxycodone HCl/Acetaminophen 1 tablet PO QID PRN 10/25/19 [Percocet 5-325 mg Tablet] Polyethylene Glycol 3350 17 gm PO DAILY 10/25/19 Ranitidine HCl 150 mg PO HS 10/25/19 Simvastatin 10 mg PO HS 10/25/19 Silver Sulfadiazine 1% Top Cr 1 applic TP DAILY #2 jar 10/27/19 [Silvadene -] predniSONE [Deltasone -] See Taper PO ASDIR #81 tab 10/27/19 Active Medications Acetaminophen (Tylenol -) 500 mg PO Q6H PRN PRN Reason: PAIN LEVEL 1-5 Last Admin: 11/18/19 05:56 Dose: 500 mg Apixaban (Eliquis -) 5 mg PO BID [facility] Last Admin: 11/17/19 21:33 Dose: 5 mg Ascorbic Acid (Vitamin C -) 500 mg PO DAILY [facility] Last Admin: 11/17/19 10:05 Dose: 500 mg Atorvastatin Calcium (Lipitor -) 40 mg PO HS [facility] Last Admin: 11/17/19 21:33 Dose: 40 mg Cholecalciferol (Vitamin D3 -) 1,000 unit PO DAILY [facility] Last Admin: 11/17/19 10:05 Dose: 1,000 unit Cyanocobalamin (Vitamin B12 -) 1,000 mcg PO DAILY [facility] Last Admin: 11/17/19 10:05 Dose: 1,000 mcg Diltiazem HCl (Cardizem Cd -) 360 mg PO DAILY [facility] Last Admin: 11/17/19 10:04 Dose: 360 mg Emollient Ointment (Aquaphor -) 1 applic TP BID [facility] Last Admin: 11/17/19 21:33 Dose: 1 applic Famotidine (Pepcid) 20 mg PO DAILY@2200 [facility] Last Admin: 11/17/19 21:34 Dose: 20 mg Furosemide (Lasix -) 60 mg PO BIDLASIX [facility] Last Admin: 11/18/19 05:56 Dose: 60 mg Gabapentin (Neurontin -) 400 mg PO TID [facility] Last Admin: 11/18/19 05:56 Dose: 400 mg Guaifenesin (Mucinex -) 600 mg PO DAILY [facility] Last Admin: 11/17/19 10:05 Dose: 600 mg Hydroxychloroquine Sulfate (Plaquenil -) 200 mg PO DAILY [facility] Last Admin: 11/17/19 10:05 Dose: 200 mg Aztreonam 1 gm/ Dextrose 50 mls @ 100 mls/hr IVPB Q8H-IV BELL; Protocol Last Admin: 11/18/19 02:00 Dose: 100 mls/hr Levalbuterol HCl (Xopenex) 0.31 mg IH Q8H PRN PRN Reason: WHEEZING Levalbuterol HCl (Xopenex) 0.31 mg IH Q8H PRN PRN Reason: WHEEZING Lidocaine (Lidoderm Patch -) 1 patch TP DAILY [facility] Last Admin: 11/17/19 10:07 Dose: 1 patch Linezolid (Zyvox (Restricted To Id) -) 600 mg PO BID [facility] Last Admin: 11/17/19 21:33 Dose: 600 mg Metoprolol Tartrate (Lopressor -) 50 mg PO BID [facility] Last Admin: 11/17/19 21:33 Dose: 50 mg Miscellaneous (Lidoderm Patch Removal) 1 each MC DAILY@2200 [facility] Last Admin: 11/17/19 21:33 Dose: 1 each Nystatin (Nystop Powder -) 1 applic TP TID PRN PRN Reason: DRY SKIN Last Admin: 11/16/19 10:09 Dose: 1 applic Oxycodone HCl (Roxicodone -) 5 mg PO Q6H PRN PRN Reason: PAIN LEVEL 7 - 10 Last Admin: 11/17/19 23:17 Dose: 5 mg Polyethylene Glycol (Miralax (For Daily Use) -) 17 gm PO DAILY [facility] Last Admin: 11/17/19 10:08 Dose: 17 gm Laboratory Results - last 24 hr 11/17/19 11/17/19 09:35 09:35 WBC 6.5 RBC 5.08 Hgb 12.6 Hct 40.5 MCV 79.7 L MCH 24.7 L MCHC 31.0 L RDW 16.0 H Plt Count 208 D MPV 7.9 D Absolute Neuts (auto) 4.3 Neutrophils % 65.7 Lymphocytes % 18.2 Monocytes % 9.0 Eosinophils % 6.8 H D Basophils % 0.3 Nucleated RBC % 0 Sodium 138 Potassium 3.7 Chloride 92 L Carbon Dioxide 41 H Anion Gap 4 L BUN 17.8 Creatinine 0.6 Est GFR (CKD-EPI)AfAm 105.54 Est GFR (CKD-EPI)NonAf 91.06 Random Glucose 130 H Calcium 8.2 L Magnesium 1.8 Total Bilirubin 0.4 AST 12 L ALT 20 Alkaline Phosphatase 109 Total Protein 5.7 L Albumin 2.6 L Microbiology 11/13/19 15:00 Blood - Peripheral Venous Blood Culture - Preliminary NO GROWTH OBTAINED AFTER 96 HOURS, INCUBATION TO CONTINUE FOR 1 DAYS. 11/13/19 15:00 Blood - Peripheral Venous Blood Culture - Preliminary NO GROWTH OBTAINED AFTER 96 HOURS, INCUBATION TO CONTINUE FOR 1 DAYS. 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 Currently afebrile, WBC normalized. Aztreonam/Daptomycin per ID. Blood cx neg so far. Has been seen by dermatology Dr. Lancaster in 06/2019. 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 She was recommended good hygeine practices, trimacinolone creasm/PITER wraps and leg elevation, assisted living vs SNF for better care and felt her erythema could be from her long standing anti=coagulation. Continue home lasix, diltiazem, metoprolol, ranitidine. Monitor volume status. Outpatient follow up for known left renal mass (patient aware). Plaquenil being continued this admission, monitor. DVTPPX on eliquis Dispoin 2-3 days if continues to improve pending ID recs. Discussed with patient
[2019-11-18] MEDS: HYDROXYCHLOROQUINE SO4 200 MG TABLET (FP) PO SCH (10:29)
[2019-11-18] MEDS: CYANOCOBALAMIN 1,000 MCG TABLET (FP) PO SCH (10:29)
[2019-11-18] MEDS: CHOLECALCIFEROL (VIT D3) 1,000 UNIT (25 MCG) TABLET PO SCH (10:29)
[2019-11-18] MEDS: guaiFENesin 600 MG TABLET.ER (FP) PO SCH (10:29)
[2019-11-18] MEDS: METOPROLOL TARTRATE 50 MG TABLET (FP) PO SCH ×2 (10:29→21:30)
[2019-11-18] MEDS: ASCORBIC ACID 500 MG TABLET (FP) PO SCH (10:29)
[2019-11-18] MEDS: LINEZOLID 600 MG TABLET (RESTRICTED TO ID) PO SCH ×2 (10:30→21:29)
[2019-11-18] MEDS: APIXABAN 5 MG TABLET PO SCH ×2 (10:30→21:27)
[2019-11-18] MEDS: MINERAL OIL/PET HY-PHL TOPICAL OINTMENT 454 GM JAR TP SCH ×2 (10:31→21:29)
[2019-11-18] MEDS: LIDOCAINE 5% TOPICAL PATCH TP SCH (10:32)
[2019-11-18] MEDS: POLYETHYLENE GLYCOL 3350 119 GM BTL PO SCH (10:32)
[2019-11-18 10:46] LABS: BASO % 0.5 % (0-2.0); HEMATOCRIT 40.7 % (32.4-45.2); LYMPH % 20.2 % (8-40); MCH 25.3 pg (25.7-33.7); MCHC 31.9 g/dl (32.0-36.0); MEAN CELL VOLUME 79.4 fl (80-96); MEAN PLT VOLUME 8.1 fl (7.5-11.1); MONO % 7.1 % (3.8-10.2); NEUT % 63.2 % (42.8-82.8); PLATELET COUNT 203 K/MM3 (134-434); RBC 5.12 M/mm3 (3.60-5.2); RDW 16.4 % (11.6-15.6); WHITE BLOOD COUNT 5.2 K/mm3 (4.0-10.0)
[2019-11-18 11:25] LABS: ALBUMIN 2.5 g/dl (3.4-5.0); BILIRUBIN,TOTAL 0.4 mg/dL (0.2-1); BLOOD UREA NITROGEN 15.4 mg/dL (7-18); CALCIUM 8.2 mg/dL (8.5-10.1); CREATININE 0.5 mg/dL (0.55-1.3); MAGNESIUM 1.6 mg/dL (1.8-2.4); POTASSIUM 3.3 mmol/L (3.5-5.1); TOT PROT 5.7 g/dl (6.4-8.2)
--- NOTE | 2019-11-18 11:34 | PN ---
Physical Exam: SUBJECTIVE: Patient seen and examined. No acute events overnight. Patient without complaints. OBJECTIVE: Vital Signs Period Temp Pulse Resp BP Sys/William Pulse Ox Last 24 Hr 98.1 F-98.7 F 58-79 18-20 104-133/48-59 96 GENERAL: The patient is awake, alert, and fully oriented, in no acute distress. HEAD: Normal with no signs of trauma. EYES: PERRL, extraocular movements intact, sclera anicteric, conjunctiva clear. No ptosis. ENT: MMM NECK: Trachea midline, full range of motion, supple. LUNGS: Breath sounds equal, clear to auscultation bilaterally, no wheezes, no crackles, no accessory muscle use. HEART: RRR, S1, S2 normal ABDOMEN: Soft, nontender, nondistended, normoactive bowel sounds, no guarding. Erythematous rash noted in skin folds along lower abdomen EXTREMITIES: Bilateral lower extremity cellulitis left lower extremity greater than right NEUROLOGICAL: Normal speech, gait not observed. PSYCH: appropriate mood and affect SKIN: hyperpigmentation of left leg below knee to foot, scattered redness that covers the left knee. right leg with dry scaly skin and discoloration. Right leg wrapped in dressing. Laboratory Results - last 24 hr 11/17/19 11/18/19 11/18/19 09:35 10:00 10:00 WBC 5.2 RBC 5.12 Hgb 13.0 Hct 40.7 MCV 79.4 L MCH 25.3 L MCHC 31.9 L RDW 16.4 H Plt Count 203 MPV 8.1 Absolute Neuts (auto) 3.3 Neutrophils % 63.2 Lymphocytes % 20.2 Monocytes % 7.1 Eosinophils % 9.0 H Basophils % 0.5 Nucleated RBC % 0 Sodium 138 Potassium 3.3 L Chloride 94 L Carbon Dioxide 37 H Anion Gap 8 BUN 15.4 Creatinine 0.5 L Est GFR (CKD-EPI)AfAm 112.07 Est GFR (CKD-EPI)NonAf 96.69 Random Glucose 138 H Calcium 8.2 L Magnesium 1.6 L Total Bilirubin 0.4 AST 13 L ALT 17 Alkaline Phosphatase 109 105 Total Protein 5.7 L Albumin 2.5 L Active Medications Generic Name Dose Route Start Last Admin Trade Name Freq PRN Reason Stop Dose Admin Acetaminophen 500 mg 11/13/19 18:28 11/18/19 05:56 Tylenol - PO 500 mg Q6H PRN Administration PAIN LEVEL 1-5 Apixaban 5 mg 11/13/19 22:00 11/18/19 10:30 Eliquis - PO 5 mg BID BELL Administration Ascorbic Acid 500 mg 11/14/19 10:00 11/18/19 10:29 Vitamin C - PO 500 mg DAILY BELL Administration Atorvastatin Calcium 40 mg 11/13/19 22:00 11/17/19 21:33 Lipitor - PO 40 mg HS BELL Administration Cholecalciferol 1,000 unit 11/14/19 10:00 11/18/19 10:29 Vitamin D3 - PO 1,000 unit DAILY BELL Administration Cyanocobalamin 1,000 mcg 11/14/19 10:00 11/18/19 10:29 Vitamin B12 - PO 1,000 mcg DAILY BELL Administration Diltiazem HCl 360 mg 11/14/19 10:00 11/18/19 10:29 Cardizem Cd - PO 360 mg DAILY BELL Administration Emollient Ointment 1 applic 11/13/19 22:00 11/18/19 10:31 Aquaphor - TP 1 applic BID BELL Administration Famotidine 20 mg 11/13/19 22:00 11/17/19 21:34 Pepcid PO 20 mg DAILY@2200 BELL Administration Furosemide 60 mg 11/14/19 06:00 11/18/19 05:56 Lasix - PO 60 mg BIDLASIX BELL Administration Gabapentin 400 mg 11/13/19 19:04 11/18/19 05:56 Neurontin - PO 400 mg TID BELL Administration Guaifenesin 600 mg 11/14/19 10:00 11/18/19 10:29 Mucinex - PO 600 mg DAILY BELL Administration Hydroxychloroquine Sulfate 200 mg 11/14/19 10:00 11/18/19 10:29 Plaquenil - PO 200 mg DAILY BELL Administration Aztreonam 1 gm/ Dextrose 50 mls @ 100 mls/hr 11/13/19 18:15 11/18/19 10:30 IVPB 100 mls/hr Q8H-IV BELL Administration Protocol Levalbuterol HCl 0.31 mg 11/13/19 18:28 Xopenex IH Q8H PRN WHEEZING Levalbuterol HCl 0.31 mg 11/13/19 23:31 Xopenex IH Q8H PRN WHEEZING Lidocaine 1 patch 11/16/19 12:30 11/18/19 10:32 Lidoderm Patch - TP 1 patch DAILY BELL Administration Linezolid 600 mg 11/13/19 22:00 11/18/19 10:30 Zyvox (Restricted To Id) - PO 600 mg BID BELL Administration Magnesium Oxide 800 mg 11/18/19 11:27 Mag-Ox - PO 11/18/19 11:28 ONCE ONE Metoprolol Tartrate 50 mg 11/13/19 22:00 11/18/19 10:29 Lopressor - PO 50 mg BID BELL Administration Miscellaneous 1 each 11/16/19 22:00 11/17/19 21:33 Lidoderm Patch Removal MC 1 each DAILY@2200 BELL Administration Nystatin 1 applic 11/13/19 18:28 11/16/19 10:09 Nystop Powder - TP 1 applic TID PRN Administration DRY SKIN Oxycodone HCl 5 mg 11/16/19 12:25 11/17/19 23:17 Roxicodone - PO 5 mg Q6H PRN Administration PAIN LEVEL 7 - 10 Polyethylene Glycol 17 gm 11/14/19 10:00 11/18/19 10:32 Miralax (For Daily Use) - PO 17 gm DAILY BELL Administration Potassium Chloride 40 meq 11/18/19 11:28 K-Dur - PO 11/18/19 11:29 ONCE ONE ASSESSMENT/PLAN: 74F PMH chronic venous stasis ulcers, COPD (on home oxygen), CHF, Atrial Fibrillation (on Eliquis), Diabetes Mellitus, HTN, Srojen's disease, spinal stenosis, arthritis, MRSA+ cellulitis presents from for evolving cellulitis noticed by visiting nurse. Patient has had multiple admissions for cellulitis. #Cellulitis - Wound care to LE with dressing as directed - elevate legs while in bed - ID consulted - Hx of MRSA cellulitis, improved with astreonam and daptomycin in the past - Continue Aztreonam, Daptomycin - contact precautions - Blood cx negative to date #Diastolic CHF - Lasix BID - monitor lytes #COPD - Continue home medications - on home oxygen therapy - monitor O2 sat, start oxygen therapy as needed #Depression - hold wellbutrin due to interaction with linezolid - continue other home depression medications #A fib - rate controlled - continue apixaban, diltiazem home medications #Spinal Stenosis - continue oxycodone as needed - Lidoderm patches for pain control as needed #Prophylaxis - Apixaban #FEN - monitor and replete lytes as needed - sodium controlled diet #Disposition - continue management, D/C pending improvement Visit type - Emergency Visit Emergency Visit: Yes ED Registration Date: 11/13/19 Care time: The patient presented to the Emergency Department on the above date and was hospitalized for further evaluation of their emergent condition. - New Patient This patient is new to me today: Yes Date on this admission: 11/18/19 - Critical Care Critical Care patient: No ATTENDING PHYSICIAN STATEMENT I saw and evaluated the patient. I reviewed the resident's note and discussed the case with the resident. I agree with the resident's findings and plan as documented. SUBJECTIVE: OBJECTIVE: ASSESSMENT AND PLAN:
[2019-11-18] MEDS ORDERED: MAGNESIUM OXIDE 400 MG TABLET (FP) PO ONE (12:00)
[2019-11-18] MEDS ORDERED: POTASSIUM CHLORIDE TABS 20 MEQ TABLET.ER (FP) PO ONE (12:15)
[2019-11-18] MEDS: oxyCODONE HCL 5 MG TABLET PO PRN (13:50)
[2019-11-18] MEDS ORDERED: PT OWN MED DRAWER 7, Y5N ONE (21:04)
[2019-11-18] MEDS: ATORVASTATIN CA 40 MG TABLET (FP) PO SCH (21:27)
[2019-11-18] MEDS: FAMOTIDINE 40 MG/5 ML ORAL SUSPENSION PO SCH (21:28)
[2019-11-18] MEDS: LIDOCAINE PATCH REMOVAL MC SCH (21:45)
[2019-11-19] MEDS ORDERED: AZTREONAM 1 GM VIAL (RESTRICTED TO ID) ONE ×2 (01:13→10:35)
[2019-11-19] MEDS ORDERED: DEXTROSE 5%-WATER - 50 ML IVPB ONE ×2 (01:13→10:35)
[2019-11-19] MEDS: AZTREONAM 1 GM in DEXTROSE 5%-WATER - 50 ML IVPB SCH ×3 (01:32→11:52)
[2019-11-19] MEDS: FUROSEMIDE 20 MG TABLET (FP) PO SCH ×2 (06:18→15:27)
[2019-11-19] MEDS: GABAPENTIN 400 MG CAPSULE (FP) PO SCH ×3 (06:18→22:36)
[2019-11-19] MEDS: oxyCODONE HCL 5 MG TABLET PO PRN ×2 (06:30→18:01)
[2019-11-19] MEDS ORDERED: POTASSIUM CHLORIDE TABS 20 MEQ TABLET.ER (FP) PO ONE (08:18)
[2019-11-19 10:02] LABS: BASO % 0.3 % (0-2.0); EOS % 6.6 % (0-4.5); HEMATOCRIT 41.7 % (32.4-45.2); LYMPH % 20.8 % (8-40); MCH 25.2 pg (25.7-33.7); MCHC 31.2 g/dl (32.0-36.0); MEAN CELL VOLUME 80.7 fl (80-96); MONO % 6.5 % (3.8-10.2); NEUT % 65.8 % (42.8-82.8); PLATELET COUNT 220 K/MM3 (134-434); RBC 5.16 M/mm3 (3.60-5.2); RDW 16.8 % (11.6-15.6); WHITE BLOOD COUNT 5.4 K/mm3 (4.0-10.0)
[2019-11-19] MEDS ORDERED: PT OWN MED DRAWER 7, Y5N ONE ×2 (10:37→21:02)
[2019-11-19 10:42] LABS: ALBUMIN 2.6 g/dl (3.4-5.0); BILIRUBIN,TOTAL 0.3 mg/dL (0.2-1); BLOOD UREA NITROGEN 17.5 mg/dL (7-18); CALCIUM 8.4 mg/dL (8.5-10.1); CREATININE 0.5 mg/dL (0.55-1.3); MAGNESIUM 1.8 mg/dL (1.8-2.4); POTASSIUM 3.9 mmol/L (3.5-5.1); TOT PROT 5.8 g/dl (6.4-8.2)
[2019-11-19] MEDS: ASCORBIC ACID 500 MG TABLET (FP) PO SCH (10:43)
[2019-11-19] MEDS: guaiFENesin 600 MG TABLET.ER (FP) PO SCH (10:43)
[2019-11-19] MEDS: CHOLECALCIFEROL (VIT D3) 1,000 UNIT (25 MCG) TABLET PO SCH (10:43)
[2019-11-19] MEDS: APIXABAN 5 MG TABLET PO SCH ×2 (10:43→22:36)
[2019-11-19] MEDS: LIDOCAINE 5% TOPICAL PATCH TP SCH (10:44)
[2019-11-19] MEDS: METOPROLOL TARTRATE 50 MG TABLET (FP) PO SCH ×3 (10:44→22:36)
[2019-11-19] MEDS: CYANOCOBALAMIN 1,000 MCG TABLET (FP) PO SCH (10:44)
[2019-11-19] MEDS: HYDROXYCHLOROQUINE SO4 200 MG TABLET (FP) PO SCH (10:44)
[2019-11-19] MEDS: MINERAL OIL/PET HY-PHL TOPICAL OINTMENT 454 GM JAR TP SCH ×2 (10:45→22:38)
[2019-11-19] MEDS: LINEZOLID 600 MG TABLET (RESTRICTED TO ID) PO SCH (10:46)
[2019-11-19] MEDS: POLYETHYLENE GLYCOL 3350 119 GM BTL PO SCH (11:17)
--- NOTE | 2019-11-19 11:38 | CON.PULM ---
Consult Consult Specialty:: PULMONARY Referred by:: JAH Reason for Consultation:: COPD - History of Present Illness Chief Complaint: RASH/CELLULITIS History of Present Illness: PMH: 74F PMH chronic venous stasis ulcers, COPD (on home oxygen), CHF, Atrial Fibrillation (on Eliquis), Diabetes Mellitus, HTN, Srojen's disease, spinal stenosis, arthritis, MRSA+ cellulitis presents from home with concern for evolving cellulitis noticed by visiting nurse this morning. Multiple admissions for recurrent cellulitis, hx of daptomycin / aztreonam clearance while admitted. Denies fevers, chills, nausea, vomiting, chest pain, SOB, recent skin breaks. Hx of DVT in RLE, reports this feels different, no heart racing, no SOB , no unilateral swelling aside from cellulitic regions. - History Source History Provided By: Patient, Medical Record Limitations to Obtaining History: No Limitations - Past Medical History B OPERATOR: No: Alzheimer's Cardio/Vascular: Yes: AFIB (on eliquis), CHF, HTN, Other (h/o DVT, venous stasis ) Pulmonary: Yes: COPD, O2 Dependent (at home), Sleep Apnea Gastrointestinal: No: Ascites Hepatobiliary: Yes: Other (fatty liver disease) ...: No Infectious Disease: Yes: Other (recurrent cellulitis) Musculoskeletal: Yes: Chronic low back pain (/spinal stenosis) Rheumatology: Yes: Rheumatoid Arthritis Endocrine: Yes: Osteopenia, Other (obesity, thyroid nodule) - Past Surgical History Past Surgical History: Yes: Joint Replacement (right knee over 10 years ago) - Alcohol/Substance Use Hx Alcohol Use: No History of Substance Use: reports: None - Smoking History Smoking history: Former smoker Have you smoked in the past 12 months: No Aproximately how many cigarettes per day: 0 If you are a former smoker, when did you quit?: 1984 - Social History Usual Living Arrangement: With Spouse ( disabled) ADL: Support Services History of Recent Travel: No Home Medications - Allergies Allergies/Adverse Reactions: Allergies Allergy/AdvReac Type Severity Reaction Status Date / Time Penicillins Allergy Severe Swelling Verified 11/13/19 13:05 clindamycin Allergy Mild Rash Verified 11/13/19 13:05 doxycycline Allergy Swelling Verified 11/13/19 13:05 levofloxacin [From Levaquin] Allergy Rash Verified 11/13/19 13:05 vancomycin AdvReac Mild Itching Verified 11/13/19 13:05 adhesive tape AdvReac "RIPS MY Verified 11/13/19 13:05 SKIN" - Home Medications Home Medications: Ambulatory Orders Acetaminophen [Tylenol Extra Strength] 500 mg PO Q6H PRN 10/25/19 Apixaban [Eliquis -] 5 mg PO BID 10/25/19 Ascorbate Calcium [Vitamin C] 1,000 mg PO DAILY 10/25/19 Bupropion HCl [Bupropion Xl] 150 mg PO DAILY 10/25/19 Cholecalciferol (Vitamin D3) [Vitamin D3] 1,000 unit PO DAILY 10/25/19 Cyanocobalamin [Vitamin B12 -] 1,000 mcg PO DAILY 10/25/19 Diltiazem Cd [Cardizem Cd -] 360 mg PO DAILY 10/25/19 Furosemide [Lasix -] 60 mg PO BID 10/25/19 Gabapentin [Neurontin -] 400 mg PO Q8H 10/25/19 Guaifenesin [Mucinex] 600 mg PO DAILY 10/25/19 Hydroxychloroquine So4 [Plaquenil -] 200 mg PO DAILY 10/25/19 Levalbuterol HCl [Xopenex] 0.31 mg IH Q8H PRN 10/25/19 Metoprolol Tartrate 50 mg PO BID 10/25/19 Mineral Oil/Pet Hy-Phl [Aquaphor -] 1 applic TP DAILY 10/25/19 Nystatin Powder [Nystop Powder -] 60 gm TP TID PRN 10/25/19 Oxycodone HCl/Acetaminophen [Percocet 5-325 mg Tablet] 1 tablet PO QID PRN 10/25 Polyethylene Glycol 3350 17 gm PO DAILY 10/25/19 Ranitidine HCl 150 mg PO HS 10/25/19 Simvastatin 10 mg PO HS 10/25/19 Silver Sulfadiazine 1% Top Cr [Silvadene -] 1 applic TP DAILY #2 jar 10/27/19 predniSONE [Deltasone -] See Taper PO ASDIR #81 tab 10/27/19 Family Medical History Family History: Unremarkable Review of Systems - Review of Systems Constitutional: denies: Fever Eyes: denies: Blurred Vision HENT: denies: Difficult Swallowing Neck: denies: Decreased ROM Cardiovascular: denies: Chest Pain Respiratory: reports: Cough Gastrointestinal: denies: Abdominal Pain Genitourinary: denies: Burning Integumentary: reports: Erythema, Rash, Wound Neurological: reports: No Symptoms Endocrine: reports: No Symptoms Physical Exam Vital Sings: Vital Signs Temperature 98.3 F 11/19/19 05:00 Pulse Rate 74 11/19/19 05:00 Respiratory Rate 20 11/19/19 05:00 Blood Pressure 108/62 11/19/19 05:00 O2 Sat by Pulse Oximetry (%) 96 11/18/19 21:00 Constitutional: Yes: Calm Eyes: Yes: EOM Intact HENT: Yes: Normocephalic Neck: Yes: Trachea Midline Cardiovascular: Yes: Regular Rate and Rhythm Respiratory: Yes: Diminished Gastrointestinal: Yes: Normal Bowel Sounds Extremities: Yes: Other (CELLULITIS) Labs: CBC, BMP 11/19/19 09:05 11/19/19 09:05 Imaging - Results Chest X-ray: Report Reviewed, Image Reviewed Problem List - Problems (1) COPD (chronic obstructive pulmonary disease) Code(s): J44.9 - CHRONIC OBSTRUCTIVE PULMONARY DISEASE, UNSPECIFIED (2) Cellulitis Code(s): L03.90 - CELLULITIS, UNSPECIFIED Qualifiers: Site of cellulitis: trunk Site of cellulitis of trunk: abdominal wall Qualified Code(s): L03.311 - Cellulitis of abdominal wall (3) Chronic depression Code(s): F32.9 - MAJOR DEPRESSIVE DISORDER, SINGLE EPISODE, UNSPECIFIED (4) MRSA cellulitis Code(s): L03.90 - CELLULITIS, UNSPECIFIED; B95.62 - METHICILLIN RESIS STAPH INFCT CAUSING DISEASES CLASSD ELSWHR (5) On home oxygen therapy Code(s): Z99.81 - DEPENDENCE ON SUPPLEMENTAL OXYGEN (6) Spinal stenosis Code(s): M48.00 - SPINAL STENOSIS, SITE UNSPECIFIED Assessment/Plan DIFFUSE ERYTHEMATOUS DERMATITIS COPD STABLE ON CHRONIC O2 USES INHALERS AT HOME ON PRN BASIS ACUTE ON CHRONIC MRSA CELLULITIS LOWER EXT MULTIPLE MEDICATION ALLERGIES WILL CONTINUE O2 BRONCHODILATORS PRN ID F/U IN VIEW OF MULTIPLE ABS ALLERGIES AND PRESENCE OF EMERGING RASH WILL FOLLOW Delphine MCNAIR MD
--- NOTE | 2019-11-19 11:41 | PN ---
Physical Exam: SUBJECTIVE: Patient seen and examined at the bedside. Last night she noticed both arms with red blotches also noted some red blotches on left upper chest. OBJECTIVE: raised pink blotches/hives on both arms and left upper chest, will give benadryl 25mg iv x 1 and prednisone 40 x 1 no wheezing, no airway compromise, tolerating room air spoke to Dr. Lancaster. recommend starting triamcinolone cream to both arms for rash, no biopsy of legs recommended this time. per MD, encourage elevation of legs and possible specialty boots. May need to be seen by vascular also. recommend meticulous cleansing of bilateral legs to avoid infection. recommend evette wrapping to both legs. Patient is a 74F PMH chronic venous stasis ulcers, COPD (on home oxygen), CHF, Atrial Fibrillation (on Eliquis), Diabetes Mellitus, HTN, Srojen's disease, spinal stenosis, arthritis, MRSA+ cellulitis presents from home with concern for evolving cellulitis noticed by visiting nurse. Patient with multiple admissions for recurrent cellulitis. Vital Signs Period Temp Pulse Resp BP Sys/William Pulse Ox Last 24 Hr 98.1 F-98.6 F 58-74 18-20 108-115/53-62 96 GENERAL: The patient is awake, alert, and fully oriented, in no acute distress. HEAD: Normal with no signs of trauma. EYES: PERRL, extraocular movements intact, sclera anicteric, conjunctiva clear. No ptosis. ENT: Ears normal, nares patent, oropharynx clear without exudates, moist mucous membranes. NECK: Trachea midline, full range of motion, supple. LUNGS: mild wheezing of upper lobes. stable oxygen saturations. HEART: Regular rate and rhythm, S1, S2 without murmur, rub or gallop. ABDOMEN: Soft, nontender, nondistended, normoactive bowel sounds EXTREMITIES:Bilateral lower extremity cellulitis left lower extremity greater than right NEUROLOGICAL: Normal speech, gait not observed. PSYCH: Normal mood, normal affect. SKIN: raised pink blotches/hives on both arms and left upper chest, hyperpigmentation of left leg below knee to foot, scattered redness/raised that covers the left knee. right leg with dry scaly skin and discoloration. raised red rash across lower abdomen. Laboratory Results - last 24 hr 11/19/19 11/19/19 09:05 09:05 WBC 5.4 RBC 5.16 Hgb 13.0 Hct 41.7 MCV 80.7 MCH 25.2 L MCHC 31.2 L RDW 16.8 H Plt Count 220 MPV 8.0 Absolute Neuts (auto) 3.5 Neutrophils % 65.8 Lymphocytes % 20.8 Monocytes % 6.5 Eosinophils % 6.6 H Basophils % 0.3 Nucleated RBC % 0 Sodium 138 Potassium 3.9 Chloride 94 L Carbon Dioxide 40 H Anion Gap 4 L BUN 17.5 Creatinine 0.5 L Est GFR (CKD-EPI)AfAm 112.07 Est GFR (CKD-EPI)NonAf 96.69 Random Glucose 137 H Calcium 8.4 L Magnesium 1.8 Total Bilirubin 0.3 AST 14 L ALT 17 Alkaline Phosphatase 104 Total Protein 5.8 L Albumin 2.6 L Active Medications Generic Name Dose Route Start Last Admin Trade Name Freq PRN Reason Stop Dose Admin Acetaminophen 500 mg 11/13/19 18:28 11/18/19 05:56 Tylenol - PO 500 mg Q6H PRN Administration PAIN LEVEL 1-5 Apixaban 5 mg 11/13/19 22:00 11/19/19 10:43 Eliquis - PO 5 mg BID BELL Administration Ascorbic Acid 500 mg 11/14/19 10:00 11/19/19 10:43 Vitamin C - PO 500 mg DAILY BELL Administration Atorvastatin Calcium 40 mg 11/13/19 22:00 11/18/19 21:27 Lipitor - PO 40 mg HS BELL Administration Cholecalciferol 1,000 unit 11/14/19 10:00 11/19/19 10:43 Vitamin D3 - PO 1,000 unit DAILY BELL Administration Cyanocobalamin 1,000 mcg 11/14/19 10:00 11/19/19 10:44 Vitamin B12 - PO 1,000 mcg DAILY BELL Administration Diltiazem HCl 360 mg 11/14/19 10:00 11/19/19 10:43 Cardizem Cd - PO 360 mg DAILY BELL Administration Emollient Ointment 1 applic 11/13/19 22:00 11/19/19 10:45 Aquaphor - TP 1 applic BID BELL Administration Famotidine 20 mg 11/13/19 22:00 11/18/19 21:28 Pepcid PO 20 mg DAILY@2200 BELL Administration Furosemide 60 mg 11/14/19 06:00 11/19/19 06:18 Lasix - PO 60 mg BIDLASIX BELL Administration Gabapentin 400 mg 11/13/19 19:04 11/19/19 06:18 Neurontin - PO 400 mg TID BELL Administration Guaifenesin 600 mg 11/14/19 10:00 11/19/19 10:43 Mucinex - PO 600 mg DAILY BELL Administration Hydroxychloroquine Sulfate 200 mg 11/14/19 10:00 11/19/19 10:44 Plaquenil - PO 200 mg DAILY BELL Administration Aztreonam 1 gm/ Dextrose 50 mls @ 100 mls/hr 11/13/19 18:15 11/19/19 10:44 IVPB 100 mls/hr Q8H-IV BELL Administration Protocol Lidocaine 1 patch 11/16/19 12:30 11/19/19 10:44 Lidoderm Patch - TP 1 patch DAILY BELL Administration Linezolid 600 mg 11/13/19 22:00 11/19/19 10:46 Zyvox (Restricted To Id) - PO 600 mg BID BELL Administration Metoprolol Tartrate 50 mg 11/13/19 22:00 11/19/19 11:19 Lopressor - PO 50 mg BID BELL Administration Miscellaneous 1 each 11/16/19 22:00 11/18/19 21:45 Lidoderm Patch Removal MC 1 each DAILY@2200 BELL Administration Nystatin 1 applic 11/13/19 18:28 11/16/19 10:09 Nystop Powder - TP 1 applic TID PRN Administration DRY SKIN Oxycodone HCl 5 mg 11/16/19 12:25 11/19/19 06:30 Roxicodone - PO 5 mg Q6H PRN Administration PAIN LEVEL 7 - 10 Polyethylene Glycol 17 gm 11/14/19 10:00 11/19/19 11:17 Miralax (For Daily Use) - PO 17 gm DAILY BELL Administration ASSESSMENT/PLAN: Problem List - Problems (1) Cellulitis Assessment/Plan: Dr Lee following for recurrent bilateral lower ext cellulitis Patient on axtreonam & linezolid, but discontinued today after she developed bilateral arm redness/hives. no wheezing or airway compromise. discussed with dermatology and no interventions for biopsy planned at this time. recommendations by dermatology carried out. Monitor off antibiotics given benadryl, prednisone x 1 wound care to LE with dressings of right leg elevated legs while in bed Code(s): L03.90 - CELLULITIS, UNSPECIFIED Qualifiers: Site of cellulitis: trunk Site of cellulitis of trunk: abdominal wall Qualified Code(s): L03.311 - Cellulitis of abdominal wall (2) MRSA cellulitis Assessment/Plan: recent history of MRSA maintain contact precautions Code(s): L03.90 - CELLULITIS, UNSPECIFIED; B95.62 - METHICILLIN RESIS STAPH INFCT CAUSING DISEASES CLASSD ELSWHR (3) COPD (chronic obstructive pulmonary disease) Assessment/Plan: mild wheezing on exam, not in respiratory distress continue home inhalers on xopenex Code(s): J44.9 - CHRONIC OBSTRUCTIVE PULMONARY DISEASE, UNSPECIFIED (4) Chronic depression Assessment/Plan: continue home meds supportive care on wellbutrin at home Code(s): F32.9 - MAJOR DEPRESSIVE DISORDER, SINGLE EPISODE, UNSPECIFIED (5) On home oxygen therapy Assessment/Plan: tolerating room air, and prn oxygen @ 2 liters. 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 discussed today with derm and recommendations carried out. Code(s): L98.8 - OTH DISRD OF THE SKIN AND SUBCUTANEOUS TISSUE (8) Atrial fibrillation Assessment/Plan: rate controlled c/w home diltiazem c/w apixiban Code(s): I48.91 - UNSPECIFIED ATRIAL FIBRILLATION Qualifiers: Atrial fibrillation type: permanent Qualified Code(s): I48.21 - Permanent atrial fibrillation (9) Diastolic CHF Assessment/Plan: on lasix bid check electrolytes in a.m. Code(s): I50.30 - UNSPECIFIED DIASTOLIC (CONGESTIVE) HEART FAILURE Qualifiers: Heart failure chronicity: chronic Qualified Code(s): I50.32 - Chronic diastolic (congestive) heart failure (10) Sjogrens syndrome Code(s): M35.00 - SICCA SYNDROME, UNSPECIFIED (11) Prophylactic measure Assessment/Plan: FEN tolerating po monitor electrolytes low sodium diet DVT apixaban Dispo maintain as inpatient discharge planning full code Code(s): Z29.9 - ENCOUNTER FOR PROPHYLACTIC MEASURES, UNSPECIFIED Visit type - Emergency Visit Emergency Visit: Yes ED Registration Date: 11/13/19 Care time: The patient presented to the Emergency Department on the above date and was hospitalized for further evaluation of their emergent condition. - New Patient This patient is new to me today: No - Critical Care Critical Care patient: No - Discharge Referral Referred to [facility] No
[2019-11-19] MEDS ORDERED: predniSONE 20 MG TABLET (UD) PO ONE (11:47)
[2019-11-19] MEDS ORDERED: HYDROCORTISONE 0.5% TOPICAL OINTMENT TUBE TP SCH (12:00)
[2019-11-19] MEDS ORDERED: TRIAMCINOLONE ACET 0.1% 60 ML LOTION TP SCH (12:45)
[2019-11-19] MEDS: TRIAMCINOLONE ACET 0.1% 60 ML LOTION TP SCH ×2 (15:56→22:37)
[2019-11-19] MEDS: FAMOTIDINE 40 MG/5 ML ORAL SUSPENSION PO SCH (22:35)
[2019-11-19] MEDS: ACETAMINOPHEN 500 MG TABLET (FP) PO PRN (22:35)
[2019-11-19] MEDS: ATORVASTATIN CA 40 MG TABLET (FP) PO SCH (22:36)
[2019-11-19] MEDS: NYSTATIN 100,000 UNIT/GM TOPICAL CREAM 15 GM TUBE TP SCH (22:36)
[2019-11-19] MEDS: LIDOCAINE PATCH REMOVAL MC SCH (23:50)
[2019-11-20] MEDS: FUROSEMIDE 20 MG TABLET (FP) PO SCH ×2 (05:50→13:58)
[2019-11-20] MEDS: GABAPENTIN 400 MG CAPSULE (FP) PO SCH ×3 (05:50→21:33)
[2019-11-20] MEDS ORDERED: PT OWN MED DRAWER 7, Y5N ONE ×4 (06:45→20:59)
--- NOTE | 2019-11-20 08:15 | PN ---
Progress Note, Physician Chief Complaint: Rash on arms/chest persists. No complains of puritus. Awaiting to be cleared by ID to go home History of Present Illness: 74F PMH chronic venous stasis ulcers, COPD (on home oxygen), CHF, Atrial Fibrillation (on Eliquis), Diabetes Mellitus, HTN, Srojen's disease, spinal stenosis, arthritis, MRSA+ cellulitis presents from home with concern for evolving cellulitis noticed by visiting nurse this morning. Discharge home 10/27. Multiple admissions for recurrent cellulitis, with hx of daptomycin / aztreonam clearance. Last night she noticed both arms with red blotches also noted some red blotches on left upper chest. - Current Medication List Current Medications: Active Medications Acetaminophen (Tylenol -) 500 mg PO Q6H PRN PRN Reason: PAIN LEVEL 1-5 Last Admin: 11/19/19 22:35 Dose: 500 mg Apixaban (Eliquis -) 5 mg PO BID [facility] Last Admin: 11/19/19 22:36 Dose: 5 mg Ascorbic Acid (Vitamin C -) 500 mg PO DAILY [facility] Last Admin: 11/19/19 10:43 Dose: 500 mg Atorvastatin Calcium (Lipitor -) 40 mg PO HS [facility] Last Admin: 11/19/19 22:36 Dose: 40 mg Cholecalciferol (Vitamin D3 -) 1,000 unit PO DAILY [facility] Last Admin: 11/19/19 10:43 Dose: 1,000 unit Cyanocobalamin (Vitamin B12 -) 1,000 mcg PO DAILY [facility] Last Admin: 11/19/19 10:44 Dose: 1,000 mcg Diltiazem HCl (Cardizem Cd -) 360 mg PO DAILY [facility] Last Admin: 11/19/19 10:43 Dose: 360 mg Emollient Ointment (Aquaphor -) 1 applic TP BID [facility] Last Admin: 11/19/19 22:38 Dose: 1 applic Famotidine (Pepcid) 20 mg PO DAILY@2200 [facility] Last Admin: 11/19/19 22:35 Dose: 20 mg Furosemide (Lasix -) 60 mg PO BIDLASIX [facility] Last Admin: 11/20/19 05:50 Dose: 60 mg Gabapentin (Neurontin -) 400 mg PO TID [facility] Last Admin: 11/20/19 05:50 Dose: 400 mg Guaifenesin (Mucinex -) 600 mg PO DAILY [facility] Last Admin: 11/19/19 10:43 Dose: 600 mg Hydroxychloroquine Sulfate (Plaquenil -) 200 mg PO DAILY [facility] Last Admin: 11/19/19 10:44 Dose: 200 mg Lidocaine (Lidoderm Patch -) 1 patch TP DAILY [facility] Last Admin: 11/19/19 10:44 Dose: 1 patch Metoprolol Tartrate (Lopressor -) 50 mg PO BID [facility] Last Admin: 11/19/19 22:36 Dose: 50 mg Miscellaneous (Lidoderm Patch Removal) 1 each MC DAILY@2200 [facility] Last Admin: 11/19/19 23:50 Dose: Not Given Nystatin (Nystop Powder -) 1 applic TP TID PRN PRN Reason: DRY SKIN Last Admin: 11/16/19 10:09 Dose: 1 applic Nystatin (Mycostatin Cream -) 1 applic TP BID [facility] Last Admin: 11/19/19 22:36 Dose: 1 applic Oxycodone HCl (Roxicodone -) 5 mg PO Q6H PRN PRN Reason: PAIN LEVEL 7 - 10 Last Admin: 11/19/19 18:01 Dose: 5 mg Polyethylene Glycol (Miralax (For Daily Use) -) 17 gm PO DAILY [facility] Last Admin: 11/19/19 11:17 Dose: 17 gm Triamcinolone Acetonide (Aristocort 0.1% Lotion -) 1 applic TP BID [facility] Last Admin: 11/19/19 22:37 Dose: 1 applic - Objective Vital Signs: Vital Signs Temperature 97.9 F 11/20/19 05:59 Pulse Rate 71 11/20/19 05:59 Respiratory Rate 20 11/20/19 05:59 Blood Pressure 122/61 11/20/19 05:59 O2 Sat by Pulse Oximetry (%) 96 11/19/19 09:00 Additional Findings/Remarks: Constitutional: Yes: No Distress, Obese Eyes: Yes: WNL, Conjunctiva Clear, EOM Intact HENT: Yes: WNL, Atraumatic, Normocephalic Neck: Yes: WNL, Supple, Trachea Midline Cardiovascular: Yes: WNL, Regular Rate and Rhythm Respiratory: Yes: WNL, Regular, CTA Bilaterally Gastrointestinal: Yes: WNL, Normal Bowel Sounds ...Rectal Exam: Yes: Deferred Renal/: Yes: Incontinence Breast(s): Yes: WNL Musculoskeletal: Yes: Muscle Weakness Extremities: Yes: Erythema (LLE with chronic venous stasis/cellulitic changes, scaling skin, LLE warm, swollen on foot and part of anterior thigh, bilateral knee replacement scars. macular rash to forearms, back or upper arms and chest Edema: Yes Edema: LLE: 2+, RLE: 2+ Peripheral Pulses WNL: No Peripheral Pulses: Left Radial: 2+, Right Radial: 2+, Left Doralis Pedis: 1+, Right Dorsalis Pedis: 1+, Left Femoral: 1+, Right Femoral: 1+ Integumentary: Yes: Rash (tender over region of well-demarcated warm erythema extending along the edge of pt pannis) Neurological: Yes: WNL, Alert, Oriented ...Motor Strength: LUE (genralized weakness), LLE, RUE, RLE Psychiatric: Yes: WNL Labs: INR, PTT INR 1.34 (0.83-1.09) H 11/13/19 15:00 Problem List - Problems (1) Spinal stenosis Assessment/Plan: takes tylenol/percocet at home PT following Code(s): M48.00 - SPINAL STENOSIS, SITE UNSPECIFIED (2) MRSA cellulitis Assessment/Plan: recent history of MRSA clearing with axtreonam and daptomycin Dr Lee following abx stopped d/t possible drug reaction continue to monitor off can be dc'd home when cleared by ID Code(s): L03.90 - CELLULITIS, UNSPECIFIED; B95.62 - METHICILLIN RESIS STAPH INFCT CAUSING DISEASES CLASSD ELSWHR (3) COPD (chronic obstructive pulmonary disease) Assessment/Plan: O2 dependent at home supplemental O2 to mainatin SPO@ >88% c/w levabuterol nebs used on previous admission Code(s): J44.9 - CHRONIC OBSTRUCTIVE PULMONARY DISEASE, UNSPECIFIED (4) On home oxygen therapy Assessment/Plan: maintain SPO2 >88% Code(s): Z99.81 - DEPENDENCE ON SUPPLEMENTAL OXYGEN (5) Cellulitis Assessment/Plan: Dr Lee following axtreonam & linezolid stopped d/t possible drug rx wound care to LE Code(s): L03.90 - CELLULITIS, UNSPECIFIED Qualifiers: Site of cellulitis: trunk Site of cellulitis of trunk: abdominal wall Qualified Code(s): L03.311 - Cellulitis of abdominal wall (6) Afib Assessment/Plan: rate controlled c/w home diltiazem c/w apixiban Code(s): I48.91 - UNSPECIFIED ATRIAL FIBRILLATION (7) Diastolic CHF Assessment/Plan: c/w lasix Code(s): I50.30 - UNSPECIFIED DIASTOLIC (CONGESTIVE) HEART FAILURE Qualifiers: Heart failure chronicity: chronic Qualified Code(s): I50.32 - Chronic diastolic (congestive) heart failure (8) HLD (hyperlipidemia) Assessment/Plan: c/w atorvastatin Code(s): E78.5 - HYPERLIPIDEMIA, UNSPECIFIED (9) HTN (hypertension) Assessment/Plan: c/w diltiazem c/w metoprolol Code(s): I10 - ESSENTIAL (PRIMARY) HYPERTENSION (10) Lymphedema of both lower extremities Code(s): I89.0 - LYMPHEDEMA, NOT ELSEWHERE CLASSIFIED (11) Obesity Assessment/Plan: weight loss counseling PT request placed Code(s): E66.9 - OBESITY, UNSPECIFIED Qualifiers: Obesity type: with alveolar hypoventilation Obesity classification: adult class 3 (BMI >= 40) Serious obesity comorbidity presence: with serious comorbidity Body mass index: BMI 40.0-44.9 Qualified Code(s): E66.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 (12) Sjogrens syndrome Assessment/Plan: c/w plaquenil Code(s): M35.00 - SICCA SYNDROME, UNSPECIFIED (13) Venous stasis dermatitis Assessment/Plan: c/w aquophor -home use c/w triamcinolone cream bid Code(s): I87.2 - VENOUS INSUFFICIENCY (CHRONIC) (PERIPHERAL) Qualifiers: Laterality: bilateral Qualified Code(s): I87.2 - Venous insufficiency ( chronic) (peripheral) (14) Prophylactic measure Assessment/Plan: FEN tolerating po monitor electrolytes low sodium diet DVT apixaban Dispo maintain as inpatient discharge planning to home with VNS services full code Code(s): Z29.9 - ENCOUNTER FOR PROPHYLACTIC MEASURES, UNSPECIFIED (15) Chronic depression Assessment/Plan: on wellbutrin at home held while on linezolid-can restart tomorrow Code(s): F32.9 - MAJOR DEPRESSIVE DISORDER, SINGLE EPISODE, UNSPECIFIED (16) [place]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 Lancaster in the past , who did not lower extremity findings were contributory to her sepsis on recent presentation. 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 Code(s): L98.8 - OT DISRD OF THE SKIN AND SUBCUTANEOUS TISSUE Visit type - Emergency Visit Emergency Visit: Yes ED Registration Date: 11/13/19 Care time: The patient presented to the Emergency Department on the above date and was hospitalized for further evaluation of their emergent condition. - New Patient This patient is new to me today: No - Critical Care Critical Care patient: No - Discharge Referral Referred to [facility] Med P.C.: No
[2019-11-20 08:24] LABS: BASO % 0.3 % (0-2.0); EOS % 1.2 % (0-4.5); HEMOGLOBIN 12.6 GM/dL (10.7-15.3); LYMPH % 18.4 % (8-40); MCH 25.2 pg (25.7-33.7); MCHC 31.6 g/dl (32.0-36.0); MEAN CELL VOLUME 79.8 fl (80-96); MEAN PLT VOLUME 7.5 fl (7.5-11.1); MONO % 7.1 % (3.8-10.2); PLATELET COUNT 213 K/MM3 (134-434); RBC 5.01 M/mm3 (3.60-5.2); RDW 16.4 % (11.6-15.6); WHITE BLOOD COUNT 5.6 K/mm3 (4.0-10.0)
[2019-11-20 08:50] LABS: ALBUMIN 2.6 g/dl (3.4-5.0); BILIRUBIN,TOTAL 0.2 mg/dL (0.2-1); BLOOD UREA NITROGEN 16.4 mg/dL (7-18); CALCIUM 8.6 mg/dL (8.5-10.1); CREATININE 0.4 mg/dL (0.55-1.3); POTASSIUM 3.8 mmol/L (3.5-5.1); TOT PROT 5.7 g/dl (6.4-8.2)
[2019-11-20] MEDS: ASCORBIC ACID 500 MG TABLET (FP) PO SCH (10:01)
[2019-11-20] MEDS: HYDROXYCHLOROQUINE SO4 200 MG TABLET (FP) PO SCH (10:01)
[2019-11-20] MEDS: METOPROLOL TARTRATE 50 MG TABLET (FP) PO SCH ×2 (10:01→21:33)
[2019-11-20] MEDS: APIXABAN 5 MG TABLET PO SCH ×2 (10:02→21:33)
[2019-11-20] MEDS: guaiFENesin 600 MG TABLET.ER (FP) PO SCH (10:02)
[2019-11-20] MEDS: CYANOCOBALAMIN 1,000 MCG TABLET (FP) PO SCH (10:02)
[2019-11-20] MEDS: CHOLECALCIFEROL (VIT D3) 1,000 UNIT (25 MCG) TABLET PO SCH (10:02)
[2019-11-20] MEDS: TRIAMCINOLONE ACET 0.1% 60 ML LOTION TP SCH ×2 (10:03→21:32)
[2019-11-20] MEDS: MINERAL OIL/PET HY-PHL TOPICAL OINTMENT 454 GM JAR TP SCH ×2 (10:03→21:31)
[2019-11-20] MEDS: LIDOCAINE 5% TOPICAL PATCH TP SCH (10:04)
[2019-11-20] MEDS: NYSTATIN 100,000 UNIT/GM TOPICAL CREAM 15 GM TUBE TP SCH ×2 (10:04→21:32)
[2019-11-20] MEDS: POLYETHYLENE GLYCOL 3350 119 GM BTL PO SCH (10:30)
--- NOTE | 2019-11-20 12:46 | PN ---
Progress Note (short form) - Note Progress Note: Still with itching and rash. No CP or SOB. No acute events overnight. Intake & Output 11/17/19 11/18/19 11/19/19 11/20/19 23:59 23:59 23:59 23:59 Intake Total 1300 1290 100 0 Output Total 2000 800 2200 Balance -700 490 -2100 0 Weight 246 lb 7 oz 246 lb 11.2 oz 248 lb 14.4 oz Last Vital Signs Temp Pulse Resp BP Pulse Ox 97.9 F 71 20 122/61 96 11/20/19 05:59 11/20/19 05:59 11/20/19 05:59 11/20/19 05:59 11/19/19 09:00 Home Medication List Medication Instructions Recorded Confirmed Type Acetaminophen [Tylenol Extra 500 mg PO Q6H PRN 10/25/19 11/13/19 History Strength] Apixaban [Eliquis -] 5 mg PO BID 10/25/19 11/13/19 History Ascorbate Calcium [Vitamin C] 1,000 mg PO DAILY 10/25/19 11/13/19 History Bupropion HCl [Bupropion Xl] 150 mg PO DAILY 10/25/19 11/13/19 History Cholecalciferol (Vitamin D3) 1,000 unit PO DAILY 10/25/19 11/13/19 History [Vitamin D3] Cyanocobalamin [Vitamin B12 -] 1,000 mcg PO DAILY 10/25/19 11/13/19 History Diltiazem Cd [Cardizem Cd -] 360 mg PO DAILY 10/25/19 11/13/19 History Furosemide [Lasix -] 60 mg PO BID 10/25/19 11/13/19 History Gabapentin [Neurontin -] 400 mg PO Q8H 10/25/19 11/13/19 History Guaifenesin [Mucinex] 600 mg PO DAILY 10/25/19 11/13/19 History Hydroxychloroquine So4 [Plaquenil 200 mg PO DAILY 10/25/19 11/13/19 History -] Levalbuterol HCl [Xopenex] 0.31 mg IH Q8H PRN 10/25/19 11/13/19 History Metoprolol Tartrate 50 mg PO BID 10/25/19 11/13/19 History Mineral Oil/Pet Hy-Phl [Aquaphor -] 1 applic TP DAILY 10/25/19 11/13/19 History Nystatin Powder [Nystop Powder -] 60 gm TP TID PRN 10/25/19 11/13/19 History Oxycodone HCl/Acetaminophen 1 tablet PO QID PRN 10/25/19 11/13/19 History [Percocet 5-325 mg Tablet] Polyethylene Glycol 3350 17 gm PO DAILY 10/25/19 11/13/19 History Ranitidine HCl 150 mg PO HS 10/25/19 11/13/19 History Simvastatin 10 mg PO HS 10/25/19 11/13/19 History Active Medications Generic Name Dose Route Start Last Admin Trade Name Freq PRN Reason Stop Dose Admin Acetaminophen 500 mg 11/13/19 18:28 11/19/19 22:35 Tylenol - PO 500 mg Q6H PRN Administration PAIN LEVEL 1-5 Apixaban 5 mg 11/13/19 22:00 11/20/19 10:02 Eliquis - PO 5 mg BID [facility] Administration Ascorbic Acid 500 mg 11/14/19 10:00 11/20/19 10:01 Vitamin C - PO 500 mg DAILY [facility] Administration Atorvastatin Calcium 40 mg 11/13/19 22:00 11/19/19 22:36 Lipitor - PO 40 mg HS [facility] Administration Bupropion HCl 150 mg 11/21/19 10:00 Wellbutrin Xl - PO DAILY [facility] Cholecalciferol 1,000 unit 11/14/19 10:00 11/20/19 10:02 Vitamin D3 - PO 1,000 unit DAILY [facility] Administration Cyanocobalamin 1,000 mcg 11/14/19 10:00 11/20/19 10:02 Vitamin B12 - PO 1,000 mcg DAILY [facility] Administration Diltiazem HCl 360 mg 11/14/19 10:00 11/20/19 10:02 Cardizem Cd - PO 360 mg DAILY [facility] Administration Emollient Ointment 1 applic 11/13/19 22:00 11/20/19 10:03 Aquaphor - TP 1 applic BID [facility] Administration Famotidine 20 mg 11/13/19 22:00 11/19/19 22:35 Pepcid PO 20 mg DAILY@2200 [facility] Administration Furosemide 60 mg 11/14/19 06:00 11/20/19 05:50 Lasix - PO 60 mg BIDLASIX [facility] Administration Gabapentin 400 mg 11/13/19 19:04 11/20/19 05:50 Neurontin - PO 400 mg TID [facility] Administration Guaifenesin 600 mg 11/14/19 10:00 11/20/19 10:02 Mucinex - PO 600 mg DAILY [facility] Administration Hydroxychloroquine Sulfate 200 mg 11/14/19 10:00 11/20/19 10:01 Plaquenil - PO 200 mg DAILY [facility] Administration Lidocaine 1 patch 11/16/19 12:30 11/20/19 10:04 Lidoderm Patch - TP 1 patch DAILY [facility] Administration Metoprolol Tartrate 50 mg 11/13/19 22:00 11/20/19 10:01 Lopressor - PO 50 mg BID [facility] Administration Miscellaneous 1 each 11/16/19 22:00 11/19/19 23:50 Lidoderm Patch Removal MC Not Given DAILY@2200 [facility] Nystatin 1 applic 11/13/19 18:28 11/16/19 10:09 Nystop Powder - TP 1 applic TID PRN Administration DRY SKIN Nystatin 1 applic 11/19/19 22:00 11/20/19 10:04 Mycostatin Cream - TP 1 applic BID [facility] Administration Oxycodone HCl 5 mg 11/16/19 12:25 11/19/19 18:01 Roxicodone - PO 5 mg Q6H PRN Administration PAIN LEVEL 7 - 10 Polyethylene Glycol 17 gm 11/14/19 10:00 11/20/19 10:30 Miralax (For Daily Use) - PO Not Given DAILY [facility] Triamcinolone Acetonide 1 applic 11/19/19 12:45 11/20/19 10:03 Aristocort 0.1% Lotion - TP 1 applic BID [facility] Administration Constitutional: Yes: NAD Eyes: Yes: EOM Intact HENT: Yes: Normocephalic Neck: Yes: Trachea Midline Cardiovascular: Yes: Regular Rate and Rhythm Respiratory: Yes: Diminished Gastrointestinal: Yes: Normal Bowel Sounds Extremities: Yes: Other (CELLULITIS) Labs: Laboratory Results - last 24 hr 11/20/19 11/20/19 07:13 07:13 WBC 5.6 RBC 5.01 Hgb 12.6 Hct 40.0 MCV 79.8 L MCH 25.2 L MCHC 31.6 L RDW 16.4 H Plt Count 213 MPV 7.5 Absolute Neuts (auto) 4.1 Neutrophils % 73.0 Lymphocytes % 18.4 Monocytes % 7.1 Eosinophils % 1.2 D Basophils % 0.3 Nucleated RBC % 0 Sodium 140 Potassium 3.8 Chloride 95 L Carbon Dioxide 40 H Anion Gap 5 L BUN 16.4 Creatinine 0.4 L Est GFR (CKD-EPI)AfAm 120.60 Est GFR (CKD-EPI)NonAf 104.06 Random Glucose 96 Calcium 8.6 Magnesium 2.0 Total Bilirubin 0.2 AST 16 ALT 18 Alkaline Phosphatase 106 Total Protein 5.7 L Albumin 2.6 L Problem List - Problems (1) COPD (chronic obstructive pulmonary disease) Code(s): J44.9 - CHRONIC OBSTRUCTIVE PULMONARY DISEASE, UNSPECIFIED (2) Cellulitis Code(s): L03.90 - CELLULITIS, UNSPECIFIED Qualifiers: Site of cellulitis: trunk Site of cellulitis of trunk: abdominal wall Qualified Code(s): L03.311 - Cellulitis of abdominal wall (3) Chronic depression Code(s): F32.9 - MAJOR DEPRESSIVE DISORDER, SINGLE EPISODE, UNSPECIFIED (4) MRSA cellulitis Code(s): L03.90 - CELLULITIS, UNSPECIFIED; B95.62 - METHICILLIN RESIS STAPH INFCT CAUSING DISEASES CLASSD ELSWHR (5) On home oxygen therapy Code(s): Z99.81 - DEPENDENCE ON SUPPLEMENTAL OXYGEN (6) Spinal stenosis Code(s): M48.00 - SPINAL STENOSIS, SITE UNSPECIFIED Assessment/Plan DIFFUSE ERYTHEMATOUS DERMATITIS COPD STABLE ON CHRONIC O2 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
--- NOTE | 2019-11-20 14:26 | PN ---
Progress Note, Physician History of Present Illness: DEVELOPED PRURITIC RASH ON FACE, CHEST ANTIBIOTICS STOPPED NO C/O ABDOMINAL OR LEG PAIN AFEBRILE BC (-) - Current Medication List Current Medications: Active Medications Acetaminophen (Tylenol -) 500 mg PO Q6H PRN PRN Reason: PAIN LEVEL 1-5 Last Admin: 11/19/19 22:35 Dose: 500 mg Apixaban (Eliquis -) 5 mg PO BID [facility] Last Admin: 11/20/19 10:02 Dose: 5 mg Ascorbic Acid (Vitamin C -) 500 mg PO DAILY [facility] Last Admin: 11/20/19 10:01 Dose: 500 mg Atorvastatin Calcium (Lipitor -) 40 mg PO HS [facility] Last Admin: 11/19/19 22:36 Dose: 40 mg Bupropion HCl (Wellbutrin Xl -) 150 mg PO DAILY [facility] Cholecalciferol (Vitamin D3 -) 1,000 unit PO DAILY [facility] Last Admin: 11/20/19 10:02 Dose: 1,000 unit Cyanocobalamin (Vitamin B12 -) 1,000 mcg PO DAILY [facility] Last Admin: 11/20/19 10:02 Dose: 1,000 mcg Diltiazem HCl (Cardizem Cd -) 360 mg PO DAILY [facility] Last Admin: 11/20/19 10:02 Dose: 360 mg Emollient Ointment (Aquaphor -) 1 applic TP BID [facility] Last Admin: 11/20/19 10:03 Dose: 1 applic Famotidine (Pepcid) 20 mg PO DAILY@2200 [facility] Last Admin: 11/19/19 22:35 Dose: 20 mg Furosemide (Lasix -) 60 mg PO BIDLASIX [facility] Last Admin: 11/20/19 13:58 Dose: 60 mg Gabapentin (Neurontin -) 400 mg PO TID [facility] Last Admin: 11/20/19 13:57 Dose: 400 mg Guaifenesin (Mucinex -) 600 mg PO DAILY [facility] Last Admin: 11/20/19 10:02 Dose: 600 mg Hydroxychloroquine Sulfate (Plaquenil -) 200 mg PO DAILY [facility] Last Admin: 11/20/19 10:01 Dose: 200 mg Lidocaine (Lidoderm Patch -) 1 patch TP DAILY [facility] Last Admin: 11/20/19 10:04 Dose: 1 patch Metoprolol Tartrate (Lopressor -) 50 mg PO BID [facility] Last Admin: 11/20/19 10:01 Dose: 50 mg Miscellaneous (Lidoderm Patch Removal) 1 each MC DAILY@2200 [facility] Last Admin: 11/19/19 23:50 Dose: Not Given Nystatin (Nystop Powder -) 1 applic TP TID PRN PRN Reason: DRY SKIN Last Admin: 11/16/19 10:09 Dose: 1 applic Nystatin (Mycostatin Cream -) 1 applic TP BID [facility] Last Admin: 11/20/19 10:04 Dose: 1 applic Oxycodone HCl (Roxicodone -) 5 mg PO Q6H PRN PRN Reason: PAIN LEVEL 7 - 10 Last Admin: 11/19/19 18:01 Dose: 5 mg Polyethylene Glycol (Miralax (For Daily Use) -) 17 gm PO DAILY [facility] Last Admin: 11/20/19 10:30 Dose: Not Given Triamcinolone Acetonide (Aristocort 0.1% Lotion -) 1 applic TP BID [facility] Last Admin: 11/20/19 10:03 Dose: 1 applic - Objective Vital Signs: Vital Signs Temperature 97.9 F 11/20/19 05:59 Pulse Rate 71 11/20/19 05:59 Respiratory Rate 20 11/20/19 05:59 Blood Pressure 122/61 11/20/19 05:59 O2 Sat by Pulse Oximetry (%) 96 11/19/19 09:00 Constitutional: Yes: No Distress Eyes: Yes: Conjunctiva Clear Cardiovascular: Yes: Regular Rate and Rhythm, S1, S2 Respiratory: Yes: CTA Bilaterally Gastrointestinal: Yes: Normal Bowel Sounds, Soft. No: Tenderness Integumentary: Yes: Other (BLOTCHY RASH ON FACE, UPPER CHEST ERYTHEMA L LE, ABDO NEARLY ALL RESOLVED) Labs: CBC, BMP 11/20/19 07:13 11/20/19 07:13 INR, PTT INR 1.34 (0.83-1.09) H 11/13/19 15:00 Assessment/Plan RECURRENT CELLULITIS v. STEROID RESPONSIVE DERMATITIS IMPROVED ? DRUG RASH MULTIPLE ANTIBIOTIC ALLERGIES OBSERVE OFF ANTIBIOTICS PT NEEDS DERMATOLOGY EVALUATION
[2019-11-20 15:22] VITALS: BMI 38.8
[2019-11-20] MEDS: HYDROCORTISONE 2.5% LOTION - 1 BOTTLE TP SCH (21:32)
[2019-11-20] MEDS: ACETAMINOPHEN 500 MG TABLET (FP) PO PRN (21:33)
[2019-11-20] MEDS: ATORVASTATIN CA 40 MG TABLET (FP) PO SCH (21:33)
[2019-11-20] MEDS: LIDOCAINE PATCH REMOVAL MC SCH (21:34)
[2019-11-20] MEDS: FAMOTIDINE 40 MG/5 ML ORAL SUSPENSION PO SCH (21:34)
[2019-11-21] MEDS: FUROSEMIDE 20 MG TABLET (FP) PO SCH ×2 (06:29→14:57)
[2019-11-21] MEDS: GABAPENTIN 400 MG CAPSULE (FP) PO SCH ×3 (06:29→21:49)
[2019-11-21 08:33] LABS: BASO % 0.4 % (0-2.0); EOS % 6.9 % (0-4.5); HEMATOCRIT 42.7 % (32.4-45.2); HEMOGLOBIN 13.1 GM/dL (10.7-15.3); LYMPH % 34.1 % (8-40); MCH 25.2 pg (25.7-33.7); MCHC 30.8 g/dl (32.0-36.0); MEAN PLT VOLUME 7.4 fl (7.5-11.1); MONO % 9.9 % (3.8-10.2); NEUT % 48.7 % (42.8-82.8); PLATELET COUNT 198 K/MM3 (134-434); RBC 5.21 M/mm3 (3.60-5.2); RDW 16.6 % (11.6-15.6); WHITE BLOOD COUNT 5.3 K/mm3 (4.0-10.0)
[2019-11-21 09:45] LABS: ALBUMIN 2.7 g/dl (3.4-5.0); BILIRUBIN,TOTAL 0.2 mg/dL (0.2-1); CALCIUM 8.4 mg/dL (8.5-10.1); CREATININE 0.5 mg/dL (0.55-1.3); TOT PROT 5.9 g/dl (6.4-8.2)
--- NOTE | 2019-11-21 09:59 | PN ---
Progress Note (short form) - Note Progress Note: Some cough with yellowish sputum. No CP or SOB. No acute events overnight. Intake & Output 11/18/19 11/19/19 11/20/19 11/21/19 23:59 23:59 23:59 23:59 Intake Total 1290 100 0 0 Output Total 800 2200 Balance 490 -2100 0 0 Weight 246 lb 7 oz 246 lb 11.2 oz 248 lb 249 lb 8 oz Last Vital Signs Temp Pulse Resp BP Pulse Ox 97.4 F L 60 20 138/58 L 98 11/21/19 06:36 11/21/19 06:36 11/21/19 06:36 11/21/19 06:36 11/20/19 09:00 Active Medications Acetaminophen (Tylenol -) 500 mg PO Q6H PRN PRN Reason: PAIN LEVEL 1-5 Last Admin: 11/20/19 21:33 Dose: 500 mg Apixaban (Eliquis -) 5 mg PO BID [facility] Last Admin: 11/20/19 21:33 Dose: 5 mg Ascorbic Acid (Vitamin C -) 500 mg PO DAILY [facility] Last Admin: 11/20/19 10:01 Dose: 500 mg Atorvastatin Calcium (Lipitor -) 40 mg PO HS [facility] Last Admin: 11/20/19 21:33 Dose: 40 mg Bupropion HCl (Wellbutrin Xl -) 150 mg PO DAILY [facility] Cholecalciferol (Vitamin D3 -) 1,000 unit PO DAILY [facility] Last Admin: 11/20/19 10:02 Dose: 1,000 unit Cyanocobalamin (Vitamin B12 -) 1,000 mcg PO DAILY [facility] Last Admin: 11/20/19 10:02 Dose: 1,000 mcg Diltiazem HCl (Cardizem Cd -) 360 mg PO DAILY [facility] Last Admin: 11/20/19 10:02 Dose: 360 mg Emollient Ointment (Aquaphor -) 1 applic TP BID [facility] Last Admin: 11/20/19 21:31 Dose: 1 applic Famotidine (Pepcid) 20 mg PO DAILY@2200 [facility] Last Admin: 11/20/19 21:34 Dose: 20 mg Furosemide (Lasix -) 60 mg PO BIDLASIX [facility] Last Admin: 11/21/19 06:29 Dose: 60 mg Gabapentin (Neurontin -) 400 mg PO TID [facility] Last Admin: 11/21/19 06:29 Dose: 400 mg Guaifenesin (Mucinex -) 600 mg PO DAILY [facility] Last Admin: 11/20/19 10:02 Dose: 600 mg Hydrocortisone (Hytone 2.5% Lotion -) 1 applic TP BID [facility] Last Admin: 11/20/19 21:32 Dose: 1 applic Hydroxychloroquine Sulfate (Plaquenil -) 200 mg PO DAILY [facility] Last Admin: 11/20/19 10:01 Dose: 200 mg Lidocaine (Lidoderm Patch -) 1 patch TP DAILY [facility] Last Admin: 11/20/19 10:04 Dose: 1 patch Metoprolol Tartrate (Lopressor -) 50 mg PO BID [facility] Last Admin: 11/20/19 21:33 Dose: 50 mg Miscellaneous (Lidoderm Patch Removal) 1 each MC DAILY@2200 [facility] Last Admin: 11/20/19 21:34 Dose: Not Given Nystatin (Nystop Powder -) 1 applic TP TID PRN PRN Reason: DRY SKIN Last Admin: 11/16/19 10:09 Dose: 1 applic Nystatin (Mycostatin Cream -) 1 applic TP BID [facility] Last Admin: 11/20/19 21:32 Dose: 1 applic Oxycodone HCl (Roxicodone -) 5 mg PO Q6H PRN PRN Reason: PAIN LEVEL 7 - 10 Last Admin: 11/19/19 18:01 Dose: 5 mg Polyethylene Glycol (Miralax (For Daily Use) -) 17 gm PO DAILY [facility] Last Admin: 11/20/19 10:30 Dose: Not Given Triamcinolone Acetonide (Aristocort 0.1% Lotion -) 1 applic TP BID [facility] Last Admin: 11/20/19 21:32 Dose: 1 applic Constitutional: Yes: NAD Eyes: Yes: EOM Intact HENT: Yes: Normocephalic Neck: Yes: Trachea Midline Cardiovascular: Yes: Regular Rate and Rhythm Respiratory: Yes: Bilateral scattered rhonchi, diminished at the bases Gastrointestinal: Yes: Normal Bowel Sounds Extremities: Yes: Other, wrapped Labs: Laboratory Results - last 24 hr 11/21/19 11/21/19 08:00 08:00 WBC 5.3 RBC 5.21 H Hgb 13.1 Hct 42.7 MCV 82.0 MCH 25.2 L MCHC 30.8 L RDW 16.6 H Plt Count 198 MPV 7.4 L Absolute Neuts (auto) 2.6 Neutrophils % 48.7 D Lymphocytes % 34.1 D Monocytes % 9.9 Eosinophils % 6.9 H D Basophils % 0.4 Nucleated RBC % 0 Sodium 141 Potassium 4.0 Chloride 96 L Carbon Dioxide 34 H Anion Gap 10 BUN 20.0 H Creatinine 0.5 L Est GFR (CKD-EPI)AfAm 112.07 Est GFR (CKD-EPI)NonAf 96.69 Random Glucose 78 Calcium 8.4 L Magnesium 2.0 Total Bilirubin 0.2 AST 15 ALT 21 Alkaline Phosphatase 98 Total Protein 5.9 L Albumin 2.7 L Problem List - Problems (1) COPD (chronic obstructive pulmonary disease) Code(s): J44.9 - CHRONIC OBSTRUCTIVE PULMONARY DISEASE, UNSPECIFIED (2) Cellulitis Code(s): L03.90 - CELLULITIS, UNSPECIFIED Qualifiers: Site of cellulitis: trunk Site of cellulitis of trunk: abdominal wall Qualified Code(s): L03.311 - Cellulitis of abdominal wall (3) Chronic depression Code(s): F32.9 - MAJOR DEPRESSIVE DISORDER, SINGLE EPISODE, UNSPECIFIED (4) MRSA cellulitis Code(s): L03.90 - CELLULITIS, UNSPECIFIED; B95.62 - METHICILLIN RESIS STAPH INFCT CAUSING DISEASES CLASSD ELSWHR (5) On home oxygen therapy Code(s): Z99.81 - DEPENDENCE ON SUPPLEMENTAL OXYGEN (6) Spinal stenosis Code(s): M48.00 - SPINAL STENOSIS, SITE UNSPECIFIED Assessment/Plan DIFFUSE ERYTHEMATOUS DERMATITIS COPD STABLE ON CHRONIC O2 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
[2019-11-21] MEDS ORDERED: PT OWN MED DRAWER 7, Y5N ONE ×2 (10:13→21:44)
[2019-11-21] MEDS: CYANOCOBALAMIN 1,000 MCG TABLET (FP) PO SCH (10:19)
[2019-11-21] MEDS: HYDROXYCHLOROQUINE SO4 200 MG TABLET (FP) PO SCH (10:19)
[2019-11-21] MEDS: APIXABAN 5 MG TABLET PO SCH ×2 (10:19→21:49)
[2019-11-21] MEDS: ASCORBIC ACID 500 MG TABLET (FP) PO SCH (10:19)
[2019-11-21] MEDS: METOPROLOL TARTRATE 50 MG TABLET (FP) PO SCH ×2 (10:19→21:49)
[2019-11-21] MEDS: CHOLECALCIFEROL (VIT D3) 1,000 UNIT (25 MCG) TABLET PO SCH (10:19)
[2019-11-21] MEDS: POLYETHYLENE GLYCOL 3350 119 GM BTL PO SCH (10:20)
[2019-11-21] MEDS: guaiFENesin 600 MG TABLET.ER (FP) PO SCH (10:20)
[2019-11-21] MEDS: LIDOCAINE 5% TOPICAL PATCH TP SCH (10:21)
[2019-11-21] MEDS: MINERAL OIL/PET HY-PHL TOPICAL OINTMENT 454 GM JAR TP SCH ×2 (10:23→21:50)
[2019-11-21] MEDS: TRIAMCINOLONE ACET 0.1% 60 ML LOTION TP SCH ×2 (10:24→21:51)
[2019-11-21] MEDS: HYDROCORTISONE 2.5% LOTION - 1 BOTTLE TP SCH ×2 (10:24→21:55)
[2019-11-21] MEDS: NYSTATIN 100,000 UNIT/GM TOPICAL CREAM 15 GM TUBE TP SCH (10:24)
[2019-11-21] MEDS: NYSTATIN POWDER 100,000 UNITS/GM - 15 GM TOPICAL POWDER TP PRN (10:25)
--- NOTE | 2019-11-21 14:33 | PN ---
Physical Exam: SUBJECTIVE: Patient seen and examined, denies any shortness of breath or malaise. feels better. OBJECTIVE: Patient is a 74F PMH chronic venous stasis ulcers, COPD (on home oxygen), CHF, Atrial Fibrillation (on Eliquis), Diabetes Mellitus, HTN, Srojen's disease, spinal stenosis, arthritis, MRSA+ cellulitis presents from home with concern for evolving cellulitis noticed by visiting nurse. Patient with multiple admissions for recurrent cellulitis. Vital Signs Period Temp Pulse Resp BP Sys/William Pulse Ox Last 24 Hr 97.4 F-97.7 F 54-60 20-20 110-138/54-61 GENERAL: The patient is awake, alert, and fully oriented, in no acute distress. HEAD: Normal with no signs of trauma. EYES: PERRL, extraocular movements intact, sclera anicteric, conjunctiva clear. No ptosis. ENT: Ears normal, nares patent, oropharynx clear without exudates, moist mucous membranes. NECK: Trachea midline, full range of motion, supple. LUNGS: mild wheezing of upper lobes. stable oxygen saturations. HEART: Regular rate and rhythm, S1, S2 without murmur, rub or gallop. ABDOMEN: Soft, nontender, nondistended, normoactive bowel sounds EXTREMITIES:Bilateral lower extremity cellulitis left lower extremity greater than right NEUROLOGICAL: Normal speech, gait not observed. PSYCH: Normal mood, normal affect. SKIN: improvement of bilateral arm blotches and left upper chest, hyperpigmentation of left leg below knee to foot, scattered redness/raised that covers the left knee. right leg with dry scaly skin and discoloration (wrapped) . raised red rash across lower abdomen (improved). Laboratory Results - last 24 hr 11/21/19 11/21/19 08:00 08:00 WBC 5.3 RBC 5.21 H Hgb 13.1 Hct 42.7 MCV 82.0 MCH 25.2 L MCHC 30.8 L RDW 16.6 H Plt Count 198 MPV 7.4 L Absolute Neuts (auto) 2.6 Neutrophils % 48.7 D Lymphocytes % 34.1 D Monocytes % 9.9 Eosinophils % 6.9 H D Basophils % 0.4 Nucleated RBC % 0 Sodium 141 Potassium 4.0 Chloride 96 L Carbon Dioxide 34 H Anion Gap 10 BUN 20.0 H Creatinine 0.5 L Est GFR (CKD-EPI)AfAm 112.07 Est GFR (CKD-EPI)NonAf 96.69 Random Glucose 78 Calcium 8.4 L Magnesium 2.0 Total Bilirubin 0.2 AST 15 ALT 21 Alkaline Phosphatase 98 Total Protein 5.9 L Albumin 2.7 L Active Medications Generic Name Dose Route Start Last Admin Trade Name Freq PRN Reason Stop Dose Admin Acetaminophen 500 mg 11/13/19 18:28 11/20/19 21:33 Tylenol - PO 500 mg Q6H PRN Administration PAIN LEVEL 1-5 Apixaban 5 mg 11/13/19 22:00 11/21/19 10:19 Eliquis - PO 5 mg BID BELL Administration Ascorbic Acid 500 mg 11/14/19 10:00 11/21/19 10:19 Vitamin C - PO 500 mg DAILY BELL Administration Atorvastatin Calcium 40 mg 11/13/19 22:00 11/20/19 21:33 Lipitor - PO 40 mg HS BELL Administration Bupropion HCl 150 mg 11/21/19 10:00 11/21/19 10:19 Wellbutrin Xl - PO 150 mg DAILY BELL Administration Cholecalciferol 1,000 unit 11/14/19 10:00 11/21/19 10:19 Vitamin D3 - PO 1,000 unit DAILY BELL Administration Cyanocobalamin 1,000 mcg 11/14/19 10:00 11/21/19 10:19 Vitamin B12 - PO 1,000 mcg DAILY BELL Administration Diltiazem HCl 360 mg 11/14/19 10:00 11/21/19 10:20 Cardizem Cd - PO 360 mg DAILY BELL Administration Emollient Ointment 1 applic 11/13/19 22:00 11/21/19 10:23 Aquaphor - TP 1 applic BID BELL Administration Famotidine 20 mg 11/13/19 22:00 11/20/19 21:34 Pepcid PO 20 mg DAILY@2200 BELL Administration Furosemide 60 mg 11/14/19 06:00 11/21/19 06:29 Lasix - PO 60 mg BIDLASIX BELL Administration Gabapentin 400 mg 11/13/19 19:04 11/21/19 06:29 Neurontin - PO 400 mg TID BELL Administration Guaifenesin 600 mg 11/14/19 10:00 11/21/19 10:20 Mucinex - PO 600 mg DAILY BELL Administration Hydrocortisone 1 applic 11/20/19 22:00 11/21/19 10:24 Hytone 2.5% Lotion - TP 1 applic BID BELL Administration Hydroxychloroquine Sulfate 200 mg 11/14/19 10:00 11/21/19 10:19 Plaquenil - PO 200 mg DAILY BELL Administration Lidocaine 1 patch 11/16/19 12:30 11/21/19 10:21 Lidoderm Patch - TP 1 patch DAILY BELL Administration Metoprolol Tartrate 50 mg 11/13/19 22:00 11/21/19 10:19 Lopressor - PO 50 mg BID BELL Administration Miscellaneous 1 each 11/16/19 22:00 11/20/19 21:34 Lidoderm Patch Removal MC Not Given DAILY@2200 BELL Nystatin 1 applic 11/13/19 18:28 11/21/19 10:25 Nystop Powder - TP 1 applic TID PRN Administration DRY SKIN Nystatin 1 applic 11/19/19 22:00 11/21/19 10:24 Mycostatin Cream - TP 1 applic BID BELL Administration Oxycodone HCl 5 mg 11/16/19 12:25 11/19/19 18:01 Roxicodone - PO 5 mg Q6H PRN Administration PAIN LEVEL 7 - 10 Polyethylene Glycol 17 gm 11/14/19 10:00 11/21/19 10:20 Miralax (For Daily Use) - PO Not Given DAILY [facility] Triamcinolone Acetonide 1 applic 11/19/19 12:45 11/21/19 10:24 Aristocort 0.1% Lotion - TP 1 applic BID BELL Administration ASSESSMENT/PLAN: Problem List - Problems (1) Cellulitis Assessment/Plan: Dr Lee following for recurrent bilateral lower ext cellulitis Patient on axtreonam & linezolid, but discontinued after she developed bilateral arm redness/hives. no wheezing or airway compromise. discussed with dermatology and no interventions for biopsy planned at this time. recommendations by dermatology carried out. Monitor off antibiotics given benadryl, prednisone with improvement wound care to LE with dressings of right leg elevated legs while in bed Code(s): L03.90 - CELLULITIS, UNSPECIFIED Qualifiers: Site of cellulitis: trunk Site of cellulitis of trunk: abdominal wall Qualified Code(s): L03.311 - Cellulitis of abdominal wall (2) MRSA cellulitis Assessment/Plan: recent history of MRSA maintain contact precautions Code(s): L03.90 - CELLULITIS, UNSPECIFIED; B95.62 - METHICILLIN RESIS STAPH INFCT CAUSING DISEASES CLASSD ELSWHR (3) COPD (chronic obstructive pulmonary disease) Assessment/Plan: continue home inhalers on xopenex Code(s): J44.9 - CHRONIC OBSTRUCTIVE PULMONARY DISEASE, UNSPECIFIED (4) Chronic depression Assessment/Plan: continue home meds supportive care on wellbutrin at home Code(s): F32.9 - MAJOR DEPRESSIVE DISORDER, SINGLE EPISODE, UNSPECIFIED (5) On home oxygen therapy Assessment/Plan: tolerating room air, and prn oxygen @ 2 liters. 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 discussed today with derm and recommendations carried out. Code(s): L98.8 - OTH DISRD OF THE SKIN AND SUBCUTANEOUS TISSUE (8) Atrial fibrillation Assessment/Plan: rate controlled c/w home diltiazem c/w apixiban Code(s): I48.91 - UNSPECIFIED ATRIAL FIBRILLATION Qualifiers: Atrial fibrillation type: permanent Qualified Code(s): I48.21 - Permanent atrial fibrillation (9) Diastolic CHF Assessment/Plan: on lasix bid check electrolytes in a.m. Code(s): I50.30 - UNSPECIFIED DIASTOLIC (CONGESTIVE) HEART FAILURE Qualifiers: Heart failure chronicity: chronic Qualified Code(s): I50.32 - Chronic diastolic (congestive) heart failure (10) Sjogrens syndrome Code(s): M35.00 - SICCA SYNDROME, UNSPECIFIED (11) Prophylactic measure Assessment/Plan: FEN tolerating po monitor electrolytes low sodium diet DVT apixaban Dispo maintain as inpatient discharge planning full code Code(s): Z29.9 - ENCOUNTER FOR PROPHYLACTIC MEASURES, UNSPECIFIED Visit type - Emergency Visit Emergency Visit: Yes ED Registration Date: 11/13/19 Care time: The patient presented to the Emergency Department on the above date and was hospitalized for further evaluation of their emergent condition. - New Patient This patient is new to me today: No - Critical Care Critical Care patient: No - Discharge Referral Referred to [facility] Med P.C.: No
[2019-11-21] MEDS: FAMOTIDINE 40 MG/5 ML ORAL SUSPENSION PO SCH (21:49)
[2019-11-21] MEDS: ATORVASTATIN CA 40 MG TABLET (FP) PO SCH (21:49)
[2019-11-22] MEDS: oxyCODONE HCL 5 MG TABLET PO PRN (04:20)
[2019-11-22] MEDS: ACETAMINOPHEN 500 MG TABLET (FP) PO PRN (04:20)
[2019-11-22] MEDS: LIDOCAINE PATCH REMOVAL MC SCH (04:25)
[2019-11-22] MEDS: NYSTATIN 100,000 UNIT/GM TOPICAL CREAM 15 GM TUBE TP SCH ×2 (04:25→10:14)
[2019-11-22] MEDS: GABAPENTIN 400 MG CAPSULE (FP) PO SCH (07:28)
[2019-11-22] MEDS: FUROSEMIDE 20 MG TABLET (FP) PO SCH (07:29)
--- NOTE | 2019-11-22 09:48 | PN ---
Progress Note (short form) - Note Progress Note: Less cough with yellowish sputum. No CP or SOB. No acute events overnight. Intake & Output 11/19/19 11/20/19 11/21/19 11/22/19 23:59 23:59 23:59 23:59 Intake Total 100 0 550 Output Total 2200 700 Balance -2100 0 -150 Weight 246 lb 11.2 oz 248 lb 249 lb 8 oz 244 lb 9.6 oz Last Vital Signs Temp Pulse Resp BP Pulse Ox 98 F 60 15 122/80 96 11/21/19 16:20 11/21/19 22:00 11/21/19 22:00 11/21/19 22:00 11/21/19 21:00 Active Medications Acetaminophen (Tylenol -) 500 mg PO Q6H PRN PRN Reason: PAIN LEVEL 1-5 Last Admin: 11/22/19 04:20 Dose: 500 mg Apixaban (Eliquis -) 5 mg PO BID [facility] Last Admin: 11/21/19 21:49 Dose: 5 mg Ascorbic Acid (Vitamin C -) 500 mg PO DAILY [facility] Last Admin: 11/21/19 10:19 Dose: 500 mg Atorvastatin Calcium (Lipitor -) 40 mg PO HS [facility] Last Admin: 11/21/19 21:49 Dose: 40 mg Bupropion HCl (Wellbutrin Xl -) 150 mg PO DAILY [facility] Last Admin: 11/21/19 10:19 Dose: 150 mg Cholecalciferol (Vitamin D3 -) 1,000 unit PO DAILY [facility] Last Admin: 11/21/19 10:19 Dose: 1,000 unit Cyanocobalamin (Vitamin B12 -) 1,000 mcg PO DAILY [facility] Last Admin: 11/21/19 10:19 Dose: 1,000 mcg Diltiazem HCl (Cardizem Cd -) 360 mg PO DAILY [facility] Last Admin: 11/21/19 10:20 Dose: 360 mg Emollient Ointment (Aquaphor -) 1 applic TP BID [facility] Last Admin: 11/21/19 21:50 Dose: 1 applic Famotidine (Pepcid) 20 mg PO DAILY@2200 [facility] Last Admin: 11/21/19 21:49 Dose: 20 mg Furosemide (Lasix -) 60 mg PO BIDLASIX [facility] Last Admin: 11/22/19 07:29 Dose: Not Given Gabapentin (Neurontin -) 400 mg PO TID [facility] Last Admin: 11/22/19 07:28 Dose: 400 mg Guaifenesin (Mucinex -) 600 mg PO DAILY [facility] Last Admin: 11/21/19 10:20 Dose: 600 mg Hydrocortisone (Hytone 2.5% Lotion -) 1 applic TP BID [facility] Last Admin: 11/21/19 21:55 Dose: 1 applic Hydroxychloroquine Sulfate (Plaquenil -) 200 mg PO DAILY [facility] Last Admin: 11/21/19 10:19 Dose: 200 mg Lidocaine (Lidoderm Patch -) 1 patch TP DAILY [facility] Last Admin: 11/21/19 10:21 Dose: 1 patch Metoprolol Tartrate (Lopressor -) 50 mg PO BID [facility] Last Admin: 11/21/19 21:49 Dose: 50 mg Miscellaneous (Lidoderm Patch Removal) 1 each MC DAILY@2200 [facility] Last Admin: 11/22/19 04:25 Dose: 1 each Nystatin (Nystop Powder -) 1 applic TP TID PRN PRN Reason: DRY SKIN Last Admin: 11/21/19 10:25 Dose: 1 applic Nystatin (Mycostatin Cream -) 1 applic TP BID [facility] Last Admin: 11/22/19 04:25 Dose: 1 applic Oxycodone HCl (Roxicodone -) 5 mg PO Q6H PRN PRN Reason: PAIN LEVEL 7 - 10 Last Admin: 11/22/19 04:20 Dose: 5 mg Polyethylene Glycol (Miralax (For Daily Use) -) 17 gm PO DAILY [facility] Last Admin: 11/21/19 10:20 Dose: Not Given Triamcinolone Acetonide (Aristocort 0.1% Lotion -) 1 applic TP BID [facility] Last Admin: 11/21/19 21:51 Dose: 1 applic Constitutional: Yes: NAD Eyes: Yes: EOM Intact HENT: Yes: Normocephalic Neck: Yes: Trachea Midline Cardiovascular: Yes: Regular Rate and Rhythm Respiratory: Yes: Bilateral scattered rhonchi, diminished at the bases Gastrointestinal: Yes: Normal Bowel Sounds Extremities: Yes: Other, wrapped Labs: Problem List - Problems (1) COPD (chronic obstructive pulmonary disease) Code(s): J44.9 - CHRONIC OBSTRUCTIVE PULMONARY DISEASE, UNSPECIFIED (2) Cellulitis Code(s): L03.90 - CELLULITIS, UNSPECIFIED Qualifiers: Site of cellulitis: trunk Site of cellulitis of trunk: abdominal wall Qualified Code(s): L03.311 - Cellulitis of abdominal wall (3) Chronic depression Code(s): F32.9 - MAJOR DEPRESSIVE DISORDER, SINGLE EPISODE, UNSPECIFIED (4) MRSA cellulitis Code(s): L03.90 - CELLULITIS, UNSPECIFIED; B95.62 - METHICILLIN RESIS STAPH INFCT CAUSING DISEASES CLASSD ELSWHR (5) On home oxygen therapy Code(s): Z99.81 - DEPENDENCE ON SUPPLEMENTAL OXYGEN (6) Spinal stenosis Code(s): M48.00 - SPINAL STENOSIS, SITE UNSPECIFIED Assessment/Plan DIFFUSE ERYTHEMATOUS DERMATITIS COPD STABLE ON CHRONIC O2 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
[2019-11-22] MEDS ORDERED: PT OWN MED DRAWER 7, Y5N ONE (10:07)
--- NOTE | 2019-11-22 10:08 | DS ---
Physical Exam: SUBJECTIVE: Patient seen and examined, feels well, no pain, no shortness of breath. wants to go home. OBJECTIVE: Patient is a 74F PMH chronic venous stasis ulcers, COPD (on home oxygen), CHF, Atrial Fibrillation (on Eliquis), Diabetes Mellitus, HTN, Srojen's disease, spinal stenosis, arthritis, MRSA+ cellulitis presents from home with concern for evolving cellulitis noticed by visiting nurse. Patient with multiple admissions for recurrent cellulitis. Vital Signs Period Temp Pulse Resp BP Sys/William Pulse Ox Last 24 Hr 98 F 60-67 15-20 112-122/68-80 96 PHYSICAL EXAM GENERAL: The patient is awake, alert, and fully oriented, in no acute distress. HEAD: Normal with no signs of trauma. EYES: PERRL, extraocular movements intact, sclera anicteric, conjunctiva clear. No ptosis. ENT: Ears normal, nares patent, oropharynx clear without exudates, moist mucous membranes. NECK: Trachea midline, full range of motion, supple. LUNGS: clear to auscultation bilaterally HEART: Regular rate and rhythm, S1, S2 without murmur, rub or gallop. ABDOMEN: Soft, nontender, nondistended, normoactive bowel sounds EXTREMITIES:Bilateral lower extremity cellulitis left lower extremity greater than right NEUROLOGICAL: Normal speech, gait not observed. PSYCH: Normal mood, normal affect. SKIN: improvement of bilateral arm blotches and left upper chest, hyperpigmentation of left leg below knee to foot, scattered redness/raised that covers the left knee. right leg with dry scaly skin and discoloration (wrapped) . raised red rash across lower abdomen (improved). 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 You were admitted for lower leg redness/ infection and you were treated with IV antibiotics. You developed a rash on both arms and we will continue to treat this with a cream called Triamcinolone. Please continue it to use it twice per day for 5 more days. Please follow up with your primary care doctor within 3-5 days after discharge. Please follow up with a md physician dermatologist of your choosing. Thank you for allowing us to care for you. If you have any questions, please call me Mimi Mcdaniel CONTINUITY PERSON [facility] [phone] Referrals: Margarita Lancaster [Staff Physician] - Disposition: VNS/HOME HEALTH CARE - Home Medications Comprehensive Discharge Medication List: Ambulatory Orders Acetaminophen [Tylenol Extra Strength] 500 mg PO Q6H PRN 10/25/19 Apixaban [Eliquis -] 5 mg PO BID 10/25/19 Ascorbate Calcium [Vitamin C] 1,000 mg PO DAILY 10/25/19 Bupropion HCl [Bupropion Xl] 150 mg PO DAILY 10/25/19 Cholecalciferol (Vitamin D3) [Vitamin D3] 1,000 unit PO DAILY 10/25/19 Cyanocobalamin [Vitamin B12 -] 1,000 mcg PO DAILY 10/25/19 Diltiazem Cd [Cardizem Cd -] 360 mg PO DAILY 10/25/19 Furosemide [Lasix -] 60 mg PO BID 10/25/19 Gabapentin [Neurontin -] 400 mg PO Q8H 10/25/19 Guaifenesin [Mucinex] 600 mg PO DAILY 10/25/19 Hydroxychloroquine So4 [Plaquenil -] 200 mg PO DAILY 10/25/19 Levalbuterol HCl [Xopenex] 0.31 mg IH Q8H PRN 10/25/19 Metoprolol Tartrate 50 mg PO BID 10/25/19 Mineral Oil/Pet Hy-Phl [Aquaphor -] 1 applic TP DAILY 10/25/19 Nystatin Powder [Nystop Powder -] 60 gm TP TID PRN 10/25/19 Oxycodone HCl/Acetaminophen [Percocet 5-325 mg Tablet] 1 tablet PO QID PRN 10/25 Polyethylene Glycol 3350 17 gm PO DAILY 10/25/19 Ranitidine HCl 150 mg PO HS 10/25/19 Simvastatin 10 mg PO HS 10/25/19 Silver Sulfadiazine 1% Top Cr [Silvadene -] 1 applic TP DAILY #2 jar 10/27/19 predniSONE [Deltasone -] See Taper PO ASDIR #81 tab 10/27/19 Bupropion HCl [Wellbutrin Xl -] 150 mg PO DAILY tab.sr.24h 11/22/19 Triamcinolone 0.1% Lotion [Aristocort 0.1% Lotion -] 1 applic TP BID #1 bottle 11/22/19 Problem List - Problems (1) Cellulitis Assessment/Plan: Patient on axtreonam & linezolid, but discontinued after she developed bilateral arm redness/hives. no wheezing or airway compromise. discussed with dermatology and no interventions for biopsy planned at this time. recommendations by dermatology carried out. Monitor off antibiotics given benadryl, prednisone with improvement wound care to LE with dressings of right leg elevated legs while in bed Code(s): L03.90 - CELLULITIS, UNSPECIFIED Qualifiers: Site of cellulitis: trunk Site of cellulitis of trunk: abdominal wall Qualified Code(s): L03.311 - Cellulitis of abdominal wall (2) MRSA cellulitis Assessment/Plan: recent history of MRSA maintain contact precautions Code(s): L03.90 - CELLULITIS, UNSPECIFIED; B95.62 - METHICILLIN RESIS STAPH INFCT CAUSING DISEASES CLASSD ELSWHR (3) COPD (chronic obstructive pulmonary disease) Assessment/Plan: continue home inhalers on xopenex Code(s): J44.9 - CHRONIC OBSTRUCTIVE PULMONARY DISEASE, UNSPECIFIED (4) Chronic depression Assessment/Plan: continue home meds supportive care on wellbutrin at home Code(s): F32.9 - MAJOR DEPRESSIVE DISORDER, SINGLE EPISODE, UNSPECIFIED (5) On home oxygen therapy Assessment/Plan: tolerating room air, and prn oxygen @ 2 liters. 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 discussed today with derm and recommendations carried out. Code(s): L98.8 - OTH DISRD OF THE SKIN AND SUBCUTANEOUS TISSUE (8) Atrial fibrillation Assessment/Plan: rate controlled c/w home diltiazem c/w apixiban Code(s): I48.91 - UNSPECIFIED ATRIAL FIBRILLATION Qualifiers: Atrial fibrillation type: permanent Qualified Code(s): I48.21 - Permanent atrial fibrillation (9) Diastolic CHF Assessment/Plan: on lasix bid check electrolytes in a.m. Code(s): I50.30 - UNSPECIFIED DIASTOLIC (CONGESTIVE) HEART FAILURE Qualifiers: Heart failure chronicity: chronic Qualified Code(s): I50.32 - Chronic diastolic (congestive) heart failure (10) Sjogrens syndrome Code(s): M35.00 - SICCA SYNDROME, UNSPECIFIED (11) Prophylactic measure Assessment/Plan: discharge home. Code(s): Z29.9 - ENCOUNTER FOR PROPHYLACTIC MEASURES, UNSPECIFIED This patient is new to me today: No Emergency Visit: Yes ED Registration Date: 11/13/19 Care time: The patient presented to the Emergency Department on the above date and was hospitalized for further evaluation of their emergent condition. Critical Care patient: No - Discharge Referral Referred to [facility] Med P.C.: No
[2019-11-22] MEDS: guaiFENesin 600 MG TABLET.ER (FP) PO SCH (10:09)
[2019-11-22] MEDS: METOPROLOL TARTRATE 50 MG TABLET (FP) PO SCH (10:09)
[2019-11-22] MEDS: HYDROXYCHLOROQUINE SO4 200 MG TABLET (FP) PO SCH (10:09)
[2019-11-22] MEDS: ASCORBIC ACID 500 MG TABLET (FP) PO SCH (10:09)
[2019-11-22] MEDS: CHOLECALCIFEROL (VIT D3) 1,000 UNIT (25 MCG) TABLET PO SCH (10:09)
[2019-11-22] MEDS: CYANOCOBALAMIN 1,000 MCG TABLET (FP) PO SCH (10:09)
[2019-11-22] MEDS: APIXABAN 5 MG TABLET PO SCH (10:09)
[2019-11-22] MEDS: LIDOCAINE 5% TOPICAL PATCH TP SCH (10:10)
[2019-11-22] MEDS: MINERAL OIL/PET HY-PHL TOPICAL OINTMENT 454 GM JAR TP SCH (10:13)
[2019-11-22] MEDS: HYDROCORTISONE 2.5% LOTION - 1 BOTTLE TP SCH (10:13)
[2019-11-22] MEDS: POLYETHYLENE GLYCOL 3350 119 GM BTL PO SCH (10:14)
[2019-11-22] MEDS: TRIAMCINOLONE ACET 0.1% 60 ML LOTION TP SCH (10:15)
[2019-11-22 13:00] VITALS: BP 120/58; PULSE 84; TEMP 98.6
== END 2019-11-22 11:42 | disposition home health service (06) | DRG 603 ==
LOC: JER 12:58 → JERBED 14:43 → J8W 11-14 15:14
PROVIDERS: ADMIT Internal Medicine; ATTEND Nurse Practitioner Family
DX: L03.116 Cellulitis of left lower limb (principal); L03.311 Cellulitis of abdominal wall; J96.11 Chronic respiratory failure with hypoxia; L97.518 Non-pressure chronic ulcer of other part of right foot with other specified severity; L97.528 Non-pressure chronic ulcer of other part of left foot with other specified severity; I50.32 Chronic diastolic (congestive) heart failure; I11.0 Hypertensive heart disease with heart failure; L03.115 Cellulitis of right lower limb; I48.91 Unspecified atrial fibrillation; E78.5 Hyperlipidemia, unspecified; J44.9 Chronic obstructive pulmonary disease, unspecified; D72.829 Elevated white blood cell count, unspecified; I89.0 Lymphedema, not elsewhere classified; B95.62 Methicillin resistant Staphylococcus aureus infection as the cause of diseases classified elsewhere; I83.015 Varicose veins of right lower extremity with ulcer other part of foot; E11.9 Type 2 diabetes mellitus without complications; F32.9 Major depressive disorder, single episode, unspecified; I83.025 Varicose veins of left lower extremity with ulcer other part of foot; M48.00 Spinal stenosis, site unspecified; K21.9 Gastro-esophageal reflux disease without esophagitis; M35.00 Sjogren syndrome, unspecified; E11.51 Type 2 diabetes mellitus with diabetic peripheral angiopathy without gangrene; L89.151 Pressure ulcer of sacral region, stage 1; N28.89 Other specified disorders of kidney and ureter; L98.8 Other specified disorders of the skin and subcutaneous tissue; G47.30 Sleep apnea, unspecified; B37.2 Candidiasis of skin and nail; M85.80 Other specified disorders of bone density and structure, unspecified site; M54.5 Low back pain; M06.9 Rheumatoid arthritis, unspecified; E04.1 Nontoxic single thyroid nodule; E66.9 Obesity, unspecified; Z68.38 Body mass index [BMI] 38.0-38.9, adult; Z96.653 Presence of artificial knee joint, bilateral; Z99.81 Dependence on supplemental oxygen
CPT/HCPCS: 36415; 80053; 82962; 83735; 85025; 85610; 85730; 87040; 93005; 93010; 94010; 97116-GP; 97162-GP; 99285-25

== ENCOUNTER 2019-12-01 11:51 | Inpatient (IN) | payer OTHER, MEDICARE ==
--- NOTE | 2019-12-01 12:11 | PDOC ---
History of Present Illness - General Stated Complaint: CELLULITIS LEGS Time Seen by Provider: 12/01/19 12:09 Past History - Past Medical History Allergies/Adverse Reactions: Allergies Allergy/AdvReac Type Severity Reaction Status Date / Time Penicillins Allergy Severe Swelling Verified 11/13/19 13:05 clindamycin Allergy Mild Rash Verified 11/13/19 13:05 doxycycline Allergy Swelling Verified 11/13/19 13:05 levofloxacin [From Levaquin] Allergy Rash Verified 11/13/19 13:05 vancomycin AdvReac Mild Itching Verified 11/13/19 13:05 adhesive tape AdvReac "RIPS MY Verified 11/13/19 13:05 SKIN" Home Medications: Ambulatory Orders Acetaminophen [Tylenol Extra Strength] 500 mg PO Q6H PRN 10/25/19 Apixaban [Eliquis -] 5 mg PO BID 10/25/19 Ascorbate Calcium [Vitamin C] 1,000 mg PO DAILY 10/25/19 Bupropion HCl [Bupropion Xl] 150 mg PO DAILY 10/25/19 Cholecalciferol (Vitamin D3) [Vitamin D3] 1,000 unit PO DAILY 10/25/19 Cyanocobalamin [Vitamin B12 -] 1,000 mcg PO DAILY 10/25/19 Diltiazem Cd [Cardizem Cd -] 360 mg PO DAILY 10/25/19 Furosemide [Lasix -] 60 mg PO BID 10/25/19 Gabapentin [Neurontin -] 400 mg PO Q8H 10/25/19 Guaifenesin [Mucinex] 600 mg PO DAILY 10/25/19 Hydroxychloroquine So4 [Plaquenil -] 200 mg PO DAILY 10/25/19 Levalbuterol HCl [Xopenex] 0.31 mg IH Q8H PRN 10/25/19 Metoprolol Tartrate 50 mg PO BID 10/25/19 Mineral Oil/Pet Hy-Phl [Aquaphor -] 1 applic TP DAILY 10/25/19 Nystatin Powder [Nystop Powder -] 60 gm TP TID PRN 10/25/19 Oxycodone HCl/Acetaminophen [Percocet 5-325 mg Tablet] 1 tablet PO QID PRN 10/25 Polyethylene Glycol 3350 17 gm PO DAILY 10/25/19 Ranitidine HCl 150 mg PO HS 10/25/19 Simvastatin 10 mg PO HS 10/25/19 Silver Sulfadiazine 1% Top Cr [Silvadene -] 1 applic TP DAILY #2 jar 10/27/19 predniSONE [Deltasone -] See Taper PO ASDIR #81 tab 10/27/19 Bupropion HCl [Wellbutrin Xl -] 150 mg PO DAILY tab.sr.24h 11/22/19 Triamcinolone 0.1% Lotion [Aristocort 0.1% Lotion -] 1 applic TP BID #1 bottle 11/22/19 Anemia: No Asthma: No Cardiac Disorders: Yes (AFIB) COPD: Yes (HOME O2 3L) CHF: Yes GI Disorders: Yes (GERD) HTN: Yes Hypercholesterolemia: Yes Thyroid Disease: Yes (LEFT THYROID LUMP) - Surgical History Orthopedic Surgery: Yes (BILATERAL KNEE REPLACEMENT) - Immunization History Immunization Up to Date: No - Psycho Social/Smoking Cessation Hx Smoking History: Former smoker Have you smoked in the past 12 months: No Number of Cigarettes Smoked Daily: 0 If you are a former smoker, when did you quit?: 1985 Cigars Per Day: 0 'Breaking Loose' booklet given: 08/30/17 Hx Alcohol Use: No Drug/Substance Use Hx: No Substance Use Type: None Hx Substance Use Treatment: No ED Treatment Course - LABORATORY CBC & Chemistry Diagram: 12/01/19 12:31 12/01/19 12:31 Medical Decision Making - Medical Decision Making 12/01/19 12:29 74F hx chronic BLE edema w/venous stasis ulcers, COPD (on home oxygen), diastolic CHF, Atrial Fibrillation (on Eliquis), Diabetes Mellitus, HTN, HLD, Sjogren's disease, spinal stenosis, arthritis, MRSA+ cellulitis, multiple abx allergies, and multiple admissions for recurrent cellulitis/panniculitis (last 11/13-11/22/19, zyvox/aztreonam given with possible drug rash reaction, seen by Dr Lee ID) presents from home c/o 2 days of spreading erythema, warmth, swelling, and pain of LLE, consistent with prior cellulitis but states worse than last admission. Pt went home 11/22/19, was in [facility] until yesterday. Yesterday gradual onset, worsening, LLE cellulitis from big toe up to medial thigh. Endorses 2 small breaks in skin of anterior LLE with minimal bleeding. Denies purulent drainage. Put unknown powder under pannus today, believes black coloured powder. Endorses hx of RLE DVT in RLE but very different sx - palpitations, SOB, unilateral swelling. Denies recent travel, recent surgery, hemoptysis, unilateral swelling, SOB, chest pain, palpitations. Denies trauma, wounds, fatigue, fevers, chills, nausea, vomiting. Denies inciting event. ROS: Constitutional: Negative for chills, fever, fatigue, diaphoresis. HENT: Negative for sore throat, rhinorrhea, congestion. Eyes: Negative for visual disturbance. Respiratory: Negative for shortness of breath, cough, and wheezing. Cardiovascular: Positive for b/l leg swelling. Negative for chest pain, palpitations. Gastrointestinal: Negative for abdominal pain, blood in stool, constipation, diarrhea, nausea, and vomiting. Genitourinary: Negative for dysuria, flank pain, and hematuria. Musculoskeletal: Negative for myalgias, back pain, and neck pain. Skin: Positive for BLE venous stasis and LLE cellulitis and panniculitis. Neurological: Negative for light-headedness, dizziness, vertigo, syncope, weakness, numbness and headaches. Psychiatric/Behavioral: Negative for behavioral problems and confusion. PE: Gen: Alert, NAD, comfortable-appearing. HEENT: PERRL, EOMI, MMM, NCAT. No conjunctival pallor. Sclera are non-icteric. CV: Regular rate and rhythm. No murmurs, rubs, or gallops. PULM: No resp distress. CTAB, no wheezes, rales, or rhonchi. ABD: protuberant,soft, NT/ND, no rebound tenderness or guarding, no CVA tenderness. Abdominal skin w/slight erythematous rash under pannus, covered w/ white powder. BACK: No TTP of c/t/l-spine. No step-offs or deformities. MSK: No bony deformities. 2+ pulses in all extremities. NEURO: AAOx3. PERRL. No gross CN deficits. Strength and sensation grossly intact throughout. EXTREMITIES: No cyanosis. No clubbing. No calf tenderness. BLEs: 2+ pitting edema. Skin changes c/w stasis dermatitis and scaling skin. LLE erythematous and warm and mildly tender from big toes to medial thigh, without purulence or red streaking, 2 small <0.5cm diameter open wounds on anterior L funes and foot with skant bleeding. No crepitus. Sensation intact through b/l, although decreased in RLE (pt states chronic). RLE slightly cooler to touch than left (pt states chronic). Able to move toes normally. PSYCH: Normal mood and thought pattern. SKIN: Warm and dry. Normal capillary refill. No jaundice. MDM: 74F hx chronic venous stasis ulcers, COPD (on home oxygen), CHF, Atrial Fibrillation (on Eliquis), Diabetes Mellitus, HTN, Srojen's disease, spinal stenosis, arthritis, MRSA+ cellulitis, multiple abx allergies, and multiple admissions for recurrent cellulitis/panniculitis (last 11/13-11/22/19, zyvox/ aztreonam given with possible drug rash reaction, seen by Dr Jesus LEVIN) presents from home (lives alone) with 2 days of spreading erythema, warmth, swelling, and pain of LLE, consistent with prior cellulitis. Tachycardic 104, other VSS, afebrile, BLE stasis dermatitis and Most consistent with recurrent cellulitis/panniculitis. Due to multiple abx allergies, consult ID for abx choice. No systemic sx, but tachycardic 104 - r/o sepsis with labs. Low concern for DVT due to erythema/warmth, consistency with prior cellulitis, on eliquis, and lack of consistency with prior RLE DVT (no SOB , chest pain, palpitations, or unilateral swelling). No crepitus, extreme TTP, or rapid spread concerning for necrotizing fasciitis. -EKG reviewed: Afib w/RVR, 114bpm, QTc 457ms, normal axis, no e/o acute ischemia , no significant change compared to 11/13/19 -CXR -Sepsis labs including CBC,CMP,Coags,lact,VBG,BCx x2, UA/UC -IVF (conservatively due to CHF) -Pain management -Dr Roc Lee ID consult - consult placed at office -Antibiotics - pending ID -Dispo: likely adm pending w/u and ID 12/01/19 13:56 CXR reviewed - no acute pathology Labs reviewed. WBC 5.9 Dr Lee's office called again. 12/01/19 14:[address] Lee - discussed pt. He will write order for abx and see pt. Will admit to med/surg. 12/01/19 14:27 Signed out to admitting team. Discharge - Discharge Information Problems reviewed: Yes Clinical Impression/Diagnosis: Cellulitis Condition: Stable - Admission Yes - Follow up/Referral - Patient Discharge Instructions - Post Discharge Activity
[2019-12-01] MEDS ORDERED: SODIUM CHLORIDE 0.9% 500 ML INFUS.BAG IV ONE (12:30)
[2019-12-01 12:54] LABS: BASO % 0.5 % (0-2.0); EOS % 4.8 % (0-4.5); HEMATOCRIT 40.4 % (32.4-45.2); HEMOGLOBIN 12.7 GM/dL (10.7-15.3); MCH 25.6 pg (25.7-33.7); MCHC 31.3 g/dl (32.0-36.0); MEAN CELL VOLUME 81.6 fl (80-96); MEAN PLT VOLUME 8.6 fl (7.5-11.1); MONO % 10.8 % (3.8-10.2); NEUT % 66.9 % (42.8-82.8); PLATELET COUNT 229 K/MM3 (134-434); RBC 4.96 M/mm3 (3.60-5.2); RDW 17.6 % (11.6-15.6); WHITE BLOOD COUNT 5.9 K/mm3 (4.0-10.0)
[2019-12-01 13:11] LABS: INR 1.4 (0.83-1.09); PROTHROMBIN TIME (PATIENT) 16.6 SEC (9.7-13.0)
[2019-12-01 13:25] LABS: ALBUMIN 2.9 g/dl (3.4-5.0); BILIRUBIN,TOTAL 0.4 mg/dL (0.2-1); BLOOD UREA NITROGEN 19.4 mg/dL (7-18); CALCIUM 8.7 mg/dL (8.5-10.1); CREATININE 0.5 mg/dL (0.55-1.3); POTASSIUM 3.7 mmol/L (3.5-5.1); TOT PROT 6.2 g/dl (6.4-8.2)
[2019-12-01] MEDS ORDERED: ACETAMINOPHEN 500 MG TABLET (FP) PO ONE (13:58)
[2019-12-01 14:17] LABS: MAGNESIUM 1.9 mg/dL (1.8-2.4); N-TERMINAL BNP 2405.5 pg/ml (5-125); PHOSPHOROUS 3.4 mg/dL (2.5-4.9)
[2019-12-01] MEDS ORDERED: ACETAMINOPHEN 325 MG TABLET (FP) ONE (14:33)
--- NOTE | 2019-12-01 14:43 | EKG ---
Test Reason : Blood Pressure : / mmHG Vent. Rate : 114 BPM Atrial Rate : 089 BPM P-R Int : 000 ms QRS Dur : 086 ms QT Int : 332 ms P-R-T Axes : 000 043 016 degrees QTc Int : 457 ms POOR DATA QUALITY, INTERPRETATION MAY BE ADVERSELY AFFECTED ATRIAL FIBRILLATION WITH RAPID VENTRICULAR RESPONSE ABNORMAL ECG WHEN COMPARED WITH ECG OF 13-NOV-2019 16:51, T WAVE INVERSION LESS EVIDENT IN ANTERIOR LEADS Confirmed by Benjy Gallegos ([id number]) on 12/01/2019 2:43:22 PM Referred By: DR HOGAN Confirmed By:Benjy Gallegos
--- NOTE | 2019-12-01 16:07 | PDOC ---
Documentation entered by Joey Mondragon SCRIBE, acting as scribe for Yohan Crenshaw MD. Yohan Crenshaw MD: This documentation has been prepared by the Giancarlo stringer Daniel, SCRIBE, under my direction and personally reviewed by me in its entirety. I confirm that the documentation accurately reflects all work, treatment, procedures, and medical decision making performed by me. Attending Attestation - Resident Resident Name: Argenis Montgomery - ED Attending Attestation I have performed the following: I have examined & evaluated the patient, The case was reviewed & discussed with the resident, I agree w/resident's findings & plan, Exceptions are as noted - HPI HPI: 12/01/19 14:11 The patient is a 74 year old female with a past medical history of bilateral lower extremity edema with venous stasis ulcers, COPD (home O2), diastolic CHF, afib (eliquis), diabetes, HTN, HLD, Sjorgens disease, spinal stenosis, OA, and MRSA positive cellulitis here today for evaluation of erythema, warmth, edema, and pain of the left lower extremity. Patient was recently discharged on and states that she was fine until yesterday and noticed a gradual onset of erythema, edema, and pain from left big toe up to medial thigh. She notes 2 small skin breaks on her anterior left lower extremity with minimal and no purulent discharge. Patient denies headache, lightheadedness. Denies fever, chills. Denies chest pain, shortness of breath. Denies nausea, vomiting, diarrhea, abdominal pain. PCP: Mike Boykin - Physicial Exam PE: 12/01/19 14:11 Agree with resident exam - Medical Decision Making 12/01/19 16:06 74-year-old female with multiple medical problems including recurrent admissions for cellulitis requiring IV antibiotics presents emergency department with recurrent cellulitis. Case has been discussed with the patient' s infectious disease physician Dr. Lee who will order antibiotics. Patient has no systemic signs of infection at this time, vital signs are stable. Patient has been admitted for further management.
--- NOTE | 2019-12-01 16:11 | HP ---
CHIEF COMPLAINT: lower ext redness that extends upward to thighs PCP: HISTORY OF PRESENT ILLNESS: Patient is a 74 year old female with a significant past medical history of chronic venous stasis ulcers, COPD (on home oxygen), CHF, Atrial Fibrillation ( on Eliquis), Diabetes Mellitus, HTN, Srojen's disease, spinal stenosis, arthritis, MRSA+ cellulitis presents from home with concern for evolving cellulitis. Patient with multiple admissions for recurrent cellulitis of bilateral lower extremities. Patient with recent admission at [facility] on 11/13- for lower ext cellulitis and was treated with IV antibiotics (Aztronam/ zyvox) but she developed a rash on both arms and antibiotics discontinued. She reports she was doing well at home after discharge but noticed gradual worsening bilateral lower extremity cellulitis from big toe up to medial thigh. Endorses 2 small breaks in skin of anterior LLE with minimal bleeding (on eliquis). No purulent drainage. Denies recent travel or recent surgery. Has not seen any other providers since leaving [facility] on 11/22/2019. She denies any shortness of breath above baseline. Denies any chest pain, palpitations. ER course was notable for: (1) afib with rvr at 114, on ekg (2) chest xray: no acute pathology (3) Recent Travel: none PAST MEDICAL/SURGICAL HISTORY: chronic venous stasis ulcers, COPD (on home oxygen), CHF, Atrial Fibrillation (on Eliquis), Diabetes Mellitus, HTN, Srojen' s disease, spinal stenosis, arthritis, MRSA+ cellulitis Social History: Smoking: none Alcohol: none Drugs: none Allergies Penicillins Allergy (Severe, Verified 11/13/19 13:05) Swelling clindamycin Allergy (Mild, Verified 11/13/19 13:05) Rash doxycycline Allergy (Verified 11/13/19 13:05) Swelling levofloxacin [From Levaquin] Allergy (Verified 11/13/19 13:05) Rash vancomycin Adverse Reaction (Mild, Verified 11/13/19 13:05) Itching adhesive tape Adverse Reaction (Verified 11/13/19 13:05) "RIPS MY SKIN" HOME MEDICATIONS: Home Medications Medication Instructions Recorded Acetaminophen [Tylenol Extra 500 mg PO Q6H PRN 10/25/19 Strength] Apixaban [Eliquis -] 5 mg PO BID 10/25/19 Ascorbate Calcium [Vitamin C] 1,000 mg PO DAILY 10/25/19 Bupropion HCl [Bupropion Xl] 150 mg PO DAILY 10/25/19 Cholecalciferol (Vitamin D3) 1,000 unit PO DAILY 10/25/19 [Vitamin D3] Cyanocobalamin [Vitamin B12 -] 1,000 mcg PO DAILY 10/25/19 Diltiazem Cd [Cardizem Cd -] 360 mg PO DAILY 10/25/19 Furosemide [Lasix -] 60 mg PO BID 10/25/19 Gabapentin [Neurontin -] 400 mg PO Q8H 10/25/19 Guaifenesin [Mucinex] 600 mg PO DAILY 10/25/19 Hydroxychloroquine So4 [Plaquenil 200 mg PO DAILY 10/25/19 -] Levalbuterol HCl [Xopenex] 0.31 mg IH Q8H PRN 10/25/19 Metoprolol Tartrate 50 mg PO BID 10/25/19 Mineral Oil/Pet Hy-Phl [Aquaphor -] 1 applic TP DAILY 10/25/19 Nystatin Powder [Nystop Powder -] 60 gm TP TID PRN 10/25/19 Oxycodone HCl/Acetaminophen 1 tablet PO QID PRN 10/25/19 [Percocet 5-325 mg Tablet] Polyethylene Glycol 3350 17 gm PO DAILY 10/25/19 Ranitidine HCl 150 mg PO HS 10/25/19 Simvastatin 10 mg PO HS 10/25/19 Silver Sulfadiazine 1% Top Cr 1 applic TP DAILY #2 jar 10/27/19 [Silvadene -] predniSONE [Deltasone -] See Taper PO ASDIR #81 tab 10/27/19 Bupropion HCl [Wellbutrin Xl -] 150 mg PO DAILY tab.sr.24h 11/22/19 Triamcinolone 0.1% Lotion 1 applic TP BID #1 bottle 11/22/19 [Aristocort 0.1% Lotion -] PHYSICAL EXAMINATION Vital Signs - 24 hr 12/01/19 12/01/19 12:08 15:13 Temperature 97.4 F L Pulse Rate 104 H Pulse Rate [ 106 H Radial] Respiratory 18 18 Rate Blood Pressure 136/67 Blood Pressure 121/61 [Right Arm] O2 Sat by Pulse 99 98 Oximetry (%) GENERAL: Awake, alert, and fully oriented, in no acute distress. HEAD: Normal with no signs of trauma. EYES: Pupils equal, round and reactive to light, extraocular movements intact, sclera anicteric, conjunctiva clear. No lid lag. EARS, NOSE, THROAT: Ears normal, nares patent, oropharynx clear without exudates. Moist mucous membranes. NECK: Normal range of motion, supple without lymphadenopathy, JVD, or masses. LUNGS: diminished bilaterally, home oxygen dependent at 3 liters. HEART: irregular, hx of afib ABDOMEN: large obese abdomen MUSCULOSKELETAL: Normal range of motion at all joints. No bony deformities or tenderness. No CVA tenderness. UPPER EXTREMITIES: No peripheral edema. NEUROLOGICAL: Normal speech. bed bound PSYCHIATRIC: Cooperative. Good eye contact. Appropriate mood and affect. SKIN: chronic skin changes consistent with stasis dermatitis and scaling skin. LLE erythematous, reddened, warm with tenderness from toes to medial thigh. 2 small pin sized wounds on anterior left funes, no drainage or odor. Sensation intact through b/l . RLE slightly cooler to touch but able to move toes PSYCH: Normal mood and thought odell Laboratory Results - last 24 hr 12/01/19 12/01/19 12/01/19 12:31 12:31 12:31 WBC 5.9 RBC 4.96 Hgb 12.7 Hct 40.4 MCV 81.6 MCH 25.6 L MCHC 31.3 L RDW 17.6 H Plt Count 229 MPV 8.6 D Absolute Neuts (auto) 4.0 Neutrophils % 66.9 D Lymphocytes % 17.0 D Monocytes % 10.8 H Eosinophils % 4.8 H Basophils % 0.5 Nucleated RBC % 0 PT with INR 16.60 H INR 1.40 H PTT (Actin FS) 37.0 H Sodium Potassium Chloride Carbon Dioxide Anion Gap BUN Creatinine Est GFR (CKD-EPI)AfAm Est GFR (CKD-EPI)NonAf Random Glucose Lactic Acid Calcium Phosphorus 3.4 Magnesium 1.9 Total Bilirubin AST ALT Alkaline Phosphatase Creatine Kinase 66 CK-MB (CK-2) < 1.0 Troponin I < 0.02 B-Natriuretic Peptide 2405.5 H Total Protein Albumin 12/01/19 12/01/19 12:31 12:31 WBC RBC Hgb Hct MCV MCH MCHC RDW Plt Count MPV Absolute Neuts (auto) Neutrophils % Lymphocytes % Monocytes % Eosinophils % Basophils % Nucleated RBC % PT with INR INR PTT (Actin FS) Sodium 139 Potassium 3.7 Chloride 96 L Carbon Dioxide 37 H Anion Gap 6 L BUN 19.4 H Creatinine 0.5 L Est GFR (CKD-EPI)AfAm 112.07 Est GFR (CKD-EPI)NonAf 96.69 Random Glucose 84 Lactic Acid 1.3 Calcium 8.7 Phosphorus Magnesium Total Bilirubin 0.4 AST 22 ALT 20 Alkaline Phosphatase 90 Creatine Kinase CK-MB (CK-2) Troponin I B-Natriuretic Peptide Total Protein 6.2 L Albumin 2.9 L ASSESSMENT/PLAN: Problem List - Problem (1) Cellulitis Assessment/Plan: Recent admission for lower ext celluliits. On last admission, patient on axtreonam & linezolid, but discontinued after she developed bilateral arm redness/hives. Multiple antibiotic allergies noted. ID consulted by ED provider. wound care to LE with dressings of right leg, will wrap legs with evette and elevate above heart level Code(s): L03.90 - CELLULITIS, UNSPECIFIED (2) Acute on chronic diastolic (congestive) heart failure Assessment/Plan: on lasix bid check electrolytes in a.m. Code(s): I50.33 - ACUTE ON CHRONIC DIASTOLIC (CONGESTIVE) HEART FAILURE (3) Afib Assessment/Plan: on cardizem and eliquis Code(s): I48.91 - UNSPECIFIED ATRIAL FIBRILLATION (4) COPD (chronic obstructive pulmonary disease) Assessment/Plan: continue home inhalers on xopenex Code(s): J44.9 - CHRONIC OBSTRUCTIVE PULMONARY DISEASE, UNSPECIFIED (5) Chronic depression Assessment/Plan: continue home medications Code(s): F32.9 - MAJOR DEPRESSIVE DISORDER, SINGLE EPISODE, UNSPECIFIED (6) MRSA cellulitis Assessment/Plan: recent history of MRSA maintain contact precautions Code(s): L03.90 - CELLULITIS, UNSPECIFIED; B95.62 - METHICILLIN RESIS STAPH INFCT CAUSING DISEASES CLASSD ELSWHR (7) 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 recommended evette bandage wrapping at all times. Code(s): L98.8 - OTH DISRD OF THE SKIN AND SUBCUTANEOUS TISSUE (8) HLD (hyperlipidemia) Assessment/Plan: continue lipitor Code(s): E78.5 - HYPERLIPIDEMIA, UNSPECIFIED (9) HTN (hypertension) Assessment/Plan: on toprol and cardizem bp stable Code(s): I10 - ESSENTIAL (PRIMARY) HYPERTENSION (10) Sjogrens syndrome Code(s): M35.00 - SICCA SYNDROME, UNSPECIFIED (11) Prophylactic measure Assessment/Plan: fen tolerating PO monitor electrolytes low salt diet full code Code(s): Z29.9 - ENCOUNTER FOR PROPHYLACTIC MEASURES, UNSPECIFIED Visit type - Emergency Visit Emergency Visit: Yes ED Registration Date: 12/01/19 Care time: The patient presented to the Emergency Department on the above date and was hospitalized for further evaluation of their emergent condition. - New Patient This patient is new to me today: Yes Date on this admission: 12/02/19 - Critical Care Critical Care patient: No
[2019-12-01] MEDS ORDERED: LEVALBUTEROL HCL 0.31 MG/3 ML VIAL.NEB IH PRN ×2 (18:12→18:26)
[2019-12-01] MEDS: INSULIN SLIDING SCALE (NOVOLOG) 1 VIAL SQ SCH ×2 (18:12→22:42)
[2019-12-01 18:34] VITALS: BMI 39.4
[2019-12-01] MEDS: FUROSEMIDE 40 MG TABLET (FP) PO SCH (18:54)
[2019-12-01] MEDS ORDERED: LEVALBUTEROL HCL 0.63 MG/3 ML VIAL.NEB. IH ONE (20:41)
[2019-12-01 21:01] LABS: EPI CELLS 2.6 /HPF (0-5/HPF); HYALINE CASTS 1 /lpf (0-8); PH,URINE 7.5 (5.0-8.0); URINE APPEARANCE CLEAR; URINE BACTERIA 142.6 /hpf (NEGATIVE); URINE BILIRUBIN NEGATIVE (NEGATIVE); URINE COLOR YELLOW; URINE GLUCOSE (UA) NEGATIVE (NEGATIVE); URINE KETONE NEGATIVE (NEGATIVE); URINE LEUK ESTERASE TRACE (NEGATIVE); URINE NITRITE NEGATIVE (NEGATIVE); URINE PROTEIN NEGATIVE (NEGATIVE); URINE RBC 1 /hpf (0-4); URINE UROBILINOGEN 0.2 mg/dL (0.2-1.0); URINE WBC 8 /hpf (0-5)
[2019-12-01] MEDS ORDERED: INSULIN (NOVOLOG) ASPART 100 UNITS/ML 10ML VIAL ONE (22:35)
[2019-12-01] MEDS: APIXABAN 5 MG TABLET PO SCH (22:41)
[2019-12-01] MEDS: ATORVASTATIN CA 10 MG TABLET (FP) PO SCH (22:41)
[2019-12-01] MEDS: METOPROLOL TARTRATE 50 MG TABLET (FP) PO SCH (22:41)
[2019-12-01] MEDS: GABAPENTIN 400 MG CAPSULE (FP) PO SCH (22:41)
[2019-12-01] MEDS: FAMOTIDINE 20 MG TABLET PO SCH (22:46)
[2019-12-02] MEDS: GABAPENTIN 400 MG CAPSULE (FP) PO SCH ×3 (06:13→21:11)
[2019-12-02] MEDS: FUROSEMIDE 40 MG TABLET (FP) PO SCH ×2 (06:13→17:58)
[2019-12-02] MEDS: INSULIN SLIDING SCALE (NOVOLOG) 1 VIAL SQ SCH ×4 (06:14→21:12)
[2019-12-02 08:14] LABS: HEMATOCRIT 38.7 % (32.4-45.2); HEMOGLOBIN 12.2 GM/dL (10.7-15.3); MCH 25.5 pg (25.7-33.7); MCHC 31.4 g/dl (32.0-36.0); MEAN CELL VOLUME 81.2 fl (80-96); MEAN PLT VOLUME 8.2 fl (7.5-11.1); PLATELET COUNT 232 K/MM3 (134-434); RBC 4.77 M/mm3 (3.60-5.2); RDW 17.6 % (11.6-15.6); WHITE BLOOD COUNT 4.5 K/mm3 (4.0-10.0)
[2019-12-02 08:30] LABS: INR 1.28 (0.83-1.09); PROTHROMBIN TIME (PATIENT) 15.2 SEC (9.7-13.0)
[2019-12-02 08:53] LABS: ALBUMIN 2.8 g/dl (3.4-5.0); BILIRUBIN,TOTAL 0.3 mg/dL (0.2-1); BLOOD UREA NITROGEN 13.7 mg/dL (7-18); CALCIUM 8.7 mg/dL (8.5-10.1); CREATININE 0.4 mg/dL (0.55-1.3); PHOSPHOROUS 3.9 mg/dL (2.5-4.9); POTASSIUM 3.5 mmol/L (3.5-5.1)
[2019-12-02] MEDS ORDERED: PT OWN MED DRAWER 7, Y5N ONE (09:26)
[2019-12-02] MEDS: ASCORBIC ACID 500 MG TABLET (FP) PO SCH (09:33)
[2019-12-02] MEDS: HYDROXYCHLOROQUINE SO4 200 MG TABLET (FP) PO SCH (09:33)
[2019-12-02] MEDS: oxyCODONE HCL 5 MG TABLET PO PRN ×2 (09:34→21:12)
[2019-12-02] MEDS: APIXABAN 5 MG TABLET PO SCH ×2 (09:34→21:12)
[2019-12-02] MEDS: METOPROLOL TARTRATE 50 MG TABLET (FP) PO SCH ×2 (09:34→21:11)
--- NOTE | 2019-12-02 13:03 | CONSULT ---
Consult - text type - Consultation Consultation Note: Jillian Torres has chronic stasis dermatitis of both legs which has caused ulceration and cellulitis in the past. She has been treated with steroids with good results. She was admitted with erythema of the left leg. No fever, no open wounds or drainage. On exam there is a small area of redness in the left upper thigh. The lower legs are not edematous, skin is intact. A few small eschars present on right calf. WBC 4.5 Imp: No active signs of infection. Dermatitis appears to be under control. Rec: Skin care with moisturizers, topical steroids as needed.
--- NOTE | 2019-12-02 13:44 | PN ---
Progress Note (short form) - Note Progress Note: ID consult dictated imp/reccd erythema left thigh (new)-recurrent cellulitis/steroid responsive dermatitis no fevers trial daptomycin-multiple antibiotic allergies steroid cream check cpk Problem List - Problems (1) Cellulitis Code(s): L03.90 - CELLULITIS, UNSPECIFIED (2) Dermatitis Code(s): L30.9 - DERMATITIS, UNSPECIFIED (3) Allergy to multiple antibiotics Code(s): Z88.1 - ALLERGY STATUS TO OTHER ANTIBIOTIC AGENTS STATUS
[2019-12-02] MEDS: DAPTOMYCIN 500 MG in SODIUM CHLORIDE 50 ML IVPB SCH (13:58)
--- NOTE | 2019-12-02 16:16 | PN ---
Physical Exam: SUBJECTIVE: Patient seen and examined at the bedside. in no acute distress. denies any shortness of breath. on 3 liters of nasal cannula. OBJECTIVE: Patient is a 74 year old female with a significant past medical history of chronic venous stasis ulcers, COPD (on home oxygen), CHF, Atrial Fibrillation ( on Eliquis), Diabetes Mellitus, HTN, Srojen's disease, spinal stenosis, arthritis, MRSA+ cellulitis presents from home with concern for evolving cellulitis. Patient with multiple admissions for recurrent cellulitis of bilateral lower extremities. Patient with recent admission at [facility] on 11/13- for lower ext cellulitis and was treated with IV antibiotics (Aztronam/ zyvox) but she developed a rash on both arms and antibiotics discontinued. She reports she was doing well at home after discharge but noticed gradual worsening bilateral lower extremity cellulitis from big toe up to medial thigh. Endorses 2 small breaks in skin of anterior LLE with minimal bleeding (on eliquis). No purulent drainage. Has not seen any other providers since leaving [facility] on 11/22/2019. She denies any shortness of breath above baseline. Denies any chest pain, palpitations. patient with multiple admissions at [facility], may benefit from wound care referral, or wound care nurse at home. Vital Signs Period Temp Pulse Resp BP Sys/William Pulse Ox Last 24 Hr 97.8 F-98.2 F 72-116 18-20 93-110/61-72 95-96 GENERAL: Awake, alert, and fully oriented, in no acute distress. HEAD: Normal with no signs of trauma. EYES: Pupils equal, round and reactive to light, extraocular movements intact, sclera anicteric, conjunctiva clear. No lid lag. EARS, NOSE, THROAT: Ears normal, nares patent, oropharynx clear without exudates. Moist mucous membranes. NECK: Normal range of motion, supple without lymphadenopathy, JVD, or masses. LUNGS: diminished bilaterally, home oxygen dependent at 3 liters. HEART: irregular, hx of afib ABDOMEN: large obese abdomen MUSCULOSKELETAL: Normal range of motion at all joints. No bony deformities or tenderness. No CVA tenderness. UPPER EXTREMITIES: No peripheral edema. NEUROLOGICAL: Normal speech. bed bound PSYCHIATRIC: Cooperative. Good eye contact. Appropriate mood and affect. SKIN: chronic skin changes consistent with stasis dermatitis and scaling skin. LLE erythematous, reddened, warm with tenderness from toes to medial thigh. 2 small pin sized wounds on anterior left funes, no drainage or odor. Sensation intact through b/l . RLE slightly cooler to touch but able to move toes PSYCH: Normal mood Laboratory Results - last 24 hr 12/01/19 12/01/19 12/02/19 20:00 22:43 06:14 WBC RBC Hgb Hct MCV MCH MCHC RDW Plt Count MPV PT with INR INR Sodium Potassium Chloride Carbon Dioxide Anion Gap BUN Creatinine Est GFR (CKD-EPI)AfAm Est GFR (CKD-EPI)NonAf POC Glucometer 125 72 Random Glucose Calcium Phosphorus Total Bilirubin AST ALT Alkaline Phosphatase Total Protein Albumin Urine Color Yellow Urine Appearance Clear Urine pH 7.5 D Ur Specific Bethany 1.010 Urine Protein Negative Urine Glucose (UA) Negative Urine Ketones Negative Urine Blood Negative Urine Nitrite Negative Urine Bilirubin Negative Urine Urobilinogen 0.2 Ur Leukocyte Esterase Trace Urine WBC (Auto) 8 Urine RBC (Auto) 1 Urine Casts (Auto) 1 U Epithel Cells (Auto) 2.6 Urine Bacteria (Auto) 142.6 12/02/19 12/02/19 12/02/19 07:10 07:10 07:10 WBC 4.5 RBC 4.77 Hgb 12.2 Hct 38.7 MCV 81.2 MCH 25.5 L MCHC 31.4 L RDW 17.6 H Plt Count 232 MPV 8.2 PT with INR 15.20 H INR 1.28 H Sodium 141 Potassium 3.5 Chloride 96 L Carbon Dioxide 41 H Anion Gap 3 L BUN 13.7 Creatinine 0.4 L Est GFR (CKD-EPI)AfAm 120.60 Est GFR (CKD-EPI)NonAf 104.06 POC Glucometer Random Glucose 69 L Calcium 8.7 Phosphorus 3.9 Total Bilirubin 0.3 AST 13 L ALT 15 Alkaline Phosphatase 84 Total Protein 6.0 L Albumin 2.8 L Urine Color Urine Appearance Urine pH Ur Specific Beth[place] Urine Protein Urine Glucose (UA) Urine Ketones Urine Blood Urine Nitrite Urine Bilirubin Urine Urobilinogen Ur Leukocyte Esterase Urine WBC (Auto) Urine RBC (Auto) Urine Casts (Auto) U Epithel Cells (Auto) Urine Bacteria (Auto) Active Medications Generic Name Dose Route Start Last Admin Trade Name Freq PRN Reason Stop Dose Admin Apixaban 5 mg 12/01/19 22:00 12/02/19 09:34 Eliquis - PO 5 mg BID BELL Administration Ascorbic Acid 1,000 mg 12/02/19 10:00 12/02/19 09:33 Vitamin C - PO 1,000 mg DAILY BELL Administration Atorvastatin Calcium 10 mg 12/01/19 22:00 12/01/19 22:41 Lipitor - PO 10 mg HS BELL Administration Bupropion HCl 150 mg 12/02/19 10:00 12/02/19 09:35 Wellbutrin Xl - PO 150 mg DAILY BELL Administration Diltiazem HCl 360 mg 12/02/19 10:00 12/02/19 09:35 Cardizem Cd - PO 360 mg DAILY BELL Administration Famotidine 20 mg 12/01/19 22:00 12/01/19 22:46 Pepcid - PO 20 mg HS BELL Administration Furosemide 60 mg 12/01/19 18:30 12/02/19 06:13 Lasix - PO 60 mg BID@0600,1800 BELL Administration Gabapentin 400 mg 12/01/19 22:00 12/02/19 13:59 Neurontin - PO 400 mg TID BELL Administration Hydroxychloroquine Sulfate 200 mg 12/02/19 10:00 12/02/19 09:33 Plaquenil - PO 200 mg DAILY BELL Administration Daptomycin 500 mg/ Sodium 50 mls @ 50 mls/hr 12/02/19 12:00 12/02/19 13:58 Chloride IVPB 50 mls/hr Q24H BELL Administration Protocol Insulin Aspart 1 vial 12/01/19 16:30 12/02/19 11:22 Novolog Vial Sliding Scale - SQ Not Given ACHS BELL Protocol Levalbuterol HCl 0.31 mg 12/01/19 18:12 Xopenex IH Q8H PRN WHEEZING Levalbuterol HCl 0.31 mg 12/01/19 18:26 Xopenex IH Q8H PRN WHEEZING Metoprolol Tartrate 50 mg 12/01/19 22:00 12/02/19 09:34 Lopressor - PO 50 mg BID BELL Administration Oxycodone HCl 5 mg 12/02/19 09:19 12/02/19 09:34 Roxicodone - PO 5 mg Q6H PRN Administration PAIN LEVEL 7 - 10 ASSESSMENT/PLAN: Problem List - Problems (1) Cellulitis Assessment/Plan: Recent admission for lower ext celluliits. On last admission, patient on axtreonam & linezolid, but discontinued after she developed bilateral arm redness/hives. Multiple antibiotic allergies noted. ID consulted and started on trial of daptomycin wound care to LE with dressings of right leg, will wrap legs with evette and elevate above heart level seen by vascular Code(s): L03.90 - CELLULITIS, UNSPECIFIED (2) Acute on chronic diastolic (congestive) heart failure Assessment/Plan: on lasix bid check electrolytes daily Code(s): I50.33 - ACUTE ON CHRONIC DIASTOLIC (CONGESTIVE) HEART FAILURE (3) Afib Assessment/Plan: on cardizem and eliquis Code(s): I48.91 - UNSPECIFIED ATRIAL FIBRILLATION (4) COPD (chronic obstructive pulmonary disease) Assessment/Plan: continue home inhalers on xopenex Code(s): J44.9 - CHRONIC OBSTRUCTIVE PULMONARY DISEASE, UNSPECIFIED (5) Chronic depression Assessment/Plan: continue home medications Code(s): F32.9 - MAJOR DEPRESSIVE DISORDER, SINGLE EPISODE, UNSPECIFIED (6) MRSA cellulitis Assessment/Plan: recent history of MRSA maintain contact precautions Code(s): L03.90 - CELLULITIS, UNSPECIFIED; B95.62 - METHICILLIN RESIS STAPH INFCT CAUSING DISEASES CLASSD ELSWHR (7) [place]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 recommended evette bandage wrapping at all times. Code(s): L98.8 - OTH DISRD OF THE SKIN AND SUBCUTANEOUS TISSUE (8) HLD (hyperlipidemia) Assessment/Plan: continue lipitor Code(s): E78.5 - HYPERLIPIDEMIA, UNSPECIFIED (9) HTN (hypertension) Assessment/Plan: on toprol and cardizem bp stable Code(s): I10 - ESSENTIAL (PRIMARY) HYPERTENSION (10) Sjogrens syndrome Assessment/Plan: outpatient follow up with pcp Code(s): M35.00 - SICCA SYNDROME, UNSPECIFIED (11) Prophylactic measure Assessment/Plan: fen tolerating PO monitor electrolytes low salt diet full code Code(s): Z29.9 - ENCOUNTER FOR PROPHYLACTIC MEASURES, UNSPECIFIED Visit type - Emergency Visit Emergency Visit: Yes ED Registration Date: 12/01/19 Care time: The patient presented to the Emergency Department on the above date and was hospitalized for further evaluation of their emergent condition. - New Patient This patient is new to me today: No - Critical Care Critical Care patient: No - Discharge Referral Referred to [facility] Med P.C.: No
--- NOTE | 2019-12-02 18:45 | CONS ---
DATE OF CONSULTATION: 12/01/2019 DATE OF DICTATION: 12/02/2019 INFECTIOUS DISEASE CONSULTATION REQUESTING PHYSICIAN: Hospitalist Service. CONSULTING PHYSICIAN: Jered Tucker MD. HISTORY OF PRESENT ILLNESS: This is a 74-year-old woman with a history of recurrent cellulitis and steroid responsive dermatitis, multiple antibiotic allergies. She was recently hospitalized from November 13 to November 22 at [facility]. During that admission, she was treated with IV antibiotics and discharged on triamcinolone cream. She was in the hospital, treated with linezolid and Azactam. After going home, she reports doing well until this prior weekend, when she noticed swelling of her left 2nd toe, and then she noted that she had erythema of her left thigh. She also noted that she had a little bleeding from a small ulcer on her leg, a small area of skin break. She has no fevers or chills. She was concerned and presented to the ER. PAST MEDICAL HISTORY: Notable for bilateral lower extremity edema with venous stasis ulcers, COPD on home oxygen, diastolic heart failure, atrial fibrillation on Eliquis, diabetes, hypertension, hyperlipidemia, Sjogren disease, spinal stenosis, osteoarthritis. She has had recurrent cellulitis in the past. She has had E. coli ESBL in her urine in the past, and MRSA from a leg wound in April 2019. SOCIAL HISTORY: There is no history of cigarette, alcohol, or substance use. She lives with her , and she has not yet scheduled to see a duct installer. ALLERGIES: PENICILLIN, CLINDAMYCIN, DOXYCYCLINE, LEVOFLOXACIN, VANCOMYCIN. MEDICATION: Her medications at home include Eliquis, vitamin C, bupropion, vitamin D, vitamin B12, Cardizem, Lasix, Neurontin, Mucinex, Plaquenil, Xopenex, metoprolol, Percocet, MiraLAX, simvastatin, Zantac, and triamcinolone cream. SURGICAL HISTORY: Notable for a right knee joint replacement over 10 years ago. REVIEW OF SYSTEMS: As per HPI. PHYSICAL EXAMINATION: General: She is awake and alert. She is afebrile. Vital Signs: Temperature 98, pulse 78, blood pressure 104/66, respiratory rate 20. HEENT: Normocephalic. Eyes are anicteric. Neck: Supple. Lungs: Clear to auscultation. Heart: Regular rate and rhythm. Abdomen: Soft, nontender. Skin: She has an area of patchy erythema on her left anterior thigh, which she states is new, and some erythema of the left 2nd toe, which she says is new, it began this weekend. LABORATORY: Notable for a white count of 4.5. Her hemoglobin is 12.2, platelets are 232. BUN and creatinine are 13 and 0.4. LFTs are normal. Cultures are pending. Chest x-ray is without infiltrate. IMPRESSION: In summary, this is a 74-year-old woman with recurrent cellulitis, steroid sensitive dermatitis, admitted with new erythema of her left thigh. Will treat her with daptomycin, would check a CPK if that has not been done, and would continue steroid cream. Further recommendations to follow. JERED TUCKER M.D. [id number]
[2019-12-02] MEDS: ATORVASTATIN CA 10 MG TABLET (FP) PO SCH (21:11)
[2019-12-02] MEDS: FAMOTIDINE 20 MG TABLET PO SCH (21:12)
[2019-12-03] MEDS: FUROSEMIDE 40 MG TABLET (FP) PO SCH ×2 (06:32→17:15)
[2019-12-03] MEDS: GABAPENTIN 400 MG CAPSULE (FP) PO SCH ×3 (06:32→21:34)
[2019-12-03] MEDS: INSULIN SLIDING SCALE (NOVOLOG) 1 VIAL SQ SCH ×4 (06:35→21:36)
[2019-12-03 08:51] LABS: BASO % 0.7 % (0-2.0); HEMATOCRIT 36.9 % (32.4-45.2); HEMOGLOBIN 11.5 GM/dL (10.7-15.3); LYMPH % 30.4 % (8-40); MCH 25.5 pg (25.7-33.7); MCHC 31.3 g/dl (32.0-36.0); MEAN CELL VOLUME 81.3 fl (80-96); MEAN PLT VOLUME 8.1 fl (7.5-11.1); MONO % 11.3 % (3.8-10.2); NEUT % 51.6 % (42.8-82.8); PLATELET COUNT 232 K/MM3 (134-434); RBC 4.53 M/mm3 (3.60-5.2); WHITE BLOOD COUNT 4.5 K/mm3 (4.0-10.0)
[2019-12-03] MEDS: HYDROXYCHLOROQUINE SO4 200 MG TABLET (FP) PO SCH (09:38)
[2019-12-03] MEDS: APIXABAN 5 MG TABLET PO SCH ×2 (09:38→21:34)
[2019-12-03] MEDS: ASCORBIC ACID 500 MG TABLET (FP) PO SCH (09:38)
[2019-12-03] MEDS: METOPROLOL TARTRATE 50 MG TABLET (FP) PO SCH ×2 (09:39→21:34)
[2019-12-03 11:03] LABS: ALBUMIN 2.6 g/dl (3.4-5.0); BILIRUBIN,TOTAL 0.4 mg/dL (0.2-1); BLOOD UREA NITROGEN 17.8 mg/dL (7-18); CALCIUM 8.5 mg/dL (8.5-10.1); CREATININE 0.5 mg/dL (0.55-1.3); MAGNESIUM 1.9 mg/dL (1.8-2.4); POTASSIUM 3.6 mmol/L (3.5-5.1); TOT PROT 5.4 g/dl (6.4-8.2)
[2019-12-03] MEDS: DAPTOMYCIN 500 MG in SODIUM CHLORIDE 50 ML IVPB SCH (12:09)
[2019-12-03] MEDS ORDERED: ALBUTEROL SO4 2.5/IPRATROPIUM 0.5 INH SOL 3 ML VIAL.NEB. NEB PRN (12:49)
[2019-12-03] MEDS ORDERED: ALBUTEROL SO4 2.5/IPRATROPIUM 0.5 INH SOL 3 ML VIAL.NEB. NEB ONE (13:15)
--- NOTE | 2019-12-03 16:57 | PN ---
Physical Exam: SUBJECTIVE: Patient seen and examined, tearful over losing her pet. denies any pain, denies any shortness of breath. OBJECTIVE: Patient is a 74 year old female with a significant past medical history of chronic venous stasis ulcers, COPD (on home oxygen), CHF, Atrial Fibrillation ( on Eliquis), Diabetes Mellitus, HTN, Srojen's disease, spinal stenosis, arthritis, MRSA+ cellulitis presents from home with concern for evolving cellulitis. Patient with multiple admissions for recurrent cellulitis of bilateral lower extremities. Patient with recent admission at [facility] on 11/13- for lower ext cellulitis and was treated with IV antibiotics (Aztronam/ zyvox) but she developed a rash on both arms and antibiotics discontinued. patient with multiple admissions at [facility], may benefit from wound care referral, or wound care nurse at home. Vital Signs Period Temp Pulse Resp BP Sys/William Pulse Ox Last 24 Hr 97.6 F-98.8 F 60-88 20-20 106-141/43-58 96-96 GENERAL: Awake, alert, and fully oriented, in no acute distress. HEAD: Normal with no signs of trauma. EYES: Pupils equal, round and reactive to light, extraocular movements intact, sclera anicteric, conjunctiva clear. No lid lag. EARS, NOSE, THROAT: Ears normal, nares patent, oropharynx clear without exudates. Moist mucous membranes. NECK: Normal range of motion, supple without lymphadenopathy, JVD, or masses. LUNGS: diminished bilaterally, home oxygen dependent at 3 liters. HEART: irregular, hx of afib ABDOMEN: large obese abdomen MUSCULOSKELETAL: Normal range of motion at all joints. No bony deformities or tenderness. No CVA tenderness. UPPER EXTREMITIES: No peripheral edema. NEUROLOGICAL: Normal speech. bed bound PSYCHIATRIC: Cooperative. Good eye contact. Appropriate mood and affect. SKIN: chronic skin changes consistent with stasis dermatitis and scaling skin. LLE erythematous, reddened, warm with tenderness from toes to medial thigh. 2 small pin sized wounds on anterior left funes, no drainage or odor. Sensation intact through b/l . RLE slightly cooler to touch but able to move toes PSYCH: Normal mood Laboratory Results - last 24 hr 12/03/19 12/03/19 12/03/19 06:33 07:35 07:35 WBC 4.5 RBC 4.53 Hgb 11.5 Hct 36.9 MCV 81.3 MCH 25.5 L MCHC 31.3 L RDW 18.0 H Plt Count 232 MPV 8.1 Absolute Neuts (auto) 2.3 Neutrophils % 51.6 D Lymphocytes % 30.4 D Monocytes % 11.3 H Eosinophils % 6.0 H Basophils % 0.7 Nucleated RBC % 0 Sodium 141 Potassium 3.6 Chloride 96 L Carbon Dioxide 40 H Anion Gap 6 L BUN 17.8 Creatinine 0.5 L Est GFR (CKD-EPI)AfAm 112.07 Est GFR (CKD-EPI)NonAf 96.69 POC Glucometer 86 Random Glucose 77 Calcium 8.5 Magnesium 1.9 Total Bilirubin 0.4 AST 12 L ALT 14 Alkaline Phosphatase 79 Creatine Kinase 17 L Total Protein 5.4 L Albumin 2.6 L 12/03/19 11:34 WBC RBC Hgb Hct MCV MCH MCHC RDW Plt Count MPV Absolute Neuts (auto) Neutrophils % Lymphocytes % Monocytes % Eosinophils % Basophils % Nucleated RBC % Sodium Potassium Chloride Carbon Dioxide Anion Gap BUN Creatinine Est GFR (CKD-EPI)AfAm Est GFR (CKD-EPI)NonAf POC Glucometer 97 Random Glucose Calcium Magnesium Total Bilirubin AST ALT Alkaline Phosphatase Creatine Kinase Total Protein Albumin Active Medications Generic Name Dose Route Start Last Admin Trade Name Freq PRN Reason Stop Dose Admin Albuterol/Ipratropium 1 amp 12/03/19 12:49 Duoneb - NEB Q6H PRN SHORTNESS OF BREATH Apixaban 5 mg 12/01/19 22:00 12/03/19 09:38 Eliquis - PO 5 mg BID BELL Administration Ascorbic Acid 1,000 mg 12/02/19 10:00 12/03/19 09:38 Vitamin C - PO 1,000 mg DAILY BELL Administration Atorvastatin Calcium 10 mg 12/01/19 22:00 12/02/19 21:11 Lipitor - PO 10 mg HS BELL Administration Bupropion HCl 150 mg 12/02/19 10:00 12/03/19 09:38 Wellbutrin Xl - PO 150 mg DAILY BELL Administration Diltiazem HCl 360 mg 12/02/19 10:00 12/03/19 09:38 Cardizem Cd - PO 360 mg DAILY BELL Administration Famotidine 20 mg 12/01/19 22:00 12/02/19 21:12 Pepcid - PO 20 mg HS BELL Administration Furosemide 60 mg 12/01/19 18:30 12/03/19 06:32 Lasix - PO 60 mg BID@0600,1800 BELL Administration Gabapentin 400 mg 12/01/19 22:00 12/03/19 14:26 Neurontin - PO 400 mg TID BELL Administration Hydroxychloroquine Sulfate 200 mg 12/02/19 10:00 12/03/19 09:38 Plaquenil - PO 200 mg DAILY BELL Administration Daptomycin 500 mg/ Sodium 50 mls @ 50 mls/hr 12/02/19 12:00 12/03/19 12:09 Chloride IVPB 50 mls/hr Q24H BELL Administration Protocol Insulin Aspart 1 vial 12/01/19 16:30 12/03/19 12:07 Novolog Vial Sliding Scale - SQ Not Given ACHS [facility] Protocol Metoprolol Tartrate 50 mg 12/01/19 22:00 12/03/19 09:39 Lopressor - PO 50 mg BID BELL Administration Oxycodone HCl 5 mg 12/02/19 09:19 12/02/19 21:12 Roxicodone - PO 5 mg Q6H PRN Administration PAIN LEVEL 7 - 10 ASSESSMENT/PLAN: Problem List - Problems (1) Cellulitis Assessment/Plan: Recent admission for lower ext celluliits. On last admission, patient on axtreonam & linezolid, but discontinued after she developed bilateral arm redness/hives. Multiple antibiotic allergies noted. ID consulted and started on trial of daptomycin wound care to LE with dressings of right leg, will wrap legs with evette and elevate above heart level seen by vascular Code(s): L03.90 - CELLULITIS, UNSPECIFIED (2) Acute on chronic diastolic (congestive) heart failure Assessment/Plan: on lasix bid check electrolytes daily Code(s): I50.33 - ACUTE ON CHRONIC DIASTOLIC (CONGESTIVE) HEART FAILURE (3) Afib Assessment/Plan: on cardizem and eliquis Code(s): I48.91 - UNSPECIFIED ATRIAL FIBRILLATION (4) COPD (chronic obstructive pulmonary disease) Assessment/Plan: continue home inhalers on xopenex Code(s): J44.9 - CHRONIC OBSTRUCTIVE PULMONARY DISEASE, UNSPECIFIED (5) Chronic depression Assessment/Plan: continue home medications Code(s): F32.9 - MAJOR DEPRESSIVE DISORDER, SINGLE EPISODE, UNSPECIFIED (6) MRSA cellulitis Assessment/Plan: recent history of MRSA maintain contact precautions Code(s): L03.90 - CELLULITIS, UNSPECIFIED; B95.62 - METHICILLIN RESIS STAPH INFCT CAUSING DISEASES CLASSD ELSWHR (7) [place]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 recommended evette bandage wrapping at all times. Code(s): L98.8 - OTH DISRD OF THE SKIN AND SUBCUTANEOUS TISSUE (8) HLD (hyperlipidemia) Assessment/Plan: continue lipitor Code(s): E78.5 - HYPERLIPIDEMIA, UNSPECIFIED (9) HTN (hypertension) Assessment/Plan: on toprol and cardizem bp stable Code(s): I10 - ESSENTIAL (PRIMARY) HYPERTENSION (10) Sjogrens syndrome Assessment/Plan: outpatient follow up with pcp Code(s): M35.00 - SICCA SYNDROME, UNSPECIFIED (11) Prophylactic measure Assessment/Plan: fen tolerating PO monitor electrolytes low salt diet full code Code(s): Z29.9 - ENCOUNTER FOR PROPHYLACTIC MEASURES, UNSPECIFIED Visit type - Emergency Visit Emergency Visit: Yes ED Registration Date: 12/01/19 Care time: The patient presented to the Emergency Department on the above date and was hospitalized for further evaluation of their emergent condition. - New Patient This patient is new to me today: No - Critical Care Critical Care patient: No - Discharge Referral Referred to [facility] Med P.C.: No
[2019-12-03] MEDS: ATORVASTATIN CA 10 MG TABLET (FP) PO SCH (21:33)
[2019-12-03] MEDS: FAMOTIDINE 20 MG TABLET PO SCH (21:36)
[2019-12-03] MEDS: oxyCODONE HCL 5 MG TABLET PO PRN (21:37)
[2019-12-04] MEDS: GABAPENTIN 400 MG CAPSULE (FP) PO SCH ×3 (05:25→22:25)
[2019-12-04] MEDS: FUROSEMIDE 40 MG TABLET (FP) PO SCH ×2 (05:26→19:47)
[2019-12-04] MEDS: INSULIN SLIDING SCALE (NOVOLOG) 1 VIAL SQ SCH ×4 (06:19→22:26)
[2019-12-04 07:53] LABS: BASO % 0.3 % (0-2.0); HEMATOCRIT 36.6 % (32.4-45.2); HEMOGLOBIN 11.5 GM/dL (10.7-15.3); LYMPH % 19.7 % (8-40); MCH 25.4 pg (25.7-33.7); MCHC 31.4 g/dl (32.0-36.0); MEAN PLT VOLUME 7.8 fl (7.5-11.1); MONO % 10.1 % (3.8-10.2); NEUT % 64.9 % (42.8-82.8); PLATELET COUNT 237 K/MM3 (134-434); RBC 4.53 M/mm3 (3.60-5.2); RDW 17.2 % (11.6-15.6); WHITE BLOOD COUNT 6.2 K/mm3 (4.0-10.0)
[2019-12-04 08:18] LABS: ALBUMIN 2.7 g/dl (3.4-5.0); BILIRUBIN,TOTAL 0.4 mg/dL (0.2-1); BLOOD UREA NITROGEN 18.9 mg/dL (7-18); CALCIUM 8.7 mg/dL (8.5-10.1); CREATININE 0.5 mg/dL (0.55-1.3); POTASSIUM 3.5 mmol/L (3.5-5.1); TOT PROT 5.6 g/dl (6.4-8.2)
[2019-12-04] MEDS: APIXABAN 5 MG TABLET PO SCH ×2 (09:36→22:25)
[2019-12-04] MEDS: HYDROXYCHLOROQUINE SO4 200 MG TABLET (FP) PO SCH (09:36)
[2019-12-04] MEDS: ASCORBIC ACID 500 MG TABLET (FP) PO SCH (09:36)
[2019-12-04] MEDS: METOPROLOL TARTRATE 50 MG TABLET (FP) PO SCH ×2 (09:37→22:25)
--- NOTE | 2019-12-04 10:51 | PN ---
Progress Note (short form) - Note Progress Note: no real improvement of her leg toe erythema resolved Vital Signs Period Temp Pulse Resp BP Sys/William Pulse Ox Last 24 Hr 97.8 F-98.1 F 65-97 - 95-114/35-77 cor-rrr lungs clear abd soft,nt ext toe erythema resolved left thigh with patchy erythema- not hot or painful CBC, BMP 12/04/19 07:10 12/04/19 07:10 Microbiology 12/03/19 11:15 Urine - Urine Clean Catch Urine Culture - Final Contaminated: Please Repeat 12/01/19 12:31 Blood - Peripheral Venous Blood Culture - Preliminary NO GROWTH OBTAINED AFTER 48 HOURS, INCUBATION TO CONTINUE FOR 3 DAYS. 12/01/19 12:31 Blood - Peripheral Venous Blood Culture - Preliminary NO GROWTH OBTAINED AFTER 48 HOURS, INCUBATION TO CONTINUE FOR 3 DAYS. 12/01/19 20:00 Urine - Urine Clean Catch Urine Culture - Final Contaminated: Please Repeat a/p erythema left thigh (new)-recurrent cellulitis/steroid responsive dermatitis no fevers trial daptomycin-multiple antibiotic allergies steroid cream added- (see vascular note) for contact dermatitis Problem List - Problems (1) Cellulitis Code(s): L03.90 - CELLULITIS, UNSPECIFIED (2) Dermatitis Code(s): L30.9 - DERMATITIS, UNSPECIFIED (3) Allergy to multiple antibiotics Code(s): Z88.1 - ALLERGY STATUS TO OTHER ANTIBIOTIC AGENTS STATUS
[2019-12-04] MEDS ORDERED: PT OWN MED DRAWER 7, Y5N ONE ×2 (12:06→12:59)
[2019-12-04] MEDS: HYDROCORTISONE 0.5% TOPICAL CREAM 30 GM TUBE TP SCH ×2 (12:11→22:27)
[2019-12-04] MEDS: DAPTOMYCIN 500 MG in SODIUM CHLORIDE 50 ML IVPB SCH (13:05)
[2019-12-04] MEDS ORDERED: POLYETHYLENE GLYCOL 3350 119 GM BTL PO ONE (14:58)
--- NOTE | 2019-12-04 16:28 | PN ---
Physical Exam: SUBJECTIVE: Patient seen and examined at the bedside. denies any pain. OBJECTIVE: Patient is a 74 year old female with a significant past medical history of chronic venous stasis ulcers, COPD (on home oxygen), CHF, Atrial Fibrillation ( on Eliquis), Diabetes Mellitus, HTN, Srojen's disease, spinal stenosis, arthritis, MRSA+ cellulitis presents from home with concern for evolving cellulitis. Patient with multiple admissions for recurrent cellulitis of bilateral lower extremities. Patient with recent admission at [facility] on 11/13- for lower ext cellulitis and was treated with IV antibiotics (Aztronam/ zyvox) but she developed a rash on both arms and antibiotics discontinued. patient with multiple admissions at [facility], may benefit from wound care referral, or wound care nurse at home to avoid frequent hospitalizations. Vital Signs Period Temp Pulse Resp BP Sys/William Pulse Ox Last 24 Hr 97.8 F-98.2 F 64-97 20-20 90-122/35-77 GENERAL: Awake, alert, and fully oriented, in no acute distress. HEAD: Normal with no signs of trauma. EYES: Pupils equal, round and reactive to light, extraocular movements intact, sclera anicteric, conjunctiva clear. No lid lag. EARS, NOSE, THROAT: Ears normal, nares patent, oropharynx clear without exudates. Moist mucous membranes. NECK: Normal range of motion, supple without lymphadenopathy, JVD, or masses. LUNGS: diminished bilaterally, home oxygen dependent at 3 liters. HEART: irregular, hx of afib ABDOMEN: large obese abdomen MUSCULOSKELETAL: Normal range of motion at all joints. No bony deformities or tenderness. No CVA tenderness. UPPER EXTREMITIES: No peripheral edema. NEUROLOGICAL: Normal speech. bed bound PSYCHIATRIC: Cooperative. Good eye contact. Appropriate mood and affect. SKIN: chronic skin changes consistent with stasis dermatitis and scaling skin. LLE erythematous, reddened, warm with tenderness from toes to medial thigh. two small pin sized wounds on anterior left funes, no drainage or odor. Sensation intact through b/l . RLE slightly cooler to touch but able to move toes Laboratory Results - last 24 hr 12/03/19 12/04/19 12/04/19 21:30 07:10 07:10 WBC 6.2 RBC 4.53 Hgb 11.5 Hct 36.6 MCV 81.0 MCH 25.4 L MCHC 31.4 L RDW 17.2 H Plt Count 237 MPV 7.8 Absolute Neuts (auto) 4.0 Neutrophils % 64.9 D Lymphocytes % 19.7 D Monocytes % 10.1 Eosinophils % 5.0 H Basophils % 0.3 Nucleated RBC % 0 Sodium 141 Potassium 3.5 Chloride 95 L Carbon Dioxide 42 H Anion Gap 4 L BUN 18.9 H Creatinine 0.5 L Est GFR (CKD-EPI)AfAm 112.07 Est GFR (CKD-EPI)NonAf 96.69 POC Glucometer 160 Random Glucose 80 Calcium 8.7 Magnesium 2.0 Total Bilirubin 0.4 AST 13 L ALT 13 Alkaline Phosphatase 79 Total Protein 5.6 L Albumin 2.7 L 12/04/19 11:59 WBC RBC Hgb Hct MCV MCH MCHC RDW Plt Count MPV Absolute Neuts (auto) Neutrophils % Lymphocytes % Monocytes % Eosinophils % Basophils % Nucleated RBC % Sodium Potassium Chloride Carbon Dioxide Anion Gap BUN Creatinine Est GFR (CKD-EPI)AfAm Est GFR (CKD-EPI)NonAf POC Glucometer 125 Random Glucose Calcium Magnesium Total Bilirubin AST ALT Alkaline Phosphatase Total Protein Albumin Active Medications Generic Name Dose Route Start Last Admin Trade Name Freq PRN Reason Stop Dose Admin Albuterol/Ipratropium 1 amp 12/03/19 12:49 Duoneb - NEB Q6H PRN SHORTNESS OF BREATH Apixaban 5 mg 12/01/19 22:00 12/04/19 09:36 Eliquis - PO 5 mg BID BELL Administration Ascorbic Acid 1,000 mg 12/02/19 10:00 12/04/19 09:36 Vitamin C - PO 1,000 mg DAILY BELL Administration Atorvastatin Calcium 10 mg 12/01/19 22:00 12/03/19 21:33 Lipitor - PO 10 mg HS BELL Administration Bupropion HCl 150 mg 12/02/19 10:00 12/04/19 09:36 Wellbutrin Xl - PO 150 mg DAILY BELL Administration Diltiazem HCl 360 mg 12/02/19 10:00 12/04/19 09:36 Cardizem Cd - PO 360 mg DAILY BELL Administration Docusate Sodium 100 mg 12/04/19 15:00 Colace - PO TID BELL Famotidine 20 mg 12/01/19 22:00 12/03/19 21:36 Pepcid - PO 20 mg HS BELL Administration Furosemide 60 mg 12/01/19 18:30 12/04/19 05:26 Lasix - PO 60 mg BID@0600,1800 BELL Administration Gabapentin 400 mg 12/01/19 22:00 12/04/19 14:37 Neurontin - PO 400 mg TID BELL Administration Hydrocortisone 1 applic 12/04/19 10:45 12/04/19 12:11 Hytone 0.5% Cream - TP 1 applic BID BELL Administration Hydroxychloroquine Sulfate 200 mg 12/02/19 10:00 12/04/19 09:36 Plaquenil - PO 200 mg DAILY BELL Administration Daptomycin 500 mg/ Sodium 50 mls @ 50 mls/hr 12/02/19 12:00 12/04/19 13:05 Chloride IVPB 50 mls/hr Q24H BELL Administration Protocol Insulin Aspart 1 vial 12/01/19 16:30 12/04/19 12:02 Novolog Vial Sliding Scale - SQ Not Given ACHS [facility] Protocol Metoprolol Tartrate 50 mg 12/01/19 22:00 12/04/19 09:37 Lopressor - PO 50 mg BID BELL Administration Oxycodone HCl 5 mg 12/02/19 09:19 12/03/19 21:37 Roxicodone - PO 5 mg Q6H PRN Administration PAIN LEVEL 7 - 10 ASSESSMENT/PLAN: Problem List - Problems (1) Cellulitis Assessment/Plan: Recent admission for lower ext celluliits. On last admission, patient on axtreonam & linezolid, but discontinued after she developed bilateral arm redness/hives. Multiple antibiotic allergies noted. ID consulted and started on trial of daptomycin wound care to LE with dressings of right leg, will wrap legs with evette and elevate above heart level seen by vascular Code(s): L03.90 - CELLULITIS, UNSPECIFIED (2) Acute on chronic diastolic (congestive) heart failure Assessment/Plan: on lasix bid check electrolytes daily Code(s): I50.33 - ACUTE ON CHRONIC DIASTOLIC (CONGESTIVE) HEART FAILURE (3) Afib Assessment/Plan: on cardizem and eliquis Code(s): I48.91 - UNSPECIFIED ATRIAL FIBRILLATION (4) COPD (chronic obstructive pulmonary disease) Assessment/Plan: continue home inhalers on xopenex Code(s): J44.9 - CHRONIC OBSTRUCTIVE PULMONARY DISEASE, UNSPECIFIED (5) Chronic depression Assessment/Plan: continue home medications Code(s): F32.9 - MAJOR DEPRESSIVE DISORDER, SINGLE EPISODE, UNSPECIFIED (6) MRSA cellulitis Assessment/Plan: recent history of MRSA maintain contact precautions Code(s): L03.90 - CELLULITIS, UNSPECIFIED; B95.62 - METHICILLIN RESIS STAPH INFCT CAUSING DISEASES CLASSD ELSWHR (7) [place]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 recommended evette bandage wrapping at all times. Code(s): L98.8 - OTH DISRD OF THE SKIN AND SUBCUTANEOUS TISSUE (8) HLD (hyperlipidemia) Assessment/Plan: continue lipitor Code(s): E78.5 - HYPERLIPIDEMIA, UNSPECIFIED (9) HTN (hypertension) Assessment/Plan: on toprol and cardizem bp stable Code(s): I10 - ESSENTIAL (PRIMARY) HYPERTENSION (10) Sjogrens syndrome Assessment/Plan: outpatient follow up with pcp Code(s): M35.00 - SICCA SYNDROME, UNSPECIFIED (11) Prophylactic measure Assessment/Plan: fen tolerating PO monitor electrolytes low salt diet full code Code(s): Z29.9 - ENCOUNTER FOR PROPHYLACTIC MEASURES, UNSPECIFIED Visit type - Emergency Visit Emergency Visit: Yes ED Registration Date: 12/01/19 Care time: The patient presented to the Emergency Department on the above date and was hospitalized for further evaluation of their emergent condition. - New Patient This patient is new to me today: No - Critical Care Critical Care patient: No - Discharge Referral Referred to [facility] Med [facility].C.: No
[2019-12-04] MEDS: DOCUSATE SODIUM 100 MG CAPSULE (FP) PO SCH ×2 (16:36→22:25)
[2019-12-04] MEDS: oxyCODONE HCL 5 MG TABLET PO PRN (16:44)
[2019-12-04] MEDS: ATORVASTATIN CA 10 MG TABLET (FP) PO SCH (22:25)
[2019-12-04] MEDS: FAMOTIDINE 20 MG TABLET PO SCH (22:26)
[2019-12-05] MEDS: DOCUSATE SODIUM 100 MG CAPSULE (FP) PO SCH ×3 (06:05→13:25)
[2019-12-05] MEDS: INSULIN SLIDING SCALE (NOVOLOG) 1 VIAL SQ SCH ×2 (06:05→11:16)
[2019-12-05] MEDS: FUROSEMIDE 40 MG TABLET (FP) PO SCH (06:05)
[2019-12-05] MEDS: GABAPENTIN 400 MG CAPSULE (FP) PO SCH ×2 (06:05→13:23)
[2019-12-05] MEDS: oxyCODONE HCL 5 MG TABLET PO PRN (06:09)
[2019-12-05 07:45] LABS: BASO % 0.4 % (0-2.0); EOS % 4.9 % (0-4.5); HEMATOCRIT 36.8 % (32.4-45.2); HEMOGLOBIN 11.6 GM/dL (10.7-15.3); LYMPH % 19.1 % (8-40); MCH 25.9 pg (25.7-33.7); MCHC 31.6 g/dl (32.0-36.0); MEAN CELL VOLUME 81.8 fl (80-96); MEAN PLT VOLUME 7.9 fl (7.5-11.1); MONO % 10.6 % (3.8-10.2); PLATELET COUNT 241 K/MM3 (134-434); RDW 17.5 % (11.6-15.6); WHITE BLOOD COUNT 7.4 K/mm3 (4.0-10.0)
[2019-12-05 08:18] LABS: ALBUMIN 2.7 g/dl (3.4-5.0); BILIRUBIN,TOTAL 0.4 mg/dL (0.2-1); BLOOD UREA NITROGEN 18.9 mg/dL (7-18); CALCIUM 8.6 mg/dL (8.5-10.1); CREATININE 0.5 mg/dL (0.55-1.3); MAGNESIUM 1.9 mg/dL (1.8-2.4); POTASSIUM 3.8 mmol/L (3.5-5.1); TOT PROT 5.6 g/dl (6.4-8.2)
[2019-12-05 09:16] VITALS: BP 111/50; PULSE 92; TEMP 98.1
[2019-12-05] MEDS: METOPROLOL TARTRATE 50 MG TABLET (FP) PO SCH (09:22)
[2019-12-05] MEDS: APIXABAN 5 MG TABLET PO SCH (09:22)
[2019-12-05] MEDS: HYDROXYCHLOROQUINE SO4 200 MG TABLET (FP) PO SCH (09:23)
[2019-12-05] MEDS: ASCORBIC ACID 500 MG TABLET (FP) PO SCH (09:23)
[2019-12-05] MEDS: HYDROCORTISONE 0.5% TOPICAL CREAM 30 GM TUBE TP SCH (09:30)
--- NOTE | 2019-12-05 10:25 | PN ---
Progress Note (short form) - Note Progress Note: minimal erythema of the left thigh Vital Signs Period Temp Pulse Resp BP Sys/William Pulse Ox Last 24 Hr 98.1 F-99.2 F 72-92 18-20 93-131/48-76 cor-rrr lungs clear abd soft,nt minimal erythema of the left thight venous dermatitis unchanged-at baseline CBC, BMP 12/05/19 06:10 12/05/19 06:10 Microbiology 12/01/19 12:31 Blood - Peripheral Venous Blood Culture - Preliminary NO GROWTH OBTAINED AFTER 72 HOURS, INCUBATION TO CONTINUE FOR 2 DAYS. 12/01/19 12:31 Blood - Peripheral Venous Blood Culture - Preliminary NO GROWTH OBTAINED AFTER 72 HOURS, INCUBATION TO CONTINUE FOR 2 DAYS. 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
[2019-12-05] MEDS: DAPTOMYCIN 500 MG in SODIUM CHLORIDE 50 ML IVPB SCH ×2 (10:52→11:25)
--- NOTE | 2019-12-05 11:07 | DS ---
Physical Exam: SUBJECTIVE: Patient seen and examined at the bedside. for discharge home today. OBJECTIVE: Patient is a 74 year old female with a significant past medical history of chronic venous stasis ulcers, COPD (on home oxygen), CHF, Atrial Fibrillation ( on Eliquis), Diabetes Mellitus, HTN, Srojen's disease, spinal stenosis, arthritis, MRSA+ cellulitis presents from home with concern for evolving cellulitis. Patient was treated with Daptomycin from 12/02 to 12/05/2019 with improvement of her bilateral leg redness but her left upper thigh still with minimal redness. Patient to be discharged home today with follow up with dermatology and allergiest. She is also encouraged to follow up with her PCP. She will be sent home with Bactroban ointment and mupirocin cream for her left upper thigh. Patient with multiple admissions for recurrent cellulitis of bilateral lower extremities. Patient with recent admission at [facility] on 11/13-11/22/2019 for lower ext cellulitis and was treated with IV antibiotics (Aztronam/zyvox) but she developed a rash on both arms and antibiotics discontinued. patient with multiple admissions at [facility], may benefit from wound care referral, or wound care nurse at home to avoid frequent hospitalizations. She is also encourged to see a grain spouter and an food and beverage service manager, but she is concerned for the cost of transportation to office visits. HOSPITAL COURSE BY PROBLEM LIST BELOW: Vital Signs Period Temp Pulse Resp BP Sys/William Pulse Ox Last 24 Hr 98.1 F-99.2 F 72-92 18-20 93-131/48-76 98 PHYSICAL EXAM GENERAL: Awake, alert, and fully oriented, in no acute distress. HEAD: Normal with no signs of trauma. EYES: Pupils equal, round and reactive to light, extraocular movements intact, sclera anicteric, conjunctiva clear. No lid lag. EARS, NOSE, THROAT: Ears normal, nares patent, oropharynx clear without exudates. Moist mucous membranes. NECK: Normal range of motion, supple without lymphadenopathy, JVD, or masses. LUNGS: diminished bilaterally, home oxygen dependent at 3 liters. HEART: irregular, hx of afib ABDOMEN: large obese abdomen MUSCULOSKELETAL: Normal range of motion at all joints. No bony deformities or tenderness. No CVA tenderness. UPPER EXTREMITIES: No peripheral edema. NEUROLOGICAL: Normal speech. bed bound PSYCHIATRIC: Cooperative. Good eye contact. Appropriate mood and affect. SKIN: chronic skin changes consistent with stasis dermatitis and scaling skin. LLE and RLE with with no further redness/erythema (legs wrapped lightly with isabell). Left anterior thigh with redness, patient to be discharged on two creams for left thigh redness (bactroban and mupirocin). She is encouraged to follow up with an food and beverage service manager as well as grain spouter. LABS Laboratory Results - last 24 hr 12/04/19 12/05/19 12/05/19 11:59 06:10 06:10 WBC 7.4 RBC 4.50 Hgb 11.6 Hct 36.8 MCV 81.8 MCH 25.9 MCHC 31.6 L RDW 17.5 H Plt Count 241 MPV 7.9 Absolute Neuts (auto) 4.8 Neutrophils % 65.0 Lymphocytes % 19.1 Monocytes % 10.6 H Eosinophils % 4.9 H Basophils % 0.4 Nucleated RBC % 0 Sodium 138 Potassium 3.8 Chloride 95 L Carbon Dioxide 39 H Anion Gap 3 L BUN 18.9 H Creatinine 0.5 L Est GFR (CKD-EPI)AfAm 112.07 Est GFR (CKD-EPI)NonAf 96.69 POC Glucometer 125 Random Glucose 79 Calcium 8.6 Magnesium 1.9 Total Bilirubin 0.4 AST 12 L ALT 14 Alkaline Phosphatase 79 Total Protein 5.6 L Albumin 2.7 L HOSPITAL COURSE: Date of Admission:12/01/19 Date of Discharge: 12/05/19 Minutes to complete discharge: 45 Discharge Summary Problems reviewed: Yes Reason For Visit: CELLULITIS Current Active Problems Allergy to multiple antibiotics (Acute) Cellulitis (Acute) Dermatitis (Acute) Condition: Stable - Instructions Diet, Activity, Other Instructions: Mrs Torres: You were admitted to the hospital because you were having bleeding and increased redness of legs and left thigh redness. We started you on steroids that have worked for you in the past and had the vascular surgery/wound care team come see you. He recommended that you clean the right leg with normal saline and gauze and keep legs wrapped with Kerlix and change it daily. For the left thigh anterior redness we we recommend that you continue the steriod cream that we called into your pharmacy. Keep your legs elevated above the level of the heart. Please continue all other home medications as directed. Please follow-up with Dr. Gonzalez within 1 week to continue your wound care. Please follow-up with Dr. Boykin to update him on this admission and to continue your health maintenance. Please follow up with a grain spouter and food and beverage service manager for allergy testing. Thank you for allowing us to care for you. Referrals: Mike Boykin MD [Primary Care Provider] - Margarita Lancaster [Staff Physician] - Disposition: HOME - Home Medications Comprehensive Discharge Medication List: Ambulatory Orders Acetaminophen [Tylenol Extra Strength] 500 mg PO Q6H PRN 10/25/19 Apixaban [Eliquis -] 5 mg PO BID 10/25/19 Ascorbate Calcium [Vitamin C] 1,000 mg PO DAILY 10/25/19 Bupropion HCl [Bupropion Xl] 150 mg PO DAILY 10/25/19 Cholecalciferol (Vitamin D3) [Vitamin D3] 1,000 unit PO DAILY 10/25/19 Cyanocobalamin [Vitamin B12 -] 1,000 mcg PO DAILY 10/25/19 Diltiazem Cd [Cardizem Cd -] 360 mg PO DAILY 10/25/19 Furosemide [Lasix -] 60 mg PO BID 10/25/19 Gabapentin [Neurontin -] 400 mg PO Q8H 10/25/19 Guaifenesin [Mucinex] 600 mg PO DAILY 10/25/19 Hydroxychloroquine So4 [Plaquenil -] 200 mg PO DAILY 10/25/19 Levalbuterol HCl [Xopenex] 0.31 mg IH Q8H PRN 10/25/19 Metoprolol Tartrate 50 mg PO BID 10/25/19 Mineral Oil/Pet Hy-Phl [Aquaphor -] 1 applic TP DAILY 10/25/19 Oxycodone HCl/Acetaminophen [Percocet 5-325 mg Tablet] 1 tablet PO QID PRN 10/25 Polyethylene Glycol 3350 17 gm PO DAILY 10/25/19 Ranitidine HCl 150 mg PO HS 10/25/19 Simvastatin 10 mg PO HS 10/25/19 predniSONE [Deltasone -] See Taper PO ASDIR #81 tab 10/27/19 Bupropion HCl [Wellbutrin Xl -] 150 mg PO DAILY tab.sr.24h 11/22/19 Hydrocortisone 0.5% Cream [Hytone 0.5% Cream -] 1 applic TP BID #2 tube Mupirocin Ointment [Bactroban 2% Ointment -] 1 applic TP BID #1 tube 12/05/19 Problem List - Problems (1) Cellulitis Assessment/Plan: cellulitis of lower extremites resolved with Daptomycin Left upper thigh redness with some improvement, but still mildly reddened. She will be discharged with outpatient referral to dermatology, food and beverage service manager also encouraged for testing. Encouraged outpatient follow up with her PCP to evaluate left upper thigh healing. Encouraged to keep lower legs wrapped for protection and to follow up with vascular. Code(s): L03.90 - CELLULITIS, UNSPECIFIED (2) Acute on chronic diastolic (congestive) heart failure Assessment/Plan: on lasix bid Code(s): I50.33 - ACUTE ON CHRONIC DIASTOLIC (CONGESTIVE) HEART FAILURE (3) Afib Assessment/Plan: on cardizem and eliquis Code(s): I48.91 - UNSPECIFIED ATRIAL FIBRILLATION (4) COPD (chronic obstructive pulmonary disease) Assessment/Plan: continue home inhalers on xopenex Code(s): J44.9 - CHRONIC OBSTRUCTIVE PULMONARY DISEASE, UNSPECIFIED (5) Chronic depression Assessment/Plan: continue home medications Code(s): F32.9 - MAJOR DEPRESSIVE DISORDER, SINGLE EPISODE, UNSPECIFIED (6) MRSA cellulitis Assessment/Plan: recent history of MRSA maintain contact precautions Code(s): L03.90 - CELLULITIS, UNSPECIFIED; B95.62 - METHICILLIN RESIS STAPH INFCT CAUSING DISEASES CLASSD ELSWHR (7) [place]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 recommended evette bandage wrapping at all times. Code(s): L98.8 - OTH DISRD OF THE SKIN AND SUBCUTANEOUS TISSUE (8) HLD (hyperlipidemia) Assessment/Plan: continue lipitor Code(s): E78.5 - HYPERLIPIDEMIA, UNSPECIFIED (9) HTN (hypertension) Assessment/Plan: on toprol and cardizem bp stable Code(s): I10 - ESSENTIAL (PRIMARY) HYPERTENSION (10) Sjogrens syndrome Assessment/Plan: outpatient follow up with pcp Code(s): M35.00 - SICCA SYNDROME, UNSPECIFIED (11) Prophylactic measure Assessment/Plan: discharge home Code(s): Z29.9 - ENCOUNTER FOR PROPHYLACTIC MEASURES, UNSPECIFIED - Discharge Referral Referred to [facility] No
== END 2019-12-05 15:51 | disposition home or self-care (01) | DRG 603 ==
LOC: JER 11:51 → JERBED 14:05 → J8W 17:16
PROVIDERS: ADMIT Internal Medicine; ATTEND Nurse Practitioner Family
DX: L03.116 Cellulitis of left lower limb (principal); L97.908 Non-pressure chronic ulcer of unspecified part of unspecified lower leg with other specified severity; I50.32 Chronic diastolic (congestive) heart failure; I11.0 Hypertensive heart disease with heart failure; L03.115 Cellulitis of right lower limb; R00.0 Tachycardia, unspecified; J44.9 Chronic obstructive pulmonary disease, unspecified; I48.91 Unspecified atrial fibrillation; E78.5 Hyperlipidemia, unspecified; E11.9 Type 2 diabetes mellitus without complications; M35.00 Sjogren syndrome, unspecified; L98.8 Other specified disorders of the skin and subcutaneous tissue; L30.9 Dermatitis, unspecified; B95.62 Methicillin resistant Staphylococcus aureus infection as the cause of diseases classified elsewhere; F32.9 Major depressive disorder, single episode, unspecified; I83.009 Varicose veins of unspecified lower extremity with ulcer of unspecified site; Z99.81 Dependence on supplemental oxygen; Z88.1 Allergy status to other antibiotic agents
CPT/HCPCS: 36415; 71045-TC-FY; 80053; 81003; 82550; 82553; 82962; 83605; 83735; 83880; 84100; 84484; 85025; 85027; 85610; 85730; 87040; 87086; 93005; 93010; 93970-TC; 94640; 99283-25; J0878

== ENCOUNTER 2020-07-24 15:51 | Observation (INO) | payer OTHER, MEDICARE ==
--- NOTE | 2020-07-24 16:15 | PDOC ---
History of Present Illness - General Chief Complaint: CVA/TIA Stated Complaint: POSSIBLE TIA - History of Present Illness Initial Comments: 75 yo female with PMH of HTN, HLD, Afib, Diastolic HF presents 4 hours after "stroke symptoms". Pt says she experienced a gradual onset of weakness, abnormal speaking, and began dropping items. She denies MCGEE, burry vision, CP, SOB, nvd, dysuria. She has never had a stroke/MT. She follows with Dr. Boykin. NIH Stroke Scale - Last Known Well Date/Time & Onset Date Last Known Well: 07/24/20 Time Last Known Well: 12:00 - Initial Evaluation Level of consciousness: Alert Ask patient the month and their age: Answers both correctly Ask patient to open & close eyes; make fist and let go: Obeys both correctly Best gaze (horizontal eye movement): Normal Visual field testing: No visual field loss Facial paresis (Show teeth/raise eyebrows/close eyes tight): Normal symmetrical movement Motor Function: Left Arm: Normal Motor Function: Right Arm: Normal (extends arm 90 (or 45) degrees for 10 seconds without drift Motor Function: Left Leg: Normal (extends leg 30 degrees for 5 seconds without drift) Motor Function: Right Leg: Normal (extends leg 30 degrees for 5 seconds without drift) Limb Ataxia: No ataxia Sensory(Use pinprick test arms,legs,trunk,face/side to side): Normal Best language (Describe picture, name items, read sentences): No Aphasia Dysarthria (read several words): Normal articulation Extinction and Inattention: No abnormality - Total Score NIH Stroke Scale Score: 0 Past History - Medical History Allergies/Adverse Reactions: Allergies Allergy/AdvReac Type Severity Reaction Status Date / Time Penicillins Allergy Severe Swelling Verified 07/24/20 16:09 clindamycin Allergy Mild Rash Verified 07/24/20 16:09 doxycycline Allergy Swelling Verified 07/24/20 16:09 levofloxacin [From Levaquin] Allergy Rash Verified 07/24/20 16:09 vancomycin AdvReac Mild Itching Verified 07/24/20 16:09 adhesive tape AdvReac "RIPS MY Verified 07/24/20 16:09 SKIN" Home Medications: Ambulatory Orders Acetaminophen [Tylenol Extra Strength] 500 mg PO Q6H PRN 10/25/19 Apixaban [Eliquis -] 5 mg PO BID 10/25/19 Ascorbate Calcium [Vitamin C] 1,000 mg PO DAILY 10/25/19 Bupropion HCl [Bupropion Xl] 150 mg PO DAILY 10/25/19 Cholecalciferol (Vitamin D3) [Vitamin D3] 1,000 unit PO DAILY 10/25/19 Cyanocobalamin [Vitamin B12 -] 1,000 mcg PO DAILY 10/25/19 Furosemide [Lasix -] 40 mg PO DAILY 10/25/19 Gabapentin [Neurontin -] 400 mg PO Q8H 10/25/19 Guaifenesin [Mucinex] 600 mg PO DAILY 10/25/19 Levalbuterol HCl [Xopenex] 0.31 mg IH Q8H PRN 10/25/19 Oxycodone HCl/Acetaminophen [Percocet 5-325 mg Tablet] 1 tablet PO QID PRN 10/25/19 Polyethylene Glycol 3350 17 gm PO DAILY PRN 10/25/19 Simvastatin 10 mg PO HS 10/25/19 Metoprolol Succinate [Toprol Xl -] 50 mg PO BID 07/24/20 Anemia: No Asthma: No Cancer: No Cardiac Disorders: Yes (AFIB) CVA: No COPD: Yes (HOME O2 3L) CHF: Yes Dementia: No Diabetes: No GI Disorders: Yes (GERD) Disorders: No HTN: Yes Hypercholesterolemia: Yes Liver Disease: No Seizures: No Thyroid Disease: Yes (LEFT THYROID LUMP) - Surgical History Abdominal Surgery: No Appendectomy: No Cardiac Surgery: No Cholecystectomy: No Lung Surgery: No Neurologic Surgery: No Orthopedic Surgery: Yes (BILATERAL KNEE REPLACEMENT) - Reproductive History Is Patient Now?: No - Immunization History Immunization Up to Date: No - Psycho-Social/Smoking History Smoking History: Never smoked Have you smoked in the past 12 months: No Number of Cigarettes Smoked Daily: 0 If you are a former smoker, when did you quit?: 1985 Cigars Per Day: 0 Information on smoking cessation initiated: No 'Breaking Loose' booklet given: 08/30/17 - Substance Abuse Hx (Audit-C & DAST Scrn) How often the patient has a drink containing alcohol: Monthly or less Number of drinks the patient has on a typical day: 1 or 2 How often the patient has six or more drinks on one occasion: Never Score: In Men: 4 or > Positive; In Women: 3 or > Positive: 1 Screen Result (Pos requires Nsg. Audit-10AR): Negative In the last yr the pt used illegal drug/Rx for NonMed reason: No Score: Yes response is considered Positive: 0 Screen Result (Positive result requires Nsg. DAST-10): Negative Review of Systems - Review of Systems Able to Perform ROS?: Yes Constitutional: Yes: Other. No: Chills, Fever HEENTM: No: Recent change in vision, Double Vision Respiratory: Yes: Shortness of Breath. No: Cough Cardiac (ROS): No: Chest Pain, Palpitations, Syncope ABD/GI: No: Diarrhea, Nausea, Vomiting : No: Burning, Dysuria, Flank Pain, Hematuria Musculoskeletal: No: Joint Pain, Joint Swelling Integumentary: No: Erythema, Flushing, Lesions Neurological: Yes: Weakness. No: Headache, Ataxia, Dizziness Psychiatric: No: Anxiety, Depression, Mood Swings Endocrine: No: Intolerance to Cold, Intolerance to Heat *Physical Exam - Vital Signs Last Vital Signs Temp Pulse Resp BP Pulse Ox 98.2 F 89 18 116/70 100 07/24/20 16:02 07/24/20 16:02 07/24/20 16:02 07/24/20 16:02 07/24/20 16:02 - Physical Exam General Appearance: Yes: Appropriately Dressed. No: Apparent Distress HEENT: positive: EOMI, JOSIE, Normal ENT Inspection, Normal Voice Neck: negative: Tender, Rigid Respiratory/Chest: positive: Lungs Clear, Normal Breath Sounds. negative: Chest Tender, Respiratory Distress Cardiovascular: positive: Regular Rhythm, Regular Rate, S1, S2. negative: Edema, JVD, Murmur Gastrointestinal/Abdominal: positive: Flat, Soft. negative: Tender Musculoskeletal: positive: Normal Inspection. negative: CVA Tenderness Extremity: positive: Normal Capillary Refill, Normal Range of Motion, Other (Pt wearing dressing due to wounds on bilateral LE) Neurologic: positive: rough rib grader II-XII NML intact, Fully Oriented, Alert, Normal Mood/Affect, Motor Strength 5/5, Finger to Nose (normal) ED Treatment Course - LABORATORY CBC & Chemistry Diagram: 07/24/20 18:15 07/24/20 18:15 Medical Decision Making - Medical Decision Making 75 yo female with PMH of HTN, HLD, Afib, Diastolic HF presents 4 hours after weakness, difficulty speaking, and repeatedly dropping items. Differential: TIA vs Stroke vs Electrolyte Abormalities Dx -NIH score of 0 -Head CT negative for acute stroke -Platelet 117 -Coags show elevated INR 1.27 -Cardiac Profile negative Tx -[address] Galloway who wanted a MRI w/o contrast with stroke protocol. Pt admitted to observation. 07/24/20 23:12 Discharge - Discharge Information Problems reviewed: Yes Clinical Impression/Diagnosis: Weakness Condition: Stable - Admission Yes - Follow up/Referral - Patient Discharge Instructions - Post Discharge Activity
[2020-07-24 17:29] VITALS: BMI 39.1
--- NOTE | 2020-07-24 17:42 | PDOC ---
Documentation entered by Linh Rhodes SCRIBE, acting as scribe for Bekah Ventura MD. Bekah Ventura MD: This documentation has been prepared by the Krupa stringer Sydney, SCRIBE, under my direction and personally reviewed by me in its entirety. I confirm that the documentation accurately reflects all work, treatment, procedures, and medical decision making performed by me. Attending Attestation - Resident Resident Name: SamanthapriyaLeninmiriam - ED Attending Attestation I have performed the following: I have examined & evaluated the patient, The case was reviewed & discussed with the resident, I agree w/resident's findings & plan, Exceptions are as noted - HPI HPI: 07/24/20 17:36 75 yo female with PMH obesity,afib on eliquis,cellulitis,MRSA,copd,chf had a brief episode of speech abnormality-not clear what happened -she was not word searching,had no slurring, but said her voice sounded different . She hasno focal neuro deficits upon arrival 07/24/20 17:47 - Physicial Exam PE: 07/24/20 17:42 obese 75 BIBA after a brief 1 minute speech abnormality head ncat neck supple lungs cta b/l cvs irreg irreg rhythm abdomen protuberant Extremities well healed surgical incisions on knees skin warm and dry neuro axox3, no drift with extremities 07/24/20 18:16 07/24/20 18:17 - Medical Decision Making 07/24/20 18:19 ct head : no acute intracranial pathology, no infarct, no midline shift, no masses,no skull fracture. clear mastoid and paranasal sinuses 07/24/20 19:25 07/24/20 19:31 labs reviewed negative troponin normal renal function bun 14.6, cr=0.4 will consult neurology and admit to tele OBS 07/24/20 20:07 Dr Galloway recommends MRI in morning Discharge - Discharge Information Problems reviewed: Yes Clinical Impression/Diagnosis: Weakness Condition: Stable - Follow up/Referral - Patient Discharge Instructions - Post Discharge Activity
[2020-07-24] MEDS ORDERED: ASPIRIN 81 MG CHEWABLE TABLETS PO ONE (18:19)
[2020-07-24 18:31] LABS: BASO % 0.4 % (0-2.0); EOS % 1.5 % (0-4.5); HEMATOCRIT 36.5 % (32.4-45.2); HEMOGLOBIN 11.4 GM/dL (10.7-15.3); LYMPH % 16.3 % (8-40); MCH 26.5 pg (25.7-33.7); MCHC 31.1 g/dl (32.0-36.0); MEAN CELL VOLUME 85.1 fl (80-96); MEAN PLT VOLUME 8.1 fl (7.5-11.1); MONO % 10.8 % (3.8-10.2); PLATELET COUNT 117 K/MM3 (134-434); RBC 4.29 M/mm3 (3.60-5.2); RDW 14.5 % (11.6-15.6); WHITE BLOOD COUNT 5.2 K/mm3 (4.0-10.0)
[2020-07-24 18:36] LABS: INR 1.27 (0.83-1.09)
[2020-07-24 18:39] LABS: ACTIVATED PTT 35.9 SECONDS (25.2-36.5)
[2020-07-24 19:29] LABS: ALBUMIN 2.9 g/dl (3.4-5.0); ALK PHOS 96 U/L (45-117); ANION GAP 0 MMOL/L (8-16); BILIRUBIN,TOTAL 0.4 mg/dL (0.2-1); BLOOD UREA NITROGEN 14.6 mg/dL (7-18); CALCIUM 8.4 mg/dL (8.5-10.1); CHLORIDE 98 mmol/L (98-107); CHOLESTEROL 112 mg/dL (50-200); CO2 42 mmol/L (21-32); CREATININE 0.4 mg/dL (0.55-1.3); GLUCOSE,RANDOM 84 mg/dL (74-106); HDL CHOLESTEROL 50 mg/dL (40-60); LDL CHOLESTEROL (ONLY SJRH) 51 mg/dL (5-100); POTASSIUM 4.8 mmol/L (3.5-5.1); SGOT/AST 14 U/L (15-37); SGPT/ALT 15 U/L (13-61); SODIUM 140 mmol/L (136-145); TOT PROT 6.4 g/dl (6.4-8.2); TRIGLYCERIDES 38 mg/dL (0-150)
--- NOTE | 2020-07-24 20:34 | PN ---
Teaching Attending Note Name of Resident: Marion Aguilera ATTENDING PHYSICIAN STATEMENT I saw and evaluated the patient. I reviewed the resident's note and discussed the case with the resident. I agree with the resident's findings and plan as documented. SUBJECTIVE: Patient is a 75 year old woman with a PMH of HTN, HLD, Afib (on Eliquis), COPD (2-3L Home O2), HFpEF (Normal LVEF -10/07/2019), Recurrent RLE Cellulitis, Obesity, ESBL Klebsiella Pneumoniae, Chronic venous stasis, Spinal stenosis, Left corneal transplant, Penicillin/multiple antibiotics allergy, MRSA (Bactrim resistant), Sjogrens syndrome, Bilateral knee replacement, Left thyroid lump and GERD who presents 4 hours after "stroke symptoms". Patient says she experienced a gradual onset of weakness, abnormal speaking and began dropping items. She has never had a stroke or WI. Patient denies chest pain, shortness of breath, abdominal pain, headache, palpitations, dizziness, fever, chills, nausea, vomiting, diarrhea, constipation, dysuria, frequency, urgency, melena, hematochezia or hematuria. Former smoker - quit in 1984. Smoked 3 PPD for over 25 years. Denies alcohol, tobacco or illicit drug use. No sick contacts or recent travels. Family history of stroke in maternal grandmother at the age of 70; alcohol abuse in father and brother, polysubstance abuse in brother, CHF and polycythemia in mother. OBJECTIVE: Alert Vital Signs Period Temp Pulse Resp BP Sys/William Pulse Ox Last 24 Hr 98.2 F 89 18 116/70 100 HEENT: No Jaundice, eye redness or discharge, corneal transplants. Normocephalic, atraumatic. External ears are normal and hearing is grossly intact. No nasal discharge. Neck: Supple, nontender. No palpable adenopathy or thyromegaly. No JVD Chest: Good effort. Clear to auscultation and percussion. Heart: Irregularly irregular. No S3, rub or murmur Abdomen: Not distended, soft, nontender and no HSM. No rebound or guarding. Normal bowel sounds. Ext: Peripheral pulses intact. Right leg wound - dressed, patient refused to allow us remove the bandage; chronic stasis dermatitis changes. Skin: Warm and dry. No petechiae, rash or ecchymosis. Neuro: Alert. Oriented x3. CN 2-12 grossly intact. Sensation grossly intact in all four extremities and DTR are symmetric. Psych: Appropriate mood and affect. Good insight. Home Medications Medication Instructions Recorded Acetaminophen [Tylenol Extra 500 mg PO Q6H PRN 10/25/19 Strength] Apixaban [Eliquis -] 5 mg PO BID 10/25/19 Ascorbate Calcium [Vitamin C] 1,000 mg PO DAILY 10/25/19 Bupropion HCl [Bupropion Xl] 150 mg PO DAILY 10/25/19 Cholecalciferol (Vitamin D3) 1,000 unit PO DAILY 10/25/19 [Vitamin D3] Cyanocobalamin [Vitamin B12 -] 1,000 mcg PO DAILY 10/25/19 Diltiazem Cd [Cardizem Cd -] 360 mg PO DAILY 10/25/19 Furosemide [Lasix -] 40 mg PO DAILY 10/25/19 Gabapentin [Neurontin -] 400 mg PO Q8H 10/25/19 Guaifenesin [Mucinex] 600 mg PO DAILY 10/25/19 Levalbuterol HCl [Xopenex] 0.31 mg IH Q8H PRN 10/25/19 Oxycodone HCl/Acetaminophen 1 tablet PO QID PRN 10/25/19 [Percocet 5-325 mg Tablet] Polyethylene Glycol 3350 17 gm PO DAILY PRN 10/25/19 Simvastatin 10 mg PO HS 10/25/19 Metoprolol Succinate [Toprol Xl -] 50 mg PO BID 07/24/20 Abnormal Lab Results 07/24/20 07/24/20 07/24/20 18:15 18:15 18:15 MCHC 31.1 L Plt Count 117 L D Monocytes % 10.8 H PT with INR 15.00 H INR 1.27 H Carbon Dioxide 42 H Anion Gap 0 L Creatinine 0.4 L Calcium 8.4 L AST 14 L Creatine Kinase 25 L Albumin 2.9 L Current Medications Generic Name Dose Route Start Last Admin Trade Name Freq PRN Reason Stop Dose Admin Acetaminophen 500 mg 07/24/20 22:06 Tylenol - PO Q6H PRN PAIN LEVEL 1-5 Apixaban 5 mg 07/25/20 10:00 Eliquis - PO BID [facility] Ascorbic Acid 1,000 mg 07/25/20 10:00 Vitamin C - PO DAILY BELL Aspirin 81 mg 07/25/20 10:00 Asa - PO DAILY BELL Atorvastatin Calcium 20 mg 07/25/20 22:00 Lipitor - PO HS BELL Bupropion HCl 150 mg 07/25/20 10:00 Wellbutrin Xl - PO DAILY BELL Cholecalciferol 1,000 unit 07/25/20 10:00 Vitamin D3 - PO DAILY BELL Cyanocobalamin 1,000 mcg 07/25/20 10:00 Vitamin B12 - PO DAILY BELL Furosemide 40 mg 07/25/20 10:00 Lasix - PO DAILY BELL Gabapentin 400 mg 07/24/20 22:15 Neurontin - PO TID BELL Guaifenesin 600 mg 07/25/20 10:00 Mucinex - PO DAILY BELL Metoprolol Succinate 50 mg 07/25/20 10:00 Toprol Xl - PO BID [facility] ASSESSMENT AND PLAN: 1. TIA/Rule out CVA - NIHSS score on arrival was 0 - symptoms had resolved. No evidence of acute intracranial pathology on noncontrast head CT scan. CXR is pending. EKG shows Afib at 99/minute, PVCs and QTc [address]-T wave changes. Initial troponin is negative. Low platelet count is unexplained - will monitor. Viral testing for COVID-19 ordered and patient placed on airborne, droplet and contact isolation. Started on supplemental oxygen via nasal cannula. Got Aspirin 324 mg in the ER. Will admit to telemetry, trend troponin, repeat EKG, get ECHO, TSH, carotid doppler, brain MRI, do speech and swallow evaluation, neurochecks and implement fall/aspiration/seizure precautions. Consult Wound care service and provide daily wound care for right leg wound. Increase Simvastatin to 40 mg qd, continue Aspirin and consult PT/Neurology. Will continue comprehensive care for all of patients comorbid conditions including Duoneb PRN for COPD and Eliquis for Afib. 2. Hypertension Will allow permissive hypertension for 24 to 48 hours. Restart suitable outpatient antihypertensive drugs when clinically appropriate. Subsequently, will revise regimen to ensure [id number] excellent BP control. Patient counseled on the injurious effects of uncontrolled hypertension. Nonpharmacologic measures to control hypertension like weight loss, salt restriction and exercise stressed. Importance of adherence to treatment regimen and attainment of normotension emphasized. 3. Obesity Counseled on the risks associated with obesity. Will provide patient all the necessary assistance, counseling and positive reinforcement to facilitate weight loss. Consult wool puller. 4. Hypoalbuminemia - Possibly due to combined effects of malnutrition and inflammation associated with comorbid conditions. Will ensure adequate dietary protein intake and also consult wool puller. Urinalysis pending. 5. DVT prophylaxis - On Eliquis for Afib. 6. Advance directives - Full code
[2020-07-24] MEDS ORDERED: ACETAMINOPHEN 500 MG TABLET (FP) PO PRN (22:06)
--- NOTE | 2020-07-24 22:23 | HP ---
CHIEF COMPLAINT: I was dropping things PCP: Dr. Boykin HISTORY OF PRESENT ILLNESS: 75yo F with PMHx chronic venous statis ulcers (s/p multiple recent hospitalizations) 2/2 venous insufficiency, MRSA+ cellulitis, afib on eliquis, HTN, RA, OA, osteopenia, spinal stenosis, radiculopathy, fibromyalgia, Sjogren's syndrome, COPD 2/2 chronic obstructive bronchitis on 3.5L NC, sleep apnea on CPAP 2.5, secondary polycythemia, bilateral carpel tunnel syndrome, bilateral hearing aids, lump in L side of thyroid, and R neck lipoma who presents with intermittent dysarthria and weakness. Patient said that this morning at ~9am when she normally takes her medications, she noticed that she was dropping her pills which is unusual for her. She feels her weakness resolved around 9.30- 10am. However, at lunch time her aid gave her a sandwich in a bag and she was knocking over the bag. The patient was wondering "what is going on with me" which prompted her to come to the ED. Patient endorsed chronic back pain and occasional constipation, but denied any other symptoms such as headaches, dizziness, NVD, dysuria, polyuria, CP, SOB. NIHSS 0. COVID pending. Of note, her of 45 years and her dog both this February (her birthday month). 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 Home: lived with her for 45 years and her dog, both and dog in February (her birthday month) Allergies Penicillins Allergy (Severe, Verified 07/24/20 16:09) Swelling clindamycin Allergy (Mild, Verified 07/24/20 16:09) Rash doxycycline Allergy (Verified 07/24/20 16:09) Swelling levofloxacin [From Levaquin] Allergy (Verified 07/24/20 16:09) Rash vancomycin Adverse Reaction (Mild, Verified 07/24/20 16:09) Itching adhesive tape Adverse Reaction (Verified 07/24/20 16:09) "RIPS MY SKIN" HOME MEDICATIONS: Home Medications Medication Instructions Recorded Acetaminophen [Tylenol Extra 500 mg PO Q6H PRN 10/25/19 Strength] Apixaban [Eliquis -] 5 mg PO BID 10/25/19 Ascorbate Calcium [Vitamin C] 1,000 mg PO DAILY 10/25/19 Bupropion HCl [Bupropion Xl] 150 mg PO DAILY 10/25/19 Cholecalciferol (Vitamin D3) 1,000 unit PO DAILY 10/25/19 [Vitamin D3] Cyanocobalamin [Vitamin B12 -] 1,000 mcg PO DAILY 10/25/19 Diltiazem Cd [Cardizem Cd -] 360 mg PO DAILY 10/25/19 Furosemide [Lasix -] 40 mg PO DAILY 10/25/19 Gabapentin [Neurontin -] 400 mg PO Q8H 10/25/19 Guaifenesin [Mucinex] 600 mg PO DAILY 10/25/19 Levalbuterol HCl [Xopenex] 0.31 mg IH Q8H PRN 10/25/19 Oxycodone HCl/Acetaminophen 1 tablet PO QID PRN 10/25/19 [Percocet 5-325 mg Tablet] Polyethylene Glycol 3350 17 gm PO DAILY PRN 10/25/19 Simvastatin 10 mg PO HS 10/25/19 Metoprolol Succinate [Toprol Xl -] 50 mg PO BID 07/24/20 REVIEW OF SYSTEMS as per HPI PHYSICAL EXAMINATION Vital Signs - 24 hr 07/24/20 16:02 Temperature 98.2 F Pulse Rate 89 Respiratory 18 Rate Blood Pressure 116/70 O2 Sat by Pulse 100 Oximetry (%) GENERAL: F, overweight, in wheel chair, appears stated age, fully oriented showing no signs of acute distress but sleepy HEAD: Normal with no signs of trauma EYES: Pupils unequal - L less responsive , round and reactive to light, consensual reflex intact in R eye, extraocular movements intact LUNGS: distant wheezing on R upper lobe but exam limited due to body habitus and position HEART: irregular, S1 S2 without murmurs ABDOMEN: Soft, nontender to palpation, obese, flaccid, active bowel sounds MUSCULOSKELETAL: limited ROM, tenderness with movement, L shoulder weakness and pain, bilateral leg pain EXTREMITIES: 2+ radial pulses, dorsalis pedis pulses not palpable, warm to touch, bilateral lower legs hot to touch and wrapped in wound dressing, R leg worse than L, tenderness to touch, non-pitting edema, erythema, scaling skin with underlying erythematous skin, no actively oozing wounds, sensation intact and equal bilaterally in all extremities NEUROLOGICAL: Cranial nerves II-XII grossly intact, normal speech, symmetrical facial movements, sensation intact bilaterally PSYCHIATRIC: Cooperative. Good eye contact. Tired and regretful mood, mildly depressive affect and otherwise congruent with stated mood SKIN: Warm to touch, no other rashes or lesions noted Laboratory Results - last 24 hr 07/24/20 07/24/20 07/24/20 16:33 18:15 18:15 WBC 5.2 RBC 4.29 Hgb 11.4 Hct 36.5 MCV 85.1 MCH 26.5 MCHC 31.1 L RDW 14.5 D Plt Count 117 L D MPV 8.1 Absolute Neuts (auto) 3.7 Neutrophils % 71.0 Lymphocytes % 16.3 Monocytes % 10.8 H Eosinophils % 1.5 Basophils % 0.4 Nucleated RBC % 0 PT with INR 15.00 H INR 1.27 H PTT (Actin FS) 35.9 Sodium Potassium Chloride Carbon Dioxide Anion Gap BUN Creatinine Est GFR (CKD-EPI)AfAm Est GFR (CKD-EPI)NonAf POC Glucometer 88 Random Glucose Calcium Total Bilirubin AST ALT Alkaline Phosphatase Creatine Kinase Troponin I Total Protein Albumin Triglycerides Cholesterol Total LDL Cholesterol HDL Cholesterol 07/24/20 18:15 WBC RBC Hgb Hct MCV MCH MCHC RDW Plt Count MPV Absolute Neuts (auto) Neutrophils % Lymphocytes % Monocytes % Eosinophils % Basophils % Nucleated RBC % PT with INR INR PTT (Actin FS) Sodium 140 Potassium 4.8 Chloride 98 Carbon Dioxide 42 H Anion Gap 0 L BUN 14.6 Creatinine 0.4 L Est GFR (CKD-EPI)AfAm 119.76 Est GFR (CKD-EPI)NonAf 103.33 POC Glucometer Random Glucose 84 Calcium 8.4 L Total Bilirubin 0.4 AST 14 L ALT 15 Alkaline Phosphatase 96 Creatine Kinase 25 L Troponin I < 0.02 Total Protein 6.4 Albumin 2.9 L Triglycerides 38 Cholesterol 112 Total LDL Cholesterol 51 HDL Cholesterol 50 ASSESSMENT/PLAN: 75yo F with PMHx chronic venous statis ulcers (s/p multiple recent hospitalizations) 2/2 venous insufficiency, MRSA+ cellulitis, afib on eliquis, HTN, RA, OA, osteopenia, spinal stenosis, radiculopathy, fibromyalgia, Sjogren's syndrome, COPD 2/2 chronic obstructive bronchitis on 3.5L NC, sleep apnea on CPAP 2.5, secondary polycythemia, bilateral carpel tunnel syndrome, bilateral hearing aids, lump in L side of thyroid, and R neck lipoma who presents with intermittent dysarthria and weakness. ED workup was remarkable for Plts 117, CK 25, troponin < 0.02, head CT showing no acute intracranial pathology, and EKG showing afib with premature ventricular or aberrantly conducted complexes. #Weakness and dysarthria - r/o TIA vs stroke - neurology consulted - recommended am MRI - neuro checks - fall precautions - ASA 81 - increased home simvastatin from 10 to 40 - holding home metoprolol and furosemide - UA #Chronic bilateral lower leg cellulitis - consulted wound care for changing of dressing - physical therapy consulted #?Diabetes Mellitus previous notes list DM as PMHx however DM is not on patient's personal problem list (she has all her PMHx, meds, allergies organized in her phone) and patient is not taking any DM meds - ordered A1C #Other diseases and ailments - continue home medications #PPX - DVT: eliquis #FEN - sodium/diabetic diet - patient may benefit from speech and swallow evaluation - replete lytes PRN - no standing fluids Dispo: continue monitoring patient in observation Family Medical History Family History: As Documented Visit type - Medication Review Med list reviewed for High Risk Meds patients 65 and older: Yes - Emergency Visit Emergency Visit: Yes ED Registration Date: 07/24/20 Care time: The patient presented to the Emergency Department on the above date and was hospitalized for further evaluation of their emergent condition. - New Patient This patient is new to me today: Yes Date on this admission: 07/25/20 - Critical Care Critical Care patient: No ATTENDING PHYSICIAN STATEMENT I saw and evaluated the patient. I reviewed the resident's note and discussed the case with the resident. I agree with the resident's findings and plan as documented. SUBJECTIVE: OBJECTIVE: ASSESSMENT AND PLAN:
[2020-07-24] MEDS ORDERED: predniSONE 20 MG TABLET (UD) PO ONE (22:55)
[2020-07-25] MEDS ORDERED: ASPIRIN 81 MG CHEWABLE TABLETS ONE ×2 (00:13→10:12)
[2020-07-25] MEDS ORDERED: GABAPENTIN 100 MG CAPSULE ONE (00:14)
[2020-07-25] MEDS: GABAPENTIN 400 MG CAPSULE PO SCH ×2 (00:22→10:09)
[2020-07-25 07:16] VITALS: TEMP 97.5
--- NOTE | 2020-07-25 08:28 | DS ---
Physical Exam: SUBJECTIVE: Pt symptoms resolved and she wants to leave AMA. She was brought in by ambulance and is aware that transportation cannot be provided due to the medical recommendation of continuing workup and MRI. Pt is of sound mind and logic and is able to make her own decisions. She sees an outpatient PMD who she sees regularly and will go to see him later on. Pt signed AMA form and is having IV discontinued OBJECTIVE: Vital Signs Period Temp Pulse Resp BP Sys/William Pulse Ox Last 24 Hr 97.5 F-98.2 F 81-92 18-19 116-131/60-70 96-100 PHYSICAL EXAM Pt AMA so exam limited: Gen: NAD, awake, alert, oriented x3 No dysarthria No dysphagia LABS Laboratory Results - last 24 hr 07/24/20 07/24/20 07/24/20 16:33 18:15 18:15 WBC 5.2 RBC 4.29 Hgb 11.4 Hct 36.5 MCV 85.1 MCH 26.5 MCHC 31.1 L RDW 14.5 D Plt Count 117 L D MPV 8.1 Absolute Neuts (auto) 3.7 Neutrophils % 71.0 Lymphocytes % 16.3 Monocytes % 10.8 H Eosinophils % 1.5 Basophils % 0.4 Nucleated RBC % 0 PT with INR 15.00 H INR 1.27 H PTT (Actin FS) 35.9 Sodium Potassium Chloride Carbon Dioxide Anion Gap BUN Creatinine Est GFR (CKD-EPI)AfAm Est GFR (CKD-EPI)NonAf POC Glucometer 88 Random Glucose Calcium Total Bilirubin AST ALT Alkaline Phosphatase Creatine Kinase Troponin I Total Protein Albumin Triglycerides Cholesterol Total LDL Cholesterol HDL Cholesterol 07/24/20 07/25/20 18:15 07:50 WBC RBC Hgb Hct MCV MCH MCHC RDW Plt Count MPV Absolute Neuts (auto) Neutrophils % Lymphocytes % Monocytes % Eosinophils % Basophils % Nucleated RBC % PT with INR INR PTT (Actin FS) Sodium 140 Potassium 4.8 Chloride 98 Carbon Dioxide 42 H Anion Gap 0 L BUN 14.6 Creatinine 0.4 L Est GFR (CKD-EPI)AfAm 119.76 Est GFR (CKD-EPI)NonAf 103.33 POC Glucometer 75 Random Glucose 84 Calcium 8.4 L Total Bilirubin 0.4 AST 14 L ALT 15 Alkaline Phosphatase 96 Creatine Kinase 25 L Troponin I < 0.02 Total Protein 6.4 Albumin 2.9 L Triglycerides 38 Cholesterol 112 Total LDL Cholesterol 51 HDL Cholesterol 50 HOSPITAL COURSE: Date of Admission:07/24/20 Date of Discharge: 07/25/20 Pt admitted on 07/24/2020 due to dysarthria and weakness and admitted to telemetry for TIA workup. Patient's Head CT was without acute pathology and she was pending MRI and neurology consultation. Patient's symptoms resolved and on the morning of 07/25 she expressed that she would like to leave AMA. I discussed witht he patient the ongoing workup along with risks and benefits. She remained adamant about leaving AMA and will see her PCP outpatient. Patient understands transportation will not be provided to her due to the recommendation of ongoing workup. IV being discontinued. Pt signed AMA and form left in chart. Minutes to complete discharge: 33 Discharge Summary Problems reviewed: Yes Reason For Visit: TRANSIENT ISCHEMIC ATTACK Current Active Problems Weakness (Acute) Condition: Stable - Instructions - Home Medications Comprehensive Discharge Medication List: Ambulatory Orders Acetaminophen [Tylenol Extra Strength] 500 mg PO Q6H PRN 10/25/19 Apixaban [Eliquis -] 5 mg PO BID 10/25/19 Ascorbate Calcium [Vitamin C] 1,000 mg PO DAILY 10/25/19 Bupropion HCl [Bupropion Xl] 150 mg PO DAILY 10/25/19 Cholecalciferol (Vitamin D3) [Vitamin D3] 1,000 unit PO DAILY 10/25/19 Cyanocobalamin [Vitamin B12 -] 1,000 mcg PO DAILY 10/25/19 Furosemide [Lasix -] 40 mg PO DAILY 10/25/19 Gabapentin [Neurontin -] 400 mg PO Q8H 10/25/19 Guaifenesin [Mucinex] 600 mg PO DAILY 10/25/19 Levalbuterol HCl [Xopenex] 0.31 mg IH Q8H PRN 10/25/19 Oxycodone HCl/Acetaminophen [Percocet 5-325 mg Tablet] 1 tablet PO QID PRN 10/25/19 Polyethylene Glycol 3350 17 gm PO DAILY PRN 10/25/19 Simvastatin 10 mg PO HS 10/25/19 Metoprolol Succinate [Toprol Xl -] 50 mg PO BID 07/24/20 This patient is new to me today: Yes Date on this admission: 07/25/20 Emergency Visit: Yes ED Registration Date: 07/24/20 Care time: The patient presented to the Emergency Department on the above date and was hospitalized for further evaluation of their emergent condition. Critical Care patient: No - Discharge Referral Referred to [facility] No
--- NOTE | 2020-07-25 08:46 | CONSULT ---
Consult - text type - Consultation Consultation Note: Neurolgy CHIEF COMPLAINT: I was dropping things PCP: Dr. Boykin HISTORY OF PRESENT ILLNESS: 75yo F with PMHx chronic venous statis ulcers (s/p multiple recent hospitalizations) 2/2 venous insufficiency, MRSA+ cellulitis, afib on eliquis, HTN, RA, OA, osteopenia, spinal stenosis, radiculopathy, fibromyalgia, Sjogren's syndrome, COPD 2/2 chronic obstructive bronchitis on 3.5L NC, sleep apnea on CPAP 2.5, secondary polycythemia, bilateral carpel tunnel syndrome, bilateral hearing aids, lump in L side of thyroid, and R neck lipoma who presented with intermittent dysarthria and weakness. Patient said that on morning of admission at ~9am when she normally takes her medications, she noticed that she was dropping her pills which is unusual for her. She felt her weakness resolved around 9.30-10am. However, at lunch time her aid gave her a sandwich in a bag and she was knocking over the bag. The patient was wondering "what is going on with me" which prompted her to go to the ED. Patient endorsed chronic back pain and occasional constipation, but denied any other symptoms such as headaches, dizziness, NVD, dysuria, polyuria, CP, SOB. NIHSS 0. COVID pending. Of note, her of 45 years and her dog both this February (her birthday month). Head CT completed and awaiting official report. Patient wants to leave and does not want to pursue MRI brain which I recommended. 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 Home: lived with her for 45 years and her dog, both and dog in February (her birthday month) REVIEW OF SYSTEMS as per HPI Allergies Penicillins Allergy (Severe, Verified 07/24/20 16:09) Swelling clindamycin Allergy (Mild, Verified 07/24/20 16:09) Rash doxycycline Allergy (Verified 07/24/20 16:09) Swelling levofloxacin [From Levaquin] Allergy (Verified 07/24/20 16:09) Rash vancomycin Adverse Reaction (Mild, Verified 07/24/20 16:09) Itching adhesive tape Adverse Reaction (Verified 07/24/20 16:09) "RIPS MY SKIN" HOME MEDICATIONS: Home Medications Medication Instructions Recorded Acetaminophen [Tylenol Extra 500 mg PO Q6H PRN 10/25/19 Strength] Apixaban [Eliquis -] 5 mg PO BID 10/25/19 Ascorbate Calcium [Vitamin C] 1,000 mg PO DAILY 10/25/19 Bupropion HCl [Bupropion Xl] 150 mg PO DAILY 10/25/19 Cholecalciferol (Vitamin D3) 1,000 unit PO DAILY 10/25/19 [Vitamin D3] Cyanocobalamin [Vitamin B12 -] 1,000 mcg PO DAILY 10/25/19 Diltiazem Cd [Cardizem Cd -] 360 mg PO DAILY 10/25/19 Furosemide [Lasix -] 40 mg PO DAILY 10/25/19 Gabapentin [Neurontin -] 400 mg PO Q8H 10/25/19 Guaifenesin [Mucinex] 600 mg PO DAILY 10/25/19 Levalbuterol HCl [Xopenex] 0.31 mg IH Q8H PRN 10/25/19 Oxycodone HCl/Acetaminophen 1 tablet PO QID PRN 10/25/19 [Percocet 5-325 mg Tablet] Polyethylene Glycol 3350 17 gm PO DAILY PRN 10/25/19 Simvastatin 10 mg PO HS 10/25/19 Metoprolol Succinate [Toprol Xl -] 50 mg PO BID 07/24/20 Active Medications Acetaminophen (Tylenol -) 500 mg PO Q6H PRN PRN Reason: PAIN LEVEL 1-5 Apixaban (Eliquis -) 5 mg PO BID [facility] Ascorbic Acid (Vitamin C -) 1,000 mg PO DAILY [facility] Aspirin (Asa -) 81 mg PO DAILY [facility] Atorvastatin Calcium (Lipitor -) 20 mg PO HS [facility] Bupropion HCl (Wellbutrin Xl -) 150 mg PO DAILY [facility] Cholecalciferol (Vitamin D3 -) 1,000 unit PO DAILY [facility] Cyanocobalamin (Vitamin B12 -) 1,000 mcg PO DAILY [facility] Furosemide (Lasix -) 40 mg PO DAILY [facility] Gabapentin (Neurontin -) 400 mg PO TID [facility] Last Admin: 07/25/20 00:22 Dose: 400 mg Documented by: Guaifenesin (Mucinex -) 600 mg PO DAILY [facility] Metoprolol Succinate (Toprol Xl -) 50 mg PO BID [facility] PHYSICAL EXAMINATION Vital Signs Period Temp Pulse Resp BP Sys/William Pulse Ox Last 24 Hr 97.5 F-98.2 F 81-92 18-20 112-131/57-70 96-100 GENERAL: F, overweight, in wheel chair, appears stated age, fully oriented showing no signs of acute distress but sleepy HEAD: Normal with no signs of trauma EYES: Pupils unequal - L less responsive , round and reactive to light, consensual reflex intact in R eye, extraocular movements intact LUNGS: distant wheezing on R upper lobe but exam limited due to body habitus and position HEART: irregular, S1 S2 without murmurs ABDOMEN: Soft, nontender to palpation, obese, flaccid, active bowel sounds MUSCULOSKELETAL: limited ROM, tenderness with movement, L shoulder weakness and pain, bilateral leg pain EXTREMITIES: 2+ radial pulses, dorsalis pedis pulses not palpable, warm to touch, bilateral lower legs hot to touch and wrapped in wound dressing, R leg worse than L, tenderness to touch, non-pitting edema, erythema, scaling skin with underlying erythematous skin, no actively oozing wounds, sensation intact and equal bilaterally in all extremities NEUROLOGICAL: CN intact, normal speech, symmetrical facial movements, moves ext equally grossly, sensation intact bilaterally, gait deferred PSYCHIATRIC: Cooperative. Good eye contact. Tired and regretful mood, mildly depressive affect and otherwise congruent with stated mood SKIN: Warm to touch, no other rashes or lesions noted CBCD WBC 5.2 K/mm3 (4.0-10.0) 07/24/20 18:15 RBC 4.29 M/mm3 (3.60-5.2) 07/24/20 18:15 Hgb 11.4 GM/dL (10.7-15.3) 07/24/20 18:15 Hct 36.5 % (32.4-45.2) 07/24/20 18:15 MCV 85.1 fl (80-96) 07/24/20 18:15 MCHC 31.1 g/dl (32.0-36.0) L 07/24/20 18:15 RDW 14.5 % (11.6-15.6) D 07/24/20 18:15 Plt Count 117 K/MM3 (134-434) L D 07/24/20 18:15 MPV 8.1 fl (7.5-11.1) 07/24/20 18:15 CMP Sodium 140 mmol/L (136-145) 07/24/20 18:15 Potassium 4.8 mmol/L (3.5-5.1) 07/24/20 18:15 Chloride 98 mmol/L (98-107) 07/24/20 18:15 Carbon Dioxide 42 mmol/L (21-32) H 07/24/20 18:15 Anion Gap 0 MMOL/L (8-16) L 07/24/20 18:15 BUN 14.6 mg/dL (7-18) 07/24/20 18:15 Creatinine 0.4 mg/dL (0.55-1.3) L 07/24/20 18:15 Random Glucose 84 mg/dL (74-106) 07/24/20 18:15 Calcium 8.4 mg/dL (8.5-10.1) L 07/24/20 18:15 Total Bilirubin 0.4 mg/dL (0.2-1) 07/24/20 18:15 AST 14 U/L (15-37) L 07/24/20 18:15 ALT 15 U/L (13-61) 07/24/20 18:15 Alkaline Phosphatase 96 U/L (45-117) 07/24/20 18:15 Total Protein 6.4 g/dl (6.4-8.2) 07/24/20 18:15 Albumin 2.9 g/dl (3.4-5.0) L 07/24/20 18:15 CARDIAC ENZYMES Creatine Kinase 25 U/L (26-192) L 07/24/20 18:15 Troponin I < 0.02 ng/ml (0.00-0.05) 07/24/20 18:15 ASSESSMENT/PLAN: 75yo F with PMHx chronic venous statis ulcers (s/p multiple recent hospitalizations) 2/2 venous insufficiency, MRSA+ cellulitis, afib on eliquis, HTN, RA, OA, osteopenia, spinal stenosis, radiculopathy, fibromyalgia, Sjogren's syndrome, COPD 2/2 chronic obstructive bronchitis on 3.5L NC, sleep apnea on CPAP 2.5, secondary polycythemia, bilateral carpel tunnel syndrome, bilateral hearing aids, lump in L side of thyroid, and R neck lipoma who presented with intermittent dysarthria and weakness. Patient said that on morning of admission at ~9am when she normally takes her medications, she noticed that she was dropping her pills which is unusual for her. She felt her weakness resolved around 9.30-10am. However, at lunch time her aid gave her a sandwich in a bag and she was knocking over the bag. The patient was wondering "what is going on with me" which prompted her to go to the ED. Patient endorsed chronic back pain and occasional constipation, but denied any other symptoms such as headaches, dizziness, NVD, dysuria, polyuria, CP, SOB. NIHSS 0. COVID pending. Of note, her of 45 years and her dog both this February (her birthday month). Head CT completed and awaiting official report. MRI brain would be highly recommended although symptoms seem to have resolved and may be TIA, but cannot rule out CVA. Already on ASA 81 and Eliquis, would not increase due to bleed risk. LDL 50, can continue current dose of statin. Return to ER immediately if symptoms recur or imaging desired. Monitor BP, maintain < 160/90. Continue use of CPAP.
[2020-07-25] MEDS ORDERED: FUROSEMIDE 40 MG TABLET (FP) PO SCH (10:00)
[2020-07-25] MEDS ORDERED: guaiFENesin 600 MG TABLET.ER (FP) PO SCH (10:00)
[2020-07-25] MEDS ORDERED: APIXABAN 5 MG TABLET PO SCH (10:00)
[2020-07-25] MEDS ORDERED: ASCORBIC ACID 500 MG TABLET (FP) PO SCH (10:00)
[2020-07-25] MEDS ORDERED: ASPIRIN 81 MG CHEWABLE TABLETS PO SCH (10:00)
[2020-07-25] MEDS ORDERED: CHOLECALCIFEROL (VIT D3) 1,000 UNIT (25 MCG) TABLET PO SCH (10:00)
[2020-07-25] MEDS ORDERED: CYANOCOBALAMIN 1,000 MCG TABLET (FP) PO SCH (10:00)
[2020-07-25] MEDS ORDERED: ASCORBIC ACID 500 MG TABLET (FP) ONE (10:11)
[2020-07-25] MEDS ORDERED: APIXABAN 5 MG TABLET ONE (10:12)
[2020-07-25 10:22] VITALS: BP 118/62; PULSE 82
--- NOTE | 2020-07-25 11:17 | EKG ---
Test Reason : Blood Pressure : / mmHG Vent. Rate : 099 BPM Atrial Rate : 098 BPM P-R Int : 000 ms QRS Dur : 088 ms QT Int : 344 ms P-R-T Axes : 000 055 039 degrees QTc Int : 441 ms ATRIAL FIBRILLATION WITH PREMATURE VENTRICULAR OR ABERRANTLY CONDUCTED COMPLEXES ABNORMAL ECG WHEN COMPARED WITH ECG OF 01-DEC-2019 13:29, NO SIGNIFICANT CHANGE WAS FOUND Confirmed by JOE NOBLE MD ([id number]) on 07/25/2020 11:17:07 AM Referred By: Confirmed By:JOE NOBLE MD
[2020-07-25] MEDS ORDERED: ATORVASTATIN CA 20 MG TABLET (FP) PO SCH (22:00)
== END 2020-07-25 10:15 | disposition left against medical advice (07) ==
LOC: JER 15:51 → JERBED 19:44
PROVIDERS: ADMIT Internal Medicine; ATTEND Internal Medicine
DX: G45.9 Transient cerebral ischemic attack, unspecified (principal); I10 Essential (primary) hypertension; E78.5 Hyperlipidemia, unspecified; I48.91 Unspecified atrial fibrillation; Z79.01 Long term (current) use of anticoagulants; J44.9 Chronic obstructive pulmonary disease, unspecified; Z96.653 Presence of artificial knee joint, bilateral; Z88.0 Allergy status to penicillin; Z88.1 Allergy status to other antibiotic agents; B96.1 Klebsiella pneumoniae [K. pneumoniae] as the cause of diseases classified elsewhere; E66.01 Morbid (severe) obesity due to excess calories; Z68.39 Body mass index [BMI] 39.0-39.9, adult; Z99.81 Dependence on supplemental oxygen; L03.115 Cellulitis of right lower limb; M35.00 Sjogren syndrome, unspecified; E07.9 Disorder of thyroid, unspecified; K21.9 Gastro-esophageal reflux disease without esophagitis
CPT/HCPCS: 36415; 70450-TC; 71045-TC-FY; 80053; 80061; 82550; 82962; 83721; 84484; 85025; 85610; 85730; 93005; 93010; 99285-25; G0378; U0003

== ENCOUNTER 2021-02-01 15:13 | Inpatient (IN) | payer OTHER, MEDICARE ==
[2021-02-01 17:33] LABS: EOS % 2.7 % (0-4.5); HEMATOCRIT 38.9 % (32.4-45.2); HEMOGLOBIN 12.2 GM/dL (10.7-15.3); LYMPH % 14.3 % (8-40); MCHC 31.3 g/dl (32.0-36.0); MEAN CELL VOLUME 86.5 fl (80-96); MEAN PLT VOLUME 8.1 fl (7.5-11.1); MONO % 11.4 % (3.8-10.2); NEUT % 70.6 % (42.8-82.8); PLATELET COUNT 183 K/MM3 (134-434); RDW 13.9 % (11.6-15.6); WHITE BLOOD COUNT 5.1 K/mm3 (4.0-10.0)
[2021-02-01 17:56] LABS: CHLORIDE 94 mmol/L (98-107); SODIUM 139 mmol/L (136-145)
[2021-02-01 17:57] LABS: CALCIUM 8.6 mg/dL (8.5-10.1)
[2021-02-01 17:59] LABS: BLOOD UREA NITROGEN 18.6 mg/dL (7-18); GLUCOSE,RANDOM 77 mg/dL (74-106)
[2021-02-01 18:02] LABS: CREATININE 0.4 mg/dL (0.55-1.3); SGOT/AST 16 U/L (15-37); SGPT/ALT 16 U/L (13-61)
[2021-02-01 18:03] LABS: BILIRUBIN,TOTAL 0.4 mg/dL (0.2-1); TOT PROT 6.9 g/dl (6.4-8.2)
[2021-02-01 18:04] LABS: ALK PHOS 115 U/L (45-117)
[2021-02-01 18:08] LABS: ANION GAP 1 MMOL/L (8-16); CO2 > 45 mmol/L (21-32)
[2021-02-01] MEDS ORDERED: ACETAMINOPHEN 1000 MG/100 ML VIAL (NON FORMULARY) IVPB PRN (18:35)
[2021-02-01] MEDS ORDERED: oxyCODONE HCL 5 MG TABLET PO PRN (18:35)
[2021-02-01] MEDS ORDERED: POLYETHYLENE GLYCOL 3350 119 GM BTL PO PRN (18:37)
[2021-02-01] MEDS ORDERED: DAPTOMYCIN 500 MG in SODIUM CHLORIDE 50 ML IVPB SCH (18:45)
[2021-02-01] MEDS ORDERED: GABAPENTIN 400 MG CAPSULE PO SCH ×2 (18:45→22:20)
[2021-02-01] MEDS ORDERED: GABAPENTIN 100 MG CAPSULE ONE (18:57)
[2021-02-01] MEDS ORDERED: ATORVASTATIN CA 10 MG TABLET (FP) PO SCH (22:00)
[2021-02-01] MEDS: APIXABAN 5 MG TABLET PO SCH (23:08)
[2021-02-01] MEDS: GABAPENTIN 400 MG CAPSULE PO SCH (23:08)
[2021-02-02 00:31] VITALS: BMI 43.7
[2021-02-02] MEDS: GABAPENTIN 400 MG CAPSULE PO SCH ×3 (05:54→21:26)
[2021-02-02 08:50] LABS: BASO % 0.5 % (0-2.0); EOS % 2.6 % (0-4.5); HEMATOCRIT 35.2 % (32.4-45.2); HEMOGLOBIN 11.2 GM/dL (10.7-15.3); LYMPH % 22.5 % (8-40); MCH 27.4 pg (25.7-33.7); MCHC 31.8 g/dl (32.0-36.0); MEAN PLT VOLUME 8.3 fl (7.5-11.1); MONO % 13.6 % (3.8-10.2); NEUT % 60.8 % (42.8-82.8); PLATELET COUNT 163 K/MM3 (134-434); RBC 4.09 M/mm3 (3.60-5.2); RDW 14.3 % (11.6-15.6); WHITE BLOOD COUNT 4.1 K/mm3 (4.0-10.0)
[2021-02-02 09:00] LABS: CHLORIDE 95 mmol/L (98-107); SODIUM 140 mmol/L (136-145)
[2021-02-02 09:06] LABS: CALCIUM 8.8 mg/dL (8.5-10.1)
[2021-02-02 09:07] LABS: ALBUMIN 2.6 g/dl (3.4-5.0); BLOOD UREA NITROGEN 15.4 mg/dL (7-18); GLUCOSE,RANDOM 75 mg/dL (74-106); MAGNESIUM 1.9 mg/dL (1.8-2.4)
[2021-02-02 09:10] LABS: CREATININE 0.3 mg/dL (0.55-1.3); PHOSPHOROUS 3.5 mg/dL (2.5-4.9); SGOT/AST 11 U/L (15-37); SGPT/ALT 14 U/L (13-61)
[2021-02-02 09:11] LABS: BILIRUBIN,TOTAL 0.4 mg/dL (0.2-1)
[2021-02-02 09:12] LABS: ALK PHOS 97 U/L (45-117)
[2021-02-02 09:32] LABS: ANION GAP 0 MMOL/L (8-16); CO2 > 45 mmol/L (21-32)
[2021-02-02] MEDS ORDERED: FLU VACCINE (FLULAVAL) PF 60 MCG/0.5 ML SYRINGE 2020-2021 IM ONE (10:00)
[2021-02-02] MEDS ORDERED: PT OWN MED DRAWER 7, Y5N ONE ×4 (10:48→18:09)
[2021-02-02] MEDS: APIXABAN 5 MG TABLET PO SCH ×2 (10:51→21:26)
[2021-02-02] MEDS: FUROSEMIDE 40 MG TABLET (FP) PO SCH (10:52)
[2021-02-02] MEDS: guaiFENesin 600 MG TABLET.ER (FP) PO SCH (10:52)
[2021-02-02] MEDS: CHOLECALCIFEROL (VIT D3) 1,000 UNIT (25 MCG) TABLET PO SCH (10:53)
[2021-02-02] MEDS: CYANOCOBALAMIN 1,000 MCG TABLET (FP) PO SCH (10:53)
[2021-02-02] MEDS: ASCORBIC ACID 500 MG TABLET (FP) PO SCH (10:54)
[2021-02-02] MEDS ORDERED: ZINC OXIDE/PANTHENOL/VITAMIN E 56 GM TUBE TP PRN (11:00)
[2021-02-02] MEDS ORDERED: ALBUTEROL SO4 0.083% IH SOL 2.5 MG/3 ML VIAL.NEB. NEB PRN (13:02)
[2021-02-02 13:29] LABS: N-TERMINAL BNP 1824.3 pg/ml (5-125)
[2021-02-02] MEDS: DAPTOMYCIN 500 MG in SODIUM CHLORIDE 50 ML IVPB SCH (14:40)
[2021-02-02] MEDS ORDERED: DEXTROSE 5%-WATER - 50 ML IVPB ONE (17:48)
[2021-02-02] MEDS ORDERED: AZTREONAM 1 GM VIAL (RESTRICTED TO ID) ONE (17:48)
[2021-02-02] MEDS: AZTREONAM 1 GM in DEXTROSE 5%-WATER - 50 ML IVPB SCH (18:07)
[2021-02-02] MEDS: TIOTROPIUM BROMIDE 2.5 MCG (SPIRIVA) RESPIMAT INHALER IH SCH (18:12)
[2021-02-02] MEDS: TRIAMCINOLONE ACET 0.1% CREAM 15 GM TUBE TP SCH (18:13)
[2021-02-02] MEDS: SILVER SULFADIAZINE 1% TOP CREAM 50 GM JAR TP SCH (18:14)
[2021-02-02] MEDS: CALCIUM ACETATE/AL SULFATE TOP 1.9 GM/PACKET PACKET TP SCH (18:14)
[2021-02-03] MEDS ORDERED: AZTREONAM 1 GM VIAL (RESTRICTED TO ID) ONE ×2 (00:17→10:55)
[2021-02-03] MEDS ORDERED: DEXTROSE 5%-WATER - 50 ML IVPB ONE ×2 (00:17→10:56)
[2021-02-03] MEDS: AZTREONAM 1 GM in DEXTROSE 5%-WATER - 50 ML IVPB SCH ×2 (01:15→11:16)
[2021-02-03] MEDS: GABAPENTIN 400 MG CAPSULE PO SCH ×3 (05:43→21:27)
[2021-02-03 08:53] LABS: HEMATOCRIT 36.3 % (32.4-45.2); HEMOGLOBIN 11.2 GM/dL (10.7-15.3); MCH 26.7 pg (25.7-33.7); MCHC 30.9 g/dl (32.0-36.0); MEAN CELL VOLUME 86.5 fl (80-96); MEAN PLT VOLUME 7.8 fl (7.5-11.1); PLATELET COUNT 171 K/MM3 (134-434); RDW 14.3 % (11.6-15.6); WHITE BLOOD COUNT 5.1 K/mm3 (4.0-10.0)
[2021-02-03 09:27] LABS: ALBUMIN 2.9 g/dl (3.4-5.0)
[2021-02-03 09:28] LABS: BLOOD UREA NITROGEN 15.6 mg/dL (7-18)
[2021-02-03 09:31] LABS: CREATININE 0.3 mg/dL (0.55-1.3); PHOSPHOROUS 3.7 mg/dL (2.5-4.9)
[2021-02-03 09:32] LABS: BILIRUBIN,TOTAL 0.3 mg/dL (0.2-1)
[2021-02-03 09:35] LABS: MAGNESIUM 1.8 mg/dL (1.8-2.4)
[2021-02-03 09:37] LABS: CALCIUM 8.4 mg/dL (8.5-10.1)
[2021-02-03] MEDS ORDERED: COLLAGENASE CLOSTRIDIUM HIST. 30 GRAMS TUBE TP SCH (10:00)
[2021-02-03] MEDS: DAPTOMYCIN 500 MG in SODIUM CHLORIDE 50 ML IVPB SCH (11:16)
[2021-02-03] MEDS: METOPROLOL TARTRATE 50 MG TABLET (FP) PO SCH ×2 (11:17→21:27)
[2021-02-03] MEDS: guaiFENesin 600 MG TABLET.ER (FP) PO SCH (11:17)
[2021-02-03] MEDS: TIOTROPIUM BROMIDE 2.5 MCG (SPIRIVA) RESPIMAT INHALER IH SCH (11:18)
[2021-02-03] MEDS: APIXABAN 5 MG TABLET PO SCH ×2 (11:18→21:27)
[2021-02-03] MEDS: FUROSEMIDE 40 MG TABLET (FP) PO SCH (11:18)
[2021-02-03] MEDS: CHOLECALCIFEROL (VIT D3) 1,000 UNIT (25 MCG) TABLET PO SCH (11:18)
[2021-02-03] MEDS: ASCORBIC ACID 500 MG TABLET (FP) PO SCH (11:18)
[2021-02-03] MEDS: CYANOCOBALAMIN 1,000 MCG TABLET (FP) PO SCH (11:18)
[2021-02-03] MEDS: LINEZOLID 600 MG TABLET (RESTRICTED TO ID) PO SCH ×2 (14:00→21:28)
[2021-02-03] MEDS: TRIAMCINOLONE ACET 0.1% CREAM 15 GM TUBE TP SCH (17:49)
[2021-02-03] MEDS: CALCIUM ACETATE/AL SULFATE TOP 1.9 GM/PACKET PACKET TP SCH (17:50)
[2021-02-03] MEDS: SILVER SULFADIAZINE 1% TOP CREAM 50 GM JAR TP SCH (17:50)
[2021-02-03] MEDS ORDERED: PT OWN MED DRAWER 7, Y5N ONE (17:59)
[2021-02-03] MEDS ORDERED: ACETAMINOPHEN 325 MG TABLET (FP) PO PRN (21:47)
[2021-02-03 23:30] LABS: EPI CELLS 15 /uL (0-25.1); HYALINE CASTS 2 /uL (0-3.1); PH,URINE 8.5 (5.0-8.0); URINE APPEARANCE CLEAR; URINE BACTERIA 11 /uL (0-1359); URINE BILIRUBIN NEGATIVE (NEGATIVE); URINE COLOR YELLOW; URINE GLUCOSE (UA) NEGATIVE (NEGATIVE); URINE KETONE NEGATIVE (NEGATIVE); URINE LEUK ESTERASE 1+ (NEGATIVE); URINE NITRITE NEGATIVE (NEGATIVE); URINE PROTEIN TRACE (NEGATIVE); URINE RBC 14 /uL (0-23.9); URINE WBC 58 /uL (0-25.8)
[2021-02-04] MEDS: GABAPENTIN 400 MG CAPSULE PO SCH ×2 (05:38→15:14)
[2021-02-04] MEDS: CALCIUM ACETATE/AL SULFATE TOP 1.9 GM/PACKET PACKET TP SCH (10:29)
[2021-02-04] MEDS: TRIAMCINOLONE ACET 0.1% CREAM 15 GM TUBE TP SCH (10:29)
[2021-02-04] MEDS: LINEZOLID 600 MG TABLET (RESTRICTED TO ID) PO SCH (10:29)
[2021-02-04] MEDS: CHOLECALCIFEROL (VIT D3) 1,000 UNIT (25 MCG) TABLET PO SCH (10:37)
[2021-02-04] MEDS: guaiFENesin 600 MG TABLET.ER (FP) PO SCH (10:38)
[2021-02-04] MEDS: ASCORBIC ACID 500 MG TABLET (FP) PO SCH (10:38)
[2021-02-04] MEDS: CYANOCOBALAMIN 1,000 MCG TABLET (FP) PO SCH (10:38)
[2021-02-04] MEDS: METOPROLOL TARTRATE 50 MG TABLET (FP) PO SCH (10:38)
[2021-02-04] MEDS: TIOTROPIUM BROMIDE 2.5 MCG (SPIRIVA) RESPIMAT INHALER IH SCH (10:38)
[2021-02-04] MEDS: APIXABAN 5 MG TABLET PO SCH (10:38)
[2021-02-04] MEDS: FUROSEMIDE 40 MG TABLET (FP) PO SCH (10:38)
[2021-02-04] MEDS: SILVER SULFADIAZINE 1% TOP CREAM 50 GM JAR TP SCH (10:38)
[2021-02-04 14:54] VITALS: BP 131/78; PULSE 103; TEMP 97.7
== END 2021-02-04 18:54 | disposition home health service (06) | DRG 603 ==
LOC: JER 15:13 → JERBED 17:02 → J8W 22:01
PROVIDERS: ADMIT Student in an Organized Health Care Education/Training Program; ATTEND Internal Medicine
DX: L03.115 Cellulitis of right lower limb (principal); I50.32 Chronic diastolic (congestive) heart failure; Z16.24 Resistance to multiple antibiotics; Z68.41 Body mass index [BMI] 40.0-44.9, adult; J44.9 Chronic obstructive pulmonary disease, unspecified; I48.91 Unspecified atrial fibrillation; E11.9 Type 2 diabetes mellitus without complications; I10 Essential (primary) hypertension; E78.5 Hyperlipidemia, unspecified; M35.00 Sjogren syndrome, unspecified; M79.7 Fibromyalgia; M54.10 Radiculopathy, site unspecified; M48.00 Spinal stenosis, site unspecified; I87.2 Venous insufficiency (chronic) (peripheral); E66.9 Obesity, unspecified; G47.33 Obstructive sleep apnea (adult) (pediatric)
CPT/HCPCS: 36415; 71045-TC-FY; 73630-TC-RT-FY; 80053; 81003; 83036; 83735; 83880; 84100; 85025; 85027; 87040; 87070; 87186; 87205; 93971-TC; 94660; 99285-25; C9803; G0008; J0878; Q2036; U0003

== ENCOUNTER 2021-04-06 15:22 | Inpatient (IN) | payer OTHER, MEDICARE ==
[2021-04-06 16:51] LABS: BASO % 0.2 % (0-2.0); EOS % 2.8 % (0-4.5); HEMATOCRIT 36.6 % (32.4-45.2); HEMOGLOBIN 11.3 GM/dL (10.7-15.3); LYMPH % 15.4 % (8-40); MCH 26.5 pg (25.7-33.7); MCHC 30.8 g/dl (32.0-36.0); MEAN CELL VOLUME 86.1 fl (80-96); MEAN PLT VOLUME 8.7 fl (7.5-11.1); NEUT % 71.6 % (42.8-82.8); PLATELET COUNT 171 K/MM3 (134-434); RBC 4.25 M/mm3 (3.60-5.2); RDW 14.9 % (11.6-15.6); WHITE BLOOD COUNT 5.3 K/mm3 (4.0-10.0)
[2021-04-06 16:58] LABS: INR 1.4 (0.83-1.09); PROTHROMBIN TIME (PATIENT) 16.8 SEC (9.7-13.0)
[2021-04-06 17:01] LABS: ACTIVATED PTT 34.9 SECONDS (25.2-36.5)
[2021-04-06 17:13] LABS: CHLORIDE 95 mmol/L (98-107); SODIUM 141 mmol/L (136-145)
[2021-04-06 17:15] LABS: CALCIUM 8.3 mg/dL (8.5-10.1); GLUCOSE,RANDOM 84 mg/dL (74-106)
[2021-04-06 17:18] LABS: CREATININE 0.6 mg/dL (0.55-1.3); SGOT/AST 14 U/L (15-37); SGPT/ALT 18 U/L (13-61)
[2021-04-06 17:20] LABS: BILIRUBIN,TOTAL 0.3 mg/dL (0.2-1); TOT PROT 6.8 g/dl (6.4-8.2)
[2021-04-06 17:21] LABS: ALK PHOS 118 U/L (45-117)
[2021-04-06 17:27] LABS: ANION GAP 0 MMOL/L (8-16); CO2 > 45 mmol/L (21-32)
[2021-04-06] MEDS ORDERED: AZTREONAM 1 GM in DEXTROSE 5%-WATER - 50 ML IVPB ONE (18:06)
[2021-04-06] MEDS ORDERED: AZTREONAM 1 GM VIAL (RESTRICTED TO ID) ONE (18:14)
[2021-04-06] MEDS ORDERED: oxyCODONE HCL 5 MG TABLET PO PRN (22:13)
[2021-04-06] MEDS ORDERED: ACETAMINOPHEN INJECTION 100 ML IVPB ONE (22:30)
[2021-04-06] MEDS ORDERED: DAPTOMYCIN 500 MG in SODIUM CHLORIDE 50 ML IVPB SCH ×2 (22:30→23:00)
[2021-04-06] MEDS: ACETAMINOPHEN 1000 MG/100 ML BAG IVPB SCH (22:47)
[2021-04-07] MEDS ORDERED: DAPTOMYCIN 500 MG in SODIUM CHLORIDE 50 ML IVPB SCH (01:45)
[2021-04-07 05:50] VITALS: BMI 46.0
[2021-04-07] MEDS: ACETAMINOPHEN 1000 MG/100 ML BAG IVPB SCH ×2 (06:19→12:25)
[2021-04-07] MEDS: GABAPENTIN 400 MG CAPSULE PO SCH ×3 (06:21→23:02)
[2021-04-07] MEDS: FUROSEMIDE 40 MG TABLET (FP) PO SCH ×2 (06:21→13:59)
[2021-04-07 08:23] LABS: HEMATOCRIT 35.3 % (32.4-45.2); MCH 26.5 pg (25.7-33.7); MCHC 31.2 g/dl (32.0-36.0); MEAN PLT VOLUME 8.8 fl (7.5-11.1); PLATELET COUNT 152 K/MM3 (134-434); RBC 4.16 M/mm3 (3.60-5.2); RDW 15.2 % (11.6-15.6); WHITE BLOOD COUNT 5.6 K/mm3 (4.0-10.0)
[2021-04-07 08:51] LABS: BLOOD UREA NITROGEN 17.3 mg/dL (7-18); CALCIUM 8.4 mg/dL (8.5-10.1)
[2021-04-07 08:55] LABS: CREATININE 0.3 mg/dL (0.55-1.3)
[2021-04-07] MEDS ORDERED: ACETAMINOPHEN 325 MG TABLET (FP) PO PRN ×2 (12:21→12:22)
[2021-04-07] MEDS: APIXABAN 5 MG TABLET PO SCH ×2 (12:35→23:02)
[2021-04-07] MEDS: DOCUSATE SODIUM 100 MG CAPSULE (FP) PO SCH (12:35)
[2021-04-07] MEDS: METOPROLOL TARTRATE 50 MG TABLET (FP) PO SCH ×2 (12:37→23:02)
[2021-04-07] MEDS: MINERAL OIL/PET HY-PHL TOPICAL OINTMENT 454 GM JAR TP SCH (13:57)
[2021-04-07] MEDS: NYSTATIN POWDER 100,000 UNITS/GM - 15 GM TOPICAL POWDER TP SCH ×2 (13:58→23:03)
[2021-04-07] MEDS: ZINC OXIDE 20% TOPICAL OINTMENT 30 GM TUBE TP SCH ×2 (13:58→23:02)
[2021-04-07] MEDS: AZTREONAM 2 GM in DEXTROSE 5%-WATER 100 ML IVPB SCH ×2 (13:58→17:14)
[2021-04-07] MEDS ORDERED: TIOTROPIUM BROMIDE 2.5 MCG (SPIRIVA) RESPIMAT INHALER IH SCH (14:00)
[2021-04-07] MEDS ORDERED: ALBUTEROL SO4 HFA INHALER IH PRN (15:41)
[2021-04-07] MEDS ORDERED: PT OWN MED DRAWER 7, Y5N ONE (17:07)
[2021-04-07] MEDS ORDERED: diphenhydrAMINE HCL 25 MG CAPSULE (FP) PO ONE (22:36)
[2021-04-07] MEDS ORDERED: HYDROCORTISONE 2.5% TOPICAL CREAM 30 GM TUBE TP ONE (22:45)
[2021-04-07] MEDS: GENTAMICIN SO4 0.1% TOPICAL OINTMENT 15 GM/TUBE TUBE TP SCH (23:03)
[2021-04-07] MEDS: BUDESONIDE/FORMETEROL FUMARATE 80/4.5 mcg INHALER IH SCH (23:04)
[2021-04-08] MEDS ORDERED: DAPTOMYCIN 500 MG in SODIUM CHLORIDE 50 ML IVPB SCH (02:00)
[2021-04-08] MEDS: AZTREONAM 2 GM in DEXTROSE 5%-WATER 100 ML IVPB SCH ×3 (02:43→17:30)
[2021-04-08] MEDS: DAPTOMYCIN 500 MG in SODIUM CHLORIDE 50 ML IVPB SCH (02:43)
[2021-04-08] MEDS: GABAPENTIN 400 MG CAPSULE PO SCH ×3 (06:13→22:44)
[2021-04-08] MEDS: FUROSEMIDE 40 MG TABLET (FP) PO SCH ×2 (06:13→14:50)
[2021-04-08 08:19] LABS: BASO % 0.2 % (0-2.0); EOS % 2.8 % (0-4.5); HEMATOCRIT 35.3 % (32.4-45.2); LYMPH % 11.5 % (8-40); MCH 26.6 pg (25.7-33.7); MCHC 31.2 g/dl (32.0-36.0); MEAN PLT VOLUME 8.7 fl (7.5-11.1); MONO % 7.2 % (3.8-10.2); NEUT % 78.3 % (42.8-82.8); PLATELET COUNT 152 K/MM3 (134-434); RBC 4.16 M/mm3 (3.60-5.2); RDW 15.4 % (11.6-15.6); WHITE BLOOD COUNT 8.6 K/mm3 (4.0-10.0)
[2021-04-08 08:20] LABS: CHLORIDE 95 mmol/L (98-107); SODIUM 142 mmol/L (136-145)
[2021-04-08 08:25] LABS: ALBUMIN 2.5 g/dl (3.4-5.0); BLOOD UREA NITROGEN 16.4 mg/dL (7-18); GLUCOSE,RANDOM 80 mg/dL (74-106); MAGNESIUM 1.8 mg/dL (1.8-2.4)
[2021-04-08 08:28] LABS: CREATININE 0.3 mg/dL (0.55-1.3); SGOT/AST 12 U/L (15-37); SGPT/ALT 13 U/L (13-61)
[2021-04-08 08:29] LABS: PHOSPHOROUS 3.2 mg/dL (2.5-4.9)
[2021-04-08 08:30] LABS: BILIRUBIN,TOTAL 0.5 mg/dL (0.2-1); TOT PROT 5.5 g/dl (6.4-8.2)
[2021-04-08 08:31] LABS: ALK PHOS 102 U/L (45-117)
[2021-04-08 08:38] LABS: ANION GAP 1 MMOL/L (8-16); CO2 > 45 mmol/L (21-32)
[2021-04-08] MEDS: NYSTATIN POWDER 100,000 UNITS/GM - 15 GM TOPICAL POWDER TP SCH ×2 (10:48→22:59)
[2021-04-08] MEDS: GENTAMICIN SO4 0.1% TOPICAL OINTMENT 15 GM/TUBE TUBE TP SCH ×2 (10:48→22:59)
[2021-04-08] MEDS: MINERAL OIL/PET HY-PHL TOPICAL OINTMENT 454 GM JAR TP SCH (10:48)
[2021-04-08] MEDS: ZINC OXIDE 20% TOPICAL OINTMENT 30 GM TUBE TP SCH ×2 (10:48→23:00)
[2021-04-08] MEDS: BUDESONIDE/FORMETEROL FUMARATE 80/4.5 mcg INHALER IH SCH ×2 (10:49→22:45)
[2021-04-08] MEDS: APIXABAN 5 MG TABLET PO SCH ×2 (10:49→22:44)
[2021-04-08] MEDS: METOPROLOL TARTRATE 50 MG TABLET (FP) PO SCH ×2 (10:49→22:45)
[2021-04-08] MEDS: DOCUSATE SODIUM 100 MG CAPSULE (FP) PO SCH (10:49)
[2021-04-08] MEDS ORDERED: diphenhydrAMINE HCL 25 MG CAPSULE (FP) PO ONE (14:20)
[2021-04-08] MEDS: TIOTROPIUM BROMIDE 2.5 MCG (SPIRIVA) RESPIMAT INHALER IH SCH (14:50)
[2021-04-08] MEDS ORDERED: DOCUSATE SODIUM 100 MG CAPSULE (FP) PO ONE (21:18)
[2021-04-09] MEDS ORDERED: diphenhydrAMINE HCL 25 MG CAPSULE (FP) PO ONE ×2 (00:49→12:00)
[2021-04-09] MEDS: DAPTOMYCIN 500 MG in SODIUM CHLORIDE 50 ML IVPB SCH (01:35)
[2021-04-09] MEDS: AZTREONAM 2 GM in DEXTROSE 5%-WATER 100 ML IVPB SCH ×2 (02:47→09:39)
[2021-04-09] MEDS: FUROSEMIDE 40 MG TABLET (FP) PO SCH ×2 (05:35→13:35)
[2021-04-09] MEDS: GABAPENTIN 400 MG CAPSULE PO SCH ×3 (05:35→21:51)
[2021-04-09 09:12] LABS: BASO % 2.4 % (0-2.0); EOS % 3.4 % (0-4.5); HEMATOCRIT 37.8 % (32.4-45.2); HEMOGLOBIN 11.8 GM/dL (10.7-15.3); LYMPH % 8.6 % (8-40); MCH 26.7 pg (25.7-33.7); MCHC 31.2 g/dl (32.0-36.0); MEAN CELL VOLUME 85.6 fl (80-96); MEAN PLT VOLUME 8.3 fl (7.5-11.1); MONO % 5.1 % (3.8-10.2); NEUT % 80.5 % (42.8-82.8); PLATELET COUNT 168 K/MM3 (134-434); RBC 4.42 M/mm3 (3.60-5.2); RDW 15.3 % (11.6-15.6); WHITE BLOOD COUNT 6.4 K/mm3 (4.0-10.0)
[2021-04-09] MEDS ORDERED: PT OWN MED DRAWER 7, Y5N ONE (09:25)
[2021-04-09] MEDS: DOCUSATE SODIUM 100 MG CAPSULE (FP) PO SCH (09:39)
[2021-04-09] MEDS: APIXABAN 5 MG TABLET PO SCH ×2 (09:39→21:51)
[2021-04-09] MEDS: METOPROLOL TARTRATE 50 MG TABLET (FP) PO SCH ×2 (09:39→21:51)
[2021-04-09] MEDS: TIOTROPIUM BROMIDE 2.5 MCG (SPIRIVA) RESPIMAT INHALER IH SCH (09:39)
[2021-04-09] MEDS: NYSTATIN POWDER 100,000 UNITS/GM - 15 GM TOPICAL POWDER TP SCH ×2 (09:40→21:51)
[2021-04-09] MEDS: BUDESONIDE/FORMETEROL FUMARATE 80/4.5 mcg INHALER IH SCH ×2 (09:40→21:51)
[2021-04-09] MEDS: MINERAL OIL/PET HY-PHL TOPICAL OINTMENT 454 GM JAR TP SCH (09:40)
[2021-04-09] MEDS: ZINC OXIDE 20% TOPICAL OINTMENT 30 GM TUBE TP SCH ×2 (09:40→21:52)
[2021-04-09 09:48] LABS: CHLORIDE 92 mmol/L (98-107); SODIUM 140 mmol/L (136-145)
[2021-04-09 09:50] LABS: CALCIUM 8.1 mg/dL (8.5-10.1)
[2021-04-09 09:51] LABS: ALBUMIN 2.5 g/dl (3.4-5.0); BLOOD UREA NITROGEN 17.8 mg/dL (7-18); GLUCOSE,RANDOM 112 mg/dL (74-106)
[2021-04-09 09:52] LABS: MAGNESIUM 1.6 mg/dL (1.8-2.4)
[2021-04-09 09:54] LABS: CREATININE 0.4 mg/dL (0.55-1.3); PHOSPHOROUS 3.6 mg/dL (2.5-4.9); SGOT/AST 11 U/L (15-37); SGPT/ALT 14 U/L (13-61)
[2021-04-09 09:55] LABS: BILIRUBIN,TOTAL 0.5 mg/dL (0.2-1)
[2021-04-09 09:56] LABS: ALK PHOS 117 U/L (45-117)
[2021-04-09 09:58] LABS: ANION GAP 2 MMOL/L (8-16); CO2 > 45 mmol/L (21-32)
[2021-04-09] MEDS: GENTAMICIN SO4 0.1% TOPICAL OINTMENT 15 GM/TUBE TUBE TP SCH ×2 (13:05→21:52)
[2021-04-09] MEDS ORDERED: diphenhydrAMINE HCL 25 MG CAPSULE (FP) PO PRN (18:00)
[2021-04-10] MEDS: DAPTOMYCIN 500 MG in SODIUM CHLORIDE 50 ML IVPB SCH (02:26)
[2021-04-10] MEDS: FUROSEMIDE 40 MG TABLET (FP) PO SCH ×2 (05:38→13:37)
[2021-04-10] MEDS: GABAPENTIN 400 MG CAPSULE PO SCH ×3 (05:38→21:00)
[2021-04-10 07:40] LABS: HEMATOCRIT 34.9 % (32.4-45.2); HEMOGLOBIN 10.9 GM/dL (10.7-15.3); MCH 26.9 pg (25.7-33.7); MCHC 31.4 g/dl (32.0-36.0); MEAN CELL VOLUME 85.9 fl (80-96); MEAN PLT VOLUME 8.6 fl (7.5-11.1); PLATELET COUNT 172 K/MM3 (134-434); RBC 4.06 M/mm3 (3.60-5.2); WHITE BLOOD COUNT 5.8 K/mm3 (4.0-10.0)
[2021-04-10 08:07] LABS: CHLORIDE 91 mmol/L (98-107); SODIUM 140 mmol/L (136-145)
[2021-04-10 08:09] LABS: CALCIUM 7.7 mg/dL (8.5-10.1)
[2021-04-10 08:10] LABS: ALBUMIN 2.5 g/dl (3.4-5.0); GLUCOSE,RANDOM 76 mg/dL (74-106); MAGNESIUM 1.7 mg/dL (1.8-2.4)
[2021-04-10 08:13] LABS: CREATININE 0.3 mg/dL (0.55-1.3); PHOSPHOROUS 2.9 mg/dL (2.5-4.9); SGOT/AST 15 U/L (15-37); SGPT/ALT 17 U/L (13-61)
[2021-04-10 08:15] LABS: BILIRUBIN,TOTAL 0.4 mg/dL (0.2-1); TOT PROT 5.8 g/dl (6.4-8.2)
[2021-04-10 08:16] LABS: ALK PHOS 127 U/L (45-117)
[2021-04-10 08:31] LABS: ANION GAP 4 MMOL/L (8-16); CO2 > 45 mmol/L (21-32)
[2021-04-10] MEDS ORDERED: MAGNESIUM OXIDE 400 MG TABLET (FP) PO ONE (09:15)
[2021-04-10] MEDS: METOPROLOL TARTRATE 50 MG TABLET (FP) PO SCH ×2 (11:09→21:00)
[2021-04-10] MEDS: DOCUSATE SODIUM 100 MG CAPSULE (FP) PO SCH (11:09)
[2021-04-10] MEDS: NYSTATIN POWDER 100,000 UNITS/GM - 15 GM TOPICAL POWDER TP SCH ×2 (12:01→21:00)
[2021-04-10] MEDS: APIXABAN 5 MG TABLET PO SCH ×2 (12:04→21:00)
[2021-04-10] MEDS: MINERAL OIL/PET HY-PHL TOPICAL OINTMENT 454 GM JAR TP SCH (12:04)
[2021-04-10] MEDS: GENTAMICIN SO4 0.1% TOPICAL OINTMENT 15 GM/TUBE TUBE TP SCH ×2 (12:04→21:00)
[2021-04-10] MEDS: ZINC OXIDE 20% TOPICAL OINTMENT 30 GM TUBE TP SCH ×2 (12:04→21:00)
[2021-04-10] MEDS: TIOTROPIUM BROMIDE 2.5 MCG (SPIRIVA) RESPIMAT INHALER IH SCH (12:06)
[2021-04-10] MEDS: BUDESONIDE/FORMETEROL FUMARATE 80/4.5 mcg INHALER IH SCH ×2 (12:06→21:05)
[2021-04-10] MEDS ORDERED: SODIUM PHOSPHATE/NA BIPHOS 133 ML ENEMA PR ONE (20:41)
[2021-04-10] MEDS ORDERED: PT OWN MED DRAWER 7, Y5N ONE (20:59)
[2021-04-10] MEDS: POLYETHYLENE GLYCOL 3350 119 GM BTL PO SCH (21:06)
[2021-04-11] MEDS: FUROSEMIDE 40 MG TABLET (FP) PO SCH ×2 (05:04→05:07)
[2021-04-11] MEDS: GABAPENTIN 400 MG CAPSULE PO SCH (05:05)
[2021-04-11 06:30] VITALS: BP 111/57; PULSE 92; TEMP 97.7
[2021-04-11 08:08] LABS: BASO % 0.2 % (0-2.0); EOS % 3.9 % (0-4.5); HEMATOCRIT 34.6 % (32.4-45.2); HEMOGLOBIN 10.9 GM/dL (10.7-15.3); LYMPH % 20.2 % (8-40); MCHC 31.5 g/dl (32.0-36.0); MEAN CELL VOLUME 85.7 fl (80-96); MEAN PLT VOLUME 8.5 fl (7.5-11.1); MONO % 11.9 % (3.8-10.2); NEUT % 63.8 % (42.8-82.8); PLATELET COUNT 201 K/MM3 (134-434); RBC 4.04 M/mm3 (3.60-5.2); RDW 15.1 % (11.6-15.6); WHITE BLOOD COUNT 4.2 K/mm3 (4.0-10.0)
[2021-04-11 08:44] LABS: CHLORIDE 92 mmol/L (98-107); SODIUM 142 mmol/L (136-145)
[2021-04-11 08:49] LABS: ALBUMIN 2.5 g/dl (3.4-5.0); BLOOD UREA NITROGEN 13.9 mg/dL (7-18); CALCIUM 7.9 mg/dL (8.5-10.1)
[2021-04-11 08:51] LABS: GLUCOSE,RANDOM 77 mg/dL (74-106); MAGNESIUM 1.9 mg/dL (1.8-2.4)
[2021-04-11 08:53] LABS: CREATININE 0.3 mg/dL (0.55-1.3); SGOT/AST 15 U/L (15-37); SGPT/ALT 16 U/L (13-61)
[2021-04-11 08:54] LABS: BILIRUBIN,TOTAL 0.4 mg/dL (0.2-1); PHOSPHOROUS 3.3 mg/dL (2.5-4.9); TOT PROT 5.8 g/dl (6.4-8.2)
[2021-04-11 08:56] LABS: ALK PHOS 123 U/L (45-117)
[2021-04-11 09:06] LABS: ANION GAP 5 MMOL/L (8-16); CO2 > 45 mmol/L (21-32)
[2021-04-11] MEDS ORDERED: PT OWN MED DRAWER 7, Y5N ONE (10:17)
[2021-04-11] MEDS: POLYETHYLENE GLYCOL 3350 119 GM BTL PO SCH (10:20)
[2021-04-11] MEDS: METOPROLOL TARTRATE 50 MG TABLET (FP) PO SCH (10:20)
[2021-04-11] MEDS: DOCUSATE SODIUM 100 MG CAPSULE (FP) PO SCH (10:20)
[2021-04-11] MEDS: APIXABAN 5 MG TABLET PO SCH (10:20)
[2021-04-11] MEDS: GENTAMICIN SO4 0.1% TOPICAL OINTMENT 15 GM/TUBE TUBE TP SCH (10:20)
[2021-04-11] MEDS: MINERAL OIL/PET HY-PHL TOPICAL OINTMENT 454 GM JAR TP SCH (10:20)
[2021-04-11] MEDS: NYSTATIN POWDER 100,000 UNITS/GM - 15 GM TOPICAL POWDER TP SCH (10:20)
[2021-04-11] MEDS: BUDESONIDE/FORMETEROL FUMARATE 80/4.5 mcg INHALER IH SCH (10:21)
[2021-04-11] MEDS: ZINC OXIDE 20% TOPICAL OINTMENT 30 GM TUBE TP SCH (10:21)
[2021-04-11] MEDS: TIOTROPIUM BROMIDE 2.5 MCG (SPIRIVA) RESPIMAT INHALER IH SCH (10:21)
== END 2021-04-11 11:52 | disposition home health service (06) | DRG 603 ==
LOC: JER 15:22 → JERBED 17:28 → J8W 23:13
PROVIDERS: ADMIT Hospitalist; ATTEND Internal Medicine
DX: L03.115 Cellulitis of right lower limb (principal); E87.3 Alkalosis; Z68.42 Body mass index [BMI] 45.0-49.9, adult; E66.2 Morbid (severe) obesity with alveolar hypoventilation; J96.11 Chronic respiratory failure with hypoxia; I50.32 Chronic diastolic (congestive) heart failure; I87.2 Venous insufficiency (chronic) (peripheral); L27.0 Generalized skin eruption due to drugs and medicaments taken internally; I10 Essential (primary) hypertension; E78.5 Hyperlipidemia, unspecified; K21.9 Gastro-esophageal reflux disease without esophagitis; I48.91 Unspecified atrial fibrillation
CPT/HCPCS: 36415; 80048; 80053; 82550; 83605; 83735; 84100; 85025; 85027; 85610; 85730; 87040; 93005; 93010; 99285-25; C9803; J0131; J0878; U0003; U0005

== ENCOUNTER 2021-08-04 11:47 | Inpatient (IN) | payer OTHER, MEDICARE ==
[2021-08-04 12:14] VITALS: BMI 39.1
[2021-08-04 15:19] LABS: BASO % 0.7 % (0-2.0); EOS % 5.8 % (0-4.5); HEMATOCRIT 38.6 % (32.4-45.2); HEMOGLOBIN 12.5 GM/dL (10.7-15.3); LYMPH % 17.4 % (8-40); MCH 27.4 pg (25.7-33.7); MCHC 32.5 g/dl (32.0-36.0); MEAN CELL VOLUME 84.3 fl (80-96); MEAN PLT VOLUME 8.8 fl (7.5-11.1); MONO % 9.6 % (3.8-10.2); NEUT % 66.5 % (42.8-82.8); PLATELET COUNT 183 10^3/uL (134-434); RBC 4.58 M/mm3 (3.60-5.2); RDW 15.1 % (11.6-15.6); WHITE BLOOD COUNT 8.5 K/mm3 (4.0-10.0)
[2021-08-04 15:50] LABS: CHLORIDE 97 mmol/L (98-107); SODIUM 139 mmol/L (136-145)
[2021-08-04 15:52] LABS: CALCIUM 8.6 mg/dL (8.5-10.1); GLUCOSE,RANDOM 70 mg/dL (74-106)
[2021-08-04 15:53] LABS: BLOOD UREA NITROGEN 22.3 mg/dL (7-18); CO2 42 mmol/L (21-32)
[2021-08-04 15:56] LABS: CREATININE 0.6 mg/dL (0.55-1.3); SGOT/AST 52 U/L (15-37); SGPT/ALT 17 U/L (13-61)
[2021-08-04 15:57] LABS: BILIRUBIN,TOTAL 0.4 mg/dL (0.2-1)
[2021-08-04 15:58] LABS: ALK PHOS 83 U/L (45-117)
[2021-08-04 16:01] LABS: ANION GAP 0 MMOL/L (8-16)
[2021-08-04] MEDS ORDERED: ALBUTEROL SO4 HFA INHALER IH PRN (16:38)
[2021-08-04] MEDS ORDERED: PATIENT'S OWN MEDICATION (NON-FORMULARY) (Oxycodone Hcl/Acetaminophen [Endocet 7.5-325 Mg PO PRN ×2 (16:38→23:25)
[2021-08-04 17:10] LABS: PLATELET ESTIMATE NORMAL
[2021-08-04 17:46] LABS: ALBUMIN 2.9 g/dl (3.4-5.0); BLOOD UREA NITROGEN 20.4 mg/dL (7-18); CALCIUM 8.7 mg/dL (8.5-10.1); CHLORIDE 98 mmol/L (98-107); GLUCOSE,RANDOM 93 mg/dL (74-106); SODIUM 143 mmol/L (136-145)
[2021-08-04 17:48] LABS: CREATININE 0.5 mg/dL (0.55-1.3); SGPT/ALT 15 U/L (13-61)
[2021-08-04 17:49] LABS: SGOT/AST 10 U/L (15-37)
[2021-08-04 17:50] LABS: BILIRUBIN,TOTAL 0.4 mg/dL (0.2-1); TOT PROT 6.4 g/dl (6.4-8.2)
[2021-08-04 17:51] LABS: ALK PHOS 85 U/L (45-117)
[2021-08-04] MEDS ORDERED: AZTREONAM 2 GM/10 ML SYRINGE (RESTRICTED TO ID) IVPUSH SCH (18:00)
[2021-08-04 18:01] LABS: ANION GAP 0 MMOL/L (8-16); CO2 > 45 mmol/L (21-32)
[2021-08-04] MEDS ORDERED: AZTREONAM 1 GM VIAL (RESTRICTED TO ID) ONE (19:42)
[2021-08-04] MEDS: AZTREONAM 2 GM in DEXTROSE 5%-WATER 100 ML IVPB SCH (21:30)
[2021-08-04] MEDS ORDERED: PATIENT'S OWN MEDICATION (NON-FORMULARY) (Simvastatin [Simvastatin] 10 MG Tablet) PO SCH (22:00)
[2021-08-04] MEDS: ATORVASTATIN CA 10 MG TABLET (FP) PO SCH (23:04)
[2021-08-04] MEDS: APIXABAN 5 MG TABLET PO SCH (23:04)
[2021-08-04] MEDS: METOPROLOL TARTRATE 50 MG TABLET (FP) PO SCH (23:04)
[2021-08-04] MEDS: GABAPENTIN 400 MG CAPSULE PO SCH (23:04)
[2021-08-04] MEDS: GENTAMICIN SO4 0.1% TOPICAL OINTMENT 15 GM/TUBE TUBE TP SCH (23:05)
[2021-08-04] MEDS: NYSTATIN POWDER 100,000 UNITS/GM - 15 GM TOPICAL POWDER TP SCH (23:05)
[2021-08-04] MEDS: BUDESONIDE/FORMETEROL FUMARATE 80/4.5 mcg INHALER IH SCH (23:06)
[2021-08-04] MEDS: ZINC OXIDE 20% TOPICAL OINTMENT 30 GM TUBE TP SCH (23:06)
[2021-08-05] MEDS ORDERED: ACETAMINOPHEN 325 MG TABLET (FP) PO ONE ×2 (00:05→06:54)
[2021-08-05] MEDS: AZTREONAM 2 GM in DEXTROSE 5%-WATER 100 ML IVPB SCH (03:53)
[2021-08-05] MEDS: FUROSEMIDE 40 MG TABLET (FP) PO SCH ×2 (07:00→13:06)
[2021-08-05] MEDS: GABAPENTIN 400 MG CAPSULE PO SCH ×3 (07:00→21:26)
[2021-08-05 09:58] LABS: BASO % 0.5 % (0-2.0); EOS % 3.1 % (0-4.5); HEMATOCRIT 37.1 % (32.4-45.2); HEMOGLOBIN 12.1 GM/dL (10.7-15.3); LYMPH % 7.9 % (8-40); MCH 27.7 pg (25.7-33.7); MCHC 32.5 g/dl (32.0-36.0); MEAN CELL VOLUME 85.3 fl (80-96); MEAN PLT VOLUME 7.9 fl (7.5-11.1); MONO % 4.7 % (3.8-10.2); NEUT % 83.8 % (42.8-82.8); PLATELET COUNT 157 10^3/uL (134-434); RBC 4.35 M/mm3 (3.60-5.2); RDW 14.9 % (11.6-15.6); WHITE BLOOD COUNT 8.6 K/mm3 (4.0-10.0)
[2021-08-05] MEDS ORDERED: PATIENT'S OWN MEDICATION (NON-FORMULARY) (Tiotropium Bromide [Spiriva] 18 MCG Cap.W.Dev) PO SCH (10:00)
[2021-08-05] MEDS ORDERED: AZTREONAM 2 GM in DEXTROSE 5%-WATER 100 ML IVPB SCH (10:00)
[2021-08-05 10:24] LABS: CALCIUM 8.2 mg/dL (8.5-10.1)
[2021-08-05 10:25] LABS: ALBUMIN 2.5 g/dl (3.4-5.0)
[2021-08-05 10:26] LABS: BLOOD UREA NITROGEN 21.2 mg/dL (7-18)
[2021-08-05] MEDS: ZINC OXIDE 20% TOPICAL OINTMENT 30 GM TUBE TP SCH ×2 (10:27→21:31)
[2021-08-05] MEDS: GENTAMICIN SO4 0.1% TOPICAL OINTMENT 15 GM/TUBE TUBE TP SCH ×2 (10:27→21:30)
[2021-08-05 10:28] LABS: CREATININE 0.5 mg/dL (0.55-1.3)
[2021-08-05] MEDS: APIXABAN 5 MG TABLET PO SCH ×2 (10:28→21:26)
[2021-08-05] MEDS: METOPROLOL TARTRATE 50 MG TABLET (FP) PO SCH ×2 (10:28→21:26)
[2021-08-05] MEDS: NYSTATIN POWDER 100,000 UNITS/GM - 15 GM TOPICAL POWDER TP SCH ×2 (10:28→21:31)
[2021-08-05] MEDS: BUDESONIDE/FORMETEROL FUMARATE 80/4.5 mcg INHALER IH SCH ×2 (10:28→21:31)
[2021-08-05] MEDS: TIOTROPIUM BROMIDE 2.5 MCG (SPIRIVA) RESPIMAT INHALER IH SCH (10:28)
[2021-08-05 10:29] LABS: BILIRUBIN,TOTAL 0.5 mg/dL (0.2-1); TOT PROT 5.8 g/dl (6.4-8.2)
[2021-08-05] MEDS: ATORVASTATIN CA 10 MG TABLET (FP) PO SCH (21:25)
[2021-08-05] MEDS: DOCUSATE SODIUM 100 MG CAPSULE (FP) PO SCH (21:26)
[2021-08-06] MEDS: oxyCODONE HCL 5 MG TABLET PO PRN ×4 (03:09→22:37)
[2021-08-06] MEDS: GABAPENTIN 400 MG CAPSULE PO SCH ×3 (06:32→22:08)
[2021-08-06] MEDS: FUROSEMIDE 40 MG TABLET (FP) PO SCH ×2 (06:32→14:52)
[2021-08-06] MEDS: APIXABAN 5 MG TABLET PO SCH ×2 (10:13→22:37)
[2021-08-06] MEDS: METOPROLOL TARTRATE 50 MG TABLET (FP) PO SCH ×2 (10:13→22:07)
[2021-08-06] MEDS: TIOTROPIUM BROMIDE 2.5 MCG (SPIRIVA) RESPIMAT INHALER IH SCH (10:17)
[2021-08-06] MEDS: ZINC OXIDE 20% TOPICAL OINTMENT 30 GM TUBE TP SCH ×2 (10:17→22:38)
[2021-08-06] MEDS: BUDESONIDE/FORMETEROL FUMARATE 80/4.5 mcg INHALER IH SCH ×2 (10:17→22:38)
[2021-08-06] MEDS: GENTAMICIN SO4 0.1% TOPICAL OINTMENT 15 GM/TUBE TUBE TP SCH ×2 (10:17→22:38)
[2021-08-06] MEDS: NYSTATIN POWDER 100,000 UNITS/GM - 15 GM TOPICAL POWDER TP SCH ×2 (10:17→22:38)
[2021-08-06] MEDS: ATORVASTATIN CA 10 MG TABLET (FP) PO SCH (22:37)
[2021-08-06] MEDS: DOCUSATE SODIUM 100 MG CAPSULE (FP) PO SCH (22:37)
[2021-08-07] MEDS: GABAPENTIN 400 MG CAPSULE PO SCH ×3 (06:49→22:53)
[2021-08-07] MEDS: FUROSEMIDE 40 MG TABLET (FP) PO SCH ×2 (06:49→14:00)
[2021-08-07] MEDS: METOPROLOL TARTRATE 50 MG TABLET (FP) PO SCH ×2 (10:14→22:54)
[2021-08-07] MEDS: APIXABAN 5 MG TABLET PO SCH ×2 (10:14→22:54)
[2021-08-07] MEDS: NYSTATIN POWDER 100,000 UNITS/GM - 15 GM TOPICAL POWDER TP SCH ×2 (10:14→22:55)
[2021-08-07] MEDS: BUDESONIDE/FORMETEROL FUMARATE 80/4.5 mcg INHALER IH SCH ×2 (10:15→22:55)
[2021-08-07] MEDS: TIOTROPIUM BROMIDE 2.5 MCG (SPIRIVA) RESPIMAT INHALER IH SCH (10:15)
[2021-08-07] MEDS: ZINC OXIDE 20% TOPICAL OINTMENT 30 GM TUBE TP SCH ×2 (10:23→22:54)
[2021-08-07] MEDS: GENTAMICIN SO4 0.1% TOPICAL OINTMENT 15 GM/TUBE TUBE TP SCH ×2 (10:24→22:56)
[2021-08-07] MEDS: oxyCODONE HCL 5 MG TABLET PO PRN (10:39)
[2021-08-07 11:37] LABS: HEMOGLOBIN 12.3 GM/dL (10.7-15.3); MCH 26.7 pg (25.7-33.7); MCHC 31.5 g/dl (32.0-36.0); MEAN CELL VOLUME 84.7 fl (80-96); PLATELET COUNT 143 10^3/uL (134-434); RDW 14.8 % (11.6-15.6)
[2021-08-07 11:51] LABS: CHLORIDE 93 mmol/L (98-107); SODIUM 139 mmol/L (136-145)
[2021-08-07 11:52] LABS: CALCIUM 8.2 mg/dL (8.5-10.1)
[2021-08-07 11:53] LABS: BLOOD UREA NITROGEN 16.2 mg/dL (7-18); GLUCOSE,RANDOM 92 mg/dL (74-106)
[2021-08-07 11:56] LABS: ANION GAP 2 MMOL/L (8-16); CO2 > 45 mmol/L (21-32); CREATININE 0.5 mg/dL (0.55-1.3)
[2021-08-07] MEDS ORDERED: PT OWN MED DRAWER 7, Y5N ONE (22:43)
[2021-08-07] MEDS: DOCUSATE SODIUM 100 MG CAPSULE (FP) PO SCH (22:51)
[2021-08-07] MEDS: ATORVASTATIN CA 10 MG TABLET (FP) PO SCH (22:54)
[2021-08-08] MEDS: GABAPENTIN 400 MG CAPSULE PO SCH ×2 (07:03→15:55)
[2021-08-08] MEDS: FUROSEMIDE 40 MG TABLET (FP) PO SCH ×2 (07:03→15:55)
[2021-08-08] MEDS: BUDESONIDE/FORMETEROL FUMARATE 80/4.5 mcg INHALER IH SCH (09:26)
[2021-08-08] MEDS: TIOTROPIUM BROMIDE 2.5 MCG (SPIRIVA) RESPIMAT INHALER IH SCH (09:26)
[2021-08-08] MEDS: APIXABAN 5 MG TABLET PO SCH (09:26)
[2021-08-08] MEDS: GENTAMICIN SO4 0.1% TOPICAL OINTMENT 15 GM/TUBE TUBE TP SCH (09:26)
[2021-08-08] MEDS: METOPROLOL TARTRATE 50 MG TABLET (FP) PO SCH (09:26)
[2021-08-08] MEDS: NYSTATIN POWDER 100,000 UNITS/GM - 15 GM TOPICAL POWDER TP SCH (09:26)
[2021-08-08 15:11] VITALS: BP 150/74; PULSE 94; TEMP 97.2
== END 2021-08-08 17:07 | disposition home health service (06) | DRG 603 ==
LOC: JER 11:47 → JERBED 16:50 → J7W 21:41
PROVIDERS: ADMIT Internal Medicine; ATTEND Internal Medicine
DX: L03.115 Cellulitis of right lower limb (principal); I50.32 Chronic diastolic (congestive) heart failure; E66.2 Morbid (severe) obesity with alveolar hypoventilation; Z68.41 Body mass index [BMI] 40.0-44.9, adult; I48.20 Chronic atrial fibrillation, unspecified; L03.116 Cellulitis of left lower limb; M35.00 Sjogren syndrome, unspecified; I11.0 Hypertensive heart disease with heart failure; J44.9 Chronic obstructive pulmonary disease, unspecified; M06.9 Rheumatoid arthritis, unspecified; E78.5 Hyperlipidemia, unspecified; M48.00 Spinal stenosis, site unspecified; I87.2 Venous insufficiency (chronic) (peripheral); K76.0 Fatty (change of) liver, not elsewhere classified; K21.9 Gastro-esophageal reflux disease without esophagitis
CPT/HCPCS: 36415; 71045-TC-FY; 80048; 80053; 82550; 85025; 85027; 86140; 87040; 93005; 93010; 99285-25; C9803; U0003; U0005

== ENCOUNTER 2021-08-25 12:23 | Emergency (ER) | payer OTHER, MEDICARE ==
[2021-08-25 14:10] VITALS: BMI 54.8
[2021-08-25 15:32] LABS: BASO % 0.3 % (0-2.0); EOS % 4.5 % (0-4.5); HEMATOCRIT 40.5 % (32.4-45.2); HEMOGLOBIN 12.9 GM/dL (10.7-15.3); LYMPH % 14.8 % (8-40); MCH 27.1 pg (25.7-33.7); MCHC 31.8 g/dl (32.0-36.0); MEAN CELL VOLUME 85.3 fl (80-96); MEAN PLT VOLUME 7.5 fl (7.5-11.1); MONO % 8.4 % (3.8-10.2); PLATELET COUNT 196 10^3/uL (134-434); RBC 4.75 M/mm3 (3.60-5.2); RDW 15.4 % (11.6-15.6)
[2021-08-25 16:12] LABS: ALBUMIN 3.1 g/dl (3.4-5.0); BLOOD UREA NITROGEN 20.1 mg/dL (7-18); CALCIUM 8.6 mg/dL (8.5-10.1)
[2021-08-25 16:14] LABS: CREATININE 0.5 mg/dL (0.55-1.3)
[2021-08-25 16:15] LABS: BILIRUBIN,TOTAL 0.5 mg/dL (0.2-1)
[2021-08-26 01:33] VITALS: BP 125/52; PULSE 84; TEMP 98.2
== END 2021-08-26 05:43 | disposition home or self-care (01) ==
LOC: JER 12:23
DX: I87.2 Venous insufficiency (chronic) (peripheral) (principal)
CPT/HCPCS: 36415; 80053; 85025; 99283-25

== ENCOUNTER 2022-05-04 13:10 | Inpatient (IN) | payer OTHER, MEDICARE ==
[2022-05-04] MEDS ORDERED: SODIUM CHLORIDE IVPB ONE ×4 (14:05→17:00)
[2022-05-04] MEDS ORDERED: DAPTOMYCIN IVPB ONE ×4 (14:05→17:00)
[2022-05-04 15:06] LABS: BASO % 0.2 % (0-2.0); EOS % 1.6 % (0-4.5); HEMATOCRIT 37.8 % (32.4-45.2); HEMOGLOBIN 11.8 GM/dL (10.7-15.3); LYMPH % 9.7 % (8-40); MCH 25.3 pg (25.7-33.7); MCHC 31.3 g/dl (32.0-36.0); MEAN CELL VOLUME 80.7 fl (80-96); MONO % 11.6 % (3.8-10.2); NEUT % 76.9 % (42.8-82.8); PLATELET COUNT 177 10^3/uL (134-434); RBC 4.68 M/mm3 (3.60-5.2); RDW 15.5 % (11.6-15.6); WHITE BLOOD COUNT 5.8 K/mm3 (4.0-10.0)
[2022-05-04 15:16] LABS: CALCIUM 8.3 mg/dL (8.5-10.1)
[2022-05-04 15:17] LABS: ALBUMIN 2.8 g/dl (3.4-5.0); BLOOD UREA NITROGEN 21.6 mg/dL (7-18)
[2022-05-04 15:20] LABS: CREATININE 0.6 mg/dL (0.55-1.3)
[2022-05-04 15:21] LABS: BILIRUBIN,TOTAL 0.4 mg/dL (0.2-1); TOT PROT 6.8 g/dl (6.4-8.2)
[2022-05-04 15:42] LABS: ERYTHROCYTE SEDIMENTATION RATE 78 mm/hr (0-30)
[2022-05-04] MEDS ORDERED: ENOXAPARIN NA (PORCINE) 40 MG/0.4 ML DISP.SYRIN SQ SCH (17:15)
[2022-05-04 18:02] VITALS: BMI 39.1
[2022-05-04] MEDS ORDERED: ACETAMINOPHEN 325 MG TABLET (FP) PO ONE (20:38)
[2022-05-04] MEDS: NYSTATIN 100,000 UNIT/GM TOPICAL CREAM 15 GM TUBE TP SCH (21:28)
[2022-05-04] MEDS: GABAPENTIN 400 MG CAPSULE PO SCH (21:28)
[2022-05-04] MEDS: ATORVASTATIN CA 10 MG TABLET (FP) PO SCH (21:28)
[2022-05-04] MEDS: METOPROLOL TARTRATE 50 MG TABLET (FP) PO SCH (21:28)
[2022-05-04] MEDS: ZINC OXIDE 20% TOPICAL OINTMENT 30 GM TUBE TP SCH (21:29)
[2022-05-05] MEDS: GABAPENTIN 400 MG CAPSULE PO SCH ×3 (06:27→21:06)
[2022-05-05 08:33] LABS: BASO % 0.3 % (0-2.0); EOS % 2.8 % (0-4.5); HEMATOCRIT 37.2 % (32.4-45.2); HEMOGLOBIN 11.6 GM/dL (10.7-15.3); LYMPH % 21.4 % (8-40); MCH 25.1 pg (25.7-33.7); MCHC 31.3 g/dl (32.0-36.0); MEAN CELL VOLUME 80.4 fl (80-96); MEAN PLT VOLUME 8.5 fl (7.5-11.1); MONO % 12.9 % (3.8-10.2); NEUT % 62.6 % (42.8-82.8); PLATELET COUNT 166 10^3/uL (134-434); RBC 4.63 M/mm3 (3.60-5.2); RDW 15.4 % (11.6-15.6); WHITE BLOOD COUNT 4.8 K/mm3 (4.0-10.0)
[2022-05-05 09:02] LABS: ALBUMIN 2.7 g/dl (3.4-5.0); CALCIUM 8.4 mg/dL (8.5-10.1)
[2022-05-05 09:03] LABS: BLOOD UREA NITROGEN 18.1 mg/dL (7-18); MAGNESIUM 2.1 mg/dL (1.8-2.4)
[2022-05-05 09:05] LABS: CREATININE 0.5 mg/dL (0.55-1.3); PHOSPHOROUS 3.9 mg/dL (2.5-4.9)
[2022-05-05 09:07] LABS: BILIRUBIN,TOTAL 0.4 mg/dL (0.2-1); TOT PROT 6.3 g/dl (6.4-8.2)
[2022-05-05] MEDS: ZINC OXIDE 20% TOPICAL OINTMENT 30 GM TUBE TP SCH ×2 (10:59→21:08)
[2022-05-05] MEDS: FUROSEMIDE 40 MG TABLET (FP) PO SCH (10:59)
[2022-05-05] MEDS: APIXABAN 5 MG TABLET PO SCH ×2 (10:59→21:06)
[2022-05-05] MEDS: METOPROLOL TARTRATE 50 MG TABLET (FP) PO SCH ×2 (10:59→21:07)
[2022-05-05] MEDS: NYSTATIN 100,000 UNIT/GM TOPICAL CREAM 15 GM TUBE TP SCH ×2 (11:01→21:07)
[2022-05-05] MEDS: CEFTAROLINE FOSAMIL ACETATE 600 MG in DEXTROSE 5%-WATER - 100 ML IVPB SCH ×2 (11:05→21:08)
[2022-05-05] MEDS ORDERED: POTASSIUM CHLORIDE TABS 20 MEQ TABLET.ER (FP) PO ONE (11:54)
[2022-05-05] MEDS: ACETAMINOPHEN 325 MG TABLET (FP) PO PRN (21:05)
[2022-05-05] MEDS: ATORVASTATIN CA 10 MG TABLET (FP) PO SCH (21:06)
[2022-05-05 22:53] LABS: EPI CELLS 3 /uL (0-25.1); HYALINE CASTS 0 /uL (0-3.1); URINE APPEARANCE CLEAR; URINE BACTERIA 7823 /uL (0-1359); URINE BILIRUBIN NEGATIVE (NEGATIVE); URINE COLOR YELLOW; URINE GLUCOSE (UA) NEGATIVE (NEGATIVE); URINE KETONE NEGATIVE (NEGATIVE); URINE LEUK ESTERASE TRACE (NEGATIVE); URINE NITRITE POSITIVE (NEGATIVE); URINE PROTEIN NEGATIVE (NEGATIVE); URINE RBC 6 /uL (0-23.9); URINE UROBILINOGEN 0.2 mg/dL (0.2-1.0); URINE WBC 32 /uL (0-25.8)
[2022-05-06] MEDS: GABAPENTIN 400 MG CAPSULE PO SCH ×3 (05:44→21:40)
[2022-05-06] MEDS: ACETAMINOPHEN 325 MG TABLET (FP) PO PRN ×2 (08:24→20:32)
[2022-05-06 08:25] LABS: BASO % 0.4 % (0-2.0); CHLORIDE 96 mmol/L (98-107); HEMATOCRIT 37.7 % (32.4-45.2); HEMOGLOBIN 11.9 GM/dL (10.7-15.3); LYMPH % 21.7 % (8-40); MCH 25.4 pg (25.7-33.7); MCHC 31.5 g/dl (32.0-36.0); MEAN CELL VOLUME 80.9 fl (80-96); MEAN PLT VOLUME 8.9 fl (7.5-11.1); MONO % 11.7 % (3.8-10.2); NEUT % 62.2 % (42.8-82.8); PLATELET COUNT 179 10^3/uL (134-434); RBC 4.66 M/mm3 (3.60-5.2); RDW 15.4 % (11.6-15.6); SODIUM 143 mmol/L (136-145)
[2022-05-06 08:28] LABS: ALBUMIN 2.8 g/dl (3.4-5.0); BLOOD UREA NITROGEN 17.2 mg/dL (7-18); CALCIUM 8.5 mg/dL (8.5-10.1); GLUCOSE,RANDOM 77 mg/dL (74-106)
[2022-05-06 08:31] LABS: CREATININE 0.6 mg/dL (0.55-1.3); SGOT/AST 28 U/L (15-37); SGPT/ALT 68 U/L (13-61)
[2022-05-06 08:33] LABS: BILIRUBIN,TOTAL 0.4 mg/dL (0.2-1); TOT PROT 6.5 g/dl (6.4-8.2)
[2022-05-06 08:34] LABS: ALK PHOS 182 U/L (45-117)
[2022-05-06 08:40] LABS: ANION GAP 1 MMOL/L (8-16); CO2 > 45 mmol/L (21-32)
[2022-05-06] MEDS: NYSTATIN 100,000 UNIT/GM TOPICAL CREAM 15 GM TUBE TP SCH ×2 (10:14→21:41)
[2022-05-06] MEDS: APIXABAN 5 MG TABLET PO SCH ×2 (10:14→21:41)
[2022-05-06] MEDS: METOPROLOL TARTRATE 50 MG TABLET (FP) PO SCH ×2 (10:14→21:41)
[2022-05-06] MEDS: FUROSEMIDE 40 MG TABLET (FP) PO SCH (10:14)
[2022-05-06] MEDS: CEFTAROLINE FOSAMIL ACETATE 600 MG in DEXTROSE 5%-WATER - 100 ML IVPB SCH ×2 (10:17→21:41)
[2022-05-06] MEDS: ZINC OXIDE 20% TOPICAL OINTMENT 30 GM TUBE TP SCH ×2 (13:00→21:41)
[2022-05-06] MEDS: ATORVASTATIN CA 10 MG TABLET (FP) PO SCH (21:40)
[2022-05-07] MEDS: GABAPENTIN 400 MG CAPSULE PO SCH ×3 (05:36→22:24)
[2022-05-07 08:54] LABS: BASO % 0.5 % (0-2.0); EOS % 3.9 % (0-4.5); HEMATOCRIT 34.1 % (32.4-45.2); HEMOGLOBIN 10.5 GM/dL (10.7-15.3); LYMPH % 17.4 % (8-40); MCHC 30.9 g/dl (32.0-36.0); MEAN CELL VOLUME 80.9 fl (80-96); MEAN PLT VOLUME 8.8 fl (7.5-11.1); MONO % 10.2 % (3.8-10.2); PLATELET COUNT 183 10^3/uL (134-434); RBC 4.21 M/mm3 (3.60-5.2); RDW 15.6 % (11.6-15.6); WHITE BLOOD COUNT 5.1 K/mm3 (4.0-10.0)
[2022-05-07 09:15] LABS: ALBUMIN 2.5 g/dl (3.4-5.0); CALCIUM 8.6 mg/dL (8.5-10.1)
[2022-05-07 09:16] LABS: BLOOD UREA NITROGEN 16.6 mg/dL (7-18)
[2022-05-07 09:18] LABS: CREATININE 0.5 mg/dL (0.55-1.3)
[2022-05-07 09:20] LABS: BILIRUBIN,TOTAL 0.3 mg/dL (0.2-1); TOT PROT 5.8 g/dl (6.4-8.2)
[2022-05-07] MEDS: METOPROLOL TARTRATE 50 MG TABLET (FP) PO SCH ×2 (09:57→22:24)
[2022-05-07] MEDS: APIXABAN 5 MG TABLET PO SCH ×2 (09:57→22:24)
[2022-05-07] MEDS: FUROSEMIDE 40 MG TABLET (FP) PO SCH (09:57)
[2022-05-07] MEDS: AMINO ACIDS/PROTEIN HYDROLYS 30 ML LIQUID.PKT PO SCH (09:57)
[2022-05-07] MEDS: NYSTATIN 100,000 UNIT/GM TOPICAL CREAM 15 GM TUBE TP SCH (09:58)
[2022-05-07] MEDS: CEFTAROLINE FOSAMIL ACETATE 600 MG in DEXTROSE 5%-WATER - 100 ML IVPB SCH ×2 (10:35→22:25)
[2022-05-07] MEDS: ZINC OXIDE 20% TOPICAL OINTMENT 30 GM TUBE TP SCH ×2 (10:36→22:25)
[2022-05-07] MEDS: NYSTATIN POWDER 100,000 UNITS/GM - 15 GM TOPICAL POWDER TP SCH (22:24)
[2022-05-07] MEDS: ATORVASTATIN CA 10 MG TABLET (FP) PO SCH (22:24)
[2022-05-08] MEDS: GABAPENTIN 400 MG CAPSULE PO SCH ×2 (05:57→13:10)
[2022-05-08 06:54] LABS: BASO % 0.4 % (0-2.0); EOS % 3.6 % (0-4.5); HEMATOCRIT 33.6 % (32.4-45.2); HEMOGLOBIN 10.6 GM/dL (10.7-15.3); LYMPH % 21.4 % (8-40); MCH 25.4 pg (25.7-33.7); MCHC 31.6 g/dl (32.0-36.0); MEAN CELL VOLUME 80.2 fl (80-96); MEAN PLT VOLUME 8.7 fl (7.5-11.1); MONO % 9.9 % (3.8-10.2); NEUT % 64.7 % (42.8-82.8); PLATELET COUNT 182 10^3/uL (134-434); RBC 4.19 M/mm3 (3.60-5.2); RDW 15.2 % (11.6-15.6); WHITE BLOOD COUNT 4.7 K/mm3 (4.0-10.0)
[2022-05-08 07:09] LABS: CHLORIDE 96 mmol/L (98-107); SODIUM 143 mmol/L (136-145)
[2022-05-08 07:13] LABS: GLUCOSE,RANDOM 90 mg/dL (74-106)
[2022-05-08 07:15] LABS: BLOOD UREA NITROGEN 15.3 mg/dL (7-18); CALCIUM 8.4 mg/dL (8.5-10.1)
[2022-05-08 07:19] LABS: CREATININE 0.5 mg/dL (0.55-1.3)
[2022-05-08 07:22] LABS: ANION GAP 2 MMOL/L (8-16); CO2 > 45 mmol/L (21-32)
[2022-05-08] MEDS: METOPROLOL TARTRATE 50 MG TABLET (FP) PO SCH (09:06)
[2022-05-08] MEDS: AMINO ACIDS/PROTEIN HYDROLYS 30 ML LIQUID.PKT PO SCH (09:06)
[2022-05-08] MEDS: APIXABAN 5 MG TABLET PO SCH (09:07)
[2022-05-08] MEDS: NYSTATIN POWDER 100,000 UNITS/GM - 15 GM TOPICAL POWDER TP SCH (09:07)
[2022-05-08] MEDS: FUROSEMIDE 40 MG TABLET (FP) PO SCH (09:07)
[2022-05-08] MEDS: CEFTAROLINE FOSAMIL ACETATE 600 MG in DEXTROSE 5%-WATER - 100 ML IVPB SCH (09:15)
[2022-05-08] MEDS: ZINC OXIDE 20% TOPICAL OINTMENT 30 GM TUBE TP SCH (09:20)
[2022-05-08] MEDS ORDERED: SULFAMETHOXAZOLE/TRIMETHOPRIM 800MG/160MG D.S. TABLET PO SCH ×2 (09:45→22:00)
[2022-05-08] MEDS ORDERED: SULFAMETHOXAZOLE/TRIMETHOPRIM 800MG/160MG D.S. TABLET PO ONE (12:00)
[2022-05-08 15:18] VITALS: BP 99/59; PULSE 90; TEMP 97.5
== END 2022-05-08 18:09 | disposition home health service (06) | DRG 603 ==
LOC: JER 13:10 → JERBED 16:29 → J4S 17:11
PROVIDERS: ADMIT Internal Medicine; ATTEND Internal Medicine
DX: L03.116 Cellulitis of left lower limb (principal); I50.32 Chronic diastolic (congestive) heart failure; E66.2 Morbid (severe) obesity with alveolar hypoventilation; I48.20 Chronic atrial fibrillation, unspecified; L03.115 Cellulitis of right lower limb; I11.0 Hypertensive heart disease with heart failure; E78.5 Hyperlipidemia, unspecified; I87.2 Venous insufficiency (chronic) (peripheral); M35.00 Sjogren syndrome, unspecified; Z99.81 Dependence on supplemental oxygen; R79.89 Other specified abnormal findings of blood chemistry; M79.3 Panniculitis, unspecified; K76.0 Fatty (change of) liver, not elsewhere classified; L30.4 Erythema intertrigo; N28.89 Other specified disorders of kidney and ureter; R82.71 Bacteriuria; E87.6 Hypokalemia; Z68.39 Body mass index [BMI] 39.0-39.9, adult
CPT/HCPCS: 36415; 76705-TC; 80048; 80053; 81003; 82962; 83735; 84100; 84443; 85025; 85651; 86140; 87040; 87086; 87186; 93005; 93010; 99285-25; C9803-CS; J0878; U0003; U0005

== ENCOUNTER 2022-07-07 13:38 | Inpatient (IN) | payer OTHER, MEDICARE ==
[2022-07-07 14:27] VITALS: BMI 42.3
[2022-07-07 15:40] LABS: BASO % 0.6 % (0-2.0); EOS % 2.2 % (0-4.5); HEMATOCRIT 36.9 % (32.4-45.2); HEMOGLOBIN 11.8 GM/dL (10.7-15.3); LYMPH % 16.1 % (8-40); MCH 24.6 pg (25.7-33.7); MCHC 32.1 g/dl (32.0-36.0); MEAN CELL VOLUME 76.7 fl (80-96); MEAN PLT VOLUME 6.9 fl (7.5-11.1); MONO % 11.6 % (3.8-10.2); NEUT % 69.5 % (42.8-82.8); PLATELET COUNT 227 10^3/uL (134-434); RBC 4.81 M/mm3 (3.60-5.2); RDW 16.3 % (11.6-15.6); WHITE BLOOD COUNT 6.4 K/mm3 (4.0-10.0)
[2022-07-07 15:43] LABS: VENOUS BASE EXCESS 11.3 mmol/L (-2-2); VENOUS O2 SATURATION 26.2 % (70-80); VENOUS PH 7.289 (7.310-7.410)
[2022-07-07 15:44] LABS: VENOUS PCO2 88.3 mmHg (38-52)
[2022-07-07 15:53] LABS: CHLORIDE 98 mmol/L (98-107); SODIUM 138 mmol/L (136-145)
[2022-07-07 15:54] LABS: CALCIUM 8.7 mg/dL (8.5-10.1)
[2022-07-07 15:55] LABS: ALBUMIN 2.8 g/dl (3.4-5.0); BLOOD UREA NITROGEN 18.1 mg/dL (7-18); CO2 39 mmol/L (21-32); GLUCOSE,RANDOM 75 mg/dL (74-106)
[2022-07-07 15:58] LABS: CREATININE 0.6 mg/dL (0.55-1.3); SGOT/AST 59 U/L (15-37); SGPT/ALT 17 U/L (13-61)
[2022-07-07 16:00] LABS: BILIRUBIN,TOTAL 0.5 mg/dL (0.2-1); TOT PROT 7.5 g/dl (6.4-8.2)
[2022-07-07 16:01] LABS: ALK PHOS 129 U/L (45-117)
[2022-07-07 16:03] LABS: N-TERMINAL BNP 2084.2 pg/ml (5-450)
[2022-07-07 16:14] LABS: ANION GAP 1 MMOL/L (8-16)
[2022-07-07] MEDS ORDERED: ALBUTEROL SO4 2.5/IPRATROPIUM 0.5 INH SOL 3 ML VIAL.NEB. NEB ONE ×2 (17:11→17:34)
[2022-07-07] MEDS ORDERED: ACETAMINOPHEN 1000 MG/100 ML BAG IVPB ONE (18:07)
[2022-07-07 18:08] LABS: BLOOD UREA NITROGEN 17.1 mg/dL (7-18); CALCIUM 8.5 mg/dL (8.5-10.1)
[2022-07-07 18:09] LABS: ALBUMIN 2.8 g/dl (3.4-5.0)
[2022-07-07 18:12] LABS: CREATININE 0.5 mg/dL (0.55-1.3)
[2022-07-07 18:13] LABS: BILIRUBIN,TOTAL 0.4 mg/dL (0.2-1); TOT PROT 6.9 g/dl (6.4-8.2)
[2022-07-07] MEDS ORDERED: ACETAMINOPHEN INJECTION 100 ML IVPB ONE (18:13)
[2022-07-07] MEDS ORDERED: FUROSEMIDE 40 MG/4 ML INJECTABLE VIAL IVPUSH ONE (21:50)
[2022-07-07] MEDS ORDERED: ALBUTEROL SO4 0.083% IH SOL 2.5 MG/3 ML VIAL.NEB. NEB PRN (21:54)
[2022-07-07] MEDS ORDERED: PATIENT'S OWN MEDICATION (NON-FORMULARY) (Simvastatin [Simvastatin] 10 MG Tablet) PO SCH (22:00)
[2022-07-07] MEDS ORDERED: FUROSEMIDE 40 MG/4 ML INJECTABLE VIAL ONE (22:36)
[2022-07-08] MEDS: GABAPENTIN 400 MG CAPSULE PO SCH ×3 (01:17→21:53)
[2022-07-08] MEDS: METOPROLOL TARTRATE 50 MG TABLET (FP) PO SCH ×3 (01:17→21:53)
[2022-07-08] MEDS: APIXABAN 5 MG TABLET PO SCH ×3 (01:17→21:53)
[2022-07-08] MEDS: ACETAMINOPHEN 325 MG TABLET (FP) PO PRN (03:09)
[2022-07-08] MEDS ORDERED: oxyCODONE HCL 5 MG TABLET PO ONE (04:49)
[2022-07-08] MEDS: INSULIN SLIDING SCALE (NOVOLOG) 1 VIAL SQ SCH ×4 (06:45→21:54)
[2022-07-08] MEDS: ALBUTEROL SO4 2.5/IPRATROPIUM 0.5 INH SOL 3 ML VIAL.NEB. NEB SCH ×4 (07:56→20:04)
[2022-07-08 08:09] LABS: ARTERIAL BLOOD GAS BASE EXCESS 11.6 mmol/L (-2-2); ARTERIAL BLOOD GAS PO2 87.1 mmHg (80-100); ARTERIAL BLOOD GAS pH 7.368 (7.350-7.450)
[2022-07-08 08:10] LABS: ALLENS TEST POSITIVE; VENT MODE S/T
[2022-07-08 08:11] LABS: VENT RATE 14
[2022-07-08 09:12] LABS: BASO % 0.4 % (0-2.0); EOS % 2.3 % (0-4.5); HEMOGLOBIN 10.6 GM/dL (10.7-15.3); LYMPH % 19.8 % (8-40); MCH 23.9 pg (25.7-33.7); MEAN PLT VOLUME 7.7 fl (7.5-11.1); MONO % 10.6 % (3.8-10.2); NEUT % 66.9 % (42.8-82.8); PLATELET COUNT 217 10^3/uL (134-434); RBC 4.42 M/mm3 (3.60-5.2); RDW 16.6 % (11.6-15.6); WHITE BLOOD COUNT 4.9 K/mm3 (4.0-10.0)
[2022-07-08 09:15] VITALS: RESP 20
[2022-07-08] MEDS: CYANOCOBALAMIN 1,000 MCG TABLET (FP) PO SCH (09:29)
[2022-07-08] MEDS: FUROSEMIDE 40 MG/4 ML INJECTABLE VIAL IVPUSH SCH (09:29)
[2022-07-08] MEDS: TIOTROPIUM BROMIDE 2.5 MCG (SPIRIVA) RESPIMAT INHALER IH SCH (09:30)
[2022-07-08 09:35] LABS: CALCIUM 8.4 mg/dL (8.5-10.1)
[2022-07-08 09:36] LABS: ALBUMIN 2.5 g/dl (3.4-5.0); BLOOD UREA NITROGEN 15.2 mg/dL (7-18); MAGNESIUM 1.8 mg/dL (1.8-2.4)
[2022-07-08 09:39] LABS: CREATININE 0.4 mg/dL (0.55-1.3)
[2022-07-08 09:40] LABS: BILIRUBIN,TOTAL 0.4 mg/dL (0.2-1); TOT PROT 6.2 g/dl (6.4-8.2)
[2022-07-08] MEDS: ATORVASTATIN CA 10 MG TABLET (FP) PO SCH (21:53)
[2022-07-09] MEDS: ALBUTEROL SO4 2.5/IPRATROPIUM 0.5 INH SOL 3 ML VIAL.NEB. NEB SCH ×4 (04:40→20:37)
[2022-07-09] MEDS: INSULIN SLIDING SCALE (NOVOLOG) 1 VIAL SQ SCH ×4 (06:26→21:24)
[2022-07-09 08:12] LABS: HEMATOCRIT 34.2 % (32.4-45.2); HEMOGLOBIN 10.8 GM/dL (10.7-15.3); MCH 24.2 pg (25.7-33.7); MCHC 31.5 g/dl (32.0-36.0); MEAN CELL VOLUME 76.9 fl (80-96); MEAN PLT VOLUME 7.9 fl (7.5-11.1); PLATELET COUNT 222 10^3/uL (134-434); RBC 4.45 M/mm3 (3.60-5.2); RDW 16.1 % (11.6-15.6); WHITE BLOOD COUNT 4.7 K/mm3 (4.0-10.0)
[2022-07-09 08:20] LABS: CALCIUM 8.4 mg/dL (8.5-10.1)
[2022-07-09 08:21] LABS: ALBUMIN 2.5 g/dl (3.4-5.0); BLOOD UREA NITROGEN 15.3 mg/dL (7-18)
[2022-07-09 08:24] LABS: CREATININE 0.5 mg/dL (0.55-1.3)
[2022-07-09 08:26] LABS: BILIRUBIN,TOTAL 0.4 mg/dL (0.2-1); TOT PROT 6.4 g/dl (6.4-8.2)
[2022-07-09] MEDS: GABAPENTIN 400 MG CAPSULE PO SCH ×2 (11:18→21:23)
[2022-07-09] MEDS: CYANOCOBALAMIN 1,000 MCG TABLET (FP) PO SCH (11:19)
[2022-07-09] MEDS: FUROSEMIDE 40 MG/4 ML INJECTABLE VIAL IVPUSH SCH (11:19)
[2022-07-09] MEDS: METOPROLOL TARTRATE 50 MG TABLET (FP) PO SCH ×2 (11:19→21:23)
[2022-07-09] MEDS: APIXABAN 5 MG TABLET PO SCH ×2 (11:19→21:23)
[2022-07-09] MEDS: TIOTROPIUM BROMIDE 2.5 MCG (SPIRIVA) RESPIMAT INHALER IH SCH (11:20)
[2022-07-09] MEDS: ACETAMINOPHEN 325 MG TABLET (FP) PO PRN ×2 (11:35→21:23)
[2022-07-09] MEDS: ATORVASTATIN CA 10 MG TABLET (FP) PO SCH (21:23)
[2022-07-10] MEDS: ACETAMINOPHEN 325 MG TABLET (FP) PO PRN (04:39)
[2022-07-10] MEDS: ALBUTEROL SO4 2.5/IPRATROPIUM 0.5 INH SOL 3 ML VIAL.NEB. NEB SCH ×4 (08:40→20:08)
[2022-07-10] MEDS: INSULIN SLIDING SCALE (NOVOLOG) 1 VIAL SQ SCH ×4 (08:57→21:34)
[2022-07-10] MEDS: METOPROLOL TARTRATE 50 MG TABLET (FP) PO SCH ×2 (11:14→21:35)
[2022-07-10] MEDS: APIXABAN 5 MG TABLET PO SCH ×2 (11:14→21:32)
[2022-07-10] MEDS: FUROSEMIDE 40 MG/4 ML INJECTABLE VIAL IVPUSH SCH (11:14)
[2022-07-10] MEDS: CYANOCOBALAMIN 1,000 MCG TABLET (FP) PO SCH (11:15)
[2022-07-10] MEDS: GABAPENTIN 400 MG CAPSULE PO SCH ×2 (11:16→21:32)
[2022-07-10] MEDS: TIOTROPIUM BROMIDE 2.5 MCG (SPIRIVA) RESPIMAT INHALER IH SCH (11:17)
[2022-07-10 11:55] LABS: HEMATOCRIT 33.5 % (32.4-45.2); HEMOGLOBIN 10.4 GM/dL (10.7-15.3); MCHC 31.2 g/dl (32.0-36.0); MEAN PLT VOLUME 7.7 fl (7.5-11.1); PLATELET COUNT 199 10^3/uL (134-434); RBC 4.35 M/mm3 (3.60-5.2); RDW 16.3 % (11.6-15.6); WHITE BLOOD COUNT 4.6 K/mm3 (4.0-10.0)
[2022-07-10 12:12] LABS: CALCIUM 8.2 mg/dL (8.5-10.1)
[2022-07-10 12:13] LABS: ALBUMIN 2.4 g/dl (3.4-5.0); BLOOD UREA NITROGEN 18.6 mg/dL (7-18)
[2022-07-10 12:16] LABS: CREATININE 0.4 mg/dL (0.55-1.3)
[2022-07-10 12:17] LABS: BILIRUBIN,TOTAL 0.3 mg/dL (0.2-1)
[2022-07-10] MEDS ORDERED: LACTATED RINGERS SOLUTION 1,000 ML/1,000 ML INFUS.BAG IV STA (21:03)
[2022-07-10] MEDS ORDERED: LACTATED RINGERS SOLUTION 1,000 ML/1,000 ML INFUS.BAG IV SCH (21:15)
[2022-07-10] MEDS: ATORVASTATIN CA 10 MG TABLET (FP) PO SCH (21:32)
[2022-07-11] MEDS: INSULIN SLIDING SCALE (NOVOLOG) 1 VIAL SQ SCH ×2 (06:56→12:42)
[2022-07-11 07:19] VITALS: BP 128/56; PULSE 105; TEMP 97.9
[2022-07-11] MEDS: ALBUTEROL SO4 2.5/IPRATROPIUM 0.5 INH SOL 3 ML VIAL.NEB. NEB SCH ×3 (07:24→15:42)
[2022-07-11 08:29] LABS: HEMATOCRIT 34.7 % (32.4-45.2); MCH 24.5 pg (25.7-33.7); MCHC 31.8 g/dl (32.0-36.0); MEAN PLT VOLUME 7.7 fl (7.5-11.1); PLATELET COUNT 220 10^3/uL (134-434); RDW 16.2 % (11.6-15.6); WHITE BLOOD COUNT 4.5 K/mm3 (4.0-10.0)
[2022-07-11 09:04] LABS: ALBUMIN 2.7 g/dl (3.4-5.0); CALCIUM 8.4 mg/dL (8.5-10.1)
[2022-07-11 09:05] LABS: BLOOD UREA NITROGEN 17.9 mg/dL (7-18)
[2022-07-11 09:07] LABS: CREATININE 0.5 mg/dL (0.55-1.3)
[2022-07-11 09:09] LABS: BILIRUBIN,TOTAL 0.5 mg/dL (0.2-1); TOT PROT 6.4 g/dl (6.4-8.2)
[2022-07-11] MEDS: GABAPENTIN 400 MG CAPSULE PO SCH (09:46)
[2022-07-11] MEDS: APIXABAN 5 MG TABLET PO SCH (09:46)
[2022-07-11] MEDS: FUROSEMIDE 40 MG/4 ML INJECTABLE VIAL IVPUSH SCH (09:46)
[2022-07-11] MEDS: METOPROLOL TARTRATE 50 MG TABLET (FP) PO SCH (09:47)
[2022-07-11] MEDS: CYANOCOBALAMIN 1,000 MCG TABLET (FP) PO SCH (09:47)
[2022-07-11] MEDS: TIOTROPIUM BROMIDE 2.5 MCG (SPIRIVA) RESPIMAT INHALER IH SCH (09:48)
[2022-07-11] MEDS: ACETAMINOPHEN 325 MG TABLET (FP) PO PRN (09:58)
== END 2022-07-11 16:15 | disposition home or self-care (01) | DRG 291 ==
LOC: JER 13:38 → JERBED 18:12 → J7W 07-08 02:29
PROVIDERS: ADMIT Internal Medicine; ATTEND Internal Medicine
DX: I11.0 Hypertensive heart disease with heart failure (principal); I50.33 Acute on chronic diastolic (congestive) heart failure; Z68.41 Body mass index [BMI] 40.0-44.9, adult; J96.12 Chronic respiratory failure with hypercapnia; L97.919 Non-pressure chronic ulcer of unspecified part of right lower leg with unspecified severity; E78.5 Hyperlipidemia, unspecified; I48.91 Unspecified atrial fibrillation; E66.01 Morbid (severe) obesity due to excess calories; M35.00 Sjogren syndrome, unspecified; K76.0 Fatty (change of) liver, not elsewhere classified; J44.9 Chronic obstructive pulmonary disease, unspecified; E87.5 Hyperkalemia; I87.2 Venous insufficiency (chronic) (peripheral); M54.50 Low back pain, unspecified; M85.88 Other specified disorders of bone density and structure, other site; M79.7 Fibromyalgia; E04.1 Nontoxic single thyroid nodule; G47.30 Sleep apnea, unspecified; N28.89 Other specified disorders of kidney and ureter; M54.10 Radiculopathy, site unspecified; M06.9 Rheumatoid arthritis, unspecified; E11.9 Type 2 diabetes mellitus without complications; I87.8 Other specified disorders of veins; Z96.653 Presence of artificial knee joint, bilateral; Z99.81 Dependence on supplemental oxygen; Z86.718 Personal history of other venous thrombosis and embolism; Z88.1 Allergy status to other antibiotic agents
CPT/HCPCS: 0241U-QW; 36415; 36600; 71045-TC-FY; 80053; 80162; 82728; 82803; 82962; 83540; 83550; 83735; 83880; 84443; 84466; 84484; 85025; 85027; 87040; 87081; 93005; 93010; 93306-TC; 94640; 94660; 99285-25